=== PATIENT | male | born 1955 | race Caucasian/White ===

== ENCOUNTER 2020-02-01 10:39 | Outpatient (REF) | payer MEDICARE, SELFPAY ==
[2020-02-01 13:29] LABS: Basophils Percent Auto 0.3 % (0-2); Eosinophils Absolute Auto 0.2 X10*3/uL (0.0-0.4); Eosinophils Percent Auto 3.4 % (0-4); Hematocrit 40.1 % (42-52); Hemoglobin 13.6 g/dl (14.0-18.0); Imm Gran Abs Auto 0.02 X10*3/uL (0.00-0.03); Imm Gran Pct Auto 0.3 % (0.0-0.4); Lymphocytes Percent Auto 17.7 % (20-40); MANUAL DIFF FLAG NO; Mean Corpuscular HGB Conc 33.9 g/dl (31.0-36.0); Mean Corpuscular Hemoglobin 32.2 pg (27.0-33.0); Mean Platelet Volume 9.2 fL (9.4-12.4); Monocytes Absolute Auto 0.6 X10*3/uL (0.1-1.2); Monocytes Percent Auto 10.5 % (2-11); Neutrophils Percent Auto 67.8 % (45-73); Platelet Count 325 X10*3/uL (160-400); Red Blood Count 4.22 X10*6/uL (4.60-5.80); Red Cell Distribution Width 11.9 % (11.0-16.0); White Blood Count 5.8 X10*3/uL (4.8-10.8)
[2020-02-01 14:07] LABS: Creatinine Urine 125.42 mg/dL; Microalbum/Creatinine Ratio Ur 62.1 ug/mg cr
[2020-02-01 14:13] LABS: Alanine Aminotransferase 46 U/L (0-40); Albumin Level 3.4 g/dL (3.5-5.0); Alkaline Phosphatase 164 U/L (39-117); Anion Gap 14 (12-20); Aspartate Amino Transferase 20 U/L (5-37); Bilirubin Total 0.9 mg/dL (0.0-1.0); Blood Urea Nitrogen 27 mg/dL (9-16); Calcium 8.8 mg/dL (8.4-10.2); Carbon Dioxide 28 mmol/L (22-29); Chloride 102 mmol/L (96-108); Cholesterol 187 mg/dL; Estimated Glomerular Filt Rate 58; Glucose Fasting 115 mg/dL (60-99); HDL Cholesterol 23 mg/dL; LDL Cholesterol Calculated 141 mg/dl; Potassium 4.8 mmol/l (3.3-5.1); Sodium 139 mmol/L (135-145); Total Protein 6.5 g/dL (6.5-8.0); Triglycerides 116 mg/dL
[2020-02-01 14:27] LABS: TSH reflex Free T4 4.35 mIU/mL (0.32-4.0)
[2020-02-01 15:01] LABS: Free T4 (Free Thyroxine) 1.01 ng/dL (0.71-1.85)
== END 2020-02-01 10:40 | disposition home or self-care (01) ==
LOC: HO.WFDLDS 10:39
PROVIDERS: PCP Family Medicine; Visit Provider Family Medicine
DX: Z00.00 Encounter for general adult medical examination without abnormal findings (principal); N18.2 Chronic kidney disease, stage 2 (mild); I12.9 Hypertensive chronic kidney disease with stage 1 through stage 4 chronic kidney disease, or unspecified chronic kidney disease; N17.9 Acute kidney failure, unspecified; I63.9 Cerebral infarction, unspecified; E78.5 Hyperlipidemia, unspecified
CPT/HCPCS: 36415; 80053; 80061; 82043; 84439; 84443; 85025

== ENCOUNTER 2020-02-07 | Outpatient (REF) | payer MEDICARE, SELFPAY | END 2020-02-07 00:01 | disposition home or self-care (01) | LOC: HO.LNP | PROVIDERS: Visit Provider Family Medicine | DX: T83.511A Infection and inflammatory reaction due to indwelling urethral catheter, initial encounter (principal) | CPT/HCPCS: 87086; 87088; 87186 ==

== ENCOUNTER 2020-02-07 18:07 | Emergency (ER) | payer MEDICARE, MEDICAID, SELFPAY ==
[2020-02-07 19:50] VITALS: BP 107/70; PULSE 78; RESP 14; TEMP 35.4; O2SAT 97; BMI 27.3
--- NOTE | 2020-02-07 21:15 | ED_ITS ---
HPI - Male Genitourinary General Chief complaint: Urogenital-Male Stated complaint: Catheter change Time Seen by Provider: 02/07/20 18:35 Source: patient and family Mode of arrival: ambulatory Limitations: no limitations History of Present Illness HPI Narrative: Patient comes to the emergency room requesting that his Walker catheter gets changed. Patient had a stroke approximately 2 months ago, patient has a Walker catheter since then. Patient moved from [place] 1 week ago. Patient is due for a catheter change. Patient was seen by his primary care physician today, instructed to come to the ED for a Walker change. Patient's PCP sent to the pharmacy a prescription of cephalexin for a known UTI, the family already picked up the antibiotic at home, the patient has not started yet taking antibiotic. Patient has no complaints, no abdominal pain, no flank pain. Related Data Previous Rx's Medication Instructions Recorded aspirin 81 mg tablet,delayed 81 mg PO DAILY 90 Days #90 tab 02/07/20 release atorvastatin 80 mg tablet 80 mg PO QPM 90 Days #90 tab 02/07/20 cephalexin 500 mg capsule 500 mg PO Q12H 10 Days #20 cap 02/07/20 hydralazine 25 mg tablet 25 mg PO TID 90 Days #270 tab 02/07/20 labetalol 100 mg tablet 100 mg PO BID 90 Days #180 tab 02/07/20 losartan 100 mg tablet 100 mg PO DAILY 90 Days #90 tab 02/07/20 nifedipine 30 mg tablet,extended 30 mg PO DAILY 90 Days #90 tab 02/07/20 release 24 hr rivaroxaban 2.5 mg tablet 2.5 mg PO BID 90 Days #180 tab 02/07/20 zinc oxide 13 % topical cream 1 appl TOPICAL BID-QID PRN 30 Days 02/07/20 #454 g Allergies Allergy/AdvReac Type Severity Reaction Status Date / Time No Known Allergies Allergy Verified 01/31/20 15:24 Review of Systems Review of Systems: Constitutional : No Weight loss, No Fever, No Chills, No Night Sweats, No Fatigue, No Malaise ENT/Mouth : No Hearing loss, No Ear Pain, No Nasal Congestion, No Sinus Pain, No Hoarseness, No sore throat, No Rhinorrhea, No Swallowing Difficulty Eyes: No Eye Pain, No Swelling, No Redness, No Foreign Body, No Discharge, No Vision Changes Cardiovascular : No Chest Pain, No SOB, No Dyspnea on Exertion, No Orthopnea, No Edema, No Palpitations Respiratory : No Cough, No Sputum, No Wheezing, No Smoke Exposure, No Dyspnea Gastrointestinal : No Nausea, No Vomiting, No Diarrhea, No Constipation, No abdominal Pain, No Hematochezia, No Melena Genitourinary : no irregular bleeding, No Dysuria, No Urinary Frequency, No Hematuria, No Urinary Incontinence, No Urgency, No Flank Pain, No Urinary Flow Changes, No Hesitancy Musculoskeletal : No joint pain, No Myalgias, No Joint Swelling Skin : No Skin Lesions, No rash Neuro : No Weakness, No Numbness, No Paresthesias, No Loss of Consciousness, No Dizziness, No Headache Psych : No Anxiety/Panic, No Depression, No SI/HI/AH/VH, No Social Issues, Heme/Lymph: No Bruising, No Bleeding,No Lymphadenopathy Endocrine : No Polyuria, No Polydipsia, No Temperature Intolerance [facility] Past Medical History Medical History (Updated 02/07/20 @ 22:13 by Susy Salazar MD) High cholesterol HTN (hypertension) Stroke Social History Social History Advance Directives: No Advance Directives Information Provided: Yes Physical Exam Vital Signs: Vital Signs: Last Vital Signs Temp 95.8 F L 02/07/20 19:50 Pulse 78 02/07/20 19:50 Resp 14 02/07/20 19:50 BP 107/70 02/07/20 19:50 Pulse Ox 97 02/07/20 19:50 Body Mass Index 27.3 Appearance: Alert. Oriented X3. No acute distress. Eyes: Pupils equal, round and reactive to light. ENT: Pharynx normal. Neck: Normal inspection. Neck supple. No lymph nodes noted. No crepitus CVS: Normal heart rate and rhythm. Pulses normal. Normal S1 and S2 Respiratory: No respiratory distress. Breath sounds normal. No Wheezing. No rales Abdomen: Soft and nontender. No rigidity. No distention. good BS x4 Urinary: Walker catheter in place Skin: Skin warm and dry. Normal skin color. Normal skin turgor. Extremities: No lower extremity edema. No lower extremity edema. No Lacerations. No Rash Neuro: Oriented X 3. No motor deficit. No sensory deficit. Moving all extermities. No slurred speech. Course Course Course Narrative: Walker catheter was changed, as mentioned above, patient already has antibiotics at home for his UTI. MDM - Male Genitourinary Lab Data Labs: Lab Results 02/07/20 Range/Units 21:29 Urine Color YELLOW Urine Appearance CLOUDY Urine pH 7.0 (5.0-8.0) Ur Specific [place] 1.015 (1.005-1.025) Urine Protein TRACE (NEG-TRACE) MG/DL Urine Glucose (UA) NEG (NEG) MG/DL Urine Ketones NEG (NEG) MG/DL Urine Blood TRACE (NEG) Urine Nitrite POS H (NEG) Ur Leukocyte Esterase 3+ H (NEG) Urine RBC 1-4 (0) /HPF Urine WBC 50-75 H (0-4) /HPF Ur Squamous Epith Cells TRACE /LPF Amorphous Sediment 1+ /LPF Urine Bacteria 3+ /LPF Discharge Plan Discharge Clinical Impression: Urinary catheter (Walker) change required Patient Disposition: Home, Self-Care Instructions: Walker Catheter Placement and Care (ED) Additional Instructions: Please start taking the antibiotics as instructed by your primary care physician. Insert discharge Prescriptions: No Action aspirin [Adult Low Dose Aspirin] 81 mg tablet,delayed release (DR/EC) 81 mg PO DAILY 90 Days Qty: 90 RF: 4 atorvastatin 80 mg tablet 80 mg PO QPM 90 Days Qty: 90 RF: 4 hydralazine 25 mg tablet 25 mg PO TID 90 Days Qty: 270 RF: 4 labetalol 100 mg tablet 100 mg PO BID 90 Days Qty: 180 RF: 4 losartan 100 mg tablet 100 mg PO DAILY 90 Days Qty: 90 RF: 4 nifedipine 30 mg tablet extended release 24hr 30 mg PO DAILY 90 Days Qty: 90 RF: 4 Xarelto 2.5 mg tablet 2.5 mg PO BID 90 Days Qty: 180 RF: 4 cephalexin [Keflex] 500 mg capsule 500 mg PO Q12H 10 Days Qty: 20 RF: 0 Desitin Rapid Relief 13 % cream 1 appl topical BID-QID PRN (Reason: skin irritation) 30 Days Qty: 454 RF: 0 Interventions: ED Discharge Assessment Last Done: 02/07/20 22:11
[2020-02-07 21:36] LABS: Glucose Urine UA NEG (NEG); Leukocyte Esterase Urine 3+ (NEG); Nitrite Urine POS (NEG); Specific Gravity - Urine 1.015 (1.005-1.025); Urine Blood TRACE (NEG); Urine Ketones NEG (NEG); Urine Protein TRACE MG/DL (NEG-TRACE)
[2020-02-07 21:45] LABS: Appearance Urine CLOUDY; Color Urine YELLOW
[2020-02-07 21:50] LABS: Amorphous Sediment Urine 1+ /LPF; Bacteria Urine 3+ /LPF; Squamous Epithelial Cell Urine TRACE /LPF; WBC Urine 50-75 /HPF (0-4)
== END 2020-02-07 22:29 | disposition home or self-care (01) ==
PROVIDERS: Physician Assistant; Emergency Provider Emergency Medicine
DX: Z46.6 Encounter for fitting and adjustment of urinary device (principal); I10 Essential (primary) hypertension
CPT/HCPCS: 51702; 81001; 87086; 87088; 87186; 99283

== ENCOUNTER 2020-03-04 14:32 | Outpatient (REF) | payer OTHER, SELFPAY ==
--- NOTE | 2020-03-04 14:34 | FL_ITS ---
EXAMINATION: XR BARIUM SWALLOW CLINICAL INFORMATION: Stroke. COMPARISON: None TECHNIQUE: Fluoroscopic guidance was provided for modified barium swallow performed by the speech and hearing department. FINDINGS: Modified barium swallow was performed following administration of thin and thick liquids and thickened liquid. There is significant retention in the vallecula with all media. No aspiration or penetration is seen. FLUOROSCOPY TIME: 2.3 minutes DOSE AREA PRODUCT: 2.3 lawson per centimeter squared. Total dose 7.7 mgy FL/FL barium swallow modified IMPRESSION: Significant retention seen with all administered liquids. No aspiration or penetration is seen. See speech and hearing report for detailed findings.
--- NOTE | 2020-03-11 17:23 | MHC.SL.POC ---
Name: Wyatt Boggs Date of : 1955 Age: 64 Status: Outpatient, Wheelchair Date of Registration: 03/04/20 Referring provider: Blake Faith M.D. Evaluating Clinician: Danielle Avery M.A. CCC-SURVEILLANCE SUPERVISOR Reason for Referral: Patient displays overt s/s of aspiration. Type of Treatment: 32498 Modified Barium Swallow Study Date of Plan of Treatment: 03/04/20 Onset of Symptoms/Illness: 01/05/20 Date Treatment Started: 03/04/20 Medical Diagnosis: Previous stroke 01/05/20, residual right hemiplegia, Walker catheter Speech & Language Primary Diagnosis:R13.12 Oropharyngeal Phase Dysphagia Speech & Language Secondary Diagnosis: R47.01 Aphasia Current (pre-evaluation) Intake/Diet: Route: PO Diet Grade: Puree Liquid Consistencies: Thin Pre-Study Functional Oral Intake Scale (FOIS): 5- Total oral intake of multiple consistencies requiring special preparation Pain: None reported at time of study SUBJECTIVE: Patient is a 64 year old man who was accompanied to this evaluation by his son, who reports being his primary patient service rep, and [id number]. Most of history obtained at this evaluation was provided by patient?s [id number]. Per family report, patient had a stroke on January 05, 2020 in [place] when visiting, and was discharged on the with hospice care. Patient has residual right side hemiplegia. Patient has a Walker catheter. Per [id number]?s report, patient was originally recommended rehabilitative services after his stroke, but instead was referred for homecare due to risks of the current COVID19 pandemic. Patient is immobile and wheelchairbound. Per family, he tolerates being in a wheelchair for one hour at most. He is nonverbal, and only vocalizes with grunts and groans. His family is unsure how much he understands because his responses to yes/no questions are very inconsistent. Patient?s family has been pureeing his food because he is unable to swallow solids. When given rice, which had been one of patient?s favorite foods previously, patient spits it out. He also spits out food if given too much. Patient?s family reports that he appears to tolerate liquids without difficulty. OBJECTIVE: Time-out: performed at 02:45 Evaluation Start: 02:30; Stop: 02:40 Patient Positioning: Seated 70-90 degrees Viewing Planes: LATERAL ONLY Contrast: MBSImP? Standardized Protocol using commercially prepared, standardized Barium viscosities, including: Varibar? THIN LIQUID (40% w/v, <15 cps) , Varibar? NECTAR (40% w/v, <150-450 cps) , Varibar? THIN HONEY (40% w/v, <800-1800 cps) , 1/2 Shortbread Cookie (1 x1 x.25 ) [facility] [id number] Results: Lip closure for intraoral bolus containment resulted in interlabial escape, without progression to the anterior lip. Tongue control during bolus hold resulted in posterior escape of less than half of the bolus. Bolus preparation and mastication was only minimal chewing/mashing, with the majority of the bolus unchewed. Bolus transport/lingual motion was with repetitive/disorganized motion of the tongue. Oral residue was a collection on oral structures. Initiation of the pharyngeal swallow was not visible at any level. Soft palate elevation resulted in no bolus between the soft palate and the pharyngeal wall. Laryngeal elevation was decreased, with partial superior movement of the thyroid cartilage/partial approximation of the arytenoids to the epiglottic petiole. Anterior hyoid excursion demonstrated partial anterior movement. Epiglottic movement resulted in complete inversion. Laryngeal vestibular closure was complete, as indicated by no air or contrast within the laryngeal vestibule at the height of the swallow. Pharyngeal stripping wave was present, but diminished. Pharyngeal contraction could not be determined due to logistical reasons not related to physiologic impairment. Pharyngoesophageal segment opening was completely distended for complete duration with no obstruction of bolus flow. Tongue base retraction resulted in no visible posterior motion of the the tongue base. Pharyngeal residue was a collection of residue within or on pharyngeal structures. Esophageal clearance in the upright position could not be assessed due to logistical reasons not related to physiologic impairment. Oral Impairment Score: 14 Pharyngeal Impairment Score: 9 (absence of score, component 13) Esophageal Impairment Score: --- (absence of score, component 17) Laryngeal Penetration and Aspiration: Neither penetration nor aspiration was observed in today's study with Cookie, Honey-thick, [place]-thick, Thin. ASSESSMENT: Patient?s [place] language is Grenadian. Directions for this exam were provided in Grenadian by bilingual clinician. Patient was also provided with consistent visual cues to swallow. However, patient did not follow commands due to reduced receptive language ability. This exam was conducted by radiologist and speech-language pathologist with patient sitting at 90 degree position for lateral view only. Patient was provided with 1:1 assistance feeding. The following liquid and solid consistencies were trialed: -honey thick liquid barium by spoon -nectar thick liquid barium by spoon and straw -thin liquid barium by spoon and straw -pureed solid (applesauce mixed with barium paste) -ground solid (chicken salad mixed with barium paste) Advanced solids were withheld due to oral phase impairments and impairments in receptive language, which would impact patient?s ability to implement compensatory strategies if needed. Patient displays severe oropharyngeal dysphagia, likely secondary to previous stroke, with impairments in the following components of swallow physiology: ORAL PHASE: -posterior escape of bolus for both solids and liquids -minimal chewing when given very small bite of chicken salad -repetitive posterior tongue motion -mild oral residue -no visible initiation of pharyngeal swallow trigger PHARYNGEAL PHASE: -partial laryngeal elevation with partial anterior hyoid movement -diminished pharyngeal stripping wave -no visible posterior tongue base movement -collection of bolus in valleculae Clinician Assessment: No aspiration or penetration evident with solid and liquid trials during this exam. Evident posterior escape of bolus, less than 50%, which pooled in valleculae. Patient displays significant delays in oral preparation. AP transport was delayed and characterized by repetitive posterior tongue movement. Patient?s pharyngeal swallow trigger was significantly delayed, taking 1-2 minutes and consistent cues to initiate. Entire bolus collected in valleculae with no visible initiation of swallow trigger at times despite verbal commands and visual cues to swallow. Patient was given dry spoon in attempt to elicit dry swallow, but this was not effective. Patient was given more food on a spoon and this successfully initiated swallow trigger. Noted improvement in timing of pharyngeal swallow when patient is given more on a spoon (full teaspoon amount). This puts patient at risk for aspiration before and after the swallow, and warrants intervention for dysphagia for continued family education/support, and review of compensatory strategies. Patient is not a candidate for pharyngeal strengthening exercises as he will likely exhibit difficulty following complex directions involved. Recommend continue PUREED solids and THIN liquids. Please refer to National Dysphagia Diet Level 1 (NDD1) for recommendations regarding food preparation. Improved initiation when patient was given full teaspoon amount versus half teaspoon amount. Strongly recommend aspiration precautions: -small bites -one bite at a time -palpate or watch for laryngeal elevation to ensure patient had swallowed before giving more bites -check oral cavity to ensure clearance -small sips -one sip at a time -optimal position at 90 degree angle during PO intake and for at least 30 minutes afterward -frequent oral care before and after each meal The following compensatory strategies have been used in therapy as well as in today's study and improved swallowing function: Rate of Ingestion Change decreased Oral Residue, Pharyngeal Residue Additional Swallow(s) per Bolus decreased Oral Residue, Pharyngeal Residue The following compensatory strategies appear to have had a negative impact on swallowing function: Bolus Volume Change (smaller/ half teaspoon amount) increased Pharyngeal Residue PLAN: Intake Recommendations: Route: PO Diet Grade: Puree Liquid Consistencies: Thin Post-Study Functional Oral Intake Scale (FOIS): 5- Total oral intake of multiple consistencies requiring special preparation Suggested Referrals: The patient might benefit from a referral to: -[facility]: Indication for Referral: speech therapy through [facility] for dysphagia and functional communication -Gastroenterology/ Nutrition Indication for Referral: assess nutrition needs -Neurology Indication for Referral: for ongoing care Therapy Recommendations: Therapy will be initiated Frequency per Week: 1 Number of Weeks: 8 Prognosis for Improvement: The prognosis for the patient to meet nutritional needs by mouth is guarded based on degree of impairment, stimulability for treatment. Nursing Home Goals: ? The patient will tolerate the least restrictive diet with a safe/efficient swallow to maintain adequate nutrition and hydration. ? The patient and/or family will participate in further education for swallowing goals. Short Term Goals: GOALS REGARDING DYSPHAGIA AND FUNCTIONAL COMMUNICATION TO BE UPDATED NEEDED PER SURVEILLANCE SUPERVISOR AT NEXT LEVEL OF CARE ([facility]) ? Diet - The patient will tolerate a pureed diet with thin liquids without signs or symptoms of penetration/aspiration 100% of the time. - The patient will participate in therapeutic PO trials with the SURVEILLANCE SUPERVISOR. ? Guidelines - The patient will comply with/recall the following guidelines/strategies 80% of the time with maximum cuing: Bolus Volume Change, Rate of Ingestion Change, Liquid Wash, Additional Swallow(s) per Bolus. ? Education - The patient, family, caregiver will verbalize/demonstrate understanding of the results of this evaluation, the above recommendations, and the swallowing guidelines. Clinician - Supplemental, Miscellaneous Communication: It is important to note MBSS objective studies are snapshots in time and Patient function might vary with factors such as time of day or concomitant medical conditions. For this reason, the final treatment plan for this patient should rest with their medical care team. Additional recommendations should be considered with the totality of the Patient in mind. Thank for the opportunity to participate in the care of this patient. If you have any questions about the content of this report, please contact the [facility] at [facility]. Education: Education regarding findings from today's study and plans for therapy were provided to Family/caregiver only through Verbal Instruction. Understanding was expressed by the Family/caregiver only. Recommendation for Speech Therapy: Speech Therapy through [facility] Text Comment: It is strongly recommended for patient to continue speech therapy through [facility]. Patient has 14/09 care provided by son and [id number]. Patient is immobile and wheelchair-bound. He is nonverbal as a result of his stroke in December. Due to increased medical needs, [facility] services appear to be most appropriate. Recommend speech therapy for DYSPHAGIA and FUNCTIONAL COMMUNICATION. Frequency/Duration: TBD after further assessment by [facility] Date Range for Service Requested: Timeline to reassess: 3 months Notes: Recommend continue PUREED solids and THIN liquids. Please refer to National Dysphagia Diet Level 1 (NDD1) for recommendations regarding food preparation. Improved initiation when patient was given full teaspoon amount versus half teaspoon amount. Strongly recommend aspiration precautions: -small bites -one bite at a time -palpate or watch for laryngeal elevation to ensure patient had swallowed before giving more bites -check oral cavity to ensure clearance -small sips -one sip at a time -optimal position at 90 degree angle during PO intake and for at least 30 minutes afterward -frequent oral care before and after each meal The following compensatory strategies have been used in therapy as well as in today's study and improved swallowing function: Rate of Ingestion Change decreased Oral Residue, Pharyngeal Residue Additional Swallow(s) per Bolus decreased Oral Residue, Pharyngeal Residue The following compensatory strategies appear to have had a negative impact on swallowing function: Bolus Volume Change (smaller/ half teaspoon amount) increased Pharyngeal Residue PLAN: Intake Recommendations: Route: PO Diet Grade: Puree Liquid Consistencies: Thin Post-Study Functional Oral Intake Scale (FOIS): 5- Total oral intake of multiple consistencies requiring special preparation Suggested Referrals: The patient might benefit from a referral to: -[facility]: Indication for Referral: speech therapy through [facility] for dysphagia and functional communication -Gastroenterology/ Nutrition Indication for Referral: assess nutrition needs -Neurology Indication for Referral: for ongoing care Therapy Recommendations: Therapy will be initiated Frequency per Week: 1 Number of Weeks: 8 Prognosis for Improvement: The prognosis for the patient to meet nutritional needs by mouth is guarded based on degree of impairment, stimulability for treatment. Goal #1 : Nursing Home Goals: ? The patient will tolerate the least restrictive diet with a safe/efficient swallow to maintain adequate nutrition and hydration. ? The patient and/or family will participate in further education for swallowing goals. Status of Goal #1 : New Goal Objectives/Clinical Observations: ? Diet - The patient will tolerate a pureed diet with thin liquids without signs or symptoms of penetration/aspiration 100% of the time. - The patient will participate in therapeutic PO trials with the SURVEILLANCE SUPERVISOR. ? Guidelines - The patient will comply with/recall the following guidelines/strategies 80% of the time with maximum cuing: Bolus Volume Change, Rate of Ingestion Change, Liquid Wash, Additional Swallow(s) per Bolus. ? Education - The patient, family, caregiver will verbalize/demonstrate understanding of the results of this evaluation, the above recommendations, and the swallowing guidelines. Outpatient Program Coordinator Clinican/Clinical Fellow: No Supervisory Statement: I have reviewed and agree with the documentation written by the student/clinical fellow: N/A Speech Language Pathologist: Danielle Avery M.A., [facility]-SURVEILLANCE SUPERVISOR
== END 2020-03-04 14:33 | disposition home or self-care (01) ==
LOC: HO.XRAY 14:32
PROVIDERS: Visit Provider Family Medicine
DX: R47.1 Dysarthria and anarthria (principal); R13.10 Dysphagia, unspecified; Z86.73 Personal history of transient ischemic attack (TIA), and cerebral infarction without residual deficits
CPT/HCPCS: 74230; 92611

== ENCOUNTER 2020-03-07 15:10 | Emergency (ER) | payer OTHER, SELFPAY ==
[2020-03-07 15:35] VITALS: BP 96/65; PULSE 85; RESP 16; TEMP 36.1; O2SAT 97; BMI 28.0
--- NOTE | 2020-03-07 16:47 | ED_ITS ---
HPI - Male Genitourinary General Chief complaint: Urogenital-Male Stated complaint: Walker change Time Seen by Provider: 03/07/20 16:46 Source: patient and family Limitations: language barrier History of Present Illness HPI Narrative: 64 y/o male with history of CVA 3 months ago with now chronic Walker catheter and right sided deficits, stage I coccyx wound, HTN, HLD who presents for routine Walker change. He was last seen here on 02/06 for the same. No issues with the Walker at home, draining normally although the urine is slightly cloudy. No fever, chills, nausea, abdominal pain or suprapubic pain. Related Data Previous Rx's Medication Instructions Recorded aspirin 81 mg tablet,delayed 81 mg PO DAILY 90 Days #90 tab 02/07/20 release atorvastatin 80 mg tablet 80 mg PO QPM 90 Days #90 tab 02/07/20 cephalexin 500 mg capsule 500 mg PO Q12H 10 Days #20 cap 02/07/20 hydralazine 25 mg tablet 25 mg PO TID 90 Days #270 tab 02/07/20 labetalol 100 mg tablet 100 mg PO BID 90 Days #180 tab 02/07/20 losartan 100 mg tablet 100 mg PO DAILY 90 Days #90 tab 02/07/20 rivaroxaban 2.5 mg tablet 2.5 mg PO BID 90 Days #180 tab 02/07/20 zinc oxide 13 % topical cream 1 appl TOPICAL BID-QID PRN 30 Days 02/07/20 #454 g nifedipine 30 mg tablet,extended 30 mg PO DAILY 90 Days #90 tab 02/14/20 release 24 hr cefuroxime axetil 250 mg PO BID 7 Days #14 tab 03/07/20 Allergies Allergy/AdvReac Type Severity Reaction Status Date / Time No Known Allergies Allergy Verified 01/31/20 15:24 Review of Systems Review of Systems: Constitutional: No Fever, No Chills Cardiovascular: No Chest Pain, No SOB Respiratory: No Cough, No Sputum, No Wheezing, No dyspnea Gastrointestinal: No Nausea, No Vomiting, No Diarrhea, No abdominal Pain Genitourinary: No Dysuria, No Urinary Frequency, No Hematuria Skin: No Skin Lesions, No rash Neuro: + Weakness (chronic), No Numbness, No Dizziness, No Headache PMFSH Past Medical History Attestation statement: The following information was validated with the patient. Medical History High cholesterol HTN (hypertension) Stroke Social History Social History Smoked in Last 30 Days: No Use of substances other than those prescribed or required for medical reasons: No Advance Directives: No Advance Directives Information Provided: Yes Physical Exam Vital Signs: Vital Signs: Last Vital Signs Temp 97 F 03/07/20 15:35 Pulse 85 03/07/20 18:00 Resp 16 03/07/20 18:00 BP 108/74 03/07/20 18:00 Pulse Ox 99 03/07/20 18:00 Body Mass Index 28.0 Appearance: Alert. No acute distress. Eyes: Pupils equal, round and reactive to light. ENT: Pharynx normal. Neck: Normal inspection. Neck supple. CVS: Normal heart rate and rhythm. Pulses normal. Respiratory: No respiratory distress. Breath sounds normal. Abdomen: Soft and nontender. +BS x4 Skin: Skin warm and dry. Normal skin color. Normal skin turgor. No rashes. Extremities: No lower extremity edema. Neuro: awake, alert, right sided hemiparesis Course Course Course Narrative: 64 y/o male with history of CVA with right sided hemiparesis, chronic urinary retention with chronic Walker who presents for Walker change 15 days after recommended change. Walker was exchanged without incident while in the ER. UA sent off new Walker - appears infected with cloudy urine. Will treat with Ceftin. Hx E. coli sensitive for cephalosporins. He is not septic at this time. Per family member VNA services are being arranged at home for future Walker changes. He is stable for discharge. MDM - Male Genitourinary Differential Diagnosis Differential diagnosis: Likely urinary tract infection and acute retention of urine Lab Data Labs: Lab Results 03/07/20 Range/Units 17:34 Urine Color [place] Urine Appearance CLOUDY Urine pH 5.5 (5.0-8.0) Ur Specific [place] 1.020 (1.005-1.025) Urine Protein 2+ H (NEG-TRACE) MG/DL Urine Glucose (UA) NEG (NEG) MG/DL Urine Ketones NEG (NEG) MG/DL Urine Blood 3+ H (NEG) Urine Nitrite POS H (NEG) Ur Leukocyte Esterase 2+ H (NEG) Urine RBC TNTC H (0) /HPF Urine WBC TNTC H (0-4) /HPF Ur Squamous Epith Cells NONE /LPF Urine Bacteria 2+ /LPF Critical Care Time Critical Care Time Critical Care Time: No Discharge Plan Discharge Clinical Impression: Urinary catheter (Walker) change required UTI (urinary tract infection) due to urinary indwelling Walker catheter Qualifiers: Indwelling urinary catheter type: indwelling urethral catheter Encounter type: initial encounter Qualified Code(s): T83.511A - Infection and inflammatory reaction due to indwelling urethral catheter, initial encounter Patient Disposition: Home, Self-Care Instructions: Walker Catheter Placement and Care (ED) Additional Instructions: Your urine test showed evidence of urinary tract infection. You are being started on antibiotics while we await the urine culture. Start taking them tomorrow morning, you were given your 1st dose while in the ER. Follow up with your Primary Care Doctor this week. Recommend follow up with Urology for further management of your Walker. Prescriptions: New cefuroxime axetil 250 mg tablet 250 mg PO BID 7 Days Qty: 14 RF: 0 No Action aspirin [Adult Low Dose Aspirin] 81 mg tablet,delayed release (DR/EC) 81 mg PO DAILY 90 Days Qty: 90 RF: 4 atorvastatin 80 mg tablet 80 mg PO QPM 90 Days Qty: 90 RF: 4 hydralazine 25 mg tablet 25 mg PO TID 90 Days Qty: 270 RF: 4 labetalol 100 mg tablet 100 mg PO BID 90 Days Qty: 180 RF: 4 losartan 100 mg tablet 100 mg PO DAILY 90 Days Qty: 90 RF: 4 Xarelto 2.5 mg tablet 2.5 mg PO BID 90 Days Qty: 180 RF: 4 cephalexin [Keflex] 500 mg capsule 500 mg PO Q12H 10 Days Qty: 20 RF: 0 Desitin Rapid Relief 13 % cream 1 appl topical BID-QID PRN (Reason: skin irritation) 30 Days Qty: 454 RF: 0 nifedipine 30 mg tablet extended release 24hr 30 mg PO DAILY 90 Days Qty: 90 RF: 4 Referrals: Hardeep Sevilla MD [Physician] - 1 week (Chronic Walker for urinary retention )
[2020-03-07 17:43] LABS: Glucose Urine UA NEG (NEG); Leukocyte Esterase Urine 2+ (NEG); Nitrite Urine POS (NEG); PH 5.5 (5.0-8.0); Urine Blood 3+ (NEG); Urine Ketones NEG (NEG); Urine Protein 2+ MG/DL (NEG-TRACE)
[2020-03-07 17:47] LABS: Appearance Urine CLOUDY; Color Urine AMBER
[2020-03-07 17:54] LABS: Bacteria Urine 2+ /LPF; RBC Urine TNTC /HPF (0); WBC Urine TNTC /HPF (0-4)
[2020-03-07 18:00] VITALS: BP 108/74; PULSE 85; RESP 16; O2SAT 99
--- NOTE | 2020-03-07 18:03 | PC.NURSE ---
Walker catheter changed and urine spec obtained and sent.
== END 2020-03-07 18:53 | disposition home or self-care (01) ==
PROVIDERS: Physician Assistant; Emergency Provider Emergency Medicine Emergency Medical Services
DX: T83.518A Infection and inflammatory reaction due to other urinary catheter, initial encounter (principal); Y73.2 Prosthetic and other implants, materials and accessory gastroenterology and urology devices associated with adverse incidents; Y92.9 Unspecified place or not applicable; I10 Essential (primary) hypertension; Z86.73 Personal history of transient ischemic attack (TIA), and cerebral infarction without residual deficits; Z79.82 Long term (current) use of aspirin
CPT/HCPCS: 81001; 87086; 87088; 87186; 99284

== ENCOUNTER → 2020-03-22 14:35 | Outpatient (BNVA) | payer OTHER, SELFPAY | PROVIDERS: PCP Family Medicine; Visit Provider Urology | DX: R32 Unspecified urinary incontinence (principal) | CPT/HCPCS: 99202 ==

== ENCOUNTER 2020-04-12 11:53 | Outpatient (REF) | payer OTHER, SELFPAY | END 2020-04-12 11:54 | disposition home or self-care (01) | LOC: HO.WFDLDS 11:53 | PROVIDERS: Visit Provider Internal Medicine | DX: Z20.822 Contact with and (suspected) exposure to COVID-19 (principal) | CPT/HCPCS: 36415; C9803; U0003; U0005 ==

== ENCOUNTER 2020-04-15 19:55 | Emergency (ER) | payer OTHER, SELFPAY ==
--- NOTE | ~2020-04-15 | XR_ITS ---
EXAMINATION: PORTABLE CHEST 1 VIEW CLINICAL INFORMATION: COVID pneumonia . COMPARISON: No recent pertinent prior studies are available for comparison. TECHNIQUE: Portable frontal view of the chest was obtained. FINDINGS: The lungs are hypoexpanded. Minimal increased basilar markings bilaterally may represent atelectasis with this degree of hypoexpansion area No focal infiltrate, effusion, edema, or pneumothorax. Cardiac and mediastinal silhouettes are within normal limits for technique. No acute bony abnormality seen. XR/XR chest 1V IMPRESSION: Hypoexpanded. Minimal basilar markings more likely reflect component of atelectasis. Early infiltrates would be difficult to exclude.
--- NOTE | 2020-04-15 20:15 | ED_ITS ---
HPI - SOB/Dyspnea General Chief Complaint: Abdominal Pain Stated Complaint: Covid + Time Seen by Provider: 04/15/20 20:15 Source: patient Mode of arrival: ambulatory Limitations: other (Dysarthria) History of Present Illness HPI Narrative: Patient history of severe right-sided weakness diagnosed with COVID on 04/12 since then patient has poor oral intake brought by the family for increased lethargy and poor oral intake denies any significant shortness of breath coughing off and on feel nauseated and weak Related Data Previous Rx's Medication Instructions Recorded aspirin 81 mg tablet,delayed 81 mg PO DAILY 90 Days #90 tab 02/07/20 release atorvastatin 80 mg tablet 80 mg PO QPM 90 Days #90 tab 02/07/20 cephalexin 500 mg capsule 500 mg PO Q12H 10 Days #20 cap 02/07/20 hydralazine 25 mg tablet 25 mg PO TID 90 Days #270 tab 02/07/20 labetalol 100 mg tablet 100 mg PO BID 90 Days #180 tab 02/07/20 losartan 100 mg tablet 100 mg PO DAILY 90 Days #90 tab 02/07/20 rivaroxaban 2.5 mg tablet 2.5 mg PO BID 90 Days #180 tab 02/07/20 zinc oxide 13 % topical cream 1 appl TOPICAL BID-QID PRN 30 Days 02/07/20 #454 g nifedipine 30 mg tablet,extended 30 mg PO DAILY 90 Days #90 tab 02/14/20 release 24 hr cefuroxime axetil 250 mg PO BID 7 Days #14 tab 03/07/20 wet wipes #5 units 03/12/20 tamsulosin 0.4 mg capsule 0.4 mg PO BEDTIME 90 Days #90 cap 03/22/20 miscellaneous medical supply #1 ea 03/26/20 miscellaneous medical supply #1 ea 03/26/20 miscellaneous medical supply #1 ea 03/26/20 miscellaneous medical supply #1 ea 03/26/20 gabapentin 300 mg capsule 300 mg PO BEDTIME 30 Days #30 cap 03/27/20 lidocaine 5 % topical patch 2 patch TOPICAL DAILY 30 Days #60 03/27/20 ea miscellaneous medical supply #1 ea 03/27/20 Allergies Allergy/AdvReac Type Severity Reaction Status Date / Time No Known Allergies Allergy Verified 03/27/20 10:45 Review of Systems Review of Systems: Constitutional : No Weight loss, No Fever, No Chills ENT/Mouth : No sore throat, No Rhinorrhea Eyes: No Eye Pain, No Swelling Cardiovascular : No Chest Pain, no palpitations Respiratory : ++Cough, No Sputum, no shortness of breath Gastrointestinal : no Nausea, No Vomiting, No Diarrhea, No abdominal Pain, no black stools Genitourinary : No Dysuria, No Urinary Frequency Musculoskeletal : No joint pain, No Myalgias, No Joint Swelling Skin : No Skin Lesions, No rash Neuro : ++Weakness, No Numbness, No Dizziness, No Headache Psych : No Anxiety/Panic, No Depression Heme/Lymph: No Bruising, No Lymphadenopathy Endocrine : No Polyuria, No Polydipsia All other systems reviewed and are negative [facility] Past Medical History Medical History (Updated 04/15/20 @ 20:50 by Akash Meek MD) COVID-19 High cholesterol HTN (hypertension) Stroke Surgical History No pertinent past surgical history Family History Family History Father No problems noted. Mother No problems noted. Social History Social History Alcohol intake: former Smoking Status: Never smoker Advance Directives: No Advance Directives Information Provided: No Physical Exam Vital Signs: Vital Signs: Last Vital Signs Temp 99.5 F 04/15/20 22:37 Pulse 86 04/15/20 22:37 Resp 18 04/15/20 22:37 BP 105/54 L 04/15/20 22:37 Pulse Ox 99 04/15/20 21:19 Body Mass Index 31.0 Appearance: Alert. Oriented X3. No acute distress. Eyes: Pupils equal, round and reactive to light. ENT: Pharynx normal. Neck: Normal inspection. Neck supple. CVS: Normal heart rate and rhythm. Pulses normal. Respiratory: No respiratory distress. Breath sounds normal. Abdomen: Soft and nontender. Bowel sounds are present, no mass palpable, no CVA tenderness Skin: Skin warm and dry. Normal skin color. Normal skin turgor. Extremities: No lower extremity edema. Neuro: Oriented X 3. Right-sided dense hemiparesis No sensory deficit. MDM - SOB/Dyspnea MDM Narrative Medical decision making narrative: Patient COVID-19 infection came with increased weakness and poor oral intake since COVID diagnosed lab workup showed potassium of 3 otherwise stable labs chest x-ray negative for any infiltrate. Will discharge patient home on nausea medication advised to take drink plenty of fluids and if feeling short of breath follow with PCP or ER Differential Diagnosis Differential diagnosis: Likely pneumonia Medical Records Attestation: I reviewed the patient's medical records. Lab Data Attestation: I reviewed the patient's lab results. Result diagrams: 04/15/20 21:13 04/15/20 21:13 Labs: Lab Results 04/15/20 04/15/20 Range/Units 21:13 21:13 WBC 7.3 (4.8-10.8) X10*3/uL RBC 2.92 L D (4.60-5.80) X10*6/uL Hgb 9.6 L D (14.0-18.0) g/dl Hct 27.5 L D (42-52) % MCV 94.2 (80-98) fL MCH 32.9 (27.0-33.0) pg MCHC 34.9 (31.0-36.0) g/dl RDW 14.5 (11.0-16.0) % Plt Count 192 D (160-400) X10*3/uL MPV 9.4 (9.4-12.4) fL Immature Gran % (Auto) 0.3 (0.0-0.4) % Neut % (Auto) 74.9 H (45-73) % Lymph % (Auto) 17.2 L (20-40) % [place] % (Auto) 7.4 (2-11) % Eos % (Auto) 0.1 (0-4) % Baso % (Auto) 0.1 (0-2) % Lymph # (Auto) 1.3 (1.2-4.9) X10*3/uL [place] # (Auto) 0.5 (0.1-1.2) X10*3/uL Eos # (Auto) 0.0 (0.0-0.4) X10*3/uL Baso # (Auto) 0.0 (0.0-0.2) X10*3/uL Abs Immat Gran (auto) 0.02 (0.00-0.03) X10*3/uL Absolute Neuts (auto) 5.5 (2.0-8.3) X10*3/uL Absolute Nucleated RBC 0.000 (0.0-0.012) X10*3/uL Nucleated RBC % (auto) 0.0 (0.0-0.2) /100WBC Sodium 142 (135-145) mmol/L Potassium 3.0 L (3.3-5.1) mmol/L Chloride 105 (96-108) mmol/L Carbon Dioxide 29 (22-29) mmol/L Anion Gap 11 L (12-20) BUN 29 H (9-16) mg/dL Creatinine 1.35 (0.5-1.4) mg/dL Estim Creat Clear Calc 62.1 Estimated GFR 53 Random Glucose 134 H (60-115) mg/dL Calcium 8.0 L D (8.4-10.2) mg/dL Total Bilirubin 0.8 (0.0-1.0) mg/dL Direct Bilirubin 0.4 (0.0-0.5) mg/dL AST 26 (5-37) U/L ALT 35 (0-40) U/L Alkaline Phosphatase 107 D (39-117) U/L Total Protein 5.7 L (6.5-8.0) g/dL Albumin 3.0 L (3.5-5.0) g/dL Lipase 64 (8-78) U/L Discharge Plan Discharge Prescriptions: No Action (DME) miscellaneous medical supply Misc See Rx Instructions .ROUTE .MEDSUPPLY Qty: 1 RF: 0 (DME) miscellaneous medical supply Misc See Rx Instructions .ROUTE .MEDSUPPLY Qty: 1 RF: 0 (DME) miscellaneous medical supply Misc See Rx Instructions .ROUTE .MEDSUPPLY Qty: 1 RF: 0 (DME) miscellaneous medical supply Misc See Rx Instructions .ROUTE .MEDSUPPLY Qty: 1 RF: 0 cefuroxime axetil 250 mg tablet 250 mg PO BID 7 Days Qty: 14 RF: 0 aspirin [Adult Low Dose Aspirin] 81 mg tablet,delayed release (DR/EC) 81 mg PO DAILY 90 Days Qty: 90 RF: 4 atorvastatin 80 mg tablet 80 mg PO QPM 90 Days Qty: 90 RF: 4 hydralazine 25 mg tablet 25 mg PO TID 90 Days Qty: 270 RF: 4 labetalol 100 mg tablet 100 mg PO BID 90 Days Qty: 180 RF: 4 losartan 100 mg tablet 100 mg PO DAILY 90 Days Qty: 90 RF: 4 Xarelto 2.5 mg tablet 2.5 mg PO BID 90 Days Qty: 180 RF: 4 cephalexin [Keflex] 500 mg capsule 500 mg PO Q12H 10 Days Qty: 20 RF: 0 Desitin Rapid Relief 13 % cream 1 appl topical BID-QID PRN (Reason: skin irritation) 30 Days Qty: 454 RF: 0 nifedipine 30 mg tablet extended release 24hr 30 mg PO DAILY 90 Days Qty: 90 RF: 4 lidocaine [Lidoderm] 5 % adhesive patch,medicated 2 patch topical DAILY 30 Days Qty: 60 RF: 0 gabapentin 300 mg capsule 300 mg PO BEDTIME 30 Days Qty: 30 RF: 0 (DME) miscellaneous medical supply Misc See Rx Instructions .ROUTE .MEDSUPPLY Qty: 1 RF: 0 tamsulosin 0.4 mg capsule 0.4 mg PO BEDTIME 90 Days Qty: 90 RF: 1
[2020-04-15] MEDS: 0.9 % Sodium Chloride 1,000 ML 999 ML IVCONT (21:14)
[2020-04-15] MEDS: ondansetron HCL 4 MG/2 ML VIAL IVPUSH (21:14)
[2020-04-15] MEDS: Famotidine/PF 20 MG/2 ML VIAL IVPUSH (21:17)
[2020-04-15 21:19] VITALS: BP 102/61; PULSE 81; RESP 12; TEMP 38; O2SAT 99; BMI 31.0
[2020-04-15 21:28] LABS: MANUAL DIFF FLAG NO
[2020-04-15 21:29] LABS: Basophils Percent Auto 0.1 % (0-2); Eosinophils Percent Auto 0.1 % (0-4); Hematocrit 27.5 % (42-52); Hemoglobin 9.6 g/dl (14.0-18.0); Imm Gran Abs Auto 0.02 X10*3/uL (0.00-0.03); Imm Gran Pct Auto 0.3 % (0.0-0.4); Lymphocytes Absolute Auto 1.3 X10*3/uL (1.2-4.9); Lymphocytes Percent Auto 17.2 % (20-40); Mean Corpuscular HGB Conc 34.9 g/dl (31.0-36.0); Mean Corpuscular Hemoglobin 32.9 pg (27.0-33.0); Mean Corpuscular Volume 94.2 fL (80-98); Mean Platelet Volume 9.4 fL (9.4-12.4); Monocytes Absolute Auto 0.5 X10*3/uL (0.1-1.2); Monocytes Percent Auto 7.4 % (2-11); Neutrophils Absolute Auto 5.5 X10*3/uL (2.0-8.3); Neutrophils Percent Auto 74.9 % (45-73); Platelet Count 192 X10*3/uL (160-400); Red Blood Count 2.92 X10*6/uL (4.60-5.80); Red Cell Distribution Width 14.5 % (11.0-16.0); White Blood Count 7.3 X10*3/uL (4.8-10.8)
[2020-04-15 21:57] LABS: Alanine Aminotransferase 35 U/L (0-40); Alkaline Phosphatase 107 U/L (39-117); Anion Gap 11 (12-20); Aspartate Amino Transferase 26 U/L (5-37); Bilirubin Direct 0.4 mg/dL (0.0-0.5); Bilirubin Total 0.8 mg/dL (0.0-1.0); Blood Urea Nitrogen 29 mg/dL (9-16); Carbon Dioxide 29 mmol/L (22-29); Chloride 105 mmol/L (96-108); Creatinine Clr Calc Pharmacy 62.1; Estimated Glomerular Filt Rate 53; Glucose Random 134 mg/dL (60-115); Lipase 64 U/L (8-78); Sodium 142 mmol/L (135-145); Total Protein 5.7 g/dL (6.5-8.0)
[2020-04-15 22:37] VITALS: BP 105/54; PULSE 86; RESP 18; TEMP 37.5
[2020-04-15] MEDS: Potassium Bicarbonate/Cit AC 25 MEQ TABLET.EFF PO (23:25)
--- NOTE | 2020-04-15 23:45 | PC.NURSE ---
MD at bedside. Plan for PO Potassium and DC.
[2020-04-16 00:06] VITALS: BP 103/50; PULSE 93; RESP 16; O2SAT 97
== END 2020-04-15 23:45 | disposition home or self-care (01) ==
PROVIDERS: Emergency Provider Internal Medicine
DX: U07.1 COVID-19 (principal); R10.9 Unspecified abdominal pain; R47.1 Dysarthria and anarthria; I10 Essential (primary) hypertension; Z86.73 Personal history of transient ischemic attack (TIA), and cerebral infarction without residual deficits; Z79.82 Long term (current) use of aspirin; Z79.899 Other long term (current) drug therapy; Z79.01 Long term (current) use of anticoagulants
CPT/HCPCS: 36415; 71045; 80048; 80076; 83690; 85025; 96361; 96374; 96375; 99283; 99284; J1100; J2405

== ENCOUNTER 2020-04-25 16:54 | Inpatient (IN) | payer OTHER, SELFPAY ==
[2020-04-25] VITALS (8 sets, daily range): BP systolic 84–119; BP diastolic 47–74; PULSE 87–99; RESP 16–20; TEMP 36–37.3; O2SAT 96–99; BMI 26.4
--- NOTE | ~2020-04-25 | XR_ITS ---
EXAMINATION: XR CHEST CLINICAL INFORMATION: Hypotension. Rule out pneumonia. COMPARISON: 05/08/2016 TECHNIQUE: Frontal view of the chest was obtained. FINDINGS: Normal symmetric lung volumes. No parenchymal consolidation. No pleural effusion. No pneumothorax. Cardiomediastinal silhouette and pulmonary vascularity are within normal limits. No acute osseous abnormalities. XR/XR chest 1V IMPRESSION: No focal consolidation.
--- NOTE | ~2020-04-25 | CT_ITS ---
EXAMINATION: CT HEAD WITHOUT CONTRAST CLINICAL INFORMATION: Mental status change. COMPARISON: None. TECHNIQUE: Contiguous axial imaging was performed from the skull base to vertex without intravenous administration of contrast. Coronal and sagittal reformatted images are performed at the CT scanner. [This CT examination was performed using dose optimization techniques as appropriate, variously including the following: *Automated exposure control *Adjustment of mA and/or kV according to patient size (this includes techniques or standardized protocols for targeted exams where dose is matched to indication/reason for exam; i.e. extremities or head) *Use of iterative reconstruction technique] DLP: 928 mGy-cm. FINDINGS: There are multifocal areas of low attenuation of left MCA territory consistent with old MCA territory infarct. There is no mass effect. No intracranial hemorrhage. There is no extra-axial collection. There is atrophy with prominence of the ventricles and the sulci and hypodensity of the periventricular white matter due to chronic small vessel ischemic disease. There are vascular calcifications of the internal carotid arteries bilaterally. There is no osseous abnormality. There is moderate scattered sinus mucosal disease in the ethmoid sinuses bilaterally. The right frontal sinus is nearly entirely opacified. The mastoid air cells and middle ear cavities are normally aerated. CT/CT head/brain wo con IMPRESSION: 1. Old left MCA territory infarct. MRI of the head would be helpful for further assessment. 2. No acute intracranial hemorrhage.
--- NOTE | ~2020-04-25 | US_ITS ---
EXAMINATION: US ABDOMEN LIMITED CLINICAL INFORMATION: Elevated LFTs. Rule out CBD stones. COMPARISON: None TECHNIQUE: Real-time imaging of the right upper quadrant abdominal viscera. FINDINGS: PANCREAS: Normal. LIVER: Normal. The liver is normal in size. The liver contour is normal. Parenchymal echogenicity is normal. No focal hepatic lesion. There is no intrahepatic biliary duct dilatation seen. GALLBLADDER: Normal. The gallbladder is physiologically distended without evidence of stones, sludge, polyps, wall thickening or pericholecystic fluid. COMMON BILE DUCT: Normal in caliber measuring 0.4 cm in diameter. RIGHT KIDNEY: Normal. No hydronephrosis. No renal calculi or focal parenchymal lesions. The kidney measures 11 cm in maximum dimension. FREE FLUID: None. US/US abdomen limited IMPRESSION: Unremarkable pancreas, liver, gallbladder, CBD and right kidney.
--- NOTE | 2020-04-25 17:08 | ECG_ITS ---
Test Reason : WEAKNESS Blood Pressure : / mmHG Vent. Rate : 089 BPM Atrial Rate : 089 BPM P-R Int : 154 ms QRS Dur : 092 ms QT Int : 366 ms P-R-T Axes : 032 040 025 degrees QTc Int : 445 ms Normal sinus rhythm Normal ECG No significant changes when compared with the previous EKG of april 25 2020 Referred By: Mervat Hoang Electronically Signed By:VINI ROBERT
--- NOTE | 2020-04-25 17:13 | ED.GENADULT ---
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 intake. Unable to get full history from the patient history was collected mostly from family and nursing notes. Patient initially found to be hypotensive but appear comfortable and regarding examiner as per family patient at his baseline. Related Data Home Medications Medication Instructions Recorded Confirmed aspirin 81 mg PO DAILY 04/25/20 04/25/20 atorvastatin 80 mg PO BEDTIME 04/25/20 04/25/20 gabapentin 300 mg PO BEDTIME 04/25/20 04/25/20 hydralazine 25 mg PO TID 04/25/20 04/25/20 labetalol 100 mg PO BID 04/25/20 04/25/20 losartan 100 mg PO DAILY 04/25/20 04/25/20 nifedipine 30 mg PO DAILY 04/25/20 04/25/20 ondansetron 4 mg TRANSLINGUAL Q6H PRN 04/25/20 04/25/20 rivaroxaban [Xarelto] 2.5 mg PO BID 04/25/20 04/25/20 tamsulosin 0.4 mg PO BEDTIME 04/25/20 04/25/20 Allergies Allergy/AdvReac Type Severity Reaction Status Date / Time No Known Allergies Allergy Unverified 11/09/19 16:34 [No Known Allergies*] Review of Systems Review of Systems: Yes Unobtainable due to mental condition PMFSH Social History Social History Alcohol intake: unknown Smoking Status: Unknown if ever smoked Use of substances other than those prescribed or required for medical reasons: Unknown Advance Directives: No Advance Directives Information Provided: No Physical Exam Vital Signs: Vital Signs: Last Vital Signs Temp 97.6 F 04/25/20 18:00 Pulse 91 04/25/20 19:37 Resp 20 04/25/20 19:37 BP 107/58 L 04/25/20 19:37 Pulse Ox 98 04/25/20 19:37 Body Mass Index 26.4 Vital signs have been reviewed as appeared to be correct. Blood pressure initially was hypotensive 2nd blood pressure ( before fluids ) was normal. Heart rate normal. Respiration rate normal. Temperature normal. Oxygen saturation normal. Appearance: Alert and awake, regards examiner. No acute distress. Head: Normal external exam. Normocephalic. Atraumatic. No Oliveira signs noted. No raccoon eyes noted Eyes: PERRLA. EOMI. Conjunctiva and sclera normal. Eyelids normal. ENT: TM's Normal. Pharynx normal. Uvula midline. Dry mucous membrane mucous membranes. No trismus noted. No drooling noted. No muffled voice noted. Neck: Normal inspection. Neck supple. FROM. No adenopathy. Thyroid Normal. No meningeal signs. No neck mass noted. Flat jugular veins. CVS: Normal heart rate and rhythm. Heart sound normal. No murmurs noted. Pulses normal throughout. Respiratory: No respiratory distress. Painless inspiration. Breath sounds normal. No wheezes/rales/rhonchi noted. Chest nontender. No accessory muscle usage noted or decreased air movement noted. Abdomen: Soft and nontender. Bowel sounds normal in all 4 quadrants. No distention noted. No organomegaly noted. No visible injury noted. Back: No CVA tenderness. Full range of motion noted. Skin: Skin warm and dry. Normal skin color. Normal skin turgor. No rashes/lesions/lacerations noted. Extremities: No lower extremity edema. Extremities exhibit normal range of motion. Extremities nontender. Neuro: Old pre-existing right hemiparesis. Course Course Course Narrative: Assessment and plan. 64-year-old male 2 weeks ago diagnosed with COVID, reportedly by family patient is not taking p.o. intake, patient came in initially was hypotensive appeared dry mucous membrane and dehydrated and a physical exam. Sepsis workup was unremarkable. Patient show uncomplicated UTI. Normal lactic acid. Elevation of BUN/creatinine unclear if it is acute versus chronic but patient is responding well to IV hydration. Medical Decision Making Lab Data Lab results reviewed: Yes I reviewed the patient's lab results. Result diagrams: 04/25/20 18:43 04/25/20 18:43 Labs: Lab Results 04/25/20 04/25/20 04/25/20 Range/Units 17:35 17:35 18:43 WBC 8.5 (4.8-10.8) X10*3/uL RBC 2.65 L (4.60-5.80) X10*6/uL Hgb 8.6 L (14.0-18.0) g/dl Hct 25.3 L (42-52) % MCV 95.5 (80-98) fL MCH 32.5 (27.0-33.0) pg MCHC 34.0 (31.0-36.0) g/dl RDW 14.2 (11.0-16.0) % Plt Count 340 (160-400) X10*3/uL MPV 9.2 L (9.4-12.4) fL Immature Gran % (Auto) 0.4 (0.0-0.4) % Neut % (Auto) 79.2 H (45-73) % Lymph % (Auto) 9.8 L (20-40) % [place] % (Auto) 8.8 (2-11) % Eos % (Auto) 1.6 (0-4) % Baso % (Auto) 0.2 (0-2) % Lymph # (Auto) 0.8 L (1.2-4.9) X10*3/uL [place] # (Auto) 0.8 (0.1-1.2) X10*3/uL Eos # (Auto) 0.1 (0.0-0.4) X10*3/uL Baso # (Auto) 0.0 (0.0-0.2) X10*3/uL Abs Immat Gran (auto) 0.03 (0.00-0.03) X10*3/uL Absolute Neuts (auto) 6.7 (2.0-8.3) X10*3/uL Absolute Nucleated RBC 0.000 (0.0-0.012) X10*3/uL Nucleated RBC % (auto) 0.0 (0.0-0.2) /100WBC PT (10.8-13.0) SEC INR (0.9-1.1) APTT (24.1-38.0) SEC Sodium (135-145) mmol/L Potassium (3.3-5.1) mmol/L Chloride (96-108) mmol/L Carbon Dioxide (22-29) mmol/L Anion Gap (12-20) BUN (9-16) mg/dL Creatinine (0.5-1.4) mg/dL Estim Creat Clear Calc Estimated GFR Random Glucose (60-115) mg/dL Lactic Acid (0.5-2.0) mmol/L Calcium (8.4-10.2) mg/dL Total Bilirubin (0.0-1.0) mg/dL Direct Bilirubin (0.0-0.5) mg/dL AST (5-37) U/L ALT (0-40) U/L Alkaline Phosphatase (39-117) U/L Troponin I High Sens (<3.5-35.0) ng/L B-Natriuretic Peptide (<100) pg/mL Total Protein (6.5-8.0) g/dL Albumin (3.5-5.0) g/dL Lipase (8-78) U/L Urine Color YELLOW Urine Appearance CLOUDY Urine pH 5.5 (5.0-8.0) Ur Specific [place] 1.015 (1.005-1.025) Urine Protein TRACE (NEG-TRACE) MG/DL Urine Glucose (UA) NEG (NEG) MG/DL Urine Ketones NEG (NEG) MG/DL Urine Blood TRACE (NEG) Urine Nitrite POS H (NEG) Ur Leukocyte Esterase 2+ H (NEG) Urine RBC 0-2 (0) /HPF Urine WBC 15-29 H (0-4) /HPF Ur Squamous Epith Cells 1+ /LPF Uric Acid Crystals 3+ /LPF Urine Bacteria 2+ /LPF COVID-19 (GISELLE) Positive A (Negative) COVID-19 Clin Com See Note 04/25/20 04/25/20 04/25/20 Range/Units 18:43 18:43 18:43 WBC (4.8-10.8) X10*3/uL RBC (4.60-5.80) X10*6/uL Hgb (14.0-18.0) g/dl Hct (42-52) % MCV (80-98) fL MCH (27.0-33.0) pg MCHC (31.0-36.0) g/dl RDW (11.0-16.0) % Plt Count (160-400) X10*3/uL MPV (9.4-12.4) fL Immature Gran % (Auto) (0.0-0.4) % Neut % (Auto) (45-73) % Lymph % (Auto) (20-40) % Glad[place] % (Auto) (2-11) % Eos % (Auto) (0-4) % Baso % (Auto) (0-2) % Lymph # (Auto) (1.2-4.9) X10*3/uL [place] # (Auto) (0.1-1.2) X10*3/uL Eos # (Auto) (0.0-0.4) X10*3/uL Baso # (Auto) (0.0-0.2) X10*3/uL Abs Immat Gran (auto) (0.00-0.03) X10*3/uL Absolute Neuts (auto) (2.0-8.3) X10*3/uL Absolute Nucleated RBC (0.0-0.012) X10*3/uL Nucleated RBC % (auto) (0.0-0.2) /100WBC PT (10.8-13.0) SEC INR (0.9-1.1) APTT (24.1-38.0) SEC Sodium 139 (135-145) mmol/L Potassium 3.5 (3.3-5.1) mmol/L Chloride 102 (96-108) mmol/L Carbon Dioxide 26 (22-29) mmol/L Anion Gap 15 (12-20) BUN 54 H (9-16) mg/dL Creatinine 2.00 H (0.5-1.4) mg/dL Estim Creat Clear Calc 35.6 Estimated GFR 34 Random Glucose 128 H (60-115) mg/dL Lactic Acid 1.4 (0.5-2.0) mmol/L Calcium 7.9 L (8.4-10.2) mg/dL Total Bilirubin 0.9 (0.0-1.0) mg/dL Direct Bilirubin 0.5 (0.0-0.5) mg/dL AST 53 H (5-37) U/L ALT 65 H (0-40) U/L Alkaline Phosphatase 122 H (39-117) U/L Troponin I High Sens 11.1 (<3.5-35.0) ng/L B-Natriuretic Peptide 65 (<100) pg/mL Total Protein 5.7 L (6.5-8.0) g/dL Albumin 2.7 L (3.5-5.0) g/dL Lipase 62 (8-78) U/L Urine Color Urine Appearance Urine pH (5.0-8.0) Ur Specific [place] (1.005-1.025) Urine Protein (NEG-TRACE) MG/DL Urine Glucose (UA) (NEG) MG/DL Urine Ketones (NEG) MG/DL Urine Blood (NEG) Urine Nitrite (NEG) Ur Leukocyte Esterase (NEG) Urine RBC (0) /HPF Urine WBC (0-4) /HPF Ur Squamous Epith Cells /LPF Uric Acid Crystals /LPF Urine Bacteria /LPF COVID-19 (GISELLE) (Negative) COVID-19 Clin Com 04/25/20 Range/Units 18:43 WBC (4.8-10.8) X10*3/uL RBC (4.60-5.80) X10*6/uL Hgb (14.0-18.0) g/dl Hct (42-52) % MCV (80-98) fL MCH (27.0-33.0) pg MCHC (31.0-36.0) g/dl RDW (11.0-16.0) % Plt Count (160-400) X10*3/uL MPV (9.4-12.4) fL Immature Gran % (Auto) (0.0-0.4) % Neut % (Auto) (45-73) % Lymph % (Auto) (20-40) % Gladwin % (Auto) (2-11) % Eos % (Auto) (0-4) % Baso % (Auto) (0-2) % Lymph # (Auto) (1.2-4.9) X10*3/uL [place] # (Auto) (0.1-1.2) X10*3/uL Eos # (Auto) (0.0-0.4) X10*3/uL Baso # (Auto) (0.0-0.2) X10*3/uL Abs Immat Gran (auto) (0.00-0.03) X10*3/uL Absolute Neuts (auto) (2.0-8.3) X10*3/uL Absolute Nucleated RBC (0.0-0.012) X10*3/uL Nucleated RBC % (auto) (0.0-0.2) /100WBC PT 16.2 H (10.8-13.0) SEC INR 1.4 H (0.9-1.1) APTT 28.9 (24.1-38.0) SEC Sodium (135-145) mmol/L Potassium (3.3-5.1) mmol/L Chloride (96-108) mmol/L Carbon Dioxide (22-29) mmol/L Anion Gap (12-20) BUN (9-16) mg/dL Creatinine (0.5-1.4) mg/dL Estim Creat Clear Calc Estimated GFR Random Glucose (60-115) mg/dL Lactic Acid (0.5-2.0) mmol/L Calcium (8.4-10.2) mg/dL Total Bilirubin (0.0-1.0) mg/dL Direct Bilirubin (0.0-0.5) mg/dL AST (5-37) U/L ALT (0-40) U/L Alkaline Phosphatase (39-117) U/L Troponin I High Sens (<3.5-35.0) ng/L B-Natriuretic Peptide (<100) pg/mL Total Protein (6.5-8.0) g/dL Albumin (3.5-5.0) g/dL Lipase (8-78) U/L Urine Color Urine Appearance Urine pH (5.0-8.0) Ur Specific [place] (1.005-1.025) Urine Protein (NEG-TRACE) MG/DL Urine Glucose (UA) (NEG) MG/DL Urine Ketones (NEG) MG/DL Urine Blood (NEG) Urine Nitrite (NEG) Ur Leukocyte Esterase (NEG) Urine RBC (0) /HPF Urine WBC (0-4) /HPF Ur Squamous Epith Cells /LPF Uric Acid Crystals /LPF Urine Bacteria /LPF COVID-19 (GISELLE) (Negative) COVID-19 Clin Com Imaging Data Chest x-ray: Radiologist's impression: Unremarkable. Discharge Plan Discharge Clinical Impression: Dehydration, Acute UTI Patient Disposition: Admitted As Inpatient
[2020-04-25 18:01] LABS: Glucose Urine UA NEG (NEG); Leukocyte Esterase Urine 2+ (NEG); Nitrite Urine POS (NEG); PH 5.5 (5.0-8.0); Specific Gravity - Urine 1.015 (1.005-1.025); UACC Culture Trigger YES; Urine Blood TRACE (NEG); Urine Ketones NEG (NEG); Urine Protein TRACE MG/DL (NEG-TRACE)
[2020-04-25 18:03] LABS: Appearance Urine CLOUDY; Color Urine YELLOW
[2020-04-25 18:08] LABS: COVID-19 Test Positive (Negative)
[2020-04-25 18:22] LABS: Bacteria Urine 2+ /LPF; RBC Urine 0-2 /HPF (0); Squamous Epithelial Cell Urine 1+ /LPF; Uric Acid Crystals Urine 3+ /LPF
[2020-04-25] MEDS: 0.9 % Sodium Chloride 1,000 ML 999 ML IVCONT (18:32)
[2020-04-25 19:16] LABS: MANUAL DIFF FLAG NO
[2020-04-25 19:29] LABS: Basophils Percent Auto 0.2 % (0-2); Eosinophils Absolute Auto 0.1 X10*3/uL (0.0-0.4); Eosinophils Percent Auto 1.6 % (0-4); Hematocrit 25.3 % (42-52); Hemoglobin 8.6 g/dl (14.0-18.0); Imm Gran Abs Auto 0.03 X10*3/uL (0.00-0.03); Imm Gran Pct Auto 0.4 % (0.0-0.4); Lymphocytes Absolute Auto 0.8 X10*3/uL (1.2-4.9); Lymphocytes Percent Auto 9.8 % (20-40); Mean Corpuscular Hemoglobin 32.5 pg (27.0-33.0); Mean Corpuscular Volume 95.5 fL (80-98); Mean Platelet Volume 9.2 fL (9.4-12.4); Monocytes Absolute Auto 0.8 X10*3/uL (0.1-1.2); Monocytes Percent Auto 8.8 % (2-11); Neutrophils Absolute Auto 6.7 X10*3/uL (2.0-8.3); Neutrophils Percent Auto 79.2 % (45-73); Platelet Count 340 X10*3/uL (160-400); Red Blood Count 2.65 X10*6/uL (4.60-5.80); Red Cell Distribution Width 14.2 % (11.0-16.0); White Blood Count 8.5 X10*3/uL (4.8-10.8)
[2020-04-25 19:31] LABS: INTERNATIONAL NORM RATIO 1.4 (0.9-1.1); Prothrombin Time 16.2 SEC (10.8-13.0)
[2020-04-25 19:34] LABS: Partial Thromboplastin Time 28.9 SEC (24.1-38.0)
[2020-04-25 19:38] LABS: Lactic Acid 1.4 mmol/L (0.5-2.0)
[2020-04-25 19:42] LABS: Alanine Aminotransferase 65 U/L (0-40); Albumin Level 2.7 g/dL (3.5-5.0); Alkaline Phosphatase 122 U/L (39-117); Anion Gap 15 (12-20); Aspartate Amino Transferase 53 U/L (5-37); Bilirubin Direct 0.5 mg/dL (0.0-0.5); Bilirubin Total 0.9 mg/dL (0.0-1.0); Blood Urea Nitrogen 54 mg/dL (9-16); Calcium 7.9 mg/dL (8.4-10.2); Carbon Dioxide 26 mmol/L (22-29); Chloride 102 mmol/L (96-108); Creatinine Clr Calc Pharmacy 35.6; Estimated Glomerular Filt Rate 34; Glucose Random 128 mg/dL (60-115); Lipase 62 U/L (8-78); Potassium 3.5 mmol/L (3.3-5.1); Sodium 139 mmol/L (135-145); Total Protein 5.7 g/dL (6.5-8.0)
[2020-04-25 19:46] LABS: B Type Natriuretic Peptide 65 pg/mL (<100); Troponin-I High Sensitivity 11.1 ng/L (<3.5-35.0)
--- NOTE | 2020-04-25 20:39 | P.HPHOSP_ITS ---
History of Present Illness Date of Service: 04/25/20 Chief Complaint: Poor oral intake 64-year-old male with a past medical history of hypertension, hyperlipidemia, AFib on Xarelto, history of CVA with right-sided hemiparesis, mostly bed-bound, minimally verbal, recent diagnosis of COVID-19 on 04/13/2020 presented to the hospital with a chief complaint of poor oral intake. Spoke to the patient's son at bedside. Reportedly patient has been having decreased oral intake for the past 3 days. Patient denied any chest pain palpitations lightheadedness or dizziness. Denied any numbness tingling. Denied any fever chills cough or shortness of breath. Review of all other systems is negative except mentioned above ER course: Per ER team patient noted to be dehydrated, initial blood pressure was on the soft side, given IV fluids with improvement in blood pressure. Lab showed a KI and UTI. Given ceftriaxone. Admitted to the hospital for further management. FOR[facility], [facility] Social History Household Members: Family Housing: House Do you presently have visiting nurse or other home services: No Unable to assess alcohol history related to: Unknown Alcohol intake: unknown Smoking Status: Unknown if ever smoked Use of substances other than those prescribed or required for medical reasons: Unknown Currently Displaying Signs/Symptoms of Drug Intoxication Withdrawal: No Advance Directives: No Advance Directives Information Provided: No Do you have thoughts of harming others: None Do you have a plan to hurt others: No Plan Recently lost weight without trying: Unsure service: No Current occupational status: disabled Meds Allergies Allergy/AdvReac Type Severity Reaction Status Date / Time No Known Allergies Allergy Unverified 11/09/19 16:34 [No Known Allergies*] Active Medications: Current Medications Generic Name Dose Route Start Last Admin Trade Name Freq PRN Reason Stop Dose Admin Acetaminophen 650 mg 04/25/20 20:07 Acetaminophen 325 Mg Tablet PO Q6H PRN Pain, Mild (Pain Scale 1-3) Aspirin 81 mg 04/26/20 09:00 Aspirin Enteric Coated 81 Mg Tablet. PO DAILY KEE Atorvastatin Calcium 80 mg 04/25/20 21:00 Atorvastatin Calcium 80 Mg Tablet PO BEDTIME [facility] Gabapentin 300 mg 04/25/20 21:00 Gabapentin 300 Mg Capsule PO BEDTIME [facility] Ceftriaxone Sodium 1 gm/ 50 mls @ 100 mls/hr 04/26/20 20:00 Sodium Chloride IV Q24H [facility] Dextrose/Sodium Chloride 1,000 mls @ 100 mls/hr 04/25/20 20:15 D5ns IVCONT .Q10H [facility] Non-Formulary Medication 2.5 mg 04/25/20 21:00 Rivaroxaban [Xarelto] PO BID [facility] Pharmacy Consult 1 each 04/25/20 17:07 Consult Rx Perform Med Rec MISCELLANE ONCE PRN Consult order Senna 17.2 mg 04/25/20 20:07 Sennosides 8.6 Mg Tablet PO BEDTIME PRN Constipation Sodium Chloride 3 ml 04/26/20 00:00 0.9 % Sodium Chloride Flush 3 Ml Syringe IVFLUSH QSHIFT [facility] Tamsulosin HCl 0.4 mg 04/25/20 21:00 Tamsulosin Hcl 0.4 Mg Capsule PO BEDTIME [facility] Home Medications Medication Instructions Recorded Confirmed Last Taken Type aspirin 81 mg PO DAILY 04/25/20 04/25/20 Unknown History atorvastatin 80 mg PO BEDTIME 04/25/20 04/25/20 Unknown History gabapentin 300 mg PO BEDTIME 04/25/20 04/25/20 Unknown History hydralazine 25 mg PO TID 04/25/20 04/25/20 Unknown History labetalol 100 mg PO BID 04/25/20 04/25/20 Unknown History losartan 100 mg PO DAILY 04/25/20 04/25/20 Unknown History nifedipine 30 mg PO DAILY 04/25/20 04/25/20 Unknown History ondansetron 4 mg TRANSLINGUAL Q6H PRN 04/25/20 04/25/20 Unknown History rivaroxaban [Xarelto] 2.5 mg PO BID 04/25/20 04/25/20 Unknown History tamsulosin 0.4 mg PO BEDTIME 04/25/20 04/25/20 Unknown History Physical Exam Vital Signs and Narrative: Vital Signs: Last Vital Signs Temp 97.6 F 04/25/20 18:00 Pulse 91 04/25/20 19:37 Resp 20 04/25/20 19:37 BP 107/58 L 04/25/20 19:37 Pulse Ox 98 04/25/20 19:37 Body Mass Index 26.4 Gen: Appears be in no acute distress HEENT: NCAT, Moist mucosa. Pulmonary: Clear CVS: Normal S1-S2 Abdomen: BS+, Soft, Nontender Extremities: Warm well perfused Neuro: Alert and awake. Right-sided hemiparesis. Results Labs CBC and Chem 7: 04/26/20 05:30 04/27/20 08:28 Labs: Laboratory Results - last 24 hr 04/25/20 04/25/20 04/25/20 17:35 17:35 18:43 MCV 95.5 MCH 32.5 MCHC 34.0 RDW 14.2 Plt Count 340 MPV 9.2 L Immature Gran % (Auto) 0.4 Neut % (Auto) 79.2 H Lymph % (Auto) 9.8 L [place] % (Auto) 8.8 Eos % (Auto) 1.6 Baso % (Auto) 0.2 Lymph # (Auto) 0.8 L [place] # (Auto) 0.8 Eos # (Auto) 0.1 Baso # (Auto) 0.0 Abs Immat Gran (auto) 0.03 Absolute Neuts (auto) 6.7 Absolute Nucleated RBC 0.000 Nucleated RBC % (auto) 0.0 PT INR APTT Anion Gap Estim Creat Clear Calc Estimated GFR Random Glucose Lactic Acid Calcium Total Bilirubin Direct Bilirubin AST ALT Alkaline Phosphatase Troponin I High Sens B-Natriuretic Peptide Total Protein Albumin Lipase Urine Color YELLOW Urine Appearance CLOUDY Urine pH 5.5 Ur Specific [place] 1.015 Urine Protein TRACE Urine Glucose (UA) NEG Urine Ketones NEG Urine Blood TRACE Urine Nitrite POS H Ur Leukocyte Esterase 2+ H Urine RBC 0-2 Urine WBC 15-29 H Ur Squamous Epith Cells 1+ Uric Acid Crystals 3+ Urine Bacteria 2+ COVID-19 (GISELLE) Positive A COVID-19 Clin Com See Note 04/25/20 04/25/20 04/25/20 18:43 18:43 18:43 MCV MCH MCHC RDW Plt Count MPV Immature Gran % (Auto) Neut % (Auto) Lymph % (Auto) [place] % (Auto) Eos % (Auto) Baso % (Auto) Lymph # (Auto) [place] # (Auto) Eos # (Auto) Baso # (Auto) Abs Immat Gran (auto) Absolute Neuts (auto) Absolute Nucleated RBC Nucleated RBC % (auto) PT INR APTT Anion Gap 15 Estim Creat Clear Calc 35.6 Estimated GFR 34 Random Glucose 128 H Lactic Acid 1.4 Calcium 7.9 L Total Bilirubin 0.9 Direct Bilirubin 0.5 AST 53 H ALT 65 H Alkaline Phosphatase 122 H Troponin I High Sens 11.1 B-Natriuretic Peptide 65 Total Protein 5.7 L Albumin 2.7 L Lipase 62 Urine Color Urine Appearance Urine pH Ur Specific [place] Urine Protein Urine Glucose (UA) Urine Ketones Urine Blood Urine Nitrite Ur Leukocyte Esterase Urine RBC Urine WBC Ur Squamous Epith Cells Uric Acid Crystals Urine Bacteria COVID-19 (GISELLE) COVID-19 Clin Com 04/25/20 18:43 MCV MCH MCHC RDW Plt Count MPV Immature Gran % (Auto) Neut % (Auto) Lymph % (Auto) [place] % (Auto) Eos % (Auto) Baso % (Auto) Lymph # (Auto) [place] # (Auto) Eos # (Auto) Baso # (Auto) Abs Immat Gran (auto) Absolute Neuts (auto) Absolute Nucleated RBC Nucleated RBC % (auto) PT 16.2 H INR 1.4 H APTT 28.9 Anion Gap Estim Creat Clear Calc Estimated GFR Random Glucose Lactic Acid Calcium Total Bilirubin Direct Bilirubin AST ALT Alkaline Phosphatase Troponin I High Sens B-Natriuretic Peptide Total Protein Albumin Lipase Urine Color Urine Appearance Urine pH Ur Specific [place] Urine Protein Urine Glucose (UA) Urine Ketones Urine Blood Urine Nitrite Ur Leukocyte Esterase Urine RBC Urine WBC Ur Squamous Epith Cells Uric Acid Crystals Urine Bacteria COVID-19 (GISELLE) COVID-19 Clin Com Imaging Radiologist's Impressions: Impressions Chest X-Ray 04/25/20 17:07 IMPRESSION: No focal consolidation. Assessment and Plan (1) Acute UTI: Problem details: Urinary infection Status: Acute 64-year-old male with a past medical history of hypertension, hyperlipidemia, history of CVA with right-sided hemiparesis, mostly bed-bound, minimally verbal, recent diagnosis of COVID-19 presented to the hospital with a chief complaint of poor oral intake. Noted to be dehydrated, having a KI and UTI. Admitted to the hospital for further management. Failure to thrive: Multifactorial. Nutrition consult. Supportive care. CT head pending UTI: Continue ceftriaxone. Follow up cultures. VI/dehydration: Unknown baseline creatinine. Avoid nephrotoxins. On IV fluids. COVID-19 positive: Stable respiratory status. Saturating 98% on room air. Chest x-ray showed no acute findings. Will continue to monitor. Hypertension: Patient had blood pressure on the soft side on presentation likely secondary to dehydration. On IV fluids. Hold home antihypertensives for now. Monitor vitals. History of AFib: Patient on Xarelto. Will be continued. DVT prophylaxis: MARÍA levi Full code
[2020-04-25] MEDS: cefTRIAXone sodium 1 GM in 0.9 % Sodium Chloride 50 ML IV (22:08)
[2020-04-25] MEDS: Gabapentin 300 MG CAPSULE PO (22:08)
[2020-04-25] MEDS: Tamsulosin HCL 0.4 MG CAPSULE PO (22:08)
[2020-04-25] MEDS: Dextrose 5 % and 0.9 % NaCl 1,000 ML 100 ML IVCONT (22:08)
[2020-04-25] MEDS: Atorvastatin Calcium 80 MG TABLET PO (22:08)
[2020-04-26] VITALS (7 sets, daily range): BP systolic 94–134; BP diastolic 47–72; PULSE 83–98; RESP 14–20; TEMP 36.1–37.6; O2SAT 95–99; BMI 26.4
[2020-04-26 06:02] LABS: Basophils Percent Auto 0.4 % (0-2); Eosinophils Absolute Auto 0.2 X10*3/uL (0.0-0.4); Eosinophils Percent Auto 3.3 % (0-4); Hematocrit 25.7 % (42-52); Imm Gran Abs Auto 0.03 X10*3/uL (0.00-0.03); Imm Gran Pct Auto 0.4 % (0.0-0.4); Lymphocytes Absolute Auto 0.7 X10*3/uL (1.2-4.9); Lymphocytes Percent Auto 9.6 % (20-40); MANUAL DIFF FLAG SCAN; Mean Corpuscular Hemoglobin 33.1 pg (27.0-33.0); Mean Corpuscular Volume 94.5 fL (80-98); Mean Platelet Volume 9.1 fL (9.4-12.4); Monocytes Absolute Auto 0.8 X10*3/uL (0.1-1.2); Neutrophils Absolute Auto 5.1 X10*3/uL (2.0-8.3); Neutrophils Percent Auto 74.3 % (45-73); Platelet Count 344 X10*3/uL (160-400); Red Blood Count 2.72 X10*6/uL (4.60-5.80); SCAN SMEAR FLAG 1; White Blood Count 6.9 X10*3/uL (4.8-10.8)
[2020-04-26 06:33] LABS: Anion Gap 14 (12-20); Blood Urea Nitrogen 46 mg/dL (9-16); Calcium 7.8 mg/dL (8.4-10.2); Carbon Dioxide 24 mmol/L (22-29); Chloride 107 mmol/L (96-108); Creatinine Clr Calc Pharmacy 46.5; Estimated Glomerular Filt Rate 46; Glucose Random 152 mg/dL (60-115); SLIDE REVIEW VERIFIED; Sodium 142 mmol/L (135-145)
[2020-04-26] MEDS: Aspirin Enteric Coated 81 MG TABLET.DR PO (08:36)
[2020-04-26] MEDS: Dextrose 5 % and 0.9 % NaCl 1,000 ML 100 ML IVCONT ×2 (08:37→20:25)
--- NOTE | 2020-04-26 08:49 | MHC.CM.PN ---
CM attempted X2 to reach Son/Al @ [phone], with the assistance of a Contact Center Professional via telephone; Woman who answered the phone appeared to hang up X2. 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 IMM mailed to Son's address and a copy has been placed on the chart. CM unsure who PCP is and if there is a HCP.
--- NOTE | 2020-04-26 09:50 | MHC.CM.PN ---
[facility] CM/ASHVIN returned CM call. Patient lives with his Son/HCP/Al @ [phone] and Ruvlqxar-ii-Lgz/Fozia @ [phone] and he has DME in the home and a w/c is pending. Patient's PCP is Dr. Blake Faith. 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 The goal for dc is for Patient to return home and resume these services (Patient is mostly bed bound and non verbal at baseline). KIEL has initiated and will follow for dc planning.
--- NOTE | 2020-04-26 11:57 | MHC.CLN ---
RE: CONSULT RECOMMEND ADDING ENSURE TID, PROSOURCE BID AND LAURA TO PROMOTE WOUND HEALING AND INCREASE KCALS SEE ALSO CLINICAL NUTRITION ASSESSMENT
[2020-04-26 13:31] LABS: Creatinine Urine 67.14 mg/dL; Total Protein Urine Random 30 mg/dL (<12)
--- NOTE | 2020-04-26 13:31 | HO.PM.IMPN ---
Subjective Subjective Date of Service: 04/26/20 Interval History: Patient seen and examined at bedside Patient was not in any distress Review of system unable to do given nonverbal Physical Exam Vital Signs: Vital Signs: Last Vital Signs Temp 99.7 F 04/26/20 11:29 Pulse 98 04/26/20 11:29 Resp 20 04/26/20 11:29 BP 119/69 04/26/20 11:29 Pulse Ox 95 04/26/20 11:29 Body Mass Index 26.4 Const: Other: Gen: Appears be in no acute distress HEENT: NCAT, Moist mucosa. Pulmonary: Clear CVS: Normal S1-S2 Abdomen: BS+, Soft, Nontender Extremities: Warm well perfused Neuro: Alert and awake. Right-sided hemiparesis. Objective Data Current Medications Generic Name Dose Route Start Last Admin Trade Name Freq PRN Reason Stop Dose Admin Acetaminophen 650 mg 04/25/20 20:07 Acetaminophen 325 Mg Tablet PO Q6H PRN Pain, Mild (Pain Scale 1-3) Aspirin 81 mg 04/26/20 09:00 04/26/20 08:36 Aspirin Enteric Coated 81 Mg Tablet. PO 81 mg DAILY KEE Administration Atorvastatin Calcium 80 mg 04/25/20 21:00 04/25/20 22:08 Atorvastatin Calcium 80 Mg Tablet PO 80 mg BEDTIME KEE Administration Gabapentin 300 mg 04/25/20 21:00 04/25/20 22:08 Gabapentin 300 Mg Capsule PO 300 mg BEDTIME KEE Administration Ceftriaxone Sodium 1 gm/ 50 mls @ 100 mls/hr 04/26/20 20:00 Sodium Chloride IV Q24H KEE Dextrose/Sodium Chloride 1,000 mls @ 100 mls/hr 04/25/20 20:15 04/26/20 08:37 D5ns IVCONT 100 mls/hr .Q10H KEE Administration Pt Own Med (Xarelto 1 each 04/25/20 23:00 04/26/20 08:37 2.5mg) PO 1 each BID KEE Administration Pharmacy Consult 1 each 04/25/20 17:07 Consult Rx Perform Med Rec MISCELLANE ONCE PRN Consult order Senna 17.2 mg 04/25/20 20:07 Sennosides 8.6 Mg Tablet PO BEDTIME PRN Constipation Sodium Chloride 3 ml 04/26/20 00:00 04/26/20 07:41 0.9 % Sodium Chloride Flush 3 Ml Syringe IVFLUSH Not Given QSHIFT KEE Tamsulosin HCl 0.4 mg 04/25/20 21:00 04/25/20 22:08 Tamsulosin Hcl 0.4 Mg Capsule PO 0.4 mg BEDTIME KEE Administration Labs CBC & Chem 7: 04/26/20 05:30 04/26/20 05:30 Microbiology Microbiology Results: Microbiology 04/25/20 18:00 Urine clean catch - Clean Catch Midstream Urine Culture - Preliminary Gram negative thuan Assessment and Plan (1) Dehydration: Status: Acute (2) Acute UTI: Status: Acute Assessment and Plan: 64-year-old male with a past medical history of hypertension, hyperlipidemia, history of CVA with right-sided hemiparesis, mostly bed-bound, minimally verbal, recent diagnosis of COVID-19 presented to the hospital with a chief complaint of poor oral intake. Noted to be dehydrated, having VI and UTI. Admitted to the hospital for further management. UTI Continue ceftriaxone. Follow up cultures. VI/dehydration Continue IV fluid Monitor kidney function Avoid nephrotoxic Failure to thrive: Multifactorial. Nutrition consult Supportive care CT head shows old stroke COVID-19 positive: Stable respiratory status. Chest x-ray showed no acute findings Not requiring oxygen . History of AFib: Continue Xarelto DVT prophylaxis: Xarelto
[2020-04-26] MEDS: Potassium Chloride Packet 20 MEQ PACKET 40 MEQ PO (13:46)
--- NOTE | 2020-04-26 15:11 | CONS_ITS ---
DATE OF SERVICE: 04/26/2020 REASON FOR CONSULTATION: I was called to see this patient to assist in the management of acute kidney injury. HISTORY OF PRESENT ILLNESS: To summarize, Wyatt is a 64-year-old man with history of hypertension, diabetes mellitus, atrial fibrillation, and was on anticoagulation. He has right hemiparesis from an old CVA and has chronic kidney disease with a baseline creatinine of 1.24 mg/dL. He has been admitted because of poor oral intake and he was recently diagnosed with COVID-19 infection. At the time of admission, he was found to have acute kidney injury with serum creatinine of 2.08, and hence this consultation. Since admission, he has been using IV fluids. There has been minimal improvement in serum creatinine. PAST MEDICAL HISTORY: Ongoing medical problems include history of hypertension, hyperlipidemia, atrial fibrillation, history of CVA, right hemiparesis. SOCIAL HISTORY: No history of any alcohol abuse or any drug abuse documented. ALLERGIES: NO KNOWN DRUG ALLERGIES. MEDICATIONS: At the time of admission included aspirin, atorvastatin, gabapentin, hydralazine, labetalol, losartan 100 mg, nifedipine, Zofran, , tamsulosin. All the current medications were reviewed. REVIEW OF SYSTEMS: Not obtained from the patient due to his mentation. All the information obtained from the chart and from the team. PHYSICAL EXAMINATION: GENERAL: Wyatt is a 64-year-old man, is awake, comfortable, not in any distress. NECK: Supple. No JVD. HEENT: Mucosa is dry. LUNGS: Air entry equal. No rales with bilateral scattered rhonchi. HEART: S1, S2. Regular. No gallop or rub. ABDOMEN: Soft, nontender. EXTREMITIES: No edema. No rash. No clubbing. VITAL SIGNS: Blood pressure today was 119/69, pulse 98, temperature 99.7. LABORATORY DATA: Urinalysis showed 2+ leukocytes, no rbc's. There is trace protein by dipstick. Sodium 142, potassium 3.0, BUN 46, creatinine 1.53, albumin 2.7. Hemoglobin 9.0, platelets 344. Chest x-ray showed no focal abnormalities. IMPRESSION: 64-year-old man with acute kidney injury, superimposed on chronic kidney disease in the setting of hypertension, recent COVID-19 infection. Wyatt probably has acute kidney injury due to hypoperfusion in the setting of COVID-19 and poor p.o. intake. However, underlying glomerular disease should be considered, although COVID-19 infection acute kidney injury. The clinical presentation does not support this at this time. Other less likely possibilities including obstructive uropathy should be ruled out. RECOMMENDATIONS: My recommendation is to obtain a spot urine for sodium, creatinine, and protein. I will hold the angiotensin receptor ethel. Optimize blood pressure and avoid hypotension. Agree with IV hydration. Keep intake more than the output. We will watch the urine output closely. There is no absolute indication for dialysis. I expect renal function to improve and further workup will be determined by the outcome of the baseline investigations. James Flores MD BPA/MODL / [id number]
[2020-04-26 16:20] LABS: Glucose, Whole Blood 152 mg/dL (60-115)
--- NOTE | 2020-04-26 16:32 | HO.WOUNDCONS ---
History of Present Illness Data of Consult Service Date: 04/26/20 Requesting physician: Damian Beavers Primary Care Provider: Unknown Physician HPI Reason for consult: buttock ulcer; right heel ulcer 64 year old male with old stroke and right hemiparesis by history brought in for dehydration and poor eating. Initially tested + for COVID on Apr 13 and again on April 25. Details of home or nursing facility care are not available, nor is mobility history since stroke. Pt does not communicate. [facility] Social History Household Members: Family Housing: House Do you presently have visiting nurse or other home services: No Unable to assess alcohol history related to: Unknown Alcohol intake: unknown Smoking Status: Unknown if ever smoked Use of substances other than those prescribed or required for medical reasons: Unknown Advance Directives: No Advance Directives Information Provided: No Do you have thoughts of harming others: None Do you have a plan to hurt others: No Plan Recently lost weight without trying: Unsure service: No Current occupational status: disabled Meds Allergies Allergy/AdvReac Type Severity Reaction Status Date / Time No Known Allergies Allergy Unverified 11/09/19 16:34 [No Known Allergies*] Active Medications: Current Medications Generic Name Dose Route Start Last Admin Trade Name Freq PRN Reason Stop Dose Admin Acetaminophen 650 mg 04/25/20 20:07 Acetaminophen 325 Mg Tablet PO Q6H PRN Pain, Mild (Pain Scale 1-3) Aspirin 81 mg 04/26/20 09:00 04/26/20 08:36 Aspirin Enteric Coated 81 Mg Tablet. PO 81 mg DAILY KEE Administration Atorvastatin Calcium 80 mg 04/25/20 21:00 04/25/20 22:08 Atorvastatin Calcium 80 Mg Tablet PO 80 mg BEDTIME KEE Administration Gabapentin 300 mg 04/25/20 21:00 04/25/20 22:08 Gabapentin 300 Mg Capsule PO 300 mg BEDTIME KEE Administration Ceftriaxone Sodium 1 gm/ 50 mls @ 100 mls/hr 04/26/20 20:00 Sodium Chloride IV Q24H KEE Dextrose/Sodium Chloride 1,000 mls @ 100 mls/hr 04/25/20 20:15 04/26/20 08:37 D5ns IVCONT 100 mls/hr .Q10H KEE Administration Pt Own Med (Xarelto 1 each 04/25/20 23:00 04/26/20 08:37 2.5mg) PO 1 each BID [facility] Administration Pharmacy Consult 1 each 04/25/20 17:07 Consult Rx Perform Med Rec MISCELLANE ONCE PRN Consult order Senna 17.2 mg 04/25/20 20:07 Sennosides 8.6 Mg Tablet PO BEDTIME PRN Constipation Sodium Chloride 3 ml 04/26/20 00:00 04/26/20 15:57 0.9 % Sodium Chloride Flush 3 Ml Syringe IVFLUSH Not Given QSHIFT [facility] Tamsulosin HCl 0.4 mg 04/25/20 21:00 04/25/20 22:08 Tamsulosin Hcl 0.4 Mg Capsule PO 0.4 mg BEDTIME [facility] Administration Home Medications Medication Instructions Recorded Confirmed Last Taken Type aspirin 81 mg PO DAILY 04/25/20 04/25/20 Unknown History atorvastatin 80 mg PO BEDTIME 04/25/20 04/25/20 Unknown History gabapentin 300 mg PO BEDTIME 04/25/20 04/25/20 Unknown History hydralazine 25 mg PO TID 04/25/20 04/25/20 Unknown History labetalol 100 mg PO BID 04/25/20 04/25/20 Unknown History losartan 100 mg PO DAILY 04/25/20 04/25/20 Unknown History nifedipine 30 mg PO DAILY 04/25/20 04/25/20 Unknown History ondansetron 4 mg TRANSLINGUAL Q6H PRN 04/25/20 04/25/20 Unknown History rivaroxaban [Xarelto] 2.5 mg PO BID 04/25/20 04/25/20 Unknown History tamsulosin 0.4 mg PO BEDTIME 04/25/20 04/25/20 Unknown History Physical Exam Vital Signs and Narrative: Vital Signs: Last Vital Signs Temp 97.0 F 04/26/20 15:21 Pulse 90 04/26/20 15:21 Resp 14 04/26/20 15:21 BP 100/53 L 04/26/20 15:21 Pulse Ox 96 04/26/20 15:21 Body Mass Index 26.4 Involuntary spasm of the right side extremities occurs when assisting with bed rolling. On the left buttock, a streak of purple tissue is seen lateral to the coccyx which has not yet opened. Medial to it on the buttock a small about 0.5 cm partial thickness wound is seen which appears macerated. [place]eballos drainage on the foam. The right buttock ulcer is slightly larger about 1 cm in width also partial thickness, ulcerated and macerated with a fair amount of slough seen. No evidence of acute cellulitis. Stage one PI medial left heel, nonblanchable, nothing open, slightly boggy appearance. Right lateral heel with purple discoloration also not open with impaired blanchability of surrounding tissue. Results Labs CBC and Chem 7: 04/26/20 05:30 04/26/20 05:30 Labs: Laboratory Results - last 24 hr 04/25/20 04/25/20 04/25/20 17:35 17:35 18:43 MCV 95.5 MCH 32.5 MCHC 34.0 RDW 14.2 Plt Count 340 MPV 9.2 L Immature Gran % (Auto) 0.4 Neut % (Auto) 79.2 H Lymph % (Auto) 9.8 L [place] % (Auto) 8.8 Eos % (Auto) 1.6 Baso % (Auto) 0.2 Lymph # (Auto) 0.8 L [place] # (Auto) 0.8 Eos # (Auto) 0.1 Baso # (Auto) 0.0 Abs Immat Gran (auto) 0.03 Absolute Neuts (auto) 6.7 Absolute Nucleated RBC 0.000 Nucleated RBC % (auto) 0.0 Smear Tech's Comments PT INR APTT Anion Gap Estim Creat Clear Calc Estimated GFR POC Glucose Random Glucose Lactic Acid Calcium Total Bilirubin Direct Bilirubin AST ALT Alkaline Phosphatase Troponin I High Sens B-Natriuretic Peptide Total Protein Albumin Lipase Urine Color YELLOW Urine Appearance CLOUDY Urine pH 5.5 Ur Specific [place] 1.015 Urine Protein TRACE Urine Glucose (UA) NEG Urine Ketones NEG Urine Blood TRACE Urine Nitrite POS H Ur Leukocyte Esterase 2+ H Urine RBC 0-2 Urine WBC 15-29 H Ur Squamous Epith Cells 1+ Uric Acid Crystals 3+ Urine Bacteria 2+ U Random Total Protein Ur Random Sodium Urine Creatinine COVID-19 (GISELLE) Positive A COVID-19 Clin Com See Note 04/25/20 04/25/20 04/25/20 18:43 18:43 18:43 MCV MCH MCHC RDW Plt Count MPV Immature Gran % (Auto) Neut % (Auto) Lymph % (Auto) [place] % (Auto) Eos % (Auto) Baso % (Auto) Lymph # (Auto) [place] # (Auto) Eos # (Auto) Baso # (Auto) Abs Immat Gran (auto) Absolute Neuts (auto) Absolute Nucleated RBC Nucleated RBC % (auto) Smear Tech's Comments PT INR APTT Anion Gap 15 Estim Creat Clear Calc 35.6 Estimated GFR 34 POC Glucose Random Glucose 128 H Lactic Acid 1.4 Calcium 7.9 L Total Bilirubin 0.9 Direct Bilirubin 0.5 AST 53 H ALT 65 H Alkaline Phosphatase 122 H Troponin I High Sens 11.1 B-Natriuretic Peptide 65 Total Protein 5.7 L Albumin 2.7 L Lipase 62 Urine Color Urine Appearance Urine pH Ur Specific [place] Urine Protein Urine Glucose (UA) Urine Ketones Urine Blood Urine Nitrite Ur Leukocyte Esterase Urine RBC Urine WBC Ur Squamous Epith Cells Uric Acid Crystals Urine Bacteria U Random Total Protein Ur Random Sodium Urine Creatinine COVID-19 (GISELLE) COVIDLabRoots 04/25/20 04/26/20 04/26/20 18:43 05:30 05:30 MCV 94.5 MCH 33.1 H MCHC 35.0 RDW 14.0 Plt Count 344 MPV 9.1 L Immature Gran % (Auto) 0.4 Neut % (Auto) 74.3 H Lymph % (Auto) 9.6 L [place] % (Auto) 12.0 H Eos % (Auto) 3.3 Baso % (Auto) 0.4 Lymph # (Auto) 0.7 L [place] # (Auto) 0.8 Eos # (Auto) 0.2 Baso # (Auto) 0.0 Abs Immat Gran (auto) 0.03 Absolute Neuts (auto) 5.1 Absolute Nucleated RBC 0.000 Nucleated RBC % (auto) 0.0 Smear Tech's Comments VERIFIED PT 16.2 H INR 1.4 H APTT 28.9 Anion Gap 14 Estim Creat Clear Calc 46.5 Estimated GFR 46 POC Glucose Random Glucose 152 H Lactic Acid Calcium 7.8 L Total Bilirubin Direct Bilirubin AST ALT Alkaline Phosphatase Troponin I High Sens B-Natriuretic Peptide Total Protein Albumin Lipase Urine Color Urine Appearance Urine pH Ur Specific [place] Urine Protein Urine Glucose (UA) Urine Ketones Urine Blood Urine Nitrite Ur Leukocyte Esterase Urine RBC Urine WBC Ur Squamous Epith Cells Uric Acid Crystals Urine Bacteria U Random Total Protein Ur Random Sodium Urine Creatinine COVID-19 ([facility]LE) COVIDLabRoots 04/26/20 04/26/20 12:15 16:07 MCV MCH MCHC RDW Plt Count MPV Immature Gran % (Auto) Neut % (Auto) Lymph % (Auto) [place] % (Auto) Eos % (Auto) Baso % (Auto) Lymph # (Auto) [place] # (Auto) Eos # (Auto) Baso # (Auto) Abs Immat Gran (auto) Absolute Neuts (auto) Absolute Nucleated RBC Nucleated RBC % (auto) Smear Tech's Comments PT INR APTT Anion Gap Estim Creat Clear Calc Estimated GFR POC Glucose 152 H Random Glucose Lactic Acid Calcium Total Bilirubin Direct Bilirubin AST ALT Alkaline Phosphatase Troponin I High Sens B-Natriuretic Peptide Total Protein Albumin Lipase Urine Color Urine Appearance Urine pH Ur Specific [place] Urine Protein Urine Glucose (UA) Urine Ketones Urine Blood Urine Nitrite Ur Leukocyte Esterase Urine RBC Urine WBC Ur Squamous Epith Cells Uric Acid Crystals Urine Bacteria U Random Total Protein 30 H Ur Random Sodium 37.0 Urine Creatinine 67.14 COVID-19 ([facility]) COVID-19 Clin Com Imaging Radiologist's Impressions: Impressions Chest X-Ray 04/25/20 17:07 IMPRESSION: No focal consolidation. Head CT 04/25/20 20:00 IMPRESSION: 1. Old left MCA territory infarct. MRI of the head would be helpful for further assessment. 2. No acute intracranial hemorrhage. Assessment and Plan (1) Decubitus ulcer of both heels, stage 1: Start date: 04/26/20 Problem details: reversible heel PI bilaterally: nonhospital acquired PI buttocks Status: Acute 64-year-old male with remote history of stroke and impaired mobility with question of pressure injury about the heel and buttocks, just admitted to [facility] within the last 24-48 hours. It is difficult to say definitively that these buttock ulcers are in fact from pressure as they are quite macerated and may have friction and shear component given poor premorbid mobility from stroke. They could be reflective of DTI and furthermore the purple discoloration of the buttocks supports COVID associated skin changes, though one might expect more the appearance of epidermal necrosis. Either way, the possible PI described cannot be hospital acquired for this admission as wounds with this appearance take about one week to develop and declare themselves. They have likely been present for longer than that. These wounds are most reflective of his care level prior to arrival, which we cannot secured the details of at this time. (2) Pressure ulcer of sacral region, stage 2: Start date: 04/26/20 Status: Acute Avoid foams which are occlusive and cause worsening maceration of the skin about the buttocks. Switch to DuraFiber alginate with hypafix or equivalent, changing dressings daily. Change position q two hours. Ensure adequate nutrition. Offload heels per protocol. Continue with inflatable heel boots. Keep the heels dry. Betadine paint prn only. No creams or ointments. Thank you for the courtesy of this consultation.
--- NOTE | 2020-04-26 16:48 | P.CNID_ITS ---
History of Present Illness Data of Consult Service Date: 04/26/20 Requesting physician: Damian Beavers Primary Care Provider: Unknown Physician HPI Reason for consult: urinary infection,COVID He presents with right CVA and lethargy He has pyuria,gram negative rods Review of Systems Review of Systems: Yes Unobtainable due to mental condition [facility] Past Medical History Medical History (Updated 05/07/20 @ 00:01 by Simran Simmons) COVID-19 High cholesterol History of CVA (cerebrovascular accident) HTN (hypertension) HTN (hypertension) Paroxysmal atrial fibrillation Stroke Family History Family History (System 05/01/20 @ 13:02 by Tabby Coon) Father No problems noted. Mother No problems noted. Family history: reviewed and not pertinent Surgical History Surgical History No pertinent past surgical history Social History Social History (System 05/01/20 @ 13:02 by Tabby Coon) Household Members: Family Housing: House Alcohol intake: former Smoking Status: Unknown if ever smoked Smoked in Last 30 Days: No Advance Directives: Yes Advance Directives on File: Yes Advance Directives Date on File: 02/14/20 service: No Current occupational status: disabled Meds Allergies Allergy/AdvReac Type Severity Reaction Status Date / Time No Known Allergies Allergy Unverified 05/01/20 13:02 [No Known Allergies*] Active Medications: Current Medications Generic Name Dose Route Start Last Admin Trade Name Freq PRN Reason Stop Dose Admin Acetaminophen 650 mg 04/25/20 20:07 Acetaminophen 325 Mg Tablet PO Q6H PRN Pain, Mild (Pain Scale 1-3) Aspirin 81 mg 04/26/20 09:00 04/26/20 08:36 Aspirin Enteric Coated 81 Mg Tablet. PO 81 mg DAILY KEE Administration Atorvastatin Calcium 80 mg 04/25/20 21:00 04/25/20 22:08 Atorvastatin Calcium 80 Mg Tablet PO 80 mg BEDTIME KEE Administration Gabapentin 300 mg 04/25/20 21:00 04/25/20 22:08 Gabapentin 300 Mg Capsule PO 300 mg BEDTIME KEE Administration Ceftriaxone Sodium 1 gm/ 50 mls @ 100 mls/hr 04/26/20 20:00 Sodium Chloride IV Q24H KEE Dextrose/Sodium Chloride 1,000 mls @ 100 mls/hr 04/25/20 20:15 04/26/20 08:37 D5ns IVCONT 100 mls/hr .Q10H KEE Administration Pt Own Med (Xarelto 1 each 04/25/20 23:00 04/26/20 08:37 2.5mg) PO 1 each BID KEE Administration Pharmacy Consult 1 each 04/25/20 17:07 Consult Rx Perform Med Rec MISCELLANE ONCE PRN Consult order Senna 17.2 mg 04/25/20 20:07 Sennosides 8.6 Mg Tablet PO BEDTIME PRN Constipation Sodium Chloride 3 ml 04/26/20 00:00 04/26/20 15:57 0.9 % Sodium Chloride Flush 3 Ml Syringe IVFLUSH Not Given QSHIFT KEE Tamsulosin HCl 0.4 mg 04/25/20 21:00 04/25/20 22:08 Tamsulosin Hcl 0.4 Mg Capsule PO 0.4 mg BEDTIME KEE Administration Home Medications Medication Instructions Recorded Confirmed Last Taken Type Xarelto 2.5 mg PO BID 04/25/20 05/01/20 Unknown History atorvastatin 80 mg PO BEDTIME 04/25/20 05/01/20 Unknown History cefuroxime axetil 250 tab PO BID 05/01/20 05/01/20 Unknown History Physical Exam Vital Signs: Vital Signs: Last Vital Signs Temp 97.0 F 04/26/20 15:21 Pulse 90 04/26/20 15:21 Resp 14 04/26/20 15:21 BP 100/53 L 04/26/20 15:21 Pulse Ox 96 04/26/20 15:21 Body Mass Index 26.4 Const: General: cooperative HENMT: Head: Yes normal to inspection Mouth: Normal oral and palatal mucosa present Eyes: General: appearance normal, both eyes and all related structures Resp: Effort & Inspection: normal respiratory effort Cardio: Rate: regular rate Rhythm: regular rhythm GI: Palpation (GI): Soft to palpation and nontender : General: Yes no CVA tenderness Back/Spine/Pelvis: Back: no CVA tenderness Results Labs CBC & Chem 7: 04/29/20 06:29 04/29/20 06:29 Labs: Short CBC 04/25/20 04/26/20 Range/Units 18:43 05:30 WBC 8.5 6.9 (4.8-10.8) X10*3/uL Hgb 8.6 L 9.0 L (14.0-18.0) g/dl Hct 25.3 L 25.7 L (42-52) % Plt Count 340 344 (160-400) X10*3/uL BMP 04/25/20 04/26/20 18:43 05:30 Sodium 139 142 Potassium 3.5 3.0 L Chloride 102 107 Carbon Dioxide 26 24 BUN 54 H 46 H Creatinine 2.00 H 1.53 H Calcium 7.9 L 7.8 L Liver Function 04/25/20 Range/Units 18:43 Total Bilirubin 0.9 (0.0-1.0) mg/dL Direct Bilirubin 0.5 (0.0-0.5) mg/dL AST 53 H (5-37) U/L ALT 65 H (0-40) U/L Alkaline Phosphatase 122 H (39-117) U/L Albumin 2.7 L (3.5-5.0) g/dL Urine 04/25/20 Range/Units 17:35 Urine Color YELLOW Urine Appearance CLOUDY Urine pH 5.5 (5.0-8.0) Ur Specific [place] 1.015 (1.005-1.025) Urine Protein TRACE (NEG-TRACE) MG/DL Urine Glucose (UA) NEG (NEG) MG/DL Microbiology Microbiology Results: Microbiology 04/25/20 18:00 Urine clean catch - Clean Catch Midstream Urine Culture - Preliminary Gram negative thuan Assessment and Plan (1) Acute UTI: Problem details: Urinary infection Status: Resolved await culture,po Ceftin for 14 d likely (2) Dehydration: Status: Resolved
[2020-04-26] MEDS: cefTRIAXone sodium 1 GM in 0.9 % Sodium Chloride 50 ML IV (19:47)
[2020-04-26] MEDS: Atorvastatin Calcium 80 MG TABLET PO (20:49)
[2020-04-26] MEDS: Tamsulosin HCL 0.4 MG CAPSULE PO (20:49)
[2020-04-26] MEDS: Gabapentin 300 MG CAPSULE PO (20:50)
[2020-04-26] MEDS: 0.9 % Sodium Chloride Flush 3 ML SYRINGE IVFLUSH (23:13)
[2020-04-27 03:01] VITALS: BP 146/80; PULSE 88; RESP 18; TEMP 36.4; O2SAT 99
[2020-04-27] MEDS: Dextrose 5 % and 0.9 % NaCl 1,000 ML 100 ML IVCONT ×2 (05:35→18:05)
[2020-04-27 07:28] VITALS: BP 145/86; PULSE 86; RESP 20; TEMP 36.6; O2SAT 96
[2020-04-27] MEDS: 0.9 % Sodium Chloride Flush 3 ML SYRINGE IVFLUSH ×2 (09:07→23:50)
[2020-04-27] MEDS: Aspirin Enteric Coated 81 MG TABLET.DR PO (09:07)
[2020-04-27 09:21] LABS: Blood Urea Nitrogen 30 mg/dL (9-16); Calcium 7.6 mg/dL (8.4-10.2); Creatinine Clr Calc Pharmacy 61.4; Estimated Glomerular Filt Rate > 60; Glucose Random 152 mg/dL (60-115)
[2020-04-27 09:42] LABS: Anion Gap 12 (12-20); Carbon Dioxide 21 mmol/L (22-29); Chloride 114 mmol/L (96-108); Potassium 2.8 mmol/L (3.3-5.1); Sodium 144 mmol/L (135-145)
[2020-04-27 10:53] VITALS: BP 150/87; PULSE 84; RESP 18; TEMP 36.4; O2SAT 99
[2020-04-27 11:32] LABS: Alanine Aminotransferase 60 U/L (0-40); Albumin Level 2.4 g/dL (3.5-5.0); Alkaline Phosphatase 120 U/L (39-117); Aspartate Amino Transferase 32 U/L (5-37); Bilirubin Direct 0.3 mg/dL (0.0-0.5); Bilirubin Total 0.6 mg/dL (0.0-1.0)
[2020-04-27] MEDS: Potassium Chloride ER 20 MEQ TAB.ER.PRT 40 MEQ PO (12:09)
--- NOTE | 2020-04-27 12:59 | HO.PM.IMPN ---
Subjective Subjective Date of Service: 04/27/20 Interval History: Patient seen and examined at bedside Patient still with poor p.o. intake Review of system unable to do given nonverbal Physical Exam Vital Signs: Vital Signs: Last Vital Signs Temp 97.5 F 04/27/20 10:53 Pulse 84 04/27/20 10:53 Resp 18 04/27/20 10:53 BP 150/87 H 04/27/20 10:53 Pulse Ox 99 04/27/20 10:53 Body Mass Index 26.4 Const: Other: Gen: Appears be in no acute distress HEENT: NCAT, Moist mucosa. Pulmonary: Clear CVS: Normal S1-S2 Abdomen: BS+, Soft, Nontender Extremities: Warm well perfused Neuro: Alert and awake. Right-sided hemiparesis. Objective Data Current Medications Generic Name Dose Route Start Last Admin Trade Name Freq PRN Reason Stop Dose Admin Acetaminophen 650 mg 04/25/20 20:07 Acetaminophen 325 Mg Tablet PO Q6H PRN Pain, Mild (Pain Scale 1-3) Aspirin 81 mg 04/26/20 09:00 04/27/20 09:07 Aspirin Enteric Coated 81 Mg Tablet.Dr PO 81 mg DAILY KEE Administration Atorvastatin Calcium 80 mg 04/25/20 21:00 04/26/20 20:49 Atorvastatin Calcium 80 Mg Tablet PO 80 mg BEDTIME KEE Administration Gabapentin 300 mg 04/25/20 21:00 04/26/20 20:50 Gabapentin 300 Mg Capsule PO 300 mg BEDTIME KEE Administration Ceftriaxone Sodium 1 gm/ 50 mls @ 100 mls/hr 04/26/20 20:00 04/26/20 20:25 Sodium Chloride IV Infused Q24H KEE Infusion Dextrose/Sodium Chloride 1,000 mls @ 100 mls/hr 04/26/20 20:15 04/27/20 05:35 D5ns IVCONT 100 mls/hr .Q10H KEE Administration Pt Own Med (Xarelto 1 each 04/25/20 23:00 04/27/20 09:07 2.5mg) PO 1 each BID KEE Administration Pharmacy Consult 1 each 04/25/20 17:07 Consult Rx Perform Med Rec MISCELLANE ONCE PRN Consult order Senna 17.2 mg 04/25/20 20:07 Sennosides 8.6 Mg Tablet PO BEDTIME PRN Constipation Sodium Chloride 3 ml 04/26/20 00:00 04/27/20 09:07 0.9 % Sodium Chloride Flush 3 Ml Syringe IVFLUSH 3 ml QSHIFT KEE Administration Tamsulosin HCl 0.4 mg 04/25/20 21:00 04/26/20 20:49 Tamsulosin Hcl 0.4 Mg Capsule PO 0.4 mg BEDTIME KEE Administration Labs CBC & Chem 7: 04/26/20 05:30 04/27/20 08:28 Microbiology Microbiology Results: Microbiology 04/25/20 18:00 Urine clean catch - Clean Catch Midstream Urine Culture - Final Escherichia coli 04/25/20 18:43 Blood - Venous Blood Culture - Preliminary No growth after 24 hours. 04/25/20 18:43 Blood - Venous Blood Culture - Preliminary No growth after 24 hours. Assessment and Plan (1) Dehydration: Status: Acute (2) Acute UTI: Problem details: Urinary infection Status: Acute Assessment and Plan: 64-year-old male with a past medical history of hypertension, hyperlipidemia, history of CVA with right-sided hemiparesis, mostly bed-bound, minimally verbal, recent diagnosis of COVID-19 presented to the hospital with a chief complaint of poor oral intake. Noted to be dehydrated, having VI and UTI. Admitted to the hospital for further management. UTI Continue ceftriaxone. urine culture growing E coli VI/dehydration improving Continue IV fluid Monitor kidney function Avoid nephrotoxic Hypokalemia potassium 2.9 today replaced Monitor potassium Elevated elevated LFTs probably related to COVID infection Will check ultrasound liver Monitor LFTs Failure to thrive: Multifactorial. Nutrition consult Supportive care CT head shows old stroke COVID-19 positive: Stable respiratory status. Chest x-ray showed no acute findings Not requiring oxygen . History of AFib: Continue Xarelto DVT prophylaxis: Xarelto
--- NOTE | 2020-04-27 13:34 | PM.PNNEP ---
Subjective Subjective Date of Service: 04/27/20 Interval history: Patient seen and examined at bedside Patient still with poor p.o. intake Review of system unable to do given nonverbal Physical Exam Vital Signs: Vital Signs: Last Vital Signs Temp 97.5 F 04/27/20 10:53 Pulse 84 04/27/20 10:53 Resp 18 04/27/20 10:53 BP 150/87 H 04/27/20 10:53 Pulse Ox 99 04/27/20 10:53 Body Mass Index 26.4 Const: Other: Gen: Appears be in no acute distress HEENT: NCAT, Moist mucosa. Pulmonary: Clear CVS: Normal S1-S2 Abdomen: BS+, Soft, Nontender Extremities: Warm well perfused Neuro: Alert and awake. Right-sided hemiparesis. General: cooperative HENMT: Head: Yes normal to inspection Mouth: Normal oral and palatal mucosa present Eyes: General: appearance normal, both eyes and all related structures Resp: Effort & Inspection: normal respiratory effort Cardio: Other: Gen: Appears be in no acute distress HEENT: NCAT, Moist mucosa. Pulmonary: Clear CVS: Normal S1-S2 Abdomen: BS+, Soft, Nontender Extremities: Warm well perfused Neuro: Alert and awake. Right-sided hemiparesis. Rate: regular rate Rhythm: regular rhythm GI: Palpation (GI): Soft to palpation and nontender : General: Yes no CVA tenderness Back/Spine/Pelvis: Back: no CVA tenderness Objective Data Labs CBC & Chem 7: 04/26/20 05:30 04/27/20 08:28 Labs: Laboratory Results - last 24 hr 04/26/20 04/27/20 16:07 08:28 Sodium 144 Potassium 2.8 L Chloride 114 H Carbon Dioxide 21 L Anion Gap 12 BUN 30 H Creatinine 1.16 Estim Creat Clear Calc 61.4 Estimated GFR > 60 POC Glucose 152 H Random Glucose 152 H Calcium 7.6 L Total Bilirubin 0.6 Direct Bilirubin 0.3 AST 32 ALT 60 H Alkaline Phosphatase 120 H Total Protein 5.0 L Albumin 2.4 L Microbiology Microbiology Results: Microbiology 04/25/20 18:00 Urine clean catch - Clean Catch Midstream Urine Culture - Final Escherichia coli 04/25/20 18:43 Blood - Venous Blood Culture - Preliminary No growth after 24 hours. 04/25/20 18:43 Blood - Venous Blood Culture - Preliminary No growth after 24 hours. Assessment & Plan Assessment and plan (1) Dehydration: Status: Acute (2) Acute UTI: Problem details: Urinary infection Status: Acute Assessment and Plan: 64-year-old male with a past medical history of hypertension, hyperlipidemia, history of CVA with right-sided hemiparesis, mostly bed-bound, minimally verbal, recent diagnosis of COVID-19 presented to the hospital with a chief complaint of poor oral intake. Noted to be dehydrated, having VI and UTI. Admitted to the hospital for further management. UTI Continue ceftriaxone. urine culture growing E coli VI/dehydration improving Continue IV fluid Monitor kidney function Avoid nephrotoxic Hypokalemia potassium 2.9 today replaced suggest kcitrate 20 meq tid COVID-19 positive: Stable respiratory status. Time Spent With Patient Time: Total time spent is greater than 50% in coordination of care (as documented) at patient's floor/unit and/or counseling patient: Procedures Date of Service Date of Service: 04/27/20
[2020-04-27 15:17] VITALS: BP 167/87; PULSE 90; RESP 16; TEMP 36.3; O2SAT 98
--- NOTE | 2020-04-27 17:37 | PC.NURSE ---
STILL WITH POOR PO INTAKE. CONSISTENTLY <25% OF MEAL INTAKE WITH CONTINUED 1:1 FEED.K 2.8. NOTIFED MD AND PO REPLACEMENT ORDERED AND GIVEN. ABD U/S COMPLETE AT BEDSIDE. CHRONIC KO CATHETER DRAINING ADEQUATE AMOUNT OF YELLOW URINE. DAUGHTER UPDATED OVER THE PHONE.
[2020-04-27 19:16] VITALS: BP 170/94; PULSE 84; RESP 18; TEMP 36; O2SAT 99
[2020-04-27] MEDS: cefTRIAXone sodium 1 GM in 0.9 % Sodium Chloride 50 ML IV (19:38)
[2020-04-27] MEDS: Gabapentin 300 MG CAPSULE PO (20:50)
[2020-04-27] MEDS: Atorvastatin Calcium 80 MG TABLET PO (20:50)
[2020-04-27] MEDS: Tamsulosin HCL 0.4 MG CAPSULE PO (20:50)
[2020-04-27] MEDS: Acetaminophen 325 MG TABLET 650 MG PO (20:58)
[2020-04-28] VITALS (9 sets, daily range): BP systolic 140–194; BP diastolic 72–102; PULSE 78–92; RESP 18; TEMP 36.1–36.6; O2SAT 97–99
[2020-04-28] MEDS: Dextrose 5 % and 0.9 % NaCl 1,000 ML 100 ML IVCONT (03:31)
[2020-04-28 05:32] LABS: MANUAL DIFF FLAG NO
[2020-04-28 05:50] LABS: Basophils Percent Auto 0.4 % (0-2); Eosinophils Absolute Auto 0.2 X10*3/uL (0.0-0.4); Eosinophils Percent Auto 2.9 % (0-4); Hematocrit 24.3 % (42-52); Hemoglobin 8.1 g/dl (14.0-18.0); Imm Gran Abs Auto 0.02 X10*3/uL (0.00-0.03); Imm Gran Pct Auto 0.4 % (0.0-0.4); Lymphocytes Absolute Auto 0.9 X10*3/uL (1.2-4.9); Lymphocytes Percent Auto 17.9 % (20-40); Mean Corpuscular HGB Conc 33.3 g/dl (31.0-36.0); Mean Platelet Volume 8.6 fL (9.4-12.4); Monocytes Absolute Auto 0.6 X10*3/uL (0.1-1.2); Monocytes Percent Auto 11.9 % (2-11); Neutrophils Absolute Auto 3.4 X10*3/uL (2.0-8.3); Neutrophils Percent Auto 66.5 % (45-73); Platelet Count 321 X10*3/uL (160-400); Red Blood Count 2.53 X10*6/uL (4.60-5.80); Red Cell Distribution Width 13.8 % (11.0-16.0); White Blood Count 5.1 X10*3/uL (4.8-10.8)
--- NOTE | 2020-04-28 06:04 | PM.EVENT ---
Event Note Date of Service: 04/28/20 Event Note: Bacteremia: Cultures growing GPC added Vancomycin Pending Final cultures.
[2020-04-28 06:08] LABS: Blood Urea Nitrogen 24 mg/dL (9-16); Calcium 7.9 mg/dL (8.4-10.2); Estimated Glomerular Filt Rate > 60; Glucose Random 161 mg/dL (60-115)
[2020-04-28 06:18] LABS: Anion Gap 11 (12-20); Carbon Dioxide 23 mmol/L (22-29); Chloride 118 mmol/L (96-108); Potassium 3.1 mmol/L (3.3-5.1); Sodium 149 mmol/L (135-145)
[2020-04-28] MEDS: vancomycin HCL 750 MG in 0.9 % Sodium Chloride 250 ML 265 MG IV ×2 (07:53→21:48)
[2020-04-28] MEDS: Aspirin Enteric Coated 81 MG TABLET.DR PO (07:54)
--- NOTE | 2020-04-28 10:59 | HO.PM.IMPN ---
Subjective Subjective Date of Service: 04/28/20 Interval History: no complaints Cardiovascular Cardiovascular: Reports no additional cardiovascular complaints Gastrointestinal Gastrointestinal: Reports no additional gastrointestinal complaints Physical Exam Vital Signs: Vital Signs: Last Vital Signs Temp 97.8 F 04/28/20 08:00 Pulse 92 04/28/20 08:00 Resp 18 04/28/20 08:00 BP 180/93 H 04/28/20 08:00 Pulse Ox 97 04/28/20 08:00 Body Mass Index 26.4 Other: Gen: Appears be in no acute distress HEENT: NCAT, Moist mucosa. Pulmonary: Clear CVS: Normal S1-S2 Abdomen: BS+, Soft, Nontender Extremities: Warm well perfused Neuro: Alert and awake. Right-sided hemiparesis. decubitus ulcer amie 2 Objective Data Current Medications Generic Name Dose Route Start Last Admin Trade Name Freq PRN Reason Stop Dose Admin Acetaminophen 650 mg 04/25/20 20:07 04/27/20 20:58 Acetaminophen 325 Mg Tablet PO 650 mg Q6H PRN Administration Pain, Mild (Pain Scale 1-3) Aspirin 81 mg 04/26/20 09:00 04/28/20 07:54 Aspirin Enteric Coated 81 Mg Tablet. PO 81 mg DAILY KEE Administration Atorvastatin Calcium 80 mg 04/25/20 21:00 04/27/20 20:50 Atorvastatin Calcium 80 Mg Tablet PO 80 mg BEDTIME KEE Administration Gabapentin 300 mg 04/25/20 21:00 04/27/20 20:50 Gabapentin 300 Mg Capsule PO 300 mg BEDTIME KEE Administration Ceftriaxone Sodium 1 gm/ 50 mls @ 100 mls/hr 04/26/20 20:00 04/27/20 20:11 Sodium Chloride IV Infused Q24H KEE Infusion Vancomycin HCl 750 mg/ Sodium 265 mls @ 265 mls/hr 04/28/20 07:00 04/28/20 09:32 Chloride IV Infused Q12H KEE Infusion Dextrose 1,000 mls @ 100 mls/hr 04/28/20 08:00 D5w IVCONT .Q10H KEE Pt Own Med (Xarelto 1 each 04/25/20 23:00 04/28/20 07:53 2.5mg) PO 1 each BID KEE Administration Pharmacy Consult 1 each 04/25/20 17:07 Consult Rx Perform Med Rec MISCELLANE ONCE PRN Consult order Pharmacy Consult 1 each 04/28/20 06:04 Consult Rx Vancomycin Dosing MISCELLANE DAILY PRN Consult order Senna 17.2 mg 04/25/20 20:07 Sennosides 8.6 Mg Tablet PO BEDTIME PRN Constipation Sodium Chloride 3 ml 04/26/20 00:00 04/28/20 07:53 0.9 % Sodium Chloride Flush 3 Ml Syringe IVFLUSH Not Given QSHIFT KEE Tamsulosin HCl 0.4 mg 04/25/20 21:00 04/27/20 20:50 Tamsulosin Hcl 0.4 Mg Capsule PO 0.4 mg BEDTIME KEE Administration Labs CBC & Chem 7: 04/28/20 04:57 04/28/20 04:57 Microbiology Microbiology Results: Microbiology 04/25/20 18:43 Blood - Venous Blood Culture - Preliminary 04/25/20 18:43 Blood - Venous Blood Culture - Preliminary No growth after 48 hours. 04/25/20 18:00 Urine clean catch - Clean Catch Midstream Urine Culture - Final Escherichia coli Assessment and Plan (1) Acute UTI: Problem details: Urinary infection Status: Acute Assessment and Plan: 64-year-old male with a past medical history of hypertension, hyperlipidemia, history of CVA with right-sided hemiparesis, mostly bed-bound, minimally verbal, recent diagnosis of COVID-19 presented to the hospital with a chief complaint of poor oral intake. Noted to be dehydrated, having Suyapa and UTI. Admitted to the hospital for further management. Failure to thrive complicated by SUYAPA, UTI, recent COVID, SUYAPA imnproved with ivf urine growing sensitive ecoli, continue rocephin no hypoxia afib xarelto labetolol held for hypotension HTN losartan, nifedpine, hydralazine, labetolol were held for hypotension, now resolved, will monitor and if persistently elevated will restart hypernatremia due to poor intaker d5w, monitor decubitus ulcer wound care appreciated, continue local care
[2020-04-28] MEDS: Dextrose 5 % 1,000 ML 100 ML IVCONT (11:17)
[2020-04-28] MEDS: Potassium Chloride Packet 20 MEQ PACKET 40 MEQ PO (11:17)
--- NOTE | 2020-04-28 12:00 | P.PNNP_ITS ---
Subjective Subjective Date of Service: 04/28/20 Interval history: no complaints Physical Exam Vital Signs: Vital Signs: Last Vital Signs Temp 97.8 F 04/28/20 08:00 Pulse 92 04/28/20 08:00 Resp 18 04/28/20 08:00 BP 180/93 H 04/28/20 08:00 Pulse Ox 97 04/28/20 08:00 Body Mass Index 26.4 Const: Other: Gen: Appears be in no acute distress HEENT: NCAT, Moist mucosa. Pulmonary: Clear CVS: Normal S1-S2 Abdomen: BS+, Soft, Nontender Extremities: Warm well perfused Neuro: Alert and awake. Right-sided hemiparesis. General: cooperative HENMT: Head: Yes normal to inspection Mouth: Normal oral and palatal mucosa present Eyes: General: appearance normal, both eyes and all related structures Resp: Effort & Inspection: normal respiratory effort Cardio: Other: Gen: Appears be in no acute distress HEENT: NCAT, Moist mucosa. Pulmonary: Clear CVS: Normal S1-S2 Abdomen: BS+, Soft, Nontender Extremities: Warm well perfused Neuro: Alert and awake. Right-sided hemiparesis. Rate: regular rate Rhythm: regular rhythm GI: Palpation (GI): Soft to palpation and nontender : General: Yes no CVA tenderness Back/Spine/Pelvis: Back: no CVA tenderness Objective Data Labs CBC & Chem 7: 04/28/20 04:57 04/28/20 04:57 Labs: Laboratory Results - last 24 hr 04/28/20 04/28/20 04:57 04:57 WBC 5.1 RBC 2.53 L Hgb 8.1 L Hct 24.3 L MCV 96.0 MCH 32.0 MCHC 33.3 RDW 13.8 Plt Count 321 MPV 8.6 L Immature Gran % (Auto) 0.4 Neut % (Auto) 66.5 Lymph % (Auto) 17.9 L [place] % (Auto) 11.9 H Eos % (Auto) 2.9 Baso % (Auto) 0.4 Lymph # (Auto) 0.9 L [place] # (Auto) 0.6 Eos # (Auto) 0.2 Baso # (Auto) 0.0 Abs Immat Gran (auto) 0.02 Absolute Neuts (auto) 3.4 Absolute Nucleated RBC 0.000 Nucleated RBC % (auto) 0.0 Sodium 149 H Potassium 3.1 L Chloride 118 H Carbon Dioxide 23 Anion Gap 11 L BUN 24 H Creatinine 1.13 Estim Creat Clear Calc 63.0 Estimated GFR > 60 Random Glucose 161 H Calcium 7.9 L Microbiology Microbiology Results: Microbiology 04/25/20 18:43 Blood - Venous Blood Culture - Preliminary 04/25/20 18:43 Blood - Venous Blood Culture - Preliminary No growth after 48 hours. 04/25/20 18:00 Urine clean catch - Clean Catch Midstream Urine Culture - Final Escherichia coli Assessment & Plan Assessment and plan (1) Acute UTI: Problem details: Urinary infection Status: Acute Assessment and Plan: 64-year-old male with a past medical history of hypertension, hyperlipidemia, history of CVA with right-sided hemiparesis, mostly bed-bound, minimally verbal, recent diagnosis of COVID-19 presented to the hospital with a chief complaint of poor oral intake. Noted to be dehydrated, having Vi and UTI. Admitted to the hospital for further management. Failure to thrive complicated by VI, UTI, recent COVID, VI imnproved with ivf urine growing sensitive ecoli, continue rocephin no hypoxia afib xarelto labetolol held for hypotension HTN losartan, nifedpine, hydralazine, labetolol were held for hypotension, now resolved, will monitor and if persistently elevated will restart hypernatremia due to poor intake d5w, monitor replace KCL losses decubitus ulcer wound care appreciated, continue local care Time Spent With Patient Time: Total time spent is greater than 50% in coordination of care (as documented) at patient's floor/unit and/or counseling patient: Procedures Date of Service Date of Service: 04/28/20
[2020-04-28] MEDS: hydrALAZINE HCl 25 MG TABLET PO ×2 (16:20→20:44)
[2020-04-28] MEDS: Losartan Potassium 50 MG TABLET 100 MG PO (16:20)
[2020-04-28] MEDS: Atorvastatin Calcium 80 MG TABLET PO (20:44)
[2020-04-28] MEDS: cefTRIAXone sodium 1 GM in 0.9 % Sodium Chloride 50 ML IV (20:45)
[2020-04-28] MEDS: 0.9 % Sodium Chloride Flush 3 ML SYRINGE IVFLUSH (20:45)
[2020-04-28] MEDS: Gabapentin 300 MG CAPSULE PO (20:46)
[2020-04-29] MEDS: Dextrose 5 % 1,000 ML 100 ML IVCONT ×2 (01:45→11:52)
[2020-04-29 03:20] VITALS: BP 179/99; PULSE 86; RESP 18; TEMP 36.6; O2SAT 98
[2020-04-29 06:38] LABS: MANUAL DIFF FLAG NO
[2020-04-29 06:56] LABS: Basophils Percent Auto 0.4 % (0-2); Eosinophils Absolute Auto 0.2 X10*3/uL (0.0-0.4); Eosinophils Percent Auto 3.1 % (0-4); Hematocrit 25.7 % (42-52); Imm Gran Abs Auto 0.05 X10*3/uL (0.00-0.03); Imm Gran Pct Auto 0.7 % (0.0-0.4); Lymphocytes Absolute Auto 1.2 X10*3/uL (1.2-4.9); Lymphocytes Percent Auto 16.7 % (20-40); Mean Corpuscular Hemoglobin 32.7 pg (27.0-33.0); Mean Corpuscular Volume 93.5 fL (80-98); Mean Platelet Volume 8.6 fL (9.4-12.4); Monocytes Absolute Auto 0.7 X10*3/uL (0.1-1.2); Monocytes Percent Auto 9.2 % (2-11); Neutrophils Percent Auto 69.9 % (45-73); Platelet Count 322 X10*3/uL (160-400); Red Blood Count 2.75 X10*6/uL (4.60-5.80); Red Cell Distribution Width 13.5 % (11.0-16.0); White Blood Count 7.2 X10*3/uL (4.8-10.8)
[2020-04-29 07:14] LABS: Anion Gap 11 (12-20); Blood Urea Nitrogen 15 mg/dL (9-16); Calcium 7.9 mg/dL (8.4-10.2); Carbon Dioxide 26 mmol/L (22-29); Chloride 107 mmol/L (96-108); Creatinine Clr Calc Pharmacy 73.4; Estimated Glomerular Filt Rate > 60; Glucose Fasting 131 mg/dL (60-99); Sodium 141 mmol/L (135-145)
[2020-04-29] MEDS: vancomycin HCL 750 MG in 0.9 % Sodium Chloride 250 ML 265 MG IV (07:54)
[2020-04-29] MEDS: 0.9 % Sodium Chloride Flush 3 ML SYRINGE IVFLUSH ×2 (07:54→15:07)
[2020-04-29 08:00] VITALS: BP 162/91; PULSE 87; RESP 20; TEMP 36.7; O2SAT 99
[2020-04-29] MEDS: Losartan Potassium 50 MG TABLET 100 MG PO (08:03)
[2020-04-29] MEDS: Aspirin Enteric Coated 81 MG TABLET.DR PO (08:03)
[2020-04-29] MEDS: hydrALAZINE HCl 25 MG TABLET PO ×2 (08:03→14:03)
[2020-04-29] MEDS: NIFEdipine ER 30 MG TAB.ER.24 PO (08:03)
[2020-04-29 09:25] LABS: Alanine Aminotransferase 65 U/L (0-40); Albumin Level 2.5 g/dL (3.5-5.0); Alkaline Phosphatase 125 U/L (39-117); Aspartate Amino Transferase 38 U/L (5-37); Bilirubin Direct 0.2 mg/dL (0.0-0.5); Bilirubin Total 0.3 mg/dL (0.0-1.0); Total Protein 5.2 g/dL (6.5-8.0)
--- NOTE | 2020-04-29 10:20 | PC.NURSE ---
Pt. awake and alert, minimally verbal but will shake head yes or no , denies pain, LS CTA, finley in place draining cloudy pale yellow urine, trace L hand edema noted, drank 1 cup of juice at breakfast but refused any thing else, took meds crushed in peaches, refused to drink potassium packet- MD aware, resting in bed, alarm on for safety
[2020-04-29] MEDS: Potassium Chloride/H20 10 MEQ/100 ML PIGGYBACK 100 MEQ IV ×4 (10:55→14:04)
[2020-04-29 11:57] VITALS: BP 106/69; PULSE 95; RESP 20; TEMP 36.7; O2SAT 99
--- NOTE | 2020-04-29 12:12 | MHC.CM.PN ---
IMM 04/29/20 DP return to home today with resumption of [facility] as well as [facility] [employer] [employer]. An update has been sent to [facility]. Pt transportation to home via via BLS. Juan Melendez has been informed of DC. [facility] was also contacted, a VM was left with CM contact info. CM will follow.
--- NOTE | 2020-04-29 13:07 | PM.DS ---
DS: Providers Provider Date of Service: 04/30/20 Date of admission: 04/25/20 20:07 Primary care physician: Unknown Physician Consults: 04/25/20 20:03 Consult to Infectious Diseases Routine Consulting Provider: Kelsey Benitez Reason for consultation: UTI; COVID positive Consult to Nephrology Routine Consulting Provider: James Flores Reason for consultation: VI 04/26/20 14:24 Consult to Wound Care Provider Routine Consulting Provider: Xochilt Whalen Reason for consultation: wounds to coccyx, buttocks, right elbow, heels Has provider been notified: Yes DS: Diagnosis Discharge Diagnosis (1) Acute UTI: Status: Acute Problem details: Urinary infection (2) COVID-19: Status: Acute (3) VI (acute kidney injury): Status: Acute DS: Medications Discharge Medications Home Medications: Home Medications Medication Instructions Recorded Confirmed Xarelto 2.5 mg PO BID 04/25/20 04/25/20 aspirin 81 mg PO DAILY 04/25/20 04/25/20 atorvastatin 80 mg PO BEDTIME 04/25/20 04/25/20 gabapentin 300 mg PO BEDTIME 04/25/20 04/25/20 hydralazine 25 mg PO TID 04/25/20 04/25/20 labetalol 100 mg PO BID 04/25/20 04/25/20 losartan 100 mg PO DAILY 04/25/20 04/25/20 nifedipine 30 mg PO DAILY 04/25/20 04/25/20 ondansetron 4 mg TRANSLINGUAL Q6H PRN 04/25/20 04/25/20 tamsulosin 0.4 mg PO BEDTIME 04/25/20 04/25/20 Previous Rx's Medication Instructions Recorded cefuroxime axetil 250 mg PO BID 7 Days #14 tab 04/29/20 DS: Summary Hospital Course Hospital Course: HPI 64-year-old male with a past medical history of hypertension, hyperlipidemia, AFib on Xarelto, history of CVA with right-sided hemiparesis, mostly bed-bound, minimally verbal, recent diagnosis of COVID-19 on 04/13/2020 presented to the hospital with a chief complaint of poor oral intake. Spoke to the patient's son at bedside. Reportedly patient has been having decreased oral intake for the past 3 days. Patient denied any chest pain palpitations lightheadedness or dizziness. Denied any numbness tingling. Denied any fever chills cough or shortness of breath. Review of all other systems is negative except mentioned above ER course: Per ER team patient noted to be dehydrated, initial blood pressure was on the soft side, given IV fluids with improvement in blood pressure. Lab showed a KI and UTI. Given ceftriaxone. Admitted to the hospital for further management. Hospital course 64-year-old male admitted with COVID 19 , failure to thrive acute kidney injury and UTI patient was found to be COVID-19 positive, patient has no pneumonia, patient was not requiring oxygen, patient remains asymptomatic for acute kidney injury patient was started on IV fluid, creatinine trended down to baseline, acute kidney injury was resolved with IV hydration For UTI patient was started on Rocephin , urine culture grew E coli, patient was switched to p.o. Ceftin on discharge patient was seen by speech recommended modified diet, patient's p.o. intake was improving patient was stable discharged home with visiting nurse with resumption of services Time Spent with Patient Time attestation: Total time spent providing and/or coordinating discharge services: Discharge coordination time: Greater than 30 minutes Physical Exam Vital Signs: Vital Signs: Last Vital Signs Temp 98.1 F 04/29/20 11:57 Pulse 95 04/29/20 11:57 Resp 20 04/29/20 11:57 BP 106/69 04/29/20 11:57 Pulse Ox 99 04/29/20 11:57 Body Mass Index 26.4 DS: Data Data Completed and Pending Labs on day of discharge: Laboratory Results - last 24 hr 04/28/20 04/29/20 04/29/20 04:57 06:29 06:29 WBC 7.2 RBC 2.75 L Hgb 9.0 L Hct 25.7 L MCV 93.5 MCH 32.7 MCHC 35.0 RDW 13.5 Plt Count 322 MPV 8.6 L Immature Gran % (Auto) 0.7 H Neut % (Auto) 69.9 Lymph % (Auto) 16.7 L [place] % (Auto) 9.2 Eos % (Auto) 3.1 Baso % (Auto) 0.4 Lymph # (Auto) 1.2 [place] # (Auto) 0.7 Eos # (Auto) 0.2 Baso # (Auto) 0.0 Abs Immat Gran (auto) 0.05 H Absolute Neuts (auto) 5.0 Absolute Nucleated RBC 0.000 Nucleated RBC % (auto) 0.0 Sodium 141 Potassium 3.0 L Chloride 107 Carbon Dioxide 26 Anion Gap 11 L BUN 15 Creatinine 0.97 Estim Creat Clear Calc 73.4 Estimated GFR > 60 Fasting Glucose 131 H Calcium 7.9 L Total Bilirubin 0.3 Direct Bilirubin 0.2 AST 38 H ALT 65 H Alkaline Phosphatase 125 H Total Protein 5.2 L Albumin 2.5 L Preliminary micro results at discharge 04/25/20 18:43 Blood Culture - Preliminary Blood - Venous No growth after 48 hours. Discharge Plan Discharge Anticipated Discharge Date/Time: 04/29/20 11:00 Patient Disposition: Home Health Service Referrals: Physician,Unknown [Primary Care Provider] - Discharge Medications: New cefuroxime axetil 250 mg tablet 250 mg PO BID 7 Days Qty: 14 RF: 0 Continued hydralazine 25 mg tablet 25 mg PO TID RF: 0 labetalol 100 mg tablet 100 mg PO BID RF: 0 nifedipine 30 mg tablet extended release 24hr 30 mg PO DAILY RF: 0 atorvastatin 80 mg tablet 80 mg PO BEDTIME RF: 0 aspirin 81 mg tablet,delayed release (DR/EC) 81 mg PO DAILY RF: 0 tamsulosin 0.4 mg capsule 0.4 mg PO BEDTIME RF: 0 gabapentin 300 mg capsule 300 mg PO BEDTIME RF: 0 ondansetron 4 mg tablet,disintegrating 4 mg translingual Q6H PRN (Reason: Nausea And Vomiting) RF: 0 losartan 100 mg tablet 100 mg PO DAILY RF: 0 Xarelto 2.5 mg tablet 2.5 mg PO BID RF: 0 Discharge Orders: Discharge Order (Routine); Ordered 04/29/20 Ordered By: Damian Beavers Diet: advance to usual diet Activity on Discharge: As tolerated Stand Alone Forms: Patient Portal Discharge page Care Plan Goals: prevent dehydration Health Concerns: covid , dehydration Plan of Treatment: encourage oral hydration, visiting nurse Discharge Date/Time: 04/29/20 17:00
[2020-04-29 14:03] VITALS: BP 132/79; PULSE 92
== END 2020-04-29 17:00 | disposition home health service (06) | DRG 689 ==
LOC: HO.ED 20:08 → HO.EDOVER 20:20 → HO.IMC 21:11
PROVIDERS: Internal Medicine; Internal Medicine Hypertension Specialist; Admitting Provider Hospitalist; Emergency Provider Emergency Medicine; Visit Provider Internal Medicine
DX: N39.0 Urinary tract infection, site not specified (principal); U07.1 COVID-19; I69.951 Hemiplegia and hemiparesis following unspecified cerebrovascular disease affecting right dominant side; N17.9 Acute kidney failure, unspecified; E78.5 Hyperlipidemia, unspecified; E86.0 Dehydration; Z86.16 Personal history of COVID-19; L89.621 Pressure ulcer of left heel, stage 1; L89.611 Pressure ulcer of right heel, stage 1; R62.7 Adult failure to thrive; Z68.26 Body mass index [BMI] 26.0-26.9, adult; E87.6 Hypokalemia; B96.20 Unspecified Escherichia coli [E. coli] as the cause of diseases classified elsewhere; L89.152 Pressure ulcer of sacral region, stage 2; I10 Essential (primary) hypertension; I48.0 Paroxysmal atrial fibrillation; E78.00 Pure hypercholesterolemia, unspecified; Z79.01 Long term (current) use of anticoagulants; Z79.82 Long term (current) use of aspirin; Z79.899 Other long term (current) drug therapy
CPT/HCPCS: 36415; 70450; 71045; 76705; 80048; 80076; 81001; 81003; 82947; 83605; 83690; 83880; 84156; 84300; 84484; 85025; 85610; 85730; 87040; 87086; 87088; 87147; 87186; 87205; 87635; 92610; 93005; 96374; 99232; 99285; J0696; J3370

== ENCOUNTER 2020-05-01 11:31 | Emergency (ER) | payer OTHER, SELFPAY ==
--- NOTE | ~2020-05-01 | XR_ITS ---
EXAMINATION: XR CHEST CLINICAL INFORMATION: Weakness COMPARISON: Chest radiographs 04/25/2020, 04/15/2020 TECHNIQUE: Portable upright AP view of the chest was obtained. FINDINGS: Patient is rotated to the right there are low lung volumes. There may be subsegmental atelectasis right lateral base. The lungs otherwise clear. The vascularity is normal. There is no pneumothorax or pneumomediastinum. No acute bony abnormality. XR/XR chest 1V IMPRESSION: Rotated, low lung volumes. Probable subsegmental atelectasis right lateral base. Lungs otherwise clear.
[2020-05-01 11:57] VITALS: BP 91/63; PULSE 75; RESP 15; TEMP 36.4; BMI 28.0
--- NOTE | 2020-05-01 12:20 | ECG_ITS ---
Test Reason : HYPOTENSION Blood Pressure : / mmHG Vent. Rate : 069 BPM Atrial Rate : 069 BPM P-R Int : 140 ms QRS Dur : 100 ms QT Int : 424 ms P-R-T Axes : 021 051 059 degrees QTc Int : 454 ms Normal sinus rhythm Normal ECG No previous ECGs available Referred By: Marycruz Palomares Electronically Signed By:Emmanuel Freitas
[2020-05-01] MEDS: 0.9 % Sodium Chloride 1,000 ML 999 ML IVCONT ×3 (12:58→15:57)
--- NOTE | 2020-05-01 13:01 | ED_ITS ---
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 intake. Per son patient was seen and treated in the ED/admitted from 04/25-04/29, for the same complaint, however I cannot find documentation of this. Son also reports family is looking for 24 hour care/LTC facility. Son denies fever, abdominal pain, shortness of breath, nausea/vomiting, diarrhea Related Data Home Medications Medication Instructions Recorded Confirmed Xarelto 2.5 mg PO BID 04/25/20 05/01/20 atorvastatin 80 mg PO BEDTIME 04/25/20 05/01/20 cefuroxime axetil 250 tab PO BID 05/01/20 05/01/20 Previous Rx's Medication Instructions Recorded aspirin 81 mg tablet,delayed 81 mg PO DAILY 90 Days #90 tab 02/07/20 release hydralazine 25 mg tablet 25 mg PO TID 90 Days #270 tab 02/07/20 labetalol 100 mg tablet 100 mg PO BID 90 Days #180 tab 02/07/20 losartan 100 mg tablet 100 mg PO DAILY 90 Days #90 tab 02/07/20 zinc oxide 13 % topical cream 1 appl TOPICAL BID-QID PRN 30 Days 02/07/20 #454 g nifedipine 30 mg tablet,extended 30 mg PO DAILY 90 Days #90 tab 02/14/20 release 24 hr wet wipes #5 units 03/12/20 tamsulosin 0.4 mg capsule 0.4 mg PO BEDTIME 90 Days #90 cap 03/22/20 miscellaneous medical supply #1 ea 03/26/20 miscellaneous medical supply #1 ea 03/26/20 miscellaneous medical supply #1 ea 03/26/20 miscellaneous medical supply #1 ea 03/26/20 gabapentin 300 mg capsule 300 mg PO BEDTIME 30 Days #30 cap 03/27/20 miscellaneous medical supply #1 ea 03/27/20 ondansetron 4 mg PO Q6-8H PRN #10 tab 04/15/20 Allergies Allergy/AdvReac Type Severity Reaction Status Date / Time No Known Allergies Allergy Unverified 05/01/20 13:02 [No Known Allergies*] Review of Systems Review of Systems: Constitutional: No Weight loss, No Fever, No Chills, +decreased PO intake Cardiovascular: No Chest Pain, No SOB Respiratory: No Cough Gastrointestinal: No Nausea, No Vomiting, No Diarrhea, No Constipation, No Abdominal pain Genitourinary: No irregular bleeding, No Hematuria Musculoskeletal: No Joint Swelling Skin: No Skin Lesions, No rash Neuro: No Weakness History obtained from son due to patient's baseline dysarthria Yes all other systems are reviewed and are negative [facility] Past Medical History Attestation statement: The following information was validated with the patient. Medical History COVID-19 High cholesterol History of CVA (cerebrovascular accident) HTN (hypertension) HTN (hypertension) Paroxysmal atrial fibrillation Stroke Surgical History No pertinent past surgical history Family History Family History (System 05/01/20 @ 13:02 by Tabby Coon) Father No problems noted. Mother No problems noted. Social History Social History (System 05/01/20 @ 13:02 by Tabby Coon) Household Members: Family Housing: House Alcohol intake: unknown Smoking Status: Unknown if ever smoked Smoked in Last 30 Days: No Advance Directives: Yes Advance Directives on File: Yes Advance Directives Date on File: 02/14/20 service: No Current occupational status: disabled Physical Exam Vital Signs: Vital Signs: Last Vital Signs Temp 97.9 F 05/01/20 18:48 Pulse 84 05/01/20 18:48 Resp 20 05/01/20 18:48 BP 106/71 05/01/20 18:48 Pulse Ox 98 05/01/20 18:48 Body Mass Index 28.0 Const: General: alert; No acute distress Limitations: other limitations (prior CVA) HENMT: Head: Yes normal to inspection Ears: hearing grossly normal bilaterally General nose exam: Normal external nose present Face and sinu s: Yes normal facial exam Mouth: mucous membranes dry Eyes: General: appearance normal, both eyes and all related structures Pupils: Equal, round and reactive pupils present EOM: EOMs intact bilaterally Neck: Neck: Yes normal visual inspection Resp: Effort & Inspection: normal respiratory effort Auscultation: clear to auscultation bilaterally and no wheezes Cardio: Rate: regular rate Heart sounds: S1 normal heart sound present and S2 normal heart sound present GI: Inspection: Yes normal to inspection Palpation (GI): Soft to palpation, nontender, no guarding and not rigid Skin: Rashes: no rashes Wounds: no wounds Neuro: Other: Right-sided hemiparesis. Dysarthria Cranial nerves: Yes Equal, round and reactive pupils present Extrem: General: Yes normal to inspection and Yes no pedal edema Course Course Course Narrative: Family is requesting long-term care facility needs as do not have resources to care for patient. Patient is dysarthric however I spoke to him and threw his nodding yes and no he is not interested in going to a facility. Case management is aware. Patient is not getting good care at home, however would still like to go back home. His son is his healthcare proxy. -no leukocytosis. H&H at patient's baseline. Mild VI likely from dehydration > will give IVF and repeat. Labs otherwise at patient's baseline XR chest 1V IMPRESSION: Rotated, low lung volumes. Probable subsegmental atelectasis right lateral base. Lungs otherwise clear. -1835--repeat renal function after IVF improved/VI resolved -UA negative 2100- ED care transferred to [facility] pending PT/CM Medical Decision Making [facility] Narrative Medical decision making narrative: 64-year-old male with a past medical history of CVA with right-sided hemiparesis and dysarthria now with chronic finley, HTN, HLD, previous COVID-19 presenting to the ED with son who is squeegee finisher, complaining low blood pressures yesterday, and poor p.o. intake. On exam mildly hypotensive dry mucous membranes, otherwise nontoxic appearing. Will rule out dehydration/metabolic/infectious etiology. Anticipate case management/PT eval if patient does not meet inpatient criteria Low concern for severe sepsis vital sign abnormalities suspected from dehydration Plan: EKG, labs, UA, CXR, IVF, PT/case management Lab Data Result diagrams: 05/01/20 13:01 05/01/20 17:37 Labs: Lab Results 05/01/20 05/01/20 05/01/20 Range/Units 13:00 13:01 13:01 WBC 8.7 (4.8-10.8) X10*3/uL RBC 3.14 L (4.60-5.80) X10*6/uL Hgb 10.2 L (14.0-18.0) g/dl Hct 29.3 L (42-52) % MCV 93.3 (80-98) fL MCH 32.5 (27.0-33.0) pg MCHC 34.8 (31.0-36.0) g/dl RDW 13.6 (11.0-16.0) % Plt Count 447 H D (160-400) X10*3/uL MPV 8.9 L (9.4-12.4) fL Immature Gran % (Auto) 1.0 H (0.0-0.4) % Neut % (Auto) 67.1 (45-73) % Lymph % (Auto) 17.4 L (20-40) % [place] % (Auto) 11.6 H (2-11) % Eos % (Auto) 2.6 (0-4) % Baso % (Auto) 0.3 (0-2) % Lymph # (Auto) 1.5 (1.2-4.9) X10*3/uL [place] # (Auto) 1.0 (0.1-1.2) X10*3/uL Eos # (Auto) 0.2 (0.0-0.4) X10*3/uL Baso # (Auto) 0.0 (0.0-0.2) X10*3/uL Abs Immat Gran (auto) 0.09 H (0.00-0.03) X10*3/uL Absolute Neuts (auto) 5.9 (2.0-8.3) X10*3/uL Absolute Nucleated RBC 0.000 (0.0-0.012) X10*3/uL Nucleated RBC % (auto) 0.0 (0.0-0.2) /100WBC Hold Blue Top Sodium 134 L (135-145) mmol/L Potassium 3.2 L (3.3-5.1) mmol/L Chloride 99 (96-108) mmol/L Carbon Dioxide 26 (22-29) mmol/L Anion Gap 12 (12-20) BUN 27 H D (9-16) mg/dL Creatinine 1.44 H (0.5-1.4) mg/dL Estim Creat Clear Calc 55.6 Estimated GFR 49 Random Glucose 193 H (60-115) mg/dL Calcium 8.0 L (8.4-10.2) mg/dL Magnesium 1.7 (1.6-2.6) mg/dL Total Bilirubin 0.7 (0.0-1.0) mg/dL Direct Bilirubin 0.3 (0.0-0.5) mg/dL AST 22 D (5-37) U/L ALT 46 H (0-40) U/L Alkaline Phosphatase 141 H (39-117) U/L Total Protein 5.6 L (6.5-8.0) g/dL Albumin 2.7 L (3.5-5.0) g/dL Lipase (8-78) U/L Urine Color Urine Appearance Urine pH (5.0-8.0) Ur Specific Violet (1.005-1.025) Urine Protein (NEG-TRACE) MG/DL Urine Glucose (UA) (NEG) MG/DL Urine Ketones (NEG) MG/DL Urine Blood (NEG) Urine Nitrite (NEG) Ur Leukocyte Esterase (NEG) Urine RBC (0) /HPF Urine WBC (0-4) /HPF Ur Squamous Epith Cells /LPF Uric Acid Crystals /LPF Urine Bacteria /LPF COVID-19 (GISELLE) Negative (Negative) COVID-19 Clin Com See Note 05/01/20 05/01/20 05/01/20 Range/Units 13:01 13:01 17:37 WBC (4.8-10.8) X10*3/uL RBC (4.60-5.80) X10*6/uL Hgb (14.0-18.0) g/dl Hct (42-52) % MCV (80-98) fL MCH (27.0-33.0) pg MCHC (31.0-36.0) g/dl RDW (11.0-16.0) % Plt Count (160-400) X10*3/uL MPV (9.4-12.4) fL Immature Gran % (Auto) (0.0-0.4) % Neut % (Auto) (45-73) % Lymph % (Auto) (20-40) % [place] % (Auto) (2-11) % Eos % (Auto) (0-4) % Baso % (Auto) (0-2) % Lymph # (Auto) (1.2-4.9) X10*3/uL [place] # (Auto) (0.1-1.2) X10*3/uL Eos # (Auto) (0.0-0.4) X10*3/uL Baso # (Auto) (0.0-0.2) X10*3/uL Abs Immat Gran (auto) (0.00-0.03) X10*3/uL Absolute Neuts (auto) (2.0-8.3) X10*3/uL Absolute Nucleated RBC (0.0-0.012) X10*3/uL Nucleated RBC % (auto) (0.0-0.2) /100WBC Hold Blue Top SEE NOTE Sodium 137 (135-145) mmol/L Potassium 3.6 (3.3-5.1) mmol/L Chloride 106 (96-108) mmol/L Carbon Dioxide 26 (22-29) mmol/L Anion Gap 9 L (12-20) BUN 23 H (9-16) mg/dL Creatinine 1.21 (0.5-1.4) mg/dL Estim Creat Clear Calc 66.1 Estimated GFR > 60 Random Glucose 108 D (60-115) mg/dL Calcium 7.4 L D (8.4-10.2) mg/dL Magnesium (1.6-2.6) mg/dL Total Bilirubin (0.0-1.0) mg/dL Direct Bilirubin (0.0-0.5) mg/dL AST (5-37) U/L ALT (0-40) U/L Alkaline Phosphatase (39-117) U/L Total Protein (6.5-8.0) g/dL Albumin (3.5-5.0) g/dL Lipase 43 (8-78) U/L Urine Color Urine Appearance Urine pH (5.0-8.0) Ur Specific Violet (1.005-1.025) Urine Protein (NEG-TRACE) MG/DL Urine Glucose (UA) (NEG) MG/DL Urine Ketones (NEG) MG/DL Urine Blood (NEG) Urine Nitrite (NEG) Ur Leukocyte Esterase (NEG) Urine RBC (0) /HPF Urine WBC (0-4) /HPF Ur Squamous Epith Cells /LPF Uric Acid Crystals /LPF Urine Bacteria /LPF COVID-19 (GISELLE) (Negative) COVID-19 Clin Com 05/01/20 Range/Units 19:22 WBC (4.8-10.8) X10*3/uL RBC (4.60-5.80) X10*6/uL Hgb (14.0-18.0) g/dl Hct (42-52) % MCV (80-98) fL MCH (27.0-33.0) pg MCHC (31.0-36.0) g/dl RDW (11.0-16.0) % Plt Count (160-400) X10*3/uL MPV (9.4-12.4) fL Immature Gran % (Auto) (0.0-0.4) % Neut % (Auto) (45-73) % Lymph % (Auto) (20-40) % [place] % (Auto) (2-11) % Eos % (Auto) (0-4) % Baso % (Auto) (0-2) % Lymph # (Auto) (1.2-4.9) X10*3/uL [place] # (Auto) (0.1-1.2) X10*3/uL Eos # (Auto) (0.0-0.4) X10*3/uL Baso # (Auto) (0.0-0.2) X10*3/uL Abs Immat Gran (auto) (0.00-0.03) X10*3/uL Absolute Neuts (auto) (2.0-8.3) X10*3/uL Absolute Nucleated RBC (0.0-0.012) X10*3/uL Nucleated RBC % (auto) (0.0-0.2) /100WBC Hold Blue Top Sodium (135-145) mmol/L Potassium (3.3-5.1) mmol/L Chloride (96-108) mmol/L Carbon Dioxide (22-29) mmol/L Anion Gap (12-20) BUN (9-16) mg/dL Creatinine (0.5-1.4) mg/dL Estim Creat Clear Calc Estimated GFR Random Glucose (60-115) mg/dL Calcium (8.4-10.2) mg/dL Magnesium (1.6-2.6) mg/dL Total Bilirubin (0.0-1.0) mg/dL Direct Bilirubin (0.0-0.5) mg/dL AST (5-37) U/L ALT (0-40) U/L Alkaline Phosphatase (39-117) U/L Total Protein (6.5-8.0) g/dL Albumin (3.5-5.0) g/dL Lipase (8-78) U/L Urine Color YELLOW Urine Appearance CLEAR Urine pH 5.5 (5.0-8.0) Ur Specific Violet 1.020 (1.005-1.025) Urine Protein NEG (NEG-TRACE) MG/DL Urine Glucose (UA) NEG (NEG) MG/DL Urine Ketones NEG (NEG) MG/DL Urine Blood TRACE (NEG) Urine Nitrite NEG (NEG) Ur Leukocyte Esterase 1+ H (NEG) Urine RBC 0-2 (0) /HPF Urine WBC 1-4 (0-4) /HPF Ur Squamous Epith Cells NONE /LPF Uric Acid Crystals 3+ /LPF Urine Bacteria 1+ /LPF COVID-19 (GISELLE) (Negative) COVID-19 Clin Com ECG Data Attestation: I personally reviewed and interpreted this ECG as follows: Interpretation: EKG normal sinus rhythm. Rate of 69. T-wave inversion in V1. Q-wave in lead 3 Discharge Plan Discharge Clinical Impression: Dehydration Prescriptions: No Action (DME) wet wipes See Rx Instructions .ROUTE .MEDSUPPLY Qty: 5 RF: 3 (DME) miscellaneous medical supply Misc See Rx Instructions .ROUTE .MEDSUPPLY Qty: 1 RF: 0 (DME) miscellaneous medical supply Misc See Rx Instructions .ROUTE .MEDSUPPLY Qty: 1 RF: 0 (DME) miscellaneous medical supply Misc See Rx Instructions .ROUTE .MEDSUPPLY Qty: 1 RF: 0 (DME) miscellaneous medical supply Misc See Rx Instructions .ROUTE .MEDSUPPLY Qty: 1 RF: 0 ondansetron 4 mg tablet,disintegrating 4 mg PO Q6-8H PRN (Reason: nausea and vomiting) Qty: 10 RF: 0 atorvastatin 80 mg tablet 80 mg PO BEDTIME RF: 0 Xarelto 2.5 mg tablet 2.5 mg PO BID RF: 0 cefuroxime axetil 250 mg tablet 250 tab PO BID RF: 0 aspirin [Adult Low Dose Aspirin] 81 mg tablet,delayed release (DR/EC) 81 mg PO DAILY 90 Days Qty: 90 RF: 4 hydralazine 25 mg tablet 25 mg PO TID 90 Days Qty: 270 RF: 4 labetalol 100 mg tablet 100 mg PO BID 90 Days Qty: 180 RF: 4 losartan 100 mg tablet 100 mg PO DAILY 90 Days Qty: 90 RF: 4 Desitin Rapid Relief 13 % cream 1 appl topical BID-QID PRN (Reason: skin irritation) 30 Days Qty: 454 RF: 0 nifedipine 30 mg tablet extended release 24hr 30 mg PO DAILY 90 Days Qty: 90 RF: 4 gabapentin 300 mg capsule 300 mg PO BEDTIME 30 Days Qty: 30 RF: 0 (DME) miscellaneous medical supply Misc See Rx Instructions .ROUTE .MEDSUPPLY Qty: 1 RF: 0 tamsulosin 0.4 mg capsule 0.4 mg PO BEDTIME 90 Days Qty: 90 RF: 1
[2020-05-01 13:06] LABS: MANUAL DIFF FLAG NO
[2020-05-01 13:15] LABS: Basophils Percent Auto 0.3 % (0-2); Eosinophils Absolute Auto 0.2 X10*3/uL (0.0-0.4); Eosinophils Percent Auto 2.6 % (0-4); Hematocrit 29.3 % (42-52); Hemoglobin 10.2 g/dl (14.0-18.0); Imm Gran Abs Auto 0.09 X10*3/uL (0.00-0.03); Lymphocytes Absolute Auto 1.5 X10*3/uL (1.2-4.9); Lymphocytes Percent Auto 17.4 % (20-40); Mean Corpuscular HGB Conc 34.8 g/dl (31.0-36.0); Mean Corpuscular Hemoglobin 32.5 pg (27.0-33.0); Mean Corpuscular Volume 93.3 fL (80-98); Mean Platelet Volume 8.9 fL (9.4-12.4); Monocytes Percent Auto 11.6 % (2-11); Neutrophils Absolute Auto 5.9 X10*3/uL (2.0-8.3); Neutrophils Percent Auto 67.1 % (45-73); Platelet Count 447 X10*3/uL (160-400); Red Blood Count 3.14 X10*6/uL (4.60-5.80); Red Cell Distribution Width 13.6 % (11.0-16.0); White Blood Count 8.7 X10*3/uL (4.8-10.8)
[2020-05-01 13:28] LABS: COVID-19 Test Negative (Negative); IDNOW Serial# 9DD0AD1C
[2020-05-01 13:51] VITALS: BP 95/54; PULSE 61; RESP 16; O2SAT 100
[2020-05-01 13:51] LABS: Alanine Aminotransferase 46 U/L (0-40); Albumin Level 2.7 g/dL (3.5-5.0); Alkaline Phosphatase 141 U/L (39-117); Anion Gap 12 (12-20); Aspartate Amino Transferase 22 U/L (5-37); Bilirubin Direct 0.3 mg/dL (0.0-0.5); Bilirubin Total 0.7 mg/dL (0.0-1.0); Blood Urea Nitrogen 27 mg/dL (9-16); Carbon Dioxide 26 mmol/L (22-29); Chloride 99 mmol/L (96-108); Creatinine Clr Calc Pharmacy 55.6; Estimated Glomerular Filt Rate 49; Glucose Random 193 mg/dL (60-115); Lipase 43 U/L (8-78); Magnesium 1.7 mg/dL (1.6-2.6); Potassium 3.2 mmol/L (3.3-5.1); Sodium 134 mmol/L (135-145); Total Protein 5.6 g/dL (6.5-8.0)
[2020-05-01 14:37] VITALS: BP 95/54; PULSE 61; O2SAT 100
[2020-05-01] MEDS: Potassium Chloride Packet 20 MEQ PACKET 40 MEQ PO (14:38)
--- NOTE | 2020-05-01 14:38 | PC.NURSE ---
Pt has three areas of compromised skin integrity, bialterally on his sacrum and behind his right elbow.
[2020-05-01 16:49] VITALS: BP 116/80; PULSE 82; RESP 20; TEMP 36.3; O2SAT 97
[2020-05-01 18:22] LABS: Anion Gap 9 (12-20); Blood Urea Nitrogen 23 mg/dL (9-16); Calcium 7.4 mg/dL (8.4-10.2); Carbon Dioxide 26 mmol/L (22-29); Chloride 106 mmol/L (96-108); Creatinine Clr Calc Pharmacy 66.1; Estimated Glomerular Filt Rate > 60; Glucose Random 108 mg/dL (60-115); Potassium 3.6 mmol/L (3.3-5.1); Sodium 137 mmol/L (135-145)
[2020-05-01 18:48] VITALS: BP 106/71; PULSE 84; RESP 20; TEMP 36.6; O2SAT 98
[2020-05-01 19:29] LABS: Glucose Urine UA NEG (NEG); Leukocyte Esterase Urine 1+ (NEG); Nitrite Urine NEG (NEG); PH 5.5 (5.0-8.0); UACC Culture Trigger YES; Urine Blood TRACE (NEG); Urine Ketones NEG (NEG); Urine Protein NEG (NEG-TRACE)
[2020-05-01 19:31] LABS: Appearance Urine CLEAR; Color Urine YELLOW
[2020-05-01 19:36] LABS: Bacteria Urine 1+ /LPF; RBC Urine 0-2 /HPF (0)
[2020-05-01 19:37] LABS: Uric Acid Crystals Urine 3+ /LPF
[2020-05-01 21:26] VITALS: BP 113/70; PULSE 76; RESP 20; TEMP 36.5; O2SAT 96
--- NOTE | 2020-05-01 21:51 | MHC.CM.ED ---
CM met with pt with an poultry pinner, pt Greek speaking, hx CVA and dysarthria. Unsure if pt is understanding questions, even with poultry pinner. Will call family. Attempted to call HCP/son Al Boggs ([phone]). No answer. Message left. CM to follow for d/c needs
--- NOTE | 2020-05-01 21:53 | MHC.CM.ED ---
CM called HCP/SON at 2030, son at pt bedside. Spoke to son, Al with translator and interpreter and with a [id number], Michael via telephone. Family and Al agree that they can no longer provide the care that their father needs. Al visibly upset. Explained that STR was not recommended secondary to hx stroke and inability to follow directions. PT recommends LTC. Family agrees. Pt shakes his head no, but son does not believe he understands. Family would like referrals to [facility] choice and [facility] as second choice. Al aware that CM will call him tomorrow with any bed offers. Al and family understand that insurance and bed availability will determine choices. Assured that no decisions would be made regarding care and placement without their approval. Family aware that pt will remain in the ED overnight. CM to place referrals tonight. CM to follow for d/c needs
[2020-05-02 03:49] VITALS: RESP 18
[2020-05-02 05:21] VITALS: BP 137/79; PULSE 72; RESP 16; O2SAT 96
[2020-05-02 06:00] VITALS: BP 133/83; PULSE 83; RESP 18; O2SAT 99
--- NOTE | 2020-05-02 07:34 | PC.NURSE ---
report taken from socrates sexton pt here for case mgmt eval in am, per previous shift rn, pt has r side defecits from previous cva and has difficulty living independently at home. pt has finley catheter in place draining clear yellow urine. pt non-verbal able to nod for response, expressing no apparent distress to this rn. wctm.
[2020-05-02] MEDS: oxyCODONE HCl Immed Release 5 MG TABLET PO (09:14)
--- NOTE | 2020-05-02 09:37 | MHC.CM.ED ---
Patient remains in ER. Both [facility] and [facility] are able to offer beds. T/W spoke with patient's son, Al via telephone at [phone] with the help of a telephonic teacher emotionally impaired. [facility] is still first choice. [facility] aware and will atteempt to obtain insurance auth. Continue to monitor for d/c needs.
[2020-05-02 11:44] VITALS: BP 144/85; PULSE 80; RESP 16; O2SAT 97
[2020-05-02 13:07] VITALS: BP 137/85; PULSE 84; RESP 18; TEMP 36.8; O2SAT 98
--- NOTE | 2020-05-02 13:10 | PC.NURSE ---
Per YONAS Singh plan to hold home anti-htn meds for 1 day, restart tomorrow r/t frequent hypo bps.
[2020-05-02] MEDS: Aspirin Enteric Coated 81 MG TABLET.DR PO (14:25)
--- NOTE | 2020-05-02 14:31 | PC.NURSE ---
Report called to [facility]. Spoke with Johnna-.
== END 2020-05-02 14:30 | disposition skilled nursing facility (03) ==
PROVIDERS: Physician Assistant; Emergency Provider Emergency Medicine Emergency Medical Services; PCP Family Medicine
DX: E86.0 Dehydration (principal); I10 Essential (primary) hypertension; Z20.822 Contact with and (suspected) exposure to COVID-19; Z79.899 Other long term (current) drug therapy; Z86.16 Personal history of COVID-19; Z79.82 Long term (current) use of aspirin; Z86.73 Personal history of transient ischemic attack (TIA), and cerebral infarction without residual deficits; Z79.01 Long term (current) use of anticoagulants
CPT/HCPCS: 36415; 71045; 80048; 80076; 81001; 81003; 83690; 83735; 85025; 87086; 87635; 93005; 97162; 99284

== ENCOUNTER 2020-05-10 08:47 | Outpatient (RCR) | payer OTHER, SELFPAY | END 2020-07-10 09:13 | disposition home or self-care (01) | LOC: HO.WCC 08:47 | PROVIDERS: Visit Provider Physician Assistant | DX: L89.013 Pressure ulcer of right elbow, stage 3 (principal); L89.610 Pressure ulcer of right heel, unstageable; I69.351 Hemiplegia and hemiparesis following cerebral infarction affecting right dominant side; I10 Essential (primary) hypertension; L84 Corns and callosities | CPT/HCPCS: 11042; 99204; 99212; 99213 ==

== ENCOUNTER → 2020-06-20 08:58 | Outpatient (BNVA) | payer OTHER, SELFPAY | PROVIDERS: PCP Family Medicine; Visit Provider Urology | DX: R32 Unspecified urinary incontinence (principal); N31.9 Neuromuscular dysfunction of bladder, unspecified | CPT/HCPCS: 99212 ==

== ENCOUNTER 2020-07-01 18:28 | Outpatient (REF) | payer OTHER, SELFPAY | END 2020-07-01 18:29 | disposition home or self-care (01) | LOC: HO.LNP 18:28 | PROVIDERS: Visit Provider Family Medicine | DX: Z20.822 Contact with and (suspected) exposure to COVID-19 (principal) | CPT/HCPCS: U0003; U0005 ==

== ENCOUNTER 2020-07-24 18:34 | Emergency (ER) | payer OTHER, SELFPAY ==
[2020-07-24 18:53] VITALS: BMI 22.1
[2020-07-24 18:59] VITALS: BP 107/76; PULSE 86; RESP 16; TEMP 36.9; O2SAT 96
--- NOTE | 2020-07-24 19:26 | ED_ITS ---
HPI - Chest Pain General Chief Complaint: Chest Pain Stated Complaint: CP Time Seen by Provider: 07/24/20 19:26 Source: RN notes reviewed Mode of arrival: EMS Limitations: language barrier History of Present Illness HPI narrative: Patient with severe dysarthria secondary to CVA [facility] for questionable chest pain and patient itching his genitalia when arrived patient unable to answer any questions does not look in any distress stable vitals Related Data Home Medications Medication Instructions Recorded Confirmed Xarelto 2.5 mg PO BID 04/25/20 05/01/20 atorvastatin 80 mg PO BEDTIME 04/25/20 05/01/20 cefuroxime axetil 250 tab PO BID 05/01/20 05/01/20 amlodipine 5 mg tablet 5 mg PO DAILY 06/20/20 potassium chloride 20 mEq 20 meq PO DAILY 06/20/20 tablet,extended release(part/cryst) Previous Rx's Medication Instructions Recorded aspirin 81 mg tablet,delayed 81 mg PO DAILY 90 Days #90 tab 02/07/20 release hydralazine 25 mg tablet 25 mg PO TID 90 Days #270 tab 02/07/20 labetalol 100 mg tablet 100 mg PO BID 90 Days #180 tab 02/07/20 losartan 100 mg tablet 100 mg PO DAILY 90 Days #90 tab 02/07/20 zinc oxide 13 % topical cream 1 appl TOPICAL BID-QID PRN 30 Days 02/07/20 #454 g nifedipine 30 mg tablet,extended 30 mg PO DAILY 90 Days #90 tab 02/14/20 release 24 hr wet wipes #5 units 03/12/20 tamsulosin 0.4 mg capsule 0.4 mg PO BEDTIME 90 Days #90 cap 03/22/20 miscellaneous medical supply #1 ea 03/26/20 miscellaneous medical supply #1 ea 03/26/20 miscellaneous medical supply #1 ea 03/26/20 miscellaneous medical supply #1 ea 03/26/20 gabapentin 300 mg capsule 300 mg PO BEDTIME 30 Days #30 cap 03/27/20 miscellaneous medical supply #1 ea 03/27/20 ondansetron 4 mg PO Q6-8H PRN #10 tab 04/15/20 nystatin 1 appl TOPICAL TID #60 g 07/24/20 Allergies Allergy/AdvReac Type Severity Reaction Status Date / Time No Known Allergies Allergy Verified 07/01/20 13:54 [No Known Allergies*] Review of Systems Review of Systems: Yes Unobtainable due to mental condition (cva) [facility] Past Medical History Medical History COVID-19 High cholesterol History of CVA (cerebrovascular accident) HTN (hypertension) HTN (hypertension) Paroxysmal atrial fibrillation Stroke Surgical History No pertinent past surgical history Family History Family History Father No problems noted. Mother No problems noted. Social History Social History Household Members: Family Housing: House Do you presently have visiting nurse or other home services: No Unable to assess alcohol history related to: Unknown Alcohol intake: unknown Patient Tobacco Use Status: Tobacco use Unknown Use of substances other than those prescribed or required for medical reasons: Unknown Advance Directives: Yes Advance Directives on File: Yes Advance Directives Date on File: 02/14/20 service: No Current occupational status: disabled Physical Exam Vital Signs: Vital Signs: Last Vital Signs Temp 98.5 F 07/24/20 18:59 Pulse 86 07/24/20 18:59 Resp 16 07/24/20 18:59 BP 107/76 07/24/20 18:59 Pulse Ox 96 07/24/20 18:59 Body Mass Index 22.1 Appearance: Alert. And awake No acute distress. Eyes: PERRLA, No Nystagmus ENT: Pharynx normal. Oral Mucosa moist Neck: Normal inspection. Neck supple. CVS: Normal heart rate and rhythm. Pulses normal. Respiratory: No respiratory distress. Equal air entry bilateral, no wheezing/rales/rhonchi Abdomen: Soft and nontender. Bowel sounds are present, no mass palpable, no CVA tenderness Genitilia: Walker catheter in place superficial rash intertrigo Skin: Skin warm and dry. Normal skin color. Normal skin turgor. Extremities: No lower extremity edema. No calf tenderness Neuro: Alert right-sided dense hemiparesis MDM - Chest Pain MDM Narrative Medical decision making narrative: Patient with questionable chest pain normal EKG and troponin no distress noticed in the ER vital stable rash generally likely intertrigo [facility] Lab Data Attestation: I reviewed the patient's lab results. Result diagrams: 07/24/20 19:55 07/24/20 19:55 Labs: Lab Results 07/24/20 07/24/20 07/24/20 Range/Units 19:55 19:55 19:55 WBC 8.8 (4.8-10.8) X10*3/uL RBC 3.17 L (4.60-5.80) X10*6/uL Hgb 10.2 L (14.0-18.0) g/dl Hct 28.9 L (42-52) % MCV 91.2 (80-98) fL MCH 32.2 (27.0-33.0) pg MCHC 35.3 (31.0-36.0) g/dl RDW 14.0 (11.0-16.0) % Plt Count 248 D (160-400) X10*3/uL MPV 9.0 L (9.4-12.4) fL Immature Gran % (Auto) 0.2 (0.0-0.4) % Neut % (Auto) 73.6 H (45-73) % Lymph % (Auto) 17.1 L (20-40) % [place] % (Auto) 7.9 (2-11) % Eos % (Auto) 1.0 (0-4) % Baso % (Auto) 0.2 (0-2) % Lymph # (Auto) 1.5 (1.2-4.9) X10*3/uL [place] # (Auto) 0.7 (0.1-1.2) X10*3/uL Eos # (Auto) 0.1 (0.0-0.4) X10*3/uL Baso # (Auto) 0.0 (0.0-0.2) X10*3/uL Abs Immat Gran (auto) 0.02 (0.00-0.03) X10*3/uL Absolute Neuts (auto) 6.5 (2.0-8.3) X10*3/uL Absolute Nucleated RBC 0.000 (0.0-0.012) X10*3/uL Nucleated RBC % (auto) 0.0 (0.0-0.2) /100WBC Sodium 137 (135-145) mmol/L Potassium 3.5 (3.3-5.1) mmol/L Chloride 104 (96-108) mmol/L Carbon Dioxide 23 (22-29) mmol/L Anion Gap 14 (12-20) BUN 23 H (9-16) mg/dL Creatinine 1.16 (0.5-1.4) mg/dL Estim Creat Clear Calc 66.4 Estimated GFR > 60 Random Glucose 105 (60-115) mg/dL Calcium 9.1 D (8.4-10.2) mg/dL Total Bilirubin 0.6 (0.0-1.0) mg/dL Direct Bilirubin 0.3 (0.0-0.5) mg/dL AST 15 (5-37) U/L ALT 18 (0-40) U/L Alkaline Phosphatase 109 D (39-117) U/L Troponin I High Sens 8.5 (<3.5-35.0) ng/L Total Protein 5.9 L (6.5-8.0) g/dL Albumin 3.2 L (3.5-5.0) g/dL ECG Data ECG #1: Attestation: I personally reviewed and interpreted this ECG as follows: Interpretation: Normal sinus rhythm heart rate 99 beats per minute sinus rhythm PACs no acute ST T wave changes no acute ischemia Discharge Plan Discharge Clinical Impression: Intertrigo Chest pain Qualifiers: Chest pain type: unspecified Qualified Code(s): R07.9 - Chest pain, unspecified Patient Disposition: Xfer LTC Instructions: Chest Pain (ED), Skin Yeast Infection (ED) Additional Instructions: Local care as advised Nystatin powder as advised Prescriptions: New nystatin 100,000 unit/gram powder 1 appl topical TID Qty: 60 RF: 0 No Action (DME) wet wipes See Rx Instructions .ROUTE .MEDSUPPLY Qty: 5 RF: 3 (DME) miscellaneous medical supply Misc See Rx Instructions .ROUTE .MEDSUPPLY Qty: 1 RF: 0 (DME) miscellaneous medical supply Misc See Rx Instructions .ROUTE .MEDSUPPLY Qty: 1 RF: 0 (DME) miscellaneous medical supply Misc See Rx Instructions .ROUTE .MEDSUPPLY Qty: 1 RF: 0 (DME) miscellaneous medical supply Misc See Rx Instructions .ROUTE .MEDSUPPLY Qty: 1 RF: 0 ondansetron 4 mg tablet,disintegrating 4 mg PO Q6-8H PRN (Reason: nausea and vomiting) Qty: 10 RF: 0 atorvastatin 80 mg tablet 80 mg PO BEDTIME RF: 0 Xarelto 2.5 mg tablet 2.5 mg PO BID RF: 0 cefuroxime axetil 250 mg tablet 250 tab PO BID RF: 0 aspirin [Adult Low Dose Aspirin] 81 mg tablet,delayed release (DR/EC) 81 mg PO DAILY 90 Days Qty: 90 RF: 4 hydralazine 25 mg tablet 25 mg PO TID 90 Days Qty: 270 RF: 4 labetalol 100 mg tablet 100 mg PO BID 90 Days Qty: 180 RF: 4 losartan 100 mg tablet 100 mg PO DAILY 90 Days Qty: 90 RF: 4 Desitin Rapid Relief 13 % cream 1 appl topical BID-QID PRN (Reason: skin irritation) 30 Days Qty: 454 RF: 0 nifedipine 30 mg tablet extended release 24hr 30 mg PO DAILY 90 Days Qty: 90 RF: 4 gabapentin 300 mg capsule 300 mg PO BEDTIME 30 Days Qty: 30 RF: 0 (DME) miscellaneous medical supply Misc See Rx Instructions .ROUTE .MEDSUPPLY Qty: 1 RF: 0 tamsulosin 0.4 mg capsule 0.4 mg PO BEDTIME 90 Days Qty: 90 RF: 1 Interventions: ED Discharge Assessment Last Done: 07/24/20 22:09 Discharge Date/Time: 07/24/20 22:10
--- NOTE | 2020-07-24 19:47 | ECG_ITS ---
Test Reason : CP Blood Pressure : / mmHG Vent. Rate : 099 BPM Atrial Rate : 099 BPM P-R Int : 160 ms QRS Dur : 082 ms QT Int : 344 ms P-R-T Axes : 055 048 033 degrees QTc Int : 441 ms Sinus rhythm with Premature supraventricular complexes Otherwise normal ECG When compared to the previous EKG of No significant changes seen Referred By: Akash Meek Electronically Signed By:Emmanuel Freitas
[2020-07-24 20:00] LABS: MANUAL DIFF FLAG NO
[2020-07-24 20:02] LABS: Basophils Percent Auto 0.2 % (0-2); Eosinophils Absolute Auto 0.1 X10*3/uL (0.0-0.4); Hematocrit 28.9 % (42-52); Hemoglobin 10.2 g/dl (14.0-18.0); Imm Gran Abs Auto 0.02 X10*3/uL (0.00-0.03); Imm Gran Pct Auto 0.2 % (0.0-0.4); Lymphocytes Absolute Auto 1.5 X10*3/uL (1.2-4.9); Lymphocytes Percent Auto 17.1 % (20-40); Mean Corpuscular HGB Conc 35.3 g/dl (31.0-36.0); Mean Corpuscular Hemoglobin 32.2 pg (27.0-33.0); Mean Corpuscular Volume 91.2 fL (80-98); Monocytes Absolute Auto 0.7 X10*3/uL (0.1-1.2); Monocytes Percent Auto 7.9 % (2-11); Neutrophils Absolute Auto 6.5 X10*3/uL (2.0-8.3); Neutrophils Percent Auto 73.6 % (45-73); Platelet Count 248 X10*3/uL (160-400); Red Blood Count 3.17 X10*6/uL (4.60-5.80); White Blood Count 8.8 X10*3/uL (4.8-10.8)
[2020-07-24 20:30] LABS: Alanine Aminotransferase 18 U/L (0-40); Albumin Level 3.2 g/dL (3.5-5.0); Alkaline Phosphatase 109 U/L (39-117); Anion Gap 14 (12-20); Aspartate Amino Transferase 15 U/L (5-37); Bilirubin Direct 0.3 mg/dL (0.0-0.5); Bilirubin Total 0.6 mg/dL (0.0-1.0); Blood Urea Nitrogen 23 mg/dL (9-16); Calcium 9.1 mg/dL (8.4-10.2); Carbon Dioxide 23 mmol/L (22-29); Chloride 104 mmol/L (96-108); Creatinine Clr Calc Pharmacy 66.4; Estimated Glomerular Filt Rate > 60; Glucose Random 105 mg/dL (60-115); Potassium 3.5 mmol/L (3.3-5.1); Sodium 137 mmol/L (135-145); Total Protein 5.9 g/dL (6.5-8.0)
[2020-07-24 20:36] LABS: Troponin-I High Sensitivity 8.5 ng/L (<3.5-35.0)
[2020-07-24] MEDS: Fluconazole 150 MG TABLET PO (21:05)
[2020-07-24] MEDS: oxyCODONE HCl Immed Release 5 MG TABLET PO (21:05)
== END 2020-07-24 22:10 ==
PROVIDERS: Emergency Provider Internal Medicine; PCP Family Medicine
DX: R07.9 Chest pain, unspecified (principal); L30.4 Erythema intertrigo; I10 Essential (primary) hypertension; E78.00 Pure hypercholesterolemia, unspecified; I48.0 Paroxysmal atrial fibrillation; Z86.73 Personal history of transient ischemic attack (TIA), and cerebral infarction without residual deficits; Z87.440 Personal history of urinary (tract) infections; Z99.3 Dependence on wheelchair; Z86.16 Personal history of COVID-19; Z79.899 Other long term (current) drug therapy; Z79.02 Long term (current) use of antithrombotics/antiplatelets; Z79.82 Long term (current) use of aspirin; Z79.01 Long term (current) use of anticoagulants
CPT/HCPCS: 36415; 80048; 80076; 84484; 85025; 93005; 99285

== ENCOUNTER → 2020-10-17 14:32 | Outpatient (BNVA) | payer MEDICARE, SELFPAY | PROVIDERS: PCP Family Medicine; Visit Provider Urology | DX: N31.9 Neuromuscular dysfunction of bladder, unspecified (principal) | CPT/HCPCS: 99212 ==

== ENCOUNTER → 2020-12-20 15:00 | Outpatient (BNVA) | payer MEDICARE, SELFPAY | PROVIDERS: PCP Family Medicine; Visit Provider Urology | DX: Z13.89 Encounter for screening for other disorder (principal) | CPT/HCPCS: Q3014 ==

== ENCOUNTER → 2021-02-12 08:41 | Outpatient (BNVA) | payer MEDICARE, SELFPAY | PROVIDERS: PCP Family Medicine; Visit Provider Urology ==

== ENCOUNTER 2021-02-15 20:00 | Inpatient (IN) | payer MEDICARE, SELFPAY ==
--- NOTE | ~2021-02-15 | CT_ITS ---
EXAMINATION: CT HEAD WITHOUT CONTRAST CLINICAL INFORMATION: Seizure COMPARISON: 04/25/2020 TECHNIQUE: Contiguous axial imaging was performed from the skull base to vertex without intravenous contrast. This CT examination was performed using dose optimization techniques as appropriate, variously including the following: * Automated exposure control * Adjustment of mA and/or kV according to patient size (this includes techniques or standardized protocols for targeted exams where dose is matched to indication/reason for exam; i.e. extremities or head) Use of iterative reconstruction technique DLP: 779 mGy-cm. FINDINGS: There is no evidence of acute intracranial hemorrhage or territorial infarction. No abnormal mass effect or midline shift is seen. Chronic left MCA territory infarct. Bains to white matter differentiation is otherwise well preserved. No extra-axial fluid collections are identified. No hydrocephalus. No significant volume loss. There is no abnormal attenuation within the brain parenchyma. The osseous structures and soft tissues are normal. The mastoid air cells and visualized portions of the paranasal sinuses are well aerated. CT/CT head/brain wo con IMPRESSION: No acute intracranial pathology. Chronic left MCA territory infarct.
--- NOTE | ~2021-02-15 | XR_ITS ---
EXAMINATION: XR ABDOMEN KUB CLINICAL INDICATION: Pre-MRI screening. COMPARISON: Chest radiographs 02/15/2021 TECHNIQUE: AP x4 views of the abdomen. FINDINGS: There is monitoring device overlying right lower quadrant consistent with the heart monitor, external to the patient. There is generalized gaseous distention of the large and small bowel. No focal bowel wall thickening or pneumatosis seen. There is moderate stool right colon. Lung bases are clear. There are degenerative changes lumbosacral spine and lower thoracic spine. XR/XR KUB IMPRESSION: Generalized ileus. Moderate stool right colon.
--- NOTE | ~2021-02-15 | XR_ITS ---
EXAMINATION: XR CHEST CLINICAL INFORMATION: Fever COMPARISON: 05/01/2020 TECHNIQUE: Frontal view of the chest was obtained. FINDINGS: No significant abnormality is noted involving the heart, lungs, mediastinum, bony thorax or soft tissues. Gaseous distention of bowel beneath the hemidiaphragm is again seen. XR/XR chest 1V IMPRESSION: No acute intrathoracic disease
--- NOTE | ~2021-02-15 | MR_ITS ---
EXAMINATION: MR SACRUM WITHOUT AND WITH CONTRAST CLINICAL INFORMATION: Coccyx decubiti. COMPARISON: KUB 02/19/2021 TECHNIQUE: MR pelvis/sacrum is performed without and with use of 8.5 mL intravenous Gadavist gadolinium contrast. Imaging is performed in 3 planes. FINDINGS: Images are large [id number] and there is some motion artifact limiting assessment. There is focal edema in the soft tissues overlying lower coccyx consistent with the history of decubitus ulcer. No gas tracking in soft tissues and no loculated soft tissue fluid collection or abscess. Bony structures appear intact with no obvious osteomyelitis. No focal periosteal thickening or periosteal fluid or abnormal enhancement. There is some mild reactive signal changes adjacent to the decubitus ulcer. There is gaseous distention of the bowel, consistent with recent plain radiographs earlier today. The sigmoid is mildly thickened. There is no pelvic abscess or ascites appreciated. No pneumatosis. Recommend correlation with clinical findings. If clinically indicated, CT abdomen and pelvis may be performed to further assess the bowel and this would also provide additional assessment of the sacrum and coccyx. Results called and discussed with Dr. Whittaker at 1750 hours. MR/MR sacrum wo/w con IMPRESSION: 1. Mild reactive changes lower coccyx adjacent to decubitus ulcer. No soft tissue abscess or osteomyelitis at this time. Images degraded by motion artifact. 2. Gaseous distention large and small bowel consistent with plain films earlier today. Mild thickening sigmoid. Recommend correlation with clinical impression. If clinically indicated, CT abdomen and pelvis with IV contrast may be considered for further assessment of the bowel. This would also provide additional assessment of the sacrum/coccyx.
[2021-02-15 20:40] VITALS: BP 145/82; BP 148/87; PULSE 124; PULSE 130; RESP 24; TEMP 38.7; O2SAT 92; O2SAT 95; BMI 25.8
--- NOTE | 2021-02-15 20:42 | ECG_ITS ---
Test Reason : seizures Blood Pressure : / mmHG Vent. Rate : 094 BPM Atrial Rate : 094 BPM P-R Int : 166 ms QRS Dur : 090 ms QT Int : 338 ms P-R-T Axes : 064 064 051 degrees QTc Int : 422 ms Normal sinus rhythm Normal ECG When compared with ECG of 24-JUL-2020 19:52, Premature supraventricular complexes are no longer Present Referred By: Mervat Hoang Electronically Signed By:VINI ROBERT
--- NOTE | 2021-02-15 20:46 | ED_ITS ---
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 65 years old from [facility] with history of hypertension, hyperlipidemia, AFib on Xarelto, history of CVA with right-sided hemiparesis, mostly bedbound, minimally verbal but mostly mute. Came in for evaluation of seizure patient found to be hypertensive, patient with chronic Walker indwelling catheter found to have smelly and infected urine, Walker catheter was replaced by a new Walkre catheter in the emergency department and urine sample from the new catheter was sent showing urinary infection. Patient overall is a limited historian. patient with chronic decubitus ulcer that is managed by wound nurse at [facility] Related Data Home Medications Medication Instructions Recorded Confirmed atorvastatin 80 mg tablet 80 mg PO BEDTIME 04/25/20 02/16/21 amlodipine 5 mg tablet 5 mg PO DAILY 06/20/20 02/16/21 acetaminophen 325 mg tablet 650 mg PO Q4H PRN 02/16/21 02/16/21 bisacodyl 10 mg rectal suppository 10 mg NH DAILY PRN 02/16/21 02/16/21 calcium carbonate 600 mg-vitamin 1 tab PO BID 02/16/21 02/16/21 D3 5 mcg (200 unit) tablet lidocaine 5 % topical patch 1 patch TOPICAL DAILY 02/16/21 02/16/21 magnesium citrate (Citrate of 300 ml PO DAILY PRN 02/16/21 02/16/21 Magnesia) magnesium hydroxide 400 mg/5 mL 30 ml PO DAILY PRN 02/16/21 02/16/21 oral suspension (Milk of Magnesia) oxycodone 5 mg tablet 5 mg PO Q6H PRN 02/16/21 02/16/21 rivaroxaban 20 mg tablet 20 mg PO QPM 02/16/21 02/16/21 Previous Rx's Medication Instructions Recorded aspirin 81 mg tablet,delayed 81 mg PO DAILY 90 Days #90 tab 02/07/20 release (Adult Low Dose Aspirin) losartan 100 mg tablet 100 mg PO DAILY 90 Days #90 tab 02/07/20 wet wipes #5 units 03/12/20 tamsulosin 0.4 mg capsule 0.4 mg PO BEDTIME 90 Days #90 cap 03/22/20 miscellaneous medical supply #1 ea 03/26/20 miscellaneous medical supply #1 ea 03/26/20 miscellaneous medical supply #1 ea 03/26/20 miscellaneous medical supply #1 ea 03/26/20 gabapentin 300 mg capsule 300 mg PO BEDTIME 30 Days #30 cap 03/27/20 miscellaneous medical supply #1 ea 03/27/20 ondansetron 4 mg disintegrating 4 mg PO Q6-8H PRN #10 tab 04/15/20 tablet Allergies Allergy/AdvReac Type Severity Reaction Status Date / Time No Known Allergies Allergy Verified 02/12/21 09:00 [No Known Allergies*] Review of Systems Review of Systems: All other systems are reviewed and are negative Constitutional: Reports as per HPI and Reports no additional constitutional complaints Eyes: Reports as per HPI and Reports no additional eye complaints Reports system reviewed and no additional complaints, except as documented Cardiovascular: Reports as per HPI and Reports no additional cardiovascular complaints Respiratory: Reports as per HPI and Reports no additional respiratory complaints Gastrointestinal: Reports as per HPI and Reports no additional gastrointestinal complaints Genitourinary: Reports no additional female genitourinary complaints Musculoskeletal: Reports no additional musculoskeletal complaints Skin/Breast: Reports system reviewed and no additional complaints, except as docu Psychiatric: Reports no additional psychiatric complaints Endocrine: Reports no additional endocrine complaints Hematologic/Lymphatic: Reports no additional hematologic/lymphatic complaints Allergic/Immunologic: Reports no additional allergic/immunologic complaints Reports system reviewed and no additional complaints, except as documented and Reports Abnormal speech present [facility] Past Medical History Medical History COVID-19 High cholesterol History of CVA (cerebrovascular accident) HTN (hypertension) HTN (hypertension) Paroxysmal atrial fibrillation Stroke Surgical History No pertinent past surgical history Family History Family History Father No problems noted. Mother No problems noted. Social History Social History Household Members: Family Housing: House Do you presently have visiting nurse or other home services: No Unable to assess alcohol history related to: Unknown Alcohol intake: unknown Patient Tobacco Use Status: Tobacco use Unknown Advance Directives: Yes Advance Directives on File: Yes Advance Directives Date on File: 02/14/20 service: No Current occupational status: disabled Physical Exam Vital Signs: Vital Signs: Last Vital Signs Temp 98.3 F 02/16/21 06:02 Pulse 60 02/16/21 06:02 Resp 12 02/16/21 06:02 BP 122/77 02/16/21 06:02 Pulse Ox 98 02/16/21 06:02 BMI result Body Mass Index 25.8 Vital signs have been reviewed as appeared to be correct. Blood pressure normal. Heart rate elevated. Respiration rate elevated. Temperature elevated. Oxygen saturation normal. Appearance: Alert. Patient is mute secondary to old CVA stroke. No acute distress. Head: Normal external exam. Normocephalic. Atraumatic. No Oliveira signs noted. No raccoon eyes noted Eyes: PERRLA. EOMI. Conjunctiva and sclera normal. Eyelids normal. ENT: TM's Normal. Pharynx normal. Uvula midline. Moist mucous membranes. No trismus noted. No drooling noted. No muffled voice noted. Neck: Normal inspection. Neck supple. FROM. No adenopathy. Thyroid Normal. No meningeal signs. No neck mass noted. CVS: Normal heart rate and rhythm. Heart sound normal. No murmurs noted. Pulses normal throughout. Respiratory: No respiratory distress. Painless inspiration. Breath sounds normal. No wheezes/rales/rhonchi noted. Chest nontender. No accessory muscle usage noted or decreased air movement noted. Abdomen: Soft and nontender. Bowel sounds normal in all 4 quadrants. No distention noted. No organomegaly noted. No visible injury noted. exam: There is old caught on the inferior surface of the penis, no active bleeding Back: old chronic decubetus ulcer that is well appearing with no signs of infection. Skin: Skin warm and dry. Normal skin color. Normal skin turgor. No rashes/lesions/lacerations noted. Extremities: No lower extremity edema. Extremities exhibit normal range of motion. Extremities nontender. Neuro: Nonverbal with right hemiparesis. Course Course Course Narrative: Assessment and plan. 65 years old male at baseline he is bed-bound secondary to old stroke, [facility] for evaluation after witnessed seizure, found to have a fever, source with UTI. 1. Fever and patient met SIRS criteria, source is UTI, Walker was replaced, fluid was given, covered with ceftriaxone IV, culture/lactic acid no indication of severe or septic shock. lactic acid is trending down. 2. Seizure witnessed by the staff at [facility], patient did not have postictal LOC, patient had his baseline neuro exam, with negative CT head. Will admit for neuro exam and monitoring for seizure. 3. Elevated troponin with marginal delta change with repeat troponin, with unre markable EKG. no emergent intervention is needed now unless next troponin is going up. Medical Decision Making Medical Records Medical records reviewed: Yes I reviewed the patient's medical records. Lab Data Lab results reviewed: Yes I reviewed the patient's lab results. Result diagrams: 02/16/21 07:36 02/16/21 07:36 Labs: Lab Results 02/15/21 02/15/21 02/15/21 Range/Units 21:16 21:16 21:16 WBC 13.6 H (4.8-10.8) X10*3/uL RBC 3.63 L (4.60-5.80) X10*6/uL Hgb 11.8 L (14.0-18.0) g/dl Hct 33.5 L (42.0-52.0) % MCV 92.3 (80.0-98.0) fL MCH 32.5 (27.0-33.0) pg MCHC 35.2 (31.0-36.0) g/dl RDW 13.5 (11.0-16.0) % Plt Count 292 (160-400) X10*3/uL MPV 9.0 L (9.4-12.4) fL Immature Gran % (Auto) 0.4 (0.0-0.4) % Neut % (Auto) 91.3 H (45-73) % Lymph % (Auto) 3.2 L (20-40) % [place] % (Auto) 4.9 (2-11) % Eos % (Auto) 0.1 (0-4) % Baso % (Auto) 0.1 (0-2) % Lymph # (Auto) 0.4 L (1.2-4.9) X10*3/uL [place] # (Auto) 0.7 (0.1-1.2) X10*3/uL Eos # (Auto) 0.0 (0.0-0.4) X10*3/uL Baso # (Auto) 0.0 (0.0-0.2) X10*3/uL Abs Immat Gran (auto) 0.06 H (0.00-0.03) X10*3/uL Absolute Neuts (auto) 12.4 H (2.0-8.3) x10*3/uL Absolute Nucleated RBC 0.000 (0.0-0.012) X10*3/uL Nucleated RBC % (auto) 0.0 (0.0-0.2) /100WBC Smear Tech's Comments VERIFIED Sodium 142 (135-145) mmol/L Potassium 3.5 (3.3-5.1) mmol/L Chloride 107 (96-108) mmol/L Carbon Dioxide 25 (22-29) mmol/L Anion Gap 14 (12-20) BUN 29 H (9-16) mg/dL Creatinine 1.23 (0.5-1.4) mg/dL Estim Creat Clear Calc 60.9 Estimated GFR 59 Random Glucose 198 H D (60-115) mg/dL Lactic Acid (0.5-2.0) mmol/L Lactic Acid F/U @ 2Hr (0.5-2.0) mmol/L Calcium 9.6 (8.4-10.2) mg/dL Total Bilirubin 0.7 (0.0-1.0) mg/dL Direct Bilirubin 0.3 (0.0-0.5) mg/dL AST 27 D (5-37) U/L ALT 38 (0-40) U/L Alkaline Phosphatase 130 H (39-117) U/L Troponin I High Sens 79.1 H (<3.5-35.0) ng/L B-Natriuretic Peptide (<100) pg/mL Total Protein 6.5 (6.5-8.0) g/dL Albumin 3.3 L (3.5-5.0) g/dL Lipase 11 (8-78) U/L Urine Color Urine Appearance Urine pH (5.0-8.0) Ur Specific Wray (1.005-1.025) Urine Protein (NEG-TRACE) MG/DL Urine Glucose (UA) (NEG) MG/DL Urine Ketones (NEG) MG/DL Urine Blood (NEG) Urine Nitrite (NEG) Ur Leukocyte Esterase (NEG) Urine RBC (0) /HPF Urine WBC (0-4) /HPF Ur Squamous Epith Cells /LPF Amorphous Sediment /LPF Urine Bacteria /LPF Influenza Type A (PCR) (Negative) Influenza Type B (PCR) (Negative) RSV RNA Qual (PCR) (Negative) SARS-CoV-2 RNA (RT-PCR) (Negative) 02/15/21 02/15/21 02/15/21 Range/Units 21:16 21:16 21:16 WBC (4.8-10.8) X10*3/uL RBC (4.60-5.80) X10*6/uL Hgb (14.0-18.0) g/dl Hct (42.0-52.0) % MCV (80.0-98.0) fL MCH (27.0-33.0) pg MCHC (31.0-36.0) g/dl RDW (11.0-16.0) % Plt Count (160-400) X10*3/uL MPV (9.4-12.4) fL Immature Gran % (Auto) (0.0-0.4) % Neut % (Auto) (45-73) % Lymph % (Auto) (20-40) % [place] % (Auto) (2-11) % Eos % (Auto) (0-4) % Baso % (Auto) (0-2) % Lymph # (Auto) (1.2-4.9) X10*3/uL [place] # (Auto) (0.1-1.2) X10*3/uL Eos # (Auto) (0.0-0.4) X10*3/uL Baso # (Auto) (0.0-0.2) X10*3/uL Abs Immat Gran (auto) (0.00-0.03) X10*3/uL Absolute Neuts (auto) (2.0-8.3) x10*3/uL Absolute Nucleated RBC (0.0-0.012) X10*3/uL Nucleated RBC % (auto) (0.0-0.2) /100WBC Smear Tech's Comments Sodium (135-145) mmol/L Potassium (3.3-5.1) mmol/L Chloride (96-108) mmol/L Carbon Dioxide (22-29) mmol/L Anion Gap (12-20) BUN (9-16) mg/dL Creatinine (0.5-1.4) mg/dL Estim Creat Clear Calc Estimated GFR Random Glucose (60-115) mg/dL Lactic Acid 2.7 H* (0.5-2.0) mmol/L Lactic Acid F/U @ 2Hr (0.5-2.0) mmol/L Calcium (8.4-10.2) mg/dL Total Bilirubin (0.0-1.0) mg/dL Direct Bilirubin (0.0-0.5) mg/dL AST (5-37) U/L ALT (0-40) U/L Alkaline Phosphatase (39-117) U/L Troponin I High Sens (<3.5-35.0) ng/L B-Natriuretic Peptide 101 H (<100) pg/mL Total Protein (6.5-8.0) g/dL Albumin (3.5-5.0) g/dL Lipase (8-78) U/L Urine Color Urine Appearance Urine pH (5.0-8.0) Ur Specific Wray (1.005-1.025) Urine Protein (NEG-TRACE) MG/DL Urine Glucose (UA) (NEG) MG/DL Urine Ketones (NEG) MG/DL Urine Blood (NEG) Urine Nitrite (NEG) Ur Leukocyte Esterase (NEG) Urine RBC (0) /HPF Urine WBC (0-4) /HPF Ur Squamous Epith Cells /LPF Amorphous Sediment /LPF Urine Bacteria /LPF Influenza Type A (PCR) NEGATIVE (Negative) Influenza Type B (PCR) NEGATIVE (Negative) RSV RNA Qual (PCR) NEGATIVE (Negative) SARS-CoV-2 RNA (RT-PCR) NEGATIVE (Negative) 02/15/21 02/16/21 02/16/21 Range/Units 22:00 00:39 00:39 WBC (4.8-10.8) X10*3/uL RBC (4.60-5.80) X10*6/uL Hgb (14.0-18.0) g/dl Hct (42.0-52.0) % MCV (80.0-98.0) fL MCH (27.0-33.0) pg MCHC (31.0-36.0) g/dl RDW (11.0-16.0) % Plt Count (160-400) X10*3/uL MPV (9.4-12.4) fL Immature Gran % (Auto) (0.0-0.4) % Neut % (Auto) (45-73) % Lymph % (Auto) (20-40) % [place] % (Auto) (2-11) % Eos % (Auto) (0-4) % Baso % (Auto) (0-2) % Lymph # (Auto) (1.2-4.9) X10*3/uL [place] # (Auto) (0.1-1.2) X10*3/uL Eos # (Auto) (0.0-0.4) X10*3/uL Baso # (Auto) (0.0-0.2) X10*3/uL Abs Immat Gran (auto) (0.00-0.03) X10*3/uL Absolute Neuts (auto) (2.0-8.3) x10*3/uL Absolute Nucleated RBC (0.0-0.012) X10*3/uL Nucleated RBC % (auto) (0.0-0.2) /100WBC Smear Tech's Comments Sodium (135-145) mmol/L Potassium (3.3-5.1) mmol/L Chloride (96-108) mmol/L Carbon Dioxide (22-29) mmol/L Anion Gap (12-20) BUN (9-16) mg/dL Creatinine (0.5-1.4) mg/dL Estim Creat Clear Calc Estimated GFR Random Glucose (60-115) mg/dL Lactic Acid (0.5-2.0) mmol/L Lactic Acid F/U @ 2Hr 2.0 (0.5-2.0) mmol/L Calcium (8.4-10.2) mg/dL Total Bilirubin (0.0-1.0) mg/dL Direct Bilirubin (0.0-0.5) mg/dL AST (5-37) U/L ALT (0-40) U/L Alkaline Phosphatase (39-117) U/L Troponin I High Sens 113.3 H* (<3.5-35.0) ng/L B-Natriuretic Peptide (<100) pg/mL Total Protein (6.5-8.0) g/dL Albumin (3.5-5.0) g/dL Lipase (8-78) U/L Urine Color RED Urine Appearance TURBID Urine pH 8.5 H (5.0-8.0) Ur Specific Wray 1.010 (1.005-1.025) Urine Protein 3+ H (NEG-TRACE) MG/DL Urine Glucose (UA) 250 H (NEG) MG/DL Urine Ketones 15 (NEG) MG/DL Urine Blood 3+ H (NEG) Urine Nitrite POS H (NEG) Ur Leukocyte Esterase 3+ H (NEG) Urine RBC TNTC H (0) /HPF Urine WBC 15-29 H (0-4) /HPF Ur Squamous Epith Cells 1+ /LPF Amorphous Sediment 2+ /LPF Urine Bacteria 3+ /LPF Influenza Type A (PCR) (Negative) Influenza Type B (PCR) (Negative) RSV RNA Qual (PCR) (Negative) SARS-CoV-2 RNA (RT-PCR) (Negative) Imaging Data Chest x-ray: Attestation: I personally reviewed and interpreted this imaging study as follows: Radiologist's impression: No acute intrathoracic disease. CT scan - head: Attestation: I personally reviewed and interpreted this imaging study as follows: Radiologist's impression: No acute intracranial pathology. Chronic left MCA territory infarct. ECG Data Attestation: I personally reviewed and interpreted this ECG as follows: Interpretation: Normal sinus rhythm at 94 beats per minutes, normal axis deviation, normal intervals. Discharge Plan Discharge Clinical Impression: Acute UTI, History of CVA (cerebrovascular accident), Systemic inflammatory response syndrome (SIRS), Seizure, Elevated troponin Patient Disposition: Admitted As Inpatient
[2021-02-15] MEDS: cefTRIAXone sodium 1 GM in 0.9 % Sodium Chloride 50 ML IV (21:22)
[2021-02-15] MEDS: 0.9 % Sodium Chloride 1,000 ML 999 ML IVCONT ×2 (21:23→23:56)
[2021-02-15] MEDS: Acetaminophen Supp 650 MG SUPP.RECT PR (21:23)
[2021-02-15 21:25] LABS: Basophils Percent Auto 0.1 % (0-2); Eosinophils Percent Auto 0.1 % (0-4); Hematocrit 33.5 % (42.0-52.0); Hemoglobin 11.8 g/dl (14.0-18.0); Imm Gran Abs Auto 0.06 X10*3/uL (0.00-0.03); Imm Gran Pct Auto 0.4 % (0.0-0.4); Lymphocytes Absolute Auto 0.4 X10*3/uL (1.2-4.9); Lymphocytes Percent Auto 3.2 % (20-40); MANUAL DIFF FLAG SCAN; Mean Corpuscular HGB Conc 35.2 g/dl (31.0-36.0); Mean Corpuscular Hemoglobin 32.5 pg (27.0-33.0); Mean Corpuscular Volume 92.3 fL (80.0-98.0); Monocytes Absolute Auto 0.7 X10*3/uL (0.1-1.2); Monocytes Percent Auto 4.9 % (2-11); Neutrophils Absolute Auto 12.4 x10*3/uL (2.0-8.3); Neutrophils Percent Auto 91.3 % (45-73); Platelet Count 292 X10*3/uL (160-400); Red Blood Count 3.63 X10*6/uL (4.60-5.80); Red Cell Distribution Width 13.5 % (11.0-16.0); SCAN SMEAR FLAG 1; White Blood Count 13.6 X10*3/uL (4.8-10.8)
[2021-02-15 21:40] LABS: SLIDE REVIEW VERIFIED
[2021-02-15 21:46] LABS: Alanine Aminotransferase 38 U/L (0-40); Albumin Level 3.3 g/dL (3.5-5.0); Alkaline Phosphatase 130 U/L (39-117); Anion Gap 14 (12-20); Aspartate Amino Transferase 27 U/L (5-37); Bilirubin Direct 0.3 mg/dL (0.0-0.5); Bilirubin Total 0.7 mg/dL (0.0-1.0); Blood Urea Nitrogen 29 mg/dL (9-16); Calcium 9.6 mg/dL (8.4-10.2); Carbon Dioxide 25 mmol/L (22-29); Chloride 107 mmol/L (96-108); Creatinine Clr Calc Pharmacy 60.9; Estimated Glomerular Filt Rate 59; Glucose Random 198 mg/dL (60-115); Lipase 11 U/L (8-78); Potassium 3.5 mmol/L (3.3-5.1); Sodium 142 mmol/L (135-145); Total Protein 6.5 g/dL (6.5-8.0)
[2021-02-15 21:47] LABS: B Type Natriuretic Peptide 101 pg/mL (<100); Troponin-I High Sensitivity 79.1 ng/L (<3.5-35.0)
--- NOTE | 2021-02-15 22:13 | PC.NURSE ---
PT arrived with IV inserted in right hand. IV was not infusing fluids and antibiotics efficiently. New 20g IV inserted in left AC. PT had new Walker catheter inserted by Dr. Hoang. PT tolerated procedure well. Urine looked bloody and cloudy.
[2021-02-15 22:17] VITALS: BP 123/84; PULSE 91; RESP 25; TEMP 37.8; O2SAT 99
[2021-02-15 22:28] LABS: Lactic Acid 2.7 mmol/L (0.5-2.0)
[2021-02-15 22:34] LABS: Appearance Urine TURBID; Color Urine RED; Glucose Urine UA 250 MG/DL (NEG); Nitrite Urine POS (NEG); PH 8.5 (5.0-8.0); UACC Culture Trigger YES; Urine Ketones 15 MG/DL (NEG)
[2021-02-15 22:40] LABS: Influenza A PCR NEGATIVE (Negative); Influenza B PCR NEGATIVE (Negative); Resp Syncy Virus RNA Qual PCR NEGATIVE (Negative); SARS COV2 PCR INHOUSE NEGATIVE (Negative)
[2021-02-15 22:48] LABS: Urine Blood 3+ (NEG); Urine Protein 3+ MG/DL (NEG-TRACE)
[2021-02-15 22:49] LABS: Leukocyte Esterase Urine 3+ (NEG)
[2021-02-15 22:54] VITALS: TEMP 37.8
[2021-02-15 22:54] LABS: Bacteria Urine 3+ /LPF; RBC Urine TNTC /HPF (0); Squamous Epithelial Cell Urine 1+ /LPF
[2021-02-15 22:55] LABS: Amorphous Sediment Urine 2+ /LPF
[2021-02-15 23:09] VITALS: BP 122/79; PULSE 81; RESP 14; O2SAT 98
--- NOTE | 2021-02-15 23:17 | P.HPHOSP_ITS ---
History of Present Illness Date of Service: 02/15/21 Chief Complaint: seizure 65-year-old male with a past medical history of hypertension, hyperlipidemia, atrial fibrillation, GERD, history of recurrent UTIs, CVA with residual right- sided weakness, dysphagia, prior history of COVID-19, neurogenic bladder, chronic indwelling Walker, peripheral vascular disease, decubitus ulcer on the coccyx presented to the hospital with a chief complaint of seizure episode. I spoke to the longterm staff at the [facility] in [place]; RN I spoke to mentioned that the RN who was taking care of the patient and was told that when she went in to check on the patient patient was shaking in his bed; appears to be seizure; lasted for 7 minutes; otherwise no inflammation of tongue biting, urinary incontinence; Family was notified. Patient is a poor historian; Denies any chest pain palpitations lightheadedness or dizziness. Review of all other systems is limited. ER course: For ER team patient noted to be alert and awake; urinalysis was abnormal consistent with UTI. Given ceftriaxone. Patient has a Walker catheter in place which was replaced in the ER on presentation. [facility] Medical History COVID-19 High cholesterol History of CVA (cerebrovascular accident) HTN (hypertension) HTN (hypertension) Paroxysmal atrial fibrillation Stroke Family History Father No problems noted. Mother No problems noted. Surgical History No pertinent past surgical history Social History Household Members: Family Housing: House Do you presently have visiting nurse or other home services: No Unable to assess alcohol history related to: Unknown Alcohol intake: unknown Patient Tobacco Use Status: Tobacco use Unknown Advance Directives: Yes Advance Directives on File: Yes Advance Directives Date on File: 02/14/20 service: No Current occupational status: disabled Meds Allergies Allergy/AdvReac Type Severity Reaction Status Date / Time No Known Allergies Allergy Verified 02/12/21 09:00 [No Known Allergies*] Active Medications: Current Medications Acetaminophen (Acetaminophen 325 Mg Tablet) 650 mg PO Q6H PRN PRN Reason: Pain, Mild (Pain Scale 1-3) Heparin Sodium (Porcine) (Heparin Sodium,Porcine 5,000 Unit/Ml Vial) 5,000 unit SUBCUT Q12H [facility] Sodium Chloride (Ns) 1,000 mls @ 999 mls/hr IVCONT .Q1H1M [facility] Stop: 02/16/21 00:00 Ceftriaxone Sodium 1 gm/ (Sodium Chloride) 50 mls @ 100 mls/hr IV Q24H [facility] Sodium Chloride (Ns) 1,000 mls @ 75 mls/hr IVCONT .[id number] [facility] Lorazepam (Lorazepam 2 Mg/Ml Vial) 1 mg IVPUSH Q2H PRN PRN Reason: Seizures Melatonin (Melatonin 3 Mg Tablet) 6 mg PO BEDTIME PRN PRN Reason: Insomnia Senna (Sennosides 8.6 Mg Tablet) 17.2 mg PO BEDTIME PRN PRN Reason: Constipation Sodium Chloride (0.9 % Sodium Chloride Flush 3 Ml Syringe) 3 ml IVFLUSH QSHIFT [facility] Home Medications Medication Instructions Recorded Confirmed Last Taken Type atorvastatin 80 mg tablet 80 mg PO BEDTIME 04/25/20 05/01/20 Unknown History rivaroxaban 2.5 mg tablet (Xarelto) 2.5 mg PO BID 04/25/20 05/01/20 Unknown History cefuroxime axetil 250 mg tablet 250 tab PO BID 05/01/20 05/01/20 Unknown History amlodipine 5 mg tablet 5 mg PO DAILY 06/20/20 Unknown History potassium chloride 20 mEq 20 meq PO DAILY 06/20/20 Unknown History tablet,extended release(part/cryst) Physical Exam Vital Signs and Narrative: Vital Signs: Last Vital Signs Temp 100.0 F 02/15/21 22:54 Pulse 81 02/15/21 23:09 Resp 14 02/15/21 23:09 BP 122/79 02/15/21 23:09 Pulse Ox 98 02/15/21 23:09 BMI result Body Mass Index 25.8 Gen: Appears be in no acute distress HEENT: NCAT, Moist mucosa. Pulmonary: Vesicular breath sounds, fair air entry CVS: Normal S1-S2 Abdomen: BS+, Soft, Nontender Extremities: Warm well perfused Neuro: Alert and awake. Results Labs CBC and Chem 7: 02/15/21 21:16 02/15/21 21:16 Labs: Laboratory Results - last 24 hr 02/15/21 02/15/21 02/15/21 21:16 21:16 21:16 MCV 92.3 MCH 32.5 MCHC 35.2 RDW 13.5 Plt Count 292 MPV 9.0 L Immature Gran % (Auto) 0.4 Neut % (Auto) 91.3 H Lymph % (Auto) 3.2 L [place] % (Auto) 4.9 Eos % (Auto) 0.1 Baso % (Auto) 0.1 Lymph # (Auto) 0.4 L [place] # (Auto) 0.7 Eos # (Auto) 0.0 Baso # (Auto) 0.0 Abs Immat Gran (auto) 0.06 H Absolute Neuts (auto) 12.4 H Absolute Nucleated RBC 0.000 Nucleated RBC % (auto) 0.0 Smear Tech's Comments VERIFIED Anion Gap 14 Estim Creat Clear Calc 60.9 Estimated GFR 59 Random Glucose 198 H D Lactic Acid Calcium 9.6 Total Bilirubin 0.7 Direct Bilirubin 0.3 AST 27 D ALT 38 Alkaline Phosphatase 130 H Troponin I High Sens 79.1 H B-Natriuretic Peptide Total Protein 6.5 Albumin 3.3 L Lipase 11 Urine Color Urine Appearance Urine pH Ur Specific [place] Urine Protein Urine Glucose (UA) Urine Ketones Urine Blood Urine Nitrite Ur Leukocyte Esterase Urine RBC Urine WBC Ur Squamous Epith Cells Amorphous Sediment Urine Bacteria Influenza Type A (PCR) Influenza Type B (PCR) RSV RNA Qual (PCR) SARS-CoV-2 RNA (RT-PCR) 02/15/21 02/15/21 02/15/21 21:16 21:16 21:16 MCV MCH MCHC RDW Plt Count MPV Immature Gran % (Auto) Neut % (Auto) Lymph % (Auto) [place] % (Auto) Eos % (Auto) Baso % (Auto) Lymph # (Auto) [place] # (Auto) Eos # (Auto) Baso # (Auto) Abs Immat Gran (auto) Absolute Neuts (auto) Absolute Nucleated RBC Nucleated RBC % (auto) Smear Tech's Comments Anion Gap Estim Creat Clear Calc Estimated GFR Random Glucose Lactic Acid 2.7 H* Calcium Total Bilirubin Direct Bilirubin AST ALT Alkaline Phosphatase Troponin I High Sens B-Natriuretic Peptide 101 H Total Protein Albumin Lipase Urine Color Urine Appearance Urine pH Ur Specific [place] Urine Protein Urine Glucose (UA) Urine Ketones Urine Blood Urine Nitrite Ur Leukocyte Esterase Urine RBC Urine WBC Ur Squamous Epith Cells Amorphous Sediment Urine Bacteria Influenza Type A (PCR) NEGATIVE Influenza Type B (PCR) NEGATIVE RSV RNA Qual (PCR) NEGATIVE SARS-CoV-2 RNA (RT-PCR) NEGATIVE 02/15/21 22:00 MCV MCH MCHC RDW Plt Count MPV Immature Gran % (Auto) Neut % (Auto) Lymph % (Auto) [place] % (Auto) Eos % (Auto) Baso % (Auto) Lymph # (Auto) [place] # (Auto) Eos # (Auto) Baso # (Auto) Abs Immat Gran (auto) Absolute Neuts (auto) Absolute Nucleated RBC Nucleated RBC % (auto) Smear Tech's Comments Anion Gap Estim Creat Clear Calc Estimated GFR Random Glucose Lactic Acid Calcium Total Bilirubin Direct Bilirubin AST ALT Alkaline Phosphatase Troponin I High Sens B-Natriuretic Peptide Total Protein Albumin Lipase Urine Color RED Urine Appearance TURBID Urine pH 8.5 H Ur Specific [place] 1.010 Urine Protein 3+ H Urine Glucose (UA) 250 H Urine Ketones 15 Urine Blood 3+ H Urine Nitrite POS H Ur Leukocyte Esterase 3+ H Urine RBC TNTC H Urine WBC 15-29 H Ur Squamous Epith Cells 1+ Amorphous Sediment 2+ Urine Bacteria 3+ Influenza Type A (PCR) Influenza Type B (PCR) RSV RNA Qual (PCR) SARS-CoV-2 RNA (RT-PCR) Imaging Radiologist's Impressions: Impressions Chest X-Ray 02/15/21 21:04 IMPRESSION: No acute intrathoracic disease Head CT 02/15/21 22:45 IMPRESSION: No acute intracranial pathology. Chronic left MCA territory infarct. Assessment and Plan (1) UTI (urinary tract infection) due to urinary indwelling Walker catheter: Qualifiers: Encounter type: initial encounter Indwelling urinary catheter type: indwelling urethral catheter Qualified Code(s): T83.511A - Infection and inflammatory reaction due to indwelling urethral catheter, initial encounter; N39.0 - Urinary tract infection, site not specified Status: Acute (2) Hemiplegia of right dominant side due to acute cerebrovascular disease: Status: Acute 65-year-old male with a past medical history of hypertension, hyperlipidemia, atrial fibrillation, GERD, history of recurrent UTIs, CVA with residual right-sided weakness, dysphagia, prior history of COVID-19, neurogenic bladder, chronic indwelling Walker, peripheral vascular disease, decubitus ulcer on the coccyx presented to the hospital with a chief complaint of seizure episode. ?Seizure:LTAC reported that episode lasted for 7 minutes. Temp: 100.4f; seizure precautions. Neurology consult. UTI: Continue ceftriaxone. Patient has Walker catheter changed in the ER. Follow up cultures. Indeterminate troponins: Likely demand. Patient denies any chest pain. EKG nonischemic. Echocardiogram. Cardiology consult. decubitus ulcer: on the coccyx-on wound VAC which was removed at the longterm prior to presentation. Pressure ulcer care for RN History of AFib: Rate controlled. Continue home Xarelto History of hypertension/hyperlipidemia: Continue home medications. Diet: Patient was on dysphagia pureed diet. Will consult speech and swallow. Aspiration precautions Code status: Full code. Patient has molst form Quality Stroke Does the patient have a stroke diagnosis?: No VTE Prior VTE?: No VTE Risk Level:: Medical - moderate - high VTE Device Contraindication: Treatment Not Indicated VTE Drug Contraindication: N/A - Med Ordered
[2021-02-15 23:22] LABS: Reflex Lactate? Lactic Acid Added
[2021-02-16] VITALS (7 sets, daily range): BP systolic 107–141; BP diastolic 61–80; PULSE 60–92; RESP 12–18; TEMP 36.5–37.4; O2SAT 96–100
[2021-02-16 01:11] LABS: Troponin-I High Sensitivity 113.3 ng/L (<3.5-35.0)
[2021-02-16] MEDS: Heparin Sodium,Porcine 5,000 UNIT/ML VIAL 5000 UNIT SUBCUT (02:31)
[2021-02-16] MEDS: 0.9 % Sodium Chloride 1,000 ML 75 ML IVCONT (02:31)
[2021-02-16] MEDS: 0.9 % Sodium Chloride Flush 3 ML SYRINGE IVFLUSH ×3 (02:32→23:43)
--- NOTE | 2021-02-16 05:49 | PC.NURSE ---
Pressure wound dressing noted to be soiled while changing PT's linens after incontinent episode. Wound was clean and dry before this RN applied a new dressing over the wound.
[2021-02-16 08:00] LABS: MANUAL DIFF FLAG NO
[2021-02-16 08:04] LABS: Basophils Percent Auto 0.3 % (0-2); Eosinophils Percent Auto 0.1 % (0-4); Hematocrit 30.9 % (42.0-52.0); Hemoglobin 10.3 g/dl (14.0-18.0); Imm Gran Abs Auto 0.04 X10*3/uL (0.00-0.03); Imm Gran Pct Auto 0.4 % (0.0-0.4); Lymphocytes Absolute Auto 1.5 X10*3/uL (1.2-4.9); Lymphocytes Percent Auto 15.1 % (20-40); Mean Corpuscular HGB Conc 33.3 g/dl (31.0-36.0); Mean Corpuscular Hemoglobin 31.8 pg (27.0-33.0); Mean Corpuscular Volume 95.4 fL (80.0-98.0); Mean Platelet Volume 9.4 fL (9.4-12.4); Monocytes Percent Auto 10.6 % (2-11); Neutrophils Absolute Auto 7.1 x10*3/uL (2.0-8.3); Neutrophils Percent Auto 73.5 % (45-73); Platelet Count 210 X10*3/uL (160-400); Red Blood Count 3.24 X10*6/uL (4.60-5.80); Red Cell Distribution Width 13.6 % (11.0-16.0); White Blood Count 9.7 X10*3/uL (4.8-10.8)
[2021-02-16] MEDS: Aspirin Enteric Coated 81 MG TABLET.DR PO (08:24)
[2021-02-16 08:34] LABS: Anion Gap 10 (12-20); Blood Urea Nitrogen 24 mg/dL (9-16); Calcium 8.9 mg/dL (8.4-10.2); Carbon Dioxide 27 mmol/L (22-29); Chloride 112 mmol/L (96-108); Creatinine Clr Calc Pharmacy 83.3; Estimated Glomerular Filt Rate > 60; Glucose Random 120 mg/dL (60-115); Potassium 3.3 mmol/L (3.3-5.1); Sodium 146 mmol/L (135-145)
--- NOTE | 2021-02-16 09:01 | PHA.MEDREC ---
Pharmacy Consult ? Medication Reconciliation Pharmacy has completed the medication reconciliation. pt from [facility]. Med rec completed per MAR
--- NOTE | 2021-02-16 10:56 | PM.NEUROCN ---
History of Present Illness Data of Consult Service Date: 02/16/21 Primary Care Provider: Lorraine Wiley MD [facility] Reason for consult: Seizure 65 years old man with underlying history of atrial fibrillation and a large left middle cerebral artery infarct resulting in right hemiparesis and aphasia resident of a [facility] brought to hospital with report of a seizure lasting for many minutes. He was unable to provide any history. Review of Systems Review of Systems: Cannot be done [facility] Past Medical History Medical History COVID-19 High cholesterol History of CVA (cerebrovascular accident) HTN (hypertension) HTN (hypertension) Paroxysmal atrial fibrillation Stroke Family History Family History Father No problems noted. Mother No problems noted. Surgical History Surgical History No pertinent past surgical history Social History Social History Household Members: Family Housing: House Do you presently have visiting nurse or other home services: No Unable to assess alcohol history related to: Unknown Alcohol intake: unknown Patient Tobacco Use Status: Tobacco use Unknown Advance Directives: Yes Advance Directives on File: Yes Advance Directives Date on File: 02/14/20 service: No Current occupational status: disabled Meds Allergies Allergy/AdvReac Type Severity Reaction Status Date / Time No Known Allergies Allergy Verified 02/12/21 09:00 [No Known Allergies*] Active Medications: Current Medications Acetaminophen (Acetaminophen 325 Mg Tablet) 650 mg PO Q6H PRN PRN Reason: Pain, Mild (Pain Scale 1-3) Aspirin (Aspirin Enteric Coated 81 Mg Tablet.) 81 mg PO DAILY KEE Last Admin: 02/16/21 08:24 Dose: 81 mg Documented by: Atorvastatin Calcium (Atorvastatin Calcium 80 Mg Tablet) 80 mg PO BEDTIME KEE Gabapentin (Gabapentin 300 Mg Capsule) 300 mg PO BEDTIME KEE Sodium Chloride (Ns) 1,000 mls @ 75 mls/hr IVCONT .[id number] KEE Last Admin: 02/16/21 02:31 Dose: 75 mls/hr Documented by: Ceftriaxone Sodium 1 gm/ (Sodium Chloride) 50 mls @ 100 mls/hr IV Q24H KEE Lorazepam (Lorazepam 2 Mg/Ml Vial) 1 mg IVPUSH Q2H PRN PRN Reason: Seizures Melatonin (Melatonin 3 Mg Tablet) 6 mg PO BEDTIME PRN PRN Reason: Insomnia Rivaroxaban (Rivaroxaban 20 Mg Tablet) 20 mg PO DAILY@1700 [facility] Senna (Sennosides 8.6 Mg Tablet) 17.2 mg PO BEDTIME PRN PRN Reason: Constipation Sodium Chloride (0.9 % Sodium Chloride Flush 3 Ml Syringe) 3 ml IVFLUSH [facility] Last Admin: 02/16/21 08:24 Dose: 3 ml Documented by: Sodium Chloride (0.9 % Sodium Chloride Flush 3 Ml Syringe) 3 ml IVFLUSH [facility] Last Admin: 02/16/21 08:24 Dose: Not Given Documented by: Tamsulosin HCl (Tamsulosin Hcl 0.4 Mg Capsule) 0.4 mg PO BEDTIME [facility] Home Medications Medication Instructions Recorded Confirmed Last Taken Type atorvastatin 80 mg tablet 80 mg PO BEDTIME 04/25/20 02/16/21 Unknown History amlodipine 5 mg tablet 5 mg PO DAILY 06/20/20 02/16/21 Unknown History acetaminophen 325 mg tablet 650 mg PO Q4H PRN 02/16/21 02/16/21 Unknown History bisacodyl 10 mg rectal suppository 10 mg RI DAILY PRN 02/16/21 02/16/21 Unknown History calcium carbonate 600 mg-vitamin 1 tab PO BID 02/16/21 02/16/21 Unknown History D3 5 mcg (200 unit) tablet lidocaine 5 % topical patch 1 patch TOPICAL DAILY 02/16/21 02/16/21 Unknown History magnesium citrate (Citrate of 300 ml PO DAILY PRN 02/16/21 02/16/21 Unknown History Magnesia) magnesium hydroxide 400 mg/5 mL 30 ml PO DAILY PRN 02/16/21 02/16/21 Unknown History oral suspension (Milk of Magnesia) oxycodone 5 mg tablet 5 mg PO Q6H PRN 02/16/21 02/16/21 Unknown History rivaroxaban 20 mg tablet 20 mg PO QPM 02/16/21 02/16/21 Unknown History Physical Exam Vital Signs: Vital Signs: Last Vital Signs Temp 98.3 F 02/16/21 06:02 Pulse 60 02/16/21 06:02 Resp 12 02/16/21 06:02 BP 122/77 02/16/21 06:02 Pulse Ox 98 02/16/21 06:02 BMI result Body Mass Index 25.8 Neuro: Other: alert and awake looking around made eye contact but did not respond to verbal commands. He has right hemiparesis. Plantars are equivocal. Examination is limited Results Labs CBC & Chem 7: 02/16/21 07:36 02/16/21 07:36 Labs: Short CBC 02/15/21 02/16/21 Range/Units 21:16 07:36 WBC 13.6 H 9.7 (4.8-10.8) X10*3/uL Hgb 11.8 L 10.3 L (14.0-18.0) g/dl Hct 33.5 L 30.9 L (42.0-52.0) % Plt Count 292 210 D (160-400) X10*3/uL BMP 02/15/21 02/16/21 21:16 07:36 Sodium 142 146 H Potassium 3.5 3.3 Chloride 107 112 H Carbon Dioxide 25 27 BUN 29 H 24 H Creatinine 1.23 0.90 Calcium 9.6 8.9 D Liver Function 02/15/21 Range/Units 21:16 Total Bilirubin 0.7 (0.0-1.0) mg/dL Direct Bilirubin 0.3 (0.0-0.5) mg/dL AST 27 D (5-37) U/L ALT 38 (0-40) U/L Alkaline Phosphatase 130 H (39-117) U/L Albumin 3.3 L (3.5-5.0) g/dL Urine 02/15/21 Range/Units 22:00 Urine Color RED Urine Appearance TURBID Urine pH 8.5 H (5.0-8.0) Ur Specific [place] 1.010 (1.005-1.025) Urine Protein 3+ H (NEG-TRACE) MG/DL Urine Glucose (UA) 250 H (NEG) MG/DL head CT revealed a large left middle cerebral artery chronic ischemic infarction Assessment and Plan (1) Seizure: Status: Acute 65 years old man with underlying history of chronic left middle cerebral artery infarct probably related to atrial fibrillation resulting in right hemiparesis and aphasia. This type of lesions can typically cause seizures. He was brought here with report of seizure lasting for few minutes. My recommendation is to start him on levetiracetam 250 mg twice a day. Otherwise formal workup is not needed at this time. Procedures Date of Service Date of Service: 02/16/21
--- NOTE | 2021-02-16 12:00 | CA_ITS ---
Transthoracic Echocardiogram Patient (Last, First, Middle): Wyatt Boggs, Gender: Male Date of : 1955 Age: 65 Procedure Date: 02/16/2021 Procedure Type: Transthoracic Echocardiogram Location: ER Height: 177.8 cm Weight: 81.65 kg BSA: 2.00 m2 Heart Rate: bpm BP: 122 / 77 mmHg [employer]cycle [employer] Officer: Referring MD: Wilbur Barrett MD Symptoms: high troponins Study Quality: Fair ECG Rhythm: Sinus Conclusions: - The left ventricular systolic function is normal. The calculated ejection fraction is 63% by biplane method. - No obvious valvular pathology seen on this study. Findings Left Ventricle Normal left ventricular cavity size. There is mildly increased left ventricular wall thickness. The left ventricular systolic function is normal. The calculated ejection fraction is 63% by biplane method. There is no evidence of regional wall motion abnormalities. Diastolic function is normal for age. Right Ventricle Normal right ventricular cavity size and systolic function. Atria Both atria are normal in size. Aortic Valve The aortic valve was not well visualized. There is no aortic valve stenosis. There is no aortic valve regurgitation. Mitral Valve The mitral valve appears normal. There is trace mitral valve regurgitation. There is no mitral valve stenosis. Pulmonic Valve The pulmonic valve was not well visualized. Tricuspid Valve There is trace tricuspid valve regurgitation. The pulmonary artery systolic pressure is normal. Great Vessels The aorta was not well visualized. Venous The inferior vena cava was not well visualized. Pericardium/Pleural There is no evidence of pericardial effusion. Prior Study Comparison No prior study available for comparison. Recommendations, Care & Conclusions No obvious valvular pathology seen on this study. Measurements 2D Linear Measurements IVSd: 1.31 0.6-0.9/0.6-1.0 cm LVIDd: 3.94 3.9-5.3/4.2-5.9 cm LVIDd Index: 1.97 2.4-3.2/2.2-3.1 cm/m2 LVIDs: 2.67 2.0-3.6 cm LVPWd: 1.32 0.7-1.1 cm LA Diam: 3.50 2.7-3.8/3.0-4.0 cm LAIDs Index: 1.75 1.5-2.3 cm/m2 LV Mass: 231.33 67-162/88-224 g LV Mass Index: 115.66 43-95/49-115 g/m2 LVOT Diam: 2.00 3.0+(-)1.3 cm 2D Systolic Function EF 4C: 74.70 >55% EF 2C: 53.30 >55% EF BiP: 63.20 >55% Mitral Valve MV Pk E: 0.77 MV PK A: 0.64 MV Decel Time: 235.00 E/A: 1.20 E'Lateral: 9.57 E'Medial: 7.40 E/E' Med: 10.40 E/E' Lat: 8.10 PHT: 69.00 MVA PHT: 3.19 Decel Moca: 3.28 Aortic Valve AoV Pk Oliver: 1.35 AoV Mn Oliver: 0.95 AoV VTI: 0.31 AoV Pk Grad: 7.00 Aov Mn Grad: 4.00 SARITA Cont.VTI: 2.77 LVOT LVOT Pk Oliver: 1.10 LVOT Mn Oliver: 0.68 LVOT VTI: 0.27 LVOT Pk Grad: 5.00 LVOT Mn Grad: 3.00 LVOT Diam: 2.00 LVOT Area: 3.14 Diastolic Function MV Pk E: 0.77 MV Pk A: 0.64 E/A: 1.20 E'Medial: 7.40 E/E' Med: 10.40 E' Laterial: 9.57 E/E' Lat: 8.10 Right Ventricle TAPSE (mm): 29.00 TVS' Oliver: 12.00 Tricuspid Valve TR Pk Oliver: 1.32 TR Pk Grad: 7.00 Pulmonary Valve PV Pk Oliver: 0.99 Peak PV Grad: 4.00 Updated in Other Vendor System with Status of Final Johnathan Garcia MD electronically signed on 02/16/2021 12:54:37 PM with status of Final
--- NOTE | 2021-02-16 12:19 | MHC.CM.PN ---
Addendum entered by Karen Montaño 02/16/21 14:16: PER ALTERNATE HCP, MURIEL [phone], HIS , MIGUEL, IS THE BEST CONTACT. THE DIRECT NUMBER FOR MIGUEL IS: [phone] Original Note: PER EMR, PT IS MOSTLY NON-VERBAL AND BED BOUND AT BASELINE CM ATTEMPTED TO CONTACT PTS PRIMARY HCP, WENDY [phone], CALL WENT DIRECTLY TO WHICH WAS NOT SET UP SO A MESSAGE COULD NOT BE LEFT. CM CALLED THE ALTERNATE HCP, DAVID [phone]. DAVID ANSWERED BUT REQUESTED CM SPEAK TO HIS , MIGUEL HER [place] IS BETTER AND SHE ATTENDS ALL OF PTS DOCTORS APPTS. MIGUEL CONFIRMS THAT PT IS LTC AT [facility] [place] SHE CONFIRMS THE HCP AND PCP ON FILE ACCURATE IMM WAS DELIVERED, ORIGINAL WILL BE MAILED TO HCP, COPY WAS SENT TO MEDICAL RECORDS CURRENT DC PLAN IS FOR PT TO RETURN TO [facility]. PT IS A BED HOLD AT [facility]
--- NOTE | 2021-02-16 13:11 | PM.CNCAR ---
History of Present Illness History of Present Illness Date of Service: 02/16/21 Chief complaint: UTI Narrative: This is a cardiology consultation regarding elevated troponins. Patient himself is nonverbal and not able to give any information whatsoever. This is in spite of using Urdu tie layer. Per H and P, history of hypertension, hyperlipidemia, atrial fibrillation, GERD, UTIs, CVA with residual weakness, dysphagia and multiple other comorbidities listed. It seems that he was admitted for complaints of shaking and thought to be seizure lasting for almost 7 minutes. In this context, thought to have UTI. Troponins were also checked and they are elevated and hence we were asked to see him. Unfortunately patient not able to give any symptoms or other complaints. Review of Systems Review of Systems: Unable to obtain due to mental status PMFSH Past Medical History Medical History COVID-19 High cholesterol History of CVA (cerebrovascular accident) HTN (hypertension) HTN (hypertension) Paroxysmal atrial fibrillation Stroke Family History Family History Father No problems noted. Mother No problems noted. Surgical History Surgical History No pertinent past surgical history Social History Social History Household Members: Family Housing: House Do you presently have visiting nurse or other home services: No Unable to assess alcohol history related to: Unknown Alcohol intake: unknown Patient Tobacco Use Status: Tobacco use Unknown Advance Directives: Yes Advance Directives on File: Yes Advance Directives Date on File: 02/14/20 service: No Current occupational status: disabled Meds Allergies Allergy/AdvReac Type Severity Reaction Status Date / Time No Known Allergies Allergy Verified 02/12/21 09:00 [No Known Allergies*] Active Medications: Current Medications Acetaminophen (Acetaminophen 325 Mg Tablet) 650 mg PO Q6H PRN PRN Reason: Pain, Mild (Pain Scale 1-3) Aspirin (Aspirin Enteric Coated 81 Mg Tablet.) 81 mg PO DAILY KEE Last Admin: 02/16/21 08:24 Dose: 81 mg Documented by: Atorvastatin Calcium (Atorvastatin Calcium 80 Mg Tablet) 80 mg PO BEDTIME KEE Gabapentin (Gabapentin 300 Mg Capsule) 300 mg PO BEDTIME [facility] Sodium Chloride (Ns) 1,000 mls @ 75 mls/hr IVCONT .[id number] [facility] Last Admin: 02/16/21 02:31 Dose: 75 mls/hr Documented by: Ceftriaxone Sodium 1 gm/ (Sodium Chloride) 50 mls @ 100 mls/hr IV Q24H [facility] Lorazepam (Lorazepam 2 Mg/Ml Vial) 1 mg IVPUSH Q2H PRN PRN Reason: Seizures Melatonin (Melatonin 3 Mg Tablet) 6 mg PO BEDTIME PRN PRN Reason: Insomnia Rivaroxaban (Rivaroxaban 20 Mg Tablet) 20 mg PO DAILY@1700 [facility] Senna (Sennosides 8.6 Mg Tablet) 17.2 mg PO BEDTIME PRN PRN Reason: Constipation Sodium Chloride (0.9 % Sodium Chloride Flush 3 Ml Syringe) 3 ml IVFLUSH QSCOFT [facility] Last Admin: 02/16/21 08:24 Dose: 3 ml Documented by: Sodium Chloride (0.9 % Sodium Chloride Flush 3 Ml Syringe) 3 ml IVFLUSH [facility] Last Admin: 02/16/21 08:24 Dose: Not Given Documented by: Tamsulosin HCl (Tamsulosin Hcl 0.4 Mg Capsule) 0.4 mg PO BEDTIME [facility] Home Medications Medication Instructions Recorded Confirmed Last Taken Type atorvastatin 80 mg tablet 80 mg PO BEDTIME 04/25/20 02/16/21 Unknown History amlodipine 5 mg tablet 5 mg PO DAILY 06/20/20 02/16/21 Unknown History acetaminophen 325 mg tablet 650 mg PO Q4H PRN 02/16/21 02/16/21 Unknown History bisacodyl 10 mg rectal suppository 10 mg [place] DAILY PRN 02/16/21 02/16/21 Unknown History calcium carbonate 600 mg-vitamin 1 tab PO BID 02/16/21 02/16/21 Unknown History D3 5 mcg (200 unit) tablet lidocaine 5 % topical patch 1 patch TOPICAL DAILY 02/16/21 02/16/21 Unknown History magnesium citrate (Citrate of 300 ml PO DAILY PRN 02/16/21 02/16/21 Unknown History Magnesia) magnesium hydroxide 400 mg/5 mL 30 ml PO DAILY PRN 02/16/21 02/16/21 Unknown History oral suspension (Milk of Magnesia) oxycodone 5 mg tablet 5 mg PO Q6H PRN 02/16/21 02/16/21 Unknown History rivaroxaban 20 mg tablet 20 mg PO QPM 02/16/21 02/16/21 Unknown History Physical Exam Vital Signs: Vital Signs: Last Vital Signs Temp 98.3 F 02/16/21 06:02 Pulse 60 02/16/21 06:02 Resp 12 02/16/21 06:02 BP 122/77 02/16/21 06:02 Pulse Ox 98 02/16/21 06:02 BMI result Body Mass Index 25.8 Const: General: no acute distress HENMT: Other: Unremarkable Neck: Neck: Yes normal visual inspection Chest: Chest palpation & inspection: normal inspection of the chest Resp: Other: few basal crackles Cardio: Palpation: normal PMI Heart sounds: S1 normal heart sound present, S2 normal heart sound present, no gallops, no murmurs and no rubs GI: Palpation (GI): Soft to palpation Back/Spine/Pelvis: Other: unremarkable Skin: Lesions: other Neuro: Cranial nerves: Yes Other cranial nerve findings present Extrem: General: Yes other Psych: Mental Status: other Objective Labs and Meds Result diagrams: 02/16/21 07:36 02/16/21 07:36 Lab results: Laboratory Results - last 24 hr 02/15/21 02/15/21 02/15/21 21:16 21:16 21:16 WBC 13.6 H RBC 3.63 L Hgb 11.8 L Hct 33.5 L MCV 92.3 MCH 32.5 MCHC 35.2 RDW 13.5 Plt Count 292 MPV 9.0 L Immature Gran % (Auto) 0.4 Neut % (Auto) 91.3 H Lymph % (Auto) 3.2 L [place] % (Auto) 4.9 Eos % (Auto) 0.1 Baso % (Auto) 0.1 Lymph # (Auto) 0.4 L [place] # (Auto) 0.7 Eos # (Auto) 0.0 Baso # (Auto) 0.0 Abs Immat Gran (auto) 0.06 H Absolute Neuts (auto) 12.4 H Absolute Nucleated RBC 0.000 Nucleated RBC % (auto) 0.0 Smear Tech's Comments VERIFIED Sodium 142 Potassium 3.5 Chloride 107 Carbon Dioxide 25 Anion Gap 14 BUN 29 H Creatinine 1.23 Estim Creat Clear Calc 60.9 Estimated GFR 59 Random Glucose 198 H D Lactic Acid Lactic Acid F/U @ 2Hr Calcium 9.6 Total Bilirubin 0.7 Direct Bilirubin 0.3 AST 27 D ALT 38 Alkaline Phosphatase 130 H Troponin I High Sens 79.1 H B-Natriuretic Peptide Total Protein 6.5 Albumin 3.3 L Lipase 11 Urine Color Urine Appearance Urine pH Ur Specific [place] Urine Protein Urine Glucose (UA) Urine Ketones Urine Blood Urine Nitrite Ur Leukocyte Esterase Urine RBC Urine WBC Ur Squamous Epith Cells Amorphous Sediment Urine Bacteria Influenza Type A (PCR) Influenza Type B (PCR) RSV RNA Qual (PCR) SARS-CoV-2 RNA (RT-PCR) 02/15/21 02/15/21 02/15/21 21:16 21:16 21:16 WBC RBC Hgb Hct MCV MCH MCHC RDW Plt Count MPV Immature Gran % (Auto) Neut % (Auto) Lymph % (Auto) [place] % (Auto) Eos % (Auto) Baso % (Auto) Lymph # (Auto) [place] # (Auto) Eos # (Auto) Baso # (Auto) Abs Immat Gran (auto) Absolute Neuts (auto) Absolute Nucleated RBC Nucleated RBC % (auto) Smear Tech's Comments Sodium Potassium Chloride Carbon Dioxide Anion Gap BUN Creatinine Estim Creat Clear Calc Estimated GFR Random Glucose Lactic Acid 2.7 H* Lactic Acid F/U @ 2Hr Calcium Total Bilirubin Direct Bilirubin AST ALT Alkaline Phosphatase Troponin I High Sens B-Natriuretic Peptide 101 H Total Protein Albumin Lipase Urine Color Urine Appearance Urine pH Ur Specific [place] Urine Protein Urine Glucose (UA) Urine Ketones Urine Blood Urine Nitrite Ur Leukocyte Esterase Urine RBC Urine WBC Ur Squamous Epith Cells Amorphous Sediment Urine Bacteria Influenza Type A (PCR) NEGATIVE Influenza Type B (PCR) NEGATIVE RSV RNA Qual (PCR) NEGATIVE SARS-CoV-2 RNA (RT-PCR) NEGATIVE 02/15/21 02/16/21 02/16/21 22:00 00:39 00:39 WBC RBC Hgb Hct MCV MCH MCHC RDW Plt Count MPV Immature Gran % (Auto) Neut % (Auto) Lymph % (Auto) [place] % (Auto) Eos % (Auto) Baso % (Auto) Lymph # (Auto) [place] # (Auto) Eos # (Auto) Baso # (Auto) Abs Immat Gran (auto) Absolute Neuts (auto) Absolute Nucleated RBC Nucleated RBC % (auto) Smear Tech's Comments Sodium Potassium Chloride Carbon Dioxide Anion Gap BUN Creatinine Estim Creat Clear Calc Estimated GFR Random Glucose Lactic Acid Lactic Acid F/U @ 2Hr 2.0 Calcium Total Bilirubin Direct Bilirubin AST ALT Alkaline Phosphatase Troponin I High Sens 113.3 H* B-Natriuretic Peptide Total Protein Albumin Lipase Urine Color RED Urine Appearance TURBID Urine pH 8.5 H Ur Specific [place] 1.010 Urine Protein 3+ H Urine Glucose (UA) 250 H Urine Ketones 15 Urine Blood 3+ H Urine Nitrite POS H Ur Leukocyte Esterase 3+ H Urine RBC TNTC H Urine WBC 15-29 H Ur Squamous Epith Cells 1+ Amorphous Sediment 2+ Urine Bacteria 3+ Influenza Type A (PCR) Influenza Type B (PCR) RSV RNA Qual (PCR) SARS-CoV-2 RNA (RT-PCR) 02/16/21 02/16/21 07:36 07:36 WBC 9.7 RBC 3.24 L Hgb 10.3 L Hct 30.9 L MCV 95.4 MCH 31.8 MCHC 33.3 RDW 13.6 Plt Count 210 D MPV 9.4 Immature Gran % (Auto) 0.4 Neut % (Auto) 73.5 H Lymph % (Auto) 15.1 L [place] % (Auto) 10.6 Eos % (Auto) 0.1 Baso % (Auto) 0.3 Lymph # (Auto) 1.5 [place] # (Auto) 1.0 Eos # (Auto) 0.0 Baso # (Auto) 0.0 Abs Immat Gran (auto) 0.04 H Absolute Neuts (auto) 7.1 Absolute Nucleated RBC 0.000 Nucleated RBC % (auto) 0.0 Smear Tech's Comments Sodium 146 H Potassium 3.3 Chloride 112 H Carbon Dioxide 27 Anion Gap 10 L BUN 24 H Creatinine 0.90 Estim Creat Clear Calc 83.3 Estimated GFR > 60 Random Glucose 120 H D Lactic Acid Lactic Acid F/U @ 2Hr Calcium 8.9 D Total Bilirubin Direct Bilirubin AST ALT Alkaline Phosphatase Troponin I High Sens B-Natriuretic Peptide Total Protein Albumin Lipase Urine Color Urine Appearance Urine pH Ur Specific [place] Urine Protein Urine Glucose (UA) Urine Ketones Urine Blood Urine Nitrite Ur Leukocyte Esterase Urine RBC Urine WBC Ur Squamous Epith Cells Amorphous Sediment Urine Bacteria Influenza Type A (PCR) Influenza Type B (PCR) RSV RNA Qual (PCR) SARS-CoV-2 RNA (RT-PCR) ECG Interpretation: EKG with sinus rhythm, 94/Min; no significant ST-T changes and otherwise unremarkable. Imaging Radiologist's impression: Impressions Chest X-Ray 02/15/21 21:04 IMPRESSION: No acute intrathoracic disease Head CT 02/15/21 22:45 IMPRESSION: No acute intracranial pathology. Chronic left MCA territory infarct. Assessment and Plan (1) Elevated troponin: Status: Acute (2) Paroxysmal atrial fibrillation: Status: Acute (3) Cerebrovascular accident (CVA) involving left cerebral hemisphere: Status: Acute Troponin elevation could be related to the seizures itself. Due to mental status, unable to obtain any history from patient. However EKG unremarkable and echocardiogram did not show any wall motion abnormalities. Overall, considering his comorbidities, would not pursue any further workup at this time. He is already on anticoagulation with Xarelto for atrial fibrillation and hence does not need any IV heparin. Otherwise, medical issues can be treated accordingly. Procedures Date of Service Date of Service: 02/16/21
--- NOTE | 2021-02-16 14:29 | HO.PM.IMPN ---
Subjective Subjective Date of Service: 02/17/21 Interval History: f/u on seizure, comfortable, Review of Systems non verbal at that time Physical Exam Vital Signs: Vital Signs: Last Vital Signs Temp 98.3 F 02/16/21 13:42 Pulse 67 02/16/21 13:42 Resp 13 02/16/21 13:42 BP 119/63 02/16/21 13:42 Pulse Ox 98 02/16/21 13:42 BMI result Body Mass Index 25.8 Const: Other: General: Alert, no distress Resp: CTA bilateral CVS: S1,S2,RRR GI: +BS, NT, no distention Skin: No rash Neuro: motor grossly intact Psych: appropriate affect Objective Data Active Medications Acetaminophen (Acetaminophen 325 Mg Tablet) 650 mg PO Q6H PRN PRN Reason: Pain, Mild (Pain Scale 1-3) Aspirin (Aspirin Enteric Coated 81 Mg Tablet.Dr) 81 mg PO DAILY [facility] Last Admin: 02/16/21 08:24 Dose: 81 mg Documented by: JAVED Atorvastatin Calcium (Atorvastatin Calcium 80 Mg Tablet) 80 mg PO BEDTIME KEE Gabapentin (Gabapentin 300 Mg Capsule) 300 mg PO BEDTIME [facility] Sodium Chloride (Ns) 1,000 mls @ 75 mls/hr IVCONT .[id number] [facility] Last Admin: 02/16/21 14:17 Dose: Not Given Documented by: JAVED Non-Admin Reason: IV Running Ceftriaxone Sodium 1 gm/ (Sodium Chloride) 50 mls @ 100 mls/hr IV Q24H [facility] Lorazepam (Lorazepam 2 Mg/Ml Vial) 1 mg IVPUSH Q2H PRN PRN Reason: Seizures Melatonin (Melatonin 3 Mg Tablet) 6 mg PO BEDTIME PRN PRN Reason: Insomnia Rivaroxaban (Rivaroxaban 20 Mg Tablet) 20 mg PO DAILY@1700 [facility] Senna (Sennosides 8.6 Mg Tablet) 17.2 mg PO BEDTIME PRN PRN Reason: Constipation Sodium Chloride (0.9 % Sodium Chloride Flush 3 Ml Syringe) 3 ml IVFLUSH QSHIFT [facility] Last Admin: 02/16/21 14:22 Dose: Not Given Documented by: JAVED Non-Admin Reason: Patient Asleep Sodium Chloride (0.9 % Sodium Chloride Flush 3 Ml Syringe) 3 ml IVFLUSH QSHIFT [facility] Last Admin: 02/16/21 14:22 Dose: Not Given Documented by: JAVED Non-Admin Reason: Patient Asleep Tamsulosin HCl (Tamsulosin Hcl 0.4 Mg Capsule) 0.4 mg PO BEDTIME KEE Labs CBC & Chem 7: 02/16/21 07:36 02/16/21 07:36 Labs: Laboratory Results - last 24 hr 02/15/21 02/15/21 02/15/21 21:16 21:16 21:16 MCV 92.3 MCH 32.5 MCHC 35.2 RDW 13.5 Plt Count 292 MPV 9.0 L Immature Gran % (Auto) 0.4 Neut % (Auto) 91.3 H Lymph % (Auto) 3.2 L [place] % (Auto) 4.9 Eos % (Auto) 0.1 Baso % (Auto) 0.1 Lymph # (Auto) 0.4 L [place] # (Auto) 0.7 Eos # (Auto) 0.0 Baso # (Auto) 0.0 Abs Immat Gran (auto) 0.06 H Absolute Neuts (auto) 12.4 H Absolute Nucleated RBC 0.000 Nucleated RBC % (auto) 0.0 Smear Tech's Comments VERIFIED Anion Gap 14 Estim Creat Clear Calc 60.9 Estimated GFR 59 Random Glucose 198 H D Lactic Acid Lactic Acid F/U @ 2Hr Calcium 9.6 Total Bilirubin 0.7 Direct Bilirubin 0.3 AST 27 D ALT 38 Alkaline Phosphatase 130 H Troponin I High Sens 79.1 H B-Natriuretic Peptide Total Protein 6.5 Albumin 3.3 L Lipase 11 Urine Color Urine Appearance Urine pH Ur Specific [place] Urine Protein Urine Glucose (UA) Urine Ketones Urine Blood Urine Nitrite Ur Leukocyte Esterase Urine RBC Urine WBC Ur Squamous Epith Cells Amorphous Sediment Urine Bacteria Influenza Type A (PCR) Influenza Type B (PCR) RSV RNA Qual (PCR) SARS-CoV-2 RNA (RT-PCR) 02/15/21 02/15/21 02/15/21 21:16 21:16 21:16 MCV MCH MCHC RDW Plt Count MPV Immature Gran % (Auto) Neut % (Auto) Lymph % (Auto) [place] % (Auto) Eos % (Auto) Baso % (Auto) Lymph # (Auto) [place] # (Auto) Eos # (Auto) Baso # (Auto) Abs Immat Gran (auto) Absolute Neuts (auto) Absolute Nucleated RBC Nucleated RBC % (auto) Smear Tech's Comments Anion Gap Estim Creat Clear Calc Estimated GFR Random Glucose Lactic Acid 2.7 H* Lactic Acid F/U @ 2Hr Calcium Total Bilirubin Direct Bilirubin AST ALT Alkaline Phosphatase Troponin I High Sens B-Natriuretic Peptide 101 H Total Protein Albumin Lipase Urine Color Urine Appearance Urine pH Ur Specific [place] Urine Protein Urine Glucose (UA) Urine Ketones Urine Blood Urine Nitrite Ur Leukocyte Esterase Urine RBC Urine WBC Ur Squamous Epith Cells Amorphous Sediment Urine Bacteria Influenza Type A (PCR) NEGATIVE Influenza Type B (PCR) NEGATIVE RSV RNA Qual (PCR) NEGATIVE SARS-CoV-2 RNA (RT-PCR) NEGATIVE 02/15/21 02/16/21 02/16/21 22:00 00:39 00:39 MCV MCH MCHC RDW Plt Count MPV Immature Gran % (Auto) Neut % (Auto) Lymph % (Auto) [place] % (Auto) Eos % (Auto) Baso % (Auto) Lymph # (Auto) [place] # (Auto) Eos # (Auto) Baso # (Auto) Abs Immat Gran (auto) Absolute Neuts (auto) Absolute Nucleated RBC Nucleated RBC % (auto) Smear Tech's Comments Anion Gap Estim Creat Clear Calc Estimated GFR Random Glucose Lactic Acid Lactic Acid F/U @ 2Hr 2.0 Calcium Total Bilirubin Direct Bilirubin AST ALT Alkaline Phosphatase Troponin I High Sens 113.3 H* B-Natriuretic Peptide Total Protein Albumin Lipase Urine Color RED Urine Appearance TURBID Urine pH 8.5 H Ur Specific [place] 1.010 Urine Protein 3+ H Urine Glucose (UA) 250 H Urine Ketones 15 Urine Blood 3+ H Urine Nitrite POS H Ur Leukocyte Esterase 3+ H Urine RBC TNTC H Urine WBC 15-29 H Ur Squamous Epith Cells 1+ Amorphous Sediment 2+ Urine Bacteria 3+ Influenza Type A (PCR) Influenza Type B (PCR) RSV RNA Qual (PCR) SARS-CoV-2 RNA (RT-PCR) 02/16/21 02/16/21 07:36 07:36 MCV 95.4 MCH 31.8 MCHC 33.3 RDW 13.6 Plt Count 210 D MPV 9.4 Immature Gran % (Auto) 0.4 Neut % (Auto) 73.5 H Lymph % (Auto) 15.1 L [place] % (Auto) 10.6 Eos % (Auto) 0.1 Baso % (Auto) 0.3 Lymph # (Auto) 1.5 [place] # (Auto) 1.0 Eos # (Auto) 0.0 Baso # (Auto) 0.0 Abs Immat Gran (auto) 0.04 H Absolute Neuts (auto) 7.1 Absolute Nucleated RBC 0.000 Nucleated RBC % (auto) 0.0 Smear Tech's Comments Anion Gap 10 L Estim Creat Clear Calc 83.3 Estimated GFR > 60 Random Glucose 120 H D Lactic Acid Lactic Acid F/U @ 2Hr Calcium 8.9 D Total Bilirubin Direct Bilirubin AST ALT Alkaline Phosphatase Troponin I High Sens B-Natriuretic Peptide Total Protein Albumin Lipase Urine Color Urine Appearance Urine pH Ur Specific [place] Urine Protein Urine Glucose (UA) Urine Ketones Urine Blood Urine Nitrite Ur Leukocyte Esterase Urine RBC Urine WBC Ur Squamous Epith Cells Amorphous Sediment Urine Bacteria Influenza Type A (PCR) Influenza Type B (PCR) RSV RNA Qual (PCR) SARS-CoV-2 RNA (RT-PCR) Assessment and Plan (1) Seizure: Status: Acute Assessment and Plan: ? 65-year-old male with a past medical history of hypertension, hyperlipidemia, atrial fibrillation, GERD, history of recurrent UTIs, CVA with residual right-sided weakness, dysphagia, prior history of COVID-19, neurogenic bladder, chronic indwelling Walker, peripheral vascular disease, decubitus ulcer on the coccyx presented to the hospital with a chief complaint of seizure episode.? Seizure:Neuro recommends Keppra UTI: Continue ceftriaxone.? Patient has Walker catheter changed in the ER.? Follow up cultures. change to ceftin at dc Indeterminate troponins: likely from seizure, on xareto, cardiology advises no intervention decubitus ulcer:? on the coccyx-on wound VAC which was removed at the snf prior to presentation.? 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 Rate controlled.? Continue home Xarelto History of hypertension/hyperlipidemia: Continue home medications. Diet:? Patient was on dysphagia pureed diet.? Will consult speech and swallow.? Aspiration precautions Code status: Full code.? Patient has molst form Quality Stroke Does the patient have a stroke diagnosis?: No VTE Prior VTE?: No VTE Risk Level:: Medical - moderate - high VTE Device Contraindication: Treatment Not Indicated VTE Drug Contraindication: N/A - Med Ordered
[2021-02-16] MEDS: Rivaroxaban 20 MG TABLET PO (16:14)
[2021-02-16] MEDS: levETIRAcetam 500 MG TABLET PO (16:14)
[2021-02-16] MEDS: Calcium + Vitamin D 250 MG TABLET PO (23:42)
[2021-02-16] MEDS: Gabapentin 300 MG CAPSULE PO (23:42)
[2021-02-16] MEDS: Atorvastatin Calcium 80 MG TABLET PO (23:42)
[2021-02-16] MEDS: Tamsulosin HCL 0.4 MG CAPSULE PO (23:42)
[2021-02-16] MEDS: cefTRIAXone sodium 1 GM in 0.9 % Sodium Chloride 50 ML IV (23:43)
[2021-02-17] MEDS: 0.9 % Sodium Chloride 1,000 ML 75 ML IVCONT ×2 (03:48→16:13)
[2021-02-17] MEDS: levETIRAcetam 500 MG TABLET PO ×2 (03:48→14:38)
[2021-02-17 03:57] VITALS: BP 123/80; PULSE 79; RESP 20; TEMP 37; O2SAT 98
[2021-02-17 07:04] VITALS: BP 121/64; PULSE 47; RESP 18; TEMP 36.1; O2SAT 100
[2021-02-17] MEDS: Calcium + Vitamin D 250 MG TABLET PO ×2 (10:19→21:47)
[2021-02-17] MEDS: amLODIPine Besylate 5 MG TABLET PO (10:19)
[2021-02-17] MEDS: Losartan Potassium 50 MG TABLET 100 MG PO (10:20)
[2021-02-17] MEDS: 0.9 % Sodium Chloride Flush 3 ML SYRINGE IVFLUSH ×3 (10:20→21:47)
[2021-02-17] MEDS: Aspirin Enteric Coated 81 MG TABLET.DR PO (10:20)
--- NOTE | 2021-02-17 10:36 | P.DS_ITS ---
DS: Providers Provider Date of Service: 02/17/21 Date of admission: 02/16/21 06:06 Primary care physician: Lorraine Wiley MD Consults: 02/15/21 23:14 Consult to Neurology Routine Consulting Provider: [facility] Reason for consultation: seizure 02/16/21 04:24 Consult to Cardiology Routine Consulting Provider: Johnathan Garcia Reason for consultation: elevated troponins DS: Diagnosis Discharge Diagnosis (1) Seizure: Status: Resolved DS: Summary Hospital Course Hospital Course: Chief Complaint: seizure 65-year-old male with a past medical history of hypertension, hyperlipidemia, atrial fibrillation, GERD, history of recurrent UTIs, CVA with residual right- sided weakness, dysphagia, prior history of COVID-19, neurogenic bladder, chronic indwelling Walker, peripheral vascular disease, decubitus ulcer on the coccyx presented to the hospital with a chief complaint of seizure episode.? I spoke to the halfway staff at the [facility] in [place]; RN I spoke to mentioned that the RN who was taking care of the patient and was told that when she went in to check on the patient patient was shaking in his bed; appears to be seizure; lasted for 7 minutes; otherwise no inflammation of tongue biting, urinary incontinence; Family was notified. Patient is a poor historian; Denies any chest pain palpitations lightheadedness or dizziness.? Review of all other systems is limited. ER course:? For ER team patient noted to be alert and awake; urinalysis was abnormal consistent with UTI.? Given ceftriaxone.? Patient has a Walker catheter in place which was replaced in the ER on presentation. Hospital course: Seizure:Neuro recommends Keppra 250 bid and no further testing indicated UTI: Treated with ceftriaxone and changing to Ceftin at discharge. blood culture negative at 48 hours, urine culture - mixed logan. Indeterminate troponins:thought to be likely from seizure, on xareto, cardiology advises no intervention Patient had mild bradycardia- probably related to Keppra so which patient was taking initially 500 mg b.i.d. than adjusted to 250 b.i.d. patient's bradycardia is improving and patient is asymptomatic. tsh normal. Further management and workup outpatient. decubitus ulcer:? on the coccyx-on wound VAC which was removed at the halfway prior to presentation.Mri neg for oseto,? Pressure ulcer care for RN, He can then resume VAC use.? Continue with protein supplementation and offloading. follow up with wound care. History of AFib:? Rate controlled.? Continue home Xarelto History of hypertension/hyperlipidemia: Continue home medications. Diet:? Speech recommend Puree with [place] thick mild hypernatremia : seems probable Related to poor oral intake, seems to improved with hydration. Please encourage for p.o. hydration . monitor electrolytes in rehab. mild hypokalemia: Repleted. will add limited supply of potassium. please monitor electrolytes closely in rehab. Ielus/abd: generalized gaseous distention of the large and small bowel without focal bowel wall thickening or pneumatosis seen patient is passing bm's , asymptomatic surgery recomended -no intervention continue bowel regimen . Dischargeing back to rehab. explained above in detail daughter in law -Miss Marcelo: she understand above management in detail and in agreement with the above plan, time spent 50minute. Time Spent with Patient Time attestation: Total time spent providing and/or coordinating discharge services: Discharge coordination time: Greater than 30 minutes Quality: Stroke Does the patient have a stroke diagnosis?: No Physical Exam Verdana 4l Vital Signs: Verdana 4d Verdana 4d Vital Signs: Verdana 4d Verdana 4Bd Last Vital Signs Verdana 4d Oiler And Greaser New 4d Oiler And Greaser New 4d Temp 97 F 02/17/21 07:04 Oiler And Greaser New 4d Pulse 47 L 02/17/21 07:04 Oiler And Greaser New 4d Resp 18 02/17/21 07:04 BP 121/64 02/17/21 07:04 Pulse Ox 100 02/17/21 07:04 BMI result Body Mass Index 25.8 DS: Data Data Completed and Pending Labs on day of discharge: Preliminary micro results at discharge 02/15/21 22:01 Blood Culture - Preliminary Blood - Venous No growth after 24 hours. 02/15/21 21:16 Blood Culture - Preliminary Blood - Venous No growth after 24 hours. Discharge Plan Discharge Anticipated Discharge Date/Time: 02/17/21 10:44 Patient Disposition: Xfer SNF Discharge Diagnosis: Seizure, UTI Referrals: [facility] [Other] - [address] [facility] [place] [Outside] - 1 Week Lorraine Wiley MD [Primary Care Provider] - 1 Week Discharge Medications: New cefuroxime axetil 250 mg tablet 250 mg PO BID 7 Days Qty: 14 0RF Rx Instructions: for UTI potassium citrate 10 mEq (1,080 mg) tablet extended release 10 meq PO DAILY Qty: 4 0RF Continued (DME) wet wipes See Rx Instructions .ROUTE .MEDSUPPLY Qty: 5 3RF Rx Instructions: As directed (DME) miscellaneous medical supply Misc See Rx Instructions .ROUTE .MEDSUPPLY Qty: 1 0RF Rx Instructions: Full Electric Hospital Bed. DX: G81.91, I63.9, R13.10, I67.89; Daily, Duration: 999days/Lifetime. (DME) miscellaneous medical supply Misc See Rx Instructions .ROUTE .MEDSUPPLY Qty: 1 0RF Rx Instructions: Gait Belt, Dx: G81.91, I67.89. As Directed, Duration: 999 Days/Lifetime (DME) miscellaneous medical supply Misc See Rx Instructions .ROUTE .MEDSUPPLY Qty: 1 0RF Rx Instructions: Rosita Lift, DX: G81.91, I67.89. As directed, Duration: 999 days/Lifetime. (DME) miscellaneous medical supply Misc See Rx Instructions .ROUTE .MEDSUPPLY Qty: 1 0RF Rx Instructions: Tilt in Space Wheelchair, DX: G81.91, I67.89, R13.10, Z99.3. As directed, Duration: 999 days/Lifetime. ondansetron 4 mg tablet,disintegrating 4 mg PO Q6-8H PRN (Reason: nausea and vomiting) Qty: 10 0RF atorvastatin 80 mg tablet 80 mg PO BEDTIME 0RF lidocaine 5 % adhesive patch,medicated 1 patch topical DAILY 0RF oxycodone 5 mg tablet 5 mg PO Q6H PRN (Reason: Pain) 0RF acetaminophen 325 mg Tablet 650 mg PO Q4H PRN (Reason: fever/pain) 0RF calcium carbonate-vitamin D3 600 mg-5 mcg (200 unit) Tablet 1 tab PO BID 0RF magnesium hydroxide [Milk of Magnesia] 400 mg/5 mL Suspension 30 ml PO DAILY PRN (Reason: Constipation) 0RF bisacodyl 10 mg Suppository 10 mg NM DAILY PRN (Reason: Constipation) 0RF magnesium citrate [Citrate of Magnesia] Solution 300 ml PO DAILY PRN (Reason: Constipation) 0RF rivaroxaban 20 mg Tablet 20 mg PO QPM 0RF aspirin [Adult Low Dose Aspirin] 81 mg tablet,delayed release (DR/EC) 81 mg PO DAILY 90 Days Qty: 90 4RF losartan 100 mg tablet 100 mg PO DAILY 90 Days Qty: 90 4RF gabapentin 300 mg capsule 300 mg PO BEDTIME 30 Days Qty: 30 0RF (DME) miscellaneous medical supply Misc See Rx Instructions .ROUTE .MEDSUPPLY Qty: 1 0RF Rx Instructions: RUE resting hand Splint/Sling As directed, Dx: G81.91, I67.89, duration 999 days/life time tamsulosin 0.4 mg capsule 0.4 mg PO BEDTIME 90 Days Qty: 90 1RF amlodipine 5 mg tablet 5 mg PO DAILY 0RF No Action levetiracetam 100 mg/mL solution 2.5 ml PO BID 0RF ascorbic acid (vitamin C) [Vitamin C] 500 mg Tablet 500 mg PO DAILY 0RF Acidophilus Capsule BID 0RF zinc sulfate [Zinc-220] 50 mg zinc (220 mg) Capsule 50 mg PO DAILY 0RF naloxone 4 mg/actuation [place],Non-Aerosol INTRANASAL 0RF Discharge Orders: Discharge Order (Routine); Ordered 02/20/21 Ordered By: Scout Camara Diet: advance to usual diet Activity on Discharge: As tolerated Stand Alone Forms: Patient Portal Discharge page Care Plan Goals: prevent reshospitalization and seizure Health Concerns: seizure, UTI Plan of Treatment: Take all your medication as directed and follow up with your Doctor in a week Take Keppra for seizure take ceftin for UTI Assessment: as above Discharge Date/Time: 02/20/21 17:44
--- NOTE | 2021-02-17 10:48 | P.CDIC_ITS ---
CDI Concurrent Query Documentation Clarification: PHYSICIAN'S DOCUMENTATION REQUEST Date of Query: 02/17/21 1048 Patient Name: Wyatt Boggs Admit Date: 02/16/21 Dear Doctor, A review of the medical record indicates additional documentation may be indicated. Please review below and update the documentation accordingly. Clinical Indicators: Risk Factors/Clinical Indicators/Treatments Patient bedbound 2nd to old CVA from retirement has chronic decubitus coccyx ulcers. Wound VAC was removed at [facility] prior to presentation, pressure ulcer care RN. Based on the above, could you please provide, in the Progress Notes, further information regarding the ulcer/wound: Acute/chronic: * Pressure (decubitus) ulcer * Non-healing surgical wound * If a pressure ulcer, please also include the stage* of the ulcer: * Stage 1 - Skin intact, non-blanchable redness * Stage 2 - Partial thickness loss of dermis, includes intact or open blister * Stage 3 - Full thickness tissue not including bone, tendon, or muscle * Stage 4 - Full thickness tissue loss, including exposed bones, tendon, or muscle * Unstageable * Unable to determine *Source: National Pressure Ulcer Advisory Panel (NPUAP) Use of terms such as suspected, likely, concern for, or probable (associated with a specific diagnosis that is being evaluated, monitored, or treated as if it exists) are acceptable and can be coded in the inpatient setting, when documented at the time of discharge. Thank you, Shaye Middleton [facility], CDIS Extension: [phone] Please use your independent medical judgment in providing your response. THIS QUERY IS PART OF THE PERMANENT MEDICAL RECORD Provider Response: Other Other Diagnosis: Stage 4 pressure ulcer
--- NOTE | 2021-02-17 10:48 | MHC.CDI.CONC ---
CDI Concurrent Query Documentation Clarification: PHYSICIAN'S DOCUMENTATION REQUEST Date of Query: 02/17/21 1048 Patient Name: Wyatt Boggs Admit Date: 02/16/21 Dear Doctor, A review of the medical record indicates additional documentation may be indicated. Please review below and update the documentation accordingly. Clinical Indicators: Risk Factors/Clinical Indicators/Treatments Patient bedbound 2nd to old CVA from shelter has chronic decubitus coccyx ulcers. Wound VAC was removed at ID prior to presentation, pressure ulcer care RN. Based on the above, could you please provide, in the Progress Notes, further information regarding the ulcer/wound: Acute/chronic: Pressure (decubitus) ulcer Non-healing surgical wound If a pressure ulcer, please also include the stage* of the ulcer: Stage 1 - Skin intact, non-blanchable redness Stage 2 - Partial thickness loss of dermis, includes intact or open blister Stage 3 - Full thickness tissue not including bone, tendon, or muscle Stage 4 - Full thickness tissue loss, including exposed bones, tendon, or muscle Unstageable Unable to determine *Source: National Pressure Ulcer Advisory Panel (NPUAP) Use of terms such as suspected, likely, concern for, or probable (associated with a specific diagnosis that is being evaluated, monitored, or treated as if it exists) are acceptable and can be coded in the inpatient setting, when documented at the time of discharge. Thank you, Shaye Middleton [facility], CDIS Extension: [phone] Please use your independent medical judgment in providing your response. THIS QUERY IS PART OF THE PERMANENT MEDICAL RECORD Provider Response: Other Other Diagnosis: Stage 4 pressure ulcer
[2021-02-17 11:34] VITALS: BP 120/68; PULSE 59; RESP 18; TEMP 36.1; O2SAT 99
--- NOTE | 2021-02-17 11:54 | MHC.SL.SWA ---
Speech Pathologist Impression: Oral Phase Dysphagia Risk of Aspiration Due to: Neurological Condition Reduced Cognition Dysphasia Diet Status: Downgrade Liquid Consistency and Strategies for Safe Swallow: Liquid Intake Recommendation: Bruno Thick Liquid Intake Strategies: Small Sips Liquids by Teaspoon Only Solid Food Consistency: Dietary Recommendations: Pureed (NDD1) Additional Modifications to Solid Foods: Oral Medication Intake: Crushed with Puree Compensatory Strategies and Precautions to be Taken for Safe Swallow: Sitting Upright (90 deg) No Straw Liquids from Cup Liquids from Spoon Alternate Liquids/Solids Rate of Ingestion Change Supervision While Eating and Drinking for Safe Swallow: Total Supervision (1:1) Foods to Avoid: Mixed consistencies Swallowing Recommended Treatments: Compens. Strategy Educat. Recommendation for Speech: Inpatient Speech Therapy Comment: Pt presents with R Hemiparesis of all oral structures secondary to previous CVA, Oral Phase Dysphagia, w/ anterior/posterior mvt of tongue to propel bolus on all consistencies, better management of liquids when thickened. Pharygeal swallow trigger is timely with good laryngeal elevation observed. Recommend DOWNGRADE diet to PUREE (NDD1) with NECTAR THICK liquids, w/ meds CRUSHED IN PUREE. Pt will need full assist during meals, supervision w/ close monitor for aspiration signs. MD, A And P Technician, Nursing notified of recommendation by secure text, COMPUTER INSTRUCTOR Downgraded Diet in current orders. Frequency/Duration: Date Range for Service Req: Timeline to reassess: Bucket Chucker Clinican/Clinical Fellow: No Supervisory Statement: I have reviewed and agree with the student/clinical fellow's documentation: N/A Speech Language Pathologist: Anni Lloyd M.A., CCC-COMPUTER INSTRUCTOR
--- NOTE | 2021-02-17 12:01 | MHC.CM.PN ---
spoke with pts hcp adan [phone] to notify of dc today at 2:00 by amb
--- NOTE | 2021-02-17 12:46 | HO.WOUNDCONS ---
History of Present Illness Data of Consult Service Date: 02/17/21 Requesting physician: Wilbur Barrett Primary Care Provider: Lorraine Wiley MD [facility] Reason for consult: established coccygeal pressure ulcer 65 year old male with stoke history and right hemiparesis, understands some commands in [place] language, well known to wound care clinic. He is currently being worked up for osteomyelitis of the coccyx but imaging has been delayed. He presented on with reported seizure activity. It appears that Keppra was started and he will be returning to [facility] today. Asked to see coccyx wound by attending physician. Review of Systems Review of Systems: Yes Unobtainable due to mental condition [facility] Medical History COVID-19 High cholesterol History of CVA (cerebrovascular accident) HTN (hypertension) HTN (hypertension) Paroxysmal atrial fibrillation Stroke Family History Father No problems noted. Mother No problems noted. Surgical History No pertinent past surgical history Social History Household Members: Unknown / Unable to assess Housing: Prison Do you presently have visiting nurse or other home services: No Unable to assess alcohol history related to: Unable to respond Alcohol intake: unknown Patient Tobacco Use Status: Tobacco use Unknown Advance Directives Date on File: 02/14/20 service: No Current occupational status: disabled Meds Allergies Allergy/AdvReac Type Severity Reaction Status Date / Time No Known Allergies Allergy Verified 02/12/21 09:00 [No Known Allergies*] Active Medications: Current Medications Acetaminophen (Acetaminophen 325 Mg Tablet) 650 mg PO Q4H PRN PRN Reason: fever/pain Amlodipine Besylate (Amlodipine Besylate 5 Mg Tablet) 5 mg PO DAILY [facility]; Protocol Last Admin: 02/17/21 10:19 Dose: 5 mg Documented by: Aspirin (Aspirin Enteric Coated 81 Mg Tablet.) 81 mg PO DAILY [facility] Last Admin: 02/17/21 10:20 Dose: 81 mg Documented by: Atorvastatin Calcium (Atorvastatin Calcium 80 Mg Tablet) 80 mg PO BEDTIME KEE Last Admin: 02/16/21 23:42 Dose: 80 mg Documented by: Bisacodyl (Bisacodyl 10 Mg Supp.Rect) 10 mg IA DAILY PRN PRN Reason: Constipation Calcium Carbonate/Cholecalciferol (Calcium + Vitamin D 250 Mg Tablet) 250 mg PO BID [facility] Last Admin: 02/17/21 10:19 Dose: 250 mg Documented by: Gabapentin (Gabapentin 300 Mg Capsule) 300 mg PO BEDTIME [facility] Last Admin: 02/16/21 23:42 Dose: 300 mg Documented by: Sodium Chloride (Ns) 1,000 mls @ 75 mls/hr IVCONT .[id number] [facility] Last Admin: 02/17/21 03:48 Dose: 75 mls/hr Documented by: Ceftriaxone Sodium 1 gm/ (Sodium Chloride) 50 mls @ 100 mls/hr IV Q24H [facility] Last Infusion: 02/17/21 00:20 Dose: Infused Documented by: Levetiracetam (Levetiracetam 500 Mg Tablet) 500 mg PO Q12H [facility] Last Admin: 02/17/21 03:48 Dose: 500 mg Documented by: Lidocaine (Lidocaine 4 % Patch Adh..Patch) 1 patch TRANSDERMA DAILY [facility] Last Admin: 02/17/21 10:20 Dose: Not Given Documented by: Lorazepam (Lorazepam 2 Mg/Ml Vial) 1 mg IVPUSH Q2H PRN PRN Reason: Seizures Losartan Potassium (Losartan Potassium 50 Mg Tablet) 100 mg PO DAILY [facility]; Protocol Last Admin: 02/17/21 10:20 Dose: 100 mg Documented by: Magnesium Citrate (Magnesium Citrate 300 Ml Solution) 300 ml PO DAILY PRN PRN Reason: Constipation Magnesium Hydroxide (Milk Of Magnesia 30 Ml Oral.Susp) 30 ml PO DAILY PRN PRN Reason: Constipation Melatonin (Melatonin 3 Mg Tablet) 6 mg PO BEDTIME PRN PRN Reason: Insomnia Ondansetron HCl (Ondansetron Odt 4 Mg Tab.Rapdis) 4 mg TRANSLINGU Q6H PRN PRN Reason: nausea and vomiting Rivaroxaban (Rivaroxaban 20 Mg Tablet) 20 mg PO DAILY@1700 [facility] Last Admin: 02/16/21 16:14 Dose: 20 mg Documented by: Senna (Sennosides 8.6 Mg Tablet) 17.2 mg PO BEDTIME PRN PRN Reason: Constipation Sodium Chloride (0.9 % Sodium Chloride Flush 3 Ml Syringe) 3 ml IVFLUSH [facility] Last Admin: 02/17/21 10:20 Dose: 3 ml Documented by: Sodium Chloride (0.9 % Sodium Chloride Flush 3 Ml Syringe) 3 ml IVFLUSH [facility]YCHIATRIC Last Admin: 02/17/21 10:21 Dose: Not Given Documented by: Tamsulosin HCl (Tamsulosin Hcl 0.4 Mg Capsule) 0.4 mg PO BEDTIME [facility] Last Admin: 02/16/21 23:42 Dose: 0.4 mg Documented by: Home Medications Medication Instructions Recorded Confirmed Last Taken Type atorvastatin 80 mg tablet 80 mg PO BEDTIME 04/25/20 02/16/21 Unknown History amlodipine 5 mg tablet 5 mg PO DAILY 06/20/20 02/16/21 Unknown History acetaminophen 325 mg tablet 650 mg PO Q4H PRN 02/16/21 02/16/21 Unknown History bisacodyl 10 mg rectal suppository 10 mg IA DAILY PRN 02/16/21 02/16/21 Unknown History calcium carbonate 600 mg-vitamin 1 tab PO BID 02/16/21 02/16/21 Unknown History D3 5 mcg (200 unit) tablet lidocaine 5 % topical patch 1 patch TOPICAL DAILY 02/16/21 02/16/21 Unknown History magnesium citrate (Citrate of 300 ml PO DAILY PRN 02/16/21 02/16/21 Unknown History Magnesia) magnesium hydroxide 400 mg/5 mL 30 ml PO DAILY PRN 02/16/21 02/16/21 Unknown History oral suspension (Milk of Magnesia) oxycodone 5 mg tablet 5 mg PO Q6H PRN 02/16/21 02/16/21 Unknown History rivaroxaban 20 mg tablet 20 mg PO QPM 02/16/21 02/16/21 Unknown History Physical Exam Vital Signs and Narrative: Vital Signs: Last Vital Signs Temp 97 F 02/17/21 11:34 Pulse 59 02/17/21 11:34 Resp 18 02/17/21 11:34 BP 120/68 02/17/21 11:34 Pulse Ox 99 02/17/21 11:34 BMI result Body Mass Index 25.8 He is comfortable sitting up in bed. He nods appropriately yes and no to questions in his [place] language. He agrees to have his head position changed. He has right hemiparesis. He has an IV in the right forearm. No swelling or redness in the right extremity. The right leg also shows no evidence of swelling or redness. When I attempt to rolled the patient onto his left side, says no no no and confirms for me that he has too much pain for me to roll him. I have seen his wound many times and plan to see after he is discharged. This has been a stage IV in the past with exposed muscle and fascia. Results Labs CBC and Chem 7: 02/16/21 07:36 02/16/21 07:36 Assessment and Plan (1) Pressure ulcer of coccygeal region, stage 4: Status: Acute this is a non hospital acquired long-standing coccygeal ulcer associated with pressure which results from poor mobility following his stroke and right hemiparesis. We have been following him for over a year in the wound clinic and he needs a CT scan of his pelvis to rule out osteomyelitis. He has been responding quite well to the wound VAC use. We understand this cannot be placed within the hospital setting. For care of the patient, alginate is most appropriate to transfer the patient back to his facility. He can then resume VAC use. Continue with protein supplementation and offloading.
[2021-02-17 12:57] LABS: COVID-19 Test Negative (Negative)
[2021-02-17 14:27] VITALS: BMI 25.8
--- NOTE | 2021-02-17 14:32 | MHC.CLN ---
NUTRITION CONSULT CONSULT FOR WOUND, STAGE IV TO COCCYX. ADDING ENSURE BID AND LAURA BID TO PROVIDE ADDITIONAL 860 KCAL, 31 G PROTEIN.
[2021-02-17 15:41] VITALS: BP 108/60; PULSE 54; RESP 16; TEMP 36.7; O2SAT 100
[2021-02-17] MEDS: Rivaroxaban 20 MG TABLET PO (16:10)
--- NOTE | 2021-02-17 16:14 | HO.PM.IMPN ---
Subjective Subjective Date of Service: 02/17/21 Interval History: f/u on seizure, comfortable, noted bradycardia today with HR in 30s and 40 Review of Systems non verbal at that time Physical Exam Vital Signs: Vital Signs: Last Vital Signs Temp 98.0 F 02/17/21 15:41 Pulse 54 02/17/21 15:41 Resp 16 02/17/21 15:41 BP 108/60 02/17/21 15:41 Pulse Ox 100 02/17/21 15:41 BMI result Body Mass Index 25.8 Const: Other: General: Alert, no distress Resp: CTA bilateral CVS: S1,S2,RRR GI: +BS, NT, no distention Skin: No rash Neuro: motor grossly intact Psych: appropriate affect Objective Data Active Medications Acetaminophen (Acetaminophen 325 Mg Tablet) 650 mg PO Q4H PRN PRN Reason: fever/pain Amlodipine Besylate (Amlodipine Besylate 5 Mg Tablet) 5 mg PO DAILY [facility]; Protocol Last Admin: 02/17/21 10:19 Dose: 5 mg Documented by: SKLYER Aspirin (Aspirin Enteric Coated 81 Mg Tablet.Dr) 81 mg PO DAILY [facility] Last Admin: 02/17/21 10:20 Dose: 81 mg Documented by: SKYLER Atorvastatin Calcium (Atorvastatin Calcium 80 Mg Tablet) 80 mg PO BEDTIME [facility] Last Admin: 02/16/21 23:42 Dose: 80 mg Documented by: WISAM Bisacodyl (Bisacodyl 10 Mg Supp.Rect) 10 mg [place] DAILY PRN PRN Reason: Constipation Calcium Carbonate/Cholecalciferol (Calcium + Vitamin D 250 Mg Tablet) 250 mg PO BID [facility] Last Admin: 02/17/21 10:19 Dose: 250 mg Documented by: SKYLER Gabapentin (Gabapentin 300 Mg Capsule) 300 mg PO BEDTIME [facility] Last Admin: 02/16/21 23:42 Dose: 300 mg Documented by: WISAM Sodium Chloride (Ns) 1,000 mls @ 75 mls/hr IVCONT .[id number] [facility] Last Infusion: 02/17/21 14:33 Dose: 0 mls/hr Documented by: SKYLER Ceftriaxone Sodium 1 gm/ (Sodium Chloride) 50 mls @ 100 mls/hr IV Q24H [facility] Last Infusion: 02/17/21 00:20 Dose: 0 mls/hr Documented by: WISAM Levetiracetam (Levetiracetam 500 Mg Tablet) 500 mg PO Q12H [facility] Last Admin: 02/17/21 14:38 Dose: 500 mg Documented by: SKYLER Lidocaine (Lidocaine 4 % Patch Adh..Patch) 1 patch TRANSDERMA DAILY [facility] Last Admin: 02/17/21 10:20 Dose: Not Given Documented by: SKYLER Non-Admin Reason: no pain Lorazepam (Lorazepam 2 Mg/Ml Vial) 1 mg IVPUSH Q2H PRN PRN Reason: Seizures Losartan Potassium (Losartan Potassium 50 Mg Tablet) 100 mg PO DAILY [facility]; Protocol Last Admin: 02/17/21 10:20 Dose: 100 mg Documented by: SKYLER Magnesium Citrate (Magnesium Citrate 300 Ml Solution) 300 ml PO DAILY PRN PRN Reason: Constipation Magnesium Hydroxide (Milk Of Magnesia 30 Ml Oral.Susp) 30 ml PO DAILY PRN PRN Reason: Constipation Melatonin (Melatonin 3 Mg Tablet) 6 mg PO BEDTIME PRN PRN Reason: Insomnia Ondansetron HCl (Ondansetron Odt 4 Mg Tab.Rapdis) 4 mg TRANSLINGU Q6H PRN PRN Reason: nausea and vomiting Rivaroxaban (Rivaroxaban 20 Mg Tablet) 20 mg PO DAILY@1700 [facility] Last Admin: 02/16/21 16:14 Dose: 20 mg Documented by: JAVED Senna (Sennosides 8.6 Mg Tablet) 17.2 mg PO BEDTIME PRN PRN Reason: Constipation Sodium Chloride (0.9 % Sodium Chloride Flush 3 Ml [facility]) [facility] Admin: 02/17/21 10:20 Dose: 3 ml Documented by: SKYLER Sodium Chloride (0.9 % Sodium Chloride Flush 3 Ml Syringe) 3 ml IVFLUSH [facility] Last Admin: 02/17/21 10:21 Dose: Not Given Documented by: SKYLER Non-Admin Reason: No Access Tamsulosin HCl (Tamsulosin Hcl 0.4 Mg Capsule) 0.4 mg PO BEDTIME [facility] Last Admin: 02/16/21 23:42 Dose: 0.4 mg Documented by: WIASM Labs CBC & Chem 7: 02/16/21 07:36 02/16/21 07:36 Labs: Laboratory Results - last 24 hr 02/17/21 12:25 COVID-19 ([facility]LE) Negative COVID-19 Clin Com See Note Microbiology Microbiology Results: Microbiology 02/16/21 00:39 Urine Culture - Final Urine clean catch - Urine lawosn top 02/15/21 22:01 Blood Culture - Preliminary Blood - Venous No growth after 24 hours. 02/15/21 21:16 Blood Culture - Preliminary Blood - Venous No growth after 24 hours. Assessment and Plan (1) Seizure: Status: Acute Assessment and Plan: ? 65-year-old male with a past medical history of hypertension, hyperlipidemia, atrial fibrillation, GERD, history of recurrent UTIs, CVA with residual right-sided weakness, dysphagia, prior history of COVID-19, neurogenic bladder, chronic indwelling Walker, peripheral vascular disease, decubitus ulcer on the coccyx presented to the hospital with a chief complaint of seizure episode.? Seizure:Neuro recommends Keppra, holding next dose today d/t bradycardia if HR better tomorrow, will increase reduce dose to 250 , bid as it maybe causing bradycardia Bradycardia--sinus, assymptomatic, possbily d/t keppra UTI: Continue ceftriaxone.? Patient has Walker catheter changed in the ER.? Follow up cultures. change to ceftin at dc Indeterminate troponins: likely from seizure, on xareto, cardiology advises no intervention decubitus ulcer:? on the coccyx-on wound VAC which was removed at the residential prior to presentation.? 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 Rate controlled.? Continue home Xarelto History of hypertension/hyperlipidemia: Continue home medications. Diet:? Patient was on dysphagia pureed diet.? Will consult speech and swallow.? Aspiration precautions Code status: Full code.? Patient has molst form Quality Stroke Does the patient have a stroke diagnosis?: No VTE Prior VTE?: No VTE Risk Level:: Medical - moderate - high VTE Device Contraindication: Treatment Not Indicated VTE Drug Contraindication: N/A - Med Ordered
[2021-02-17 19:39] VITALS: BP 138/70; PULSE 70; RESP 18; TEMP 36.6; O2SAT 100
[2021-02-17] MEDS: Atorvastatin Calcium 80 MG TABLET PO (21:47)
[2021-02-17] MEDS: Tamsulosin HCL 0.4 MG CAPSULE PO (21:47)
[2021-02-17] MEDS: cefTRIAXone sodium 1 GM in 0.9 % Sodium Chloride 50 ML IV (21:47)
[2021-02-18] VITALS (8 sets, daily range): BP systolic 126–143; BP diastolic 65–85; PULSE 54–81; RESP 18–20; TEMP 36.5–37.1; O2SAT 98–100
[2021-02-18] MEDS: levETIRAcetam 500 MG TABLET PO (05:09)
[2021-02-18] MEDS: 0.9 % Sodium Chloride 1,000 ML 75 ML IVCONT ×2 (05:10→19:37)
--- NOTE | 2021-02-18 09:12 | PC.NURSE ---
Skin/Wound assessment completed today. 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 Silver alginate applied to wound bed covered with large foam dressing. A wiound vac with be reapplied once he returns back to [facility]. No other skin issues noted at this time.
[2021-02-18] MEDS: 0.9 % Sodium Chloride Flush 3 ML SYRINGE IVFLUSH ×5 (09:22→23:24)
[2021-02-18] MEDS: Aspirin Enteric Coated 81 MG TABLET.DR PO (09:23)
[2021-02-18] MEDS: amLODIPine Besylate 5 MG TABLET PO (09:23)
[2021-02-18] MEDS: Calcium + Vitamin D 250 MG TABLET PO ×2 (09:23→20:33)
[2021-02-18] MEDS: Losartan Potassium 50 MG TABLET 100 MG PO (09:23)
--- NOTE | 2021-02-18 09:23 | P.CDIR_ITS ---
Documented by User: Shaye Middleton CCS, CDIS 02/18/21 09:28 Retrospective Query PHYSICIAN'S DOCUMENTATION REQUEST Date of Query: 02/18/21922 Patient Name: Wyatt Boggs Admit Date: 02/16/21 Dear Doctor, A review of the medical record indicates additional documentation may be indicated. Please review below and update the documentation accordingly. Clinical Indicators: Risk Factors/Clinical Indicators/Treatments Wound care notes 02/17 - Pressure injury coccyx Stage IV. Foam dressing. Wound care notes 02/18 - Stage 4 coccyx wound with muscle and fascia showing. Silver Alginate applied, foam dressing. Adding ensure bid to promote wound healing. Bedbound from longterm, has chronic decubitus coccyx ulcer. Based on the above, could you please provide, in the Progress Notes, further information regarding the ulcer/wound: Pressure ulcer coccyx: * If a pressure ulcer, please also include the stage* of the ulcer: * Stage 1 - Skin intact, non-blanchable redness * Stage 2 - Partial thickness loss of dermis, includes intact or open blister * Stage 3 - Full thickness tissue not including bone, tendon, or muscle * Stage 4 - Full thickness tissue loss, including exposed bones, tendon, or muscle * Unstageable - Full thickness tissue loss in which the base of the ulcer is covered by slough (yellow, gant, lawson, green or brown) and/or eschar (gant, brown, or black) in the wound bed. * Suspected deep tissue injury - Purple or maroon localized area of discolored intact skin or blood-filled blister due to damage of underlying soft tissues from pressure and/or shear. The area may be preceded by tissue that is painful, firm, mushy, boggy, warmer, or cooler as compare to adjacent tissue. * Unable to determine *Source: National Pressure Ulcer Advisory Panel (NPUAP) Use of terms such as suspected, likely, concern for, or probable (associated with a specific diagnosis that is being evaluated, monitored, or treated as if it exists) are acceptable and can be coded in the inpatient setting, when documented at the time of discharge. Thank you, Shaye Middleton CCS, CDIS Extension:[phone] Please use your independent medical judgment in providing your response. THIS QUERY IS PART OF THE PERMANENT MEDICAL RECORD Documented by User: Kvng Whittaker MD 02/19/21 08:33 Retrospective Query Provider Response: Other ( long-standing coccygeal ulcer STAGE 4)
[2021-02-18] MEDS: Lidocaine 4 % Patch ADH..PATCH 1 PATCH TRANSDERMA (09:24)
--- NOTE | 2021-02-18 10:53 | MHC.SL.DTX ---
Dysphagia Diet modifications: Last documented Solid diet consistencies: Pureed (NDD1) Last documented Liquid consistency: Pemberton Thick Last documented Medication Administration:Whole with Puree Changes made to current diet?: No Liquid Consistency and Strategies: Liquid Intake Recommendation: Pemberton Thick Compensatory Strategies for Safe Swallow: Small Sips Liquids by Teaspoon Only Compensatory Strategies for Safe Swallow(b): Sitting Upright (90 deg) No Straw Liquids from Cup Liquids from Spoon Alternate Liquids/Solids Rate of Ingestion Change Solid Food Consistency: Dietary Recommendations: Pureed (NDD1) Additional Modifications to Solids: Oral Medication Intake: Crushed with Puree Strategies and Precautions to be Taken for Safe Swallow: Sitting Upright (90 deg) No Straw Liquids from Cup Liquids from Spoon Alternate Liquids/Solids Rate of Ingestion Change Supervision While Eating and/Drinking: Total Supervision (1:1) Foods to Avoid: Mixed consistencies Swallowing Recommended Treatments: Compens. Strategy Educat. 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 Pharygeal swallow trigger is mildly delayed on some swallows, with Laryngeal transit on observation having greater ROM on L side, with good elevation, no clinical s/s aspiration on liquid/puree trials. Recommend continue diet of PUREE (NDD1) with NECTAR THICK liquids, w/ meds CRUSHED IN PUREE. Pt will need full assist during meals, supervision w/ close monitor for aspiration signs. Pt to be D/C'd back to [facility] this p.m. Frequency/Duration: Date Range for Service Req: Timeline to reassess: Additional Comments: Pt will be returning to [facility] this p.m. Treatment: Pt seen this a.m to reassess swallow and monitor toleration of diet. Pt communicated with in Kiswahili, however Pt continues to be nonverbal, communicating through facial expression and gestures. Y/N responses were unreliable. Pt continues to present w/ right droop, R flaccidity of oral structures. Pt accepted tsps of apple sauce readily, demonstrated a pattern of mashing and propelling with tongue for oral phase, mild delay initiating swallow on all presentations. Laryngeal movement/transit visibly more evident on L side, w/good elevation noted on swallow. No clinical s/s aspiration on multiple presentations of puree. Pt took tsp of water/thin liquid from tsp. Some trace escape of liquid from mouth on right, pt similarly uses ant/post up/down tongue movement to propel liquid. No clinical s/s aspiration, however continue to recommend NECTAR Thick liquids for more effective oral management of liquid bolus. Recommend Pt Continue on Diet of PUREE (NDD1) and NECTAR THICK liquids. Assessment: Brand Leader Clinican/Clinical Fellow: No Supervisory Statement: I have reviewed and agree with the student/clinical fellow's documentation: N/A Speech Language Pathologist: Anni Lloyd M.A., [facility]-NETWORK DEVELOPMENT COORDINATOR
--- NOTE | 2021-02-18 14:04 | P.PNIM_ITS ---
Subjective Subjective Date of Service: 02/18/21 Interval History: f/u on seizure, comfortable, noted bradycardia -overbnight in 40-50 range Review of Systems non verbal at that time Physical Exam Vital Signs: Vital Signs: Last Vital Signs Temp 98.6 F 02/18/21 11:13 Pulse 77 02/18/21 11:13 Resp 20 02/18/21 11:13 BP 143/85 H 02/18/21 11:13 Pulse Ox 99 02/18/21 11:13 BMI result Body Mass Index 25.8 General: Alert, no distress Resp:? CTA bilateral CVS: S1,S2,RRR GI: +BS, NT, no distention Skin: No rash Neuro:? motor grossly intact Psych: appropriate affect Objective Data Active Medications Acetaminophen (Acetaminophen 325 Mg Tablet) 650 mg PO Q4H PRN PRN Reason: fever/pain Amlodipine Besylate (Amlodipine Besylate 5 Mg Tablet) 5 mg PO DAILY [facility]; Protocol Last Admin: 02/18/21 09:23 Dose: 5 mg Documented by: ELIZA Aspirin (Aspirin Enteric Coated 81 Mg Tablet.Dr) 81 mg PO DAILY [facility] Last Admin: 02/18/21 09:23 Dose: 81 mg Documented by: ELIZA Atorvastatin Calcium (Atorvastatin Calcium 80 Mg Tablet) 80 mg PO BEDTIME [facility] Last Admin: 02/17/21 21:47 Dose: 80 mg Documented by: WISAM Bisacodyl (Bisacodyl 10 Mg Supp.Rect) 10 mg [place] DAILY PRN PRN Reason: Constipation Calcium Carbonate/Cholecalciferol (Calcium + Vitamin D 250 Mg Tablet) 250 mg PO BID [facility] Last Admin: 02/18/21 09:23 Dose: 250 mg Documented by: ELIZA Sodium Chloride (Ns) 1,000 mls @ 75 mls/hr IVCONT .[id number] [facility] Last Admin: 02/18/21 05:10 Dose: 75 mls/hr Documented by: YVETTE Ceftriaxone Sodium 1 gm/ (Sodium Chloride) 50 mls @ 100 mls/hr IV Q24H [facility] Last Infusion: 02/17/21 22:54 Dose: 0 mls/hr Documented by: WISAM Levetiracetam (Levetiracetam 250 Mg Tablet) 250 mg PO Q12H [facility] Lidocaine (Lidocaine 4 % Patch Adh..Patch) 1 patch TRANSDERMA DAILY [facility] Last Admin: 02/18/21 09:24 Dose: 1 patch Documented by: ELIZA Lorazepam (Lorazepam 2 Mg/Ml Vial) 1 mg IVPUSH Q2H PRN PRN Reason: Seizures Losartan Potassium (Losartan Potassium 50 Mg Tablet) 100 mg PO DAILY [facility]; Protocol Last Admin: 02/18/21 09:23 Dose: 100 mg Documented by: ELIZA Magnesium Citrate (Magnesium Citrate 300 Ml Solution) 300 ml PO DAILY PRN PRN Reason: Constipation Magnesium Hydroxide (Milk Of Magnesia 30 Ml Oral.Susp) 30 ml PO DAILY PRN PRN Reason: Constipation Melatonin (Melatonin 3 Mg Tablet) 6 mg PO BEDTIME PRN PRN Reason: Insomnia Ondansetron HCl (Ondansetron Odt 4 Mg Tab.Rapdis) 4 mg TRANSLINGU Q6H PRN PRN Reason: nausea and vomiting Rivaroxaban (Rivaroxaban 20 Mg Tablet) 20 mg PO DAILY@1700 [facility] Last Admin: 02/17/21 16:10 Dose: 20 mg Documented by: JOSÉ MIGUEL Senna (Sennosides 8.6 Mg Tablet) 17.2 mg PO BEDTIME PRN PRN Reason: Constipation Sodium Chloride (0.9 % Sodium Chloride Flush 3 Ml Syringe) [facility] Last Admin: 02/18/21 09:22 Dose: 3 ml Documented by: ELIZA Sodium Chloride (0.9 % Sodium Chloride Flush 3 Ml Syringe) 3 ml IVFLUSH [facility] Last Admin: 02/18/21 09:22 Dose: 3 ml Documented by: ELIZA Tamsulosin HCl (Tamsulosin Hcl 0.4 Mg Capsule) 0.4 mg PO BEDTIME [facility] Last Admin: 02/17/21 21:47 Dose: 0.4 mg Documented by: WISAM Labs CBC & Chem 7: 02/16/21 07:36 02/16/21 07:36 Microbiology Microbiology Results: Microbiology 02/15/21 22:01 Blood Culture - Preliminary Blood - Venous No growth after 48 hours. 02/15/21 21:16 Blood Culture - Preliminary Blood - Venous No growth after 48 hours. 02/16/21 00:39 Urine Culture - Final Urine clean catch - Urine lawson top Assessment and Plan (1) Acute UTI: Status: Acute Assessment and Plan: 65-year-old male with a past medical history of hypertension, hyperlipidemia, atrial fibrillation, GERD, history of recurrent UTIs, CVA with residual right- sided weakness, dysphagia, prior history of COVID-19, neurogenic bladder, chronic indwelling Walker, peripheral vascular disease, decubitus ulcer on the coccyx presented to the hospital with a chief complaint of seizure episode.? 1. Seizure:Neuro recommends Keppra, holding next dose today d/t bradycardia if HR better tomorrow, will increase reduce dose to 250 , bid as it maybe causing bradycardia 2.Bradycardia--sinus, assymptomatic, possbily d/t? keppra -dose changed to 250 mg bid moniter on tele 3.UTI: Continue ceftriaxone day2.? Patient has Walker catheter changed in the ER.? Follow up cultures. change to ceftin at dc 4.Indeterminate troponins: likely from seizure, on xareto, cardiology advises no intervention 5.decubitus ulcer:? on the coccyx-on wound VAC which was removed at the [place] [facility] prior to presentation.? 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 Rate controlled.? Continue home Xarelto 7.History of hypertension/hyperlipidemia: Continue home medications. 8.Diet:? Patient was on dysphagia pureed diet.? Will consult speech and swallow.? Aspiration precautions Code status: Full code.? Patient has molst form Quality Stroke Does the patient have a stroke diagnosis?: No VTE Prior VTE?: No VTE Risk Level:: Medical - moderate - high VTE Device Contraindication: Treatment Not Indicated VTE Drug Contraindication: N/A - Med Ordered
[2021-02-18] MEDS: Rivaroxaban 20 MG TABLET PO (16:52)
[2021-02-18] MEDS: levETIRAcetam 250 MG TABLET PO (16:54)
[2021-02-18] MEDS: Atorvastatin Calcium 80 MG TABLET PO (20:33)
[2021-02-18] MEDS: cefTRIAXone sodium 1 GM in 0.9 % Sodium Chloride 50 ML IV (20:33)
[2021-02-18] MEDS: Tamsulosin HCL 0.4 MG CAPSULE PO (20:33)
[2021-02-19] VITALS (7 sets, daily range): BP systolic 117–153; BP diastolic 64–88; PULSE 60–66; RESP 16–20; TEMP 36.3–37.2; O2SAT 98–99
[2021-02-19] MEDS: levETIRAcetam 250 MG TABLET PO ×2 (06:13→17:42)
[2021-02-19 08:51] LABS: Anion Gap 8 (12-20); Blood Urea Nitrogen 14 mg/dL (9-16); C Reactive Protein 1.08 mg/dL (< or = 0.50); Calcium 8.7 mg/dL (8.4-10.2); Carbon Dioxide 28 mmol/L (22-29); Chloride 115 mmol/L (96-108); Creatinine Clr Calc Pharmacy 83.3; Estimated Glomerular Filt Rate > 60; Glucose Random 115 mg/dL (60-115); Sodium 148 mmol/L (135-145)
[2021-02-19 09:13] LABS: Erythrocyte Sedimentation Rate 22 MM/HR (0-15)
[2021-02-19] MEDS: amLODIPine Besylate 5 MG TABLET PO (10:54)
[2021-02-19] MEDS: Losartan Potassium 50 MG TABLET 100 MG PO (10:55)
[2021-02-19] MEDS: Aspirin Enteric Coated 81 MG TABLET.DR PO (10:55)
[2021-02-19] MEDS: Calcium + Vitamin D 250 MG TABLET PO ×2 (10:55→21:28)
[2021-02-19 13:03] LABS: Magnesium 1.9 mg/dL (1.6-2.6)
[2021-02-19] MEDS: Potassium Chloride Packet 20 MEQ PACKET 40 MEQ PO (14:06)
[2021-02-19] MEDS: polyethylene glycoL 3350 17 GM POWD.PACK PO (14:06)
[2021-02-19] MEDS: Dextrose 5 % 1,000 ML 80 ML IVCONT (14:08)
[2021-02-19] MEDS: Potassium Chloride/H20 10 MEQ/100 ML PIGGYBACK 100 MEQ IV ×2 (14:08→15:21)
--- NOTE | 2021-02-19 14:28 | HO.PM.IMPN ---
Subjective Subjective Date of Service: 02/19/21 Interval History: f/u on seizure, comfortable, noted bradycardia -overbnight in 40-50 range Review of Systems non verbal Physical Exam Vital Signs: Vital Signs: Last Vital Signs Temp 97.9 F 02/19/21 07:34 Pulse 60 02/19/21 10:55 Resp 18 02/19/21 07:34 BP 117/64 02/19/21 10:55 Pulse Ox 98 02/19/21 07:34 BMI result Body Mass Index 25.8 General: Alert, no distress Resp:? CTA bilateral CVS: S1,S2,RRR GI: +BS, NT, no distention Skin: No rash, sacral decub Neuro:? motor grossly intact Psych: appropriate affect Objective Data Active Medications Acetaminophen (Acetaminophen 325 Mg Tablet) 650 mg PO Q4H PRN PRN Reason: fever/pain Amlodipine Besylate (Amlodipine Besylate 5 Mg Tablet) 5 mg PO DAILY [facility]; Protocol Last Admin: 02/19/21 10:54 Dose: 5 mg Documented by: JIM Aspirin (Aspirin Enteric Coated 81 Mg Tablet.Dr) 81 mg PO DAILY [facility] Last Admin: 02/19/21 10:55 Dose: 81 mg Documented by: JIM Atorvastatin Calcium (Atorvastatin Calcium 80 Mg Tablet) 80 mg PO BEDTIME [facility] Last Admin: 02/18/21 20:33 Dose: 80 mg Documented by: DAVID Bisacodyl (Bisacodyl 10 Mg Supp.Rect) 10 mg [place] DAILY PRN PRN Reason: Constipation Calcium Carbonate/Cholecalciferol (Calcium + Vitamin D 250 Mg Tablet) 250 mg PO BID [facility] Last Admin: 02/19/21 10:55 Dose: 250 mg Documented by: JIM Docusate Sodium (Docusate Sodium 100 Mg Capsule) 100 mg PO BID [facility] Last Admin: 02/19/21 14:09 Dose: Not Given Documented by: JIM Non-Admin Reason: unable to crush Ceftriaxone Sodium 1 gm/ (Sodium Chloride) 50 mls @ 100 mls/hr IV Q24H [facility] Last Infusion: 02/18/21 21:57 Dose: 0 mls/hr Documented by: DAVID Dextrose (D5w) 1,000 mls @ 80 mls/hr IVCONT .[id number] [facility] Last Admin: 02/19/21 14:08 Dose: 80 mls/hr Documented by: JIM Potassium Chloride () 10 meq in 100 mls @ 100 mls/hr IV Q1H [facility] Stop: 02/19/21 14:44 Last Admin: 02/19/21 14:08 Dose: 100 mls/hr Documented by: JIM Levetiracetam (Levetiracetam 250 Mg Tablet) 250 mg PO Q12H [facility] Last Admin: 02/19/21 06:13 Dose: 250 mg Documented by: TERESITA Lidocaine (Lidocaine 4 % Patch Adh..Patch) 1 patch TRANSDERMA DAILY [facility] Last Admin: 02/19/21 10:55 Dose: 1 patch Documented by: JIM Lorazepam (Lorazepam 2 Mg/Ml Vial) 1 mg IVPUSH Q2H PRN PRN Reason: Seizures Losartan Potassium (Losartan Potassium 50 Mg Tablet) 100 mg PO DAILY [facility]; Protocol Last Admin: 02/19/21 10:55 Dose: 100 mg Documented by: JIM Magnesium Citrate (Magnesium Citrate 300 Ml Solution) 300 ml PO DAILY PRN PRN Reason: Constipation Magnesium Hydroxide (Milk Of Magnesia 30 Ml Oral.Susp) 30 ml PO DAILY PRN PRN Reason: Constipation Melatonin (Melatonin 3 Mg Tablet) 6 mg PO BEDTIME PRN PRN Reason: Insomnia Ondansetron HCl (Ondansetron Odt 4 Mg Tab.Rapdis) 4 mg TRANSLINGU Q6H PRN PRN Reason: nausea and vomiting Rivaroxaban (Rivaroxaban 20 Mg Tablet) 20 mg PO DAILY@1700 [facility] Last Admin: 02/18/21 16:52 Dose: 20 mg Documented by: DAVID Senna (Sennosides 8.6 Mg Tablet) 17.2 mg PO BEDTIME PRN PRN Reason: Constipation Sodium Chloride (0.9 % Sodium Chloride Flush 3 Ml Syringe) [facility] Last Admin: 02/19/21 10:56 Dose: Not Given Documented by: JIM Non-Admin Reason: IV Running Sodium Chloride (0.9 % Sodium Chloride Flush 3 Ml Syringe) [facility] Last Admin: 02/19/21 10:55 Dose: Not Given Documented by: HO.DOBROB Non-Admin Reason: IV Running Tamsulosin HCl (Tamsulosin Hcl 0.4 Mg Capsule) 0.4 mg PO BEDTIME [facility] Last Admin: 02/18/21 20:33 Dose: 0.4 mg Documented by: DAVID Labs CBC & Chem 7: 02/16/21 07:36 02/19/21 07:55 Labs: Laboratory Results - last 24 hr 02/19/21 02/19/21 07:55 07:55 ESR 22 H Anion Gap 8 L Estim Creat Clear Calc 83.3 Estimated GFR > 60 Random Glucose 115 Calcium 8.7 Magnesium 1.9 C-Reactive Protein 1.08 H Assessment and Plan (1) Acute UTI: Status: Acute (2) Pressure ulcer of coccygeal region, stage 4: Status: Acute Assessment and Plan: 65-year-old male with a past medical history of hypertension, hyperlipidemia, atrial fibrillation, GERD, history of recurrent UTIs, CVA with residual right-sided weakness, dysphagia, prior history of COVID-19, neurogenic bladder, chronic indwelling Walker, peripheral vascular disease, decubitus ulcer on the coccyx presented to the hospital with a chief complaint of seizure episode.? 1. Seizure:Neuro recommends Keppra, holding next dose today d/t bradycardia if HR better tomorrow, will increase reduce dose to 250 bid 2.Bradycardia--sinus, assymptomatic, possbily d/t? keppra -dose changed to 250 mg bid hr in 50's at night, 60-80 in daytime, tsh levels moniter on tele 3.UTI: Continue ceftriaxone day3.? Patient has Walker catheter changed in the ER.? Follow up cultures. change to ceftin at dc 4.Indeterminate troponins: likely from seizure, on xareto, cardiology advises no intervention 5.decubitus ulcer sacral/coccyx :? on the coccyx-on wound VAC which was removed at the assisted prior to presentation.? 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 ielus - Abdomen seems soft,but patient producing bowels, we will add laxatives and continue to monitor. 6.History of AFib:? Rate controlled.? Continue home Xarelto. 7.History of hypertension/hyperlipidemia: Continue home medications. 8.Diet:? Patient was on dysphagia pureed diet.? Will consult speech and swallow-Diet of PUREE (NDD1) and NECTAR THICK liquids? Aspiration precautions Code status: Full code.? Patient has molst form Quality Stroke Does the patient have a stroke diagnosis?: No VTE Prior VTE?: No VTE Risk Level:: Medical - moderate - high VTE Device Contraindication: Treatment Not Indicated VTE Drug Contraindication: N/A - Med Ordered
[2021-02-19 14:54] LABS: Alanine Aminotransferase 22 U/L (0-40); Albumin Level 2.7 g/dL (3.5-5.0); Alkaline Phosphatase 94 U/L (39-117); Aspartate Amino Transferase 12 U/L (5-37); Bilirubin Direct 0.2 mg/dL (0.0-0.5); Bilirubin Total 0.5 mg/dL (0.0-1.0); Total Protein 5.2 g/dL (6.5-8.0)
[2021-02-19 15:08] LABS: Thyroid Stimulating Hormone 1.92 uIU/mL (0.32-4.0)
--- NOTE | 2021-02-19 15:53 | MHC.CLN ---
F/U CONTINUES WITH STAGE IV PRESSURE AREA TO COCCYX. INTAKE VARIABLE, 0-100%. DIET=CARDIAC, PUREE WITH NECTAR THICK LIQUIDS. SUPPLEMENTS IN PLACE TO PROMOTE WOUND HEALING, ENSURE AND LAURA BID. CONTINUE TO FOLLOW SKIN AND INTAKE.
[2021-02-19] MEDS: Rivaroxaban 20 MG TABLET PO (17:42)
--- NOTE | 2021-02-19 17:48 | MHC.SL.SWA ---
Speech Pathologist Impression: Oral Phase Dysphagia Risk of Aspiration Due to: Neurological Condition Reduced Cognition Dysphasia Diet Status: Downgrade Liquid Consistency and Strategies for Safe Swallow: Liquid Intake Recommendation: Thin Liquid Intake Strategies: Small Sips No Straws Liquids by Teaspoon Only Solid Food Consistency: Dietary Recommendations: Pureed (NDD1) Additional Modifications to Solid Foods: Recommend continue PUREED (NDD1) solids and UPGRADE to THIN liquids by teaspoon, with pills CRUSHED in PUREE. Continue 1:1 assistance and aspiration precautions. *Patient had MBSS at [facility] 03/04/20, which showed no aspiration or penetration. He was recommended modified diet pureed solids (NDD1) and thin liquids, speech therapy through [facility] for dysphagia and functional communication. Please refer to full report. Oral Medication Intake: Crushed with Puree Compensatory Strategies and Precautions to be Taken for Safe Swallow: Sitting Upright (90 deg) No Straw Liquids from Spoon Small Bites and Sips Alternate Liquids/Solids Rate of Ingestion Change Oral Check Supervision While Eating and Drinking for Safe Swallow: Total Assistance Foods to Avoid: Mixed consistencies Swallowing Recommended Treatments: Compens. Strategy Educat. 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 Pharygeal swallow trigger is mildly delayed on some swallows, with Laryngeal transit on observation having greater ROM on L side, with good elevation, no clinical s/s aspiration on liquid/puree trials. Recommend modified diet of PUREE (NDD1) with THIN liquids, w/ meds CRUSHED IN PUREE. Pt will need full assist during meals, supervision w/ close monitor for aspiration signs. Pt to be D/C'd back to [facility]. Vehicle Fuel Systems Converter Clinican/Clinical Fellow: No Supervisory Statement: I have reviewed and agree with the student/clinical fellow's documentation: N/A Speech Language Pathologist: Danielle Avery M.A., CCC-TENSILE TESTER
[2021-02-19] MEDS: cefTRIAXone sodium 1 GM in 0.9 % Sodium Chloride 50 ML IV (21:21)
[2021-02-19] MEDS: Docusate Sodium 100 MG CAPSULE PO (21:28)
[2021-02-19] MEDS: Tamsulosin HCL 0.4 MG CAPSULE PO (21:28)
[2021-02-19] MEDS: Atorvastatin Calcium 80 MG TABLET PO (21:28)
[2021-02-20 04:00] VITALS: BP 141/73; PULSE 60; RESP 20; TEMP 36.4; O2SAT 99
[2021-02-20] MEDS: levETIRAcetam 250 MG TABLET PO ×2 (04:08→16:10)
[2021-02-20] MEDS: Dextrose 5 % 1,000 ML 80 ML IVCONT (04:08)
[2021-02-20 06:53] LABS: Anion Gap 8 (12-20); Blood Urea Nitrogen 9 mg/dL (9-16); Calcium 8.5 mg/dL (8.4-10.2); Carbon Dioxide 28 mmol/L (22-29); Chloride 106 mmol/L (96-108); Creatinine Clr Calc Pharmacy 91.4; Estimated Glomerular Filt Rate > 60; Glucose Random 132 mg/dL (60-115); Potassium 3.2 mmol/L (3.3-5.1); Sodium 139 mmol/L (135-145)
[2021-02-20 07:21] VITALS: BP 137/83; PULSE 64; RESP 16; TEMP 37.1; O2SAT 93
--- NOTE | 2021-02-20 08:16 | P.PNIM_ITS ---
Subjective Subjective Date of Service: 02/20/21 Interval History: hypokalemia , constipation Review of Systems no new event, patient nonverbal, lying comfortably. Physical Exam Vital Signs: Vital Signs: Last Vital Signs Temp 98.7 F 02/20/21 07:21 Pulse 64 02/20/21 07:21 Resp 16 02/20/21 07:21 BP 137/83 02/20/21 07:21 Pulse Ox 93 02/20/21 07:21 BMI result Body Mass Index 25.8 General: Alert, no distress Resp:? CTA bilateral CVS: S1,S2,RRR GI: +BS, NT, no distention Skin: No rash, sacral decub stage 4. Neuro:? motor grossly intact Psych: appropriate affect Objective Data Active Medications Acetaminophen (Acetaminophen 325 Mg Tablet) 650 mg PO Q4H PRN PRN Reason: fever/pain Amlodipine Besylate (Amlodipine Besylate 5 Mg Tablet) 5 mg PO DAILY [facility]; Protocol Last Admin: 02/19/21 10:54 Dose: 5 mg Documented by: JIM Aspirin (Aspirin Enteric Coated 81 Mg Tablet.Dr) 81 mg PO DAILY [facility] Last Admin: 02/19/21 10:55 Dose: 81 mg Documented by: JIM Atorvastatin Calcium (Atorvastatin Calcium 80 Mg Tablet) 80 mg PO BEDTIME [facility] Last Admin: 02/19/21 21:28 Dose: 80 mg Documented by: CAROLINE Bisacodyl (Bisacodyl 10 Mg Supp.Rect) 10 mg CO DAILY PRN PRN Reason: Constipation Calcium Carbonate/Cholecalciferol (Calcium + Vitamin D 250 Mg Tablet) 250 mg PO BID [facility] Last Admin: 02/19/21 21:28 Dose: 250 mg Documented by: CAROLINE Docusate Sodium (Docusate Sodium 100 Mg Capsule) 100 mg PO BID [facility] Last Admin: 02/19/21 21:28 Dose: 100 mg Documented by: CAROLINE Ceftriaxone Sodium 1 gm/ (Sodium Chloride) 50 mls @ 100 mls/hr IV Q24H [facility] Last Infusion: 02/19/21 23:21 Dose: 0 mls/hr Documented by: CAROLINE Dextrose (D5w) 1,000 mls @ 80 mls/hr IVCONT .[id number] [facility] Last Admin: 02/20/21 04:08 Dose: 80 mls/hr Documented by: CAROLINE Levetiracetam (Levetiracetam 250 Mg Tablet) 250 mg PO Q12H [facility] Last Admin: 02/20/21 04:08 Dose: 250 mg Documented by: CAROLINE Lidocaine (Lidocaine 4 % Patch Adh..Patch) 1 patch TRANSDERMA DAILY [facility] Last Admin: 02/19/21 15:17 Dose: Not Given Documented by: JIM Non-Admin Reason: Patient Refused Lorazepam (Lorazepam 2 Mg/Ml Vial) 1 mg IVPUSH Q2H PRN PRN Reason: Seizures Losartan Potassium (Losartan Potassium 50 Mg Tablet) 100 mg PO DAILY [facility]; Protocol Last Admin: 02/19/21 10:55 Dose: 100 mg Documented by: JIM Magnesium Citrate (Magnesium Citrate 300 Ml Solution) 300 ml PO DAILY PRN PRN Reason: Constipation Magnesium Hydroxide (Milk Of Magnesia 30 Ml Oral.Susp) 30 ml PO DAILY PRN PRN Reason: Constipation Melatonin (Melatonin 3 Mg Tablet) 6 mg PO BEDTIME PRN PRN Reason: Insomnia Ondansetron HCl (Ondansetron Odt 4 Mg Tab.Rapdis) 4 mg TRANSLINGU Q6H PRN PRN Reason: nausea and vomiting Rivaroxaban (Rivaroxaban 20 Mg Tablet) 20 mg PO DAILY@1700 [facility] Last Admin: 02/19/21 17:42 Dose: 20 mg Documented by: JIM Senna (Sennosides 8.6 Mg Tablet) 17.2 mg PO BEDTIME PRN PRN Reason: Constipation Sodium Chloride (0.9 % Sodium Chloride Flush 3 Ml Syringe) 3 ml IVFLUSH [facility] Last Admin: 02/19/21 21:29 Dose: Not Given Documented by: CAROLINE Non-Admin Reason: IV Running Sodium Chloride (0.9 % Sodium Chloride Flush 3 Ml Syringe) 3 ml [facility] Last Admin: 02/19/21 21:29 Dose: Not Given Documented by: CAROLINE Non-Admin Reason: IV Running Tamsulosin HCl (Tamsulosin Hcl 0.4 Mg Capsule) 0.4 mg PO BEDTIME [facility] Last Admin: 02/19/21 21:28 Dose: 0.4 mg Documented by: HO.NAUMOC Labs CBC & Chem 7: 02/16/21 07:36 02/20/21 06:15 Labs: Laboratory Results - last 24 hr 02/19/21 02/19/21 02/20/21 07:55 07:55 06:15 ESR 22 H Anion Gap 8 L 8 L Estim Creat Clear Calc 83.3 91.4 Estimated GFR > 60 > 60 Random Glucose 115 132 H Calcium 8.7 8.5 Magnesium 1.9 Total Bilirubin 0.5 Direct Bilirubin 0.2 AST 12 D ALT 22 Alkaline Phosphatase 94 D C-Reactive Protein 1.08 H Total Protein 5.2 L Albumin 2.7 L TSH 1.92 Assessment and Plan Assessment and Plan: 65-year-old male with a past medical history of hypertension, hyperlipidemia, atrial fibrillation, GERD, history of recurrent UTIs, CVA with residual right- sided weakness, dysphagia, prior history of COVID-19, neurogenic bladder, chronic indwelling Walker, peripheral vascular disease, decubitus ulcer on the coccyx presented to the hospital with a chief complaint of seizure episode.? 1. Seizure:Neuro recommends Keppra dose adjusted to 250? bid 2.Bradycardia--sinus, assymptomatic, possbily d/t? keppra -dose changed to 250 mg bid hr in 50's at night, 60-80 in daytime, tsh levels? moniter on tele 3.UTI: Continue ceftriaxone day4.? Patient has Walker catheter changed in the ER.? Follow up cultures. change to ceftin at dc 4.Indeterminate troponins: likely from seizure, on xareto, cardiology advises no intervention 5.decubitus ulcer sacral/coccyx :? on the coccyx-on wound VAC which was removed at the assisted prior to presentation.? 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 ielus -? Abdomen seems soft,but patient producing bowels, we will add laxatives and continue to monitor. 6.History of AFib:? Rate controlled.? Continue home Xarelto. 7.History of hypertension/hyperlipidemia: Continue home medications. 8.Diet:? Patient was on dysphagia pureed diet.? Will consult speech and swallow- Diet of PUREE (NDD1) and NECTAR THICK liquids? Aspiration precautions. 9.mild hypernatremia : seems probable Related to poor oral intake, seems to improved with hydration. Please encourage for p.o. hydration . 10. mild hypokalemia: Repleted. will add limited supply of potassium. please monitor electrolytes closely in rehab. 11.Ielus/abd: generalized gaseous distention of the large and small bowel without focal bowel wall thickening or pneumatosis seen patient is passing bm's , asymptomatic surgery recomended -no intervention continue bowel regimen . Quality Stroke Does the patient have a stroke diagnosis?: No VTE Prior VTE?: No VTE Risk Level:: Medical - moderate - high VTE Device Contraindication: Treatment Not Indicated VTE Drug Contraindication: N/A - Med Ordered
[2021-02-20] MEDS: Potassium Chloride Packet 20 MEQ PACKET 40 MEQ PO (09:00)
[2021-02-20 09:02] VITALS: BP 137/83; PULSE 64
[2021-02-20] MEDS: 0.9 % Sodium Chloride Flush 3 ML SYRINGE IVFLUSH ×2 (09:02→16:11)
[2021-02-20] MEDS: Losartan Potassium 50 MG TABLET 100 MG PO (09:02)
[2021-02-20] MEDS: Docusate Sodium 100 MG CAPSULE PO (09:03)
[2021-02-20] MEDS: Aspirin Enteric Coated 81 MG TABLET.DR PO (09:04)
[2021-02-20] MEDS: Calcium + Vitamin D 250 MG TABLET PO (09:04)
[2021-02-20 09:11] VITALS: BP 137/83; PULSE 64
[2021-02-20] MEDS: amLODIPine Besylate 5 MG TABLET PO (09:11)
--- NOTE | 2021-02-20 11:05 | P.CONGS_ITS ---
History of Present Illness Consult details Consult date: 02/20/21 <Brandy Chatman PA-C Last Filed: 02/20/21 11:15> Reason for consult: other (ileus) <BRANDY Gage Last Filed: 02/20/21 11:15> Requesting physician: Kvng Whittaker <BRANDY Gage Last Filed: 02/20/21 11:15> Narrative: 65-year-old male with a past medical history of hypertension, hyperlipidem ia, atrial fibrillation, GERD, recurrent UTIs, CVA with residual right-sided weakness, dysphagia, , neurogenic bladder with chronic indwelling Walker, PVD, decubitus ulcer on the coccyx who presented to the hospital following a seizure episode. He has remained inpatient for treatment for this. He had an AXR yesterday for pre MRI screening for his decubitus ulcer which showed generalized gaseous distention of the large and small bowel without focal bowel wall thickening or pneumatosis seen. There is moderate stool right colon. This morning, he denies abdominal pain. He is passing flatus and moving his bowels. He is tolerating a diet without N/V. <Brandy Chatman PA-C Last Filed: 02/20/21 11:15> Review of Systems Constitutional: Constitutional: Denies fever(s) <BRANDY Gage Last Filed: 02/20/21 11:15> Cardiovascular: Cardiovascular: Denies chest pain, Denies palpitations and Denies dyspnea <BRANDY Gage Last Filed: 02/20/21 11:15> Respiratory: Respiratory: Denies cough and Denies dyspnea <BRANDY Gage Last Filed: 02/20/21 11:15> Gastrointestinal: Gastrointestinal: Reports as per HPI <BRANDY Gage Filed: 02/20/21 11:15> Integumentary/Breasts: Skin/Breast: Denies rash <BRANDY Gage Last Filed: 02/20/21 11:15> Endocrine: Endocrine: Denies palpitations <BRANDY Gage Last Filed: 02/20/21 11:15> [facility] Past Medical History Medical History: Medical History COVID-19 High cholesterol History of CVA (cerebrovascular accident) HTN (hypertension) HTN (hypertension) Paroxysmal atrial fibrillation Stroke <Brandy Chatman PA-C - Last Filed: 02/20/21 11:15> Family History Family History: Family History Father No problems noted. Mother No problems noted. <Brandy Chatman PA-C - Last Filed: 02/20/21 11:15> Surgical History Surgical History: Surgical History No pertinent past surgical history <Brandy Chatman PA-C - Last Filed: 02/20/21 11:15> Social History Social History: Social History Household Members: Unknown / Unable to assess Housing: Senior Living Do you presently have visiting nurse or other home services: No Unable to assess alcohol history related to: Unable to respond Alcohol intake: unknown Patient Tobacco Use Status: Tobacco use Unknown Advance Directives Date on File: 02/14/20 service: No Current occupational status: disabled <Brandy Chatman PA-C - Last Filed: 02/20/21 11:15> Meds Allergies/Adverse reactions: Allergies Allergy/AdvReac Type Severity Reaction Status Date / Time No Known Allergies Allergy Verified 02/12/21 09:00 [No Known Allergies*] <Brandy Chatman PA-C - Last Filed: 02/20/21 11:15> Active Medications: Current Medications Acetaminophen (Acetaminophen 325 Mg Tablet) 650 mg PO Q4H PRN PRN Reason: fever/pain Amlodipine Besylate (Amlodipine Besylate 5 Mg Tablet) 5 mg PO DAILY [facility]; Protocol Last Admin: 02/20/21 09:11 Dose: 5 mg Documented by: Aspirin (Aspirin Enteric Coated 81 Mg Tablet.) 81 mg PO DAILY [facility] Last Admin: 02/20/21 09:04 Dose: 81 mg Documented by: Atorvastatin Calcium (Atorvastatin Calcium 80 Mg Tablet) 80 mg PO BEDTIME [facility] Last Admin: 02/19/21 21:28 Dose: 80 mg Documented by: Bisacodyl (Bisacodyl 10 Mg Supp.Rect) 10 mg MD DAILY PRN PRN Reason: Constipation Calcium Carbonate/Cholecalciferol (Calcium + Vitamin D 250 Mg Tablet) 250 mg PO BID [facility] Last Admin: 02/20/21 09:04 Dose: 250 mg Documented by: Docusate Sodium (Docusate Sodium 100 Mg Capsule) 100 mg PO BID [facility] Last Admin: 02/20/21 09:03 Dose: 100 mg Documented by: Ceftriaxone Sodium 1 gm/ (Sodium Chloride) 50 mls @ 100 mls/hr IV Q24H [facility] Last Infusion: 02/19/21 23:21 Dose: Infused Documented by: Dextrose (D5w) 1,000 mls @ 80 mls/hr IVCONT .[id number] [facility] Last Admin: 02/20/21 04:08 Dose: 80 mls/hr Documented by: Levetiracetam (Levetiracetam 250 Mg Tablet) 250 mg PO Q12H [facility] Last Admin: 02/20/21 04:08 Dose: 250 mg Documented by: Lidocaine (Lidocaine 4 % Patch Adh..Patch) 1 patch TRANSDERMA DAILY [facility] Last Admin: 02/20/21 09:07 Dose: Not Given Documented by: Lorazepam (Lorazepam 2 Mg/Ml Vial) 1 mg IVPUSH Q2H PRN PRN Reason: Seizures Losartan Potassium (Losartan Potassium 50 Mg Tablet) 100 mg PO DAILY [facility]; Protocol Last Admin: 02/20/21 09:02 Dose: 100 mg Documented by: Magnesium Citrate (Magnesium Citrate 300 Ml Solution) 300 ml PO DAILY PRN PRN Reason: Constipation Magnesium Hydroxide (Milk Of Magnesia 30 Ml Oral.Susp) 30 ml PO DAILY PRN PRN Reason: Constipation Melatonin (Melatonin 3 Mg Tablet) 6 mg PO BEDTIME PRN PRN Reason: Insomnia Ondansetron HCl (Ondansetron Odt 4 Mg Tab.Rapdis) 4 mg TRANSLINGU Q6H PRN PRN Reason: nausea and vomiting Rivaroxaban (Rivaroxaban 20 Mg Tablet) 20 mg PO DAILY@1700 [facility] Last Admin: 02/19/21 17:42 Dose: 20 mg Documented by: Senna (Sennosides 8.6 Mg Tablet) 17.2 mg PO BEDTIME PRN PRN Reason: Constipation Sodium Chloride (0.9 % Sodium Chloride Flush 3 Ml Syringe) 3 ml IVFLUSH [facility] Last Admin: 02/20/21 09:02 Dose: Not Given Documented by: Sodium Chloride (0.9 % Sodium Chloride Flush 3 Ml Syringe) 3 ml IVFLUSH [facility] Last Admin: 02/20/21 09:02 Dose: 3 ml Documented by: Tamsulosin HCl (Tamsulosin Hcl 0.4 Mg Capsule) 0.4 mg PO BEDTIME [facility] Last Admin: 02/19/21 21:28 Dose: 0.4 mg Documented by: <Brandy Chatman PA-C - Last Filed: 02/20/21 11:15> Home medications: Home Medications Medication Instructions Recorded Confirmed Last Taken Type atorvastatin 80 mg tablet 80 mg PO BEDTIME 04/25/20 02/16/21 Unknown History amlodipine 5 mg tablet 5 mg PO DAILY 06/20/20 02/16/21 Unknown History acetaminophen 325 mg tablet 650 mg PO Q4H PRN 02/16/21 02/16/21 Unknown History bisacodyl 10 mg rectal suppository 10 mg MD DAILY PRN 02/16/21 02/16/21 Unknown History calcium carbonate 600 mg-vitamin 1 tab PO BID 02/16/21 02/16/21 Unknown History D3 5 mcg (200 unit) tablet lidocaine 5 % topical patch 1 patch TOPICAL DAILY 02/16/21 02/16/21 Unknown History magnesium citrate (Citrate of 300 ml PO DAILY PRN 02/16/21 02/16/21 Unknown History Magnesia) magnesium hydroxide 400 mg/5 mL 30 ml PO DAILY PRN 02/16/21 02/16/21 Unknown History oral suspension (Milk of Magnesia) oxycodone 5 mg tablet 5 mg PO Q6H PRN 02/16/21 02/16/21 Unknown History rivaroxaban 20 mg tablet 20 mg PO QPM 02/16/21 02/16/21 Unknown History <Brandy Chatman PA-C - Last Filed: 02/20/21 11:15> Physical Exam Vital Signs: Vital Signs: Last Vital Signs Temp 98.7 F 02/20/21 07:21 Pulse 64 02/20/21 09:11 Resp 16 02/20/21 07:21 BP 137/83 02/20/21 09:11 Pulse Ox 93 02/20/21 07:21 BMI result Body Mass Index 25.8 <Brandy Peñalozabodeau YONASDb - Last Filed: 02/20/21 11:15> Const: General: comfortable and no acute distress <Brandy Peñalozajorge luis JUAREZ Leung Last Filed: 02/20/21 11:15> Resp: Effort & Inspection: normal respiratory effort <Brandy PeñalozaBRANDY kang - Last Filed: 02/20/21 11:15> GI: Inspection: Yes normal to inspection and Yes distended (mild) <Brandy PeñalozaYONAS kangDb Leung Last Filed: 02/20/21 11:15> Palpation (GI): Soft to palpation, nontender and no guarding <Brandy CompaBRANDY kang Madhu Last Filed: 02/20/21 11:15> Skin: Other: warm and dry <Brandy CompaBRANDY kang - Last Filed: 02/20/21 11:15> Results Labs Result diagrams: : 02/16/21 07:36 02/20/21 06:15 <Brandy Peñalozabodeau BRANDY Leung Last Filed: 02/20/21 11:15> Labs: Abnormal lab results 02/19/21 02/20/21 Range/Units 07:55 06:15 Potassium 3.2 L (3.3-5.1) mmol/L Anion Gap 8 L (12-20) Random Glucose 132 H (60-115) mg/dL Total Protein 5.2 L (6.5-8.0) g/dL Albumin 2.7 L (3.5-5.0) g/dL BMP 02/20/21 06:15 Sodium 139 Potassium 3.2 L Chloride 106 Carbon Dioxide 28 BUN 9 Creatinine 0.82 Calcium 8.5 Liver Function 02/19/21 Range/Units 07:55 Total Bilirubin 0.5 (0.0-1.0) mg/dL Direct Bilirubin 0.2 (0.0-0.5) mg/dL AST 12 D (5-37) U/L ALT 22 (0-40) U/L Alkaline Phosphatase 94 D (39-117) U/L Albumin 2.7 L (3.5-5.0) g/dL Urine 02/15/21 Range/Units 22:00 Urine Color RED Urine Appearance TURBID Urine pH 8.5 H (5.0-8.0) Ur Specific [place] 1.010 (1.005-1.025) Urine Protein 3+ H (NEG-TRACE) MG/DL Urine Glucose (UA) 250 H (NEG) MG/DL All other labs normal. <Brandy Chatman PA-C - Last Filed: 02/20/21 11:15> Assessment and Plan (1) Seizure: Status: Acute <Brandy Chatman PA-C - Last Filed: 02/20/21 11:15> 65 year old male with multiple medical problems admitted for seizure episodes. Surgery consulted for incidental finding of ileus on AXR ordered for pre-screening for MRI. The patient has a very benign abd exam and is mildly distended but very soft and nontender. He is tolerating his diet and passing flatus and passed a large amount while in room. He has been having daily bowel movements. No surgical intervention needed. Can continue supportive care and gentle bowel regimen. <Brandy Chatman PA-C - Last Filed: 02/20/21 11:15> 65 year old male with multiple medical problems admitted for seizure episodes. Surgery consulted for incidental finding of ileus on AXR ordered for pre-screening for MRI. The patient has a very benign abd exam and is mildly distended but very soft and nontender. He is tolerating his diet and passing flatus and passed a large amount while in room. He has been having daily bowel movements. No surgical intervention needed. Can continue supportive care and gentle bowel regimen. Patient examined and images reviewed. Symptomatic Darrin the patient does not have a bowel obstruction or ileus and is having bowel movements as noted above. Agree with the above assessment and plan. No surgical intervention anticipated. <Kain Christina MD - Last Filed: 02/20/21 12:49> Procedures Date of Service Date of Service: 02/20/21 <Brandy Chatman PA-C - Last Filed: 02/20/21 11:15>
[2021-02-20 11:09] VITALS: BP 153/83; PULSE 58; RESP 16; TEMP 36.7; O2SAT 98
--- NOTE | 2021-02-20 12:03 | P.DS_ITS ---
DS: Providers Provider Date of Service: 02/20/21 Date of admission: 02/16/21 06:06 Primary care physician: Lorraine Wiley MD Consults: 02/15/21 23:14 Consult to Neurology Routine Consulting Provider: [facility] Reason for consultation: seizure 02/16/21 04:24 Consult to Cardiology Routine Consulting Provider: Johnathan Garcia Reason for consultation: elevated troponins 02/19/21 18:51 Consult to General Surgery Routine Consulting Provider: [facility] General Surgeons Reason for consultation: probable Ielus , no urgent consult Has provider been notified: No DS: Diagnosis Discharge Diagnosis (1) Seizure: Status: Acute DS: Summary Hospital Course Hospital Course: Chief Complaint: seizure 65-year-old male with a past medical history of hypertension, hyperlipidemia, atrial fibrillation, GERD, history of recurrent UTIs, CVA with residual right- sided weakness, dysphagia, prior history of COVID-19, neurogenic bladder, chronic indwelling Walker, peripheral vascular disease, decubitus ulcer on the coccyx presented to the hospital with a chief complaint of seizure episode.? I spoke to the penitentiary staff at the [facility] in [place]; RN I spoke to mentioned that the RN who was taking care of the patient and was told that when she went in to check on the patient patient was shaking in his bed; appears to be seizure; lasted for 7 minutes; otherwise no inflammation of tongue biting, urinary incontinence; Family was notified. Patient is a poor historian; Denies any chest pain palpitations lightheadedness or dizziness.? Review of all other systems is limited. ER course:? For ER team patient noted to be alert and awake; urinalysis was abnormal consistent with UTI.? Given ceftriaxone.? Patient has a Walker catheter in place which was replaced in the ER on presentation. Hospital course: Seizure:Neuro recommends Keppra 250 bid and no further testing indicated UTI: Treated with ceftriaxone and changing to Ceftin at discharge. blood culture negative at 48 hours, urine culture - mixed logan. Indeterminate troponins:thought to be likely from seizure, on xareto, cardiology advises no intervention Patient had mild bradycardia- probably related to Keppra so which patient was taking initially 500 mg b.i.d. than adjusted to 250 b.i.d. patient's bradycardia is improving and patient is asymptomatic. tsh normal. Further management and workup outpatient. decubitus ulcer:? on the coccyx-on wound VAC which was removed at the penitentiary prior to presentation.Mri neg for oseto,? Pressure ulcer care for RN, He can then resume VAC use.? Continue with protein supplementation and offloading. follow up with wound care. History of AFib:? Rate controlled.? Continue home Xarelto History of hypertension/hyperlipidemia: Continue home medications. Diet:? Speech recommend Puree with [place] thick mild hypernatremia : seems probable Related to poor oral intake, seems to improved with hydration. Please encourage for p.o. hydration . monitor electrolytes in rehab. mild hypokalemia: Repleted. will add limited supply of potassium. please monitor electrolytes closely in rehab. Ielus/abd: generalized gaseous distention of the large and small bowel without focal bowel wall thickening or pneumatosis seen patient is passing bm's , asymptomatic surgery recomended -no intervention continue bowel regimen . Dischargeing back to rehab. explained above in detail daughter in law -Miss Marcelo: she understand above management in detail and in agreement with the above plan, time spent 50minute. Time Spent with Patient Time attestation: Total time spent providing and/or coordinating discharge services: Discharge coordination time: Greater than 30 minutes Quality: Stroke Does the patient have a stroke diagnosis?: No Physical Exam Vital Signs: Vital Signs: Last Vital Signs Temp 98.0 F 02/20/21 11:09 Pulse 58 02/20/21 11:09 Resp 16 02/20/21 11:09 BP 153/83 H 02/20/21 11:09 Pulse Ox 98 02/20/21 11:09 BMI result Body Mass Index 25.8 General: Alert, no distress Resp:? CTA bilateral CVS: S1,S2,RRR GI: +BS, NT, no distention Skin: No rash, coccyx decubtii stage 4. Neuro:? motor grossly intact Psych: appropriate affect ? DS: Data Data Completed and Pending Labs on day of discharge: Laboratory Results - last 24 hr 02/19/21 02/20/21 07:55 06:15 Sodium 139 Potassium 3.2 L Chloride 106 Carbon Dioxide 28 Anion Gap 8 L BUN 9 Creatinine 0.82 Estim Creat Clear Calc 91.4 Estimated GFR > 60 Random Glucose 132 H Calcium 8.5 Magnesium 1.9 Total Bilirubin 0.5 Direct Bilirubin 0.2 AST 12 D ALT 22 Alkaline Phosphatase 94 D Total Protein 5.2 L Albumin 2.7 L TSH 1.92 Preliminary micro results at discharge 02/15/21 22:01 Blood Culture - Preliminary Blood - Venous No growth after 48 hours. 02/15/21 21:16 Blood Culture - Preliminary Blood - Venous No growth after 48 hours. Additional Comments Additional comments: 02/19/21: Mri coccyx area: Mild reactive changes lower coccyx adjacent to decubitus ulcer. No soft tissue abscess or osteomyelitis at this time. Images degraded by motion artifact. ? 2. Gaseous distention large and small bowel consistent with plain films earlier today. Mild thickening sigmoid. Recommend correlation with clinical impression. 02/19Kub: XR/XR KUB IMPRESSION: Generalized ileus. Moderate stool right colon. Discharge Plan Discharge Anticipated Discharge Date/Time: 02/17/21 10:44 Patient Disposition: Xfer SNF Discharge Diagnosis: Seizure, UTI Referrals: [facility] [Other] - 1 Week [facility] [Outside] - 1 Week Lorraine Wiley MD [Primary Care Provider] - 1 Week Discharge Medications: New levetiracetam [Keppra] 250 mg tablet 250 mg PO BID Qty: 60 RF: 0 cefuroxime axetil 250 mg tablet 250 mg PO BID 7 Days Qty: 14 RF: 0 potassium citrate 10 mEq (1,080 mg) tablet extended release 10 meq PO DAILY Qty: 4 RF: 0 Continued (DME) wet wipes See Rx Instructions .ROUTE .MEDSUPPLY Qty: 5 RF: 3 (DME) miscellaneous medical supply [facility] See Rx Instructions .ROUTE .MEDSUPPLY Qty: 1 RF: 0 (DME) miscellaneous medical supply [facility] See Rx Instructions .ROUTE .MEDSUPPLY Qty: 1 RF: 0 (DME) miscellaneous medical supply Misc See Rx Instructions .ROUTE .MEDSUPPLY Qty: 1 RF: 0 (DME) miscellaneous medical supply [facility] See Rx Instructions .ROUTE .MEDSUPPLY Qty: 1 RF: 0 ondansetron 4 mg tablet,disintegrating 4 mg PO Q6-8H PRN (Reason: nausea and vomiting) Qty: 10 RF: 0 atorvastatin 80 mg tablet 80 mg PO BEDTIME RF: 0 lidocaine 5 % adhesive patch,medicated 1 patch topical DAILY RF: 0 oxycodone 5 mg tablet 5 mg PO Q6H PRN (Reason: Pain) RF: 0 acetaminophen 325 mg Tablet 650 mg PO Q4H PRN (Reason: fever/pain) RF: 0 calcium carbonate-vitamin D3 600 mg-5 mcg (200 unit) Tablet 1 tab PO BID RF: 0 magnesium hydroxide [Milk of Magnesia] 400 mg/5 mL Suspension 30 ml PO DAILY PRN (Reason: Constipation) RF: 0 bisacodyl 10 mg Suppository 10 mg IA DAILY PRN (Reason: Constipation) RF: 0 magnesium citrate [Citrate of Magnesia] Solution 300 ml PO DAILY PRN (Reason: Constipation) RF: 0 rivaroxaban 20 mg Tablet 20 mg PO QPM RF: 0 aspirin [Adult Low Dose Aspirin] 81 mg tablet,delayed release (DR/EC) 81 mg PO DAILY 90 Days Qty: 90 RF: 4 losartan 100 mg tablet 100 mg PO DAILY 90 Days Qty: 90 RF: 4 gabapentin 300 mg capsule 300 mg PO BEDTIME 30 Days Qty: 30 RF: 0 (DME) miscellaneous medical supply Misc See Rx Instructions .ROUTE .MEDSUPPLY Qty: 1 RF: 0 tamsulosin 0.4 mg capsule 0.4 mg PO BEDTIME 90 Days Qty: 90 RF: 1 amlodipine 5 mg tablet 5 mg PO DAILY RF: 0 Discharge Orders: Discharge Order (Routine); Ordered 02/20/21 Ordered By: Scout Camara Diet: advance to usual diet Activity on Discharge: As tolerated Stand Alone Forms: Patient Portal Discharge page Care Plan Goals: prevent reshospitalization and seizure Health Concerns: seizure, UTI Plan of Treatment: Take all your medication as directed and follow up with your Doctor in a week Take Keppra for seizure take ceftin for UTI Assessment: as above
--- NOTE | 2021-02-20 14:22 | MHC.CM.PN ---
Patient has been medically cleared for dc to return to LTC at [facility] today. Patient will return to [facility] today at 5PM, via [facility].KIEL spoke with /Fozia at [phone] and addressed IMM with her (original to be mailed certified letter to Fozia and a copy placed on the chart). Per Fozia's request, KIEL has requested that MD phone Fozia to address her question regarding a CT scheduled for tomorrow at 2PM.
[2021-02-20 14:35] LABS: COVID-19 Test Negative (Negative); IDNOW Serial# 9DD0AD1C
[2021-02-20 15:53] VITALS: BP 131/79; PULSE 63; RESP 16; TEMP 37.3; O2SAT 98
[2021-02-20] MEDS: Rivaroxaban 20 MG TABLET PO (16:10)
== END 2021-02-20 17:44 | disposition skilled nursing facility (03) | DRG 698 ==
LOC: HO.ED 23:24 → HO.EDOVER 02-16 06:08 → HO.IMC 02-16 15:43
PROVIDERS: Internal Medicine; Admitting Provider Hospitalist; Emergency Provider Emergency Medicine; PCP Internal Medicine; Visit Provider Internal Medicine
DX: T83.511A Infection and inflammatory reaction due to indwelling urethral catheter, initial encounter (principal); L89.154 Pressure ulcer of sacral region, stage 4; I69.951 Hemiplegia and hemiparesis following unspecified cerebrovascular disease affecting right dominant side; I69.920 Aphasia following unspecified cerebrovascular disease; N39.0 Urinary tract infection, site not specified; I10 Essential (primary) hypertension; R00.1 Bradycardia, unspecified; I48.91 Unspecified atrial fibrillation; E78.5 Hyperlipidemia, unspecified; Z87.440 Personal history of urinary (tract) infections; Z20.822 Contact with and (suspected) exposure to COVID-19; Z79.01 Long term (current) use of anticoagulants; Z79.899 Other long term (current) drug therapy
CPT/HCPCS: 0241U; 36415; 70450; 71045; 72197; 74018; 80048; 80076; 81001; 83605; 83690; 83735; 83880; 84443; 84484; 85025; 85652; 86140; 87040; 87086; 87635; 92610; 93005; 93306; 96361; 96365; 99285; A9585; J0696

== ENCOUNTER → 2021-04-15 10:56 | Outpatient (BNVA) | payer MEDICARE, SELFPAY | PROVIDERS: Visit Provider Internal Medicine | DX: L89.154 Pressure ulcer of sacral region, stage 4 (principal); N39.0 Urinary tract infection, site not specified; A04.72 Enterocolitis due to Clostridium difficile, not specified as recurrent | CPT/HCPCS: 99212 ==

== ENCOUNTER → 2021-04-23 13:46 | Outpatient (BNVA) | payer MEDICARE, SELFPAY | PROVIDERS: PCP Family Medicine; Visit Provider Urology | DX: Z13.89 Encounter for screening for other disorder (principal) | CPT/HCPCS: Q3014 ==

== ENCOUNTER → 2021-06-23 11:28 | Day surgery (SDC) | payer OTHER, SELFPAY ==
[2021-06-18 08:24] VITALS: BMI 22.1
--- NOTE | 2021-06-20 11:05 | P.CONAN_ITS ---
HPI - Anesthesia Eval Consult details Narrative: cx'd DOS d/t hypotension. Transferred to ED and ultimately admitted 65yo M for Cystoscopy superpubic tube placement Xarelto for afib SNF resident. HCP for consent CVA, hemiparesis, nonverbal CX'd 02/2021 d/t COVID PMFSH Active Problems Active Problems: All Active Problems (Updated 04/23/21 @ 00:02 by Simran Simmons) UTI (urinary tract infection) (Acute) C. 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 (Acute) Dysarthria due to acute cerebellar cerebrovascular accident (CVA) (Acute) Essential hypertension (Acute) Dyslipidemia (Acute) Acute renal failure superimposed on stage 2 chronic kidney disease (Acute) Urine incontinence (Acute) Stage I pressure ulcer of buttock (Acute) Dysphagia (Acute) Wheelchair bound (Acute) Stage II pressure ulcer of buttock (Acute) Right arm pain (Acute) Right leg pain (Acute) COVID-19 (Acute) HTN (hypertension) (Acute) Hypernatremia (Acute) COVID-19 (Acute) VI (acute kidney injury) (Acute) Pressure ulcer of sacral region, stage 2 (Acute) Decubitus ulcer of both heels, stage 1 (Acute) Past Medical History Medical History (Updated 06/29/21 @ 12:54 by Favian Ruiz MD) C. difficile diarrhea Cerebrovascular accident (CVA) involving left cerebral hemisphere COVID-19 Hemiplegia of right dominant side due to acute cerebrovascular disease High cholesterol History of CVA (cerebrovascular accident) HTN (hypertension) HTN (hypertension) Paroxysmal atrial fibrillation Septic shock Stroke UTI (urinary tract infection) UTI (urinary tract infection) due to urinary indwelling Walker catheter Family History Family History Father No problems noted. Mother No problems noted. Surgical History Surgical History No pertinent past surgical history Social History Social History Household Members: None Household Members Other:: resides at [facility] [place] ([phone]) Housing: Long Term Are you a primary child care center assistant director to a significant other at home: No Do you presently have visiting nurse or other home services: No Unable to assess alcohol history related to: Unable to respond Alcohol intake: unknown Patient Tobacco Use Status: Tobacco use Unknown Advance Directives Date on File: 02/14/20 service: No Current occupational status: disabled Meds Allergies Allergy/AdvReac Type Severity Reaction Status Date / Time No Known Allergies Allergy Verified 04/23/21 13:47 [No Known Allergies*] Home Medications Medication Instructions Recorded Confirmed Last Taken Type atorvastatin 80 mg tablet 80 mg PO BEDTIME 04/25/20 06/23/21 Unknown History amlodipine 5 mg tablet 5 mg PO DAILY 06/20/20 06/23/21 06/23/21 History acetaminophen 325 mg tablet 650 mg PO Q4H PRN 02/16/21 06/23/21 Unknown History bisacodyl 10 mg rectal suppository 10 mg ID DAILY PRN 02/16/21 06/23/21 Unknown History calcium carbonate 600 mg-vitamin 1 tab PO BID 02/16/21 06/23/21 Unknown History D3 5 mcg (200 unit) tablet lidocaine 5 % topical patch 1 patch TOPICAL DAILY 02/16/21 06/23/21 Unknown History magnesium citrate (Citrate of 300 ml PO DAILY PRN 02/16/21 06/23/21 Unknown History Magnesia) magnesium hydroxide 400 mg/5 mL 30 ml PO DAILY PRN 02/16/21 06/23/21 Unknown History oral suspension (Milk of Magnesia) levetiracetam 100 mg/mL oral 2.5 ml PO BID 02/26/21 06/23/21 06/23/21 History solution naloxone 4 mg/actuation nasal spray 4 mg INTRANASAL ONCE PRN 02/26/21 06/23/21 Unknown History potassium chloride 20 mEq 1 tab PO DAILY 06/23/21 06/23/21 Unknown History tablet,extended release(part/cryst) vancomycin 25 mg/mL oral solution 125 mg PO TID 06/23/21 06/23/21 Unknown History (Firvanq) Exam Exam Date and Time: June 20, 2021 1105 Height,Weight and Vital Signs: Height 6 ft Weight 73.936 kg Pertinent Lab Results Pertinent Lab Results: Laboratory Tests 02/16/21 02/20/21 07:36 06:15 WBC 9.7 Hgb 10.3 L Hct 30.9 L Plt Count 210 D Sodium 139 Potassium 3.2 L Chloride 106 Carbon Dioxide 28 BUN 9 Creatinine 0.82 Narrative Narrative: ECHO 01/2021 Conclusions: - The left ventricular systolic function is normal.? The ? calculated ejection fraction is 63% by biplane method. ? - No obvious valvular pathology seen on this study.?? EKG 01/2021 Vent. Rate : 094 BPM ? ? Atrial Rate : 094 BPM ?? P-R Int : 166 ms? QRS Dur : 090 ms ? ? QT Int : 338 ms ? ? ? P-R-T Axes : 064 064 051 degrees ?? QTc Int : 422 ms ? Normal sinus rhythm Normal ECG When compared with ECG of 24-JUL-2020 19:52, Premature supraventricular complexes are no longer Present Assessment and Plan Assessment Anesthesia Assessment: Chart Reviewed
--- NOTE | 2021-06-23 12:06 | PC.NURSE ---
patients brief soiled. stool. anshul care performed. repositioned two assist. coccyx dressing intact from facility. right sided hemiparesis. finley cath intact. redness noted to head of penis. patient scratching at penile area.
[2021-06-23 12:08] VITALS: BP 82/54; PULSE 110; RESP 16; TEMP 36.7; O2SAT 96
[2021-06-23] MEDS: Lactated Ringers 1,000 ML 100 ML IVCONT (12:32)
--- NOTE | 2021-06-23 12:32 | PC.NURSE ---
anti byb edside aware of patients blood pressure. bolus 125ml per md . alert and awake.
[2021-06-23 12:33] VITALS: BP 87/56; PULSE 87; RESP 16; O2SAT 95
[2021-06-23 12:34] VITALS: BP 86/53; PULSE 93; RESP 16; O2SAT 96
[2021-06-23 13:20] VITALS: BP 83/51; PULSE 77; RESP 16; O2SAT 97
--- NOTE | 2021-06-23 14:22 | PC.NURSE ---
135 patient was transferred to ed for hypotention. md mcgrath gave doc to doc report and i spoke to Cha Parks rn for transfer report. upon arrival in [facility] patient was soiled of loose seedy yellow stool. medium amount. only once per arrival. repositioned two assist. after the 1000cc bolus of LR per anesthesia no urinary output was in finley and upon arrival the finley catheter was dry. patient felt warm to touch and had an oral temp of 98.1. heart rate was sinus tach upon arrival and when at rest he was nsr but hypotension remained.patient is poor historian. family by bedside.
== END ==
PROVIDERS: PCP Internal Medicine; Visit Provider Urology
DX: N31.9 Neuromuscular dysfunction of bladder, unspecified (principal); Z53.8 Procedure and treatment not carried out for other reasons; I95.9 Hypotension, unspecified; R00.0 Tachycardia, unspecified; I10 Essential (primary) hypertension; I48.0 Paroxysmal atrial fibrillation; E78.00 Pure hypercholesterolemia, unspecified; I69.351 Hemiplegia and hemiparesis following cerebral infarction affecting right dominant side; Z79.899 Other long term (current) drug therapy; Z86.19 Personal history of other infectious and parasitic diseases; Z86.16 Personal history of COVID-19

== ENCOUNTER 2021-06-23 14:07 | Inpatient (IN) | payer OTHER, SELFPAY ==
[2021-06-23] VITALS (7 sets, daily range): BP systolic 76–110; BP diastolic 39–72; PULSE 84–106; RESP 12–18; TEMP 37.1–37.6; O2SAT 95–99; BMI 24.1
--- NOTE | ~2021-06-23 | XR_ITS ---
EXAMINATION: XR CHEST CLINICAL INFORMATION: Low BP. COMPARISON: Chest radiograph done on 02/15/2021. TECHNIQUE: Frontal view of the chest was obtained. FINDINGS: Asymmetric low lung volume is present within the right hemithorax, unchanged since 02/15/2021. Both lung martin appear clear, unchanged. The cardiac mediastinal silhouette is within normal limit. No evidence of any pleural effusion present. The visualized upper abdomen shows nonspecific prominent bowel loops, similar to prior study dated 02/15/2021. XR/XR chest 1V IMPRESSION: No radiographic evidence of acute cardiopulmonary disease, unchanged since 02/15/2021.
--- NOTE | ~2021-06-23 | CT_ITS ---
EXAMINATION: CT ABDOMEN AND PELVIS WITHOUT CONTRAST CLINICAL INFORMATION: Bacteremia COMPARISON: KUB 02/19/2021 and abdominal ultrasound 04/27/2020 TECHNIQUE: Multidetector volumetric imaging was performed from the superior aspect of the liver through the pubic symphysis. Sagittal and coronal reformatted images were obtained on the technologist's workstation. This CT examination was performed using dose optimization techniques as appropriate, variously including the following: *Automated exposure control *Adjustment of mA and/or kV according to patient size (this includes techniques or standardized protocols for targeted exams where dose is matched to indication/reason for exam; i.e. extremities or head) *Use of iterative reconstruction technique DLP: 725 mGy-cm FINDINGS: Visualized lung bases demonstrate mild dependent atelectasis with trace posterior pleural thickening on the right. Coronary artery calcifications are noted. The liver is normal in size but demonstrates diffusely decreased attenuation. The gallbladder is normal in appearance. Spleen is enlarged measuring approximately 15 cm in maximum craniocaudal dimension. The pancreas and adrenal glands are unremarkable. Symmetrically sized kidneys. There is mild fullness of both collecting systems without overt hydronephrosis. There are a few tiny nonobstructing calculi within the left kidney, largest measuring approximately 4 mm. Normal caliber loops of small bowel. There is a moderate to severe stool burden throughout the majority of the colon, particularly the proximal colon. There is circumferential mucosal thickening involving the majority of the sigmoid colon and rectum. Normal caliber abdominal aorta which demonstrates mild to moderate atherosclerotic disease. No retroperitoneal lymphadenopathy. The bladder is decompressed around a Walker catheter and therefore not accurately evaluated. There does however appear to be diffuse bladder wall thickening. The prostate gland is not enlarged. Tiny fat-containing inguinal hernias are noted. No inguinal lymphadenopathy. Diffuse osteopenia. Moderate degenerative changes of the spine. CT/CT abdomen pelvis wo con IMPRESSION: -Moderate to severe colonic stool burden suggesting constipation. -The rectum mucosal thickening involving the majority of the sigmoid colon and rectum. Colitis and proctitis are within the differential. -Tiny nonobstructing left renal calculi. -Suspected diffuse bladder wall thickening, poorly evaluated. -Diffusely decreased liver attenuation suggesting hepatic steatosis. Correlation with liver enzymes recommended. -Splenomegaly. Fleischner guidelines were followed.
--- NOTE | 2021-06-23 14:15 | ECG_ITS ---
Test Reason : HYPOTENSIVE Blood Pressure : / mmHG Vent. Rate : 094 BPM Atrial Rate : 094 BPM P-R Int : 144 ms QRS Dur : 088 ms QT Int : 336 ms P-R-T Axes : 040 049 035 degrees QTc Int : 420 ms Normal sinus rhythm Normal ECG When compared to the previous EKG of No significant changes seen Referred By: Susy Salazar Electronically Signed By:BHAVIK GARIBAY MD
[2021-06-23] MEDS: 0.9 % Sodium Chloride 2,000 ML 999 ML IVCONT (14:27)
[2021-06-23 15:08] LABS: MANUAL DIFF FLAG NO
[2021-06-23 15:10] LABS: Basophils Percent Auto 0.2 % (0-2); Eosinophils Absolute Auto 0.6 X10*3/uL (0.0-0.4); Eosinophils Percent Auto 3.1 % (0-4); Hematocrit 28.7 % (42.0-52.0); Hemoglobin 9.6 g/dl (14.0-18.0); Imm Gran Abs Auto 0.08 X10*3/uL (0.00-0.03); Imm Gran Pct Auto 0.5 % (0.0-0.4); Lymphocytes Absolute Auto 1.8 X10*3/uL (1.2-4.9); Lymphocytes Percent Auto 10.2 % (20-40); Mean Corpuscular HGB Conc 33.4 g/dl (31.0-36.0); Mean Corpuscular Volume 98.6 fL (80.0-98.0); Mean Platelet Volume 9.3 fL (9.4-12.4); Monocytes Absolute Auto 1.1 X10*3/uL (0.1-1.2); Platelet Count 214 X10*3/uL (160-400); Red Blood Count 2.91 X10*6/uL (4.60-5.80); Red Cell Distribution Width 15.3 % (11.0-16.0); White Blood Count 17.5 X10*3/uL (4.8-10.8)
--- NOTE | 2021-06-23 15:11 | ED_ITS ---
HPI - General Adult General Stated complaint: transfer from [facility] Time Seen by Provider: 06/23/21 14:15 Source: other Mode of arrival: wheelchair Limitations: no limitations History of Present Illness HPI narrative: Patient comes to the emergency room from surgery short-stay. Patient was about to get suprapubic catheter done. However, before even the procedure started, it was noted that the patient's blood pressure was in the low 80s. 1 L of normal saline was given. The blood pressure did not improve. Patient is known to have copious diarrhea secondary to C diff. patient complaining of abdominal cramping. Related Data Home Medications Medication Instructions Recorded Confirmed atorvastatin 80 mg tablet 80 mg PO BEDTIME 04/25/20 06/18/21 amlodipine 5 mg tablet 5 mg PO DAILY 06/20/20 06/18/21 acetaminophen 325 mg tablet 650 mg PO Q4H PRN 02/16/21 06/18/21 bisacodyl 10 mg rectal suppository 10 mg RI DAILY PRN 02/16/21 06/18/21 calcium carbonate 600 mg-vitamin 1 tab PO BID 02/16/21 06/18/21 D3 5 mcg (200 unit) tablet lidocaine 5 % topical patch 1 patch TOPICAL DAILY 02/16/21 06/18/21 magnesium citrate (Citrate of 300 ml PO DAILY PRN 02/16/21 06/18/21 Magnesia) magnesium hydroxide 400 mg/5 mL 30 ml PO DAILY PRN 02/16/21 06/18/21 oral suspension (Milk of Magnesia) oxycodone 5 mg tablet 5 mg PO Q6H PRN 02/16/21 06/18/21 rivaroxaban 20 mg tablet 20 mg PO QPM 02/16/21 06/18/21 Lactobacillus acidophilus 1 cap PO BID 02/26/21 06/18/21 (Acidophilus) ascorbic acid (vitamin C) 500 mg 500 mg PO DAILY 02/26/21 06/18/21 tablet (Vitamin C) levetiracetam 100 mg/mL oral 2.5 ml PO BID 02/26/21 06/18/21 solution naloxone 4 mg/actuation nasal spray 4 mg INTRANASAL ONCE PRN 02/26/21 06/18/21 zinc sulfate 50 mg zinc (220 mg) 50 mg PO DAILY 02/26/21 06/18/21 capsule (Zinc-220) potassium chloride 10 mEq 10 meq PO DAILY 04/23/21 06/18/21 tablet,extended release Previous Rx's Medication Instructions Recorded aspirin 81 mg tablet,delayed 81 mg PO DAILY 90 Days #90 tab 02/07/20 release (Adult Low Dose Aspirin) losartan 100 mg tablet 100 mg PO DAILY 90 Days #90 tab 02/07/20 wet wipes #5 units 03/12/20 tamsulosin 0.4 mg capsule 0.4 mg PO BEDTIME 90 Days #90 cap 03/22/20 miscellaneous medical supply #1 ea 03/26/20 miscellaneous medical supply #1 ea 03/26/20 miscellaneous medical supply #1 ea 03/26/20 miscellaneous medical supply #1 ea 03/26/20 gabapentin 300 mg capsule 300 mg PO BEDTIME 30 Days #30 cap 03/27/20 miscellaneous medical supply #1 ea 03/27/20 ondansetron 4 mg disintegrating 4 mg PO Q6-8H PRN #10 tab 04/15/20 tablet cefuroxime axetil 250 mg tablet 250 mg PO BID 7 Days #14 tab 02/17/21 potassium citrate 10 mEq (1,080 10 meq PO DAILY #4 tab 02/20/21 mg) tablet,extended release Allergies Allergy/AdvReac Type Severity Reaction Status Date / Time No Known Allergies Allergy Verified 04/23/21 13:47 [No Known Allergies*] [facility] Past Medical History Medical History C. difficile diarrhea Cerebrovascular accident (CVA) involving left cerebral hemisphere COVID-19 Hemiplegia of right dominant side due to acute cerebrovascular disease High cholesterol History of CVA (cerebrovascular accident) HTN (hypertension) HTN (hypertension) Paroxysmal atrial fibrillation Stroke UTI (urinary tract infection) UTI (urinary tract infection) due to urinary indwelling Walker catheter Surgical History No pertinent past surgical history Family History Family History Father No problems noted. Mother No problems noted. Social History Social History Household Members: Unknown / Unable to assess Household Members Other:: resides at [facility] MICHAEL Rivers ([phone]) Housing: Jail Are you a primary managed care coordinator to a significant other at home: No Do you presently have visiting nurse or other home services: Yes (CT staff) Unable to assess alcohol history related to: Unable to respond Alcohol intake: unknown Patient Tobacco Use Status: Tobacco use Unknown Advance Directives: Yes Advance Directives on File: Yes Advance Directives Date on File: 02/14/20 service: No Current occupational status: disabled Physical Exam ED Vital Signs: Vital Signs - 24 hr 06/23/21 15:16 06/23/21 16:12 06/23/21 17:25 Temperature 99.7 F Pulse Rate 85 94 106 H Respiratory Rate 16 18 12 Blood Pressure 91/53 L 76/48 L 84/39 L Pulse Oximetry 99 95 98 06/23/21 17:35 06/23/21 17:50 06/23/21 18:20 Temperature Pulse Rate 98 91 90 Respiratory Rate 14 16 16 Blood Pressure 110/72 105/63 104/62 Pulse Oximetry 98 98 97 Course Course Course Narrative: Patient has copious diarrhea. Before L of fluid, Patient's blood pressure is still in 70s. Patient is also receiving now albumin. No fever Patient's blood pressure 116, patient is getting now his 5 L of fluid and albumin is almost done. If patient needs a good blood pressure, he may be able to go to the floor. Patient has a Walker catheter, but he has not produced any urine. At this time, 17:53, patient has not provided a urine sample, patient has not provided any further samples of stool. We will start empiric treatment for C diff. Patient has history of C diff colitis. Will give p.o. antibiotic s/vancomycin and Zosyn. This time, etiology of diarrhea remains unclear. Patient has been hypertensive, again, unclear if this is secondary to sepsis versus severe dehydration from the diarrhea. 18:17 Walker catheter has been changed, draining urine, seems that the urine has pus. at this time, sepsis is suspected. Patient has already been given fluids and covered with Zosyn. Also vancomycin for possible C diff. stool sample still pending. For the last 1/2 hour, patient's blood pressure has been above 110 systolic. However, patient just received albumin as well. 18:25, urinalysis pending, however it is clear that the patient has a urinary tract infection. Patient has already been covered as mentioned above. Pending blood pressure improvement, patient may be able to go to the floor. Given to Dr. Meek , patient to be admitted. Medical Decision Making Lab Data Result diagrams: 06/23/21 15:01 06/23/21 15:02 Labs: Lab Results 06/23/21 06/23/21 06/23/21 Range/Units 15: 15: 15:02 WBC 17.5 H (4.8-10.8) X10*3/uL RBC 2.91 L (4.60-5.80) X10*6/uL Hgb 9.6 L (14.0-18.0) g/dl Hct 28.7 L (42.0-52.0) % MCV 98.6 H (80.0-98.0) fL MCH 33.0 (27.0-33.0) pg MCHC 33.4 (31.0-36.0) g/dl RDW 15.3 (11.0-16.0) % Plt Count 214 (160-400) X10*3/uL MPV 9.3 L (9.4-12.4) fL Immature Gran % (Auto) 0.5 H (0.0-0.4) % Neut % (Auto) 80.0 H (45-73) % Lymph % (Auto) 10.2 L (20-40) % Door % (Auto) 6.0 (2-11) % Eos % (Auto) 3.1 (0-4) % Baso % (Auto) 0.2 (0-2) % Lymph # (Auto) 1.8 (1.2-4.9) X10*3/uL Door # (Auto) 1.1 (0.1-1.2) X10*3/uL Eos # (Auto) 0.6 H (0.0-0.4) X10*3/uL Baso # (Auto) 0.0 (0.0-0.2) X10*3/uL Abs Immat Gran (auto) 0.08 H (0.00-0.03) X10*3/uL Absolute Neuts (auto) 14.0 H (2.0-8.3) x10*3/uL Absolute Nucleated RBC 0.000 (0.0-0.012) X10*3/uL Nucleated RBC % (auto) 0.0 (0.0-0.2) /100WBC PT (9.9-13.0) SEC INR (0.9-1.1) Sodium 136 (135-145) mmol/L Potassium 4.1 D (3.3-5.1) mmol/L Chloride 104 (96-108) mmol/L Carbon Dioxide 22 (22-29) mmol/L Anion Gap 14 (12-20) BUN 65 H D (9-16) mg/dL Creatinine 4.03 H* (0.5-1.4) mg/dL Estim Creat Clear Calc TNP Estimated GFR 15 Random Glucose 107 (60-115) mg/dL Lactic Acid 1.7 (0.5-2.0) mmol/L Calcium 8.4 (8.4-10.2) mg/dL Magnesium 1.9 (1.6-2.6) mg/dL Total Bilirubin 1.1 H (0.0-1.0) mg/dL Direct Bilirubin 0.5 (0.0-0.5) mg/dL AST 9 (5-37) U/L ALT 14 (0-40) U/L Alkaline Phosphatase 67 D (39-117) U/L Troponin I High Sens (<3.5-35.0) ng/L Total Protein 5.2 L (6.5-8.0) g/dL Albumin 2.5 L (3.5-5.0) g/dL Lipase 9 (8-78) U/L COVID-19 (GISELLE) (Negative) COVID-19 Clin Com 06/23/21 06/23/21 06/23/21 Range/Units 15:02 15:02 15:02 WBC (4.8-10.8) X10*3/uL RBC (4.60-5.80) X10*6/uL Hgb (14.0-18.0) g/dl Hct (42.0-52.0) % MCV (80.0-98.0) fL MCH (27.0-33.0) pg MCHC (31.0-36.0) g/dl RDW (11.0-16.0) % Plt Count (160-400) X10*3/uL MPV (9.4-12.4) fL Immature Gran % (Auto) (0.0-0.4) % Neut % (Auto) (45-73) % Lymph % (Auto) (20-40) % Door % (Auto) (2-11) % Eos % (Auto) (0-4) % Baso % (Auto) (0-2) % Lymph # (Auto) (1.2-4.9) X10*3/uL Door # (Auto) (0.1-1.2) X10*3/uL Eos # (Auto) (0.0-0.4) X10*3/uL Baso # (Auto) (0.0-0.2) X10*3/uL Abs Immat Gran (auto) (0.00-0.03) X10*3/uL Absolute Neuts (auto) (2.0-8.3) x10*3/uL Absolute Nucleated RBC (0.0-0.012) X10*3/uL Nucleated RBC % (auto) (0.0-0.2) /100WBC PT 17.8 H (9.9-13.0) SEC INR 1.6 H (0.9-1.1) Sodium (135-145) mmol/L Potassium (3.3-5.1) mmol/L Chloride (96-108) mmol/L Carbon Dioxide (22-29) mmol/L Anion Gap (12-20) BUN (9-16) mg/dL Creatinine (0.5-1.4) mg/dL Estim Creat Clear Calc Estimated GFR Random Glucose (60-115) mg/dL Lactic Acid (0.5-2.0) mmol/L Calcium (8.4-10.2) mg/dL Magnesium (1.6-2.6) mg/dL Total Bilirubin (0.0-1.0) mg/dL Direct Bilirubin (0.0-0.5) mg/dL AST (5-37) U/L ALT (0-40) U/L Alkaline Phosphatase (39-117) U/L Troponin I High Sens 15.8 D (<3.5-35.0) ng/L Total Protein (6.5-8.0) g/dL Albumin (3.5-5.0) g/dL Lipase (8-78) U/L COVID-19 (GISELLE) Negative (Negative) COVID-19 Clin Com See Note Discharge Plan Discharge Clinical Impression: Acute UTI, Urinary tract infection Patient Disposition: Admitted As Inpatient
[2021-06-23 15:21] LABS: INTERNATIONAL NORM RATIO 1.6 (0.9-1.1); Prothrombin Time 17.8 SEC (9.9-13.0)
[2021-06-23 15:24] LABS: Lactic Acid 1.7 mmol/L (0.5-2.0)
[2021-06-23 15:30] LABS: COVID-19 Test Negative (Negative)
[2021-06-23 15:32] LABS: Troponin-I High Sensitivity 15.8 ng/L (<3.5-35.0)
[2021-06-23 15:38] LABS: Alanine Aminotransferase 14 U/L (0-40); Albumin Level 2.5 g/dL (3.5-5.0); Alkaline Phosphatase 67 U/L (39-117); Anion Gap 14 (12-20); Aspartate Amino Transferase 9 U/L (5-37); Bilirubin Direct 0.5 mg/dL (0.0-0.5); Bilirubin Total 1.1 mg/dL (0.0-1.0); Blood Urea Nitrogen 65 mg/dL (9-16); Calcium 8.4 mg/dL (8.4-10.2); Carbon Dioxide 22 mmol/L (22-29); Chloride 104 mmol/L (96-108); Estimated Glomerular Filt Rate 15; Glucose Random 107 mg/dL (60-115); Lipase 9 U/L (8-78); Magnesium 1.9 mg/dL (1.6-2.6); Potassium 4.1 mmol/L (3.3-5.1); Sodium 136 mmol/L (135-145); Total Protein 5.2 g/dL (6.5-8.0)
--- NOTE | 2021-06-23 16:12 | PC.NURSE ---
Pt recieving 3rd liter of fluid at this time. SBP in 70s. Plan for 2 more liters after this due to fluid loss from diarrhea. Pt had 1 large bout diarrhea since arrival to ED
[2021-06-23] MEDS: 0.9 % Sodium Chloride 1,000 ML 999 ML IVCONT (16:25)
[2021-06-23] MEDS: Lactated Ringers 1,000 ML 999 ML IV (17:22)
[2021-06-23] MEDS: Albumin Human 25 % 100 ML IV ×2 (17:23→18:25)
--- NOTE | 2021-06-23 17:26 | PC.NURSE ---
Bp remains low 70s-80s systolic. Pt recieving last liter of % in total including surgical area (4NS and 1LR total). Pt is following simple commands an is alert. Albumin infusing at this time.
[2021-06-23] MEDS: Piperacillin Sodium/Tazobactam 3.375 GM in 0.9 % Sodium Chloride 50 ML IV (18:25)
[2021-06-23 19:17] LABS: Appearance Urine TURBID; Color Urine YELLOW
[2021-06-23 19:20] LABS: UACC Culture Trigger YES; Urine Ketones 5 MG/DL (NEG)
[2021-06-23 19:21] LABS: Glucose Urine UA NEG (NEG); Leukocyte Esterase Urine 3+ (NEG); Nitrite Urine NEG (NEG); Specific Gravity - Urine 1.015 (1.005-1.025); Urine Blood 3+ (NEG); Urine Protein TRACE MG/DL (NEG-TRACE)
[2021-06-23 19:22] LABS: Amphetamine Screen Urine Not Detected (Not Detect); Barbiturates, Urine Not Detected (Not Detect); Benzodiazepines Screen Urine Not Detected (Not Detect); Cannabinoid Screen Urine Not Detected (Not Detect); Cocaine Screen Urine Not Detected (Not Detect); Fentanyl, urine Not Detected (Not Detect); Opiate Screen Urine Not Detected (Not Detect); Phencyclidine Screen Urine Not Detected (Not Detect)
[2021-06-23 19:24] LABS: WBC Urine TNTC /HPF (0-4)
[2021-06-23 19:25] LABS: Bacteria Urine 2+ /LPF
[2021-06-23 19:30] LABS: RBC Urine 0-2 /HPF (0)
--- NOTE | 2021-06-23 19:48 | PHA.MEDREC ---
Pharmacy Consult ? Medication Reconciliation Pharmacy has completed the medication reconciliation. List from [facility]
[2021-06-23 19:55] LABS: CDiff Gene PCR POSITIVE (Negative)
--- NOTE | 2021-06-23 20:14 | PC.NURSE ---
900 ml urination drained from finley
[2021-06-23] MEDS: vancomycin HCL 125 MG CAPSULE 250 MG PO (20:27)
--- NOTE | 2021-06-23 20:45 | PM.IMHP ---
History of Present Illness Date of Service: 06/23/21 Chief Complaint: Hypotension 65-year-old male with a past medical history of hypertension, hyperlipidemia, history of CVA with residual right-sided deficits, chronic indwelling Walker, history of COVID-19 infection, decubitus ulcer, dysarthria, history of recurrent UTI, history of C diff diarrhea presented to the hospital with a chief complaint of hypotension. Patient initially presented to the Urology office for suprapubic catheter placement given his chronic indwelling Walker has recurrent clogging. Patient was noted to be hypotensive at the clinic and subsequently sent to the ER for further evaluation. Patient is a poor historian. Reportedly patient has been having generalized weakness and diarrhea. Has been on p.o. vancomycin for C diff. Patient denies any chest pain or palpitations. Denies any fever chills cough. Review of all other systems is limited. ER course: Per ER team patient on presentation noted to have low blood pressure with systolic in 80s; patient was given aggressive IV hydration. Later patient was noted to have significant urinary retention with bladder scan showing greater than 1000 cc of urine. Walker catheter was clogged. Walker was replaced and bladder was irrigated-noted extensive pyuria. Patient was started on IV Zosyn. Also continued p.o. vanc given positive C diff. On labs noted to have severe VI with creatinine of 4.0. Admitted for further management. [facility] Medical History C. difficile diarrhea Cerebrovascular accident (CVA) involving left cerebral hemisphere COVID-19 Essential hypertension Hemiplegia of right dominant side due to acute cerebrovascular disease High cholesterol History of CVA (cerebrovascular accident) HTN (hypertension) HTN (hypertension) Osteomyelitis Paroxysmal atrial fibrillation Septic shock Stroke UTI (urinary tract infection) due to urinary indwelling Walker catheter Family History Father No problems noted. Mother No problems noted. Surgical History No pertinent past surgical history Social History Household Members: None Household Members Other:: resides at [place], [place] ([phone]) Housing: [facility] Are you a primary managed care director to a significant other at home: No Do you presently have visiting nurse or other home services: No Unable to assess alcohol history related to: Unable to respond Alcohol intake: unknown Patient Tobacco Use Status: Tobacco use Unknown Advance Directives Date on File: 02/14/20 service: No Current occupational status: disabled Meds Allergies Allergy/AdvReac Type Severity Reaction Status Date / Time No Known Allergies Allergy Verified 07/25/21 11:34 [No Known Allergies*] Active Medications: Current Medications Acetaminophen (Acetaminophen 325 Mg Tablet) 650 mg PO Q4H PRN PRN Reason: fever/pain Atorvastatin Calcium (Atorvastatin Calcium 80 Mg Tablet) 80 mg PO BEDTIME KEE Gabapentin (Gabapentin 300 Mg Capsule) 300 mg PO BEDTIME KEE Non-Formulary Medication (Levetiracetam) 2.5 ml PO BID [facility] Non-Formulary Medication (Lidocaine) 1 patch TOPICAL DAILY [facility] Pharmacy Consult (Consult Rx Perform Med Rec) 1 each MISCELLANE ONCE PRN PRN Reason: Consult order Tamsulosin HCl (Tamsulosin Hcl 0.4 Mg Capsule) 0.4 mg PO BEDTIME KEE Vancomycin HCl (Vancomycin Hcl Oral Solution 125 Mg/5 Ml Soln.Recon) 125 mg PO Q6H [facility] Home Medications Medication Instructions Recorded Confirmed Last Taken Type amlodipine 5 mg tablet 5 mg PO DAILY 06/20/20 06/23/21 06/23/21 History acetaminophen 325 mg tablet 650 mg PO Q4H PRN fever/pain 02/16/21 06/23/21 Unknown History bisacodyl 10 mg rectal suppository 10 mg [place] DAILY PRN Constipation 02/16/21 06/23/21 Unknown History calcium carbonate 600 mg-vitamin 1 tab PO BID 02/16/21 06/23/21 Unknown History D3 5 mcg (200 unit) tablet lidocaine 5 % topical patch 1 patch topical DAILY 02/16/21 06/23/21 Unknown History magnesium citrate (Citrate of 300 ml PO DAILY PRN Constipation 02/16/21 06/23/21 Unknown History Magnesia oral) magnesium hydroxide 400 mg/5 mL 30 ml PO DAILY PRN Constipation 02/16/21 06/23/21 Unknown History oral suspension (Milk of Magnesia) levetiracetam 100 mg/mL oral 2.5 ml PO BID 02/26/21 06/23/2106/23/22 History solution naloxone 4 mg/actuation nasal spray 4 mg intranasal ONCE PRN Opioid 02/26/21 06/23/21 Unknown History Overdose potassium chloride 20 mEq 1 tab PO DAILY 06/23/21 06/23/21 Unknown History tablet,extended release(part/cryst) Physical Exam Vital Signs and Narrative: Vital Signs: Last Vital Signs Temp 98.7 F 06/23/21 20:21 Pulse 84 06/23/21 20:21 Resp 13 06/23/21 20:21 BP 106/68 06/23/21 20:21 Pulse Ox 98 06/23/21 20:21 Gen: Appears be in no acute distress HEENT: NCAT, Moist mucosa. Pulmonary: Vesicular breath sounds, fair air entry CVS: Normal S1-S2 Abdomen: BS+, Soft, Nontender Extremities: Warm well perfused Neuro: Alert and awake. Results Labs CBC and Chem 7: 07/01/21 07:18 07/04/21 05:40 Labs: Laboratory Results - last 24 hr 06/23/21 06/23/21 06/23/21 15:01 15:01 15:02 MCV 98.6 H MCH 33.0 MCHC 33.4 RDW 15.3 Plt Count 214 MPV 9.3 L Immature Gran % (Auto) 0.5 H Neut % (Auto) 80.0 H Lymph % (Auto) 10.2 L Dickenson % (Auto) 6.0 Eos % (Auto) 3.1 Baso % (Auto) 0.2 Lymph # (Auto) 1.8 Dickenson # (Auto) 1.1 Eos # (Auto) 0.6 H Baso # (Auto) 0.0 Abs Immat Gran (auto) 0.08 H Absolute Neuts (auto) 14.0 H Absolute Nucleated RBC 0.000 Nucleated RBC % (auto) 0.0 PT INR Anion Gap 14 Estim Creat Clear Calc TNP Estimated GFR 15 Random Glucose 107 Lactic Acid 1.7 Calcium 8.4 Magnesium 1.9 Total Bilirubin 1.1 H Direct Bilirubin 0.5 AST 9 ALT 14 Alkaline Phosphatase 67 D Troponin I High Sens Total Protein 5.2 L Albumin 2.5 L Lipase 9 Urine Color Urine Appearance Urine pH Ur Specific Levant Urine Protein Urine Glucose (UA) Urine Ketones Urine Blood Urine Nitrite Ur Leukocyte Esterase Urine RBC Urine WBC Ur Squamous Epith Cells Urine Bacteria Urine Opiates Screen Urine Fentanyl Screen Ur Barbiturates Screen Ur Phencyclidine Scrn Ur Amphetamines Screen U Benzodiazepines Scrn Urine Cocaine Screen U Marijuana (THC) Screen C. difficile Tox B Gene COVID-19 (GISELLE) COVID-19 Clin Com 06/23/21 06/23/21 06/23/21 15:02 15:02 15:02 MCV MCH MCHC RDW Plt Count MPV Immature Gran % (Auto) Neut % (Auto) Lymph % (Auto) Dickenson % (Auto) Eos % (Auto) Baso % (Auto) Lymph # (Auto) Dickenson # (Auto) Eos # (Auto) Baso # (Auto) Abs Immat Gran (auto) Absolute Neuts (auto) Absolute Nucleated RBC Nucleated RBC % (auto) PT 17.8 H INR 1.6 H Anion Gap Estim Creat Clear Calc Estimated GFR Random Glucose Lactic Acid Calcium Magnesium Total Bilirubin Direct Bilirubin AST ALT Alkaline Phosphatase Troponin I High Sens 15.8 D Total Protein Albumin Lipase Urine Color Urine Appearance Urine pH Ur Specific Levant Urine Protein Urine Glucose (UA) Urine Ketones Urine Blood Urine Nitrite Ur Leukocyte Esterase Urine RBC Urine WBC Ur Squamous Epith Cells Urine Bacteria Urine Opiates Screen Urine Fentanyl Screen Ur Barbiturates Screen Ur Phencyclidine Scrn Ur Amphetamines Screen U Benzodiazepines Scrn Urine Cocaine Screen U Marijuana (THC) Screen C. difficile Tox B Gene COVID-19 (GISELLE) Negative COVID-19 Clin Com See Note 06/23/21 06/23/21 06/23/21 18:59 18:59 18:59 MCV MCH MCHC RDW Plt Count MPV Immature Gran % (Auto) Neut % (Auto) Lymph % (Auto) Dickenson % (Auto) Eos % (Auto) Baso % (Auto) Lymph # (Auto) Dickenson # (Auto) Eos # (Auto) Baso # (Auto) Abs Immat Gran (auto) Absolute Neuts (auto) Absolute Nucleated RBC Nucleated RBC % (auto) PT INR Anion Gap Estim Creat Clear Calc Estimated GFR Random Glucose Lactic Acid Calcium Magnesium Total Bilirubin Direct Bilirubin AST ALT Alkaline Phosphatase Troponin I High Sens Total Protein Albumin Lipase Urine Color YELLOW Urine Appearance TURBID Urine pH 7.0 Ur Specific Levant 1.015 Urine Protein TRACE Urine Glucose (UA) NEG Urine Ketones 5 Urine Blood 3+ H Urine Nitrite NEG Ur Leukocyte Esterase 3+ H Urine RBC 0-2 Urine WBC TNTC H Ur Squamous Epith Cells NONE Urine Bacteria 2+ Urine Opiates Screen Not Detected Urine Fentanyl Screen Not Detected Ur Barbiturates Screen Not Detected Ur Phencyclidine Scrn Not Detected Ur Amphetamines Screen Not Detected U Benzodiazepines Scrn Not Detected Urine Cocaine Screen Not Detected U Marijuana (THC) Screen Not Detected C. difficile Tox B Gene POSITIVE A* COVID-19 (GISELLE) COVID-19 Clin Com Imaging Radiologist's Impressions: Impressions Chest X-Ray 06/23/21 14:33 IMPRESSION: No radiographic evidence of acute cardiopulmonary disease, unchanged since 02/15/2021. Assessment and Plan (1) Acute UTI: Status: Acute (2) C. difficile diarrhea: Status: Acute Plan 65-year-old male with a past medical history of hypertension, hyperlipidemia, history of CVA with residual right-sided deficits, chronic indwelling Walker, history of COVID-19 infection, decubitus ulcer, dysarthria, history of recurrent UTI, history of C diff diarrhea presented to the hospital with a chief complaint of hypotension. Severe sepsis: In the setting of UTI. Patient blood pressure improved after IV fluids. Continue maintenance fluids. Monitor for signs of fluid overload. UTI: Patient noted to have extensive pyuria. Status post bladder irrigation in the ER with iodine; patient new Walker again appeared to be mildly clot. Spoke to RN for frequent irrigation. Continue Zosyn. Follow up cultures Cdiff of diarrhea: Continue p.o. vancomycin. Id consult. VI: Likely postrenal. Initial bladder scan showed greater than 1000 cc of urine. Status post Walker catheter replacement. Monitor renal function. History of chronic indwelling Walker: Patient is being planned for suprapubic catheter given recurrent episodes of Walker being clogged. Urology consult. History of decubitus ulcer: Unstageable. Pressure ulcer care per RN. Wound care consult History of hypertension: Hold home antihypertensives for now History of CVA: Continue home statin, Keppra Dysphagia: Patient on pureed. Óscar status pain. Speech and swallow eval. DVT prophylaxis: Subcu heparin Code status: Full code Quality Stroke Does the patient have a stroke diagnosis?: No VTE Prior VTE?: No VTE Risk Level:: Medical - moderate - high VTE Device Contraindication: Treatment Not Indicated VTE Drug Contraindication: N/A - Med Ordered
[2021-06-23 20:54] LABS: CDIFF Internal ctrl Dots and bkg OK (V); CDiff Toxin Negative (Negative)
--- NOTE | 2021-06-23 21:23 | PC.NURSE ---
Felton GRIDER alerted by Laura Side Seam Envelope Machine Operator that no triage information had been put in for pt so triage was documented now.
[2021-06-23 22:15] LABS: Anion Gap 15 (12-20); Blood Urea Nitrogen 60 mg/dL (9-16); Calcium 8.3 mg/dL (8.4-10.2); Carbon Dioxide 20 mmol/L (22-29); Chloride 107 mmol/L (96-108); Creatinine Clr Calc Pharmacy 18.4; Estimated Glomerular Filt Rate 16; Glucose Random 107 mg/dL (60-115); Potassium 3.5 mmol/L (3.3-5.1); Sodium 138 mmol/L (135-145)
[2021-06-23] MEDS: Atorvastatin Calcium 80 MG TABLET PO (22:28)
[2021-06-23] MEDS: Heparin Sodium,Porcine 5,000 UNIT/ML VIAL 5000 UNIT SUBCUT (22:28)
[2021-06-23] MEDS: Gabapentin 300 MG CAPSULE PO (22:28)
[2021-06-23] MEDS: Tamsulosin HCL 0.4 MG CAPSULE PO (22:28)
[2021-06-23] MEDS: Piperacillin Sodium/Tazobactam 2.25 GM in 0.9 % Sodium Chloride 50 ML IV (22:33)
--- NOTE | 2021-06-23 23:00 | PC.NURSE ---
Pt's finley catheter was irrigated by Felton GRIDER per Dr. Barrett and bladder scanned performed by Abby stress test technician. Finley appears to be draining at this time, will continue to monitor.
--- NOTE | 2021-06-23 23:13 | MHC.CM.PN ---
IMM 06/23. HCP on file. HCP/son Al Costa ([phone]). MOLST-full code. Lives at [facility] Here for suprapubic catheter placement. Low BP. Admitted with severe sepsis. Vax with J&J and received booster. Hx CVA, hemiplegia, aphasia. Complete care. Needs to be fed. Pureed diet and thin liquids per family. Uses wheelchair. D/C plan: return to [facility]. Will need BLS transport. CM to follow for d/c needs.
[2021-06-23] MEDS: 0.9 % Sodium Chloride 1,000 ML 50 ML IVCONT (23:54)
[2021-06-24] VITALS (9 sets, daily range): BP systolic 93–111; BP diastolic 54–72; PULSE 68–106; RESP 12–18; TEMP 36.3–37.5; O2SAT 98–100
[2021-06-24 04:35] LABS: CDiff Gene PCR POSITIVE (Negative)
[2021-06-24 05:17] LABS: CDIFF Internal ctrl Dots and bkg OK (V)
[2021-06-24 05:20] LABS: CDiff Toxin Positive (Negative)
[2021-06-24] MEDS: Piperacillin Sodium/Tazobactam 2.25 GM in 0.9 % Sodium Chloride 50 ML IV ×3 (05:53→21:45)
[2021-06-24 07:20] LABS: Basophils Percent Auto 0.1 % (0-2); Eosinophils Percent Auto 0.2 % (0-4); Hematocrit 24.8 % (42.0-52.0); Hemoglobin 8.2 g/dl (14.0-18.0); Imm Gran Abs Auto 0.06 X10*3/uL (0.00-0.03); Imm Gran Pct Auto 0.5 % (0.0-0.4); Lymphocytes Absolute Auto 1.3 X10*3/uL (1.2-4.9); Lymphocytes Percent Auto 9.7 % (20-40); MANUAL DIFF FLAG NO; Mean Corpuscular HGB Conc 33.1 g/dl (31.0-36.0); Mean Corpuscular Hemoglobin 32.3 pg (27.0-33.0); Mean Corpuscular Volume 97.6 fL (80.0-98.0); Mean Platelet Volume 9.4 fL (9.4-12.4); Monocytes Absolute Auto 0.7 X10*3/uL (0.1-1.2); Monocytes Percent Auto 5.7 % (2-11); Neutrophils Absolute Auto 10.9 x10*3/uL (2.0-8.3); Neutrophils Percent Auto 83.8 % (45-73); Platelet Count 155 X10*3/uL (160-400); Red Blood Count 2.54 X10*6/uL (4.60-5.80); Red Cell Distribution Width 14.9 % (11.0-16.0)
[2021-06-24 07:34] LABS: Anion Gap 14 (12-20); Blood Urea Nitrogen 63 mg/dL (9-16); Calcium 8.2 mg/dL (8.4-10.2); Carbon Dioxide 18 mmol/L (22-29); Chloride 109 mmol/L (96-108); Creatinine Clr Calc Pharmacy 19.8; Estimated Glomerular Filt Rate 17; Glucose Random 89 mg/dL (60-115); Sodium 138 mmol/L (135-145)
--- NOTE | 2021-06-24 08:09 | PC.NURSE ---
Pt sleeping at this time, IV antibiotics completed, NS running at 50/hr. Walker putting out yellow cloudy urine with sediment and puss. Call giraldo within reach, awaiting bed assignment. Will continue to monitor.
[2021-06-24] MEDS: vancomycin HCL Oral Solution 125 MG/5 ML SOLN.RECON PO ×3 (09:21→21:50)
[2021-06-24] MEDS: Heparin Sodium,Porcine 5,000 UNIT/ML VIAL 5000 UNIT SUBCUT ×2 (09:21→21:47)
[2021-06-24] MEDS: Lidocaine 4 % Patch ADH..PATCH 1 PATCH TRANSDERMA (09:21)
--- NOTE | 2021-06-24 09:36 | PC.NURSE ---
Pt Alert, answers yes and no questions at this time. AM care provided, small liquid BM at this time, no blood present. Medicated as per MAR orders, lidocaine patch placed on RUE, rectal temp 98.6, PO intake for meds with no difficulties. MD at bedside, aware of pressures at this time. Pharmacy called for liquid Keppra which is to be sent to [facility]. Call giraldo within reach, will continue to monitor.
--- NOTE | 2021-06-24 10:51 | MHC.SL.SWA ---
Speech Pathologist Impression: Risk of Aspiration Due to: Neurological Condition Reduced Cognition Dysphasia Diet Status: Recommend PUREED (NDD1) solids and NECTAR THICK liquids by teaspoon, with pills CRUSHED in PUREE. Continue 1:1 assistance and aspiration precautions. Liquid Consistency and Strategies for Safe Swallow: Liquid Intake Recommendation: [place] Thick Liquid Intake Strategies: No Straws Liquids by Teaspoon Only Solid Food Consistency: Dietary Recommendations: Pureed (NDD1) Additional Modifications to Solid Foods: Pt requires full assist for all meals, liquids by TSP only, NO STRAWS. Do not attempt if PT is lethargic, not engaged in having meal. Oral Medication Intake: Crushed with Puree Please contact the pharmacy regarding appropriate crushable or liquid drug formulations that are available whenever modified delivery is recommended. Compensatory Strategies and Precautions to be Taken for Safe Swallow: Sitting Upright (90 deg) No Straw Liquids from Spoon Small Bites and Sips Alternate Liquids/Solids Supervision While Eating and Drinking for Safe Swallow: Total Supervision (1:1) Foods to Avoid: [place] sticky solids. Swallowing Recommended Treatments: Compens. Strategy Educat. Recommendation for Speech: Inpatient Speech Therapy Comment: Pt has hx oralpharyngeal dysphagia, previously on diet of PUREE (NDD1) w/ thin liquids. On assessment today, pt declined taking thin liquids (water) but tolerated NECTAR THICK Liquids by TSP. Pt has disorganized oral phase (tongue pumping) and mild, episodic delay initiating swallow, but no clinical signs of aspiration when given PUREE (NDD1) and NECTAR THICK liquids today at bedside. Recommend START diet at consistencies of PUREE (NDD1) and NECTAR THICK liquids, w/ pills CRUSHED in PUREE. Pt will need full assist/supervision at all meals, Liquids by TSP only (No STRAWS), with monitor that patient has swallowed before presenting additional food, monitor for signs of aspiration. Recommendations sent by secure text to MD, Learning Support Specialist, discussed w/ Nursing in person. Frequency/Duration: BARREL HEADER will follow M-F for toleration of diet, re-assessment of swallow, upgrades if warranted. Date Range for Service Req: Timeline to reassess: Multimedia Instructional Designer Clinican/Clinical Fellow: No Supervisory Statement: I have reviewed and agree with the student/clinical fellow's documentation: N/A Speech Language Pathologist: Anni Lloyd M.A., CCC-BARREL HEADER
--- NOTE | 2021-06-24 11:00 | P.CNUR_ITS ---
History of Present Illness Consult details Consult date: 06/24/21 Narrative: Ongoing issues with neurogenic bladder and incomplete emptying Chronic indwelling Walker catheter Had presented through outpatient for suprapubic tube placement yesterday Found to be hypotensive by Anesthesia despite aggressive rehydration Assessment in emergency room found to be in retention with partially emptying catheter Catheter change Also found to be in acute on chronic renal failure Admitted for observation in general rehydration Plan would still be to move ahead with suprapubic tube when stable Review of Systems Constitutional: Constitutional: Reports as per HPI and Reports no additional constitutional complaints Cardiovascular: Cardiovascular: Reports as per HPI and Reports no additional cardiovascular complaints Respiratory: Respiratory: Reports as per HPI and Reports no additional respiratory complaints Gastrointestinal: Gastrointestinal: Reports as per HPI and Reports no additional gastrointestinal complaints Genitourinary: Genitourinary: Reports as per HPI Musculoskeletal: Musculoskeletal: Reports no additional musculoskeletal complaints and Reports as per HPI Neurologic: Reports system reviewed and no additional complaints, except as documented and Reports as per HPI PMFSH Past Medical History Medical History C. difficile diarrhea Cerebrovascular accident (CVA) involving left cerebral hemisphere COVID-19 Hemiplegia of right dominant side due to acute cerebrovascular disease High cholesterol History of CVA (cerebrovascular accident) HTN (hypertension) HTN (hypertension) Paroxysmal atrial fibrillation Stroke UTI (urinary tract infection) UTI (urinary tract infection) due to urinary indwelling Walker catheter Family History Family History Father No problems noted. Mother No problems noted. Surgical History Surgical History No pertinent past surgical history Social History Social History Household Members: Unknown / Unable to assess Household Members Other:: resides at [facility] [place] ([phone]) Housing: Intermediate Are you a primary elderly caregiver to a significant other at home: No Do you presently have visiting nurse or other home services: Yes ([facility] staff) Unable to assess alcohol history related to: Unable to respond Alcohol intake: unknown Patient Tobacco Use Status: Tobacco use Unknown Advance Directives: Yes Advance Directives on File: Yes Advance Directives Date on File: 02/14/20 service: No Current occupational status: disabled Meds Allergies Allergy/AdvReac Type Severity Reaction Status Date / Time No Known Allergies Allergy Verified 04/23/21 13:47 [No Known Allergies*] Active Medications: Current Medications Acetaminophen (Acetaminophen 325 Mg Tablet) 650 mg PO Q4H PRN PRN Reason: fever/pain Acetaminophen (Acetaminophen 325 Mg Tablet) 650 mg PO Q6H PRN PRN Reason: Pain, Mild (Pain Scale 1-3) Atorvastatin Calcium (Atorvastatin Calcium 80 Mg Tablet) 80 mg PO BEDTIME [facility] Last Admin: 06/23/21 22:28 Dose: 80 mg Documented by: Benzonatate (Benzonatate 100 Mg Capsule) 100 mg PO TID PRN PRN Reason: Cough Gabapentin (Gabapentin 300 Mg Capsule) 300 mg PO BEDTIME [facility] Last Admin: 06/23/21 22:28 Dose: 300 mg Documented by: Heparin Sodium (Porcine) (Heparin Sodium,Porcine 5,000 Unit/Ml Vial) 5,000 unit SUBCUT Q12H [facility] Last Admin: 06/24/21 09:21 Dose: 5,000 unit Documented by: Piperacillin Sod/Tazobactam (Sod 2.25 gm/ Sodium Chloride) 50 mls @ 100 mls/hr IV Q8H [facility] Last Infusion: 06/24/21 08:12 Dose: Infused Documented by: Sodium Chloride (Ns) 1,000 mls @ 50 mls/hr IVCONT .Q20H [facility] Last Admin: 06/23/21 23:54 Dose: 50 mls/hr Documented by: Levetiracetam (Levetiracetam Oral Soln 500 Mg/5 Ml) 250 mg PO BID [facility] Lidocaine (Lidocaine 4 % Patch Adh..Patch) 1 patch TRANSDERMA DAILY [facility] Last Admin: 06/24/21 09:21 Dose: 1 patch Documented by: Melatonin (Melatonin 3 Mg Tablet) 6 mg PO BEDTIME PRN PRN Reason: Insomnia Pharmacy Consult (Consult Rx Perform Med Rec) 1 each MISCELLANE ONCE PRN PRN Reason: Consult order Sodium Chloride (0.9 % Sodium Chloride Flush 3 Ml Syringe) 3 ml IVFLUSH QSHIFT [facility] Last Admin: 06/24/21 08:12 Dose: Not Given Documented by: Tamsulosin HCl (Tamsulosin Hcl 0.4 Mg Capsule) 0.4 mg PO BEDTIME [facility] Last Admin: 05/02/22 22:28 Dose: 0.4 mg Documented by: Vancomycin HCl (Vancomycin Hcl Oral Solution 125 Mg/5 Ml Soln.Recon) 125 mg PO Q6H [facility] Last Admin: 06/24/21 09:21 Dose: 125 mg Documented by: Home Medications Medication Instructions Recorded Confirmed Last Taken Type atorvastatin 80 mg tablet 80 mg PO BEDTIME 04/25/20 06/23/21 Unknown History amlodipine 5 mg tablet 5 mg PO DAILY 06/20/20 06/23/21 06/23/21 History acetaminophen 325 mg tablet 650 mg PO Q4H PRN 02/16/21 06/23/21 Unknown History bisacodyl 10 mg rectal suppository [address] DAILY PRN 02/16/21 06/23/21 Unknown History calcium carbonate 600 mg-vitamin 1 tab PO BID 02/16/21 06/23/21 Unknown History D3 5 mcg (200 unit) tablet lidocaine 5 % topical patch 1 patch TOPICAL DAILY 02/16/21 06/23/21 Unknown History magnesium citrate (Citrate of 300 ml PO DAILY PRN 02/16/21 06/23/21 Unknown History Magnesia) magnesium hydroxide 400 mg/5 mL 30 ml PO DAILY PRN 02/16/21 06/23/21 Unknown History oral suspension (Milk of Magnesia) levetiracetam 100 mg/mL oral 2.5 ml PO BID 02/26/21 06/23/21 06/23/21 History solution naloxone 4 mg/actuation nasal spray 4 mg INTRANASAL ONCE PRN 02/26/21 06/23/21 Unknown History potassium chloride 20 mEq 1 tab PO DAILY 06/23/21 06/23/21 Unknown History tablet,extended release(part/cryst) vancomycin 25 mg/mL oral solution 125 mg PO TID 06/23/21 06/23/21 Unknown History (Firvanq) Physical Exam Vital Signs: Vital Signs: Last Vital Signs Temp 98.6 F 06/24/21 09:23 Pulse 76 06/24/21 07:49 Resp 13 06/24/21 07:49 BP 93/60 06/24/21 07:49 Pulse Ox 99 06/24/21 07:49 BMI result Body Mass Index 24.1 Const: General: cooperative, healthy appearing, comfortable and no acute distress Orientation/consciousness: patient oriented x3 HEENT: Face and sinus: Yes normal facial exam Mouth: moist mucous membranes Neck: Neck: Yes normal visual inspection, Yes full ROM and Yes trachea midline Chest: Chest palpation & inspection: normal inspection of the chest Resp: Effort & Inspection: normal respiratory effort, able to speak in complete sentences and no respiratory distress GI: Inspection: Yes normal to inspection Back/Spine/Pelvis: Cervical Spine: normal cervical lordosis Thoracic/Lumbar Spine: thoracic and lumbar spine normal to inspection Skin: General skin exam: no rashes or lesions noted Neuro: General: patient oriented x3, tone normal and moves all extremities Extrem: General: Yes normal to inspection and Yes capillary refill normal Results Labs Result diagrams: 06/24/21 07:14 06/24/21 07:14 Labs: Abnormal lab results 06/23/21 06/23/21 06/23/21 Range/Units 15:01 15:02 15:02 WBC 17.5 H (4.8-10.8) X10*3/uL RBC 2.91 L (4.60-5.80) X10*6/uL Hgb 9.6 L (14.0-18.0) g/dl Hct 28.7 L (42.0-52.0) % MCV 98.6 H (80.0-98.0) fL Plt Count (160-400) X10*3/uL MPV 9.3 L (9.4-12.4) fL Immature Gran % (Auto) 0.5 H (0.0-0.4) % Neut % (Auto) 80.0 H (45-73) % Lymph % (Auto) 10.2 L (20-40) % Eos # (Auto) 0.6 H (0.0-0.4) X10*3/uL Abs Immat Gran (auto) 0.08 H (0.00-0.03) X10*3/uL Absolute Neuts (auto) 14.0 H (2.0-8.3) x10*3/uL PT 17.8 H (9.9-13.0) SEC INR 1.6 H (0.9-1.1) Potassium (3.3-5.1) mmol/L Chloride (96-108) mmol/L Carbon Dioxide (22-29) mmol/L BUN 65 H D (9-16) mg/dL Creatinine 4.03 H* (0.5-1.4) mg/dL Calcium (8.4-10.2) mg/dL Total Bilirubin 1.1 H (0.0-1.0) mg/dL Total Protein 5.2 L (6.5-8.0) g/dL Albumin 2.5 L (3.5-5.0) g/dL Urine Blood (NEG) Ur Leukocyte Esterase (NEG) Urine WBC (0-4) /HPF C. difficile Tox B Gene (Negative) C. difficile Toxin A&B (Negative) 06/23/21 06/23/21 06/23/21 Range/Units 18:59 18:59 21:55 WBC (4.8-10.8) X10*3/uL RBC (4.60-5.80) X10*6/uL Hgb (14.0-18.0) g/dl Hct (42.0-52.0) % MCV (80.0-98.0) fL Plt Count (160-400) X10*3/uL MPV (9.4-12.4) fL Immature Gran % (Auto) (0.0-0.4) % Neut % (Auto) (45-73) % Lymph % (Auto) (20-40) % Eos # (Auto) (0.0-0.4) X10*3/uL Abs Immat Gran (auto) (0.00-0.03) X10*3/uL Absolute Neuts (auto) (2.0-8.3) x10*3/uL PT (9.9-13.0) SEC INR (0.9-1.1) Potassium (3.3-5.1) mmol/L Chloride (96-108) mmol/L Carbon Dioxide 20 L (22-29) mmol/L BUN 60 H (9-16) mg/dL Creatinine 3.82 H (0.5-1.4) mg/dL Calcium 8.3 L (8.4-10.2) mg/dL Total Bilirubin (0.0-1.0) mg/dL Total Protein (6.5-8.0) g/dL Albumin (3.5-5.0) g/dL Urine Blood 3+ H (NEG) Ur Leukocyte Esterase 3+ H (NEG) Urine WBC TNTC H (0-4) /HPF C. difficile Tox B Gene POSITIVE A* (Negative) C. difficile Toxin A&B (Negative) 06/24/21 06/24/21 06/24/21 Range/Units 03:34 07:14 07:14 WBC 13.0 H (4.8-10.8) X10*3/uL RBC 2.54 L (4.60-5.80) X10*6/uL Hgb 8.2 L (14.0-18.0) g/dl Hct 24.8 L (42.0-52.0) % MCV (80.0-98.0) fL Plt Count 155 L D (160-400) X10*3/uL MPV (9.4-12.4) fL Immature Gran % (Auto) 0.5 H (0.0-0.4) % Neut % (Auto) 83.8 H (45-73) % Lymph % (Auto) 9.7 L (20-40) % Eos # (Auto) (0.0-0.4) X10*3/uL Abs Immat Gran (auto) 0.06 H (0.00-0.03) X10*3/uL Absolute Neuts (auto) 10.9 H (2.0-8.3) x10*3/uL PT (9.9-13.0) SEC INR (0.9-1.1) Potassium 3.0 L (3.3-5.1) mmol/L Chloride 109 H (96-108) mmol/L Carbon Dioxide 18 L (22-29) mmol/L BUN 63 H (9-16) mg/dL Creatinine 3.54 H (0.5-1.4) mg/dL Calcium 8.2 L (8.4-10.2) mg/dL Total Bilirubin (0.0-1.0) mg/dL Total Protein (6.5-8.0) g/dL Albumin (3.5-5.0) g/dL Urine Blood (NEG) Ur Leukocyte Esterase (NEG) Urine WBC (0-4) /HPF C. difficile Tox B Gene POSITIVE A* (Negative) C. difficile Toxin A&B Positive A* (Negative) Short CBC 06/23/21 06/24/21 Range/Units 15:01 07:14 WBC 17.5 H 13.0 H (4.8-10.8) X10*3/uL Hgb 9.6 L 8.2 L (14.0-18.0) g/dl Hct 28.7 L 24.8 L (42.0-52.0) % Plt Count 214 155 L D (160-400) X10*3/uL BMP 06/23/21 06/23/21 06/24/21 15:02 21:55 07:14 Sodium 136 138 138 Potassium 4.1 D 3.5 3.0 L Chloride 104 107 109 H Carbon Dioxide 22 20 L 18 L BUN 65 H D 60 H 63 H Creatinine 4.03 H* 3.82 H 3.54 H Calcium 8.4 8.3 L 8.2 L Liver Function 06/23/21 Range/Units 15:02 Total Bilirubin 1.1 H (0.0-1.0) mg/dL Direct Bilirubin 0.5 (0.0-0.5) mg/dL AST 9 (5-37) U/L ALT 14 (0-40) U/L Alkaline Phosphatase 67 D (39-117) U/L Albumin 2.5 L (3.5-5.0) g/dL Urine 06/23/21 Range/Units 18:59 Urine Color YELLOW Urine Appearance TURBID Urine pH 7.0 (5.0-8.0) Ur Specific [place] 1.015 (1.005-1.025) Urine Protein TRACE (NEG-TRACE) MG/DL Urine Glucose (UA) NEG (NEG) MG/DL All other labs normal. Assessment and Plan (1) Acute UTI: Status: Acute (2) Acute renal failure superimposed on stage 2 chronic kidney disease: Status: Acute (3) Neurogenic urinary bladder disorder: Status: Acute Plan Stabilization with possible plan for suprapubic tube placement Procedures Date of Service Date of Service: 06/24/21
[2021-06-24] MEDS: levETIRAcetam Oral Soln 500 MG/5 ML 250 MG PO ×2 (12:51→21:50)
--- NOTE | 2021-06-24 14:56 | PC.NURSE ---
Foam dressing applied to unstagable pressure wound to coccyx. Catheter continues to drain thick cloudy urine.
--- NOTE | 2021-06-24 15:17 | P.PNIM_ITS ---
Subjective Subjective Date of Service: 06/24/21 Interval History: No acute issues overnight. Denies pain Review of Systems Denies chest pain Denies shortness of breath Denies nausea vomiting diarrhea Denies fever chills Physical Exam Vital Signs: Vital Signs: Last Vital Signs Temp 98.6 F 06/24/21 09:23 Pulse 69 06/24/21 14:25 Resp 16 06/24/21 14:25 BP 109/66 06/24/21 14:25 Pulse Ox 100 06/24/21 14:25 BMI result Body Mass Index 24.1 Const: Other: Awake alert orient x3 no acute distress Resp: Other: Clear to auscultation bilaterally no rales rhonchi wheezes Cardio: Other: No S4; positive S1-S2; no S3 murmurs rubs or gallops GI: Other: Soft nontender nondistended normoactive bowel sounds Extrem: Other: No edema bilaterally Objective Data Active Medications Acetaminophen (Acetaminophen 325 Mg Tablet) 650 mg PO Q4H PRN PRN Reason: fever/pain Acetaminophen (Acetaminophen 325 Mg Tablet) 650 mg PO Q6H PRN PRN Reason: Pain, Mild (Pain Scale 1-3) Atorvastatin Calcium (Atorvastatin Calcium 80 Mg Tablet) 80 mg PO BEDTIME [facility] Last Admin: 06/23/21 22:28 Dose: 80 mg Documented by: MARKEL Benzonatate (Benzonatate 100 Mg Capsule) 100 mg PO TID PRN PRN Reason: Cough Gabapentin (Gabapentin 300 Mg Capsule) 300 mg PO BEDTIME [facility] Last Admin: 06/23/21 22:28 Dose: 300 mg Documented by: MARKEL Heparin Sodium (Porcine) (Heparin Sodium,Porcine 5,000 Unit/Ml Vial) 5,000 unit SUBCUT Q12H [facility] Last Admin: 06/24/21 09:21 Dose: 5,000 unit Documented by: YAMILA Piperacillin Sod/Tazobactam (Sod 2.25 gm/ Sodium Chloride) 50 mls @ 100 mls/hr IV Q8H [facility] Last Admin: 06/24/21 14:18 Dose: 100 mls/hr Documented by: MANJEET Sodium Chloride (Ns) 1,000 mls @ 50 mls/hr IVCONT .Q20H [facility] Last Admin: 06/23/21 23:54 Dose: 50 mls/hr Documented by: MARKEL Levetiracetam (Levetiracetam Oral Soln 500 Mg/5 Ml) 250 mg PO BID [facility] Last Admin: 06/24/21 12:51 Dose: 250 mg Documented by: MANJEET Lidocaine (Lidocaine 4 % Patch Adh..Patch) 1 patch TRANSDERMA DAILY [facility] Last Admin: 06/24/21 09:21 Dose: 1 patch Documented by: YAMILA Melatonin (Melatonin 3 Mg Tablet) 6 mg PO BEDTIME PRN PRN Reason: Insomnia Pharmacy Consult (Consult Rx Perform Med Rec) 1 each MISCELLANE ONCE PRN PRN Reason: Consult order Sodium Chloride (0.9 % Sodium Chloride Flush 3 Ml Syringe) 3 ml IVFLUSH QSHIFT [facility] Last Admin: 06/24/21 08:12 Dose: Not Given Documented by: YAMILA Non-Admin Reason: IV Running Tamsulosin HCl (Tamsulosin Hcl 0.4 Mg Capsule) 0.4 mg PO BEDTIME [facility] Last Admin: 06/23/21 22:28 Dose: 0.4 mg Documented by: MARKEL Vancomycin HCl (Vancomycin Hcl Oral Solution 125 Mg/5 Ml Soln.Recon) 125 mg PO Q6H [facility] Last Admin: 06/24/21 14:16 Dose: 125 mg Documented by: MANJEET Labs CBC & Chem 7: 06/24/21 07:14 06/24/21 07:14 Labs: Laboratory Results - last 24 hr 06/23/21 06/23/21 06/23/21 15:01 15:02 15:02 MCV MCH MCHC RDW Plt Count MPV Immature Gran % (Auto) Neut % (Auto) Lymph % (Auto) [place] % (Auto) Eos % (Auto) Baso % (Auto) Lymph # (Auto) [place] # (Auto) Eos # (Auto) Baso # (Auto) Abs Immat Gran (auto) Absolute Neuts (auto) Absolute Nucleated RBC Nucleated RBC % (auto) PT 17.8 H INR 1.6 H Anion Gap 14 Estim Creat Clear Calc TNP Estimated GFR 15 Random Glucose 107 Lactic Acid 1.7 Calcium 8.4 Magnesium 1.9 Total Bilirubin 1.1 H Direct Bilirubin 0.5 AST 9 ALT 14 Alkaline Phosphatase 67 D Troponin I High Sens Total Protein 5.2 L Albumin 2.5 L Lipase 9 Urine Color Urine Appearance Urine pH Ur Specific [place] Urine Protein Urine Glucose (UA) Urine Ketones Urine Blood Urine Nitrite Ur Leukocyte Esterase Urine RBC Urine WBC Ur Squamous Epith Cells Urine Bacteria Urine Opiates Screen Urine Fentanyl Screen Ur Barbiturates Screen Ur Phencyclidine Scrn Ur Amphetamines Screen U Benzodiazepines Scrn Urine Cocaine Screen U Marijuana (THC) Screen C. difficile Tox B Gene C. difficile Toxin A&B C. difficile Interpret COVID-19 ([facility]) COVID-19 Clin Com 06/23/21 06/23/21 06/23/21 15:02 15:02 18:59 MCV MCH MCHC RDW Plt Count MPV Immature Gran % (Auto) Neut % (Auto) Lymph % (Auto) [place] % (Auto) Eos % (Auto) Baso % (Auto) Lymph # (Auto) [place] # (Auto) Eos # (Auto) Baso # (Auto) Abs Immat Gran (auto) Absolute Neuts (auto) Absolute Nucleated RBC Nucleated RBC % (auto) PT INR Anion Gap Estim Creat Clear Calc Estimated GFR Random Glucose Lactic Acid Calcium Magnesium Total Bilirubin Direct Bilirubin AST ALT Alkaline Phosphatase Troponin I High Sens 15.8 D Total Protein Albumin Lipase Urine Color Urine Appearance Urine pH Ur Specific [place] Urine Protein Urine Glucose (UA) Urine Ketones Urine Blood Urine Nitrite Ur Leukocyte Esterase Urine RBC Urine WBC Ur Squamous Epith Cells Urine Bacteria Urine Opiates Screen Not Detected Urine Fentanyl Screen Not Detected Ur Barbiturates Screen Not Detected Ur Phencyclidine Scrn Not Detected Ur Amphetamines Screen Not Detected U Benzodiazepines Scrn Not Detected Urine Cocaine Screen Not Detected U Marijuana (THC) Screen Not Detected C. difficile Tox B Gene C. difficile Toxin A&B C. difficile Interpret COVID-19 ([facility]) Negative COVID-19 Clin Com See Note 06/23/21 06/23/21 06/23/21 18:59 18:59 21:55 MCV MCH MCHC RDW Plt Count MPV Immature Gran % (Auto) Neut % (Auto) Lymph % (Auto) [place] % (Auto) Eos % (Auto) Baso % (Auto) Lymph # (Auto) [place] # (Auto) Eos # (Auto) Baso # (Auto) Abs Immat Gran (auto) Absolute Neuts (auto) Absolute Nucleated RBC Nucleated RBC % (auto) PT INR Anion Gap 15 Estim Creat Clear Calc 18.4 Estimated GFR 16 Random Glucose 107 Lactic Acid Calcium 8.3 L Magnesium Total Bilirubin Direct Bilirubin AST ALT Alkaline Phosphatase Troponin I High Sens Total Protein Albumin Lipase Urine Color YELLOW Urine Appearance TURBID Urine pH 7.0 Ur Specific [place] 1.015 Urine Protein TRACE Urine Glucose (UA) NEG Urine Ketones 5 Urine Blood 3+ H Urine Nitrite NEG Ur Leukocyte Esterase 3+ H Urine RBC 0-2 Urine WBC TNTC H Ur Squamous Epith Cells NONE Urine Bacteria 2+ Urine Opiates Screen Urine Fentanyl Screen Ur Barbiturates Screen Ur Phencyclidine Scrn Ur Amphetamines Screen U Benzodiazepines Scrn Urine Cocaine Screen U Marijuana (THC) Screen C. difficile Tox B Gene POSITIVE A* C. difficile Toxin A&B Negative C. difficile Interpret SEE NOTE COVID-19 ([facility]) COVID-19 [employer] Com 06/24/21 06/24/21 06/24/21 03:34 07:14 07:14 MCV 97.6 MCH 32.3 MCHC 33.1 RDW 14.9 Plt Count 155 L D MPV 9.4 Immature Gran % (Auto) 0.5 H Neut % (Auto) 83.8 H Lymph % (Auto) 9.7 L [place] % (Auto) 5.7 Eos % (Auto) 0.2 Baso % (Auto) 0.1 Lymph # (Auto) 1.3 [place] # (Auto) 0.7 Eos # (Auto) 0.0 Baso # (Auto) 0.0 Abs Immat Gran (auto) 0.06 H Absolute Neuts (auto) 10.9 H Absolute Nucleated RBC 0.000 Nucleated RBC % (auto) 0.0 PT INR Anion Gap 14 Estim Creat Clear Calc 19.8 Estimated GFR 17 Random Glucose 89 Lactic Acid Calcium 8.2 L Magnesium Total Bilirubin Direct Bilirubin AST ALT Alkaline Phosphatase Troponin I High Sens Total Protein Albumin Lipase Urine Color Urine Appearance Urine pH Ur Specific [place] Urine Protein Urine Glucose (UA) Urine Ketones Urine Blood Urine Nitrite Ur Leukocyte Esterase Urine RBC Urine WBC Ur Squamous Epith Cells Urine Bacteria Urine Opiates Screen Urine Fentanyl Screen Ur Barbiturates Screen Ur Phencyclidine Scrn Ur Amphetamines Screen U Benzodiazepines Scrn Urine Cocaine Screen U Marijuana (THC) Screen C. difficile Tox B Gene POSITIVE A* C. difficile Toxin A&B Positive A* C. difficile Interpret SEE NOTE COVID-19 ([facility]) COVID-19 Clin Com Microbiology Microbiology Results: Microbiology 06/23/21 19:28 Urine Culture - Preliminary Urine Catheterized - Walker Catheter Culture in progress. 06/23/21 15:02 Blood Culture - Preliminary Blood - Venous Prelim: GNR Gram Stain only Assessment and Plan (1) Acute UTI: Status: Acute (2) C. difficile diarrhea: Status: Acute (3) Acute renal failure superimposed on stage 2 chronic kidney disease: Status: Acute (4) Essential hypertension: Status: Acute (5) History of CVA (cerebrovascular accident): Status: Acute Plan 65-year-old male with a past medical history of hypertension, hyperlipidemia, history of CVA with residual right-sided deficits, chronic indwelling Walker, history of COVID-19 infection, decubitus ulcer, dysarthria, history of recurrent UTI, history of C diff diarrhea presented to the hospital with a chief complaint of hypotension and backdrop of recurrent UTI 1.Severe sepsis(UTI) -HD stabel -Continue Zosyn..prelim 02/23 GNR -await cultures 2.Cdiff -PO Vanco -ID consult 3.VI -responding to volume -follow renals/divalents -seen by Urtology...potential suprapubic cath 4.Hypertension -acceptable control off therapies -add back when clinically indicated 5.History of CVA -adjust diet as per speech recommendations -continue Keppra DVT prophylaxis: Subcu heparin Code status: Full code Quality Stroke Does the patient have a stroke diagnosis?: No VTE Prior VTE?: No VTE Risk Level:: Medical - moderate - high VTE Device Contraindication: Treatment Not Indicated VTE Drug Contraindication: N/A - Med Ordered
--- NOTE | 2021-06-24 15:44 | W.PM.IDCN ---
History of Present Illness Data of Consult Service Date: 06/24/21 Requesting physician: Demetri De La Paz Primary Care Provider: Lorraine Wiley MD HPI Reason for consult: septic shock,hypotension and bacteremia He presents with weakness and hypotension to 80s and received IVF. He has gram negative rods in blood and receiving piperacillin/tazobactam He also has profuse diarrhea and has had Cdiff. Review of Systems Review of Systems: Yes all other systems are reviewed and are negative PMFSH Past Medical History Medical History (Updated 06/24/21 @ 15:48 by Kelsey Benitez MD) C. difficile diarrhea Cerebrovascular accident (CVA) involving left cerebral hemisphere COVID-19 Hemiplegia of right dominant side due to acute cerebrovascular disease High cholesterol History of CVA (cerebrovascular accident) HTN (hypertension) HTN (hypertension) Paroxysmal atrial fibrillation Septic shock Stroke UTI (urinary tract infection) UTI (urinary tract infection) due to urinary indwelling Walker catheter Family History Family History Father No problems noted. Mother No problems noted. Family history: reviewed and not pertinent Surgical History Surgical History No pertinent past surgical history Social History Social History Household Members: Unknown / Unable to assess Household Members Other:: resides at [place], [place] ([phone]) Housing: Assisted Are you a primary health care assistant to a significant other at home: No Do you presently have visiting nurse or other home services: Yes ([place] staff) Unable to assess alcohol history related to: Unable to respond Alcohol intake: unknown Patient Tobacco Use Status: Tobacco use Unknown Advance Directives: Yes Advance Directives on File: Yes Advance Directives Date on File: 02/14/20 service: No Current occupational status: disabled Meds Allergies Allergy/AdvReac Type Severity Reaction Status Date / Time No Known Allergies Allergy Verified 04/23/21 13:47 [No Known Allergies*] Active Medications: Current Medications Acetaminophen (Acetaminophen 325 Mg Tablet) 650 mg PO Q4H PRN PRN Reason: fever/pain Acetaminophen (Acetaminophen 325 Mg Tablet) 650 mg PO Q6H PRN PRN Reason: Pain, Mild (Pain Scale 1-3) Atorvastatin Calcium (Atorvastatin Calcium 80 Mg Tablet) 80 mg PO BEDTIME [facility] Last Admin: 06/23/21 22:28 Dose: 80 mg Documented by: Benzonatate (Benzonatate 100 Mg Capsule) 100 mg PO TID PRN PRN Reason: Cough Gabapentin (Gabapentin 300 Mg Capsule) 300 mg PO BEDTIME [facility] Last Admin: 06/23/21 22:28 Dose: 300 mg Documented by: Heparin Sodium (Porcine) (Heparin Sodium,Porcine 5,000 Unit/Ml Vial) 5,000 unit SUBCUT Q12H [facility] Last Admin: 06/24/21 09:21 Dose: 5,000 unit Documented by: Piperacillin Sod/Tazobactam (Sod 2.25 gm/ Sodium Chloride) 50 mls @ 100 mls/hr IV Q8H [facility] Last Admin: 06/24/21 14:18 Dose: 100 mls/hr Documented by: Sodium Chloride (Ns) 1,000 mls @ 50 mls/hr IVCONT .Q20H [facility] Last Admin: 06/23/21 23:54 Dose: 50 mls/hr Documented by: Levetiracetam (Levetiracetam Oral Soln 500 Mg/5 Ml) 250 mg PO BID [facility] Last Admin: 06/24/21 12:51 Dose: 250 mg Documented by: Lidocaine (Lidocaine 4 % Patch Adh..Patch) 1 patch TRANSDERMA DAILY [facility] Last Admin: 06/24/21 09:21 Dose: 1 patch Documented by: Melatonin (Melatonin 3 Mg Tablet) 6 mg PO BEDTIME PRN PRN Reason: Insomnia Pharmacy Consult (Consult Rx Perform Med Rec) 1 each MISCELLANE ONCE PRN PRN Reason: Consult order Sodium Chloride (0.9 % Sodium Chloride Flush 3 Ml Syringe) 3 ml IVFLUSH QSHIFT [facility] Last Admin: 06/24/21 08:12 Dose: Not Given Documented by: Tamsulosin HCl (Tamsulosin Hcl 0.4 Mg Capsule) 0.4 mg PO BEDTIME [facility] Last Admin: 06/23/21 22:28 Dose: 0.4 mg Documented by: Vancomycin HCl (Vancomycin Hcl Oral Solution 125 Mg/5 Ml Soln.Recon) 125 mg PO Q6H [facility] Last Admin: 06/24/21 14:16 Dose: 125 mg Documented by: Home Medications Medication Instructions Recorded Confirmed Last Taken Type atorvastatin 80 mg tablet 80 mg PO BEDTIME 04/25/20 06/23/21 Unknown History amlodipine 5 mg tablet 5 mg PO DAILY 06/20/20 06/23/21 06/23/21 History acetaminophen 325 mg tablet 650 mg PO Q4H PRN 02/16/21 06/23/21 Unknown History bisacodyl 10 mg rectal suppository 10 mg [place] DAILY PRN 02/16/21 06/23/21 Unknown History calcium carbonate 600 mg-vitamin 1 tab PO BID 02/16/21 06/23/21 Unknown History D3 5 mcg (200 unit) tablet lidocaine 5 % topical patch 1 patch TOPICAL DAILY 02/16/21 06/23/21 Unknown History magnesium citrate (Citrate of 300 ml PO DAILY PRN 02/16/21 06/23/21 Unknown History Magnesia) magnesium hydroxide 400 mg/5 mL 30 ml PO DAILY PRN 02/16/21 06/23/21 Unknown History oral suspension (Milk of Magnesia) levetiracetam 100 mg/mL oral 2.5 ml PO BID 02/26/21 06/23/21 06/23/21 History solution naloxone 4 mg/actuation nasal spray 4 mg INTRANASAL ONCE PRN 02/26/21 06/23/21 Unknown History potassium chloride 20 mEq 1 tab PO DAILY 06/23/21 06/23/21 Unknown History tablet,extended release(part/cryst) vancomycin 25 mg/mL oral solution 125 mg PO TID 06/23/21 06/23/21 Unknown History (Firvanq) Physical Exam Vital Signs: Vital Signs: Last Vital Signs Temp 98.6 F 06/24/21 09:23 Pulse 69 06/24/21 14:25 Resp 16 06/24/21 14:25 BP 109/66 06/24/21 14:25 Pulse Ox 100 06/24/21 14:25 BMI result Body Mass Index 24.1 Const: General: cooperative HEENT: Head: Yes normal to inspection Resp: Effort & Inspection: normal respiratory effort Cardio: Rate: regular rate Rhythm: regular rhythm GI: Palpation (GI): Soft to palpation and nontender Skin: General skin exam: no rashes or lesions noted Results Labs CBC & Chem 7: 06/24/21 07:14 06/24/21 07:14 Labs: Short CBC 06/24/21 Range/Units 07:14 WBC 13.0 H (4.8-10.8) X10*3/uL Hgb 8.2 L (14.0-18.0) g/dl Hct 24.8 L (42.0-52.0) % Plt Count 155 L D (160-400) X10*3/uL BMP 06/23/21 06/24/21 21:55 07:14 Sodium 138 138 Potassium 3.5 3.0 L Chloride 107 109 H Carbon Dioxide 20 L 18 L BUN 60 H 63 H Creatinine 3.82 H 3.54 H Calcium 8.3 L 8.2 L Urine 06/23/21 Range/Units 18:59 Urine Color YELLOW Urine Appearance TURBID Urine pH 7.0 (5.0-8.0) Ur Specific [place] 1.015 (1.005-1.025) Urine Protein TRACE (NEG-TRACE) MG/DL Urine Glucose (UA) NEG (NEG) MG/DL Microbiology Microbiology Results: Microbiology 06/23/21 19:28 Urine Catheterized - Walker Catheter Urine Culture - Preliminary Culture in progress. 06/23/21 15:02 Blood - Venous Blood Culture - Preliminary Prelim: GNR Gram Stain only Assessment and Plan (1) UTI (urinary tract infection): Status: Acute (2) C. difficile diarrhea: Status: Acute (3) Septic shock: Status: Acute this is possible Pseudomonas He has probable urinary infectionas source Plan Would check CT abdomen and pelvis Would continue Zosyn and await culture as could be Pseudomonas Would treat Cdiff until after antibiotics for 48 hours.
[2021-06-24] MEDS: 0.9 % Sodium Chloride Flush 3 ML SYRINGE IVFLUSH ×2 (16:14→23:51)
--- NOTE | 2021-06-24 16:22 | P.PNNP_ITS ---
Subjective Subjective Date of Service: 06/24/21 Interval history: seen and examined Physical Exam Vital Signs: Vital Signs: Last Vital Signs Temp 97.4 F 06/24/21 16:14 Pulse 68 06/24/21 16:14 Resp 14 06/24/21 16:14 BP 97/65 06/24/21 16:14 Pulse Ox 98 06/24/21 16:14 BMI result Body Mass Index 24.1 Objective Data Labs CBC & Chem 7: 06/24/21 07:14 06/24/21 07:14 Labs: Laboratory Results - last 24 hr 06/23/21 06/23/21 06/23/21 18:59 18:59 18:59 WBC RBC Hgb Hct MCV MCH MCHC RDW Plt Count MPV Immature Gran % (Auto) Neut % (Auto) Lymph % (Auto) [place] % (Auto) Eos % (Auto) Baso % (Auto) Lymph # (Auto) [place] # (Auto) Eos # (Auto) Baso # (Auto) Abs Immat Gran (auto) Absolute Neuts (auto) Absolute Nucleated RBC Nucleated RBC % (auto) Sodium Potassium Chloride Carbon Dioxide Anion Gap BUN Creatinine Estim Creat Clear Calc Estimated GFR Random Glucose Calcium Urine Color YELLOW Urine Appearance TURBID Urine pH 7.0 Ur Specific [place] 1.015 Urine Protein TRACE Urine Glucose (UA) NEG Urine Ketones 5 Urine Blood 3+ H Urine Nitrite NEG Ur Leukocyte Esterase 3+ H Urine RBC 0-2 Urine WBC TNTC H Ur Squamous Epith Cells NONE Urine Bacteria 2+ Urine Opiates Screen Not Detected Urine Fentanyl Screen Not Detected Ur Barbiturates Screen Not Detected Ur Phencyclidine Scrn Not Detected Ur Amphetamines Screen Not Detected U Benzodiazepines Scrn Not Detected Urine Cocaine Screen Not Detected U Marijuana (THC) Screen Not Detected C. difficile Tox B Gene POSITIVE A* C. difficile Toxin A&B Negative C. difficile Interpret SEE NOTE 06/23/21 06/24/21 06/24/21 21:55 03:34 07:14 WBC 13.0 H RBC 2.54 L Hgb 8.2 L Hct 24.8 L MCV 97.6 MCH 32.3 MCHC 33.1 RDW 14.9 Plt Count 155 L D MPV 9.4 Immature Gran % (Auto) 0.5 H Neut % (Auto) 83.8 H Lymph % (Auto) 9.7 L [place] % (Auto) 5.7 Eos % (Auto) 0.2 Baso % (Auto) 0.1 Lymph # (Auto) 1.3 [place] # (Auto) 0.7 Eos # (Auto) 0.0 Baso # (Auto) 0.0 Abs Immat Gran (auto) 0.06 H Absolute Neuts (auto) 10.9 H Absolute Nucleated RBC 0.000 Nucleated RBC % (auto) 0.0 Sodium 138 Potassium 3.5 Chloride 107 Carbon Dioxide 20 L Anion Gap 15 BUN 60 H Creatinine 3.82 H Estim Creat Clear Calc 18.4 Estimated GFR 16 Random Glucose 107 Calcium 8.3 L Urine Color Urine Appearance Urine pH Ur Specific [place] Urine Protein Urine Glucose (UA) Urine Ketones Urine Blood Urine Nitrite Ur Leukocyte Esterase Urine RBC Urine WBC Ur Squamous Epith Cells Urine Bacteria Urine Opiates Screen Urine Fentanyl Screen Ur Barbiturates Screen Ur Phencyclidine Scrn Ur Amphetamines Screen U Benzodiazepines Scrn Urine Cocaine Screen U Marijuana (THC) Screen C. difficile Tox B Gene POSITIVE A* C. difficile Toxin A&B Positive A* C. difficile Interpret SEE NOTE 06/24/21 07:14 WBC RBC Hgb Hct MCV MCH MCHC RDW Plt Count MPV Immature Gran % (Auto) Neut % (Auto) Lymph % (Auto) [place] % (Auto) Eos % (Auto) Baso % (Auto) Lymph # (Auto) [place] # (Auto) Eos # (Auto) Baso # (Auto) Abs Immat Gran (auto) Absolute Neuts (auto) Absolute Nucleated RBC Nucleated RBC % (auto) Sodium 138 Potassium 3.0 L Chloride 109 H Carbon Dioxide 18 L Anion Gap 14 BUN 63 H Creatinine 3.54 H Estim Creat Clear Calc 19.8 Estimated GFR 17 Random Glucose 89 Calcium 8.2 L Urine Color Urine Appearance Urine pH Ur Specific [place] Urine Protein Urine Glucose (UA) Urine Ketones Urine Blood Urine Nitrite Ur Leukocyte Esterase Urine RBC Urine WBC Ur Squamous Epith Cells Urine Bacteria Urine Opiates Screen Urine Fentanyl Screen Ur Barbiturates Screen Ur Phencyclidine Scrn Ur Amphetamines Screen U Benzodiazepines Scrn Urine Cocaine Screen U Marijuana (THC) Screen C. difficile Tox B Gene C. difficile Toxin A&B C. difficile Interpret Microbiology Microbiology Results: Microbiology 06/23/21 19:28 Urine Catheterized - Walker Catheter Urine Culture - Preliminary Culture in progress. 06/23/21 15:02 Blood - Venous Blood Culture - Preliminary Prelim: GNR Gram Stain only Procedures Date of Service Date of Service: 06/24/21 Assessment & Plan Assessment and plan (1) VI (acute kidney injury): Status: Acute (2) Hypokalemia: Status: Acute (3) Metabolic acidosis: Status: Acute Plan multifactorial VI in the setting of gram negative bacteremia and septic shock (hypotensive) -compromised kidney perfusion and tubular stress -obstructive uropathy due to urinary retention metabolic acidosis due to VI and GI bicarbonate loss normal baseline kidney function REC urine sodium replace potassium CT scan abdomen IVF follow kidney function and electrolytes Time Spent With Patient Time: Total time spent is greater than 50% in coordination of care (as documented) at patient's floor/unit and/or counseling patient: Progress Note: Quality Stroke Does the patient have a stroke diagnosis?: No
[2021-06-24] MEDS: 0.9 % Sodium Chloride 1,000 ML 50 ML IVCONT (19:25)
--- NOTE | 2021-06-24 20:15 | PC.NURSE ---
Patient's daughter at bedside, updated on patient plan of care.
[2021-06-24] MEDS: Gabapentin 300 MG CAPSULE PO (21:50)
[2021-06-24] MEDS: Tamsulosin HCL 0.4 MG CAPSULE PO (21:50)
[2021-06-24] MEDS: Atorvastatin Calcium 80 MG TABLET PO (21:50)
[2021-06-25] VITALS (27 sets, daily range): BP systolic 72–184; BP diastolic 37–123; PULSE 41–87; RESP 12–18; TEMP 36.1–36.2; O2SAT 95–100
[2021-06-25] MEDS: vancomycin HCL Oral Solution 125 MG/5 ML SOLN.RECON PO ×4 (02:42→21:59)
[2021-06-25] MEDS: Piperacillin Sodium/Tazobactam 2.25 GM in 0.9 % Sodium Chloride 50 ML IV ×3 (05:52→22:00)
[2021-06-25 08:48] LABS: MANUAL DIFF FLAG NO
[2021-06-25 08:54] LABS: Basophils Percent Auto 0.2 % (0-2); Eosinophils Absolute Auto 0.1 X10*3/uL (0.0-0.4); Eosinophils Percent Auto 0.8 % (0-4); Hematocrit 27.3 % (42.0-52.0); Imm Gran Abs Auto 0.03 X10*3/uL (0.00-0.03); Imm Gran Pct Auto 0.3 % (0.0-0.4); Lymphocytes Absolute Auto 1.3 X10*3/uL (1.2-4.9); Lymphocytes Percent Auto 13.7 % (20-40); Mean Corpuscular Hemoglobin 32.5 pg (27.0-33.0); Mean Corpuscular Volume 98.6 fL (80.0-98.0); Mean Platelet Volume 9.5 fL (9.4-12.4); Monocytes Absolute Auto 0.6 X10*3/uL (0.1-1.2); Monocytes Percent Auto 6.2 % (2-11); Neutrophils Absolute Auto 7.3 x10*3/uL (2.0-8.3); Neutrophils Percent Auto 78.8 % (45-73); Platelet Count 173 X10*3/uL (160-400); Red Blood Count 2.77 X10*6/uL (4.60-5.80); Red Cell Distribution Width 14.6 % (11.0-16.0); White Blood Count 9.2 X10*3/uL (4.8-10.8)
[2021-06-25] MEDS: levETIRAcetam Oral Soln 500 MG/5 ML 250 MG PO ×2 (09:17→21:59)
[2021-06-25] MEDS: Acetaminophen 325 MG TABLET 650 MG PO (09:18)
[2021-06-25] MEDS: 0.9 % Sodium Chloride Flush 3 ML SYRINGE IVFLUSH (09:18)
[2021-06-25] MEDS: Heparin Sodium,Porcine 5,000 UNIT/ML VIAL 5000 UNIT SUBCUT ×2 (09:18→20:37)
[2021-06-25 09:19] LABS: Alanine Aminotransferase 22 U/L (0-40); Albumin Level 2.6 g/dL (3.5-5.0); Alkaline Phosphatase 68 U/L (39-117); Anion Gap 18 (12-20); Aspartate Amino Transferase 17 U/L (5-37); Bilirubin Total 0.7 mg/dL (0.0-1.0); Blood Urea Nitrogen 64 mg/dL (9-16); Calcium 8.2 mg/dL (8.4-10.2); Carbon Dioxide 14 mmol/L (22-29); Chloride 113 mmol/L (96-108); Creatinine Clr Calc Pharmacy 21.9; Estimated Glomerular Filt Rate 20; Glucose Fasting 73 mg/dL (60-99); Sodium 142 mmol/L (135-145); Total Protein 5.2 g/dL (6.5-8.0)
[2021-06-25] MEDS: Lidocaine 4 % Patch ADH..PATCH 1 PATCH TRANSDERMA (09:19)
--- NOTE | 2021-06-25 10:30 | PC.NURSE ---
speech ans swallow at bedside.
--- NOTE | 2021-06-25 11:06 | MHC.SL.SWA ---
Speech Pathologist Impression: Oropharyngeal dysphagia Risk of Aspiration Due to: Neurological Condition Reduced Cognition Dysphasia Diet Status: No Change Liquid Consistency and Strategies for Safe Swallow: Liquid Intake Recommendation: [place] Thick Liquid Intake Strategies: No Straws Solid Food Consistency: Dietary Recommendations: Pureed (NDD1) Additional Modifications to Solid Foods: Pt requires full assist for all meals, NO STRAWS. Do not attempt if PT is lethargic, not engaged in having meal. Oral Medication Intake: Crushed with Puree Please contact the pharmacy regarding appropriate crushable or liquid drug formulations that are available whenever modified delivery is recommended. Compensatory Strategies and Precautions to be Taken for Safe Swallow: Sitting Upright (90 deg) No Straw Small Bites and Sips Alternate Liquids/Solids Rate of Ingestion Change Oral Check Supervision While Eating and Drinking for Safe Swallow: Total Assistance (1:1) Swallowing Recommended Treatments: Compens. Strategy Educat. Recommendation for Speech: Inpatient Speech Therapy [employer] Officer Clinican/Clinical Fellow: No Supervisory Statement: I have reviewed and agree with the student/clinical fellow's documentation: N/A Speech Language Pathologist: Danielle Avery M.A., CCC-ASSISTANT OFFSET PRESS OPERATOR
--- NOTE | 2021-06-25 11:13 | P.PNNP_ITS ---
Subjective Subjective Date of Service: 06/25/21 Interval history: seen and examined lethargic Physical Exam Vital Signs: Vital Signs: Last Vital Signs Temp 97.1 F 06/25/21 09:15 Pulse 57 06/25/21 09:15 Resp 16 06/25/21 09:15 BP 98/54 L 06/25/21 09:15 Pulse Ox 99 06/25/21 09:15 BMI result Body Mass Index 24.1 Const: General: no acute distress HEENT: Head: Yes normocephalic and Yes atraumatic Neck: Neck: Yes supple Resp: Auscultation: diminished lung sounds Cardio: Heart sounds: S1 normal heart sound present and S2 normal heart sound present GI: Palpation (GI): Soft to palpation and nontender Extrem: General: Yes no pedal edema Objective Data Labs CBC & Chem 7: 06/25/21 08:36 06/25/21 08:36 Labs: Laboratory Results - last 24 hr 06/24/21 06/25/21 06/25/21 23:13 08:36 08:36 WBC 9.2 RBC 2.77 L Hgb 9.0 L Hct 27.3 L MCV 98.6 H MCH 32.5 MCHC 33.0 RDW 14.6 Plt Count 173 MPV 9.5 Immature Gran % (Auto) 0.3 Neut % (Auto) 78.8 H Lymph % (Auto) 13.7 L [place] % (Auto) 6.2 Eos % (Auto) 0.8 Baso % (Auto) 0.2 Lymph # (Auto) 1.3 [place] # (Auto) 0.6 Eos # (Auto) 0.1 Baso # (Auto) 0.0 Abs Immat Gran (auto) 0.03 Absolute Neuts (auto) 7.3 Absolute Nucleated RBC 0.000 Nucleated RBC % (auto) 0.0 Sodium 142 Potassium 3.0 L Chloride 113 H Carbon Dioxide 14 L Anion Gap 18 BUN 64 H Creatinine 3.20 H Estim Creat Clear Calc 21.9 Estimated GFR 20 Fasting Glucose 73 D Calcium 8.2 L Total Bilirubin 0.7 AST 17 D ALT 22 Alkaline Phosphatase 68 Total Protein 5.2 L Albumin 2.6 L Ur Random Sodium 56.0 Microbiology Microbiology Results: Microbiology 06/23/21 16:22 Blood - Venous Blood Culture - Preliminary No growth after 24 hours. 06/23/21 19:28 Urine Catheterized - Walker Catheter Urine Culture - Preliminary Culture in progress. 06/23/21 15:02 Blood - Venous Blood Culture - Preliminary Prelim: GNR Gram Stain only Procedures Date of Service Date of Service: 06/25/21 Assessment & Plan Assessment and plan (1) VI (acute kidney injury): Status: Acute (2) Hypokalemia: Status: Acute (3) Metabolic acidosis: Status: Acute Plan Scr better multifactorial VI in the setting of gram negative bacteremia and septic shock (hypotensive) -compromised kidney perfusion and tubular stress -obstructive uropathy due to urinary retention CT scan abdomen negative for hydronephrosis metabolic acidosis due to VI and GI bicarbonate loss potassium to worsen with correction of acidosis normal baseline kidney function REC replace potassium change IVF to bicarbonate drip (D5 + 150 meq NaHco3) 100 cc/hr follow kidney function and electrolytes Time Spent With Patient Time: Total time spent is greater than 50% in coordination of care (as documented) at patient's floor/unit and/or counseling patient: Progress Note: Quality Stroke Does the patient have a stroke diagnosis?: No
--- NOTE | 2021-06-25 11:46 | CONS_ITS ---
DATE OF SERVICE: 06/24/2021 HISTORY OF PRESENT ILLNESS: This is a 65-year-old patient with normal baseline kidney function, who presented to the hospital with hypotension and is currently with worsening kidney function. In summary, the patient has a history of urine retention presented to urology office for suprapubic catheter placement and was noted to be hypotensive and subsequently sent to the emergency room for further evaluation. He reported that he has been having generalized weakness and diarrhea. There is no report of chest pain, shortness of breath, nausea, or vomiting. The patient's blood culture positive for gram-negative rods and review of his vital signs shows a low systolic blood pressure. PAST MEDICAL HISTORY: Remarkable for hypertension, history of CVA, hemiplegia, dyslipidemia, neurogenic bladder, paroxysmal atrial fibrillation, recurrent urinary tract infection, indwelling Walker catheter, history of C diff diarrhea. MEDICATIONS: As inpatient includes atorvastatin, amlodipine, magnesium, Keppra, naloxone, potassium, vancomycin. ALLERGIES: HE IS NOT ALLERGIC TO MEDICATIONS. SOCIAL HISTORY: Does not smoke. FAMILY HISTORY: Negative for kidney disease. REVIEW OF SYSTEMS: 10-point review of systems negative except as in History of Present Illness. PHYSICAL EXAMINATION: VITAL SIGNS: The blood pressure is 97/65, heart rate 68, respiratory rate 14, temperature 97.4. CONSTITUTIONAL: Looks stated age. No acute distress. NEUROLOGIC: Alert, awake. HEENT: Head is atraumatic, normocephalic. NECK: Supple. LUNGS: Clear to auscultation. CARDIOVASCULAR: S1, S2. No rub. ABDOMEN: Soft, nontender. EXTREMITIES: No peripheral edema. LABORATORY DATA: Showed a white count 13, hemoglobin 8.2, platelet count 155. Sodium 138, potassium 3, chloride 109, CO2 18, BUN 63, creatinine 3.54. IMPRESSION: 1. Acute kidney injury. 2. Hypokalemia. 3. Metabolic acidosis. This is a patient with acute kidney injury in the setting of gram-negative bacteremia and septic shock, who has been hypotensive. He has compromised kidney perfusion and tubular stress in addition to obstructive uropathy due to urine retention as he is noted urine in his bladder drain. There is a metabolic acidosis due to acute kidney injury and GI bicarbonate loss. He has normal baseline kidney function. I will check his urine sodium, replace his potassium, and he will require imaging study of his abdomen with a CT scan. I will continue with IV fluids and follow closely his kidney function and electrolytes. Thank you for allowing me to participate in the care of the patient. MD VERNELL Dailey/MARI / [phone]
--- NOTE | 2021-06-25 12:49 | PC.NURSE ---
pt placed in [facility]
--- NOTE | 2021-06-25 12:51 | PC.NURSE ---
ns 50ml/hr bolus increased to ns 150ml/hr per dr. torres.
--- NOTE | 2021-06-25 12:54 | PC.NURSE ---
1248 - vs -, no change in mentation, ns 250ml bolus initiated dr. torres aware.
--- NOTE | 2021-06-25 12:58 | PC.NURSE ---
1250 - vs 72/37-41 md aware. ns 1l bolus initiated. md aware.
[2021-06-25] MEDS: Albumin Human 25 % 100 ML IV ×6 (13:07→20:03)
[2021-06-25] MEDS: SODIUM CHLORIDE 2160 ML IV (13:10)
--- NOTE | 2021-06-25 13:13 | HO.PM.IMPN ---
Subjective Subjective Date of Service: 06/25/21 Interval History: Episode of hypotension noted. Sepsis protocol initiated; blood cultures x2 drawn along with lactate. Unable to reach primary contact Review of Systems Unable to obtain Physical Exam Vital Signs: Vital Signs: Last Vital Signs Temp 97.1 F 06/25/21 09:15 Pulse 44 L 06/25/21 13:12 Resp 12 06/25/21 12:57 BP 84/42 L 06/25/21 13:12 Pulse Ox 100 06/25/21 12:57 BMI result Body Mass Index 24.1 Const: Other: Somnolent. .. Minimally arousable Resp: Other: Clear to auscultation bilaterally no rales rhonchi wheezes Cardio: Other: No S4; positive S1-S2; no S3 murmurs rubs or gallops GI: Other: Soft nontender nondistended normoactive bowel sounds Extrem: Other: No edema bilaterally Objective Data Active Medications Acetaminophen (Acetaminophen 325 Mg Tablet) 650 mg PO Q4H PRN PRN Reason: fever/pain Last Admin: 06/25/21 09:18 Dose: 650 mg Documented by: CLARISSA Acetaminophen (Acetaminophen 325 Mg Tablet) 650 mg PO Q6H PRN PRN Reason: Pain, Mild (Pain Scale 1-3) Atorvastatin Calcium (Atorvastatin Calcium 80 Mg Tablet) 80 mg PO BEDTIME [facility] Last Admin: 06/24/21 21:50 Dose: 80 mg Documented by: CASTRO Benzonatate (Benzonatate 100 Mg Capsule) 100 mg PO TID PRN PRN Reason: Cough Gabapentin (Gabapentin 300 Mg Capsule) 300 mg PO BEDTIME [facility] Last Admin: 06/24/21 21:50 Dose: 300 mg Documented by: CASTRO Heparin Sodium (Porcine) (Heparin Sodium,Porcine 5,000 Unit/Ml Vial) 5,000 unit SUBCUT Q12H [facility] Last Admin: 06/25/21 09:18 Dose: 5,000 unit Documented by: CLARISSA Piperacillin Sod/Tazobactam (Sod 2.25 gm/ Sodium Chloride) 50 mls @ 100 mls/hr IV Q8H [facility] Last Infusion: 06/25/21 06:28 Dose: 0 mls/hr Documented by: CASTRO Sodium Chloride (Ns) 1,000 mls @ 50 mls/hr IVCONT .Q20H [facility] Last Admin: 06/24/21 19:25 Dose: 50 mls/hr Documented by: CASTRO Sodium Chloride (Ns) 2,160 mls @ 2,160 mls/hr 30 ml/kg infuse over 1 hr (2160 ml) IV .Q1H [facility] Stop: 06/25/21 13:54 Last Admin: 06/25/21 13:10 Dose: 2,160 mls/hr Documented by: CLARISSA Albumin Human (Kedbumin 25 %) 100 mls @ 100 mls/hr IV Q6H [facility] Stop: 06/26/21 07:59 Last Admin: 06/25/21 13:07 Dose: 100 mls/hr Documented by: CLARISSA Albumin Human (Kedbumin 25 %) 100 mls @ 100 mls/hr IV Q1H [facility] Stop: 06/25/21 15:14 Levetiracetam (Levetiracetam Oral Soln 500 Mg/5 Ml) 250 mg PO BID [facility] Last Admin: 06/25/21 09:17 Dose: 250 mg Documented by: CLARISSA Lidocaine (Lidocaine 4 % Patch Adh..Patch) 1 patch TRANSDERMA DAILY [facility] Last Admin: 06/25/21 09:19 Dose: 1 patch Documented by: CLARISSA Melatonin (Melatonin 3 Mg Tablet) 6 mg PO BEDTIME PRN PRN Reason: Insomnia Pharmacy Consult (Consult Rx Perform Med Rec) 1 each MISCELLANE ONCE PRN PRN Reason: Consult order Sodium Chloride (0.9 % Sodium Chloride Flush 3 Ml Syringe) 3 ml IVFLUSH QSHIFT [facility] Last Admin: 06/25/21 09:18 Dose: 3 ml Documented by: CLARISSA Tamsulosin HCl (Tamsulosin Hcl 0.4 Mg Capsule) 0.4 mg PO BEDTIME [facility] Last Admin: 06/24/21 21:50 Dose: 0.4 mg Documented by: CASTRO Vancomycin HCl (Vancomycin Hcl Oral Solution 125 Mg/5 Ml Soln.Recon) 125 mg PO Q6H [facility] Last Admin: 06/25/21 09:18 Dose: 125 mg Documented by: CLARISSA Labs CBC & Chem 7: 06/25/21 08:36 06/25/21 08:36 Labs: Laboratory Results - last 24 hr 06/24/21 06/25/21 06/25/21 23:13 08:36 08:36 MCV 98.6 H MCH 32.5 MCHC 33.0 RDW 14.6 Plt Count 173 MPV 9.5 Immature Gran % (Auto) 0.3 Neut % (Auto) 78.8 H Lymph % (Auto) 13.7 L [place] % (Auto) 6.2 Eos % (Auto) 0.8 Baso % (Auto) 0.2 Lymph # (Auto) 1.3 [place] # (Auto) 0.6 Eos # (Auto) 0.1 Baso # (Auto) 0.0 Abs Immat Gran (auto) 0.03 Absolute Neuts (auto) 7.3 Absolute Nucleated RBC 0.000 Nucleated RBC % (auto) 0.0 Anion Gap 18 Estim Creat Clear Calc 21.9 Estimated GFR 20 Fasting Glucose 73 D Calcium 8.2 L Total Bilirubin 0.7 AST 17 D ALT 22 Alkaline Phosphatase 68 Total Protein 5.2 L Albumin 2.6 L Ur Random Sodium 56.0 Microbiology Microbiology Results: Microbiology 06/23/21 15:02 Blood Culture - Preliminary Blood - Venous Gram negative thuan 06/23/21 19:28 Urine Culture - Preliminary Urine Catheterized - Walker Catheter Gram negative thuan Gram negative thuan#2 06/23/21 16:22 Blood Culture - Preliminary Blood - Venous No growth after 24 hours. Assessment and Plan (1) Septic shock: Status: Acute Plan 65-year-old male with a past medical history of hypertension, hyperlipidemia, history of CVA with residual right-sided deficits, chronic indwelling Walker, history of COVID-19 infection, decubitus ulcer, dysarthria, history of recurrent UTI, history of C diff diarrhea presented to the hospital with a chief complaint of hypotension and backdrop of recurrent UTI 1.Severe sepsis(UTI) -sepsis focused exam completed; protocol initiated secondary to hypotension -25% albumin x2 bottles ordered -Continue Zosyn..prelim 1/2 GNR -await cultures 2.Cdiff -PO Vanco -ID consult 3.VI -worsening with hypotension - 4..History of CVA -adjust diet as per speech recommendations -continue Keppra DVT prophylaxis: Subcu heparin Code status: Full code Will require ongoing hospitalization for reversal of sepsis and treatment of bacteremia Quality Stroke Does the patient have a stroke diagnosis?: No VTE Prior VTE?: No VTE Risk Level:: Medical - moderate - high VTE Device Contraindication: Treatment Not Indicated VTE Drug Contraindication: N/A - Med Ordered
[2021-06-25 13:35] LABS: Lactic Acid 1.4 mmol/L (0.5-2.0)
--- NOTE | 2021-06-25 13:41 | PC.NURSE ---
heplock # 20 placed to l ac.
--- NOTE | 2021-06-25 13:41 | PC.NURSE ---
Patient ate breakfast this morning. Patient ate 5.5 oz of yogurt, 5.5 oz of pureed peaches, 5.5 oz of pudding and 3.9 oz of apple sauce.
[2021-06-25] MEDS: Sodium Bicarbonate 8.4% 50 MEQ/50 ML SYRINGE IVPUSH (14:04)
--- NOTE | 2021-06-25 15:44 | P.PNCC_ITS ---
Subjective Subjective Date of Service: 06/25/21 Interval History: 65-year-old gentleman with underlying history of hypertension, hyperlipidemia, CVA with residual right-sided hemiplegia, chronic fully, to complete his ulcers, dysarthria, recurrent UTIs, C diff admitted on 06/23/2021 with hypotension and diarrhea. On ER evaluation patient hypotensive requiring IV fluid resuscitation, also with acute kidney injury. Was started on empiric antibiotics and admitted to general medical [facility]. Patient was evaluated by nephrology and infectious disease services. His hospital course was significant for recurrent hypertensive episode on 06/25/2021 with poor response to initial IV fluid, transferred to intensive care unit for further workup and management. Critical Care Time (minutes): 45 Physical Exam Vital Signs: Vital Signs: Last Vital Signs Temp 97.1 F 06/25/21 09:15 Pulse 80 06/25/21 15:08 Resp 14 06/25/21 15:08 BP 75/41 L 06/25/21 15:08 Pulse Ox 95 06/25/21 15:08 BMI result Body Mass Index 24.1 Const: General: no acute distress and lethargic Orientation/consciousness: lethargic Neck: Neck: Yes no lymphadenopathy, Yes trachea midline and Yes supple Resp: Effort & Inspection: normal respiratory effort and no respiratory d istress Auscultation: clear to auscultation bilaterally Cardio: Rate: regular rate Rhythm: regular rhythm Heart sounds: no gallops, no murmurs and no rubs GI: Palpation (GI): Soft to palpation and Other GI palpation findings present ( Nontender) Auscultation: normal bowel sounds Extrem: General: No clubbing, No cyanosis and Yes edema ( Trace bilateral) Objective Data Labs CBC & Chem 7: 06/25/21 08:36 06/25/21 08:36 Labs: Laboratory Results - last 24 hr 06/24/21 06/25/21 06/25/21 23:13 08:36 08:36 WBC 9.2 RBC 2.77 L Hgb 9.0 L Hct 27.3 L MCV 98.6 H MCH 32.5 MCHC 33.0 RDW 14.6 Plt Count 173 MPV 9.5 Immature Gran % (Auto) 0.3 Neut % (Auto) 78.8 H Lymph % (Auto) 13.7 L [place] % (Auto) 6.2 Eos % (Auto) 0.8 Baso % (Auto) 0.2 Lymph # (Auto) 1.3 [place] # (Auto) 0.6 Eos # (Auto) 0.1 Baso # (Auto) 0.0 Abs Immat Gran (auto) 0.03 Absolute Neuts (auto) 7.3 Absolute Nucleated RBC 0.000 Nucleated RBC % (auto) 0.0 Sodium 142 Potassium 3.0 L Chloride 113 H Carbon Dioxide 14 L Anion Gap 18 BUN 64 H Creatinine 3.20 H Estim Creat Clear Calc 21.9 Estimated GFR 20 Fasting Glucose 73 D Lactic Acid Calcium 8.2 L Total Bilirubin 0.7 AST 17 D ALT 22 Alkaline Phosphatase 68 Total Protein 5.2 L Albumin 2.6 L Ur Random Sodium 56.0 06/25/21 13:10 WBC RBC Hgb Hct MCV MCH MCHC RDW Plt Count MPV Immature Gran % (Auto) Neut % (Auto) Lymph % (Auto) [place] % (Auto) Eos % (Auto) Baso % (Auto) Lymph # (Auto) [place] # (Auto) Eos # (Auto) Baso # (Auto) Abs Immat Gran (auto) Absolute Neuts (auto) Absolute Nucleated RBC Nucleated RBC % (auto) Sodium Potassium Chloride Carbon Dioxide Anion Gap BUN Creatinine Estim Creat Clear Calc Estimated GFR Fasting Glucose Lactic Acid 1.4 Calcium Total Bilirubin AST ALT Alkaline Phosphatase Total Protein Albumin Ur Random Sodium Microbiology Microbiology Results: Microbiology 06/23/21 15:02 Blood - Venous Blood Culture - Preliminary Gram negative thuan 06/23/21 19:28 Urine Catheterized - Walker Catheter Urine Culture - Preliminary Gram negative thuan Gram negative thuan#2 06/23/21 16:22 Blood - Venous Blood Culture - Preliminary No growth after 24 hours. Progress Note: A&P Assessment and plan (1) History of CVA (cerebrovascular accident): Status: Acute (2) Urinary tract infection: Status: Acute (3) C. difficile diarrhea: Status: Acute (4) Neurogenic urinary bladder disorder: Status: Acute (5) Acute renal failure superimposed on stage 2 chronic kidney disease: Status: Acute (6) Pressure ulcer of sacral region, stage 2: Status: Acute (7) Decubitus ulcer of both heels, stage 1: Status: Acute Plan Assessment: 65-year-old gentleman with multiple medical issues including CVA with residual right-sided hemiplegia, neurogenic bladder, recurrent chronic Walker related UTI, COPD admitted with hypotension being treated for C diff and UTI Plan: Neuro: No acute issues. underlying residual right-sided hemiplegia, dysphagia, dysarthria after CVA Cardiac: Hypotension, likely secondary to intravascular volume depletion on the background of C diff and hypoalbuminemia. Continue with colloidal support Pulmonary: No acute issues. Renal: acute kidney injury on the background of chronic disease. Nephrology service care appreciated. Continue to monitor renal indices and urine output. Non oliguric. Endo: No acute issues. GI: C diff, continue p.o. vancomycin. ID: CD5 and Gram-negative UTI. Infectious Disease service care appreciated. Continue on p.o. vancomycin , IV Flagyl, and Zosyn. Heme/Onc: No acute issues. Psych: No acute issues. Miscellaneous: No acute issues. Prophylaxis: heparin Diet: pending swallow evaluation Critical care time spent: 45 minutes Quality Stroke Does the patient have a stroke diagnosis?: No VTE Prior VTE?: No VTE Risk Level:: Medical - moderate - high VTE Device Contraindication: Treatment Not Indicated VTE Drug Contraindication: N/A - Med Ordered
[2021-06-25] MEDS: metroNIDAZOLE/NS 500 MG/100 ML PIGGYBACK 100 MG IV (16:33)
[2021-06-25] MEDS: Lactated Ringers 1,000 ML 999 ML IV (16:35)
[2021-06-25 19:21] LABS: MANUAL DIFF FLAG NO
[2021-06-25 19:27] LABS: Basophils Percent Auto 0.2 % (0-2); Eosinophils Absolute Auto 0.1 X10*3/uL (0.0-0.4); Eosinophils Percent Auto 0.8 % (0-4); Hematocrit 23.8 % (42.0-52.0); Hemoglobin 7.8 g/dl (14.0-18.0); Imm Gran Abs Auto 0.03 X10*3/uL (0.00-0.03); Imm Gran Pct Auto 0.5 % (0.0-0.4); Lymphocytes Absolute Auto 0.9 X10*3/uL (1.2-4.9); Lymphocytes Percent Auto 13.1 % (20-40); Mean Corpuscular HGB Conc 32.8 g/dl (31.0-36.0); Mean Corpuscular Hemoglobin 32.1 pg (27.0-33.0); Mean Corpuscular Volume 97.9 fL (80.0-98.0); Mean Platelet Volume 9.5 fL (9.4-12.4); Monocytes Absolute Auto 0.4 X10*3/uL (0.1-1.2); Monocytes Percent Auto 6.2 % (2-11); Neutrophils Absolute Auto 5.3 x10*3/uL (2.0-8.3); Neutrophils Percent Auto 79.2 % (45-73); Platelet Count 156 X10*3/uL (160-400); Red Blood Count 2.43 X10*6/uL (4.60-5.80); Red Cell Distribution Width 14.6 % (11.0-16.0); White Blood Count 6.6 X10*3/uL (4.8-10.8)
[2021-06-25 19:43] LABS: Anion Gap 16 (12-20); Blood Urea Nitrogen 56 mg/dL (9-16); Carbon Dioxide 18 mmol/L (22-29); Chloride 114 mmol/L (96-108); Creatinine Clr Calc Pharmacy 26.7; Estimated Glomerular Filt Rate 24; Glucose Random 80 mg/dL (60-115); Magnesium 1.9 mg/dL (1.6-2.6); Phosphorus 4.1 mg/dL (2.7-4.5); Potassium 2.8 mmol/L (3.3-5.1); Sodium 145 mmol/L (135-145)
--- NOTE | 2021-06-25 20:09 | PC.NURSE ---
Second liter of Lactated Ringer's held at this time per AMINTA Miner d/t pt. being hypertensive
--- NOTE | 2021-06-25 20:20 | PC.NURSE ---
Pt. hypertensive at this time d/t masturbating. 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
[2021-06-25] MEDS: Potassium Chloride/H20 10 MEQ/100 ML PIGGYBACK 100 MEQ IV ×3 (20:28→22:59)
[2021-06-25] MEDS: Potassium Chloride Packet 20 MEQ PACKET 40 MEQ PO (20:38)
[2021-06-26] VITALS (18 sets, daily range): BP systolic 109–133; BP diastolic 56–81; PULSE 49–85; RESP 12–20; TEMP 36.5–36.8; O2SAT 95–98; BMI 25.0
[2021-06-26] MEDS: Potassium Chloride/H20 10 MEQ/100 ML PIGGYBACK 100 MEQ IV (00:06)
[2021-06-26] MEDS: 0.9 % Sodium Chloride Flush 3 ML SYRINGE IVFLUSH ×4 (00:06→23:09)
[2021-06-26] MEDS: metroNIDAZOLE/NS 500 MG/100 ML PIGGYBACK 100 MG IV ×3 (00:13→17:21)
[2021-06-26] MEDS: Albumin Human 25 % 100 ML IV ×2 (00:22→06:00)
[2021-06-26] MEDS: vancomycin HCL Oral Solution 125 MG/5 ML SOLN.RECON PO ×4 (03:14→23:08)
[2021-06-26] MEDS: Piperacillin Sodium/Tazobactam 2.25 GM in 0.9 % Sodium Chloride 50 ML IV (05:21)
[2021-06-26 05:51] LABS: VBG Base Excess -5.9 mmol/L; VBG HCO3 17 mmol/L (22-26); VBG pCO2 28 mmHg; VBG pO2 92 mmHg
[2021-06-26 05:59] LABS: MANUAL DIFF FLAG NO; Venous Blood Gas Refer to POC result
[2021-06-26 06:06] LABS: Basophils Percent Auto 0.2 % (0-2); Eosinophils Absolute Auto 0.1 X10*3/uL (0.0-0.4); Eosinophils Percent Auto 1.7 % (0-4); Hematocrit 23.3 % (42.0-52.0); Hemoglobin 7.9 g/dl (14.0-18.0); Imm Gran Abs Auto 0.02 X10*3/uL (0.00-0.03); Imm Gran Pct Auto 0.4 % (0.0-0.4); Lymphocytes Percent Auto 19.5 % (20-40); Mean Corpuscular HGB Conc 33.9 g/dl (31.0-36.0); Mean Corpuscular Hemoglobin 32.5 pg (27.0-33.0); Mean Corpuscular Volume 95.9 fL (80.0-98.0); Mean Platelet Volume 9.2 fL (9.4-12.4); Monocytes Absolute Auto 0.4 X10*3/uL (0.1-1.2); Monocytes Percent Auto 8.2 % (2-11); Neutrophils Absolute Auto 3.7 x10*3/uL (2.0-8.3); Platelet Count 152 X10*3/uL (160-400); Red Blood Count 2.43 X10*6/uL (4.60-5.80); Red Cell Distribution Width 14.5 % (11.0-16.0); White Blood Count 5.2 X10*3/uL (4.8-10.8)
[2021-06-26 06:44] LABS: Alanine Aminotransferase 16 U/L (0-40); Albumin Level 3.6 g/dL (3.5-5.0); Alkaline Phosphatase 55 U/L (39-117); Anion Gap 15 (12-20); Aspartate Amino Transferase 12 U/L (5-37); Bilirubin Total 0.7 mg/dL (0.0-1.0); Blood Urea Nitrogen 52 mg/dL (9-16); Calcium 8.6 mg/dL (8.4-10.2); Carbon Dioxide 17 mmol/L (22-29); Chloride 118 mmol/L (96-108); Creatinine Clr Calc Pharmacy 28.2; Estimated Glomerular Filt Rate 26; Glucose Random 90 mg/dL (60-115); Magnesium 1.9 mg/dL (1.6-2.6); Phosphorus 3.4 mg/dL (2.7-4.5); Potassium 3.4 mmol/L (3.3-5.1); Sodium 145 mmol/L (135-145); Total Protein 5.4 g/dL (6.5-8.0)
--- NOTE | 2021-06-26 08:33 | MHC.CLN ---
RECOMMEND ADDING ENSURE BID AND LAURA TO INCREASE KCALS AND PROMOTE WOUND HEALING FULL ASSESSMENT TO FOLLOW
[2021-06-26] MEDS: Heparin Sodium,Porcine 5,000 UNIT/ML VIAL 5000 UNIT SUBCUT ×2 (08:51→23:09)
[2021-06-26] MEDS: levETIRAcetam Oral Soln 500 MG/5 ML 250 MG PO ×2 (08:51→23:08)
--- NOTE | 2021-06-26 09:00 | PM.CCPN ---
Subjective Subjective Date of Service: 06/26/21 Interval History: 65-year-old gentleman with underlying history of hypertension, hyperlipidemia, CVA with residual right-sided hemiplegia, chronic fully, to complete his ulcers, dysarthria, recurrent UTIs, C diff admitted on 06/23/2021 with hypotension and diarrhea. On ER evaluation patient hypotensive requiring IV fluid resuscitation, also with acute kidney injury. Was started on empiric antibiotics and admitted to general medical [facility]. Patient was evaluated by nephrology and infectious disease services. His hospital course was significant for recurrent hypertensive episode on 06/25/2021 with poor response to initial IV fluid, transferred to intensive care unit for further workup and management. Blood pressure approved with crystalloid and colloidal support. No events overnight. Critical Care Time (minutes): 0 Physical Exam Vital Signs: Vital Signs: Last Vital Signs Temp 97.7 F 06/26/21 08:07 Pulse 80 06/26/21 08:59 Resp 12 06/26/21 08:59 BP 119/64 06/26/21 08:59 Pulse Ox 96 06/26/21 08:59 BMI result Body Mass Index 25.0 Const: General: no acute distress, alert, awake and other (Right-sided hemiplegia) Eyes: Sclerae: sclerae normal Neck: Neck: Yes no lymphadenopathy, Yes trachea midline and Yes supple Resp: Effort & Inspection: normal respiratory effort and no respiratory distress Auscultation: clear to auscultation bilaterally Cardio: Rate: regular rate Rhythm: regular rhythm Heart sounds: no gallops, no murmurs and no rubs GI: Palpation (GI): Soft to palpation and Other GI palpation findings present ( Nontender) Auscultation: normal bowel sounds Extrem: General: Yes no pedal edema, No clubbing and No cyanosis Objective Data Labs CBC & Chem 7: 06/26/21 05:46 06/26/21 05:46 Labs: Laboratory Results - last 24 hr 06/25/21 06/25/21 06/25/21 08:36 13:10 18:52 WBC 6.6 RBC 2.43 L Hgb 7.8 L Hct 23.8 L MCV 97.9 MCH 32.1 MCHC 32.8 RDW 14.6 Plt Count 156 L MPV 9.5 Immature Gran % (Auto) 0.5 H Neut % (Auto) 79.2 H Lymph % (Auto) 13.1 L [place] % (Auto) 6.2 Eos % (Auto) 0.8 Baso % (Auto) 0.2 Lymph # (Auto) 0.9 L [place] # (Auto) 0.4 Eos # (Auto) 0.1 Baso # (Auto) 0.0 Abs Immat Gran (auto) 0.03 Absolute Neuts (auto) 5.3 Absolute Nucleated RBC 0.000 Nucleated RBC % (auto) 0.0 VBG pH VBG pCO2 VBG pO2 VBG HCO3 VBG O2 Saturation VBG Base Excess Sodium 142 Potassium 3.0 L Chloride 113 H Carbon Dioxide 14 L Anion Gap 18 BUN 64 H Creatinine 3.20 H Estim Creat Clear Calc 21.9 Estimated GFR 20 Random Glucose Fasting Glucose 73 D Lactic Acid 1.4 Calcium 8.2 L Phosphorus Magnesium Total Bilirubin 0.7 AST 17 D ALT 22 Alkaline Phosphatase 68 Total Protein 5.2 L Albumin 2.6 L 06/25/21 06/26/21 06/26/21 18:52 05:42 05:46 WBC 5.2 RBC 2.43 L Hgb 7.9 L Hct 23.3 L MCV 95.9 MCH 32.5 MCHC 33.9 RDW 14.5 Plt Count 152 L MPV 9.2 L Immature Gran % (Auto) 0.4 Neut % (Auto) 70.0 Lymph % (Auto) 19.5 L [place] % (Auto) 8.2 Eos % (Auto) 1.7 Baso % (Auto) 0.2 Lymph # (Auto) 1.0 L [place] # (Auto) 0.4 Eos # (Auto) 0.1 Baso # (Auto) 0.0 Abs Immat Gran (auto) 0.02 Absolute Neuts (auto) 3.7 Absolute Nucleated RBC 0.000 Nucleated RBC % (auto) 0.0 VBG pH 7.40 VBG pCO2 28 VBG pO2 92 VBG HCO3 17 L VBG O2 Saturation 98.0 VBG Base Excess -5.9 Sodium 145 Potassium 2.8 L Chloride 114 H Carbon Dioxide 18 L Anion Gap 16 BUN 56 H Creatinine 2.63 H Estim Creat Clear Calc 26.7 Estimated GFR 24 Random Glucose 80 Fasting Glucose Lactic Acid Calcium 8.0 L Phosphorus 4.1 Magnesium 1.9 Total Bilirubin AST ALT Alkaline Phosphatase Total Protein Albumin 06/26/21 05:46 WBC RBC Hgb Hct MCV MCH MCHC RDW Plt Count MPV Immature Gran % (Auto) Neut % (Auto) Lymph % (Auto) [place] % (Auto) Eos % (Auto) Baso % (Auto) Lymph # (Auto) [place] # (Auto) Eos # (Auto) Baso # (Auto) Abs Immat Gran (auto) Absolute Neuts (auto) Absolute Nucleated RBC Nucleated RBC % (auto) VBG pH VBG pCO2 VBG pO2 VBG HCO3 VBG O2 Saturation VBG Base Excess Sodium 145 Potassium 3.4 D Chloride 118 H Carbon Dioxide 17 L Anion Gap 15 BUN 52 H Creatinine 2.49 H Estim Creat Clear Calc 28.2 Estimated GFR 26 Random Glucose 90 Fasting Glucose Lactic Acid Calcium 8.6 D Phosphorus 3.4 Magnesium 1.9 Total Bilirubin 0.7 AST 12 ALT 16 Alkaline Phosphatase 55 Total Protein 5.4 L Albumin 3.6 D Microbiology Microbiology Results: Microbiology 06/23/21 16:22 Blood - Venous Blood Culture - Preliminary No growth after 48 hours. 06/23/21 15:02 Blood - Venous Blood Culture - Preliminary Gram negative thuan 06/23/21 19:28 Urine Catheterized - Walker Catheter Urine Culture - Preliminary Gram negative thuan Gram negative thuan#2 Progress Note: A&P Assessment and plan (1) VI (acute kidney injury): Status: Acute (2) Metabolic acidosis: Status: Acute (3) History of CVA (cerebrovascular accident): Status: Acute (4) Urinary tract infection: Status: Acute (5) C. difficile diarrhea: Status: Acute (6) Dysarthria due to acute cerebellar cerebrovascular accident (CVA): Status: Acute Plan Assessment: 65-year-old gentleman with multiple medical issues including CVA with residual right-sided hemiplegia, neurogenic bladder, recurrent chronic Walker related UTI, COPD admitted with hypotension being treated for C diff and UTI Plan: Neuro: No acute issues. underlying residual right-sided hemiplegia, dysphagia, dysarthria after CVA Cardiac: Hypotension, likely secondary to intravascular volume depletion on the background of C diff and hypoalbuminemia, resolved with IV colloidal and crystalloid support. Pulmonary: No acute issues. Renal: Acute kidney injury on the background of chronic disease, improving Nephrology service care appreciated. Continue to monitor renal indices and urine output. Non oliguric. Endo: No acute issues. GI: C diff, continue p.o. vancomycin/IV Flagyl ID: C diff and Gram-negative UTI. Infectious Disease service care appreciated. Continue on p.o. vancomycin , IV Flagyl, and Zosyn. Heme/Onc: No acute issues. Psych: No acute issues. Miscellaneous: No acute issues. Prophylaxis: heparin Diet: pending swallow evaluation Quality Stroke Does the patient have a stroke diagnosis?: No VTE Prior VTE?: No VTE Risk Level:: Medical - moderate - high VTE Device Contraindication: Treatment Not Indicated VTE Drug Contraindication: N/A - Med Ordered
--- NOTE | 2021-06-26 11:18 | P.PNNP_ITS ---
Subjective Subjective Date of Service: 06/26/21 Interval history: seen and examined events reviewed Physical Exam Vital Signs: Vital Signs: Last Vital Signs Temp 97.7 F 06/26/21 08:07 Pulse 78 06/26/21 11:00 Resp 15 06/26/21 11:00 BP 126/73 06/26/21 11:00 Pulse Ox 98 06/26/21 11:00 BMI result Body Mass Index 25.0 Const: General: no acute distress HEENT: Head: Yes normocephalic and Yes atraumatic Neck: Neck: Yes supple Resp: Auscultation: diminished lung sounds Cardio: Heart sounds: S1 normal heart sound present and S2 normal heart sound present GI: Palpation (GI): Soft to palpation and nontender Extrem: General: Yes no pedal edema Objective Data Labs CBC & Chem 7: 06/26/21 05:46 06/26/21 05:46 Labs: Laboratory Results - last 24 hr 06/25/21 06/25/21 06/25/21 13:10 18:52 18:52 WBC 6.6 RBC 2.43 L Hgb 7.8 L Hct 23.8 L MCV 97.9 MCH 32.1 MCHC 32.8 RDW 14.6 Plt Count 156 L MPV 9.5 Immature Gran % (Auto) 0.5 H Neut % (Auto) 79.2 H Lymph % (Auto) 13.1 L [place] % (Auto) 6.2 Eos % (Auto) 0.8 Baso % (Auto) 0.2 Lymph # (Auto) 0.9 L [place] # (Auto) 0.4 Eos # (Auto) 0.1 Baso # (Auto) 0.0 Abs Immat Gran (auto) 0.03 Absolute Neuts (auto) 5.3 Absolute Nucleated RBC 0.000 Nucleated RBC % (auto) 0.0 VBG pH VBG pCO2 VBG pO2 VBG HCO3 VBG O2 Saturation VBG Base Excess Sodium 145 Potassium 2.8 L Chloride 114 H Carbon Dioxide 18 L Anion Gap 16 BUN 56 H Creatinine 2.63 H Estim Creat Clear Calc 26.7 Estimated GFR 24 Random Glucose 80 Lactic Acid 1.4 Calcium 8.0 L Phosphorus 4.1 Magnesium 1.9 Total Bilirubin AST ALT Alkaline Phosphatase Total Protein Albumin 06/26/21 06/26/21 06/26/21 05:42 05:46 05:46 WBC 5.2 RBC 2.43 L Hgb 7.9 L Hct 23.3 L MCV 95.9 MCH 32.5 MCHC 33.9 RDW 14.5 Plt Count 152 L MPV 9.2 L Immature Gran % (Auto) 0.4 Neut % (Auto) 70.0 Lymph % (Auto) 19.5 L [place] % (Auto) 8.2 Eos % (Auto) 1.7 Baso % (Auto) 0.2 Lymph # (Auto) 1.0 L [place] # (Auto) 0.4 Eos # (Auto) 0.1 Baso # (Auto) 0.0 Abs Immat Gran (auto) 0.02 Absolute Neuts (auto) 3.7 Absolute Nucleated RBC 0.000 Nucleated RBC % (auto) 0.0 VBG pH 7.40 VBG pCO2 28 VBG pO2 92 VBG HCO3 17 L VBG O2 Saturation 98.0 VBG Base Excess -5.9 Sodium 145 Potassium 3.4 D Chloride 118 H Carbon Dioxide 17 L Anion Gap 15 BUN 52 H Creatinine 2.49 H Estim Creat Clear Calc 28.2 Estimated GFR 26 Random Glucose 90 Lactic Acid Calcium 8.6 D Phosphorus 3.4 Magnesium 1.9 Total Bilirubin 0.7 AST 12 ALT 16 Alkaline Phosphatase 55 Total Protein 5.4 L Albumin 3.6 D Microbiology Microbiology Results: Microbiology 06/23/21 15:02 Blood - Venous Blood Culture - Final Klebsiella pneumoniae 06/23/21 19:28 Urine Catheterized - Walker Catheter Urine Culture - Preliminary Klebsiella pneumoniae Proteus mirabilis 06/23/21 16:22 Blood - Venous Blood Culture - Preliminary No growth after 48 hours. Procedures Date of Service Date of Service: 06/26/21 Assessment & Plan Assessment and plan (1) VI (acute kidney injury): Status: Acute (2) Metabolic acidosis: Status: Acute Plan Scr better multifactorial VI in the setting of gram negative bacteremia and septic shock (hypotensive) -compromised kidney perfusion and tubular stress -obstructive uropathy due to urinary retention CT scan abdomen negative for hydronephrosis metabolic acidosis due to VI and GI bicarbonate loss normal baseline kidney function REC continue IVF follow kidney function and electrolytes Time Spent With Patient Time: Total time spent is greater than 50% in coordination of care (as documented) at patient's floor/unit and/or counseling patient: Progress Note: Quality Stroke Does the patient have a stroke diagnosis?: No
[2021-06-26] MEDS: cefTRIAXone sodium 1 GM in 0.9 % Sodium Chloride 50 ML IV (11:26)
--- NOTE | 2021-06-26 12:39 | PC.NURSE ---
Addendum entered by Charlette Raymundo RN 06/26/21 18:39: VOICEMAIL LEFT TO DAVID LOUIE CMAPOS USING FITNESS SALES CONSULTANT ON ROOM CHANGE TO 457. Original Note: FAMILY UPDATED BY THIS RN WITH FITNESS SALES CONSULTANT.
--- NOTE | 2021-06-26 14:20 | P.CDIC_ITS ---
CDI Concurrent Query Documentation Clarification: PHYSICIAN'S DOCUMENTATION REQUEST Date of Query: 06/26/21 1420 Patient Name: Wyatt Bear Admit Date: 06/23/21 Dear Doctor, A review of the medical record indicates additional documentation may be needed. Please review below and update the Risk Factors/Clinical Indicators/Treatments was slated for short stay surgery for suprapubic catheter given recurrent clogging of Finley catheter. Has Finley catheter with pus, had been clogged and replaced 06/23/21: Urine Catheterized - Finley Cat heter ? Urine Culture - Preliminary ? Klebsiella pneumoniae ? Proteus mirabilis Per H&P: UTI Please clarify the relationship between these conditions: * Yes, UTI is related to / associated with / due to Finley catheter * No, UTI is not related to / associated with / due to Finley catheter * Unable to determine Use of terms such as suspected, likely, concern for, or probable (associated with a specific diagnosis that is being evaluated, monitored, or treated as if it exists) are acceptable and can be coded in the inpatient setting, when documented at the time of discharge. Thank you, Feli Hansen RN Extension: [phone] Please use your independent medical judgment in providing your response. THIS QUERY IS PART OF THE PERMANENT MEDICAL RECORD Provider Response: Other (UTI chronic finley related present on admission) Other Diagnosis: UTI chronic finley related present on admission
--- NOTE | 2021-06-26 16:57 | MHC.SL.SWA ---
Speech Pathologist Impression: Risk of Aspiration Due to: Neurological Condition Reduced Cognition Dysphasia Diet Status: Recommend continue with PUREED (NDD1) solids and NECTAR THICK liquids, with pills CRUSHED in PUREE. Continue 1:1 assistance and aspiration precautions. Liquid Consistency and Strategies for Safe Swallow: Liquid Intake Recommendation: [place] Thick Liquid Intake Strategies: No Straws Liquids by Teaspoon Only Solid Food Consistency: Dietary Recommendations: Pureed (NDD1) Additional Modifications to Solid Foods: Pt requires full assist for all meals, liquids by TSP only, NO STRAWS. Do not attempt if PT is lethargic, not engaged in having meal. Oral Medication Intake: Crushed with Puree Please contact the pharmacy regarding appropriate crushable or liquid drug formulations that are available whenever modified delivery is recommended. Compensatory Strategies and Precautions to be Taken for Safe Swallow: Sitting Upright (90 deg) No Straw Liquids from Spoon Small Bites and Sips Alternate Liquids/Solids Rate of Ingestion Change Oral Check Supervision While Eating and Drinking for Safe Swallow: Total Assistance (1:1) Foods to Avoid: Swallowing Recommended Treatments: Compens. Strategy Educat. Recommendation for Speech: Inpatient Speech Therapy Comment: Pt is now in ICU, was seen during his lunch to assess toleration of diet, re-assess swallow. Pt was sleeping at first but was awake after repositioning the head of the bed to 90 Degrees, and introducing the lunch tray. Pt indicated he was ready to eat by opening his mouth as food was offered. He stayed non-verbal throughout the meal. Pt took forkfuls of mashed potatoes, pureed carrots and gravy, with slightly maladaptive oral phase w/tongue pumping noted, consistent timely swallow with mildly reduced laryngeal elevation. Pt occasionally had some residual puree in mouth after swallow which was cleared with sip on nectar thick liquid. Food and liquid was alternated through meal, with no clinical signs of aspiration on puree consistency or [place] Thick liquid by tsp. Pt needed full assist throughout meal, but remained engaged and focused throughout, tolerated meal presented well. Pt is tolerated PUREE (NDD1) w/NECTAR THICK liquids, w/ no clinical s/s aspiration. Recommend continue on PUREE (NDD1) w/ NECTAR THICK liquids, pills CRUSHED in PUREE. Frequency/Duration: GEOTECHNICAL INTERN will follow M-F for toleration of diet, re-assessment of swallow, upgrades if warranted. Date Range for Service Req: Timeline to reassess: Community Services Manager Clinican/Clinical Fellow: No Supervisory Statement: I have reviewed and agree with the student/clinical fellow's documentation: N/A Speech Language Pathologist: Anni Lloyd M.A., CCC-GEOTECHNICAL INTERN
[2021-06-27] MEDS: metroNIDAZOLE/NS 500 MG/100 ML PIGGYBACK 100 MG IV ×3 (00:37→15:46)
[2021-06-27] MEDS: vancomycin HCL Oral Solution 125 MG/5 ML SOLN.RECON PO ×4 (02:43→19:58)
[2021-06-27 03:06] VITALS: BP 131/76; PULSE 67; RESP 20; TEMP 36.5; O2SAT 98
[2021-06-27 05:54] VITALS: BMI 24.7
[2021-06-27 07:09] LABS: MANUAL DIFF FLAG NO
[2021-06-27 07:13] LABS: Basophils Percent Auto 0.4 % (0-2); Eosinophils Absolute Auto 0.1 X10*3/uL (0.0-0.4); Eosinophils Percent Auto 1.2 % (0-4); Hematocrit 24.1 % (42.0-52.0); Hemoglobin 7.9 g/dl (14.0-18.0); Imm Gran Abs Auto 0.02 X10*3/uL (0.00-0.03); Imm Gran Pct Auto 0.4 % (0.0-0.4); Lymphocytes Absolute Auto 1.4 X10*3/uL (1.2-4.9); Lymphocytes Percent Auto 27.3 % (20-40); Mean Corpuscular HGB Conc 32.8 g/dl (31.0-36.0); Mean Corpuscular Hemoglobin 31.7 pg (27.0-33.0); Mean Corpuscular Volume 96.8 fL (80.0-98.0); Mean Platelet Volume 9.7 fL (9.4-12.4); Monocytes Absolute Auto 0.6 X10*3/uL (0.1-1.2); Monocytes Percent Auto 10.8 % (2-11); Neutrophils Absolute Auto 3.1 x10*3/uL (2.0-8.3); Neutrophils Percent Auto 59.9 % (45-73); Platelet Count 173 X10*3/uL (160-400); Red Blood Count 2.49 X10*6/uL (4.60-5.80); Red Cell Distribution Width 14.6 % (11.0-16.0); White Blood Count 5.1 X10*3/uL (4.8-10.8)
[2021-06-27 07:25] VITALS: BP 133/75; PULSE 64; RESP 17; TEMP 36.5; O2SAT 99
[2021-06-27 07:46] LABS: Albumin Level 3.5 g/dL (3.5-5.0); Anion Gap 11 (12-20); Blood Urea Nitrogen 45 mg/dL (9-16); Calcium 8.7 mg/dL (8.4-10.2); Carbon Dioxide 19 mmol/L (22-29); Chloride 120 mmol/L (96-108); Creatinine Clr Calc Pharmacy 32.5; Estimated Glomerular Filt Rate 31; Glucose Random 119 mg/dL (60-115); Magnesium 1.9 mg/dL (1.6-2.6); Phosphorus 2.9 mg/dL (2.7-4.5); Potassium 3.2 mmol/L (3.3-5.1); Sodium 147 mmol/L (135-145)
[2021-06-27] MEDS: levETIRAcetam Oral Soln 500 MG/5 ML 250 MG PO ×2 (09:27→19:58)
[2021-06-27] MEDS: 0.9 % Sodium Chloride Flush 3 ML SYRINGE IVFLUSH ×2 (09:32→15:45)
[2021-06-27 09:42] VITALS: BMI 24.7
--- NOTE | 2021-06-27 09:46 | MHC.CLN ---
RE: CONSULT PT WITH INCREASED NUTRITION RISK R/T PRESSURE INJURY PO INTAKE 75-100% DIET RX: PUREED WITH NT LIQ-APPROPRIATE PT RECEIVING ENSURE BID AND LAURA BID TO INCREASE KCALS AND PROMOTE WOUND HEALING SUPP PROVIDES 860KCALS, 45G PROTEIN MONITOR PO INTAKE CLOSELY SEE ALSO FULL CLINICAL NUTRITION ASSESSMENT
[2021-06-27] MEDS: Lactated Ringers 1,000 ML 125 ML IVCONT ×2 (10:18→19:58)
[2021-06-27] MEDS: Heparin Sodium,Porcine 5,000 UNIT/ML VIAL 5000 UNIT SUBCUT ×2 (10:18→19:57)
--- NOTE | 2021-06-27 10:50 | MHC.SLORD ---
Speech Language Pathology Order Status: INFORMATION ARCHITECT discussed POC with the [facility] staff and agreed to remain on thickened liquids for safety of swallow. He may have the thin liquid medications which are scant as they are tolerated without issues.INFORMATION ARCHITECT to continue to follow should advancement be deemed necessary.
[2021-06-27] MEDS: cefTRIAXone sodium 1 GM in 0.9 % Sodium Chloride 50 ML IV (11:50)
[2021-06-27 11:54] LABS: Glucose, Whole Blood 114 mg/dL (60-115)
[2021-06-27 12:00] VITALS: BP 123/73; PULSE 80; RESP 17; TEMP 36.5; O2SAT 98
--- NOTE | 2021-06-27 12:09 | P.PNNP_ITS ---
Subjective Subjective Date of Service: 06/27/21 Interval history: seen and examined events reviewed Physical Exam Vital Signs: Vital Signs: Last Vital Signs Temp 97.7 F 06/27/21 07:25 Pulse 64 06/27/21 07:25 Resp 17 06/27/21 07:25 BP 133/75 06/27/21 07:25 Pulse Ox 99 06/27/21 07:25 BMI result Body Mass Index 24.7 Const: General: no acute distress HEENT: Head: Yes normocephalic and Yes atraumatic Neck: Neck: Yes supple Resp: Auscultation: diminished lung sounds Cardio: Heart sounds: S1 normal heart sound present and S2 normal heart sound present GI: Palpation (GI): Soft to palpation and nontender Extrem: General: Yes no pedal edema Objective Data Labs CBC & Chem 7: 06/27/21 06:37 06/27/21 06:37 Labs: Laboratory Results - last 24 hr 06/27/21 06/27/21 06/27/21 06:37 06:37 11:18 WBC 5.1 RBC 2.49 L Hgb 7.9 L Hct 24.1 L MCV 96.8 MCH 31.7 MCHC 32.8 RDW 14.6 Plt Count 173 MPV 9.7 Immature Gran % (Auto) 0.4 Neut % (Auto) 59.9 Lymph % (Auto) 27.3 [place] % (Auto) 10.8 Eos % (Auto) 1.2 Baso % (Auto) 0.4 Lymph # (Auto) 1.4 [place] # (Auto) 0.6 Eos # (Auto) 0.1 Baso # (Auto) 0.0 Abs Immat Gran (auto) 0.02 Absolute Neuts (auto) 3.1 Absolute Nucleated RBC 0.000 Nucleated RBC % (auto) 0.0 Sodium 147 H Potassium 3.2 L Chloride 120 H Carbon Dioxide 19 L Anion Gap 11 L BUN 45 H Creatinine 2.16 H Estim Creat Clear Calc 32.5 Estimated GFR 31 POC Glucose 114 Random Glucose 119 H Calcium 8.7 Phosphorus 2.9 Magnesium 1.9 Albumin 3.5 Microbiology Microbiology Results: Microbiology 06/23/21 19:28 Urine Catheterized - Walker Catheter Urine Culture - Preliminary Klebsiella pneumoniae Proteus mirabilis 06/25/21 13:03 Blood - Venous Blood Culture - Preliminary No growth after 24 hours. 06/25/21 13:10 Blood - Venous Blood Culture - Preliminary No growth after 24 hours. 06/23/21 15:02 Blood - Venous Blood Culture - Final Klebsiella pneumoniae 06/23/21 16:22 Blood - Venous Blood Culture - Preliminary No growth after 48 hours. Procedures Date of Service Date of Service: 06/27/21 Assessment & Plan Assessment and plan (1) VI (acute kidney injury): Status: Acute (2) Metabolic acidosis: Status: Acute Plan kidney function improving multifactorial VI in the setting of gram negative bacteremia and septic shock (hypotensive) -compromised kidney perfusion and tubular stress -obstructive uropathy due to urinary retention CT scan abdomen negative for hydronephrosis metabolic acidosis due to VI and GI bicarbonate loss normal baseline kidney function REC avoid hypotension IVF follow kidney function and electrolytes Time Spent With Patient Time: Total time spent is greater than 50% in coordination of care (as documented) at patient's floor/unit and/or counseling patient: Progress Note: Quality Stroke Does the patient have a stroke diagnosis?: No
--- NOTE | 2021-06-27 12:20 | MHC.CM.PN ---
per rounds pt may be dcd todaypt from [facility]
--- NOTE | 2021-06-27 13:50 | MHC.CM.PN ---
pt to go back to [facility] today at 5 pts son cristina notified of dc
--- NOTE | 2021-06-27 13:55 | P.DS_ITS ---
DS: Providers Provider Date of Service: 06/27/21 Date of admission: 06/23/21 20:43 Primary care physician: Lorraine Wiley MD Consults: 06/23/21 20:46 Consult to Infectious Diseases Routine Consulting Provider: Kelsey Benitez Reason for consultation: uti/c diff Consult to Urology Routine Consulting Provider: Hardeep Sevilla Reason for consultation: UTI; chronic finley 06/23/21 23:37 Consult to Nephrology Routine Consulting Provider: Eugene Reyna Reason for consultation: vi DS: Diagnosis Discharge Diagnosis (1) VI (acute kidney injury): Status: Acute (2) Metabolic acidosis: Status: Acute DS: Summary Hospital Course Hospital Course: 65-year-old male with a past medical history of hypertension, hyperlipidemia, history of CVA with residual right-sided deficits, chronic indwelling Finley, history of COVID-19 infection, decubitus ulcer, dysarthria, history of recurrent UTI, history of C diff diarrhea presented to the hospital with a chief complaint of hypotension.? Patient initially presented to the Urology office for suprapubic catheter placement given his chronic indwelling Finley has recurrent clogging.? Patient was noted to be hypotensive at the clinic and subsequently sent to the ER for further evaluation.? Patient is a poor historian.? Reportedly patient has been having generalized weakness and diarrhea.? Has been on p.o. vancomycin for C diff.? Patient denies any chest pain or palpitations.? Denies any fever chills cough.? Review of all other systems is limited.? ER course: Per ER team patient on presentation noted to have low blood pressure with systolic in 80s; patient was given aggressive IV hydration.? Later patient was noted to have significant urinary retention with bladder scan showing greater than 1000 cc of urine.? Finley catheter was clogged.? Finley was replaced and bladder was irrigated-noted extensive pyuria.? Patient was started on IV Zosyn.? Also continued p.o. vanc given positive C diff. On labs noted to have severe VI with creatinine of 4.0.? Admitted for further management. Hospital course Patient admitted to [facility] and continued on oral vancomycin for C diff. started on empiric ceftriaxone and Flagyl. On day 3 of admission patient became extremely hypotensive. Sepsis protocol was initiated IV boluses were given along with albumin. He was seen in consultation by Critical Care admitted to ICU for 24 hours. He did not require pressors and was transferred back to the floor. This a.m. he is back to his baseline eating 100% of his meals with a cyst. Cultures grew out Klebsiella with Proteus. ID was consulted and advised Ceftin p.o. b.i.d. for 10 days. He will need to continue his vanco for 48 hours after Ceftin is complete Time Spent with Patient Time attestation: Total time spent providing and/or coordinating discharge services: Discharge coordination time: Greater than 30 minutes Quality: Safe Use of Opioids Does Pt have an Active Cancer Diagnosis on the Problem List?: No Quality: Stroke Does the patient have a stroke diagnosis?: No Physical Exam Vital Signs: Vital Signs: Last Vital Signs Temp 97.7 F 06/27/21 12:00 Pulse 80 06/27/21 12:00 Resp 17 06/27/21 12:00 BP 123/73 06/27/21 12:00 Pulse Ox 98 06/27/21 12:00 BMI result Body Mass Index 24.7 Const: Other: Somnolent. .. Minimally arousable Resp: Other: Clear to auscultation bilaterally no rales rhonchi wheezes Cardio: Other: No S4; positive S1-S2; no S3 murmurs rubs or gallops GI: Other: Soft nontender nondistended normoactive bowel sounds Extrem: Other: No edema bilaterally DS: Data Data Completed and Pending Labs on day of discharge: Laboratory Results - last 24 hr 06/27/21 06/27/21 06/27/21 06:37 06:37 11:18 WBC 5.1 RBC 2.49 L Hgb 7.9 L Hct 24.1 L MCV 96.8 MCH 31.7 MCHC 32.8 RDW 14.6 Plt Count 173 MPV 9.7 Immature Gran % (Auto) 0.4 Neut % (Auto) 59.9 Lymph % (Auto) 27.3 [place] % (Auto) 10.8 Eos % (Auto) 1.2 Baso % (Auto) 0.4 Lymph # (Auto) 1.4 [place] # (Auto) 0.6 Eos # (Auto) 0.1 Baso # (Auto) 0.0 Abs Immat Gran (auto) 0.02 Absolute Neuts (auto) 3.1 Absolute Nucleated RBC 0.000 Nucleated RBC % (auto) 0.0 Sodium 147 H Potassium 3.2 L Chloride 120 H Carbon Dioxide 19 L Anion Gap 11 L BUN 45 H Creatinine 2.16 H Estim Creat Clear Calc 32.5 Estimated GFR 31 POC Glucose 114 Random Glucose 119 H Calcium 8.7 Phosphorus 2.9 Magnesium 1.9 Albumin 3.5 Preliminary micro results at discharge 06/23/21 19:28 Urine Culture - Preliminary Urine Catheterized - Finley Catheter Klebsiella pneumoniae Proteus mirabilis 06/25/21 13:03 Blood Culture - Preliminary Blood - Venous No growth after 24 hours. 06/25/21 13:10 Blood Culture - Preliminary Blood - Venous No growth after 24 hours. 06/23/21 16:22 Blood Culture - Preliminary Blood - Venous No growth after 48 hours. Discharge Plan Discharge Patient Disposition: [facility] Discharge Diagnosis: Acute UTI Referrals: [facility] [Other] - 1 Week Lorraine Wiley MD [Primary Care Provider] - 1 Week Discharge Medications: New cefuroxime axetil 500 mg tablet 500 mg PO BID 10 Days Qty: 20 0RF Continued (DME) wet wipes See Rx Instructions .ROUTE .MEDSUPPLY Qty: 5 3RF Rx Instructions: As directed (DME) miscellaneous medical supply Misc See Rx Instructions .ROUTE .MEDSUPPLY Qty: 1 0RF Rx Instructions: Full Electric Hospital Bed. DX: G81.91, I63.9, R13.10, I67.89; Daily, Duration: 999days/Lifetime. (DME) miscellaneous medical supply Misc See Rx Instructions .ROUTE .MEDSUPPLY Qty: 1 0RF Rx Instructions: Gait Belt, Dx: G81.91, I67.89. As Directed, Duration: 999 Days/Lifetime (DME) miscellaneous medical supply Misc See Rx Instructions .ROUTE .MEDSUPPLY Qty: 1 0RF Rx Instructions: Rosita Lift, DX: G81.91, I67.89. As directed, Duration: 999 days/Lifetime. (DME) miscellaneous medical supply Misc See Rx Instructions .ROUTE .MEDSUPPLY Qty: 1 0RF Rx Instructions: Tilt in Space Wheelchair, DX: G81.91, I67.89, R13.10, Z99.3. As directed, Duration: 999 days/Lifetime. atorvastatin 80 mg tablet 80 mg PO BEDTIME 0RF levetiracetam 100 mg/mL solution 2.5 ml PO BID 0RF naloxone 4 mg/actuation [place],Non-Aerosol 4 mg INTRANASAL ONCE PRN (Reason: Opioid Overdose) 0RF lidocaine 5 % adhesive patch,medicated 1 patch topical DAILY 0RF Rx Instructions: apply to right upper arm acetaminophen 325 mg Tablet 650 mg PO Q4H PRN (Reason: fever/pain) 0RF calcium carbonate-vitamin D3 600 mg-5 mcg (200 unit) Tablet 1 tab PO BID 0RF magnesium hydroxide [Milk of Magnesia] 400 mg/5 mL Suspension 30 ml PO DAILY PRN (Reason: Constipation) 0RF bisacodyl 10 mg Suppository 10 mg IN DAILY PRN (Reason: Constipation) 0RF magnesium citrate [Citrate of Magnesia] Solution 300 ml PO DAILY PRN (Reason: Constipation) 0RF potassium chloride 20 mEq tablet,ER particles/crystals 1 tab PO DAILY 0RF Firvanq 25 mg/mL recon soln 125 mg PO TID 0RF losartan 100 mg tablet 100 mg PO DAILY 90 Days Qty: 90 4RF gabapentin 300 mg capsule 300 mg PO BEDTIME 30 Days Qty: 30 0RF (DME) miscellaneous medical supply Misc See Rx Instructions .ROUTE .MEDSUPPLY Qty: 1 0RF Rx Instructions: RUE resting hand Splint/Sling As directed, Dx: G81.91, I67.89, duration 999 days/life time tamsulosin 0.4 mg capsule 0.4 mg PO BEDTIME 90 Days Qty: 90 1RF amlodipine 5 mg tablet 5 mg PO DAILY 0RF Discharge Orders: Discharge Order (Routine); Ordered 06/27/21 Ordered By: Demetri De La Paz Diet: advance to usual diet Activity on Discharge: As tolerated Stand Alone Forms: Patient Portal Discharge page Care Plan Goals: Complete course of Ceftin Health Concerns: Resume previous care plan Plan of Treatment: Maintain highest level of function Assessment: See discharge summary
[2021-06-27 15:54] VITALS: BP 155/93; PULSE 76; RESP 19; TEMP 36.6; O2SAT 99
[2021-06-27 17:03] LABS: COVID-19 Test Invalid (Negative)
[2021-06-27 19:21] VITALS: BP 172/95; PULSE 71; RESP 20; TEMP 37; O2SAT 98
[2021-06-27 23:47] VITALS: BP 143/80; PULSE 68; RESP 20; TEMP 37.1; O2SAT 98
[2021-06-28] MEDS: metroNIDAZOLE/NS 500 MG/100 ML PIGGYBACK 100 MG IV ×3 (00:30→15:43)
[2021-06-28] MEDS: 0.9 % Sodium Chloride Flush 3 ML SYRINGE IVFLUSH ×3 (00:30→15:44)
[2021-06-28] MEDS: Lactated Ringers 1,000 ML 125 ML IVCONT ×2 (02:31→10:53)
[2021-06-28] MEDS: vancomycin HCL Oral Solution 125 MG/5 ML SOLN.RECON PO ×4 (02:31→21:47)
[2021-06-28 03:11] VITALS: BP 166/88; PULSE 71; RESP 20; TEMP 36.6; O2SAT 97
[2021-06-28 05:58] VITALS: BMI 24.0
[2021-06-28 07:43] VITALS: BP 170/82; PULSE 64; RESP 17; TEMP 36.4; O2SAT 94
[2021-06-28] MEDS: Heparin Sodium,Porcine 5,000 UNIT/ML VIAL 5000 UNIT SUBCUT ×2 (09:34→21:47)
[2021-06-28] MEDS: levETIRAcetam Oral Soln 500 MG/5 ML 250 MG PO ×2 (09:34→21:47)
[2021-06-28] MEDS: cefTRIAXone sodium 1 GM in 0.9 % Sodium Chloride 50 ML IV (11:05)
[2021-06-28 11:08] VITALS: BP 168/76; PULSE 76; RESP 18; TEMP 36.2; O2SAT 97
--- NOTE | 2021-06-28 13:57 | PM.PNNEP ---
Subjective Subjective Date of Service: 06/28/21 Interval history: seen and examined events reviewed Physical Exam Vital Signs: Vital Signs: Last Vital Signs Temp 97.2 F 06/28/21 11:08 Pulse 76 06/28/21 11:08 Resp 18 06/28/21 11:08 BP 168/76 H 06/28/21 11:08 Pulse Ox 97 06/28/21 11:08 BMI result Body Mass Index 24.0 Const: General: no acute distress HEENT: Head: Yes normocephalic and Yes atraumatic Neck: Neck: Yes supple Resp: Auscultation: diminished lung sounds Cardio: Heart sounds: S1 normal heart sound present and S2 normal heart sound present GI: Palpation (GI): Soft to palpation and nontender Extrem: General: Yes no pedal edema Objective Data Labs CBC & Chem 7: 06/27/21 06:37 06/27/21 06:37 Labs: Laboratory Results - last 24 hr 06/27/21 14:20 COVID-19 (GISELLE) Invalid COVID-19 Clin Com See Note Microbiology Microbiology Results: Microbiology 06/25/21 13:10 Blood - Venous Blood Culture - Preliminary No growth after 48 hours. 06/25/21 13:03 Blood - Venous Blood Culture - Preliminary No growth after 48 hours. 06/23/21 19:28 Urine Catheterized - Walker Catheter Urine Culture - Preliminary Klebsiella pneumoniae Proteus mirabilis 06/23/21 15:02 Blood - Venous Blood Culture - Final Klebsiella pneumoniae 06/23/21 16:22 Blood - Venous Blood Culture - Preliminary No growth after 48 hours. Procedures Date of Service Date of Service: 06/28/21 Assessment & Plan Assessment and plan (1) VI (acute kidney injury): Status: Acute (2) Metabolic acidosis: Status: Acute Plan multifactorial VI in the setting of gram negative bacteremia and septic shock (hypotensive) -compromised kidney perfusion and tubular stress -obstructive uropathy due to urinary retention CT scan abdomen negative for hydronephrosis metabolic acidosis due to VI and GI bicarbonate loss normal baseline kidney function REC reduce IVF rate to 75 cc/hr follow kidney function and electrolytes Time Spent With Patient Time: Total time spent is greater than 50% in coordination of care (as documented) at patient's floor/unit and/or counseling patient: Progress Note: Quality Stroke Does the patient have a stroke diagnosis?: No
--- NOTE | 2021-06-28 15:30 | HO.PM.IMPN ---
Subjective Subjective Date of Service: 06/28/21 Interval History: No acute issues overnight Review of Systems Unable to obtain Physical Exam Vital Signs: Vital Signs: Last Vital Signs Temp 97.2 F 06/28/21 11:08 Pulse 76 06/28/21 11:08 Resp 18 06/28/21 11:08 BP 168/76 H 06/28/21 11:08 Pulse Ox 97 06/28/21 11:08 BMI result Body Mass Index 24.0 Const: Other: Somnolent. .. Minimally arousable Resp: Other: Clear to auscultation bilaterally no rales rhonchi wheezes Cardio: Other: No S4; positive S1-S2; no S3 murmurs rubs or gallops GI: Other: Soft nontender nondistended normoactive bowel sounds Extrem: Other: No edema bilaterally Objective Data Active Medications Acetaminophen (Acetaminophen 325 Mg Tablet) 650 mg PO Q6H PRN PRN Reason: Pain, Mild (Pain Scale 1-3) Heparin Sodium (Porcine) (Heparin Sodium,Porcine 5,000 Unit/Ml Vial) 5,000 unit SUBCUT Q12H [facility] Last Admin: 06/28/21 09:34 Dose: 5,000 unit Documented by: SANJU Metronidazole (Flagyl) 500 mg in 100 mls @ 100 mls/hr IV Q8H [facility] Last Infusion: 06/28/21 10:51 Dose: 0 mls/hr Documented by: SANJU Ceftriaxone Sodium 1 gm/ (Sodium Chloride) 50 mls @ 100 mls/hr IV Q24H [facility] Last Infusion: 06/28/21 11:44 Dose: 0 mls/hr Documented by: SANJU Lactated Ringer's (Lr) 1,000 mls @ 75 mls/hr IVCONT .[id number] [facility] Levetiracetam (Levetiracetam Oral Soln 500 Mg/5 Ml) 250 mg PO BID [facility] Last Admin: 06/28/21 09:34 Dose: 250 mg Documented by: SANJU Pharmacy Consult (Consult Rx Perform Med Rec) 1 each MISCELLANE ONCE PRN PRN Reason: Consult order Sodium Chloride (0.9 % Sodium Chloride Flush 3 Ml Syringe) 3 ml IVFLUSH QSHIFT [facility] Last Admin: 06/28/21 09:34 Dose: 3 ml Documented by: SANJU Vancomycin HCl (Vancomycin Hcl Oral Solution 125 Mg/5 Ml Soln.[place]az) 125 mg PO Q6H [facility] Last Admin: 06/28/21 09:34 Dose: 125 mg Documented by: SANJU Labs CBC & Chem 7: 06/27/21 06:37 06/27/21 06:37 Labs: Laboratory Results - last 24 hr 06/27/21 14:20 COVID-19 (GISELLE) Invalid COVID-19 Clin Com See Note Microbiology Microbiology Results: Microbiology 06/25/21 13:10 Blood Culture - Preliminary Blood - Venous No growth after 48 hours. 06/25/21 13:03 Blood Culture - Preliminary Blood - Venous No growth after 48 hours. Assessment and Plan (1) Acute UTI: Status: Acute (2) C. difficile diarrhea: Status: Acute (3) VI (acute kidney injury): Status: Acute Plan 65-year-old male with a past medical history of hypertension, hyperlipidemia, history of CVA with residual right-sided deficits, chronic indwelling Walker, history of COVID-19 infection, decubitus ulcer, dysarthria, history of recurrent UTI, history of C diff diarrhea presented to the hospital with a chief complaint of hypotension and backdrop of recurrent UTI 1.UTI(Klebsiella) -continue Zosyn -await cultures 2.Cdiff -PO Vanco 3.VI -decrease lactated Ringer's to 75 an hour -follow renals/divalents 4..History of CVA -adjust diet as per speech recommendations -continue Keppra DVT prophylaxis: Subcu heparin Code status: Full code Will require ongoing hospitalization for reversal of sepsis and treatment of bacteremia Quality Stroke Does the patient have a stroke diagnosis?: No VTE Prior VTE?: No VTE Risk Level:: Medical - moderate - high VTE Device Contraindication: Treatment Not Indicated VTE Drug Contraindication: N/A - Med Ordered
[2021-06-28] MEDS: Lactated Ringers 1,000 ML 75 ML IVCONT ×2 (15:42→21:54)
[2021-06-28 15:48] VITALS: BP 168/76; PULSE 60; RESP 18; TEMP 36.7; O2SAT 98
[2021-06-28 17:03] VITALS: PULSE 47
[2021-06-28 19:27] VITALS: BP 151/87; PULSE 65; RESP 18; TEMP 37.1; O2SAT 98
[2021-06-29] VITALS (8 sets, daily range): BP systolic 151–182; BP diastolic 71–106; PULSE 52–84; RESP 18–20; TEMP 36.3–37.2; O2SAT 96–100; BMI 23.1
[2021-06-29] MEDS: vancomycin HCL Oral Solution 125 MG/5 ML SOLN.RECON PO ×4 (01:40→21:28)
[2021-06-29] MEDS: metroNIDAZOLE/NS 500 MG/100 ML PIGGYBACK 100 MG IV ×4 (01:40→23:38)
[2021-06-29 06:30] LABS: MANUAL DIFF FLAG NO
[2021-06-29 07:11] LABS: Basophils Percent Auto 0.3 % (0-2); Eosinophils Absolute Auto 0.2 X10*3/uL (0.0-0.4); Eosinophils Percent Auto 3.6 % (0-4); Hematocrit 26.3 % (42.0-52.0); Hemoglobin 8.7 g/dl (14.0-18.0); Imm Gran Abs Auto 0.02 X10*3/uL (0.00-0.03); Imm Gran Pct Auto 0.3 % (0.0-0.4); Lymphocytes Absolute Auto 1.6 X10*3/uL (1.2-4.9); Lymphocytes Percent Auto 27.1 % (20-40); Mean Corpuscular HGB Conc 33.1 g/dl (31.0-36.0); Mean Corpuscular Hemoglobin 31.9 pg (27.0-33.0); Mean Corpuscular Volume 96.3 fL (80.0-98.0); Mean Platelet Volume 9.3 fL (9.4-12.4); Monocytes Absolute Auto 0.5 X10*3/uL (0.1-1.2); Neutrophils Absolute Auto 3.4 x10*3/uL (2.0-8.3); Neutrophils Percent Auto 59.7 % (45-73); Platelet Count 208 X10*3/uL (160-400); Red Blood Count 2.73 X10*6/uL (4.60-5.80); Red Cell Distribution Width 14.7 % (11.0-16.0); White Blood Count 5.8 X10*3/uL (4.8-10.8)
[2021-06-29 07:22] LABS: Alanine Aminotransferase 16 U/L (0-40); Albumin Level 3.5 g/dL (3.5-5.0); Alkaline Phosphatase 68 U/L (39-117); Anion Gap 14 (12-20); Aspartate Amino Transferase 16 U/L (5-37); Bilirubin Total 0.8 mg/dL (0.0-1.0); Blood Urea Nitrogen 25 mg/dL (9-16); Calcium 9.1 mg/dL (8.4-10.2); Carbon Dioxide 21 mmol/L (22-29); Chloride 117 mmol/L (96-108); Creatinine Clr Calc Pharmacy 50.9; Estimated Glomerular Filt Rate 52; Glucose Fasting 115 mg/dL (60-99); Sodium 149 mmol/L (135-145); Total Protein 5.9 g/dL (6.5-8.0)
[2021-06-29] MEDS: Acetaminophen 325 MG TABLET 650 MG PO (09:51)
[2021-06-29] MEDS: Heparin Sodium,Porcine 5,000 UNIT/ML VIAL 5000 UNIT SUBCUT ×2 (09:51→21:29)
[2021-06-29] MEDS: levETIRAcetam Oral Soln 500 MG/5 ML 250 MG PO ×2 (09:52→21:28)
[2021-06-29] MEDS: Lactated Ringers 1,000 ML 75 ML IVCONT ×2 (09:54→21:37)
--- NOTE | 2021-06-29 12:27 | HO.PM.IMPN ---
Subjective Subjective Date of Service: 06/29/21 Interval History: No acute issues overnight Review of Systems Unable to obtain Physical Exam Vital Signs: Vital Signs: Last Vital Signs Temp 98.9 F 06/29/21 08:00 Pulse 62 06/29/21 08:00 Resp 20 06/29/21 08:00 BP 182/81 H 06/29/21 08:00 Pulse Ox 98 06/29/21 08:00 BMI result Body Mass Index 23.1 Const: Other: Somnolent. .. Minimally arousable Resp: Other: Clear to auscultation bilaterally no rales rhonchi wheezes Cardio: Other: No S4; positive S1-S2; no S3 murmurs rubs or gallops GI: Other: Soft nontender nondistended normoactive bowel sounds Extrem: Other: No edema bilaterally Objective Data Active Medications Acetaminophen (Acetaminophen 325 Mg Tablet) 650 mg PO Q6H PRN PRN Reason: Pain, Mild (Pain Scale 1-3) Last Admin: 06/29/21 09:51 Dose: 650 mg Documented by: IDRIS Heparin Sodium (Porcine) (Heparin Sodium,Porcine 5,000 Unit/Ml Vial) 5,000 unit SUBCUT Q12H [facility] Last Admin: 06/29/21 09:51 Dose: 5,000 unit Documented by: IDRIS Metronidazole (Flagyl) 500 mg in 100 mls @ 100 mls/hr IV Q8H [facility] Last Admin: 06/29/21 09:50 Dose: 100 mls/hr Documented by: IDRIS Ceftriaxone Sodium 1 gm/ (Sodium Chloride) 50 mls @ 100 mls/hr IV Q24H [facility] Last Infusion: 06/28/21 11:44 Dose: 0 mls/hr Documented by: SANJU Lactated Ringer's (Lr) 1,000 mls @ 75 mls/hr IVCONT .[id number] [facility] Last Admin: 06/29/21 09:54 Dose: 75 mls/hr Documented by: IDRIS Levetiracetam (Levetiracetam Oral Soln 500 Mg/5 Ml) 250 mg PO BID [facility] Last Admin: 06/29/21 09:52 Dose: 250 mg Documented by: IDRIS Pharmacy Consult (Consult Rx Perform Med Rec) 1 each MISCELLANE ONCE PRN PRN Reason: Consult order Sodium Chloride (0.9 % Sodium Chloride Flush 3 Ml Syringe) 3 ml IVFLUSH QSHIFT [facility] Last Admin: 06/29/21 09:53 Dose: Not Given Documented by: IDRIS Non-Admin Reason: IV Running Vancomycin HCl (Vancomycin Hcl Oral Solution 125 Mg/5 Ml Soln.Recon) 125 mg PO Q6H [facility] Last Admin: 06/29/21 09:52 Dose: 125 mg Documented by: IDRIS Labs CBC & Chem 7: 06/29/21 06:17 06/29/21 06:17 Labs: Laboratory Results - last 24 hr 06/29/21 06/29/21 06:17 06:17 MCV 96.3 MCH 31.9 MCHC 33.1 RDW 14.7 Plt Count 208 MPV 9.3 L Immature Gran % (Auto) 0.3 Neut % (Auto) 59.7 Lymph % (Auto) 27.1 [place] % (Auto) 9.0 Eos % (Auto) 3.6 Baso % (Auto) 0.3 Lymph # (Auto) 1.6 [place] # (Auto) 0.5 Eos # (Auto) 0.2 Baso # (Auto) 0.0 Abs Immat Gran (auto) 0.02 Absolute Neuts (auto) 3.4 Absolute Nucleated RBC 0.000 Nucleated RBC % (auto) 0.0 Anion Gap 14 Estim Creat Clear Calc 50.9 Estimated GFR 52 Fasting Glucose 115 H D Calcium 9.1 Total Bilirubin 0.8 AST 16 ALT 16 Alkaline Phosphatase 68 D Total Protein 5.9 L Albumin 3.5 Microbiology Microbiology Results: Microbiology 06/23/21 16:22 Blood Culture - Final Blood - Venous No growth after 5 days. Assessment and Plan (1) Acute UTI: Status: Acute (2) C. difficile diarrhea: Status: Acute (3) Acute renal failure superimposed on stage 2 chronic kidney disease: Status: Acute Plan 65-year-old male with a past medical history of hypertension, hyperlipidemia, history of CVA with residual right-sided deficits, chronic indwelling Walker, history of COVID-19 infection, decubitus ulcer, dysarthria, history of recurrent UTI, history of C diff diarrhea presented to the hospital with a chief complaint of hypotension and backdrop of recurrent UTI 1.UTI(Klebsiella) -continue Zosyn -suprapubic cath in am 2.Cdiff -PO Vanco 3.VI -decrease lactated Ringer's to 75 an hour -follow renals/divalents 4..History of CVA -adjust diet as per speech recommendations -continue Keppra DVT prophylaxis: Subcu heparin Code status: Full code Will require ongoing hospitalization for reversal of sepsis and treatment of bacteremia Quality Stroke Does the patient have a stroke diagnosis?: No VTE Prior VTE?: No VTE Risk Level:: Medical - moderate - high VTE Device Contraindication: Treatment Not Indicated VTE Drug Contraindication: N/A - Med Ordered
[2021-06-29] MEDS: cefTRIAXone sodium 1 GM in 0.9 % Sodium Chloride 50 ML IV (12:29)
--- NOTE | 2021-06-29 12:53 | P.PNNP_ITS ---
Subjective Subjective Date of Service: 06/29/21 Interval history: No acute issues overnight Physical Exam Vital Signs: Vital Signs: Last Vital Signs Temp 98.9 F 06/29/21 08:00 Pulse 62 06/29/21 08:00 Resp 20 06/29/21 08:00 BP 182/81 H 06/29/21 08:00 Pulse Ox 98 06/29/21 08:00 BMI result Body Mass Index 23.1 Const: General: no acute distress HEENT: Head: Yes normocephalic and Yes atraumatic Neck: Neck: Yes supple Resp: Auscultation: diminished lung sounds Cardio: Heart sounds: S1 normal heart sound present and S2 normal heart sound present GI: Palpation (GI): Soft to palpation and nontender Extrem: General: Yes no pedal edema Objective Data Labs CBC & Chem 7: 06/29/21 06:17 06/29/21 06:17 Labs: Laboratory Results - last 24 hr 06/29/21 06/29/21 06:17 06:17 WBC 5.8 RBC 2.73 L Hgb 8.7 L Hct 26.3 L MCV 96.3 MCH 31.9 MCHC 33.1 RDW 14.7 Plt Count 208 MPV 9.3 L Immature Gran % (Auto) 0.3 Neut % (Auto) 59.7 Lymph % (Auto) 27.1 [place] % (Auto) 9.0 Eos % (Auto) 3.6 Baso % (Auto) 0.3 Lymph # (Auto) 1.6 [place] # (Auto) 0.5 Eos # (Auto) 0.2 Baso # (Auto) 0.0 Abs Immat Gran (auto) 0.02 Absolute Neuts (auto) 3.4 Absolute Nucleated RBC 0.000 Nucleated RBC % (auto) 0.0 Sodium 149 H Potassium 3.0 L Chloride 117 H Carbon Dioxide 21 L Anion Gap 14 BUN 25 H Creatinine 1.38 Estim Creat Clear Calc 50.9 Estimated GFR 52 Fasting Glucose 115 H D Calcium 9.1 Total Bilirubin 0.8 AST 16 ALT 16 Alkaline Phosphatase 68 D Total Protein 5.9 L Albumin 3.5 Microbiology Microbiology Results: Microbiology 06/23/21 16:22 Blood - Venous Blood Culture - Final No growth after 5 days. 06/25/21 13:10 Blood - Venous Blood Culture - Preliminary No growth after 48 hours. 06/25/21 13:03 Blood - Venous Blood Culture - Preliminary No growth after 48 hours. 06/23/21 19:28 Urine Catheterized - Walker Catheter Urine Culture - Preliminary Klebsiella pneumoniae Proteus mirabilis 06/23/21 15:02 Blood - Venous Blood Culture - Final Klebsiella pneumoniae Procedures Date of Service Date of Service: 06/29/21 Assessment & Plan Assessment and plan (1) VI (acute kidney injury): Status: Acute (2) Metabolic acidosis: Status: Acute (3) Hypokalemia: Status: Acute (4) Hypernatremia: Status: Acute Plan kidney c better free water deficit multifactorial VI in the setting of gram negative bacteremia and septic shock (hypotensive) -compromised kidney perfusion and tubular stress -obstructive uropathy due to urinary retention CT scan abdomen negative for hydronephrosis metabolic acidosis due to VI and GI bicarbonate loss normal baseline kidney function REC replace potassium LR follow kidney function and electrolytes Time Spent With Patient Time: Total time spent is greater than 50% in coordination of care (as documented) at patient's floor/unit and/or counseling patient: Progress Note: Quality Stroke Does the patient have a stroke diagnosis?: No
[2021-06-29] MEDS: Potassium Chloride/H20 10 MEQ/100 ML PIGGYBACK 100 MEQ IV ×4 (13:43→17:48)
[2021-06-30] VITALS (10 sets, daily range): BP systolic 160–194; BP diastolic 77–90; PULSE 51–76; RESP 16–20; TEMP 36.4–37.6; O2SAT 97–100; BMI 22.8
[2021-06-30] MEDS: vancomycin HCL Oral Solution 125 MG/5 ML SOLN.RECON PO ×2 (03:29→08:16)
[2021-06-30 06:43] LABS: MANUAL DIFF FLAG NO
[2021-06-30 06:50] LABS: Basophils Percent Auto 0.4 % (0-2); Eosinophils Absolute Auto 0.1 X10*3/uL (0.0-0.4); Eosinophils Percent Auto 2.7 % (0-4); Hematocrit 26.8 % (42.0-52.0); Hemoglobin 8.9 g/dl (14.0-18.0); Imm Gran Abs Auto 0.02 X10*3/uL (0.00-0.03); Imm Gran Pct Auto 0.4 % (0.0-0.4); Lymphocytes Absolute Auto 1.3 X10*3/uL (1.2-4.9); Lymphocytes Percent Auto 27.8 % (20-40); Mean Corpuscular HGB Conc 33.2 g/dl (31.0-36.0); Mean Corpuscular Hemoglobin 32.4 pg (27.0-33.0); Mean Corpuscular Volume 97.5 fL (80.0-98.0); Mean Platelet Volume 9.1 fL (9.4-12.4); Monocytes Absolute Auto 0.5 X10*3/uL (0.1-1.2); Monocytes Percent Auto 11.8 % (2-11); Neutrophils Absolute Auto 2.6 x10*3/uL (2.0-8.3); Neutrophils Percent Auto 56.9 % (45-73); Platelet Count 225 X10*3/uL (160-400); Red Blood Count 2.75 X10*6/uL (4.60-5.80); Red Cell Distribution Width 14.5 % (11.0-16.0); White Blood Count 4.5 X10*3/uL (4.8-10.8)
[2021-06-30 07:09] LABS: Alanine Aminotransferase 17 U/L (0-40); Albumin Level 3.5 g/dL (3.5-5.0); Alkaline Phosphatase 67 U/L (39-117); Anion Gap 13 (12-20); Aspartate Amino Transferase 20 U/L (5-37); Bilirubin Total 0.7 mg/dL (0.0-1.0); Blood Urea Nitrogen 17 mg/dL (9-16); Carbon Dioxide 27 mmol/L (22-29); Chloride 110 mmol/L (96-108); Creatinine Clr Calc Pharmacy 59.7; Estimated Glomerular Filt Rate > 60; Glucose Fasting 114 mg/dL (60-99); Potassium 2.9 mmol/L (3.3-5.1); Sodium 147 mmol/L (135-145)
[2021-06-30] MEDS: levETIRAcetam Oral Soln 500 MG/5 ML 250 MG PO ×2 (08:15→23:21)
[2021-06-30] MEDS: metroNIDAZOLE/NS 500 MG/100 ML PIGGYBACK 100 MG IV ×3 (08:16→23:24)
[2021-06-30] MEDS: Potassium Chloride/H20 10 MEQ/100 ML PIGGYBACK 100 MEQ IV ×4 (09:55→13:48)
--- NOTE | 2021-06-30 10:08 | MHC.CLN ---
F/U PT WITH INCREASED NUTRITION RISK R/T PRESSURE INJURY SEE ALSO FULL CLINICAL NUTRITION ASSESSMENT DATED 06/27/21 PO INTAKE 50% AVG OVER WEEKEND DIET RX: PUREED WITH NT LIQ-APPROPRIATE PT RECEIVING ENSURE BID AND LAURA BID PROVIDES [id number], 45G PROTEIN FOR WOUND CONTINUE TO MONITOR PO INTAKE CLOSELY
[2021-06-30] MEDS: Lactated Ringers 1,000 ML 75 ML IVCONT (10:46)
[2021-06-30] MEDS: cefTRIAXone sodium 1 GM in 0.9 % Sodium Chloride 50 ML IV (10:46)
--- NOTE | 2021-06-30 12:48 | MHC.CM.PN ---
per rounds pt to have super puboc tube placed may be able to be dcd tomorrow facility updated
--- NOTE | 2021-06-30 15:43 | MHC.SLORD ---
Speech Language Pathology Order Status: Patient is on pureed food (NDD1) and nectar thick liquids. DISPLAY SPECIALIST to f/u tomorrow.
[2021-06-30 16:52] LABS: Anion Gap 11 (12-20); Blood Urea Nitrogen 14 mg/dL (9-16); Calcium 9.1 mg/dL (8.4-10.2); Carbon Dioxide 28 mmol/L (22-29); Chloride 111 mmol/L (96-108); Creatinine Clr Calc Pharmacy 65.3; Estimated Glomerular Filt Rate > 60; Glucose Random 102 mg/dL (60-115); Potassium 3.2 mmol/L (3.3-5.1); Sodium 147 mmol/L (135-145)
--- NOTE | 2021-06-30 17:08 | P.PNIM_ITS ---
Subjective Subjective Date of Service: 06/30/21 Interval History: No acute issues overnight Review of Systems Unable to obtain Physical Exam Vital Signs: Vital Signs: Last Vital Signs Temp 97.8 F 06/30/21 15:40 Pulse 53 06/30/21 15:40 Resp 17 06/30/21 15:40 BP 191/86 H 06/30/21 15:40 Pulse Ox 97 06/30/21 15:40 BMI result Body Mass Index 22.8 Const: Other: Somnolent. .. Minimally arousable Resp: Other: Clear to auscultation bilaterally no rales rhonchi wheezes Cardio: Other: No S4; positive S1-S2; no S3 murmurs rubs or gallops GI: Other: Soft nontender nondistended normoactive bowel sounds Extrem: Other: No edema bilaterally Objective Data Active Medications Acetaminophen (Acetaminophen 325 Mg Tablet) 650 mg PO Q6H PRN PRN Reason: Pain, Mild (Pain Scale 1-3) Last Admin: 06/29/21 09:51 Dose: 650 mg Documented by: IDRIS Heparin Sodium (Porcine) (Heparin Sodium,Porcine 5,000 Unit/Ml Vial) 5,000 unit SUBCUT Q12H [facility] Last Admin: 06/30/21 08:21 Dose: Not Given Documented by: ALHAJI Non-Admin Reason: pending surg Metronidazole (Flagyl) 500 mg in 100 mls @ 100 mls/hr IV Q8H [facility] Last Admin: 06/30/21 15:39 Dose: 100 mls/hr Documented by: ALHAJI Ceftriaxone Sodium 1 gm/ (Sodium Chloride) 50 mls @ 100 mls/hr IV Q24H [facility] Last Infusion: 06/30/21 11:33 Dose: 0 mls/hr Documented by: ALHAJI Levetiracetam (Levetiracetam Oral Soln 500 Mg/5 Ml) 250 mg PO BID [facility] Last Admin: 06/30/21 08:15 Dose: 250 mg Documented by: ALHAJI Pharmacy Consult (Consult Rx Perform Med Rec) 1 each MISCELLANE ONCE PRN PRN Reason: Consult order Potassium Chloride (Potassium Chloride Packet 20 Meq Packet) 40 meq PO BID [facility] Last Admin: 06/30/21 11:33 Dose: Not Given Documented by: ALHAJI Non-Admin Reason: NPO Sodium Chloride (0.9 % Sodium Chloride Flush 3 Ml Syringe) 3 ml IVFLUSH QSHIFT [facility] Last Admin: 06/30/21 15:35 Dose: Not Given Documented by: ALHAJI Non-Admin Reason: IV Running Vancomycin HCl (Vancomycin Hcl Oral Solution 125 Mg/5 Ml Soln.Recon) 125 mg PO Q6H [facility] Last Admin: 06/30/21 15:35 Dose: Not Given Documented by: ALHAJI Non-Admin Reason: NPO Labs CBC & Chem 7: 06/30/21 06:00 06/30/21 16:28 Labs: Laboratory Results - last 24 hr 06/30/21 06/30/21 06/30/21 06:00 06:00 16:28 MCV 97.5 MCH 32.4 MCHC 33.2 RDW 14.5 Plt Count 225 MPV 9.1 L Immature Gran % (Auto) 0.4 Neut % (Auto) 56.9 Lymph % (Auto) 27.8 [place] % (Auto) 11.8 H Eos % (Auto) 2.7 Baso % (Auto) 0.4 Lymph # (Auto) 1.3 [place] # (Auto) 0.5 Eos # (Auto) 0.1 Baso # (Auto) 0.0 Abs Immat Gran (auto) 0.02 Absolute Neuts (auto) 2.6 Absolute Nucleated RBC 0.000 Nucleated RBC % (auto) 0.0 Anion Gap 13 11 L Estim Creat Clear Calc 59.7 65.3 Estimated GFR > 60 > 60 Random Glucose 102 Fasting Glucose 114 H Calcium 9.0 9.1 Total Bilirubin 0.7 AST 20 ALT 17 Alkaline Phosphatase 67 Total Protein 6.0 L Albumin 3.5 Microbiology Microbiology Results: Microbiology 06/25/21 13:10 Blood Culture - Final Blood - Venous No growth after 5 days. 06/25/21 13:03 Blood Culture - Final Blood - Venous No growth after 5 days. Assessment and Plan (1) Acute UTI: Status: Acute (2) C. difficile diarrhea: Status: Acute (3) VI (acute kidney injury): Status: Acute Plan 65-year-old male with a past medical history of hypertension, hyperlipidemia, history of CVA with residual right-sided deficits, chronic indwelling Walker, history of COVID-19 infection, decubitus ulcer, dysarthria, history of recurrent UTI, history of C diff diarrhea presented to the hospital with a chief complaint of hypotension and backdrop of recurrent UTI 1.UTI(Klebsiella) -continue Zosyn -Await urology input 2.Cdiff -PO Vanco 3.VI -decrease lactated Ringer's to 75 an hour -follow renals/divalents 4..History of CVA -adjust diet as per speech recommendations -continue Keppra DVT prophylaxis: Subcu heparin Code status: Full code Will require ongoing hospitalization for reversal of sepsis and treatment of bacteremia Quality Stroke Does the patient have a stroke diagnosis?: No VTE Prior VTE?: No VTE Risk Level:: Medical - moderate - high VTE Device Contraindication: Treatment Not Indicated VTE Drug Contraindication: N/A - Med Ordered
--- NOTE | 2021-06-30 18:57 | P.CONAN_ITS ---
[facility] Active Problems Active Problems: All Active Problems (Updated 06/29/21 @ 12:54 by Favian Ruiz MD) Hypernatremia (Acute) Metabolic acidosis (Acute) Hypokalemia (Acute) VI (acute kidney injury) (Acute) Septic shock (Acute) History of CVA (cerebrovascular accident) (Acute) Acute UTI (Acute) Urinary tract infection (Acute) UTI (urinary tract infection) (Acute) C. 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 (Acute) Dysarthria due to acute cerebellar cerebrovascular accident (CVA) (Acute) Essential hypertension (Acute) Dyslipidemia (Acute) Acute renal failure superimposed on stage 2 chronic kidney disease (Acute) Urine incontinence (Acute) Stage I pressure ulcer of buttock (Acute) Dysphagia (Acute) Wheelchair bound (Acute) Stage II pressure ulcer of buttock (Acute) Right arm pain (Acute) Right leg pain (Acute) COVID-19 (Acute) HTN (hypertension) (Acute) Hypernatremia (Acute) COVID-19 (Acute) VI (acute kidney injury) (Acute) Pressure ulcer of sacral region, stage 2 (Acute) Decubitus ulcer of both heels, stage 1 (Acute) Past Medical History Medical History C. 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 Mother No problems noted. Surgical History Surgical History No pertinent past surgical history Social History Social History Household Members: None [phone] Housing: Half-Way Are you a primary primary care physician to a significant other at home: No Do you presently have visiting nurse or other home services: No Unable to assess alcohol history related to: Unable to respond Alcohol intake: unknown Patient Tobacco Use Status: Tobacco use Unknown Advance Directives Date on File: 02/14/20 service: No Current occupational status: disabled Meds Allergies Allergy/AdvReac Type Severity Reaction Status Date / Time No Known Allergies Allergy Verified 04/23/21 13:47 [No Known Allergies*] Active Medications: Current Medications Acetaminophen (Acetaminophen 325 Mg Tablet) 650 mg PO Q6H PRN PRN Reason: Pain, Mild (Pain Scale 1-3) Last Admin: 06/29/21 09:51 Dose: 650 mg Documented by: Heparin Sodium (Porcine) (Heparin Sodium,Porcine 5,000 Unit/Ml Vial) 5,000 unit SUBCUT Q12H [facility] Last Admin: 06/30/21 08:21 Dose: Not Given Documented by: Metronidazole (Flagyl) 500 mg in 100 mls @ 100 mls/hr IV Q8H [facility] Last Infusion: 06/30/21 18:20 Dose: Infused Documented by: Ceftriaxone Sodium 1 gm/ (Sodium Chloride) 50 mls @ 100 mls/hr IV Q24H [facility] Last Infusion: 06/30/21 11:33 Dose: Infused Documented by: Levetiracetam (Levetiracetam Oral Soln 500 Mg/5 Ml) 250 mg PO BID [facility] Last Admin: 06/30/21 08:15 Dose: 250 mg Documented by: Pharmacy Consult (Consult Rx Perform Med Rec) 1 each MISCELLANE ONCE PRN PRN Reason: Consult order Potassium Chloride (Potassium Chloride Packet 20 Meq Packet) 40 meq PO BID [facility] Last Admin: 06/30/21 11:33 Dose: Not Given Documented by: Sodium Chloride (0.9 % Sodium Chloride Flush 3 Ml Syringe) 3 ml IVFLUSH QSHIFT [facility] Last Admin: 06/30/21 15:35 Dose: Not Given Documented by: Vancomycin HCl (Vancomycin Hcl Oral Solution 125 Mg/5 Ml Soln.Recon) 125 mg PO Q6H [facility] Last Admin: 06/30/21 15:35 Dose: Not Given Documented by: Home Medications Medication Instructions Recorded Confirmed Last Taken Type atorvastatin 80 mg tablet 80 mg PO BEDTIME 04/25/20 06/23/21 Unknown History amlodipine 5 mg tablet 5 mg PO DAILY 06/20/20 06/23/21 06/23/21 History acetaminophen 325 mg tablet 650 mg PO Q4H PRN 02/16/21 06/23/21 Unknown History bisacodyl 10 mg rectal suppository 10 mg AL DAILY PRN 02/16/21 06/23/21 Unknown History calcium carbonate 600 mg-vitamin 1 tab PO BID 02/16/21 06/23/21 Unknown History D3 5 mcg (200 unit) tablet lidocaine 5 % topical patch 1 patch TOPICAL DAILY 02/16/21 06/23/21 Unknown History magnesium citrate (Citrate of 300 ml PO DAILY PRN 02/16/21 06/23/21 Unknown History Magnesia) magnesium hydroxide 400 mg/5 mL 30 ml PO DAILY PRN 02/16/21 06/23/21 Unknown History oral suspension (Milk of Magnesia) levetiracetam 100 mg/mL oral 2.5 ml PO BID 02/26/21 06/23/21 06/23/21 History solution naloxone 4 mg/actuation nasal spray 4 mg INTRANASAL ONCE PRN 02/26/21 06/23/21 Unknown History potassium chloride 20 mEq 1 tab PO DAILY 06/23/21 06/23/21 Unknown History tablet,extended release(part/cryst) vancomycin 25 mg/mL oral solution 125 mg PO TID 06/23/21 06/23/21 Unknown Histor y (Firvanq) Exam Exam Date and Time: June 30, 2021 1857 Height,Weight and Vital Signs: Height 5 ft 8 in Weight 68 kg Last Vital Signs Temp 99.6 F 06/30/21 18:24 Pulse 54 06/30/21 18:24 Resp 18 06/30/21 18:24 BP 172/85 H 06/30/21 18:28 Pulse Ox 97 06/30/21 18:24 Pertinent Lab Results Pertinent Lab Results: Laboratory Tests 06/23/21 06/23/21 06/23/21 15:01 15:01 15:02 WBC 17.5 H RBC 2.91 L Hgb 9.6 L Hct 28.7 L MCV 98.6 H MCH 33.0 MCHC 33.4 RDW 15.3 Plt Count 214 MPV 9.3 L Immature Gran % (Auto) 0.5 H Neut % (Auto) 80.0 H Lymph % (Auto) 10.2 L [place] % (Auto) 6.0 Eos % (Auto) 3.1 Baso % (Auto) 0.2 Lymph # (Auto) 1.8 [place] # (Auto) 1.1 Eos # (Auto) 0.6 H Baso # (Auto) 0.0 Abs Immat Gran (auto) 0.08 H Absolute Neuts (auto) 14.0 H Absolute Nucleated RBC 0.000 Nucleated RBC % (auto) 0.0 PT INR VBG pH VBG pCO2 VBG pO2 VBG HCO3 VBG O2 Saturation VBG Base Excess Sodium 136 Potassium 4.1 D Chloride 104 Carbon Dioxide 22 Anion Gap 14 BUN 65 H D Creatinine 4.03 H* Estim Creat Clear Calc TNP Estimated GFR 15 POC Glucose Random Glucose 107 Fasting Glucose Lactic Acid 1.7 Calcium 8.4 Phosphorus Magnesium 1.9 Total Bilirubin 1.1 H Direct Bilirubin 0.5 AST 9 ALT 14 Alkaline Phosphatase 67 D Troponin I High Sens Total Protein 5.2 L Albumin 2.5 L Lipase 9 Urine Color Urine Appearance Urine pH Ur Specific [place] Urine Protein Urine Glucose (UA) Urine Ketones Urine Blood Urine Nitrite Ur Leukocyte Esterase Urine RBC Urine WBC Ur Squamous Epith Cells Urine Bacteria Ur Random Sodium Urine Opiates Screen Urine Fentanyl Screen Ur Barbiturates Screen Ur Phencyclidine Scrn Ur Amphetamines Screen U Benzodiazepines Scrn Urine Cocaine Screen U Marijuana (THC) Screen C. difficile Tox B Gene C. difficile Toxin A&B C. difficile Interpret COVID-19 ([facility]) COVID-19 Clin Com 06/23/21 06/23/21 06/23/21 15:02 15:02 15:02 WBC RBC Hgb Hct MCV MCH MCHC RDW Plt Count MPV Immature Gran % (Auto) Neut % (Auto) Lymph % (Auto) [place] % (Auto) Eos % (Auto) Baso % (Auto) Lymph # (Auto) [place] # (Auto) Eos # (Auto) Baso # (Auto) Abs Immat Gran (auto) Absolute Neuts (auto) Absolute Nucleated RBC Nucleated RBC % (auto) PT 17.8 H INR 1.6 H VBG pH VBG pCO2 VBG pO2 VBG HCO3 VBG O2 Saturation VBG Base Excess Sodium Potassium Chloride Carbon Dioxide Anion Gap BUN Creatinine Estim Creat Clear Calc Estimated GFR POC Glucose Random Glucose Fasting Glucose Lactic Acid Calcium Phosphorus Magnesium Total Bilirubin Direct Bilirubin AST ALT Alkaline Phosphatase Troponin I High Sens 15.8 D Total Protein Albumin Lipase Urine Color Urine Appearance Urine pH Ur Specific [place] Urine Protein Urine Glucose (UA) Urine Ketones Urine Blood Urine Nitrite Ur Leukocyte Esterase Urine RBC Urine WBC Ur Squamous Epith Cells Urine Bacteria Ur Random Sodium Urine Opiates Screen Urine Fentanyl Screen Ur Barbiturates Screen Ur Phencyclidine Scrn Ur Amphetamines Screen U Benzodiazepines Scrn Urine Cocaine Screen U Marijuana (THC) Screen C. difficile Tox B Gene C. difficile Toxin A&B C. difficile Interpret COVID-19 ([facility]) Negative COVID-19 Clin Com See Note 06/23/21 06/23/21 06/23/21 18:59 18:59 18:59 WBC RBC Hgb Hct MCV MCH MCHC RDW Plt Count MPV Immature Gran % (Auto) Neut % (Auto) Lymph % (Auto) [place] % (Auto) Eos % (Auto) Baso % (Auto) Lymph # (Auto) [place] # (Auto) Eos # (Auto) Baso # (Auto) Abs Immat Gran (auto) Absolute Neuts (auto) Absolute Nucleated RBC Nucleated RBC % (auto) PT INR VBG pH VBG pCO2 VBG pO2 VBG HCO3 VBG O2 Saturation VBG Base Excess Sodium Potassium Chloride Carbon Dioxide Anion Gap BUN Creatinine Estim Creat Clear Calc Estimated GFR POC Glucose Random Glucose Fasting Glucose Lactic Acid Calcium Phosphorus Magnesium Total Bilirubin Direct Bilirubin AST ALT Alkaline Phosphatase Troponin I High Sens Total Protein Albumin Lipase Urine Color YELLOW Urine Appearance TURBID Urine pH 7.0 Ur Specific [place] 1.015 Urine Protein TRACE Urine Glucose (UA) NEG Urine Ketones 5 Urine Blood 3+ H Urine Nitrite NEG Ur Leukocyte Esterase 3+ H Urine RBC 0-2 Urine WBC TNTC H Ur Squamous Epith Cells NONE Urine Bacteria 2+ Ur Random Sodium Urine Opiates Screen Not Detected Urine Fentanyl Screen Not Detected Ur Barbiturates Screen Not Detected Ur Phencyclidine Scrn Not Detected Ur Amphetamines Screen Not Detected U Benzodiazepines Scrn Not Detected Urine Cocaine Screen Not Detected U Marijuana (THC) Screen Not Detected C. difficile Tox B Gene POSITIVE A* C. difficile Toxin A&B Negative C. difficile Interpret SEE NOTE COVID-19 ([facility]) COVID-19 [employer] Com 06/23/21 06/24/21 06/24/21 21:55 03:34 07:14 WBC 13.0 H RBC 2.54 L Hgb 8.2 L Hct 24.8 L MCV 97.6 MCH 32.3 MCHC 33.1 RDW 14.9 Plt Count 155 L D MPV 9.4 Immature Gran % (Auto) 0.5 H Neut % (Auto) 83.8 H Lymph % (Auto) 9.7 L [place] % (Auto) 5.7 Eos % (Auto) 0.2 Baso % (Auto) 0.1 Lymph # (Auto) 1.3 [place] # (Auto) 0.7 Eos # (Auto) 0.0 Baso # (Auto) 0.0 Abs Immat Gran (auto) 0.06 H Absolute Neuts (auto) 10.9 H Absolute Nucleated RBC 0.000 Nucleated RBC % (auto) 0.0 PT INR VBG pH VBG pCO2 VBG pO2 VBG HCO3 VBG O2 Saturation VBG Base Excess Sodium 138 Potassium 3.5 Chloride 107 Carbon Dioxide 20 L Anion Gap 15 BUN 60 H Creatinine 3.82 H Estim Creat Clear Calc 18.4 Estimated GFR 16 POC Glucose Random Glucose 107 Fasting Glucose Lactic Acid Calcium 8.3 L Phosphorus Magnesium Total Bilirubin Direct Bilirubin AST ALT Alkaline Phosphatase Troponin I High Sens Total Protein Albumin Lipase Urine Color Urine Appearance Urine pH Ur Specific [place] Urine Protein Urine Glucose (UA) Urine Ketones Urine Blood Urine Nitrite Ur Leukocyte Esterase Urine RBC Urine WBC Ur Squamous Epith Cells Urine Bacteria Ur Random Sodium Urine Opiates Screen Urine Fentanyl Screen Ur Barbiturates Screen Ur Phencyclidine Scrn Ur Amphetamines Screen U Benzodiazepines Scrn Urine Cocaine Screen U Marijuana (THC) Screen C. difficile Tox B Gene POSITIVE A* C. difficile Toxin A&B Positive A* C. difficile Interpret SEE NOTE COVID-19 ([facility]) COVID-19 Clin [facility] 06/24/21 06/24/21 06/25/21 07:14 23:13 08:36 WBC 9.2 RBC 2.77 L Hgb 9.0 L Hct 27.3 L MCV 98.6 H MCH 32.5 MCHC 33.0 RDW 14.6 Plt Count 173 MPV 9.5 Immature Gran % (Auto) 0.3 Neut % (Auto) 78.8 H Lymph % (Auto) 13.7 L [place] % (Auto) 6.2 Eos % (Auto) 0.8 Baso % (Auto) 0.2 Lymph # (Auto) 1.3 [place] # (Auto) 0.6 Eos # (Auto) 0.1 Baso # (Auto) 0.0 Abs Immat Gran (auto) 0.03 Absolute Neuts (auto) 7.3 Absolute Nucleated RBC 0.000 Nucleated RBC % (auto) 0.0 PT INR VBG pH VBG pCO2 VBG pO2 VBG HCO3 VBG O2 Saturation VBG Base Excess Sodium 138 Potassium 3.0 L Chloride 109 H Carbon Dioxide 18 L Anion Gap 14 BUN 63 H Creatinine 3.54 H Estim Creat Clear Calc 19.8 Estimated GFR 17 POC Glucose Random Glucose 89 Fasting Glucose Lactic Acid Calcium 8.2 L Phosphorus Magnesium Total Bilirubin Direct Bilirubin AST ALT Alkaline Phosphatase Troponin I High Sens Total Protein Albumin Lipase Urine Color Urine Appearance Urine pH Ur Specific [place] Urine Protein Urine Glucose (UA) Urine Ketones Urine Blood Urine Nitrite Ur Leukocyte Esterase Urine RBC Urine WBC Ur Squamous Epith Cells Urine Bacteria Ur Random Sodium 56.0 Urine Opiates Screen Urine Fentanyl Screen Ur Barbiturates Screen Ur Phencyclidine Scrn Ur Amphetamines Screen U Benzodiazepines Scrn Urine Cocaine Screen U Marijuana (THC) Screen C. difficile Tox B Gene C. difficile Toxin A&B C. difficile Interpret COVID-19 ([facility]) COVID-19 Clin Com 06/25/21 06/25/21 06/25/21 08:36 13:10 18:52 WBC 6.6 RBC 2.43 L Hgb 7.8 L Hct 23.8 L MCV 97.9 MCH 32.1 MCHC 32.8 RDW 14.6 Plt Count 156 L MPV 9.5 Immature Gran % (Auto) 0.5 H Neut % (Auto) 79.2 H Lymph % (Auto) 13.1 L [place] % (Auto) 6.2 Eos % (Auto) 0.8 Baso % (Auto) 0.2 Lymph # (Auto) 0.9 L [place] # (Auto) 0.4 Eos # (Auto) 0.1 Baso # (Auto) 0.0 Abs Immat Gran (auto) 0.03 Absolute Neuts (auto) 5.3 Absolute Nucleated RBC 0.000 Nucleated RBC % (auto) 0.0 PT INR VBG pH VBG pCO2 VBG pO2 VBG HCO3 VBG O2 Saturation VBG Base Excess Sodium 142 Potassium 3.0 L Chloride 113 H Carbon Dioxide 14 L Anion Gap 18 BUN 64 H Creatinine 3.20 H Estim Creat Clear Calc 21.9 Estimated GFR 20 POC Glucose Random Glucose Fasting Glucose 73 D Lactic Acid 1.4 Calcium 8.2 L Phosphorus Magnesium Total Bilirubin 0.7 Direct Bilirubin AST 17 D ALT 22 Alkaline Phosphatase 68 Troponin I High Sens Total Protein 5.2 L Albumin 2.6 L Lipase Urine Color Urine Appearance Urine pH Ur Specific [place] Urine Protein Urine Glucose (UA) Urine Ketones Urine Blood Urine Nitrite Ur Leukocyte Esterase Urine RBC Urine WBC Ur Squamous Epith Cells Urine Bacteria Ur Random Sodium Urine Opiates Screen Urine Fentanyl Screen Ur Barbiturates Screen Ur Phencyclidine Scrn Ur Amphetamines Screen U Benzodiazepines Scrn Urine Cocaine Screen U Marijuana (THC) Screen C. difficile Tox B Gene C. difficile Toxin A&B C. difficile Interpret COVID-19 ([facility]) COVID-19 [facility] Com 06/25/21 06/26/21 06/26/21 18:52 05:42 05:46 WBC 5.2 RBC 2.43 L Hgb 7.9 L Hct 23.3 L MCV 95.9 MCH 32.5 MCHC 33.9 RDW 14.5 Plt Count 152 L MPV 9.2 L Immature Gran % (Auto) 0.4 Neut % (Auto) 70.0 Lymph % (Auto) 19.5 L [place] % (Auto) 8.2 Eos % (Auto) 1.7 Baso % (Auto) 0.2 Lymph # (Auto) 1.0 L [place] # (Auto) 0.4 Eos # (Auto) 0.1 Baso # (Auto) 0.0 Abs Immat Gran (auto) 0.02 Absolute Neuts (auto) 3.7 Absolute Nucleated RBC 0.000 Nucleated RBC % (auto) 0.0 PT INR VBG pH 7.40 VBG pCO2 28 VBG pO2 92 VBG HCO3 17 L VBG O2 Saturation 98.0 VBG Base Excess -5.9 Sodium 145 Potassium 2.8 L Chloride 114 H Carbon Dioxide 18 L Anion Gap 16 BUN 56 H Creatinine 2.63 H Estim Creat Clear Calc 26.7 Estimated GFR 24 POC Glucose Random Glucose 80 Fasting Glucose Lactic Acid Calcium 8.0 L Phosphorus 4.1 Magnesium 1.9 Total Bilirubin Direct Bilirubin AST ALT Alkaline Phosphatase Troponin I High Sens Total Protein Albumin Lipase Urine Color Urine Appearance Urine pH Ur Specific [place] Urine Protein Urine Glucose (UA) Urine Ketones Urine Blood Urine Nitrite Ur Leukocyte Esterase Urine RBC Urine WBC Ur Squamous Epith Cells Urine Bacteria Ur Random Sodium Urine Opiates Screen Urine Fentanyl Screen Ur Barbiturates Screen Ur Phencyclidine Scrn Ur Amphetamines Screen U Benzodiazepines Scrn Urine Cocaine Screen U Marijuana (THC) Screen C. difficile Tox B Gene C. difficile Toxin A&B C. difficile Interpret COVID-19 ([facility]) COVID-19 [employer] 06/26/21 06/27/21 06/27/21 05:46 06:37 06:37 WBC 5.1 RBC 2.49 L Hgb 7.9 L Hct 24.1 L MCV 96.8 MCH 31.7 MCHC 32.8 RDW 14.6 Plt Count 173 MPV 9.7 Immature Gran % (Auto) 0.4 Neut % (Auto) 59.9 Lymph % (Auto) 27.3 [place] % (Auto) 10.8 Eos % (Auto) 1.2 Baso % (Auto) 0.4 Lymph # (Auto) 1.4 [place] # (Auto) 0.6 Eos # (Auto) 0.1 Baso # (Auto) 0.0 Abs Immat Gran (auto) 0.02 Absolute Neuts (auto) 3.1 Absolute Nucleated RBC 0.000 Nucleated RBC % (auto) 0.0 PT INR VBG pH VBG pCO2 VBG pO2 VBG HCO3 VBG O2 Saturation VBG Base Excess Sodium 145 147 H Potassium 3.4 D 3.2 L Chloride 118 H 120 H Carbon Dioxide 17 L 19 L Anion Gap 15 11 L BUN 52 H 45 H Creatinine 2.49 H 2.16 H Estim Creat Clear Calc 28.2 32.5 Estimated GFR 26 31 POC Glucose Random Glucose 90 119 H Fasting Glucose Lactic Acid Calcium 8.6 D 8.7 Phosphorus 3.4 2.9 Magnesium 1.9 1.9 Total Bilirubin 0.7 Direct Bilirubin AST 12 ALT 16 Alkaline Phosphatase 55 Troponin I High Sens Total Protein 5.4 L Albumin 3.6 D 3.5 Lipase Urine Color Urine Appearance Urine pH Ur Specific [place] Urine Protein Urine Glucose (UA) Urine Ketones Urine Blood Urine Nitrite Ur Leukocyte Esterase Urine RBC Urine WBC Ur Squamous Epith Cells Urine Bacteria Ur Random Sodium Urine Opiates Screen Urine Fentanyl Screen Ur Barbiturates Screen Ur Phencyclidine Scrn Ur Amphetamines Screen U Benzodiazepines Scrn Urine Cocaine Screen U Marijuana (THC) Screen C. difficile Tox B Gene C. difficile Toxin A&B C. difficile Interpret COVID-19 ([facility]) COVID-19 [facility] Com 06/27/21 06/27/21 06/29/21 11:18 14:20 06:17 WBC 5.8 RBC 2.73 L Hgb 8.7 L Hct 26.3 L MCV 96.3 MCH 31.9 MCHC 33.1 RDW 14.7 Plt Count 208 MPV 9.3 L Immature Gran % (Auto) 0.3 Neut % (Auto) 59.7 Lymph % (Auto) 27.1 [place] % (Auto) 9.0 Eos % (Auto) 3.6 Baso % (Auto) 0.3 Lymph # (Auto) 1.6 [place] # (Auto) 0.5 Eos # (Auto) 0.2 Baso # (Auto) 0.0 Abs Immat Gran (auto) 0.02 Absolute Neuts (auto) 3.4 Absolute Nucleated RBC 0.000 Nucleated RBC % (auto) 0.0 PT INR VBG pH VBG pCO2 VBG pO2 VBG HCO3 VBG O2 Saturation VBG Base Excess Sodium Potassium Chloride Carbon Dioxide Anion Gap BUN Creatinine Estim Creat Clear Calc Estimated GFR POC Glucose 114 Random Glucose Fasting Glucose Lactic Acid Calcium Phosphorus Magnesium Total Bilirubin Direct Bilirubin AST ALT Alkaline Phosphatase Troponin I High Sens Total Protein Albumin Lipase Urine Color Urine Appearance Urine pH Ur Specific [place] Urine Protein Urine Glucose (UA) Urine Ketones Urine Blood Urine Nitrite Ur Leukocyte Esterase Urine RBC Urine WBC Ur Squamous Epith Cells Urine Bacteria Ur Random Sodium Urine Opiates Screen Urine Fentanyl Screen Ur Barbiturates Screen Ur Phencyclidine Scrn Ur Amphetamines Screen U Benzodiazepines Scrn Urine Cocaine Screen U Marijuana (THC) Screen C. difficile Tox B Gene C. difficile Toxin A&B C. difficile Interpret COVID-19 ([facility]) Invalid COVID-19 Clin Com See Note 06/29/21 06/30/21 06/30/21 06:17 06:00 06:00 WBC 4.5 L RBC 2.75 L Hgb 8.9 L Hct 26.8 L MCV 97.5 MCH 32.4 MCHC 33.2 RDW 14.5 Plt Count 225 MPV 9.1 L Immature Gran % (Auto) 0.4 Neut % (Auto) 56.9 Lymph % (Auto) 27.8 [place] % (Auto) 11.8 H Eos % (Auto) 2.7 Baso % (Auto) 0.4 Lymph # (Auto) 1.3 [place] # (Auto) 0.5 Eos # (Auto) 0.1 Baso # (Auto) 0.0 Abs Immat Gran (auto) 0.02 Absolute Neuts (auto) 2.6 Absolute Nucleated RBC 0.000 Nucleated RBC % (auto) 0.0 PT INR VBG pH VBG pCO2 VBG pO2 VBG HCO3 VBG O2 Saturation VBG Base Excess Sodium 149 H 147 H Potassium 3.0 L 2.9 L Chloride 117 H 110 H Carbon Dioxide 21 L 27 Anion Gap 14 13 BUN 25 H 17 H Creatinine 1.38 1.17 Estim Creat Clear Calc 50.9 59.7 Estimated GFR 52 > 60 POC Glucose Random Glucose Fasting Glucose 115 H D 114 H Lactic Acid Calcium 9.1 9.0 Phosphorus Magnesium Total Bilirubin 0.8 0.7 Direct Bilirubin AST 16 20 ALT 16 17 Alkaline Phosphatase 68 D 67 Troponin I High Sens Total Protein 5.9 L 6.0 L Albumin 3.5 3.5 Lipase Urine Color Urine Appearance Urine pH Ur Specific [place] Urine Protein Urine Glucose (UA) Urine Ketones Urine Blood Urine Nitrite Ur Leukocyte Esterase Urine RBC Urine WBC Ur Squamous Epith Cells Urine Bacteria Ur Random Sodium Urine Opiates Screen Urine Fentanyl Screen Ur Barbiturates Screen Ur Phencyclidine Scrn Ur Amphetamines Screen U Benzodiazepines Scrn Urine Cocaine Screen U Marijuana (THC) Screen C. difficile Tox B Gene C. difficile Toxin A&B C. difficile Interpret COVID-19 ([facility]) COVID-19 Clin Com 06/30/21 16:28 WBC RBC Hgb Hct MCV MCH MCHC RDW Plt Count MPV Immature Gran % (Auto) Neut % (Auto) Lymph % (Auto) [place] % (Auto) Eos % (Auto) Baso % (Auto) Lymph # (Auto) [place] # (Auto) Eos # (Auto) Baso # (Auto) Abs Immat Gran (auto) Absolute Neuts (auto) Absolute Nucleated RBC Nucleated RBC % (auto) PT INR VBG pH VBG pCO2 VBG pO2 VBG HCO3 VBG O2 Saturation VBG Base Excess Sodium 147 H Potassium 3.2 L Chloride 111 H Carbon Dioxide 28 Anion Gap 11 L BUN 14 Creatinine 1.07 Estim Creat Clear Calc 65.3 Estimated GFR > 60 POC Glucose Random Glucose 102 Fasting Glucose Lactic Acid Calcium 9.1 Phosphorus Magnesium Total Bilirubin Direct Bilirubin AST ALT Alkaline Phosphatase Troponin I High Sens Total Protein Albumin Lipase Urine Color Urine Appearance Urine pH Ur Specific [place] Urine Protein Urine Glucose (UA) Urine Ketones Urine Blood Urine Nitrite Ur Leukocyte Esterase Urine RBC Urine WBC Ur Squamous Epith Cells Urine Bacteria Ur Random Sodium Urine Opiates Screen Urine Fentanyl Screen Ur Barbiturates Screen Ur Phencyclidine Scrn Ur Amphetamines Screen U Benzodiazepines Scrn Urine Cocaine Screen U Marijuana (THC) Screen C. difficile Tox B Gene C. difficile Toxin A&B C. difficile Interpret COVID-19 ([facility]) COVID-19 Clin Com
--- NOTE | 2021-06-30 21:03 | P.PNNP_ITS ---
Subjective Subjective Date of Service: 06/30/21 Interval history: No acute issues overnight Physical Exam Vital Signs: Vital Signs: Last Vital Signs Temp 97.9 F 06/30/21 19:20 Pulse 53 06/30/21 19:20 Resp 18 06/30/21 19:20 BP 188/78 H 06/30/21 20:58 Pulse Ox 98 06/30/21 19:20 BMI result Body Mass Index 22.8 Const: General: comfortable and no acute distress HEENT: Head: Yes normocephalic and Yes atraumatic Neck: Neck: Yes no JVD Resp: Effort & Inspection: normal respiratory effort Cardio: Jugular venous distension: no JVD Rate: regular rate Rhythm: regular rhythm GI: Auscultation: normal bowel sounds Neuro: General: no focal motor deficits Extrem: General: Yes no clubbing, cyanosis or edema Objective Data Labs CBC & Chem 7: 06/30/21 06:00 06/30/21 16:28 Labs: Laboratory Results - last 24 hr 06/30/21 06/30/21 06/30/21 06:00 06:00 16:28 WBC 4.5 L RBC 2.75 L Hgb 8.9 L Hct 26.8 L MCV 97.5 MCH 32.4 MCHC 33.2 RDW 14.5 Plt Count 225 MPV 9.1 L Immature Gran % (Auto) 0.4 Neut % (Auto) 56.9 Lymph % (Auto) 27.8 [place] % (Auto) 11.8 H Eos % (Auto) 2.7 Baso % (Auto) 0.4 Lymph # (Auto) 1.3 [place] # (Auto) 0.5 Eos # (Auto) 0.1 Baso # (Auto) 0.0 Abs Immat Gran (auto) 0.02 Absolute Neuts (auto) 2.6 Absolute Nucleated RBC 0.000 Nucleated RBC % (auto) 0.0 Sodium 147 H 147 H Potassium 2.9 L 3.2 L Chloride 110 H 111 H Carbon Dioxide 27 28 Anion Gap 13 11 L BUN 17 H 14 Creatinine 1.17 1.07 Estim Creat Clear Calc 59.7 65.3 Estimated GFR > 60 > 60 Random Glucose 102 Fasting Glucose 114 H Calcium 9.0 9.1 Total Bilirubin 0.7 AST 20 ALT 17 Alkaline Phosphatase 67 Total Protein 6.0 L Albumin 3.5 Microbiology Microbiology Results: Microbiology 06/25/21 13:10 Blood - Venous Blood Culture - Final No growth after 5 days. 06/25/21 13:03 Blood - Venous Blood Culture - Final No growth after 5 days. 06/23/21 16:22 Blood - Venous Blood Culture - Final No growth after 5 days. 06/23/21 19:28 Urine Catheterized - Walker Catheter Urine Culture - Preliminary Klebsiella pneumoniae Proteus mirabilis 06/23/21 15:02 Blood - Venous Blood Culture - Final Klebsiella pneumoniae Procedures Date of Service Date of Service: 06/30/21 Assessment & Plan Assessment and plan (1) Hypernatremia: Status: Acute Assessment and Plan: kidney Cr better free water deficit ~ 2.3 liters. multifactorial VI in the setting of gram negative bacteremia and septic shock (hypotensive) -compromised kidney perfusion and tubular stress -obstructive uropathy due to urinary retention CT scan abdomen negative for hydronephrosis metabolic acidosis due to VI and GI bicarbonate loss normal baseline kidney function REC replace potassium with ongoing stool losses. Suggest improvement of FW intake. Hypotonic IVF if needed given hypernatremia. follow kidney function and electrolytes (2) VI (acute kidney injury): Status: Acute Time Spent With Patient Time: Total time spent is greater than 50% in coordination of care (as documented) at patient's floor/unit and/or counseling patient: Progress Note: Quality Stroke Does the patient have a stroke diagnosis?: No
[2021-06-30] MEDS: Potassium Chloride Packet 20 MEQ PACKET 40 MEQ PO (23:00)
[2021-06-30] MEDS: Heparin Sodium,Porcine 5,000 UNIT/ML VIAL 5000 UNIT SUBCUT (23:23)
[2021-07-01] VITALS (13 sets, daily range): BP systolic 167–187; BP diastolic 80–91; PULSE 47–57; RESP 16–20; TEMP 36.1–37.1; O2SAT 96–100; BMI 32.9
[2021-07-01] MEDS: 0.9 % Sodium Chloride Flush 3 ML SYRINGE IVFLUSH ×3 (01:42→17:54)
--- NOTE | 2021-07-01 04:58 | PC.NURSE ---
PT RETURNED TO ROOM FROM OR AT 1900. UNABLE TO DO SUPRAPUBIC CATHETER DUE TO NOT BEING ABLE TO OBTAIN CONSENT. PT ALERT, NON VERBAL, DOES NOT FOLLOW COMMANDS. AFEBRILE. BP HAS BEEN ELEVATED WITH A SBP 170'S-190. DR LEIGH NOTIFIED AT MIDNIGHT OF HIGH BP. NO NEW ORDERS GIVEN. PT HAS HISTORY OF HTN AND TAKES AMLODIPINE AND LOSARTIN AT HOME BUT THESE 2 MEDS NOT ORDERED AT THIS TIME. DR LEIGH MADE AWARE OF THIS. KO CATH DRAINING WELL.
[2021-07-01 07:34] LABS: Basophils Percent Auto 0.2 % (0-2); Eosinophils Absolute Auto 0.1 X10*3/uL (0.0-0.4); Eosinophils Percent Auto 2.6 % (0-4); Hematocrit 26.5 % (42.0-52.0); Hemoglobin 8.9 g/dl (14.0-18.0); Imm Gran Abs Auto 0.03 X10*3/uL (0.00-0.03); Imm Gran Pct Auto 0.6 % (0.0-0.4); Lymphocytes Absolute Auto 1.7 X10*3/uL (1.2-4.9); Lymphocytes Percent Auto 33.9 % (20-40); MANUAL DIFF FLAG NO; Mean Corpuscular HGB Conc 33.6 g/dl (31.0-36.0); Mean Corpuscular Volume 95.3 fL (80.0-98.0); Mean Platelet Volume 8.7 fL (9.4-12.4); Monocytes Absolute Auto 0.5 X10*3/uL (0.1-1.2); Monocytes Percent Auto 10.3 % (2-11); Neutrophils Absolute Auto 2.6 x10*3/uL (2.0-8.3); Neutrophils Percent Auto 52.4 % (45-73); Platelet Count 227 X10*3/uL (160-400); Red Blood Count 2.78 X10*6/uL (4.60-5.80); Red Cell Distribution Width 14.3 % (11.0-16.0); White Blood Count 4.9 X10*3/uL (4.8-10.8)
[2021-07-01 07:53] LABS: Alanine Aminotransferase 17 U/L (0-40); Albumin Level 3.4 g/dL (3.5-5.0); Alkaline Phosphatase 71 U/L (39-117); Anion Gap 10 (12-20); Aspartate Amino Transferase 23 U/L (5-37); Bilirubin Total 0.9 mg/dL (0.0-1.0); Blood Urea Nitrogen 14 mg/dL (9-16); Calcium 9.1 mg/dL (8.4-10.2); Carbon Dioxide 29 mmol/L (22-29); Chloride 110 mmol/L (96-108); Creatinine Clr Calc Pharmacy 82.5; Estimated Glomerular Filt Rate > 60; Glucose Fasting 95 mg/dL (60-99); Sodium 146 mmol/L (135-145); Total Protein 6.1 g/dL (6.5-8.0)
[2021-07-01] MEDS: levETIRAcetam Oral Soln 500 MG/5 ML 250 MG PO ×2 (08:16→21:22)
[2021-07-01] MEDS: metroNIDAZOLE/NS 500 MG/100 ML PIGGYBACK 100 MG IV (08:17)
[2021-07-01] MEDS: Potassium Chloride/H20 10 MEQ/100 ML PIGGYBACK 100 MEQ IV ×2 (08:27→09:58)
[2021-07-01 08:38] LABS: Magnesium 1.6 mg/dL (1.6-2.6)
--- NOTE | 2021-07-01 12:34 | P.CONAN_ITS ---
FORMERLY [facility], 1928–1983 Active Problems Active Problems: All Active Problems (Updated 06/29/21 @ 12:54 by Favian Ruiz MD) Hypernatremia (Acute) Metabolic acidosis (Acute) Hypokalemia (Acute) VI (acute kidney injury) (Acute) Septic shock (Acute) History of CVA (cerebrovascular accident) (Acute) Acute UTI (Acute) Urinary tract infection (Acute) UTI (urinary tract infection) (Acute) C. 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 (Acute) Dysarthria due to acute cerebellar cerebrovascular accident (CVA) (Acute) Essential hypertension (Acute) Dyslipidemia (Acute) Acute renal failure superimposed on stage 2 chronic kidney disease (Acute) Urine incontinence (Acute) Stage I pressure ulcer of buttock (Acute) Dysphagia (Acute) Wheelchair bound (Acute) Stage II pressure ulcer of buttock (Acute) Right arm pain (Acute) Right leg pain (Acute) COVID-19 (Acute) HTN (hypertension) (Acute) Hypernatremia (Acute) COVID-19 (Acute) VI (acute kidney injury) (Acute) Pressure ulcer of sacral region, stage 2 (Acute) Decubitus ulcer of both heels, stage 1 (Acute) Past Medical History Medical History C. 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 Mother No problems noted. Surgical History Surgical History No pertinent past surgical history Social History Social History Household Members: None [phone] Housing: [facility] Are you a primary health care technician to a significant other at home: No Do you presently have visiting nurse or other home services: No Unable to assess alcohol history related to: Unable to respond Alcohol intake: unknown Patient Tobacco Use Status: Tobacco use Unknown Advance Directives Date on File: 02/14/20 service: No Current occupational status: disabled Meds Allergies Allergy/AdvReac Type Severity Reaction Status Date / Time No Known Allergies Allergy Verified 04/23/21 13:47 [No Known Allergies*] Active Medications: Current Medications Acetaminophen (Acetaminophen 325 Mg Tablet) 650 mg PO Q6H PRN PRN Reason: Pain, Mild (Pain Scale 1-3) Last Admin: 06/29/21 09:51 Dose: 650 mg Documented by: Heparin Sodium (Porcine) (Heparin Sodium,Porcine 5,000 Unit/Ml Vial) 5,000 unit SUBCUT Q12H ON LICENSE OF [facility] Last Admin: 07/01/21 08:09 Dose: Not Given Documented by: Metronidazole (Flagyl) 500 mg in 100 mls @ 100 mls/hr IV Q8H ON LICENSE OF [facility] Last Infusion: 07/01/21 09:58 Dose: Infused Documented by: Ceftriaxone Sodium 1 gm/ (Sodium Chloride) 50 mls @ 100 mls/hr IV Q24H ON LICENSE OF [facility] Last Infusion: 06/30/21 11:33 Dose: Infused Documented by: Levetiracetam (Levetiracetam Oral Soln 500 Mg/5 Ml) 250 mg PO BID ON LICENSE OF [facility] Last Admin: 07/01/21 08:16 Dose: 250 mg Documented by: Pharmacy Consult (Consult Rx Perform Med Rec) 1 each MISCELLANE ONCE PRN PRN Reason: Consult order Sodium Chloride (0.9 % Sodium Chloride Flush 3 Ml Syringe) 3 ml IVFLUSH QSHIFT ON LICENSE OF [facility] Last Admin: 07/01/21 08:18 Dose: 3 ml Documented by: Home Medications Medication Instructions Recorded Confirmed Last Taken Type atorvastatin 80 mg tablet 80 mg PO BEDTIME 04/25/20 06/23/21 Unknown History amlodipine 5 mg tablet 5 mg PO DAILY 06/20/20 06/23/21 06/23/21 History acetaminophen 325 mg tablet 650 mg PO Q4H PRN 02/16/21 06/23/21 Unknown History bisacodyl 10 mg rectal suppository 10 mg TX DAILY PRN 02/16/21 06/23/21 Unknown History calcium carbonate 600 mg-vitamin 1 tab PO BID 02/16/21 06/23/21 Unknown History D3 5 mcg (200 unit) tablet lidocaine 5 % topical patch 1 patch TOPICAL DAILY 02/16/21 06/23/21 Unknown History magnesium citrate (Citrate of 300 ml PO DAILY PRN 02/16/21 06/23/21 Unknown History Magnesia) magnesium hydroxide 400 mg/5 mL 30 ml PO DAILY PRN 02/16/21 06/23/21 Unknown History oral suspension (Milk of Magnesia) levetiracetam 100 mg/mL oral 2.5 ml PO BID 02/26/21 06/23/21 06/23/21 History solution naloxone 4 mg/actuation nasal spray 4 mg INTRANASAL ONCE PRN 02/26/21 06/23/21 Unknown History potassium chloride 20 mEq 1 tab PO DAILY 06/23/21 06/23/21 Unknown History tablet,extended release(part/cryst) vancomycin 25 mg/mL oral solution 125 mg PO TID 06/23/21 06/23/21 Unknown History (Firluisq) Exam Exam Date and Time: July 01, 2021 1234 Height,Weight and Vital Signs: Height 5 ft 8 in Weight 98.2 kg Last Vital Signs Temp 97 F 07/01/21 12:21 Pulse 56 07/01/21 12:21 Resp 19 07/01/21 12:21 BP 177/86 H 07/01/21 12:21 Pulse Ox 98 07/01/21 12:21 Pertinent Lab Results Pertinent Lab Results: Laboratory Tests 06/23/21 06/23/21 06/23/21 15:01 15:01 15:02 WBC 17.5 H RBC 2.91 L Hgb 9.6 L Hct 28.7 L MCV 98.6 H MCH 33.0 MCHC 33.4 RDW 15.3 Plt Count 214 MPV 9.3 L Immature Gran % (Auto) 0.5 H Neut % (Auto) 80.0 H Lymph % (Auto) 10.2 L Wetzel % (Auto) 6.0 Eos % (Auto) 3.1 Baso % (Auto) 0.2 Lymph # (Auto) 1.8 Wetzel # (Auto) 1.1 Eos # (Auto) 0.6 H Baso # (Auto) 0.0 Abs Immat Gran (auto) 0.08 H Absolute Neuts (auto) 14.0 H Absolute Nucleated RBC 0.000 Nucleated RBC % (auto) 0.0 PT INR VBG pH VBG pCO2 VBG pO2 VBG HCO3 VBG O2 Saturation VBG Base Excess Sodium 136 Potassium 4.1 D Chloride 104 Carbon Dioxide 22 Anion Gap 14 BUN 65 H D Creatinine 4.03 H* Estim Creat Clear Calc TNP Estimated GFR 15 POC Glucose Random Glucose 107 Fasting Glucose Lactic Acid 1.7 Calcium 8.4 Phosphorus Magnesium 1.9 Total Bilirubin 1.1 H Direct Bilirubin 0.5 AST 9 ALT 14 Alkaline Phosphatase 67 D Troponin I High Sens Total Protein 5.2 L Albumin 2.5 L Lipase 9 Urine Color Urine Appearance Urine pH Ur Specific Sunset Urine Protein Urine Glucose (UA) Urine Ketones Urine Blood Urine Nitrite Ur Leukocyte Esterase Urine RBC Urine WBC Ur Squamous Epith Cells Urine Bacteria Ur Random Sodium Urine Opiates Screen Urine Fentanyl Screen Ur Barbiturates Screen Ur Phencyclidine Scrn Ur Amphetamines Screen U Benzodiazepines Scrn Urine Cocaine Screen U Marijuana (THC) Screen C. difficile Tox B Gene C. difficile Toxin A&B C. difficile Interpret COVID-19 ([facility]) COVID-19 Clin Com 06/23/21 06/23/21 06/23/21 15:02 15:02 15:02 WBC RBC Hgb Hct MCV MCH MCHC RDW Plt Count MPV Immature Gran % (Auto) Neut % (Auto) Lymph % (Auto) Wetzel % (Auto) Eos % (Auto) Baso % (Auto) Lymph # (Auto) [place]zel # (Auto) Eos # (Auto) Baso # (Auto) Abs Immat Gran (auto) Absolute Neuts (auto) Absolute Nucleated RBC Nucleated RBC % (auto) PT 17.8 H INR 1.6 H VBG pH VBG pCO2 VBG pO2 VBG HCO3 VBG O2 Saturation VBG Base Excess Sodium Potassium Chloride Carbon Dioxide Anion Gap BUN Creatinine Estim Creat Clear Calc Estimated GFR POC Glucose Random Glucose Fasting Glucose Lactic Acid Calcium Phosphorus Magnesium Total Bilirubin Direct Bilirubin AST ALT Alkaline Phosphatase Troponin I High Sens 15.8 D Total Protein Albumin Lipase Urine Color Urine Appearance Urine pH Ur Specific [place] Urine Protein Urine Glucose (UA) Urine Ketones Urine Blood Urine Nitrite Ur Leukocyte Esterase Urine RBC Urine WBC Ur Squamous Epith Cells Urine Bacteria Ur Random Sodium Urine Opiates Screen Urine Fentanyl Screen Ur Barbiturates Screen Ur Phencyclidine Scrn Ur Amphetamines Screen U Benzodiazepines Scrn Urine Cocaine Screen U Marijuana (THC) Screen C. difficile Tox B Gene C. difficile Toxin A&B C. difficile Interpret COVID-19 ([facility]) Negative COVID-19 Clin Com See Note 06/23/21 06/23/21 06/23/21 18:59 18:59 18:59 WBC RBC Hgb Hct MCV MCH MCHC RDW Plt Count MPV Immature Gran % (Auto) Neut % (Auto) Lymph % (Auto) Wetzel % (Auto) Eos % (Auto) Baso % (Auto) Lymph # (Auto) Wetzel # (Auto) Eos # (Auto) Baso # (Auto) Abs Immat Gran (auto) Absolute Neuts (auto) Absolute Nucleated RBC Nucleated RBC % (auto) PT INR VBG pH VBG pCO2 VBG pO2 VBG HCO3 VBG O2 Saturation VBG Base Excess Sodium Potassium Chloride Carbon Dioxide Anion Gap BUN Creatinine Estim Creat Clear Calc Estimated GFR POC Glucose Random Glucose Fasting Glucose Lactic Acid Calcium Phosphorus Magnesium Total Bilirubin Direct Bilirubin AST ALT Alkaline Phosphatase Troponin I High Sens Total Protein Albumin Lipase Urine Color YELLOW Urine Appearance TURBID Urine pH 7.0 Ur Specific Sunset 1.015 Urine Protein TRACE Urine Glucose (UA) NEG Urine Ketones 5 Urine Blood 3+ H Urine Nitrite NEG Ur Leukocyte Esterase 3+ H Urine RBC 0-2 Urine WBC TNTC H Ur Squamous Epith Cells NONE Urine Bacteria 2+ Ur Random Sodium Urine Opiates Screen Not Detected Urine Fentanyl Screen Not Detected Ur Barbiturates Screen Not Detected Ur Phencyclidine Scrn Not Detected Ur Amphetamines Screen Not Detected U Benzodiazepines Scrn Not Detected Urine Cocaine Screen Not Detected U Marijuana (THC) Screen Not Detected C. difficile Tox B Gene POSITIVE A* C. difficile Toxin A&B Negative C. difficile Interpret SEE NOTE COVID-19 ([facility]) COVID-19 Clin Com 06/23/21 06/24/21 06/24/21 21:55 03:34 07:14 WBC 13.0 H RBC 2.54 L Hgb 8.2 L Hct 24.8 L MCV 97.6 MCH 32.3 MCHC 33.1 RDW 14.9 Plt Count 155 L D MPV 9.4 Immature Gran % (Auto) 0.5 H Neut % (Auto) 83.8 H Lymph % (Auto) 9.7 L Wetzel % (Auto) 5.7 Eos % (Auto) 0.2 Baso % (Auto) 0.1 Lymph # (Auto) 1.3 Wetzel # (Auto) 0.7 Eos # (Auto) 0.0 Baso # (Auto) 0.0 Abs Immat Gran (auto) 0.06 H Absolute Neuts (auto) 10.9 H Absolute Nucleated RBC 0.000 Nucleated RBC % (auto) 0.0 PT INR VBG pH VBG pCO2 VBG pO2 VBG HCO3 VBG O2 Saturation VBG Base Excess Sodium 138 Potassium 3.5 Chloride 107 Carbon Dioxide 20 L Anion Gap 15 BUN 60 H Creatinine 3.82 H Estim Creat Clear Calc 18.4 Estimated GFR 16 POC Glucose Random Glucose 107 Fasting Glucose Lactic Acid Calcium 8.3 L Phosphorus Magnesium Total Bilirubin Direct Bilirubin AST ALT Alkaline Phosphatase Troponin I High Sens Total Protein Albumin Lipase Urine Color Urine Appearance Urine pH Ur Specific Sun[place] Urine Protein Urine Glucose (UA) Urine Ketones Urine Blood Urine Nitrite Ur Leukocyte Esterase Urine RBC Urine WBC Ur Squamous Epith Cells Urine Bacteria Ur Random Sodium Urine Opiates Screen Urine Fentanyl Screen Ur Barbiturates Screen Ur Phencyclidine Scrn Ur Amphetamines Screen U Benzodiazepines Scrn Urine Cocaine Screen U Marijuana (THC) Screen C. difficile Tox B Gene POSITIVE A* C. difficile Toxin A&B Positive A* C. difficile Interpret SEE NOTE COVID-19 ([facility]) COVID-19 Clin Com 06/24/21 06/24/21 06/25/21 07:14 23:13 08:36 WBC 9.2 RBC 2.77 L Hgb 9.0 L Hct 27.3 L MCV 98.6 H MCH 32.5 MCHC 33.0 RDW 14.6 Plt Count 173 MPV 9.5 Immature Gran % (Auto) 0.3 Neut % (Auto) 78.8 H Lymph % (Auto) 13.7 L Wetzel % (Auto) 6.2 Eos % (Auto) 0.8 Baso % (Auto) 0.2 Lymph # (Auto) 1.3 Wetzel # (Auto) 0.6 Eos # (Auto) 0.1 Baso # (Auto) 0.0 Abs Immat Gran (auto) 0.03 Absolute Neuts (auto) 7.3 Absolute Nucleated RBC 0.000 Nucleated RBC % (auto) 0.0 PT INR VBG pH VBG pCO2 VBG pO2 VBG HCO3 VBG O2 Saturation VBG Base Excess Sodium 138 Potassium 3.0 L Chloride 109 H Carbon Dioxide 18 L Anion Gap 14 BUN 63 H Creatinine 3.54 H Estim Creat Clear Calc 19.8 Estimated GFR 17 POC Glucose Random Glucose 89 Fasting Glucose Lactic Acid Calcium 8.2 L Phosphorus Magnesium Total Bilirubin Direct Bilirubin AST ALT Alkaline Phosphatase Troponin I High Sens Total Protein Albumin Lipase Urine Color Urine Appearance Urine pH Ur Specific Sun[place] Urine Protein Urine Glucose (UA) Urine Ketones Urine Blood Urine Nitrite Ur Leukocyte Esterase Urine RBC Urine WBC Ur Squamous Epith Cells Urine Bacteria Ur Random Sodium 56.0 Urine Opiates Screen Urine Fentanyl Screen Ur Barbiturates Screen Ur Phencyclidine Scrn Ur Amphetamines Screen U Benzodiazepines Scrn Urine Cocaine Screen U Marijuana (THC) Screen C. difficile Tox B Gene C. difficile Toxin A&B C. difficile Interpret COVID-19 ([facility]) COVID-19 Clin Com 06/25/21 06/25/21 06/25/21 08:36 13:10 18:52 WBC 6.6 RBC 2.43 L Hgb 7.8 L Hct 23.8 L MCV 97.9 MCH 32.1 MCHC 32.8 RDW 14.6 Plt Count 156 L MPV 9.5 Immature Gran % (Auto) 0.5 H Neut % (Auto) 79.2 H Lymph % (Auto) 13.1 L [place]zel % (Auto) 6.2 Eos % (Auto) 0.8 Baso % (Auto) 0.2 Lymph # (Auto) 0.9 L [place]zel # (Auto) 0.4 Eos # (Auto) 0.1 Baso # (Auto) 0.0 Abs Immat Gran (auto) 0.03 Absolute Neuts (auto) 5.3 Absolute Nucleated RBC 0.000 Nucleated RBC % (auto) 0.0 PT INR VBG pH VBG pCO2 VBG pO2 VBG HCO3 VBG O2 Saturation VBG Base Excess Sodium 142 Potassium 3.0 L Chloride 113 H Carbon Dioxide 14 L Anion Gap 18 BUN 64 H Creatinine 3.20 H Estim Creat Clear Calc 21.9 Estimated GFR 20 POC Glucose Random Glucose Fasting Glucose 73 D Lactic Acid 1.4 Calcium 8.2 L Phosphorus Magnesium Total Bilirubin 0.7 Direct Bilirubin AST 17 D ALT 22 Alkaline Phosphatase 68 Troponin I High Sens Total Protein 5.2 L Albumin 2.6 L Lipase Urine Color Urine Appearance Urine pH Ur Specific [place] Urine Protein Urine Glucose (UA) Urine Ketones Urine Blood Urine Nitrite Ur Leukocyte Esterase Urine RBC Urine WBC Ur Squamous Epith Cells Urine Bacteria Ur Random Sodium Urine Opiates Screen Urine Fentanyl Screen Ur Barbiturates Screen Ur Phencyclidine Scrn Ur Amphetamines Screen U Benzodiazepines Scrn Urine Cocaine Screen U Marijuana (THC) Screen C. difficile Tox B Gene C. difficile Toxin A&B C. difficile Interpret COVID-19 ([facility]) COVID-19 Clin Com 06/25/21 06/26/21 06/26/21 18:52 05:42 05:46 WBC 5.2 RBC 2.43 L Hgb 7.9 L Hct 23.3 L MCV 95.9 MCH 32.5 MCHC 33.9 RDW 14.5 Plt Count 152 L MPV 9.2 L Immature Gran % (Auto) 0.4 Neut % (Auto) 70.0 Lymph % (Auto) 19.5 L Wetzel % (Auto) 8.2 Eos % (Auto) 1.7 Baso % (Auto) 0.2 Lymph # (Auto) 1.0 L [place] # (Auto) 0.4 Eos # (Auto) 0.1 Baso # (Auto) 0.0 Abs Immat Gran (auto) 0.02 Absolute Neuts (auto) 3.7 Absolute Nucleated RBC 0.000 Nucleated RBC % (auto) 0.0 PT INR VBG pH 7.40 VBG pCO2 28 VBG pO2 92 VBG HCO3 17 L VBG O2 Saturation 98.0 VBG Base Excess -5.9 Sodium 145 Potassium 2.8 L Chloride 114 H Carbon Dioxide 18 L Anion Gap 16 BUN 56 H Creatinine 2.63 H Estim Creat Clear Calc 26.7 Estimated GFR 24 POC Glucose Random Glucose 80 Fasting Glucose Lactic Acid Calcium 8.0 L Phosphorus 4.1 Magnesium 1.9 Total Bilirubin Direct Bilirubin AST ALT Alkaline Phosphatase Troponin I High Sens Total Protein Albumin Lipase Urine Color Urine Appearance Urine pH Ur Specific [place] Urine Protein Urine Glucose (UA) Urine Ketones Urine Blood Urine Nitrite Ur Leukocyte Esterase Urine RBC Urine WBC Ur Squamous Epith Cells Urine Bacteria Ur Random Sodium Urine Opiates Screen Urine Fentanyl Screen Ur Barbiturates Screen Ur Phencyclidine Scrn Ur Amphetamines Screen U Benzodiazepines Scrn Urine Cocaine Screen U Marijuana (THC) Screen C. difficile Tox B Gene C. difficile Toxin A&B C. difficile Interpret COVID-19 ([facility]) COVID-19 Clin Com 06/26/21 06/27/21 06/27/21 05:46 06:37 06:37 WBC 5.1 RBC 2.49 L Hgb 7.9 L Hct 24.1 L MCV 96.8 MCH 31.7 MCHC 32.8 RDW 14.6 Plt Count 173 MPV 9.7 Immature Gran % (Auto) 0.4 Neut % (Auto) 59.9 Lymph % (Auto) 27.3 [place]zel % (Auto) 10.8 Eos % (Auto) 1.2 Baso % (Auto) 0.4 Lymph # (Auto) 1.4 Wetzel # (Auto) 0.6 Eos # (Auto) 0.1 Baso # (Auto) 0.0 Abs Immat Gran (auto) 0.02 Absolute Neuts (auto) 3.1 Absolute Nucleated RBC 0.000 Nucleated RBC % (auto) 0.0 PT INR VBG pH VBG pCO2 VBG pO2 VBG HCO3 VBG O2 Saturation VBG Base Excess Sodium 145 147 H Potassium 3.4 D 3.2 L Chloride 118 H 120 H Carbon Dioxide 17 L 19 L Anion Gap 15 11 L BUN 52 H 45 H Creatinine 2.49 H 2.16 H Estim Creat Clear Calc 28.2 32.5 Estimated GFR 26 31 POC Glucose Random Glucose 90 119 H Fasting Glucose Lactic Acid Calcium 8.6 D 8.7 Phosphorus 3.4 2.9 Magnesium 1.9 1.9 Total Bilirubin 0.7 Direct Bilirubin AST 12 ALT 16 Alkaline Phosphatase 55 Troponin I High Sens Total Protein 5.4 L Albumin 3.6 D 3.5 Lipase Urine Color Urine Appearance Urine pH Ur Specific [place] Urine Protein Urine Glucose (UA) Urine Ketones Urine Blood Urine Nitrite Ur Leukocyte Esterase Urine RBC Urine WBC Ur Squamous Epith Cells Urine Bacteria Ur Random Sodium Urine Opiates Screen Urine Fentanyl Screen Ur Barbiturates Screen Ur Phencyclidine Scrn Ur Amphetamines Screen U Benzodiazepines Scrn Urine Cocaine Screen U Marijuana (THC) Screen C. difficile Tox B Gene C. difficile Toxin A&B C. difficile Interpret COVID-19 ([facility]) COVID-19 Clin Com 06/27/21 06/27/21 06/29/21 11:18 14:20 06:17 WBC 5.8 RBC 2.73 L Hgb 8.7 L Hct 26.3 L MCV 96.3 MCH 31.9 MCHC 33.1 RDW 14.7 Plt Count 208 MPV 9.3 L Immature Gran % (Auto) 0.3 Neut % (Auto) 59.7 Lymph % (Auto) 27.1 [place]zel % (Auto) 9.0 Eos % (Auto) 3.6 Baso % (Auto) 0.3 Lymph # (Auto) 1.6 [place]zel # (Auto) 0.5 Eos # (Auto) 0.2 Baso # (Auto) 0.0 Abs Immat Gran (auto) 0.02 Absolute Neuts (auto) 3.4 Absolute Nucleated RBC 0.000 Nucleated RBC % (auto) 0.0 PT INR VBG pH VBG pCO2 VBG pO2 VBG HCO3 VBG O2 Saturation VBG Base Excess Sodium Potassium Chloride Carbon Dioxide Anion Gap BUN Creatinine Estim Creat Clear Calc Estimated GFR POC Glucose 114 Random Glucose Fasting Glucose Lactic Acid Calcium Phosphorus Magnesium Total Bilirubin Direct Bilirubin AST ALT Alkaline Phosphatase Troponin I High Sens Total Protein Albumin Lipase Urine Color Urine Appearance Urine pH Ur Specific [place] Urine Protein Urine Glucose (UA) Urine Ketones Urine Blood Urine Nitrite Ur Leukocyte Esterase Urine RBC Urine WBC Ur Squamous Epith Cells Urine Bacteria Ur Random Sodium Urine Opiates Screen Urine Fentanyl Screen Ur Barbiturates Screen Ur Phencyclidine Scrn Ur Amphetamines Screen U Benzodiazepines Scrn Urine Cocaine Screen U Marijuana (THC) Screen C. difficile Tox B Gene C. difficile Toxin A&B C. difficile Interpret COVID-19 ([facility]) Invalid COVID-19 Clin Com See Note 06/29/21 06/30/21 06/30/21 06:17 06:00 06:00 WBC 4.5 L RBC 2.75 L Hgb 8.9 L Hct 26.8 L MCV 97.5 MCH 32.4 MCHC 33.2 RDW 14.5 Plt Count 225 MPV 9.1 L Immature Gran % (Auto) 0.4 Neut % (Auto) 56.9 Lymph % (Auto) 27.8 Wetzel % (Auto) 11.8 H Eos % (Auto) 2.7 Baso % (Auto) 0.4 Lymph # (Auto) 1.3 [place]zel # (Auto) 0.5 Eos # (Auto) 0.1 Baso # (Auto) 0.0 Abs Immat Gran (auto) 0.02 Absolute Neuts (auto) 2.6 Absolute Nucleated RBC 0.000 Nucleated RBC % (auto) 0.0 PT INR VBG pH VBG pCO2 VBG pO2 VBG HCO3 VBG O2 Saturation VBG Base Excess Sodium 149 H 147 H Potassium 3.0 L 2.9 L Chloride 117 H 110 H Carbon Dioxide 21 L 27 Anion Gap 14 13 BUN 25 H 17 H Creatinine 1.38 1.17 Estim Creat Clear Calc 50.9 59.7 Estimated GFR 52 > 60 POC Glucose Random Glucose Fasting Glucose 115 H D 114 H Lactic Acid Calcium 9.1 9.0 Phosphorus Magnesium Total Bilirubin 0.8 0.7 Direct Bilirubin AST 16 20 ALT 16 17 Alkaline Phosphatase 68 D 67 Troponin I High Sens Total Protein 5.9 L 6.0 L Albumin 3.5 3.5 Lipase Urine Color Urine Appearance Urine pH Ur Specific [place] Urine Protein Urine Glucose (UA) Urine Ketones Urine Blood Urine Nitrite Ur Leukocyte Esterase Urine RBC Urine WBC Ur Squamous Epith Cells Urine Bacteria Ur Random Sodium Urine Opiates Screen Urine Fentanyl Screen Ur Barbiturates Screen Ur Phencyclidine Scrn Ur Amphetamines Screen U Benzodiazepines Scrn Urine Cocaine Screen U Marijuana (THC) Screen C. difficile Tox B Gene C. difficile Toxin A&B C. difficile Interpret COVID-19 ([facility]) COVID-19 Clin Com 06/30/21 07/01/21 07/01/21 16:28 07:18 07:18 WBC 4.9 RBC 2.78 L Hgb 8.9 L Hct 26.5 L MCV 95.3 MCH 32.0 MCHC 33.6 RDW 14.3 Plt Count 227 MPV 8.7 L Immature Gran % (Auto) 0.6 H Neut % (Auto) 52.4 Lymph % (Auto) 33.9 [place]zel % (Auto) 10.3 Eos % (Auto) 2.6 Baso % (Auto) 0.2 Lymph # (Auto) 1.7 [place]zel # (Auto) 0.5 Eos # (Auto) 0.1 Baso # (Auto) 0.0 Abs Immat Gran (auto) 0.03 Absolute Neuts (auto) 2.6 Absolute Nucleated RBC 0.000 Nucleated RBC % (auto) 0.0 PT INR VBG pH VBG pCO2 VBG pO2 VBG HCO3 VBG O2 Saturation VBG Base Excess Sodium 147 H 146 H Potassium 3.2 L 3.0 L Chloride 111 H 110 H Carbon Dioxide 28 29 Anion Gap 11 L 10 L BUN 14 14 Creatinine 1.07 1.00 Estim Creat Clear Calc 65.3 82.5 Estimated GFR > 60 > 60 POC Glucose Random Glucose 102 Fasting Glucose 95 Lactic Acid Calcium 9.1 9.1 Phosphorus Magnesium 1.6 Total Bilirubin 0.9 Direct Bilirubin AST 23 ALT 17 Alkaline Phosphatase 71 Troponin I High Sens Total Protein 6.1 L Albumin 3.4 L Lipase Urine Color Urine Appearance Urine pH Ur Specific [place] Urine Protein Urine Glucose (UA) Urine Ketones Urine Blood Urine Nitrite Ur Leukocyte Esterase Urine RBC Urine WBC Ur Squamous Epith Cells Urine Bacteria Ur Random Sodium Urine Opiates Screen Urine Fentanyl Screen Ur Barbiturates Screen Ur Phencyclidine Scrn Ur Amphetamines Screen U Benzodiazepines Scrn Urine Cocaine Screen U Marijuana (THC) Screen C. difficile Tox B Gene C. difficile Toxin A&B C. difficile Interpret COVID-19 ([facility]) COVID-19 Clin Com
--- NOTE | 2021-07-01 12:54 | P.HPSUR_ITS ---
Pre-Procedural Eval Section A Date of Service: 07/01/21 The patient is an INPATIENT: Yes Changes since office visit: No Cold of Flu in the past 2 weeks, No New Medical Problems, No Changes in Medication and No Patient answered all questions The History & Physical has been completed within 30 days and I have reviewed it.: Yes Section B Chief Complaint: Severe Sepsis Allergies: Allergies Allergy/AdvReac Type Severity Reaction Status Date / Time No Known Allergies Allergy Verified 04/23/21 13:47 [No Known Allergies*] Review of Systems Sugical H&P ROS: Negative: Constitution, Cardiovascular, Respiratory, Neurological, Psychiatric, Hem-Onc, Allergic/Immunologic, Gastrointestinal, Genitourinary, Musculoskeletal, Integumentary, Endocrine and Eyes/Ears/Nose/Throat Exam Surgical H&P Exam: Normal: HEENT, Normal: Heart, Normal: Lungs, Normal: Extremit ies, Normal: Abdomen, Normal: Skin and Normal: Neurological Plan Diagnosis/Plan: Unchanged (cystoscopy, suprapubic tube placement) I have reviewed the history and physical and performed a pertinent physical examination on my patient. No changes have occurred unless specified.
[2021-07-01] MEDS: cefTRIAXone sodium 1 GM in 0.9 % Sodium Chloride 50 ML IV (14:50)
--- NOTE | 2021-07-01 14:55 | P.PNIM_ITS ---
Subjective Subjective Date of Service: 07/01/21 Interval History: This history was taken in Welsh from the patient. NPO for SPC placement today Denies complaints other than some back pain. Review of Systems Review of Systems: Yes all other systems are reviewed and are negative Physical Exam Vital Signs: Vital Signs: Last Vital Signs Temp 98.5 F 07/01/21 13:54 Pulse 48 L 07/01/21 14:23 Resp 16 07/01/21 14:23 BP 172/89 H 07/01/21 14:23 Pulse Ox 96 07/01/21 14:23 BMI result Body Mass Index 32.9 Gen: in no acute distress HEENT: sclera anicteric, moist mucus membranes Neck: supple Lungs: clear to auscultation bilaterally Heart: regular rate and rhythm, no murmurs Abd: soft, non-tender, non-distended Ext: no edema Skin: warm/well-perfused Neuro: alert, oriented to self, R hemiplegia Psych: restricted affect Objective Data Active Medications Acetaminophen (Acetaminophen 325 Mg Tablet) 650 mg PO Q6H PRN PRN Reason: Pain, Mild (Pain Scale 1-3) Last Admin: 06/29/21 09:51 Dose: 650 mg Documented by: IDRIS Heparin Sodium (Porcine) (Heparin Sodium,Porcine 5,000 Unit/Ml Vial) 5,000 unit SUBCUT Q12H [facility] Last Admin: 07/01/21 08:09 Dose: Not Given Documented by: ROVERTO Non-Admin Reason: pending surg Metronidazole (Flagyl) 500 mg in 100 mls @ 100 mls/hr IV Q8H [facility] Last Infusion: 07/01/21 09:58 Dose: 0 mls/hr Documented by: ROVERTO Ceftriaxone Sodium 1 gm/ (Sodium Chloride) 50 mls @ 100 mls/hr IV Q24H [facility] Last Admin: 07/01/21 14:50 Dose: 100 mls/hr Documented by: ROVERTO Levetiracetam (Levetiracetam Oral Soln 500 Mg/5 Ml) 250 mg PO BID [facility] Last Admin: 07/01/21 08:16 Dose: 250 mg Documented by: ROVERTO Pharmacy Consult (Consult Rx Perform Med Rec) 1 each MISCELLANE ONCE PRN PRN Reason: Consult order Sodium Chloride (0.9 % Sodium Chloride Flush 3 Ml Syringe) 3 ml IVFLUSH QSHIFT [facility] Last Admin: 07/01/21 08:18 Dose: 3 ml Documented by: ROVERTO Labs CBC & Chem 7: 07/01/21 07:18 07/01/21 07:18 Labs: Laboratory Results - last 24 hr 06/30/21 07/01/21 07/01/21 16:28 07:18 07:18 MCV 95.3 MCH 32.0 MCHC 33.6 RDW 14.3 Plt Count 227 MPV 8.7 L Immature Gran % (Auto) 0.6 H Neut % (Auto) 52.4 Lymph % (Auto) 33.9 [place] % (Auto) 10.3 Eos % (Auto) 2.6 Baso % (Auto) 0.2 Lymph # (Auto) 1.7 [place] # (Auto) 0.5 Eos # (Auto) 0.1 Baso # (Auto) 0.0 Abs Immat Gran (auto) 0.03 Absolute Neuts (auto) 2.6 Absolute Nucleated RBC 0.000 Nucleated RBC % (auto) 0.0 Anion Gap 11 L 10 L Estim Creat Clear Calc 65.3 82.5 Estimated GFR > 60 > 60 Random Glucose 102 Fasting Glucose 95 Calcium 9.1 9.1 Magnesium 1.6 Total Bilirubin 0.9 AST 23 ALT 17 Alkaline Phosphatase 71 Total Protein 6.1 L Albumin 3.4 L Microbiology Microbiology Results: Microbiology 06/25/21 13:10 Blood Culture - Final Blood - Venous No growth after 5 days. 06/25/21 13:03 Blood Culture - Final Blood - Venous No growth after 5 days. Assessment and Plan (1) Acute UTI: Status: Acute (2) C. difficile diarrhea: Status: Acute (3) VI (acute kidney injury): Status: Acute Plan hospital d#9 65yo M long-term SNF resident with HTN< HLD, hx CVA with residual R-sided weakness, chronic indwelling Walker, , history of COVID-19 infection, decubitus ulcer, dysarthria, history of recurrent UTI, history of C diff diarrhea presented to the hospital with hypotension admitted for UTI + C diff colitis ICU 06/25-06/26 for septic shock though did not require pressors # Klebsiella pneumoniae bacteremia/UTI associated with chronic Walker - on d#11/05 of ABX treatment, currently ceftriaxone - to OR for SPC today # C. diff colitis -on d#8 of treatment, switch IV metronidazole to PO vancomycin. 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 # VTE ppx - UFH In my clinical judgment, the patient requires continued hospitalization for the following reasons: operative intervention Quality Stroke Does the patient have a stroke diagnosis?: No VTE Prior VTE?: No VTE Risk Level:: Medical - moderate - high VTE Device Contraindication: Treatment Not Indicated VTE Drug Contraindication: N/A - Med Ordered
--- NOTE | 2021-07-01 15:19 | MHC.SLORD ---
Speech Language Pathology Order Status: Pt NPO for SPT placement today. Will re-attempt tomorrow.
[2021-07-01 15:57] LABS: COVID-19 Test Negative (Negative)
[2021-07-01] MEDS: vancomycin HCL 125 MG CAPSULE PO (17:54)
--- NOTE | 2021-07-01 20:52 | W.PM.OPN ---
Operative Note Operative Note Date of Service: 07/01/21 Narrative: PreOperative Diagnosis:?neurogenic bladder with iatrogenic hypospadias Post Operative Diagnosis:?neurogenic bladder with iatrogenic hypospadias Procedure:? 1. Cystoscopy 2. Suprapubic tube placement Surgeon: Dr Hardeep Sevilla Anesthesia:?Sedation plus local Indications for procedure: Following stroke had incomplete bladder emptying with urinary retention. Has iatrogenic hypospadias from long-term indwelling Finley catheter. Has been suffering from recurrent C diff. Procedure: After informed consent was verified the patient was brought to the operating room and placed in a supine position.? Anesthesia was administered per protocol. The patient was placed in a modified dorsal lithotomy position and prepped and draped in a sterile fashion. A safety pause was performed confirming patient identity, procedure and antibiotics. A 22 Georgian cystoscope was inserted per urethra. Bladder was examined in its entirety. No abnormalities seen. Air bubble was located at the dome of the bladder. A finder needle was inserted 2 fingerbreaths above the symphysis pubis on the abdomen into the bladder.? The needle was visualized in the bladder via cystoscopy. Local anesthetic was infiltrated subcutaneously around the needle introduction site. A small, 1cm horizontal incision was made.? A trocar introducer was advanced through the abdominal wall into the bladder under visualization. The obturator was removed and a 16 Fr finley catheter placed. 7cc was used to inflate the balloon. The external portion of the trocar was removed. Dressing was placed, the bladder was emptied, and a drainage bag was attached. The patient tolerated the procedure and was transferred in stable condition to the recovery area.
--- NOTE | 2021-07-01 21:07 | PM.PNNEP ---
Subjective Subjective Date of Service: 07/01/21 Interval history: CHart Reviewed. Events noted. Kinyarwanda -SPeaking patient Physical Exam Vital Signs: Vital Signs: Last Vital Signs Temp 98.8 F 07/01/21 19:56 Pulse 51 07/01/21 19:56 Resp 18 07/01/21 19:56 BP 185/82 H 07/01/21 19:56 Pulse Ox 99 07/01/21 19:56 BMI result Body Mass Index 32.9 Const: General: cooperative and no acute distress Orientation/consciousness: patient oriented x3 HEENT: Head: Yes normocephalic and Yes atraumatic Neck: Neck: Yes no JVD Resp: Auscultation: clear to auscultation bilaterally Cardio: Jugular venous distension: no JVD Rate: regular rate Rhythm: regular rhythm Heart sounds: S1 normal heart sound present and S2 normal heart sound present GI: Auscultation: normal bowel sounds Neuro: General: patient oriented x3 and no focal motor deficits Extrem: General: Yes no clubbing, cyanosis or edema Objective Data Labs CBC & Chem 7: 07/01/21 07:18 07/01/21 07:18 Labs: Laboratory Results - last 24 hr 07/01/21 07/01/21 07/01/21 07:18 07:18 15:29 WBC 4.9 RBC 2.78 L Hgb 8.9 L Hct 26.5 L MCV 95.3 MCH 32.0 MCHC 33.6 RDW 14.3 Plt Count 227 MPV 8.7 L Immature Gran % (Auto) 0.6 H Neut % (Auto) 52.4 Lymph % (Auto) 33.9 [place] % (Auto) 10.3 Eos % (Auto) 2.6 Baso % (Auto) 0.2 Lymph # (Auto) 1.7 [place] # (Auto) 0.5 Eos # (Auto) 0.1 Baso # (Auto) 0.0 Abs Immat Gran (auto) 0.03 Absolute Neuts (auto) 2.6 Absolute Nucleated RBC 0.000 Nucleated RBC % (auto) 0.0 Sodium 146 H Potassium 3.0 L Chloride 110 H Carbon Dioxide 29 Anion Gap 10 L BUN 14 Creatinine 1.00 Estim Creat Clear Calc 82.5 Estimated GFR > 60 Fasting Glucose 95 Calcium 9.1 Magnesium 1.6 Total Bilirubin 0.9 AST 23 ALT 17 Alkaline Phosphatase 71 Total Protein 6.1 L Albumin 3.4 L COVID-19 (GISELLE) Negative COVID-19 Clin Com See Note Microbiology Microbiology Results: Microbiology 06/25/21 13:10 Blood - Venous Blood Culture - Final No growth after 5 days. 06/25/21 13:03 Blood - Venous Blood Culture - Final No growth after 5 days. 06/23/21 16:22 Blood - Venous Blood Culture - Final No growth after 5 days. 06/23/21 19:28 Urine Catheterized - Walker Catheter Urine Culture - Preliminary Klebsiella pneumoniae Proteus mirabilis 06/23/21 15:02 Blood - Venous Blood Culture - Final Klebsiella pneumoniae Procedures Date of Service Date of Service: 07/01/21 Assessment & Plan Assessment and plan (1) VI (acute kidney injury): Status: Acute (2) Hypernatremia: Status: Acute (3) Hypokalemia: Status: Acute Plan kidney Cr better free water deficit ~ 2.3 liters. multifactorial VI in the setting of gram negative bacteremia and septic shock (hypotensive) -compromised kidney perfusion and tubular stress -obstructive uropathy due to urinary retention CT scan abdomen negative for hydronephrosis metabolic acidosis due to VI and GI bicarbonate loss normal baseline kidney function REC replace potassium with ongoing stool losses. Suggest improvement of FW intake. Hypotonic IVF if needed given hypernatremia. follow kidney function and electrolytes check iron panel for noted anemia. Time Spent With Patient Time: Total time spent is greater than 50% in coordination of care (as documented) at patient's floor/unit and/or counseling patient: Progress Note: Quality Stroke Does the patient have a stroke diagnosis?: No
[2021-07-01] MEDS: Heparin Sodium,Porcine 5,000 UNIT/ML VIAL 5000 UNIT SUBCUT (21:22)
[2021-07-02] VITALS (7 sets, daily range): BP systolic 150–185; BP diastolic 78–90; PULSE 51–75; RESP 14–20; TEMP 36.2–37.6; O2SAT 96–100; BMI 20.7
[2021-07-02] MEDS: vancomycin HCL 125 MG CAPSULE PO ×5 (00:20→20:30)
[2021-07-02 06:54] LABS: Anion Gap 12 (12-20); Blood Urea Nitrogen 17 mg/dL (9-16); Calcium 9.1 mg/dL (8.4-10.2); Carbon Dioxide 28 mmol/L (22-29); Chloride 110 mmol/L (96-108); Creatinine Clr Calc Pharmacy 53.7; Estimated Glomerular Filt Rate > 60; Glucose Random 85 mg/dL (60-115); Magnesium 1.6 mg/dL (1.6-2.6); Potassium 3.1 mmol/L (3.3-5.1); Sodium 147 mmol/L (135-145)
[2021-07-02] MEDS: Dextrose 5 % 1,000 ML 50 ML IVCONT (09:47)
[2021-07-02] MEDS: Potassium Chloride/H20 10 MEQ/100 ML PIGGYBACK 100 MEQ IV ×2 (09:49→12:18)
[2021-07-02] MEDS: amLODIPine Besylate 5 MG TABLET PO (09:53)
[2021-07-02] MEDS: Heparin Sodium,Porcine 5,000 UNIT/ML VIAL 5000 UNIT SUBCUT ×2 (09:53→20:31)
[2021-07-02] MEDS: Losartan Potassium 50 MG TABLET PO (09:53)
[2021-07-02] MEDS: levETIRAcetam Oral Soln 500 MG/5 ML 250 MG PO ×2 (09:53→20:31)
[2021-07-02] MEDS: 0.9 % Sodium Chloride Flush 3 ML SYRINGE IVFLUSH ×3 (09:53→20:31)
--- NOTE | 2021-07-02 11:04 | HO.POSTANES ---
Post Anesthesia Evaluation Post Anesthesia Evaluation Vital Signs: Vital Signs Temp Pulse Resp BP Pulse Ox 07/02/21 08:00 98.2 F 56 20 175/80 H 100 07/02/21 03:13 97.1 F 62 16 163/80 H 97 07/01/21 23:21 98.3 F 51 17 168/80 H 97 Anesthesia: General LMA Mental Status: Awake Pain Control: Satisfactory Nausea/Vomiting: None Hydration: Adequate Anesthesia-Related Issues: No Anes. Related Issues Comments: pt is post-CVA, he is non-communicative
--- NOTE | 2021-07-02 11:18 | MHC.SL.SWA ---
Speech Pathologist Impression: Oropharyngeal dysphagia Risk of Aspiration Due to: Neurological Condition Reduced Cognition Dysphasia Diet Status: No change Liquid Consistency and Strategies for Safe Swallow: Liquid Intake Recommendation: Netarts Thick Liquid Intake Strategies: No Straws Liquids by Teaspoon Only Solid Food Consistency: Dietary Recommendations: Pureed (NDD1) Additional Modifications to Solid Foods: Pt requires full assist for all meals, liquids by TSP only, NO STRAWS. Do not attempt if PT is lethargic, not engaged in having meal. Oral Medication Intake: Crushed with Puree Please contact the pharmacy regarding appropriate crushable or liquid drug formulations that are available whenever modified delivery is recommended. Compensatory Strategies and Precautions to be Taken for Safe Swallow: Sitting Upright (90 deg) No Straw Liquids from Spoon Small Bites and Sips Alternate Liquids/Solids Rate of Ingestion Change Oral Check Supervision While Eating and Drinking for Safe Swallow: Total Assistance (1:1) Swallowing Recommended Treatments: Compens. Strategy Educat. Recommendation for Speech: Inpatient Speech Therapy Frequency/Duration: TOOL CRIB CLERK will follow M-F for toleration of diet, re-assessment of swallow, upgrades if warranted. Hosiery Pairer Clinican/Clinical Fellow: No Supervisory Statement: I have reviewed and agree with the student/clinical fellow's documentation: N/A Speech Language Pathologist: Danielle Avery M.A., [facility], [place]-TOOL CRIB CLERK
[2021-07-02] MEDS: cefTRIAXone sodium 1 GM in 0.9 % Sodium Chloride 50 ML IV (11:30)
--- NOTE | 2021-07-02 11:36 | MHC.CM.PN ---
per rounds possible dc for tomorrow back to [facility]
--- NOTE | 2021-07-02 11:45 | MHC.CLN ---
F/U PT WITH INCREASED NUTRITION RISK R/T PRESSURE INJURY SEE FULL CLINICAL NUTRITION ASSESSMENT DATED 06/27/21 PO INTAKE PT WAS NPO 07/01 FOR PROCEDURE DIET RX: PUREED WITH NT LIQ-APPROPRIATE PT RECEIVING ENSURE BID AND LAURA BID PROVIDES 860KCALS, 45G PROTEIN FOR WOUND HEALING CONTINUE TO MONITOR PO INTAKE CLOSELY
--- NOTE | 2021-07-02 12:49 | P.PNIM_ITS ---
Subjective Subjective Date of Service: 07/02/21 Interval History: This history was taken in Lithuanian from the patient. SPC placed yesterday. No abd pain; diarrhea improved. Review of Systems Review of Systems: Yes all other systems are reviewed and are negative Physical Exam Vital Signs: Vital Signs: Last Vital Signs Temp 98.8 F 07/02/21 11:42 Pulse 75 07/02/21 11:42 Resp 18 07/02/21 11:42 BP 185/82 H 07/02/21 11:42 Pulse Ox 99 07/02/21 11:42 BMI result Body Mass Index 20.7 Gen: in no acute distress HEENT: sclera anicteric, moist mucus membranes Neck: supple Lungs: clear to auscultation bilaterally Heart: regular rate and rhythm, no murmurs Abd: soft, non-tender, non-distended : SPC draining clear urine Ext: no edema Skin: warm/well-perfused Neuro: alert, oriented to self, R hemiplegia Psych: restricted affect Objective Data Active Medications Acetaminophen (Acetaminophen 325 Mg Tablet) 650 mg PO Q6H PRN PRN Reason: Pain, Mild (Pain Scale 1-3) Last Admin: 06/29/21 09:51 Dose: 650 mg Documented by: IDRIS Amlodipine Besylate (Amlodipine Besylate 5 Mg Tablet) 5 mg PO DAILY [facility]; Protocol Last Admin: 07/02/21 09:53 Dose: 5 mg Documented by: KAYLIN Heparin Sodium (Porcine) (Heparin Sodium,Porcine 5,000 Unit/Ml Vial) 5,000 unit SUBCUT Q12H [facility] Last Admin: 07/02/21 09:53 Dose: 5,000 unit Documented by: KAYLIN Ceftriaxone Sodium 1 gm/ (Sodium Chloride) 50 mls @ 100 mls/hr IV Q24H [facility] Last Infusion: 07/02/21 12:23 Dose: 0 mls/hr Documented by: KAYLIN Dextrose (D5w) 1,000 mls @ 50 mls/hr IVCONT .Q20H [facility] Stop: 07/03/21 04:14 Last Admin: 07/02/21 09:47 Dose: 50 mls/hr Documented by: KAYLIN Levetiracetam (Levetiracetam Oral Soln 500 Mg/5 Ml) 250 mg PO BID [facility] Last Admin: 07/02/21 09:53 Dose: 250 mg Documented by: KAYLIN Losartan Potassium (Losartan Potassium 50 Mg Tablet) 50 mg PO DAILY [facility]; Protocol Last Admin: 07/02/21 09:53 Dose: 50 mg Documented by: KAYLIN Pharmacy Consult (Consult Rx Perform Med Rec) 1 each MISCELLANE ONCE PRN PRN Reason: Consult order Sodium Chloride (0.9 % Sodium Chloride Flush 3 Ml Syringe) 3 ml IVFLUSH QSHIFT [facility] Last Admin: 07/02/21 09:53 Dose: 3 ml Documented by: KAYLIN Vancomycin HCl (Vancomycin Hcl 125 Mg Capsule) 125 mg PO Q6H [facility] Last Admin: 07/02/21 12:19 Dose: 125 mg Documented by: KAYLIN Labs CBC & Chem 7: 07/01/21 07:18 07/02/21 06:08 Labs: Laboratory Results - last 24 hr 07/01/21 07/02/21 15:29 06:08 Anion Gap 12 Estim Creat Clear Calc 53.7 Estimated GFR > 60 Random Glucose 85 Calcium 9.1 Magnesium 1.6 COVID-19 (GISELLE) Negative COVID-19 Clin Com See Note Microbiology Microbiology Results: Microbiology 06/23/21 19:28 Urine Culture - Final Urine Catheterized - Walker Catheter Klebsiella pneumoniae Proteus mirabilis Assessment and Plan (1) Acute UTI: Status: Acute (2) C. difficile diarrhea: Status: Acute (3) VI (acute kidney injury): Status: Acute Plan hospital d#10 65yo M long-term SNF resident with HTN + HLD, hx CVA with residual R-sided weakness, chronic indwelling Walker, , history of COVID-19 infection, decubitus ulcer, dysarthria, history of recurrent UTI, history of C diff diarrhea presented to the hospital with hypotension admitted for UTI + C diff colitis ICU 06/25-06/26 for septic shock though did not require pressors # Klebsiella pneumoniae bacteremia/UTI associated with chronic Walker - on d#12/05 of ABX treatment, currently ceftriaxone - Walker replaced with SPC by Urology 07/01/21 # C. diff colitis -on d#9 of treatment, continue PO vancomycin until off ABX for bacteremia/UTI for at least 48h # VI - prerenal vs septic ATN; resolved p fluid resuscitation # anemia - suspect ACD, check iron studies, Hb stable # seizure disorder - continue levetiracetam # st 2 pressure ulcer buttocks - wound care consultation # HTN - resumed amlodipine yesterday. 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 # VTE ppx - UFH In my clinical judgment, the patient requires continued hospitalization for the following reasons: electrolyte abnormalities requiring IV repletion Quality Stroke Does the patient have a stroke diagnosis?: No VTE Prior VTE?: No VTE Risk Level:: Medical - moderate - high VTE Device Contraindication: Treatment Not Indicated VTE Drug Contraindication: N/A - Med Ordered
[2021-07-02 13:13] LABS: Iron 65 mcg/dL (45-160); Percent Iron Saturation 55 % (15-50); Total Iron Binding Capacity 118 mcg/dL (228-428); Unsaturated Iron Binding 53 ug/dL
--- NOTE | 2021-07-02 14:06 | PM.PNNEP ---
Subjective Subjective Date of Service: 07/02/21 Interval history: This history was taken in Indonesian from the patient. Chart Reviewed. Events noted. Physical Exam Vital Signs: Vital Signs: Last Vital Signs Temp 98.8 F 07/02/21 11:42 Pulse 75 07/02/21 11:42 Resp 18 07/02/21 11:42 BP 185/82 H 07/02/21 11:42 Pulse Ox 99 07/02/21 11:42 BMI result Body Mass Index 20.7 Const: General: cooperative, no acute distress and confusion Orientation/consciousness: confusion HEENT: Head: Yes normocephalic and Yes atraumatic Neck: Neck: Yes no JVD Resp: Effort & Inspection: normal respiratory effort Auscultation: clear to auscultation bilaterally Cardio: Jugular venous distension: no JVD Rate: regular rate Rhythm: regular rhythm Heart sounds: S1 normal heart sound present and S2 normal heart sound present GI: Auscultation: normal bowel sounds Neuro: General: confusion Extrem: General: Yes normal to inspection and Yes no clubbing, cyanosis or edema Psych: Attitude: cooperative Objective Data Labs CBC & Chem 7: 07/01/21 07:18 07/02/21 06:08 Labs: Laboratory Results - last 24 hr 07/01/21 07/02/21 15:29 06:08 Sodium 147 H Potassium 3.1 L Chloride 110 H Carbon Dioxide 28 Anion Gap 12 BUN 17 H Creatinine 1.18 Estim Creat Clear Calc 53.7 Estimated GFR > 60 Random Glucose 85 Calcium 9.1 Magnesium 1.6 Iron 65 TIBC 118 L % Saturation 55 H Unsat Iron Binding 53 COVID-19 (GISELLE) Negative COVID-19 Clin Com See Note Microbiology Microbiology Results: Microbiology 06/23/21 19:28 Urine Catheterized - Walker Catheter Urine Culture - Final Klebsiella pneumoniae Proteus mirabilis 06/25/21 13:10 Blood - Venous Blood Culture - Final No growth after 5 days. 06/25/21 13:03 Blood - Venous Blood Culture - Final No growth after 5 days. 06/23/21 16:22 Blood - Venous Blood Culture - Final No growth after 5 days. 06/23/21 15:02 Blood - Venous Blood Culture - Final Klebsiella pneumoniae Procedures Date of Service Date of Service: 07/02/21 Assessment & Plan Assessment and plan (1) VI (acute kidney injury): Status: Acute (2) Hypernatremia: Status: Acute Assessment and Plan: kidney Cr better free water deficit ~ 2.3 liters. multifactorial VI in the setting of gram negative bacteremia and septic shock (hypotensive) -compromised kidney perfusion and tubular stress -obstructive uropathy due to urinary retention CT scan abdomen negative for hydronephrosis metabolic acidosis due to VI and GI bicarbonate loss normal baseline kidney function REC replace potassium with ongoing stool losses. Suggest improvement of FW intake. Continue D5W as you are doing until po intake improves. htn noted. WOuld dc amlodipine and instead start 30 mg nifedipine XL daily in am. follow kidney function and electrolytes check iron panel for noted anemia. TSAT = 55% no indication for iron. (3) Hypokalemia: Status: Acute Time Spent With Patient Time: Total time spent is greater than 50% in coordination of care (as documented) at patient's floor/unit and/or counseling patient: Progress Note: Quality Stroke Does the patient have a stroke diagnosis?: No
[2021-07-03 03:15] VITALS: BP 148/79; PULSE 51; RESP 16; TEMP 36.6; O2SAT 99
[2021-07-03] MEDS: vancomycin HCL 125 MG CAPSULE PO (05:35)
[2021-07-03 06:42] LABS: Anion Gap 12 (12-20); Blood Urea Nitrogen 17 mg/dL (9-16); Calcium 9.3 mg/dL (8.4-10.2); Carbon Dioxide 29 mmol/L (22-29); Chloride 108 mmol/L (96-108); Creatinine Clr Calc Pharmacy 51.9; Estimated Glomerular Filt Rate 59; Glucose Random 109 mg/dL (60-115); Potassium 2.9 mmol/L (3.3-5.1); Sodium 146 mmol/L (135-145)
[2021-07-03 07:17] VITALS: BP 170/89; PULSE 55; RESP 18; TEMP 36.6; O2SAT 99
[2021-07-03 08:28] LABS: Magnesium 1.8 mg/dL (1.6-2.6)
[2021-07-03] MEDS: Losartan Potassium 50 MG TABLET 100 MG PO (10:13)
[2021-07-03] MEDS: amLODIPine Besylate 5 MG TABLET PO (10:14)
[2021-07-03] MEDS: levETIRAcetam Oral Soln 500 MG/5 ML 250 MG PO ×2 (10:14→21:37)
[2021-07-03] MEDS: 0.9 % Sodium Chloride Flush 3 ML SYRINGE IVFLUSH ×2 (10:14→21:40)
[2021-07-03] MEDS: Heparin Sodium,Porcine 5,000 UNIT/ML VIAL 5000 UNIT SUBCUT ×2 (10:14→21:37)
[2021-07-03] MEDS: Potassium Chloride/H20 10 MEQ/100 ML PIGGYBACK 100 MEQ IV ×4 (10:27→17:37)
[2021-07-03 11:18] VITALS: BP 156/78; PULSE 79; RESP 18; TEMP 37; O2SAT 97
--- NOTE | 2021-07-03 13:25 | P.PNIM_ITS ---
Subjective Subjective Date of Service: 07/03/21 Interval History: This history was taken in Thai from the patient. Ongoing diarrhea, abd discomfort. Review of Systems Review of Systems: Yes all other systems are reviewed and are negative Physical Exam Vital Signs: Vital Signs: Last Vital Signs Temp 98.6 F 07/03/21 11:18 Pulse 79 07/03/21 11:18 Resp 18 07/03/21 11:18 BP 156/78 H 07/03/21 11:18 Pulse Ox 97 07/03/21 11:18 BMI result Body Mass Index 20.7 Gen: in no acute distress HEENT: sclera anicteric, moist mucus membranes Neck: supple Lungs: clear to auscultation bilaterally Heart: regular rate and rhythm, no murmurs Abd: soft, diffuse tenderness without rebound/guarding : SPC draining clear urine Ext: no edema Skin: warm/well-perfused Neuro: alert, oriented to self, R hemiplegia Psych: restricted affect Objective Data Active Medications Acetaminophen (Acetaminophen 325 Mg Tablet) 650 mg PO Q6H PRN PRN Reason: Pain, Mild (Pain Scale 1-3) Last Admin: 06/29/21 09:51 Dose: 650 mg Documented by: IDRIS Amlodipine Besylate (Amlodipine Besylate 5 Mg Tablet) 5 mg PO DAILY [facility]; Protocol Last Admin: 07/03/21 10:14 Dose: 5 mg Documented by: KAREN Heparin Sodium (Porcine) (Heparin Sodium,Porcine 5,000 Unit/Ml Vial) 5,000 unit SUBCUT Q12H [facility] Last Admin: 07/03/21 10:14 Dose: 5,000 unit Documented by: KAREN Levetiracetam (Levetiracetam Oral Soln 500 Mg/5 Ml) 250 mg PO BID [facility] Last Admin: 07/03/21 10:14 Dose: 250 mg Documented by: KAREN Losartan Potassium (Losartan Potassium 50 Mg Tablet) 100 mg PO DAILY [facility]; Protocol Last Admin: 07/03/21 10:13 Dose: 100 mg Documented by: KAREN Pharmacy Consult (Consult Rx Perform Med Rec) 1 each MISCELLANE ONCE PRN PRN Reason: Consult order Potassium Chloride (Potassium Chloride Er 10 Meq Capsule.Er) 40 meq PO DAILY [facility] Last Admin: 07/03/21 10:13 Dose: 40 meq Documented by: KAREN Sodium Chloride (0.9 % Sodium Chloride Flush 3 Ml Syringe) 3 ml IVFLUSH QSHIFT [facility] Last Admin: 07/03/21 10:14 Dose: 3 ml Documented by: KAREN Vancomycin HCl (Vancomycin Hcl 125 Mg Capsule) 125 mg PO Q6H [facility] Last Admin: 07/03/21 05:35 Dose: 125 mg Documented by: ANTOIC Labs CBC & Chem 7: 07/01/21 07:18 07/03/21 06:04 Labs: Laboratory Results - last 24 hr 07/03/21 06:04 Anion Gap 12 Estim Creat Clear Calc 51.9 Estimated GFR 59 Random Glucose 109 Calcium 9.3 Magnesium 1.8 C-Reactive Protein 1.20 H Microbiology Microbiology Results: Microbiology 06/23/21 19:28 Urine Culture - Final Urine Catheterized - Walker Catheter Klebsiella pneumoniae Proteus mirabilis Assessment and Plan (1) Acute UTI: Status: Acute (2) C. difficile diarrhea: Status: Acute (3) VI (acute kidney injury): Status: Acute Plan hospital d#11 65yo M long-term SNF resident with HTN + HLD, hx CVA with residual R-sided weakness, chronic indwelling Walker, , history of COVID-19 infection, decubitus u lcer, dysarthria, history of recurrent UTI, history of C diff diarrhea presented to the hospital with hypotension admitted for UTI + C diff colitis ICU 06/25-06/26 for septic shock though did not require pressors # Klebsiella pneumoniae bacteremia/UTI associated with chronic Walker - on d#01/05 of ABX treatment, currently ceftriaxone - Walker replaced with SPC by Urology 07/01/21 # C. diff colitis -on d#10 of treatment but not responding well, change PO vancomycin to fidoxamicin, continue for 1 wk past ceftriaxone course # VI - prerenal vs septic ATN; resolved p fluid resuscitation # anemia - suspect ACD, Hb stable # seizure disorder - continue levetiracetam # st 2 pressure ulcer buttocks - wound care consultation # HTN - continue amlodipine, increase losartan # hypoK - replete IV + PO, recheck in AM # hyperNa - mild, encourage free H20 intake # hx CVA - per SWEATER DESIGNER, patient is on pureed food (NDD1) and nectar thick liquids.? # VTE ppx - UFH In my clinical judgment, the patient requires continued hospitalization for the following reasons: electrolyte abnormalities requiring IV repletion, uncontrolled Cdiff colitis Quality Stroke Does the patient have a stroke diagnosis?: No VTE Prior VTE?: No VTE Risk Level:: Medical - moderate - high VTE Device Contraindication: Treatment Not Indicated VTE Drug Contraindication: N/A - Med Ordered
[2021-07-03 15:11] VITALS: BP 122/71; PULSE 64; RESP 20; TEMP 36.7; O2SAT 98
--- NOTE | 2021-07-03 16:52 | HO.WOUNDCONS ---
History of Present Illness Data of Consult Service Date: 07/03/21 Requesting physician: Agus Graves Primary Care Provider: Lorraine Wiley MD [facility] Reason for consult: coccyx ulcer The pt is well known to us at the wound care clinic. has had decubitus ulcer treated for a long time. now admitted here with hypotnesion and c diff. was in the ICU but doing better. Wound on coccyx still present Review of Systems Review of Systems: Yes Unobtainable due to mental status PMFSH Medical History C. difficile diarrhea Cerebrovascular accident (CVA) involving left cerebral hemisphere COVID-19 Hemiplegia of right dominant side due to acute cerebrovascular disease High cholesterol History of CVA (cerebrovascular accident) HTN (hypertension) HTN (hypertension) Paroxysmal atrial fibrillation Septic shock Stroke UTI (urinary tract infection) UTI (urinary tract infection) due to urinary indwelling Walker catheter Functional capacity: wheelchair bound Family History Father No problems noted. Mother No problems noted. Surgical History No pertinent past surgical history Social History Household Members: None Household Members Other:: resides at [place], [place] ([phone]) Housing: Intermediate Are you a primary clinical care manager to a significant other at home: No Do you presently have visiting nurse or other home services: No Unable to assess alcohol history related to: Unable to respond Alcohol intake: unknown Patient Tobacco Use Status: Tobacco use Unknown Advance Directives Date on File: 02/14/20 service: No Current occupational status: disabled Meds Allergies Allergy/AdvReac Type Severity Reaction Status Date / Time No Known Allergies Allergy Verified 04/23/21 13:47 [No Known Allergies*] Home Medications Medication Instructions Recorded Confirmed Last Taken Type atorvastatin 80 mg tablet 80 mg PO BEDTIME 04/25/20 06/23/21 Unknown History amlodipine 5 mg tablet 5 mg PO DAILY 06/20/20 06/23/21 06/23/21 History acetaminophen 325 mg tablet 650 mg PO Q4H PRN 02/16/21 06/23/21 Unknown History bisacodyl 10 mg rectal suppository 10 mg [place] DAILY PRN 02/16/21 06/23/21 Unknown History calcium carbonate 600 mg-vitamin 1 tab PO BID 02/16/21 06/23/21 Unknown History D3 5 mcg (200 unit) tablet lidocaine 5 % topical patch 1 patch TOPICAL DAILY 02/16/21 06/23/21 Unknown History magnesium citrate (Citrate of 300 ml PO DAILY PRN 02/16/21 06/23/21 Unknown History Magnesia) magnesium hydroxide 400 mg/5 mL 30 ml PO DAILY PRN 02/16/21 06/23/21 Unknown History oral suspension (Milk of Magnesia) levetiracetam 100 mg/mL oral 2.5 ml PO BID 02/26/21 06/23/21 06/23/21 History solution naloxone 4 mg/actuation nasal spray 4 mg INTRANASAL ONCE PRN 02/26/21 06/23/21 Unknown History potassium chloride 20 mEq 1 tab PO DAILY 06/23/21 06/23/21 Unknown History tablet,extended release(part/cryst) Physical Exam Vital Signs and Narrative: Vital Signs: Last Vital Signs Temp 97.6 F 07/04/21 11:31 Pulse 68 07/04/21 11:31 Resp 19 07/04/21 11:31 BP 153/85 H 07/04/21 11:31 Pulse Ox 98 07/04/21 11:31 BMI result Body Mass Index 20.7 Skin: Other: pt not cooperative with questions or moving pt rolled and dressing removed - stage 2 wound present - crack but not very deep stool material surrounding but no cellulitis or infection Results Labs CBC and Chem 7: 07/01/21 07:18 07/04/21 05:40 Assessment and Plan (1) Stage II pressure ulcer of buttock: Status: Acute Plan 65 year old male with multiple med issues in hospital with c diff and undergoing treatment where he was hypotensive. He is paraplegic and has longstanding coccyx pressure injury treated at wound care clinic. wound much improved at this time keep barrier cream on the area and cover with alevyn. repositioning often is crucial and trying to keep him off the coccyx discussed with nursing team follow up with wound care team once dc
[2021-07-03 19:05] VITALS: BP 141/70; PULSE 78; RESP 20; TEMP 36.6; O2SAT 98
[2021-07-03] MEDS: Fidaxomicin 200 MG TABLET PO (22:10)
[2021-07-03 23:31] VITALS: BP 144/79; PULSE 60; RESP 18; TEMP 37.2; O2SAT 96
[2021-07-04 03:57] VITALS: BP 140/75; PULSE 61; RESP 17; TEMP 36.4; O2SAT 99
[2021-07-04 06:00] VITALS: BMI 20.7
[2021-07-04 06:25] LABS: Anion Gap 9 (12-20); Blood Urea Nitrogen 17 mg/dL (9-16); Calcium 9.1 mg/dL (8.4-10.2); Carbon Dioxide 28 mmol/L (22-29); Chloride 110 mmol/L (96-108); Creatinine Clr Calc Pharmacy 53.4; Estimated Glomerular Filt Rate > 60; Glucose Random 113 mg/dL (60-115); Magnesium 1.8 mg/dL (1.6-2.6); Potassium 3.6 mmol/L (3.3-5.1); Sodium 143 mmol/L (135-145)
[2021-07-04 07:39] VITALS: BP 145/81; PULSE 56; RESP 20; TEMP 36.7; O2SAT 99
[2021-07-04] MEDS: Heparin Sodium,Porcine 5,000 UNIT/ML VIAL 5000 UNIT SUBCUT (09:32)
[2021-07-04] MEDS: 0.9 % Sodium Chloride Flush 3 ML SYRINGE IVFLUSH ×2 (09:32→16:37)
[2021-07-04] MEDS: Fidaxomicin 200 MG TABLET PO (09:32)
[2021-07-04] MEDS: amLODIPine Besylate 5 MG TABLET PO (09:33)
[2021-07-04] MEDS: levETIRAcetam Oral Soln 500 MG/5 ML 250 MG PO (09:33)
[2021-07-04] MEDS: Losartan Potassium 50 MG TABLET 100 MG PO (09:33)
[2021-07-04 11:31] VITALS: BP 153/85; PULSE 68; RESP 19; TEMP 36.4; O2SAT 98
--- NOTE | 2021-07-04 11:34 | MHC.CLN ---
F/U PT WITH INCREASED NUTRITION RISK R/T PRESSURE INJURY SEE FULL CLINICAL NUTRITION ASSESSMENT DATED 06/27/21 PO INTAKE POOR 0-25% DIET RX: PUREED WITH NT LIQ-APPROPRIATE PT RECEIVING ENSURE BID AND LAURA BID PROVIDES 860KCALS, 45G PROTEIN FOR WOUND HEALING CONTINUE TO MONITOR PO INTAKE CLOSELY IF PO INTAKE DOES NOT IMPROVE; CONSIDER FAMILY TEAM MEETING TO DISCUSS PLAN OF CARE
--- NOTE | 2021-07-04 11:44 | P.DS_ITS ---
DS: Providers Provider Date of Service: 07/04/21 Date of admission: 06/23/21 20:43 Date of discharge: 07/04/21 Primary care physician: Lorraine Wiley MD Consults: 06/23/21 20:46 Consult to Infectious Diseases Routine Consulting Provider: Kelsey Benitez Reason for consultation: uti/c diff Consult to Urology Routine Consulting Provider: Hardeep Sevilla Reason for consultation: UTI; chronic finley 06/23/21 23:37 Consult to Nephrology Routine Consulting Provider: Eugene Reyna Reason for consultation: vi 07/03/21 13:28 Consult to Wound Care Routine Consulting [place] [facility] [place] Reason for consultation: stage 2 DS: Diagnosis Discharge Diagnosis (1) Acute UTI: Status: Acute (2) C. difficile diarrhea: Status: Acute (3) VI (acute kidney injury): Status: Acute (4) Hypernatremia: Status: Acute (5) Hypokalemia: Status: Acute (6) Septic shock: Status: Acute (7) UTI (urinary tract infection) due to urinary indwelling Finley catheter: Status: Acute (8) Stage II pressure ulcer of buttock: Status: Acute DS: Summary Hospital Course Hospital Course: from admission H+P by Norbert Barrett hospitalist, 06/23/21: 65-year-old male with a past medical history of hypertension, hyperlipidemia, history of CVA with residual right-sided deficits, chronic indwelling Finley, history of COVID-19 infection, decubitus ulcer, dysarthria, history of recurrent UTI, history of C diff diarrhea presented to the hospital with a chief complaint of hypotension.? Patient initially presented to the Urology office for suprapubic catheter placement given his chronic indwelling Finley has recurrent clogging.? Patient was noted to be hypotensive at the clinic and subsequently sent to the ER for further evaluation.? Patient is a poor historian.? Reportedly patient has been having generalized weakness and diarrhea.? Has been on p.o. vancomycin for C diff.? Patient denies any chest pain or palpitations.? Denies any fever chills cough.? Review of all other systems is limited.? ER course: Per ER team patient on presentation noted to have low blood pressure with sy stolic in 80s; patient was given aggressive IV hydration.? Later patient was noted to have significant urinary retention with bladder scan showing greater than 1000 cc of urine.? Finley catheter was clogged.? Finley was replaced and bladder was irrigated-noted extensive pyuria.? Patient was started on IV Zosyn.? Also continued p.o. vanc given positive C diff. On labs noted to have severe VI with creatinine of 4.0.? Admitted for further management. Hospital course by problem: This 65yo M long-term SNF resident with HTN + HLD, hx CVA with residual R-sided weakness and dysarthria, chronic indwelling Finley, history of COVID-19 infection, stage 2 decubitus ulcer, history of recurrent UTI, and history of C diff diarrhea presented to the hospital with hypotension and was admitted for UTI + C diff colitis. ICU 06/25-06/26 for septic shock though did not require pressors # septic shock due to Klebsiella pneumoniae bacteremia/UTI associated with chronic Finley He was admitted to the hospitalist service, but briefly stepped up to the ICU 06/25-06/26 for septic shock, though he did not end up requiring pressors. Blood cultures grew Klebsiella pneumoniae; urine culture grew K. pneumoniae plus Prote us mirabilis. He was treated with 11 days of IV beta-lactam therapy [pip/shashi, then ceftriaxone]. The Finley was replaced with a suprapubic catheter on 07/01/21. Blood cultures cleared. He was discharged with 3 more days of PO cefuroxime and needs Urology follow-up in 1-2 weeks. # C. diff colitis Treated with PO vancomycin then IV metronidazole, then back to PO vancomycin. Due to suboptimal response, swithced to PO fidoxamicin. He will complete 10 more days of fidoxamicin [1 week past the end of the course of beta-lactam]. # VI Prerenal vs septic ATN; resolved after fluid resuscitation. # Hypokalemia Repleted IV and PO; remains on PO maintenance dose. # Hypernatremia Resolved with IV and PO water repletion. He was discharged back to [facility] in [facility] for long-term nursing care. Time Spent with Patient Time attestation: Total time spent providing and/or coordinating discharge services: Discharge coordination time: Greater than 30 minutes Quality: Safe Use of Opioids Does Pt have an Active Cancer Diagnosis on the Problem List?: No Quality: Stroke Does the patient have a stroke diagnosis?: No Physical Exam Vital Signs: Vital Signs: Last Vital Signs Temp 97.6 F 07/04/21 11:31 Pulse 68 07/04/21 11:31 Resp 19 07/04/21 11:31 BP 153/85 H 07/04/21 11:31 Pulse Ox 98 07/04/21 11:31 BMI result Body Mass Index 20.7 Gen: in no acute distress HEENT: sclera anicteric, moist mucus membranes Neck: supple Lungs: clear to auscultation bilaterally Heart: regular rate and rhythm, no murmurs Abd: soft, diffuse tenderness without rebound/guarding : SPC draining clear urine Ext: no edema Skin: warm/well-perfused Neuro: alert, oriented to self, R hemiplegia + chronic dysarthria Psych: restricted affect DS: Data Data Completed and Pending Completed studies during hospitalization [Text1]: Laboratory Results WBC 4.9 X10*3/uL (4.8-10.8) 07/01/21 07:18 RBC 2.78 X10*6/uL (4.60-5.80) L 07/01/21 07:18 Hgb 8.9 g/dl (14.0-18.0) L 07/01/21 07:18 Hct 26.5 % (42.0-52.0) L 07/01/21 07:18 MCV 95.3 fL (80.0-98.0) 07/01/21 07:18 MCH 32.0 pg (27.0-33.0) 07/01/21 07:18 MCHC 33.6 g/dl (31.0-36.0) 07/01/21 07:18 RDW 14.3 % (11.0-16.0) 07/01/21 07:18 Plt Count 227 X10*3/uL (160-400) 07/01/21 07:18 MPV 8.7 fL (9.4-12.4) L 07/01/21 07:18 Immature Gran % (Auto) 0.6 % (0.0-0.4) H 07/01/21 07:18 Neut % (Auto) 52.4 % (45-73) 07/01/21 07:18 Lymph % (Auto) 33.9 % (20-40) 07/01/21 07:18 [place] % (Auto) 10.3 % (2-11) 07/01/21 07:18 Eos % (Auto) 2.6 % (0-4) 07/01/21 07:18 Baso % (Auto) 0.2 % (0-2) 07/01/21 07:18 Lymph # (Auto) 1.7 X10*3/uL (1.2-4.9) 07/01/21 07:18 [place] # (Auto) 0.5 X10*3/uL (0.1-1.2) 07/01/21 07:18 Eos # (Auto) 0.1 X10*3/uL (0.0-0.4) 07/01/21 07:18 Baso # (Auto) 0.0 X10*3/uL (0.0-0.2) 07/01/21 07:18 Abs Immat Gran (auto) 0.03 X10*3/uL (0.00-0.03) 07/01/21 07:18 Absolute Neuts (auto) 2.6 x10*3/uL (2.0-8.3) 07/01/21 07:18 Absolute Nucleated RBC 0.000 X10*3/uL (0.0-0.012) 07/01/21 07:18 Nucleated RBC % (auto) 0.0 /100WBC (0.0-0.2) 07/01/21 07:18 PT 17.8 SEC (9.9-13.0) H 06/23/21 15:02 INR 1.6 (0.9-1.1) H 06/23/21 15:02 VBG pH 7.40 (7.32-7.43) 06/26/21 05:42 VBG pCO2 28 mmHg 06/26/21 05:42 VBG pO2 92 mmHg 06/26/21 05:42 VBG HCO3 17 mmol/L (22-26) L 06/26/21 05:42 VBG O2 Saturation 98.0 % 06/26/21 05:42 VBG Base Excess -5.9 mmol/L 06/26/21 05:42 Sodium 143 mmol/L (135-145) 07/04/21 05:40 Potassium 3.6 mmol/L (3.3-5.1) D 07/04/21 05:40 Chloride 110 mmol/L (96-108) H 07/04/21 05:40 Carbon Dioxide 28 mmol/L (22-29) 07/04/21 05:40 Anion Gap 9 (12-20) L 07/04/21 05:40 BUN 17 mg/dL (9-16) H 07/04/21 05:40 Creatinine 1.19 mg/dL (0.5-1.4) 07/04/21 05:40 Estim Creat Clear Calc 53.4 07/04/21 05:40 Estimated GFR > 60 07/04/21 05:40 POC Glucose 114 mg/dL (60-115) 06/27/21 11:18 Random Glucose 113 mg/dL (60-115) 07/04/21 05:40 Fasting Glucose 95 mg/dL (60-99) 07/01/21 07:18 Lactic Acid 1.4 mmol/L (0.5-2.0) 06/25/21 13:10 Calcium 9.1 mg/dL (8.4-10.2) 07/04/21 05:40 Phosphorus 2.9 mg/dL (2.7-4.5) 06/27/21 06:37 Magnesium 1.8 mg/dL (1.6-2.6) 07/04/21 05:40 Iron 65 mcg/dL (45-160) 07/02/21 06:08 TIBC 118 mcg/dL (228-428) L 07/02/21 06:08 % Saturation 55 % (15-50) H 07/02/21 06:08 Unsat Iron Binding 53 ug/dL 07/02/21 06:08 Total Bilirubin 0.9 mg/dL (0.0-1.0) 07/01/21 07:18 Direct Bilirubin 0.5 mg/dL (0.0-0.5) 06/23/21 15:02 AST 23 U/L (5-37) 07/01/21 07:18 ALT 17 U/L (0-40) 07/01/21 07:18 Alkaline Phosphatase 71 U/L (39-117) 07/01/21 07:18 Troponin I High Sens 15.8 ng/L (<3.5-35.0) D 06/23/21 15:02 C-Reactive Protein 1.20 mg/dL (< or = 0.50) H 07/03/21 06:04 Total Protein 6.1 g/dL (6.5-8.0) L 07/01/21 07:18 Albumin 3.4 g/dL (3.5-5.0) L 07/01/21 07:18 Lipase 9 U/L (8-78) 06/23/21 15:02 Urine Color YELLOW 06/23/21 18:59 Urine Appearance TURBID 06/23/21 18:59 Urine pH 7.0 (5.0-8.0) 06/23/21 18:59 Ur Specific [place] 1.015 (1.005-1.025) 06/23/21 18:59 Urine Protein TRACE MG/DL (NEG-TRACE) 06/23/21 18:59 Urine Glucose (UA) NEG MG/DL (NEG) 06/23/21 18:59 Urine Ketones 5 MG/DL (NEG) 06/23/21 18:59 Urine Blood 3+ (NEG) H 06/23/21 18:59 Urine Nitrite NEG (NEG) 06/23/21 18:59 Ur Leukocyte Esterase 3+ (NEG) H 06/23/21 18:59 Urine RBC 0-2 /HPF (0) 06/23/21 18:59 Urine WBC TNTC /HPF (0-4) H 06/23/21 18:59 Ur Squamous Epith Cells NONE /LPF 06/23/21 18:59 Urine Bacteria 2+ /LPF 06/23/21 18:59 Ur Random Sodium 56.0 mmol/L 06/24/21 23:13 Urine Opiates Screen Not Detected (Not Detect) 06/23/21 18:59 Urine Fentanyl Screen Not Detected (Not Detect) 06/23/21 18:59 Ur Barbiturates Screen Not Detected (Not Detect) 06/23/21 18:59 Ur Phencyclidine Scrn Not Detected (Not Detect) 06/23/21 18:59 Ur Amphetamines Screen Not Detected (Not Detect) 06/23/21 18:59 U Benzodiazepines Scrn Not Detected (Not Detect) 06/23/21 18:59 Urine Cocaine Screen Not Detected (Not Detect) 06/23/21 18:59 U Marijuana (THC) Screen Not Detected (Not Detect) 06/23/21 18:59 C. difficile Tox B Gene POSITIVE (Negative) A* 06/24/21 03:34 C. difficile Toxin A&B Positive (Negative) A* 06/24/21 03:34 C. difficile Interpret SEE NOTE 06/24/21 03:34 COVID-19 (GISELLE) Negative (Negative) 07/01/21 15:29 COVID-19 Clin Com See Note 07/01/21 15:29 Impressions Chest X-Ray 06/23/21 14:33 IMPRESSION: No radiographic evidence of acute cardiopulmonary disease, unchanged since 02/15/2021. Abdomen/Pelvis CT 06/25/21 09:08 IMPRESSION: -Moderate to severe colonic stool burden suggesting constipation. -The rectum mucosal thickening involving the majority of the sigmoid colon and rectum. Colitis and proctitis are within the differential. -Tiny nonobstructing left renal calculi. -Suspected diffuse bladder wall thickening, poorly evaluated. -Diffusely decreased liver attenuation suggesting hepatic steatosis. Correlation with liver enzymes recommended. -Splenomegaly. Fleischner guidelines were followed. Microbiology 06/23/21 19:28 Urine Catheterized - Finley Catheter Urine Culture - Final Klebsiella pneumoniae Proteus mirabilis 06/25/21 13:10 Blood - Venous Blood Culture - Final No growth after 5 days. 06/25/21 13:03 Blood - Venous Blood Culture - Final No growth after 5 days. 06/23/21 16:22 Blood - Venous Blood Culture - Final No growth after 5 days. 06/23/21 15:02 Blood - Venous Blood Culture - Final Klebsiella pneumoniae Discharge Plan Discharge Patient Disposition: Xfer [facility] Discharge Diagnosis: Septic shock due to Klebsiella pneumoniae bacteremia/UTI associated with chronic Finley C. difficile colitis Acute kidney injury Hypokalemia Hypernatremia St 2 pressure ulcer of buttocks Referrals: zo arroyo [Other] - 1 Week Hardeep Sevilla MD [Physician] - 1 Week Lorraine Wiley MD [Primary Care Provider] - 1 Week Discharge Medications: New Dificid 200 mg Tablet 200 mg PO Q12H Qty: 20 0RF cefuroxime axetil 500 mg tablet 500 mg PO BID Qty: 6 0RF Continued (DME) wet wipes See Rx Instructions .ROUTE .MEDSUPPLY Qty: 5 3RF Rx Instructions: As directed (DME) miscellaneous medical supply Misc See Rx Instructions .ROUTE .MEDSUPPLY Qty: 1 0RF Rx Instructions: Full Electric Hospital Bed. DX: G81.91, I63.9, R13.10, I67.89; Daily, Duration: 999days/Lifetime. (DME) miscellaneous medical supply Misc See Rx Instructions .ROUTE .MEDSUPPLY Qty: 1 0RF Rx Instructions: Gait Belt, Dx: G81.91, I67.89. As Directed, Duration: 999 Days/Lifetime (DME) miscellaneous medical supply Misc See Rx Instructions .ROUTE .MEDSUPPLY Qty: 1 0RF Rx Instructions: Rosita Lift, DX: G81.91, I67.89. As directed, Duration: 999 days/Lifetime. (DME) miscellaneous medical supply Misc See Rx Instructions .ROUTE .MEDSUPPLY Qty: 1 0RF Rx Instructions: Tilt in Space Wheelchair, DX: G81.91, I67.89, R13.10, Z99.3. As directed, Duration: 999 days/Lifetime. atorvastatin 80 mg tablet 80 mg PO BEDTIME 0RF levetiracetam 100 mg/mL solution 2.5 ml PO BID 0RF naloxone 4 mg/actuation [place],Non-Aerosol 4 mg INTRANASAL ONCE PRN (Reason: Opioid Overdose) 0RF lidocaine 5 % adhesive patch,medicated 1 patch topical DAILY 0RF Rx Instructions: apply to right upper arm acetaminophen 325 mg Tablet 650 mg PO Q4H PRN (Reason: fever/pain) 0RF calcium carbonate-vitamin D3 600 mg-5 mcg (200 unit) Tablet 1 tab PO BID 0RF magnesium hydroxide [Milk of Magnesia] 400 mg/5 mL Suspension 30 ml PO DAILY PRN (Reason: Constipation) 0RF bisacodyl 10 mg Suppository 10 mg SC DAILY PRN (Reason: Constipation) 0RF magnesium citrate [Citrate of Magnesia] Solution 300 ml PO DAILY PRN (Reason: Constipation) 0RF potassium chloride 20 mEq tablet,ER particles/crystals 1 tab PO DAILY 0RF losartan 100 mg tablet 100 mg PO DAILY 90 Days Qty: 90 4RF gabapentin 300 mg capsule 300 mg PO BEDTIME 30 Days Qty: 30 0RF (DME) miscellaneous medical supply Misc See Rx Instructions .ROUTE .MEDSUPPLY Qty: 1 0RF Rx Instructions: RUE resting hand Splint/Sling As directed, Dx: G81.91, I67.89, duration 999 days/life time tamsulosin 0.4 mg capsule 0.4 mg PO BEDTIME 90 Days Qty: 90 1RF amlodipine 5 mg tablet 5 mg PO DAILY 0RF Discontinued Firvanq 25 mg/mL recon soln 125 mg PO TID 0RF Discharge Orders: Discharge Order (Routine); Ordered 07/04/21 Ordered By: Agus Graves Diet: advance to usual diet Activity on Discharge: As tolerated Stand Alone Forms: Patient Portal Discharge page Activity Restrictions/Additional Instructions: pureed food (NDD1) and nectar thick liquids. Care Plan Goals: Cure of bloodstream/urinary infection and Clostridium difficile colitis Health Concerns: Septic shock due to Klebsiella pneumoniae bacteremia/UTI associated with chronic Finley C. difficile colitis Acute kidney injury Hypokalemia Hypernatremia St 2 pressure ulcer of buttocks Plan of Treatment: Klebsiella pneumoniae bacteremia/UTI associated with chronic Finley: Suprapubic catheter placed 07/01/21; follow up with Urology in 1-2 weeks. Take cefuroxime 500 mg twice daily for 3 more days. C. difficile colitis: take fidoxamicin 200 mg twice daily for 10 more days [1 week past end of cefuroxime course] Acute kidney injury: resolved Hypokalemia: resolved; continue oral potassium chloride Hypernatremia: resolved St 2 pressure ulcer of buttocks: wound care Assessment: See discharge summary Patient Instructions: Suprapubic Cystostomy (DC)
--- NOTE | 2021-07-04 12:00 | MHC.CM.PN ---
PT CLEARED TO RETURN TO [facility] VIA ACTION BLS PENDING NEGATIVE COVID RESULTS CM CALLED PTS SON/HCP, WENDY PALMA [phone] AND INFORMED HIM OF DC SECOND IMM DELIVERED 07/02/21
--- NOTE | 2021-07-04 12:59 | MHC.CM.PN ---
Addendum entered by Karen Montaño 07/04/21 12:59: SON WENDY INFORMED OF DC PLAN/TIME HE IS IN AGREEMENT Original Note: PT CLEARED TO RETURN TO [facility] VIA ACTION BLS PENDING NEGATIVE COVID RESULTS CM WILL CALL PTS SON/HCP, WENDY PALMA [phone] TO INFORM HIM OF DC SECOND IMM DELIVERED 07/02/21
[2021-07-04 13:28] LABS: COVID-19 Test Negative (Negative); IDNOW Serial# 16C4AD1C
--- NOTE | 2021-07-04 17:05 | PM.PNNEP ---
Subjective Subjective Date of Service: 07/04/21 Interval history: Chart Reviewed. Events noted. Physical Exam Vital Signs: Vital Signs: Last Vital Signs Temp 97.6 F 07/04/21 11:31 Pulse 68 07/04/21 11:31 Resp 19 07/04/21 11:31 BP 153/85 H 07/04/21 11:31 Pulse Ox 98 07/04/21 11:31 BMI result Body Mass Index 20.7 Const: General: cooperative, comfortable and no acute distress HEENT: Head: Yes normocephalic Neck: Neck: Yes no JVD Resp: Auscultation: clear to auscultation bilaterally Cardio: Jugular venous distension: no JVD Rate: regular rate Rhythm: regular rhythm Heart sounds: S1 normal heart sound present and S2 normal heart sound present GI: Auscultation: normal bowel sounds Neuro: General: no focal motor deficits Extrem: General: Yes no clubbing, cyanosis or edema Objective Data Labs CBC & Chem 7: 07/01/21 07:18 07/04/21 05:40 Labs: Laboratory Results - last 24 hr 07/04/21 07/04/21 05:40 12:52 Sodium 143 Potassium 3.6 D Chloride 110 H Carbon Dioxide 28 Anion Gap 9 L BUN 17 H Creatinine 1.19 Estim Creat Clear Calc 53.4 Estimated GFR > 60 Random Glucose 113 Calcium 9.1 Magnesium 1.8 COVID-19 ([facility]) Negative COVID-19 Clin Com See Note Microbiology Microbiology Results: Microbiology 06/23/21 19:28 Urine Catheterized - Walker Catheter Urine Culture - Final Klebsiella pneumoniae Proteus mirabilis 06/25/21 13:10 Blood - Venous Blood Culture - Final No growth after 5 days. 06/25/21 13:03 Blood - Venous Blood Culture - Final No growth after 5 days. 06/23/21 16:22 Blood - Venous Blood Culture - Final No growth after 5 days. 06/23/21 15:02 Blood - Venous Blood Culture - Final Klebsiella pneumoniae Procedures Date of Service Date of Service: 07/04/21 Assessment & Plan Assessment and plan (1) Hypernatremia: Status: Acute (2) VI (acute kidney injury): Status: Acute Assessment and Plan: kidney Cr better free water deficit - improved. multifactorial VI in the setting of gram negative bacteremia and septic shock (hypotensive) -compromised kidney perfusion and tubular stress -obstructive uropathy due to urinary retention CT scan abdomen negative for hydronephrosis metabolic acidosis due to VI and GI bicarbonate loss normal baseline kidney function REC replace potassium with ongoing stool losses. follow kidney function and electrolytes check iron panel for noted anemia. TSAT = 55% no indication for iron. Time Spent With Patient Time: Total time spent is greater than 50% in coordination of care (as documented) at patient's floor/unit and/or counseling patient: Progress Note: Quality Stroke Does the patient have a stroke diagnosis?: No
== END 2021-07-04 18:21 | DRG 698 ==
LOC: HO.ED 18:26 → HO.EDOVER 21:41 → HO.ICU 06-25 16:42 → HO.IMC 06-26 16:19
PROVIDERS: Hospitalist; Internal Medicine Nephrology; Internal Medicine Pulmonary Disease; Urology; Admitting Provider Hospitalist; Emergency Provider Emergency Medicine; PCP Internal Medicine; Visit Provider Family Medicine
PROC: 0T9B40Z Drainage of Bladder with Drainage Device, Percutaneous Endoscopic Approach (ICD-10-PCS; CPT 51102; principal; 2021-07-01 12:30)
DX: T83.511A Infection and inflammatory reaction due to indwelling urethral catheter, initial encounter (principal); A41.9 Sepsis, unspecified organism; R65.21 Severe sepsis with septic shock; G81.91 Hemiplegia, unspecified affecting right dominant side; N17.9 Acute kidney failure, unspecified; A04.72 Enterocolitis due to Clostridium difficile, not specified as recurrent; E87.2 Acidosis; E87.0 Hyperosmolality and hypernatremia; N39.0 Urinary tract infection, site not specified; I12.9 Hypertensive chronic kidney disease with stage 1 through stage 4 chronic kidney disease, or unspecified chronic kidney disease; E87.6 Hypokalemia; N18.2 Chronic kidney disease, stage 2 (mild); B96.1 Klebsiella pneumoniae [K. pneumoniae] as the cause of diseases classified elsewhere; N31.9 Neuromuscular dysfunction of bladder, unspecified; R13.10 Dysphagia, unspecified; I69.822 Dysarthria following other cerebrovascular disease; G40.909 Epilepsy, unspecified, not intractable, without status epilepticus; E78.5 Hyperlipidemia, unspecified; D63.1 Anemia in chronic kidney disease; L89.152 Pressure ulcer of sacral region, stage 2; N36.8 Other specified disorders of urethra; L89.621 Pressure ulcer of left heel, stage 1; L89.611 Pressure ulcer of right heel, stage 1; Z87.440 Personal history of urinary (tract) infections; Z86.16 Personal history of COVID-19; Z79.899 Other long term (current) drug therapy
CPT/HCPCS: 36415; 51798; 71045; 74176; 80048; 80053; 80076; 80307; 81001; 82040; 82803; 82947; 83540; 83605; 83690; 83735; 84100; 84300; 84484; 85025; 85610; 86140; 87040; 87077; 87086; 87088; 87186; 87205; 87324; 87493; 87635; 92526; 92610; 93005; 96361; 96365; 96366; 96375; 99285; J0696; J1956; J2405; J2543; J3010; P9047

== ENCOUNTER → 2021-07-25 11:25 | Outpatient (BNVA) | payer MEDICARE, MEDICAID, SELFPAY | PROVIDERS: PCP Internal Medicine; Visit Provider Urology | DX: Z43.5 Encounter for attention to cystostomy (principal); N31.9 Neuromuscular dysfunction of bladder, unspecified; R33.9 Retention of urine, unspecified; Z86.73 Personal history of transient ischemic attack (TIA), and cerebral infarction without residual deficits | CPT/HCPCS: 51705; 99212 ==

== ENCOUNTER 2021-09-02 12:16 | Emergency (ER) | payer MEDICARE, SELFPAY ==
[2021-09-02 12:47] VITALS: BP 122/74; PULSE 77; O2SAT 98; BMI 22.1
--- NOTE | 2021-09-02 12:54 | ED.GENADULT ---
HPI - General Adult General Chief complaint: Neck Pain/Injury Stated complaint: R LEG & HEAD PAIN,UNK INJ,FROM SN[facility] PER EMS Time Seen by Provider: 09/02/21 12:46 Source: EMS Mode of arrival: EMS Limitations: other ( nonverbal) History of Present Illness HPI narrative: patient comes to the emergency room via EMS from the infectious disease office. Patient had an appointment today for a follow-up on a decubitus ulcer. The reason that the patient was sent to the emergency room is because they thought that the patient had headache and hand pain? patient is nonverbal, had a stroke. Patient answers yes and no. here in the emergency room, when we asked him if he has any pain, patient says he does not have a headache, does not have pain anywhere. However, patient keeps changing his answers, Sometimes he says yes, sometimes he says no Related Data Home Medications Medication Instructions Recorded Confirmed amlodipine 5 mg tablet 5 mg PO DAILY 06/20/20 06/23/21 acetaminophen 325 mg tablet 650 mg PO Q4H PRN fever/pain 02/16/21 06/23/21 bisacodyl 10 mg rectal suppository 10 mg HI DAILY PRN Constipation 02/16/21 06/23/21 calcium carbonate 600 mg-vitamin 1 tab PO BID 02/16/21 06/23/21 D3 5 mcg (200 unit) tablet lidocaine 5 % topical patch 1 patch topical DAILY 02/16/21 06/23/21 magnesium citrate (Citrate of 300 ml PO DAILY PRN Constipation 02/16/21 06/23/21 Magnesia) magnesium hydroxide 400 mg/5 mL 30 ml PO DAILY PRN Constipation 02/16/21 06/23/21 oral suspension (Milk of Magnesia) levetiracetam 100 mg/mL oral 2.5 ml PO BID 02/26/21 06/23/21 solution naloxone 4 mg/actuation nasal spray 4 mg intranasal ONCE PRN Opioid 02/26/21 06/23/21 Overdose potassium chloride 20 mEq 1 tab PO DAILY 06/23/21 06/23/21 tablet,extended release(part/cryst) Previous Rx's Medication Instructions Recorded losartan 100 mg tablet 100 mg PO DAILY 90 days #90 tabs 02/07/20 wet wipes #5 multiple units 03/12/20 tamsulosin 0.4 mg capsule 0.4 mg PO BEDTIME 90 days #90 caps 03/22/20 miscellaneous medical supply #1 ea 03/26/20 miscellaneous medical supply #1 ea 03/26/20 miscellaneous medical supply #1 ea 03/26/20 miscellaneous medical supply #1 ea 03/26/20 gabapentin 300 mg capsule 300 mg PO BEDTIME 30 days #30 caps 03/27/20 miscellaneous medical supply #1 ea 03/27/20 cefuroxime axetil 500 mg tablet 500 mg PO BID #6 tabs 07/04/21 fidaxomicin 200 mg tablet (Dificid) 200 mg PO Q12H #20 tabs 07/04/21 daptomycin 500 mg intravenous 500 mg IV DAILY 42 days #42 ea 09/02/21 solution vancomycin 125 mg capsule 125 mg PO QID 7 days #28 caps 09/02/21 Allergies Allergy/AdvReac Type Severity Reaction Status Date / Time No Known Allergies Allergy Verified 07/25/21 11:34 [No Known Allergies*] Review of Systems Review of Systems: Yes Unobtainable due to mental condition PMFSH Past Medical History Medical History C. 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 Mother No problems noted. Social History Social History Household Members: None Household Members Other:: resides at [facility] MICHAEL Rivers ([phone]) Housing: Long-Term Are you a primary emergency care attendant to a significant other at home: No Do you presently have visiting nurse or other home services: No Unable to assess alcohol history related to: Unable to respond Alcohol intake: unknown Patient Tobacco Use Status: Tobacco use Unknown Advance Directives Date on File: 02/14/20 service: No Current occupational status: disabled Physical Exam ED Vital Signs: Vital Signs - 24 hr 09/02/21 13:05 Temperature 97.6 F Pulse Rate 68 Respiratory Rate 16 Blood Pressure 104/68 Pulse Oximetry 98 Oxygen Delivery Method Room Air BMI result Body Mass Index 22.1 Const Other: Appearance: Alert. No acute distress. Eyes: Pupils equal, round and reactive to light. ENT: Pharynx normal. Neck: Normal inspection. Neck supple. No lymph nodes noted. No crepitus CVS: Normal heart rate and rhythm. Pulses normal. Normal S1 and S2 Respiratory: No respiratory distress. Breath sounds normal. No Wheezing. No rales Abdomen: Soft and nontender. No rigidity. No distention. : Patient had a Walker catheter in place, clear urine Skin: Skin warm and dry. Normal skin color. Normal skin turgor. Extremities: No lower extremity edema. No Lacerations. No Rash Neuro: patient unable to participate in cranial nerve assessment Psych: calm Course Course Course Narrative: patient is nonverbal. We went through everybody part asking him if he has pain, patient says he does not have pain. I did a secondary physical exam, patient is only able to answer yes or no, patient says no to every question, patient does not seem to have pain anywhere. I tried to contact patient's primary contact Som Costa and The secondary contact with Roge Bear, neither 1 picked up the phone. Patient's vitals are normal. At this time, there is no need to do any labs or imaging. it is possible that patient may have had pain earlier today, but now patient has no pain in the upper or lower extremities, or the groin area, no abdominal pain or chest pain Discharge Plan Discharge Clinical Impression: Pain Patient Disposition: Home, Self-Care Instructions: Musculoskeletal Pain (ED) Additional Instructions: Please follow-up with your primary care physician tomorrow. If you have any worsening or new symptoms, please return to the emergency room or call 911 Prescriptions: No Action (DME) wet wipes See Rx Instructions .ROUTE .MEDSUPPLY Qty: 5 3RF Rx Instructions: As directed (DME) miscellaneous medical supply Misc See Rx Instructions .ROUTE .MEDSUPPLY Qty: 1 0RF Rx Instructions: Full Electric Hospital Bed. DX: G81.91, I63.9, R13.10, I67.89; Daily, Duration: 999days/Lifetime. (DME) miscellaneous medical supply Misc See Rx Instructions .ROUTE .MEDSUPPLY Qty: 1 0RF Rx Instructions: Gait Belt, Dx: G81.91, I67.89. As Directed, Duration: 999 Days/Lifetime (DME) miscellaneous medical supply Misc See Rx Instructions .ROUTE .MEDSUPPLY Qty: 1 0RF Rx Instructions: Rosita Lift, DX: G81.91, I67.89. As directed, Duration: 999 days/Lifetime. (DME) miscellaneous medical supply Misc See Rx Instructions .ROUTE .MEDSUPPLY Qty: 1 0RF Rx Instructions: Tilt in Space Wheelchair, DX: G81.91, I67.89, R13.10, Z99.3. As directed, Duration: 999 days/Lifetime. levetiracetam 100 mg/mL solution 2.5 ml PO BID naloxone 4 mg/actuation [place],Non-Aerosol 4 mg INTRANASAL ONCE PRN (Reason: Opioid Overdose) lidocaine 5 % adhesive patch,medicated 1 patch topical DAILY Rx Instructions: apply to right upper arm acetaminophen 325 mg Tablet 650 mg PO Q4H PRN (Reason: fever/pain) calcium carbonate-vitamin D3 600 mg-5 mcg (200 unit) Tablet 1 tab PO BID magnesium hydroxide [Milk of Magnesia] 400 mg/5 mL Suspension 30 ml PO DAILY PRN (Reason: Constipation) bisacodyl 10 mg Suppository 10 mg HI DAILY PRN (Reason: Constipation) magnesium citrate [Citrate of Magnesia] Solution 300 ml PO DAILY PRN (Reason: Constipation) potassium chloride 20 mEq tablet,ER particles/crystals 1 tab PO DAILY Dificid 200 mg Tablet 200 mg PO Q12H Qty: 20 0RF cefuroxime axetil 500 mg tablet 500 mg PO BID Qty: 6 0RF losartan 100 mg tablet 100 mg PO DAILY 90 Days Qty: 90 4RF gabapentin 300 mg capsule 300 mg PO BEDTIME 30 Days Qty: 30 0RF (DME) miscellaneous medical supply Misc See Rx Instructions .ROUTE .MEDSUPPLY Qty: 1 0RF Rx Instructions: RUE resting hand Splint/Sling As directed, Dx: G81.91, I67.89, duration 999 days/life time tamsulosin 0.4 mg capsule 0.4 mg PO BEDTIME 90 Days Qty: 90 1RF amlodipine 5 mg tablet 5 mg PO DAILY daptomycin 500 mg recon soln 500 mg IV DAILY 42 Days Qty: 42 0RF Rx Instructions: administer over 30 mins vancomycin 125 mg capsule 125 mg PO QID 7 Days Qty: 28 0RF
[2021-09-02 13:05] VITALS: BP 104/68; PULSE 68; RESP 16; TEMP 36.4; O2SAT 98
[2021-09-02 15:12] VITALS: BP 98/67; PULSE 69; RESP 15; TEMP 36.9; O2SAT 100
--- NOTE | 2021-09-02 15:54 | PC.NURSE ---
pt is going back to [facility] at 1730 per action
== END 2021-09-02 17:41 | disposition home or self-care (01) ==
PROVIDERS: Emergency Provider Emergency Medicine; PCP Internal Medicine
DX: M54.2 Cervicalgia (principal); R51.9 Headache, unspecified; M79.604 Pain in right leg; Z79.899 Other long term (current) drug therapy
CPT/HCPCS: 99212; 99282; 99284

== ENCOUNTER → 2021-11-05 13:56 | Outpatient (BNVA) | payer OTHER, MEDICAID, SELFPAY | PROVIDERS: PCP Internal Medicine; Visit Provider Internal Medicine | DX: M86.9 Osteomyelitis, unspecified (principal) | CPT/HCPCS: 99212 ==

== ENCOUNTER 2022-01-17 09:21 | Emergency (ER) | payer OTHER, SELFPAY ==
--- NOTE | ~2022-01-17 | CT_ITS ---
EXAMINATION: CT ABDOMEN AND PELVIS WITHOUT CONTRAST CLINICAL INFORMATION: Abdominal pain and hematuria. COMPARISON: CT abdomen and pelvis 06/25/2021. TECHNIQUE: Multidetector volumetric imaging was performed from the superior aspect of the liver through the pubic symphysis. Sagittal and coronal reformatted images were obtained on the technologist's workstation. This CT examination was performed using dose optimization techniques as appropriate, variously including the following: *Automated exposure control *Adjustment of mA and/or kV according to patient size (this includes techniques or standardized protocols for targeted exams where dose is matched to indication/reason for exam; i.e. extremities or head) *Use of iterative reconstruction technique DLP: 715 mGy-cm FINDINGS: LUNG BASES: Minimal dependent atelectasis seen in both lung bases. The heart size is normal. LIVER, GALLBLADDER, AND BILIARY TREE: The liver is normal in size, shape, and attenuation. No focal hepatic lesion or biliary ductal dilatation is present. The gallbladder is not visualized. PANCREAS: Unremarkable SPLEEN: Unremarkable ADRENAL GLANDS: Unremarkable KIDNEYS AND URETERS: The kidneys are normal in size, shape, and attenuation. There are bilateral nonobstructive radiopaque calculi. The largest in the lower pole measures 1 cm on axial image 40/3 and 4 mm in the lower pole left kidney. No caliectasis or hydronephrosis seen. BLADDER: There is a suprapubic catheter with the undistended bladder. There is mild bladder wall thickening. GASTROINTESTINAL TRACT: Scattered moderate stool and gas is seen throughout the colon without distention. There is significant redundant and distended sigmoid colon with gas extending into the upper abdomen. The small bowel loops are normal caliber. The appendix is not visualized. No free air or free fluid seen. There is no rectal wall thickening at this time. ABDOMINAL WALL: No significant hernia is appreciated. LYMPH NODES: Normal VASCULAR: Unremarkable PELVIC VISCERA: Unremarkable OSSEOUS STRUCTURES: No aggressive lytic or sclerotic process seen. There is mild ventral spondylosis ventral dorsal and lumbar spine. No aggressive lytic or sclerotic process seen. CT/CT abdomen pelvis wo IV con IMPRESSION: Nonobstructive radiopaque renal calculi without hydronephrosis. Wiyysdaj-bf-agqgwtslcef constipation with redundant and significantly distended sigmoid colon with gas. No obvious narrowing seen in the rectosigmoid region. Suprapubic catheter in a nondistended bladder with mild bladder wall thickening. Fleischner guidelines were followed.
[2022-01-17 09:36] VITALS: BP 120/70; BP 136/76; PULSE 64; RESP 16; TEMP 36.7; O2SAT 98; O2SAT 99; BMI 22.6
--- NOTE | 2022-01-17 09:41 | ED.MALEGU ---
HPI - Male Genitourinary General Chief complaint: Urogenital-Male Stated complaint: ABD PAIN,LOW URINE OUTPUT Time Seen by Provider: 01/17/22 09:41 Source: EMS Mode of arrival: EMS Limitations: physical limitation (patient is non-verbal at baseline) History of Present Illness HPI Narrative: Patient is a 66 year old assigned male at with a history of HTN, suprapubic catheter UTI, c.diff, CVA, and stage II pressure ulcer on the sacrum, presenting to the emergency department today with blood in his urine. Patient comes from [facility] and is non-verbal at baseline. Severity: mild Severity scale (1-10): 3 Related Data Home Medications Medication Instructions Recorded Confirmed amlodipine 5 mg tablet 5 mg PO DAILY 06/20/20 06/23/21 acetaminophen 325 mg tablet 650 mg PO Q4H PRN fever/pain 02/16/21 06/23/21 bisacodyl 10 mg rectal suppository 10 mg OR DAILY PRN Constipation 02/16/21 06/23/21 calcium carbonate 600 mg-vitamin 1 tab PO BID 02/16/21 06/23/21 D3 5 mcg (200 unit) tablet lidocaine 5 % topical patch 1 patch topical DAILY 02/16/21 06/23/21 magnesium citrate (Citrate of 300 ml PO DAILY PRN Constipation 02/16/21 06/23/21 Magnesia oral) magnesium hydroxide 400 mg/5 mL 30 ml PO DAILY PRN Constipation 02/16/21 06/23/21 oral suspension (Milk of Magnesia) levetiracetam 100 mg/mL oral 2.5 ml PO BID 02/26/21 06/23/21 solution naloxone 4 mg/actuation nasal spray 4 mg intranasal ONCE PRN Opioid 02/26/21 06/23/21 Overdose potassium chloride 20 mEq 1 tab PO DAILY 06/23/21 06/23/21 tablet,extended release(part/cryst) Previous Rx's Medication Instructions Recorded losartan 100 mg tablet 100 mg PO DAILY 90 days #90 tabs 02/07/20 wet wipes #5 multiple units 03/12/20 tamsulosin 0.4 mg capsule 0.4 mg PO BEDTIME 90 days #90 caps 03/22/20 miscellaneous medical supply #1 ea 03/26/20 miscellaneous medical supply #1 ea 03/26/20 miscellaneous medical supply #1 ea 03/26/20 miscellaneous medical supply #1 ea 03/26/20 gabapentin 300 mg capsule 300 mg PO BEDTIME 30 days #30 caps 03/27/20 miscellaneous medical supply #1 ea 03/27/20 cefuroxime axetil 500 mg tablet 500 mg PO BID #6 tabs 07/04/21 daptomycin 500 mg intravenous 500 mg IV DAILY 42 days #42 ea 09/02/21 solution vancomycin 125 mg capsule 125 mg PO QID 7 days #28 caps 09/02/21 cephalexin 500 mg capsule 500 mg PO Q6H 7 days #28 [facility] 01/17/22 Allergies Allergy/AdvReac Type Severity Reaction Status Date / Time No Known Allergies Allergy Verified 11/05/21 14:02 [No Known Allergies*] Review of Systems Review of Systems: Yes Other (patient is non-verbal at baseline) Constitutional: Constitutional: Denies fever(s) Eyes: Eyes: Denies eye discharge ENT: Denies neck mass Cardiovascular: Cardiovascular: Denies dyspnea Respiratory: Respiratory: Denies cough and Denies dyspnea Gastrointestinal: Gastrointestinal: Denies change in stool character Musculoskeletal: Musculoskeletal: Denies deformity PMFSH Past Medical History Attestation statement: The following information was validated with the patient. Source: old records reviewed Medical History C. 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 Mother No problems noted. Social History Social History Household Members: None Household Members Other:: [facility] [phone]) Housing: Shelter Are you a primary pharmacy customer care specialist to a significant other at home: No Do you presently have visiting nurse or other home services: No Unable to assess alcohol history related to: Unable to respond Alcohol intake: unknown Patient Tobacco Use Status: Tobacco use Unknown Use of substances other than those prescribed or required for medical reasons: Unknown Advance Directives: Yes Advance Directives on File: Yes Advance Directives Date on File: 07/25/21 service: No Current occupational status: disabled Physical Exam Vital Signs: Vital Signs: Last Vital Signs Temp 98.0 F 01/17/22 09:36 Pulse 64 01/17/22 09:36 Resp 16 01/17/22 09:36 BP 120/70 01/17/22 09:36 Pulse Ox 98 01/17/22 09:36 O2 Del Method 01/17/22 09:36 BMI result Body Mass Index 22.6 Const: General: no acute distress, alert and awake Nutritional Appearance: well nourished Orientation/consciousness: Other orientation findings (cannot answer secondary to being non-verbal at baseline) Limitations: no limitations HEENT: Head: Yes normal to inspection and Yes atraumatic Ears: hearing grossly normal bilaterally and external ears normal General nose exam: Normal external nose present, no nasal discharge noted and no epistaxis Face and sinus: Yes normal facial exam, No abrasion and No laceration Mouth: Normal oral and palatal mucosa present, no drooling and no muffled voice Eyes: General: appearance normal, both eyes and all related structures Periorbital: periorbital findings normal Eyelids: Yes eyelids normal Conjunctivae: conjunctivae normal Pupils: Equal, round and reactive pupils present EOM: EOMs intact bilaterally Neck: Neck: Yes normal visual inspection, Yes full ROM and Yes no lymphadenopathy Chest: Chest palpation & inspection: normal inspection of the chest Resp: Effort & Inspection: normal respiratory effort and able to speak in complete sentences Auscultation: clear to auscultation bilaterally GI: Palpation (GI): Soft to palpation, not firm, nontender and no guarding : Other: suprapubic catheter in place Skin: Other: Stage II pressure ulcer to coccyx, no surrounding erythema or warmth / no signs of infection Neuro: General: moves all extremities Cranial nerves: Yes Equal, round and reactive pupils present Cognition (Neuro): normal cognition Motor exam (neuro): 5/5 motor strength present throughout Sensory Exam: Normal double simultaneous stimulation for sensation Coordination: [id number] test normal Extrem: General: Yes normal to inspection, Yes full ROM and Yes capillary refill normal Psych: Appearance: grossly normal Mental Status: mental status grossly normal Affect: normal affect Attitude: cooperative Thought process: Normal thought process present Thought content: Normal thought content present Insight: Good insight present (Psych) MDM - Male Genitourinary MDM Narrative Medical decision making narrative: Patient is a 66 year old assigned male at with a history of HTN, suprapubic catheter UTI, c.diff, CVA, and stage II pressure ulcer on the sacrum presenting to the emergency department today with blood in his urine. Patient's physical exam showed a stage II sacral pressure ulcer but was otherwise unremarkable. Patient's blood work was unremarkable. Patient's urine showed evidence of an infection. Due to cephalexin being effective against his previous urinary infection, will perscribe patient cephalexin again. Patient's CT showed constipation. I explained my physical exam findings as well as all test results to the patient. I stressed the importance of the patient taking his medication as prescribed. I stressed the importance of the patient following up with his primary care provider. I stressed the importance of the patient returning to the emergency department immediately if his symptoms were to worsen or if he were to develop any dizziness, shortness of breath, difficulty breathing, chest pain, blurry vision, loss of vision, nausea, vomiting, abdominal pain, fever, chills, back pain, or any other complaints. Patient nodded in agreement and understanding with this treatment plan and discharge. Differential Diagnosis Differential diagnosis: Likely urinary tract infection Medical Records Attestation: I reviewed the patient's medical records. Lab Data Attestation: I reviewed the patient's lab results. Result diagrams: 01/17/22 10:53 01/17/22 10:53 Labs: Lab Results 01/17/22 01/17/22 01/17/22 Range/Units 10:11 10:53 10:53 WBC 3.8 L (4.8-10.8) X10*3/uL RBC 3.59 L D (4.60-5.80) X10*6/uL Hgb 11.5 L D (14.0-18.0) g/dl Hct 33.7 L D (42.0-52.0) % MCV 93.9 (80.0-98.0) fL MCH 32.0 (27.0-33.0) pg MCHC 34.1 (31.0-36.0) g/dl RDW 13.8 (11.0-16.0) % Plt Count 175 (160-400) X10*3/uL MPV 8.7 L (9.4-12.4) fL Immature Gran % (Auto) 0.0 (0.0-0.4) % Neut % (Auto) 50.3 (45-73) % Lymph % (Auto) 37.7 (20-40) % [place] % (Auto) 8.6 (2-11) % Eos % (Auto) 2.9 (0-4) % Baso % (Auto) 0.5 (0-2) % Lymph # (Auto) 1.4 (1.2-4.9) X10*3/uL [place] # (Auto) 0.3 (0.1-1.2) X10*3/uL Eos # (Auto) 0.1 (0.0-0.4) X10*3/uL Baso # (Auto) 0.0 (0.0-0.2) X10*3/uL Abs Immat Gran (auto) 0.00 (0.00-0.03) X10*3/uL Absolute Neuts (auto) 1.9 L (2.0-8.3) x10*3/uL Absolute Nucleated RBC 0.000 (0.0-0.012) X10*3/uL Nucleated RBC % (auto) 0.0 (0.0-0.2) /100WBC Sodium 140 (135-145) mmol/L Potassium 3.4 (3.3-5.1) mmol/L Chloride 106 (96-108) mmol/L Carbon Dioxide 28 (22-29) mmol/L Anion Gap 9 L (12-20) BUN 20 H (9-16) mg/dL Creatinine 0.83 (0.5-1.4) mg/dL Estim Creat Clear Calc 82.6 Estimated GFR > 60 Random Glucose 119 H (60-115) mg/dL Calcium 9.1 (8.4-10.2) mg/dL Magnesium 2.1 (1.6-2.6) mg/dL Total Bilirubin 0.5 (0.0-1.0) mg/dL AST 17 (5-37) U/L ALT 21 (0-40) U/L Alkaline Phosphatase 100 (39-117) U/L Total Protein 6.5 (6.5-8.0) g/dL Albumin 3.0 L (3.5-5.0) g/dL Lipase 25 (8-78) U/L Urine Color Urine Appearance Urine pH (5.0-9.0) Ur Specific [place] (1.005-1.025) Urine Protein (Neg-Trace) mg/dL Urine Glucose (UA) (Negative) mg/dL Urine Ketones (Negative) mg/dL Urine Blood (Negative) Urine Nitrite (Negative) Ur Leukocyte Esterase (Negative) Urine RBC (0-2) /HPF Urine WBC (0-5) /HPF Ur Squamous Epith Cells (0-2) /HPF Other Crystals Urine Bacteria (None Seen) Hyaline Casts (0-2) /LPF C. difficile Tox B Gene NEGATIVE (Negative) Influenza Type A (PCR) (Negative) Influenza Type B (PCR) (Negative) RSV RNA Qual (PCR) (Negative) SARS-CoV-2 RNA (RT-PCR) (Negative) 01/17/22 01/17/22 Range/Units 10:53 12:47 WBC (4.8-10.8) X10*3/uL RBC (4.60-5.80) X10*6/uL Hgb (14.0-18.0) g/dl Hct (42.0-52.0) % MCV (80.0-98.0) fL MCH (27.0-33.0) pg MCHC (31.0-36.0) g/dl RDW (11.0-16.0) % Plt Count (160-400) X10*3/uL MPV (9.4-12.4) fL Immature Gran % (Auto) (0.0-0.4) % Neut % (Auto) (45-73) % Lymph % (Auto) (20-40) % Maverick % (Auto) (2-11) % Eos % (Auto) (0-4) % Baso % (Auto) (0-2) % Lymph # (Auto) (1.2-4.9) X10*3/uL [place] # (Auto) (0.1-1.2) X10*3/uL Eos # (Auto) (0.0-0.4) X10*3/uL Baso # (Auto) (0.0-0.2) X10*3/uL Abs Immat Gran (auto) (0.00-0.03) X10*3/uL Absolute Neuts (auto) (2.0-8.3) x10*3/uL Absolute Nucleated RBC (0.0-0.012) X10*3/uL Nucleated RBC % (auto) (0.0-0.2) /100WBC Sodium (135-145) mmol/L Potassium (3.3-5.1) mmol/L Chloride (96-108) mmol/L Carbon Dioxide (22-29) mmol/L Anion Gap (12-20) BUN (9-16) mg/dL Creatinine (0.5-1.4) mg/dL Estim Creat Clear Calc Estimated GFR Random Glucose (60-115) mg/dL Calcium (8.4-10.2) mg/dL Magnesium (1.6-2.6) mg/dL Total Bilirubin (0.0-1.0) mg/dL AST (5-37) U/L ALT (0-40) U/L Alkaline Phosphatase (39-117) U/L Total Protein (6.5-8.0) g/dL Albumin (3.5-5.0) g/dL Lipase (8-78) U/L Urine Color Other A Urine Appearance Cloudy Urine pH >= 9.0 (5.0-9.0) Ur Specific [place] 1.010 (1.005-1.025) Urine Protein 100 (2+) H (Neg-Trace) mg/dL Urine Glucose (UA) Negative (Negative) mg/dL Urine Ketones Negative (Negative) mg/dL Urine Blood Large (3+) H (Negative) Urine Nitrite Positive H (Negative) Ur Leukocyte Esterase Large (3+) H (Negative) Urine RBC >20 H (0-2) /HPF Urine WBC 21-50 (0-5) /HPF Ur Squamous Epith Cells 3-5 (0-2) /HPF Other Crystals Present Urine Bacteria 4+ (None Seen) Hyaline Casts 0-2 (0-2) /LPF C. difficile Tox B Gene (Negative) Influenza Type A (PCR) NEGATIVE (Negative) Influenza Type B (PCR) NEGATIVE (Negative) RSV RNA Qual (PCR) NEGATIVE (Negative) SARS-CoV-2 RNA (RT-PCR) NEGATIVE (Negative) Imaging Data CT scan - abdomen: Attestation: I personally reviewed and interpreted this imaging study as follows: My impression: Constipation. Radiologist's impression: EXAMINATION: CT ABDOMEN AND PELVIS WITHOUT CONTRAST? CLINICAL INFORMATION: Abdominal pain and hematuria.? COMPARISON: CT abdomen and pelvis 06/25/2021. TECHNIQUE: Multidetector volumetric imaging was performed from the superior aspect of the liver through the pubic symphysis. Sagittal and coronal reformatted images were obtained on the technologist's workstation.? This CT examination was performed using dose optimization techniques as appropriate, variously including the following: *Automated exposure control *Adjustment of mA and/or kV according to patient size (this includes techniques or standardized protocols for targeted exams where dose is matched to indication/reason for exam; i.e. extremities or head) *Use of iterative reconstruction technique DLP: 715 mGy-cm FINDINGS: LUNG BASES: Minimal dependent atelectasis seen in both lung bases. The heart size is normal.? LIVER, GALLBLADDER, AND BILIARY TREE: The liver is normal in size, shape, and attenuation. No focal hepatic lesion or biliary ductal dilatation is present. The gallbladder is not visualized.? PANCREAS: Unremarkable? SPLEEN: Unremarkable? ADRENAL GLANDS: Unremarkable? KIDNEYS AND URETERS: The kidneys are normal in size, shape, and attenuation. There are bilateral nonobstructive radiopaque calculi. The largest in the lower pole measures 1 cm on axial image 40/3 and 4 mm in the lower pole left kidney. No caliectasis or hydronephrosis seen.? BLADDER: There is a suprapubic catheter with the undistended bladder. There is mild bladder wall thickening. GASTROINTESTINAL TRACT: Scattered moderate stool and gas is seen throughout the colon without distention. There is significant redundant and distended sigmoid colon with gas extending into the upper abdomen. The small bowel loops are normal caliber. The appendix is not visualized. No free air or free fluid seen. There is no rectal wall thickening at this time. ABDOMINAL WALL: No significant hernia is appreciated.? LYMPH NODES: Normal VASCULAR: Unremarkable PELVIC VISCERA: Unremarkable? OSSEOUS STRUCTURES: No aggressive lytic or sclerotic process seen. There is mild ventral spondylosis ventral dorsal and lumbar spine. No aggressive lytic or sclerotic process seen.? CT/CT abdomen pelvis wo IV con IMPRESSION: Nonobstructive radiopaque renal calculi without hydronephrosis. ? [id number] constipation with redundant and significantly distended sigmoid colon with gas. No obvious narrowing seen in the rectosigmoid region. ? Suprapubic catheter in a nondistended bladder with mild bladder wall thickening. ? Fleischner guidelines were followed. Dictated By: Deon Barragan MD Signed By: Electronically signed by Deon Barragan MD 01/17/22 [id number] Discharge Plan Discharge Clinical Impression: UTI (urinary tract infection), Constipation Patient Disposition: Home, Self-Care Instructions: Constipation (ED), Urinary Tract Infection in Men (ED) Additional Instructions: Follow up with your primary care provider. Return to the emergency department immediately if your symptoms worsen or if you develop any dizziness, shortness of breath, difficulty breathing, chest pain, blurry vision, loss of vision, nausea, vomiting, abdominal pain, fever, chills, back pain, or any other complaints. Prescriptions: New cephalexin 500 mg capsule 500 mg PO Q6H 7 Days Qty: 28 0RF No Action (DME) wet wipes See Rx Instructions .ROUTE .MEDSUPPLY Qty: 5 3RF Rx Instructions: As directed (DME) miscellaneous medical supply Misc See Rx Instructions .ROUTE .MEDSUPPLY Qty: 1 0RF Rx Instructions: Full Electric Hospital Bed. DX: G81.91, I63.9, R13.10, I67.89; Daily, Duration: 999days/Lifetime. (DME) miscellaneous medical supply Misc See Rx Instructions .ROUTE .MEDSUPPLY Qty: 1 0RF Rx Instructions: Gait Belt, Dx: G81.91, I67.89. As Directed, Duration: 999 Days/Lifetime (DME) miscellaneous medical supply Misc See Rx Instructions .ROUTE .MEDSUPPLY Qty: 1 0RF Rx Instructions: Rosita Lift, DX: G81.91, I67.89. As directed, Duration: 999 days/Lifetime. (DME) miscellaneous medical supply Misc See Rx Instructions .ROUTE .MEDSUPPLY Qty: 1 0RF Rx Instructions: Tilt in Space Wheelchair, DX: G81.91, I67.89, R13.10, Z99.3. As directed, Duration: 999 days/Lifetime. levetiracetam 100 mg/mL solution 2.5 ml PO BID naloxone 4 mg/actuation [place],Non-Aerosol 4 mg INTRANASAL ONCE PRN (Reason: Opioid Overdose) lidocaine 5 % adhesive patch,medicated 1 patch topical DAILY Rx Instructions: apply to right upper arm acetaminophen 325 mg Tablet 650 mg PO Q4H PRN (Reason: fever/pain) calcium carbonate-vitamin D3 600 mg-5 mcg (200 unit) Tablet 1 tab PO BID magnesium hydroxide [Milk of Magnesia] 400 mg/5 mL Suspension 30 ml PO DAILY PRN (Reason: Constipation) bisacodyl 10 mg Suppository 10 mg OR DAILY PRN (Reason: Constipation) magnesium citrate [Citrate of Magnesia] Solution 300 ml PO DAILY PRN (Reason: Constipation) potassium chloride 20 mEq tablet,ER particles/crystals 1 tab PO DAILY cefuroxime axetil 500 mg tablet 500 mg PO BID Qty: 6 0RF losartan 100 mg tablet 100 mg PO DAILY 90 Days Qty: 90 4RF gabapentin 300 mg capsule 300 mg PO BEDTIME 30 Days Qty: 30 0RF (DME) miscellaneous medical supply Misc See Rx Instructions .ROUTE .MEDSUPPLY Qty: 1 0RF Rx Instructions: RUE resting hand Splint/Sling As directed, Dx: G81.91, I67.89, duration 999 days/life time tamsulosin 0.4 mg capsule 0.4 mg PO BEDTIME 90 Days Qty: 90 1RF amlodipine 5 mg tablet 5 mg PO DAILY daptomycin 500 mg recon soln 500 mg IV DAILY 42 Days Qty: 42 0RF Rx Instructions: administer over 30 mins vancomycin 125 mg capsule 125 mg PO QID 7 Days Qty: 28 0RF Print Language: Nepali
--- NOTE | 2022-01-17 10:31 | PC.NURSE ---
Incontinent of stool x3 and urine x1, stool sample sent and obtained for ?C. Diff. Suprapubic catheter in place draining pink tinged urine. Sacral wound noted, followed at SNF.
[2022-01-17 10:58] LABS: MANUAL DIFF FLAG NO
[2022-01-17 10:59] LABS: Basophils Percent Auto 0.5 % (0-2); Eosinophils Absolute Auto 0.1 X10*3/uL (0.0-0.4); Eosinophils Percent Auto 2.9 % (0-4); Hematocrit 33.7 % (42.0-52.0); Hemoglobin 11.5 g/dl (14.0-18.0); Lymphocytes Absolute Auto 1.4 X10*3/uL (1.2-4.9); Lymphocytes Percent Auto 37.7 % (20-40); Mean Corpuscular HGB Conc 34.1 g/dl (31.0-36.0); Mean Corpuscular Volume 93.9 fL (80.0-98.0); Mean Platelet Volume 8.7 fL (9.4-12.4); Monocytes Absolute Auto 0.3 X10*3/uL (0.1-1.2); Monocytes Percent Auto 8.6 % (2-11); Neutrophils Absolute Auto 1.9 x10*3/uL (2.0-8.3); Neutrophils Percent Auto 50.3 % (45-73); Platelet Count 175 X10*3/uL (160-400); Red Blood Count 3.59 X10*6/uL (4.60-5.80); Red Cell Distribution Width 13.8 % (11.0-16.0); White Blood Count 3.8 X10*3/uL (4.8-10.8)
[2022-01-17 11:27] LABS: Alanine Aminotransferase 21 U/L (0-40); Alkaline Phosphatase 100 U/L (39-117); Anion Gap 9 (12-20); Aspartate Amino Transferase 17 U/L (5-37); Bilirubin Total 0.5 mg/dL (0.0-1.0); Blood Urea Nitrogen 20 mg/dL (9-16); Calcium 9.1 mg/dL (8.4-10.2); Carbon Dioxide 28 mmol/L (22-29); Chloride 106 mmol/L (96-108); Creatinine Clr Calc Pharmacy 82.6; Estimated Glomerular Filt Rate > 60; Glucose Random 119 mg/dL (60-115); Lipase 25 U/L (8-78); Magnesium 2.1 mg/dL (1.6-2.6); Potassium 3.4 mmol/L (3.3-5.1); Sodium 140 mmol/L (135-145); Total Protein 6.5 g/dL (6.5-8.0)
--- NOTE | 2022-01-17 11:40 | PC.NURSE ---
CT scan at this time
[2022-01-17 11:41] LABS: CDiff Gene PCR NEGATIVE (Negative)
[2022-01-17 11:43] LABS: Influenza A PCR NEGATIVE (Negative); Influenza B PCR NEGATIVE (Negative); Resp Syncy Virus RNA Qual PCR NEGATIVE (Negative); SARS COV2 PCR INHOUSE NEGATIVE (Negative)
[2022-01-17 13:24] LABS: Color Urine Other; Glucose Urine UA Negative (Negative); Leukocyte Esterase Urine Large (3+) (Negative); Nitrite Urine Positive (Negative); PH >= 9.0 (5.0-9.0); UMIC TRIGGER UACC YES; Urine Blood Large (3+) (Negative); Urine Ketones Negative (Negative); Urine Protein 100 (2+) mg/dL (Neg-Trace)
[2022-01-17 13:26] LABS: Appearance Urine Cloudy
[2022-01-17 13:31] LABS: RBC Urine >20 /HPF (0-2); UACC Culture Trigger YES; WBC Urine 21-50 /HPF (0-5)
[2022-01-17 13:32] LABS: Bacteria Urine 4+ (None Seen); Hyaline Casts Urine 0-2 /LPF (0-2); Other Crystals Urine Present
--- NOTE | 2022-01-17 15:42 | PC.NURSE ---
Pt awaiting transportation back to SNF
--- NOTE | 2022-01-17 17:26 | PC.NURSE ---
spoke with [facility] they said at the moment they only have two trucks and may not be able to get transport till 8 am they stated they are going to talk to their traffic maintenance supervisor about passing off the call
--- NOTE | 2022-01-17 18:19 | PC.NURSE ---
Dinner tray ordered
[2022-01-17 19:01] VITALS: BP 115/64; PULSE 69; RESP 16; TEMP 36.8; O2SAT 98
--- NOTE | 2022-01-17 21:46 | PC.NURSE ---
[facility] called at 2147 for a update on transport, they were unable to pass due to truck availability,they will be here in the am. Rn and Malariologist aware.
[2022-01-18 03:16] VITALS: BP 134/95; PULSE 76; RESP 16; TEMP 38.6; O2SAT 100
--- NOTE | 2022-01-18 04:18 | PC.NURSE ---
Pt rotated to his left side, positioned with a pillow behind him and under his heels.
[2022-01-18 05:50] VITALS: RESP 16; TEMP 36.9
--- NOTE | 2022-01-18 07:09 | PC.NURSE ---
Temperature documented at 101.5. Temperature was rechecked rectally and temperature was 98.4.
[2022-01-18 09:19] VITALS: BP 132/73; PULSE 71; RESP 14; TEMP 36.8; O2SAT 99
== END 2022-01-18 09:45 | disposition home or self-care (01) ==
PROVIDERS: Physician Assistant Medical; Emergency Provider Emergency Medicine
DX: N39.0 Urinary tract infection, site not specified (principal); K59.00 Constipation, unspecified; Z20.822 Contact with and (suspected) exposure to COVID-19; I10 Essential (primary) hypertension; E78.5 Hyperlipidemia, unspecified; I69.351 Hemiplegia and hemiparesis following cerebral infarction affecting right dominant side; I48.0 Paroxysmal atrial fibrillation; Z87.440 Personal history of urinary (tract) infections; Z79.899 Other long term (current) drug therapy
CPT/HCPCS: 0241U; 36415; 74176; 80053; 81001; 81003; 83690; 83735; 85025; 87086; 87493; 99284

== ENCOUNTER → 2022-01-27 13:21 | Outpatient (BNVA) | payer OTHER, SELFPAY | PROVIDERS: Visit Provider Urology | DX: N39.0 Urinary tract infection, site not specified (principal); R33.9 Retention of urine, unspecified | CPT/HCPCS: 99212 ==

== ENCOUNTER 2022-02-14 11:37 | Emergency (ER) | payer OTHER, SELFPAY ==
[2022-02-14 11:52] VITALS: BP 128/80; BP 130/72; PULSE 64; PULSE 70; RESP 10; TEMP 36.4; O2SAT 98; BMI 20.1
--- NOTE | 2022-02-14 11:58 | ECG_ITS ---
Test Reason : CHEST PAIN Blood Pressure : / mmHG Vent. Rate : 068 BPM Atrial Rate : 068 BPM P-R Int : 168 ms QRS Dur : 082 ms QT Int : 388 ms P-R-T Axes : 055 032 045 degrees QTc Int : 412 ms Normal sinus rhythm Normal ECG When compared to the previous EKG of No significant changes seen Referred By: Frantz Smith Electronically Signed By:Emmanuel Freitas
--- NOTE | 2022-02-14 11:59 | PC.NURSE ---
pt CORY from [facility]. EMS called as a respiratory distress and was met by staff at the door. staff member reported that pt choked on his breakfast and his O2 was 75% . the staff member who was feeding the pt reported that he never choked. upon EMS arrival, pt sitting up right, no apparent distress. pt appears to be at baseline. non-verbal following a stroke. otherwise, understands faroese. pt with no complaints. SaO2 98% on room air upon arrival to ED room 8. pt lungs dim to auscultation. noted stage 3 pressure injury to coccyx - [place] aware, dressing in place. image tiger connected to provider on case. pt skin PWD other than incontinence of stool. pt presented with finley cath in place.
[2022-02-14 12:40] LABS: MANUAL DIFF FLAG NO
[2022-02-14 12:58] LABS: Lactic Acid 1.7 mmol/L (0.5-2.0)
[2022-02-14 13:08] LABS: B Type Natriuretic Peptide 47 pg/mL (<100)
[2022-02-14 13:09] LABS: Basophils Percent Auto 0.4 % (0-2); Eosinophils Absolute Auto 0.1 X10*3/uL (0.0-0.4); Eosinophils Percent Auto 2.1 % (0-4); Hematocrit 35.1 % (42.0-52.0); Hemoglobin 11.7 g/dl (14.0-18.0); Imm Gran Abs Auto 0.02 X10*3/uL (0.00-0.03); Imm Gran Pct Auto 0.4 % (0.0-0.4); Lymphocytes Absolute Auto 1.8 X10*3/uL (1.2-4.9); Lymphocytes Percent Auto 33.7 % (20-40); Mean Corpuscular HGB Conc 33.3 g/dl (31.0-36.0); Mean Corpuscular Hemoglobin 31.6 pg (27.0-33.0); Mean Corpuscular Volume 94.9 fL (80.0-98.0); Mean Platelet Volume 9.1 fL (9.4-12.4); Monocytes Absolute Auto 0.5 X10*3/uL (0.1-1.2); Monocytes Percent Auto 8.9 % (2-11); Neutrophils Absolute Auto 2.9 x10*3/uL (2.0-8.3); Neutrophils Percent Auto 54.5 % (45-73); Platelet Count 267 X10*3/uL (160-400); Red Cell Distribution Width 13.4 % (11.0-16.0); Troponin-I High Sensitivity 5.1 ng/L (<3.5-35.0); White Blood Count 5.3 X10*3/uL (4.8-10.8)
[2022-02-14 13:11] LABS: Alanine Aminotransferase 24 U/L (0-40); Albumin Level 3.3 g/dL (3.5-5.0); Alkaline Phosphatase 125 U/L (39-117); Anion Gap 10 (12-20); Aspartate Amino Transferase 17 U/L (5-37); Bilirubin Total 0.7 mg/dL (0.0-1.0); Blood Urea Nitrogen 21 mg/dL (9-16); Calcium 9.2 mg/dL (8.4-10.2); Carbon Dioxide 30 mmol/L (22-29); Chloride 106 mmol/L (96-108); Creatinine Clr Calc Pharmacy 80.7; Estimated Glomerular Filt Rate > 60; Glucose Random 97 mg/dL (60-115); Potassium 3.9 mmol/L (3.3-5.1); Sodium 142 mmol/L (135-145); Total Protein 6.9 g/dL (6.5-8.0)
[2022-02-14 13:21] LABS: D Dimer High Sensitivity 182 NG/ML
[2022-02-14 13:28] VITALS: BP 120/79; PULSE 60; RESP 11; O2SAT 96
--- NOTE | 2022-02-14 13:29 | ED.GENADULT ---
HPI - General Adult General Chief complaint: General Medical <YONAS Lane - Last Filed: 02/14/22 19:50> Stated complaint: DIFF BREATHING/COUGH,?ASPIRATION <YONAS Lane - Last Filed: 02/14/22 19:50> Time Seen by Provider: 02/14/22 11:56 <YONAS Lane - Last Filed: 02/14/22 19:50> Source: EMS <YONAS Lane - Last Filed: 02/14/22 19:50> Mode of arrival: EMS <YONAS Lane - Last Filed: 02/14/22 19:50> Limitations: other ( Patient nonverbal) <YONAS Lane Last Filed: 02/14/22 19:50> History of Present Illness HPI narrative: this is a 66-year-old male history of recurrent UTIs currently being treated for 1, pressure ulcer on buttocks, 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 When this happened they called 911 for patient to come into the hospital. When EMS arrived patient was fine, saturating well on room air, appearing comfortable and in no signs of distress. Patient is nonverbal secondary to stroke. Unable to answer a review of systems. <YONAS Lane - Last Filed: 02/14/22 19:50> Related Data Home medications: Home Medications Medication Instructions Recorded Confirmed amlodipine 5 mg tablet 5 mg PO DAILY 06/20/20 02/14/22 acetaminophen 325 mg tablet 650 mg PO Q4H PRN fever/pain 02/16/21 02/14/22 bisacodyl 10 mg rectal suppository 10 mg IA DAILY PRN Constipation 02/16/21 02/14/22 calcium carbonate 600 mg-vitamin 1 tab PO BID 02/16/21 02/14/22 D3 5 mcg (200 unit) tablet lidocaine 5 % topical patch 1 patch topical DAILY 02/16/21 02/14/22 magnesium hydroxide 400 mg/5 mL 30 ml PO DAILY PRN Constipation 02/16/21 02/14/22 oral suspension (Milk of Magnesia) levetiracetam 100 mg/mL oral 2.5 ml PO BID 02/26/21 02/14/22 solution naloxone 4 mg/actuation nasal spray 4 mg intranasal ONCE PRN Opioid 02/26/21 02/14/22 Overdose potassium chloride 20 mEq 1 tab PO DAILY 06/23/21 02/14/22 tablet,extended release(part/cryst) atorvastatin 80 mg tablet 80 mg PO DAILY 01/26/22 02/14/22 rivaroxaban 20 mg tablet (Xarelto) 20 mg PO DAILY 01/26/22 02/14/22 Previous Rx's Medication Instructions Recorded losartan 100 mg tablet 100 mg PO DAILY 90 days #90 tabs 02/07/20 wet wipes #5 multiple units 03/12/20 tamsulosin 0.4 mg capsule 0.4 mg PO BEDTIME 90 days #90 caps 03/22/20 gabapentin 300 mg capsule 300 mg PO BEDTIME 30 days #30 caps 03/27/20 miscellaneous medical supply #1 ea 03/27/20 vancomycin 125 mg capsule 125 mg PO QID 7 days #28 caps 09/02/21 ascorbic acid (vitamin C) 1,000 mg 1,000 mg PO DAILY 90 days #90 tabs 01/27/22 tablet methenamine hippurate 1 gram tablet 1 g PO daily 90 days #90 tabs 01/27/22 <[address]AS [address] - Last Filed: 02/14/22 19:50> Allergies/adverse reactions: Allergies Allergy/AdvReac Type Severity Reaction Status Date / Time No Known Allergies Allergy Verified 11/05/21 14:02 [No Known Allergies*] <YONAS Lane - Last Filed: 02/14/22 19:50> Review of Systems Review of Systems: Yes Unobtainable due to mental status <YONAS Lane - Last Filed: 02/14/22 19:50> [facility] Past Medical History Attestation statement: The following information was validated with the patient. <YONAS Lane - Last Filed: 02/14/22 19:50> Source: old records reviewed and nursing notes reviewed <YONAS Lane Last Filed: 02/14/22 19:50> Medical History: Medical History C. 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 Mother No problems noted. <YONAS Lane - Last Filed: 02/14/22 19:50> Social History Social History: Social History Household Members: None Household Members Other:: [facility] [place] ([phone] Housing: Retirement Are you a primary manager career to a significant other at home: No Do you presently have visiting nurse or other home services: No Unable to assess alcohol history related to: Unable to respond Alcohol intake: unknown Patient Tobacco Use Status: Tobacco use Unknown Advance Directives: Yes Advance Directives on File: Yes Advance Directives Date on File: 07/25/21 service: No Current occupational status: disabled <YONAS Lane - Last Filed: 02/14/22 19:50> Physical Exam ED Vital Signs: Vital Signs - 24 hr 02/14/22 11:52 02/14/22 13:28 02/14/22 15:51 Temperature 97.5 F Pulse Rate 64 60 81 Respiratory Rate 10 L 11 L 12 Blood Pressure 130/72 120/79 137/79 Pulse Oximetry 98 96 86 L Oxygen Delivery Method Room Air Room Air Nasal Cannula Oxygen Flow Rate 4 02/14/22 17:33 02/14/22 18:24 Temperature Pulse Rate 70 72 Respiratory Rate 15 15 Blood Pressure 106/71 101/53 L Pulse Oximetry 100 97 Oxygen Delivery Method Nasal Cannula Room Air Oxygen Flow Rate 3 BMI result Body Mass Index 20.1 vss <YONAS Lane - Last Filed: 02/14/22 19:50> Vital Signs - 24 hr 02/14/22 11:52 02/14/22 13:28 02/14/22 15:51 Temperature 97.5 F Pulse Rate 64 60 81 Respiratory Rate 10 L 11 L 12 Blood Pressure 130/72 120/79 137/79 Pulse Oximetry 98 96 86 L Oxygen Delivery Method Room Air Room Air Nasal Cannula Oxygen Flow Rate 4 02/14/22 17:33 02/14/22 18:24 Temperature Pulse Rate 70 72 Respiratory Rate 15 15 Blood Pressure 106/71 101/53 L Pulse Oximetry 100 97 Oxygen Delivery Method Nasal Cannula Room Air Oxygen Flow Rate 3 BMI result Body Mass Index 20.1 <Alize Brice MD - Last Filed: 02/14/22 17:32> Vital Signs - 24 hr 02/14/22 11:52 02/14/22 13:28 02/14/22 15:51 Temperature 97.5 F Pulse Rate 64 60 81 Respiratory Rate 10 L 11 L 12 Blood Pressure 130/72 120/79 137/79 Pulse Oximetry 98 96 86 L Oxygen Delivery Method Room Air Room Air Nasal Cannula Oxygen Flow Rate 4 02/14/22 17:33 02/14/22 18:24 Temperature Pulse Rate 70 72 Respiratory Rate 15 15 Blood Pressure 106/71 101/53 L Pulse Oximetry 100 97 Oxygen Delivery Method Nasal Cannula Room Air Oxygen Flow Rate 3 BMI result Body Mass Index 20.1 <Saira Clinton NP - Last Filed: 02/14/22 23:46> Appearance: Alert.? Awake. Moving all extremities..? No acute distress.? Head: Normocephalic, atraumatic, no step-offs or deformities Eyes: Pupils equal, round and reactive to light.? ENT: Pharynx normal.? Neck: Normal inspection.? Neck supple.? CVS: Normal heart rate and rhythm.? Pulses normal.? Respiratory: No respiratory distress.? Breath sounds normal.? Abdomen: Soft and nontender.? Skin: Skin warm and dry.? Normal skin color.? Normal skin turgor.? Extremities: No lower extremity edema.? No calf ttp. global weakness. Neuro: No motor deficit.? No sensory deficit. CN 2-12 intact <YONAS Lane - Last Filed: 02/14/22 19:50> Course Course Course Narrative: 23:45 hospitalist does not feel that this patient requires admission. Please refer to hospitalist's note for complete details. Plan of care is to treat with level floxacillin for suspected aspiration although CT scan is negative, and UTI. Patient will be discharged to his fdc facility. <Saira Clinton NP - Last Filed: 02/14/22 23:46> Reevaluation(s) Reevaluation #1: patient's CBC appears to have a normocytic anemia which is patient's baseline. chemistry with slightly elevated BUN likely secondary to dehydration. Negative lactic. Lactic negative. Troponin negative, EKG nonischemic unlikely ACS. BNP within normal limits. D-dimer negative unlikely PE. CT x-ray of the chest unremarkable. CT of the chest with no acute intrathoracic and intra-abdominal or pelvic etiologies however. Extensive fecal residual within the large bowel associated with prominence of the large bowel from cecum to the distal sigmoid colon. There is apparent transition present in the rectosigmoid junction that could represent an underlying anatomical lesion. I did speak to Radiology and they did tell me that there is no volvulus. <YONAS Lane - Last Filed: 02/14/22 19:50> Time: 15:51 <YONAS Lane - Last Filed: 02/14/22 19:50> Reevaluation #2: I discussed the case with Gastroenterology, Dr. Soriano, who agrees the patient should be further evaluated and will see the patient as an inpatient but does not feel that there is anything acutely to be done. <Alize Brice MD - Last Filed: 02/14/22 17:32> Time: 16:51 <Alize Brice MD - Last Filed: 02/14/22 17:32> Reevaluation #3: I did discuss this case with the hospitalist to admit patient for hypoxia, in GI evaluation. Hospitalist do not feel as though hospital admission is required, Dr. Chaney evaluated patient at bedside. According to facility patient is currently being treated for UTI however it seems to not be going away. He does have an indwelling catheter. A urine sample will be obtained and sent to lab for analysis. <YONAS Lane - Last Filed: 02/14/22 19:50> Time: 18:58 <YONAS Lane - Last Filed: 02/14/22 19:50> Additional Reevaluation(s): UA clearly infected. Will give ceftriaxone. Patient's pressure now soft 101/53 will give fluids. Patient is still requiring 3 L, he does not require oxygen at home. Patient will be admitted to the hospitalist team for UTI, episodes of hypoxia that are unexplained. <YONAS Lane - Last Filed: 02/14/22 19:50> Medications Administered Discontinued Medications Generic Name Dose Route Start Last Admin Trade Name Freq PRN Reason Stop Dose Admin Ceftriaxone Sodium 1 gm/ 50 mls @ 100 mls/hr 02/14/22 19:11 02/14/22 20:09 Sodium Chloride IV 02/14/22 19:40 100 mls/hr ONCE ONE Administration Iohexol 100 ml 02/14/22 14:27 02/14/22 14:28 Iohexol 350 Mg/Ml 100 Ml Infus..Btl IV 02/14/22 14:28 65 ml ONCE ONE Administration <YONAS Lane - Last Filed: 02/14/22 19:50> Medications Administered Discontinued Medications Generic Name Dose Route Start Last Admin Trade Name Freq PRN Reason Stop Dose Admin Ceftriaxone Sodium 1 gm/ 50 mls @ 100 mls/hr 02/14/22 19:11 02/14/22 20:09 Sodium Chloride IV 02/14/22 19:40 100 mls/hr ONCE ONE Administration Iohexol 100 ml 02/14/22 14:27 02/14/22 14:28 Iohexol 350 Mg/Ml 100 Ml Infus..Btl IV 02/14/22 14:28 65 ml ONCE ONE Administration <Alize Brice MD - Last Filed: 02/14/22 17:32> Medications Administered Discontinued Medications Generic Name Dose Route Start Last Admin Trade Name Freq PRN Reason Stop Dose Admin Ceftriaxone Sodium 1 gm/ 50 mls @ 100 mls/hr 02/14/22 19:11 02/14/22 20:09 Sodium Chloride IV 02/14/22 19:40 100 mls/hr ONCE ONE Administration Iohexol 100 ml 02/14/22 14:27 02/14/22 14:28 Iohexol 350 Mg/Ml 100 Ml Infus..Btl IV 02/14/22 14:28 65 ml ONCE ONE Administration <Saira Clinton NP - Last Filed: 02/14/22 23:46> Medical Decision Making Medical Decision Making [facility] Narrative: [id number] 66-year-old male coming from [place] with a choking episode where he was noted to be hypoxic patient now back to baseline. Not requiring oxygen. Stable vitals. Patient nonverbal secondary to CVA. Physical examination benign. However global weakness is noted which is normal for patient's baseline. Will rule out aspiration pneumonia. No signs of respiratory distress at this time. Will rule out viral etiologies. Plan at this time labs, imaging. Will continue to monitor <YONAS Lane - Last Filed: 02/14/22 19:50> Lab Data Result Diagrams: : 02/14/22 12:33 02/14/22 12:33 <YONAS Lane - Last Filed: 02/14/22 19:50> Labs: Lab Results 02/14/22 02/14/22 02/14/22 Range/Units 12:33 12:33 12:33 WBC 5.3 (4.8-10.8) X10*3/uL RBC 3.70 L (4.60-5.80) X10*6/uL Hgb 11.7 L (14.0-18.0) g/dl Hct 35.1 L (42.0-52.0) % MCV 94.9 (80.0-98.0) fL MCH 31.6 (27.0-33.0) pg MCHC 33.3 (31.0-36.0) g/dl RDW 13.4 (11.0-16.0) % Plt Count 267 D (160-400) X10*3/uL MPV 9.1 L (9.4-12.4) fL Immature Gran % (Auto) 0.4 (0.0-0.4) % Neut % (Auto) 54.5 (45-73) % Lymph % (Auto) 33.7 (20-40) % [place] % (Auto) 8.9 (2-11) % Eos % (Auto) 2.1 (0-4) % Baso % (Auto) 0.4 (0-2) % Lymph # (Auto) 1.8 (1.2-4.9) X10*3/uL [place] # (Auto) 0.5 (0.1-1.2) X10*3/uL Eos # (Auto) 0.1 (0.0-0.4) X10*3/uL Baso # (Auto) 0.0 (0.0-0.2) X10*3/uL Abs Immat Gran (auto) 0.02 (0.00-0.03) X10*3/uL Absolute Neuts (auto) 2.9 (2.0-8.3) x10*3/uL Absolute Nucleated RBC 0.000 (0.0-0.012) X10*3/uL Nucleated RBC % (auto) 0.0 (0.0-0.2) /100WBC D-Dimer High Sensitivty 182 NG/ML VBG pH (7.32-7.43) VBG pCO2 mmHg VBG pO2 mmHg VBG HCO3 (22-26) mmol/L VBG O2 Saturation % VBG Base Excess mmol/L Sodium 142 (135-145) mmol/L Potassium 3.9 (3.3-5.1) mmol/L Chloride 106 (96-108) mmol/L Carbon Dioxide 30 H (22-29) mmol/L Anion Gap 10 L (12-20) BUN 21 H (9-16) mg/dL Creatinine 0.80 (0.5-1.4) mg/dL Estim Creat Clear Calc 80.7 Estimated GFR > 60 Random Glucose 97 (60-115) mg/dL Lactic Acid (0.5-2.0) mmol/L Calcium 9.2 (8.4-10.2) mg/dL Magnesium 2.0 (1.6-2.6) mg/dL Total Bilirubin 0.7 (0.0-1.0) mg/dL AST 17 (5-37) U/L ALT 24 (0-40) U/L Alkaline Phosphatase 125 H (39-117) U/L Troponin I High Sens (<3.5-35.0) ng/L B-Natriuretic Peptide (<100) pg/mL Total Protein 6.9 (6.5-8.0) g/dL Albumin 3.3 L (3.5-5.0) g/dL Urine Color Urine Appearance Urine pH (5.0-9.0) Ur Specific [place] (1.005-1.025) Urine Protein (Neg-Trace) mg/dL Urine Glucose (UA) (Negative) mg/dL Urine Ketones (Negative) mg/dL Urine Blood (Negative) Urine Nitrite (Negative) Ur Leukocyte Esterase (Negative) Urine RBC (0-2) /HPF Urine WBC (0-5) /HPF Ur Squamous Epith Cells (0-2) /HPF Urine Bacteria (None Seen) Hyaline Casts (0-2) /LPF Granular Casts COVID-19 (GISELLE) (Negative) COVID-19 Clin Com Influenza Type A (JACINTO) (Negative) Influenza Type B (JACINTO) (Negative) Influenza A & B Note 02/14/22 02/14/22 02/14/22 Range/Units 12:33 12:33 12:33 WBC (4.8-10.8) X10*3/uL RBC (4.60-5.80) X10*6/uL Hgb (14.0-18.0) g/dl Hct (42.0-52.0) % MCV (80.0-98.0) fL MCH (27.0-33.0) pg MCHC (31.0-36.0) g/dl RDW (11.0-16.0) % Plt Count (160-400) X10*3/uL MPV (9.4-12.4) fL Immature Gran % (Auto) (0.0-0.4) % Neut % (Auto) (45-73) % Lymph % (Auto) (20-40) % [place] % (Auto) (2-11) % Eos % (Auto) (0-4) % Baso % (Auto) (0-2) % Lymph # (Auto) (1.2-4.9) X10*3/uL [place] # (Auto) (0.1-1.2) X10*3/uL Eos # (Auto) (0.0-0.4) X10*3/uL Baso # (Auto) (0.0-0.2) X10*3/uL Abs Immat Gran (auto) (0.00-0.03) X10*3/uL Absolute Neuts (auto) (2.0-8.3) x10*3/uL Absolute Nucleated RBC (0.0-0.012) X10*3/uL Nucleated RBC % (auto) (0.0-0.2) /100WBC D-Dimer High Sensitivty NG/ML VBG pH (7.32-7.43) VBG pCO2 mmHg VBG pO2 mmHg VBG HCO3 (22-26) mmol/L VBG O2 Saturation % VBG Base Excess mmol/L Sodium (135-145) mmol/L Potassium (3.3-5.1) mmol/L Chloride (96-108) mmol/L Carbon Dioxide (22-29) mmol/L Anion Gap (12-20) BUN (9-16) mg/dL Creatinine (0.5-1.4) mg/dL Estim Creat Clear Calc Estimated GFR Random Glucose (60-115) mg/dL Lactic Acid 1.7 (0.5-2.0) mmol/L Calcium (8.4-10.2) mg/dL Magnesium (1.6-2.6) mg/dL Total Bilirubin (0.0-1.0) mg/dL AST (5-37) U/L ALT (0-40) U/L Alkaline Phosphatase (39-117) U/L Troponin I High Sens 5.1 (<3.5-35.0) ng/L B-Natriuretic Peptide 47 (<100) pg/mL Total Protein (6.5-8.0) g/dL Albumin (3.5-5.0) g/dL Urine Color Urine Appearance Urine pH (5.0-9.0) Ur Specific [place] (1.005-1.025) Urine Protein (Neg-Trace) mg/dL Urine Glucose (UA) (Negative) mg/dL Urine Ketones (Negative) mg/dL Urine Blood (Negative) Urine Nitrite (Negative) Ur Leukocyte Esterase (Negative) Urine RBC (0-2) /HPF Urine WBC (0-5) /HPF Ur Squamous Epith Cells (0-2) /HPF Urine Bacteria (None Seen) Hyaline Casts (0-2) /LPF Granular Casts COVID-19 (GISELLE) (Negative) COVID-19 Clin Com Influenza Type A (JACINTO) (Negative) Influenza Type B (JACINTO) (Negative) Influenza A & B Note 02/14/22 02/14/22 02/14/22 Range/Units 16:00 16:00 16:27 WBC (4.8-10.8) X10*3/uL RBC (4.60-5.80) X10*6/uL Hgb (14.0-18.0) g/dl Hct (42.0-52.0) % MCV (80.0-98.0) fL MCH (27.0-33.0) pg MCHC (31.0-36.0) g/dl RDW (11.0-16.0) % Plt Count (160-400) X10*3/uL MPV (9.4-12.4) fL Immature Gran % (Auto) (0.0-0.4) % Neut % (Auto) (45-73) % Lymph % (Auto) (20-40) % [place] % (Auto) (2-11) % Eos % (Auto) (0-4) % Baso % (Auto) (0-2) % Lymph # (Auto) (1.2-4.9) X10*3/uL [place] # (Auto) (0.1-1.2) X10*3/uL Eos # (Auto) (0.0-0.4) X10*3/uL Baso # (Auto) (0.0-0.2) X10*3/uL Abs Immat Gran (auto) (0.00-0.03) X10*3/uL Absolute Neuts (auto) (2.0-8.3) x10*3/uL Absolute Nucleated RBC (0.0-0.012) X10*3/uL Nucleated RBC % (auto) (0.0-0.2) /100WBC D-Dimer High Sensitivty NG/ML VBG pH 7.42 (7.32-7.43) VBG pCO2 39 mmHg VBG pO2 51 mmHg VBG HCO3 26 (22-26) mmol/L VBG O2 Saturation 80.0 % VBG Base Excess 1.8 mmol/L Sodium (135-145) mmol/L Potassium (3.3-5.1) mmol/L Chloride (96-108) mmol/L Carbon Dioxide (22-29) mmol/L Anion Gap (12-20) BUN (9-16) mg/dL Creatinine (0.5-1.4) mg/dL Estim Creat Clear Calc Estimated GFR Random Glucose (60-115) mg/dL Lactic Acid (0.5-2.0) mmol/L Calcium (8.4-10.2) mg/dL Magnesium (1.6-2.6) mg/dL Total Bilirubin (0.0-1.0) mg/dL AST (5-37) U/L ALT (0-40) U/L Alkaline Phosphatase (39-117) U/L Troponin I High Sens (<3.5-35.0) ng/L B-Natriuretic Peptide (<100) pg/mL Total Protein (6.5-8.0) g/dL Albumin (3.5-5.0) g/dL Urine Color Urine Appearance Urine pH (5.0-9.0) Ur Specific [place] (1.005-1.025) Urine Protein (Neg-Trace) mg/dL Urine Glucose (UA) (Negative) mg/dL Urine Ketones (Negative) mg/dL Urine Blood (Negative) Urine Nitrite (Negative) Ur Leukocyte Esterase (Negative) Urine RBC (0-2) /HPF Urine WBC (0-5) /HPF Ur Squamous Epith Cells (0-2) /HPF Urine Bacteria (None Seen) Hyaline Casts (0-2) /LPF Granular Casts COVID-19 (GISELLE) Negative (Negative) COVID-19 Clin Com See Note Influenza Type A (JACINTO) Negative (Negative) Influenza Type B (JACINTO) Negative (Negative) Influenza A & B Note See Note 02/14/22 02/14/22 Range/Units 18:48 21:52 WBC (4.8-10.8) X10*3/uL RBC (4.60-5.80) X10*6/uL Hgb (14.0-18.0) g/dl Hct (42.0-52.0) % MCV (80.0-98.0) fL MCH (27.0-33.0) pg MCHC (31.0-36.0) g/dl RDW (11.0-16.0) % Plt Count (160-400) X10*3/uL MPV (9.4-12.4) fL Immature Gran % (Auto) (0.0-0.4) % Neut % (Auto) (45-73) % Lymph % (Auto) (20-40) % [place] % (Auto) (2-11) % Eos % (Auto) (0-4) % Baso % (Auto) (0-2) % Lymph # (Auto) (1.2-4.9) X10*3/uL [place] # (Auto) (0.1-1.2) X10*3/uL Eos # (Auto) (0.0-0.4) X10*3/uL Baso # (Auto) (0.0-0.2) X10*3/uL Abs Immat Gran (auto) (0.00-0.03) X10*3/uL Absolute Neuts (auto) (2.0-8.3) x10*3/uL Absolute Nucleated RBC (0.0-0.012) X10*3/uL Nucleated RBC % (auto) (0.0-0.2) /100WBC D-Dimer High Sensitivty NG/ML VBG pH (7.32-7.43) VBG pCO2 mmHg VBG pO2 mmHg VBG HCO3 (22-26) mmol/L VBG O2 Saturation % VBG Base Excess mmol/L Sodium (135-145) mmol/L Potassium (3.3-5.1) mmol/L Chloride (96-108) mmol/L Carbon Dioxide (22-29) mmol/L Anion Gap (12-20) BUN (9-16) mg/dL Creatinine (0.5-1.4) mg/dL Estim Creat Clear Calc Estimated GFR Random Glucose (60-115) mg/dL Lactic Acid 0.6 (0.5-2.0) mmol/L Calcium (8.4-10.2) mg/dL Magnesium (1.6-2.6) mg/dL Total Bilirubin (0.0-1.0) mg/dL AST (5-37) U/L ALT (0-40) U/L Alkaline Phosphatase (39-117) U/L Troponin I High Sens (<3.5-35.0) ng/L B-Natriuretic Peptide (<100) pg/mL Total Protein (6.5-8.0) g/dL Albumin (3.5-5.0) g/dL Urine Color Yellow Urine Appearance Turbid Urine pH >= 9.0 (5.0-9.0) Ur Specific [place] <= 1.005 (1.005-1.025) Urine Protein 30 (1+) H (Neg-Trace) mg/dL Urine Glucose (UA) Negative (Negative) mg/dL Urine Ketones Negative (Negative) mg/dL Urine Blood Large (3+) H (Negative) Urine Nitrite Positive H (Negative) Ur Leukocyte Esterase Large (3+) H (Negative) Urine RBC >20 H (0-2) /HPF Urine WBC >50 H (0-5) /HPF Ur Squamous Epith Cells 0-2 (0-2) /HPF Urine Bacteria 4+ (None Seen) Hyaline Casts 6-10 (0-2) /LPF Granular Casts Present COVID-19 (GISELLE) (Negative) COVID-19 Clin Com Influenza Type A (JACINTO) (Negative) Influenza Type B (JACINTO) (Negative) Influenza A & B Note <YONAS Lane - Last Filed: 02/14/22 19:50> Lab Results 02/14/22 02/14/22 02/14/22 Range/Units 12:33 12:33 12:33 WBC 5.3 (4.8-10.8) X10*3/uL RBC 3.70 L (4.60-5.80) X10*6/uL Hgb 11.7 L (14.0-18.0) g/dl Hct 35.1 L (42.0-52.0) % MCV 94.9 (80.0-98.0) fL MCH 31.6 (27.0-33.0) pg MCHC 33.3 (31.0-36.0) g/dl RDW 13.4 (11.0-16.0) % Plt Count 267 D (160-400) X10*3/uL MPV 9.1 L (9.4-12.4) fL Immature Gran % (Auto) 0.4 (0.0-0.4) % Neut % (Auto) 54.5 (45-73) % Lymph % (Auto) 33.7 (20-40) % [place] % (Auto) 8.9 (2-11) % Eos % (Auto) 2.1 (0-4) % Baso % (Auto) 0.4 (0-2) % Lymph # (Auto) 1.8 (1.2-4.9) X10*3/uL [place] # (Auto) 0.5 (0.1-1.2) X10*3/uL Eos # (Auto) 0.1 (0.0-0.4) X10*3/uL Baso # (Auto) 0.0 (0.0-0.2) X10*3/uL Abs Immat Gran (auto) 0.02 (0.00-0.03) X10*3/uL Absolute Neuts (auto) 2.9 (2.0-8.3) x10*3/uL Absolute Nucleated RBC 0.000 (0.0-0.012) X10*3/uL Nucleated RBC % (auto) 0.0 (0.0-0.2) /100WBC D-Dimer High Sensitivty 182 NG/ML VBG pH (7.32-7.43) VBG pCO2 mmHg VBG pO2 mmHg VBG HCO3 (22-26) mmol/L VBG O2 Saturation % VBG Base Excess mmol/L Sodium 142 (135-145) mmol/L Potassium 3.9 (3.3-5.1) mmol/L Chloride 106 (96-108) mmol/L Carbon Dioxide 30 H (22-29) mmol/L Anion Gap 10 L (12-20) BUN 21 H (9-16) mg/dL Creatinine 0.80 (0.5-1.4) mg/dL Estim Creat Clear Calc 80.7 Estimated GFR > 60 Random Glucose 97 (60-115) mg/dL Lactic Acid (0.5-2.0) mmol/L Calcium 9.2 (8.4-10.2) mg/dL Magnesium 2.0 (1.6-2.6) mg/dL Total Bilirubin 0.7 (0.0-1.0) mg/dL AST 17 (5-37) U/L ALT 24 (0-40) U/L Alkaline Phosphatase 125 H (39-117) U/L Troponin I High Sens (<3.5-35.0) ng/L B-Natriuretic Peptide (<100) pg/mL Total Protein 6.9 (6.5-8.0) g/dL Albumin 3.3 L (3.5-5.0) g/dL Urine Color Urine Appearance Urine pH (5.0-9.0) Ur Specific [place] (1.005-1.025) Urine Protein (Neg-Trace) mg/dL Urine Glucose (UA) (Negative) mg/dL Urine Ketones (Negative) mg/dL Urine Blood (Negative) Urine Nitrite (Negative) Ur Leukocyte Esterase (Negative) Urine RBC (0-2) /HPF Urine WBC (0-5) /HPF Ur Squamous Epith Cells (0-2) /HPF Urine Bacteria (None Seen) Hyaline Casts (0-2) /LPF Granular Casts COVID-19 ([facility]LE) (Negative) COVID-19 Clin Com Influenza Type A (JACINTO) (Negative) Influenza Type B (JACINTO) (Negative) Influenza A & B Note 02/14/22 02/14/22 02/14/22 Range/Units 12:33 12:33 12:33 WBC (4.8-10.8) X10*3/uL RBC (4.60-5.80) X10*6/uL Hgb (14.0-18.0) g/dl Hct (42.0-52.0) % MCV (80.0-98.0) fL MCH (27.0-33.0) pg MCHC (31.0-36.0) g/dl RDW (11.0-16.0) % Plt Count (160-400) X10*3/uL MPV (9.4-12.4) fL Immature Gran % (Auto) (0.0-0.4) % Neut % (Auto) (45-73) % Lymph % (Auto) (20-40) % [place] % (Auto) (2-11) % Eos % (Auto) (0-4) % Baso % (Auto) (0-2) % Lymph # (Auto) (1.2-4.9) X10*3/uL [place] # (Auto) (0.1-1.2) X10*3/uL Eos # (Auto) (0.0-0.4) X10*3/uL Baso # (Auto) (0.0-0.2) X10*3/uL Abs Immat Gran (auto) (0.00-0.03) X10*3/uL Absolute Neuts (auto) (2.0-8.3) x10*3/uL Absolute Nucleated RBC (0.0-0.012) X10*3/uL Nucleated RBC % (auto) (0.0-0.2) /100WBC D-Dimer High Sensitivty NG/ML VBG pH (7.32-7.43) VBG pCO2 mmHg VBG pO2 mmHg VBG HCO3 (22-26) mmol/L VBG O2 Saturation % VBG Base Excess mmol/L Sodium (135-145) mmol/L Potassium (3.3-5.1) mmol/L Chloride (96-108) mmol/L Carbon Dioxide (22-29) mmol/L Anion Gap (12-20) BUN (9-16) mg/dL Creatinine (0.5-1.4) mg/dL Estim Creat Clear Calc Estimated GFR Random Glucose (60-115) mg/dL Lactic Acid 1.7 (0.5-2.0) mmol/L Calcium (8.4-10.2) mg/dL Magnesium (1.6-2.6) mg/dL Total Bilirubin (0.0-1.0) mg/dL AST (5-37) U/L ALT (0-40) U/L Alkaline Phosphatase (39-117) U/L Troponin I High Sens 5.1 (<3.5-35.0) ng/L B-Natriuretic Peptide 47 (<100) pg/mL Total Protein (6.5-8.0) g/dL Albumin (3.5-5.0) g/dL Urine Color Urine Appearance Urine pH (5.0-9.0) Ur Specific [place] (1.005-1.025) Urine Protein (Neg-Trace) mg/dL Urine Glucose (UA) (Negative) mg/dL Urine Ketones (Negative) mg/dL Urine Blood (Negative) Urine Nitrite (Negative) Ur Leukocyte Esterase (Negative) Urine RBC (0-2) /HPF Urine WBC (0-5) /HPF Ur Squamous Epith Cells (0-2) /HPF Urine Bacteria (None Seen) Hyaline Casts (0-2) /LPF Granular Casts COVID-19 (GISELLE) (Negative) COVID-19 Clin Com Influenza Type A (JACINTO) (Negative) Influenza Type B (JACINTO) (Negative) Influenza A & B Note 02/14/22 02/14/22 02/14/22 Range/Units 16:00 16:00 16:27 WBC (4.8-10.8) X10*3/uL RBC (4.60-5.80) X10*6/uL Hgb (14.0-18.0) g/dl Hct (42.0-52.0) % MCV (80.0-98.0) fL MCH (27.0-33.0) pg MCHC (31.0-36.0) g/dl RDW (11.0-16.0) % Plt Count (160-400) X10*3/uL MPV (9.4-12.4) fL Immature Gran % (Auto) (0.0-0.4) % Neut % (Auto) (45-73) % Lymph % (Auto) (20-40) % [place] % (Auto) (2-11) % Eos % (Auto) (0-4) % Baso % (Auto) (0-2) % Lymph # (Auto) (1.2-4.9) X10*3/uL [place] # (Auto) (0.1-1.2) X10*3/uL Eos # (Auto) (0.0-0.4) X10*3/uL Baso # (Auto) (0.0-0.2) X10*3/uL Abs Immat Gran (auto) (0.00-0.03) X10*3/uL Absolute Neuts (auto) (2.0-8.3) x10*3/uL Absolute Nucleated RBC (0.0-0.012) X10*3/uL Nucleated RBC % (auto) (0.0-0.2) /100WBC D-Dimer High Sensitivty NG/ML VBG pH 7.42 (7.32-7.43) VBG pCO2 39 mmHg VBG pO2 51 mmHg VBG HCO3 26 (22-26) mmol/L VBG O2 Saturation 80.0 % VBG Base Excess 1.8 mmol/L Sodium (135-145) mmol/L Potassium (3.3-5.1) mmol/L Chloride (96-108) mmol/L Carbon Dioxide (22-29) mmol/L Anion Gap (12-20) BUN (9-16) mg/dL Creatinine (0.5-1.4) mg/dL Estim Creat Clear Calc Estimated GFR Random Glucose (60-115) mg/dL Lactic Acid (0.5-2.0) mmol/L Calcium (8.4-10.2) mg/dL Magnesium (1.6-2.6) mg/dL Total Bilirubin (0.0-1.0) mg/dL AST (5-37) U/L ALT (0-40) U/L Alkaline Phosphatase (39-117) U/L Troponin I High Sens (<3.5-35.0) ng/L B-Natriuretic Peptide (<100) pg/mL Total Protein (6.5-8.0) g/dL Albumin (3.5-5.0) g/dL Urine Color Urine Appearance Urine pH (5.0-9.0) Ur Specific [place] (1.005-1.025) Urine Protein (Neg-Trace) mg/dL Urine Glucose (UA) (Negative) mg/dL Urine Ketones (Negative) mg/dL Urine Blood (Negative) Urine Nitrite (Negative) Ur Leukocyte Esterase (Negative) Urine RBC (0-2) /HPF Urine WBC (0-5) /HPF Ur Squamous Epith Cells (0-2) /HPF Urine Bacteria (None Seen) Hyaline Casts (0-2) /LPF Granular Casts COVID-19 (GISELLE) Negative (Negative) COVID-19 Clin Com See Note Influenza Type A (JACINTO) Negative (Negative) Influenza Type B (JACINTO) Negative (Negative) Influenza A & B Note See Note 02/14/22 02/14/22 Range/Units 18:48 21:52 WBC (4.8-10.8) X10*3/uL RBC (4.60-5.80) X10*6/uL Hgb (14.0-18.0) g/dl Hct (42.0-52.0) % MCV (80.0-98.0) fL MCH (27.0-33.0) pg MCHC (31.0-36.0) g/dl RDW (11.0-16.0) % Plt Count (160-400) X10*3/uL MPV (9.4-12.4) fL Immature Gran % (Auto) (0.0-0.4) % Neut % (Auto) (45-73) % Lymph % (Auto) (20-40) % [place] % (Auto) (2-11) % Eos % (Auto) (0-4) % Baso % (Auto) (0-2) % Lymph # (Auto) (1.2-4.9) X10*3/uL [place] # (Auto) (0.1-1.2) X10*3/uL Eos # (Auto) (0.0-0.4) X10*3/uL Baso # (Auto) (0.0-0.2) X10*3/uL Abs Immat Gran (auto) (0.00-0.03) X10*3/uL Absolute Neuts (auto) (2.0-8.3) x10*3/uL Absolute Nucleated RBC (0.0-0.012) X10*3/uL Nucleated RBC % (auto) (0.0-0.2) /100WBC D-Dimer High Sensitivty NG/ML VBG pH (7.32-7.43) VBG pCO2 mmHg VBG pO2 mmHg VBG HCO3 (22-26) mmol/L VBG O2 Saturation % VBG Base Excess mmol/L Sodium (135-145) mmol/L Potassium (3.3-5.1) mmol/L Chloride (96-108) mmol/L Carbon Dioxide (22-29) mmol/L Anion Gap (12-20) BUN (9-16) mg/dL Creatinine (0.5-1.4) mg/dL Estim Creat Clear Calc Estimated GFR Random Glucose (60-115) mg/dL Lactic Acid 0.6 (0.5-2.0) mmol/L Calcium (8.4-10.2) mg/dL Magnesium (1.6-2.6) mg/dL Total Bilirubin (0.0-1.0) mg/dL AST (5-37) U/L ALT (0-40) U/L Alkaline Phosphatase (39-117) U/L Troponin I High Sens (<3.5-35.0) ng/L B-Natriuretic Peptide (<100) pg/mL Total Protein (6.5-8.0) g/dL Albumin (3.5-5.0) g/dL Urine Color Yellow Urine Appearance Turbid Urine pH >= 9.0 (5.0-9.0) Ur Specific [place] <= 1.005 (1.005-1.025) Urine Protein 30 (1+) H (Neg-Trace) mg/dL Urine Glucose (UA) Negative (Negative) mg/dL Urine Ketones Negative (Negative) mg/dL Urine Blood Large (3+) H (Negative) Urine Nitrite Positive H (Negative) Ur Leukocyte Esterase Large (3+) H (Negative) Urine RBC >20 H (0-2) /HPF Urine WBC >50 H (0-5) /HPF Ur Squamous Epith Cells 0-2 (0-2) /HPF Urine Bacteria 4+ (None Seen) Hyaline Casts 6-10 (0-2) /LPF Granular Casts Present COVID-19 (GISELLE) (Negative) COVID-19 Clin Com Influenza Type A (JACINTO) (Negative) Influenza Type B (JACINTO) (Negative) Influenza A & B Note <Alize Brice MD - Last Filed: 02/14/22 17:32> Lab Results 02/14/22 02/14/22 02/14/22 Range/Units 12:33 12:33 12:33 WBC 5.3 (4.8-10.8) X10*3/uL RBC 3.70 L (4.60-5.80) X10*6/uL Hgb 11.7 L (14.0-18.0) g/dl Hct 35.1 L (42.0-52.0) % MCV 94.9 (80.0-98.0) fL MCH 31.6 (27.0-33.0) pg MCHC 33.3 (31.0-36.0) g/dl RDW 13.4 (11.0-16.0) % Plt Count 267 D (160-400) X10*3/uL MPV 9.1 L (9.4-12.4) fL Immature Gran % (Auto) 0.4 (0.0-0.4) % Neut % (Auto) 54.5 (45-73) % Lymph % (Auto) 33.7 (20-40) % [place] % (Auto) 8.9 (2-11) % Eos % (Auto) 2.1 (0-4) % Baso % (Auto) 0.4 (0-2) % Lymph # (Auto) 1.8 (1.2-4.9) X10*3/uL [place] # (Auto) 0.5 (0.1-1.2) X10*3/uL Eos # (Auto) 0.1 (0.0-0.4) X10*3/uL Baso # (Auto) 0.0 (0.0-0.2) X10*3/uL Abs Immat Gran (auto) 0.02 (0.00-0.03) X10*3/uL Absolute Neuts (auto) 2.9 (2.0-8.3) x10*3/uL Absolute Nucleated RBC 0.000 (0.0-0.012) X10*3/uL Nucleated RBC % (auto) 0.0 (0.0-0.2) /100WBC D-Dimer High Sensitivty 182 NG/ML VBG pH (7.32-7.43) VBG pCO2 mmHg VBG pO2 mmHg VBG HCO3 (22-26) mmol/L VBG O2 Saturation % VBG Base Excess mmol/L Sodium 142 (135-145) mmol/L Potassium 3.9 (3.3-5.1) mmol/L Chloride 106 (96-108) mmol/L Carbon Dioxide 30 H (22-29) mmol/L Anion Gap 10 L (12-20) BUN 21 H (9-16) mg/dL Creatinine 0.80 (0.5-1.4) mg/dL Estim Creat Clear Calc 80.7 Estimated GFR > 60 Random Glucose 97 (60-115) mg/dL Lactic Acid (0.5-2.0) mmol/L Calcium 9.2 (8.4-10.2) mg/dL Magnesium 2.0 (1.6-2.6) mg/dL Total Bilirubin 0.7 (0.0-1.0) mg/dL AST 17 (5-37) U/L ALT 24 (0-40) U/L Alkaline Phosphatase 125 H (39-117) U/L Troponin I High Sens (<3.5-35.0) ng/L B-Natriuretic Peptide (<100) pg/mL Total Protein 6.9 (6.5-8.0) g/dL Albumin 3.3 L (3.5-5.0) g/dL Urine Color Urine Appearance Urine pH (5.0-9.0) Ur Specific [place] (1.005-1.025) Urine Protein (Neg-Trace) mg/dL Urine Glucose (UA) (Negative) mg/dL Urine Ketones (Negative) mg/dL Urine Blood (Negative) Urine Nitrite (Negative) Ur Leukocyte Esterase (Negative) Urine RBC (0-2) /HPF Urine WBC (0-5) /HPF Ur Squamous Epith Cells (0-2) /HPF Urine Bacteria (None Seen) Hyaline Casts (0-2) /LPF Granular Casts COVID-19 (GISELLE) (Negative) COVID-19 Clin Com Influenza Type A (JACINTO) (Negative) Influenza Type B (JACINTO) (Negative) Influenza A & B Note 02/14/22 02/14/22 02/14/22 Range/Units 12:33 12:33 12:33 WBC (4.8-10.8) X10*3/uL RBC (4.60-5.80) X10*6/uL Hgb (14.0-18.0) g/dl Hct (42.0-52.0) % MCV (80.0-98.0) fL MCH (27.0-33.0) pg MCHC (31.0-36.0) g/dl RDW (11.0-16.0) % Plt Count (160-400) X10*3/uL MPV (9.4-12.4) fL Immature Gran % (Auto) (0.0-0.4) % Neut % (Auto) (45-73) % Lymph % (Auto) (20-40) % [place] % (Auto) (2-11) % Eos % (Auto) (0-4) % Baso % (Auto) (0-2) % Lymph # (Auto) (1.2-4.9) X10*3/uL [place] # (Auto) (0.1-1.2) X10*3/uL Eos # (Auto) (0.0-0.4) X10*3/uL Baso # (Auto) (0.0-0.2) X10*3/uL Abs Immat Gran (auto) (0.00-0.03) X10*3/uL Absolute Neuts (auto) (2.0-8.3) x10*3/uL Absolute Nucleated RBC (0.0-0.012) X10*3/uL Nucleated RBC % (auto) (0.0-0.2) /100WBC D-Dimer High Sensitivty NG/ML VBG pH (7.32-7.43) VBG pCO2 mmHg VBG pO2 mmHg VBG HCO3 (22-26) mmol/L VBG O2 Saturation % VBG Base Excess mmol/L Sodium (135-145) mmol/L Potassium (3.3-5.1) mmol/L Chloride (96-108) mmol/L Carbon Dioxide (22-29) mmol/L Anion Gap (12-20) BUN (9-16) mg/dL Creatinine (0.5-1.4) mg/dL Estim Creat Clear Calc Estimated GFR Random Glucose (60-115) mg/dL Lactic Acid 1.7 (0.5-2.0) mmol/L Calcium (8.4-10.2) mg/dL Magnesium (1.6-2.6) mg/dL Total Bilirubin (0.0-1.0) mg/dL AST (5-37) U/L ALT (0-40) U/L Alkaline Phosphatase (39-117) U/L Troponin I High Sens 5.1 (<3.5-35.0) ng/L B-Natriuretic Peptide 47 (<100) pg/mL Total Protein (6.5-8.0) g/dL Albumin (3.5-5.0) g/dL Urine Color Urine Appearance Urine pH (5.0-9.0) Ur Specific [place] (1.005-1.025) Urine Protein (Neg-Trace) mg/dL Urine Glucose (UA) (Negative) mg/dL Urine Ketones (Negative) mg/dL Urine Blood (Negative) Urine Nitrite (Negative) Ur Leukocyte Esterase (Negative) Urine RBC (0-2) /HPF Urine WBC (0-5) /HPF Ur Squamous Epith Cells (0-2) /HPF Urine Bacteria (None Seen) Hyaline Casts (0-2) /LPF Granular Casts COVID-19 (GISELLE) (Negative) COVID-19 Clin Com Influenza Type A (JACINTO) (Negative) Influenza Type B (JACINTO) (Negative) Influenza A & B Note 02/14/22 02/14/22 02/14/22 Range/Units 16:00 16:00 16:27 WBC (4.8-10.8) X10*3/uL RBC (4.60-5.80) X10*6/uL Hgb (14.0-18.0) g/dl Hct (42.0-52.0) % MCV (80.0-98.0) fL MCH (27.0-33.0) pg MCHC (31.0-36.0) g/dl RDW (11.0-16.0) % Plt Count (160-400) X10*3/uL MPV (9.4-12.4) fL Immature Gran % (Auto) (0.0-0.4) % Neut % (Auto) (45-73) % Lymph % (Auto) (20-40) % [place] % (Auto) (2-11) % Eos % (Auto) (0-4) % Baso % (Auto) (0-2) % Lymph # (Auto) (1.2-4.9) X10*3/uL [place] # (Auto) (0.1-1.2) X10*3/uL Eos # (Auto) (0.0-0.4) X10*3/uL Baso # (Auto) (0.0-0.2) X10*3/uL Abs Immat Gran (auto) (0.00-0.03) X10*3/uL Absolute Neuts (auto) (2.0-8.3) x10*3/uL Absolute Nucleated RBC (0.0-0.012) X10*3/uL Nucleated RBC % (auto) (0.0-0.2) /100WBC D-Dimer High Sensitivty NG/ML VBG pH 7.42 (7.32-7.43) VBG pCO2 39 mmHg VBG pO2 51 mmHg VBG HCO3 26 (22-26) mmol/L VBG O2 Saturation 80.0 % VBG Base Excess 1.8 mmol/L Sodium (135-145) mmol/L Potassium (3.3-5.1) mmol/L Chloride (96-108) mmol/L Carbon Dioxide (22-29) mmol/L Anion Gap (12-20) BUN (9-16) mg/dL Creatinine (0.5-1.4) mg/dL Estim Creat Clear Calc Estimated GFR Random Glucose (60-115) mg/dL Lactic Acid (0.5-2.0) mmol/L Calcium (8.4-10.2) mg/dL Magnesium (1.6-2.6) mg/dL Total Bilirubin (0.0-1.0) mg/dL AST (5-37) U/L ALT (0-40) U/L Alkaline Phosphatase (39-117) U/L Troponin I High Sens (<3.5-35.0) ng/L B-Natriuretic Peptide (<100) pg/mL Total Protein (6.5-8.0) g/dL Albumin (3.5-5.0) g/dL Urine Color Urine Appearance Urine pH (5.0-9.0) Ur Specific [place] (1.005-1.025) Urine Protein (Neg-Trace) mg/dL Urine Glucose (UA) (Negative) mg/dL Urine Ketones (Negative) mg/dL Urine Blood (Negative) Urine Nitrite (Negative) Ur Leukocyte Esterase (Negative) Urine RBC (0-2) /HPF Urine WBC (0-5) /HPF Ur Squamous Epith Cells (0-2) /HPF Urine Bacteria (None Seen) Hyaline Casts (0-2) /LPF Granular Casts COVID-19 (GISELLE) Negative (Negative) COVID-19 Clin Com See Note Influenza Type A (JACINTO) Negative (Negative) Influenza Type B (JACINTO) Negative (Negative) Influenza A & B Note See Note 02/14/22 02/14/22 Range/Units 18:48 21:52 WBC (4.8-10.8) X10*3/uL RBC (4.60-5.80) X10*6/uL Hgb (14.0-18.0) g/dl Hct (42.0-52.0) % MCV (80.0-98.0) fL MCH (27.0-33.0) pg MCHC (31.0-36.0) g/dl RDW (11.0-16.0) % Plt Count (160-400) X10*3/uL MPV (9.4-12.4) fL Immature Gran % (Auto) (0.0-0.4) % Neut % (Auto) (45-73) % Lymph % (Auto) (20-40) % [place] % (Auto) (2-11) % Eos % (Auto) (0-4) % Baso % (Auto) (0-2) % Lymph # (Auto) (1.2-4.9) X10*3/uL [place] # (Auto) (0.1-1.2) X10*3/uL Eos # (Auto) (0.0-0.4) X10*3/uL Baso # (Auto) (0.0-0.2) X10*3/uL Abs Immat Gran (auto) (0.00-0.03) X10*3/uL Absolute Neuts (auto) (2.0-8.3) x10*3/uL Absolute Nucleated RBC (0.0-0.012) X10*3/uL Nucleated RBC % (auto) (0.0-0.2) /100WBC D-Dimer High Sensitivty NG/ML VBG pH (7.32-7.43) VBG pCO2 mmHg VBG pO2 mmHg VBG HCO3 (22-26) mmol/L VBG O2 Saturation % VBG Base Excess mmol/L Sodium (135-145) mmol/L Potassium (3.3-5.1) mmol/L Chloride (96-108) mmol/L Carbon Dioxide (22-29) mmol/L Anion Gap (12-20) BUN (9-16) mg/dL Creatinine (0.5-1.4) mg/dL Estim Creat Clear Calc Estimated GFR Random Glucose (60-115) mg/dL Lactic Acid 0.6 (0.5-2.0) mmol/L Calcium (8.4-10.2) mg/dL Magnesium (1.6-2.6) mg/dL Total Bilirubin (0.0-1.0) mg/dL AST (5-37) U/L ALT (0-40) U/L Alkaline Phosphatase (39-117) U/L Troponin I High Sens (<3.5-35.0) ng/L B-Natriuretic Peptide (<100) pg/mL Total Protein (6.5-8.0) g/dL Albumin (3.5-5.0) g/dL Urine Color Yellow Urine Appearance Turbid Urine pH >= 9.0 (5.0-9.0) Ur Specific [place] <= 1.005 (1.005-1.025) Urine Protein 30 (1+) H (Neg-Trace) mg/dL Urine Glucose (UA) Negative (Negative) mg/dL Urine Ketones Negative (Negative) mg/dL Urine Blood Large (3+) H (Negative) Urine Nitrite Positive H (Negative) Ur Leukocyte Esterase Large (3+) H (Negative) Urine RBC >20 H (0-2) /HPF Urine WBC >50 H (0-5) /HPF Ur Squamous Epith Cells 0-2 (0-2) /HPF Urine Bacteria 4+ (None Seen) Hyaline Casts 6-10 (0-2) /LPF Granular Casts Present COVID-19 (GISELLE) (Negative) COVID-19 Clin Com Influenza Type A (JACINTO) (Negative) Influenza Type B (JACINTO) (Negative) Influenza A & B Note <Saira Clinton NP - Last Filed: 02/14/22 23:46> Critical Care Time Critical Care Time Critical Care Time: No <YONAS Lane - Last Filed: 02/14/22 19:50> Discharge Plan Discharge Clinical Impression: Hypoxia, Acute UTI, Physical deconditioning <YONAS Lane - Last Filed: 02/14/22 19:50> Patient Disposition: Still a Patient <YONAS Lane - Last Filed: 02/14/22 19:50> Prescriptions: No Action (DME) wet wipes See Rx Instructions .ROUTE .MEDSUPPLY Qty: 5 3RF Rx Instructions: As directed levetiracetam 100 mg/mL solution 2.5 ml PO BID naloxone 4 mg/actuation [place],Non-Aerosol 4 mg INTRANASAL ONCE PRN (Reason: Opioid Overdose) lidocaine 5 % adhesive patch,medicated 1 patch topical DAILY Rx Instructions: apply to right upper arm acetaminophen 325 mg Tablet 650 mg PO Q4H PRN (Reason: fever/pain) calcium carbonate-vitamin D3 600 mg-5 mcg (200 unit) Tablet 1 tab PO BID magnesium hydroxide [Milk of Magnesia] 400 mg/5 mL Suspension 30 ml PO DAILY PRN (Reason: Constipation) bisacodyl 10 mg Suppository 10 mg IA DAILY PRN (Reason: Constipation) potassium chloride 20 mEq tablet,ER particles/crystals 1 tab PO DAILY losartan 100 mg tablet 100 mg PO DAILY 90 Days Qty: 90 4RF gabapentin 300 mg capsule 300 mg PO BEDTIME 30 Days Qty: 30 0RF (DME) miscellaneous medical supply Misc See Rx Instructions .ROUTE .MEDSUPPLY Qty: 1 0RF Rx Instructions: RUE resting hand Splint/Sling As directed, Dx: G81.91, I67.89, duration 999 days/life time tamsulosin 0.4 mg capsule 0.4 mg PO BEDTIME 90 Days Qty: 90 1RF amlodipine 5 mg tablet 5 mg PO DAILY Xarelto 20 mg tablet 20 mg PO DAILY atorvastatin 80 mg tablet 80 mg PO DAILY ascorbic acid (vitamin C) 1,000 mg tablet 1,000 mg PO DAILY 90 Days Qty: 90 1RF methenamine hippurate 1 gram tablet 1 g PO daily 90 Days Qty: 90 1RF vancomycin 125 mg capsule 125 mg PO QID 7 Days Qty: 28 0RF <YONAS Lane - Last Filed: 02/14/22 19:50>
[2022-02-14 15:51] VITALS: BP 137/79; PULSE 81; RESP 12; O2SAT 86
--- NOTE | 2022-02-14 15:54 | PC.NURSE ---
provider made aware of low SaO2 - desat to high 70s . placed on 4L NC
[2022-02-14 16:28] LABS: COVID-19 Test Negative (Negative); IDNOW Serial# 55D5AD1C
[2022-02-14 16:30] LABS: Influenza A Negative (Negative); Influenza B2 Negative (Negative)
[2022-02-14 17:33] VITALS: BP 106/71; PULSE 70; RESP 15; O2SAT 100
[2022-02-14 18:24] VITALS: BP 101/53; PULSE 72; RESP 15; O2SAT 97
[2022-02-14 18:57] LABS: Appearance Urine Turbid; Color Urine Yellow; Glucose Urine UA Negative (Negative); Leukocyte Esterase Urine Large (3+) (Negative); Nitrite Urine Positive (Negative); PH >= 9.0 (5.0-9.0); Specific Gravity - Urine <= 1.005 (1.005-1.025); UMIC TRIGGER UACC YES; Urine Blood Large (3+) (Negative); Urine Ketones Negative (Negative); Urine Protein 30 (1+) mg/dL (Neg-Trace)
[2022-02-14 19:19] LABS: Bacteria Urine 4+ (None Seen); Granular Casts Urine Present; RBC Urine >20 /HPF (0-2); Squamous Epithelial Cell Urine 0-2 /HPF (0-2); UACC Culture Trigger YES; WBC Urine >50 /HPF (0-5)
--- NOTE | 2022-02-14 20:33 | PC.NURSE ---
Assumed care of pt. at 1900. Pt. is lying in bed at this time. Respirations are even and unlabored. Pt. is non-verbal and doesn't respond to questions. Pt. keeps pulling off the tidal monitor. Replaced monitor and all values WNL.
[2022-02-14 21:52] VITALS: BP 111/69; PULSE 69; RESP 16; O2SAT 96
--- NOTE | 2022-02-14 22:11 | PM.EVENT ---
Event Note Date of Service: 02/14/22 Event Note: I was asked by ED PA to see this pt for possibe admission as he was noted to be choking as facility. Pt is baseline non-verbal due to history of CVA. there is a conflicting report about the events at [facility], with staff reporting pt choking while the person feeding the pt said pt was not choking. Pt appears comfortable, in no respiratory distress. currently sating 100% on RA. his labs reviewed showed no leukocytosis, no lactic acidosis, +ve UA which he was recently treated for but has a chronic finley inplace with frequent positive UAs in the past. viral serology negative CT of the chest was obtained which showed no evidence of PNA, no evidence of volume overload and no evidence of aspiration. On review of his chart, pt already on mechanical soft texture diet at facility. after my exam, and evaluation I do not feel that pt requires inpatient hospital care. I do recommend [facility] to stick strictly to the diet set for this pt. and if there is evidence that he is not tolerating, to assess with speech for new diet recommendation. Time Spent With Patient Time: Total time managing care of this patient today ____ minutes.
[2022-02-14 22:17] LABS: Lactic Acid 0.6 mmol/L (0.5-2.0)
--- NOTE | 2022-02-14 23:50 | PC.NURSE ---
Called [facility] ([phone]) to let them know that pt. will not be admitted and will be returning to [place]. This will most likely happen tomorrow as we are unable to obtain transport for tonight. Pt's O2 and end tidal co2 has been stable. Let [facility] know this and to follow his strict diet per the recommendation of our hospitalist.
--- NOTE | 2022-02-14 23:56 | MHC.EDTECH ---
Tristian called at [phone] for a bls transfer back to [facility] spoke with Leah booked for 9AM.Rn and Charge Nurse aware.
[2022-02-15 05:55] VITALS: BP 121/73; PULSE 61; RESP 13; TEMP 36.8; O2SAT 99
--- NOTE | 2022-02-15 05:57 | MHC.EDTECH ---
Pt soiled with loose stool. Pt given anshul care and bed linen changed. Pt given warm blanket and call giraldo placed in reach
[2022-02-15 07:33] VITALS: BP 115/69; PULSE 58; TEMP 36.6; O2SAT 99
--- NOTE | 2022-02-15 10:03 | PHA.MEDREC ---
Pharmacy Consult ? Medication Reconciliation Pharmacy has completed the medication reconciliation. Completed med rec from patient list from facility ([facility])
== END 2022-02-15 12:07 | disposition skilled nursing facility (03) ==
PROVIDERS: Physician Assistant; Emergency Provider Student in an Organized Health Care Education/Training Program
DX: R09.02 Hypoxemia (principal); N39.0 Urinary tract infection, site not specified; R53.81 Other malaise; Z20.822 Contact with and (suspected) exposure to COVID-19; I69.322 Dysarthria following cerebral infarction; I69.351 Hemiplegia and hemiparesis following cerebral infarction affecting right dominant side; I10 Essential (primary) hypertension; E78.00 Pure hypercholesterolemia, unspecified; Z87.440 Personal history of urinary (tract) infections; Z99.3 Dependence on wheelchair
CPT/HCPCS: 36415; 71045; 71260; 74177; 80053; 81001; 82803; 83605; 83735; 83880; 84484; 85025; 85379; 87040; 87086; 87502; 87635; 93005; 96365; 96366; 99284; J0696; Q9967

== ENCOUNTER → 2022-08-05 14:01 | Outpatient (BNVA) | payer OTHER, SELFPAY | PROVIDERS: Visit Provider Internal Medicine | DX: M86.9 Osteomyelitis, unspecified (principal) | CPT/HCPCS: 99212 ==

== ENCOUNTER 2022-10-03 08:24 | Inpatient (IN) | payer OTHER, SELFPAY ==
--- NOTE | ~2022-10-03 | XR_ITS ---
EXAMINATION: XR ABDOMEN COMPLETE CLINICAL INDICATION: Confirm suprapubic catheter COMPARISON: Previous CT of the abdomen and pelvis January 2022 TECHNIQUE: 2 views of the abdomen. FINDINGS: There is a Walker catheter projecting over the pelvis are compatible with a suprapubic tube. There is severe constipation. The large and small bowel appear dilated on questionable for an ileus versus distal large bowel obstruction. No free air. Degenerative changes of the spine and hip joints. XR/XR abdomen min 2V IMPRESSION: Walker catheter in the pelvis presumably representing suprapubic tube. Severe constipation. Dilated small and large bowel, question ileus versus distal large bowel obstruction.
--- NOTE | ~2022-10-03 | CT_ITS ---
EXAMINATION: CT ABDOMEN AND PELVIS WITHOUT CONTRAST CLINICAL INFORMATION: COMPARISON: Prior exam from January 2022 not available for comparison at this time. TECHNIQUE: Multidetector volumetric imaging was performed from the superior aspect of the liver through the pubic symphysis. Sagittal and coronal reformatted images were obtained on the technologist's workstation. This CT examination was performed using dose optimization techniques as appropriate, variously including the following: *Automated exposure control *Adjustment of mA and/or kV according to patient size (this includes techniques or standardized protocols for targeted exams where dose is matched to indication/reason for exam; i.e. extremities or head) *Use of iterative reconstruction technique DLP: 892 mGy-cm FINDINGS: LUNG BASES: Minimal subsegmental atelectasis at the lung bases. Trace bilateral pleural effusions. Upper normal heart size and trace pericardial effusion. LIVER, GALLBLADDER, AND BILIARY TREE: The liver is normal in size, shape, and attenuation. No focal hepatic lesion or biliary ductal dilatation is present. The gallbladder is unremarkable with no evidence of radiopaque gallstones, gallbladder wall thickening, or obvious pericholecystic inflammatory changes. PANCREAS: Unremarkable. SPLEEN: Upper normal size measuring 13 cm in length ADRENAL GLANDS: Unremarkable. KIDNEYS AND URETERS: Bilateral renal stones right greater than left. 2 large central renal pelvis stones in the right kidney borderline staghorn stones measuring 1.2 x 1.5 cm and 0.8 x 2.4 cm. Mild right hydronephrosis. No ureteral dilatation or ureteral stone. BLADDER: There is a suprapubic tube in the bladder. Bladder is empty. GASTROINTESTINAL TRACT: There is a large amount of stool in the colon suggestive of severe constipation. The colon is dilated. There is wall thickening of the distal colon and rectum are questionable for stercoral colitis related to chronic obstruction. Small bowel does not appear dilated. The appendix is normal.. ABDOMINAL WALL: Small left inguinal hernia containing fat. LYMPH NODES: Normal. VASCULAR: Unremarkable. PELVIC VISCERA: Unremarkable. OSSEOUS STRUCTURES: Degenerative changes of the spine. Osteopenia. There is soft tissue swelling over the lower sacrum and coccyx. There is a small amount of air in the soft tissues. There may be bone loss of the lower sacrum and upper coccyx. Appearance is questionable for osteomyelitis. CT/CT abdomen pelvis wo IV con IMPRESSION: Severe constipation. Question stercoral colitis related to chronic obstruction. This may be causing mild secondary large bowel obstruction. Sacral decubitus ulcer and question mild osteomyelitis of the distal sacrum and coccyx. Suprapubic tube in the bladder in satisfactory position. Bilateral renal stones, right greater than left. Fleischner guidelines were followed.
[2022-10-03 08:30] VITALS: BP 109/61; BP 114/69; PULSE 52; PULSE 56; RESP 16; TEMP 37.1; O2SAT 100; O2SAT 97; BMI 22.0
--- NOTE | 2022-10-03 08:51 | PC.NURSE ---
Interp utilized to assess patient. He is nonverbal baseline. Pt reported he is having no pain at suprapubic site, and no abdominal pain noted. Pt has been itching at lesions on Right shoulder but denies they are itching. Suprapubic has dressing over finley, blood noted on dressing. Per [facility] noted to have a large amount this morning on morning rounds, even when they placed a pressure dressing on site, bleeding continued, ? if suprapubic has been pulled out? urine still present in bag, cloudy w/ sediment present
--- NOTE | 2022-10-03 09:01 | ED_ITS ---
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 Suspect catheter was pulled on/dislodged, however urine still draining into finley bag. No reported trauma, fever, nause a/vomiting or hematuria Related Data Home Medications Medication Instructions Recorded Confirmed amlodipine 5 mg tablet 5 mg PO DAILY 06/20/20 02/15/22 acetaminophen 325 mg tablet 650 mg PO Q4H PRN fever/pain 02/16/21 02/14/22 bisacodyl 10 mg rectal suppository 10 mg NC DAILY PRN Constipation 02/16/21 02/14/22 calcium carbonate 600 mg-vitamin 1 tab PO BID 02/16/21 02/15/22 D3 5 mcg (200 unit) tablet lidocaine 5 % topical patch 1 patch topical DAILY 02/16/21 02/15/22 magnesium hydroxide 400 mg/5 mL 30 ml PO DAILY PRN Constipation 02/16/21 02/14/22 oral suspension (Milk of Magnesia) levetiracetam 100 mg/mL oral 2.5 ml PO BID 02/26/21 02/15/22 solution naloxone 4 mg/actuation nasal spray 4 mg intranasal ONCE PRN Opioid 02/26/21 02/14/22 Overdose potassium chloride 20 mEq 20 meq PO DAILY 06/23/21 02/15/22 tablet,extended release(part/cryst) atorvastatin 80 mg tablet 80 mg PO DAILY 01/26/22 02/15/22 rivaroxaban 20 mg tablet (Xarelto) 20 mg PO DAILY 01/26/22 02/15/22 magnesium citrate 150 ml PO DAILY PRN Constipation 02/15/22 02/15/22 oxycodone 5 mg tablet 5 mg PO Q6H PRN Pain 02/15/22 02/15/22 sodium phosphates 19 gram-7 118 ml NC DAILY PRN Constipation 02/15/22 02/15/22 gram/118 mL enema (Fleet Enema) vancomycin 125 mg capsule 125 mg PO MOWEFR 02/15/22 02/15/22 Previous Rx's Medication Instructions Recorded losartan 100 mg tablet 100 mg PO DAILY 90 days #90 tabs 02/07/20 wet wipes #5 multiple units 03/12/20 tamsulosin 0.4 mg capsule 0.4 mg PO BEDTIME 90 days #90 caps 03/22/20 gabapentin 300 mg capsule 300 mg PO BEDTIME 30 days #30 caps 03/27/20 miscellaneous medical supply #1 ea 03/27/20 ascorbic acid (vitamin C) 1,000 mg 1,000 mg PO DAILY 90 days #90 tabs 01/27/22 tablet methenamine hippurate 1 gram tablet 1 g PO daily 90 days #90 tabs 01/27/22 levofloxacin 750 mg tablet 750 mg PO DAILY 7 days #7 tabs 02/14/22 Allergies Allergy/AdvReac Type Severity Reaction Status Date / Time No Known Allergies Allergy Verified 10/03/22 08:35 [No Known Allergies*] Review of Systems Review of Systems: Constitutional: No Fever, No Chills Gastrointestinal: No Vomiting,No Abdominal pain Genitourinary: +blood at stoma site, No Dysuria, No Urinary Frequency, No Hematuria, No Flank Pain Skin: No Skin Lesions, No rash Neuro: No Weakness Yes all other systems are reviewed and are negative Constitutional: Constitutional: Reports as per [facility] Past Medical History Attestation statement: The following information was validated with the patient. Source: old records reviewed Medical History C. 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 Mother No problems noted. Social History Social History Household Members: None Household Members Other:: resides at [facility] [place] ([phone]) Housing: Jail Are you a primary palliative care specialist to a significant other at home: No Do you presently have visiting nurse or other home services: No Unable to assess alcohol history related to: Unable to respond Alcohol intake: unknown Patient Tobacco Use Status: Tobacco use Unknown Advance Directives: Yes Advance Directives on File: Yes Advance Directives Date on File: 07/25/21 service: No Current occupational status: disabled Physical Exam Vital Signs: Vital Signs: Last Vital Signs Temp 97.6 F 10/03/22 10:28 Pulse 48 L 10/03/22 10:28 Resp 13 10/03/22 10:28 BP 116/66 10/03/22 10:28 Pulse Ox 99 10/03/22 10:28 O2 Del Method Room Air 10/03/22 10:28 BMI result Body Mass Index 22.0 Const: General: cooperative, healthy appearing and no acute distress Limitations: no limitations HEENT: Head: Yes normal to inspection and Yes atraumatic Ears: hearing grossly normal bilaterally General nose exam: Normal external nose present Face and sinus: Yes normal facial exam Eyes: General: appearance normal, both eyes and all related structures EOM: EOMs intact bilaterally Neck: Neck: Yes normal visual inspection and Yes no meningeal signs Resp: Effort & Inspection: normal respiratory effort and no respiratory distress Cardio: Rate: regular rate Heart sounds: S1 normal heart sound present and S2 normal heart sound present GI: Other: Suprapubic catheter site noted with mild stoma friability, no active bleeding. Small amount of dry blood noted to dressing. No fluctuance/induration or active drainage. Abdomen mildly tender around area, soft, nondistended, no rebound or guarding. No warmth or surrounding erythema Inspection: Yes normal to inspection Palpation (GI): Soft to palpation, Tenderness to palpation present (GI), no guarding and not rigid : Other: Skin: Rashes: no rashes Wounds: no wounds Neuro: Other: Nonverbal at baseline, paraplegia General: tone normal and no meningeal signs Extrem: General: Yes normal to inspection Course Course Course Narrative: -1117--mild leukopenia 4.6. H&H stable. Labs otherwise the patient's baseline -UA infected > IV Rocephin ordered XR abdomen min 2V IMPRESSION: Finley catheter in the pelvis presumably representing suprapubic tube. Severe constipation. Dilated small and large bowel, question ileus versus distal large bowel obstruction. >> will obtain CT AP for further eval 1339--CT abdomen pelvis wo IV con IMPRESSION: Severe constipation. Question stercoral colitis related to chronic obstruction. This may be causing mild secondary large bowel obstruction. Sacral decubitus ulcer and question mild osteomyelitis of the distal sacrum and coccyx. Suprapubic tube in the bladder in satisfactory position. Bilateral renal stones, right greater than left. ? Fleischner guidelines were followed. > no stool in rectal vault. Sacral/decubitus ulcer noted, known chronic wound followed by wound care, dressing was intact, appears clean and dry, please refer to imaging above, no surrounding cellulitis, fluctuance or induration > will consult General surgery, Dr. Pugh >> evaluated patient in the ED, abdomen soft, recommends medicine admit. 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 On exam VSS, NAD, nonverbal, physical exam as above with mild stoma friability, no active bleeding noted, no fluctuance/induration or drainage. Cloudy odorous urine noted in Finley bag. Concern for catheter dislodgement/trauma or pulling and UTI. No evidence of active bleeding or cellulitis. Low suspicion for perforation Plan: Change suprapubic catheter, labs, UA Please refer to course for remaining clinical decision making, interpretation of labs/imaging results, and discussions with consultants and/or family members. Differential Diagnosis Differential Diagnoses: The differential diagnosis associated with the presentation includes As above Admission/Observation Consideration of admission/observation: Escalation of care including admission/observation considered Lab Data MDM Lab Attestation statement: I reviewed the patient's lab results. 10/03/22 09:50 10/03/22 09:50 Labs: Lab Results 10/03/22 10/03/22 10/03/22 Range/Units 09:50 09:50 10:48 WBC 4.6 L (4.8-10.8) X10*3/uL RBC 3.45 L (4.60-5.80) X10*6/uL Hgb 11.4 L (14.0-18.0) g/dl Hct 33.6 L (42.0-52.0) % MCV 97.4 (80.0-98.0) fL MCH 33.0 (27.0-33.0) pg MCHC 33.9 (31.0-36.0) g/dl RDW 13.3 (11.0-16.0) % Plt Count 160 D (160-400) X10*3/uL MPV 9.3 L (9.4-12.4) fL Immature Gran % (Auto) 0.2 (0.0-0.4) % Neut % (Auto) 59.4 (45-73) % Lymph % (Auto) 27.4 (20-40) % [place] % (Auto) 8.0 (2-11) % Eos % (Auto) 4.6 H (0-4) % Baso % (Auto) 0.4 (0-2) % Lymph # (Auto) 1.3 (1.2-4.9) X10*3/uL [place] # (Auto) 0.4 (0.1-1.2) X10*3/uL Eos # (Auto) 0.2 (0.0-0.4) X10*3/uL Baso # (Auto) 0.0 (0.0-0.2) X10*3/uL Abs Immat Gran (auto) 0.01 (0.00-0.03) X10*3/uL Absolute Neuts (auto) 2.7 (2.0-8.3) x10*3/uL Absolute Nucleated RBC 0.000 (0.0-0.012) X10*3/uL Nucleated RBC % (auto) 0.0 (0.0-0.2) /100WBC Sodium 143 (135-145) mmol/L Potassium 3.5 (3.3-5.1) mmol/L Chloride 109 H (96-108) mmol/L Carbon Dioxide 27 (22-29) mmol/L Anion Gap 11 L (12-20) BUN 23 H (9-16) mg/dL Creatinine 0.95 (0.5-1.4) mg/dL Estim Creat Clear Calc 73.0 Estimated GFR > 60 Random Glucose 93 (60-115) mg/dL Calcium 9.0 (8.4-10.2) mg/dL Total Bilirubin 0.7 (0.0-1.0) mg/dL Direct Bilirubin 0.3 (0.0-0.5) mg/dL AST 21 (5-37) U/L ALT 27 (0-40) U/L Alkaline Phosphatase 95 (39-117) U/L C-Reactive Protein 0.80 H (< or = 0.50) mg/dL Total Protein 6.4 L (6.5-8.0) g/dL Albumin 3.1 L (3.5-5.0) g/dL Urine Color Yellow Urine Appearance Turbid Urine pH 6.0 (5.0-9.0) Ur Specific [place] 1.015 (1.005-1.025) Urine Protein 100 (2+) H (Neg-Trace) mg/dL Urine Glucose (UA) Negative (Negative) mg/dL Urine Ketones Negative (Negative) mg/dL Urine Blood Large (3+) H (Negative) Urine Nitrite Positive H (Negative) Ur Leukocyte Esterase Large (3+) H (Negative) Urine RBC >20 H (0-2) /HPF Urine WBC >50 H (0-5) /HPF Ur Squamous Epith Cells 0-2 (0-2) /HPF Urine Bacteria 4+ (None Seen) Hyaline Casts 3-5 (0-2) /LPF Radiology Impression Discussion of test interpretation with radiology: I have reviewed the radiologist's reading. Independent Historian Clinical information obtained from an independent historian. History obtained from or confirmed by: EMS External Record Review External record reviewed: Inpatient record, Office record, Outpatient record, Prior outpatient labs, Prior outpatient radiology, Primary care record and Outs reilly ED record Tests considered The following testing was considered but not selected: As above Chronic Conditions Patient?s care impacted by: Hypertension and Other Procedures Catheter Insertion (Urinary) Date of insertion: 10/03/22 Time of insertion: 09:37 Reason for placing indwelling catheter: Other (Bleeding around stoma, ?displaced) Bladder scan/ultrasound used before catheterization: No Antiseptic solution prep: Povidone-Iodine Topical anesthesia used: No Catheter type/location: Suprapubic Size (Stateless): 16 Catheter balloon size (mL): 10 Catheter balloon amount: 10 Results: successfully catheterized-immediate flow Procedure performed: without complications Comment: Suprapubic catheter replacement Critical Care Time Critical Care Time Critical Care Time: Yes Total Critical Care Time: 45 Attestation: I have personally provided critical care time exclusive of time spent on separately billable procedures. Time includes review of lab data, radiology results, discussion with consultants, and monitoring for potential decompensation. Intervention performed as documented. Discharge Plan Discharge Clinical Impression: Decubitus ulcer of sacral area, Large bowel obstruction, Encounter for suprapubic catheter care Patient Disposition: Still a Patient Prescriptions: No Action (DME) wet wipes See Rx Instructions .ROUTE .MEDSUPPLY Qty: 5 3RF Rx Instructions: As directed levetiracetam 100 mg/mL solution 2.5 ml PO BID naloxone 4 mg/actuation [place],Non-Aerosol 4 mg INTRANASAL ONCE PRN (Reason: Opioid Overdose) lidocaine 5 % adhesive patch,medicated 1 patch topical DAILY Rx Instructions: apply to right upper arm AND REMOVE AT BEDTIME acetaminophen 325 mg Tablet 650 mg PO Q4H PRN (Reason: fever/pain) calcium carbonate-vitamin D3 600 mg-5 mcg (200 unit) Tablet 1 tab PO BID magnesium hydroxide [Milk of Magnesia] 400 mg/5 mL Suspension 30 ml PO DAILY PRN (Reason: Constipation) bisacodyl 10 mg Suppository 10 mg NC DAILY PRN (Reason: Constipation) potassium chloride 20 mEq tablet,ER particles/crystals 20 meq PO DAILY levofloxacin 750 mg tablet 750 mg PO DAILY 7 Days Qty: 7 0RF Fleet Enema 19-7 gram/118 mL Enema 118 ml NC DAILY PRN (Reason: Constipation) magnesium citrate Solution 150 ml PO DAILY PRN (Reason: Constipation) oxycodone 5 mg Tablet 5 mg PO Q6H PRN (Reason: Pain) vancomycin 125 mg capsule 125 mg PO MOWEFR losartan 100 mg tablet 100 mg PO DAILY 90 Days Qty: 90 4RF gabapentin 300 mg capsule 300 mg PO BEDTIME 30 Days Qty: 30 0RF (DME) miscellaneous medical supply Misc See Rx Instructions .ROUTE .MEDSUPPLY Qty: 1 0RF Rx Instructions: RUE resting hand Splint/Sling As directed, Dx: G81.91, I67.89, duration 999 days/life time tamsulosin 0.4 mg capsule 0.4 mg PO BEDTIME 90 Days Qty: 90 1RF amlodipine 5 mg tablet 5 mg PO DAILY Xarelto 20 mg tablet 20 mg PO DAILY atorvastatin 80 mg tablet 80 mg PO DAILY ascorbic acid (vitamin C) 1,000 mg tablet 1,000 mg PO DAILY 90 Days Qty: 90 1RF methenamine hippurate 1 gram tablet 1 g PO daily 90 Days Qty: 90 1RF
[2022-10-03 09:55] LABS: MANUAL DIFF FLAG NO
[2022-10-03 09:56] LABS: Basophils Percent Auto 0.4 % (0-2); Eosinophils Absolute Auto 0.2 X10*3/uL (0.0-0.4); Eosinophils Percent Auto 4.6 % (0-4); Hematocrit 33.6 % (42.0-52.0); Hemoglobin 11.4 g/dl (14.0-18.0); Imm Gran Abs Auto 0.01 X10*3/uL (0.00-0.03); Imm Gran Pct Auto 0.2 % (0.0-0.4); Lymphocytes Absolute Auto 1.3 X10*3/uL (1.2-4.9); Lymphocytes Percent Auto 27.4 % (20-40); Mean Corpuscular HGB Conc 33.9 g/dl (31.0-36.0); Mean Corpuscular Volume 97.4 fL (80.0-98.0); Mean Platelet Volume 9.3 fL (9.4-12.4); Monocytes Absolute Auto 0.4 X10*3/uL (0.1-1.2); Neutrophils Absolute Auto 2.7 x10*3/uL (2.0-8.3); Neutrophils Percent Auto 59.4 % (45-73); Platelet Count 160 X10*3/uL (160-400); Red Blood Count 3.45 X10*6/uL (4.60-5.80); Red Cell Distribution Width 13.3 % (11.0-16.0); White Blood Count 4.6 X10*3/uL (4.8-10.8)
--- NOTE | 2022-10-03 10:03 | PC.NURSE ---
Provider at bedside with this RN, Suprapubic in place removed, balloon only had 5cc inside, was suppose to contain 10cc. Finley removed easily. New 16f 10cc finley placed with ease, new dressing placed to assess if further drainage, pt tolerated well. Labs obtained
[2022-10-03 10:27] LABS: Alanine Aminotransferase 27 U/L (0-40); Albumin Level 3.1 g/dL (3.5-5.0); Alkaline Phosphatase 95 U/L (39-117); Anion Gap 11 (12-20); Aspartate Amino Transferase 21 U/L (5-37); Bilirubin Direct 0.3 mg/dL (0.0-0.5); Bilirubin Total 0.7 mg/dL (0.0-1.0); Blood Urea Nitrogen 23 mg/dL (9-16); Carbon Dioxide 27 mmol/L (22-29); Chloride 109 mmol/L (96-108); Estimated Glomerular Filt Rate > 60; Glucose Random 93 mg/dL (60-115); Potassium 3.5 mmol/L (3.3-5.1); Sodium 143 mmol/L (135-145); Total Protein 6.4 g/dL (6.5-8.0)
[2022-10-03 10:28] VITALS: BP 116/66; PULSE 48; RESP 13; TEMP 36.4; O2SAT 99
[2022-10-03 10:55] LABS: Appearance Urine Turbid; Color Urine Yellow; Glucose Urine UA Negative (Negative); Leukocyte Esterase Urine Large (3+) (Negative); Nitrite Urine Positive (Negative); Specific Gravity - Urine 1.015 (1.005-1.025); UMIC TRIGGER UACC YES; Urine Blood Large (3+) (Negative); Urine Ketones Negative (Negative); Urine Protein 100 (2+) mg/dL (Neg-Trace)
[2022-10-03 11:09] LABS: Bacteria Urine 4+ (None Seen); RBC Urine >20 /HPF (0-2); Squamous Epithelial Cell Urine 0-2 /HPF (0-2); UACC Culture Trigger YES; WBC Urine >50 /HPF (0-5)
[2022-10-03] MEDS: cefTRIAXone sodium 1 GM in 0.9 % Sodium Chloride 50 ML IV (11:48)
--- NOTE | 2022-10-03 14:03 | PC.NURSE ---
Marycruz BRANHAM to bedside; rectal exam preformed. dressing applied to coccyx. pt repositioned to R. side. see provider report for picture of chronic osteomyletitis sight.
[2022-10-03 14:22] LABS: Erythrocyte Sedimentation Rate 34 MM/HR (0-15)
--- NOTE | 2022-10-03 14:36 | PHA.MEDREC ---
Pharmacy Consult ? Medication Reconciliation Pharmacy has completed the medication reconciliation. Patient with list from [facility]
--- NOTE | 2022-10-03 14:45 | PC.NURSE ---
Attempted to obtain BCx2 and Lactic acid, able to obtain one set of cultures, and lactic, unable to obtain second set of C, provider aware. Pt pulling arm away saying no
--- NOTE | 2022-10-03 14:53 | P.CONGS_ITS ---
History of Present Illness Consult details Consult date: 10/03/22 Narrative: as per nursing staff, no events reported overnight does not seem to have any abdominal pain Review of Systems Review of Systems: patient not verbally communicative Constitutional: Constitutional: Denies chills and Denies fever(s) PMFSH Past Medical History Medical History C. difficile diarrhea Cerebrovascular accident (CVA) involving left cerebral hemisphere Chronic constipation COVID-19 Essential hypertension Hemiplegia of right dominant side due to acute cerebrovascular disease High cholesterol History of CVA (cerebrovascular accident) HTN (hypertension) HTN (hypertension) Osteomyelitis Paroxysmal atrial fibrillation Septic shock Stroke UTI (urinary tract infection) due to urinary indwelling Walker catheter Family History Family History Father No problems noted. Mother No problems noted. Surgical History Surgical History No pertinent past surgical history Social History Social History Household Members: Other Household Members Other:: resides at [facility] [place] ([phone]) Housing: Correction Are you a primary medical care administrator to a significant other at home: No Do you presently have visiting nurse or other home services: No Unable to assess alcohol history related to: Unknown Alcohol intake: unknown Patient Tobacco Use Status: Tobacco use Unknown Use of substances other than those prescribed or required for medical reasons: Unknown Currently Displaying Signs/Symptoms of Drug Intoxication Withdrawal: No Advance Directives: Yes Advance Directives on File: Yes Advance Directives Date on File: 07/25/21 Do you have thoughts of harming others: Vague Do you have a plan to hurt others: No Plan Nutrition Risks: No Nutritional Risk service: No Current occupational status: disabled Meds Allergies Allergy/AdvReac Type Severity Reaction Status Date / Time No Known Allergies Allergy Verified 10/03/22 08:35 [No Known Allergies*] Home Medications Medication Instructions Recorded Confirmed Last Taken Type amlodipine 5 mg tablet 5 mg PO DAILY 06/20/20 10/03/22 02/14/22 History acetaminophen 325 mg tablet 650 mg PO Q4H PRN fever/pain 02/16/21 10/03/22 Unknown History bisacodyl 10 mg rectal suppository 10 mg TN DAILY PRN Constipation 02/16/21 10/03/22 Unknown History calcium carbonate 600 mg-vitamin 1 tab PO BID 02/16/21 10/03/22 02/14/22 History D3 5 mcg (200 unit) tablet lidocaine 5 % topical patch 1 patch topical DAILY 02/16/21 10/03/22 02/14/22 History magnesium hydroxide 400 mg/5 mL 30 ml PO DAILY PRN Constipation 02/16/21 10/03/22 Unknown History oral suspension (Milk of Magnesia) levetiracetam 100 mg/mL oral 2.5 ml PO BID 02/26/21 10/03/22 02/14/22 History solution naloxone 4 mg/actuation nasal spray 4 mg intranasal ONCE PRN Opioid 02/26/21 10/03/22 Unknown History Overdose potassium chloride 20 mEq 20 meq PO DAILY 06/23/21 10/03/22 02/14/22 History tablet,extended release(part/cryst) atorvastatin 80 mg tablet 80 mg PO DAILY 01/26/22 10/03/22 02/14/22 History rivaroxaban 20 mg tablet (Xarelto) 20 mg PO DAILY@1700 01/26/22 10/03/22 02/14/22 History magnesium citrate 150 ml PO DAILY PRN Constipation 02/15/22 10/03/22 Unknown History oxycodone 5 mg tablet 5 mg PO Q6H PRN Pain 02/15/22 10/03/22 Unknown History sodium phosphates 19 gram-7 118 ml TN DAILY PRN Constipation 02/15/22 10/03/22 Unknown History gram/118 mL enema (Fleet Enema) acetaminophen 325 mg tablet 325 mg PO BEDTIME 10/03/22 10/03/22 Unknown History (Tylenol) acetic acid 0.25 % irrigation 50 ml irrigation TUTHSA@2100 10/03/22 10/03/22 Unknown History solution Physical Exam Vital Signs: Vital Signs: Last Vital Signs Temp 97.6 F 10/03/22 10:28 Pulse 48 L 10/03/22 10:28 Resp 13 10/03/22 10:28 BP 116/66 10/03/22 10:28 Pulse Ox 99 10/03/22 10:28 O2 Del Method Room Air 10/03/22 10:28 BMI result Body Mass Index 22.0 Const: General: comfortable and no acute distress Resp: Effort & Inspection: normal respiratory effort Cardio: Rhythm: regular rhythm GI: Other: soft, nondistended, no guarding, no rebound, no apparent tenderness, suprapubic tube in place Results Labs 10/03/22 09:50 10/03/22 09:50 Labs: Abnormal lab results 10/03/22 10/03/22 10/03/22 Range/Units 09:50 09:50 09:50 WBC 4.6 L (4.8-10.8) X10*3/uL RBC 3.45 L (4.60-5.80) X10*6/uL Hgb 11.4 L (14.0-18.0) g/dl Hct 33.6 L (42.0-52.0) % MPV 9.3 L (9.4-12.4) fL Eos % (Auto) 4.6 H (0-4) % ESR 34 H (0-15) MM/HR Chloride 109 H (96-108) mmol/L Anion Gap 11 L (12-20) BUN 23 H (9-16) mg/dL C-Reactive Protein 0.80 H (< or = 0.50) mg/dL Total Protein 6.4 L (6.5-8.0) g/dL Albumin 3.1 L (3.5-5.0) g/dL Urine Protein (Neg-Trace) mg/dL Urine Blood (Negative) Urine Nitrite (Negative) Ur Leukocyte Esterase (Negative) Urine RBC (0-2) /HPF Urine WBC (0-5) /HPF 10/03/22 Range/Units 10:48 WBC (4.8-10.8) X10*3/uL RBC (4.60-5.80) X10*6/uL Hgb (14.0-18.0) g/dl Hct (42.0-52.0) % MPV (9.4-12.4) fL Eos % (Auto) (0-4) % ESR (0-15) MM/HR Chloride (96-108) mmol/L Anion Gap (12-20) BUN (9-16) mg/dL C-Reactive Protein (< or = 0.50) mg/dL Total Protein (6.5-8.0) g/dL Albumin (3.5-5.0) g/dL Urine Protein 100 (2+) H (Neg-Trace) mg/dL Urine Blood Large (3+) H (Negative) Urine Nitrite Positive H (Negative) Ur Leukocyte Esterase Large (3+) H (Negative) Urine RBC >20 H (0-2) /HPF Urine WBC >50 H (0-5) /HPF Short CBC 10/03/22 Range/Units 09:50 WBC 4.6 L (4.8-10.8) X10*3/uL Hgb 11.4 L (14.0-18.0) g/dl Hct 33.6 L (42.0-52.0) % Plt Count 160 D (160-400) X10*3/uL BMP 10/03/22 09:50 Sodium 143 Potassium 3.5 Chloride 109 H Carbon Dioxide 27 BUN 23 H Creatinine 0.95 Calcium 9.0 Liver Function 10/03/22 Range/Units 09:50 Total Bilirubin 0.7 (0.0-1.0) mg/dL Direct Bilirubin 0.3 (0.0-0.5) mg/dL AST 21 (5-37) U/L ALT 27 (0-40) U/L Alkaline Phosphatase 95 (39-117) U/L Albumin 3.1 L (3.5-5.0) g/dL Urine 10/03/22 Range/Units 10:48 Urine Color Yellow Urine Appearance Turbid Urine pH 6.0 (5.0-9.0) Ur Specific [place] 1.015 (1.005-1.025) Urine Protein 100 (2+) H (Neg-Trace) mg/dL Urine Glucose (UA) Negative (Negative) mg/dL All other labs normal. Assessment and Plan (1) Chronic constipation: Status: Acute CT images reviewed - similar with old images showing diffuse distension and high- stool volume consider doing Gastrografin enema to image rectum and rule out obstruction al though clinically does not seem to be obstructed stool softeners, bowel regimen abdominal exam very benign Time Spent With Patient Time: Total time managing care of this patient today ____ minutes. Procedures Date of Service Date of Service: 10/04/22
--- NOTE | 2022-10-03 14:59 | PM.CNGS ---
History of Present Illness Consult details Consult date: 10/03/22 Narrative: 67-year-old male with multiple medical problems including renal retention, suprapubic tube, recurrent UTIs, dysarthria secondary to previous CVA, bed-bound, who was brought to the ER from the residential because of in the suprapubic tube catheter. The suspicion was he had in add vertically pulled on his suprapubic tube. There was still note of urine however when he was seen in the ER. He had a CAT scan done in the ER which showed dilated, stool filled colon with question of stercoral colitis. However, the patient denies any abdominal pain. There is no note of any vomiting or nausea. Review of Systems Review of Systems: the patient does not provide difficult review of systems and only answers are no to some questions PMFSH Past Medical History Medical History (Updated 10/14/22 @ 00:02 by Simran Dayuniel) C. 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 Mother No problems noted. Surgical History Surgical History No pertinent past surgical history Social History Social History Household Members: Other Household Members Other:: resides at [place], [place] ([phone]) Housing: [facility] Are you a primary health care marketing specialist to a significant other at home: No Do you presently have visiting nurse or other home services: No Unable to assess alcohol history related to: Unknown Alcohol intake: unknown Patient Tobacco Use Status: Tobacco use Unknown Advance Directives Date on File: 07/25/21 service: No Current occupational status: disabled Meds Allergies Allergy/AdvReac Type Severity Reaction Status Date / Time No Known Allergies Allergy Verified 10/03/22 08:35 [No Known Allergies*] Home Medications Medication Instructions Recorded Confirmed Last Taken Type amlodipine 5 mg tablet 5 mg PO DAILY 06/20/20 10/03/22 02/14/22 History acetaminophen 325 mg tablet 650 mg PO Q4H PRN fever/pain 02/16/21 10/03/22 Unknown History bisacodyl 10 mg rectal suppository 10 mg MI DAILY PRN Constipation 02/16/21 10/03/22 Unknown History calcium carbonate 600 mg-vitamin 1 tab PO BID 02/16/21 10/03/22 02/14/22 History D3 5 mcg (200 unit) tablet lidocaine 5 % topical patch 1 patch topical DAILY 02/16/21 10/03/22 02/14/22 History magnesium hydroxide 400 mg/5 mL 30 ml PO DAILY PRN Constipation 02/16/21 10/03/22 Unknown History oral suspension (Milk of Magnesia) levetiracetam 100 mg/mL oral 2.5 ml PO BID 02/26/21 10/03/22 02/14/22 History solution naloxone 4 mg/actuation nasal spray 4 mg intranasal ONCE PRN Opioid 02/26/21 10/03/22 Unknown History Overdose potassium chloride 20 mEq 20 meq PO DAILY 06/23/21 10/03/22 02/14/22 History tablet,extended release(part/cryst) atorvastatin 80 mg tablet 80 mg PO DAILY 01/26/22 10/03/22 02/14/22 History rivaroxaban 20 mg tablet (Xarelto) 20 mg PO DAILY@1700 01/26/22 10/03/22 02/14/22 History magnesium citrate 150 ml PO DAILY PRN Constipation 02/15/22 10/03/22 Unknown History oxycodone 5 mg tablet 5 mg PO Q6H PRN Pain 02/15/22 10/03/22 Unknown History sodium phosphates 19 gram-7 118 ml MI DAILY PRN Constipation 02/15/22 10/03/22 Unknown History gram/118 mL enema (Fleet Enema) acetaminophen 325 mg tablet 325 mg PO BEDTIME 10/03/22 10/03/22 Unknown History (Tylenol) acetic acid 0.25 % irrigation 50 ml irrigation TUTHSA@2100 10/03/22 10/03/22 Unknown History solution Physical Exam Vital Signs: Vital Signs: Last Vital Signs Temp 97.6 F 10/03/22 10:28 Pulse 48 L 10/03/22 10:28 Resp 13 10/03/22 10:28 BP 116/66 10/03/22 10:28 Pulse Ox 99 10/03/22 10:28 O2 Del Method Room Air 10/03/22 10:28 BMI result Body Mass Index 22.0 Const: Other: no verbal output although awake General: comfortable and no acute distress Resp: Effort & Inspection: normal respiratory effort Cardio: Rate: regular rate GI: Other: suprapubic tube in place ;abdomen does not appear distended Palpation (GI): Soft to palpation, not firm, nontender, no guarding and not rigid Results Labs 10/03/22 09:50 10/03/22 09:50 Labs: Abnormal lab results 10/03/22 10/03/22 10/03/22 Range/Units 09:50 09:50 09:50 WBC 4.6 L (4.8-10.8) X10*3/uL RBC 3.45 L (4.60-5.80) X10*6/uL Hgb 11.4 L (14.0-18.0) g/dl Hct 33.6 L (42.0-52.0) % MPV 9.3 L (9.4-12.4) fL Eos % (Auto) 4.6 H (0-4) % ESR 34 H (0-15) MM/HR Chloride 109 H (96-108) mmol/L Anion Gap 11 L (12-20) BUN 23 H (9-16) mg/dL C-Reactive Protein 0.80 H (< or = 0.50) mg/dL Total Protein 6.4 L (6.5-8.0) g/dL Albumin 3.1 L (3.5-5.0) g/dL Urine Protein (Neg-Trace) mg/dL Urine Blood (Negative) Urine Nitrite (Negative) Ur Leukocyte Esterase (Negative) Urine RBC (0-2) /HPF Urine WBC (0-5) /HPF 10/03/22 Range/Units 10:48 WBC (4.8-10.8) X10*3/uL RBC (4.60-5.80) X10*6/uL Hgb (14.0-18.0) g/dl Hct (42.0-52.0) % MPV (9.4-12.4) fL Eos % (Auto) (0-4) % ESR (0-15) MM/HR Chloride (96-108) mmol/L Anion Gap (12-20) BUN (9-16) mg/dL C-Reactive Protein (< or = 0.50) mg/dL Total Protein (6.5-8.0) g/dL Albumin (3.5-5.0) g/dL Urine Protein 100 (2+) H (Neg-Trace) mg/dL Urine Blood Large (3+) H (Negative) Urine Nitrite Positive H (Negative) Ur Leukocyte Esterase Large (3+) H (Negative) Urine RBC >20 H (0-2) /HPF Urine WBC >50 H (0-5) /HPF Short CBC 10/03/22 Range/Units 09:50 WBC 4.6 L (4.8-10.8) X10*3/uL Hgb 11.4 L (14.0-18.0) g/dl Hct 33.6 L (42.0-52.0) % Plt Count 160 D (160-400) X10*3/uL BMP 10/03/22 09:50 Sodium 143 Potassium 3.5 Chloride 109 H Carbon Dioxide 27 BUN 23 H Creatinine 0.95 Calcium 9.0 Liver Function 10/03/22 Range/Units 09:50 Total Bilirubin 0.7 (0.0-1.0) mg/dL Direct Bilirubin 0.3 (0.0-0.5) mg/dL AST 21 (5-37) U/L ALT 27 (0-40) U/L Alkaline Phosphatase 95 (39-117) U/L Albumin 3.1 L (3.5-5.0) g/dL Urine 10/03/22 Range/Units 10:48 Urine Color Yellow Urine Appearance Turbid Urine pH 6.0 (5.0-9.0) Ur Specific [place] 1.015 (1.005-1.025) Urine Protein 100 (2+) H (Neg-Trace) mg/dL Urine Glucose (UA) Negative (Negative) mg/dL All other labs normal. Laboratory Results WBC 4.6 X10*3/uL (4.8-10.8) L 10/03/22 09:50 RBC 3.45 X10*6/uL (4.60-5.80) L 10/03/22 09:50 Hgb 11.4 g/dl (14.0-18.0) L 10/03/22 09:50 Hct 33.6 % (42.0-52.0) L 10/03/22 09:50 MCV 97.4 fL (80.0-98.0) 10/03/22 09:50 MCH 33.0 pg (27.0-33.0) 10/03/22 09:50 MCHC 33.9 g/dl (31.0-36.0) 10/03/22 09:50 RDW 13.3 % (11.0-16.0) 10/03/22 09:50 Plt Count 160 X10*3/uL (160-400) D 10/03/22 09:50 MPV 9.3 fL (9.4-12.4) L 10/03/22 09:50 Immature Gran % (Auto) 0.2 % (0.0-0.4) 10/03/22 09:50 Neut % (Auto) 59.4 % (45-73) 10/03/22 09:50 Lymph % (Auto) 27.4 % (20-40) 10/03/22 09:50 [place] % (Auto) 8.0 % (2-11) 10/03/22 09:50 Eos % (Auto) 4.6 % (0-4) H 10/03/22 09:50 Baso % (Auto) 0.4 % (0-2) 10/03/22 09:50 Lymph # (Auto) 1.3 X10*3/uL (1.2-4.9) 10/03/22 09:50 [place] # (Auto) 0.4 X10*3/uL (0.1-1.2) 10/03/22 09:50 Eos # (Auto) 0.2 X10*3/uL (0.0-0.4) 10/03/22 09:50 Baso # (Auto) 0.0 X10*3/uL (0.0-0.2) 10/03/22 09:50 Abs Immat Gran (auto) 0.01 X10*3/uL (0.00-0.03) 10/03/22 09:50 Absolute Neuts (auto) 2.7 x10*3/uL (2.0-8.3) 10/03/22 09:50 Absolute Nucleated RBC 0.000 X10*3/uL (0.0-0.012) 10/03/22 09:50 Nucleated RBC % (auto) 0.0 /100WBC (0.0-0.2) 10/03/22 09:50 ESR 34 MM/HR (0-15) H 10/03/22 09:50 Sodium 143 mmol/L (135-145) 10/03/22 09:50 Potassium 3.5 mmol/L (3.3-5.1) 10/03/22 09:50 Chloride 109 mmol/L (96-108) H 10/03/22 09:50 Carbon Dioxide 27 mmol/L (22-29) 10/03/22 09:50 Anion Gap 11 (12-20) L 10/03/22 09:50 BUN 23 mg/dL (9-16) H 10/03/22 09:50 Creatinine 0.95 mg/dL (0.5-1.4) 10/03/22 09:50 Estim Creat Clear Calc 73.0 10/03/22 09:50 Estimated GFR > 60 10/03/22 09:50 Random Glucose 93 mg/dL (60-115) 10/03/22 09:50 Calcium 9.0 mg/dL (8.4-10.2) 10/03/22 09:50 Total Bilirubin 0.7 mg/dL (0.0-1.0) 10/03/22 09:50 Direct Bilirubin 0.3 mg/dL (0.0-0.5) 10/03/22 09:50 AST 21 U/L (5-37) 10/03/22 09:50 ALT 27 U/L (0-40) 10/03/22 09:50 Alkaline Phosphatase 95 U/L (39-117) 10/03/22 09:50 C-Reactive Protein 0.80 mg/dL (< or = 0.50) H 10/03/22 09:50 Total Protein 6.4 g/dL (6.5-8.0) L 10/03/22 09:50 Albumin 3.1 g/dL (3.5-5.0) L 10/03/22 09:50 Urine Color Yellow 10/03/22 10:48 Urine Appearance Turbid 10/03/22 10:48 Urine pH 6.0 (5.0-9.0) 10/03/22 10:48 Ur Specific [place] 1.015 (1.005-1.025) 10/03/22 10:48 Urine Protein 100 (2+) mg/dL (Neg-Trace) H 10/03/22 10:48 Urine Glucose (UA) Negative mg/dL (Negative) 10/03/22 10:48 Urine Ketones Negative mg/dL (Negative) 10/03/22 10:48 Urine Blood Large (3+) (Negative) H 10/03/22 10:48 Urine Nitrite Positive (Negative) H 10/03/22 10:48 Ur Leukocyte Esterase Large (3+) (Negative) H 10/03/22 10:48 Urine RBC >20 /HPF (0-2) H 10/03/22 10:48 Urine WBC >50 /HPF (0-5) H 10/03/22 10:48 Ur Squamous Epith Cells 0-2 /HPF (0-2) 10/03/22 10:48 Urine Bacteria 4+ (None Seen) 10/03/22 10:48 Hyaline Casts 3-5 /LPF (0-2) 10/03/22 10:48 Impressions Abdomen X-Ray 10/03/22 10:17 IMPRESSION: Walker catheter in the pelvis presumably representing suprapubic tube. Severe constipation. Dilated small and large bowel, question ileus versus distal large bowel obstruction. Abdomen/Pelvis CT 10/03/22 12:42 IMPRESSION: Severe constipation. Question stercoral colitis related to chronic obstruction. This may be causing mild secondary large bowel obstruction. Sacral decubitus ulcer and question mild osteomyelitis of the distal sacrum and coccyx. Suprapubic tube in the bladder in satisfactory position. Bilateral renal stones, right greater than left. Fleischner guidelines were followed. Assessment and Plan (1) Chronic constipation: Status: Inactive I have been consulted because of a CT scan finding showing diffuse colonic dilatation with a lot of stool volume suggestion of stercoral colitis. Review of his old CT scans actually reveal the same picture. This appears to be more of a chronic distension due to his constipation. Currently, he does not have any abdominal pain or tenderness. He does not have any nausea or vomiting He may benefit from further workup with a barium enema or even a flexible sigmoidoscopy. it does not appear that he will require any surgical intervention at this. (2) Decubitus ulcer of sacral area: Status: Inactive He has an open wound which appears to be clean without any significant cellulitis. The open wound may explain note of some air within the soft tissue in this area. Time Spent With Patient Time: Total time managing care of this patient today ____ minutes. Procedures Date of Service Date of Service: 10/16/22
[2022-10-03 15:34] VITALS: BP 101/56; PULSE 53; RESP 16; TEMP 37.1; O2SAT 92
--- NOTE | 2022-10-03 16:16 | P.HPHOSP_ITS ---
History of Present Illness Date of Service: 10/03/22 Chief Complaint: Bleeding from urostomy, constipation A 67 years old male with PMH of CVA on Xarelto, HTN, HLD, BPH on suprapubic catheter who [facility]ptial [facility] for evaluation of bleeding from suprapubic catheter. The patient is unable to provide much of history so it was obtained from [facility] and ED records. He is on Xarelto at baseline and suspected pulling and manipulation of it. still passing urine though. CT scan of abd showed evidence of large stool burden and constipation. evaluated by surgeon who felt it is related to constipation with no obstruction. Admitted for further eval and treatment. [facility] Medical History C. difficile diarrhea Cerebrovascular accident (CVA) involving left cerebral hemisphere Chronic constipation COVID-19 Essential hypertension Hemiplegia of right dominant side due to acute cerebrovascular disease High cholesterol History of CVA (cerebrovascular accident) HTN (hypertension) HTN (hypertension) Osteomyelitis Paroxysmal atrial fibrillation Septic shock Stroke UTI (urinary tract infection) due to urinary indwelling Walker catheter Family History Father No problems noted. Mother No problems noted. Surgical History No pertinent past surgical history Social History Household Members: Other Household Members Other:: resides at [place], [place] ([phone]) Housing: [employer]f Are you a primary primary care sales representative to a significant other at home: No Do you presently have visiting nurse or other home services: No Unable to assess alcohol history related to: Unknown Alcohol intake: unknown Patient Tobacco Use Status: Tobacco use Unknown Use of substances other than those prescribed or required for medical reasons: Unknown Currently Displaying Signs/Symptoms of Drug Intoxication Withdrawal: No Advance Directives: Yes Advance Directives on File: Yes Advance Directives Date on File: 07/25/21 Do you have thoughts of harming others: Vague Do you have a plan to hurt others: No Plan Nutrition Risks: No Nutritional Risk service: No Current occupational status: disabled Meds Allergies Allergy/AdvReac Type Severity Reaction Status Date / Time No Known Allergies Allergy Verified 10/03/22 08:35 [No Known Allergies*] Active Medications: Current Medications Acetaminophen (Acetaminophen 325 Mg Tablet) 650 mg PO Q4H PRN PRN Reason: fever/pain Acetaminophen (Acetaminophen 325 Mg Tablet) 325 mg PO BEDTIME [facility] Amlodipine Besylate (Amlodipine Besylate 5 Mg Tablet) 5 mg PO DAILY [facility]; Protocol Ascorbic Acid (Ascorbic Acid 500 Mg Tablet) 1,000 mg PO DAILY [facility] Atorvastatin Calcium (Atorvastatin Calcium 80 Mg Tablet) 80 mg PO DAILY [facility] Bisacodyl (Bisacodyl 10 Mg Supp.Rect) 10 mg AL DAILY PRN PRN Reason: Constipation Gabapentin (Gabapentin 300 Mg Capsule) 300 mg PO BEDTIME [facility] Losartan Potassium (Losartan Potassium 50 Mg Tablet) 100 mg PO DAILY [facility]; Protocol Magnesium Hydroxide (Milk Of Magnesia 30 Ml Oral.Susp) 30 ml PO DAILY PRN PRN Reason: Constipation Methenamine Hippurate (Methenamine Hippurate 1 Gm Tablet) 1 gm PO daily [facility] Naloxone HCl (Naloxone Hcl Nasal 4 Mg [place]) 4 mg NOSTRILALT ONCE PRN PRN Reason: Opioid Overdose Non-Formulary Medication (Levetiracetam) 2.5 ml PO BID [facility] Non-Formulary Medication (Lidocaine) 1 patch TOPICAL DAILY [facility] Ondansetron HCl (Ondansetron Hcl 4 Mg/2 Ml Vial) 4 mg IVPUSH Q8H PRN PRN Reason: Nausea and Vomiting Pharmacy Consult (Consult Rx Perform Med Rec) 1 each MISCELLANE ONCE PRN PRN Reason: Consult order Polyethylene Glycol (Polyethylene Glycol 3350 17 Gm Powd.Pack) 17 gm PO BID [facility] Potassium Chloride (Potassium Chloride Er 20 Meq Tab.Er.Prt) 20 meq PO DAILY [facility] Senna (Sennosides 8.6 Mg Tablet) 17.2 mg PO BID [facility] Sodium Biphosphate/Sodium Phosphate (Sodium Phosphate,Bertie-Dibasic 133 Ml Enema) 118 ml AL DAILY PRN PRN Reason: Constipation Sodium Biphosphate/Sodium Phosphate (Sodium Phosphate,Bertie-Dibasic 133 Ml Enema) 133 ml AL ONCE ONE Stop: 10/03/22 16:00 Sodium Chloride (0.9 % Sodium Chloride Flush 3 Ml Syringe) 3 ml IVFLUSH QSHIFT [facility] Tamsulosin HCl (Tamsulosin Hcl 0.4 Mg Capsule) 0.4 mg PO BEDTIME [facility] Home Medications Medication Instructions Recorded Confirmed Last Taken Type amlodipine 5 mg tablet 5 mg PO DAILY 06/20/20 10/03/22 02/14/22 History acetaminophen 325 mg tablet 650 mg PO Q4H PRN fever/pain 02/16/21 10/03/22 Unknown History bisacodyl 10 mg rectal suppository 10 mg AL DAILY PRN Constipation 02/16/21 10/03/22 Unknown History calcium carbonate 600 mg-vitamin 1 tab PO BID 02/16/21 10/03/22 02/14/22 History D3 5 mcg (200 unit) tablet lidocaine 5 % topical patch 1 patch topical DAILY 02/16/21 10/03/22 02/14/22 His tory magnesium hydroxide 400 mg/5 mL 30 ml PO DAILY PRN Constipation 02/16/21 10/03/22 Unknown History oral suspension (Milk of Magnesia) levetiracetam 100 mg/mL oral 2.5 ml PO BID 02/26/21 10/03/22 02/14/22 History solution naloxone 4 mg/actuation nasal spray 4 mg intranasal ONCE PRN Opioid 02/26/21 10/03/22 Unknown History Overdose potassium chloride 20 mEq 20 meq PO DAILY 06/23/21 10/03/22 02/14/22 History tablet,extended release(part/cryst) atorvastatin 80 mg tablet 80 mg PO DAILY 01/26/22 10/03/22 02/14/22 History rivaroxaban 20 mg tablet (Xarelto) 20 mg PO DAILY@1700 01/26/22 10/03/22 02/14/22 History magnesium citrate 150 ml PO DAILY PRN Constipation 02/15/22 10/03/22 Unknown History oxycodone 5 mg tablet 5 mg PO Q6H PRN Pain 02/15/22 10/03/22 Unknown History sodium phosphates 19 gram-7 118 ml AL DAILY PRN Constipation 02/15/22 10/03/22 Unknown History gram/118 mL enema (Fleet Enema) acetaminophen 325 mg tablet 325 mg PO BEDTIME 10/03/22 10/03/22 Unknown History (Tylenol) acetic acid 0.25 % irrigation 50 ml irrigation TUTHSA@2100 10/03/22 10/03/22 Unknown History solution Physical Exam Vital Signs and Narrative: Vital Signs: Last Vital Signs Temp 98.8 F 10/03/22 15:34 Pulse 53 10/03/22 15:34 Resp 16 10/03/22 15:34 BP 101/56 L 10/03/22 15:34 Pulse Ox 92 10/03/22 15:34 O2 Del Method Room Air 10/03/22 15:34 BMI result Body Mass Index 22.0 Const: Other: Constitutional : Awake, interactive, not in distress Neck : Normal inspection, Supple Cardiovascular : RRR, no JVP, no lower extremity edema Respiratory : good bilateral air entry, no crackles, wheezes or rhonchi Gastrointestinal: soft, lax, Normal bowel sounds, Non tender Skin : Warm, Dry, stage 3 decubetus ulcer which is not infection but oozing blood Urology: frial suprapubic cath, no active bleeding now.? dry blood noted . no tenderness. No warmth or surrounding erythema Neurological : non-verbal, paraplegic , alert : Other: Results Labs 10/03/22 09:50 10/03/22 09:50 Labs: Laboratory Results - last 24 hr 10/03/22 10/03/22 10/03/22 09:50 09:50 09:50 MCV 97.4 MCH 33.0 MCHC 33.9 RDW 13.3 Plt Count 160 D MPV 9.3 L Immature Gran % (Auto) 0.2 Neut % (Auto) 59.4 Lymph % (Auto) 27.4 [place] % (Auto) 8.0 Eos % (Auto) 4.6 H Baso % (Auto) 0.4 Lymph # (Auto) 1.3 [place] # (Auto) 0.4 Eos # (Auto) 0.2 Baso # (Auto) 0.0 Abs Immat Gran (auto) 0.01 Absolute Neuts (auto) 2.7 Absolute Nucleated RBC 0.000 Nucleated RBC % (auto) 0.0 ESR 34 H Anion Gap 11 L Estim Creat Clear Calc 73.0 Estimated GFR > 60 Random Glucose 93 Lactic Acid Calcium 9.0 Total Bilirubin 0.7 Direct Bilirubin 0.3 AST 21 ALT 27 Alkaline Phosphatase 95 C-Reactive Protein 0.80 H Total Protein 6.4 L Albumin 3.1 L Urine Color Urine Appearance Urine pH Ur Specific [place] Urine Protein Urine Glucose (UA) Urine Ketones Urine Blood Urine Nitrite Ur Leukocyte Esterase Urine RBC Urine WBC Ur Squamous Epith Cells Urine Bacteria Hyaline Casts 10/03/22 10/03/22 10:48 14:42 MCV MCH MCHC RDW Plt Count MPV Immature Gran % (Auto) Neut % (Auto) Lymph % (Auto) [place] % (Auto) Eos % (Auto) Baso % (Auto) Lymph # (Auto) [place] # (Auto) Eos # (Auto) Baso # (Auto) Abs Immat Gran (auto) Absolute Neuts (auto) Absolute Nucleated RBC Nucleated RBC % (auto) ESR Anion Gap Estim Creat Clear Calc Estimated GFR Random Glucose Lactic Acid 1.0 Calcium Total Bilirubin Direct Bilirubin AST ALT Alkaline Phosphatase C-Reactive Protein Total Protein Albumin Urine Color Yellow Urine Appearance Turbid Urine pH 6.0 Ur Specific [place] 1.015 Urine Protein 100 (2+) H Urine Glucose (UA) Negative Urine Ketones Negative Urine Blood Large (3+) H Urine Nitrite Positive H Ur Leukocyte Esterase Large (3+) H Urine RBC >20 H Urine WBC >50 H Ur Squamous Epith Cells 0-2 Urine Bacteria 4+ Hyaline Casts 3-5 Imaging Radiologist's Impressions: Impressions Abdomen X-Ray 10/03/22 10:17 IMPRESSION: Walker catheter in the pelvis presumably representing suprapubic tube. Severe constipation. Dilated small and large bowel, question ileus versus distal large bowel obstruction. Abdomen/Pelvis CT 10/03/22 12:42 IMPRESSION: Severe constipation. Question stercoral colitis related to chronic obstruction. This may be causing mild secondary large bowel obstruction. Sacral decubitus ulcer and question mild osteomyelitis of the distal sacrum and coccyx. Suprapubic tube in the bladder in satisfactory position. Bilateral renal stones, right greater than left. Fleischner guidelines were followed. Assessment and Plan (1) Chronic constipation: Status: Acute (2) Decubitus ulcer of sacral area: Status: Acute Plan A 67 years old male with PMH of CVA on Xarelto, HTN, HLD, BPH on suprapubic catheter who [facility] for evaluation of bleeding from suprapubic catheter. Severe constiipation CT concerning for possible obstruction; ruled out by surgery Start with Enema Miralax, Senna Suprapubic cath bleeding likely from manipulation seems functional Hold xarelto Urology eval Decubetus ulcer no signs of infection Wound care eval dressing air-mattress UTI pending cultures Ceftriaxone for now HTN Continue home meds Hx CVA Statin, hold Xarelto for bleeding BPH Continue Tamsulosin DVT PPx SCDs The patient will need 2 overnight hospital stay for Time Spent With Patient Time: Total time managing care of this patient today ____ minutes. Quality Stroke Does the patient have a stroke diagnosis?: No VTE Prior VTE?: No VTE Risk Level:: Medical - moderate - high VTE Device Contraindication: Treatment Not Indicated VTE Drug Contraindication: N/A - Med Ordered
[2022-10-03] MEDS: Sodium Phosphate,Mono-Dibasic 133 ML ENEMA PR (17:35)
[2022-10-03] MEDS: Sennosides 8.6 MG TABLET 17.2 MG PO ×2 (17:35→22:17)
[2022-10-03] MEDS: polyethylene glycoL 3350 17 GM POWD.PACK PO ×2 (17:35→22:17)
[2022-10-03] MEDS: 0.9 % Sodium Chloride Flush 3 ML SYRINGE IVFLUSH ×2 (17:36→22:18)
[2022-10-03 20:10] VITALS: BP 128/72; PULSE 76; RESP 18; TEMP 36.6; O2SAT 97
--- NOTE | 2022-10-03 20:14 | PC.NURSE ---
this rn assumed care of pt @1900. this rn gave report to brandi sexton. registered respiratory therapist assisted pt with eating dinner meal
--- NOTE | 2022-10-03 20:23 | MHC.EDTECH ---
Patient feed dinner
[2022-10-03 21:00] VITALS: BP 119/78; PULSE 96; RESP 20; TEMP 36.7; O2SAT 96
[2022-10-03 22:00] VITALS: BMI 22.0
[2022-10-03] MEDS: levETIRAcetam Oral Soln 500 MG/5 ML 250 MG PO (22:16)
[2022-10-03] MEDS: Gabapentin 300 MG CAPSULE PO (22:17)
[2022-10-03] MEDS: Tamsulosin HCL 0.4 MG CAPSULE PO (22:17)
[2022-10-03] MEDS: Acetaminophen 325 MG TABLET PO (22:17)
[2022-10-04 04:00] VITALS: BP 99/63; PULSE 58; RESP 16; TEMP 36.2; O2SAT 97
[2022-10-04 07:19] LABS: Hematocrit 31.8 % (42.0-52.0); Hemoglobin 10.7 g/dl (14.0-18.0); Mean Corpuscular HGB Conc 33.6 g/dl (31.0-36.0); Mean Corpuscular Hemoglobin 32.3 pg (27.0-33.0); Mean Corpuscular Volume 96.1 fL (80.0-98.0); Mean Platelet Volume 9.4 fL (9.4-12.4); Platelet Count 177 X10*3/uL (160-400); Red Blood Count 3.31 X10*6/uL (4.60-5.80); Red Cell Distribution Width 13.4 % (11.0-16.0); White Blood Count 4.7 X10*3/uL (4.8-10.8)
[2022-10-04 07:40] VITALS: BP 103/63; PULSE 50; RESP 17; TEMP 36.6; O2SAT 94
[2022-10-04 07:48] LABS: Anion Gap 9 (12-20); Blood Urea Nitrogen 24 mg/dL (9-16); Calcium 8.8 mg/dL (8.4-10.2); Carbon Dioxide 27 mmol/L (22-29); Chloride 109 mmol/L (96-108); Estimated Glomerular Filt Rate > 60; Glucose Random 91 mg/dL (60-115); Potassium 3.2 mmol/L (3.3-5.1); Sodium 142 mmol/L (135-145)
[2022-10-04] MEDS: Sennosides 8.6 MG TABLET 17.2 MG PO ×2 (09:02→20:26)
[2022-10-04] MEDS: Ascorbic Acid 500 MG TABLET 1000 MG PO (09:02)
[2022-10-04] MEDS: amLODIPine Besylate 5 MG TABLET PO (09:02)
[2022-10-04] MEDS: Losartan Potassium 50 MG TABLET 100 MG PO (09:02)
[2022-10-04] MEDS: polyethylene glycoL 3350 17 GM POWD.PACK PO ×2 (09:02→20:27)
[2022-10-04] MEDS: Potassium Chloride ER 20 MEQ TAB.ER.PRT PO (09:02)
[2022-10-04] MEDS: Lidocaine 4 % Patch ADH..PATCH 1 PATCH TRANSDERMA (09:02)
[2022-10-04] MEDS: Atorvastatin Calcium 80 MG TABLET PO (09:02)
[2022-10-04] MEDS: levETIRAcetam Oral Soln 500 MG/5 ML 250 MG PO ×2 (09:02→20:26)
[2022-10-04] MEDS: Methenamine Hippurate 1 GM TABLET PO (09:02)
[2022-10-04] MEDS: 0.9 % Sodium Chloride Flush 3 ML SYRINGE IVFLUSH ×3 (09:03→20:26)
--- NOTE | 2022-10-04 09:13 | MHC.CM.PN ---
Patient is unable to provide his history; CM will mail original IMM to Son/HCP/Al and a copy has been placed on the chart. Plan is to return to LT ([facility]) @ [facility]. CM has initiated and will follow for dc planning.
--- NOTE | 2022-10-04 11:33 | HO.PM.IMPN ---
Subjective Subjective Date of Service: 10/04/22 Interval History: Seen and evaluated this morning non-verbal but looks comfortable No fever reported no bleeding from the catheter Review of Systems Review of Systems: Yes Unobtainable due to mental condition Physical Exam Vital Signs: Vital Signs: Last Vital Signs Temp 98 F 10/04/22 07:40 Pulse 50 10/04/22 07:40 Resp 17 10/04/22 07:40 BP 103/63 10/04/22 07:40 Pulse Ox 94 10/04/22 07:40 O2 Del Method Room Air 10/04/22 07:40 BMI result Body Mass Index 22.0 Const: Other: Constitutional : Awake, interactive, not in distress Neck : Normal inspection, Supple Cardiovascular : RRR, no JVP, no lower extremity edema Respiratory : good bilateral air entry, no crackles, wheezes or rhonchi Gastrointestinal: soft, lax, Normal bowel sounds, Non tender Skin : Warm, Dry, stage 3 decubetus ulcer which is not infection but oozing blood Urology: stable suprapubic cath w no active bleeding or blood noted . no tenderness. No warmth or surrounding erythema Neurological : non-verbal, paraplegic , alert : Other: Objective Data Active Medications Acetaminophen (Acetaminophen 325 Mg Tablet) 650 mg PO Q4H PRN PRN Reason: fever/pain Acetaminophen (Acetaminophen 325 Mg Tablet) 325 mg PO BEDTIME [facility] Last Admin: 10/03/22 22:17 Dose: 325 mg Documented By: LINNETTE Amlodipine Besylate (Amlodipine Besylate 5 Mg Tablet) 5 mg PO DAILY [facility]; Protocol Last Admin: 10/04/22 09:02 Dose: 5 mg Documented By: FELICE Ascorbic Acid (Ascorbic Acid 500 Mg Tablet) 1,000 mg PO DAILY [facility] Last Admin: 10/04/22 09:02 Dose: 1,000 mg Documented By: FELICE Atorvastatin Calcium (Atorvastatin Calcium 80 Mg Tablet) 80 mg PO DAILY [facility] Last Admin: 10/04/22 09:02 Dose: 80 mg Documented By: FELICE Bisacodyl (Bisacodyl 10 Mg Supp.Rect) 10 mg [place] DAILY PRN PRN Reason: Constipation Gabapentin (Gabapentin 300 Mg Capsule) 300 mg PO BEDTIME [facility] Last Admin: 10/03/22 22:17 Dose: 300 mg Documented By: LINNETTE Ceftriaxone Sodium 1 gm/ (Sodium Chloride) 50 mls @ 100 mls/hr IV Q24H [facility] Levetiracetam (Levetiracetam Oral Soln 500 Mg/5 Ml) 250 mg PO BID [facility] Last Admin: 10/04/22 09:02 Dose: 250 mg Documented By: FELICE Lidocaine (Lidocaine 4 % Patch Adh..Patch) 1 patch TRANSDERMA DAILY [facility] Last Admin: 10/04/22 09:02 Dose: 1 patch Documented By: FELICE Losartan Potassium (Losartan Potassium 50 Mg Tablet) 100 mg PO DAILY [facility]; Protocol Last Admin: 10/04/22 09:02 Dose: 100 mg Documented By: FELICE Magnesium Hydroxide (Milk Of Magnesia 30 Ml Oral.Susp) 30 ml PO DAILY PRN PRN Reason: Constipation Methenamine Hippurate (Methenamine Hippurate 1 Gm Tablet) 1 gm PO DAILY [facility] Last Admin: 10/04/22 09:02 Dose: 1 gm Documented By: FELICE Naloxone HCl (Naloxone Hcl Nasal 4 Mg [place]) 4 mg NOSTRILALT ONCE PRN PRN Reason: Opioid Overdose Ondansetron HCl (Ondansetron Hcl 4 Mg/2 Ml Vial) 4 mg IVPUSH Q8H PRN PRN Reason: Nausea and Vomiting Pharmacy Consult (Consult Rx Perform Med Rec) 1 each MISCELLANE ONCE PRN PRN Reason: Consult order Polyethylene Glycol (Polyethylene Glycol 3350 17 Gm Powd.Pack) 17 gm PO BID [facility] Last Admin: 10/04/22 09:02 Dose: 17 gm Documented By: FELICE Potassium Chloride (Potassium Chloride Er 20 Meq Tab.Er.Prt) 20 meq PO DAILY [facility] Last Admin: 10/04/22 09:02 Dose: 20 meq Documented By: FELICE Rivaroxaban (Rivaroxaban 20 Mg Tablet) 20 mg PO DAILY@1700 [facility] Senna (Sennosides 8.6 Mg Tablet) 17.2 mg PO BID [facility] Last Admin: 10/04/22 09:02 Dose: 17.2 mg Documented By: FELICE Sodium Biphosphate/Sodium Phosphate (Sodium Phosphate,[place]-Dibasic 133 Ml Enema) 133 ml [place] DAILY PRN PRN Reason: Constipation Sodium Chloride (0.9 % Sodium Chloride Flush 3 Ml Syringe) 3 ml IVFLUSH QSHIFT [facility] Last Admin: 10/04/22 09:03 Dose: 3 ml Documented By: FELICE Tamsulosin HCl (Tamsulosin Hcl 0.4 Mg Capsule) 0.4 mg PO BEDTIME [facility] Last Admin: 10/03/22 22:17 Dose: 0.4 mg Documented By: LINNETTE Triamcinolone Acetonide (Triamcinolone Acet 0.5 % Oint 15 Gm Tube) 1 appl TOPICAL BID [facility] Last Admin: 10/03/22 22:18 Dose: Not Given Documented By: LINNETTE Non-Admin Reason: Med Not Available Labs 10/04/22 07:05 10/04/22 07:05 Labs: Laboratory Results - last 24 hr 10/03/22 10/03/22 10/03/22 09:50 09:50 14:42 MCV MCH MCHC RDW Plt Count MPV Absolute Nucleated RBC Nucleated RBC % (auto) ESR 34 H Anion Gap Estim Creat Clear Calc Estimated GFR Random Glucose Lactic Acid 1.0 Calcium C-Reactive Protein 0.80 H 10/04/22 10/04/22 07:05 07:05 MCV 96.1 MCH 32.3 MCHC 33.6 RDW 13.4 Plt Count 177 MPV 9.4 Absolute Nucleated RBC 0.000 Nucleated RBC % (auto) 0.0 ESR Anion Gap 9 L Estim Creat Clear Calc 68.0 Estimated GFR > 60 Random Glucose 91 Lactic Acid Calcium 8.8 C-Reactive Protein Assessment and Plan (1) Decubitus ulcer of sacral area: Status: Acute (2) Large bowel obstruction: Status: Acute (3) Complicated urinary tract infection: Status: Acute (4) Chronic constipation: Status: Acute Plan A 67 years old male with PMH of CVA on Xarelto, HTN, HLD, BPH on suprapubic catheter who presents to the hosptial from snf for evaluation of bleeding from suprapubic catheter. Severe constiipation CT concerning for possible obstruction; ruled out by surgery Continue with Enema Miralax, Senna Suprapubic cath bleeding likely from manipulation, changed and secured, no bleeding functional restart xarelto Decubetus ulcer no signs of infection Wound care nurse eval dressing air-mattress chronic suprapubic Catheter associated UTI pending cultures Ceftriaxone for now HTN Continue home meds Hx CVA Statin, hold Xarelto for bleeding BPH Continue Tamsulosin DVT PPx SCDs The patient will need overnight hospital stay for constipation, pending cultures and monitoring bleeding after restarting Xarelto Time Spent With Patient Time: Total time managing care of this patient today ____ minutes. Quality Stroke Does the patient have a stroke diagnosis?: No VTE Prior VTE?: No VTE Risk Level:: Medical - moderate - high VTE Device Contraindication: Treatment Not Indicated VTE Drug Contraindication: N/A - Med Ordered
[2022-10-04] MEDS: cefTRIAXone sodium 1 GM in 0.9 % Sodium Chloride 50 ML IV (11:41)
[2022-10-04 14:50] VITALS: BP 99/58; PULSE 57; RESP 17; TEMP 36.3; O2SAT 97
[2022-10-04] MEDS: Rivaroxaban 20 MG TABLET PO (17:14)
[2022-10-04] MEDS: Sodium Phosphate,Mono-Dibasic 133 ML ENEMA PR (17:15)
[2022-10-04 20:00] VITALS: BP 94/62; PULSE 56; RESP 16; TEMP 36.4; O2SAT 97
[2022-10-04] MEDS: Tamsulosin HCL 0.4 MG CAPSULE PO (20:25)
[2022-10-04] MEDS: Acetaminophen 325 MG TABLET PO (20:26)
[2022-10-04] MEDS: Gabapentin 300 MG CAPSULE PO (20:26)
[2022-10-04] MEDS: Triamcinolone Acet 0.5 % Oint 15 GM TUBE 1 APPL TOPICAL (20:34)
[2022-10-05] VITALS (9 sets, daily range): BP systolic 80–158; BP diastolic 16–94; PULSE 56–82; RESP 16–20; TEMP 36–36.6; O2SAT 96–98; BMI 22.0
[2022-10-05] MEDS: Lactated Ringers 1,000 ML 999 ML IV ×2 (05:25→06:10)
--- NOTE | 2022-10-05 05:59 | PM.EVENT ---
Event Note Date of Service: 10/05/22 Event Note: Patient hypotensive with no acute complaint, will receive 2 L of fluid, will obtain basic labs Time Spent With Patient Time: Total time managing care of this patient today ____ minutes.
[2022-10-05 07:21] LABS: MANUAL DIFF FLAG NO
[2022-10-05 07:26] LABS: Basophils Percent Auto 0.2 % (0-2); Eosinophils Absolute Auto 0.1 X10*3/uL (0.0-0.4); Eosinophils Percent Auto 2.4 % (0-4); Hematocrit 30.4 % (42.0-52.0); Hematocrit 30.7 % (42.0-52.0); Hemoglobin 10.3 g/dl (14.0-18.0); Imm Gran Abs Auto 0.01 X10*3/uL (0.00-0.03); Imm Gran Pct Auto 0.2 % (0.0-0.4); Lymphocytes Absolute Auto 1.4 X10*3/uL (1.2-4.9); Lymphocytes Percent Auto 27.8 % (20-40); Mean Corpuscular HGB Conc 33.6 g/dl (31.0-36.0); Mean Corpuscular HGB Conc 33.9 g/dl (31.0-36.0); Mean Corpuscular Hemoglobin 32.9 pg (27.0-33.0); Mean Corpuscular Hemoglobin 33.1 pg (27.0-33.0); Mean Corpuscular Volume 97.7 fL (80.0-98.0); Mean Corpuscular Volume 98.1 fL (80.0-98.0); Mean Platelet Volume 9.8 fL (9.4-12.4); Mean Platelet Volume 9.9 fL (9.4-12.4); Monocytes Absolute Auto 0.5 X10*3/uL (0.1-1.2); Neutrophils Absolute Auto 3.1 x10*3/uL (2.0-8.3); Neutrophils Percent Auto 60.4 % (45-73); Platelet Count 148 X10*3/uL (160-400); Platelet Count 153 X10*3/uL (160-400); Red Blood Count 3.11 X10*6/uL (4.60-5.80); Red Blood Count 3.13 X10*6/uL (4.60-5.80); Red Cell Distribution Width 13.6 % (11.0-16.0); Red Cell Distribution Width 13.7 % (11.0-16.0); White Blood Count 5.1 X10*3/uL (4.8-10.8); White Blood Count 5.2 X10*3/uL (4.8-10.8)
[2022-10-05 08:19] LABS: Lactic Acid 0.9 mmol/L (0.5-2.0)
[2022-10-05 09:42] LABS: Anion Gap 11 (12-20); Blood Urea Nitrogen 29 mg/dL (9-16); Calcium 8.8 mg/dL (8.4-10.2); Carbon Dioxide 24 mmol/L (22-29); Chloride 110 mmol/L (96-108); Creatinine Clr Calc Pharmacy 52.9; Estimated Glomerular Filt Rate 54; Glucose Random 95 mg/dL (60-115); Potassium 3.2 mmol/L (3.3-5.1); Sodium 142 mmol/L (135-145)
[2022-10-05] MEDS: polyethylene glycoL 3350 17 GM POWD.PACK PO (09:46)
[2022-10-05] MEDS: Sennosides 8.6 MG TABLET 17.2 MG PO ×2 (09:46→22:28)
[2022-10-05] MEDS: Ascorbic Acid 500 MG TABLET 1000 MG PO (09:46)
[2022-10-05] MEDS: Methenamine Hippurate 1 GM TABLET PO (09:46)
[2022-10-05] MEDS: Potassium Chloride ER 20 MEQ TAB.ER.PRT PO (09:46)
[2022-10-05] MEDS: Atorvastatin Calcium 80 MG TABLET PO (09:47)
[2022-10-05] MEDS: levETIRAcetam Oral Soln 500 MG/5 ML 250 MG PO ×2 (09:47→22:29)
[2022-10-05] MEDS: Lidocaine 4 % Patch ADH..PATCH 1 PATCH TRANSDERMA (09:47)
[2022-10-05] MEDS: 0.9 % Sodium Chloride Flush 3 ML SYRINGE IVFLUSH ×2 (09:47→18:02)
[2022-10-05 09:48] LABS: Anion Gap 12 (12-20); Blood Urea Nitrogen 29 mg/dL (9-16); Calcium 8.6 mg/dL (8.4-10.2); Carbon Dioxide 24 mmol/L (22-29); Chloride 109 mmol/L (96-108); Creatinine Clr Calc Pharmacy 51.4; Estimated Glomerular Filt Rate 53; Glucose Random 95 mg/dL (60-115); Potassium 3.2 mmol/L (3.3-5.1); Sodium 142 mmol/L (135-145)
[2022-10-05] MEDS: Triamcinolone Acet 0.5 % Oint 15 GM TUBE 1 APPL TOPICAL ×2 (10:03→23:02)
--- NOTE | 2022-10-05 10:14 | MHC.CM.PN ---
Addendum entered by Karen Montaño 10/05/22 12:33: CM INFORMED PT WILL NOT BE DISCHARGING TODAY DUE TO INCREASED Cr AND DECREASED BP [facility] UPDATED [facility]IA [facility] Original Note: PER MD ROUNDS, PT WILL BE CLEARED TO DC TODAY UPDATES AND NOTICE OF PENDING DC SENT TO [facility]
--- NOTE | 2022-10-05 10:50 | HO.PM.IMPN ---
Subjective Subjective Date of Service: 10/05/22 Interval History: Seen and evaluated this morning non-verbal but looks comfortable Had large BM Cr going up, hypotensive no bleeding from the catheter Review of Systems Review of Systems: Yes Unobtainable due to mental condition Physical Exam Vital Signs: Vital Signs: Last Vital Signs Temp 97.4 F 10/05/22 08:00 Pulse 82 10/05/22 08:00 Resp 16 10/05/22 08:00 BP 113/16 L 10/05/22 08:00 Pulse Ox 96 10/05/22 08:00 O2 Del Method Room Air 10/05/22 08:00 BMI result Body Mass Index 22.0 Const: Other: Constitutional : Awake, interactive, not in distress Neck : Normal inspection, Supple Cardiovascular : RRR, no JVP, no lower extremity edema Respiratory : good bilateral air entry, no crackles, wheezes or rhonchi Gastrointestinal: soft, lax, Normal bowel sounds, Non tender Skin : Warm, Dry, stage 3 decubetus ulcer which is not infection but oozing blood Urology: stable suprapubic cath w no active bleeding or blood noted . no tenderness. No warmth or surrounding erythema Neurological : non-verbal, paraplegic , alert Objective Data Active Medications Acetaminophen (Acetaminophen 325 Mg Tablet) 650 mg PO Q4H PRN PRN Reason: fever/pain Acetaminophen (Acetaminophen 325 Mg Tablet) 325 mg PO BEDTIME [facility] Last Admin: 10/04/22 20:26 Dose: 325 mg Documented By: ELEAZAR Amlodipine Besylate (Amlodipine Besylate 5 Mg Tablet) 5 mg PO DAILY [facility]; Protocol Last Admin: 10/04/22 09:02 Dose: 5 mg Documented By: FELICE Ascorbic Acid (Ascorbic Acid 500 Mg Tablet) 1,000 mg PO DAILY [facility] Last Admin: 10/05/22 09:46 Dose: 1,000 mg Documented By: MARK Atorvastatin Calcium (Atorvastatin Calcium 80 Mg Tablet) 80 mg PO DAILY [facility] Last Admin: 10/05/22 09:47 Dose: 80 mg Documented By: MARK Bisacodyl (Bisacodyl 10 Mg Supp.Rect) 10 mg [place] DAILY PRN PRN Reason: Constipation Gabapentin (Gabapentin 300 Mg Capsule) 300 mg PO BEDTIME [facility] Last Admin: 10/04/22 20:26 Dose: 300 mg Documented By: ELEAZAR Ceftriaxone Sodium 1 gm/ (Sodium Chloride) 50 mls @ 100 mls/hr IV Q24H [facility] Last Infusion: 10/04/22 12:54 Dose: 0 mls/hr Documented By: JULES Potassium Chloride (Potassium Chloride/H20) 10 meq in 100 mls @ 100 mls/hr IV ONCE ONE Stop: 10/05/22 11:31 Levetiracetam (Levetiracetam Oral Soln 500 Mg/5 Ml) 250 mg PO BID [facility] Last Admin: 10/05/22 09:47 Dose: 250 mg Documented By: MARK Lidocaine (Lidocaine 4 % Patch Adh..Patch) 1 patch TRANSDERMA DAILY [facility] Last Admin: 10/05/22 09:47 Dose: 1 patch Documented By: MARK Magnesium Hydroxide (Milk Of Magnesia 30 Ml Oral.Susp) 30 ml PO DAILY PRN PRN Reason: Constipation Methenamine Hippurate (Methenamine Hippurate 1 Gm Tablet) 1 gm PO DAILY [facility] Last Admin: 10/05/22 09:46 Dose: 1 gm Documented By: MARK Naloxone HCl (Naloxone Hcl Nasal 4 Mg [place]) 4 mg NOSTRILALT ONCE PRN PRN Reason: Opioid Overdose Ondansetron HCl (Ondansetron Hcl 4 Mg/2 Ml Vial) 4 mg IVPUSH Q8H PRN PRN Reason: Nausea and Vomiting Pharmacy Consult (Consult Rx Perform Med Rec) 1 each MISCELLANE ONCE PRN PRN Reason: Consult order Polyethylene Glycol (Polyethylene Glycol 3350 17 Gm Powd.Pack) 17 gm PO DAILY [facility] Potassium Chloride (Potassium Chloride Er 20 Meq Tab.Er.Prt) 20 meq PO DAILY [facility] Last Admin: 10/05/22 09:46 Dose: 20 meq Documented By: MARK Psyllium Hydrophilic Mucilloid (Psyllium Seed 3.4 Gm Powd.Pack) 3.4 gm PO BEDTIME [facility] Rivaroxaban (Rivaroxaban 20 Mg Tablet) 20 mg PO DAILY@1700 [facility] Last Admin: 10/04/22 17:14 Dose: 20 mg Documented By: JULES Senna (Sennosides 8.6 Mg Tablet) 17.2 mg PO BID [facility] Last Admin: 10/05/22 09:46 Dose: 17.2 mg Documented By: MARK Sodium Biphosphate/Sodium Phosphate (Sodium Phosphate,[place]-Dibasic 133 Ml Enema) 133 ml [place] DAILY PRN PRN Reason: Constipation Sodium Chloride (0.9 % Sodium Chloride Flush 3 Ml Syringe) 3 ml IVFLUSH QSHIFT [facility] Last Admin: 10/05/22 09:47 Dose: 3 ml Documented By: MARK Tamsulosin HCl (Tamsulosin Hcl 0.4 Mg Capsule) 0.4 mg PO BEDTIME [facility] Last Admin: 10/04/22 20:25 Dose: 0.4 mg Documented By: ELEAZAR Triamcinolone Acetonide (Triamcinolone Acet 0.5 % Oint 15 Gm Tube) 1 appl TOPICAL BID [facility] Last Admin: 10/05/22 10:03 Dose: 1 appl Documented By: MRAK Labs 10/05/22 07:14 10/05/22 07:14 Labs: Laboratory Results - last 24 hr 10/05/22 10/05/22 10/05/22 07:14 07:14 07:14 MCV 97.7 98.1 H MCH 33.1 H 32.9 MCHC 33.9 33.6 RDW 13.7 13.6 Plt Count 148 L 153 L MPV 9.8 9.9 Immature Gran % (Auto) 0.2 Neut % (Auto) 60.4 Lymph % (Auto) 27.8 [place] % (Auto) 9.0 Eos % (Auto) 2.4 Baso % (Auto) 0.2 Lymph # (Auto) 1.4 [place] # (Auto) 0.5 Eos # (Auto) 0.1 Baso # (Auto) 0.0 Abs Immat Gran (auto) 0.01 Absolute Neuts (auto) 3.1 Absolute Nucleated RBC 0.000 0.000 Nucleated RBC % (auto) 0.0 0.0 Anion Gap 11 L Estim Creat Clear Calc 52.9 Estimated GFR 54 Random Glucose 95 Lactic Acid Calcium 8.8 10/05/22 10/05/22 07:14 07:14 MCV MCH MCHC RDW Plt Count MPV Immature Gran % (Auto) Neut % (Auto) Lymph % (Auto) [place] % (Auto) Eos % (Auto) Baso % (Auto) Lymph # (Auto) [place] # (Auto) Eos # (Auto) Baso # (Auto) Abs Immat Gran (auto) Absolute Neuts (auto) Absolute Nucleated RBC Nucleated RBC % (auto) Anion Gap 12 Estim Creat Clear Calc 51.4 Estimated GFR 53 Random Glucose 95 Lactic Acid 0.9 Calcium 8.6 Microbiology Microbiology Results: Microbiology 10/03/22 17:06 Blood Culture - Preliminary Blood - Venous No growth after 24 hours. 10/03/22 14:42 Blood Culture - Preliminary Blood - Venous No growth after 24 hours. 10/03/22 Unknown Urine Culture - Preliminary Urine Other - Suprapubic Culture in progress. Assessment and Plan (1) Chronic constipation: Status: Acute (2) Decubitus ulcer of sacral area: Status: Acute (3) Large bowel obstruction: Status: Acute (4) Complicated urinary tract infection: Status: Acute Plan A 67 years old male with PMH of CVA on Xarelto, HTN, HLD, BPH on suprapubic catheter who presents to the hosptial from skilled nursing for evaluation of bleeding from suprapubic catheter. Hypotension 2/2 dehydration and having watery bowel movement and being on BP meds, not due to sepsis give boluses Hold BP meds monitor response Severe constipation CT concerning for possible obstruction; ruled out by surgery Continue with Enema Miralax, Senna and Psyllium Suprapubic cath bleeding resolved likely from manipulation, changed and secured, no bleeding functional restarted xarelto with no bleeding Decubetus ulcer no signs of infection Wound care nurse eval dressing air-mattress chronic suprapubic Catheter associated UTI pending cultures Ceftriaxone for now HTN Continue home meds Hx CVA Statin, hold Xarelto for bleeding BPH Continue Tamsulosin DVT PPx SCDs The patient will need overnight hospital stay for constipation, pending cultures and monitoring bleeding after restarting Xarelto Time Spent With Patient Time: Total time managing care of this patient today ____ minutes. Quality Stroke Does the patient have a stroke diagnosis?: No VTE Prior VTE?: No VTE Risk Level:: Medical - moderate - high VTE Device Contraindication: Treatment Not Indicated VTE Drug Contraindication: N/A - Med Ordered
[2022-10-05] MEDS: Potassium Chloride/H20 10 MEQ/100 ML PIGGYBACK 100 MEQ IV (11:23)
[2022-10-05] MEDS: cefTRIAXone sodium 1 GM in 0.9 % Sodium Chloride 50 ML IV (12:20)
--- NOTE | 2022-10-05 12:55 | PM.PNGS ---
Subjective Subjective Date of Service: 10/05/22 Interval history: As per nurse, has had small bowel movements, brown stools Does not seem to have any pain No events reported Physical Exam Vital Signs: Vital Signs: Last Vital Signs Temp 96.8 F 10/05/22 11:05 Pulse 60 10/05/22 11:05 Resp 20 10/05/22 11:05 BP 158/94 H 10/05/22 11:05 Pulse Ox 97 10/05/22 11:05 O2 Del Method Room Air 10/05/22 11:05 BMI result Body Mass Index 22.0 Const: Other: Nonverbal General: comfortable and no acute distress Resp: Effort & Inspection: normal respiratory effort Cardio: Rate: regular rate GI: Inspection: No distended Palpation (GI): Soft to palpation, not firm, nontender and no guarding Objective Data Active Medications Acetaminophen (Acetaminophen 325 Mg Tablet) 650 mg PO Q4H PRN PRN Reason: fever/pain Acetaminophen (Acetaminophen 325 Mg Tablet) 325 mg PO BEDTIME [facility] Last Admin: 10/04/22 20:26 Dose: 325 mg Documented By: ELEAZAR Amlodipine Besylate (Amlodipine Besylate 5 Mg Tablet) 5 mg PO DAILY [facility]; Protocol Last Admin: 10/04/22 09:02 Dose: 5 mg Documented By: FELICE Ascorbic Acid (Ascorbic Acid 500 Mg Tablet) 1,000 mg PO DAILY [facility] Last Admin: 10/05/22 09:46 Dose: 1,000 mg Documented By: MARK Atorvastatin Calcium (Atorvastatin Calcium 80 Mg Tablet) 80 mg PO DAILY [facility] Last Admin: 10/05/22 09:47 Dose: 80 mg Documented By: MARK Bisacodyl (Bisacodyl 10 Mg Supp.Rect) 10 mg IN DAILY PRN PRN Reason: Constipation Gabapentin (Gabapentin 300 Mg Capsule) 300 mg PO BEDTIME [facility] Last Admin: 10/04/22 20:26 Dose: 300 mg Documented By: ELEAZAR Ceftriaxone Sodium 1 gm/ (Sodium Chloride) 50 mls @ 100 mls/hr IV Q24H [facility] Last Admin: 10/05/22 12:20 Dose: 100 mls/hr Documented By: MARK Levetiracetam (Levetiracetam Oral Soln 500 Mg/5 Ml) 250 mg PO BID [facility] Last Admin: 10/05/22 09:47 Dose: 250 mg Documented By: MARK Lidocaine (Lidocaine 4 % Patch Adh..Patch) 1 patch TRANSDERMA DAILY [facility] Last Admin: 10/05/22 09:47 Dose: 1 patch Documented By: MARK Magnesium Hydroxide (Milk Of Magnesia 30 Ml Oral.Susp) 30 ml PO DAILY PRN PRN Reason: Constipation Methenamine Hippurate (Methenamine Hippurate 1 Gm Tablet) 1 gm PO DAILY [facility] Last Admin: 10/05/22 09:46 Dose: 1 gm Documented By: MARK Naloxone HCl (Naloxone Hcl Nasal 4 Mg [place]) 4 mg NOSTRILALT ONCE PRN PRN Reason: Opioid Overdose Ondansetron HCl (Ondansetron Hcl 4 Mg/2 Ml Vial) 4 mg IVPUSH Q8H PRN PRN Reason: Nausea and Vomiting Pharmacy Consult (Consult Rx Perform Med Rec) 1 each MISCELLANE ONCE PRN PRN Reason: Consult order Polyethylene Glycol (Polyethylene Glycol 3350 17 Gm Powd.Pack) 17 gm PO DAILY [facility] Potassium Chloride (Potassium Chloride Er 20 Meq Tab.Er.Prt) 20 meq PO DAILY [facility] Last Admin: 10/05/22 09:46 Dose: 20 meq Documented By: MARK Psyllium Hydrophilic Mucilloid (Psyllium Seed 3.4 Gm Powd.Pack) 3.4 gm PO BEDTIME [facility] Rivaroxaban (Rivaroxaban 20 Mg Tablet) 20 mg PO DAILY@1700 [facility] Last Admin: 10/04/22 17:14 Dose: 20 mg Documented By: JULES Senna (Sennosides 8.6 Mg Tablet) 17.2 mg PO BID [facility] Last Admin: 10/05/22 09:46 Dose: 17.2 mg Documented By: MARK Sodium Biphosphate/Sodium Phosphate (Sodium Phosphate,[place]-Dibasic 133 Ml Enema) 133 ml IN DAILY PRN PRN Reason: Constipation Sodium Chloride (0.9 % Sodium Chloride Flush 3 Ml Syringe) 3 ml IVFLUSH QSHIFT [facility] Last Admin: 10/05/22 09:47 Dose: 3 ml Documented By: MARK Tamsulosin HCl (Tamsulosin Hcl 0.4 Mg Capsule) 0.4 mg PO BEDTIME [facility] Last Admin: 10/04/22 20:25 Dose: 0.4 mg Documented By: ELEAZAR Triamcinolone Acetonide (Triamcinolone Acet 0.5 % Oint 15 Gm Tube) 1 appl TOPICAL BID [facility] Last Admin: 10/05/22 10:03 Dose: 1 appl Documented By: MARK Labs 10/05/22 07:14 10/05/22 07:14 Labs: Laboratory Results - last 24 hr 10/05/22 10/05/22 10/05/22 07:14 07:14 07:14 MCV 97.7 98.1 H MCH 33.1 H 32.9 MCHC 33.9 33.6 RDW 13.7 13.6 Plt Count 148 L 153 L MPV 9.8 9.9 Immature Gran % (Auto) 0.2 Neut % (Auto) 60.4 Lymph % (Auto) 27.8 [place] % (Auto) 9.0 Eos % (Auto) 2.4 Baso % (Auto) 0.2 Lymph # (Auto) 1.4 [place] # (Auto) 0.5 Eos # (Auto) 0.1 Baso # (Auto) 0.0 Abs Immat Gran (auto) 0.01 Absolute Neuts (auto) 3.1 Absolute Nucleated RBC 0.000 0.000 Nucleated RBC % (auto) 0.0 0.0 Anion Gap 11 L Estim Creat Clear Calc 52.9 Estimated GFR 54 Random Glucose 95 Lactic Acid Calcium 8.8 10/05/22 10/05/22 07:14 07:14 MCV MCH MCHC RDW Plt Count MPV Immature Gran % (Auto) Neut % (Auto) Lymph % (Auto) [place] % (Auto) Eos % (Auto) Baso % (Auto) Lymph # (Auto) [place] # (Auto) Eos # (Auto) Baso # (Auto) Abs Immat Gran (auto) Absolute Neuts (auto) Absolute Nucleated RBC Nucleated RBC % (auto) Anion Gap 12 Estim Creat Clear Calc 51.4 Estimated GFR 53 Random Glucose 95 Lactic Acid 0.9 Calcium 8.6 Microbiology Microbiology Results: Microbiology 10/03/22 Unknown Urine Culture - Preliminary Urine Other - Suprapubic Gram negative thuan 10/03/22 17:06 Blood Culture - Preliminary Blood - Venous No growth after 24 hours. 10/03/22 14:42 Blood Culture - Preliminary Blood - Venous No growth after 24 hours. Procedures Date of Service Date of Service: 10/05/22 Progress Note: A&P Assessment and plan (1) Chronic constipation: Status: Acute Assessment and Plan: Colon dilatation and heavy stool volume seen on CT scan seems to be chronic, unchanged from previous old CT scans Abdomen remained soft and benign nondistended Clinically not obstructed Passing brown stools If high suspicion for obstruction, would recommend going ahead with Gastrografin enema study of the rectum Time Spent With Patient Time: Total time managing care of this patient today ____ minutes. Quality Stroke Does the patient have a stroke diagnosis?: No VTE Prior VTE?: No VTE Risk Level:: Medical - moderate - high VTE Device Contraindication: Treatment Not Indicated VTE Drug Contraindication: N/A - Med Ordered
[2022-10-05] MEDS: Rivaroxaban 20 MG TABLET PO (18:02)
[2022-10-05] MEDS: Tamsulosin HCL 0.4 MG CAPSULE PO (22:28)
[2022-10-05] MEDS: Acetaminophen 325 MG TABLET PO (22:28)
[2022-10-05] MEDS: Gabapentin 300 MG CAPSULE PO (22:28)
[2022-10-06] MEDS: 0.9 % Sodium Chloride Flush 3 ML SYRINGE IVFLUSH ×2 (00:15→09:54)
[2022-10-06 03:20] VITALS: BP 96/54; PULSE 51; RESP 18; TEMP 36.4; O2SAT 97
[2022-10-06 07:09] VITALS: BP 109/62; PULSE 52; RESP 20; TEMP 36.5; O2SAT 97
[2022-10-06 07:29] LABS: Hematocrit 27.9 % (42.0-52.0); Hemoglobin 9.3 g/dl (14.0-18.0); Mean Corpuscular HGB Conc 33.3 g/dl (31.0-36.0); Mean Corpuscular Volume 95.9 fL (80.0-98.0); Mean Platelet Volume 9.9 fL (9.4-12.4); Platelet Count 146 X10*3/uL (160-400); Red Blood Count 2.91 X10*6/uL (4.60-5.80); Red Cell Distribution Width 13.4 % (11.0-16.0); White Blood Count 5.4 X10*3/uL (4.8-10.8)
[2022-10-06 08:17] LABS: Anion Gap 8 (12-20); Blood Urea Nitrogen 28 mg/dL (9-16); Calcium 8.4 mg/dL (8.4-10.2); Carbon Dioxide 25 mmol/L (22-29); Chloride 110 mmol/L (96-108); Creatinine Clr Calc Pharmacy 67.3; Estimated Glomerular Filt Rate > 60; Glucose Random 104 mg/dL (60-115); Sodium 140 mmol/L (135-145)
[2022-10-06] MEDS: Potassium Chloride Packet 20 MEQ PACKET 40 MEQ PO (09:54)
[2022-10-06] MEDS: Methenamine Hippurate 1 GM TABLET PO (09:54)
[2022-10-06] MEDS: Lidocaine 4 % Patch ADH..PATCH 1 PATCH TRANSDERMA (09:55)
[2022-10-06] MEDS: Ascorbic Acid 500 MG TABLET 1000 MG PO (09:55)
[2022-10-06] MEDS: Atorvastatin Calcium 80 MG TABLET PO (09:55)
[2022-10-06] MEDS: Sennosides 8.6 MG TABLET 17.2 MG PO (09:55)
[2022-10-06] MEDS: levETIRAcetam Oral Soln 500 MG/5 ML 250 MG PO (09:56)
[2022-10-06] MEDS: Potassium Chloride ER 20 MEQ TAB.ER.PRT PO (09:56)
[2022-10-06] MEDS: Triamcinolone Acet 0.5 % Oint 15 GM TUBE 1 APPL TOPICAL (10:01)
[2022-10-06] MEDS: cefTRIAXone sodium 1 GM in 0.9 % Sodium Chloride 50 ML IV (10:45)
--- NOTE | 2022-10-06 11:00 | PM.DS ---
DS: Providers Provider Date of Service: 10/06/22 Date of admission: 10/03/22 16:01 Primary care physician: Lauren Wiley MD Consults: 10/04/22 10:12 Consult to General Surgery Routine Consulting Provider: [facility] Reason for consultation: Constipation DS: Diagnosis Discharge Diagnosis (1) Chronic constipation: Status: Acute (2) Decubitus ulcer of sacral area: Status: Acute (3) Complicated urinary tract infection: Status: Acute DS: Summary Hospital Course Hospital Course: Admission note HPI A 67 years old male with PMH of CVA on Xarelto, HTN, HLD, BPH on suprapubic catheter who presents to the hosptial from longterm for evaluation of bleeding from suprapubic catheter. The patient is unable to provide much of history so it was obtained from longterm and ED records. He is on Xarelto at baseline and suspected pulling and manipulation of it. still passing urine though. CT scan of abd showed evidence of large stool burden and constipation. evaluated by surgeon who felt it is related to constipation with no obstruction. Admitted for further eval and treatment. Hospital course Hypotension 2/2 dehydration and having watery bowel movement and being on BP meds, not due to sepsis. reponded well to IVF boluses. To cut down his Losartan to 50 mg at time of discharge. will need closer monitoring. Severe constipation CT concerning for possible obstruction; ruled out by surgery. Had multiple bowel movements with laxatives and Enema. Continue with Miralax, Senna and Psyllium. Suprapubic cath bleeding, resolved likely from manipulation, changed and secured, no bleeding. It is functional. restarted xarelto with no bleeding. Stage 3 Decubetus ulcer no signs of infection. Wound care nurse evaluation. wet to dry dressing. air-mattress ? chronic suprapubic Catheter associated UTI Protues sensitive bacteria in urine. cultures. Treated with IV Ceftriaxone. To continue PO Ceftin on discharge. Continue Ceftin for infection Continue Miralax, Senna And Psyllium as prescribed Goal 1-2 regular bowel movements. Hold Senna first for diarrhea Hold Losartan, Monitor BP at facility and restart if needed. Time Spent with Patient Time attestation: Total time managing care of this patient today ____ minutes. Discharge coordination time: Greater than 30 minutes Quality: Safe Use of Opioids Does Pt have an Active Cancer Diagnosis on the Problem List?: No Quality: Stroke Does the patient have a stroke diagnosis?: No Physical Exam Vital Signs: Vital Signs: Last Vital Signs Temp 97.7 F 10/06/22 07:09 Pulse 52 10/06/22 07:09 Resp 20 10/06/22 07:09 BP 109/62 10/06/22 07:09 Pulse Ox 97 10/06/22 07:09 O2 Del Method Room Air 10/06/22 07:09 BMI result Body Mass Index 22.0 Const: Other: Constitutional : Awake, interactive, not in distress Neck : Normal inspection, Supple Cardiovascular : RRR, no JVP, no lower extremity edema Respiratory : good bilateral air entry, no crackles, wheezes or rhonchi Gastrointestinal: soft, lax, Normal bowel sounds, Non tender Skin : Warm, Dry, stage 3 decubetus ulcer which is not infection but oozing blood Urology: stable suprapubic cath w no active bleeding or blood noted . no tenderness. No warmth or surrounding erythema Neurological : non-verbal, paraplegic , alert : Other: DS: Data Data Completed and Pending Completed studies during hospitalization [Text1]: Procedures Drainage of Bladder with Drainage Device, Percutaneous Endoscopic Approach (06/23/21) Labs on day of discharge: Laboratory Results - last 24 hr 10/06/22 10/06/22 06:44 06:44 WBC 5.4 RBC 2.91 L Hgb 9.3 L Hct 27.9 L MCV 95.9 MCH 32.0 MCHC 33.3 RDW 13.4 Plt Count 146 L MPV 9.9 Absolute Nucleated RBC 0.000 Nucleated RBC % (auto) 0.0 Sodium 140 Potassium 3.0 L Chloride 110 H Carbon Dioxide 25 Anion Gap 8 L BUN 28 H Creatinine 1.03 Estim Creat Clear Calc 67.3 Estimated GFR > 60 Random Glucose 104 Calcium 8.4 Preliminary micro results at discharge 10/05/22 07:14 Blood Culture - Preliminary Blood - Venous No growth after 24 hours. 10/03/22 Unknown Urine Culture - Preliminary Urine Other - Suprapubic Gram negative thuan Proteus mirabilis 10/03/22 17:06 Blood Culture - Preliminary Blood - Venous No growth after 48 hours. 10/03/22 14:42 Blood Culture - Preliminary Blood - Venous No growth after 48 hours. Imaging Chest x-ray: Radiologist's impression: ITS Impressions Abdomen X-Ray 10/03/22 10:17 IMPRESSION: Walker catheter in the pelvis presumably representing suprapubic tube. Severe constipation. Dilated small and large bowel, question ileus versus distal large bowel obstruction. Abdomen/Pelvis CT 10/03/22 12:42 IMPRESSION: Severe constipation. Question stercoral colitis related to chronic obstruction. This may be causing mild secondary large bowel obstruction. Sacral decubitus ulcer and question mild osteomyelitis of the distal sacrum and coccyx. Suprapubic tube in the bladder in satisfactory position. Bilateral renal stones, right greater than left. Fleischner guidelines were followed. Discharge Plan Discharge Anticipated Discharge Date/Time: 10/05/22 10:22 Patient Disposition: [facility] Discharge Diagnosis: Chronic constipation Referrals: [facility] [Outside] - 1 Week Lauren Wiley MD [Primary Care Provider] - 1 Week Discharge Medications: New polyethylene glycol 3350 17 gram Powder In Packet 17 g PO DAILY Qty: 30 0RF sennosides [Senna Lax] 8.6 mg Tablet 17.2 mg PO BEDTIME Qty: 60 0RF cefuroxime axetil 500 mg tablet 500 mg PO BID Qty: 10 0RF Metamucil Fiber Singles 3.4 gram Powder In Packet 3.4 g PO BEDTIME Qty: 30 0RF Continued (DME) wet wipes See Rx Instructions .ROUTE .MEDSUPPLY Qty: 5 3RF Rx Instructions: As directed levetiracetam 100 mg/mL solution 2.5 ml PO BID naloxone 4 mg/actuation [place],Non-Aerosol 4 mg INTRANASAL ONCE PRN (Reason: Opioid Overdose) lidocaine 5 % adhesive patch,medicated 1 patch topical DAILY Rx Instructions: apply to right upper arm AND REMOVE AT BEDTIME acetaminophen 325 mg Tablet 650 mg PO Q4H PRN (Reason: fever/pain) calcium carbonate-vitamin D3 600 mg-5 mcg (200 unit) Tablet 1 tab PO BID magnesium hydroxide [Milk of Magnesia] 400 mg/5 mL Suspension 30 ml PO DAILY PRN (Reason: Constipation) bisacodyl 10 mg Suppository 10 mg MD DAILY PRN (Reason: Constipation) potassium chloride 20 mEq tablet,ER particles/crystals 20 meq PO DAILY [place] Enema 19-7 gram/118 mL Enema 118 ml MD DAILY PRN (Reason: Constipation) magnesium citrate Solution 150 ml PO DAILY PRN (Reason: Constipation) oxycodone 5 mg Tablet 5 mg PO Q6H PRN (Reason: Pain) acetaminophen [Tylenol] 325 mg Tablet 325 mg PO BEDTIME acetic acid 0.25 % Solution 50 ml IRRIGATION TUTHSA@2100 Rx Instructions: for urinary catheter flush gabapentin 300 mg capsule 300 mg PO BEDTIME 30 Days Qty: 30 0RF (DME) miscellaneous medical supply Misc See Rx Instructions .ROUTE .MEDSUPPLY Qty: 1 0RF Rx Instructions: RUE resting hand Splint/Sling As directed, Dx: G81.91, I67.89, duration 999 days/life time tamsulosin 0.4 mg capsule 0.4 mg PO BEDTIME 90 Days Qty: 90 1RF amlodipine 5 mg tablet 5 mg PO DAILY Xarelto 20 mg tablet 20 mg PO DAILY@1700 atorvastatin 80 mg tablet 80 mg PO DAILY ascorbic acid (vitamin C) 1,000 mg tablet 1,000 mg PO DAILY 90 Days Qty: 90 1RF methenamine hippurate 1 gram tablet 1 g PO daily 90 Days Qty: 90 1RF Held losartan 100 mg tablet 100 mg PO DAILY 90 Days Qty: 90 4RF Hold Instructions: Monitor BP at facility and restart if needed. Discharge Orders: Discharge Order (Routine); Ordered 10/06/22 Ordered By: Rowena Silver Diet: Advance to usual diet Activity on Discharge: As tolerated Stand Alone Forms: Patient Portal Discharge page Care Plan Goals: Read below Health Concerns: Read below Plan of Treatment: Read below Assessment: Continue Ceftin for infection Continue Miralax, Senna And Psyllium as prescribed Goal 1-2 regular bowel movements. Hold Senna first for diarrhea Hold Losartan, Monitor BP at facility and restart if needed. Discharge Date/Time: 10/06/22 15:42
--- NOTE | 2022-10-06 11:21 | P.CDIM_ITS ---
PROVIDER RESPONSE TEXT: To clarify, the appropriate diagnosis supported by the clinical indicators: Pressure (decubitus) ulcer sacral, stage 3 QUERY TEXT: PHYSICIAN'S DOCUMENTATION REQUEST Date of Query: 10/06/2022 07:58 AM EDT Patient Name: Wyatt Castillo Admit Date: 10/03/2022 Dear Rowena Silver, A review of the medical record indicates additional documentation may be needed. Please review below and update the documentation accordingly. Clinical Indicators: Per Hospitalist Progress Note 10/05/22: stage 3 decubitus ulcer which is not infection but oozing blood Per Nursing Pressure Injury Assessment 10/05/22: wound coccyx unstageable Based on the above, could you please provide further information regarding the ulcer/wound: Pressure (decubitus) ulcer sacral, stage 3 Pressure (decubitus) ulcer sacral, unstageable Other (explain)Clinically unable to determine (explain)Thank you, Feli Hansen RN Use of terms such as suspected, likely, concern for, or probable (associated with a specific diagnosi s that is being evaluated, monitored, or treated as if it exists) are acceptable and can be coded in the inpatient se tting, when documented at the time of discharge. Please use your independent medical judgment in providing your response. THIS QUERY IS PART OF THE PERMANENT MEDICAL RECORD
--- NOTE | 2022-10-06 11:41 | MHC.CM.PN ---
Pt medically cleared for D/C back to [facility], transport booked for 2pm via [facility].
--- NOTE | 2022-10-06 12:25 | PM.PNGS ---
Subjective Subjective Date of Service: 10/16/22 Interval history: As per nursing staff, patient has had loose brown stools does not seem to have abdominal pain or discomfort Physical Exam Vital Signs: Vital Signs: Last Vital Signs Temp 97.7 F 10/06/22 07:09 Pulse 52 10/06/22 07:09 Resp 20 10/06/22 07:09 BP 109/62 10/06/22 07:09 Pulse Ox 97 10/06/22 07:09 O2 Del Method Room Air 10/06/22 07:09 BMI result Body Mass Index 22.0 Const: Other: None verbal, appears comfortable General: no acute distress Resp: Effort & Inspection: normal respiratory effort Cardio: Rate: regular rate GI: Other: Nondistended Palpation (GI): Soft to palpation, not firm, nontender and no guarding Objective Data Active Medications Acetaminophen (Acetaminophen 325 Mg Tablet) 650 mg PO Q4H PRN PRN Reason: fever/pain Acetaminophen (Acetaminophen 325 Mg Tablet) 325 mg PO BEDTIME [facility] Last Admin: 10/05/22 22:28 Dose: 325 mg Documented By: PENNIE Amlodipine Besylate (Amlodipine Besylate 5 Mg Tablet) 5 mg PO DAILY [facility]; Protocol Last Admin: 10/04/22 09:02 Dose: 5 mg Documented By: FELICE Ascorbic Acid (Ascorbic Acid 500 Mg Tablet) 1,000 mg PO DAILY [facility] Last Admin: 10/06/22 09:55 Dose: 1,000 mg Documented By: ROSETTE Atorvastatin Calcium (Atorvastatin Calcium 80 Mg Tablet) 80 mg PO DAILY [facility] Last Admin: 10/06/22 09:55 Dose: 80 mg Documented By: ROSETTE Bisacodyl (Bisacodyl 10 Mg Supp.Rect) 10 mg TN DAILY PRN PRN Reason: Constipation Gabapentin (Gabapentin 300 Mg Capsule) 300 mg PO BEDTIME [facility] Last Admin: 10/05/22 22:28 Dose: 300 mg Documented By: PENNIE Ceftriaxone Sodium 1 gm/ (Sodium Chloride) 50 mls @ 100 mls/hr IV Q24H [facility] Last Infusion: 10/05/22 12:59 Dose: 0 mls/hr Documented By: MARK Levetiracetam (Levetiracetam Oral Soln 500 Mg/5 Ml) 250 mg PO BID [facility] Last Admin: 10/06/22 09:56 Dose: 250 mg Documented By: ROSETTE Lidocaine (Lidocaine 4 % Patch Adh..Patch) 1 patch TRANSDERMA DAILY [facility] Last Admin: 10/06/22 09:55 Dose: 1 patch Documented By: ROSETTE Magnesium Hydroxide (Milk Of Magnesia 30 Ml Oral.Susp) 30 ml PO DAILY PRN PRN Reason: Constipation Methenamine Hippurate (Methenamine Hippurate 1 Gm Tablet) 1 gm PO DAILY [facility] Last Admin: 10/06/22 09:54 Dose: 1 gm Documented By: ROSETTE Naloxone HCl (Naloxone Hcl Nasal 4 Mg [place]) 4 mg NOSTRILALT ONCE PRN PRN Reason: Opioid Overdose Ondansetron HCl (Ondansetron Hcl 4 Mg/2 Ml Vial) 4 mg IVPUSH Q8H PRN PRN Reason: Nausea and Vomiting Pharmacy Consult (Consult Rx Perform Med Rec) 1 each MISCELLANE ONCE PRN PRN Reason: Consult order Polyethylene Glycol (Polyethylene Glycol 3350 17 Gm Powd.Pack) 17 gm PO DAILY [facility] Potassium Chloride (Potassium Chloride Er 20 Meq Tab.Er.Prt) 20 meq PO DAILY [facility] Last Admin: 10/06/22 09:56 Dose: 20 meq Documented By: ROSETTE Psyllium Hydrophilic Mucilloid (Psyllium Seed 3.4 Gm Powd.Pack) 3.4 gm PO BEDTIME [facility] Last Admin: 10/05/22 22:31 Dose: 3.4 gm Documented By: PENNIE Rivaroxaban (Rivaroxaban 20 Mg Tablet) 20 mg PO DAILY@1700 [facility] Last Admin: 10/05/22 18:02 Dose: 20 mg Documented By: PHANLYM Senna (Sennosides 8.6 Mg Tablet) 17.2 mg PO BID [facility] Last Admin: 10/06/22 09:55 Dose: 17.2 mg Documented By: ROSETTE Sodium Biphosphate/Sodium Phosphate (Sodium Phosphate,[place]-Dibasic 133 Ml Enema) 133 ml TN DAILY PRN PRN Reason: Constipation Sodium Chloride (0.9 % Sodium Chloride Flush 3 Ml Syringe) 3 ml IVFLUSH QSHIFT [facility] Last Admin: 10/06/22 09:54 Dose: 3 ml Documented By: ROSETTE Tamsulosin HCl (Tamsulosin Hcl 0.4 Mg Capsule) 0.4 mg PO BEDTIME [facility] Last Admin: 10/05/22 22:28 Dose: 0.4 mg Documented By: PENNIE Triamcinolone Acetonide (Triamcinolone Acet 0.5 % Oint 15 Gm Tube) 1 appl TOPICAL BID [facility] Last Admin: 10/06/22 10:01 Dose: 1 appl Documented By: ROSETTE Labs 10/06/22 06:44 10/06/22 06:44 Labs: Laboratory Results - last 24 hr 10/06/22 10/06/22 06:44 06:44 MCV 95.9 MCH 32.0 MCHC 33.3 RDW 13.4 Plt Count 146 L MPV 9.9 Absolute Nucleated RBC 0.000 Nucleated RBC % (auto) 0.0 Anion Gap 8 L Estim Creat Clear Calc 67.3 Estimated GFR > 60 Random Glucose 104 Calcium 8.4 Microbiology Microbiology Results: Microbiology 10/05/22 08:14 Blood Culture - Preliminary Blood - Venous No growth after 24 hours. 10/05/22 07:14 Blood Culture - Preliminary Blood - Venous No growth after 24 hours. 10/03/22 Unknown Urine Culture - Preliminary Urine Other - Suprapubic Gram negative thuan Proteus mirabilis 10/03/22 17:06 Blood Culture - Preliminary Blood - Venous No growth after 48 hours. 10/03/22 14:42 Blood Culture - Preliminary Blood - Venous No growth after 48 hours. Procedures Date of Service Date of Service: 10/16/22 Progress Note: A&P Assessment and plan (1) Chronic constipation: Status: Inactive Assessment and Plan: Clinically not obstructive Heavy stool volume, colon dilatation not new - seen on previous CT scans Abdomen soft, non distended, no guarding, no rebound, no tenderness Passing stools Diet as tolerated If with high suspicion for obstruction down the line, okay to proceed with Gastrografin enema study Currently seems to be doing well however Time Spent With Patient Time: Total time managing care of this patient today ____ minutes. Quality Stroke Does the patient have a stroke diagnosis?: No VTE Prior VTE?: No VTE Risk Level:: Medical - moderate - high VTE Device Contraindication: Treatment Not Indicated VTE Drug Contraindication: N/A - Med Ordered
--- NOTE | 2022-10-06 15:45 | HO.WOUND ---
Wound Care Consult Reason for consult: coccyx ulcer Patient is residing at a SNF. 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 He has an air mattress in place as well as protein shakes. Foam border taken off at the time of consult. Wound bed appearance is large red with very little yellow. There is some deep red/maroon tissue areas within the wound concerning of possible trauma to the tissue. Wound edges are attached. No undermining or tunneling. Periwound towards the left distal portion has a 1cm x 1.5cm x 0.1cm of excoriation. Wound drainage was large serosanguineous. Wound measured 3.5cm x 3cm x 0.9cm. Wound cleansed with sea clense. Alginate ag cut to wound size and layed on the wound bed. Covered with Foam border. Recommendation: Cleanse wound with normal saline or sea clense wound cleanser. Cut alginate ag to wound size and lay into wound. Apply zinc barrier cream to the periwound. Cover with a foam border. Change daily. Continue to increase protein intake as tolerated. Reposition patient frequently. When the patient is discharged, he will continue to follow up with [facility] for his wound. If there are any questions or concerns, please feel free and reconsult wound care.
== END 2022-10-06 15:42 | DRG 698 ==
LOC: HO.ED 14:13 → HO.EDOVER 16:30 → HO.IMC 19:33
PROVIDERS: Internal Medicine; Physician Assistant; Admitting Provider Student in an Organized Health Care Education/Training Program; Emergency Provider Emergency Medicine Emergency Medical Services; PCP Internal Medicine; Visit Provider Student in an Organized Health Care Education/Training Program
DX: T83.518A Infection and inflammatory reaction due to other urinary catheter, initial encounter (principal); L89.153 Pressure ulcer of sacral region, stage 3; I69.351 Hemiplegia and hemiparesis following cerebral infarction affecting right dominant side; T83.83XA Hemorrhage due to genitourinary prosthetic devices, implants and grafts, initial encounter; N40.0 Benign prostatic hyperplasia without lower urinary tract symptoms; K59.09 Other constipation; Y73.8 Miscellaneous gastroenterology and urology devices associated with adverse incidents, not elsewhere classified; B96.4 Proteus (mirabilis) (morganii) as the cause of diseases classified elsewhere; I95.9 Hypotension, unspecified; I69.322 Dysarthria following cerebral infarction; E86.0 Dehydration; Z74.01 Bed confinement status; Z87.440 Personal history of urinary (tract) infections; Z79.01 Long term (current) use of anticoagulants; Z79.899 Other long term (current) drug therapy
CPT/HCPCS: 36415; 74019; 74176; 80048; 80076; 81001; 83605; 85025; 85027; 85652; 86140; 87040; 87086; 87088; 87186; 99285; J0696

== ENCOUNTER → 2022-10-03 16:01 | Outpatient (BNV) | payer OTHER, SELFPAY | PROVIDERS: Admitting Provider Student in an Organized Health Care Education/Training Program; Emergency Provider Emergency Medicine Emergency Medical Services; PCP Internal Medicine; Visit Provider Surgery | DX: K59.09 Other constipation (principal); L89.159 Pressure ulcer of sacral region, unspecified stage | CPT/HCPCS: 99222; 99231; 99232 ==

== ENCOUNTER → 2022-10-03 16:01 | Outpatient (BNV) | payer OTHER, SELFPAY | PROVIDERS: Admitting Provider Student in an Organized Health Care Education/Training Program; Emergency Provider Emergency Medicine Emergency Medical Services; PCP Internal Medicine; Visit Provider Student in an Organized Health Care Education/Training Program | DX: K59.09 Other constipation (principal); L89.159 Pressure ulcer of sacral region, unspecified stage; N39.0 Urinary tract infection, site not specified | CPT/HCPCS: 99223; 99232; 99233; 99239; 99499 ==

== ENCOUNTER 2022-12-22 00:55 | Inpatient (IN) | payer OTHER, SELFPAY ==
[2022-12-22] VITALS (17 sets, daily range): BP systolic 88–125; BP diastolic 51–91; PULSE 58–150; RESP 12–20; TEMP 36.3–38.3; O2SAT 94–99; BMI 39.5
--- NOTE | ~2022-12-22 | CT_ITS ---
EXAMINATION: CT ABDOMEN AND PELVIS WITH CONTRAST CLINICAL INFORMATION: COMPARISON: None available. TECHNIQUE: Multidetector volumetric images were obtained from the superior aspect of the liver through the pubic symphysis following administration 85 mL of Omnipaque 350 intravenous contrast. Sagittal and coronal reformatted images were obtained on the technologist's workstation. Oral contrast: No This CT examination was performed using dose optimization techniques as appropriate, variously including the following: *Automated exposure control *Adjustment of mA and/or kV according to patient size (this includes techniques or standardized protocols for targeted exams where dose is matched to indication/reason for exam; i.e. extremities or head) *Use of iterative reconstruction technique DLP: 945 mGy-cm FINDINGS: LUNG BASES: There is atelectatic change at the lung bases. There is a minimal pericardial effusion. LIVER, GALLBLADDER, AND BILIARY TREE: The liver is normal in size, shape, and attenuation. No focal hepatic lesion or biliary ductal dilatation is present. The gallbladder is unremarkable with no evidence of radiopaque gallstones, gallbladder wall thickening, or obvious pericholecystic inflammatory changes. PANCREAS: Unremarkable. SPLEEN: Subcentimeter cysts within the spleen. ADRENAL GLANDS: Unremarkable. KIDNEYS AND URETERS: The kidneys are normal in size and contour. There is a 3.7 mm calculus within the right renal pelvis extending to the right upper pole. There is a 5 mm calculus lower pole left kidney. There is mild bilateral hydronephrosis and hydroureter extending into the pelvis without ureteral calculus. BLADDER: There is mild urinary bladder wall thickening. There is a suprapubic catheter which extends into the prostate gland with the balloon of the catheter within the lower prostate/proximal urethra. There is a small amount of air within the urinary bladder. GASTROINTESTINAL TRACT: There is retained stool within the right colon with gaseous distention of the remaining colon. There is mild rectal thickening. ABDOMINAL WALL: No significant hernia is appreciated. LYMPH NODES: Normal. VASCULAR: There is atherosclerotic plaque of the abdominal aorta and proximal branches. PELVIC VISCERA: Unremarkable. OSSEOUS STRUCTURES: There is mild diffuse thoracolumbar disc degenerative change. CT/CT abdomen pelvis w IV con IMPRESSION: Apparent indwelling suprapubic catheter in place which extends through the urinary bladder with the apparent balloon of the catheter terminating in the lower prostate/ureter. Retained stool within the right colon. Distended gas-filled remaining colon. Mild rectal thickening possibly a mild proctitis. Bilateral renal calculi. Bilateral mild hydronephrosis and hydroureter extending to the pelvis without ureteral calculi. Suspect outlet obstruction. There are small pericardial effusion. Fleischner guidelines were followed.
--- NOTE | 2022-12-22 01:16 | ED_ITS ---
HPI - Male Genitourinary General Chief complaint: Urogenital-Male Stated complaint: blood in cath Time Seen by Provider: 12/22/22 01:09 Source: EMS, old records reviewed and foreign language interpreter Mode of arrival: EMS Limitations: other (post CVA. 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 He has no complaints but also cannot verbalize much MD Complaint: other (finley catheter issue) Onset (ago): hour(s) (11 shift) Duration: constant Location: penis Severity: moderate Relieving factors: none Exacerbating factors: none Context: other (suprapubic cath change) Associated symptoms: Reports blood in urine Related Data Home Medications Medication Instructions Recorded Confirmed amlodipine 5 mg tablet 5 mg PO DAILY 06/20/20 12/22/22 acetaminophen 325 mg tablet 650 mg PO Q4H PRN fever/pain 02/16/21 12/22/22 bisacodyl 10 mg rectal suppository 10 mg PA DAILY PRN Constipation 02/16/21 12/22/22 calcium carbonate 600 mg-vitamin 1 tab PO BID 02/16/21 12/22/22 D3 5 mcg (200 unit) tablet lidocaine 5 % topical patch 1 patch topical DAILY 02/16/21 12/22/22 magnesium hydroxide 400 mg/5 mL 30 ml PO DAILY PRN Constipation 02/16/21 12/22/22 oral suspension (Milk of Magnesia) levetiracetam 100 mg/mL oral 2.5 ml PO BID 02/26/21 12/22/22 solution naloxone 4 mg/actuation nasal spray 4 mg intranasal ONCE PRN Opioid 02/26/21 12/22/22 Overdose potassium chloride 20 mEq 20 meq PO DAILY 06/23/21 12/22/22 tablet,extended release(part/cryst) atorvastatin 80 mg tablet 80 mg PO DAILY 01/26/22 12/22/22 rivaroxaban 20 mg tablet (Xarelto) 20 mg PO DAILY@1700 01/26/22 12/22/22 magnesium citrate 150 ml PO DAILY PRN Constipation 02/15/22 12/22/22 oxycodone 5 mg tablet 5 mg PO Q6H PRN Pain 02/15/22 12/22/22 sodium phosphates 19 gram-7 118 ml PA DAILY PRN Constipation 02/15/22 12/22/22 gram/118 mL enema (Fleet Enema) acetaminophen 325 mg tablet 325 mg PO BEDTIME 10/03/22 12/22/22 (Tylenol) acetic acid 0.25 % irrigation 50 ml irrigation TUTHSA@2100 10/03/22 12/22/22 solution Previous Rx's Medication Instructions Recorded losartan 100 mg tablet 100 mg PO DAILY 90 days #90 tabs 02/07/20 wet wipes #5 multiple units 03/12/20 tamsulosin 0.4 mg capsule 0.4 mg PO BEDTIME 90 days #90 caps 03/22/20 gabapentin 300 mg capsule 300 mg PO BEDTIME 30 days #30 caps 03/27/20 miscellaneous medical supply #1 ea 03/27/20 ascorbic acid (vitamin C) 1,000 mg 1,000 mg PO DAILY 90 days #90 tabs 01/27/22 tablet methenamine hippurate 1 gram tablet 1 g PO daily 90 days #90 tabs 01/27/22 polyethylene glycol 3350 17 gram 17 g PO DAILY #30 ea 10/05/22 oral powder packet sennosides 8.6 mg tablet (Senna 17.2 mg (2 x 8.6 mg) PO BEDTIME 10/05/22 Lax) #60 tabs psyllium husk (aspartame) 3.4 gram 3.4 g PO BEDTIME #30 ea 10/06/22 oral powder packet (Metamucil Fiber Singles) Allergies Allergy/AdvReac Type Severity Reaction Status Date / Time No Known Allergies Allergy Verified 12/22/22 01:21 [No Known Allergies*] Review of Systems 2 Review of Systems: ROS unable to be obtained due to CVA PMF Past Medical History Source: old records reviewed Medical History Chronic constipation Decubitus ulcer of sacral area Osteomyelitis Septic shock C. 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 Mother No problems noted. Social History Social History Household Members: Other Household Members Other:: resides at [facility] MICHAEL Rivers ([phone]) Housing: Alf Are you a primary rn patient care to a significant other at home: No Do you presently have visiting nurse or other home services: No Unable to assess alcohol history related to: Unknown Alcohol intake: unknown Patient Tobacco Use Status: Tobacco use Unknown Advance Directives: Yes Advance Directives on File: Yes Advance Directives Date on File: 07/25/21 service: No Current occupational status: disabled Physical Exam 2 Vital Signs: Vital Signs: Last Vital Signs Temp 99.1 F 12/22/22 06:16 Pulse 106 H 12/22/22 06:16 Resp 19 12/22/22 06:16 BP 110/71 12/22/22 06:16 Pulse Ox 94 12/22/22 04:07 O2 Del Method Room Air 12/22/22 04:07 BMI result Body Mass Index 39.5 Appearance: Alert. tracks with eyes No acute distress. Eyes: Pupils equal, round and reactive to light. ENT: Pharynx normal. Neck: Normal inspection. Neck supple. CVS: Normal heart rate and rhythm. Pulses normal. Respiratory: No respiratory distress. Breath sounds normal. Abdomen: Soft and nontender.no blood outside cath site : jessica thick blood in tubing , trickle of blood coming out of the penis as well Skin: Skin warm and dry. pale skin color. Normal skin turgor. Extremities: No lower extremity edema. No calf ttp Neuro: tracks with eyes and responds to tactile stimuli otherwise not really participating Course Course Course Narrative: concern for catheter in wrong position at this time I have ordered lactic acid cultures and empiric antibiotics 240am Reevaluation(s) Reevaluation #1: finley to be replaced attempting to find appropriate 3 way cath Reevaluation #2: cannot reach listed HCP which is son Al - mailbox is full he is a full CODE at this time presumed he will need transfusionHR in 130/150s still bleeding. Dr. Sevilla aware I cannot pass cath through penis to try to tamponade will give one unit of blood at this time alternative agent daughter in law Vernon aware and agrees with transfusion Dr. Sevilla to see at 730AM Reevaluation #3: 623am Dr. Silver aware of admission and agrees. ordered his AM of keppra VS stable as blood is infusing he does appear more pale HR improved with transfusion and BP is stable Medications Administered Generic Name Dose Route Start Last Admin Trade Name Freq PRN Reason Stop Dose Admin Sodium Chloride 1,000 mls @ 75 mls/hr 12/22/22 04:15 12/22/22 04:36 Ns IVCONT 75 mls/hr .[id number] KEE Administration Discontinued Medications Generic Name Dose Route Start Last Admin Trade Name Freq PRN Reason Stop Dose Admin Ceftriaxone Sodium 2 gm/ 50 mls @ 100 mls/hr 12/22/22 02:41 12/22/22 03:45 Sodium Chloride IV 12/22/22 03:10 Infused ONCE ONE Infusion Sodium Chloride 100 mls @ 100 mls/hr 12/22/22 05:06 12/22/22 06:10 Ns IV 12/22/22 06:05 100 mls/hr ONCE ONE Administration Iohexol 85 ml 12/22/22 02:26 12/22/22 02:26 Iohexol 350 Mg/Ml 100 Ml Infus..Btl IV 12/22/22 02:27 85 ml ONCE ONE Administration Lidocaine HCl 10 ml 12/22/22 05:00 12/22/22 05:04 Lidocaine Hcl 2 % Urojet 10 Ml Jel.Pf.Gerald TOPICAL 12/22/22 05:01 10 ml ONCE ONE Administration Metoprolol Tartrate 2.5 mg 12/22/22 05:31 12/22/22 05:38 Metoprolol Tartrate 5 Mg/5 Ml Vial IVPUSH 12/22/22 05:32 2.5 mg ONCE ONE Administration Medical Decision Making Medical Decision Making MDM Narrative: 67 yo male with PMH of suprapubic catheter, complicated UTI, 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 He has stable VS at this time basic labs, VS and CT scan for catheter placement ordered, type and screen ordered. Will not irrigate until I can confirm placement. Differential Diagnosis Differential Diagnoses: The differential diagnosis associated with the presentation includes hematuria, dislodgement of finley, misplacement of catheter Admission/Observation Consideration of admission/observation: Escalation of care including admission/observation considered admit for monitoring and hematuria Consult Healthcare Provider Management of the patient was discussed with: Pet House Sitter Lab Data [facility] Lab Attestation statement: I reviewed the patient's lab results. 12/22/22 05:02 12/22/22 01:29 Labs: Lab Results 12/22/22 12/22/22 12/22/22 Range/Units 01:29 01:40 02:25 WBC 6.7 (4.8-10.8) X10*3/uL RBC 3.80 L D (4.60-5.80) X10*6/uL Hgb 12.1 L D (14.0-18.0) g/dl Hct 36.0 L D (42.0-52.0) % MCV 94.7 (80.0-98.0) fL MCH 31.8 (27.0-33.0) pg MCHC 33.6 (31.0-36.0) g/dl RDW 13.9 (11.0-16.0) % Plt Count 142 L (160-400) X10*3/uL MPV 9.6 (9.4-12.4) fL Immature Gran % (Auto) 0.3 (0.0-0.4) % Neut % (Auto) 67.0 (45-73) % Lymph % (Auto) 23.6 (20-40) % Forrest % (Auto) 5.4 (2-11) % Eos % (Auto) 3.4 (0-4) % Baso % (Auto) 0.3 (0-2) % Lymph # (Auto) 1.6 (1.2-4.9) X10*3/uL Forrest # (Auto) 0.4 (0.1-1.2) X10*3/uL Eos # (Auto) 0.2 (0.0-0.4) X10*3/uL Baso # (Auto) 0.0 (0.0-0.2) X10*3/uL Abs Immat Gran (auto) 0.02 (0.00-0.03) X10*3/uL Absolute Neuts (auto) 4.5 (2.0-8.3) x10*3/uL Absolute Nucleated RBC 0.000 (0.0-0.012) X10*3/uL Nucleated RBC % (auto) 0.0 (0.0-0.2) /100WBC PT 36.7 H (11.1-13.3) SEC INR 3.0 H (0.9-1.1) Sodium 142 (135-145) mmol/L Potassium 3.4 (3.3-5.1) mmol/L Chloride 108 (96-108) mmol/L Carbon Dioxide 23 (22-29) mmol/L Anion Gap 14 (12-20) BUN 22 H (9-16) mg/dL Creatinine 0.96 (0.5-1.4) mg/dL Estim Creat Clear Calc 91.8 Estimated GFR > 60 Random Glucose 105 (60-115) mg/dL Lactic Acid (0.5-2.0) mmol/L Calcium 9.2 D (8.4-10.2) mg/dL Magnesium 2.1 (1.6-2.6) mg/dL Total Bilirubin 0.9 (0.0-1.0) mg/dL Direct Bilirubin 0.3 (0.0-0.5) mg/dL AST 21 (5-37) U/L ALT 25 (0-40) U/L Alkaline Phosphatase 97 (39-117) U/L Total Protein 6.5 (6.5-8.0) g/dL Albumin 3.2 L (3.5-5.0) g/dL Urine Color Urine Appearance Urine pH (5.0-9.0) Ur Specific Bowman (1.005-1.025) Urine Protein (Neg-Trace) mg/dL Urine Glucose (UA) (Negative) mg/dL Urine Ketones (Negative) mg/dL Urine Blood (Negative) Urine Nitrite (Negative) Ur Leukocyte Esterase (Negative) Urine RBC (0-2) /HPF Urine WBC (0-5) /HPF Ur Squamous Epith Cells (0-2) /HPF Urine Bacteria (None Seen) Hyaline Casts (0-2) /LPF Blood Type Cancelled A Positive Antibody Screen Cancelled NEGATIVE Crossmatch See Detail 12/22/22 12/22/22 12/22/22 Range/Units 03:12 04:15 05:02 WBC 9.6 (4.8-10.8) X10*3/uL RBC 3.76 L (4.60-5.80) X10*6/uL Hgb 12.1 L (14.0-18.0) g/dl Hct 36.4 L (42.0-52.0) % MCV 96.8 (80.0-98.0) fL MCH 32.2 (27.0-33.0) pg MCHC 33.2 (31.0-36.0) g/dl RDW 13.9 (11.0-16.0) % Plt Count 145 L (160-400) X10*3/uL MPV 9.6 (9.4-12.4) fL Immature Gran % (Auto) 0.3 (0.0-0.4) % Neut % (Auto) 86.7 H (45-73) % Lymph % (Auto) 11.5 L (20-40) % Forrest % (Auto) 0.8 L (2-11) % Eos % (Auto) 0.5 (0-4) % Baso % (Auto) 0.2 (0-2) % Lymph # (Auto) 1.1 L (1.2-4.9) X10*3/uL Forrest # (Auto) 0.1 (0.1-1.2) X10*3/uL Eos # (Auto) 0.1 (0.0-0.4) X10*3/uL Baso # (Auto) 0.0 (0.0-0.2) X10*3/uL Abs Immat Gran (auto) 0.03 (0.00-0.03) X10*3/uL Absolute Neuts (auto) 8.2 (2.0-8.3) x10*3/uL Absolute Nucleated RBC 0.000 (0.0-0.012) X10*3/uL Nucleated RBC % (auto) 0.0 (0.0-0.2) /100WBC PT (11.1-13.3) SEC INR (0.9-1.1) Sodium (135-145) mmol/L Potassium (3.3-5.1) mmol/L Chloride (96-108) mmol/L Carbon Dioxide (22-29) mmol/L Anion Gap (12-20) BUN (9-16) mg/dL Creatinine (0.5-1.4) mg/dL Estim Creat Clear Calc Estimated GFR Random Glucose (60-115) mg/dL Lactic Acid 1.2 (0.5-2.0) mmol/L Calcium (8.4-10.2) mg/dL Magnesium (1.6-2.6) mg/dL Total Bilirubin (0.0-1.0) mg/dL Direct Bilirubin (0.0-0.5) mg/dL AST (5-37) U/L ALT (0-40) U/L Alkaline Phosphatase (39-117) U/L Total Protein (6.5-8.0) g/dL Albumin (3.5-5.0) g/dL Urine Color Red A Urine Appearance Turbid Urine pH 5.5 (5.0-9.0) Ur Specific Bowman >= 1.030 H (1.005-1.025) Urine Protein 100 (2+) H (Neg-Trace) mg/dL Urine Glucose (UA) Negative (Negative) mg/dL Urine Ketones Negative (Negative) mg/dL Urine Blood Large (3+) H (Negative) Urine Nitrite Negative (Negative) Ur Leukocyte Esterase Large (3+) H (Negative) Urine RBC >20 H (0-2) /HPF Urine WBC >50 H (0-5) /HPF Ur Squamous Epith Cells 0-2 (0-2) /HPF Urine Bacteria 1+ (None Seen) Hyaline Casts 0-2 (0-2) /LPF Blood Type Antibody Screen Crossmatch Independent Interpretation I performed an independent interpretation of an: EKG and CT Scan Interpretation: Rate: 150 Rhythm: regular [place]: normal Normal P waves. Normal DAVID. Normal QRS complex. ST T wave : nonspecific, no MAYNOR qTC: normal prior studies: changed from prior The study has been interpreted contemporaneously by me. . Radiology Impression Discussion of test interpretation with radiology: I have reviewed the radiologist's reading. Independent Historian Clinical information obtained from an independent historian. History obtained from or confirmed by: EMS External Record Review External record reviewed: Inpatient record Critical Care Time Critical Care Time Critical Care Time: Yes Total Critical Care Time: 60 Attestation: repeat bedside assessments of bleeding, transfusion, IV lopressor for tachycardia, consult I attest to this time spent taking care of the patient Discharge Plan Discharge Clinical Impression: Hemorrhage of prostate, Acute UTI Patient Disposition: Admitted As Inpatient
[2022-12-22 01:33] LABS: Basophils Percent Auto 0.3 % (0-2); Mean Platelet Volume 9.6 fL (9.4-12.4); PLT CLUMP 1; Red Cell Distribution Width 13.9 % (11.0-16.0); SCAN SMEAR FLAG 1
[2022-12-22 01:35] LABS: Eosinophils Absolute Auto 0.2 X10*3/uL (0.0-0.4); Eosinophils Percent Auto 3.4 % (0-4); Hemoglobin 12.1 g/dl (14.0-18.0); Imm Gran Abs Auto 0.02 X10*3/uL (0.00-0.03); Imm Gran Pct Auto 0.3 % (0.0-0.4); Lymphocytes Absolute Auto 1.6 X10*3/uL (1.2-4.9); Lymphocytes Percent Auto 23.6 % (20-40); Mean Corpuscular HGB Conc 33.6 g/dl (31.0-36.0); Mean Corpuscular Hemoglobin 31.8 pg (27.0-33.0); Mean Corpuscular Volume 94.7 fL (80.0-98.0); Monocytes Absolute Auto 0.4 X10*3/uL (0.1-1.2); Monocytes Percent Auto 5.4 % (2-11); Neutrophils Absolute Auto 4.5 x10*3/uL (2.0-8.3)
[2022-12-22 01:36] LABS: MANUAL DIFF FLAG NO; Platelet Count 142 X10*3/uL (160-400); White Blood Count 6.7 X10*3/uL (4.8-10.8)
[2022-12-22 01:40] LABS: Prothrombin Time 36.7 SEC (11.1-13.3)
--- NOTE | 2022-12-22 01:48 | PC.NURSE ---
[facility] blood in supra-pubic catheter, starting 1 hr [employer], hx of the same. Pt nonverbal at baseline, pt on blood thinners. catheter was changed due to blockage on 3-11 shift, jessica blood with cots noted in tubing, flushed with 60cc of NS and continued to drain jessica red blood with clots Supra-pubic cath noted to have dark red blood with large clots, IV line placed in LAC labs drawn and sent to lab, pt changed over to hospital attire. Pt had a large green liquid/semi soft stool, incontinent care provided. quarter sized coccyx wound noted, per staff dressing change is applied daily.
[2022-12-22 01:49] LABS: Alanine Aminotransferase 25 U/L (0-40); Albumin Level 3.2 g/dL (3.5-5.0); Alkaline Phosphatase 97 U/L (39-117); Anion Gap 14 (12-20); Aspartate Amino Transferase 21 U/L (5-37); Bilirubin Direct 0.3 mg/dL (0.0-0.5); Bilirubin Total 0.9 mg/dL (0.0-1.0); Blood Urea Nitrogen 22 mg/dL (9-16); Calcium 9.2 mg/dL (8.4-10.2); Carbon Dioxide 23 mmol/L (22-29); Chloride 108 mmol/L (96-108); Creatinine Clr Calc Pharmacy 91.8; Estimated Glomerular Filt Rate > 60; Glucose Random 105 mg/dL (60-115); Magnesium 2.1 mg/dL (1.6-2.6); Potassium 3.4 mmol/L (3.3-5.1); Sodium 142 mmol/L (135-145); Total Protein 6.5 g/dL (6.5-8.0)
[2022-12-22] MEDS: iohexoL 350 MG/ML 100 ML INFUS..BTL 85 ML IV (02:26)
[2022-12-22] MEDS: cefTRIAXone sodium 2 GM in 0.9 % Sodium Chloride 50 ML IV (03:13)
[2022-12-22 03:25] LABS: Lactic Acid 1.2 mmol/L (0.5-2.0)
[2022-12-22 04:21] LABS: Appearance Urine Turbid; Color Urine Red; Glucose Urine UA Negative (Negative); Leukocyte Esterase Urine Large (3+) (Negative); Nitrite Urine Negative (Negative); PH 5.5 (5.0-9.0); Specific Gravity - Urine >= 1.030 (1.005-1.025); UMIC TRIGGER UACC YES; Urine Blood Large (3+) (Negative); Urine Ketones Negative (Negative); Urine Protein 100 (2+) mg/dL (Neg-Trace)
--- NOTE | 2022-12-22 04:24 | PC.NURSE ---
On removal of old catheter, BRB coming from penis, tip of shaft noted to be split down the middle. New Suprapubic catheter 16 fr with 20cc NS in balloon, placed by Dr. Gardiner, Pt tolerated well. suprapubic catheter is draining light pink urine, with no clots. Pt continues to bleed from penis, Dr. Gardiner. Orders to hold CBI at this time.
[2022-12-22 04:25] LABS: Bacteria Urine 1+ (None Seen); Hyaline Casts Urine 0-2 /LPF (0-2); RBC Urine >20 /HPF (0-2); Squamous Epithelial Cell Urine 0-2 /HPF (0-2); UACC Culture Trigger YES; WBC Urine >50 /HPF (0-5)
[2022-12-22] MEDS: 0.9 % Sodium Chloride 1,000 ML 75 ML IVCONT ×2 (04:36→12:16)
[2022-12-22] MEDS: Lidocaine HCl 2 % Urojet 10 ML JEL.PF.APP TOPICAL (05:04)
[2022-12-22 05:07] LABS: Basophils Percent Auto 0.2 % (0-2); Mean Platelet Volume 9.6 fL (9.4-12.4); Monocytes Absolute Auto 0.1 X10*3/uL (0.1-1.2); Monocytes Percent Auto 0.8 % (2-11); Neutrophils Absolute Auto 8.2 x10*3/uL (2.0-8.3); PLT CLUMP 1; Red Cell Distribution Width 13.9 % (11.0-16.0); SCAN SMEAR FLAG 1
[2022-12-22 05:09] LABS: Eosinophils Absolute Auto 0.1 X10*3/uL (0.0-0.4); Eosinophils Percent Auto 0.5 % (0-4); Hematocrit 36.4 % (42.0-52.0); Hemoglobin 12.1 g/dl (14.0-18.0); Imm Gran Abs Auto 0.03 X10*3/uL (0.00-0.03); Imm Gran Pct Auto 0.3 % (0.0-0.4); Lymphocytes Absolute Auto 1.1 X10*3/uL (1.2-4.9); Lymphocytes Percent Auto 11.5 % (20-40); MANUAL DIFF FLAG NO; Mean Corpuscular HGB Conc 33.2 g/dl (31.0-36.0); Mean Corpuscular Hemoglobin 32.2 pg (27.0-33.0); Mean Corpuscular Volume 96.8 fL (80.0-98.0); Neutrophils Percent Auto 86.7 % (45-73); Platelet Count 145 X10*3/uL (160-400); Red Blood Count 3.76 X10*6/uL (4.60-5.80); White Blood Count 9.6 X10*3/uL (4.8-10.8)
--- NOTE | 2022-12-22 05:13 | ECG_ITS ---
Test Reason : tachycardia Blood Pressure : / mmHG Vent. Rate : 150 BPM Atrial Rate : 150 BPM P-R Int : 138 ms QRS Dur : 080 ms QT Int : 288 ms P-R-T Axes : 055 076 -13 degrees QTc Int : 455 ms Sinus tachycardia RSR' or QR pattern in V1 suggests right ventricular conduction delay ST & T wave abnormality, consider inferior ischemia Abnormal ECG When compared with ECG of 14-FEB-2022 12:02, Vent. rate has increased BY [address] no longer elevated in Inferior leads T wave inversion now evident in Inferior leads Referred By: Jennifer Gardiner Electronically Signed By:KAMILA CRAWLEY MD
--- NOTE | 2022-12-22 05:20 | PC.NURSE ---
Pt heart rate in the 150s, Provider Abdifatah lucero. EKG ordered, and currently being obtained.
[2022-12-22] MEDS: Metoprolol Tartrate 5 MG/5 ML VIAL 2.5 MG IVPUSH (05:38)
--- NOTE | 2022-12-22 06:24 | PC.NURSE ---
First unit of blood started, pt tolerating well, no apparent SOB, or adverse reaction noticed. [facility] rehab called, and updated with the plan of care.
--- NOTE | 2022-12-22 06:51 | PC.NURSE ---
Tex silverman in Pyxis, pharmacy called, and will bring down.
[2022-12-22] MEDS: Acetaminophen Supp 325 MG SUPP.RECT PR (07:29)
[2022-12-22] MEDS: levETIRAcetam Oral Soln 500 MG/5 ML 250 MG PO ×2 (07:37→20:39)
--- NOTE | 2022-12-22 07:39 | PC.NURSE ---
patient resting in bed, morning vitals completed by RN showing pt has fever. TN tylenol given per MD MILAGROS aware. blood running at 100ml ml/hr, 75ml/hr of NS patient had episode of diarrhea, noted to have bloody pads beneath him. patient has clotted blood coming from around his penis. patient has suprapubic catheter in place, draining 350ml of red tinged urine noted to have sediment. patient able to follow commands, is not verbal. call giraldo within reach
--- NOTE | 2022-12-22 08:03 | PHA.MEDREC ---
Pharmacy Consult ? Medication Reconciliation Pharmacy has completed the medication reconciliation.PHARMACY HAS REVIEWED THE MED REC DONE BY NURSING
--- NOTE | 2022-12-22 11:38 | PC.NURSE ---
patient noted to be hypotensive, admitting provider requested bolus NS. NS running 999 ml/hr on pump
--- NOTE | 2022-12-22 11:39 | P.HPHOSP_ITS ---
History of Present Illness Date of Service: 12/22/22 Attending physician on admission: Ambrose Pyle Chief Complaint: gross hematuria 67-year-old male with history of hypertension, hyperlipidemia, unspecified atrial fibrillation, history of osteomyelitis, history of CVA with sequela of right-sided hemiplegia/hemiparesis, dysphagia and neurogenic bladder, BPH, stage IV sacral ulcer presented to the ED from [facility] where he resides for evaluation of gross hematuria. The patient has a suprapubic catheter in place which was changed on the evening shift last night and developed jessica blood from the catheter shortly after insertion. The patient is unable to verbalize much but denies any complaints. On arrival, patient was tachycardic to 150, with soft blood pressures but no hypotension. He was briefly febrile to 101.0 likely 2/2 transfusion. There is no leukocytosis. On arrival, H/H 12.1/36.0%. Due to jessica blood, he was transfused 1 unit and H/H remained 12.1/30 6.4%. Renal function electrolytes were normal. Urinalysis significant for 3+ leukocytes, 3+ blood, 2+ protein, elevated specific gravity, positive urinary sediment, 1+ bacteria. Urine culture is pending. Urology was consulted from the ED and evaluated patient. Suprapubic catheter was replaced and tourniquet was placed around penis with cessation of bleeding. Tourniquet has since been removed without recurrence of symptoms. In the ED, received [place] tylenol, 1 L IV NS, 2 g IV Rocephin, and 250 mg Keppra. Review of Systems 2 Review of Systems: Yes Unobtainable due to mental condition [facility] Medical History Seizure disorder Chronic constipation Decubitus ulcer of sacral area Osteomyelitis Septic shock C. 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 Mother No problems noted. Surgical History No pertinent past surgical history Social History Household Members: Other Household Members Other:: resides at [facility] DavidMICHAEL Dinh ([phone]) Housing: Assisted Are you a primary healthcare risk control consultant to a significant other at home: No Do you presently have visiting nurse or other home services: No Unable to assess alcohol history related to: Unknown Alcohol intake: never Patient Tobacco Use Status: Tobacco use Unknown Smoked in Last 30 Days: No Use of substances other than those prescribed or required for medical reasons: No Advance Directives: Yes Advance Directives on File: Yes Advance Directives Date on File: 07/25/21 service: No Current occupational status: disabled Meds Allergies Allergy/AdvReac Type Severity Reaction Status Date / Time No Known Allergies Allergy Verified 12/22/22 01:21 [No Known Allergies*] Active Medications: Current Medications Sodium Chloride (Ns) 1,000 mls @ 75 mls/hr IVCONT .[id number] KEE Last Admin: 12/22/22 04:36 Dose: 75 mls/hr Home Medications Medication Instructions Recorded Confirmed Last Taken Type amlodipine 5 mg tablet 5 mg PO DAILY 06/20/20 12/22/22 02/14/22 History acetaminophen 325 mg tablet 650 mg PO Q4H PRN fever/pain 02/16/21 12/22/22 Unknown History bisacodyl 10 mg rectal suppository 10 mg [place] DAILY PRN Constipation 02/16/21 12/22/22 Unknown History calcium carbonate 600 mg-vitamin 1 tab PO BID 02/16/21 12/22/22 02/14/22 History D3 5 mcg (200 unit) tablet lidocaine 5 % topical patch 1 patch topical DAILY 02/16/21 12/22/22 02/14/22 History magnesium hydroxide 400 mg/5 mL 30 ml PO DAILY PRN Constipation 02/16/21 12/22/22 Unknown History oral suspension (Milk of Magnesia) levetiracetam 100 mg/mL oral 2.5 ml PO BID 02/26/21 12/22/22 02/14/22 History solution naloxone 4 mg/actuation nasal spray 4 mg intranasal ONCE PRN Opioid 02/26/21 12/22/22 Unknown History Overdose atorvastatin 80 mg tablet 80 mg PO DAILY 01/26/22 12/22/22 02/14/22 History rivaroxaban 20 mg tablet (Xarelto) 20 mg PO DAILY@1700 01/26/22 12/22/22 02/14/22 History magnesium citrate 150 ml PO DAILY PRN Constipation 02/15/22 12/22/22 Unknown History oxycodone 5 mg tablet 5 mg PO Q6H PRN Pain 02/15/22 12/22/22 Unknown History sodium phosphates 19 gram-7 118 ml [place] DAILY PRN Constipation 02/15/22 12/22/22 Unknown History gram/118 mL enema (Fleet Enema) acetaminophen 325 mg tablet 650 mg PO BEDTIME 10/03/22 12/22/22 Unknown History (Tylenol) acetic acid 0.25 % irrigation 50 ml irrigation TUTHSA@2100 10/03/22 12/22/22 Unknown History solution ferrous sulfate 325 mg (65 mg 325 mg PO DAILY 12/22/22 12/22/22 Unknown History iron) tablet potassium chloride 20 mEq oral 20 meq PO DAILY 12/22/22 12/22/22 Unknown History packet Physical Exam 2 Vital Signs and Narrative: Vital Signs: Last Vital Signs Temp 98.4 F 12/22/22 09:38 Pulse 90 12/22/22 09:38 Resp 17 12/22/22 09:38 BP 97/65 12/22/22 09:38 Pulse Ox 96 12/22/22 09:11 O2 Del Method Room Air 12/22/22 09:11 BMI result Body Mass Index 39.5 Constitutional - Awake and Alert, No apparent distress Eyes - PERRLA, EOMI Cardiovascular - S1S2, RRR, No edema Respiratory - Normal lung expansion, Normal respiratory effort, No respiratory distress, CTA bilaterally Gastrointestinal - NT / ND; +BS; No rebound or guarding : suprapubic catheter in place draining clear/yellow urine, no bleeding Extremities - no calf tenderness bilaterally, no swelling Skin - Warm/Dry Neurological - Alert & non verbal, 4/5 strength LUE, LLE. 0/5 RUE, RLE Psychological - Appropriate affect Results Labs 12/22/22 05:02 12/22/22 01:29 Labs: Laboratory Results - last 24 hr 12/22/22 12/22/22 12/22/22 01:29 01:40 02:25 MCV 94.7 MCH 31.8 MCHC 33.6 RDW 13.9 Plt Count 142 L MPV 9.6 Immature Gran % (Auto) 0.3 Neut % (Auto) 67.0 Lymph % (Auto) 23.6 Banner % (Auto) 5.4 Eos % (Auto) 3.4 Baso % (Auto) 0.3 Lymph # (Auto) 1.6 Banner # (Auto) 0.4 Eos # (Auto) 0.2 Baso # (Auto) 0.0 Abs Immat Gran (auto) 0.02 Absolute Neuts (auto) 4.5 Absolute Nucleated RBC 0.000 Nucleated RBC % (auto) 0.0 PT 36.7 H INR 3.0 H Anion Gap 14 Estim Creat Clear Calc 91.8 Estimated GFR > 60 Random Glucose 105 Lactic Acid Calcium 9.2 D Magnesium 2.1 Total Bilirubin 0.9 Direct Bilirubin 0.3 AST 21 ALT 25 Alkaline Phosphatase 97 Total Protein 6.5 Albumin 3.2 L Urine Color Urine Appearance Urine pH Ur Specific [place] Urine Protein Urine Glucose (UA) Urine Ketones Urine Blood Urine Nitrite Ur Leukocyte Esterase Urine RBC Urine WBC Ur Squamous Epith Cells Urine Bacteria Hyaline Casts Blood Type Cancelled A Positive Antibody Screen Cancelled NEGATIVE Crossmatch See Detail 12/22/22 12/22/22 12/22/22 03:12 04:15 05:02 MCV 96.8 MCH 32.2 MCHC 33.2 RDW 13.9 Plt Count 145 L MPV 9.6 Immature Gran % (Auto) 0.3 Neut % (Auto) 86.7 H Lymph % (Auto) 11.5 L Banner % (Auto) 0.8 L Eos % (Auto) 0.5 Baso % (Auto) 0.2 Lymph # (Auto) 1.1 L Banner # (Auto) 0.1 Eos # (Auto) 0.1 Baso # (Auto) 0.0 Abs Immat Gran (auto) 0.03 Absolute Neuts (auto) 8.2 Absolute Nucleated RBC 0.000 Nucleated RBC % (auto) 0.0 PT INR Anion Gap Estim Creat Clear Calc Estimated GFR Random Glucose Lactic Acid 1.2 Calcium Magnesium Total Bilirubin Direct Bilirubin AST ALT Alkaline Phosphatase Total Protein Albumin Urine Color Red A Urine Appearance Turbid Urine pH 5.5 Ur Specific [place] [employer] >= 1.030 H Urine Protein 100 (2+) H Urine Glucose (UA) Negative Urine Ketones Negative Urine Blood Large (3+) H Urine Nitrite Negative Ur Leukocyte Esterase Large (3+) H Urine RBC >20 H Urine WBC >50 H Ur Squamous Epith Cells 0-2 Urine Bacteria 1+ Hyaline Casts 0-2 Blood Type Antibody Screen Crossmatch Imaging Radiologist's Impressions: Impressions Abdomen/Pelvis CT 12/22/22 02:29 IMPRESSION: Apparent indwelling suprapubic catheter in place which extends through the urinary bladder with the apparent balloon of the catheter terminating in the lower prostate/ureter. Retained stool within the right colon. Distended gas-filled remaining colon. Mild rectal thickening possibly a mild proctitis. Bilateral renal calculi. Bilateral mild hydronephrosis and hydroureter extending to the pelvis without ureteral calculi. Suspect outlet obstruction. There are small pericardial effusion. Fleischner guidelines were followed. Assessment and Plan (1) Acute UTI: Status: Acute (2) Hemorrhage of prostate: Status: Acute Plan 67-year-old male with history of hypertension, hyperlipidemia, unspecified atrial fibrillation, history of osteomyelitis, history of CVA with sequela of right-sided hemiplegia/hemiparesis, dysphagia and neurogenic bladder, BPH, stage IV sacral ulcer to be observed for jessica hematuria. #Acute blood loss anemia secondary to gross hematuria -due to suprapubic catheter placement into prostate. Catheter replaced with tourniquet placed around penis with resolution of bleeding. Tourniquet removed -transfuse 1 unit packed red blood cells -draining clear/yellow urine from the suprapubic catheter at this time -H/H stable -monitor on telemetry -follow H/H -outpatient follow-up Dr. Sevilla -urology consult # acute UTI -UA with 3+ leukocytes, negative nitrites, 3+ blood, positive urinary sediment, 1+ bacteria -IV ceftriaxone -follow cultures #SIRS criteria -fever 101.0- transfusion reaction -Tachycardia- likely 2/2 hemorrhage as above- resolved -not sepsis #Orthostatic hypotension -given IVF and 5mg midodrine -Monitor BPs # hypertension -blood pressure is soft, hold amlodipine and losartan # paroxysmal atrial fibrillation -hold Xarelto in the setting of acute hematuria # constipation -continue home meds # unspecified seizure disorder -continue Keppra # BPH -continue Flomax DVT prophylaxis- SCPs Full code per MOLST form Time Spent With Patient Time: Total time managing care of this patient today ____ minutes. Quality Stroke Does the patient have a stroke diagnosis?: No VTE Prior VTE?: No VTE Risk Level:: Medical - moderate - high VTE Device Contraindication: N/A - Device Ordered VTE Drug Contraindication: Treatment Not Indicated
[2022-12-22] MEDS: Midodrine HCl 5 MG TABLET PO (12:03)
--- NOTE | 2022-12-22 15:25 | HO.WOUND ---
Wound Consult: Initial 67yr old male admitted to [facility] [place] on?12/22/22 12:06 - See progress notes and H&P for detailed history. Request for assessment by direct care admitting nurse for coccyx wound POA. Coccyx Etiology: Stage 3 Pressure Injury POA (Present on Admission) Measurements: 3cm x 1.5cm x 0.2cm Wound Bed: moist full thickness tissue loss with red and dark maroon pigmentation Drainage / Odor: Small amount of serosang - no odor noted Edges: ? epibole and macerated Bonny wound: ? dark purple nonblanchable tissue (Deep Tissue Injury), red pink erythema slow to vince - evidence of previsou full thickness injury as evidence by scar tissue No Induration, No Fluctuance, No Warmth Goals of Treatment: ? Off Load Pressure and Durafiber AG for Moisture Management and antimicrobial properties - foam to aid in off loading and protect from friction Recommendations: 1. Turn and Reposition every 2 hours and as needed for patient comfort consider use of wedges available in the storeroom. 2. Off Load all bony prominences with use of pillows, wedges and heel boots. 3. Monitor for incontinence and moisture control. 4. Provide adequate and supplemental nutrition. 5. Order low air loss mattress. 6. Coccyx - Off Load Pressure - Cleanse with NS, pat dry. Apply skin prep to periwound. Apply cut to size Durafiber AG cover with foam dressing. Change Daily and PRN for soiling. Re-consult wound care Nurse for wound deterioration or wound changes.
[2022-12-22] MEDS: 0.9 % Sodium Chloride Flush 3 ML SYRINGE IVFLUSH ×2 (15:30→23:37)
[2022-12-22] MEDS: Calcium + Vitamin D 250 MG TABLET 500 MG PO (20:23)
[2022-12-22] MEDS: Psyllium seed 3.7 GM PACKET PO (20:24)
[2022-12-22] MEDS: Gabapentin 300 MG CAPSULE PO (20:24)
[2022-12-22] MEDS: Tamsulosin HCL 0.4 MG CAPSULE PO (20:24)
[2022-12-23] VITALS (7 sets, daily range): BP systolic 97–121; BP diastolic 59–78; PULSE 54–79; RESP 16–20; TEMP 36.1–37.2; O2SAT 94–99; BMI 39.5
[2022-12-23] MEDS: 0.9 % Sodium Chloride 1,000 ML 75 ML IVCONT ×2 (01:37→16:47)
[2022-12-23] MEDS: cefTRIAXone sodium 1 GM in 0.9 % Sodium Chloride 50 ML IV (02:44)
[2022-12-23] MEDS: Lidocaine 4 % Patch ADH..PATCH 1 PATCH TRANSDERMA (09:21)
[2022-12-23] MEDS: Potassium Chloride Packet 20 MEQ PACKET PO (09:22)
[2022-12-23] MEDS: Calcium + Vitamin D 250 MG TABLET 500 MG PO ×2 (09:24→20:41)
[2022-12-23] MEDS: levETIRAcetam Oral Soln 500 MG/5 ML 250 MG PO ×2 (09:24→20:41)
[2022-12-23] MEDS: Ferrous Sulfate 324 MG TABLET.DR PO (09:25)
[2022-12-23] MEDS: amLODIPine Besylate 5 MG TABLET PO (09:25)
[2022-12-23] MEDS: Methenamine Hippurate 1 GM TABLET PO (09:25)
[2022-12-23] MEDS: Atorvastatin Calcium 80 MG TABLET PO (09:26)
[2022-12-23] MEDS: Losartan Potassium 50 MG TABLET 100 MG PO (09:26)
[2022-12-23] MEDS: Ascorbic Acid 500 MG TABLET 1000 MG PO (09:26)
[2022-12-23] MEDS: 0.9 % Sodium Chloride Flush 3 ML SYRINGE IVFLUSH ×2 (09:27→16:47)
--- NOTE | 2022-12-23 09:41 | HO.WOUND ---
Wound Consult: Follow up 67yr old [place] [facility] [place]12[place]22[place]22 12:06 - Request for assistance by direct care INPATIENT AUDITOR for coccyx wound POA. Coccyx Etiology: Stage 3 Pressure Injury POA (Present on Admission) Wound Bed: moist full thickness tissue loss with red and dark maroon pigmentation Drainage / Odor: Small amount of serosang - no odor noted Edges: ? epibole and macerated Bonny wound: ? dark purple nonblanchable tissue (Deep Tissue Injury) with induration noted, red pink erythema slow to vince - evidence of previous full thickness injury as evidence by scar tissue formation No Fluctuance, No Warmth noted Goals of Treatment: ? Off Load Pressure and Durafiber AG for Moisture Management and antimicrobial properties - foam to aid in off loading and protect from friction Bilateral Ischium intact evidence of previsou injury noted with scar and pigmentation changes noted - Preventative foams applied due to patients bony prominences. Suprapubic Cath assessed - Red moist hypergranulation tissue noted - Cath not secured at the time of assessment - Provider to assess for need of Silver nitrate to treat Hypergranulation tissue - however given the amount of hypergranulation tissue observed serial treatments would likely be needed. Area cleansed and skin prep applied - recommend dry gauze to absorb excess moisture, change twice a day and PRN. Secure cath with commercial securement device to prevent movement, this will aid in decreased development of Hypergranulation tissue. Recommendations: 1. Turn and Reposition every 2 hours and as needed for patient comfort consider use of wedges available in the storeroom. 2. Off Load all bony prominences with use of pillows, wedges and heel boots. 3. Monitor for incontinence and moisture control. 4. Provide adequate and supplemental nutrition. 5. Order low air loss mattress. 6. Coccyx - Off Load Pressure - Cleanse with NS, pat dry. Apply skin prep to periwound. Apply cut to size Durafiber AG cover with foam dressing. Change Daily and PRN for soiling. 7. Suprapubic Cath Site - Cleans with soap and water wipes dry well. Apply skin prep - recommend dry gauze to absorb excess moisture secure with tape, change twice a day and PRN. Secure cath with commercial securement device to prevent movement, this will aid in decreased development of Hypergranulation tissue. Re-consult wound care Nurse for wound deterioration or wound changes.
--- NOTE | 2022-12-23 10:40 | MHC.CM.PN ---
IMM DELIVERED TO PT'S SON/HCP NATALIE PALMA AT NUMBER ON FILE, PER NATALIE PLAN IS FOR PT TO RETURN TO LTC AT [facility] WHEN MEDICALLY CLEARED, PCP AND HCP ON FILE VERIFIED AND CORRECT, RETURN TO SNF REFERRAL SENT AND CM WILL CONT TO FOLLOW DC NEEDS
--- NOTE | 2022-12-23 15:14 | HO.PM.IMPN ---
Subjective Subjective Date of Service: 12/23/22 Interval History: seen and evaluatyed hematuria clearing pending cultures denies fever non verbal Review of Systems Review of Systems: Yes Unobtainable due to mental condition Physical Exam Vital Signs: Vital Signs: Last Vital Signs Temp 98.5 F 12/23/22 11:13 Pulse 65 12/23/22 11:13 Resp 20 12/23/22 11:13 BP 103/59 L 12/23/22 11:13 Pulse Ox 97 12/23/22 11:13 O2 Del Method Room Air 12/23/22 11:13 BMI result Body Mass Index 39.5 Const: Other: Constitutional : Awake, interactive, not in distress Neck : Normal inspection, Supple Cardiovascular : RRR, no JVP, no lower extremity edema Respiratory : good bilateral air entry, no crackles, wheezes or rhonchi Gastrointestinal: soft, lax, Normal bowel sounds, Non tender Skin : Warm, Dry, stage 3 decubetus ulcer which is not infected Urology: stable suprapubic cath with clear urine. no tenderness. No warmth or surrounding erythema Neurological : non-verbal, paraplegic , alert Objective Data Active Medications Acetaminophen (Acetaminophen 325 Mg Tablet) 650 mg PO Q6H PRN PRN Reason: Pain, Mild (Pain Scale 1-3) Acetic Acid (Acetic Acid 0.25 % Irrigation 1,000 Ml Irrig.Soln) 1 appl TOPICAL TUTHSA@2100 [facility]; Protocol Last Admin: 12/22/22 20:24 Dose: Not Given Documented By: DAVID Non-Admin Reason: Med Not Available Amlodipine Besylate (Amlodipine Besylate 5 Mg Tablet) 5 mg PO DAILY [facility]; Protocol Last Admin: 12/23/22 09:25 Dose: 5 mg Documented By: JIM Ascorbic Acid (Ascorbic Acid 500 Mg Tablet) 1,000 mg PO DAILY [facility] Last Admin: 12/23/22 09:26 Dose: 1,000 mg Documented By: JIM Atorvastatin Calcium (Atorvastatin Calcium 80 Mg Tablet) 80 mg PO DAILY [facility] Last Admin: 12/23/22 09:26 Dose: 80 mg Documented By: JIM Bisacodyl (Bisacodyl 10 Mg Supp.Rect) 10 mg GA DAILY PRN PRN Reason: Constipation Calcium Carbonate/Cholecalciferol (Calcium + Vitamin D 250 Mg Tablet) 500 mg PO BID [facility] Last Admin: 12/23/22 09:24 Dose: 500 mg Documented By: JIM Docusate Sodium (Docusate Sodium 100 Mg Capsule) 100 mg PO DAILY PRN PRN Reason: Constipation Ferrous Sulfate (Ferrous Sulfate 324 Mg Tablet.Dr) 324 mg PO DAILY [facility] Last Admin: 12/23/22 09:25 Dose: 324 mg Documented By: JIM Gabapentin (Gabapentin 300 Mg Capsule) 300 mg PO BEDTIME [facility] Last Admin: 12/22/22 20:24 Dose: 300 mg Documented By: DAVID Sodium Chloride (Ns) 1,000 mls @ 75 mls/hr IVCONT .[id number] [facility] Last Admin: 12/23/22 01:37 Dose: 75 mls/hr Documented By: PENNIE Ceftriaxone Sodium 1 gm/ (Sodium Chloride) 50 mls @ 100 mls/hr IV Q24H [facility] Last Infusion: 12/23/22 04:15 Dose: Infused Documented By: PENNIE Levetiracetam (Levetiracetam Oral Soln 500 Mg/5 Ml) 250 mg PO BID [facility] Last Admin: 12/23/22 09:24 Dose: 250 mg Documented By: JIM Lidocaine (Lidocaine 4 % Patch Adh..Patch) 1 patch TRANSDERMA DAILY [facility] Last Admin: 12/23/22 09:21 Dose: 1 patch Documented By: JIM Losartan Potassium (Losartan Potassium 50 Mg Tablet) 100 mg PO DAILY [facility]; Protocol Last Admin: 12/23/22 09:26 Dose: 100 mg Documented By: JIM Magnesium Hydroxide (Milk Of Magnesia 30 Ml Oral.Susp) 30 ml PO DAILY PRN PRN Reason: Constipation Methenamine Hippurate (Methenamine Hippurate 1 Gm Tablet) 1 gm PO daily [facility] Last Admin: 12/23/22 09:25 Dose: 1 gm Documented By: JIM Naloxone HCl (Naloxone Hcl Nasal 4 Mg [place]) 4 mg NOSTRILALT ONCE PRN PRN Reason: Opioid Overdose Ondansetron HCl (Ondansetron Hcl 4 Mg/2 Ml Vial) 4 mg IVPUSH Q8H PRN PRN Reason: Nausea and Vomiting Oxycodone HCl (Oxycodone Hcl Immed Release 5 Mg Tablet) 5 mg PO Q6H PRN PRN Reason: Pain, Severe (Pain Scale 7-10) Polyethylene Glycol (Polyethylene Glycol 3350 17 Gm Powd.Pack) 17 gm PO DAILY [facility] Last Admin: 12/23/22 09:27 Dose: Not Given Documented By: JIM Non-Admin Reason: Patient Condition Contraindication Potassium Chloride (Potassium Chloride Packet 20 Meq Packet) 20 meq PO DAILY [facility] Last Admin: 12/23/22 09:22 Dose: 20 meq Documented By: JIM Psyllium Hydrophilic Mucilloid (Psyllium Seed 3.7 Gm Packet) 3.7 gm PO BEDTIME [facility] Last Admin: 12/22/22 20:24 Dose: 3.7 gm Documented By: DAVID Senna (Sennosides 8.6 Mg Tablet) 17.2 mg PO BEDTIME [facility] Last Admin: 12/22/22 20:41 Dose: Not Given Documented By: DAVID Non-Admin Reason: loose stool Sodium Biphosphate/Sodium Phosphate (Sodium Phosphate,[place]-Dibasic 133 Ml Enema) 118 ml GA DAILY PRN PRN Reason: Constipation Sodium Chloride (0.9 % Sodium Chloride Flush 3 Ml Syringe) 3 ml IVFLUSH QSHIFT [facility] Last Admin: 12/23/22 09:27 Dose: 3 ml Documented By: JIM Tamsulosin HCl (Tamsulosin Hcl 0.4 Mg Capsule) 0.4 mg PO BEDTIME [facility] Last Admin: 12/22/22 20:24 Dose: 0.4 mg Documented By: DAVID Labs 12/22/22 05:02 12/22/22 01:29 Microbiology Microbiology Results: Microbiology 12/22/22 Unknown Urine Culture - Preliminary Urine Other - Suprapubic Culture in progress. 12/22/22 03:10 Blood Culture - Preliminary Blood - Venous No growth after 24 hours. 12/22/22 03:11 Blood Culture - Preliminary Blood - Venous No growth after 24 hours. Assessment and Plan (1) Acute UTI: Status: Acute (2) Hemorrhage of prostate: Status: Acute Plan 67-year-old male with history of hypertension, hyperlipidemia, unspecified atrial fibrillation, history of osteomyelitis, history of CVA with sequela of right-sided hemiplegia/hemiparesis, dysphagia and neurogenic bladder, BPH, stage IV sacral ulcer to be observed for jessica hematuria. #Acute blood loss anemia secondary to gross hematuria due to suprapubic catheter placement into prostate. Catheter replaced with tourniquet placed around penis with resolution of bleeding. transfuse 1 unit PRBCs clear/yellow urine from the suprapubic catheter H/H stable telemetry outpatient follow-up Dr. Sevilla, urology consult # acute UTI UA with 3+ leukocytes, negative nitrites, 3+ blood, positive urinary sediment, 1+ bacteria IV ceftriaxone follow cultures #SIRS criteria 2/2 transfusion reaction not sepsis #Orthostatic hypotension given IVF and 5mg midodrine Monitor BPs # hypertension blood pressure is soft, hold amlodipine and losartan # paroxysmal atrial fibrillation hold Xarelto in the setting of acute hematuria # constipation continue home meds # unspecified seizure disorder continue Keppra # BPH continue Flomax DVT prophylaxis SCPs will need overnight stay pending final cultures Quality Stroke Does the patient have a stroke diagnosis?: No VTE Prior VTE?: No VTE Risk Level:: Medical - moderate - high VTE Device Contraindication: N/A - Device Ordered VTE Drug Contraindication: Treatment Not Indicated
[2022-12-23] MEDS: Gabapentin 300 MG CAPSULE PO (20:41)
[2022-12-23] MEDS: Tamsulosin HCL 0.4 MG CAPSULE PO (20:43)
[2022-12-23] MEDS: oxyCODONE HCl Immed Release 5 MG TABLET PO (20:50)
[2022-12-24] MEDS: 0.9 % Sodium Chloride Flush 3 ML SYRINGE IVFLUSH ×2 (00:12→09:16)
[2022-12-24 03:02] VITALS: BP 100/61; PULSE 58; RESP 20; TEMP 36.1; O2SAT 100
[2022-12-24] MEDS: 0.9 % Sodium Chloride 1,000 ML 75 ML IVCONT (03:31)
[2022-12-24] MEDS: cefTRIAXone sodium 1 GM in 0.9 % Sodium Chloride 50 ML IV (03:31)
[2022-12-24 06:18] LABS: Hematocrit 30.1 % (42.0-52.0); Hemoglobin 10.1 g/dl (14.0-18.0); Mean Corpuscular HGB Conc 33.6 g/dl (31.0-36.0); Mean Corpuscular Hemoglobin 32.6 pg (27.0-33.0); Mean Corpuscular Volume 97.1 fL (80.0-98.0); Mean Platelet Volume 10.3 fL (9.4-12.4); Platelet Count 105 X10*3/uL (160-400); Red Cell Distribution Width 14.6 % (11.0-16.0); White Blood Count 5.5 X10*3/uL (4.8-10.8)
[2022-12-24 07:34] VITALS: BP 120/70; PULSE 63; RESP 20; TEMP 36.4; O2SAT 96
[2022-12-24] MEDS: Lidocaine 4 % Patch ADH..PATCH 1 PATCH TRANSDERMA (09:14)
[2022-12-24] MEDS: amLODIPine Besylate 5 MG TABLET PO (09:15)
[2022-12-24] MEDS: Atorvastatin Calcium 80 MG TABLET PO (09:15)
[2022-12-24] MEDS: levETIRAcetam Oral Soln 500 MG/5 ML 250 MG PO (09:15)
[2022-12-24] MEDS: Potassium Chloride Packet 20 MEQ PACKET PO (09:15)
[2022-12-24] MEDS: Methenamine Hippurate 1 GM TABLET PO (09:15)
[2022-12-24] MEDS: Ferrous Sulfate 324 MG TABLET.DR PO (09:15)
[2022-12-24] MEDS: Ascorbic Acid 500 MG TABLET 1000 MG PO (09:15)
[2022-12-24] MEDS: Losartan Potassium 50 MG TABLET 100 MG PO (09:16)
[2022-12-24] MEDS: Calcium + Vitamin D 250 MG TABLET 500 MG PO (09:18)
--- NOTE | 2022-12-24 09:20 | MHC.CM.PN ---
ANTIC PT TO BE MEDICALLY CLEARED FOR RETURN [place] [facility] [place] W/BLS VIA GINI AT 1:30PM
--- NOTE | 2022-12-24 10:12 | P.CDIM_ITS ---
PROVIDER RESPONSE TEXT: To clarify, the appropriate diagnosis supported by the clinical indicators: Obesity Due to excess calories QUERY TEXT: PHYSICIAN'S DOCUMENTATION REQUEST Date of Query: 12/24/2022 08:22 AM EDT Patient Name: Wyatt Castillo Admit Date: 12/23/2022 Dear Rowena Silver, A review of the medical record indicates additional documentation may be needed. Please review below and update the documentation accordingly. Clinical Indicators: BMI 39.5 117.934kg 5ft 8in If possible, please provide an associated diagnosis related to the abnormal BMI, such as: Overweight Obesity Due to excess calories Obesity Due to other cause Specify the other cause Severe obesity Other (explain)Clinically unable to determine (explain)Thank you, Shaye Middleton, CCS, CDIS Use of terms such as suspected, likely, concern for, or probable (associated with a specific diagnosi s that is being evaluated, monitored, or treated as if it exists) are acceptable and can be coded in the inpatient se tting, when documented at the time of discharge. Please use your independent medical judgment in providing your response. THIS QUERY IS PART OF THE PERMANENT MEDICAL RECORD
--- NOTE | 2022-12-24 10:12 | P.CDIM_ITS ---
PROVIDER RESPONSE TEXT: To clarify, the appropriate diagnosis supported by the clinical indicators: Pressure (decubitus) ulcer/injury sacral region Stage 3 QUERY TEXT: PHYSICIAN'S DOCUMENTATION REQUEST Date of Query: 12/24/2022 08:16 AM EDT Patient Name: Wyatt Castillo Admit Date: 12/23/2022 Dear Rowena Silver, A review of the medical record indicates additional documentation may be needed. Please review below and update the documentation accordingly. Clinical Indicators: H&P: 12/22 - Stage IV sacral ulcer PN: 12/23 - Stage 3 decubitus ulcer Wound care notes 12/23 - Stage III coccyx Foam aid Clarity and consistency of noted stages of pressure ulcers within the medical record: Pressure (decubitus) ulcer/injury sacral region Stage 3 Pressure (decubitus) ulcer/injury sacral Stage 4 Other (explain)Clinically unable to determine (explain)Thank you, Shaye Middleton, CCS, CDIS Use of terms such as suspected, likely, concern for, or probable (associated with a specific diagnosi s that is being evaluated, monitored, or treated as if it exists) are acceptable and can be coded in the inpatient se tting, when documented at the time of discharge. Please use your independent medical judgment in providing your response. THIS QUERY IS PART OF THE PERMANENT MEDICAL RECORD
[2022-12-24 11:22] VITALS: BP 113/67; PULSE 68; RESP 20; TEMP 36.7; O2SAT 99
--- NOTE | 2022-12-24 12:41 | PM.DS ---
DS: Providers Provider Date of Service: 12/24/22 Date of admission: 12/23/22 10:29 Primary care physician: Lorraine Wiley MD Consults: 12/22/22 06:22 Consult to Urology Stat Consulting Provider: Hardeep Sevilla Reason for consultation: prostate bleed Has provider been notified: Yes 12/22/22 12:06 Consult to Urology Routine Consulting Provider: Hardeep Sevilla Reason for consultation: hemorrhage prostate 12/22/22 15:31 Consult to Wound Care Routine Reason for consultation: STAGE III TO COCCYX DS: Diagnosis Discharge Diagnosis (1) Acute UTI: Status: Acute (2) Hemorrhage of prostate: Status: Acute (3) Stage III pressure ulcer: Status: Acute DS: Summary Hospital Course Hospital Course: Admission note HPI 67-year-old male with history of hypertension, hyperlipidemia, unspecified atrial fibrillation, history of osteomyelitis, history of CVA with sequela of right-sided hemiplegia/hemiparesis, dysphagia and neurogenic bladder, BPH, stage IV sacral ulcer presented to the ED from [facility] where he resides for evaluation of gross hematuria. The patient has a suprapubic catheter in place which was changed on the evening shift last night and developed jessica blood from the catheter shortly after insertion. The patient is unable to verbalize much but denies any complaints. On arrival, patient was tachycardic to 150, with soft blood pressures but no hypotension. He was briefly febrile to 101.0 likely 2/2 transfusion. There is no leukocytosis. On arrival, H/H 12.1/36.0%. Due to jessica blood, he was transfused 1 unit and H/H remained 12.1/30 6.4%. Renal function electrolytes were normal. Urinalysis significant for 3+ leukocytes, 3+ blood, 2+ protein, elevated specific gravity, positive urinary sediment, 1+ bacteria. Urine culture is pending. Urology was consulted from the ED and evaluated patient. Suprapubic catheter was replaced and tourniquet was placed around penis with cessation of bleeding. Tourniquet has since been removed without recurrence of symptoms. In the ED, received OR tylenol, 1 L IV NS, 2 g IV Rocephin, and 250 mg Keppra. Hospital course #Acute blood loss anemia secondary to gross hematuria due to suprapubic catheter placement into prostate. Catheter replaced with tourniquet placed around penis with resolution of bleeding. transfuse 1 unit PRBCs. clear/yellow urine from the suprapubic catheter since then as H/H stable. outpatient follow-up Dr. Sevilla, urology consult. # acute UTI Treated with IV ceftriaxone as urine cultures negative. Continue Ceftin. #SIRS criteria 2/2 transfusion reaction not sepsis #Orthostatic hypotension given IVF and 5mg midodrine Hold BP medications on discharge. to be monitored at facility and restarted if needed. Continue antibiotics as prescribed restart Xarelto tomorrow Hold Amlodipine on discharge. to be monitored at facility and restarted if needed. To follow with Urology as outpatient as scheduled Time Attestation Discharge coordination time: Greater than 30 minutes Quality: Safe Use of Opioids Does Pt have an Active Cancer Diagnosis on the Problem List?: No Quality: Stroke Does the patient have a stroke diagnosis?: No Physical Exam Vital Signs: Vital Signs: Last Vital Signs Temp 98.0 F 12/24/22 11:22 Pulse 68 12/24/22 11:22 Resp 20 12/24/22 11:22 BP 113/67 12/24/22 11:22 Pulse Ox 99 12/24/22 11:22 O2 Del Method Room Air 12/24/22 11:22 BMI result Body Mass Index 39.5 Const: Other: Constitutional : Awake, interactive, not in distress Neck : Normal inspection, Supple Cardiovascular : RRR, no JVP, no lower extremity edema Respiratory : good bilateral air entry, no crackles, wheezes or rhonchi Gastrointestinal: soft, lax, Normal bowel sounds, Non tender Skin : Warm, Dry, stage 3 decubetus ulcer which is not infected Urology: stable suprapubic cath with clear urine. no tenderness. No warmth or surrounding erythema Neurological : non-verbal, paraplegic , alert DS: Data Data Completed and Pending Completed studies during hospitalization [Text1]: Procedures Drainage of Bladder with Drainage Device, Percutaneous Endoscopic Approach (06/23/21) Labs on day of discharge: Laboratory Results - last 24 hr 12/24/22 05:52 WBC 5.5 RBC 3.10 L Hgb 10.1 L Hct 30.1 L MCV 97.1 MCH 32.6 MCHC 33.6 RDW 14.6 Plt Count 105 L D MPV 10.3 Absolute Nucleated RBC 0.000 Nucleated RBC % (auto) 0.0 Preliminary micro results at discharge 12/22/22 03:10 Blood Culture - Preliminary Blood - Venous No growth after 48 hours. 12/22/22 03:11 Blood Culture - Preliminary Blood - Venous No growth after 48 hours. Imaging Chest x-ray: Radiologist's impression: ITS Impressions Abdomen/Pelvis CT 12/22/22 02:29 IMPRESSION: Apparent indwelling suprapubic catheter in place which extends through the urinary bladder with the apparent balloon of the catheter terminating in the lower prostate/ureter. Retained stool within the right colon. Distended gas-filled remaining colon. Mild rectal thickening possibly a mild proctitis. Bilateral renal calculi. Bilateral mild hydronephrosis and hydroureter extending to the pelvis without ureteral calculi. Suspect outlet obstruction. There are small pericardial effusion. Fleischner guidelines were followed. Discharge Plan Discharge Anticipated Discharge Date/Time: 12/24/22 12:33 Patient Disposition: [facility] Discharge Diagnosis: Hematuria UTI Referrals: [facility] [Outside] - 1 Day ([facility] [facility]) Lorraine Wiley MD [Primary Care Provider] - 1 Week Discharge Medications: New cefuroxime axetil 500 mg tablet 500 mg PO BID Qty: 6 0RF Continued (DME) wet wipes See Rx Instructions .ROUTE .MEDSUPPLY Qty: 5 3RF Rx Instructions: As directed levetiracetam 100 mg/mL solution 2.5 ml PO BID naloxone 4 mg/actuation [place],Non-Aerosol 4 mg INTRANASAL ONCE PRN (Reason: Opioid Overdose) lidocaine 5 % adhesive patch,medicated 1 patch topical DAILY Rx Instructions: apply to right upper arm AND REMOVE AT BEDTIME acetaminophen 325 mg Tablet 650 mg PO Q4H PRN (Reason: fever/pain) calcium carbonate-vitamin D3 600 mg-5 mcg (200 unit) Tablet 1 tab PO BID magnesium hydroxide [Milk of Magnesia] 400 mg/5 mL Suspension 30 ml PO DAILY PRN (Reason: Constipation) bisacodyl 10 mg Suppository 10 mg OR DAILY PRN (Reason: Constipation) Fleet Enema 19-7 gram/118 mL Enema 118 ml OR DAILY PRN (Reason: Constipation) magnesium citrate Solution 150 ml PO DAILY PRN (Reason: Constipation) oxycodone 5 mg Tablet 5 mg PO Q6H PRN (Reason: Pain) potassium chloride 20 mEq Packet 20 meq PO DAILY ferrous sulfate 325 mg (65 mg iron) Tablet 325 mg PO DAILY acetaminophen [Tylenol] 325 mg Tablet 650 mg PO BEDTIME acetic acid 0.25 % Solution 50 ml IRRIGATION TUTHSA@2100 Rx Instructions: for urinary catheter flush polyethylene glycol 3350 17 gram Powder In Packet 17 g PO DAILY Qty: 30 0RF sennosides [Senna Lax] 8.6 mg Tablet 17.2 mg PO BEDTIME Qty: 60 0RF Metamucil Fiber Singles 3.4 gram Powder In Packet 3.4 g PO BEDTIME Qty: 30 0RF losartan 100 mg tablet 100 mg PO DAILY 90 Days Qty: 90 4RF Hold Instructions: Monitor BP at facility and restart if needed. gabapentin 300 mg capsule 300 mg PO BEDTIME 30 Days Qty: 30 0RF (DME) miscellaneous medical supply Misc See Rx Instructions .ROUTE .MEDSUPPLY Qty: 1 0RF Rx Instructions: RUE resting hand Splint/Sling As directed, Dx: G81.91, I67.89, duration 999 days/life time tamsulosin 0.4 mg capsule 0.4 mg PO BEDTIME 90 Days Qty: 90 1RF atorvastatin 80 mg tablet 80 mg PO DAILY ascorbic acid (vitamin C) 1,000 mg tablet 1,000 mg PO DAILY 90 Days Qty: 90 1RF methenamine hippurate 1 gram tablet 1 g PO daily 90 Days Qty: 90 1RF Held amlodipine 5 mg tablet 5 mg PO DAILY Hold Instructions: monitor BP at facility for 1 week and restarted if needed. Xarelto 20 mg tablet 20 mg PO DAILY@1700 Hold Instructions: Resume on 12/25/22. Discharge Orders: Discharge Order (Routine); Ordered 12/24/22 Ordered By: Rowena Silver Diet: Advance to usual diet Activity on Discharge: As tolerated Stand Alone Forms: Patient Portal Discharge page Care Plan Goals: Read below Health Concerns: Read below Plan of Treatment: Read below Assessment: Continue antibiotics as prescribed restart Xarelto tomorrow To follow with Urology as outpatient as scheduled Hold Amlodipin on discharge. to be monitored at facility and restarted if needed.
== END 2022-12-24 15:56 | disposition skilled nursing facility (03) | DRG 698 ==
LOC: HO.ED 05:11 → HO.EDOVER 12:13 → HO.IMC 14:23
PROVIDERS: Admitting Provider Physician Assistant; Emergency Provider Emergency Medicine; PCP Internal Medicine; Visit Provider Student in an Organized Health Care Education/Training Program
DX: T83.83XA Hemorrhage due to genitourinary prosthetic devices, implants and grafts, initial encounter (principal); L89.153 Pressure ulcer of sacral region, stage 3; I69.351 Hemiplegia and hemiparesis following cerebral infarction affecting right dominant side; R65.10 Systemic inflammatory response syndrome (SIRS) of non-infectious origin without acute organ dysfunction; N13.6 Pyonephrosis; D62 Acute posthemorrhagic anemia; T80.89XA Other complications following infusion, transfusion and therapeutic injection, initial encounter; I69.322 Dysarthria following cerebral infarction; I95.1 Orthostatic hypotension; I10 Essential (primary) hypertension; N31.9 Neuromuscular dysfunction of bladder, unspecified; I48.0 Paroxysmal atrial fibrillation; N42.1 Congestion and hemorrhage of prostate; E66.09 Other obesity due to excess calories; Z68.39 Body mass index [BMI] 39.0-39.9, adult; K59.00 Constipation, unspecified; N40.0 Benign prostatic hyperplasia without lower urinary tract symptoms; G40.909 Epilepsy, unspecified, not intractable, without status epilepticus; Z99.3 Dependence on wheelchair; Z79.01 Long term (current) use of anticoagulants; Z79.899 Other long term (current) drug therapy
CPT/HCPCS: 36415; 74177; 80048; 80076; 81001; 83605; 83735; 85025; 85027; 85610; 86850; 86900; 86901; 86923; 87040; 87086; 93005; 99285; J0696; P9016; Q9967

== ENCOUNTER → 2022-12-22 12:06 | Outpatient (BNV) | payer OTHER, SELFPAY | PROVIDERS: Admitting Provider Physician Assistant; Emergency Provider Emergency Medicine; PCP Internal Medicine; Visit Provider Physician Assistant | DX: N39.0 Urinary tract infection, site not specified (principal); N42.1 Congestion and hemorrhage of prostate | CPT/HCPCS: 99223; 99232; 99239 ==

== ENCOUNTER 2023-02-26 10:01 | Inpatient (IN) | payer OTHER, SELFPAY ==
[2023-02-26 10:13] VITALS: BP 124/66; BP 126/71; PULSE 51; PULSE 60; RESP 20; TEMP 36.7; O2SAT 100; O2SAT 97; BMI 25.8
--- NOTE | 2023-02-26 10:17 | ED.GENADULT ---
HPI - General Adult General Chief complaint: General Medical Stated complaint: abd distention/pain per ems Time Seen by Provider: 02/26/23 10:12 Source: patient Mode of arrival: ambulatory Limitations: other (poor historian ) History of Present Illness HPI narrative: 67 yo m hx of hypertension, hyperlipidemia, AFib on Xarelto, history of CVA with right-sided hemiparesis, mostly bedbound, minimally verbal but mostly mute Presents for evaluation of diffuse abdominal pain/ discomfort, slight abdominal distension, fatigue, malaise, myalgias. Poor p.o. intake /appetite. This has been going on for the past few days worsening. No fevers, chills, chest pain, shortness of breath, headache, vision changes, dizziness weakness Related Data Home Medications Medication Instructions Recorded Confirmed amlodipine 5 mg tablet 5 mg PO DAILY 06/20/20 12/22/22 acetaminophen 325 mg tablet 650 mg PO Q4H PRN fever/pain 02/16/21 12/22/22 bisacodyl 10 mg rectal suppository 10 mg GA DAILY PRN Constipation 02/16/21 12/22/22 calcium carbonate 600 mg-vitamin 1 tab PO BID 02/16/21 12/22/22 D3 5 mcg (200 unit) tablet lidocaine 5 % topical patch 1 patch topical DAILY 02/16/21 12/22/22 magnesium hydroxide 400 mg/5 mL 30 ml PO DAILY PRN Constipation 02/16/21 12/22/22 oral suspension (Milk of Magnesia) levetiracetam 100 mg/mL oral 2.5 ml PO BID 02/26/21 12/22/22 solution naloxone 4 mg/actuation nasal spray 4 mg intranasal ONCE PRN Opioid 02/26/21 12/22/22 Overdose atorvastatin 80 mg tablet 80 mg PO DAILY 01/26/22 12/22/22 rivaroxaban 20 mg tablet (Xarelto) 20 mg PO DAILY@1700 01/26/22 12/22/22 magnesium citrate 150 ml PO DAILY PRN Constipation 02/15/22 12/22/22 oxycodone 5 mg tablet 5 mg PO Q6H PRN Pain 02/15/22 12/22/22 sodium phosphates 19 gram-7 118 ml GA DAILY PRN Constipation 02/15/22 12/22/22 gram/118 mL enema (Fleet Enema) acetaminophen 325 mg tablet 650 mg PO BEDTIME 08/12/23 10/31/23 (Tylenol) acetic acid 0.25 % irrigation 50 ml irrigation TUTHSA@2100 10/03/22 12/22/22 solution ferrous sulfate 325 mg (65 mg 325 mg PO DAILY 12/22/22 12/22/22 iron) tablet potassium chloride 20 mEq oral 20 meq PO DAILY 12/22/22 12/22/22 packet Previous Rx's Medication Instructions Recorded losartan 100 mg tablet 100 mg PO DAILY 90 days #90 tabs 02/07/20 wet wipes #5 multiple units 03/12/20 tamsulosin 0.4 mg capsule 0.4 mg PO BEDTIME 90 days #90 caps 03/22/20 gabapentin 300 mg capsule 300 mg PO BEDTIME 30 days #30 caps 03/27/20 miscellaneous medical supply #1 ea 03/27/20 ascorbic acid (vitamin C) 1,000 mg 1,000 mg PO DAILY 90 days #90 tabs 01/27/22 tablet methenamine hippurate 1 gram tablet 1 g PO daily 90 days #90 tabs 01/27/22 polyethylene glycol 3350 17 gram 17 g PO DAILY #30 ea 10/05/22 oral powder packet sennosides 8.6 mg tablet (Senna 17.2 mg (2 x 8.6 mg) PO BEDTIME 10/05/22 Lax) #60 tabs psyllium husk (aspartame) 3.4 gram 3.4 g PO BEDTIME #30 ea 10/06/22 oral powder packet (Metamucil Fiber Singles) cefuroxime axetil 500 mg tablet 500 mg PO BID #6 tabs 12/24/22 Allergies Allergy/AdvReac Type Severity Reaction Status Date / Time No Known Allergies Allergy Verified 12/22/22 01:21 [No Known Allergies*] Review of Systems Review of Systems: Yes all other systems are reviewed and are negative PMFSH Past Medical History Attestation statement: The following information was validated with the patient. Source: old records reviewed and nursing notes reviewed Onset Date is defined in the Problem List Problems that require an onset date and time if occurred within 24 hrs of arrival to the ED Aortic Dissection and Rupture; Neurologic impairment; Cardiopulmonary Arrest; Endotracheal Intubation; Insertion or Replacement of Mechanical Circulatory Assist Device Medical History Seizure disorder Chronic constipation Decubitus ulcer of sacral area Osteomyelitis Septic shock C. 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 Mother No problems noted. Social History Social History Household Members: Other Household Members Other:: resides at [facility] [place] ([phone]) Housing: [facility] Are you a primary child care coordinator to a significant other at home: No Do you presently have visiting nurse or other home services: No Unable to assess alcohol history related to: Unable to respond Alcohol intake: never Comment: patient sleeping Patient Tobacco Use Status: Tobacco use Unknown Smoked in Last 30 Days: No Second Hand Smoke Exposure: No Use of substances other than those prescribed or required for medical reasons: No Advance Directives: Yes Advance Directives on File: Yes Advance Directives Date on File: 07/25/21 service: No Current occupational status: disabled Physical Exam ED Vital Signs: Vital Signs - 24 hr 02/26/23 10:13 02/26/23 14:40 Temperature 98.1 F 98.2 F Pulse Rate 51 60 Respiratory Rate 20 20 Blood Pressure 126/71 169/80 H Pulse Oximetry 97 98 Oxygen Delivery Method Room Air BMI result Body Mass Index 25.8 vss Appearance: Alert.? Oriented X3.? No acute distress.? Head: Normocephalic, atraumatic, no step-offs or deformities Eyes: Pupils equal, round and reactive to light.? Neck: Normal inspection.? Neck supple.? CVS: Normal heart rate and rhythm.? Pulses normal.? Respiratory: No respiratory distress.? Breath sounds normal.? Abdomen: Soft and nontender.? Skin: Skin warm and dry.? Normal skin color.? Normal skin turgor.? + stage III pressure ulcer on coccyx Extremities: No lower extremity edema.? No calf ttp. right-sided hemiparesis at baseline and global weakness. Back: No midline tenderness, no C-spine tenderness, full range of motion, no CVA tenderness bilaterally Neuro: Oriented X 3.? No motor deficit.? No sensory deficit. CN 2-12 intact Course Reevaluation(s) Reevaluation #1: charts now informed me that patient has been having completely liquid diarrhea multiple episodes per day, patient reports this is also been going on for a few days. Obtain GI studies and test for Clostridium difficile patient with history of this this is likely C diff. Time: 10:25 Reevaluation #2: CBC appears to be around patient's baseline normocytic anemia, chemistry pending. Time: 11:11 Reevaluation #3: Chemistry K 3.2, Patient noted to have evident urinary tract infection will cover with ceftriaxone, blood cultures and lactic ordered. Time: 11:18 Additional Reevaluation(s): US guided line placed R ac Dr. Brice infiltrated 1400- I placed another line on this patient CT w/ The kidneys are normal in size, shape, and attenuation. There is a large right pelvis and UPJ stone measuring approximately 3.6 cm in craniocaudad length with mild hydronephrosis. There is partially obstructive. There are a few radiopaque calculi, a 2 mm and 4 mm calculi mid pole and 4 mm calculi lower pole right kidney. There is 2 mm and a 6 mm radiopaque calculi mid pole left kidney. No left-sided hydronephrosis. BLADDER: The bladder is nondistended with a suprapubic Walker's catheter in place. Dr. Sevilla consulted. IV atbx already given. He recommends hospitalist admission. Medications Administered Discontinued Medications Generic Name Dose Route Start Last Admin Trade Name Freq PRN Reason Stop Dose Admin Ceftriaxone Sodium 1 gm/ 50 mls @ 100 mls/hr 02/26/23 11:17 02/26/23 12:56 Sodium Chloride IV 02/26/23 11:46 Infused ONCE ONE Infusion Potassium Chloride 20 meq 02/26/23 15:35 02/26/23 15:47 Potassium Chloride Er 20 Meq Tab.Er.Prt PO 02/26/23 15:36 20 meq ONCE ONE Administration Medical Decision Making Medical Decision Making MDM Narrative: 59-year-old male presents with abdominal discomfort for the past few days comes in by ambulance. physical exam appears to be around patient's baseline no acute findings. concerns for viral illness versus colitis vs metabolic derangement versus UTI. Unlikely acute abdomen, obstruction, pancreatitis, cholecystitis, diverticulitis, appendicitis, mesenteric ischemia. Unlikely ACS or dissection. labs, urine Differential Diagnosis Differential Diagnoses: The differential diagnosis associated with the presentation includes concerns for viral illness versus colitis vs metabolic derangement versus UTI. Unlikely acute abdomen, obstruction, pancreatitis, cholecystitis, diverticulitis, appendicitis, mesenteric ischemia. Unlikely ACS or dissection. Admission/Observation Consideration of admission/observation: Escalation of care including admission/observation considered possible Lab Data 02/26/23 10:35 02/26/23 10:36 Labs: Lab Results 02/26/23 02/26/23 02/26/23 Range/Units 10:35 10:36 11:51 WBC 5.0 (4.8-10.8) X10*3/uL RBC 3.84 L D (4.60-5.80) X10*6/uL Hgb 12.8 L D (14.0-18.0) g/dl Hct 36.9 L D (42.0-52.0) % MCV 96.1 (80.0-98.0) fL MCH 33.3 H (27.0-33.0) pg MCHC 34.7 (31.0-36.0) g/dl RDW 13.2 (11.0-16.0) % Plt Count 144 L D (160-400) X10*3/uL MPV 9.7 (9.4-12.4) fL Immature Gran % (Auto) 0.2 (0.0-0.4) % Neut % (Auto) 50.7 (45-73) % Lymph % (Auto) 35.6 (20-40) % [place] % (Auto) 9.3 (2-11) % Eos % (Auto) 3.6 (0-4) % Baso % (Auto) 0.6 (0-2) % Lymph # (Auto) 1.8 (1.2-4.9) X10*3/uL [place] # (Auto) 0.5 (0.1-1.2) X10*3/uL Eos # (Auto) 0.2 (0.0-0.4) X10*3/uL Baso # (Auto) 0.0 (0.0-0.2) X10*3/uL Abs Immat Gran (auto) 0.01 (0.00-0.03) X10*3/uL Absolute Neuts (auto) 2.6 (2.0-8.3) x10*3/uL Absolute Nucleated RBC 0.000 (0.0-0.012) X10*3/uL Nucleated RBC % (auto) 0.0 (0.0-0.2) /100WBC PT (11.1-13.3) SEC INR (0.9-1.1) Sodium 140 (135-145) mmol/L Potassium 3.2 L (3.3-5.1) mmol/L Chloride 112 H (96-108) mmol/L Carbon Dioxide 20 L (22-29) mmol/L Anion Gap 11 L (12-20) BUN 21 H (9-16) mg/dL Creatinine 0.86 (0.5-1.4) mg/dL Estim Creat Clear Calc 74.1 Estimated GFR > 60 Random Glucose 94 (60-115) mg/dL Lactic Acid 1.5 (0.5-2.0) mmol/L Calcium 9.0 (8.4-10.2) mg/dL Magnesium 2.2 (1.6-2.6) mg/dL Total Bilirubin 0.7 (0.0-1.0) mg/dL AST 21 (5-37) U/L ALT 19 (0-40) U/L Alkaline Phosphatase 102 (39-117) U/L Total Protein 6.3 L (6.5-8.0) g/dL Albumin 2.9 L (3.5-5.0) g/dL Lipase 37 (8-78) U/L Urine Color [place] A Urine Appearance Turbid Urine pH 7.5 (5.0-9.0) Ur Specific [place] 1.015 (1.005-1.025) Urine Protein 300 (3+) H (Neg-Trace) mg/dL Urine Glucose (UA) Negative (Negative) mg/dL Urine Ketones Negative (Negative) mg/dL Urine Blood Large (3+) H (Negative) Urine Nitrite Positive H (Negative) Ur Leukocyte Esterase Large (3+) H (Negative) Urine RBC >20 H (0-2) /HPF Urine WBC >50 H (0-5) /HPF Ur Squamous Epith Cells 0-2 (0-2) /HPF Urine Bacteria 4+ (None Seen) Hyaline Casts 6-10 (0-2) /LPF 02/26/23 Range/Units 12:17 WBC (4.8-10.8) X10*3/uL RBC (4.60-5.80) X10*6/uL Hgb (14.0-18.0) g/dl Hct (42.0-52.0) % MCV (80.0-98.0) fL MCH (27.0-33.0) pg MCHC (31.0-36.0) g/dl RDW (11.0-16.0) % Plt Count (160-400) X10*3/uL MPV (9.4-12.4) fL Immature Gran % (Auto) (0.0-0.4) % Neut % (Auto) (45-73) % Lymph % (Auto) (20-40) % [place] % (Auto) (2-11) % Eos % (Auto) (0-4) % Baso % (Auto) (0-2) % Lymph # (Auto) (1.2-4.9) X10*3/uL [place] # (Auto) (0.1-1.2) X10*3/uL Eos # (Auto) (0.0-0.4) X10*3/uL Baso # (Auto) (0.0-0.2) X10*3/uL Abs Immat Gran (auto) (0.00-0.03) X10*3/uL Absolute Neuts (auto) (2.0-8.3) x10*3/uL Absolute Nucleated RBC (0.0-0.012) X10*3/uL Nucleated RBC % (auto) (0.0-0.2) /100WBC PT 26.6 H D (11.1-13.3) SEC INR 2.2 H (0.9-1.1) Sodium (135-145) mmol/L Potassium (3.3-5.1) mmol/L Chloride (96-108) mmol/L Carbon Dioxide (22-29) mmol/L Anion Gap (12-20) BUN (9-16) mg/dL Creatinine (0.5-1.4) mg/dL Estim Creat Clear Calc Estimated GFR Random Glucose (60-115) mg/dL Lactic Acid (0.5-2.0) mmol/L Calcium (8.4-10.2) mg/dL Magnesium (1.6-2.6) mg/dL Total Bilirubin (0.0-1.0) mg/dL AST (5-37) U/L ALT (0-40) U/L Alkaline Phosphatase (39-117) U/L Total Protein (6.5-8.0) g/dL Albumin (3.5-5.0) g/dL Lipase (8-78) U/L Urine Color Urine Appearance Urine pH (5.0-9.0) Ur Specific [place] (1.005-1.025) Urine Protein (Neg-Trace) mg/dL Urine Glucose (UA) (Negative) mg/dL Urine Ketones (Negative) mg/dL Urine Blood (Negative) Urine Nitrite (Negative) Ur Leukocyte Esterase (Negative) Urine RBC (0-2) /HPF Urine WBC (0-5) /HPF Ur Squamous Epith Cells (0-2) /HPF Urine Bacteria (None Seen) Hyaline Casts (0-2) /LPF Critical Care Time Critical Care Time Critical Care Time: Yes Total Critical Care Time: 60 Attestation: I attest to this time spent taking care of the patient, obtaining history, physical, reviewing labs, imaging, speaking to my attending, speaking to specialist. Discharge Plan Discharge Clinical Impression: Acute UTI, Kidney calculi, Stage III pressure ulcer Patient Disposition: Admitted As Inpatient
--- NOTE | 2023-02-26 13:26 | PC.NURSE ---
Ultrasound IV infiltrated. CT scan ran dry. PA notified.
--- NOTE | 2023-02-26 14:36 | PC.NURSE ---
pt cleaned, no stool sample available to send to lab. [place] cushion pad placed on wound on sacral area. PA aware of wound. Stage 3 pressure ulcer.
[2023-02-26 14:40] VITALS: BP 169/80; PULSE 60; RESP 20; TEMP 36.8; O2SAT 98
--- NOTE | 2023-02-26 14:46 | PC.NURSE ---
22g IV placed in left hand
--- NOTE | 2023-02-26 16:11 | PHA.MEDREC ---
Pharmacy Consult ? Medication Reconciliation Pharmacy has completed the medication reconciliation. Patient came from [facility] with med list. Maraí Champagne, EloinaD
--- NOTE | 2023-02-26 16:16 | PM.IMHP ---
History of Present Illness Date of Service: 02/26/23 Chief Complaint: abd pain 67M PMH vascular dementia (minimally verbal, bed bound, full care), history of CVA with right hemiparesis, dysphagia, neurogenic bladder with recurrent UTIs and suprapubic catheter, stage IV sacral decubitus ulcer, htn, hld, paroxysmal afib, presented with abd pain. Patient unable to provide history himself. He comes from nursing home facility, reportedly having decreased intake, more lethargy, grabbing at abdomen. In ED, UA grossly positive, CT abdomen shows large right renal pelvic and UPJ stone with mild hydronephrosis and bilateral nephrolithiasis without left-sided hydronephrosis. Review of Systems Review of Systems: Yes all other systems are reviewed and are negative [facility] Medical History Seizure disorder Chronic constipation Decubitus ulcer of sacral area Osteomyelitis Septic shock C. 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 Mother No problems noted. Surgical History No pertinent past surgical history Social History Household Members: Other Household Members Other:: resides at [place], [place] ([phone]) Housing: [facility] Are you a primary patient care nursing assistant to a significant other at home: No Do you presently have visiting nurse or other home services: No Unable to assess alcohol history related to: Unable to respond Alcohol intake: never Comment: patient sleeping Patient Tobacco Use Status: Tobacco use Unknown Smoked in Last 30 Days: No Second Hand Smoke Exposure: No Use of substances other than those prescribed or required for medical reasons: No Advance Directives: Yes Advance Directives on File: Yes Advance Directives Date on File: 07/25/21 service: No Current occupational status: disabled Meds Allergies Allergy/AdvReac Type Severity Reaction Status Date / Time No Known Allergies Allergy Verified 12/22/22 01: [No Known Allergies*] Home Medications Medication Instructions Recorded Confirmed Last Taken Type acetaminophen 325 mg tablet 650 mg PO Q4H PRN fever/pain 02/16/21 02/26/23 Unknown History bisacodyl 10 mg rectal suppository 10 mg MO DAILY PRN Constipation 02/16/21 02/26/23 Unknown History calcium carbonate 600 mg-vitamin 1 tab PO BID 02/16/21 02/26/23 02/14/22 History D3 5 mcg (200 unit) tablet magnesium hydroxide 400 mg/5 mL 30 ml PO DAILY PRN Constipation 02/16/21 02/26/23 Unknown History oral suspension (Milk of Magnesia) levetiracetam 100 mg/mL oral 2.5 ml PO BID 02/26/21 02/26/23 02/14/22 History solution atorvastatin 80 mg tablet 80 mg PO DAILY 01/26/22 02/26/23 02/14/22 History rivaroxaban 20 mg tablet (Xarelto) 20 mg PO DAILY@1700 01/26/22 02/26/23 02/14/22 History magnesium citrate 150 ml PO DAILY PRN Constipation 02/15/22 02/26/23 Unknown History oxycodone 5 mg tablet 5 mg PO Q6H PRN Pain 02/15/22 02/26/23 Unknown History sodium phosphates 19 gram-7 118 ml MO DAILY PRN Constipation 02/15/22 02/26/23 Unknown History gram/118 mL enema (Fleet Enema) acetaminophen 325 mg tablet 650 mg PO BEDTIME 10/03/22 02/26/23 Unknown History (Tylenol) acetic acid 0.25 % irrigation 50 ml irrigation TUTHSA@2100 10/03/22 02/26/23 Unknown History solution ferrous sulfate 325 mg (65 mg 325 mg PO DAILY 12/22/22 02/26/23 Unknown History iron) tablet potassium chloride 20 mEq oral 20 meq PO DAILY 12/22/22 02/26/23 Unknown History packet Physical Exam Vital Signs and Narrative: Vital Signs: Last Vital Signs Temp 98.2 F 02/26/23 14:40 Pulse 60 02/26/23 14:40 Resp 20 02/26/23 14:40 BP 169/80 H 02/26/23 14:40 Pulse Ox 98 02/26/23 14:40 O2 Del Method Room Air 02/26/23 14:40 BMI result Body Mass Index 25.8 General: Alert, minimally verbal, no acute distress Resp: CTA bilateral, no accessory muscles used CVS: S1,S2,RRR GI: soft, non tender, non distended Neuro: right hemiparesis skin: sacral ulcer Results Labs 02/26/23 10:35 02/26/23 10:36 Labs: Laboratory Results - last 24 hr 02/26/23 02/26/23 02/26/23 10:35 10:36 11:51 MCV 96.1 MCH 33.3 H MCHC 34.7 RDW 13.2 Plt Count 144 L D MPV 9.7 Immature Gran % (Auto) 0.2 Neut % (Auto) 50.7 Lymph % (Auto) 35.6 [place] % (Auto) 9.3 Eos % (Auto) 3.6 Baso % (Auto) 0.6 Lymph # (Auto) 1.8 [place] # (Auto) 0.5 Eos # (Auto) 0.2 Baso # (Auto) 0.0 Abs Immat Gran (auto) 0.01 Absolute Neuts (auto) 2.6 Absolute Nucleated RBC 0.000 Nucleated RBC % (auto) 0.0 PT INR Anion Gap 11 L Estim Creat Clear Calc 74.1 Estimated GFR > 60 Random Glucose 94 Lactic Acid 1.5 Calcium 9.0 Magnesium 2.2 Total Bilirubin 0.7 AST 21 ALT 19 Alkaline Phosphatase 102 Total Protein 6.3 L Albumin 2.9 L Lipase 37 Urine Color [place] A Urine Appearance Turbid Urine pH 7.5 Ur Specific [place] 1.015 Urine Protein 300 (3+) H Urine Glucose (UA) Negative Urine Ketones Negative Urine Blood Large (3+) H Urine Nitrite Positive H Ur Leukocyte Esterase Large (3+) H Urine RBC >20 H Urine WBC >50 H Ur Squamous Epith Cells 0-2 Urine Bacteria 4+ Hyaline Casts 6-10 02/26/23 12:17 MCV MCH MCHC RDW Plt Count MPV Immature Gran % (Auto) Neut % (Auto) Lymph % (Auto) [place] % (Auto) Eos % (Auto) Baso % (Auto) Lymph # (Auto) [place] # (Auto) Eos # (Auto) Baso # (Auto) Abs Immat Gran (auto) Absolute Neuts (auto) Absolute Nucleated RBC Nucleated RBC % (auto) PT 26.6 H D INR 2.2 H Anion Gap Estim Creat Clear Calc Estimated GFR Random Glucose Lactic Acid Calcium Magnesium Total Bilirubin AST ALT Alkaline Phosphatase Total Protein Albumin Lipase Urine Color Urine Appearance Urine pH Ur Specific [place] Urine Protein Urine Glucose (UA) Urine Ketones Urine Blood Urine Nitrite Ur Leukocyte Esterase Urine RBC Urine WBC Ur Squamous Epith Cells Urine Bacteria Hyaline Casts Imaging Radiologist's Impressions: Impressions Abdomen/Pelvis CT 02/26/23 13:10 IMPRESSION: 1. Large right renal pelvic and UPJ stone with mild hydronephrosis. Bilateral nephrolithiasis without left-sided hydronephrosis. 2. Significant constipation with significant distention of a redundant sigmoid colon. There is nonspecific mild mural thickening of the recto anal junction but no obvious mass seen. A simple rectal catheter may be helpful. Similar findings were seen on the previous exam 12/22/2022. 3. Suprapubic Walker's catheter in place. Fleischner guidelines were followed. Assessment and Plan (1) Acute UTI: Status: Acute Plan 67M PMH vascular dementia (minimally verbal, bed bound, full care), history of CVA with right hemiparesis, dysphagia, neurogenic bladder with recurrent UTIs and suprapubic catheter, stage IV sacral decubitus ulcer, htn, hld, paroxysmal afib, presented with abd pain Complicated urinary tract infection due to neurogenic bladder and suprapubic catheter complicated by bilateral nephrolithiasis and right-sided hydronephrosis Urology to exchange catheter Empiric IV ceftriaxone Follow-up culture Vascular dementia At baseline History of dysphagia Continue mechanical soft diet with thin liquids History of CVA Continue Xarelto and atorvastatin Stage IV decubitus ulcer Local care Paroxysmal atrial fibrillation In sinus, continue Xarelto DVT prophylaxis with Xarelto Full code Patient with complicated urinary tract infection, history of drug-resistant bacteria, therefore will need inpatient IV antibiotics until cultures resolved, therefore, expected to require at least 2 midnights inpatient Quality Stroke Does the patient have a stroke diagnosis?: No VTE Prior VTE?: No VTE Risk Level:: Medical - moderate - high VTE Device Contraindication: Treatment Not Indicated VTE Drug Contraindication: N/A - Med Ordered
[2023-02-26 20:00] VITALS: BP 123/71; PULSE 67; RESP 12; TEMP 36.2; O2SAT 97
[2023-02-26 21:46] VITALS: BP 137/78; PULSE 55; RESP 18; TEMP 36.7; O2SAT 96
--- NOTE | 2023-02-27 04:50 | HO.SKINPHOTO ---
Location: Category: Stage: Length: 2cm Width: 1cm Depth: 0.5cm cm Location: Category: Stage: Length: Width: Depth: cm Location: Category: Stage: Length: Width: Depth: cm Location: Category: Stage: Length: Width: Depth: cm Location: Category: Stage: Length: Width: Depth: cm Location: Category: Stage: Length: Width: Depth: cm
[2023-02-27 07:35] LABS: Anion Gap 9 (12-20); Blood Urea Nitrogen 22 mg/dL (9-16); Calcium 8.7 mg/dL (8.4-10.2); Carbon Dioxide 28 mmol/L (22-29); Chloride 107 mmol/L (96-108); Creatinine Clr Calc Pharmacy 74.1; Estimated Glomerular Filt Rate > 60; Glucose Fasting 90 mg/dL (60-99); Potassium 3.1 mmol/L (3.3-5.1); Sodium 141 mmol/L (135-145)
[2023-02-27 07:38] VITALS: BP 121/72; PULSE 58; RESP 16; TEMP 36; O2SAT 99
--- NOTE | 2023-02-27 10:16 | HO.PM.IMPN ---
Subjective Subjective Date of Service: 02/27/23 Review of Systems Review of Systems: Yes Unobtainable due to mental condition Physical Exam Vital Signs: Vital Signs: Last Vital Signs Temp 96.8 F 02/27/23 07:38 Pulse 58 02/27/23 07:38 Resp 16 02/27/23 07:38 BP 121/72 02/27/23 07:38 Pulse Ox 99 02/27/23 07:38 O2 Del Method Room Air 02/27/23 07:38 BMI result Body Mass Index 25.8 Const: Other: Constitutional : Awake, interactive, not in distress Neck : Normal inspection, Supple Cardiovascular : RRR, no JVP, no lower extremity edema Respiratory : good bilateral air entry, no crackles, wheezes or rhonchi Gastrointestinal: soft, lax, Normal bowel sounds, Non tender Skin : Warm, Dry, stage 3 decubetus ulcer which is not infected Urology: stable suprapubic cath with clear urine. no tenderness. No warmth or surrounding erythema Neurological : non-verbal, paraplegic , alert Objective Data Active Medications Acetaminophen (Acetaminophen 325 Mg Tablet) 650 mg PO Q4H PRN PRN Reason: fever/pain Ascorbic Acid (Ascorbic Acid 500 Mg Tablet) 1,000 mg PO DAILY [facility] Last Admin: 02/27/23 08:44 Dose: 1,000 mg Documented By: AIDAN Atorvastatin Calcium (Atorvastatin Calcium 80 Mg Tablet) 80 mg PO DAILY [facility] Last Admin: 02/27/23 08:44 Dose: 80 mg Documented By: AIDAN Bisacodyl (Bisacodyl 10 Mg Supp.Rect) 10 mg [place] DAILY PRN PRN Reason: Constipation Calcium Carbonate/Cholecalciferol (Calcium + Vitamin D 250 Mg Tablet) 500 mg PO BID [facility] Last Admin: 02/27/23 08:44 Dose: 500 mg Documented By: AIDAN Ferrous Sulfate (Ferrous Sulfate 324 Mg Tablet.Dr) 324 mg PO DAILY [facility] Last Admin: 02/27/23 08:44 Dose: 324 mg Documented By: AIDAN Gabapentin (Gabapentin 300 Mg Capsule) 300 mg PO BEDTIME [facility] Last Admin: 02/26/23 20:54 Dose: 300 mg Documented By: CHANTELLE Ceftriaxone Sodium 1 gm/ (Sodium Chloride) 50 mls @ 100 mls/hr IV Q24H [facility] Levetiracetam (Levetiracetam Oral Soln 500 Mg/5 Ml) 250 mg PO BID [facility] Last Admin: 02/27/23 08:44 Dose: 250 mg Documented By: AIDAN Losartan Potassium (Losartan Potassium 50 Mg Tablet) 100 mg PO DAILY [facility]; Protocol Last Admin: 02/27/23 08:44 Dose: 100 mg Documented By: AIDAN Methenamine Hippurate (Methenamine Hippurate 1 Gm Tablet) 1 gm PO DAILY [facility] Last Admin: 02/27/23 08:45 Dose: 1 gm Documented By: AIDAN Oxycodone HCl (Oxycodone Hcl Immed Release 5 Mg Tablet) 5 mg PO Q6H PRN PRN Reason: mPain Potassium Chloride (Potassium Chloride Packet 20 Meq Packet) 20 meq PO DAILY [facility] Last Admin: 02/27/23 08:44 Dose: 20 meq Documented By: AIDAN Psyllium Hydrophilic Mucilloid (Psyllium Seed 3.7 Gm Packet) 3.7 gm PO BEDTIME [facility] Last Admin: 02/26/23 23:14 Dose: 3.7 gm Documented By: JONATHAN Comments: new admit Rivaroxaban (Rivaroxaban 20 Mg Tablet) 20 mg PO DAILY@1700 [facility] Last Admin: 02/26/23 17:55 Dose: 20 mg Documented By: RAVEN Sodium Biphosphate/Sodium Phosphate (Sodium Phosphate,[place]-Dibasic 133 Ml Enema) 118 ml [place] DAILY PRN PRN Reason: Constipation Sodium Chloride (0.9 % Sodium Chloride Flush 3 Ml Syringe) 3 ml IVFLUSH QSHIFT [facility] Last Admin: 02/27/23 08:45 Dose: 3 ml Documented By: AIDAN Tamsulosin HCl (Tamsulosin Hcl 0.4 Mg Capsule) 0.4 mg PO BEDTIME [facility] Last Admin: 02/26/23 20:54 Dose: 0.4 mg Documented By: CHANTELLE Labs 02/27/23 06:03 02/27/23 06:03 Labs: Laboratory Results - last 24 hr 02/26/23 02/26/23 02/26/23 10:35 10:36 11:51 MCV 96.1 MCH 33.3 H MCHC 34.7 RDW 13.2 Plt Count 144 L D MPV 9.7 Immature Gran % (Auto) 0.2 Neut % (Auto) 50.7 Lymph % (Auto) 35.6 [place] % (Auto) 9.3 Eos % (Auto) 3.6 Baso % (Auto) 0.6 Lymph # (Auto) 1.8 [place] # (Auto) 0.5 Eos # (Auto) 0.2 Baso # (Auto) 0.0 Abs Immat Gran (auto) 0.01 Absolute Neuts (auto) 2.6 Absolute Nucleated RBC 0.000 Nucleated RBC % (auto) 0.0 PT INR Anion Gap 11 L Estim Creat Clear Calc 74.1 Estimated GFR > 60 Random Glucose 94 Fasting Glucose Lactic Acid 1.5 Calcium 9.0 Magnesium 2.2 Total Bilirubin 0.7 AST 21 ALT 19 Alkaline Phosphatase 102 Total Protein 6.3 L Albumin 2.9 L Lipase 37 Urine Color [place] A Urine Appearance Turbid Urine pH 7.5 Ur Specific [place] 1.015 Urine Protein 300 (3+) H Urine Glucose (UA) Negative Urine Ketones Negative Urine Blood Large (3+) H Urine Nitrite Positive H Ur Leukocyte Esterase Large (3+) H Urine RBC >20 H Urine WBC >50 H Ur Squamous Epith Cells 0-2 Urine Bacteria 4+ Hyaline Casts 6-10 02/26/23 02/27/23 12:17 06:03 MCV 95.7 MCH 33.1 H MCHC 34.6 RDW 13.2 Plt Count 142 L MPV 9.8 Immature Gran % (Auto) Neut % (Auto) Lymph % (Auto) [place] % (Auto) Eos % (Auto) Baso % (Auto) Lymph # (Auto) [place] # (Auto) Eos # (Auto) Baso # (Auto) Abs Immat Gran (auto) Absolute Neuts (auto) Absolute Nucleated RBC 0.000 Nucleated RBC % (auto) 0.0 PT 26.6 H D INR 2.2 H Anion Gap 9 L Estim Creat Clear Calc 74.1 Estimated GFR > 60 Random Glucose Fasting Glucose 90 Lactic Acid Calcium 8.7 Magnesium Total Bilirubin AST ALT Alkaline Phosphatase Total Protein Albumin Lipase Urine Color Urine Appearance Urine pH Ur Specific [place] Urine Protein Urine Glucose (UA) Urine Ketones Urine Blood Urine Nitrite Ur Leukocyte Esterase Urine RBC Urine WBC Ur Squamous Epith Cells Urine Bacteria Hyaline Casts Assessment and Plan (1) Kidney calculi: Status: Acute Plan 67M PMH vascular dementia (minimally verbal, bed bound, full care), history of CVA with right hemiparesis, dysphagia, neurogenic bladder with recurrent UTIs and suprapubic catheter, stage IV sacral decubitus ulcer, htn, hld, paroxysmal afib, presented with abd pain Complicated urinary tract infection due to neurogenic bladder and suprapubic catheter complicated by bilateral nephrolithiasis and right-sided hydronephrosis Urology exchanged catheter Empiric IV ceftriaxone Follow-up culture Vascular dementia At baseline hypokalemia replace History of dysphagia Continue mechanical soft diet with thin liquids History of CVA Continue Xarelto and atorvastatin Stage IV decubitus ulcer Local care Paroxysmal atrial fibrillation In sinus, continue Xarelto DVT prophylaxis with Xarelto Full code reason for continued hospitalization:awaiting culture Quality Stroke Does the patient have a stroke diagnosis?: No VTE Prior VTE?: No VTE Risk Level:: Medical - moderate - high VTE Device Contraindication: Treatment Not Indicated VTE Drug Contraindication: N/A - Med Ordered
[2023-02-27 16:00] VITALS: BP 119/81; PULSE 73; RESP 18; TEMP 36.8; O2SAT 98
--- NOTE | 2023-02-27 16:16 | MHC.CM.PN ---
PT IS A LTC RESIDENT OF [facility] CM ATTEMPTED TO CONTACT PTS PRIMARY HCP AGENT, WENDY [phone] CALL WENT TO WHICH WAS NOT SET UP TO RECEIVE MESSAGES CM CALLED THE ALTERNATE AGENT, JOCELYNE [phone] JOCELYNE WAS NOT THERE BUT HIS CONFIRMED PT IS LTC AND A BED HOLD PTS MEDICARE RIGHTS WERE DELIVERED AND A COPY WILL BE MAILED TO THE ADDRESS ON FILE HCP ON FILE PCP: MERCEDES SINGH DCP: RETURN TO [facility] VIA BLS
[2023-02-27 16:28] VITALS: BP 145/81; PULSE 68; RESP 18; TEMP 36.2; O2SAT 95
--- NOTE | 2023-02-27 16:53 | PM.UROCN ---
History of Present Illness Consult details Consult date: 02/27/23 Narrative: CC: Complicated UTI 67-year-old male [facility] Background vascular dementia with minimal verbal, bed-bound, full care Neurogenic bladder with indwelling suprapubic tube Presented from facility with abdominal discomfort Grossly positive UA at presentation to emergency room Imaging with CT scan showing right renal stone unchanged in size for the past 6 months. Baseline chemistry shows creatinine 0.86 ring no evidence of obstruction. Infected urine. Suprapubic tube 16 Ni[place]an No evidence that patient is on any form of suppression for UTI Recommend - Upsize Walker catheter 18 [place]an - start combination methenamine with vitamin-C for chemoprophylaxis Review of Systems Constitutional: Constitutional: Reports as per HPI and Reports no additional constitutional complaints Cardiovascular: Cardiovascular: Reports as per HPI and Reports no additional cardiovascular complaints Respiratory: Respiratory: Reports as per HPI and Reports no additional respiratory complaints Gastrointestinal: Gastrointestinal: Reports as per HPI and Reports no additional gastrointestinal complaints Genitourinary: Genitourinary: Reports as per HPI Musculoskeletal: Musculoskeletal: Reports no additional musculoskeletal complaints and Reports as per HPI Neurologic: Reports system reviewed and no additional complaints, except as documented and Reports as per HPI [facility] Past Medical History Medical History Seizure disorder Chronic constipation Decubitus ulcer of sacral area Osteomyelitis Septic shock C. 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 Mother No problems noted. Surgical History Surgical History No pertinent past surgical history Social History Social History Household Members: None [facility] [place] [phone] Housing: Half-Way Are you a primary manager intensive care unit to a significant other at home: No Do you presently have visiting nurse or other home services: No Unable to assess alcohol history related to: Unable to respond Alcohol intake: never Comment: patient sleeping Patient Tobacco Use Status: Tobacco use Unknown Second Hand Smoke Exposure: No Advance Directives Date on File: 07/25/21 service: No Current occupational status: disabled Meds Allergies Allergy/AdvReac Type Severity Reaction Status Date / Time No Known Allergies Allergy Verified 12/22/22 01:21 [No Known Allergies*] Active Medications: Current Medications Acetaminophen (Acetaminophen 325 Mg Tablet) 650 mg PO Q4H PRN PRN Reason: fever/pain Ascorbic Acid (Ascorbic Acid 500 Mg Tablet) 1,000 mg PO DAILY [facility] Last Admin: 02/27/23 08:44 Dose: 1,000 mg Atorvastatin Calcium (Atorvastatin Calcium 80 Mg Tablet) 80 mg PO DAILY [facility] Last Admin: 02/27/23 08:44 Dose: 80 mg Bisacodyl (Bisacodyl 10 Mg Supp.Rect) 10 mg [place] DAILY PRN PRN Reason: Constipation Calcium Carbonate/Cholecalciferol (Calcium + Vitamin D 250 Mg Tablet) 500 mg PO BID [facility] Last Admin: 02/27/23 08:44 Dose: 500 mg Ferrous Sulfate (Ferrous Sulfate 324 Mg Tablet.Dr) 324 mg PO DAILY [facility] Last Admin: 02/27/23 08:44 Dose: 324 mg Gabapentin (Gabapentin 300 Mg Capsule) 300 mg PO BEDTIME [facility] Last Admin: 02/26/23 20:54 Dose: 300 mg Ceftriaxone Sodium 1 gm/ (Sodium Chloride) 50 mls @ 100 mls/hr IV Q24H [facility] Last Infusion: 02/27/23 13:36 Dose: Infused Levetiracetam (Levetiracetam Oral Soln 500 Mg/5 Ml) 250 mg PO BID [facility] Last Admin: 02/27/23 08:44 Dose: 250 mg Losartan Potassium (Losartan Potassium 50 Mg Tablet) 100 mg PO DAILY [facility]; Protocol Last Admin: 02/27/23 08:44 Dose: 100 mg Methenamine Hippurate (Methenamine Hippurate 1 Gm Tablet) 1 gm PO DAILY [facility] Last Admin: 02/27/23 08:45 Dose: 1 gm Oxycodone HCl (Oxycodone Hcl Immed Release 5 Mg Tablet) 5 mg PO Q6H PRN PRN Reason: mPain Potassium Chloride (Potassium Chloride Packet 20 Meq Packet) 20 meq PO DAILY [facility] Last Admin: 02/27/23 08:44 Dose: 20 meq Psyllium Hydrophilic Mucilloid (Psyllium Seed 3.7 Gm Packet) 3.7 gm PO BEDTIME [facility] Last Admin: 02/26/23 23:14 Dose: 3.7 gm Rivaroxaban (Rivaroxaban 20 Mg Tablet) 20 mg PO DAILY@1700 [facility] Last Admin: 02/27/23 16:04 Dose: 20 mg Sodium Biphosphate/Sodium Phosphate (Sodium Phosphate,[place]-Dibasic 133 Ml Enema) 118 ml [place] DAILY PRN PRN Reason: Constipation Sodium Chloride (0.9 % Sodium Chloride Flush 3 Ml Syringe) 3 ml IVFLUSH QSHIFT [facility] Last Admin: 02/27/23 16:05 Dose: 3 ml Tamsulosin HCl (Tamsulosin Hcl 0.4 Mg Capsule) 0.4 mg PO BEDTIME [facility] Last Admin: 02/26/23 20:54 Dose: 0.4 mg Home Medications Medication Instructions Recorded Confirmed Last Taken Type acetaminophen 325 mg tablet 650 mg PO Q4H PRN fever/pain 02/16/21 02/26/23 Unknown History bisacodyl 10 mg rectal suppository 10 mg [place] DAILY PRN Constipation 02/16/21 02/26/23 Unknown History calcium carbonate 600 mg-vitamin 1 tab PO BID 02/16/21 02/26/23 02/14/22 History D3 5 mcg (200 unit) tablet magnesium hydroxide 400 mg/5 mL 30 ml PO DAILY PRN Constipation 02/16/21 02/26/23 Unknown History oral suspension (Milk of Magnesia) levetiracetam 100 mg/mL oral 2.5 ml PO BID 02/26/21 02/26/23 02/14/22 History solution atorvastatin 80 mg tablet 80 mg PO DAILY 01/26/22 02/26/23 02/14/22 History rivaroxaban 20 mg tablet (Xarelto) 20 mg PO DAILY@1700 01/26/22 02/26/23 02/14/22 History magnesium citrate 150 ml PO DAILY PRN Constipation 02/15/22 02/26/23 Unknown History oxycodone 5 mg tablet 5 mg PO Q6H PRN Pain 02/15/22 02/26/23 Unknown History sodium phosphates 19 gram-7 118 ml [place] DAILY PRN Constipation 02/15/22 02/26/23 Unknown History gram/118 mL enema (Fleet Enema) acetaminophen 325 mg tablet 650 mg PO BEDTIME 10/03/22 02/26/23 Unknown History (Tylenol) acetic acid 0.25 % irrigation 50 ml irrigation TUTHSA@2100 10/03/22 02/26/23 Unknown History solution ferrous sulfate 325 mg (65 mg 325 mg PO DAILY 12/22/22 02/26/23 Unknown History iron) tablet potassium chloride 20 mEq oral 20 meq PO DAILY 12/22/22 02/26/23 Unknown History packet Physical Exam Vital Signs: Vital Signs: Last Vital Signs Temp 97.2 F 02/27/23 16:28 Pulse 68 02/27/23 16:28 Resp 18 02/27/23 16:28 BP 145/81 H 02/27/23 16:28 Pulse Ox 95 02/27/23 16:28 O2 Del Method Room Air 02/27/23 16:28 BMI result Body Mass Index 25.8 Const: General: cooperative, healthy appearing, comfortable and no acute distress Orientation/consciousness: patient oriented x3 HEENT: Face and sinus: Yes normal facial exam Mouth: moist mucous membranes Neck: Neck: Yes normal visual inspection, Yes full ROM and Yes trachea midline Chest: Chest palpation & inspection: normal inspection of the chest Resp: Effort & Inspection: normal respiratory effort, able to speak in complete sentences and no respiratory distress GI: Inspection: Yes normal to inspection Back/Spine/Pelvis: Cervical Spine: normal cervical lordosis Thoracic/Lumbar Spine: thoracic and lumbar spine normal to inspection Skin: General skin exam: no rashes or lesions noted Neuro: General: patient oriented x3, tone normal and moves all extremities Extrem: General: Yes normal to inspection and Yes capillary refill normal Results Labs 02/27/23 06:03 02/27/23 06:03 Labs: Abnormal lab results 02/27/23 Range/Units 06:03 WBC 4.3 L (4.8-10.8) X10*3/uL RBC 3.50 L (4.60-5.80) X10*6/uL Hgb 11.6 L (14.0-18.0) g/dl Hct 33.5 L (42.0-52.0) % MCH 33.1 H (27.0-33.0) pg Plt Count 142 L (160-400) X10*3/uL Potassium 3.1 L (3.3-5.1) mmol/L Anion Gap 9 L (12-20) BUN 22 H (9-16) mg/dL Short CBC 02/27/23 Range/Units 06:03 WBC 4.3 L (4.8-10.8) X10*3/uL Hgb 11.6 L (14.0-18.0) g/dl Hct 33.5 L (42.0-52.0) % Plt Count 142 L (160-400) X10*3/uL BMP 02/27/23 06:03 Sodium 141 Potassium 3.1 L Chloride 107 Carbon Dioxide 28 BUN 22 H Creatinine 0.86 Calcium 8.7 Urine 02/26/23 Range/Units 10:35 Urine Color [place] A Urine Appearance Turbid Urine pH 7.5 (5.0-9.0) Ur Specific [place] 1.015 (1.005-1.025) Urine Protein 300 (3+) H (Neg-Trace) mg/dL Urine Glucose (UA) Negative (Negative) mg/dL All other labs normal. Assessment and Plan (1) Kidney calculi: Status: Acute (2) Complicated urinary tract infection: Status: Acute Plan Upsize SPT to 18 [place] Treat with Abx for 5 days Start methanemine and vit C Procedures Date of Service Date of Service: 02/27/23
[2023-02-28] VITALS: BP 124/69; PULSE 66; RESP 16; TEMP 36.9; O2SAT 96
[2023-02-28 08:00] VITALS: BP 107/68; PULSE 61; RESP 18; TEMP 36.1; O2SAT 97
--- NOTE | 2023-02-28 09:25 | HO.PM.IMPN ---
Subjective Subjective Date of Service: 02/28/23 Review of Systems Review of Systems: Yes Unobtainable due to mental condition Physical Exam Vital Signs: Vital Signs: Last Vital Signs Temp 97.0 F 02/28/23 08:00 Pulse 61 02/28/23 08:00 Resp 18 02/28/23 08:00 BP 107/68 02/28/23 08:00 Pulse Ox 97 02/28/23 08:00 O2 Del Method Room Air 02/28/23 08:00 BMI result Body Mass Index 25.8 Const: General: cooperative, healthy appearing, comfortable and no acute distress Orientation/consciousness: patient oriented x3 HEENT: Face and sinus: Yes normal facial exam Mouth: moist mucous membranes Neck: Neck: Yes normal visual inspection, Yes full ROM and Yes trachea midline Chest: Chest palpation & inspection: normal inspection of the chest Resp: Effort & Inspection: normal respiratory effort, able to speak in complete sentences and no respiratory distress GI: Inspection: Yes normal to inspection Back/Spine/Pelvis: Cervical Spine: normal cervical lordosis Thoracic/Lumbar Spine: thoracic and lumbar spine normal to inspection Skin: General skin exam: no rashes or lesions noted Neuro: General: patient oriented x3, tone normal and moves all extremities Extrem: General: Yes normal to inspection and Yes capillary refill normal Objective Data Active Medications Acetaminophen (Acetaminophen 325 Mg Tablet) 650 mg PO Q4H PRN PRN Reason: fever/pain Ascorbic Acid (Ascorbic Acid 500 Mg Tablet) 1,000 mg PO DAILY [facility] Last Admin: 02/28/23 07:13 Dose: 1,000 mg Documented By: JITENDRA Atorvastatin Calcium (Atorvastatin Calcium 80 Mg Tablet) 80 mg PO DAILY [facility] Last Admin: 02/28/23 07:13 Dose: 80 mg Documented By: JITENDRA Bisacodyl (Bisacodyl 10 Mg Supp.Rect) 10 mg [place] DAILY PRN PRN Reason: Constipation Calcium Carbonate/Cholecalciferol (Calcium + Vitamin D 250 Mg Tablet) 500 mg PO BID [facility] Last Admin: 02/28/23 07:13 Dose: 500 mg Documented By: JITENDRA Ferrous Sulfate (Ferrous Sulfate 324 Mg Tablet.) 324 mg PO DAILY [facility] Last Admin: 02/28/23 07:12 Dose: 324 mg Documented By: JITENDRA Gabapentin (Gabapentin 300 Mg Capsule) 300 mg PO BEDTIME [facility] Last Admin: 02/27/23 21:16 Dose: 300 mg Documented By: ANDRÉS Ceftriaxone Sodium 1 gm/ (Sodium Chloride) 50 mls @ 100 mls/hr IV Q24H [facility] Last Infusion: 02/27/23 13:36 Dose: Infused Documented By: AIDAN Levetiracetam (Levetiracetam Oral Soln 500 Mg/5 Ml) 250 mg PO BID [facility] Last Admin: 02/28/23 07:12 Dose: 250 mg Documented By: JITENDRA Losartan Potassium (Losartan Potassium 50 Mg Tablet) 100 mg PO DAILY [facility]; Protocol Last Admin: 02/28/23 07:13 Dose: 100 mg Documented By: JITENDRA Methenamine Hippurate (Methenamine Hippurate 1 Gm Tablet) 1 gm PO DAILY [facility] Last Admin: 02/28/23 07:13 Dose: 1 gm Documented By: JITENDRA Methenamine Hippurate (Methenamine Hippurate 1 Gm Tablet) 1 gm PO BID [facility] Last Admin: 02/28/23 07:13 Dose: 1 gm Documented By: JITENDRA Oxycodone HCl (Oxycodone Hcl Immed Release 5 Mg Tablet) 5 mg PO Q6H PRN PRN Reason: mPain Last Admin: 02/28/23 07:12 Dose: 5 mg Documented By: JITENDRA Potassium Chloride (Potassium Chloride Packet 20 Meq Packet) 20 meq PO DAILY [facility] Last Admin: 02/28/23 07:13 Dose: 20 meq Documented By: JITENDRA Psyllium Hydrophilic Mucilloid (Psyllium Seed 3.7 Gm Packet) 3.7 gm PO BEDTIME [facility] Last Admin: 02/27/23 21:16 Dose: 3.7 gm Documented By: ANDRÉS Rivaroxaban (Rivaroxaban 20 Mg Tablet) 20 mg PO DAILY@1700 [facility] Last Admin: 02/27/23 16:04 Dose: 20 mg Documented By: COUGHLM Sodium Biphosphate/Sodium Phosphate (Sodium Phosphate,[place]-Dibasic 133 Ml Enema) 118 ml [place] DAILY PRN PRN Reason: Constipation Sodium Chloride (0.9 % Sodium Chloride Flush 3 Ml Syringe) 3 ml IVFLUSH QSHIFT [facility] Last Admin: 02/28/23 07:13 Dose: 3 ml Documented By: JITENDRA Tamsulosin HCl (Tamsulosin Hcl 0.4 Mg Capsule) 0.4 mg PO BEDTIME [facility] Last Admin: 02/27/23 21:15 Dose: 0.4 mg Documented By: ANDRÉS Labs 02/27/23 06:03 02/27/23 06:03 Labs: Laboratory Results - last 24 hr 02/26/23 02/27/23 10:36 18:07 Stl C. cayetanensis PCR Cancelled Stool Rotavirus A PCR Cancelled Stl Adenov F 40/41 PCR Cancelled Stool Astrovirus (PCR) Cancelled Stool Campylobacter PCR Cancelled Stool Cryptosporidium PCR Cancelled Stl Sh Tox Pr E STEC PCR Cancelled Stool E coli O157 PCR Cancelled Stl Enterotoxigenic E PCR Cancelled Stool EPEC (PCR) Cancelled Stool EAEC (PCR) Cancelled Stl E. histolytica PCR Cancelled Stool Giardia Lamblia PCR Cancelled Stl P. shigelloides PCR Cancelled Stool Salmonella PCR Cancelled Stool Sapovirus (PCR) Cancelled Stl Shigella/EIEC PCR Cancelled St Y.enterocolitica PCR Cancelled Stool Vibrio (PCR) Cancelled Stl Vibrio cholerae PCR Cancelled Stl Norovirus GI/GII PCR Cancelled C. difficile Tox B Gene Cancelled POSITIVE A* C. difficile Toxin A&B Negative C. difficile Interpret SEE NOTE Microbiology Microbiology Results: Microbiology 02/26/23 12:24 Blood Culture - Preliminary Blood - Venous No growth after 24 hours. 02/26/23 12:17 Blood Culture - Preliminary Blood - Venous No growth after 24 hours. 02/26/23 Unknown Urine Culture - Preliminary Urine clean catch - Urine lawson top Culture in progress. Assessment and Plan (1) Kidney calculi: Status: Acute Plan 67M PMH vascular dementia (minimally verbal, bed bound, full care), history of CVA with right hemiparesis, dysphagia, neurogenic bladder with recurrent UTIs and suprapubic catheter, stage IV sacral decubitus ulcer, htn, hld, paroxysmal afib, presented with abd pain Complicated urinary tract infection due to neurogenic bladder and suprapubic catheter complicated by bilateral nephrolithiasis and right-sided hydronephrosis Urology exchanged catheter Empiric IV ceftriaxone Follow-up culture Vascular dementia At baseline hypokalemia replace History of dysphagia Continue mechanical soft diet with thin liquids History of CVA Continue Xarelto and atorvastatin Stage IV decubitus ulcer Local care Paroxysmal atrial fibrillation In sinus, continue Xarelto DVT prophylaxis with Xarelto Full code reason for continued hospitalization:awaiting culture Quality Stroke Does the patient have a stroke diagnosis?: No VTE Prior VTE?: No VTE Risk Level:: Medical - moderate - high VTE Device Contraindication: Treatment Not Indicated VTE Drug Contraindication: N/A - Med Ordered
[2023-02-28 16:33] VITALS: BP 123/69; PULSE 68; RESP 20; TEMP 37.2; O2SAT 100
[2023-02-28 19:38] VITALS: BP 100/59; PULSE 75; RESP 18; TEMP 37.1; O2SAT 97
--- NOTE | 2023-02-28 22:56 | PC.NURSE ---
pt able to shake and nod head for yes no questions. pt unable to articulate words
[2023-03-01] VITALS: BP 100/63; PULSE 83; RESP 16; TEMP 36.3; O2SAT 97
[2023-03-01 07:40] VITALS: BP 86/51; PULSE 56; RESP 16; TEMP 37.1; O2SAT 97
--- NOTE | 2023-03-01 09:01 | HO.PM.IMPN ---
Subjective Subjective Date of Service: 03/01/23 Interval History: asymptomatic hypotensive episode this am Physical Exam Vital Signs: Vital Signs: Last Vital Signs Temp 98.7 F 03/01/23 07:40 Pulse 56 03/01/23 07:40 Resp 16 03/01/23 07:40 BP 86/51 L 03/01/23 07:40 Pulse Ox 97 03/01/23 07:40 O2 Del Method Room Air 03/01/23 07:40 BMI result Body Mass Index 25.8 Const: General: cooperative, healthy appearing, comfortable and no acute distress Orientation/consciousness: patient oriented x3 HEENT: Face and sinus: Yes normal facial exam Mouth: moist mucous membranes Neck: Neck: Yes normal visual inspection, Yes full ROM and Yes trachea midline Chest: Chest palpation & inspection: normal inspection of the chest Resp: Effort & Inspection: normal respiratory effort, able to speak in complete sentences and no respiratory distress GI: Inspection: Yes normal to inspection Back/Spine/Pelvis: Cervical Spine: normal cervical lordosis Thoracic/Lumbar Spine: thoracic and lumbar spine normal to inspection Skin: General skin exam: no rashes or lesions noted Neuro: General: patient oriented x3, tone normal and moves all extremities Extrem: General: Yes normal to inspection and Yes capillary refill normal Objective Data Active Medications Acetaminophen (Acetaminophen 325 Mg Tablet) 650 mg PO Q4H PRN PRN Reason: fever/pain Ascorbic Acid (Ascorbic Acid 500 Mg Tablet) 1,000 mg PO DAILY [facility] Last Admin: 02/28/23 07:13 Dose: 1,000 mg Documented By: JITENDRA Atorvastatin Calcium (Atorvastatin Calcium 80 Mg Tablet) 80 mg PO DAILY [facility] Last Admin: 02/28/23 07:13 Dose: 80 mg Documented By: JITENDRA Bisacodyl (Bisacodyl 10 Mg Supp.Rect) 10 mg [place] DAILY PRN PRN Reason: Constipation Calcium Carbonate/Cholecalciferol (Calcium + Vitamin D 250 Mg Tablet) 500 mg PO BID [facility] Last Admin: 02/28/23 19:42 Dose: 500 mg Documented By: DESEAN Ferrous Sulfate (Ferrous Sulfate 324 Mg Tablet.) 324 mg PO DAILY [facility] Last Admin: 02/28/23 07:12 Dose: 324 mg Documented By: JITENDRA Gabapentin (Gabapentin 300 Mg Capsule) 300 mg PO BEDTIME [facility] Last Admin: 01/07/24 19:42 Dose: 300 mg Documented By: DESEAN Ceftriaxone Sodium 1 gm/ (Sodium Chloride) 50 mls @ 100 mls/hr IV Q24H [facility] Last Infusion: 02/28/23 13:02 Dose: Infused Documented By: DESEAN Levetiracetam (Levetiracetam Oral Soln 500 Mg/5 Ml) 250 mg PO BID [facility] Last Admin: 02/28/23 19:42 Dose: 250 mg Documented By: DESEAN Losartan Potassium (Losartan Potassium 50 Mg Tablet) 100 mg PO DAILY [facility]; Protocol Last Admin: 02/28/23 07:13 Dose: 100 mg Documented By: JITENDRA Methenamine Hippurate (Methenamine Hippurate 1 Gm Tablet) 1 gm PO DAILY [facility] Last Admin: 02/28/23 07:13 Dose: 1 gm Documented By: JITENDRA Methenamine Hippurate (Methenamine Hippurate 1 Gm Tablet) 1 gm PO BID [facility] Last Admin: 02/28/23 19:42 Dose: 1 gm Documented By: DESEAN Oxycodone HCl (Oxycodone Hcl Immed Release 5 Mg Tablet) 5 mg PO Q6H PRN PRN Reason: mPain Last Admin: 03/01/23 08:13 Dose: 5 mg Documented By: SKYLER Potassium Chloride (Potassium Chloride Packet 20 Meq Packet) 20 meq PO DAILY [facility] Last Admin: 02/28/23 07:13 Dose: 20 meq Documented By: JITENDRA Psyllium Hydrophilic Mucilloid (Psyllium Seed 3.7 Gm Packet) 3.7 gm PO BEDTIME [facility] Last Admin: 02/28/23 19:42 Dose: 3.7 gm Documented By: DESEAN Rivaroxaban (Rivaroxaban 20 Mg Tablet) 20 mg PO DAILY@1700 [facility] Last Admin: 02/28/23 17:12 Dose: 20 mg Documented By: DESEAN Sodium Biphosphate/Sodium Phosphate (Sodium Phosphate,[place]-Dibasic 133 Ml Enema) 118 ml [place] DAILY PRN PRN Reason: Constipation Sodium Chloride (0.9 % Sodium Chloride Flush 3 Ml Syringe) 3 ml IVFLUSH QSHIFT [facility] Last Admin: 03/01/23 08:04 Dose: 3 ml Documented By: SKYLER Tamsulosin HCl (Tamsulosin Hcl 0.4 Mg Capsule) 0.4 mg PO BEDTIME [facility] Last Admin: 02/28/23 19:43 Dose: 0.4 mg Documented By: DESEAN Labs 02/27/23 06:03 02/27/23 06:03 Labs: Laboratory Results - last 24 hr 02/26/23 02/27/23 10:36 18:07 Stl C. cayetanensis PCR Cancelled Not Detected Stool Rotavirus A PCR Cancelled Not Detected Stl Adenov F 40/41 PCR Cancelled Not Detected Stool Astrovirus (PCR) Cancelled Not Detected Stool Campylobacter PCR Cancelled Not Detected Stool Cryptosporidium PCR Cancelled Not Detected Stl Sh Tox Pr E STEC PCR Cancelled Not Detected Stool E coli O157 PCR Cancelled Not applicable Stl Enterotoxigenic E PCR Cancelled Not Detected Stool EPEC (PCR) Cancelled Not Detected Stool EAEC (PCR) Cancelled Not Detected Stl E. histolytica PCR Cancelled Not Detected Stool Giardia Lamblia PCR Cancelled Not Detected Stl P. shigelloides PCR Cancelled Not Detected Stool Salmonella PCR Cancelled Not Detected Stool Sapovirus (PCR) Cancelled Not Detected Stl Shigella/EIEC PCR Cancelled Not Detected St Y.enterocolitica PCR Cancelled Not Detected Stool Vibrio (PCR) Cancelled Not Detected Stl Vibrio cholerae PCR Cancelled Not Detected Stl Norovirus GI/GII PCR Cancelled Not Detected C. difficile Tox B Gene Cancelled Microbiology Microbiology Results: Microbiology 02/26/23 12:24 Blood Culture - Preliminary Blood - Venous No growth after 48 hours. 02/26/23 12:17 Blood Culture - Preliminary Blood - Venous No growth after 48 hours. 02/26/23 Unknown Urine Culture - Final Urine clean catch - Urine lawson top Assessment and Plan (1) Kidney calculi: Status: Acute Plan 67M PMH vascular dementia (minimally verbal, bed bound, full care), history of CVA with right hemiparesis, dysphagia, neurogenic bladder with recurrent UTIs and suprapubic catheter, stage IV sacral decubitus ulcer, htn, hld, paroxysmal afib, presented with abd pain Complicated urinary tract infection due to neurogenic bladder and suprapubic catheter complicated by bilateral nephrolithiasis and right-sided hydronephrosis Urology exchanged catheter Empiric IV ceftriaxone, urine culture - normal logan hypotension due to dehydration from poor intake, not sepsis ivf, monitor, Vascular dementia At baseline hypokalemia replaced History of dysphagia Continue mechanical soft diet with thin liquids History of CVA Continue Xarelto and atorvastatin Stage IV decubitus ulcer Local care Paroxysmal atrial fibrillation In sinus, continue Xarelto DVT prophylaxis with Xarelto Full code reason for continued hospitalization:ivf for dehydration/hypotension Quality Stroke Does the patient have a stroke diagnosis?: No VTE Prior VTE?: No VTE Risk Level:: Medical - moderate - high VTE Device Contraindication: Treatment Not Indicated VTE Drug Contraindication: N/A - Med Ordered
[2023-03-01 11:21] VITALS: BP 103/56; PULSE 66; RESP 18; TEMP 36.6; O2SAT 97
--- NOTE | 2023-03-01 11:33 | MHC.CM.PN ---
EMR reviewed. Per MD rounds patient is not medically cleared for dc. CM will continue to follow.
[2023-03-01 13:22] VITALS: BMI 25.8
--- NOTE | 2023-03-01 13:28 | MHC.CLN ---
NUTRITION DIET=REGULAR, GROUND. PO VARIABLE, 25-100%. INCREASED NUTRITION NEEDS DUE TO STAGE IV SACRAL PRESSURE INJURY. ADDING ENSURE MAX PROTEIN BID TO PROMOTE WOUND HEALING. SUPPLEMENT PROVIDES 300 KCALS, 60 G PROTEIN. FOLLOW FOR INTAKE AND WOUND HEALING. SEE CLINICAL NUTRITION ASSESSMENT 03/01/23.
[2023-03-01 14:56] VITALS: BP 124/73; PULSE 53; RESP 18; TEMP 36; O2SAT 98
--- NOTE | 2023-03-01 15:43 | PC.NURSE ---
Hypotensive - BP 86/51. HR 56. Dr. Pyle notified. 1L IV NS bolus ordered and given. Losartan held this AM. BP after bolus 103/56. HR 66.
[2023-03-01] MEDS: oxyCODONE HCl Immed Release 5 MG TABLET PO (21:35)
[2023-03-01] MEDS: Psyllium seed 3.7 GM PACKET PO (21:36)
[2023-03-01] MEDS: levETIRAcetam Oral Soln 500 MG/5 ML 250 MG PO (21:36)
[2023-03-01] MEDS: Calcium + Vitamin D 250 MG TABLET 500 MG PO (21:37)
[2023-03-01] MEDS: Tamsulosin HCL 0.4 MG CAPSULE PO (21:37)
[2023-03-01] MEDS: Gabapentin 300 MG CAPSULE PO (21:37)
[2023-03-01] MEDS: Methenamine Hippurate 1 GM TABLET PO (21:38)
[2023-03-01 23:45] VITALS: BP 125/87; PULSE 65; RESP 16; TEMP 36.2; O2SAT 98
[2023-03-02 07:34] VITALS: BP 146/82; PULSE 65; RESP 16; TEMP 36; O2SAT 98
[2023-03-02 07:38] LABS: Hematocrit 33.4 % (42.0-52.0); Hemoglobin 11.3 g/dl (14.0-18.0); Mean Corpuscular HGB Conc 33.8 g/dl (31.0-36.0); Mean Corpuscular Hemoglobin 32.8 pg (27.0-33.0); Mean Corpuscular Volume 97.1 fL (80.0-98.0); Mean Platelet Volume 9.9 fL (9.4-12.4); Platelet Count 153 X10*3/uL (160-400); Red Blood Count 3.44 X10*6/uL (4.60-5.80); Red Cell Distribution Width 13.2 % (11.0-16.0); White Blood Count 4.6 X10*3/uL (4.8-10.8)
[2023-03-02 07:51] LABS: Anion Gap 8 (12-20); Blood Urea Nitrogen 18 mg/dL (9-16); Calcium 8.4 mg/dL (8.4-10.2); Carbon Dioxide 26 mmol/L (22-29); Chloride 108 mmol/L (96-108); Creatinine Clr Calc Pharmacy 70.8; Estimated Glomerular Filt Rate > 60; Glucose Fasting 90 mg/dL (60-99); Potassium 2.8 mmol/L (3.3-5.1); Sodium 139 mmol/L (135-145)
--- NOTE | 2023-03-02 08:50 | PM.DS ---
DS: Providers Provider Date of Service: 03/02/23 Date of admission: 02/26/23 16:15 Primary care physician: Lorraine Wiley MD Consults: 02/26/23 16:13 Consult to Urology Routine Consulting Provider: Hardeep Sevilla Reason for consultation: recurrent uti with Suprapubic cath and chronic upj stone Has provider been notified: Yes 03/01/23 15:20 Consult to Wound Care Routine Reason for consultation: open area on coccyx DS: Diagnosis Discharge Diagnosis (1) Kidney calculi: Status: Acute DS: Summary Hospital Course Hospital Course: from initial hpi: 67M PMH vascular dementia (minimally verbal, bed bound, full care), history of CVA with right hemiparesis, dysphagia, neurogenic bladder with recurrent UTIs and suprapubic catheter, stage IV sacral decubitus ulcer, htn, hld, paroxysmal afib, presented with abd pain. Patient unable to provide history himself. [facility], reportedly having decreased intake, more lethargy, grabbing at abdomen. In ED, UA grossly positive, CT abdomen shows large right renal pelvic and UPJ stone with mild hydronephrosis and bilateral nephrolithiasis without left-sided hydronephrosis. hospital course: Patient was admitted for complicated urinary tract infection due to neurogenic bladder and suprapubic catheter complicated by bilateral nephrolithiasis and right hydronephrosis. He was seen by Urology who exchanged catheter. He was treated with empiric IV ceftriaxone, urine culture grew normal logan, on discharge he will be given 5 more days of cefuroxime. Patient noted to be hypotensive this was due to dehydration from poor intake not sepsis, he responded to IV fluids. For vascular dementia he remained at baseline. For acute hypokalemia he received for placement. For history of dysphagia he was continued on mechanical soft diet with thin liquids. For history of CVA he was continued on Xarelto on atorvastatin. For stage IV decubitus ulcer he was continued with local care. For paroxysmal atrial fibrillation he was in sinus rhythm and continued on Xarelto. Patient is back to baseline and will be discharged back to [facility] facility. Time Attestation Discharge coordination time: Greater than 30 minutes Quality: Safe Use of Opioids Does Pt have an Active Cancer Diagnosis on the Problem List?: No Quality: Stroke Does the patient have a stroke diagnosis?: No Physical Exam Vital Signs: Vital Signs: Last Vital Signs Temp 96.8 F 03/02/23 07:34 Pulse 65 03/02/23 07:34 Resp 16 03/02/23 07:34 BP 146/82 H 03/02/23 07:34 Pulse Ox 98 03/02/23 07:34 O2 Del Method Room Air 03/02/23 07:34 BMI result Body Mass Index 25.8 Const: General: cooperative, healthy appearing, comfortable and no acute distress Orientation/consciousness: patient oriented x3 HEENT: Face and sinus: Yes normal facial exam Mouth: moist mucous membranes Neck: Neck: Yes normal visual inspection, Yes full ROM and Yes trachea midline Chest: Chest palpation & inspection: normal inspection of the chest Resp: Effort & Inspection: normal respiratory effort, able to speak in complete sentences and no respiratory distress GI: Inspection: Yes normal to inspection Back/Spine/Pelvis: Cervical Spine: normal cervical lordosis Thoracic/Lumbar Spine: thoracic and lumbar spine normal to inspection Skin: General skin exam: no rashes or lesions noted Neuro: General: patient oriented x3, tone normal and moves all extremities Extrem: General: Yes normal to inspection and Yes capillary refill normal DS: Data Data Completed and Pending Completed studies during hospitalization [Text1]: Procedures Drainage of Bladder with Drainage Device, Percutaneous Endoscopic Approach (06/23/21) Transfusion of Nonautologous Red Blood Cells into Peripheral Vein, Percutaneous Approach (12/23/22) Labs on day of discharge: Laboratory Results - last 24 hr 03/02/23 05:42 WBC 4.6 L RBC 3.44 L Hgb 11.3 L Hct 33.4 L MCV 97.1 MCH 32.8 MCHC 33.8 RDW 13.2 Plt Count 153 L MPV 9.9 Absolute Nucleated RBC 0.000 Nucleated RBC % (auto) 0.0 Sodium 139 Potassium 2.8 L Chloride 108 Carbon Dioxide 26 Anion Gap 8 L BUN 18 H Creatinine 0.90 Estim Creat Clear Calc 70.8 Estimated GFR > 60 Fasting Glucose 90 Calcium 8.4 Preliminary micro results at discharge 02/26/23 12:24 Blood Culture - Preliminary Blood - Venous No growth after 48 hours. 02/26/23 12:17 Blood Culture - Preliminary Blood - Venous No growth after 48 hours. Discharge Plan Discharge Anticipated Discharge Date/Time: 03/02/23 08:45 Patient Disposition: [facility] SNF Discharge Diagnosis: uti Referrals: Elder,Lorraine, MD [Primary Care Provider] - 1 Week Discharge Medications: New cefuroxime axetil 500 mg tablet 500 mg PO BID Qty: 10 0RF Continued (DME) wet wipes See Rx Instructions .ROUTE .MEDSUPPLY Qty: 5 3RF Rx Instructions: As directed levetiracetam 100 mg/mL solution 2.5 ml PO BID acetaminophen 325 mg Tablet 650 mg PO Q4H PRN (Reason: fever/pain) calcium carbonate-vitamin D3 600 mg-5 mcg (200 unit) Tablet 1 tab PO BID magnesium hydroxide [Milk of Magnesia] 400 mg/5 mL Suspension 30 ml PO DAILY PRN (Reason: Constipation) bisacodyl 10 mg Suppository 10 mg PA DAILY PRN (Reason: Constipation) Fleet Enema 19-7 gram/118 mL Enema 118 ml PA DAILY PRN (Reason: Constipation) magnesium citrate Solution 150 ml PO DAILY PRN (Reason: Constipation) oxycodone 5 mg Tablet 5 mg PO Q6H PRN (Reason: Pain) potassium chloride 20 mEq Packet 20 meq PO DAILY ferrous sulfate 325 mg (65 mg iron) Tablet 325 mg PO DAILY acetaminophen [Tylenol] 325 mg Tablet 650 mg PO BEDTIME acetic acid 0.25 % Solution 50 ml IRRIGATION TUTHSA@2100 Rx Instructions: for urinary catheter flush Metamucil Fiber Singles 3.4 gram Powder In Packet 3.4 g PO BEDTIME Qty: 30 0RF losartan 100 mg tablet 100 mg PO DAILY 90 Days Qty: 90 4RF Hold Instructions: Monitor BP at facility and restart if needed. gabapentin 300 mg capsule 300 mg PO BEDTIME 30 Days Qty: 30 0RF (DME) miscellaneous medical supply Misc See Rx Instructions .ROUTE .MEDSUPPLY Qty: 1 0RF Rx Instructions: RUE resting hand Splint/Sling As directed, Dx: G81.91, I67.89, duration 999 days/life time tamsulosin 0.4 mg capsule 0.4 mg PO BEDTIME 90 Days Qty: 90 1RF Xarelto 20 mg tablet 20 mg PO DAILY@1700 Hold Instructions: Resume on 12/25/22. atorvastatin 80 mg tablet 80 mg PO DAILY ascorbic acid (vitamin C) 1,000 mg tablet 1,000 mg PO DAILY 90 Days Qty: 90 1RF methenamine hippurate 1 gram tablet 1 g PO daily 90 Days Qty: 90 1RF Discharge Orders: Discharge Order (Routine); Ordered 03/02/23 Ordered By: Ambrose Pyle Diet: Advance to usual diet Activity on Discharge: As tolerated Stand Alone Forms: Patient Portal Discharge page Care Plan Goals: recovery Health Concerns: uti Plan of Treatment: 5 more days ceftin Assessment: see above
[2023-03-02] MEDS: Losartan Potassium 50 MG TABLET 100 MG PO (10:22)
[2023-03-02] MEDS: Potassium Chloride Packet 20 MEQ PACKET PO (10:22)
[2023-03-02] MEDS: Ferrous Sulfate 324 MG TABLET.DR PO (10:22)
[2023-03-02] MEDS: Methenamine Hippurate 1 GM TABLET PO ×2 (10:22)
[2023-03-02] MEDS: Atorvastatin Calcium 80 MG TABLET PO (10:22)
[2023-03-02] MEDS: Ascorbic Acid 500 MG TABLET 1000 MG PO (10:22)
[2023-03-02] MEDS: oxyCODONE HCl Immed Release 5 MG TABLET PO (10:22)
[2023-03-02] MEDS: Calcium + Vitamin D 250 MG TABLET 500 MG PO (10:22)
[2023-03-02] MEDS: levETIRAcetam Oral Soln 500 MG/5 ML 250 MG PO (10:23)
--- NOTE | 2023-03-02 12:05 | MHC.CM.PN ---
EMR reviewed. Per MD rounds patient medically cleared for dc back to [facility] to resume LTC. BLS transportation booked for 2pm. Auth obtained from [facility]. Booking ID #[id number]. , RN, and facility aware. CM contacted HCP [place]ada/ lehr operator assistance - notified of DC and IMM verbally delivered. Copy left at bedside per request.
--- NOTE | 2023-03-02 13:03 | HO.WOUND ---
Wound Consult: Initial 67yr old male admitted to [facility] [place] on?02/26/23 16:15 - See progress notes and H&P for detailed history. Wound consult placed for Coccyx wound POA, Pt has been seen in the past by this junior technical writer. Previously documented Stage 3 Pressure Injury POA. Sacrum / Coccyx Etiology: ??Stage 3 Pressure Injury Present on Admission Measurements:see charting for detailed measurements Wound Bed: moist red pink tissue Drainage / Odor: serosang drainage noted on dressing at time of removal Edges: ?epibole and macerated Bonny wound: Scar tissue noted - pink tissue noted ? No Induration, Fluctuance or Warmth noted Pain: pt denies Goals of Treatment: ? Moist wound healing - Moisture management with Alginate and off load pressure Recommendations: 1. Turn and Reposition every 2 hours and as needed for patient comfort.? Use pillows or wedges to support off loading positions. 2. Off Load all bony prominences with use of pillows and heel boots if needed.? Apply Preventative foams where needed. ? 3. Monitor for incontinence and moisture control, use barrier creams when needed for prevention and treatment. 4. Provide adequate and supplemental nutrition. 5. Order or Continue low air loss mattress. 6. Sacrum / Coccyx - Cleanse and irrigate with NS, Pat dry.? Apply barrier to periwound, cover wound bed with Alginate (Durafiber AG).? Cover with Foam dressing.? Change Daily. Re-consult wound care Nurse for wound deterioration or wound changes.
== END 2023-03-02 13:37 | disposition skilled nursing facility (03) | DRG 698 ==
LOC: HO.ED 15:36 → HO.EDOVER 16:20 → HO.S3 19:11
PROVIDERS: Admitting Provider Internal Medicine; Emergency Provider Student in an Organized Health Care Education/Training Program; PCP Internal Medicine; Visit Provider Internal Medicine
DX: T83.518A Infection and inflammatory reaction due to other urinary catheter, initial encounter (principal); L89.154 Pressure ulcer of sacral region, stage 4; I69.351 Hemiplegia and hemiparesis following cerebral infarction affecting right dominant side; N13.6 Pyonephrosis; N31.9 Neuromuscular dysfunction of bladder, unspecified; R13.10 Dysphagia, unspecified; E87.6 Hypokalemia; I48.0 Paroxysmal atrial fibrillation; Z87.440 Personal history of urinary (tract) infections; Y73.8 Miscellaneous gastroenterology and urology devices associated with adverse incidents, not elsewhere classified; Z74.01 Bed confinement status; Z79.01 Long term (current) use of anticoagulants; Z79.899 Other long term (current) drug therapy
CPT/HCPCS: 36415; 74176; 80048; 80053; 81001; 81003; 83605; 83690; 83735; 85025; 85027; 85610; 87040; 87086; 87324; 87493; 87507; 99285; J0696; J2270

== ENCOUNTER → 2023-02-26 16:15 | Outpatient (BNV) | payer OTHER, SELFPAY | PROVIDERS: Admitting Provider Internal Medicine; Emergency Provider Student in an Organized Health Care Education/Training Program; PCP Internal Medicine; Visit Provider Urology | DX: N20.0 Calculus of kidney (principal); N39.0 Urinary tract infection, site not specified | CPT/HCPCS: 99222 ==

== ENCOUNTER → 2023-02-26 16:15 | Outpatient (BNV) | payer OTHER, SELFPAY | PROVIDERS: Admitting Provider Internal Medicine; Emergency Provider Student in an Organized Health Care Education/Training Program; PCP Internal Medicine; Visit Provider Internal Medicine | DX: N20.0 Calculus of kidney (principal) | CPT/HCPCS: 99223; 99231; 99232; 99239 ==

== ENCOUNTER 2023-03-28 15:51 | Emergency (ER) | payer OTHER, SELFPAY ==
[2023-03-28 16:08] VITALS: BP 146/90; BP 167/104; PULSE 113; PULSE 99; RESP 16; TEMP 36.4; O2SAT 97; O2SAT 98; BMI 21.4
--- NOTE | 2023-03-28 16:14 | PC.NURSE ---
pt comes from [facility] for ams. per [facility] RN, pt is at baseline but was trying to get out of bed and pulling at picc line. 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 pt has right sided weakness from previous stroke. seizure pads put in place for seizure history. pt is supposed to have keppra levels checked on wednesday at facility. pt resting quietly on stretcher in no apparent distress. rr even/unlabored. plan of care ongoing.
--- NOTE | 2023-03-28 16:32 | ED_ITS ---
HPI - Altered Mental Status General Chief Complaint: Altered Mental Status Stated Complaint: SNF. INCREASED AGITATION,TRYING TO CRWL OUT OF BED Time Seen by Provider: 03/28/23 16:30 Source: EMS and RN notes reviewed Mode of arrival: EMS Limitations: language barrier and altered mental status History of Present Illness HPI narrative: Patient history of hypertension AFib CVA with right-sided weakness, aphasic with indwelling suprapubic catheter and chronic colonization had E coli in the urine treated with Ceftin for 5 days urine culture on 03/10 showed E coli treated with Augmentin for 10 days comes back here as nursing noticed patient more agitated on arrival patient at his baseline relaxed no fever noted Related Data Home Medications Medication Instructions Recorded Confirmed acetaminophen 325 mg tablet 650 mg PO Q4H PRN fever/pain 02/16/21 02/26/23 bisacodyl 10 mg rectal suppository 10 mg NM DAILY PRN Constipation 02/16/21 02/26/23 calcium carbonate 600 mg-vitamin 1 tab PO BID 02/16/21 02/26/23 D3 5 mcg (200 unit) tablet magnesium hydroxide 400 mg/5 mL 30 ml PO DAILY PRN Constipation 02/16/21 02/26/23 oral suspension (Milk of Magnesia) levetiracetam 100 mg/mL oral 2.5 ml PO BID 02/26/21 02/26/23 solution atorvastatin 80 mg tablet 80 mg PO DAILY 01/26/22 02/26/23 rivaroxaban 20 mg tablet (Xarelto) 20 mg PO DAILY@1700 01/26/22 02/26/23 magnesium citrate 150 ml PO DAILY PRN Constipation 02/15/22 02/26/23 oxycodone 5 mg tablet 5 mg PO Q6H PRN Pain 02/15/22 02/26/23 sodium phosphates 19 gram-7 118 ml NM DAILY PRN Constipation 02/15/22 02/26/23 gram/118 mL enema (Fleet Enema) acetaminophen 325 mg tablet 650 mg PO BEDTIME 10/03/22 02/26/23 (Tylenol) acetic acid 0.25 % irrigation 50 ml irrigation TUTHSA@2100 10/03/22 02/26/23 solution ferrous sulfate 325 mg (65 mg 325 mg PO DAILY 12/22/22 02/26/23 iron) tablet potassium chloride 20 mEq oral 20 meq PO DAILY 12/22/22 02/26/23 packet Previous Rx's Medication Instructions Recorded losartan 100 mg tablet 100 mg PO DAILY 90 days #90 tabs 02/07/20 wet wipes #5 multiple units 03/12/20 tamsulosin 0.4 mg capsule 0.4 mg PO BEDTIME 90 days #90 caps 03/22/20 gabapentin 300 mg capsule 300 mg PO BEDTIME 30 days #30 caps 03/27/20 miscellaneous medical supply #1 ea 03/27/20 ascorbic acid (vitamin C) 1,000 mg 1,000 mg PO DAILY 90 days #90 tabs 01/27/22 tablet methenamine hippurate 1 gram tablet 1 g PO daily 90 days #90 tabs 01/27/22 psyllium husk (aspartame) 3.4 gram 3.4 g PO BEDTIME #30 ea 10/06/22 oral powder packet (Metamucil Fiber Singles) cefuroxime axetil 500 mg tablet 500 mg PO BID #10 tabs 03/02/23 Allergies Allergy/AdvReac Type Severity Reaction Status Date / Time No Known Allergies Allergy Verified 12/22/22 01:21 [No Known Allergies*] Review of Systems 2 Review of Systems: Yes Unobtainable due to mental status PMFSH Past Medical History Medical History Seizure disorder Chronic constipation Decubitus ulcer of sacral area Osteomyelitis Septic shock C. 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 Mother No problems noted. Social History Social History Household Members: None Household Members Other:: resides at [facility] [place] ([phone]) Housing: Half-Way Are you a primary long term care social worker to a significant other at home: No Do you presently have visiting nurse or other home services: No Unable to assess alcohol history related to: Unable to respond Alcohol intake: never Comment: patient sleeping Patient Tobacco Use Status: Tobacco use Unknown Second Hand Smoke Exposure: No Advance Directives: Yes Advance Directives on File: Yes Advance Directives Date on File: 07/25/21 service: No Current occupational status: disabled Physical Exam ED Vital Signs: Vital Signs - 24 hr 03/28/23 16:08 03/28/23 17:51 03/28/23 19:36 Temperature 97.6 F 98.5 F Pulse Rate 113 H 86 83 Respiratory Rate 16 16 18 Blood Pressure 167/104 H 159/98 H 153/88 H Pulse Oximetry 98 97 97 Oxygen Delivery Method Room Air Room Air Room Air BMI result Body Mass Index 21.4 Appearance: Alert. Oriented X3. No acute distress. Eyes: PERRL aphasic ENT: Pharynx normal. Oral Mucosa moist Neck: Normal inspection. Neck supple. CVS: Normal heart rate and rhythm. Pulses normal. Respiratory: No respiratory distress. Equal air entry bilateral, no wheezing/rales/rhonchi Abdomen: Soft and nontender. Bowel sounds are present, no mass palpable, no CVA tenderness, suprapubic catheter+ Skin: Skin warm and dry. Normal skin color. Normal skin turgor. Extremities: No lower extremity edema. No calf tenderness Neuro: Alert and awake relax dense right-sided hemiplegia Medications Administered Discontinued Medications Generic Name Dose Route Start Last Admin Trade Name Freq PRN Reason Stop Dose Admin Potassium Bicarbonate 50 meq 03/28/23 19:35 03/28/23 19:41 Potassium Bicarbonate/Cit Ac 25 Meq Tablet.Eff PO 03/28/23 19:36 50 meq ONCE ONE Administration Medical Decision Making Medical Decision Making MDM Narrative: Noticed did not have any encephalopathy findings in the ER urine has nitrite negative no bacteria already received antibiotics recently. Chemistry showed potassium of 3 patient was given p.o. potassium will send the patient back to retirement advised to increase her potassium intake in the food orange juices/banana Differential Diagnosis Differential Diagnoses: The differential diagnosis associated with the presentation includes UTI/metabolic encephalopathy Lab Data [facility] Lab Attestation statement: I reviewed the patient's lab results. 03/28/23 17:58 03/28/23 17:58 Labs: Lab Results 03/28/23 Range/Units 17:58 WBC 7.2 (4.8-10.8) X10*3/uL RBC 3.94 L (4.60-5.80) X10*6/uL Hgb 13.0 L (14.0-18.0) g/dl Hct 37.2 L (42.0-52.0) % MCV 94.4 (80.0-98.0) fL MCH 33.0 (27.0-33.0) pg MCHC 34.9 (31.0-36.0) g/dl RDW 13.3 (11.0-16.0) % Plt Count 136 L (160-400) X10*3/uL MPV 9.1 L (9.4-12.4) fL Immature Gran % (Auto) 0.8 H (0.0-0.4) % Neut % (Auto) 79.6 H (45-73) % Lymph % (Auto) 10.8 L (20-40) % [place] % (Auto) 7.9 (2-11) % Eos % (Auto) 0.6 (0-4) % Baso % (Auto) 0.3 (0-2) % Lymph # (Auto) 0.8 L (1.2-4.9) X10*3/uL [place] # (Auto) 0.6 (0.1-1.2) X10*3/uL Eos # (Auto) 0.0 (0.0-0.4) X10*3/uL Baso # (Auto) 0.0 (0.0-0.2) X10*3/uL Abs Immat Gran (auto) 0.06 H (0.00-0.03) X10*3/uL Absolute Neuts (auto) 5.7 (2.0-8.3) x10*3/uL Absolute Nucleated RBC 0.000 (0.0-0.012) X10*3/uL Nucleated RBC % (auto) 0.0 (0.0-0.2) /100WBC Sodium 142 (135-145) mmol/L Potassium 3.0 L (3.3-5.1) mmol/L Chloride 102 (96-108) mmol/L Carbon Dioxide 31 H (22-29) mmol/L Anion Gap 12 (12-20) BUN 14 (9-16) mg/dL Creatinine 0.87 (0.5-1.4) mg/dL Estim Creat Clear Calc 75.4 Estimated GFR > 60 Random Glucose 135 H (60-115) mg/dL Calcium 9.0 D (8.4-10.2) mg/dL Total Bilirubin 0.9 (0.0-1.0) mg/dL AST 24 (5-37) U/L ALT 22 (0-40) U/L Alkaline Phosphatase 92 (39-117) U/L Total Protein 6.7 (6.5-8.0) g/dL Albumin 3.3 L (3.5-5.0) g/dL Urine Color Yellow Urine Appearance Cloudy Urine pH 6.5 (5.0-9.0) Ur Specific [place] 1.015 (1.005-1.025) Urine Protein 300 (3+) H (Neg-Trace) mg/dL Urine Glucose (UA) Negative (Negative) mg/dL Urine Ketones Negative (Negative) mg/dL Urine Blood Large (3+) H (Negative) Urine Nitrite Negative (Negative) Ur Leukocyte Esterase Moderate (2+) H (Negative) Urine RBC >20 H (0-2) /HPF Urine WBC >50 H (0-5) /HPF Ur Squamous Epith Cells 3-5 (0-2) /HPF Urine Bacteria None Seen (None Seen) Hyaline Casts 3-5 (0-2) /LPF Independent Interpretation I performed an independent interpretation of an: EKG Interpretation: Normal sinus rhythm heart rate 86 beats per minute normal interval normal axis no acute ST T wave changes no acute ischemia Discharge Plan Discharge Clinical Impression: Altered mental status Patient Disposition: Xfer SNF Transfer Details: stable labs except for potassium of 3.0, give patient banana/orange juice daily Instructions: Altered Mental Status (ED) Additional Instructions: Continue medications as prescribed by PCP Have patient extra oranges/bananas daily for potassium supplementation Prescriptions: No Action (DME) wet wipes See Rx Instructions .ROUTE .MEDSUPPLY Qty: 5 3RF Rx Instructions: As directed levetiracetam 100 mg/mL solution 2.5 ml PO BID acetaminophen 325 mg Tablet 650 mg PO Q4H PRN (Reason: fever/pain) calcium carbonate-vitamin D3 600 mg-5 mcg (200 unit) Tablet 1 tab PO BID magnesium hydroxide [Milk of Magnesia] 400 mg/5 mL Suspension 30 ml PO DAILY PRN (Reason: Constipation) bisacodyl 10 mg Suppository 10 mg NM DAILY PRN (Reason: Constipation) Fleet Enema 19-7 gram/118 mL Enema 118 ml NM DAILY PRN (Reason: Constipation) magnesium citrate Solution 150 ml PO DAILY PRN (Reason: Constipation) oxycodone 5 mg Tablet 5 mg PO Q6H PRN (Reason: Pain) potassium chloride 20 mEq Packet 20 meq PO DAILY ferrous sulfate 325 mg (65 mg iron) Tablet 325 mg PO DAILY acetaminophen [Tylenol] 325 mg Tablet 650 mg PO BEDTIME acetic acid 0.25 % Solution 50 ml IRRIGATION TUTHSA@2100 Rx Instructions: for urinary catheter flush Metamucil Fiber Singles 3.4 gram Powder In Packet 3.4 g PO BEDTIME Qty: 30 0RF cefuroxime axetil 500 mg tablet 500 mg PO BID Qty: 10 0RF losartan 100 mg tablet 100 mg PO DAILY 90 Days Qty: 90 4RF Hold Instructions: Monitor BP at facility and restart if needed. gabapentin 300 mg capsule 300 mg PO BEDTIME 30 Days Qty: 30 0RF (DME) miscellaneous medical supply Misc See Rx Instructions .ROUTE .MEDSUPPLY Qty: 1 0RF Rx Instructions: RUE resting hand Splint/Sling As directed, Dx: G81.91, I67.89, duration 999 days/life time tamsulosin 0.4 mg capsule 0.4 mg PO BEDTIME 90 Days Qty: 90 1RF Xarelto 20 mg tablet 20 mg PO DAILY@1700 Hold Instructions: Resume on 12/25/22. atorvastatin 80 mg tablet 80 mg PO DAILY ascorbic acid (vitamin C) 1,000 mg tablet 1,000 mg PO DAILY 90 Days Qty: 90 1RF methenamine hippurate 1 gram tablet 1 g PO daily 90 Days Qty: 90 1RF Interventions: ED Discharge Assessment Last Done: 03/28/23 21:50
--- NOTE | 2023-03-28 17:15 | ECG_ITS ---
Test Reason : ALTERED Blood Pressure : / mmHG Vent. Rate : 086 BPM Atrial Rate : 086 BPM P-R Int : 172 ms QRS Dur : 086 ms QT Int : 360 ms P-R-T Axes : 023 037 010 degrees QTc Int : 430 ms Normal sinus rhythm Normal ECG When compared with ECG of 22-DEC-2022 05:27, Vent. rate has decreased BY 64 BPM T wave inversion less evident in Inferior leads Nonspecific T wave abnormality now evident in Anterior leads Referred By: Akash Kim Electronically Signed By:VINI ROBERT
[2023-03-28 17:51] VITALS: BP 159/98; PULSE 86; RESP 16; TEMP 36.9; O2SAT 97
[2023-03-28 18:02] LABS: MANUAL DIFF FLAG NO
[2023-03-28 18:04] LABS: Appearance Urine Cloudy; Color Urine Yellow; Glucose Urine UA Negative (Negative); Leukocyte Esterase Urine Moderate (2+) (Negative); Nitrite Urine Negative (Negative); PH 6.5 (5.0-9.0); Specific Gravity - Urine 1.015 (1.005-1.025); UMIC TRIGGER UACC YES; Urine Blood Large (3+) (Negative); Urine Ketones Negative (Negative); Urine Protein 300 (3+) mg/dL (Neg-Trace)
[2023-03-28 18:09] LABS: Bacteria Urine None Seen (None Seen); RBC Urine >20 /HPF (0-2); UACC Culture Trigger YES; WBC Urine >50 /HPF (0-5)
--- NOTE | 2023-03-28 18:12 | MHC.EDTECH ---
PATIENT CAME IN INCONTINENT OF LOOSE STOOL,CARE GIVEN ,PT HAS A QUARTER SIZE OPEN AREA ON HIS COCCYX ,RN CONSTANZA IS AWARE ,PT EKG TAKEN AND WAS READ BY PROVIDER ,BLOOD DRAWN AND URINE SAMPLE COLLECTED AND SENT TO LAB ,PT FAMILY AT BEDSIDE .
[2023-03-28 18:13] LABS: Basophils Percent Auto 0.3 % (0-2); Eosinophils Percent Auto 0.6 % (0-4); Hematocrit 37.2 % (42.0-52.0); Imm Gran Abs Auto 0.06 X10*3/uL (0.00-0.03); Imm Gran Pct Auto 0.8 % (0.0-0.4); Lymphocytes Absolute Auto 0.8 X10*3/uL (1.2-4.9); Lymphocytes Percent Auto 10.8 % (20-40); Mean Corpuscular HGB Conc 34.9 g/dl (31.0-36.0); Mean Corpuscular Volume 94.4 fL (80.0-98.0); Mean Platelet Volume 9.1 fL (9.4-12.4); Monocytes Absolute Auto 0.6 X10*3/uL (0.1-1.2); Monocytes Percent Auto 7.9 % (2-11); Neutrophils Absolute Auto 5.7 x10*3/uL (2.0-8.3); Neutrophils Percent Auto 79.6 % (45-73); Platelet Count 136 X10*3/uL (160-400); Red Blood Count 3.94 X10*6/uL (4.60-5.80); Red Cell Distribution Width 13.3 % (11.0-16.0); White Blood Count 7.2 X10*3/uL (4.8-10.8)
[2023-03-28 18:16] LABS: Alanine Aminotransferase 22 U/L (0-40); Albumin Level 3.3 g/dL (3.5-5.0); Alkaline Phosphatase 92 U/L (39-117); Anion Gap 12 (12-20); Aspartate Amino Transferase 24 U/L (5-37); Bilirubin Total 0.9 mg/dL (0.0-1.0); Blood Urea Nitrogen 14 mg/dL (9-16); Carbon Dioxide 31 mmol/L (22-29); Chloride 102 mmol/L (96-108); Creatinine Clr Calc Pharmacy 75.4; Estimated Glomerular Filt Rate > 60; Glucose Random 135 mg/dL (60-115); Sodium 142 mmol/L (135-145); Total Protein 6.7 g/dL (6.5-8.0)
--- NOTE | 2023-03-28 18:26 | PC.NURSE ---
pt has wound to coccyx, about size of silver dollar. old dressing removed. picture taken and sent to Dr. Kim.
[2023-03-28 19:36] VITALS: BP 153/88; PULSE 83; RESP 18; O2SAT 97
[2023-03-28] MEDS: Potassium Bicarbonate/Cit AC 25 MEQ TABLET.EFF 50 MEQ PO (19:41)
--- NOTE | 2023-03-28 21:20 | PC.NURSE ---
Report given to Marily at [facility]. Pt will be transported back via ambulance.
== END 2023-03-28 22:13 | disposition skilled nursing facility (03) ==
PROVIDERS: Emergency Provider Internal Medicine
DX: R41.82 Altered mental status, unspecified (principal); I48.91 Unspecified atrial fibrillation; Z79.899 Other long term (current) drug therapy; Z86.73 Personal history of transient ischemic attack (TIA), and cerebral infarction without residual deficits
CPT/HCPCS: 36415; 80053; 81001; 85025; 87086; 87088; 87186; 93005; 99284

== ENCOUNTER → 2023-03-28 17:15 | Outpatient (BNV) | payer OTHER, SELFPAY | PROVIDERS: Emergency Provider Internal Medicine; Visit Provider Internal Medicine | DX: R41.82 Altered mental status, unspecified (principal) | CPT/HCPCS: 93010 ==

== ENCOUNTER 2023-10-04 17:44 | Inpatient (IN) | payer OTHER, SELFPAY ==
--- NOTE | ~2023-10-04 | CT_ITS ---
EXAMINATION: CT ABDOMEN AND PELVIS WITHOUT CONTRAST CLINICAL INFORMATION: Suprapubic catheter not working, pain. COMPARISON: CT abdomen/pelvis 02/26/2023. TECHNIQUE: Multidetector volumetric imaging was performed from the superior aspect of the liver through the pubic symphysis. Sagittal and coronal reformatted images were obtained on the technologist's workstation. This CT examination was performed using dose optimization techniques as appropriate, variously including the following: *Automated exposure control *Adjustment of mA and/or kV according to patient size (this includes techniques or standardized protocols for targeted exams where dose is matched to indication/reason for exam; i.e. extremities or head) *Use of iterative reconstruction technique DLP: 864 mGy-cm FINDINGS: The lack of intravenous contrast limits evaluation of the solid visceral organs including the liver, spleen, pancreas, and kidneys. In addition, the study is limited due to motion. LUNG BASES: No focal consolidation or pleural effusion. Partially seen multivessel coronary artery calcifications and trace pericardial fluid. LIVER, GALLBLADDER, AND BILIARY TREE: Limited examination. Grossly normal appearance of the liver and gallbladder. No cholelithiasis. No biliary ductal dilatation. PANCREAS: Limited examination. No significant peripancreatic inflammatory changes. SPLEEN: Normal size. ADRENAL GLANDS: No adrenal mass. KIDNEYS AND URETERS: Multiple new calculi in the right ureter measuring 0.9 cm and 0.6 cm at the level of L3-L4, 0.6 cm at the level of L5, and 1.1 cm at the level of S1 with Hounsfield units attenuation measuring up to 640. Otherwise, grossly unchanged additional bilateral renal calculi, including a large staghorn calculus in the right renal pelvis extending to the ureterovesical junction and proximal ureter measuring 5.6 cm in craniocaudal length with attenuation of 700 Hounsfield units. Stable right greater than left hydroureteronephrosis. BLADDER: Decompressed with a suprapubic Walker and balloon in place. There is intraluminal air as well as high density intraluminal material. There is trace perivesical fat stranding. GASTROINTESTINAL TRACT: Severe colonic distention with significant amount of stool burden. The stomach and the small bowel are nondilated. No significant pericolonic inflammatory changes. ABDOMINAL WALL: Small fat-containing left inguinal hernia. LYMPH NODES: No lymphadenopathy. VASCULAR: Severe atherosclerotic disease. Normal caliber of the abdominal aorta. PELVIC VISCERA: Unremarkable. OSSEOUS STRUCTURES: Again noted sacral decubitus ulcer with redemonstration of associated erosive changes and destruction of the adjacent sacrum and coccyx, similar degree of surrounding amorphous soft tissue thickening and stranding. Stable heterogeneity of the bone marrow in the pelvis and sacral alae. Severe multifocal degenerative osteoarthritis. CT/CT abdomen pelvis wo IV con IMPRESSION: Limited examination secondary to motion and lack of IV contrast. 1. Multiple new calculi in the right ureter measuring up to 1.1 cm. Grossly unchanged chronic right greater than left hydroureteronephrosis. Stable additional nonobstructive renal calculi including a large staghorn calculus in the right renal pelvis extending to the ureterovesical junction and proximal ureter. 2. High density intraluminal material within the urinary bladder, nonspecific could represent blood products. Intraluminal air is indeterminate in view of the presence of a Walker catheter. Recommend clinical correlation. 3. Marked gaseous distention of the colon with large amount of air and stool, transitioning in the region of the mid to lower rectum. Findings could be associated with colonic pseudoobstruction or distal bowel/rectal obstruction with severe constipation. 4. Redemonstration of decubitus ulcer with findings most suggestive of osteomyelitis in the sacrum and coccyx.
[2023-10-04 18:06] VITALS: BP 108/57; BP 150/84; PULSE 68; PULSE 70; RESP 20; TEMP 36.7; O2SAT 100; O2SAT 96; BMI 23.5
[2023-10-04 18:25] VITALS: BP 150/84; PULSE 68; RESP 20; TEMP 36.7; O2SAT 96
--- NOTE | 2023-10-04 18:36 | ED_ITS ---
HPI - General Adult General Chief complaint: Abdominal Pain Stated complaint: UTI Time Seen by Provider: 10/04/23 17:52 Source: family, EMS and old records reviewed Mode of arrival: EMS Limitations: altered mental status History of Present Illness ED Provider: ELIEZER MALIK narrative: 68 yo male with PMH of vascular dementia - bedbound, full care, minimally nonverbal, CVA R sided hemiparesis, dysphagia, neurogenic bladder s/p suprapubic cath, sacral decubitus ulcer, HTN, HLD, PAF on xarelto, recurrent UTIs dx with proteus and providencia S to ceftriaxone on 09/29 at [facility] looks like they dosed him x 1 on 09/29 with ancef he was sent by SNF for change of catheter and asking for PICC line. The patient cannot offer many complaints. His catheter is very old appearing with sig sediment noted MD complaint: UTI Onset (ago): day(s) (09/29) Location: abdomen Radiation: non-radiation Severity: moderate Relieving factors: none Exacerbating factors: none Associated symptoms: denies other symptoms Treatments prior to arrival: other (note states PIV with ancef on 09/29) Related Data Home Medications ?Medication ?Instructions ?Recorded ?Confirmed acetaminophen 325 mg tablet 650 mg PO Q4H PRN fever/pain 02/16/21 02/26/23 bisacodyl 10 mg rectal suppository 10 mg FL DAILY PRN Constipation 02/16/21 02/26/23 calcium carbonate 600 mg-vitamin 1 tab PO BID 02/16/21 02/26/23 D3 5 mcg (200 unit) tablet magnesium hydroxide 400 mg/5 mL 30 ml PO DAILY PRN Constipation 02/16/21 02/26/23 oral suspension (Milk of Magnesia) levetiracetam 100 mg/mL oral 2.5 ml PO BID 02/26/21 02/26/23 solution atorvastatin 80 mg tablet 80 mg PO DAILY 01/26/22 02/26/23 rivaroxaban 20 mg tablet (Xarelto) 20 mg PO DAILY@1700 01/26/22 02/26/23 magnesium citrate 150 ml PO DAILY PRN Constipation 02/15/22 02/26/23 oxycodone 5 mg tablet 5 mg PO Q6H PRN Pain 02/15/22 02/26/23 sodium phosphates 19 gram-7 118 ml FL DAILY PRN Constipation 02/15/22 02/26/23 gram/118 mL enema (Fleet Enema) acetaminophen 325 mg tablet 650 mg PO BEDTIME 10/03/22 02/26/23 (Tylenol) acetic acid 0.25 % irrigation 50 ml irrigation TUTHSA@2100 10/03/22 02/26/23 solution ferrous sulfate 325 mg (65 mg 325 mg PO DAILY 12/22/22 02/26/23 iron) tablet potassium chloride 20 mEq oral 20 meq PO DAILY 12/22/22 02/26/23 packet Previous Rx's ?Medication ?Instructions ?Recorded losartan 100 mg tablet 100 mg PO DAILY 90 days #90 tabs 02/07/20 wet wipes #5 multiple units 03/12/20 tamsulosin 0.4 mg capsule 0.4 mg PO BEDTIME 90 days #90 caps 03/22/20 gabapentin 300 mg capsule 300 mg PO BEDTIME 30 days #30 caps 03/27/20 miscellaneous medical supply #1 ea 03/27/20 ascorbic acid (vitamin C) 1,000 mg 1,000 mg PO DAILY 90 days #90 tabs 01/27/22 tablet methenamine hippurate 1 gram tablet 1 g PO daily 90 days #90 tabs 01/27/22 psyllium husk (aspartame) 3.4 gram 3.4 g PO BEDTIME #30 ea 10/06/22 oral powder packet (Metamucil Fiber Singles) cefuroxime axetil 500 mg tablet 500 mg PO BID #10 tabs 03/02/23 Allergies Allergy/AdvReac Type Severity Reaction Status Date / Time No Known Allergies Allergy Verified 10/04/23 18:16 [No Known Allergies*] Review of Systems 2 Review of Systems: ROS unable to be obtained due to altered mental status [facility] Past Medical History Source: old records reviewed Medical History Seizure disorder Chronic constipation Decubitus ulcer of sacral area Osteomyelitis Septic shock C. 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 Mother No problems noted. Social History Social History Household Members: None Household Members Other:: resides at [place], [place] ([phone]) Housing: Retirement Are you a primary veterinarian laboratory animal care to a significant other at home: No Do you presently have visiting nurse or other home services: No Unable to assess alcohol history related to: Unable to respond Alcohol intake: former Comment: patient sleeping Patient Tobacco Use Status: Tobacco use Unknown Smoked in Last 30 Days: No Second Hand Smoke Exposure: No Use of substances other than those prescribed or required for medical reasons: No Advance Directives: Yes Advance Directives on File: Yes Advance Directives Date on File: 07/25/21 Do you have a plan to hurt others: No Plan service: No Current occupational status: disabled Physical Exam ED Vital Signs: Vital Signs - 24 hr 10/04/23 18:06 10/04/23 18:25 10/04/23 19:30 Temperature 98.1 F 98.1 F 97.6 F Pulse Rate 68 68 70 Respiratory Rate 20 20 12 Blood Pressure 150/84 H 150/84 H 141/80 H Pulse Oximetry 96 96 97 Oxygen Delivery Method Room Air Room Air Room Air BMI result Body Mass Index 23.5 Appearance: weak, not speaking. No acute distress. Eyes: Pupils equal, round and reactive to light. ENT: Pharynx normal. Neck: Normal inspection. Neck supple. CVS: Normal heart rate and rhythm. Pulses normal. Respiratory: No respiratory distress. Breath sounds normal. Abdomen: Soft but distended. suprapubic catheter site has mild drainage but no purulence it is clear, sig cloudy sediment in catheter no urine seen in tubing Skin: Skin warm and dry. Normal skin color. Normal skin turgor. Extremities: No lower extremity edema. No calf ttp Neuro: cannot speak in full sentences, contracted Course Course Course Narrative: initial catheter very old appearing removed full amount of balloon fluid when removing and it felt almost stuck in the tract no bleeding noted placed another catheter first pass but CT scan ordered to confirm Medications Administered Generic Name Dose Route Start Last Admin Trade Name Freq PRN Reason Stop Dose Admin Potassium Chloride 10 meq in 100 mls @ 100 mls/hr 10/04/23 20:00 10/04/23 20:21 Potassium Chloride/H20 IV 10/04/23 23:59 100 mls/hr Q1H KEE Administration Sodium Chloride 1,000 mls @ 100 mls/hr 10/04/23 20:00 10/04/23 20:21 Ns IVCONT 100 mls/hr .Q10H KEE Administration Discontinued Medications Generic Name Dose Route Start Last Admin Trade Name P[place]o PRN Reason Stop Dose Admin Ceftriaxone Sodium 1 gm/ 50 mls @ 100 mls/hr 10/04/23 18:16 10/04/23 19:48 Sodium Chloride IV 10/04/23 18:45 100 mls/hr ONCE ONE Administration Procedures Catheter Insertion (Urinary) Date of insertion: 10/04/23 Time of insertion: 20:25 Reason for placing: Yes Reason for placing indwelling catheter: Other (chronic suprapubic) Patient has the following: history of catheter associated urinary tract infection Bladder scan/ultrasound used before catheterization: No Antiseptic solution prep: Povidone-Iodine Topical anesthesia used: No Catheter type/location: Suprapubic Size (Hebrew): 16 Catheter balloon size (mL): 10 Catheter balloon amount: 10 Results: successfully catheterized-immediate flow Medical Decision Making Medical Decision Making [facility] Narrative: 68 yo male with PMH of vascular dementia - bedbound, full care, minimally nonverbal, CVA R sided hemiparesis, dysphagia, neurogenic bladder s/p suprapubic cath, sacral decubitus ulcer, HTN, HLD, PAF on xarelto, recurrent UTIs here with recurrent UTI and his catheter is very poor looking on exam will need to change obtain labs and based off outpatient culture start on ceftriaxone. Pending labs and ability to take oral medications may need admisison for IV antibiotics Differential Diagnosis Differential Diagnoses: The differential diagnosis associated with the presentation includes CAUTI, dehydration, VI Admission/Observation Consideration of admission/observation: Escalation of care including admission/observation considered signed out to Dr. Stone pending UA and CT scan read Lab Data [facility] Lab Attestation statement: I reviewed the patient's lab results. 10/04/23 19:20 10/04/23 19:20 Labs: Lab Results 10/04/23 Range/Units 19:20 WBC 6.6 (4.8-10.8) X10*3/uL RBC 3.16 L (4.60-5.80) X10*6/uL Hgb 10.7 L (14.0-18.0) g/dl Hct 31.7 L (42.0-52.0) % MCV 100.3 H (80.0-98.0) fL MCH 33.9 H (27.0-33.0) pg MCHC 33.8 (31.0-36.0) g/dl RDW 15.3 (11.0-16.0) % Plt Count 187 D (160-400) X10*3/uL MPV 9.1 L (9.4-12.4) fL Immature Gran % (Auto) 0.3 (0.0-0.4) % Neut % (Auto) 68.8 (45-73) % Lymph % (Auto) 20.9 (20-40) % [place] % (Auto) 7.7 (2-11) % Eos % (Auto) 2.0 (0-4) % Baso % (Auto) 0.3 (0-2) % Lymph # (Auto) 1.4 (1.2-4.9) X10*3/uL [place] # (Auto) 0.5 (0.1-1.2) X10*3/uL Eos # (Auto) 0.1 (0.0-0.4) X10*3/uL Baso # (Auto) 0.0 (0.0-0.2) X10*3/uL Abs Immat Gran (auto) 0.02 (0.00-0.03) X10*3/uL Absolute Neuts (auto) 4.6 (2.0-8.3) x10*3/uL Absolute Nucleated RBC 0.000 (0.0-0.012) X10*3/uL Nucleated RBC % (auto) 0.0 (0.0-0.2) /100WBC Sodium 148 H (135-145) mmol/L Potassium 2.8 L* (3.3-5.1) mmol/L Chloride 120 H (96-108) mmol/L Carbon Dioxide 21 L (22-29) mmol/L Anion Gap 10 L (12-20) BUN 40 H (9-16) mg/dL Creatinine 0.93 (0.5-1.4) mg/dL Estim Creat Clear Calc 72.5 Estimated GFR > 60 Random Glucose 111 (60-115) mg/dL Lactic Acid 1.3 (0.5-2.0) mmol/L Calcium 8.2 L D (8.4-10.2) mg/dL Magnesium 2.3 (1.6-2.6) mg/dL Total Bilirubin 0.3 (0.0-1.0) mg/dL Direct Bilirubin 0.1 (0.0-0.5) mg/dL AST 14 (5-37) U/L ALT 21 (0-40) U/L Alkaline Phosphatase 93 (39-117) U/L Total Protein 6.4 L (6.5-8.0) g/dL Albumin 2.8 L (3.5-5.0) g/dL Lipase 56 (8-78) U/L Independent Interpretation I performed an independent interpretation of an: CT Scan Independent Historian Clinical information obtained from an independent historian. History obtained from or confirmed by: EMS and Other (family) External Record Review External record reviewed: Inpatient record and Prior outpatient labs Discharge Plan Discharge Clinical Impression: Acute hypokalemia, Acute UTI, Acute dehydration Patient Disposition: Admitted As Inpatient Print Language: Macedonian
[2023-10-04 19:23] LABS: MANUAL DIFF FLAG NO
[2023-10-04 19:24] LABS: Basophils Percent Auto 0.3 % (0-2); Eosinophils Absolute Auto 0.1 X10*3/uL (0.0-0.4); Hematocrit 31.7 % (42.0-52.0); Hemoglobin 10.7 g/dl (14.0-18.0); Imm Gran Abs Auto 0.02 X10*3/uL (0.00-0.03); Imm Gran Pct Auto 0.3 % (0.0-0.4); Lymphocytes Absolute Auto 1.4 X10*3/uL (1.2-4.9); Lymphocytes Percent Auto 20.9 % (20-40); Mean Corpuscular HGB Conc 33.8 g/dl (31.0-36.0); Mean Corpuscular Hemoglobin 33.9 pg (27.0-33.0); Mean Corpuscular Volume 100.3 fL (80.0-98.0); Mean Platelet Volume 9.1 fL (9.4-12.4); Monocytes Absolute Auto 0.5 X10*3/uL (0.1-1.2); Monocytes Percent Auto 7.7 % (2-11); Neutrophils Absolute Auto 4.6 x10*3/uL (2.0-8.3); Neutrophils Percent Auto 68.8 % (45-73); Platelet Count 187 X10*3/uL (160-400); Red Blood Count 3.16 X10*6/uL (4.60-5.80); Red Cell Distribution Width 15.3 % (11.0-16.0); White Blood Count 6.6 X10*3/uL (4.8-10.8)
[2023-10-04 19:30] VITALS: BP 141/80; PULSE 70; RESP 12; TEMP 36.4; O2SAT 97
[2023-10-04 19:40] LABS: Lactic Acid 1.3 mmol/L (0.5-2.0)
[2023-10-04] MEDS: cefTRIAXone sodium 1 GM in 0.9 % Sodium Chloride 50 ML IV (19:48)
[2023-10-04 20:01] LABS: Alanine Aminotransferase 21 U/L (0-40); Albumin Level 2.8 g/dL (3.5-5.0); Alkaline Phosphatase 93 U/L (39-117); Anion Gap 10 (12-20); Aspartate Amino Transferase 14 U/L (5-37); Bilirubin Direct 0.1 mg/dL (0.0-0.5); Bilirubin Total 0.3 mg/dL (0.0-1.0); Blood Urea Nitrogen 40 mg/dL (9-16); Calcium 8.2 mg/dL (8.4-10.2); Carbon Dioxide 21 mmol/L (22-29); Chloride 120 mmol/L (96-108); Creatinine Clr Calc Pharmacy 72.5; Estimated Glomerular Filt Rate > 60; Glucose Random 111 mg/dL (60-115); Lipase 56 U/L (8-78); Magnesium 2.3 mg/dL (1.6-2.6); Potassium 2.8 mmol/L (3.3-5.1); Sodium 148 mmol/L (135-145); Total Protein 6.4 g/dL (6.5-8.0)
[2023-10-04] MEDS: 0.9 % Sodium Chloride 1,000 ML 100 ML IVCONT (20:21)
[2023-10-04] MEDS: Potassium Chloride/H20 10 MEQ/100 ML PIGGYBACK 100 MEQ IV ×3 (20:21→23:31)
[2023-10-04 22:30] LABS: C Reactive Protein 0.39 mg/dL (< or = 0.50)
[2023-10-04 23:07] VITALS: BP 111/76; PULSE 66; RESP 12; TEMP 36.9; O2SAT 98
--- NOTE | 2023-10-05 00:31 | PM.IMHP ---
History of Present Illness Date of Service: 10/05/23 Chief Complaint: UTI This is a 68-year-old male with pertinent history of vascular dementia (bed-bound and minimally verbal), history of CVA with right-sided hemiparesis, dysphagia, neurogenic bladder with recurrent UTI and suprapubic catheter, stage IV sacral decubitus ulcer, hypertension, hyperlipidemia, paroxysmal atrial fibrillation on anticoagulation who was sent to the emergency department for evaluation of UTI and blocked suprapubic catheter. Patient was diagnosed with UTI at outside facility and was given Ancef. Patient was noted to have blocked suprapubic catheter with change in color and odor of urine. Unable to obtain history from the patient. History obtained from ER provider and chart review. Unable to obtain review of systems. In the emergency department, suprapubic catheter was changed and patient was initiated on empiric IV antibiotics. Imaging with osteomyelitis of the sacrum and coccyx. Review of Systems Review of Systems: Yes Unobtainable due to mental condition PMFSH Medical History Seizure disorder Chronic constipation Decubitus ulcer of sacral area Osteomyelitis Septic shock C. 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 Mother No problems noted. Surgical History No pertinent past surgical history Social History Household Members: None Household Members Other:: resides at [facility] MICHAEL Rivers ([phone]) Housing: Long Term Are you a primary manager home healthcare to a significant other at home: No Do you presently have visiting nurse or other home services: No Unable to assess alcohol history related to: Unable to respond Alcohol intake: former Comment: patient sleeping Patient Tobacco Use Status: Tobacco use Unknown Smoked in Last 30 Days: No Second Hand Smoke Exposure: No Use of substances other than those prescribed or required for medical reasons: No Advance Directives: Yes Advance Directives on File: Yes Advance Directives Date on File: 07/25/21 Do you have a plan to hurt others: No Plan service: No Current occupational status: disabled Meds Allergies Allergy/AdvReac Type Severity Reaction Status Date / Time No Known Allergies Allergy Verified 10/04/23 18:16 [No Known Allergies*] Active Medications: Current Medications Sodium Chloride (Ns) 1,000 mls @ 100 mls/hr IVCONT .Q10H KEE Last Admin: 10/04/23 20:21 Dose: 100 mls/hr Cefepime HCl 2 gm/ Sodium (Chloride) 50 mls @ 100 mls/hr IV Q8H KEE Vancomycin HCl 1,500 mg/ (Sodium Chloride) 500 mls @ 333.333 mls/hr IV ONCE ONE Stop: 10/05/23 01:58 Pharmacy Consult (Consult Rx Vancomycin Dosing) 1 each MISCELLANE DAILY PRN PRN Reason: Consult order Home Medications ?Medication ?Instructions ?Recorded ?Confirmed ?Last Taken ?Type acetaminophen 325 mg tablet 650 mg PO Q4H PRN fever/pain 02/16/21 02/26/23 Unknown History bisacodyl 10 mg rectal suppository 10 mg UT DAILY PRN Constipation 02/16/21 02/26/23 Unknown History calcium carbonate 600 mg-vitamin 1 tab PO BID 02/16/21 02/26/23 02/14/22 History D3 5 mcg (200 unit) tablet magnesium hydroxide 400 mg/5 mL 30 ml PO DAILY PRN Constipation 02/16/21 02/26/23 Unknown History oral suspension (Milk of Magnesia) levetiracetam 100 mg/mL oral 2.5 ml PO BID 02/26/21 02/26/23 02/14/22 History solution atorvastatin 80 mg tablet 80 mg PO DAILY 01/26/22 02/26/23 02/14/22 History rivaroxaban 20 mg tablet (Xarelto) 20 mg PO DAILY@1700 01/26/22 02/26/23 02/14/22 History magnesium citrate 150 ml PO DAILY PRN Constipation 02/15/22 02/26/23 Unknown History oxycodone 5 mg tablet 5 mg PO Q6H PRN Pain 02/15/22 02/26/23 Unknown History sodium phosphates 19 gram-7 118 ml UT DAILY PRN Constipation 02/15/22 02/26/23 Unknown History gram/118 mL enema (Fleet Enema) acetaminophen 325 mg tablet 650 mg PO BEDTIME 10/03/22 02/26/23 Unknown History (Tylenol) acetic acid 0.25 % irrigation 50 ml irrigation CAT@2100 10/03/22 02/26/23 Unknown History solution ferrous sulfate 325 mg (65 mg 325 mg PO DAILY 12/22/22 02/26/23 Unknown History iron) tablet potassium chloride 20 mEq oral 20 meq PO DAILY 12/22/22 02/26/23 Unknown History packet Physical Exam Vital Signs and Narrative: Vital Signs: Last Vital Signs Temp 98.4 F 10/04/23 23:07 Pulse 66 10/04/23 23:07 Resp 12 10/04/23 23:07 BP 111/76 10/04/23 23:07 Pulse Ox 98 10/04/23 23:07 O2 Del Method Room Air 10/04/23 23:07 BMI result Body Mass Index 23.5 Middle-aged male lying in bed in no distress Neck supple, no JVD Regular rate and rhythm, S1-S2 heard Regular breath sounds bilaterally, no wheezing or crackles appreciated Abdomen soft nontender, no guarding, no rigidity, unstageable sacral decubitus ulcer, suprapubic catheter in place Patient is awake, not answering questions, not following commands, Psych: Normal mood No pedal edema Results Labs 10/04/23 19:20 10/04/23 19:20 Labs: Laboratory Results - last 24 hr 10/04/23 19:20 MCV 100.3 H MCH 33.9 H MCHC 33.8 RDW 15.3 Plt Count 187 D MPV 9.1 L Immature Gran % (Auto) 0.3 Neut % (Auto) 68.8 Lymph % (Auto) 20.9 Mcmullen % (Auto) 7.7 Eos % (Auto) 2.0 Baso % (Auto) 0.3 Lymph # (Auto) 1.4 Mcmullen # (Auto) 0.5 Eos # (Auto) 0.1 Baso # (Auto) 0.0 Abs Immat Gran (auto) 0.02 Absolute Neuts (auto) 4.6 Absolute Nucleated RBC 0.000 Nucleated RBC % (auto) 0.0 Anion Gap 10 L Estim Creat Clear Calc 72.5 Estimated GFR > 60 Random Glucose 111 Lactic Acid 1.3 Calcium 8.2 L D Magnesium 2.3 Total Bilirubin 0.3 Direct Bilirubin 0.1 AST 14 ALT 21 Alkaline Phosphatase 93 C-Reactive Protein 0.39 Total Protein 6.4 L Albumin 2.8 L Lipase 56 Imaging Radiologist's Impressions: Impressions Abdomen/Pelvis CT 10/04/23 21:31 IMPRESSION: Limited examination secondary to motion and lack of IV contrast. 1. Multiple new calculi in the right ureter measuring up to 1.1 cm. Grossly unchanged chronic right greater than left hydroureteronephrosis. Stable additional nonobstructive renal calculi including a large staghorn calculus in the right renal pelvis extending to the ureterovesical junction and proximal ureter. 2. High density intraluminal material within the urinary bladder, nonspecific could represent blood products. Intraluminal air is indeterminate in view of the presence of a Walker catheter. Recommend clinical correlation. 3. Marked gaseous distention of the colon with large amount of air and stool, transitioning in the region of the mid to lower rectum. Findings could be associated with colonic pseudoobstruction or distal bowel/rectal obstruction with severe constipation. 4. Redemonstration of decubitus ulcer with findings most suggestive of osteomyelitis in the sacrum and coccyx. Assessment and Plan (1) Complicated UTI (urinary tract infection): Status: Acute (2) Osteomyelitis of sacrum: Status: Acute Plan This is a 68-year-old male with pertinent history of vascular dementia (bed-bound and minimally verbal), history of CVA with right-sided hemiparesis, dysphagia, neurogenic bladder with recurrent UTI and suprapubic catheter, stage IV sacral decubitus ulcer, hypertension, hyperlipidemia, paroxysmal atrial fibrillation on anticoagulation who was sent to the emergency department for evaluation of UTI and blocked suprapubic catheter. #. Acute complicated UTI in a patient with neurogenic bladder and suprapubic catheter: Suprapubic catheter changed in the ER. Initiating empiric IV antibiotics. No sepsis. Follow culture #. Acute osteomyelitis of the sacrum and coccyx: On broad-spectrum IV antibiotics. Consulted Infectious Disease #. Right-sided nephrolithiasis with hydroureteronephrosis: Consulted Urology #. Hypokalemia: Repleted #. Vascular dementia: Maintain sleep-wake cycle #. History of CVA/AFib: On Xarelto and statin #. Unstageable sacral decubitus ulcer: Consulted Wound Care Med rec pending DVT prophylaxis: Xarelto Full code Admit as inpatient and will require two night minimum hospital stay for IV antibiotics (as above), which is not possible in a lesser acute setting. Quality Stroke Does the patient have a stroke diagnosis?: No VTE Prior VTE?: No VTE Risk Level:: Medical - moderate - high VTE Device Contraindication: Treatment Not Indicated VTE Drug Contraindication: N/A - Med Ordered
--- OUTSIDE RECORDS SUMMARY | 2023-10-05 00:37 | XMS_ITS | Continuity of Care Document ---
Author Organization [facility] Renate brea Address [address] [place] [address] [address] [place] [address]- Care Team Providers Care Ict Business Analyst Name Role Phone Marcell MARTINEZ, Blake Zendejas Primary Care Physician Encounter [facility] Date(s): 04/29/22 - 05/06/22 [facility] [address] [place] [address]- Attending Physician: Al Clifford MD Allergies, Adverse Reactions, Alerts No Known Allergies Medications amLODIPine 5 mg oral tablet 5 mg, 1, tablet, By Mouth, Daily, Maintenance, 07/03/20 14:36:00 EDT Start Date: 07/03/20 Status: Ordered aspirin 81 mg oral delayed release tablet 81 mg, 1, tablet, By Mouth, Daily, Maintenance, 07/03/20 14:43:00 EDT Start Date: 07/03/20 Status: Ordered atorvastatin 80 mg oral tablet 1 tablet = 80 mg, By Mouth, Daily at bedtime, Maintenance, 07/03/20 14:40:00 EDT Start Date: 07/03/20 Status: Ordered Bisac-Evac 10 mg rectal suppository 1 supp = 10 mg, Rectally, Daily, PRN for constipation, Maintenance, 08/22/20 12:28:00 EDT, Suppository, Partial fill upon patient request if the prescription is for a schedule II opioid drug. Start Date: 08/22/20 Status: Ordered calcium and vitamin D combination 600 mg-200 u oral tablet 1 tablet, By Mouth, 2 times a day, Maintenance, 07/03/20 14:34:00 EDT Start Date: 07/03/20 Status: Ordered Citrate of Magnesia 8.85% oral liquid 1 dose, By Mouth, PRN Constipation, Maintenance, 07/03/20 14:49:00 EDT Start Date: 07/03/20 Status: Ordered gabapentin 300 mg oral capsule 300 mg, 1, capsule, By Mouth, Daily at bedtime, Maintenance, 07/03/20 14:33:00 EDT Start Date: 07/03/20 Status: Ordered lidocaine 4% patch 1 patch, Topically, Daily, apply to right upper arm; on 8 am and off 8 pm, Maintenance, 07/03/20 14:43:00 EDT Start Date: 07/03/20 Status: Ordered losartan 100 mg oral tablet 1 tablet = 100 mg, By Mouth, Daily, Maintenance, 07/03/20 14:38:00 EDT Start Date: 07/03/20 Status: Ordered oxyCODONE 5 mg oral tablet 5 mg, 1, tablet, By Mouth, Every 6 hours, PRN, Refills 0, Tot. Refills 0, Maintenance, as needed for pain, 08/22/20 12:33:00 EDT, Partial fill upon patient request if the prescription is for a schedule II opioid drug. Start Date: 08/22/20 Status: Ordered tamsulosin 0.4 mg oral capsule 0.4 mg, 1, capsule, By Mouth, Daily at bedtime, Maintenance, 07/03/20 14:37:00 EDT Start Date: 07/03/20 Status: Ordered Xarelto 20 mg oral tablet 1 tablet = 20 mg, By Mouth, Daily in PM, with evening meal, # 30 tablet, 0 Refills, Maintenance, 09/05/20 15:46:00 EDT, Tablet, Partial fill upon patient request if the prescription is for a scheduleII opioid drug. Start Date: 09/05/20 Status: Ordered Zofran ODT 4 mg oral tablet, disintegrating = 4 mg, By Mouth, Every 6 hours, PRN Nausea & Vomiting, Maintenance, 07/03/20 14:47:00 EDT Start Date: 07/03/20 Status: Ordered Problem List Condition Confirmation Course Effective Dates Status Health St atus Informant UTI (urinary tract infection) due to urinary indwelling catheter Confirmed Active History of CVA (cerebrovascular accident) Confirmed Active Vital Signs Most recent to oldest [Reference Range]: 1 Height 175.3 cm (04/29/22 11:15 AM) Patient Care team information Care Team Personnel Name: Thea Mg RN Position: S RN Member Role: Primary Care Nurse Name: Fabi Bergeron RN Position: [facility] RN Member Role: Primary Care Nurse Name: Marcell MARTINEZ , Blake Zendejas Position: [facility] Outreach Member Role: PCP Address: Address: [address] [place] [address]- [place] Name: Dillon Guillermo RN Position: [facility] RN Member Role: Primary Care Nurse Name: Cedric Rich RN Position: [facility] PCO RN Member Role: Primary Care Nurse Name: Awais Singh MD Position: [facility] Renal MD Member Role: Lifetime Consulting Physician Address: Address: [address] [place] [address] [address] [facility] [place] [address]- [place] Name: Raeann George RN Position: [facility] RN Member Role: Primary Care Nurse Name: Al Alex MD Position: [facility] Renal MD Member Role: Lifetime Consulting Physician Address: Address: [address] [facility] [place] [address]- [place] Care Team Related Persons Name: MIGUEL GOOD Address: home [address] [place] [address]
--- OUTSIDE RECORDS SUMMARY | 2023-10-05 00:37 | XMS_ITS | Continuity of Care Document ---
Author Organization [facility] Address [address] [place] [phone]- Care Team Providers Care Media Center Specialist Name Role Phone Marcell MARTINEZ, Blake Zendejas Primary Care Physician Encounter [facility] ACCT [facility] [id number] Date(s): 07/13/23 - 08/12/[address] [facility] [address] [place] [address]- Attending Physician: Chepe Wise Admitting Physician: Chepe Wise Referring Physician: AdmtrChepe Allergies, Adverse Reactions, Alerts No Known Allergies [...] History of CVA (cerebrovascular accident) Confirmed Active Patient Care team information Care Team Personnel Name: Thea Mg RN Position: [facility] RN Member Role: Primary Care Nurse Name: Fabi Bergeron RN Position: [facility] RN Member Role: Primary Care Nurse Name: Raeann Williamson RN Position: [facility] SN RN Member Role: Primary Care Nurse Name: Marcell MARTINEZ , Blake Zendejas Position: [facility] Outreach Member Role: PCP Address: Address: [address] [place] [address]- [place] Name: Dillon Guillermo RN Position: [facility] RN Member Role: Primary Care Nurse Name: Cedric Rich RN Position: [facility] AMB Nurse Member Role: Primary Care Nurse Name: Awais Singh MD Position: [facility] Renal MD Member Role: Lifetime Consulting Physician Address: Address: [address] [place] [address] [address] [facility] [place] [address]- [place] Name: Al Alex MD Position: [facility] Renal MD Member Role: Lifetime Consulting Physician Address: Address: [address] [facility] [place] [address]- Care Team Related Persons Name: MIGUEL GOOD Address: home [address] [place] [address]
--- OUTSIDE RECORDS SUMMARY | 2023-10-05 00:37 | XMS_ITS | Continuity of Care Document ---
Author Organization [facility] Address [address] [place] [address]- Care Team Providers Care Sr. Manager Marketing Name Role Phone Blake Faith MD Primary Care Physician [phone] Encounter [facility] [id number] Date(s): 11/19/22 - 12/25/22 [facility] [address] [place] [address]- Attending Physician: Blake Donnelly MD Admitting Physician: Blake Donnelly MD Referring Physician: Blake Faith MD Allergies, Adverse Reactions, Alerts No Known [...] Care Nurse Name: Fabi Bergeron RN Position: [facility] RN Member Role: Primary Care Nurse Name: Raeann Williamson RN Position: [facility] SN RN Member Role: Primary Care Nurse Name: Marcell MARTINEZ , Blake Zendejas Position: [facility] Outreach Member Role: PCP Address: Address: [address] [place] [address]- Name: Dillon Guillermo RN Position: [facility] RN Member Role: Primary Care Nurse Name: Cedric Rich RN Position: [facility] AMB Nurse Member Role: Primary Care Nurse Name: Awais Singh MD Position: [facility] Renal MD Member Role: Lifetime Consulting Physician Address: Address: [address] [place] [address] [address] [facility] [place] [address]- [place] Name: Al Alex MD Position: [facility] Renal MD Member Role: Lifetime Consulting Physician Address: Address: [address] [facility] [place] [address]- Care Team Related Persons Name: MIGUEL GOOD Address: home [address] [place] [address]
--- OUTSIDE RECORDS SUMMARY | 2023-10-05 00:37 | XMS_ITS | Continuity of Care Document ---
Author Organization [facility] ter Address [address] [place] [address]- Care Team Providers Care Entry Level Automotive Technician Name Role Phone Marcell MARTINEZ, Blake Zendejas Primary Care Physician Encounter [facility] [place] Date(s): 08/22/20 - 09/05/[address] [address] Discharge Disposition: A-Transfer SNF Attending Physician: Davis Tuttle MD Admitting Physician: Jack Nelson MD Referring Physician: Not on Staff, Referring MD Allergies, Adverse Reactions, Alerts Substance Reaction Severity Status NKA Active Medications acetaminophen 325 mg oral tablet 650 mg, 2, tablet, By Mouth, Every 4 hours, PRN, Maintenance, as needed for fever/ fever, 08/22/20 12:24:00 EDT, Partial fill upon patient request if the prescription is for a schedule II opioid drug. Start Date: 08/22/20 Status: Ordered acetaminophen 500 mg oral tablet 1 tablet = 500 mg, By Mouth, Every 6 hours, PRN Pain , Moderate, Maintenance, 08/22/20 12:26:00 EDT, Partial fill upon patient request if the prescription is for a schedule II opioid drug. Start Date: 08/22/20 Status: Ordered amLODIPine 5 mg oral tablet 5 mg, [...] 14:40:00 EDT Start Date: 07/03/20 Status: Ordered Augmentin 500 mg-125 mg oral tablet 1 tablet, By Mouth, Every 8 hours, for 7 days, # 21 tablet, 0 Refills, Acute 09/12/20 16:47:00 EDT,09/05/20 16:47:00 EDT, Tablet, Partial fill upon patient request if the prescription is for a schedule II opioid drug. Start Date: 09/05/20 Stop Date: 09/12/20 Status: Ordered Bisac-Evac 10 mg rectal suppository [...] 14:49:00 EDT Start Date: 07/03/20 Status: Ordered Fleet Enema 19 gm-7 gm rectal enema 1 each, Rectally, Once, PRN for constipation, Maintenance, 08/22/20 12:29:00 EDT, Enema, Partial fill upon patient request if the prescription is for a schedule II opioid drug. Start Date: 08/22/20 Status: Ordered gabapentin 300 mg oral capsule 300 mg, 1, capsule, By Mouth, Daily at bedtime, Maintenance, 07/03/20 14:33:00 EDT Start Date: 07/03/20 Status: Ordered Labs: Electrolytes, BUN, Cr in one week Labs: Electrolytes, BUN, Cr in one week, See Instructions, # 1 Unknown, Refills 0, Tot. Refills 0, Maintenance, Please check these labs in one week and fax to PCP Dr. Blake Faith, 09/05/20 15:54:00 EDT, Supply Start Date: 09/05/20 Status: Ordered levoFLOXacin 750 mg oral tablet 1 tablet = 750 mg, By Mouth, Every 24 hours, for 7 days, # 7 tablet, 0 Refills, Acute 09/12/20 15:48:00 EDT, 09/05/20 15:48:00 EDT, Tablet, Partial fill upon patient request if the prescription is for a schedule II opioid drug. Start Date: 09/05/20 Stop Date: 09/12/20 Status: Ordered lidocaine 4% patch 1 patch, Topically, Daily, apply to right upper arm; on 8 am and off 8 pm, Maintenance, 07/03/20 14:43:00 EDT Start Date: 07/03/20 Status: Ordered losartan 100 mg oral tablet 1 tablet = 100 mg, By Mouth, Daily, Maintenance, 07/03/20 14:38:00 EDT Start Date: 07/03/20 Status: Ordered losartan 50 mg oral tablet 50 mg, Tablet, By Mouth, 09/05/20 9:00:00 EDT Start Date: 09/05/20 Stop Date: 09/05/20 Status: Completed oxyCODONE 5 mg oral capsule 2 capsule = 10 mg, By Mouth, Every 6 hours, PRN Pain , Severe, 0 Refills, Maintenance, 08/22/20 12:34:00 EDT, Capsule, Partial fill upon patient request if the prescription is for a schedule II opioid drug. Start Date: 08/22/20 Status: Ordered oxyCODONE 5 mg oral tablet [...] Date: 07/03/20 Status: Ordered Problem List Condition Effective Dates Status Health Status Inform ant History of CVA (cerebrovascu lar accident)(Confirmed) Active Results Orders for Microbiology Reports Name Date Wound Deep Culture w/ Gram Smear 09/02/20 Blood Culture 08/28/20 Blood Culture #2 08/28/20 Blood Culture 08/24/20 Blood Culture #2 08/24/20 Blood Culture 08/21/20 Blood Culture #2 08/21/20 Microbiology Reports TEST:Deep Wound Culture STATUS:Auth (Verified) BODY SITE: SOURCE:SWAB1 COLLECTED DATE/TIME:09/02/20 5:20 AM Deep Wound Culture SPECIMEN DESCRIPTION : SWAB DECUBITIS SPECIAL REQUESTS : NONE GRAM STAIN : 2+ POLYMORPHONUCLEAR LEUKOCYTES 1+ GRAM NEGATIVE RODS CULTURE : 4+ PSEUDOMONAS AERUGINOSA 2+ ENTEROCOCCUS FAECALIS REPORT STATUS : FINAL 09/05/2020 ORGANISM 4+ PSEUDOMONAS AERUGINOSA METHOD MIN. INHIB. CONC. (MCG/ML) CEFEPIME INTERMEDIATE CEFTAZIDIME INTERMEDIATE CIPROFLOXACIN SUSCEPTIBLE GENTAMICIN SUSCEPTIBLE LEVOFLOXACIN SUSCEPTIBLE MEROPENEM SUSCEPTIBLE PIPERACILLIN/TAZOBAC INTERMEDIATE ORGANISM 2+ ENTEROCOCCUS FAECALIS METHOD MIN. INHIB. CONC. (MCG/ML) AMPICILLIN SUSCEPTIBLE VANCOMYCIN SUSCEPTIBLE GENTAMICIN SYNERGY ACTIVE IN SYNERGY STREPTOMYCIN SYNERGY ACTIVE IN SYNERGY TEST:Blood Culture STATUS:Auth (Verified) BODY SITE: SOURCE:Blood COLLECTED DATE/TIME:08/28/20 3:33 PM Blood Culture SPECIMEN DESCRIPTION : BLOOD RIGHT HAND SPECIAL REQUESTS : NONE CULTURE : NO GROWTH 5 DAYS. REPORT STATUS : FINAL 09/02/2020 TEST:Blood Culture, Second Order STATUS:Auth (Verified) BODY SITE: SOURCE:Blood COLLECTED DATE/TIME:08/28/20 3:33 PM Blood Culture, Second Order SPECIMEN DESCRIPTION : BLOOD LEFT ARM SPECIAL REQUESTS : NONE CULTURE : NO GROWTH 5 DAYS. REPORT STATUS : FINAL 09/02/2020 TEST:Blood Culture STATUS:Auth (Verified) BODY SITE: SOURCE:Blood COLLECTED DATE/TIME:08/24/20 6:14 AM Blood Culture SPECIMEN DESCRIPTION : BLOOD r hand SPECIAL REQUESTS : NONE CULTURE : NO GROWTH 5 DAYS. REPORT STATUS : FINAL 08/29/2020 TEST:Blood Culture, Second Order STATUS:Auth (Verified) BODY SITE: SOURCE:Blood COLLECTED DATE/TIME:08/24/20 6:14 AM Blood Culture, Second Order SPECIMEN DESCRIPTION : BLOOD r wrist SPECIAL REQUESTS : NONE CULTURE : NO GROWTH 5 DAYS. REPORT STATUS : FINAL 08/29/2020 TEST:Blood Culture, Second Order STATUS:Auth (Verified) BODY SITE: SOURCE:Blood COLLECTED DATE/TIME:08/21/20 6:41 PM Blood Culture, Second Order SPECIMEN DESCRIPTION : BLOOD RIGHT HAND SPECIAL REQUESTS : NONE CULTURE : NO GROWTH 5 DAYS. REPORT STATUS : FINAL 08/26/2020 TEST:Blood Culture STATUS:Auth (Verified) BODY SITE: SOURCE:Blood COLLECTED DATE/TIME:08/21/20 6:26 PM Blood Culture SPECIMEN DESCRIPTION : BLOOD LEFT HAND SPECIAL REQUESTS : CRITICAL VALUE CALLED AND VERIFIED BY READBACK FOR: GRAM NEGATIVE RODS CALLED TO SICU [id number] 08/22/2020 2007 BY [employer] [id number]. CULTURE : KLEBSIELLA PNEUMONIAE Klebsiella pneumoniae was identified by multi-plex PCR REPORT STATUS : FINAL 08/24/2020 ORGANISM KLEBSIELLA PNEUMONIAE METHOD MIN. INHIB. CONC. (MCG/ML) AMPICILLIN RESISTANT AMPICILLIN/SULBACTAM RESISTANT AMOXICILLIN/CLAVULAN SUSCEPTIBLE CEFAZOLIN INTERMEDIATE CEFEPIME SUSCEPTIBLE CEFTRIAXONE SUSCEPTIBLE CIPROFLOXACIN SUSCEPTIBLE ERTAPENEM SUSCEPTIBLE GENTAMICIN SUSCEPTIBLE LEVOFLOXACIN SUSCEPTIBLE MEROPENEM SUSCEPTIBLE PIPERACILLIN/TAZOBAC SUSCEPTIBLE TRIMETH/SULFAMETHOX SUSCEPTIBLE TETRACYCLINE RESISTANT Radiology Reports * Exam Date Time Procedure Performing Provider Status 08/26/20 6:42 PM Hand Min 3 Views Right Irene Doyle; Auth (Verified) Notes: (Hand Min 3 Views Right) Reason For Exam: Pain RESULT: Hand Min 3 Views Right Right hand 3 views dated August 26, 2020. No prior studies are available. HISTORY: Pain. FINDINGS: Today's study is markedly limited as the patient's hand is contracted. No fracture or dislocation is identified. Joint spaces are unremarkable. IMPRESSION: Limited evaluation showing no evidence of fracture or dislocation. Examination [address]. Thank you for allowing me to participate in the care of this patient. WSN: [id number] Ordering Physician: Sandy Douglas Dictated By: Zion Hernandez MD Dictated Date/Time: 08/26/20 6:56 pm Reviewed By: Zion Hernandez MD Signed By: Zion Hernandez MD Signed Date/Time: 08/26/20 6:56 pm Transcribed By: DANIELLE Transcribed Date/Time: 08/26/20 6:55 pm * Exam Date Time Procedure Performing Provider Status 08/22/20 4:53 AM Elbow 2 Views Right Debra Dalton; Modified Notes: (Elbow 2 Views Right) Reason For Exam: Pain RESULT: Elbow 2 Views Right Elbow 2 Views Right, 1 views. Single lateral projection of the right elbow. HISTORY: Pain. COMPARISON: None. FINDINGS: No fracture, dislocation, or joint effusion. Moderate soft tissue swelling overlying the dorsal aspect of the proximal ulna. IMPRESSION: No fracture or dislocation in the single lateral projection of the right elbow. I have personally reviewed the images and I agree with this report. WSN: [id number] Ordering Physician: Ricardo Badillo Dictated By: Agusto Crane MD Dictated Date/Time: 08/22/20 8:55 am Reviewed By: Blake Huber MD Signed By: Blake Huber MD Signed Date/Time: 08/22/20 9:00 am Transcribed By: DANIELLE Transcribed Date/Time: 08/22/20 8:27 am * Exam Date Time Procedure Performing Provider Status 08/21/20 10:51 PM Chest Portable Arjun Prakash; Gissell (Verified) Notes: (Chest Portable) Reason For Exam: Tube Placement RESULT: Chest Portable Chest Portable Reason: Tube Placement; Clinical Question(s): Tube Placement COMPARISON: 08/21/2020 at 6:56 PM FINDINGS: LINES AND TUBES: Right internal jugular CVL with tip terminating at the level of the dean within the lower SVC. LUNGS AND PLEURA: Low lung volumes with mild basilar atelectasis. Lungs are otherwise clear with no consolidation. No pleural effusion. No pneumothorax. HEART, MEDIASTINUM AND ANTONETTE: Heart is normal in size. Normal upper mediastinal and hilar contour. BONES AND SOFT TISSUES: No acute abnormality. IMPRESSION: Well-positioned right IJ CVL. No acute abnormality. WSN: [id number] Ordering Physician: Mike Millan Dictated By: Raul Choi MD Dictated Date/Time: 08/21/20 11:24 p Reviewed By: Raul Choi MD Signed By: Raul Choi MD Signed Date/Time: 08/21/20 11:24 pm Transcribed By: DANIELLE Transcribed Date/Time: 08/21/20 11:23 pm * Exam Date Time Procedure Performing Provider Status 08/21/20 7:46 PM Chest Portable Sangeetha Gordon ( Verified) Notes: (Chest Portable) Reason For Exam: Shortness of Breath RESULT: Chest Portable Chest Portable Hx of Present Illness: hpotension; Reason: Shortness of Breath; Clinical Question(s): CHF COMPARISON: None. FINDINGS: LINES AND TUBES: None. LUNGS AND PLEURA: There is mild pulmonary vascular congestion. There is an opacity in the medial right upper lung field. No pleural effusion. No pneumothorax. HEART, MEDIASTINUM AND ANTONETTE: The cardiomediastinal silhouette is mildly prominent. BONES AND SOFT TISSUES: No acute abnormality. IMPRESSION: 1. Mild prominence of the cardiomediastinal silhouette with mild pulmonary vascular congestion. 2. Medial right upper lung field opacity. Differential considerations include infectious, inflammatory or neoplastic etiology. Further evaluation may be performed with a CT scan of the chest. WSN: [id number] Ordering Physician: Edvin Holcomb Dictated By: Alicia Marroquin MD Dictated Date/Time: 08/21/20 7:50 pm Reviewed By: Alicia Marroquin MD Signed By: Alicia Marroquin MD Signed Date/Time: 08/21/20 7:50 pm Transcribed By: DANIELLE Transcribed Date/Time: 08/21/20 7:48 pm Vital Signs Most recent to oldest [Reference Range]: 1 2 3 Weight 67.5 kg (09/03/20 5:50 AM) 64.8 kg (09/01/20 9:00 AM) 65.2 kg (08/28/20 10:32 AM) Oxygen Saturation [94-100 %] 100 % (09/05/20 4:52 PM) 100 % (09/05/20 11:00 AM) 99 % (09/05/20 12:47 AM) Pulse Rate [55-90 bpm] 77 bpm (09/05/20 4:52 PM) 73 bpm (09/05/20 11:00 AM) 66 bpm (09/05/20 12:47 AM) Blood Pressure [90-138/55-84 mm Hg] 139/93mm Hg *H* (09/05/20 4:52 PM) 130/74mm Hg (09/05/20 11:00 AM) 144/80mm Hg *H* (09/05/20 8:20 AM) Respiratory Rate [16-30 br/min] 18 br/min (09/05/20 4:52 PM) 18 br/min (09/05/20 11:00 AM) 18 br/min (09/05/20 12:47 AM) Temperature [96.8-100.4 DegF] 99.2 DegF (09/05/20 4:52 PM) 98.5 DegF (09/05/20 11:00 AM) 98.7 DegF (09/05/20 12:47 AM) Liters per Minute 2 L/min (08/28/20 4:49 AM) 2 L/min (08/28/20 4:00 AM) Mode of Delivery (Oxygen) Room air (09/05/20 4:52 PM) Room air (09/05/20 11:00 AM) Room air (09/05/20 12:47 AM) Blood pressure sites Arm, left (09/05/20 4:52 PM) Arm, left (09/05/20 11:00 AM) Leg, left (09/05/20 12:47 AM) Temperature Route Oral (09/05/20 4:52 PM) Oral (09/05/20 11:00 AM) Oral (09/05/20 12:47 AM) Weight Obtained Via Bed scale (09/03/20 5:50 AM) Bed scale (09/01/20 9:00 AM) Bed scale (08/28/20 10:32 AM)
--- OUTSIDE RECORDS SUMMARY | 2023-10-05 00:37 | XMS_ITS | Continuity of Care Document ---
Author Organization [facility] Renate brea Address [address] [place] [address] [address] [place] [address]- Care Team Providers Care Freelance Court Stenographer Name Role Phone Blake Faith MD Primary Care Physician [phone] Encounter [facility] [place] Date(s): 04/29/22 - 05/29/22 [facility] [address] [place] [address]- Attending Physician: Chepe Wise Admitting Physician: AdmtrChepe Referring Physician: AdmtrChepe Allergies, Adverse Reactions, Alerts [...] Team Personnel Name: Thea Mg RN Position: [facility] RN Member Role: Primary Care Nurse Name: Fabi Bergeron RN Position: [facility] RN Member Role: Primary Care Nurse Name: Raeann Williamson RN Position: [facility] SN RN Member Role: Primary Care Nurse Name: Blake Faith MD Position: [facility] Outreach Member Role: PCP Address: Address: [address] [place] [address]- [place] Name: Dillon Guillermo RN Position: [facility] RN Member Role: Primary Care Nurse Name: Cedric Rich RN Position: [facility] PCO RN Member Role: Primary Care Nurse Name: Awais Singh MD Position: [facility] Renal MD Member Role: Lifetime Consulting Physician Address: Address: [address] [place] [address] [address] [facility] [place] [address]- [place] Name: Al Alex MD Position: [facility] Renal MD Member Role: Lifetime Consulting Physician Address: Address: [address] [place] [address] [facility] [place] [address]- Care Team Related Persons Name: MIGUEL GOOD Address: home [address] [place] [address]
--- OUTSIDE RECORDS SUMMARY | 2023-10-05 00:37 | XMS_ITS | Continuity of Care Document ---
Author Organization [facility] Address [address] [place] [address]- Care Team Providers Care Knurling Machine Tender Name Role Phone Marcell MARTINEZ, Blake Zendejas Primary Care Physician Encounter [facility] [place] Date(s): 10/09/20 - 10/10/[address] [address]- Encounter Diagnosis Hematuria(Final) - 10/09/20 Acute UTI(Final) - 10/09/20 Discharge Disposition: A-Transfer SNF Attending Physician: Lolita Bernard MD Admitting Physician: Erlin Lambert MD Referring Physician: Not on Staff, Referring MD Allergies, Adverse Reactions, Alerts Substance Reaction Severity Status NKA Active Medications amLODIPine 5 mg oral tablet 5 [...] 14:34:00 EDT Start Date: 07/03/20 Status: Ordered cefdinir 300 mg oral capsule 1 capsule = 300 mg, By Mouth, Every 12 hours, for 3 days, # 6 capsule, 0 Refills, Acute 10/13/20 11:47:00 EDT, 10/10/20 11:47:00 EDT, Capsule, Partial fill upon patient request if the prescription isfor a schedule II opioid drug. Start Date: 10/10/20 Stop Date: 10/13/20 Status: Ordered Citrate of Magnesia 8.85% oral [...] Effective Dates Status Health Status Inform ant UTI (urinary tract infection ) due to urinary indwelling catheter(Confirmed) Active History of CVA (cerebrovascu lar accident)(Confirmed) Active Results Orders for Microbiology Reports Name Date Urine Culture (URINE CULTURE) 10/09/20 Microbiology Reports TEST:Urine Culture STATUS:Unauthenticated BODY SITE: SOURCE:URINE COLLECTED DATE/TIME:10/09/20 3:59 PM Urine Culture SPECIMEN DESCRIPTION : URINE SPECIAL REQUESTS : NONE CULTURE : >100,000 COL/ML GRAM NEGATIVE RODS REPORT STATUS : PRELIMINARY REPORT Vital Signs Most recent to oldest [Reference Range]: 1 2 3 Oxygen Saturation [94-100 %] 100 % (10/10/20 1:36 PM) 99 % (10/10/20 11:41 AM) 100 % (10/10/20 9:09 AM) Pulse Rate [55-90 bpm] 72 bpm (10/10/20 1:36 PM) 74 bpm (10/10/20 11:41 AM) 86 bpm (10/10/20 9:09 AM) Blood Pressure [90-138/55-84 mm Hg] 100/70mm Hg (10/10/20 1:36 PM) 101/67mm Hg (10/10/20 11:41 AM) 107/71mm Hg (10/10/20 9:09 AM) Respiratory Rate [16-30 br/min] 18 br/min (10/10/20 1:36 PM) 16 br/min (10/10/20 11:41 AM) 16 br/min (10/10/20 9:09 AM) Temperature [96.8-100.4 DegF] 98.1 DegF (10/10/20 11:41 AM) 98.3 DegF (10/10/20 9:09 AM) 99.1 DegF (10/10/20 6:52 AM) Mode of Delivery (Oxygen) Room air (10/10/20 1:36 PM) Room air (10/10/20 11:41 AM) Room air (10/10/20 9:09 AM) Blood pressure sites Arm, right (10/10/20 11:41 AM) Arm, left (10/10/20 9:09 AM) Arm, right (10/10/20 6:52 AM) Temperature Route Oral (10/10/20 11:41 AM) Oral (10/10/20 9:09 AM) Oral (10/10/20 6:52 AM)
--- OUTSIDE RECORDS SUMMARY | 2023-10-05 00:37 | XMS_ITS | Continuity of Care Document ---
Author Organization [facility] Address [address] [place] [address]- Care Team Providers Care Hog Ringer Name Role Phone Blake Faith MD Primary [id number]12[facility] [address] [place] [address] Attending Physician: Blake Donnelly MD Admitting Physician: [...] Care Nurse Name: Raeann Williamson RN Position: [facility] SN RN Member Role: Primary Care Nurse Name: Marcell MARTINEZ , Blake Zendejas Position: [facility] Outreach Member Role: PCP Address: Address: [address] [place] [address]- [place] Name: Dillon Guillermo RN Position: [facility] RN Member Role: Primary Care Nurse Name: Cedric Rich RN Position: [facility] AMB Nurse Member Role: Primary Care Nurse Name: Awais Singh MD Position: [facility] Renal MD Member Role: Lifetime Consulting Physician Address: Address: [address] [place] [address] [address] [facility], [place] [address]- [place] Name: Al Alex MD Position: [facility] Renal MD Member Role: Lifetime Consulting Physician Address: Address: [address] [facility] [place] [address]- Care Team Related Persons Name: MIGUEL GOOD Address: home [address] [place] [address]
--- OUTSIDE RECORDS SUMMARY | 2023-10-05 00:37 | XMS_ITS | Continuity of Care Document ---
Author Organization [facility] Renate [facility]a Address [address] [place] [address] [address] [place] [address]- Care Team Providers Care Financial Reserve Clerk Name Role Phone Not on Staff, PCP Primary Care Physician Unavail able Encounter [facility] [place] Date(s): 11/17/21 - 12/17/21 [facility] [address] [place] [address]- Allergies, Adverse Reactions, Alerts No Known Allergies [...] accident) Confirmed Active Patient Care team information Personnel Name: Not on Staff, PCP
--- OUTSIDE RECORDS SUMMARY | 2023-10-05 00:37 | XMS_ITS | Continuity of Care Document ---
Author Organization [facility] Address [address] [place] [address]- Care Team Providers Care Superintendent Pipelines Name Role Phone Blake Faith MD Primary Care Physician [phone] Encounter [facility] [place] [facility] [id number] Date(s): 11/25/22 - 12/25/22 [facility] [address] [place] [address] Attending Physician: Chepe Wise Admitting Physician: Chepe [...] Team Personnel Name: Thea Mg RN Position: [facility] RN Member Role: Primary Care Nurse Name: Fabi Bergeron RN Position: [facility] RN Member Role: Primary Care Nurse Name: Raeann Williamson RN Position: [facility] SN RN Member Role: Primary Care Nurse Name: Blake Faith MD Position: [facility] Outreach Member Role: PCP Address: Address: [address] [place] [address]- [place] Name: Dillon Guillermo RN Position: [facility] RN Member Role: Primary Care Nurse Name: Cedric Rich RN Position: [facility] AMB Nurse Member Role: Primary Care Nurse Name: Awais Singh MD Position: [facility] Renal MD Member Role: Lifetime Consulting Physician Address: Address: [address] [place] [address] [address] [facility] [place], [place] [address]- [place] Name: Al Alex MD Position: [facility] Renal MD Member Role: Lifetime Consulting Physician Address: Address: [address] [place] [address] [facility] [place] [address]- Care Team Related Persons Name: MIGUEL GOOD Address: home [address] [place] [address]
--- OUTSIDE RECORDS SUMMARY | 2023-10-05 00:37 | XMS_ITS | Continuity of Care Document ---
Author Organization [facility] Address [address] [place] [id number]- Care Team Providers Care Wardrobe Custodian Name Role Phone Blake Faith MD Primary Care Physician Encounter [facility] Date(s): 07/04/20 - 07/04/[address] [address]- Discharge Disposition: A-D/C Home Attending Physician: Herminio Vela DDS Admitting Physician: Herminio Vela DDS Referring Physician: Herminio Vela DDS Allergies, Adverse Reactions, Alerts Substance Reaction Severity [...] 14:40:00 EDT Start Date: 07/03/20 Status: Ordered calcium and vitamin D combination 600 mg-200 u oral tablet 1 tablet, By Mouth, 2 times a day, Maintenance, 07/03/20 14:34:00 EDT Start Date: 07/03/20 Status: Ordered Citrate of Magnesia 8.85% oral liquid 1 dose, By Mouth, PRN Constipation, Maintenance, 07/03/20 14:49:00 EDT Start Date: 07/03/20 Status: Ordered Ensure Nutritional Supplement Ensure Nutritional Supplement, 8 oz, By Mouth, 3 times a day with meals, Maintenance, 07/03/20 14:45:00 EDT Start Date: 07/03/20 Status: Ordered gabapentin 300 mg oral capsule 300 mg, 1, capsule, By Mouth, Daily at bedtime, Maintenance, 07/03/20 14:33:00 EDT Start Date: 07/03/20 Status: Ordered hydrALAZINE 25 mg oral tablet 25 mg, 1, tablet, By Mouth, 3 times a day, Maintenance, 07/03/20 14:41:00 EDT Start Date: 07/03/20 Status: Ordered labetalol 100 mg oral tablet 1 tablet = 100 mg, By Mouth, 2 times a day, Maintenance, 07/03/20 14:42:00 EDT Start Date: 07/03/20 Status: Ordered lidocaine 4% patch 1 patch, Topically, Daily, apply to right upper arm; on 8 am and off 8 pm, Maintenance, 07/03/20 14:43:00 EDT Start Date: 07/03/20 Status: Ordered losartan 100 mg oral tablet 1 tablet = 100 mg, By Mouth, Daily, Maintenance, 07/03/20 14:38:00 EDT Start Date: 07/03/20 Status: Ordered Narcan 4 mg/0.1 mL nasal spray = 4 mg, Nares, Both, PRN suspected opioid overdose, may repeat x 1; use opposite nostril, Maintenance, 07/03/20 14:48:00 EDT Start Date: 07/03/20 Status: Ordered potassium chloride 20 mEq oral tablet, extended release 1 tablet = 20 mEq, By Mouth, Daily, Maintenance, 07/03/20 14:35:00 EDT Start Date: 07/03/20 Status: Ordered tamsulosin 0.4 mg oral capsule 0.4 mg, 1, capsule, By Mouth, Daily at bedtime, Maintenance, 07/03/20 14:37:00 EDT Start Date: 07/03/20 Status: Ordered Xarelto 2.5 mg oral tablet 1 tablet = 2.5 mg, By Mouth, 2 times a day, Maintenance, 07/03/20 14:39:00 EDT Start Date: 07/03/20 Status: Ordered Zofran ODT 4 mg oral tablet, disintegrating = 4 mg, By Mouth, Every 6 hours, PRN Nausea & Vomiting, Maintenance, 07/03/20 14:47:00 EDT Start Date: 07/03/20 Status: Ordered Vital Signs Most recent to oldest [Reference Range]: 1 2 3 Height 175.3 cm (07/04/20 8:52 AM) 175.3 cm (07/03/20 1:28 PM) Weight 76.4 kg (07/04/20 8:52 AM) 76.4 kg (07/03/20 1:28 PM) Oxygen Saturation [94-100 %] 96 % (07/04/20 12:15 PM) 99 % (07/04/20 12:00 PM) 99 % (07/04/20 11:45 AM) Pulse Rate [55-90 bpm] 62 bpm (07/04/20 8:52 AM) Body Mass Index [18.5-24.99] 24.86 (07/04/20 8:52 AM) 24.86 (07/03/20 1:28 PM) Blood Pressure [90-138/55-84 mm Hg] 89/62mm Hg *L* (07/04/20:15 PM) 94/66mm Hg (07/04/20 12:00 PM) 92/63mm Hg (07/04/20 11:45 AM) Respiratory Rate [16-30 br/min] 25 br/min (07/04/20 12:15 PM) 12 br/min *L* (07/04/20 12:00 PM) 12 br/min *L* (07/04/20 11:45 AM) Temperature [96.8-100.4 DegF] 97.0 DegF (07/04/20 12:15 PM) 96.9 DegF (07/04/20 11:00 AM) 98.2 DegF (07/04/20 8:52 AM) Liters per Minute 5 L/min (07/04/20 12:00 PM) 5 L/min (07/04/20 11:45 AM) 5 L/min (07/04/20 11:30 AM) Mode of Delivery (Oxygen) Room air (07/04/20:15 PM) Simple face mask (07/04/20 12:00 PM) Simple face mask (07/04/20 11:45 AM) Blood pressure sites Arm, right (07/04/20 11:00 AM) Arm, left (07/04/20 8:52 AM) Temperature Route Temporal (07/04/20 12:15 PM) Temporal (07/04/20 11:00 AM) Temporal (07/04/20 8:52 AM) Dry Weight 76.4 kg (07/03/20 1:28 PM) Weight Obtained Via Standing scale (07/04/20 8:52 AM) SNF records (07/03/20 1:28 PM) Dry Weight Obtained Via SNF records (07/03/20 1:28 PM)
--- OUTSIDE RECORDS SUMMARY | 2023-10-05 00:37 | XMS_ITS | Continuity of Care Document ---
Author Organization [facility] Renate brea Address [address] [place] [address] [address] [place] [address]- Care Team Providers Care Feather Baler Name Role Phone Marcell MARTINEZ, Blake Zendejas Primary Care Physician Encounter [facility] Date(s): 12/08/21 - 01/07/22 [facility] [address] [place] [address]- Allergies, Adverse Reactions, Alerts No Known Allergies [...] Team Personnel Name: Thea Mg RN Position: [facility] RN Member Role: Primary Care Nurse Name: Fabi Bergeron RN Position: S RN Member Role: Primary Care Nurse Name: Blake Faith MD Position: [facility] Outreach Member Role: PCP Address: Address: [address] [place] [address]- [place] Name: Dillon Guillermo RN Position: S RN Member Role: Primary Care Nurse Name: Cedric Rich RN Position: S RN Member Role: Primary Care Nurse Name: Awais Singh MD Position: [facility] Renal MD Member Role: Lifetime Consulting Physician Address: Address: [address] [facility] [address] [facility] [place] [address]- [place] Name: Raeann George RN Position: S RN Member Role: Primary Care Nurse Name: Al Alex MD Position: [facility] Renal MD Member Role: Lifetime Consulting Physician Address: Address: [address] [facility] [place] [address]- [place] Care Team Related Persons Name: GOOD MIGUEL Address: home [address] [place] [address]
[2023-10-05 00:49] LABS: Appearance Urine Turbid; Color Urine Yellow; Glucose Urine UA Negative (Negative); Leukocyte Esterase Urine Large (3+) (Negative); Nitrite Urine Positive (Negative); Specific Gravity - Urine 1.015 (1.005-1.025); UMIC TRIGGER UACC YES; Urine Blood Large (3+) (Negative); Urine Ketones Negative (Negative); Urine Protein 100 (2+) mg/dL (Neg-Trace)
[2023-10-05] MEDS: Potassium Chloride/H20 10 MEQ/100 ML PIGGYBACK 100 MEQ IV (01:00)
[2023-10-05 01:05] LABS: Bacteria Urine 4+ (None Seen); RBC Urine >20 /HPF (0-2); Squamous Epithelial Cell Urine 0-2 /HPF (0-2); UACC Culture Trigger YES; WBC Urine >50 /HPF (0-5)
[2023-10-05] MEDS: cefEPime HCl 2 GM in 0.9 % Sodium Chloride 50 ML IV ×3 (02:28→21:44)
--- NOTE | 2023-10-05 05:15 | PC.NURSE ---
PT iv not working well, difficult mary flush. Attempts to place another IV, pt refusing. MD aware and per hold all IV meds/fluids and assess for PICC line with day team.
--- NOTE | 2023-10-05 06:09 | PHA.PROG ---
Admission Date/Time: October 05, 2023 00:31 Indication: bone and joint Weight in k.1 kg Adjusted body weight in Kg: Lantry body weight in Kg: Obesity Dosing Indication % IBW: Serum Creatinine - Last 168 Hours 10/04/23 19:20 Creatinine 0.93 Estimated CrCl and GFR - Last 168 Hours 10/04/23 19:20 Estim Creat Clear Calc 72.5 Estimated GFR > 60 Vancomycin Loading Dose: 1750mg x 1 Current Vancomycin Dosing Regimen: 750mg Q12H Vancomycin Monitoring using AUC goal of 400 - 600 range with trough as surrogate marker: 481mg/L Date and Time for next Vancomycin Level to be drawn: 10/05 @1400 Pharmacist Comments on Vancomycin Plan: Predicted trough of 15.7mg/L; will continue to monitor and adjust accordingly Vancomycin dosing will take advantage of [employer]BV as a clinical decision support tool that uses Bayesian modeling to calculate individual patient's pharmacokinetic parameters and forecast the patient's drug concentration time course with the target goal AUC 24 range of 400 - 600 mg/L/hr.
[2023-10-05 06:34] VITALS: BP 128/77; PULSE 70; RESP 12; TEMP 36.6; O2SAT 96
[2023-10-05 06:41] LABS: MANUAL DIFF FLAG NO
[2023-10-05 06:48] LABS: Basophils Percent Auto 0.4 % (0-2); Eosinophils Absolute Auto 0.1 X10*3/uL (0.0-0.4); Eosinophils Percent Auto 2.1 % (0-4); Hematocrit 34.5 % (42.0-52.0); Hemoglobin 11.2 g/dl (14.0-18.0); Imm Gran Abs Auto 0.01 X10*3/uL (0.00-0.03); Imm Gran Pct Auto 0.2 % (0.0-0.4); Lymphocytes Absolute Auto 1.3 X10*3/uL (1.2-4.9); Lymphocytes Percent Auto 24.6 % (20-40); Mean Corpuscular HGB Conc 32.5 g/dl (31.0-36.0); Mean Corpuscular Hemoglobin 33.1 pg (27.0-33.0); Mean Corpuscular Volume 102.1 fL (80.0-98.0); Mean Platelet Volume 9.8 fL (9.4-12.4); Monocytes Absolute Auto 0.4 X10*3/uL (0.1-1.2); Monocytes Percent Auto 8.6 % (2-11); Neutrophils Absolute Auto 3.3 x10*3/uL (2.0-8.3); Neutrophils Percent Auto 64.1 % (45-73); Platelet Count 146 X10*3/uL (160-400); Red Blood Count 3.38 X10*6/uL (4.60-5.80); Red Cell Distribution Width 15.5 % (11.0-16.0); White Blood Count 5.1 X10*3/uL (4.8-10.8)
[2023-10-05 07:03] LABS: Blood Urea Nitrogen 35 mg/dL (9-16); Calcium 8.5 mg/dL (8.4-10.2); Creatinine Clr Calc Pharmacy 75.7; Estimated Glomerular Filt Rate > 60; Glucose Random 96 mg/dL (60-115)
[2023-10-05 07:14] LABS: Anion Gap 10 (12-20); Carbon Dioxide 15 mmol/L (22-29); Chloride 125 mmol/L (96-108); Potassium 3.2 mmol/L (3.3-5.1); Sodium 147 mmol/L (135-145)
--- NOTE | 2023-10-05 07:39 | PC.NURSE ---
Provider notified of patient not receiving any IV medications since last night d/t patient not allowing new IV access to be placed and facilities request for PICC line placement
[2023-10-05 07:46] LABS: Creatinine Clr Calc Pharmacy 77.5; Estimated Glomerular Filt Rate > 60
[2023-10-05 08:18] VITALS: BP 132/80; PULSE 65; RESP 12; TEMP 36.8; O2SAT 100
--- NOTE | 2023-10-05 08:53 | PHA.MEDREC ---
Addendum entered by Melba Luna RPh 10/05/23 10:38: Med rec was reviewed. Original Note: Pharmacy Consult ? Medication Reconciliation Pharmacy has completed the medication reconciliation. Completed Med Rec with lists provided by [facility] in [place]. Patient started a Cefazolin Sodium Injection for a 7 day regimen on 10/04/23.
[2023-10-05 09:30] VITALS: BP 140/74; PULSE 77; RESP 15; TEMP 36.6; O2SAT 96
[2023-10-05 09:36] VITALS: BMI 22.9
--- NOTE | 2023-10-05 09:36 | PC.NURSE ---
ED did not give IV K. paged and notified, Meds charted against.
--- NOTE | 2023-10-05 09:39 | MHC.CM.PN ---
IMM 10/04 addressed with pts son/HCP Al. This CM met with pt with the assistance of a site interpreter. Pt mostly non-verbal and answered yes when asked if he would like this CM to call pts HCP to complete CM intake assessment. This CM called pts HCP/son Al with site interpreter. Per Al, pt is a LTC resident of [facility] where he will return via BLS once medically cleared. Pt is bedbound and uses a wheelchair for transporting. PCP: Socorro Wiley
--- NOTE | 2023-10-05 11:13 | PC.NURSE ---
Attempted to place new IV access without success. Patient tolerated poorly. At this time, refuses to allow this RN to remove his current IV that is not working.
[2023-10-05 13:36] VITALS: BMI 22.9
--- NOTE | 2023-10-05 13:38 | MHC.CLN ---
RE: CONSULT PT WITH INCREASED NUTRITION RISK R/T PRESSURE INJURY PT IS CURRENTLY NPO WHEN DIET ADVANCES; RECOMMEND HIGH PROTEIN SUPPLEMENT TO PROMOTE WOUND HEALING WILL ADD ENSURE TID TO PROVIDE 1050KCALS, 60G PROTEIN MONITOR FOR DIET ADVANCEMENT SEE ALSO FULL CLINICAL NUTRITION ASSESSMENT
[2023-10-05] MEDS: vancomycin HCL 750 MG in 0.9 % Sodium Chloride 250 ML 265 MG IV (15:26)
[2023-10-05] MEDS: 0.9 % Sodium Chloride 1,000 ML 100 ML IVCONT (15:26)
[2023-10-05 15:29] VITALS: BP 149/78; PULSE 75; RESP 16; TEMP 36.6; O2SAT 99
--- NOTE | 2023-10-05 15:40 | PM.EVENT ---
Event Note Date of Service: 10/05/23 Event Note: Chart reviewed patient examined agree with history and physical and plan as outlined. ID consult pending Time Spent With Patient Time: Total time managing care of this patient today ____ minutes.
--- NOTE | 2023-10-05 15:47 | HO.SKINPHOTO ---
Location: Sacrum Category: Stage: Length: Width: Depth: cm Location: Category: Stage: Length: Width: Depth: cm Location: Category: Stage: Length: Width: Depth: cm Location: Category: Stage: Length: Width: Depth: cm Location: Category: Stage: Length: Width: Depth: cm Location: Category: Stage: Length: Width: Depth: cm
--- NOTE | 2023-10-05 16:24 | MHC.SL.SWA ---
Speech Pathologist Impression: Risk of Aspiration Due to: Reduced Cognition Dysphasia Diet Status: Recommend continue with PUREED (NDD1) solids and NECTAR THICK liquids, with pills CRUSHED in PUREE. Continue 1:1 assistance and aspiration precautions. Liquid Consistency and Strategies for Safe Swallow: Liquid Intake Recommendation: Thin Liquid Intake Strategies: Unrestricted Solid Food Consistency: Dietary Recommendations: Grnd/Mech Altered (NDD2) Additional Modifications to Solid Foods: Pt requires full assist for all meals, liquids by TSP only, NO STRAWS. Do not attempt if PT is lethargic, not engaged in having meal. Oral Medication Intake: Whole with Puree Please contact the pharmacy regarding appropriate crushable or liquid drug formulations that are available whenever modified delivery is recommended. Compensatory Strategies and Precautions to be Taken for Safe Swallow: Sitting Upright (90 deg) No Straw Alternate Liquids/Solids Rate of Ingestion Change Oral Check Avoid Specific Foods Supervision While Eating and Drinking for Safe Swallow: Intermittent Supervision Foods to Avoid: Swallowing Recommended Treatments: Compens. Strategy Educat. Recommendation for Speech: Inpatient Speech Therapy Comment: Recommend RESTART diet of GROUND/ALTERED SOLIDS (NDD2) and THIN LIQUIDS. MEDS WHOLE, or CRUSHED with PUREE - as tolerated. Pt will benefit from CLOSE SUPERVISION and TRAY SET-UP d/t R-hemiplegia. SECURITY INTERN will continue to follow. Timeline to reassess: PRN Commercial Coordinator Clinican/Clinical Fellow: No Supervisory Statement: I have reviewed and agree with the student/clinical fellow's documentation: N/A Speech Language Pathologist: Diego Hanley M.A., [facility]-SECURITY INTERN
[2023-10-05 19:15] VITALS: BP 150/88; PULSE 80; RESP 18; TEMP 36.3; O2SAT 97
--- NOTE | 2023-10-05 19:54 | HO.WOUND ---
Wound Consult: Initial 68yr old male admitted to [facility] on?10/05/23 00:31 - See progress notes and H&P for detailed history. Wound consult placed for Coccyx wound POA. Pt has been seen in the past by this policy writer. 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 Sacrum / Coccyx Etiology: ??Stage 4 Pressure Injury Present on Admission Wound Bed: moist red pink tissue Drainage / Odor: serosang drainage noted on dressing at time of removal Edges: ?epibole and macerated Bonny wound: Scar tissue noted - pink tissue noted ? No Induration, Fluctuance or Warmth noted Pain: pt denies Goals of Treatment: ? Moist wound healing - Moisture management with Alginate and off load pressure Recommendations: 1. Turn and Reposition every 2 hours and as needed for patient comfort.? Use pillows or wedges to support off loading positions. 2. Off Load all bony prominences with use of pillows and heel boots if needed.? Apply Preventative foams where needed. ? 3. Monitor for incontinence and moisture control, use barrier creams when needed for prevention and treatment. 4. Provide adequate and supplemental nutrition. 5. Order or Continue low air loss mattress. 6. Sacrum / Coccyx - Cleanse and irrigate with NS, Pat dry.? Apply barrier to periwound, cover wound bed with Alginate (Durafiber AG).? Cover with Foam dressing.? Change every 3 days and PRN. Re-consult wound care Nurse for wound deterioration or wound changes.
--- NOTE | 2023-10-06 00:31 | P.CNID_ITS ---
History of Present Illness Data of Consult Service Date: 10/05/23 Requesting physician: Demetri De La Paz Primary Care Provider: Lorraine Wiley MD HPI Reason for consult: possible new OM,possible UTI without sepsis He presents from SNF with blocked suprapubic catheter with sediment. He has no fever or leukocytosis. He has no change apparently in nonverbal state. He has had CVA with right hemiparesis. He has had OM since at least 08/2021 when I saw him in office. He received six weeks Daptomycin,MSSA isolated. Review of Systems 2 Review of Systems: Yes all other systems are reviewed and are negative [facility] Past Medical History Medical History Seizure disorder Chronic constipation Decubitus ulcer of sacral area Osteomyelitis Septic shock C. 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 Mother No problems noted. Family history: reviewed and not pertinent Surgical History Surgical History No pertinent past surgical history Social History Social History Household Members: Other Household Members Other:: SNF Housing: Correction Are you a primary day care aide to a significant other at home: No Do you presently have visiting nurse or other home services: No Unable to assess alcohol history related to: Unable to respond Alcohol intake: former Comment: patient sleeping Patient Tobacco Use Status: Tobacco use Unknown Second Hand Smoke Exposure: No Advance Directives Date on File: 07/25/21 service: No Current occupational status: disabled Meds Allergies Allergy/AdvReac Type Severity Reaction Status Date / Time No Known Allergies Allergy Verified 10/04/23 18:16 [No Known Allergies*] Active Medications: Current Medications Acetaminophen (Acetaminophen 325 Mg Tablet) 650 mg PO Q6H PRN PRN Reason: Pain, Mild (Pain Scale 1-3), fever or headache Calcium Carbonate (Calcium Carbonate 750 Mg Tab.Chew) 750 mg PO Q4H PRN PRN Reason: Heartburn Sodium Chloride (Ns) 1,000 mls @ 100 mls/hr IVCONT .Q10H REPLACED BY [facility] Last Admin: 10/05/23 15:26 Dose: 100 mls/hr Vancomycin HCl 750 mg/ Sodium (Chloride) 265 mls @ 265 mls/hr IV Q12H REPLACED BY [facility] Last Infusion: 10/05/23 16:38 Dose: Infused Cefepime HCl 2 gm/ Sodium (Chloride) 50 mls @ 100 mls/hr IV Q8H REPLACED BY [facility] Last Infusion: 10/05/23 22:15 Dose: Infused Magnesium Hydroxide (Milk Of Magnesia 30 Ml Oral.Susp) 30 ml PO DAILY PRN PRN Reason: Constipation Melatonin (Melatonin 3 Mg Tablet) 6 mg PO BEDTIME PRN PRN Reason: Insomnia Ondansetron HCl (Ondansetron Hcl 4 Mg/2 Ml Vial) 4 mg IVPUSH Q8H PRN PRN Reason: Nausea and Vomiting Pharmacy Consult (Consult Rx Vancomycin Dosing) 1 each MISCELLANE DAILY PRN PRN Reason: Consult order Sodium Chloride (0.9 % Sodium Chloride Flush 3 Ml Syringe) 3 ml IVFLUSH QSHIFT REPLACED BY [facility] Last Admin: 10/06/23 00:01 Dose: Not Given Home Medications ?Medication ?Instructions ?Recorded ?Confirmed ?Last Taken ?Type acetaminophen 325 mg tablet 650 mg PO Q4H PRN fever/pain 02/16/21 10/05/23 Unknown History bisacodyl 10 mg rectal suppository 10 mg MO DAILY PRN If no BM in 8 02/16/21 10/05/23 Unknown History hours after use of MoM calcium carbonate 600 mg-vitamin 1 tab PO BID 02/16/21 10/05/23 02/14/22 History D3 5 mcg (200 unit) tablet magnesium hydroxide 400 mg/5 mL 30 ml PO DAILY PRN No BM in 3 Days 02/16/21 10/05/23 Unknown History oral suspension (Milk of Magnesia) levetiracetam 100 mg/mL oral 2.5 ml PO BID 02/26/21 10/05/23 02/14/22 History solution atorvastatin 80 mg tablet 80 mg PO DAILY 01/26/22 10/05/23 02/14/22 History rivaroxaban 20 mg tablet (Xarelto) 20 mg PO DAILY 01/26/22 10/05/23 02/14/22 History magnesium citrate 150 ml PO DAILY PRN No BM in 12 hrs 02/15/22 10/05/23 Unknown History oxycodone 5 mg tablet 5 mg PO Q6H PRN Pain 02/15/22 10/05/23 Unknown History sodium phosphates 19 gram-7 118 ml MO DAILY PRN If no BM in 8 02/15/22 10/05/23 Unknown History gram/118 mL enema (Fleet Enema) hours after use of Bisacodyl acetaminophen 325 mg tablet 650 mg PO BEDTIME 10/03/22 10/05/23 Unknown History (Tylenol) acetic acid 0.25 % irrigation 50 ml irrigation [id number]@2100 10/03/22 10/05/23 Unknown History solution ferrous sulfate 325 mg (65 mg 325 mg PO DAILY 12/22/22 10/05/23 Unknown History iron) tablet potassium chloride 20 mEq oral 20 meq PO BID 12/22/22 10/05/23 Unknown History packet cefazolin 2 gram solution for 2 g IV TID 10/05/23 10/05/23 Unknown History injection Physical Exam 2 Vital Signs: Vital Signs: Last Vital Signs Temp 97.3 F 10/05/23 19:15 Pulse 80 10/05/23 19:15 Resp 18 10/05/23 19:15 BP 150/88 H 10/05/23 19:15 Pulse Ox 97 10/05/23 19:15 O2 Del Method Room Air 10/05/23 19:15 BMI result Body Mass Index 22.9 Neuro: Other: right hemiparesis,nonverbal Results Labs 10/05/23 05:54 10/05/23 07:14 Labs: Short CBC 10/05/23 Range/Units 05:54 WBC 5.1 (4.8-10.8) X10*3/uL Hgb 11.2 L (14.0-18.0) g/dl Hct 34.5 L (42.0-52.0) % Plt Count 146 L (160-400) X10*3/uL BMP 10/05/23 10/05/23 05:54 07:14 Sodium 147 H Potassium 3.2 L Chloride 125 H Carbon Dioxide 15 L BUN 35 H Creatinine 0.89 0.87 Calcium 8.5 Urine 08/13/24 Range/Units 00:42 Urine Color Yellow Urine Appearance Turbid Urine pH 6.0 (5.0-9.0) Ur Specific [place] 1.015 (1.005-1.025) Urine Protein 100 (2+) H (Neg-Trace) mg/dL Urine Glucose (UA) Negative (Negative) mg/dL Microbiology Microbiology Results: Microbiology 10/04/23 19:15 Blood - Venous Blood Culture - Preliminary No growth after 24 hours. 10/04/23 19:20 Blood - Venous Blood Culture - Preliminary No growth after 24 hours. Assessment and Plan (1) Osteomyelitis of sacrum: Status: Acute (2) Calculi, ureter: Status: Acute (3) Decubitus ulcer: Status: Acute Plan He has chronic OM,nothing acute seen at this time,treated 2021,MSSA,no need treat again. He has chronic pyuria and bacteriuria,no need to treat with antibiotics unless bacteremic or febrile or septic(is colonized). He had Cdiff 2021,avoid unneccesary antibiotics.
[2023-10-06] MEDS: 0.9 % Sodium Chloride 1,000 ML 100 ML IVCONT (01:13)
[2023-10-06 03:26] VITALS: BP 119/74; PULSE 60; RESP 16; TEMP 36.4; O2SAT 97
[2023-10-06] MEDS: vancomycin HCL 750 MG in 0.9 % Sodium Chloride 250 ML 265 MG IV (03:59)
[2023-10-06] MEDS: cefEPime HCl 2 GM in 0.9 % Sodium Chloride 50 ML IV (06:10)
[2023-10-06 07:52] VITALS: BP 135/58; PULSE 66; RESP 14; TEMP 36.6; O2SAT 96
--- NOTE | 2023-10-06 11:21 | P.DS_ITS ---
DS: Providers Provider Date of Service: 10/06/23 Date of admission: 10/05/23 00:31 Date of discharge: 10/06/23 Primary care physician: Lorraine Wiley MD Consults: 10/05/23 00:30 Consult to Infectious Diseases Routine Consulting Provider: [facility] Reason for consultation: osteomyelitis of sacrum Consult to Urology Routine Consulting Provider: [facility] Reason for consultation: staghorn calculus 10/05/23 09:40 Consult to Wound Care Routine Reason for consultation: Stage IV Sacrum DS: Diagnosis Discharge Diagnosis (1) Osteomyelitis of sacrum: Status: Acute (2) Calculi, ureter: Status: Acute (3) Decubitus ulcer: Status: Acute DS: Summary Hospital Course Hospital Course: 68-year-old male with pertinent history of vascular dementia (bed-bound and minimally verbal), history of CVA with right-sided hemiparesis, dysphagia, neurogenic bladder with recurrent UTI and suprapubic catheter, stage IV sacral decubitus ulcer, hypertension, hyperlipidemia, paroxysmal atrial fibrillation on anticoagulation who was sent to the emergency department for evaluation of UTI and blocked suprapubic catheter. Patient was diagnosed with UTI at outside facility and was given Ancef. Patient was noted to have blocked suprapubic catheter with change in color and odor of urine. Unable to obtain history from the patient. History obtained from ER provider and chart review. Unable to obtain review of systems. In the emergency department, suprapubic catheter was changed and patient was initiated on empiric IV antibiotics. Imaging with osteomyelitis of the sacrum and coccyx. Hospital course Patient was admitted to general medical floor and ordered cefepime and vancomycin. Consultation was placed to Infectious Disease: -chronic OM,nothing acute seen at this time,treated 2021,MSSA,no need treat again. -chronic pyuria and bacteriuria,no need to treat with antibiotics unless bacteremic or febrile or septic(is colonized). -had Cdiff 2021,avoid unneccesary antibiotics. Patient has had uneventful hospitalization had has remained afebrile. At this point in time at the recommendation of Infectious Disease he is medically acceptable for returned to long-term care and resume previous care;. Previous IV antibiotics at this time Time Attestation Discharge Coordination Time (in mins): 35 Quality: Safe Use of Opioids Does Pt have an Active Cancer Diagnosis on the Problem List?: No Quality: Stroke Does the patient have a stroke diagnosis?: No Physical Exam Vital Signs: Vital Signs: Last Vital Signs Temp 97.8 F 10/06/23 07:52 Pulse 66 10/06/23 07:52 Resp 14 10/06/23 07:52 BP 135/58 L 10/06/23 07:52 Pulse Ox 96 10/06/23 07:52 O2 Del Method Room Air 10/06/23 07:52 BMI result Body Mass Index 22.9 Const: Other: Awake nonverbal Resp: Other: Clear to auscultation bilaterally no rales rhonchi or wheezes Cardio: Other: No S4; positive S1-S2; no S3 murmurs rubs or gallops GI: Other: Soft nontender nondistended normoactive bowel sounds. Suprapubic site clean dry and intact Extrem: Other: No edema bilaterally DS: Data Data Completed and Pending Completed studies during hospitalization [Text1]: Procedures Drainage of Bladder with Drainage Device, Percutaneous Endoscopic Approach (06/23/21) Transfusion of Nonautologous Red Blood Cells into Peripheral Vein, Percutaneous Approach (12/23/22) Labs on day of discharge: Preliminary micro results at discharge 10/05/23 Unknown Urine Culture - Preliminary Urine Other - Suprapubic 10/04/23 19:15 Blood Culture - Preliminary Blood - Venous No growth after 24 hours. 10/04/23 19:20 Blood Culture - Preliminary Blood - Venous No growth after 24 hours. Discharge Plan Discharge Anticipated Discharge Date/Time: 10/06/23 11:13 Patient Disposition: er [facility] Discharge Diagnosis: Urinary colonization secondary to suprapubic line Referrals: [facility] [Outside] - 1 Week Lorraine Wiley MD [Primary Care Provider] - 1 Week Discharge Medications: Continued (DME) wet wipes See Rx Instructions .ROUTE .MEDSUPPLY Qty: 5 3RF Rx Instructions: As directed levetiracetam 100 mg/mL solution 2.5 ml PO BID acetaminophen 325 mg Tablet 650 mg PO Q4H PRN (Reason: fever/pain) calcium carbonate-vitamin D3 600 mg-5 mcg (200 unit) Tablet 1 tab PO BID magnesium hydroxide [Milk of Magnesia] 400 mg/5 mL Suspension 30 ml PO DAILY PRN (Reason: No BM in 3 Days) bisacodyl 10 mg Suppository 10 mg FL DAILY PRN (Reason: If no BM in 8 hours after use of MoM) Fleet Enema 19-7 gram/118 mL Enema 118 ml FL DAILY PRN (Reason: If no BM in 8 hours after use of Bisacodyl) magnesium citrate Solution 150 ml PO DAILY PRN (Reason: No BM in 12 hrs) oxycodone 5 mg Tablet 5 mg PO Q6H PRN (Reason: Pain) potassium chloride 20 mEq Packet 20 meq PO BID ferrous sulfate 325 mg (65 mg iron) Tablet 325 mg PO DAILY acetaminophen [Tylenol] 325 mg Tablet 650 mg PO BEDTIME acetic acid 0.25 % Solution 50 ml IRRIGATION TUTHSA@2100 Rx Instructions: for urinary catheter flush Metamucil Fiber Singles 3.4 gram Powder In Packet 3.4 g PO BEDTIME Qty: 30 0RF losartan 100 mg tablet 100 mg PO DAILY 90 Days Qty: 90 4RF Hold Instructions: Monitor BP at facility and restart if needed. gabapentin 300 mg capsule 300 mg PO BEDTIME 30 Days Qty: 30 0RF (DME) miscellaneous medical supply Misc See Rx Instructions .ROUTE .MEDSUPPLY Qty: 1 0RF Rx Instructions: RUE resting hand Splint/Sling As directed, Dx: G81.91, I67.89, duration 999 days/life time tamsulosin 0.4 mg capsule 0.4 mg PO BEDTIME 90 Days Qty: 90 1RF Xarelto 20 mg tablet 20 mg PO DAILY Hold Instructions: Resume on 12/25/22. atorvastatin 80 mg tablet 80 mg PO DAILY ascorbic acid (vitamin C) 1,000 mg tablet 1,000 mg PO DAILY 90 Days Qty: 90 1RF methenamine hippurate 1 gram tablet 1 g PO daily 90 Days Qty: 90 1RF Discontinued cefazolin 2 gram Recon Soln 2 g IV TID Rx Instructions: Start 10/04/23 for 7 days. Discharge Orders: Discharge Order (Routine); Ordered 10/06/23 Ordered By: Demetri De La Paz Diet: Advance to usual diet Activity on Discharge: As tolerated Stand Alone Forms: Patient Portal Discharge page Print Language: Frisian Care Plan Goals: Stop IV Kefzol as per ID. Resume all previous medications as taken prior to admission Health Concerns: Seen by ID; feels urine is colonized and osteo was chronic. No indication for ongoing antibiotics Plan of Treatment: Resume previous care plan as ordered Assessment: See discharge summary
--- NOTE | 2023-10-06 11:26 | MHC.CLN ---
F/U PATIENT WITH STAGE 4 AREA TO COCCYX/SACRUM. DIET=DIABETIC 1800 KCALS, GROUND CONSISTENCY. ADDING ENSURE MAX BID TO PROMOTE WOUND HEALING. FOLLOW FOR INTAKE AND SKIN INTEGRITY.
--- NOTE | 2023-10-06 12:24 | P.CNUR_ITS ---
History of Present Illness Consult details Consult date: 10/06/23 Narrative: CC: UTI in setting of suprapubic tube Patient known to Urology Minimally verbal, bed-bound, vascular dementia with right-sided hemiparesis and dysphagia. Stage IV sacral decubitus ulcers. Admit through emergency room for evaluation of UTI and blocked suprapubic catheter Blocked catheter has been changed. Antibiotics initiated. Receives ascetic acid irrigation Should maintain vitamin-C and methenamine for urine acidification May benefit from up sizing suprapubic tube from 18 Armenian to 20 Armenian Periodic UTIs will be part and parcel of all forms of bladder catheter drainage. Review of Systems 2 Constitutional: Constitutional: Reports as per HPI and Reports no additional constitutional complaints Cardiovascular: Cardiovascular: Reports as per HPI and Reports no additional cardiovascular complaints Respiratory: Respiratory: Reports as per HPI and Reports no additional respiratory complaints Gastrointestinal: Gastrointestinal: Reports as per HPI and Reports no additional gastrointestinal complaints Genitourinary: Genitourinary: Reports as per HPI Musculoskeletal: Musculoskeletal: Reports no additional musculoskeletal complaints and Reports as per HPI Neurologic: Reports system reviewed and no additional complaints, except as documented and Reports as per HPI PMF Past Medical History Medical History Seizure disorder Chronic constipation Decubitus ulcer of sacral area Osteomyelitis Septic shock C. 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 Mother No problems noted. Family history: reviewed and not pertinent Surgical History Surgical History No pertinent past surgical history Social History Social History Household Members: Other Household Members Other:: SNF Housing: Prison Are you a primary home care manager rn to a significant other at home: No Do you presently have visiting nurse or other home services: No Unable to assess alcohol history related to: Unable to respond Alcohol intake: former Comment: patient sleeping Patient Tobacco Use Status: Tobacco use Unknown Second Hand Smoke Exposure: No Advance Directives Date on File: 07/25/21 service: No Current occupational status: disabled Meds Allergies Allergy/AdvReac Type Severity Reaction Status Date / Time No Known Allergies Allergy Verified 10/04/23 18:16 [No Known Allergies*] Active Medications: Current Medications Acetaminophen (Acetaminophen 325 Mg Tablet) 650 mg PO Q6H PRN PRN Reason: Pain, Mild (Pain Scale 1-3), fever or headache Calcium Carbonate (Calcium Carbonate 750 Mg Tab.Chew) 750 mg PO Q4H PRN PRN Reason: Heartburn Sodium Chloride (Ns) 1,000 mls @ 100 mls/hr IVCONT .Q10H [facility] Last Infusion: 10/06/23 11:45 Dose: Infused Vancomycin HCl 750 mg/ Sodium (Chloride) 265 mls @ 265 mls/hr IV Q12H [facility] Last Infusion: 10/06/23 05:12 Dose: Infused Cefepime HCl 2 gm/ Sodium (Chloride) 50 mls @ 100 mls/hr IV Q8H [facility] Last Infusion: 10/06/23 06:58 Dose: Infused Magnesium Hydroxide (Milk Of Magnesia 30 Ml Oral.Susp) 30 ml PO DAILY PRN PRN Reason: Constipation Melatonin (Melatonin 3 Mg Tablet) 6 mg PO BEDTIME PRN PRN Reason: Insomnia Ondansetron HCl (Ondansetron Hcl 4 Mg/2 Ml Vial) 4 mg IVPUSH Q8H PRN PRN Reason: Nausea and Vomiting Pharmacy Consult (Consult Rx Vancomycin Dosing) 1 each MISCELLANE DAILY PRN PRN Reason: Consult order Sodium Chloride (0.9 % Sodium Chloride Flush 3 Ml Syringe) 3 ml IVFLUSH QSHIFT [facility] Last Admin: 10/06/23 07:41 Dose: Not Given Home Medications ?Medication ?Instructions ?Recorded ?Confirmed ?Last Taken ?Type acetaminophen 325 mg tablet 650 mg PO Q4H PRN fever/pain 02/16/21 10/05/23 Unknown History bisacodyl 10 mg rectal suppository 10 mg MT DAILY PRN If no BM in 8 02/16/21 10/05/23 Unknown History hours after use of MoM calcium carbonate 600 mg-vitamin 1 tab PO BID 02/16/21 10/05/23 02/14/22 History D3 5 mcg (200 unit) tablet magnesium hydroxide 400 mg/5 mL 30 ml PO DAILY PRN No BM in 3 Days 02/16/21 10/05/23 Unknown History oral suspension (Milk of Magnesia) levetiracetam 100 mg/mL oral 2.5 ml PO BID 02/26/21 10/05/23 02/14/22 History solution atorvastatin 80 mg tablet 80 mg PO DAILY 01/26/22 10/05/23 02/14/22 History rivaroxaban 20 mg tablet (Xarelto) 20 mg PO DAILY 01/26/22 10/05/23 02/14/22 History magnesium citrate 150 ml PO DAILY PRN No BM in 12 hrs 02/15/22 10/05/23 Unknown History oxycodone 5 mg tablet 5 mg PO Q6H PRN Pain 02/15/22 10/05/23 Unknown History sodium phosphates 19 gram-7 118 ml MT DAILY PRN If no BM in 8 02/15/22 10/05/23 Unknown History gram/118 mL enema (Fleet Enema) hours after use of Bisacodyl acetaminophen 325 mg tablet 650 mg PO BEDTIME 10/03/22 10/05/23 Unknown History (Tylenol) acetic acid 0.25 % irrigation 50 ml irrigation TUTHSA@2100 10/03/22 10/05/23 Unknown History solution ferrous sulfate 325 mg (65 mg 325 mg PO DAILY 12/22/22 10/05/23 Unknown History iron) tablet potassium chloride 20 mEq oral 20 meq PO BID 12/22/22 10/05/23 Unknown History packet Physical Exam 2 Vital Signs: Vital Signs: Last Vital Signs Temp 97.8 F 10/06/23 07:52 Pulse 66 10/06/23 07:52 Resp 14 10/06/23 07:52 BP 135/58 L 10/06/23 07:52 Pulse Ox 96 10/06/23 07:52 O2 Del Method Room Air 10/06/23 07:52 BMI result Body Mass Index 22.9 Const: General: cooperative, healthy appearing, comfortable and no acute distress Orientation/consciousness: patient oriented x3 HEENT: Face and sinus: Yes normal facial exam Mouth: moist mucous membranes Neck: Neck: Yes normal visual inspection, Yes full ROM and Yes trachea midline Chest: Chest palpation & inspection: normal inspection of the chest Resp: Effort & Inspection: normal respiratory effort, able to speak in complete sentences and no respiratory distress GI: Inspection: Yes normal to inspection Back/Spine/Pelvis: Cervical Spine: normal cervical lordosis Thoracic/Lumbar Spine: thoracic and lumbar spine normal to inspection Skin: General skin exam: no rashes or lesions noted Neuro: General: patient oriented x3, tone normal and moves all extremities Extrem: General: Yes normal to inspection and Yes capillary refill normal Results Labs 10/05/23 05:54 10/05/23 07:14 Labs: Urine 10/05/23 Range/Units 00:42 Urine Color Yellow Urine Appearance Turbid Urine pH 6.0 (5.0-9.0) Ur Specific [place] 1.015 (1.005-1.025) Urine Protein 100 (2+) H (Neg-Trace) mg/dL Urine Glucose (UA) Negative (Negative) mg/dL All other labs normal. Assessment and Plan (1) Complicated UTI (urinary tract infection): Status: Acute Plan Upsize catheter 20 Armenian Procedures Date of Service Date of Service: 10/06/23
--- NOTE | 2023-10-06 12:57 | MHC.CM.PN ---
Pt is medically cleared for discharge back to [facility] today via BLS/Tristian. Pts son/HCP Al was called and notified.
== END 2023-10-06 14:07 | DRG 699 ==
LOC: HO.ED 21:27 → HO.EDOVER 10-05 00:36 → HO.S3 10-05 07:40
PROVIDERS: Emergency Medicine; Admitting Provider Student in an Organized Health Care Education/Training Program; Emergency Provider Emergency Medicine; PCP Internal Medicine; Visit Provider Hospitalist
DX: T83.098A Other mechanical complication of other urinary catheter, initial encounter (principal); I69.351 Hemiplegia and hemiparesis following cerebral infarction affecting right dominant side; M46.28 Osteomyelitis of vertebra, sacral and sacrococcygeal region; N13.2 Hydronephrosis with renal and ureteral calculous obstruction; E87.6 Hypokalemia; I48.0 Paroxysmal atrial fibrillation; E86.0 Dehydration; N31.9 Neuromuscular dysfunction of bladder, unspecified; I69.391 Dysphagia following cerebral infarction; L89.150 Pressure ulcer of sacral region, unstageable; F01.50 Vascular dementia, unspecified severity, without behavioral disturbance, psychotic disturbance, mood disturbance, and anxiety; Z74.01 Bed confinement status; Z79.01 Long term (current) use of anticoagulants; Z79.899 Other long term (current) drug therapy
CPT/HCPCS: 36415; 74176; 80048; 80076; 81001; 82565; 83605; 83690; 83735; 85025; 86140; 87040; 87086; 92610; 97165; 99285; C1758; J0692; J0696; J3370; J3480

== ENCOUNTER → 2023-10-05 00:31 | Outpatient (BNV) | payer OTHER, SELFPAY | PROVIDERS: Admitting Provider Student in an Organized Health Care Education/Training Program; Emergency Provider Emergency Medicine; PCP Internal Medicine; Visit Provider Student in an Organized Health Care Education/Training Program | DX: M46.28 Osteomyelitis of vertebra, sacral and sacrococcygeal region (principal); N20.1 Calculus of ureter; L89.90 Pressure ulcer of unspecified site, unspecified stage; N31.8 Other neuromuscular dysfunction of bladder | CPT/HCPCS: 99223; 99239; 99499 ==

== ENCOUNTER → 2023-10-05 00:31 | Outpatient (BNV) | payer OTHER, SELFPAY | PROVIDERS: Admitting Provider Student in an Organized Health Care Education/Training Program; Emergency Provider Emergency Medicine; PCP Internal Medicine; Visit Provider Internal Medicine | DX: M46.28 Osteomyelitis of vertebra, sacral and sacrococcygeal region (principal); N20.1 Calculus of ureter; L89.90 Pressure ulcer of unspecified site, unspecified stage | CPT/HCPCS: 99222 ==

== ENCOUNTER → 2023-10-05 00:31 | Outpatient (BNV) | payer OTHER, SELFPAY | PROVIDERS: Admitting Provider Student in an Organized Health Care Education/Training Program; Emergency Provider Emergency Medicine; PCP Internal Medicine; Visit Provider Urology | DX: N39.0 Urinary tract infection, site not specified (principal) | CPT/HCPCS: 99222 ==

== ENCOUNTER 2024-01-18 05:27 | Inpatient (IN) | payer OTHER, SELFPAY ==
[2024-01-18] VITALS (7 sets, daily range): BP systolic 121–155; BP diastolic 60–86; PULSE 53–82; RESP 12–18; TEMP 36.3–36.8; O2SAT 97–99; BMI 23.1
--- NOTE | ~2024-01-18 | CT_ITS ---
EXAMINATION: CT ABDOMEN AND PELVIS WITHOUT CONTRAST CLINICAL INFORMATION: S cath placed at [facility] bleeding pain no urine COMPARISON: CT scans dating between October 04, 2023 and June 25, 2021. TECHNIQUE: Multidetector volumetric imaging was performed from the superior aspect of the liver through the pubic symphysis. Sagittal and coronal reformatted images were obtained on the technologist's workstation. This CT examination was performed using dose optimization techniques as appropriate, variously including the following: *Automated exposure control *Adjustment of mA and/or kV according to patient size (this includes techniques or standardized protocols for targeted exams where dose is matched to indication/reason for exam; i.e. extremities or head) *Use of iterative reconstruction technique DLP: Image 25 mGy-cm FINDINGS: LUNG BASES: Limited by motion. Mild bibasilar interstitial prominence. Mild bibasilar dependent atelectasis. No pleural effusion identified. Heart normal in size. Moderate coronary arterial calcification. No pericardial effusion. LIVER, GALLBLADDER, AND BILIARY TREE: The liver appears unremarkable in size, shape, and attenuation. No focal hepatic lesion or biliary ductal dilatation is appreciated. Unremarkable appearance of the gallbladder. PANCREAS: Unremarkable SPLEEN: Unremarkable ADRENAL GLANDS: Unremarkable KIDNEYS AND URETERS: At least two, 0.8 cm or less right ureteral stones. Large left renal pelvic stones extending into the proximal ureter, each measuring up to approximately 3.7 cm in length. Multiple approximately 0.7 cm or less renal collecting system stones. Mild right hydronephrosis with associated induration of fat surrounding the right renal collecting system and proximal ureter. At least two, 0.6 cm or less, nonobstructing left renal collecting system stones. No evidence of hydronephrosis or hydroureter on the left. The kidneys appear unremarkable in size, shape, and attenuation. BLADDER: Tip of the suprapubic tube lies within the urinary bladder lumen. Diffuse thickening of the wall the urinary bladder. Question mild induration of surrounding fat. GASTROINTESTINAL TRACT: Distended loops of colon extending to the rectum and measuring up to approximately 11 cm in diameter, similar compared with October 04, 2023. PERITONEAL CAVITY: No evidence of free intraperitoneal air or fluid. ABDOMINAL WALL: Induration of the gluteal soft tissues extending to the ischia bilaterally. No abscess identified. No periosteal reaction or acute erosion identified, likely representing chronic decubital changes. Left inguinal hernia measuring approximately 8 cm in length by 3 cm in diameter and containing only fat. Right inguinal hernia measuring approximately 5 cm in length by 1 cm in diameter, also containing only fat. LYMPH NODES: No evidence of adenopathy by size criteria. VASCULAR: Borderline mild fusiform aneurysmal dilation of the ascending thoracic aorta measuring approximately 4.1 cm in diameter. PELVIC VISCERA: Unremarkable OSSEOUS STRUCTURES: Decreased bone mineral density. Mild degenerative changes of the spine and hips. CT/CT abdomen pelvis wo IV con IMPRESSION: At least two, 0.8 cm or less right ureteral stones. Large left renal pelvic stones extending into the proximal ureter, each measuring up to approximately 3.7 cm in length. Multiple approximately 0.7 cm or less renal collecting system stones. Mild right hydronephrosis with associated induration of fat surrounding the right renal collecting system and proximal ureter. At least two, 0.6 cm or less, nonobstructing left renal collecting system stones. No evidence of hydronephrosis or hydroureter on the left. Tip of the suprapubic tube lies within the urinary bladder lumen. Diffuse thickening of the wall the urinary bladder. Question mild induration of surrounding fat, raising the possibility of cystitis, equivocal. Distended loops of colon extending to the rectum and measuring up to approximately 11 cm in diameter, similar compared with October 04, 2023. Findings more likely represent ileus rather than rectal obstruction. Multiple additional findings as above. Please see above. Electronically signed by: Donald Asif MD 01/18/2024 09:02 AM [facility]
--- NOTE | ~2024-01-18 | XR_ITS ---
EXAMINATION: XR ABDOMEN KUB CLINICAL INDICATION: Follow up ileus. COMPARISON: Multiple priors, most recent CT abdomen/pelvis dated 01/18/2024. TECHNIQUE: AP views of the abdomen. FINDINGS: Significant dilatation of the colon with air and stool is redemonstrated, similar when compared to the prior examination. Findings are favored to represent ileus. No abnormal soft tissue calcification. No acute osseous abnormality. XR/XR KUB IMPRESSION: Significant dilatation of the colon with air and stool, similar when compared to the prior examination. Findings are favored to represent ileus. Electronically signed by: Cam Darling MD 01/20/2024 08:23 AM [facility]
--- NOTE | 2024-01-18 05:58 | PC.NURSE ---
Addendum entered by Irene Xiong RN 01/18/24 06:10: Pt was brought in by EMS [facility], Original Note: Pt is a 68 y/o male who comes in via EMS for evaluation of a catheter problem. Per EMS report, staff at sending facility attempted to change the pts suprapubic catheter and was unable to remove it. Inflation and deflation of the finley balloon was attempted and still no success with ability to remove. ? catheter change everyday. Pt also hasn't produced any urine in approximately 8 hours. Pt is non-verbal at baseline, Yakut speaking.
--- NOTE | 2024-01-18 06:01 | ED.GENADULT ---
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 Catheter was replaced they cannot get it to drain and so finally RNs sent him here from SNF. Patient states ow when you touch his abdomen. He has blood at the site. No other history provided. No records sent with patient MD complaint: catheter issue Onset (ago): hour(s) (8) Location: abdomen Radiation: non-radiation Severity: mild Pain Consistency: intermittent Relieving factors: none Exacerbating factors: other (touching abdomen and moving finley catheter) Associated symptoms: denies other symptoms Treatments prior to arrival: other (replaced catheter ) Related Data Home Medications ?Medication ?Instructions ?Recorded ?Confirmed acetaminophen 325 mg tablet 650 mg PO Q4H PRN fever/pain 02/16/21 10/05/23 bisacodyl 10 mg rectal suppository 10 mg RI DAILY PRN If no BM in 8 02/16/21 10/05/23 hours after use of MoM calcium 600 mg (as 1 tab PO BID 02/16/21 10/05/23 carbonate)-vitamin D3 5 mcg (200 unit) tablet magnesium hydroxide 400 mg/5 mL 30 ml PO DAILY PRN No BM in 3 Days 02/16/21 10/05/23 oral suspension (Milk of Magnesia) levetiracetam 100 mg/mL oral 2.5 ml PO BID 02/26/21 10/05/23 solution atorvastatin 80 mg tablet 80 mg PO DAILY 01/26/22 10/05/23 rivaroxaban 20 mg tablet (Xarelto) 20 mg PO DAILY 01/26/22 10/05/23 magnesium citrate 150 ml PO DAILY PRN No BM in 12 hrs 02/15/22 10/05/23 oxycodone 5 mg tablet 5 mg PO Q6H PRN Pain 12/25/22 08/13/24 sodium phosphates 19 gram-7 118 ml RI DAILY PRN If no BM in 8 02/15/22 10/05/23 gram/118 mL enema (Fleet Enema) hours after use of Bisacodyl acetaminophen 325 mg tablet 650 mg PO BEDTIME 10/03/22 10/05/23 (Tylenol) acetic acid 0.25 % irrigation 50 ml irrigation TUTHSA@2100 10/03/22 10/05/23 solution ferrous sulfate 325 mg (65 mg 325 mg PO DAILY 12/22/22 10/05/23 iron) tablet potassium chloride 20 mEq oral 20 meq PO BID 12/22/22 10/05/23 packet Previous Rx's ?Medication ?Instructions ?Recorded losartan 100 mg tablet 100 mg PO DAILY 90 days #90 tabs 02/07/20 wet wipes #5 multiple units 03/12/20 tamsulosin 0.4 mg capsule 0.4 mg PO BEDTIME 90 days #90 caps 03/22/20 gabapentin 300 mg capsule 300 mg PO BEDTIME 30 days #30 caps 03/27/20 miscellaneous medical supply #1 ea 03/27/20 ascorbic acid (vitamin C) 1,000 mg 1,000 mg PO DAILY 90 days #90 tabs 01/27/22 tablet methenamine hippurate 1 gram tablet 1 g PO daily 90 days #90 tabs 01/27/22 psyllium husk (aspartame) 3.4 gram 3.4 g PO BEDTIME #30 ea 10/06/22 oral powder packet (Metamucil Fiber Singles) Allergies Allergy/AdvReac Type Severity Reaction Status Date / Time No Known Allergies Allergy Verified 01/18/24 05:53 [No Known Allergies*] Review of Systems Review of Systems: ROS unable to be obtained due to vascular dementia [facility] Past Medical History Source: old records reviewed Medical History Osteomyelitis of sacrum Calculi, ureter Decubitus ulcer Acute UTI Seizure disorder Chronic constipation Decubitus ulcer of sacral area Osteomyelitis Septic shock C. 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 Mother No problems noted. Social History Social History Household Members: Other Household Members Other:: SNF Housing: [facility] Are you a primary healthcare customer service to a significant other at home: No Do you presently have visiting nurse or other home services: No Unable to assess alcohol history related to: Unable to respond Alcohol intake: former Comment: patient sleeping Patient Tobacco Use Status: Tobacco use Unknown Second Hand Smoke Exposure: No Advance Directives: Yes Advance Directives on File: Yes Advance Directives Date on File: 07/25/21 service: No Current occupational status: disabled Physical Exam ED Vital Signs: Vital Signs - 24 hr 01/18/24 05:33 Temperature 97.7 F Pulse Rate 53 Respiratory Rate 16 Blood Pressure 127/62 Pulse Oximetry 98 Oxygen Delivery Method Room Air BMI result Body Mass Index 23.1 Appearance: Alert. tracks with eyes, very short yes or no answers No acute distress. Eyes: Pupils equal, round and reactive to light. ENT: Pharynx normal. Neck: Normal inspection. Neck supple. CVS: Normal heart rate and rhythm. Pulses normal. Respiratory: No respiratory distress. Breath sounds normal. Abdomen: Distended on abdomen - suprapubic blood at catheter site, ss fluid out of catheter but you cannot aspirate urine, balloon is empty, catehter left open and curled on itself, did touch the catheter to see if it felt there was an end and the catheter feels like it is touching something. Catheter does not flush Skin: Skin warm and dry. Normal skin color. Extremities: No lower extremity edema. Neuro: one word yes but not consistent, R sided hemiparesis Course Course Course Narrative: signed out to Dr. 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 Differential Diagnosis Differential Diagnoses: The differential diagnosis associated with the presentation includes clot, retention, misplaced catheter Admission/Observation Consideration of admission/observation: Escalation of care including admission/observation considered Lab Data [facility] Lab Attestation statement: I reviewed the patient's lab results. 01/18/24 06:34 01/18/24 06:34 Labs: Lab Results 01/18/24 Range/Units 06:34 WBC 6.6 (4.8-10.8) X10*3/uL RBC 3.95 L (4.60-5.80) X10*6/uL Hgb 12.7 L (14.0-18.0) g/dl Hct 37.9 L (42.0-52.0) % MCV 95.9 (80.0-98.0) fL MCH 32.2 (27.0-33.0) pg MCHC 33.5 (31.0-36.0) g/dl RDW 14.0 (11.0-16.0) % Plt Count 163 (160-400) X10*3/uL MPV 9.4 (9.4-12.4) fL Immature Gran % (Auto) 0.3 (0.0-0.4) % Neut % (Auto) 46.1 (45-73) % Lymph % (Auto) 32.5 (20-40) % [place] % (Auto) 15.2 H (2-11) % Eos % (Auto) 5.3 H (0-4) % Baso % (Auto) 0.6 (0-2) % Lymph # (Auto) 2.1 (1.2-4.9) X10*3/uL [place] # (Auto) 1.0 (0.1-1.2) X10*3/uL Eos # (Auto) 0.4 (0.0-0.4) X10*3/uL Baso # (Auto) 0.0 (0.0-0.2) X10*3/uL Abs Immat Gran (auto) 0.02 (0.00-0.03) X10*3/uL Absolute Neuts (auto) 3.0 (2.0-8.3) x10*3/uL Absolute Nucleated RBC 0.000 (0.0-0.012) X10*3/uL Nucleated RBC % (auto) 0.0 (0.0-0.2) /100WBC Independent Interpretation I performed an independent interpretation of an: CT Scan Independent Historian Clinical information obtained from an independent historian. History obtained from or confirmed by: EMS External Record Review External record reviewed: Inpatient record and Outpatient record Discharge Plan Discharge Clinical Impression: Mechanical complication of suprapubic catheter Qualifiers: Encounter type: initial encounter Qualified Code(s): T83.090A - Other mechanical complication of cystostomy catheter, initial encounter Patient Disposition: Still a Patient Prescriptions: No Action (DME) wet wipes See Rx Instructions .ROUTE .MEDSUPPLY Qty: 5 3RF Rx Instructions: As directed levetiracetam 100 mg/mL solution 2.5 ml PO BID acetaminophen 325 mg Tablet 650 mg PO Q4H PRN (Reason: fever/pain) calcium carbonate-vitamin D3 600 mg-5 mcg (200 unit) Tablet 1 tab PO BID magnesium hydroxide [Milk of Magnesia] 400 mg/5 mL Suspension 30 ml PO DAILY PRN (Reason: No BM in 3 Days) bisacodyl 10 mg Suppository 10 mg RI DAILY PRN (Reason: If no BM in 8 hours after use of MoM) Fleet Enema 19-7 gram/118 mL Enema 118 ml RI DAILY PRN (Reason: If no BM in 8 hours after use of Bisacodyl) magnesium citrate Solution 150 ml PO DAILY PRN (Reason: No BM in 12 hrs) oxycodone 5 mg Tablet 5 mg PO Q6H PRN (Reason: Pain) potassium chloride 20 mEq Packet 20 meq PO BID ferrous sulfate 325 mg (65 mg iron) Tablet 325 mg PO DAILY acetaminophen [Tylenol] 325 mg Tablet 650 mg PO BEDTIME acetic acid 0.25 % Solution 50 ml IRRIGATION TUTHSA@2100 Rx Instructions: for urinary catheter flush Metamucil Fiber Singles 3.4 gram Powder In Packet 3.4 g PO BEDTIME Qty: 30 0RF losartan 100 mg tablet 100 mg PO DAILY 90 Days Qty: 90 4RF gabapentin 300 mg capsule 300 mg PO BEDTIME 30 Days Qty: 30 0RF (DME) miscellaneous medical supply Misc See Rx Instructions .ROUTE .MEDSUPPLY Qty: 1 0RF Rx Instructions: RUE resting hand Splint/Sling As directed, Dx: G81.91, I67.89, duration 999 days/life time tamsulosin 0.4 mg capsule 0.4 mg PO BEDTIME 90 Days Qty: 90 1RF Xarelto 20 mg tablet 20 mg PO DAILY atorvastatin 80 mg tablet 80 mg PO DAILY ascorbic acid (vitamin C) 1,000 mg tablet 1,000 mg PO DAILY 90 Days Qty: 90 1RF methenamine hippurate 1 gram tablet 1 g PO daily 90 Days Qty: 90 1RF Print Language: [place] Citizen
--- NOTE | 2024-01-18 06:22 | PC.NURSE ---
Spoke to Tasneem at sending facility briefly before being disconnected. Pt only had a 50 ml output on [id number] shift and then on the [id number] shift there was no output. Staff reports no recent fevers, trauma, issues, or antibiotic use. Per staff, catheter is changed on a PRN basis.
[2024-01-18 06:39] LABS: MANUAL DIFF FLAG NO
[2024-01-18 06:44] LABS: Basophils Percent Auto 0.6 % (0-2); Eosinophils Absolute Auto 0.4 X10*3/uL (0.0-0.4); Eosinophils Percent Auto 5.3 % (0-4); Hematocrit 37.9 % (42.0-52.0); Hemoglobin 12.7 g/dl (14.0-18.0); Imm Gran Abs Auto 0.02 X10*3/uL (0.00-0.03); Imm Gran Pct Auto 0.3 % (0.0-0.4); Lymphocytes Absolute Auto 2.1 X10*3/uL (1.2-4.9); Lymphocytes Percent Auto 32.5 % (20-40); Mean Corpuscular HGB Conc 33.5 g/dl (31.0-36.0); Mean Corpuscular Hemoglobin 32.2 pg (27.0-33.0); Mean Corpuscular Volume 95.9 fL (80.0-98.0); Mean Platelet Volume 9.4 fL (9.4-12.4); Monocytes Percent Auto 15.2 % (2-11); Neutrophils Percent Auto 46.1 % (45-73); Platelet Count 163 X10*3/uL (160-400); Red Blood Count 3.95 X10*6/uL (4.60-5.80); White Blood Count 6.6 X10*3/uL (4.8-10.8)
[2024-01-18 07:07] LABS: Alanine Aminotransferase 18 U/L (0-40); Albumin Level 2.7 g/dL (3.5-5.0); Alkaline Phosphatase 100 U/L (39-117); Anion Gap 10 (12-20); Aspartate Amino Transferase 24 U/L (5-37); Bilirubin Direct 0.2 mg/dL (0.0-0.5); Bilirubin Total 0.5 mg/dL (0.0-1.0); Blood Urea Nitrogen 31 mg/dL (9-16); Calcium 8.9 mg/dL (8.4-10.2); Carbon Dioxide 18 mmol/L (22-29); Chloride 112 mmol/L (96-108); Creatinine Clr Calc Pharmacy 81.3; Estimated Glomerular Filt Rate > 60; Glucose Random 106 mg/dL (60-115); Potassium 3.6 mmol/L (3.3-5.1); Sodium 136 mmol/L (135-145); Total Protein 6.2 g/dL (6.5-8.0)
[2024-01-18 07:40] LABS: INTERNATIONAL NORM RATIO 2.8 (0.9-1.1); Prothrombin Time 32.5 SEC (10.9-12.4)
--- NOTE | 2024-01-18 08:38 | PC.NURSE ---
Resumed care of pt at 0700. This RN and tech at bedside, pt soiled with red urine. Pt washed up, MD Hoang called to bedside to assess suprapubic catheter with this RN. Per SNF staff/night RN, pt suprapubic catheter unable to be removed/flushed. at bedside for removal/change of suprapubic cath with good effect. 16fr suprapubic catheter placed, draining pink/red urine, 100ml drained. Urine sample obtained and sent to lab, pending results at this time. 22g IV placed in right wrist. Pt a/ox1, respirations even and unlabored, no increased wob/sob noted, s1 and s2 heard, sinus alessandro on cardiac monitor technician, HR- 50s, abdomen tender on palpation, lower abdomen distended. Call giraldo within reach, all needs met at this time.
[2024-01-18 08:56] LABS: Appearance Urine Turbid; Color Urine Red; Glucose Urine UA Negative (Negative); Leukocyte Esterase Urine Large (3+) (Negative); Nitrite Urine Positive (Negative); Specific Gravity - Urine 1.015 (1.005-1.025); UMIC TRIGGER UACC YES; Urine Blood Large (3+) (Negative); Urine Ketones Negative (Negative); Urine Protein 300 (3+) mg/dL (Neg-Trace)
[2024-01-18 09:03] LABS: Bacteria Urine 4+ (None Seen); Hyaline Casts Urine >20 /LPF (0-2); RBC Urine >20 /HPF (0-2); Squamous Epithelial Cell Urine 0-2 /HPF (0-2); UACC Culture Trigger YES; WBC Urine >50 /HPF (0-5)
--- NOTE | 2024-01-18 10:27 | PC.NURSE ---
Abx administration delayed d/t pt hard draw, attempting to obtain blood cultures.
[2024-01-18 10:38] LABS: Lactic Acid 2.2 mmol/L (0.5-2.0)
[2024-01-18] MEDS: cefTRIAXone sodium 1 GM VIAL IVPUSH (10:40)
[2024-01-18 12:17] LABS: Reflex Lactate? Lactic Acid Added
--- NOTE | 2024-01-18 12:41 | PC.NURSE ---
Pt repositioned to right side, call giraldo within reach, all needs met at this time.
[2024-01-18 13:16] LABS: ~Lactic Acid-LAB USE ONLY 1.3 mmol/L (0.5-2.0)
--- NOTE | 2024-01-18 13:24 | HO.ANESPROP2 ---
HPI - Anesthesia Eval Consult details Narrative: for cysto stent PMFSH Active Problems Active Problems: All Active Problems Mechanical complication of suprapubic catheter (Acute) Kidney calculi (Acute) Acute UTI (Acute) Stage III pressure ulcer (Acute) Complicated urinary tract infection (Acute) Osteomyelitis (Acute) Urinary retention with incomplete bladder emptying (Acute) UTI (urinary tract infection) due to urinary indwelling Walker catheter (Acute) Acute UTI (Acute) C. 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 (Acute) Dysarthria due to acute cerebellar cerebrovascular accident (CVA) (Acute) Dyslipidemia (Acute) Urine incontinence (Acute) Stage I pressure ulcer of buttock (Acute) Dysphagia (Acute) Wheelchair bound (Acute) Stage II pressure ulcer of buttock (Acute) Right arm pain (Acute) Right leg pain (Acute) COVID-19 (Acute) HTN (hypertension) (Acute) Hypernatremia (Acute) COVID-19 (Acute) VI (acute kidney injury) (Acute) Pressure ulcer of sacral region, stage 2 (Acute) Decubitus ulcer of both heels, stage 1 (Acute) Past Medical History Medical History Osteomyelitis of sacrum Calculi, ureter Decubitus ulcer Acute UTI Seizure disorder Chronic constipation Decubitus ulcer of sacral area Osteomyelitis Septic shock C. 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 Mother No problems noted. Family history of problems with anesthesia: No Surgical History Surgical History No pertinent past surgical history History of Problems with Anesthesia: No Social History Social History Household Members: Other Household Members Other:: SNF Housing: [facility] Are you a primary healthcare economics manager to a significant other at home: No Do you presently have visiting nurse or other home services: No Unable to assess alcohol history related to: Unable to respond Alcohol intake: former Comment: patient sleeping Patient Tobacco Use Status: Tobacco use Unknown Smoked in Last 30 Days: No Second Hand Smoke Exposure: No Use of substances other than those prescribed or required for medical reasons: No Advance Directives: Yes Advance Directives on File: Yes Advance Directives Date on File: 07/25/21 service: No Current occupational status: disabled Meds Allergies Allergy/AdvReac Type Severity Reaction Status Date / Time No Known Allergies Allergy Verified 01/18/24 05:53 [No Known Allergies*] Home Medications ?Medication ?Instructions ?Recorded ?Confirmed ?Last Taken ?Type acetaminophen 325 mg tablet 650 mg PO Q4H PRN fever/pain 02/16/21 10/05/23 Unknown History bisacodyl 10 mg rectal suppository 10 mg HI DAILY PRN If no BM in 8 02/16/21 10/05/23 Unknown History hours after use of MoM calcium 600 mg (as 1 tab PO BID 02/16/21 10/05/23 02/14/22 History carbonate)-vitamin D3 5 mcg (200 unit) tablet magnesium hydroxide 400 mg/5 mL 30 ml PO DAILY PRN No BM in 3 Days 02/16/21 10/05/23 Unknown History oral suspension (Milk of Magnesia) levetiracetam 100 mg/mL oral 2.5 ml PO BID 02/26/21 10/05/23 02/14/22 History solution atorvastatin 80 mg tablet 80 mg PO DAILY 01/26/22 10/05/23 02/14/22 History rivaroxaban 20 mg tablet (Xarelto) 20 mg PO DAILY 01/26/22 10/05/23 02/14/22 History magnesium citrate 150 ml PO DAILY PRN No BM in 12 hrs 02/15/22 10/05/23 Unknown History oxycodone 5 mg tablet 5 mg PO Q6H PRN Pain 02/15/22 10/05/23 Unknown History sodium phosphates 19 gram-7 118 ml HI DAILY PRN If no BM in 8 02/15/22 10/05/23 Unknown History gram/118 mL enema (Fleet Enema) hours after use of Bisacodyl acetaminophen 325 mg tablet 650 mg PO BEDTIME 10/03/22 10/05/23 Unknown History (Tylenol) acetic acid 0.25 % irrigation 50 ml irrigation TUTHSA@2100 10/03/22 10/05/23 Unknown History solution ferrous sulfate 325 mg (65 mg 325 mg PO DAILY 12/22/22 10/05/23 Unknown History iron) tablet potassium chloride 20 mEq oral 20 meq PO BID 12/22/22 10/05/23 Unknown History packet Exam Height,Weight and Vital Signs: Height 6 ft 2 in Weight 81.647 kg Last Vital Signs Temp 98.0 F 01/18/24 10:53 Pulse 59 01/18/24 10:53 Resp 12 01/18/24 10:53 BP 122/71 01/18/24 10:53 Pulse Ox 97 01/18/24 10:53 O2 Del Method Room Air 01/18/24 10:53 Pertinent Lab Results Pertinent Lab Results: Laboratory Tests 01/18/24 01/18/24 01/18/24 06:34 07:27 08:35 WBC 6.6 RBC 3.95 L Hgb 12.7 L Hct 37.9 L MCV 95.9 MCH 32.2 MCHC 33.5 RDW 14.0 Plt Count 163 MPV 9.4 Immature Gran % (Auto) 0.3 Neut % (Auto) 46.1 Lymph % (Auto) 32.5 [place] % (Auto) 15.2 H Eos % (Auto) 5.3 H Baso % (Auto) 0.6 Lymph # (Auto) 2.1 [place] # (Auto) 1.0 Eos # (Auto) 0.4 Baso # (Auto) 0.0 Abs Immat Gran (auto) 0.02 Absolute Neuts (auto) 3.0 Absolute Nucleated RBC 0.000 Nucleated RBC % (auto) 0.0 PT 32.5 H INR 2.8 H Sodium 136 Potassium 3.6 Chloride 112 H Carbon Dioxide 18 L Anion Gap 10 L BUN 31 H Creatinine 0.99 Estim Creat Clear Calc 81.3 Estimated GFR > 60 Random Glucose 106 Lactic Acid Lactic Acid F/U @ 2Hr Calcium 8.9 Total Bilirubin 0.5 Direct Bilirubin 0.2 AST 24 ALT 18 Alkaline Phosphatase 100 Total Protein 6.2 L Albumin 2.7 L Urine Color Red A Urine Appearance Turbid Urine pH 7.0 Ur Specific [place] 1.015 Urine Protein 300 (3+) H Urine Glucose (UA) Negative Urine Ketones Negative Urine Blood Large (3+) H Urine Nitrite Positive H Ur Leukocyte Esterase Large (3+) H Urine RBC >20 H Urine WBC >50 H Ur Squamous Epith Cells 0-2 Urine Bacteria 4+ Hyaline Casts >20 01/18/24 01/18/24 10:14 12:52 WBC RBC Hgb Hct MCV MCH MCHC RDW Plt Count MPV Immature Gran % (Auto) Neut % (Auto) Lymph % (Auto) [place] % (Auto) Eos % (Auto) Baso % (Auto) Lymph # (Auto) [place] # (Auto) Eos # (Auto) Baso # (Auto) Abs Immat Gran (auto) Absolute Neuts (auto) Absolute Nucleated RBC Nucleated RBC % (auto) PT INR Sodium Potassium Chloride Carbon Dioxide Anion Gap BUN Creatinine Estim Creat Clear Calc Estimated GFR Random Glucose Lactic Acid 2.2 H* Lactic Acid F/U @ 2Hr 1.3 Calcium Total Bilirubin Direct Bilirubin AST ALT Alkaline Phosphatase Total Protein Albumin Urine Color Urine Appearance Urine pH Ur Specific [place] Urine Protein Urine Glucose (UA) Urine Ketones Urine Blood Urine Nitrite Ur Leukocyte Esterase Urine RBC Urine WBC Ur Squamous Epith Cells Urine Bacteria Hyaline Casts Airway Mallampati Class: II TM Dist: >3cm Neck ROM: Full Heart: rrr Lungs: cta Assessment and Plan Assessment Anesthesia Assessment: Anesthesia Plan Discussed Final Anesthetic Review Family History of Problems with Anesthesia: No History of Problems with Anesthesia: No NPO: Yes ASA Class: III Final Preanesthetic Review: No Changes in Pt Med Stat, Meds/Allgs Chart Reviewed, Consent Obtained/Reviewed and Anes Risks/Benef Reviewed Patient Risk: Intermediate Procedure Risk: Low Anesthetic Plan Anesthetic Plan: GA and MAC: Disposition: Standard PACU
--- NOTE | 2024-01-18 13:54 | PC.NURSE ---
attempted calling three times to speak to staff to fax paperwork over regarding patients medical history. both lines transferred to said voicemail disabled for this ext. sent to cammie mirza and left a voicemail to call me back.
--- NOTE | 2024-01-18 13:58 | P.HPHOSP_ITS ---
History of Present Illness Date of Service: 01/18/24 Chief Complaint: blocked SPC History per chart review as pt is nonverbal and bedbound and the SNF where he lives is not answering our calls. 68[facility] with [facility], CVA with R-sided hemiparesis, neurogenic bladder with hx of FQ-sensitive Pseudomonas UTI and chronic SPC, stage 4 sacral decubitus ulcer, hx C. difficile colitis, seizure disorder, HTN, HLD, and pAF on rivaroxaban sent in with no urinary output for 8 days despite replacing the SPC. Pt appears uncomfortable with palpation of R side of abdomen. SPC was replaced in the ED with drainage of urine. CT showed an 8mm R ureteric stone with mild hydronephrosis and fat stranding around the bladder along with rectal ileus. He was found to have UTI and given a dose of ceftriaxone. Urology was consulted and will take the pt to the OR for ureteral stenting. Review of Systems 2 Review of Systems: Yes Unobtainable due to mental status PMFSH Medical History Osteomyelitis of sacrum Calculi, ureter Decubitus ulcer Acute UTI Seizure disorder Chronic constipation Decubitus ulcer of sacral area Osteomyelitis Septic shock C. 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 Mother No problems noted. Surgical History No pertinent past surgical history Social History Household Members: Other Household Members Other:: SNF Housing: Detention Are you a primary childcare teacher to a significant other at home: No Do you presently have visiting nurse or other home services: No Unable to assess alcohol history related to: Unable to respond Alcohol intake: former Comment: patient sleeping Patient Tobacco Use Status: Tobacco use Unknown Smoked in Last 30 Days: No Second Hand Smoke Exposure: No Use of substances other than those prescribed or required for medical reasons: No Advance Directives: Yes Advance Directives on File: Yes Advance Directives Date on File: 07/25/21 service: No Current occupational status: disabled Meds Allergies Allergy/AdvReac Type Severity Reaction Status Date / Time No Known Allergies Allergy Verified 01/18/24 05:53 [No Known Allergies*] Active Medications: Current Medications Fentanyl (Fentanyl Citrate/Pf 100 Mcg/2 Ml Vial) 25 mcg IVPUSH Q5M PRN PRN Reason: Pain, Moderate to Severe (Pain Scale 4-10) Stop: 01/18/24 19:27 Levofloxacin (Levaquin) 750 mg in 150 mls @ 100 mls/hr IV Q24H KEE Naloxone HCl (Naloxone Hcl 0.4 Mg/Ml Vial) 0.04 mg IVPUSH Q5M PRN PRN Reason: Excessive sedation or RR < 8 Ondansetron HCl (Ondansetron Hcl 4 Mg/2 Ml Vial) 4 mg IVPUSH ONCE PRN PRN Reason: Nausea and Vomiting Stop: 01/18/24 19:27 Home Medications ?Medication ?Instructions ?Recorded ?Confirmed ?Last Taken ?Type acetaminophen 325 mg tablet 650 mg PO Q4H PRN fever/pain 02/16/21 10/05/23 Unknown History bisacodyl 10 mg rectal suppository 10 mg RI DAILY PRN If no BM in 8 02/16/21 10/05/23 Unknown History hours after use of MoM calcium 600 mg (as 1 tab PO BID 02/16/21 10/05/23 02/14/22 History carbonate)-vitamin D3 5 mcg (200 unit) tablet magnesium hydroxide 400 mg/5 mL 30 ml PO DAILY PRN No BM in 3 Days 02/16/21 10/05/23 Unknown History oral suspension (Milk of Magnesia) levetiracetam 100 mg/mL oral 2.5 ml PO BID 02/26/21 10/05/23 02/14/22 History solution atorvastatin 80 mg tablet 80 mg PO DAILY 01/26/22 10/05/23 02/14/22 History rivaroxaban 20 mg tablet (Xarelto) 20 mg PO DAILY 01/26/22 10/05/23 02/14/22 History magnesium citrate 150 ml PO DAILY PRN No BM in 12 hrs 02/15/22 10/05/23 Unknown History oxycodone 5 mg tablet 5 mg PO Q6H PRN Pain 02/15/22 10/05/23 Unknown History sodium phosphates 19 gram-7 118 ml RI DAILY PRN If no BM in 8 02/15/22 10/05/23 Unknown History gram/118 mL enema (Fleet Enema) hours after use of Bisacodyl acetaminophen 325 mg tablet 650 mg PO BEDTIME 10/03/22 10/05/23 Unknown History (Tylenol) acetic acid 0.25 % irrigation 50 ml irrigation [id number]@2100 10/03/22 10/05/23 Unknown History solution ferrous sulfate 325 mg (65 mg 325 mg PO DAILY 12/22/22 10/05/23 Unknown History iron) tablet potassium chloride 20 mEq oral 20 meq PO BID 12/22/22 10/05/23 Unknown History packet Physical Exam 2 Vital Signs and Narrative: Vital Signs: Last Vital Signs Temp 98.1 F 01/18/24 13:43 Pulse 74 01/18/24 13:43 Resp 16 01/18/24 13:43 BP 134/73 01/18/24 13:43 Pulse Ox 97 01/18/24 13:43 O2 Del Method Room Air 01/18/24 13:43 BMI result Body Mass Index 23.1 Gen: in no acute distress, nonverbal HEENT: sclera anicteric, moist mucus membranes Neck: supple Lungs: clear to auscultation bilaterally Heart: regular rate and rhythm, no murmurs Abd: soft, somewhat protuberant, vague tenderness on R Ext: no edema Skin: warm/well-perfused Neuro: alert, dense R hemiparesis with R facial droop and contracture of the R hand Psych: impaired insight Results Labs 01/18/24 06:34 01/18/24 06:34 Labs: Laboratory Results - last 24 hr 01/18/24 01/18/24 01/18/24 06:34 07:27 08:35 MCV 95.9 MCH 32.2 MCHC 33.5 RDW 14.0 Plt Count 163 MPV 9.4 Immature Gran % (Auto) 0.3 Neut % (Auto) 46.1 Lymph % (Auto) 32.5 [place] % (Auto) 15.2 H Eos % (Auto) 5.3 H Baso % (Auto) 0.6 Lymph # (Auto) 2.1 [place] # (Auto) 1.0 Eos # (Auto) 0.4 Baso # (Auto) 0.0 Abs Immat Gran (auto) 0.02 Absolute Neuts (auto) 3.0 Absolute Nucleated RBC 0.000 Nucleated RBC % (auto) 0.0 PT 32.5 H INR 2.8 H Anion Gap 10 L Estim Creat Clear Calc 81.3 Estimated GFR > 60 Random Glucose 106 Lactic Acid Lactic Acid F/U @ 2Hr Calcium 8.9 Total Bilirubin 0.5 Direct Bilirubin 0.2 AST 24 ALT 18 Alkaline Phosphatase 100 Total Protein 6.2 L Albumin 2.7 L Urine Color Red A Urine Appearance Turbid Urine pH 7.0 Ur Specific [place] 1.015 Urine Protein 300 (3+) H Urine Glucose (UA) Negative Urine Ketones Negative Urine Blood Large (3+) H Urine Nitrite Positive H Ur Leukocyte Esterase Large (3+) H Urine RBC >20 H Urine WBC >50 H Ur Squamous Epith Cells 0-2 Urine Bacteria 4+ Hyaline Casts >20 01/18/24 01/18/24 10:14 12:52 MCV MCH MCHC RDW Plt Count MPV Immature Gran % (Auto) Neut % (Auto) Lymph % (Auto) [place] % (Auto) Eos % (Auto) Baso % (Auto) Lymph # (Auto) [place] # (Auto) Eos # (Auto) Baso # (Auto) Abs Immat Gran (auto) Absolute Neuts (auto) Absolute Nucleated RBC Nucleated RBC % (auto) PT INR Anion Gap Estim Creat Clear Calc Estimated GFR Random Glucose Lactic Acid 2.2 H* Lactic Acid F/U @ 2Hr 1.3 Calcium Total Bilirubin Direct Bilirubin AST ALT Alkaline Phosphatase Total Protein Albumin Urine Color Urine Appearance Urine pH Ur Specific [place] Urine Protein Urine Glucose (UA) Urine Ketones Urine Blood Urine Nitrite Ur Leukocyte Esterase Urine RBC Urine WBC Ur Squamous Epith Cells Urine Bacteria Hyaline Casts Imaging Radiologist's Impressions: Impressions Abdomen/Pelvis CT 01/18/24 05:44 IMPRESSION: At least two, 0.8 cm or less right ureteral stones. Large left renal pelvic stones extending into the proximal ureter, each measuring up to approximately 3.7 cm in length. Multiple approximately 0.7 cm or less renal collecting system stones. Mild right hydronephrosis with associated induration of fat surrounding the right renal collecting system and proximal ureter. At least two, 0.6 cm or less, nonobstructing left renal collecting system stones. No evidence of hydronephrosis or hydroureter on the left. Tip of the suprapubic tube lies within the urinary bladder lumen. Diffuse thickening of the wall the urinary bladder. Question mild induration of surrounding fat, raising the possibility of cystitis, equivocal. Distended loops of colon extending to the rectum and measuring up to approximately 11 cm in diameter, similar compared with October 04, 2023. Findings more likely represent ileus rather than rectal obstruction. Multiple additional findings as above. Please see above. Electronically signed by: Donald Asif MD 01/18/2024 09:02 AM [facility] Assessment and Plan (1) Hydronephrosis with renal and ureteral calculous obstruction: Status: Acute Plan 68yo M LTC resident of [facility] with vascular dementia, CVA with R- sided hemiparesis, neurogenic bladder with hx of FQ-sensitive Pseudomonas UTI and chronic SPC, stage 4 sacral decubitus ulcer, hx C. difficile colitis, seizure disorder, HTN, HLD, and pAF on rivaroxaban sent in with SPC blockage that has resolved with replacement of the SPC but was found to have an obstructing R ureter stone. ureterolithiasis/hydronephrosis - admit to M/S, NPO for OR, Urology consultation blocked SPC catheter - resolved complicated UTI - will give levofloxacin; add vancomycin PO given hx C. difficile colitis; follow UCx + BCx ileus - NPO, IV fluids, Gen Surg consult sacral decub ulcer - Wound Care consult hx CVA - atorvastatin pAF - hold rivaroxaban HTN - hold losartan seizure disorder - levetiracetam VTE prophylaxis - SCDs, rivaroxaban postop dispo - eventual return to LTC code status - full I anticipate that the patient will stay at least 2 midnights as an inpatient in the hospital due to the above reasons. It is neither reasonable nor safe to care for them in a less acute setting. Quality Stroke Does the patient have a stroke diagnosis?: No VTE Prior VTE?: No VTE Risk Level:: Medical - moderate - high VTE Device Contraindication: N/A - Device Ordered VTE Drug Contraindication: N/A - Med Ordered
--- NOTE | 2024-01-18 14:02 | PC.NURSE ---
20g left wrist inserted robb well.
--- NOTE | 2024-01-18 14:11 | PC.NURSE ---
patient brought back to the ED per md melgar. md patel to do another case prior and this case is cancelled for today.
--- NOTE | 2024-01-18 14:16 | PC.NURSE ---
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
[2024-01-18] MEDS: Lactated Ringers 1,000 ML 125 ML IVCONT ×2 (14:22→23:50)
[2024-01-18] MEDS: levoFLOXacin/D5W 750 MG/150 ML PIGGYBACK 100 MG IV (14:22)
--- NOTE | 2024-01-18 15:22 | PHA.MEDREC ---
Addendum entered by Aundrea Hu RPh 01/18/24 15:47: Med rec reviewed by [facility] Original Note: Pharmacy Consult ? Medication Reconciliation Pharmacy has completed the medication reconciliation. Confirmed med rec with list from [facility] and [facility].
[2024-01-18] MEDS: levETIRAcetam 250 MG in 0.9 % Sodium Chloride 100 ML 410 MG IV ×2 (16:16→23:44)
--- NOTE | 2024-01-18 16:46 | PC.NURSE ---
Pt cleaned up and repositioned to right side. Stage 4 sacral decubitus ulcer noted, MD Graves made aware. Allevyn foam pad placed on sacrum and repositioned off sacrum with pillow. Call giraldo within reach, all needs met at this time.
[2024-01-18] MEDS: vancomycin HCL 125 MG CAPSULE PO ×2 (18:24→23:57)
--- NOTE | 2024-01-18 19:54 | P.CNGI_ITS ---
History of Present Illness Data of Consult Service Date: 01/18/24 Primary Care Provider: Lorraine Wiley MD HPI Reason for consult: ileus 68yo M LTC resident of [facility] with vascular dementia, CVA with R- sided hemiparesis, neurogenic bladder with hx of FQ-sensitive Pseudomonas UTI and chronic SPC, stage 4 sacral decubitus ulcer, hx C. difficile colitis, seizure disorder, HTN, HLD, and pAF on rivaroxaban who I am seeing for assessment for dilated loops of large bowel patient is non verbal, information from chart Apparently patient was sent due to poor urine o/p. He was suspected of having UTI and commenced on ABX also imaging with R ureteric stone with mild hydronephrosis and fat stranding around the bladder along with left sided ileus UA -pos for blood, and nitrites Review of Systems 2 Review of Systems: Yes Unobtainable due to mental condition and Unobtainable due to mental status PMFSH Past Medical History Medical History Osteomyelitis of sacrum Calculi, ureter Decubitus ulcer Acute UTI Seizure disorder Chronic constipation Decubitus ulcer of sacral area Osteomyelitis Septic shock C. 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 Mother No problems noted. Surgical History Surgical History No pertinent past surgical history Social History Social History Household Members: Unknown / Unable to assess Household Members Other:: SNF Housing: Unknown / Unable to assess Are you a primary home care administrator to a significant other at home: No Do you presently have visiting nurse or other home services: No Unable to assess alcohol history related to: Unable to respond Alcohol intake: former Comment: patient sleeping Patient Tobacco Use Status: Tobacco use Unknown Second Hand Smoke Exposure: No Advance Directives Date on File: 07/25/21 service: No Current occupational status: disabled Meds Allergies Allergy/AdvReac Type Severity Reaction Status Date / Time No Known Allergies Allergy Verified 01/18/24 05:53 [No Known Allergies*] Active Medications: Current Medications Acetaminophen (Acetaminophen 325 Mg Tablet) 650 mg PO Q6H PRN PRN Reason: Pain, Mild (Pain Scale 1-3), fever or headache Calcium Carbonate (Calcium Carbonate 750 Mg Tab.Chew) 750 mg PO Q4H PRN PRN Reason: Heartburn Levofloxacin (Levaquin) 750 mg in 150 mls @ 100 mls/hr IV Q24H [facility] Last Infusion: 01/18/24 16:16 Dose: Infused Lactated Ringer's (Lr) 1,000 mls @ 125 mls/hr IVCONT .Q8H [facility] Last Admin: 01/18/24 14:22 Dose: 125 mls/hr Levetiracetam 250 mg/ Sodium (Chloride) 102.5 mls @ 410 mls/hr IV Q12H [facility] Magnesium Hydroxide (Milk Of Magnesia 30 Ml Oral.Susp) 30 ml PO DAILY PRN PRN Reason: Constipation Melatonin (Melatonin 3 Mg Tablet) 6 mg PO BEDTIME PRN PRN Reason: Insomnia Naloxone HCl (Naloxone Hcl 0.4 Mg/Ml Vial) 0.04 mg IVPUSH Q5M PRN PRN Reason: Excessive sedation or RR < 8 Ondansetron HCl (Ondansetron Hcl 4 Mg/2 Ml Vial) 4 mg IVPUSH Q8H PRN PRN Reason: Nausea and Vomiting Sodium Biphosphate/Sodium Phosphate (Sodium Phosphate,Branch-Dibasic 133 Ml Enema) 118 ml ID DAILY PRN PRN Reason: If no BM in 8 hours after use of Bisacodyl Sodium Chloride (0.9 % Sodium Chloride Flush 3 Ml Syringe) 3 ml IVFLUSH QSHIFT [facility] Last Admin: 01/18/24 16:24 Dose: Not Given Sodium Hypochlorite (Sodium Hypochlorite 0.125% 473 Ml Solution) 1 appl TOPICAL BEDTIME KEE Vancomycin HCl (Vancomycin Hcl 125 Mg Capsule) 125 mg PO Q6H [facility] Last Admin: 01/18/24 18:24 Dose: 125 mg Home Medications ?Medication ?Instructions ?Recorded ?Confirmed ?Last Taken ?Type acetaminophen 325 mg tablet 650 mg PO Q4H PRN fever/pain 12/26/21 11/26/24 Unknown History bisacodyl 10 mg rectal suppository 10 mg ID DAILY PRN If no BM in 8 02/16/21 01/18/24 Unknown History hours after use of MoM calcium 600 mg (as 1 tab PO BID 02/16/21 01/18/24 02/14/22 History carbonate)-vitamin D3 5 mcg (200 unit) tablet magnesium hydroxide 400 mg/5 mL 30 ml PO DAILY PRN No BM in 3 Days 02/16/21 01/18/24 Unknown History oral suspension (Milk of [employer]) levetiracetam 100 mg/mL oral 2.5 ml PO BID 02/26/21 01/18/24 02/14/22 History solution atorvastatin 80 mg tablet 80 mg PO DAILY 01/26/22 01/18/24 02/14/22 History rivaroxaban 20 mg tablet (Xarelto) 20 mg PO DAILY 01/26/22 01/18/24 02/14/22 History magnesium citrate 150 ml PO DAILY PRN No BM in 12 hrs 02/15/22 01/18/24 Unknown History oxycodone 5 mg tablet 5 mg PO Q6H PRN Pain 02/15/22 01/18/24 Unknown History sodium phosphates 19 gram-7 118 ml ID DAILY PRN If no BM in 8 02/15/22 01/18/24 Unknown History gram/118 mL enema (Fleet Enema) hours after use of Bisacodyl acetaminophen 325 mg tablet 650 mg PO BEDTIME 10/03/22 01/18/24 Unknown History (Tylenol) acetic acid 0.25 % irrigation 50 ml irrigation [facility]@2100 10/03/22 01/18/24 Unknown History solution ferrous sulfate 325 mg (65 mg 325 mg PO DAILY 12/22/22 01/18/24 Unknown History iron) tablet potassium chloride 20 mEq oral 20 meq PO BID 12/22/22 01/18/24 Unknown History packet multivitamin 1 tab PO DAILY 01/18/24 01/18/24 Unknown History psyllium 1 ea PO BEDTIME 01/18/24 01/18/24 Unknown History sodium hypochlorite 0.125 % 1 appl topical BEDTIME 01/18/24 01/18/24 Unknown History solution Physical Exam 2 Vital Signs: Vital Signs: Last Vital Signs Temp 98.3 F 11/26/24 18:53 Pulse 69 01/18/24 18:53 Resp 16 01/18/24 18:53 BP 124/72 01/18/24 18:53 Pulse Ox 97 01/18/24 18:53 O2 Del Method Room Air 01/18/24 18:53 BMI result Body Mass Index 23.1 EXAM: GENERAL: The patient is non verbal VITAL SIGNS:see workflow HEENT: Nonicteric sclerae, PERRLA, EOMI. Oropharynx clear. Moist mucous membranes. Conjunctivae appear well perfused. No thyroid mass. CHEST: Chest wall is nontender. HEART: Regular rate and rhythm without murmurs. LUNGS: Clear to auscultation bilaterally. ABDOMEN: Soft, positive bowel sounds, nontender, no organomegaly.no flank tenderness SKIN: No rash, no excessive bruising, petechiae, or purpura. NEUROLOGIC: awake, eyes open, non verbal Psych: unable to assess Results Labs 01/18/24 06:34 01/18/24 06:34 Labs: Short CBC 01/18/24 Range/Units 06:34 WBC 6.6 (4.8-10.8) X10*3/uL Hgb 12.7 L (14.0-18.0) g/dl Hct 37.9 L (42.0-52.0) % Plt Count 163 (160-400) X10*3/uL BMP 01/18/24 06:34 Sodium 136 Potassium 3.6 Chloride 112 H Carbon Dioxide 18 L BUN 31 H Creatinine 0.99 Calcium 8.9 Liver Function 01/18/24 Range/Units 06:34 Total Bilirubin 0.5 (0.0-1.0) mg/dL Direct Bilirubin 0.2 (0.0-0.5) mg/dL AST 24 (5-37) U/L ALT 18 (0-40) U/L Alkaline Phosphatase 100 (39-117) U/L Albumin 2.7 L (3.5-5.0) g/dL Urine 01/18/24 Range/Units 08:35 Urine Color Red A Urine Appearance Turbid Urine pH 7.0 (5.0-9.0) Ur Specific [place] 1.015 (1.005-1.025) Urine Protein 300 (3+) H (Neg-Trace) mg/dL Urine Glucose (UA) Negative (Negative) mg/dL Imaging CT scan - abdomen: Attestation: I personally reviewed and interpreted this imaging study as follows: My impression: Right sided hydronephrosis and stgahorn calculus, bladder stone and thickening, dilated loops of left sided colon and fecal loading on the right Prior CT from this year and last reviewed with similar dilated loops of bowel Assessment and Plan (1) Acute UTI: Status: Acute Plan 1/ Suspect patient has ileus 2/2 acute UTI, has chronic dilated loops also prob 2/2 chronic immobility PLAN: 1/ Rectal tube for decompression and measure stool o/p 2/ optimize lytes, MAg, K and Ca--check TSH 3/if bowel sounds are normal and passing flatus then can commence on miralax bid 4/ repeat imaging after 24 hrs Procedures Date of Service Date of Service: 01/19/24
[2024-01-18] MEDS: Sodium Hypochlorite 0.125% 473 ML SOLUTION 1 APPL TOPICAL (22:17)
--- NOTE | 2024-01-18 22:23 | HO.SKINPHOTO ---
Location: coccyx Category: pressure Stage: 4 Length: Width: Depth: cm Location: Category: Stage: Length: Width: Depth: cm Location: Category: Stage: Length: Width: Depth: cm Location: Category: Stage: Length: Width: Depth: cm Location: Category: Stage: Length: Width: Depth: cm Location: Category: Stage: Length: Width: Depth: cm
--- NOTE | 2024-01-18 22:25 | PC.NURSE ---
patient came up with stage 4 ulcer to coccyx with foam drsg & blue packing in place. per MAR cleansed wound with dakin solution but no hydrofera blue available at this time. triad applied w/ fluff and covered with abd pad. skin photo uploaded in notes.
[2024-01-18] MEDS: 0.9 % Sodium Chloride Flush 3 ML SYRINGE IVFLUSH (23:52)
[2024-01-19 03:44] VITALS: BP 181/81; PULSE 60; RESP 18; TEMP 36.3; O2SAT 97
[2024-01-19 03:51] VITALS: BP 142/80
[2024-01-19] MEDS: vancomycin HCL 125 MG CAPSULE PO ×4 (05:51→23:59)
[2024-01-19 07:03] VITALS: BP 174/84; PULSE 64; RESP 16; TEMP 37.3; O2SAT 97
[2024-01-19] MEDS: Lactated Ringers 1,000 ML 125 ML IVCONT (07:58)
[2024-01-19] MEDS: 0.9 % Sodium Chloride Flush 3 ML SYRINGE IVFLUSH ×2 (07:59→20:27)
--- NOTE | 2024-01-19 08:25 | HO.WOUND ---
Wound Consult: Initial 68yr old male admitted to [facility] on?01/18/24 13:56- See progress notes and H&P for detailed history. Wound consult placed for Coccyx wound POA. Pt has been seen in the past by this technical publications writer. Sacrum / Coccyx Etiology: ??Stage 4 Pressure Injury Present on Admission Wound Bed: clean moist red pink tissue Edges: ?epibole Bonny wound: Scar tissue noted - pink tissue noted ?the right buttock is noted for full thickness injury unclear etiology will treat with triad and foam dressing Pain: pt denies Goals of Treatment: ? Moist wound healing - Moisture management with Alginate and off load pressure Recommendations: 1. Turn and Reposition every 2 hours and as needed for patient comfort.? Use pillows or wedges to support off loading positions. 2. Off Load all bony prominences with use of pillows and heel boots if needed.? Apply Preventative foams where needed. ? 3. Monitor for incontinence and moisture control, use barrier creams when needed for prevention and treatment. 4. Provide adequate and supplemental nutrition. 5. Order or Continue low air loss mattress. 6. Sacrum / Coccyx - Cleanse and irrigate with NS, Pat dry.? Apply skin prep to periwound, cover wound bed with Alginate (Durafiber AG).? Cover with Foam dressing.? Change every 3 days and PRN. 7. Right Buttock - Cleanse with NS, pat dry. Apply triad to wound bed cover with foam dressing. Change every 3 days and PRN. Recommend follow up out patient Wound Clinic at [address] [place] [id number] and to call for an appointment at time of discharge. [phone].? Re-consult wound care Nurse for wound deterioration or wound changes.
--- NOTE | 2024-01-19 08:26 | PM.UROCN ---
History of Present Illness Consult details Consult date: 01/18/24 Narrative: 68yo M LTC resident of [facility] pt is nonverbal and bedbound with vascular dementia, CVA with R-sided hemiparesis, neurogenic bladder with chronic SPT, stage 4 sacral decubitus ulcer, hx C. difficile colitis, seizure disorder, HTN, HLD, reportedly no urinary output for 8 days. Pt presented to ED with abdominal pain. ED physician changed SPT with good urine return. CT showed Right perinephic stranding, Right staghorn calculus, ureteral stones mild hydro- chronic, similar findings in september, renal fxn stable, repeat lactic acid normal. Ureteral stent was considered, however due to the position of staghorn calculus will likely limit adequate placement. Will continue to follow, and mange conservatively for now. Review of Systems Review of Systems: Yes Unobtainable due to mental status PMFSH Past Medical History Medical History (Updated 01/19/24 @ 08:49 by Jemal Ambrosio MD) Calculi, ureter Osteomyelitis of sacrum Decubitus ulcer Acute UTI Seizure disorder Chronic constipation Decubitus ulcer of sacral area Osteomyelitis Septic shock C. 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 Mother No problems noted. Surgical History Surgical History No pertinent past surgical history Social History Social History Household Members: Unknown / Unable to assess Household Members Other:: SNF Housing: Unknown / Unable to assess Are you a primary director of health care marketing to a significant other at home: No Do you presently have visiting nurse or other home services: No Unable to assess alcohol history related to: Unable to respond Alcohol intake: former Comment: patient sleeping Patient Tobacco Use Status: Tobacco use Unknown Second Hand Smoke Exposure: No Advance Directives Date on File: 07/25/21 service: No Current occupational status: disabled Meds Allergies Allergy/AdvReac Type Severity Reaction Status Date / Time No Known Allergies Allergy Verified 01/18/24 05:53 [No Known Allergies*] Active Medications: Current Medications Acetaminophen (Acetaminophen 325 Mg Tablet) 650 mg PO Q6H PRN PRN Reason: Pain, Mild (Pain Scale 1-3), fever or headache Calcium Carbonate (Calcium Carbonate 750 Mg Tab.Chew) 750 mg PO Q4H PRN PRN Reason: Heartburn Levofloxacin (Levaquin) 750 mg in 150 mls @ 100 mls/hr IV Q24H [facility] Last Infusion: 01/18/24 16:16 Dose: Infused Lactated Ringer's (Lr) 1,000 mls @ 125 mls/hr IVCONT .Q8H [facility] Last Admin: 01/19/24 07:58 Dose: 125 mls/hr Levetiracetam 250 mg/ Sodium (Chloride) 102.5 mls @ 410 mls/hr IV Q12H [facility] Last Infusion: 01/19/24 00:07 Dose: Infused Magnesium Hydroxide (Milk Of Magnesia 30 Ml Oral.Susp) 30 ml PO DAILY PRN PRN Reason: Constipation Melatonin (Melatonin 3 Mg Tablet) 6 mg PO BEDTIME PRN PRN Reason: Insomnia Naloxone HCl (Naloxone Hcl 0.4 Mg/Ml Vial) 0.04 mg IVPUSH Q5M PRN PRN Reason: Excessive sedation or RR < 8 Ondansetron HCl (Ondansetron Hcl 4 Mg/2 Ml Vial) 4 mg IVPUSH Q8H PRN PRN Reason: Nausea and Vomiting Sodium Biphosphate/Sodium Phosphate (Sodium Phosphate,Bertie-Dibasic 133 Ml Enema) 118 ml SC DAILY PRN PRN Reason: If no BM in 8 hours after use of Bisacodyl Sodium Chloride (0.9 % Sodium Chloride Flush 3 Ml Syringe) 3 ml IVFLUSH QSHIFT [facility] Last Admin: 01/19/24 07:59 Dose: 3 ml Sodium Hypochlorite (Sodium Hypochlorite 0.125% 473 Ml Solution) 1 appl TOPICAL BEDTIME [facility] Last Admin: 01/18/24 22:17 Dose: 1 appl Vancomycin HCl (Vancomycin Hcl 125 Mg Capsule) 125 mg PO Q6H [facility] Last Admin: 01/19/24 05:51 Dose: 125 mg Home Medications ?Medication ?Instructions ?Recorded ?Confirmed ?Last Taken ?Type acetaminophen 325 mg tablet 650 mg PO Q4H PRN fever/pain 02/16/21 01/18/24 Unknown History bisacodyl 10 mg rectal suppository 10 mg SC DAILY PRN If no BM in 8 02/16/21 01/18/24 Unknown History hours after use of MoM calcium 600 mg (as 1 tab PO BID 02/16/21 01/18/24 02/14/22 History carbonate)-vitamin D3 5 mcg (200 unit) tablet magnesium hydroxide 400 mg/5 mL 30 ml PO DAILY PRN No BM in 3 Days 02/16/21 01/18/24 Unknown History oral suspension (Milk of Magnesia) levetiracetam 100 mg/mL oral 2.5 ml PO BID 02/26/21 01/18/24 02/14/22 History solution atorvastatin 80 mg tablet 80 mg PO DAILY 01/26/22 01/18/24 02/14/22 History rivaroxaban 20 mg tablet (Xarelto) 20 mg PO DAILY 01/26/22 01/18/24 02/14/22 History magnesium citrate 150 ml PO DAILY PRN No BM in 12 hrs 02/15/22 01/18/24 Unknown History oxycodone 5 mg tablet 5 mg PO Q6H PRN Pain 02/15/22 01/18/24 Unknown History sodium phosphates 19 gram-7 118 ml SC DAILY PRN If no BM in 8 02/15/22 01/18/24 Unknown History gram/118 mL enema (Fleet Enema) hours after use of Bisacodyl acetaminophen 325 mg tablet 650 mg PO BEDTIME 10/03/22 01/18/24 Unknown History (Tylenol) acetic acid 0.25 % irrigation 50 ml irrigation TUTA@2100 10/03/22 01/18/24 Unknown History solution ferrous sulfate 325 mg (65 mg 325 mg PO DAILY 12/22/22 01/18/24 Unknown History iron) tablet potassium chloride 20 mEq oral 20 meq PO BID 12/22/22 01/18/24 Unknown History packet multivitamin 1 tab PO DAILY 01/18/24 01/18/24 Unknown History psyllium 1 ea PO BEDTIME 01/18/24 01/18/24 Unknown History sodium hypochlorite 0.125 % 1 appl topical BEDTIME 01/18/24 01/18/24 Unknown History solution Physical Exam Vital Signs: Vital Signs: Last Vital Signs Temp 99.1 F 01/19/24 07:03 Pulse 64 01/19/24 07:03 Resp 16 01/19/24 07:03 BP 174/84 H 01/19/24 07:03 Pulse Ox 97 01/19/24 07:03 O2 Del Method Room Air 01/19/24 07:03 BMI result Body Mass Index 23.1 : Other: SPT draining adequately Results Labs 01/18/24 06:34 01/18/24 06:34 Labs: Abnormal lab results 01/18/24 01/18/24 Range/Units 08:35 10:14 Lactic Acid 2.2 H* (0.5-2.0) mmol/L Urine Color Red A Urine Protein 300 (3+) H (Neg-Trace) mg/dL Urine Blood Large (3+) H (Negative) Urine Nitrite Positive H (Negative) Ur Leukocyte Esterase Large (3+) H (Negative) Urine RBC >20 H (0-2) /HPF Urine WBC >50 H (0-5) /HPF Urine 01/18/24 Range/Units 08:35 Urine Color Red A Urine Appearance Turbid Urine pH 7.0 (5.0-9.0) Ur Specific [place] 1.015 (1.005-1.025) Urine Protein 300 (3+) H (Neg-Trace) mg/dL Urine Glucose (UA) Negative (Negative) mg/dL Imaging Abdomen CT scan report/results: report reviewed and image reviewed CT scan - pelvis: report reviewed and image reviewed Additional studies: In review of CT imaging, staghorn is in the right kidney not left as dictated in 01/18/24 executive secretary social welfare. Will speak with Radiology for an addendum. Assessment and Plan (1) Acute UTI: Status: Acute (2) Pyelonephritis of right kidney: Status: Acute (3) Staghorn calculus: Status: Acute (4) Calculi, ureter: Status: Acute Plan Right pyelonenphritis, Right staghorn calculus, ureteral stones mild hydro- chronic, similar findings in september, renal fxn stable, Ureteral stent was considered, however due to the position of staghorn calculus will likely limit adequate placement. Will continue to follow, and mange conservatively for now. IV abx, IV fluid hydration Procedures Date of Service Date of Service: 01/19/24
[2024-01-19 09:10] VITALS: BMI 23.1
[2024-01-19 10:20] LABS: Basophils Percent Auto 0.7 % (0-2); Eosinophils Absolute Auto 0.1 X10*3/uL (0.0-0.4); Eosinophils Percent Auto 2.9 % (0-4); Hematocrit 32.9 % (42.0-52.0); Imm Gran Abs Auto 0.02 X10*3/uL (0.00-0.03); Imm Gran Pct Auto 0.5 % (0.0-0.4); Lymphocytes Absolute Auto 0.9 X10*3/uL (1.2-4.9); Lymphocytes Percent Auto 21.1 % (20-40); MANUAL DIFF FLAG NO; Mean Corpuscular HGB Conc 33.4 g/dl (31.0-36.0); Mean Corpuscular Hemoglobin 31.9 pg (27.0-33.0); Mean Corpuscular Volume 95.4 fL (80.0-98.0); Mean Platelet Volume 9.2 fL (9.4-12.4); Monocytes Absolute Auto 0.4 X10*3/uL (0.1-1.2); Monocytes Percent Auto 9.8 % (2-11); Neutrophils Absolute Auto 2.7 x10*3/uL (2.0-8.3); Platelet Count 156 X10*3/uL (160-400); Red Blood Count 3.45 X10*6/uL (4.60-5.80); Red Cell Distribution Width 13.7 % (11.0-16.0); White Blood Count 4.1 X10*3/uL (4.8-10.8)
[2024-01-19 10:33] LABS: INTERNATIONAL NORM RATIO 1.5 (0.9-1.1); Prothrombin Time 17.5 SEC (10.9-12.4)
[2024-01-19 10:48] LABS: Blood Urea Nitrogen 22 mg/dL (9-16); Calcium 8.4 mg/dL (8.4-10.2); Creatinine Clr Calc Pharmacy 91.4; Estimated Glomerular Filt Rate > 60; Glucose Random 139 mg/dL (60-115)
[2024-01-19 11:05] LABS: Anion Gap 15 (12-20); Carbon Dioxide 18 mmol/L (22-29); Chloride 112 mmol/L (96-108); Potassium 2.9 mmol/L (3.3-5.1); Sodium 142 mmol/L (135-145)
[2024-01-19 11:28] LABS: Magnesium 1.9 mg/dL (1.6-2.6)
--- NOTE | 2024-01-19 11:44 | MHC.CM.PN ---
pt from [facility] on a bed hold dc plan return to same
--- NOTE | 2024-01-19 11:44 | PC.NURSE ---
Stat order for KLor 20mEq x 2 given to pt just as order was cancelled by . Unable to chart that is was given PO. Md notified,as well as Pharmacy
[2024-01-19 11:48] LABS: C Reactive Protein 3.23 mg/dL (< or = 0.50)
--- NOTE | 2024-01-19 12:05 | MHC.SL.SWA ---
Speech Pathologist Impression: Mild to moderate oral dysphagia, minimal pharyngeal difficulty Risk of Aspiration Due to: Neurological Condition Dysphasia Diet Status: Recommend continue with PUREED (NDD1) solids and NECTAR THICK liquids, with pills CRUSHED in PUREE. Continue 1:1 assistance and aspiration precautions. Liquid Consistency and Strategies for Safe Swallow: Liquid Intake Recommendation: [place] Thick Liquid Intake Strategies: Small Sips Solid Food Consistency: Dietary Recommendations: Pureed (NDD1) Additional Modifications to Solid Foods: Pt requires full assist for all meals, liquids by TSP only, NO STRAWS. Do not attempt if PT is lethargic, not engaged in having meal. Oral Medication Intake: Crushed with Puree Please contact the pharmacy regarding appropriate crushable or liquid drug formulations that are available whenever modified delivery is recommended. Compensatory Strategies and Precautions to be Taken for Safe Swallow: Sitting Upright (90 deg) Small Bites and Sips Alternate Liquids/Solids Rate of Ingestion Change Supervision While Eating and Drinking for Safe Swallow: Total Supervision (1:1) Foods to Avoid: Swallowing Recommended Treatments: Compens. Strategy Educat. Recommendation for Speech: Comment: Pt coughed after consecutive sips of thins by straw. Pt tolerated consecutive sips of NTL by straw. Pt tolerated purees. Minimal pharyngeal dysphagia considered result of weakness in coordinating consecutive sips. Mild to moderate oral phase dysphagia pre-existing. Pt is edentulous and minimally verbal, but adequate oral prep phase observed with NTL and purees. Frequency/Duration: Date Range for Service Req: Timeline to reassess: Radial Router Operator Clinican/Clinical Fellow: No Supervisory Statement: I have reviewed and agree with the student/clinical fellow's documentation: N/A Speech Language Pathologist: Iliana Mcdaniels M.S., CCC-SLEEP LAB TECHNICIAN
[2024-01-19 13:27] VITALS: O2SAT 97
[2024-01-19 13:54] LABS: CDiff Gene PCR NEGATIVE (Negative)
[2024-01-19] MEDS: Losartan Potassium 50 MG TABLET 100 MG PO (14:19)
[2024-01-19] MEDS: levETIRAcetam Oral Soln 500 MG/5 ML PO ×2 (14:20→21:45)
[2024-01-19] MEDS: Rivaroxaban 20 MG TABLET PO (14:22)
[2024-01-19] MEDS: Potassium Chloride/H20 10 MEQ/100 ML PIGGYBACK 100 MEQ IV ×4 (14:23→20:27)
--- NOTE | 2024-01-19 14:35 | HO.PM.IMPN ---
Subjective Subjective Date of Service: 01/19/24 Interval History: awake, alert, nonverbal son at bedside and updated pt's diet per Urology no OR at this time had BM x3 [loose, green] this AM Review of Systems Review of Systems: Yes Unobtainable due to mental status Physical Exam Vital Signs: Vital Signs: Last Vital Signs Temp 99.1 F 01/19/24 07:03 Pulse 64 01/19/24 07:03 Resp 16 01/19/24 07:03 BP 174/84 H 01/19/24 07:03 Pulse Ox 97 01/19/24 07:03 O2 Del Method Room Air 01/19/24 07:03 BMI result Body Mass Index 23.1 Gen: in no acute distress, nonverbal HEENT: sclera anicteric, moist mucus membranes Neck: supple Lungs: clear to auscultation bilaterally Heart: regular rate and rhythm, no murmurs Abd: soft, non-tender, non-distended Ext: no edema Skin: warm/well-perfused Neuro: alert, dense R hemiparesis with R facial droop and contracture of the R hand Psych: impaired insight Objective Data Active Medications Acetaminophen (Acetaminophen 325 Mg Tablet) 650 mg PO Q6H PRN PRN Reason: Pain, Mild (Pain Scale 1-3), fever or headache Acetaminophen (Acetaminophen 325 Mg Tablet) 650 mg PO BEDTIME KEE Acetic Acid (Acetic Acid 0.25 % Irrigation 1,000 Ml Irrig.Soln) 1 appl TOPICAL TUTHSA@2100 KEE; Protocol Ascorbic Acid (Ascorbic Acid 500 Mg Tablet) 1,000 mg PO DAILY [facility] Atorvastatin Calcium (Atorvastatin Calcium 80 Mg Tablet) 80 mg PO DAILY [facility] Bisacodyl (Bisacodyl 10 Mg Supp.Rect) 10 mg SC DAILY PRN PRN Reason: If no BM in 8 hours after use of MoM Calcium Carbonate (Calcium Carbonate 750 Mg Tab.Chew) 750 mg PO Q4H PRN PRN Reason: Heartburn Calcium Carbonate/Cholecalciferol (Calcium + Vitamin D 250 Mg Tablet) 250 mg PO BID [facility] Ferrous Sulfate (Ferrous Sulfate 324 Mg Tablet.Dr) 324 mg PO DAILY [facility]EE Gabapentin (Gabapentin 300 Mg Capsule) 300 mg PO BEDTIME [facility] Levofloxacin (Levaquin) 750 mg in 150 mls @ 100 mls/hr IV Q24H [facility] Last Infusion: 01/18/24 16:16 Dose: Infused Documented By: PRATEEK Lactated Ringer's (Lr) 1,000 mls @ 125 mls/hr IVCONT .Q8H [facility] Last Admin: 01/19/24 07:58 Dose: 125 mls/hr Documented By: VERÓNICA Potassium Chloride (Potassium Chloride/H20) 10 meq in 100 mls @ 100 mls/hr IV Q1H [facility] Stop: 01/19/24 15:59 Last Admin: 01/19/24 14:23 Dose: 100 mls/hr Documented By: VERÓNICA Levetiracetam (Levetiracetam Oral Soln 500 Mg/5 Ml) 2.5 mg PO BID [facility] Last Admin: 01/19/24 14:20 Dose: 2.5 mg Documented By: VERÓNICA Losartan Potassium (Losartan Potassium 50 Mg Tablet) 100 mg PO DAILY [facility]; Protocol Last Admin: 01/19/24 14:19 Dose: 100 mg Documented By: VERÓNICA Magnesium Hydroxide (Milk Of Magnesia 30 Ml Oral.Susp) 30 ml PO DAILY PRN PRN Reason: Constipation Melatonin (Melatonin 3 Mg Tablet) 6 mg PO BEDTIME PRN PRN Reason: Insomnia Multivitamins/Vitamin C (Multivitamin Tablet) 1 tab PO DAILY [facility] Naloxone HCl (Naloxone Hcl 0.4 Mg/Ml Vial) 0.04 mg IVPUSH Q5M PRN PRN Reason: Excessive sedation or RR < 8 Ondansetron HCl (Ondansetron Hcl 4 Mg/2 Ml Vial) 4 mg IVPUSH Q8H PRN PRN Reason: Nausea and Vomiting Polyethylene Glycol (Polyethylene Glycol 3350 17 Gm Powd.Pack) 17 gm PO BID [facility] Potassium Chloride (Potassium Chloride Packet 20 Meq Packet) 20 meq PO BID [facility] Psyllium Hydrophilic Mucilloid (Psyllium Seed 3.7 Gm Packet) 3.7 gm PO BEDTIME [facility] Rivaroxaban (Rivaroxaban 20 Mg Tablet) 20 mg PO DAILY [facility] Last Admin: 01/19/24 14:22 Dose: 20 mg Documented By: VERÓNICA Sodium Biphosphate/Sodium Phosphate (Sodium Phosphate,Brown-Dibasic 133 Ml Enema) 118 ml SC DAILY PRN PRN Reason: If no BM in 8 hours after use of Bisacodyl Sodium Chloride (0.9 % Sodium Chloride Flush 3 Ml Syringe) 3 ml IVFLUSH QSHIFT [facility] Last Admin: 01/19/24 07:59 Dose: 3 ml Documented By: VERÓNICA Sodium Hypochlorite (Sodium Hypochlorite 0.125% 473 Ml Solution) 1 appl TOPICAL BEDTIME [facility] Last Admin: 01/18/24 22:17 Dose: 1 appl Documented By: DEE Tamsulosin HCl (Tamsulosin Hcl 0.4 Mg Capsule) 0.4 mg PO BEDTIME KEE Vancomycin HCl (Vancomycin Hcl 125 Mg Capsule) 125 mg PO Q6H [facility] Last Admin: 01/19/24 14:22 Dose: 125 mg Documented By: VERÓNICA Labs 01/19/24 09:58 01/19/24 09:58 Labs: Laboratory Results - last 24 hr 01/18/24 01/19/24 01/19/24 14:31 09:58 12:54 MCV 95.4 MCH 31.9 MCHC 33.4 RDW 13.7 Plt Count 156 L MPV 9.2 L Immature Gran % (Auto) 0.5 H Neut % (Auto) 65.0 Lymph % (Auto) 21.1 Brown % (Auto) 9.8 Eos % (Auto) 2.9 Baso % (Auto) 0.7 Lymph # (Auto) 0.9 L Brown # (Auto) 0.4 Eos # (Auto) 0.1 Baso # (Auto) 0.0 Abs Immat Gran (auto) 0.02 Absolute Neuts (auto) 2.7 Absolute Nucleated RBC 0.000 Nucleated RBC % (auto) 0.0 PT 17.5 H D INR 1.5 H Anion Gap 15 Estim Creat Clear Calc 91.4 Estimated GFR > 60 Random Glucose 139 H Calcium 8.4 Magnesium 1.9 C-Reactive Protein 3.23 H C. difficile Tox B Gene NEGATIVE Blood Type A Positive Antibody Screen NEGATIVE Microbiology Microbiology Results: Microbiology 01/18/24 10:33 Blood Culture - Preliminary Blood - Venous No growth after 24 hours. 01/18/24 10:15 Blood Culture - Preliminary Blood - Venous No growth after 24 hours. 01/18/24 Unknown Urine Culture - Preliminary Urine Other - Suprapubic Culture in progress. Assessment and Plan (1) Staghorn calculus: Status: Acute Plan d2 68yo M LTC resident of [facility] with vascular dementia, CVA with R-sided hemiparesis, neurogenic bladder with hx of FQ-sensitive Pseudomonas UTI and chronic SPC, stage 4 sacral decubitus ulcer, hx C. difficile colitis, seizure disorder, HTN, HLD, and pAF on rivaroxaban sent in with SPC blockage that has resolved with replacement of the SPC but was found to have an obstructing R staghorn calculus and cystitis staghorn stone/hydronephrosis - per Urology, similar findings in September. Ureteral stent was considered, however due to the position of staghorn calculus will likely limit adequate placement. Recommend conservative management for now. No OR planned. blocked SPC catheter - resolved complicated UTI - 01/17- levofloxacin; added preventive vancomycin PO given hx C. difficile colitis; follow UCx + BCx ileus - appears to have resolved; d/c rectal tube hypoK - replete IV+PO; recheck level in AM sacral decub ulcer - Wound Care consult hx CVA - atorvastatin pAF - resume rivaroxaban; OK with Urology HTN - resume losartan seizure disorder - levetiracetam VTE prophylaxis - rivaroxaban dispo - eventual return to LTC In my clinical judgment, the patient requires continued inpatient hospitalization for the following reasons: IV ABX Total time managing care of this patient today: 45 minutes. Quality Stroke Does the patient have a stroke diagnosis?: No VTE Prior VTE?: No VTE Risk Level:: Medical - moderate - high VTE Device Contraindication: N/A - Device Ordered VTE Drug Contraindication: N/A - Med Ordered
[2024-01-19 15:32] VITALS: BP 160/70; PULSE 88; RESP 16; TEMP 36.3; O2SAT 97
--- NOTE | 2024-01-19 16:05 | P.PNGI_ITS ---
Subjective Subjective Date of Service: 01/19/24 Interval History: incoherent looks relaxed apparently had 3 bowel motions overnight Critical Care Time (minutes): 0 Physical Exam 2 Vital Signs: Vital Signs: Last Vital Signs Temp 97.3 F 01/19/24 15:32 Pulse 88 01/19/24 15:32 Resp 16 01/19/24 15:32 BP 160/70 H 01/19/24 15:32 Pulse Ox 97 01/19/24 15:32 O2 Del Method Room Air 01/19/24 15:32 BMI result Body Mass Index 23.1 EXAM: GENERAL: The patient is well developed and nontoxic. VITAL SIGNS:see workflow HEENT: Nonicteric sclerae, PERRLA, EOMI. Oropharynx clear. Moist mucous membranes. Conjunctivae appear well perfused. No thyroid mass. CHEST: Chest wall is nontender. HEART: Regular rate and rhythm without murmurs. LUNGS: Clear to auscultation bilaterally. ABDOMEN: Soft, positive bowel sounds, nontender, no organomegaly.no flank tenderness SKIN: No rash, no excessive bruising, petechiae, or purpura. NEUROLOGIC: right sided contracted Psych: unable to assess Objective Data Labs 01/19/24 09:58 01/19/24 09:58 Labs: Laboratory Results - last 24 hr 01/19/24 01/19/24 09:58 12:54 WBC 4.1 L RBC 3.45 L Hgb 11.0 L Hct 32.9 L MCV 95.4 MCH 31.9 MCHC 33.4 RDW 13.7 Plt Count 156 L MPV 9.2 L Immature Gran % (Auto) 0.5 H Neut % (Auto) 65.0 Lymph % (Auto) 21.1 [place] % (Auto) 9.8 Eos % (Auto) 2.9 Baso % (Auto) 0.7 Lymph # (Auto) 0.9 L [place] # (Auto) 0.4 Eos # (Auto) 0.1 Baso # (Auto) 0.0 Abs Immat Gran (auto) 0.02 Absolute Neuts (auto) 2.7 Absolute Nucleated RBC 0.000 Nucleated RBC % (auto) 0.0 PT 17.5 H D INR 1.5 H Sodium 142 Potassium 2.9 L* Chloride 112 H Carbon Dioxide 18 L Anion Gap 15 BUN 22 H Creatinine 0.88 Estim Creat Clear Calc 91.4 Estimated GFR > 60 Random Glucose 139 H Calcium 8.4 Magnesium 1.9 C-Reactive Protein 3.23 H C. difficile Tox B Gene NEGATIVE Microbiology Microbiology Results: Microbiology 01/18/24 10:33 Blood - Venous Blood Culture - Preliminary No growth after 24 hours. 01/18/24 10:15 Blood - Venous Blood Culture - Preliminary No growth after 24 hours. 01/18/24 Unknown Urine Other - Suprapubic Urine Culture - Preliminary Culture in progress. Procedures Date of Service Date of Service: 01/19/24 Progress Note: A&P Assessment and plan (1) Adynamic ileus: Status: Acute Plan 1/ Clincially seems stable, soft abdomen and having bowel motions, has chronic dilated loops on imaging prob 2/2 to immobility and may be worse right now due to UTI PLAN: 1/ cont with laxatives 2/ monitor clinically, optimize lytes 3/ if worsening then rectal tube, might need surgical consult or colonoscopic decompression Time Spent With Patient Time: Total time managing care of this patient today ____ minutes. Quality Stroke Does the patient have a stroke diagnosis?: No VTE Prior VTE?: No VTE Risk Level:: Medical - moderate - high VTE Device Contraindication: N/A - Device Ordered VTE Drug Contraindication: N/A - Med Ordered
[2024-01-19 19:11] VITALS: BP 140/85; PULSE 103; RESP 16; TEMP 37.6; O2SAT 98
[2024-01-19] MEDS: Acetaminophen 325 MG TABLET 650 MG PO (20:24)
[2024-01-19] MEDS: Tamsulosin HCL 0.4 MG CAPSULE PO (20:25)
[2024-01-19] MEDS: Potassium Chloride Packet 20 MEQ PACKET PO (20:25)
[2024-01-19] MEDS: Calcium + Vitamin D 250 MG TABLET PO (20:25)
[2024-01-19] MEDS: Gabapentin 300 MG CAPSULE PO (20:25)
[2024-01-19] MEDS: Sodium Hypochlorite 0.125% 473 ML SOLUTION 1 APPL TOPICAL (20:27)
[2024-01-19] MEDS: levoFLOXacin/D5W 750 MG/150 ML PIGGYBACK 100 MG IV (21:35)
[2024-01-20 03:13] VITALS: BP 147/82; PULSE 92; RESP 14; TEMP 36.4; O2SAT 98
[2024-01-20 06:01] LABS: Hematocrit 33.6 % (42.0-52.0); Hemoglobin 11.5 g/dl (14.0-18.0); Mean Corpuscular HGB Conc 34.2 g/dl (31.0-36.0); Mean Corpuscular Volume 93.6 fL (80.0-98.0); Platelet Count 158 X10*3/uL (160-400); Red Blood Count 3.59 X10*6/uL (4.60-5.80); Red Cell Distribution Width 13.4 % (11.0-16.0); White Blood Count 4.6 X10*3/uL (4.8-10.8)
[2024-01-20 06:19] LABS: INTERNATIONAL NORM RATIO 2.3 (0.9-1.1); Prothrombin Time 26.7 SEC (10.9-12.4)
[2024-01-20 06:35] LABS: Anion Gap 10 (12-20); Blood Urea Nitrogen 18 mg/dL (9-16); Calcium 8.4 mg/dL (8.4-10.2); Carbon Dioxide 21 mmol/L (22-29); Chloride 112 mmol/L (96-108); Creatinine Clr Calc Pharmacy 91.4; Estimated Glomerular Filt Rate > 60; Glucose Random 115 mg/dL (60-115); Potassium 2.9 mmol/L (3.3-5.1); Sodium 140 mmol/L (135-145)
[2024-01-20] MEDS: vancomycin HCL 125 MG CAPSULE PO (06:43)
[2024-01-20 07:13] LABS: Campylobacter Not Detected (Not Detect.); Plesiomonas shigelloides Not Detected (Not Detect.); Salmonella Not Detected (Not Detect.); Vibrio Not Detected (Not Detect.)
[2024-01-20 07:14] LABS: Adenovirus F 40/41 Not Detected (Not Detect.); Astrovirus Not Detected (Not Detect.); Cryptosporidium Not Detected (Not Detect.); Cyclospora cayetanensis Not Detected (Not Detect.); E. coli EAEC Not Detected (Not Detect.); E. coli EPEC Not Detected (Not Detect.); E. coli ETEC Not Detected (Not Detect.); E. coli STEC Not Detected (Not Detect.); Entamoeba histolytica Not Detected (Not Detect.); Giardia lamblia Not Detected (Not Detect.); Norovirus GI/GII Not Detected (Not Detect.); Rotavirus A Not Detected (Not Detect.); Sapovirus Not Detected (Not Detect.); Shigella sp./EIEC Not Detected (Not Detect.); Vibrio Cholerae Not Detected (Not Detect.); Yersinia enterocolitica Not Detected (Not Detect.)
[2024-01-20 08:08] VITALS: BP 143/86; PULSE 87; RESP 12; TEMP 36.2; O2SAT 97
[2024-01-20] MEDS: 0.9 % Sodium Chloride Flush 3 ML SYRINGE IVFLUSH ×2 (08:13→17:29)
[2024-01-20] MEDS: Potassium Chloride/H20 10 MEQ/100 ML PIGGYBACK 100 MEQ IV ×2 (08:13→09:14)
[2024-01-20] MEDS: polyethylene glycoL 3350 17 GM POWD.PACK PO ×2 (08:17→21:35)
[2024-01-20] MEDS: Potassium Chloride Packet 20 MEQ PACKET PO ×2 (08:18→21:36)
[2024-01-20] MEDS: levETIRAcetam Oral Soln 500 MG/5 ML 250 MG PO ×2 (08:22→21:35)
[2024-01-20] MEDS: Losartan Potassium 50 MG TABLET 100 MG PO (08:26)
[2024-01-20] MEDS: Calcium + Vitamin D 250 MG TABLET PO ×2 (08:30→21:35)
[2024-01-20] MEDS: Ascorbic Acid 500 MG TABLET 1000 MG PO (08:30)
[2024-01-20] MEDS: Atorvastatin Calcium 80 MG TABLET PO (08:31)
[2024-01-20] MEDS: Multivitamin TABLET 1 TAB PO (08:32)
[2024-01-20] MEDS: Rivaroxaban 20 MG TABLET PO (08:34)
--- NOTE | 2024-01-20 09:35 | P.PNIM_ITS ---
Subjective Subjective Date of Service: 01/20/24 Interval History: Follow up for ureteral stone awake, alert, nonverbal per Urology no OR at this time Review of Systems Review of Systems: Yes Unobtainable due to mental status Physical Exam 2 Vital Signs: Vital Signs: Last Vital Signs Temp 97.2 F 01/20/24 08:08 Pulse 87 01/20/24 08:08 Resp 12 01/20/24 08:08 BP 143/86 H 01/20/24 08:08 Pulse Ox 97 01/20/24 08:08 O2 Del Method Room Air 01/20/24 08:08 BMI result Body Mass Index 23.1 Appearing in no acute distress lung sounds are clear to auscultation heart regular rate rhythm, clear S1, S2 positive bowel sounds, abdomen is soft, nontender neuro patient is alert, confused Objective Data Active Medications Acetaminophen (Acetaminophen 325 Mg Tablet) 650 mg PO Q6H PRN PRN Reason: Pain, Mild (Pain Scale 1-3), fever or headache Acetaminophen (Acetaminophen 325 Mg Tablet) 650 mg PO BEDTIME [facility] Last Admin: 01/19/24 20:24 Dose: 650 mg Documented By: BRITNEY Acetic Acid (Acetic Acid 0.25 % Irrigation 1,000 Ml Irrig.Soln) 1 appl TOPICAL TUTHSA@2100 [facility]; Protocol Ascorbic Acid (Ascorbic Acid 500 Mg Tablet) 1,000 mg PO DAILY [facility] Last Admin: 01/20/24 08:30 Dose: 1,000 mg Documented By: WILMER Atorvastatin Calcium (Atorvastatin Calcium 80 Mg Tablet) 80 mg PO DAILY [facility] Last Admin: 01/20/24 08:31 Dose: 80 mg Documented By: WILMER Bisacodyl (Bisacodyl 10 Mg Supp.Rect) 10 mg ND DAILY PRN PRN Reason: If no BM in 8 hours after use of MoM Calcium Carbonate (Calcium Carbonate 750 Mg Tab.Chew) 750 mg PO Q4H PRN PRN Reason: Heartburn Calcium Carbonate/Cholecalciferol (Calcium + Vitamin D 250 Mg Tablet) 250 mg PO BID [facility] Last Admin: 01/20/24 08:30 Dose: 250 mg Documented By: WILMER Ferrous Sulfate (Ferrous Sulfate 324 Mg Tablet.Dr) 324 mg PO DAILY [facility] Last Admin: 01/20/24 08:45 Dose: Not Given Documented By: WILMER Non-Admin Reason: unable to swallow this safely, uncrushable Gabapentin (Gabapentin 300 Mg Capsule) 300 mg PO BEDTIME [facility] Last Admin: 01/19/24 20:25 Dose: 300 mg Documented By: BRITNEY Levofloxacin (Levaquin) 750 mg in 150 mls @ 100 mls/hr IV Q24H [facility] Last Infusion: 01/19/24 23:10 Dose: Infused Documented By: BRITNEY Potassium Chloride (Potassium Chloride/H20) 10 meq in 100 mls @ 100 mls/hr IV Q1H [facility] Stop: 01/20/24 09:44 Last Admin: 01/20/24 09:14 Dose: 100 mls/hr Documented By: WILMER Levetiracetam (Levetiracetam Oral Soln 500 Mg/5 Ml) 250 mg PO BID [facility] Last Admin: 01/20/24 08:22 Dose: 250 mg Documented By: WILMER Losartan Potassium (Losartan Potassium 50 Mg Tablet) 100 mg PO DAILY [facility]; Protocol Last Admin: 01/20/24 08:26 Dose: 100 mg Documented By: WILMER Magnesium Hydroxide (Milk Of Magnesia 30 Ml Oral.Susp) 30 ml PO DAILY PRN PRN Reason: Constipation Melatonin (Melatonin 3 Mg Tablet) 6 mg PO BEDTIME PRN PRN Reason: Insomnia Multivitamins/Vitamin C (Multivitamin Tablet) 1 tab PO DAILY [facility] Last Admin: 01/20/24 08:32 Dose: 1 tab Documented By: WILMER Naloxone HCl (Naloxone Hcl 0.4 Mg/Ml Vial) 0.04 mg IVPUSH Q5M PRN PRN Reason: Excessive sedation or RR < 8 Ondansetron HCl (Ondansetron Hcl 4 Mg/2 Ml Vial) 4 mg IVPUSH Q8H PRN PRN Reason: Nausea and Vomiting Polyethylene Glycol (Polyethylene Glycol 3350 17 Gm Powd.Pack) 17 gm PO BID [facility] Last Admin: 01/20/24 08:17 Dose: 17 gm Documented By: WILMER Potassium Chloride (Potassium Chloride Packet 20 Meq Packet) 20 meq PO BID [facility] Last Admin: 01/20/24 08:18 Dose: 20 meq Documented By: WILMER Psyllium Hydrophilic Mucilloid (Psyllium Seed 3.7 Gm Packet) 3.7 gm PO BEDTIME [facility] Last Admin: 01/19/24 20:49 Dose: Not Given Documented By: BRITNEY Non-Admin Reason: Patient Refused Rivaroxaban (Rivaroxaban 20 Mg Tablet) 20 mg PO DAILY [facility] Last Admin: 01/20/24 08:34 Dose: 20 mg Documented By: WILMER Sodium Biphosphate/Sodium Phosphate (Sodium Phosphate,[place]-Dibasic 133 Ml Enema) 118 ml ND DAILY PRN PRN Reason: If no BM in 8 hours after use of Bisacodyl Sodium Chloride (0.9 % Sodium Chloride Flush 3 Ml Syringe) 3 ml IVFLUSH QSHIFT [facility] Last Admin: 01/20/24 08:13 Dose: 3 ml Documented By: WILMER Sodium Hypochlorite (Sodium Hypochlorite 0.125% 473 Ml Solution) 1 appl TOPICAL BEDTIME [facility] Last Admin: 01/19/24 20:27 Dose: 1 appl Documented By: BRITNEY Tamsulosin HCl (Tamsulosin Hcl 0.4 Mg Capsule) 0.4 mg PO BEDTIME [facility] Last Admin: 01/19/24 20:25 Dose: 0.4 mg Documented By: BRITNEY Vancomycin HCl (Vancomycin Hcl 125 Mg Capsule) 125 mg PO Q6H [facility] Last Admin: 01/20/24 06:43 Dose: 125 mg Documented By: BRITNEY Labs 01/20/24 04:57 01/20/24 04:57 Labs: Laboratory Results - last 24 hr 01/19/24 01/19/24 01/20/24 09:58 12:54 04:57 MCV 95.4 93.6 MCH 31.9 32.0 MCHC 33.4 34.2 RDW 13.7 13.4 Plt Count 156 L 158 L MPV 9.2 L 9.0 L Immature Gran % (Auto) 0.5 H Neut % (Auto) 65.0 Lymph % (Auto) 21.1 [place] % (Auto) 9.8 Eos % (Auto) 2.9 Baso % (Auto) 0.7 Lymph # (Auto) 0.9 L [place] # (Auto) 0.4 Eos # (Auto) 0.1 Baso # (Auto) 0.0 Abs Immat Gran (auto) 0.02 Absolute Neuts (auto) 2.7 Absolute Nucleated RBC 0.000 0.000 Nucleated RBC % (auto) 0.0 0.0 PT 17.5 H D 26.7 H D INR 1.5 H 2.3 H Anion Gap 15 10 L Estim Creat Clear Calc 91.4 91.4 Estimated GFR > 60 > 60 Random Glucose 139 H 115 Calcium 8.4 8.4 Magnesium 1.9 C-Reactive Protein 3.23 H Stl C. cayetanensis PCR Not Detected Stool Rotavirus A PCR Not Detected Stl Adenov F 40/41 PCR Not Detected Stool Astrovirus (PCR) Not Detected Stool Campylobacter PCR Not Detected Stool Cryptosporidium PCR Not Detected Stl Sh Tox Pr E STEC PCR Not Detected Stool E coli O157 PCR Not applicable Stl Enterotoxigenic E PCR Not Detected Stool EPEC (PCR) Not Detected Stool EAEC (PCR) Not Detected Stl E. histolytica PCR Not Detected Stool Giardia Lamblia PCR Not Detected Stl P. shigelloides PCR Not Detected Stool Salmonella PCR Not Detected Stool Sapovirus (PCR) Not Detected Stl Shigella/EIEC PCR Not Detected St Y.enterocolitica PCR Not Detected Stool Vibrio (PCR) Not Detected Stl Vibrio cholerae PCR Not Detected Stl Norovirus GI/GII PCR Not Detected C. difficile Tox B Gene NEGATIVE Microbiology Microbiology Results: Microbiology 01/18/24 Unknown Urine Culture - Final Urine Other - Suprapubic 01/18/24 10:33 Blood Culture - Preliminary Blood - Venous No growth after 24 hours. 01/18/24 10:15 Blood Culture - Preliminary Blood - Venous No growth after 24 hours. Assessment and Plan (1) Staghorn calculus: Status: Acute Plan 68yo M LTC resident of [facility] with vascular dementia, CVA with R- sided hemiparesis, neurogenic bladder with hx of FQ-sensitive Pseudomonas UTI and chronic SPC, stage 4 sacral decubitus ulcer, hx C. difficile colitis, seizure disorder, HTN, HLD, and pAF on rivaroxaban sent in with SPC blockage that has resolved with replacement of the SPC but was found to have an obstructing R staghorn calculus and cystitis hypoK replete IV+PO recheck level in AM staghorn stone/hydronephrosis per Urology, similar findings in September. Ureteral stent was considered, however due to the position of staghorn calculus will likely limit adequate placement. Recommend conservative management for now. No OR planned. blocked SPC catheter resolved complicated UTI 01/17- levofloxacin; added preventive vancomycin PO given hx C. difficile colitis; follow UCx + BCx ileus appears to have resolved s/p rectal tube sacral decub ulcer See Wound Care note hx CVA atorvastatin pAF resume rivaroxaban; OK with Urology HTN resume losartan seizure disorder no seizure activity noted levetiracetam VTE prophylaxis rivaroxaban Attending Dr. Ana Cristina gloria eventual return to LTC Total time managing care of this patient today: 45 minutes. Quality Stroke Does the patient have a stroke diagnosis?: No VTE Prior VTE?: No VTE Risk Level:: Medical - moderate - high VTE Device Contraindication: N/A - Device Ordered VTE Drug Contraindication: N/A - Med Ordered
[2024-01-20 13:01] LABS: Potassium 3.3 mmol/L (3.3-5.1)
[2024-01-20 13:11] VITALS: O2SAT 97
[2024-01-20 15:32] VITALS: BP 116/78; PULSE 99; RESP 18; TEMP 36.8; O2SAT 96
[2024-01-20] MEDS: levoFLOXacin/D5W 750 MG/150 ML PIGGYBACK 100 MG IV (17:29)
[2024-01-20 19:57] VITALS: BP 110/77; PULSE 95; RESP 18; TEMP 36.6; O2SAT 97
[2024-01-20] MEDS: Sodium Hypochlorite 0.125% 473 ML SOLUTION 1 APPL TOPICAL (21:34)
[2024-01-20] MEDS: ACETIC ACID 0.25% 1 APPL TOPICAL (21:35)
[2024-01-20] MEDS: Acetaminophen 325 MG TABLET 650 MG PO (21:35)
[2024-01-20] MEDS: Tamsulosin HCL 0.4 MG CAPSULE PO (21:35)
[2024-01-20] MEDS: Psyllium seed 3.7 GM PACKET PO (21:36)
[2024-01-20] MEDS: Gabapentin 300 MG CAPSULE PO (21:37)
[2024-01-21 03:25] VITALS: BP 120/75; PULSE 72; RESP 18; TEMP 36.2; O2SAT 98
[2024-01-21 07:46] VITALS: BP 125/78; PULSE 96; RESP 16; TEMP 36.6; O2SAT 98
[2024-01-21 08:02] LABS: Anion Gap 10 (12-20); Blood Urea Nitrogen 25 mg/dL (9-16); Calcium 8.4 mg/dL (8.4-10.2); Carbon Dioxide 21 mmol/L (22-29); Chloride 114 mmol/L (96-108); Creatinine Clr Calc Pharmacy 75.9; Estimated Glomerular Filt Rate > 60; Glucose Random 107 mg/dL (60-115); Phosphorus 2.5 mg/dL (2.7-4.5); Sodium 142 mmol/L (135-145)
[2024-01-21] MEDS: levETIRAcetam Oral Soln 500 MG/5 ML 250 MG PO (10:19)
[2024-01-21] MEDS: polyethylene glycoL 3350 17 GM POWD.PACK PO (10:21)
[2024-01-21] MEDS: Atorvastatin Calcium 80 MG TABLET PO (10:21)
[2024-01-21] MEDS: 0.9 % Sodium Chloride Flush 3 ML SYRINGE IVFLUSH (10:21)
[2024-01-21] MEDS: Calcium + Vitamin D 250 MG TABLET PO (10:21)
[2024-01-21] MEDS: Potassium Chloride Packet 20 MEQ PACKET PO (10:21)
[2024-01-21] MEDS: Losartan Potassium 50 MG TABLET 100 MG PO (10:21)
[2024-01-21] MEDS: Rivaroxaban 20 MG TABLET PO (10:21)
[2024-01-21] MEDS: Acetaminophen 325 MG TABLET 650 MG PO (10:22)
--- NOTE | 2024-01-21 11:54 | PM.DS ---
DS: Providers Provider Date of Service: 01/21/24 Date of admission: 01/18/24 13:56 Primary care physician: Lorraine Wiley MD Consults: 01/18/24 13:41 Consult to Urology Routine Consulting Provider: [facility] [place] Urology Services Reason for consultation: ureter stone 01/18/24 14:03 Consult to Wound Care Routine Reason for consultation: st 4 decub 01/18/24 14:15 Consult to Gastroenterology Routine Consulting Provider: [facility] [place] [facility] Gastroenterology Services Reason for consultation: rectal ileus DS: Diagnosis Discharge Diagnosis (1) Staghorn calculus: Status: Acute DS: Summary Hospital Course Hospital Course: History and physical as per admitting provider. History per chart review as pt is nonverbal and bedbound and the SNF where he lives is not answering our calls. 68yo M LTC resident of [facility] with vascular dementia, CVA with R-sided hemiparesis, neurogenic bladder with hx of FQ-sensitive Pseudomonas UTI and chronic SPC, stage 4 sacral decubitus ulcer, hx C. difficile colitis, seizure disorder, HTN, HLD, and pAF on rivaroxaban sent in with no urinary output for 8 days despite replacing the SPC. Pt appears uncomfortable with palpation of R side of abdomen. SPC was replaced in the ED with drainage of urine. CT showed an 8mm R ureteric stone with mild hydronephrosis and fat stranding around the bladder along with rectal ileus. He was found to have UTI and given a dose of ceftriaxone. Urology was consulted and will take the pt to the OR for ureteral stenting. Staghorn stone/hydronephrosis per Urology, similar findings in September. Ureteral stent was considered, however due to the position of staghorn calculus will likely limit adequate placement. Conservative management for now. No OR planned during admission. blocked SPC catheter resolved. complicated UTI on levofloxacin, end date 01/23/24; added preventive vancomycin PO given hx C. difficile colitis but neg cdiff so vanco stopped ileus resolved, s/p rectal tube hypoK. repleted with IV and oral, resolved sacral decub ulcer hx CVA atorvastatin pAF rivaroxaban; OK with Urology HTN losartan seizure disorder. no seizure activity noted . continue levetiracetam Time Attestation Discharge Coordination Time (in mins): 42 Quality: Safe Use of Opioids Does Pt have an Active Cancer Diagnosis on the Problem List?: No Quality: Stroke Does the patient have a stroke diagnosis?: No Physical Exam Vital Signs: Vital Signs: Last Vital Signs Temp 98 F 01/21/24 07:46 Pulse 96 01/21/24 07:46 Resp 16 01/21/24 07:46 BP 125/78 01/21/24 07:46 Pulse Ox 98 01/21/24 07:46 O2 Del Method Room Air 01/21/24 07:46 BMI result Body Mass Index 23.1 Appearing in no acute distress head is normocephalic atraumatic eyes pupils are PERRLA sclera is anicteric mouth throat mucous membranes are intact and moist neck is supple no lymphadenopathy, no JVD noted lung sounds are clear to auscultation heart regular rate rhythm, clear S1, S2 positive bowel sounds, abdomen is soft, nontender neuro patient is alert, confused DS: Data Data Completed and Pending Completed studies during hospitalization [Text1]: Procedures Change Drainage Device in Bladder, External Approach (10/05/23) Drainage of Bladder with Drainage Device, Percutaneous Endoscopic Approach (06/23/21) Transfusion of Nonautologous Red Blood Cells into Peripheral Vein, Percutaneous Approach (12/23/22) Labs on day of discharge: Laboratory Results - last 24 hr 01/20/24 01/21/24 12:39 06:46 Sodium 142 Potassium 3.3 3.0 L Chloride 114 H Carbon Dioxide 21 L Anion Gap 10 L BUN 25 H Creatinine 1.06 Estim Creat Clear Calc 75.9 Estimated GFR > 60 Random Glucose 107 Calcium 8.4 Phosphorus 2.5 L Preliminary micro results at discharge 01/18/24 10:33 Blood Culture - Preliminary Blood - Venous No growth after 48 hours. 01/18/24 10:15 Blood Culture - Preliminary Blood - Venous No growth after 48 hours. Discharge Plan Discharge Anticipated Discharge Date/Time: 01/21/24 11:36 Patient Disposition: Xfer LT Discharge Diagnosis: Staghorn stone/hydro nephrosis Blocked suprapubic catheter Complicated UTI Ileus Hypokalemia Sacral decubitus ulcer Referrals: Lorraine Wiley MD [Primary Care Provider] - 1 Week Discharge Medications: New levofloxacin 750 mg tablet 750 mg PO DAILY Qty: 2 0RF Continued (DME) wet wipes See Rx Instructions .ROUTE .MEDSUPPLY Qty: 5 3RF Rx Instructions: As directed levetiracetam 100 mg/mL solution 2.5 ml PO BID acetaminophen 325 mg Tablet 650 mg PO Q4H PRN (Reason: fever/pain) calcium carbonate-vitamin D3 600 mg-5 mcg (200 unit) Tablet 1 tab PO BID magnesium hydroxide [Milk of Magnesia] 400 mg/5 mL Suspension 30 ml PO DAILY PRN (Reason: No BM in 3 Days) bisacodyl 10 mg Suppository 10 mg W[place] DAILY PRN (Reason: If no BM in 8 hours after use of MoM) Fleet Enema 19-7 gram/118 mL Enema 118 ml W[place] DAILY PRN (Reason: If no BM in 8 hours after use of Bisacodyl) magnesium citrate Solution 150 ml PO DAILY PRN (Reason: No BM in 12 hrs) oxycodone 5 mg Tablet 5 mg PO Q6H PRN (Reason: Pain) potassium chloride 20 mEq Packet 20 meq PO BID ferrous sulfate 325 mg (65 mg iron) Tablet 325 mg PO DAILY multivitamin Tablet 1 tab PO DAILY psyllium Powder 1 ea PO BEDTIME Rx Instructions: mix into at least 8 oz of water or juice before administering sodium hypochlorite 0.125 % Solution 1 appl TOPICAL BEDTIME Rx Instructions: APPLY TO COCCYX WOUND TOPICALLY EVERY RESOLUTE PROFESSIONAL FOR WOUND CARE TO PRESSURE AREA, CLEANSE WITH DAKIN'S SOLUTION, PACK WITH HYDRAFERA BLUE, COVER WITH DRY CLEAN DRESSING DAILY. acetaminophen [Tylenol] 325 mg Tablet 650 mg PO BEDTIME acetic acid 0.25 % Solution 50 ml IRRIGATION TUTHSA@2100 Rx Instructions: for urinary catheter flush losartan 100 mg tablet 100 mg PO DAILY 90 Days Qty: 90 4RF gabapentin 300 mg capsule 300 mg PO BEDTIME 30 Days Qty: 30 0RF (DME) [facility] See Rx Instructions .ROUTE .MEDSUPPLY Qty: 1 0RF Rx Instructions: RUE resting hand Splint/Sling As directed, Dx: G81.91, I67.89, duration 999 days/life time tamsulosin 0.4 mg capsule 0.4 mg PO BEDTIME 90 Days Qty: 90 1RF Xarelto 20 mg tablet 20 mg PO DAILY atorvastatin 80 mg tablet 80 mg PO DAILY ascorbic acid (vitamin C) 1,000 mg tablet 1,000 mg PO DAILY 90 Days Qty: 90 1RF methenamine hippurate 1 gram tablet 1 g PO daily 90 Days Qty: 90 1RF Discharge Orders: Discharge Order (Routine); Ordered 01/21/24 Ordered By: Taylor Ventura Diet: Advance to usual diet Activity on Discharge: As tolerated Stand Alone Forms: Patient Portal Discharge page Print Language: Japanese Activity Restrictions/Additional Instructions: Topical Wound Care Recommendations: Sacrum / Coccyx - Cleanse and irrigate with NS, Pat dry.? Apply skin prep to periwound, cover wound bed with Alginate (Durafiber AG).? Cover with Foam dressing.? Change every 3 days and PRN. Right Buttock - Cleanse with NS, pat dry. Apply triad to wound bed cover with foam dressing. Change every 3 days and PRN. Recommend follow up out patient Wound Clinic at [address] [place] [id number] and to call for an appointment at time of discharge. [phone].? Care Plan Goals: complete antibiotic course Health Concerns: Staghorn stone/hydro nephrosis Blocked suprapubic catheter Complicated UTI Ileus Hypokalemia Sacral decubitus ulcer Plan of Treatment: Follow-up with primary care provider as needed Take all medications as prescribed Assessment: See discharge summary
--- NOTE | 2024-01-21 12:09 | MHC.CM.PN ---
DP: PT HAS BEEN MEDICALLY CLEARED FOR DC BACK TO [facility] VIA BLS TRANSPORT AT 12:30 PM VIA [facility]. CENTER UPDATED VIA TELEPHONE/CAREPORT. HCP JOCELYNE UPDATED. RN AWARE.
== END 2024-01-21 13:05 | DRG 698 ==
LOC: HO.ED 13:27 → HO.EDOVER 14:00 → HO.S3 19:18
PROVIDERS: Emergency Medicine; Admitting Provider Family Medicine; Emergency Provider Emergency Medicine; PCP Internal Medicine; Visit Provider Nurse Practitioner Acute Care
DX: T83.090A Other mechanical complication of cystostomy catheter, initial encounter (principal); L89.154 Pressure ulcer of sacral region, stage 4; I69.351 Hemiplegia and hemiparesis following cerebral infarction affecting right dominant side; N13.6 Pyonephrosis; K56.7 Ileus, unspecified; E87.6 Hypokalemia; G40.909 Epilepsy, unspecified, not intractable, without status epilepticus; F01.50 Vascular dementia, unspecified severity, without behavioral disturbance, psychotic disturbance, mood disturbance, and anxiety; I48.0 Paroxysmal atrial fibrillation; N31.9 Neuromuscular dysfunction of bladder, unspecified; I10 Essential (primary) hypertension; E78.5 Hyperlipidemia, unspecified; Z74.01 Bed confinement status; Z87.440 Personal history of urinary (tract) infections; Z79.01 Long term (current) use of anticoagulants; Z79.899 Other long term (current) drug therapy
CPT/HCPCS: 36415; 74018; 74176; 80048; 80076; 81001; 83605; 83735; 84100; 84132; 85025; 85027; 85610; 86140; 86850; 86900; 86901; 86927; 87040; 87086; 87493; 87507; 92610; 99285; J0696; J1953; J1956; J3480; J7120

== ENCOUNTER → 2024-01-18 13:56 | Outpatient (BNV) | payer OTHER, SELFPAY | PROVIDERS: Admitting Provider Family Medicine; Emergency Provider Emergency Medicine; PCP Internal Medicine; Visit Provider Urology | DX: N39.0 Urinary tract infection, site not specified (principal); N12 Tubulo-interstitial nephritis, not specified as acute or chronic; N20.0 Calculus of kidney; N20.1 Calculus of ureter | CPT/HCPCS: 99222 ==

== ENCOUNTER → 2024-01-18 13:56 | Outpatient (BNV) | payer OTHER, SELFPAY | PROVIDERS: Admitting Provider Family Medicine; Emergency Provider Emergency Medicine; Visit Provider Family Medicine | DX: N20.0 Calculus of kidney (principal) | CPT/HCPCS: 99223; 99232; 99239 ==

== ENCOUNTER → 2024-01-18 13:56 | Outpatient (BNV) | payer OTHER, SELFPAY | PROVIDERS: Admitting Provider Family Medicine; Emergency Provider Emergency Medicine; PCP Internal Medicine; Visit Provider Internal Medicine Gastroenterology | DX: K56.0 Paralytic ileus (principal); N39.0 Urinary tract infection, site not specified | CPT/HCPCS: 99223; 99232 ==

== ENCOUNTER 2024-01-23 05:17 | Inpatient (IN) | payer OTHER, SELFPAY ==
[2024-01-23] VITALS (8 sets, daily range): BP systolic 116–165; BP diastolic 73–80; PULSE 48–69; RESP 12–20; TEMP 36.3–37.2; O2SAT 95–98; BMI 20.7; BMI 23.5
--- NOTE | ~2024-01-23 | XR_ITS ---
EXAMINATION: XR ABDOMEN KUB CLINICAL INDICATION: Follow up colonic distention. COMPARISON: CT abdomen and pelvis 01/23/2024 , KUB 01/19/2024. TECHNIQUE: 3 AP views of the abdomen. FINDINGS: Colon remains severely distended with air. Large amount of stool throughout the colon. Bilateral renal calculi, were better visualized on prior CT scan as visualization of the bilateral kidneys is substantially limited due to overlying bowel. Examples include 0.9 cm calculus to the right of L3-L4, and small cluster of calculi overlying the interpolar right kidney. XR/XR KUB IMPRESSION: Colon remains severely distended with air. Large amount of stool throughout the colon. This study was presented today January 26, 2024 for interpretation. Stat results provided at this time as requested by referring provider. Electronically signed by: Laurie Shah MD 01/26/2024 07:16 AM [facility]
--- NOTE | ~2024-01-23 | CT_ITS ---
EXAMINATION: CT ABDOMEN AND PELVIS WITHOUT CONTRAST CLINICAL INFORMATION: Distention. No bowel movement. COMPARISON: Abdominal radiograph dated 01/19/[address] abdomen/pelvis dated 01/18/2024. TECHNIQUE: Multidetector volumetric imaging was performed from the superior aspect of the liver through the pubic symphysis. Sagittal and coronal reformatted images were obtained on the technologist's workstation. This CT examination was performed using dose optimization techniques as appropriate, variously including the following: *Automated exposure control *Adjustment of mA and/or kV according to patient size (this includes techniques or standardized protocols for targeted exams where dose is matched to indication/reason for exam; i.e. extremities or head) *Use of iterative reconstruction technique DLP: 897 mGy-cm FINDINGS: LUNG BASES: The visualized lung bases are unremarkable. LIVER, GALLBLADDER, AND BILIARY TREE: The liver is normal in size, shape, and attenuation. No focal hepatic lesion or biliary ductal dilatation is present. Nondistended and unremarkable. PANCREAS: Unremarkable. SPLEEN: Unremarkable. ADRENAL GLANDS: Unremarkable. KIDNEYS AND URETERS: Redemonstration of bilateral renal cortical atrophy. Large stone within the right renal pelvis measuring up to 5.7 cm in craniocaudal dimension and approximately 528 Hounsfield units. This is located approximately 7.8 cm from the posterior axillary line. Additional more proximal right-sided renal stones measuring up to 1.1 cm in the mid/lower pole. There is a proximal right ureteral stone which measures up to 0.8 cm and is located at the level of the L3-L4 intervertebral disc. More distally within the right ureter, there are 2 stones measuring up to 1.1 and 0.7 cm in greatest dimension and located approximately 5.1 cm proximal to the ureterovesicular junction. No right-sided hydroureteronephrosis. Right peripelvic stranding adjacent to the large pelvic stone, similar when compared to the prior CT. Distal left ureteral stone measuring up to 0.6 cm and located approximately 2.1 cm proximal to the left ureterovesicular junction. More proximal left ureteral stone measuring up to 0.3 cm at the level of the L3 vertebral body. No left-sided hydroureteronephrosis. Additional left renal pelvic and mid pole stones measuring up to 0.2 cm. BLADDER: Nondistended with a suprapubic catheter in place. GASTROINTESTINAL TRACT: The colon is severely distended with air. There is moderate stool within the ascending colon. Trace contrast within the rectum. Nondistended and unremarkable small bowel. No bowel wall thickening or inflammatory change. Unremarkable appendix. PERITONEAL CAVITY: No intra-abdominal free air or free fluid. ABDOMINAL WALL: No significant hernia is appreciated. LYMPH NODES: No lymphadenopathy. VASCULAR: No abdominal aortic dilatation. Atherosclerotic calcifications. PELVIC VISCERA: The prostate and seminal vesicles are unremarkable. OSSEOUS STRUCTURES: No acute osseous abnormality. CT/CT abdomen pelvis wo IV con IMPRESSION: 1. Severely distended colon with air. Moderate stool within the ascending colon. Findings could indicate ileus. No evidence of obstruction. No bowel wall thickening or inflammatory change. No small or large bowel obstruction. Unremarkable appendix. 2. Bilateral renal stones with a large stone within the right renal pelvis measuring up to 5.7 cm. Additional bilateral ureteral stones measuring up to 1.1 cm on the right and 0.6 cm on the left. No hydronephrosis or hydroureter. 3. Suprapubic catheter in place within the urinary bladder. No bladder wall thickening or associated inflammatory change. 4. No intra-abdominal lymphadenopathy or ascites. Fleischner guidelines were followed. Electronically signed by: Cam Darling MD 01/23/2024 09:36 AM [facility] Workstation: [id number]
--- NOTE | 2024-01-23 05:44 | ECG_ITS ---
Test Reason : CHEST PAIN Blood Pressure : / mmHG Vent. Rate : 049 BPM Atrial Rate : 049 BPM P-R Int : 162 ms QRS Dur : 090 ms QT Int : 416 ms P-R-T Axes : 020 012 000 degrees QTc Int : 375 ms Sinus bradycardia Likely non-specific Q lead 3 Otherwise normal EKG When compared with ECG of 28-MAR-2023 17:45, Vent. rate has decreased BY 37 BPM QT has shortened Referred By: Generic ED Physician Electronically Signed By:VINI ROBERT
--- NOTE | 2024-01-23 05:51 | PC.NURSE ---
bowel sounds present in luq, llq tender to touch in ruq and rlq this rn attempted to utilize professor of biostatistics for assessment pt would not respond to respond
[2024-01-23 06:33] LABS: MANUAL DIFF FLAG NO
[2024-01-23 06:36] LABS: Basophils Percent Auto 0.4 % (0-2); Eosinophils Absolute Auto 0.3 X10*3/uL (0.0-0.4); Eosinophils Percent Auto 6.5 % (0-4); Hematocrit 30.8 % (42.0-52.0); Hemoglobin 10.6 g/dl (14.0-18.0); Imm Gran Abs Auto 0.02 X10*3/uL (0.00-0.03); Imm Gran Pct Auto 0.4 % (0.0-0.4); Lymphocytes Absolute Auto 1.4 X10*3/uL (1.2-4.9); Lymphocytes Percent Auto 28.5 % (20-40); Mean Corpuscular HGB Conc 34.4 g/dl (31.0-36.0); Mean Corpuscular Hemoglobin 32.8 pg (27.0-33.0); Mean Corpuscular Volume 95.4 fL (80.0-98.0); Mean Platelet Volume 8.8 fL (9.4-12.4); Monocytes Absolute Auto 0.6 X10*3/uL (0.1-1.2); Monocytes Percent Auto 12.7 % (2-11); Neutrophils Absolute Auto 2.4 x10*3/uL (2.0-8.3); Neutrophils Percent Auto 51.5 % (45-73); Platelet Count 149 X10*3/uL (160-400); Red Blood Count 3.23 X10*6/uL (4.60-5.80); White Blood Count 4.7 X10*3/uL (4.8-10.8)
[2024-01-23 06:53] LABS: Alanine Aminotransferase 18 U/L (0-40); Albumin Level 2.9 g/dL (3.5-5.0); Alkaline Phosphatase 106 U/L (39-117); Anion Gap 9 (12-20); Aspartate Amino Transferase 27 U/L (5-37); Bilirubin Total 0.5 mg/dL (0.0-1.0); Blood Urea Nitrogen 30 mg/dL (9-16); Calcium 8.9 mg/dL (8.4-10.2); Carbon Dioxide 23 mmol/L (22-29); Chloride 115 mmol/L (96-108); Creatinine Clr Calc Pharmacy 54.9; Estimated Glomerular Filt Rate 58; Glucose Random 114 mg/dL (60-115); Lipase 26 U/L (8-78); Potassium 3.3 mmol/L (3.3-5.1); Sodium 144 mmol/L (135-145); Total Protein 6.3 g/dL (6.5-8.0)
--- NOTE | 2024-01-23 08:01 | ED_ITS ---
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 He was brought back today after DC 01/20 for concern about no BM and distention. As well as hematuria. Patient himself is not verbal and looks away and sleeps when trying to be interviewed. MD Complaint: other (abdominal distention, hematuria) Onset (ago): day(s) (1) Duration: constant Severity: moderate Relieving factors: none Exacerbating factors: none Context: other Associated symptoms: Reports blood in urine Related Data Home Medications ?Medication ?Instructions ?Recorded ?Confirmed acetaminophen 325 mg tablet 650 mg PO Q4H PRN fever/pain 02/16/21 01/18/24 bisacodyl 10 mg rectal suppository 10 mg [place] DAILY PRN If no BM in 8 02/16/21 01/18/24 hours after use of MoM calcium 600 mg (as 1 tab PO BID 02/16/21 01/18/24 carbonate)-vitamin D3 5 mcg (200 unit) tablet magnesium hydroxide 400 mg/5 mL 30 ml PO DAILY PRN No BM in 3 Days 02/16/21 01/18/24 oral suspension (Milk of Magnesia) levetiracetam 100 mg/mL oral 2.5 ml PO BID 02/26/21 01/18/24 solution atorvastatin 80 mg tablet 80 mg PO DAILY 01/26/22 01/18/24 rivaroxaban 20 mg tablet (Xarelto) 20 mg PO DAILY 01/26/22 01/18/24 magnesium citrate 150 ml PO DAILY PRN No BM in 12 hrs 02/15/22 01/18/24 oxycodone 5 mg tablet 5 mg PO Q6H PRN Pain 02/15/22 01/18/24 sodium phosphates 19 gram-7 118 ml [place] DAILY PRN If no BM in 8 02/15/22 01/18/24 gram/118 mL enema (Fleet Enema) hours after use of Bisacodyl acetaminophen 325 mg tablet 650 mg PO BEDTIME 10/03/22 01/18/24 (Tylenol) acetic acid 0.25 % irrigation 50 ml irrigation TUTHSA@2100 10/03/22 01/18/24 solution ferrous sulfate 325 mg (65 mg 325 mg PO DAILY 12/22/22 01/18/24 iron) tablet potassium chloride 20 mEq oral 20 meq PO BID 12/22/22 01/18/24 packet multivitamin 1 tab PO DAILY 01/18/24 01/18/24 psyllium 1 ea PO BEDTIME 01/18/24 01/18/24 sodium hypochlorite 0.125 % 1 appl topical BEDTIME 01/18/24 01/18/24 solution Previous Rx's ?Medication ?Instructions ?Recorded losartan 100 mg tablet 100 mg PO DAILY 90 days #90 tabs 02/07/20 wet wipes #5 multiple units 03/12/20 tamsulosin 0.4 mg capsule 0.4 mg PO BEDTIME 90 days #90 caps 03/22/20 gabapentin 300 mg capsule 300 mg PO BEDTIME 30 days #30 caps 03/27/20 miscellaneous medical supply #1 ea 03/27/20 ascorbic acid (vitamin C) 1,000 mg 1,000 mg PO DAILY 90 days #90 tabs 01/27/22 tablet methenamine hippurate 1 gram tablet 1 g PO daily 90 days #90 tabs 01/27/22 levofloxacin 750 mg tablet 750 mg PO DAILY #2 tabs 01/21/24 Allergies Allergy/AdvReac Type Severity Reaction Status Date / Time No Known Allergies Allergy Verified 01/23/24 05:42 [No Known Allergies*] Review of Systems 2 Review of Systems: ROS unable to be obtained due to nonverbal status PMFSH Past Medical History Attestation statement: The following information was validated with the patient. Source: old records reviewed Medical History Calculi, ureter Osteomyelitis of sacrum Decubitus ulcer Acute UTI Seizure disorder Chronic constipation Decubitus ulcer of sacral area Osteomyelitis Septic shock C. 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 Mother No problems noted. Social History Social History Household Members: Unknown / Unable to assess Household Members Other:: SNF Housing: Unknown / Unable to assess Are you a primary palliative care physician to a significant other at home: No Do you presently have visiting nurse or other home services: No Unable to assess alcohol history related to: Unable to respond Alcohol intake: former Comment: patient sleeping Patient Tobacco Use Status: Tobacco use Unknown Second Hand Smoke Exposure: No Advance Directives: Yes Advance Directives on File: Yes Advance Directives Date on File: 07/25/21 Do you have a plan to hurt others: No Plan service: No Current occupational status: disabled Physical Exam 2 Vital Signs: Vital Signs: Last Vital Signs Temp 98 F 01/23/24 06:31 Pulse 54 01/23/24 07:56 Resp 12 01/23/24 07:56 BP 125/74 01/23/24 07:56 Pulse Ox 97 01/23/24 07:56 O2 Del Method Room Air 01/23/24 07:56 BMI result Body Mass Index 20.7 Appearance: Alert. nonverbal appears at baseline from most recent visit No acute distress. Eyes: Pupils equal, round and reactive to light. ENT: Pharynx normal. Neck: Normal inspection. Neck supple. CVS: Normal heart rate and rhythm. Pulses normal. Respiratory: No respiratory distress. Breath sounds normal. Abdomen: soft but distended I do not elicit a grimace. : blood noted in SPC tube site itself is c/d/i Skin: Skin warm and dry. Normal skin color. Normal skin turgor. Extremities: No lower extremity edema. 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 VS stable Differential Diagnosis Differential Diagnoses: The differential diagnosis associated with the presentation includes ileus, SBO, obstruction renal, chronic hematuria Admission/Observation Consideration of admission/observation: Escalation of care including admission/observation considered ileus again needs rectal tube Consult Healthcare Provider Management of the patient was discussed with: Hospitalist (will admit) Lab Data [facility] Lab Attestation statement: I reviewed the patient's lab results. 01/23/24 06:29 01/23/24 06:29 Labs: Lab Results 01/23/24 01/23/24 Range/Units 06:29 07:55 WBC 4.7 L (4.8-10.8) X10*3/uL RBC 3.23 L (4.60-5.80) X10*6/uL Hgb 10.6 L (14.0-18.0) g/dl Hct 30.8 L (42.0-52.0) % MCV 95.4 (80.0-98.0) fL MCH 32.8 (27.0-33.0) pg MCHC 34.4 (31.0-36.0) g/dl RDW 14.0 (11.0-16.0) % Plt Count 149 L (160-400) X10*3/uL MPV 8.8 L (9.4-12.4) fL Immature Gran % (Auto) 0.4 (0.0-0.4) % Neut % (Auto) 51.5 (45-73) % Lymph % (Auto) 28.5 (20-40) % [place] % (Auto) 12.7 H (2-11) % Eos % (Auto) 6.5 H (0-4) % Baso % (Auto) 0.4 (0-2) % Lymph # (Auto) 1.4 (1.2-4.9) X10*3/uL [place] # (Auto) 0.6 (0.1-1.2) X10*3/uL Eos # (Auto) 0.3 (0.0-0.4) X10*3/uL Baso # (Auto) 0.0 (0.0-0.2) X10*3/uL Abs Immat Gran (auto) 0.02 (0.00-0.03) X10*3/uL Absolute Neuts (auto) 2.4 (2.0-8.3) x10*3/uL Absolute Nucleated RBC 0.000 (0.0-0.012) X10*3/uL Nucleated RBC % (auto) 0.0 (0.0-0.2) /100WBC Sodium 144 (135-145) mmol/L Potassium 3.3 (3.3-5.1) mmol/L Chloride 115 H (96-108) mmol/L Carbon Dioxide 23 (22-29) mmol/L Anion Gap 9 L (12-20) BUN 30 H (9-16) mg/dL Creatinine 1.24 (0.5-1.4) mg/dL Estim Creat Clear Calc 54.9 Estimated GFR 58 Random Glucose 114 (60-115) mg/dL Calcium 8.9 (8.4-10.2) mg/dL Total Bilirubin 0.5 (0.0-1.0) mg/dL AST 27 (5-37) U/L ALT 18 (0-40) U/L Alkaline Phosphatase 106 (39-117) U/L Total Protein 6.3 L (6.5-8.0) g/dL Albumin 2.9 L (3.5-5.0) g/dL Lipase 26 (8-78) U/L Urine Color RED Urine Appearance Turbid Urine pH 5.5 (5.0-9.0) Ur Specific [place] 1.025 (1.005-1.025) Urine Protein 100 (2+) H (Neg-Trace) mg/dL Urine Glucose (UA) Negative (Negative) mg/dL Urine Ketones Negative (Negative) mg/dL Urine Blood Large (3+) H (Negative) Urine Nitrite Negative (Negative) Ur Leukocyte Esterase Moderate (2+) H (Negative) Urine RBC >20 H (0-2) /HPF Urine WBC >50 H (0-5) /HPF Ur Squamous Epith Cells 0-2 (0-2) /HPF Urine Bacteria Trace (None Seen) Hyaline Casts 0-2 (0-2) /LPF Independent Interpretation I performed an independent interpretation of an: EKG and CT Scan (ileus) Interpretation: Rate: 49 Rhythm: sinus bradycardia [place]: normal Normal P waves. Normal DAVID. Normal QRS complex. ST T wave : no [place], inverted t waves III qTC: 375 prior studies: slower but no acute ischemia The study has been interpreted contemporaneously by me. . Radiology Impression Discussion of test interpretation with radiology: I have reviewed the radiologist's reading. Independent Historian Clinical information obtained from an independent historian. History obtained from or confirmed by: EMS External Record Review External record reviewed: Inpatient record and Outpatient record Discharge Plan Discharge Clinical Impression: Ileus, Hematuria Patient Disposition: Admitted As Inpatient Prescriptions: No Action (DME) wet wipes See Rx Instructions .ROUTE .MEDSUPPLY Qty: 5 3RF Rx Instructions: As directed levetiracetam 100 mg/mL solution 2.5 ml PO BID acetaminophen 325 mg Tablet 650 mg PO Q4H PRN (Reason: fever/pain) calcium carbonate-vitamin D3 600 mg-5 mcg (200 unit) Tablet 1 tab PO BID magnesium hydroxide [Milk of Magnesia] 400 mg/5 mL Suspension 30 ml PO DAILY PRN (Reason: No BM in 3 Days) bisacodyl 10 mg Suppository 10 mg TX DAILY PRN (Reason: If no BM in 8 hours after use of MoM) Fleet Enema 19-7 gram/118 mL Enema 118 ml TX DAILY PRN (Reason: If no BM in 8 hours after use of Bisacodyl) magnesium citrate Solution 150 ml PO DAILY PRN (Reason: No BM in 12 hrs) oxycodone 5 mg Tablet 5 mg PO Q6H PRN (Reason: Pain) potassium chloride 20 mEq Packet 20 meq PO BID ferrous sulfate 325 mg (65 mg iron) Tablet 325 mg PO DAILY multivitamin Tablet 1 tab PO DAILY psyllium Powder 1 ea PO BEDTIME Rx Instructions: mix into at least 8 oz of water or juice before administering sodium hypochlorite 0.125 % Solution 1 appl TOPICAL BEDTIME Rx Instructions: APPLY TO COCCYX WOUND TOPICALLY EVERY WOOD FLOOR REFINISHER FOR WOUND CARE TO PRESSURE AREA, CLEANSE WITH DAKIN'S SOLUTION, PACK WITH HYDRAFERA BLUE, COVER WITH DRY CLEAN DRESSING DAILY. levofloxacin 750 mg tablet 750 mg PO DAILY Qty: 2 0RF acetaminophen [Tylenol] 325 mg Tablet 650 mg PO BEDTIME acetic acid 0.25 % Solution 50 ml IRRIGATION TUTHSA@2100 Rx Instructions: for urinary catheter flush losartan 100 mg tablet 100 mg PO DAILY 90 Days Qty: 90 4RF gabapentin 300 mg capsule 300 mg PO BEDTIME 30 Days Qty: 30 0RF (DME) miscellaneous medical supply Misc See Rx Instructions .ROUTE .MEDSUPPLY Qty: 1 0RF Rx Instructions: RUE resting hand Splint/Sling As directed, Dx: G81.91, I67.89, duration 999 days/life time tamsulosin 0.4 mg capsule 0.4 mg PO BEDTIME 90 Days Qty: 90 1RF Xarelto 20 mg tablet 20 mg PO DAILY atorvastatin 80 mg tablet 80 mg PO DAILY ascorbic acid (vitamin C) 1,000 mg tablet 1,000 mg PO DAILY 90 Days Qty: 90 1RF methenamine hippurate 1 gram tablet 1 g PO daily 90 Days Qty: 90 1RF Print Language: Tanzanian
[2024-01-23 08:17] LABS: Appearance Urine Turbid; Color Urine RED; Glucose Urine UA Negative (Negative); Leukocyte Esterase Urine Moderate (2+) (Negative); Nitrite Urine Negative (Negative); PH 5.5 (5.0-9.0); UMIC TRIGGER UACC YES; Urine Blood Large (3+) (Negative); Urine Ketones Negative (Negative); Urine Protein 100 (2+) mg/dL (Neg-Trace)
[2024-01-23 08:19] LABS: Specific Gravity - Urine 1.025 (1.005-1.025)
[2024-01-23 08:32] LABS: Bacteria Urine Trace (None Seen); Hyaline Casts Urine 0-2 /LPF (0-2); RBC Urine >20 /HPF (0-2); Squamous Epithelial Cell Urine 0-2 /HPF (0-2); UACC Culture Trigger YES; WBC Urine >50 /HPF (0-5)
--- NOTE | 2024-01-23 08:38 | PC.NURSE ---
Manual irriagation performed per MD verbal orders. Urine output noted light pink with some minor sediment. New drainage bag applied after manual flush of 350ml sterile water.
--- NOTE | 2024-01-23 11:00 | PC.NURSE ---
MD pat ok'ed delay of rectal tube insertion as none available in ER at this time.
--- NOTE | 2024-01-23 11:03 | PHA.MEDREC ---
Pharmacy Consult ? Medication Reconciliation Pharmacy has completed the medication reconciliation. Pt discharged 01/20. Utilized discharge packet to confirm meds.
--- NOTE | 2024-01-23 12:26 | P.HPHOSP_ITS ---
History of Present Illness Date of Service: 01/23/24 Attending physician on admission: Demetri De La Paz Chief Complaint: Abdominal distention Pt is a 68-year-old male with a PMH significant for?vascular dementia, CVA with R-sided hemiparesis, neurogenic bladder with hx of FQ-sensitive Pseudomonas UTI and chronic SPC, stage 4 sacral decubitus ulcer, hx C. difficile colitis, seizure disorder, HTN, HLD, and pAF on rivaroxaban who presents to the ED from [facility] for evaluation of abdominal distention with concerns of bowel obstruction. Patient has nonverbal and bed-bound at baseline. HPI thus obtained from chart and provider review. Patient apparently had last bowel movement yesterday on 01/21. Patient was recently discharged this facility 2 days prior on 01/20 where he was treated for ureterolithiasis, UTI, and rectal ileus. Urology was consulted and ureteral stent was considered, our given position of staghorn calculus with likely limit adequate placement so patient was treated conservatively without surgical intervention. Was treated with levofloxacin for complicated UTI with end date today 01/22. GI was consulted for ileus which resolved with rectal tube placement. In the ED today pt's vitals stable and WNL. Labs were significant for creatinine of 1.24 (increased from 1.06 on 01/20), otherwise grossly unremarkable and around baseline for patient. Chronic normocytic anemia around baseline. No leukocytosis. No significant electrolyte abnormalities. UA showing gross hematuria and consistent with chronic colonization. CT of abdomen and pelvis found severely distended colon with air, likely indicating ileus. No evidence of SBO or LBO. Also redemonstrated staghorn calculus with additional bilateral ureteral stones up to 1.1 cm on right and 0.6 cm on left without hydronephrosis or hydroureter. EKG demonstrated sinus bradycardia of 49 without evidence of significant ST elevations or depressions. Pt will be admitted to the hospital for treatment and further evaluation of ileus. Review of Systems 2 Review of Systems: Yes Unobtainable due to mental status [facility] Medical History Calculi, ureter Osteomyelitis of sacrum Decubitus ulcer Acute UTI Seizure disorder Chronic constipation Decubitus ulcer of sacral area Osteomyelitis Septic shock C. difficile diarrhea COVID-19 HTN (hypertension) High cholesterol Stroke UTI (urinary tract infection) due to urinary indwelling Finley catheter Essential hypertension Hemiplegia of right dominant side due to acute cerebrovascular disease Cerebrovascular accident (CVA) involving left cerebral hemisphere History of CVA (cerebrovascular accident) HTN (hypertension) Paroxysmal atrial fibrillation Family History Father No problems noted. Mother No problems noted. Surgical History No pertinent past surgical history Social History Household Members: Unknown / Unable to assess Household Members Other:: SNF Housing: Unknown / Unable to assess Are you a primary career center director to a significant other at home: No Do you presently have visiting nurse or other home services: No Unable to assess alcohol history related to: Unable to respond Alcohol intake: former Comment: patient sleeping Patient Tobacco Use Status: Tobacco use Unknown Second Hand Smoke Exposure: No Advance Directives: Yes Advance Directives on File: Yes Advance Directives Date on File: 07/25/21 Do you have a plan to hurt others: No Plan service: No Current occupational status: disabled Meds Allergies Allergy/AdvReac Type Severity Reaction Status Date / Time No Known Allergies Allergy Verified 01/23/24 05:42 [No Known Allergies*] Active Medications: Current Medications Acetaminophen (Acetaminophen 325 Mg Tablet) 650 mg PO Q6H PRN PRN Reason: Pain, Mild (Pain Scale 1-3), fever or headache Benzonatate (Benzonatate 100 Mg Capsule) 100 mg PO TID PRN PRN Reason: Cough Calcium Carbonate (Calcium Carbonate 750 Mg Tab.Chew) 750 mg PO Q4H PRN PRN Reason: Heartburn Lactated Ringer's (Lr) 1,000 mls @ 100 mls/hr IVCONT .Q10H KEE Levofloxacin (Levaquin) 750 mg in 150 mls @ 100 mls/hr IV ONCE ONE Stop: 01/23/24 13:50 Magnesium Hydroxide (Milk Of Magnesia 30 Ml Oral.Susp) 30 ml PO DAILY PRN PRN Reason: Constipation Melatonin (Melatonin 3 Mg Tablet) 6 mg PO BEDTIME PRN PRN Reason: Insomnia Ondansetron HCl (Ondansetron Hcl 4 Mg/2 Ml Vial) 4 mg IVPUSH Q8H PRN PRN Reason: Nausea and Vomiting Sodium Chloride (0.9 % Sodium Chloride Flush 3 Ml Syringe) [facility] Medications ?Medication ?Instructions ?Recorded ?Confirmed ?Last Taken ?Type acetaminophen 325 mg tablet 650 mg PO Q4H PRN fever/pain 02/16/21 01/23/24 Unknown History bisacodyl 10 mg rectal suppository 10 mg [place] DAILY PRN If no BM in 8 02/16/21 01/23/24 Unknown History hours after use of MoM calcium 600 mg (as 1 tab PO BID 02/16/21 01/23/24 02/14/22 History carbonate)-vitamin D3 5 mcg (200 unit) tablet magnesium hydroxide 400 mg/5 mL 30 ml PO DAILY PRN No BM in 3 Days 02/16/21 01/23/24 Unknown History oral suspension (Milk of Magnesia) levetiracetam 100 mg/mL oral 2.5 ml PO BID 02/26/21 01/23/24 02/14/22 History solution atorvastatin 80 mg tablet 80 mg PO DAILY 01/26/22 01/23/24 02/14/22 History rivaroxaban 20 mg tablet (Xarelto) 20 mg PO DAILY 01/26/22 01/23/24 02/14/22 History magnesium citrate 150 ml PO DAILY PRN No BM in 12 hrs 02/15/22 01/23/24 Unknown History oxycodone 5 mg tablet 5 mg PO Q6H PRN Pain 02/15/22 01/23/24 Unknown History sodium phosphates 19 gram-7 118 ml [place] DAILY PRN If no BM in 8 02/15/22 01/23/24 Unknown History gram/118 mL enema (Fleet Enema) hours after use of Bisacodyl acetaminophen 325 mg tablet 650 mg PO BEDTIME 10/03/22 01/23/24 Unknown History (Tylenol) acetic acid 0.25 % irrigation 50 ml irrigation TUTHSA@2100 10/03/22 01/23/24 Unknown History solution ferrous sulfate 325 mg (65 mg 325 mg PO DAILY 12/22/22 01/23/24 Unknown History iron) tablet potassium chloride 20 mEq oral 20 meq PO BID 12/22/22 01/23/24 Unknown History packet multivitamin 1 tab PO DAILY 01/18/24 01/23/24 Unknown History psyllium 1 ea PO BEDTIME 01/18/24 01/23/24 Unknown History sodium hypochlorite 0.125 % 1 appl topical BEDTIME 01/18/24 01/23/24 Unknown History solution Physical Exam 2 Vital Signs and Narrative: Vital Signs: Last Vital Signs Temp 98 F 01/23/24 06:31 Pulse 52 01/23/24 11:34 Resp 12 01/23/24 11:34 BP 128/76 01/23/24 11:34 Pulse Ox 98 01/23/24 11:34 O2 Del Method Room Air 01/23/24 11:34 BMI result Body Mass Index 20.7 General: Awake and alert, nonverbal and unable to follow commands at baseline, in no acute distress Resp: CTA bilaterally CVS: S1, S2, RRR GI: +BS in LLQ, hypoactive elsewhere. No tenderness appreciated. Abdomen markedly distended Skin: Warm, dry Neuro: Right hemiparesis, right hand contracted Extremities: No edema Results Labs 01/23/24 06:29 01/23/24 06:29 Labs: Laboratory Results - last 24 hr 01/23/24 01/23/24 06:29 07:55 MCV 95.4 MCH 32.8 MCHC 34.4 RDW 14.0 Plt Count 149 L MPV 8.8 L Immature Gran % (Auto) 0.4 Neut % (Auto) 51.5 Lymph % (Auto) 28.5 [place] % (Auto) 12.7 H Eos % (Auto) 6.5 H Baso % (Auto) 0.4 Lymph # (Auto) 1.4 [place] # (Auto) 0.6 Eos # (Auto) 0.3 Baso # (Auto) 0.0 Abs Immat Gran (auto) 0.02 Absolute Neuts (auto) 2.4 Absolute Nucleated RBC 0.000 Nucleated RBC % (auto) 0.0 Anion Gap 9 L Estim Creat Clear Calc 54.9 Estimated GFR 58 Random Glucose 114 Calcium 8.9 Total Bilirubin 0.5 AST 27 ALT 18 Alkaline Phosphatase 106 Total Protein 6.3 L Albumin 2.9 L Lipase 26 Urine Color RED Urine Appearance Turbid Urine pH 5.5 Ur Specific [place] 1.025 Urine Protein 100 (2+) H Urine Glucose (UA) Negative Urine Ketones Negative Urine Blood Large (3+) H Urine Nitrite Negative Ur Leukocyte Esterase Moderate (2+) H Urine RBC >20 H Urine WBC >50 H Ur Squamous Epith Cells 0-2 Urine Bacteria Trace Hyaline Casts 0-2 Imaging Radiologist's Impressions: Impressions Abdomen/Pelvis CT 01/23/24 08:03 IMPRESSION: 1. Severely distended colon with air. Moderate stool within the ascending colon. Findings could indicate ileus. No evidence of obstruction. No bowel wall thickening or inflammatory change. No small or large bowel obstruction. Unremarkable appendix. 2. Bilateral renal stones with a large stone within the right renal pelvis measuring up to 5.7 cm. Additional bilateral ureteral stones measuring up to 1.1 cm on the right and 0.6 cm on the left. No hydronephrosis or hydroureter. 3. Suprapubic catheter in place within the urinary bladder. No bladder wall thickening or associated inflammatory change. 4. No intra-abdominal lymphadenopathy or ascites. Fleischner guidelines were followed. Electronically signed by: Cam Darling MD 01/23/2024 09:36 AM [facility] [employer] Workstation: [id number] [place] Assessment and Plan (1) Ileus: Status: Acute Plan Pt is a 68-year-old male with a PMH significant for?vascular dementia, CVA with R-sided hemiparesis, neurogenic bladder with hx of FQ-sensitive Pseudomonas UTI and chronic SPC, stage 4 sacral decubitus ulcer, hx C. difficile colitis, seizure disorder, HTN, HLD, and pAF on rivaroxaban who presents to the ED from [facility] for evaluation of abdominal distention with concerns of bowel obstruction. Pt will be admitted to the hospital for treatment and further evaluation of ileus. Ileus Pt with abdominal distention, last BM yesterday CT showing severely distended colon concerning for ileus Patient with recent rectal ileus last week on 01/18/2024, resolved with rectal tube NPO, IVF General surgery consult Hematuria Pt has had bright red blood noted in finley collection Hold Xarelto for now Monitor urine output Consider CBI if hematuria persists Follow CBC Ureterolithiasis Seen by urology last week, unable to place stent due to staghorn calculi CT today without hydronephrosis or hydroureter Abnormal UA Patient treated for UTI during last admission, discharged on levofloxacin 750 mg set to be completed today We will give 1 last dose of levofloxacin 750 IV Sacral decubitus ulcer Care as per wound care note from 01/18 Patient positioning q.2h, air loss mattress CVA/HLD Continue statin Paroxysmal AFib Hold Xarelto HTN Continue losartan Seizure disorder Continue levetiracetam Full Code Attending:?Dr. De La Paz DVT Prophylaxis: Pneumatic compression due to hematuria As patient is unable to tolerate p.o., he will require a hospitalization of at least two nights for treatment of abdominal distention in the setting of ileus with bowel rest and IVF. Quality Stroke Does the patient have a stroke diagnosis?: No VTE Prior VTE?: No VTE Risk Level:: Medical - moderate - high VTE Device Contraindication: N/A - Device Ordered VTE Drug Contraindication: Treatment Not Indicated
--- NOTE | 2024-01-23 15:00 | PC.NURSE ---
Per Amilcar BRANHAM, pt does not need blood cultures prior to IV levaquin.
[2024-01-23] MEDS: levoFLOXacin/D5W 750 MG/150 ML PIGGYBACK 100 MG IV (15:01)
[2024-01-23] MEDS: Lactated Ringers 1,000 ML 100 ML IVCONT (15:01)
--- NOTE | 2024-01-23 23:20 | P.CONGS_ITS ---
History of Present Illness Consult details Consult date: 01/23/24 Reason for consult: ischemic leg Narrative: 68 Year old male nonverbal s/p cva bedbound and with multiple issues lives in a correction known to have colonic ileus which treated with rectal tube - just here few days ago with kidney stone obstructing and went to the OR, treated for uti and dc. now returning with abdo distension and w/u showing enlarged colon throughout with colonic ileus no true obstruction - pt non verbal not complaining of any pain. has been treated for uti and has suprpubic catheter. Review of Systems 2 Review of Systems: Yes Unobtainable due to mental status PMFSH Past Medical History Medical History Calculi, ureter Osteomyelitis of sacrum Decubitus ulcer Acute UTI Seizure disorder Chronic constipation Decubitus ulcer of sacral area Osteomyelitis Septic shock C. 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 Mother No problems noted. Surgical History Surgical History No pertinent past surgical history Social History Social History Household Members: Unknown / Unable to assess Household Members Other:: SNF Housing: Care Home Are you a primary caregivers non medical to a significant other at home: No Do you presently have visiting nurse or other home services: No Unable to assess alcohol history related to: Unable to respond Alcohol intake: former Comment: patient sleeping Patient Tobacco Use Status: Tobacco use Unknown Second Hand Smoke Exposure: No Advance Directives Date on File: 07/25/21 service: No Current occupational status: disabled Meds Allergies Allergy/AdvReac Type Severity Reaction Status Date / Time No Known Allergies Allergy Verified 01/23/24 05:42 [No Known Allergies*] Active Medications: Current Medications Acetaminophen (Acetaminophen 325 Mg Tablet) 650 mg PO Q6H PRN PRN Reason: Pain, Mild (Pain Scale 1-3), fever or headache Benzonatate (Benzonatate 100 Mg Capsule) 100 mg PO TID PRN PRN Reason: Cough Calcium Carbonate (Calcium Carbonate 750 Mg Tab.Chew) 750 mg PO Q4H PRN PRN Reason: Heartburn Lactated Ringer's (Lr) 1,000 mls @ 100 mls/hr IVCONT .Q10H COUNTS INCLUDE 234 BEDS AT THE [facility] Last Admin: 01/23/24 15:01 Dose: 100 mls/hr Magnesium Hydroxide (Milk Of Magnesia 30 Ml Oral.Susp) 30 ml PO DAILY PRN PRN Reason: Constipation Melatonin (Melatonin 3 Mg Tablet) 6 mg PO BEDTIME PRN PRN Reason: Insomnia Ondansetron HCl (Ondansetron Hcl 4 Mg/2 Ml Vial) 4 mg IVPUSH Q8H PRN PRN Reason: Nausea and Vomiting Sodium Chloride (0.9 % Sodium Chloride Flush 3 Ml Syringe) 3 ml IVFLUSH QSHIFT COUNTS INCLUDE 234 BEDS AT THE [facility] Last Admin: 01/23/24 20:18 Dose: Not Given Home Medications ?Medication ?Instructions ?Recorded ?Confirmed ?Last Taken ?Type acetaminophen 325 mg tablet 650 mg PO Q4H PRN fever/pain 02/16/21 01/23/24 Unknown History bisacodyl 10 mg rectal suppository 10 mg KS DAILY PRN If no BM in 8 02/16/21 01/23/24 Unknown History hours after use of MoM calcium 600 mg (as 1 tab PO BID 02/16/21 01/23/24 02/14/22 History carbonate)-vitamin D3 5 mcg (200 unit) tablet magnesium hydroxide 400 mg/5 mL 30 ml PO DAILY PRN No BM in 3 Days 02/16/21 01/23/24 Unknown History oral suspension (Milk of Magnesia) levetiracetam 100 mg/mL oral 2.5 ml PO BID 02/26/21 01/23/24 02/14/22 History solution atorvastatin 80 mg tablet 80 mg PO DAILY 01/26/22 01/23/24 02/14/22 History rivaroxaban 20 mg tablet (Xarelto) 20 mg PO DAILY 01/26/22 01/23/24 02/14/22 History magnesium citrate 150 ml PO DAILY PRN No BM in 12 hrs 02/15/22 01/23/24 Unknown History oxycodone 5 mg tablet 5 mg PO Q6H PRN Pain 02/15/22 01/23/24 Unknown History sodium phosphates 19 gram-7 118 ml KS DAILY PRN If no BM in 8 02/15/22 01/23/24 Unknown History gram/118 mL enema (Fleet Enema) hours after use of Bisacodyl acetaminophen 325 mg tablet 650 mg PO BEDTIME 10/03/22 01/23/24 Unknown History (Tylenol) acetic acid 0.25 % irrigation 50 ml irrigation TUTHSA@2100 10/03/22 01/23/24 Unknown History solution ferrous sulfate 325 mg (65 mg 325 mg PO DAILY 12/22/22 01/23/24 Unknown History iron) tablet potassium chloride 20 mEq oral 20 meq PO BID 12/22/22 01/23/24 Unknown History packet multivitamin 1 tab PO DAILY 01/18/24 01/23/24 Unknown History psyllium 1 ea PO BEDTIME 01/18/24 01/23/24 Unknown History sodium hypochlorite 0.125 % 1 appl topical BEDTIME 01/18/24 01/23/24 Unknown History solution Physical Exam 2 Vital Signs: Vital Signs: Last Vital Signs Temp 98.9 F 01/23/24 19:30 Pulse 58 01/23/24 19:30 Resp 18 01/23/24 19:30 BP 165/78 H 01/23/24 19:30 Pulse Ox 97 01/23/24 19:30 O2 Del Method Room Air 01/23/24 19:30 BMI result Body Mass Index 23.5 GI: Other: abdomen soft seemingly nontender, distended but with some bowel sounds Results Labs 01/23/24 06:29 01/23/24 06:29 Labs: Abnormal lab results 01/23/24 01/23/24 Range/Units 06:29 07:55 WBC 4.7 L (4.8-10.8) X10*3/uL RBC 3.23 L (4.60-5.80) X10*6/uL Hgb 10.6 L (14.0-18.0) g/dl Hct 30.8 L (42.0-52.0) % Plt Count 149 L (160-400) X10*3/uL MPV 8.8 L (9.4-12.4) fL [place] % (Auto) 12.7 H (2-11) % Eos % (Auto) 6.5 H (0-4) % Chloride 115 H (96-108) mmol/L Anion Gap 9 L (12-20) BUN 30 H (9-16) mg/dL Total Protein 6.3 L (6.5-8.0) g/dL Albumin 2.9 L (3.5-5.0) g/dL Urine Protein 100 (2+) H (Neg-Trace) mg/dL Urine Blood Large (3+) H (Negative) Ur Leukocyte Esterase Moderate (2+) H (Negative) Urine RBC >20 H (0-2) /HPF Urine WBC >50 H (0-5) /HPF Short CBC 01/23/24 Range/Units 06:29 WBC 4.7 L (4.8-10.8) X10*3/uL Hgb 10.6 L (14.0-18.0) g/dl Hct 30.8 L (42.0-52.0) % Plt Count 149 L (160-400) X10*3/uL BMP 01/23/24 06:29 Sodium 144 Potassium 3.3 Chloride 115 H Carbon Dioxide 23 BUN 30 H Creatinine 1.24 Calcium 8.9 Liver Function 01/23/24 Range/Units 06:29 Total Bilirubin 0.5 (0.0-1.0) mg/dL AST 27 (5-37) U/L ALT 18 (0-40) U/L Alkaline Phosphatase 106 (39-117) U/L Albumin 2.9 L (3.5-5.0) g/dL Urine 01/23/24 Range/Units 07:55 Urine Color RED Urine Appearance Turbid Urine pH 5.5 (5.0-9.0) Ur Specific [place] 1.025 (1.005-1.025) Urine Protein 100 (2+) H (Neg-Trace) mg/dL Urine Glucose (UA) Negative (Negative) mg/dL All other labs normal. Imaging Abdomen CT scan report/results: report reviewed and image reviewed CT scan - pelvis: report reviewed and image reviewed Additional studies: Chart - [facility] ? Diagnostics Subcategory All Activity ??:?? All Time ??:?? All Subcategories Filter Laboratory Imaging Microbiology Pathology Blood Bank Tests Cardiovascular Other Specialty DATE TYPE STATUS REF RANGE/AUTHOR Hx Today 08:03 Abdomen/Pelvis CT Signed Cam Darling 01/19/24 12:08 KUB X-Ray Signed Cam Darling 01/18/24 05:44 Abdomen/Pelvis CT Signed Donald Asif 10/04/23 21:31 Abdomen/Pelvis CT Signed Katia Pinto 02/26/23 13:10 Abdomen/Pelvis CT Signed Deon Barragan 12/22/22 02:29 Abdomen/Pelvis CT Signed Neal Betancourt 10/03/22 12:42 Abdomen/Pelvis CT Signed Alize Ellison 10/03/22 10:17 Abdomen X-Ray Signed Alize Ellison 02/14/22 14:[address] Signed AntoinePrasanta 02/14/22 14:42 Abdomen/Pelvis CT Signed AntoinePrasanta 02/14/22 12:49 Chest X-Ray Signed AntoinePrasanta 01/17/22 11:46 Abdomen/Pelvis CT Signed Deon Barragan 06/25/21 09:08 Abdomen/Pelvis CT Signed Elie Colvin 06/23/21 14:33 Chest X-Ray Signed Bay Schultzanta 02/19/21 12:45 Sacrum/Coccyx MRI Signed Zion Bush 02/19/21 11:13 KUB X-Ray Signed Zion Bush 02/15/21 22:[address] Signed Donald Little 02/15/21 21:04 Chest X-Ray Signed Zion High 05/01/20 12:22 Chest X-Ray Signed Zion Bush 04/27/20 14:20 Abdomen Ultrasound Signed LaurelDeon 04/25/20 20:[address] Signed Saurav Fall 04/25/20 17:07 Chest X-Ray Signed Ryan Calzada 04/15/20 20:42 Chest X-Ray Signed Ricardo Jeter 03/04/20 14:34 Modified Barium Swallow Signed Alize Ellison Efrain Acute 68, M?1955 MRN#? [id number] ADM IN,?HO.S3??357?-1? 6ft 173lb 4.533oz BSA: 2.00m? BMI: 23.5kg/m? Acc#? [id number] Full Code Historical Visits Allergies No Known Allergies (No Known Allergies*) Problems ? ONSET Hematuria Ileus Adynamic ileus Calculi, ureter Staghorn calculus Pyelonephritis of right kidney Hydronephrosis with renal and ureteral calculous obstruction Acute UTI Mechanical complication of suprapubic catheter Kidney calculi Acute UTI Stage III pressure ulcer Complicated urinary tract infection Osteomyelitis Urinary retention with incomplete bladder emptying UTI (urinary tract infection) due to urinary indwelling Walker catheter Acute UTI C. 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 Resp 18? Temp 98.9 F? O2 Sat 97? Delivery Room Air? Home Meds Not Confirmed Prescription Monitoring Program Total 30 MME/Day MEDICATIONS (INSTRUCTIONS) LAST TAKEN Active acetaminophen 650 [id number]/pain Unknown acetaminophen [Tylenol] 650 mgPOBEDTIME Unknown acetic acid 50 mlirrigationTUTHSA@2100 Unknown ascorbic acid (vitamin C) 1,000 mg tablet 1,000 [id number] days#90 tabs Unknown atorvastatin 80 mg tablet 80 mgPODAILY Unknown bisacodyl 10 mgPRDAILYPRNIf no BM in 8 hours after use of MoM Unknown calcium carbonate-vitamin D3 1 tabPOBID Unknown ferrous sulfate 325 mgPODAILY Unknown Fleet Enema 118 mlPRDAILYPRNIf no BM in 8 hours after use of Bisacodyl Unknown gabapentin 300 mg capsule 300 [id number] days#30 caps Unknown levetiracetam 2.5 mlPOBID Unknown losartan 100 mg tablet 100 [id number] days#90 tabs Unknown magnesium citrate 150 mlPODAILYPRNNo BM in 12 hrs Unknown magnesium hydroxide [Milk of Magnesia] 30 mlPODAILYPRNNo BM in 3 Days Unknown methenamine hippurate 1 gram tablet 1 [id number] days#90 tabs Unknown multivitamin 1 tabPODAILY Unknown oxycodone 5 [id number] Unknown 30 MME/Day potassium chloride 20 meqPOBID Unknown psyllium 1 eaPOBEDTIME Unknown rivaroxaban 20 mg tablet 20 mgPODAILY Unknown sodium hypochlorite 1 appltopicalBEDTIME Unknown tamsulosin 0.4 mg capsule 0.4 [id number] days#90 caps Unknown DME/Medical Supplies ??miscellaneous medical supply ??wet wipes ?Not Included in Conflicts My Widget No Data to Display Diagnostics Reports Wyatt Castillo??68??M??1955 ? Allergy/Adv: No Known Allergies (More??) Close Abdomen/Pelvis CT (Signed) Cam Darling - 01/23/24 KUB X-Ray (Signed) Cam Darling - 01/19/24 Abdomen/Pelvis CT (Signed) Donald Asif - 01/18/24 Abdomen/Pelvis CT (Signed) Katia Pinto - 10/04/23 Abdomen/Pelvis CT (Signed) Deon Barragan - 02/26/23 Abdomen/Pelvis CT (Signed) Neal Betancourt - 12/22/22 Abdomen/Pelvis CT (Signed) Alize Ellison - 10/03/22 Abdomen X-Ray (Signed) Alize Ellison - 10/03/[address] (Signed) Zina Schultz - 02/14/22 Abdomen/Pelvis CT (Signed) Antoine,Bayanta - 02/14/22 Chest X-Ray (Signed) Karann,Prasanta - 02/14/22 Abdomen/Pelvis CT (Signed) Deon Barragan - 01/17/22 Abdomen/Pelvis CT (Signed) Elie Colvin - 06/25/21 Chest X-Ray (Signed) Karann,Prasanta - 06/23/21 Sacrum/Coccyx MRI (Signed) Zion Bush - 02/19/21 KUB X-Ray (Signed) Zion Bush - 02/19/[address] (Signed) Donald Little - 02/15/21 Chest X-Ray (Signed) Zion High - 02/15/21 Chest X-Ray (Signed) Zion Bush - 05/01/20 Abdomen Ultrasound (Signed) Deon Barragan - 04/27/[address] (Signed) Juan DavidSaurav - 04/25/20 Chest X-Ray (Signed) Ryan Calzada - 04/25/20 Chest X-Ray (Signed) Ricardo Jeter - 04/15/20 Modified Barium Swallow (Signed) Alize Ellison - 03/04/20 Launch?Image [place] [id number] CT Scan Report Signed Patient: Wyatt Castillo MR#: [id number] : 1955 Acct:[id number] Age/Sex: 68 / M ADM Date: 01/23/24 Loc: HO.ED Attending Dr: Ordering Physician: Jennifer Gardiner DO Date of Service: 01/23/24 Procedure(s): CT abdomen pelvis wo IV con Accession Number(s): [id number] cc: Jennifer Gardiner DO; Physician,Unknown ~ EXAMINATION: CT ABDOMEN AND PELVIS WITHOUT CONTRAST CLINICAL INFORMATION: Distention. No bowel movement. COMPARISON: Abdominal radiograph dated 01/19/[address] abdomen/pelvis dated 01/18/2024. TECHNIQUE: Multidetector volumetric imaging was performed from the superior aspect of the liver through the pubic symphysis. Sagittal and coronal reformatted images were obtained on the technologist's workstation. This CT examination was performed using dose optimization techniques as appropriate, variously including the following: *Automated exposure control *Adjustment of mA and/or kV according to patient size (this includes techniques or standardized protocols for targeted exams where dose is matched to indication/reason for exam; i.e. extremities or head) *Use of iterative reconstruction technique DLP: 897 mGy-cm FINDINGS: LUNG BASES: The visualized lung bases are unremarkable. LIVER, GALLBLADDER, AND BILIARY TREE: The liver is normal in size, shape, and attenuation. No focal hepatic lesion or biliary ductal dilatation is present. Nondistended and unremarkable. PANCREAS: Unremarkable. SPLEEN: Unremarkable. ADRENAL GLANDS: Unremarkable. KIDNEYS AND URETERS: Redemonstration of bilateral renal cortical atrophy. Large stone within the right renal pelvis measuring up to 5.7 cm in craniocaudal dimension and approximately 528 Hounsfield units. This is located approximately 7.8 cm from the posterior axillary line. Additional more proximal right-sided renal stones measuring up to 1.1 cm in the mid/lower pole. There is a proximal right ureteral stone which measures up to 0.8 cm and is located at the level of the L3-L4 intervertebral disc. More distally within the right ureter, there are 2 stones measuring up to 1.1 and 0.7 cm in greatest dimension and located approximately 5.1 cm proximal to the ureterovesicular junction. No right-sided hydroureteronephrosis. Right peripelvic stranding adjacent to the large pelvic stone, similar when compared to the prior CT. Distal left ureteral stone measuring up to 0.6 cm and located approximately 2.1 cm proximal to the left ureterovesicular junction. More proximal left ureteral stone measuring up to 0.3 cm at the level of the L3 vertebral body. No left-sided hydroureteronephrosis. Additional left renal pelvic and mid pole stones measuring up to 0.2 cm. BLADDER: Nondistended with a suprapubic catheter in place. GASTROINTESTINAL TRACT: The colon is severely distended with air. There is moderate stool within the ascending colon. Trace contrast within the rectum. Nondistended and unremarkable small bowel. No bowel wall thickening or inflammatory change. Unremarkable appendix. PERITONEAL CAVITY: No intra-abdominal free air or free fluid. ABDOMINAL WALL: No significant hernia is appreciated. LYMPH NODES: No lymphadenopathy. VASCULAR: No abdominal aortic dilatation. Atherosclerotic calcifications. PELVIC VISCERA: The prostate and seminal vesicles are unremarkable. OSSEOUS STRUCTURES: No acute osseous abnormality. CT/CT abdomen pelvis wo IV con IMPRESSION: 1. Severely distended colon with air. Moderate stool within the ascending colon. Findings could indicate ileus. No evidence of obstruction. No bowel wall thickening or inflammatory change. No small or large bowel obstruction. Unremarkable appendix. 2. Bilateral renal stones with a large stone within the right renal pelvis measuring up to 5.7 cm. Additional bilateral ureteral stones measuring up to 1.1 cm on the right and 0.6 cm on the left. No hydronephrosis or hydroureter. 3. Suprapubic catheter in place within the urinary bladder. No bladder wall thickening or associated inflammatory change. 4. No intra-abdominal lymphadenopathy or ascites. Fleischner guidelines were followed. Electronically signed by: Cam Darling MD 01/23/2024 09:36 AM [facility] [place] Dictated By: Cam Darling MD Signed By: <Electronically signed by Cam Darling MD in OV> 01/23/24 0936 DD/ 2 TD/TT: 01/23/24807 Senior Formulation Scientist: Assessment and Plan (1) Adynamic ileus: Status: Acute Plan pt with repeated episodes of colonic ileus - at this point cont with plan for rectal tube decompression which seems to work. treat underlying uti and correct electrolytes, if not improving consider neostigmine, colonoscopic decompression. No need for any surgical intervention unless colonic distension gets worse and concern for perforation is had. no evidence of this - seems chronic to his underlying med issues and immobility Procedures Date of Service Date of Service: 01/23/24
[2024-01-24] MEDS: Lactated Ringers 1,000 ML 100 ML IVCONT (00:23)
[2024-01-24 02:56] VITALS: BP 164/74; PULSE 53; RESP 17; TEMP 36; O2SAT 97
[2024-01-24 06:12] LABS: Hematocrit 35.1 % (42.0-52.0); Hemoglobin 11.6 g/dl (14.0-18.0); Mean Corpuscular Hemoglobin 31.6 pg (27.0-33.0); Mean Corpuscular Volume 95.6 fL (80.0-98.0); Platelet Count 127 X10*3/uL (160-400); Red Blood Count 3.67 X10*6/uL (4.60-5.80); Red Cell Distribution Width 13.8 % (11.0-16.0); White Blood Count 5.7 X10*3/uL (4.8-10.8)
[2024-01-24 06:33] LABS: Anion Gap 11 (12-20); Blood Urea Nitrogen 24 mg/dL (9-16); Calcium 8.5 mg/dL (8.4-10.2); Carbon Dioxide 18 mmol/L (22-29); Chloride 117 mmol/L (96-108); Creatinine Clr Calc Pharmacy 83.1; Estimated Glomerular Filt Rate > 60; Glucose Random 83 mg/dL (60-115); Potassium 2.9 mmol/L (3.3-5.1); Sodium 143 mmol/L (135-145)
[2024-01-24] MEDS: Potassium Chloride Packet 20 MEQ PACKET 40 MEQ PO (06:38)
[2024-01-24 07:41] VITALS: BP 165/80; PULSE 62; RESP 18; TEMP 36.7; O2SAT 98
[2024-01-24] MEDS: KCl 20 mEq in 5 % Dex/Lact Rin 20 MEQ/1,000 ML IV.SOLN 100 MEQ IVCONT ×2 (08:59→23:34)
--- NOTE | 2024-01-24 11:14 | MHC.CM.PN ---
PT FROM [facility] WHERE HE WILL RETURN WHEN DCD
--- NOTE | 2024-01-24 11:33 | P.PNIM_ITS ---
Subjective Subjective Date of Service: 01/24/24 Interval History: nonverbal being followed for abdominal distention, CT abdomen and pelvis showed severely distended colon with air no stool output from rectal tube Review of Systems unable to obtain due to mental status Physical Exam 2 Vital Signs: Vital Signs: Last Vital Signs Temp 98.1 F 01/24/24 07:41 Pulse 62 01/24/24 07:41 Resp 18 01/24/24 07:41 BP 165/80 H 01/24/24 07:41 Pulse Ox 98 01/24/24 07:41 O2 Del Method Room Air 01/24/24 07:41 BMI result Body Mass Index 23.5 Const: Other: General awake and alert, non verbal, in no acute distress. Neck supple no JVD. CVS regular rate rhythm, Respiratory lungs clear to auscultation, no respiratory distress Gastrointestinal abdomen soft, non tender, bowel sounds audible, mild distension Extremities no edema Neuro right hemiparesis, right hand contracted stage IV coccyx ulcer, stage II right buttock Walker clear urine Objective Data Active Medications Acetaminophen (Acetaminophen 325 Mg Tablet) 650 mg PO Q6H PRN PRN Reason: Pain, Mild (Pain Scale 1-3), fever or headache Benzonatate (Benzonatate 100 Mg Capsule) 100 mg PO TID PRN PRN Reason: Cough Calcium Carbonate (Calcium Carbonate 750 Mg Tab.Chew) 750 mg PO Q4H PRN PRN Reason: Heartburn Potassium Cl/Dextrose/Lact Ringer's (Kcl 20 Meq In 5 % Dex/Lact Rin) 20 meq in 1,000 mls @ 100 mls/hr IVCONT .Q10H [facility] Last Admin: 01/24/24 08:59 Dose: 100 mls/hr Documented By: FARRAH Magnesium Hydroxide (Milk Of Magnesia 30 Ml Oral.Susp) 30 ml PO DAILY PRN PRN Reason: Constipation Melatonin (Melatonin 3 Mg Tablet) 6 mg PO BEDTIME PRN PRN Reason: Insomnia Ondansetron HCl (Ondansetron Hcl 4 Mg/2 Ml Vial) 4 mg IVPUSH Q8H PRN PRN Reason: Nausea and Vomiting Sodium Chloride (0.9 % Sodium Chloride Flush 3 Ml Syringe) 3 ml IVFLUSH QSHIFT [facility] Last Admin: 01/24/24 07:11 Dose: Not Given Documented By: FARRAH Non-Admin Reason: IV Running Labs 01/24/24 06:01 01/24/24 06:01 Labs: Laboratory Results - last 24 hr 01/24/24 06:01 MCV 95.6 MCH 31.6 MCHC 33.0 RDW 13.8 Plt Count 127 L MPV 9.0 L Absolute Nucleated RBC 0.000 Nucleated RBC % (auto) 0.0 Anion Gap 11 L Estim Creat Clear Calc 83.1 Estimated GFR > 60 Random Glucose 83 Calcium 8.5 Microbiology Microbiology Results: Microbiology 01/23/24 Unknown Urine Culture - Preliminary Urine Other - Suprapubic No growth to date. Assessment and Plan (1) Hematuria: Status: Acute (2) Staghorn calculus: Status: Acute Plan 68-year-old male with a PMH significant for?vascular dementia, CVA with R-sided hemiparesis, neurogenic bladder with hx of FQ-sensitive Pseudomonas UTI and chronic SPC, stage 4 sacral decubitus ulcer, hx C. difficile colitis, seizure disorder, HTN, HLD, and pAF on rivaroxaban who presents to the ED from [facility] for evaluation of abdominal distention with concerns of bowel obstruction. Pt will be admitted to the hospital for treatment and further evaluation of ileus. acute on chronic colonic Ileus abdominal distention improving, rectal tube with no drainage CT showing severely distended colon concerning for ileus recent rectal ileus last week on 01/18/2024, resolved with rectal tube NPO, IVF,kub will discuss further treatment plan with General surgery replete electrolytes, no recurrent acute infections. Hematuria resolved Hold Xarelto for now and resume if no bleeding in next 24 hours stable hematocrit Acute on chronic hypokalemia will replete and follow labs Ureterolithiasis Seen by urology last week, unable to place stent due to staghorn calculi CT today without hydronephrosis or hydroureter Abnormal UA Patient treated for UTI during last admission, discharged on levofloxacin 750 mg , finished course of antibiotics on 01/22 Sacral decubitus ulcer Stage IV /right buttock full-thickness injury Care as per wound care note from 01/18 positioning q.2h, air loss mattress CVA/HLD Continue statin Paroxysmal AFib Hold Xarelto HTN Continue losartan Seizure disorder Continue levetiracetam Full Code DVT Prophylaxis: Pneumatic compression due to hematuria As patient is unable to tolerate p.o., he will require continued inpatient hospitalization requiring IV fluids close electrolyte monitoring and expert consultation. Quality Stroke Does the patient have a stroke diagnosis?: No VTE Prior VTE?: No VTE Risk Level:: Medical - moderate - high VTE Device Contraindication: N/A - Device Ordered VTE Drug Contraindication: Treatment Not Indicated
--- NOTE | 2024-01-24 11:38 | PM.PNGS ---
Subjective Subjective Date of Service: 01/24/24 Interval history: Patient not verbally communicative No events reported Physical Exam Vital Signs: Vital Signs: Last Vital Signs Temp 98.1 F 01/24/24 07:41 Pulse 62 01/24/24 07:41 Resp 18 01/24/24 07:41 BP 165/80 H 01/24/24 07:41 Pulse Ox 98 01/24/24 07:41 O2 Del Method Room Air 01/24/24 07:41 BMI result Body Mass Index 23.5 Const: General: comfortable and no acute distress Resp: Effort & Inspection: normal respiratory effort Cardio: Rate: regular rate GI: Inspection: No distended Palpation (GI): Soft to palpation, not firm and no guarding Objective Data Active Medications Acetaminophen (Acetaminophen 325 Mg Tablet) 650 mg PO Q6H PRN PRN Reason: Pain, Mild (Pain Scale 1-3), fever or headache Benzonatate (Benzonatate 100 Mg Capsule) 100 mg PO TID PRN PRN Reason: Cough Calcium Carbonate (Calcium Carbonate 750 Mg Tab.Chew) 750 mg PO Q4H PRN PRN Reason: Heartburn Potassium Cl/Dextrose/Lact Ringer's (Kcl 20 Meq In 5 % Dex/Lact Rin) 20 meq in 1,000 mls @ 100 mls/hr IVCONT .Q10H [facility] Last Admin: 01/24/24 08:59 Dose: 100 mls/hr Documented By: FARRAH Magnesium Hydroxide (Milk Of Magnesia 30 Ml Oral.Susp) 30 ml PO DAILY PRN PRN Reason: Constipation Melatonin (Melatonin 3 Mg Tablet) 6 mg PO BEDTIME PRN PRN Reason: Insomnia Ondansetron HCl (Ondansetron Hcl 4 Mg/2 Ml Vial) 4 mg IVPUSH Q8H PRN PRN Reason: Nausea and Vomiting Sodium Chloride (0.9 % Sodium Chloride Flush 3 Ml Syringe) 3 ml IVFLUSH QSHIFT [facility] Last Admin: 01/24/24 07:11 Dose: Not Given Documented By: FARRAH Non-Admin Reason: IV Running Labs 01/24/24 06:01 01/24/24 06:01 Labs: Laboratory Results - last 24 hr 01/24/24 06:01 MCV 95.6 MCH 31.6 MCHC 33.0 RDW 13.8 Plt Count 127 L MPV 9.0 L Absolute Nucleated RBC 0.000 Nucleated RBC % (auto) 0.0 Anion Gap 11 L Estim Creat Clear Calc 83.1 Estimated GFR > 60 Random Glucose 83 Calcium 8.5 Microbiology Microbiology Results: Microbiology 01/23/24 Unknown Urine Culture - Preliminary Urine Other - Suprapubic No growth to date. Procedures Date of Service Date of Service: 01/24/24 Progress Note: A&P Assessment and plan (1) Adynamic ileus: Status: Acute Assessment and Plan: Clinically doing well Abdomen is soft and benign No guarding, no apparent tenderness, not distended Okay to try clear liquids and slowly advance Treat other medical issues Time Spent With Patient Time: Total time managing care of this patient today ____ minutes. Quality Stroke Does the patient have a stroke diagnosis?: No VTE Prior VTE?: No VTE Risk Level:: Medical - moderate - high VTE Device Contraindication: N/A - Device Ordered VTE Drug Contraindication: Treatment Not Indicated
[2024-01-24] MEDS: Losartan Potassium 50 MG TABLET 100 MG PO (13:06)
[2024-01-24 13:32] VITALS: BMI 23.5
--- NOTE | 2024-01-24 13:56 | MHC.CLN ---
NUTRITION CURRENTLY NPO DUE TO ILEUS. RECENT [facility] [place] ADMIT 01/17-01/20. DIET UPON DISCHARGE GROUND WITH ENSURE MAX BID WITH FAIR INTAKE DURING ADM. INCREASED NUTRITION NEEDS DUE TO STAGE IV WOUND TO COCCYX. FOLLOW FOR DIET ADVANCEMENT AND NUTRITIONAL NEEDS. SEE CLINICAL NUTRITION ASSESSMENT 01/24/24.
--- NOTE | 2024-01-24 17:59 | PC.NURSE ---
Attempt to place IV x 2, unsuccessful, Primary RN notified.
--- NOTE | 2024-01-24 18:41 | PC.NURSE ---
Rectal Tube leaking stool around tube, tube not functioning as intended. Removed, Primary RN to notify MD.
[2024-01-24 19:18] VITALS: BP 149/90; PULSE 91; RESP 18; TEMP 36.5; O2SAT 100
[2024-01-24] MEDS: Potassium Chloride Packet 20 MEQ PACKET PO (20:14)
[2024-01-24] MEDS: Acetaminophen 325 MG TABLET 650 MG PO (20:14)
[2024-01-24] MEDS: Gabapentin 300 MG CAPSULE PO (20:14)
[2024-01-24] MEDS: levETIRAcetam Oral Soln 500 MG/5 ML 250 MG PO (20:14)
[2024-01-24] MEDS: Tamsulosin HCL 0.4 MG CAPSULE PO (20:14)
[2024-01-25 03:35] VITALS: BP 124/59; PULSE 58; RESP 18; TEMP 36; O2SAT 98
[2024-01-25 06:52] LABS: Anion Gap 8 (12-20); Blood Urea Nitrogen 16 mg/dL (9-16); Calcium 8.3 mg/dL (8.4-10.2); Carbon Dioxide 21 mmol/L (22-29); Chloride 118 mmol/L (96-108); Creatinine Clr Calc Pharmacy 86.9; Estimated Glomerular Filt Rate > 60; Glucose Random 143 mg/dL (60-115); Potassium 3.2 mmol/L (3.3-5.1); Sodium 144 mmol/L (135-145)
[2024-01-25 07:53] VITALS: BP 158/73; PULSE 59; RESP 18; TEMP 36.4; O2SAT 100
[2024-01-25] MEDS: levETIRAcetam Oral Soln 500 MG/5 ML 250 MG PO ×2 (09:09→21:31)
[2024-01-25] MEDS: Losartan Potassium 50 MG TABLET 100 MG PO (09:10)
[2024-01-25] MEDS: Atorvastatin Calcium 80 MG TABLET PO (09:10)
[2024-01-25] MEDS: KCl 20 mEq in 5 % Dex/Lact Rin 20 MEQ/1,000 ML IV.SOLN 100 MEQ IVCONT (09:11)
[2024-01-25] MEDS: Potassium Chloride Packet 20 MEQ PACKET PO ×2 (09:11→21:51)
--- NOTE | 2024-01-25 14:08 | P.CDIM_ITS ---
PROVIDER RESPONSE TEXT: To clarify, the appropriate diagnosis supported by the clinical indicators: Other (explain): unable to determine QUERY TEXT: PHYSICIAN'S DOCUMENTATION REQUEST Date of Query: 01/25/2024 01:56 PM EST Patient Name: Wyatt Castillo Admit Date: 01/23/2024 Dear Florian Jones MD, A review of the medical record indicates additional documentation may be needed. Please review below and update the documentation accordingly. Clinical Indicators: Per Hospitalist Progress Note 01/24/24: stage II right buttock right buttock full-thickness injury Care as per wound care note from 01/18 positioning q.2h, air loss mattress Based on the above, could you please provide further information regarding the type of ulcer/wound: Diabetic ulcer Please specify the location and laterality of the ulcer/wound Venous stasis ulcer Please specify the location and laterality of the ulcer/wound Arterial (ischemic) ulcer Please specify the location and laterality of the ulcer/wound Pressure (decubitus) ulcer Please include the stage of the ulcer and specify the location and laterality of the ulcer/wound Traumatic wound Please specify the location and laterality of the ulcer/wound Other (explain) Clinically unable to determine (explain) Thank you, Feli Hansen RN Use of terms such as suspected, likely, concern for, or probable (associated with a specific diagnosi s that is being evaluated, monitored, or treated as if it exists) are acceptable and can be coded in the inpatient se tting, when documented at the time of discharge. Please use your independent medical judgment in providing your response. THIS QUERY IS PART OF THE PERMANENT MEDICAL RECORD
[2024-01-25 15:25] VITALS: BP 122/73; PULSE 74; RESP 18; TEMP 36.5; O2SAT 98
--- NOTE | 2024-01-25 15:27 | HO.PM.IMPN ---
Subjective Subjective Date of Service: 01/25/24 Interval History: Nonverbal, no acute events overnight Bowel movement this morning, tolerated clear liquid diet Review of Systems Unable to obtain since nonverbal. Physical Exam Vital Signs: Vital Signs: Last Vital Signs Temp 97.7 F 01/25/24 15:25 Pulse 74 01/25/24 15:25 Resp 18 01/25/24 15:25 BP 122/73 01/25/24 15:25 Pulse Ox 98 01/25/24 15:25 O2 Del Method Room Air 01/25/24 15:25 BMI result Body Mass Index 23.5 Const: Other: General awake and alert, non verbal, in no acute distress. Neck supple no JVD. CVS regular rate rhythm, Respiratory lungs clear to auscultation, no respiratory distress Gastrointestinal abdomen soft, non tender, bowel sounds audible, mild distension Extremities no edema Neuro right hemiparesis, right hand contracted stage IV coccyx ulcer, stage II right buttock Walker clear urine Objective Data Active Medications Acetaminophen (Acetaminophen 325 Mg Tablet) 650 mg PO Q6H PRN PRN Reason: Pain, Mild (Pain Scale 1-3), fever or headache Acetaminophen (Acetaminophen 325 Mg Tablet) 650 mg PO BEDTIME [facility] Last Admin: 01/24/24 20:14 Dose: 650 mg Documented By: DAVE Atorvastatin Calcium (Atorvastatin Calcium 80 Mg Tablet) 80 mg PO DAILY [facility] Last Admin: 01/25/24 09:10 Dose: 80 mg Documented By: FARRAH Benzonatate (Benzonatate 100 Mg Capsule) 100 mg PO TID PRN PRN Reason: Cough Calcium Carbonate (Calcium Carbonate 750 Mg Tab.Chew) 750 mg PO Q4H PRN PRN Reason: Heartburn Gabapentin (Gabapentin 300 Mg Capsule) 300 mg PO BEDTIME [facility] Last Admin: 01/24/24 20:14 Dose: 300 mg Documented By: DAVE Potassium Cl/Dextrose/Lact Ringer's (Kcl 20 Meq In 5 % Dex/Lact Rin) 20 meq in 1,000 mls @ 100 mls/hr IVCONT .Q10H [facility] Last Admin: 01/25/24 09:11 Dose: 100 mls/hr Documented By: FARRAH Levetiracetam (Levetiracetam Oral Soln 500 Mg/5 Ml) 250 mg PO BID [facility] Last Admin: 01/25/24 09:09 Dose: 250 mg Documented By: FARRAH Losartan Potassium (Losartan Potassium 50 Mg Tablet) 100 mg PO DAILY [facility]; Protocol Last Admin: 01/25/24 09:10 Dose: 100 mg Documented By: FARRAH Magnesium Hydroxide (Milk Of Magnesia 30 Ml Oral.Susp) 30 ml PO DAILY PRN PRN Reason: Constipation Melatonin (Melatonin 3 Mg Tablet) 6 mg PO BEDTIME PRN PRN Reason: Insomnia Ondansetron HCl (Ondansetron Hcl 4 Mg/2 Ml Vial) 4 mg IVPUSH Q8H PRN PRN Reason: Nausea and Vomiting Potassium Chloride (Potassium Chloride Packet 20 Meq Packet) 20 meq PO BID [facility] Last Admin: 01/25/24 09:11 Dose: 20 meq Documented By: FARRAH Sodium Chloride (0.9 % Sodium Chloride Flush 3 Ml Syringe) 3 ml IVFLUSH QSHIFT [facility] Last Admin: 01/25/24 15:00 Dose: Not Given Documented By: FARRAH Non-Admin Reason: IV Running Tamsulosin HCl (Tamsulosin Hcl 0.4 Mg Capsule) 0.4 mg PO BEDTIME [facility] Last Admin: 01/24/24 20:14 Dose: 0.4 mg Documented By: DAVE Labs 01/24/24 06:01 01/25/24 05:50 Labs: Laboratory Results - last 24 hr 01/25/24 05:50 Hold Purple Top SEE NOTE Anion Gap 8 L Estim Creat Clear Calc 86.9 Estimated GFR > 60 Random Glucose 143 H Calcium 8.3 L Microbiology Microbiology Results: Microbiology 01/23/24 Unknown Urine Culture - Final Urine Other - Suprapubic No growth. Assessment and Plan (1) Hematuria: Status: Acute (2) Ileus: Status: Acute Plan 68-year-old male with a PMH significant for?vascular dementia, CVA with R-sided hemiparesis, neurogenic bladder with hx of FQ-sensitive Pseudomonas UTI and chronic SPC, stage 4 sacral decubitus ulcer, hx C. difficile colitis, seizure disorder, HTN, HLD, and pAF on rivaroxaban who presents to the ED from [facility] for evaluation of abdominal distention with concerns of bowel obstruction. Pt will be admitted to the hospital for treatment and further evaluation of ileus. acute on chronic colonic Ileus abdominal distention improving, rectal tube with small stool recent rectal ileus last week on 01/18/2024, resolved with rectal tube KUB obtain report pending, tolerating clear liquids will advance to full liquid will discuss further treatment plan with General surgery replete electrolytes, no recurrent acute infections. Hematuria resolved Hold Xarelto for now and resume if no bleeding in next 24 hours stable hematocrit Acute on chronic hypokalemia potassium remained slow 3.2 will replete and follow labs Ureterolithiasis Seen by urology last week, unable to place stent due to staghorn calculi CT without hydronephrosis or hydroureter Abnormal UA Patient treated for UTI during last admission, discharged on levofloxacin 750 mg , finished course of antibiotics on 01/22 Sacral decubitus ulcer Stage IV /right buttock full-thickness injury unspecified Care as per wound care note from 01/18 positioning q.2h, air loss mattress CVA/HLD Continue statin Paroxysmal AFib resume Xarelto HTN Continue losartan Seizure disorder Continue levetiracetam Full Code DVT Prophylaxis: Resume Xarelto As patient is unable to tolerate p.o., he will require continued inpatient hospitalization requiring IV fluids close electrolyte monitoring and expert consultation. Quality Stroke Does the patient have a stroke diagnosis?: No VTE Prior VTE?: No VTE Risk Level:: Medical - moderate - high VTE Device Contraindication: N/A - Device Ordered VTE Drug Contraindication: Treatment Not Indicated
--- NOTE | 2024-01-25 16:00 | HO.WOUND ---
Wound Consult: Initial 68yr old male admitted to [facility] [place] [place] on?01/23/24- See progress notes and H&P for detailed history. Wound consult placed for Coccyx wound POA. Pt has been seen in the past by this typewriter aligner. Sacrum / Coccyx Etiology: ??Stage 4 Pressure Injury Present on Admission Wound Bed: clean moist red pink tissue Edges: ?epibole Bonny wound: maceration noted - Scar tissue noted - pink tissue noted ?the right buttock is noted for full thickness injury unclear etiology will treat with triad and foam dressing Pain: pt denies Goals of Treatment: ? Moist wound healing - Moisture management with Alginate and off load pressure Bilateral ischium are noted for scar tissue and pink blanchable tissue - protective foam applied and Q2hr turns with pillows. KING mattress in use already. Recommendations: 1. Turn and Reposition every 2 hours and as needed for patient comfort.? Use pillows or wedges to support off loading positions. 2. Off Load all bony prominences with use of pillows and heel boots if needed.? Apply Preventative foams where needed. ? 3. Monitor for incontinence and moisture control, use barrier creams when needed for prevention and treatment. 4. Provide adequate and supplemental nutrition. 5. Order or Continue low air loss mattress. 6. Sacrum / Coccyx - Cleanse and irrigate with NS, Pat dry.? Apply skin prep to periwound, cover wound bed with Alginate (Durafiber AG).? Cover with Foam dressing.? Change every 3 days and PRN. 7. Right Buttock - Cleanse with NS, pat dry. Apply triad to wound bed cover with foam dressing. Change every 3 days and PRN. Recommend follow up out patient Wound Clinic at [address] [place] [id number] and to call for an appointment at time of discharge. [phone].? Re-consult wound care Nurse for wound deterioration or wound changes.
[2024-01-25 19:48] VITALS: BP 133/75; PULSE 69; RESP 18; TEMP 36.6; O2SAT 97
[2024-01-25] MEDS: KCl 20 mEq in 5 % Dex/Lact Rin 20 MEQ/1,000 ML IV.SOLN 60 MEQ IVCONT (20:13)
[2024-01-25] MEDS: Acetaminophen 325 MG TABLET 650 MG PO (21:31)
[2024-01-25] MEDS: Gabapentin 300 MG CAPSULE PO (21:31)
[2024-01-25] MEDS: Tamsulosin HCL 0.4 MG CAPSULE PO (21:31)
[2024-01-26 03:28] VITALS: BP 129/61; PULSE 58; RESP 18; TEMP 36.2; O2SAT 97
[2024-01-26 06:59] LABS: Anion Gap 9 (12-20); Blood Urea Nitrogen 12 mg/dL (9-16); Calcium 8.2 mg/dL (8.4-10.2); Carbon Dioxide 21 mmol/L (22-29); Chloride 115 mmol/L (96-108); Creatinine Clr Calc Pharmacy 93.3; Estimated Glomerular Filt Rate > 60; Glucose Random 114 mg/dL (60-115); Potassium 3.1 mmol/L (3.3-5.1); Sodium 142 mmol/L (135-145)
[2024-01-26 07:48] VITALS: BP 140/80; PULSE 64; RESP 17; TEMP 36.4; O2SAT 98
[2024-01-26] MEDS: levETIRAcetam Oral Soln 500 MG/5 ML 250 MG PO ×2 (08:33→21:01)
[2024-01-26] MEDS: Atorvastatin Calcium 80 MG TABLET PO (08:34)
[2024-01-26] MEDS: Losartan Potassium 50 MG TABLET 100 MG PO (08:34)
[2024-01-26] MEDS: Rivaroxaban 20 MG TABLET PO (08:34)
[2024-01-26] MEDS: Potassium Chloride Packet 20 MEQ PACKET 40 MEQ PO ×2 (08:35→21:01)
--- NOTE | 2024-01-26 11:24 | MHC.CLN ---
F/U DIET ADVANCED TO FULL LIQUIDS, NECTAR THICK LIQUIDS ON 01/24. INCREASED NUTRITION NEEDS DUE TO STAGE IV WOUND TO COCCYX. ADDING ENSURE TID TO PROVIDE 1050 KCALS, 60 G PROTEIN. FOLLOW FOR DIET ADVANCEMENT AND NUTRITIONAL NEEDS.
--- NOTE | 2024-01-26 13:29 | HO.PM.IMPN ---
Subjective Subjective Date of Service: 01/26/24 Interval History: Nonverbal no acute events overnight, noted to have liquidy stool in rectal tube. Review of Systems Unable to obtain , nonverbal. Physical Exam Vital Signs: Vital Signs: Last Vital Signs Temp 97.6 F 01/26/24 07:48 Pulse 64 01/26/24 07:48 Resp 17 01/26/24 07:48 BP 140/80 H 01/26/24 07:48 Pulse Ox 98 01/26/24 07:48 O2 Del Method Room Air 01/26/24 07:48 BMI result Body Mass Index 23.5 Const: Other: General awake and alert, non verbal, in no acute distress. Neck supple no JVD. CVS regular rate rhythm, Respiratory lungs clear to auscultation, no respiratory distress Gastrointestinal abdomen soft, non tender, bowel sounds audible, no distension Extremities no edema Neuro right hemiparesis, right hand contracted stage IV coccyx ulcer, stage II right buttock Wakler clear urine Objective Data Active Medications Acetaminophen (Acetaminophen 325 Mg Tablet) 650 mg PO Q6H PRN PRN Reason: Pain, Mild (Pain Scale 1-3), fever or headache Acetaminophen (Acetaminophen 325 Mg Tablet) 650 mg PO BEDTIME [facility] Last Admin: 01/25/24 21:31 Dose: 650 mg Documented By: ELEAZAR Atorvastatin Calcium (Atorvastatin Calcium 80 Mg Tablet) 80 mg PO DAILY [facility] Last Admin: 01/26/24 08:34 Dose: 80 mg Documented By: MOSES Benzonatate (Benzonatate 100 Mg Capsule) 100 mg PO TID PRN PRN Reason: Cough Calcium Carbonate (Calcium Carbonate 750 Mg Tab.Chew) 750 mg PO Q4H PRN PRN Reason: Heartburn Gabapentin (Gabapentin 300 Mg Capsule) 300 mg PO BEDTIME [facility] Last Admin: 01/25/24 21:31 Dose: 300 mg Documented By: ELEAZAR Levetiracetam (Levetiracetam Oral Soln 500 Mg/5 Ml) 250 mg PO BID [facility] Last Admin: 01/26/24 08:33 Dose: 250 mg Documented By: OMSES Losartan Potassium (Losartan Potassium 50 Mg Tablet) 100 mg PO DAILY [facility]; Protocol Last Admin: 01/26/24 08:34 Dose: 100 mg Documented By: MOSES Magnesium Hydroxide (Milk Of Magnesia 30 Ml Oral.Susp) 30 ml PO DAILY PRN PRN Reason: Constipation Melatonin (Melatonin 3 Mg Tablet) 6 mg PO BEDTIME PRN PRN Reason: Insomnia Ondansetron HCl (Ondansetron Hcl 4 Mg/2 Ml Vial) 4 mg IVPUSH Q8H PRN PRN Reason: Nausea and Vomiting Potassium Chloride (Potassium Chloride Packet 20 Meq Packet) 40 meq PO BID [facility] Last Admin: 01/26/24 08:35 Dose: 40 meq Documented By: MOSES Rivaroxaban (Rivaroxaban 20 Mg Tablet) 20 mg PO DAILY [facility] Last Admin: 01/26/24 08:34 Dose: 20 mg Documented By: MOSES Sodium Chloride (0.9 % Sodium Chloride Flush 3 Ml Syringe) 3 ml IVFLUSH QSHIFT [facility] Last Admin: 01/26/24 07:17 Dose: Not Given Documented By: MOSES Non-Admin Reason: IV Running Tamsulosin HCl (Tamsulosin Hcl 0.4 Mg Capsule) 0.4 mg PO BEDTIME [facility] Last Admin: 01/25/24 21:31 Dose: 0.4 mg Documented By: ELEAZAR Labs 01/24/24 06:01 01/26/24 05:57 Labs: Laboratory Results - last 24 hr 01/26/24 05:57 Anion Gap 9 L Estim Creat Clear Calc 93.3 Estimated GFR > 60 Random Glucose 114 Calcium 8.2 L Microbiology Microbiology Results: Microbiology 01/23/24 Unknown Urine Culture - Final Urine Other - Suprapubic No growth. Assessment and Plan (1) Hematuria: Status: Acute (2) Ileus: Status: Acute Plan 68-year-old male with a PMH significant for?vascular dementia, CVA with R-sided hemiparesis, neurogenic bladder with hx of FQ-sensitive Pseudomonas UTI and chronic SPC, stage 4 sacral decubitus ulcer, hx C. difficile colitis, seizure disorder, HTN, HLD, and pAF on rivaroxaban who presents to the ED from [facility] for evaluation of abdominal distention with concerns of bowel obstruction. Pt will be admitted to the hospital for treatment and further evaluation of ileus. acute on chronic colonic Ileus abdominal distention improving, rectal tube with small liquidy stool recent rectal ileus last week on 01/18/2024, resolved with rectal tube KUB showed remained severely distended colon with large amount of stool throughout the colon , tolerating full liquid diet, will advance to regular pureed diet with nectar thick liquids Case discussed with general surgery will give lactulose times once, will DC rectal tube in next 24 hours Hematuria resolved, Xarelto restarted no recurrent bleed noted. stable hematocrit Acute on chronic hypokalemia potassium remained low 3.1 will replete and follow labs Ureterolithiasis Seen by urology last week, unable to place stent due to staghorn calculi CT without hydronephrosis or hydroureter Abnormal UA Patient treated for UTI during last admission, discharged on levofloxacin 750 mg , finished course of antibiotics on 01/22 Sacral decubitus ulcer Stage IV /right buttock full-thickness injury unspecified Care as per wound care note from 01/18, positioning q.2h, air loss mattress CVA/HLD Continue statin Paroxysmal AFib cont. Xarelto HTN Continue losartan Seizure disorder Continue levetiracetam Full Code DVT Prophylaxis: Xarelto As patient is unable to tolerate p.o., he will require continued inpatient hospitalization for management of adynamic colon . Quality Stroke Does the patient have a stroke diagnosis?: No VTE Prior VTE?: No VTE Risk Level:: Medical - moderate - high VTE Device Contraindication: N/A - Device Ordered VTE Drug Contraindication: Treatment Not Indicated
--- NOTE | 2024-01-26 13:36 | MHC.CM.PN ---
per rounds pt not [facility]
[2024-01-26] MEDS: Lactulose 20 GM/30 ML SOLUTION 30 GM PO (13:57)
--- NOTE | 2024-01-26 14:26 | P.PNGS_ITS ---
Subjective Subjective Date of Service: 01/26/24 Interval history: Seen on follow-up as requested by the hospitalist service Noted to have watery stools No significant changes Physical Exam 2 Vital Signs: Vital Signs: Last Vital Signs Temp 97.6 F 01/26/24 07:48 Pulse 64 01/26/24 07:48 Resp 17 01/26/24 07:48 BP 140/80 H 01/26/24 07:48 Pulse Ox 98 01/26/24 07:48 O2 Del Method Room Air 01/26/24 07:48 BMI result Body Mass Index 23.5 Const: Other: Does not have apparent tenderness Patient not communicative General: comfortable and no acute distress Resp: Effort & Inspection: normal respiratory effort GI: Other: Mildly distended but soft Palpation (GI): not firm, nontender and no guarding Objective Data Active Medications Acetaminophen (Acetaminophen 325 Mg Tablet) 650 mg PO Q6H PRN PRN Reason: Pain, Mild (Pain Scale 1-3), fever or headache Acetaminophen (Acetaminophen 325 Mg Tablet) 650 mg PO BEDTIME [facility] Last Admin: 01/25/24 21:31 Dose: 650 mg Documented By: ELEAZAR Atorvastatin Calcium (Atorvastatin Calcium 80 Mg Tablet) 80 mg PO DAILY [facility] Last Admin: 01/26/24 08:34 Dose: 80 mg Documented By: MOSES Benzonatate (Benzonatate 100 Mg Capsule) 100 mg PO TID PRN PRN Reason: Cough Calcium Carbonate (Calcium Carbonate 750 Mg Tab.Chew) 750 mg PO Q4H PRN PRN Reason: Heartburn Gabapentin (Gabapentin 300 Mg Capsule) 300 mg PO BEDTIME [facility] Last Admin: 01/25/24 21:31 Dose: 300 mg Documented By: ELEAZAR Levetiracetam (Levetiracetam Oral Soln 500 Mg/5 Ml) 250 mg PO BID [facility] Last Admin: 01/26/24 08:33 Dose: 250 mg Documented By: MOSES Losartan Potassium (Losartan Potassium 50 Mg Tablet) 100 mg PO DAILY [facility]; Protocol Last Admin: 01/26/24 08:34 Dose: 100 mg Documented By: MOSES Magnesium Hydroxide (Milk Of Magnesia 30 Ml Oral.Susp) 30 ml PO DAILY PRN PRN Reason: Constipation Melatonin (Melatonin 3 Mg Tablet) 6 mg PO BEDTIME PRN PRN Reason: Insomnia Ondansetron HCl (Ondansetron Hcl 4 Mg/2 Ml Vial) 4 mg IVPUSH Q8H PRN PRN Reason: Nausea and Vomiting Potassium Chloride (Potassium Chloride Packet 20 Meq Packet) 40 meq PO BID [facility] Last Admin: 01/26/24 08:35 Dose: 40 meq Documented By: MOSES Rivaroxaban (Rivaroxaban 20 Mg Tablet) 20 mg PO DAILY [facility] Last Admin: 01/26/24 08:34 Dose: 20 mg Documented By: MOSES Sodium Chloride (0.9 % Sodium Chloride Flush 3 Ml Syringe) 3 ml IVFLUSH QSHIFT [facility] Last Admin: 01/26/24 07:17 Dose: Not Given Documented By: MOSES Non-Admin Reason: IV Running Tamsulosin HCl (Tamsulosin Hcl 0.4 Mg Capsule) 0.4 mg PO BEDTIME [facility] Last Admin: 01/25/24 21:31 Dose: 0.4 mg Documented By: ELEAZAR Labs 01/24/24 06:01 01/26/24 05:57 Labs: Laboratory Results - last 24 hr 01/26/24 05:57 Anion Gap 9 L Estim Creat Clear Calc 93.3 Estimated GFR > 60 Random Glucose 114 Calcium 8.2 L Procedures Date of Service Date of Service: 01/26/24 Progress Note: A&P Assessment and plan (1) Paralytic ileus of small intestine and colon: Status: Acute Assessment and Plan: Imaging consistent with colonic ileus No obstructive signs Correct potassium His abdominal exam is very benign Does not have any apparent tenderness Avoid anticholinergics Avoid narcotics (2) Adynamic ileus: Status: Acute Time Spent With Patient Time: Total time managing care of this patient today ____ minutes. Quality Stroke Does the patient have a stroke diagnosis?: No VTE Prior VTE?: No VTE Risk Level:: Medical - moderate - high VTE Device Contraindication: N/A - Device Ordered VTE Drug Contraindication: Treatment Not Indicated
[2024-01-26 15:28] VITALS: BP 134/76; PULSE 61; RESP 18; TEMP 36.8; O2SAT 97
[2024-01-26 19:34] VITALS: BP 126/63; PULSE 61; RESP 18; TEMP 37.4; O2SAT 97
[2024-01-26] MEDS: Tamsulosin HCL 0.4 MG CAPSULE PO (21:01)
[2024-01-26] MEDS: 0.9 % Sodium Chloride Flush 3 ML SYRINGE IVFLUSH (21:01)
[2024-01-26] MEDS: Acetaminophen 325 MG TABLET 650 MG PO (21:01)
[2024-01-26] MEDS: Gabapentin 300 MG CAPSULE PO (21:01)
[2024-01-27 03:42] VITALS: BP 138/70; PULSE 67; RESP 18; TEMP 37.1; O2SAT 98
[2024-01-27 07:34] VITALS: BP 145/77; PULSE 62; TEMP 36.7; O2SAT 98
[2024-01-27] MEDS: levETIRAcetam Oral Soln 500 MG/5 ML 250 MG PO (08:55)
[2024-01-27] MEDS: Losartan Potassium 50 MG TABLET 100 MG PO (08:56)
[2024-01-27] MEDS: Potassium Chloride Packet 20 MEQ PACKET 40 MEQ PO (08:57)
[2024-01-27] MEDS: Atorvastatin Calcium 80 MG TABLET PO (08:57)
[2024-01-27] MEDS: Rivaroxaban 20 MG TABLET PO (08:57)
[2024-01-27] MEDS: 0.9 % Sodium Chloride Flush 3 ML SYRINGE IVFLUSH (08:57)
--- NOTE | 2024-01-27 09:08 | PC.NURSE ---
Addendum entered by Mariia Lyon RN 01/27/24 11:22: Rectal tube removed, pt tolerated well. Pt has bad 2 large liquid BMs since removal, MD Jones aware. Bonny care provided daily and PRN. Pt being turned every 2 hours and PRN, airloss pump in place. Original Note: Per MD Robert JIMÉNEZ rectal tube.
--- NOTE | 2024-01-27 13:19 | P.PNGS_ITS ---
Subjective Subjective Date of Service: 01/27/24 Interval history: No events reported by nurse Patient nonverbal Appears to be comfortable Physical Exam 2 Vital Signs: Vital Signs: Last Vital Signs Temp 98.1 F 01/27/24 07:34 Pulse 62 01/27/24 07:34 Resp 18 01/27/24 03:42 BP 145/77 H 01/27/24 07:34 Pulse Ox 98 01/27/24 07:34 O2 Del Method Room Air 01/27/24 07:34 BMI result Body Mass Index 23.5 Const: General: comfortable and no acute distress Resp: Effort & Inspection: normal respiratory effort GI: Other: Abdominal exam very benign, no apparent tenderness even with deep palpation Inspection: No distended Palpation (GI): Soft to palpation, not firm, nontender, no guarding and not rigid Objective Data Active Medications Acetaminophen (Acetaminophen 325 Mg Tablet) 650 mg PO Q6H PRN PRN Reason: Pain, Mild (Pain Scale 1-3), fever or headache Acetaminophen (Acetaminophen 325 Mg Tablet) 650 mg PO BEDTIME [facility] Last Admin: 01/26/24 21:01 Dose: 650 mg Documented By: IMELDA Atorvastatin Calcium (Atorvastatin Calcium 80 Mg Tablet) 80 mg PO DAILY [facility] Last Admin: 01/27/24 08:57 Dose: 80 mg Documented By: MARIUSZ Benzonatate (Benzonatate 100 Mg Capsule) 100 mg PO TID PRN PRN Reason: Cough Calcium Carbonate (Calcium Carbonate 750 Mg Tab.Chew) 750 mg PO Q4H PRN PRN Reason: Heartburn Gabapentin (Gabapentin 300 Mg Capsule) 300 mg PO BEDTIME [facility] Last Admin: 01/26/24 21:01 Dose: 300 mg Documented By: IMELDA Levetiracetam (Levetiracetam Oral Soln 500 Mg/5 Ml) 250 mg PO BID [facility] Last Admin: 01/27/24 08:55 Dose: 250 mg Documented By: MARIUSZ Losartan Potassium (Losartan Potassium 50 Mg Tablet) 100 mg PO DAILY [facility]; Protocol Last Admin: 01/27/24 08:56 Dose: 100 mg Documented By: MARIUSZ Magnesium Hydroxide (Milk Of Magnesia 30 Ml Oral.Susp) 30 ml PO DAILY PRN PRN Reason: Constipation Melatonin (Melatonin 3 Mg Tablet) 6 mg PO BEDTIME PRN PRN Reason: Insomnia Ondansetron HCl (Ondansetron Hcl 4 Mg/2 Ml Vial) 4 mg IVPUSH Q8H PRN PRN Reason: Nausea and Vomiting Potassium Chloride (Potassium Chloride Packet 20 Meq Packet) 40 meq PO BID [facility] Last Admin: 01/27/24 08:57 Dose: 40 meq Documented By: MARIUSZ Rivaroxaban (Rivaroxaban 20 Mg Tablet) 20 mg PO DAILY [facility] Last Admin: 01/27/24 08:57 Dose: 20 mg Documented By: MARIUSZ Sodium Chloride (0.9 % Sodium Chloride Flush 3 Ml Syringe) 3 ml IVFLUSH QSHIFT [facility] Last Admin: 01/27/24 08:57 Dose: 3 ml Documented By: MARIUSZ Tamsulosin HCl (Tamsulosin Hcl 0.4 Mg Capsule) 0.4 mg PO BEDTIME [facility] Last Admin: 01/26/24 21:01 Dose: 0.4 mg Documented By: IMELDA Labs 01/24/24 06:01 01/26/24 05:57 Procedures Date of Service Date of Service: 01/27/24 Progress Note: A&P Assessment and plan (1) Adynamic ileus: Status: Acute Assessment and Plan: Colonic ileus likely secondary to ongoing acute issues Correct any electrolyte abnormality Okay to advance diet as tolerated Abdominal exam remains very benign Avoid narcotics and anticholinergics if possible Time Spent With Patient Time: Total time managing care of this patient today ____ minutes. Quality Stroke Does the patient have a stroke diagnosis?: No VTE Prior VTE?: No VTE Risk Level:: Medical - moderate - high VTE Device Contraindication: N/A - Device Ordered VTE Drug Contraindication: Treatment Not Indicated
[2024-01-27 13:34] LABS: Anion Gap 7 (12-20); Blood Urea Nitrogen 12 mg/dL (9-16); Calcium 8.1 mg/dL (8.4-10.2); Carbon Dioxide 27 mmol/L (22-29); Chloride 112 mmol/L (96-108); Estimated Glomerular Filt Rate > 60; Glucose Random 128 mg/dL (60-115); Potassium 3.4 mmol/L (3.3-5.1); Sodium 143 mmol/L (135-145)
--- NOTE | 2024-01-27 14:48 | P.DS_ITS ---
DS: Providers Provider Date of Service: 01/27/24 Date of admission: 01/23/24 12:20 Primary care physician: Lorraine Wiley MD Consults: 01/23/24 12:09 Consult to General Surgery Routine Consulting Provider: [facility] General Surgeons Reason for consultation: Ileus 01/23/24 18:23 Consult to Wound Care Routine Reason for consultation: wound to coccyx and buttock DS: Diagnosis Discharge Diagnosis (1) Adynamic ileus: Status: Acute DS: Summary Hospital Course Hospital Course: History of presenting illness: Date of Service: 01/23/24 Attending physician on admission: Demetri De La Paz Chief Complaint: Abdominal distention Pt is a 68-year-old male with a PMH significant for?vascular dementia, CVA with R-sided hemiparesis, neurogenic bladder with hx of FQ-sensitive Pseudomonas UTI and chronic SPC, stage 4 sacral decubitus ulcer, hx C. difficile colitis, seizure disorder, HTN, HLD, and pAF on rivaroxaban who presents to the ED from [facility] for evaluation of abdominal distention with concerns of bowel obstruction. Patient has nonverbal and bed-bound at baseline. HPI thus obtained from chart and provider review. Patient apparently had last bowel movement yesterday on 01/21. Patient was recently discharged this facility 2 days prior on 01/20 where he was treated for ureterolithiasis, UTI, and rectal ileus. Urology was consulted and ureteral stent was considered, our given position of staghorn calculus with likely limit adequate placement so patient was treated conservatively without surgical intervention. Was treated with levofloxacin for complicated UTI with end date today 01/22. GI was consulted for ileus which resolved with rectal tube placement. In the ED today pt's vitals stable and WNL. Labs were significant for creatinine of 1.24 (increased from 1.06 on 01/20), otherwise grossly unremarkable and around baseline for patient. Chronic normocytic anemia around baseline. No leukocytosis. No significant electrolyte abnormalities. UA showing gross hematuria and consistent with chronic colonization. CT of abdomen and pelvis found severely distended colon with air, likely indicating ileus. No evidence of SBO or LBO. Also redemonstrated staghorn calculus with additional bilateral ureteral stones up to 1.1 cm on right and 0.6 cm on left without hydronephrosis or hydroureter. EKG demonstrated sinus bradycardia of 49 without evidence of significant ST elevations or depressions. Pt will be admitted to the hospital for treatment and further evaluation of ileus. Hospital course: 68-year-old male with a PMH significant for?vascular dementia, CVA with R-sided hemiparesis, neurogenic bladder with hx of FQ-sensitive Pseudomonas UTI and chronic SPC, stage 4 sacral decubitus ulcer, hx C. difficile colitis, seizure disorder, HTN, HLD, and pAF on rivaroxaban who presents to the ED from [facility] for evaluation of abdominal distention with concerns of bowel obstruction and admitted the hospital with a diagnosis of colonic ileus. acute on chronic colonic Ileus, patient made NPO, treated with IV fluids, rectal tube, KUB showed severely distended colon with large amount of stool throughout the colon, treated with lactulose with good result, diet was gradually advanced currently tolerating pureed diet with nectar thick liquids with no nausea no vomiting , rectal tube discontinued recommend to avoid narcotics and anticholinergics keep potassium around 4. Noted to have hypokalemia that was repleted repeat potassium is normal dose of potassium increased to 30 mEq b.i.d. Ureterolithiasis Seen by urology last week, unable to place stent due to staghorn calculi, CT without hydronephrosis or hydroureter, recommend outpatient urology follow-up, finished course of Levaquin for recently diagnosed UTI, noted to have brief episode of hematuria, now resolved hematocrit stable continue Xarelto. Sacral decubitus ulcer Stage IV /right buttock full-thickness injury unspecified, follow wound care, and frequent position change q.2 hours. CVA/HLD Continue statin Paroxysmal AFib cont. Xarelto HTN stable BP, Continue losartan Seizure disorder Continue levetiracetam Time Attestation Discharge Coordination Time (in mins): 38 Quality: Safe Use of Opioids Does Pt have an Active Cancer Diagnosis on the Problem List?: No Quality: Stroke Does the patient have a stroke diagnosis?: No Physical Exam Vital Signs: Vital Signs: Last Vital Signs Temp 98.1 F 01/27/24 07:34 Pulse 62 01/27/24 07:34 Resp 18 01/27/24 03:42 BP 145/77 H 01/27/24 07:34 Pulse Ox 98 01/27/24 07:34 O2 Del Method Room Air 01/27/24 07:34 BMI result Body Mass Index 23.5 Const: Other: General awake and alert, non verbal, in no acute distress. Neck supple no JVD. CVS regular rate rhythm, Respiratory lungs clear to auscultation, no respiratory distress Gastrointestinal abdomen soft, non tender, bowel sounds audible, no distension Extremities no edema Neuro right hemiparesis, right hand contracted stage IV coccyx ulcer, stage II right buttock Walker clear urine DS: Data Data Completed and Pending Completed studies during hospitalization [Text1]: Procedures Change Drainage Device in Bladder, External Approach (10/05/23) Drainage of Bladder with Drainage Device, Percutaneous Endoscopic Approach (06/23/21) Transfusion of Nonautologous Red Blood Cells into Peripheral Vein, Percutaneous Approach (12/23/22) Labs on day of discharge: Laboratory Results - last 24 hr 01/27/24 12:57 Sodium 143 Potassium 3.4 Chloride 112 H Carbon Dioxide 27 Anion Gap 7 L BUN 12 Creatinine 0.85 Estim Creat Clear Calc 90.0 Estimated GFR > 60 Random Glucose 128 H Calcium 8.1 L Discharge Plan Discharge Anticipated Discharge Date/Time: 01/27/24 11:36 Patient Disposition: Xfer SNF Discharge Diagnosis: Colonic ileus Referrals: Lorraine Wiley MD [Primary Care Provider] - 1 Week Discharge Medications: Continued (DME) wet wipes See Rx Instructions .ROUTE .MEDSUPPLY Qty: 5 3RF Rx Instructions: As directed levetiracetam 100 mg/mL solution 2.5 ml PO BID acetaminophen 325 mg Tablet 650 mg PO Q4H PRN (Reason: fever/pain) calcium carbonate-vitamin D3 600 mg-5 mcg (200 unit) Tablet 1 tab PO BID magnesium hydroxide [Milk of Magnesia] 400 mg/5 mL Suspension 30 ml PO DAILY PRN (Reason: No BM in 3 Days) bisacodyl 10 mg Suppository 10 mg VT DAILY PRN (Reason: If no BM in 8 hours after use of MoM) Fleet Enema 19-7 gram/118 mL Enema 118 ml VT DAILY PRN (Reason: If no BM in 8 hours after use of Bisacodyl) magnesium citrate Solution 150 ml PO DAILY PRN (Reason: No BM in 12 hrs) ferrous sulfate 325 mg (65 mg iron) Tablet 325 mg PO DAILY multivitamin Tablet 1 tab PO DAILY psyllium Powder 1 ea PO BEDTIME Rx Instructions: mix into at least 8 oz of water or juice before administering sodium hypochlorite 0.125 % Solution 1 appl TOPICAL BEDTIME Rx Instructions: APPLY TO COCCYX WOUND TOPICALLY EVERY FIRST LINE [employer] SUPER[employer] FOR WOUND CARE TO PRESSURE AREA, CLEANSE WITH DAKIN'S SOLUTION, PACK WITH HYDRAFERA BLUE, COVER WITH DRY CLEAN DRESSING DAILY. acetaminophen [Tylenol] 325 mg Tablet 650 mg PO BEDTIME acetic acid 0.25 % Solution 50 ml IRRIGATION TUTHSA@2100 Rx Instructions: for urinary catheter flush losartan 100 mg tablet 100 mg PO DAILY 90 Days Qty: 90 4RF gabapentin 300 mg capsule 300 mg PO BEDTIME 30 Days Qty: 30 0RF (DME) miscellaneous medical supply Misc See Rx Instructions .ROUTE .MEDSUPPLY Qty: 1 0RF Rx Instructions: RUE resting hand Splint/Sling As directed, Dx: G81.91, I67.89, duration 999 days/life time tamsulosin 0.4 mg capsule 0.4 mg PO BEDTIME 90 Days Qty: 90 1RF Xarelto 20 mg tablet 20 mg PO DAILY atorvastatin 80 mg tablet 80 mg PO DAILY ascorbic acid (vitamin C) 1,000 mg tablet 1,000 mg PO DAILY 90 Days Qty: 90 1RF methenamine hippurate 1 gram tablet 1 g PO daily 90 Days Qty: 90 1RF Changed potassium chloride 20 mEq Packet 30 meq PO BID Qty: 30 0RF Discontinued oxycodone 5 mg Tablet 5 mg PO Q6H PRN (Reason: Pain) Discharge Orders: Discharge Order (Routine); Ordered 01/27/24 Ordered By: Florian Jones Diet: Advance to usual diet Activity on Discharge: As tolerated Stand Alone Forms: Patient Portal Discharge page Print Language: Slovenian Care Plan Goals: Colonic ileus avoid narcotics and anticholinergics Monitor bowels, add senna daily if no bowel movement Monitor BMP keep potassium around 4 Health Concerns: Urolithiasis/chronic hypokalemia Plan of Treatment: Follow-up with primary care physician Assessment: As above
[2024-01-27 15:26] VITALS: BP 118/61; PULSE 64; RESP 18; TEMP 36.4; O2SAT 98
--- NOTE | 2024-01-27 16:08 | MHC.CM.PN ---
Addendum entered by Karen Montaño 01/27/24 16:31: CCA/CTS RUN NUMBER: [id number] Original Note: PT CLEARED TO RETURN TO [facility] TODAY BLS TRANSPORT BOOKED WITH [facility] FOR 1730 HOURS JOCELYNE, PTS HCP, NOTIFIED VIA T/C [phone] CM ATTEMPTED TO REACH SAVANNA NGUYEN OTHER HCP, HOWEVER PHONE IS OUT OF SERVICE
== END 2024-01-27 17:54 | disposition skilled nursing facility (03) | DRG 388 ==
LOC: HO.ED 10:41 → HO.EDOVER 12:21 → HO.S3 17:08
PROVIDERS: Admitting Provider Student in an Organized Health Care Education/Training Program; Emergency Provider Emergency Medicine; PCP Internal Medicine; Visit Provider Hospitalist
DX: K56.0 Paralytic ileus (principal); L89.154 Pressure ulcer of sacral region, stage 4; I69.351 Hemiplegia and hemiparesis following cerebral infarction affecting right dominant side; G40.909 Epilepsy, unspecified, not intractable, without status epilepticus; N20.0 Calculus of kidney; Z93.59 Other cystostomy status; R31.0 Gross hematuria; E87.6 Hypokalemia; I10 Essential (primary) hypertension; N31.9 Neuromuscular dysfunction of bladder, unspecified; I48.0 Paroxysmal atrial fibrillation; L98.419 Non-pressure chronic ulcer of buttock with unspecified severity; Z74.01 Bed confinement status; Z79.01 Long term (current) use of anticoagulants; Z79.899 Other long term (current) drug therapy
CPT/HCPCS: 36415; 74018; 74176; 80048; 80053; 81001; 81003; 83690; 85025; 85027; 87086; 93005; 99285; J1956; J3480; J7120

== ENCOUNTER → 2024-01-23 05:44 | Outpatient (BNV) | payer OTHER, SELFPAY | PROVIDERS: Admitting Provider Student in an Organized Health Care Education/Training Program; Emergency Provider Emergency Medicine; Visit Provider Internal Medicine | DX: R07.9 Chest pain, unspecified (principal) | CPT/HCPCS: 93010 ==

== ENCOUNTER → 2024-01-23 12:20 | Outpatient (BNV) | payer OTHER, SELFPAY | PROVIDERS: Admitting Provider Student in an Organized Health Care Education/Training Program; Emergency Provider Emergency Medicine; Visit Provider Student in an Organized Health Care Education/Training Program | DX: R31.0 Gross hematuria (principal); K56.7 Ileus, unspecified | CPT/HCPCS: 99223; 99232; 99239 ==

== ENCOUNTER → 2024-01-23 12:20 | Outpatient (BNV) | payer OTHER, SELFPAY | PROVIDERS: Admitting Provider Student in an Organized Health Care Education/Training Program; Emergency Provider Emergency Medicine; Visit Provider Surgery | DX: K56.0 Paralytic ileus (principal) | CPT/HCPCS: 99222; 99232 ==

== ENCOUNTER → 2024-03-23 07:31 | Outpatient (BNVA) | payer OTHER, SELFPAY | PROVIDERS: PCP Internal Medicine; Visit Provider Urology | DX: R33.9 Retention of urine, unspecified (principal); N31.9 Neuromuscular dysfunction of bladder, unspecified; I69.351 Hemiplegia and hemiparesis following cerebral infarction affecting right dominant side; N20.0 Calculus of kidney; Z87.440 Personal history of urinary (tract) infections; Z93.59 Other cystostomy status; Z98.890 Other specified postprocedural states | CPT/HCPCS: 99212 ==

== ENCOUNTER 2024-03-23 07:34 | Outpatient (AMB) | payer OTHER, SELFPAY ==
--- NOTE | 2024-03-23 07:40 | A.OFFVIS_ITS ---
Intake Visit Reasons: ER Follow Up-Spt Tube Check Allergies No Known Allergies [No Known Allergies*] Allergy (Verified 01/23/24 05:42) HPI Comments Details: 03/23/24--68yo M resident of [facility] pt is nonverbal and bedbound with vascular dementia, CVA with R-sided hemiparesis, neurogenic bladder with chronic SPT, h/o stage 4 sacral decubitus ulcer, hx C. difficile colitis, seizure disorder, HTN, HLD, The patient was evaluated by [facility] in consultation while as an inpatient, 12/2023, he was treated for pyelonephritis. CT showed --Right perinephic stranding, Right staghorn calculus, ureteral stones mild hydro- chronic, similar findings noted in September. renal fxn was stable, and patient was clinically improving with IV antibiotics. Wyatt presents today with family members he is on a stretcher brought by ambulance. In discussion and review of consult notes from [facility] the patient was apparently last seen at [facility] in February he currently has a right nephrostomy tube. The patient's family states that he had a procedure for the right staghorn kidney stone. No documentation is not present regarding urologic surgery, so this is unclear. Examination right nephrostomy tube dressing site clean urine yellow draining well. Evaluation of suprapubic tube. SP tube site was clean no signs of infection, Urine is draining well. Will have staff obtain further information regarding nephrostomy tube placement and any procedures that may have been done. Continue SP tube changes every 4-6 weeks and p.r.n. for clogged. [facility] Medical History Paralytic ileus of small intestine and colon Calculi, ureter Osteomyelitis of sacrum Decubitus ulcer Acute UTI Seizure disorder Chronic constipation Decubitus ulcer of sacral area Osteomyelitis Septic shock C. difficile diarrhea COVID-19 HTN (hypertension) High cholesterol Stroke UTI (urinary tract infection) due to urinary indwelling Walker catheter Essential hypertension Hemiplegia of right dominant side due to acute cerebrovascular disease Cerebrovascular accident (CVA) involving left cerebral hemisphere History of CVA (cerebrovascular accident) HTN (hypertension) Paroxysmal atrial fibrillation Surgical History No pertinent past surgical history Family History Father No problems noted. Mother No problems noted. Social History Household Members: Unknown / Unable to assess Household Members Other:: SNF Housing: Custodial Are you a primary child care attendant school to a significant other at home: No Do you presently have visiting nurse or other home services: No Unable to assess alcohol history related to: Unable to respond Alcohol intake: former Comment: patient sleeping Patient Tobacco Use Status: Tobacco use Unknown Second Hand Smoke Exposure: No Advance Directives Date on File: 07/25/21 service: No Current occupational status: disabled Review of Systems Const Unobtainable due to mental condition Assessment & Plan Assessment & Plan (1) Urinary retention with incomplete bladder emptying: Code(s): R33.9 - Retention of urine, unspecified Category: Medical (2) Neurogenic urinary bladder disorder: Comment: Post stroke December 2019 Code(s): N31.9 - Neuromuscular dysfunction of bladder, unspecified Category: Medical (3) History of recurrent UTIs: Code(s): Z87.440 - Personal history of urinary (tract) infections Category: Medical (4) Chronic suprapubic catheter: Code(s): Z93.59 - Other cystostomy status Category: Surgical (5) History of insertion of nephrostomy tube: Code(s): Z98.890 - Other specified postprocedural states Category: Surgical (6) Staghorn calculus: Code(s): N20.0 - Calculus of kidney Category: Medical (7) Multiple renal calculi: Code(s): N20.0 - Calculus of kidney Category: Medical Plan Will have staff obtain further information regarding nephrostomy tube placement and any procedures that may have been done. Continue SP tube changes every 4-6 weeks and p.r.n. for clogged. Patient Instructions: This note is constructed in part using voice recognition software. While every effort has been made to ensure accuracy stretching machine tender frame errors may have been included. Coding Level of Care Code Est Pt Level 4 (33800) Complex EM visit Add On G2211 Diagnoses Urinary retention with incomplete bladder emptying R33.9 Neurogenic urinary bladder disorder N31.9 History of recurrent UTIs Z87.440 Chronic suprapubic catheter Z93.59 History of insertion of nephrostomy tube Z98.890 Staghorn calculus N20.0 Multiple renal calculi N20.0
--- OUTSIDE RECORDS SUMMARY | 2024-03-23 10:36 | XMS_ITS | Encounter Summary ---
Author Organization [employer] Address [address] [place] [address] Care Team Providers Care Advertising Supervisor Name Role Phone Lauren Wiley MD Primary Care Provider + Encounter Details Date Type Department Care Team (Late st Contact Info) Description 03/03/2024 Lab Requisition [facility] Lab [address] [place] [address] Lauren Wiely MD [address] [phone] Essential (primary) hypertension Social History Tobacco Use Types Packs/Day Years Used Date Smoking Tobacco: Never Assessed Sex and Gender Information Value Date Recorded Sex Assigned at Not on file Gender Identity Not on file Sexual Orientation Not on file documented as of this encounter Plan of Treatment Not on file documented as of this encounter Procedures Procedure Name Priority Date/Time Associated Diagnosis Comments BASIC METABOLIC PANEL Routine 03/06/2024 8:07 AM EST Essential (primary) hypertension documented in this encounter Results * (ABNORMAL) Basic metabolic panel (03/06/2024 8:07 AM EST) Sodium 143 133 - 145 mmol/L LAB CHEMISTRY METHOD 03/06/2024 10:49 AM [facility] Potassium 4.4 3.5 - 5.5 mmol/L LAB CHEMISTRY METHOD 03/06/2024 10:49 AM EST [facility] Chloride 112(H) 96 - 110 mmol/L LAB CHEMISTRY METHOD 03/06/2024 10:49 AM [facility] LAB CO2 28 21 - 32 mmol/L LAB CHEMISTRY METHOD 03/06/2024 10:49 AM EST [facility] Anion Gap 3 3 - 11 LAB CHEMISTRY METHOD 03/06/2024 10:49 AM [facility] LAB Glucose 98 70 - 100 mg/dL LAB CHEMISTRY METHOD 03/06/2024 10:49 AM [facility] LAB BUN 28(H) 5 - 25 mg/dL LAB CHEMISTRY METHOD 03/06/2024 10:49 AM [facility] LAB Creatinine 0.95 0.70 - 1.30 mg/dL LAB CHEMISTRY METHOD 03/06/2024 10:49 AM [facility] LAB eGFR 87 >=60 mL/min/1. 73m2 LAB CHEMISTRY METHOD 03/06/2024 10:49 AM [facility] LAB Comment:Calculation based on the??Chronic Kidney Disease Epidemiology Collaboration (CKD-EPI) equation refit??without adjustment for race. BUN/Creatinine Ratio 29.5 LAB CHEMISTRY METHOD 03/06/2024 10:49 AM [facility] LAB Calcium 8.5 8.5 - 10.5 mg/dL LAB CHEMISTRY METHOD 03/06/2024 10:49 AM [facility] LAB Blood Venous blood specimen / Unknown Venipuncture / Unknown 03/06/2024 8:07 AM EST 03/06/2024 9:07 AM EST Lauren Wiley MD LAB BLOOD ORDERA BLES [facility] [address] [place] [address], documented in this encounter Visit Diagnoses Diagnosis Essential (primary) hypertension Unspecified essential hypertension documented in this encounter Care Teams Advertising Supervisor Relationship Specialty Start Date End Date Lauren Wiley MD [address] [place] [address] PCP - General Family Medicine 01/28/24 documented as of this encounter
--- OUTSIDE RECORDS SUMMARY | 2024-03-23 10:36 | XMS_ITS | Encounter Summary ---
Author Organization [employer] Address [address] [place] [address] Care Team Providers Care Manager Chemical Name Role Phone Lauren Wiley MD Primary Care Provider + Encounter Details Date Type Department Care Team (Late st Contact Info) Description 02/25/2024 Lab Requisition [facility] - Main Lab [address] [place] [address] Lauren Wiley MD [address] [phone] Essential (primary) hypertension Social History Tobacco Use Types Packs/Day Years Used Date Smoking Tobacco: Never Assessed Sex and Gender Information Value Date Recorded Sex Assigned at Not on file Gender Identity Not on file Sexual Orientation Not on file documented as of this encounter Plan of Treatment Not on file documented as of this encounter Procedures Procedure Name Priority Date/Time Associated Diagnosis Comments COMPLETE BLOOD COUNT Routine 02/25/2024 5:00 AM EST Essential (primary) hypertension COMPREHENSIVE METABOLIC PANEL Routine 02/25/2024 5:00 AM EST Essential (primary) hypertension documented in this encounter Results * (ABNORMAL) Comprehensive metabolic panel (02/25/2024 5:00 AM EST) Sodium 150(H) 133 - 145 mmol/L LAB CHEMISTRY METHOD 02/25/2024 12:38 PM EST [facility] Potassium 4.4 3.5 - 5.5 mmol/L LAB CHEMISTRY METHOD 02/25/2024 12:38 PM [facility] Chloride 121(H) 96 - 110 mmol/L LAB CHEMISTRY METHOD 02/25/2024 12:38 PM [facility] CO2 25 21 - 32 mmol/L LAB CHEMISTRY METHOD 02/25/2024 12:38 PM [facility] Anion Gap 4 3 - 11 LAB CHEMISTRY METHOD 02/25/2024 12:38 PM [facility] Glucose 106(H) 70 - 100 mg/dL LAB CHEMISTRY METHOD 02/25/2024 12:38 PM [facility] BUN 38(H) 5 - 25 mg/dL LAB CHEMISTRY METHOD 02/25/2024 12:38 PM [facility] Creatinine 1.01 0.70 - 1.30 mg/dL LAB CHEMISTRY METHOD 02/25/2024 12:38 PM [facility] LAB eGFR 81 >=60 mL/min/1. 73m2 LAB CHEMISTRY METHOD 02/25/2024 12:38 PM [facility] LAB Comment:Calculation based on the??Chronic Kidney Disease Epidemiology Collaboration (CKD-EPI) equation refit??without adjustment for race. BUN/Creatinine Ratio 37.6 LAB CHEMISTRY METHOD 02/25/2024 12:38 PM [facility] Calcium 8.6 8.5 - 10.5 mg/dL LAB CHEMISTRY METHOD 02/25/2024 12:38 PM [facility] AST (SGOT) 18 10 - 42 unit/L LAB CHEMISTRY METHOD 02/25/2024 12:38 PM [facility] ALT (SGPT) 22 10 - 60 unit/L LAB CHEMISTRY METHOD 02/25/2024 12:38 PM [facility] Alkaline Phosphatase 80 42 - 121 unit/L LAB CHEMISTRY METHOD 02/25/2024 12:38 PM [facility] Total Protein 5.6(L) 6.0 - 8.0 g/dL LAB CHEMISTRY METHOD 02/25/2024 12:38 PM [facility] Albumin 2.3(L) 3.2 - 5.0 g/dL LAB CHEMISTRY METHOD 02/25/2024 12:38 PM [facility] Total Bilirubin 0.4 0.0 - 1.4 mg/dL LAB CHEMISTRY METHOD 02/25/2024 12:38 PM [facility] Blood Venous blood specimen / Unknown Venipuncture / Unknown 02/25/2024 5:00 AM EST 02/25/2024 10:40 AM EST Lauren Wiley MD LAB BLOOD ORDERA BLES [facility] [address] [place] [address], * (ABNORMAL) Complete blood count (02/25/2024 5:00 AM EST) WBC 4.4(L) 4.8 - 10.8 K/mcL LAB HEMETOLOGY METHOD 02/25/2024 12:35 PM [facility] RBC 3.10(L) 4.50 - 5.50 M/mcL LAB HEMETOLOGY METHOD 02/25/2024 12:35 PM [facility] Hemoglobin 9.9(L) 13.5 - 17.5 g/dL LAB HEMETOLOGY METHOD 02/25/2024 12:35 PM [facility] Hematocrit 31.0(L) 42.0 - 54.0 % LAB HEMETOLOGY METHOD 02/25/2024 12:35 PM [facility] MCV 99.7(H) 79.0 - 98.0 FL LAB HEMETOLOGY METHOD 02/25/2024 12:35 PM [facility] MCH 31.8 27.0 - 32.0 pcg LAB HEMETOLOGY METHOD 02/25/2024 12:35 PM [facility] MCHC 31.9(L) 32.0 - 37.0 g/dL LAB HEMETOLOGY METHOD 02/25/2024 12:35 PM [facility] RDW 15.5(H) 11.0 - 15.0 % LAB HEMETOLOGY METHOD 02/25/2024 12:35 PM EST [facility] Platelets 189 130 - 400 K/mcL LAB HEMETOLOGY METHOD 02/25/2024 12:35 PM EST [facility] MPV 10.5 7.0 - 11.0 FL LAB HEMETOLOGY METHOD 02/25/2024 12:35 PM EST [facility] NRBC 0.0 <1.0 % LAB HEMETOLOGY METHOD 02/25/2024 12:35 PM [facility] NRBC Absolute 0.00 <0.10 K/mcL LAB HEMETOLOGY METHOD 02/25/2024 12:35 PM [facility] Blood Venous blood specimen / Unknown Venipuncture / Unknown 02/25/2024 5:00 AM EST 02/25/2024 10:40 AM EST Lauren Wiley MD LAB BLOOD ORDERA BLES [facility] [address] [place] [address], documented in this encounter Visit Diagnoses Diagnosis Essential (primary) hypertension Unspecified essential hypertension documented in this encounter Care Teams Manager Chemical Relationship Specialty Start Date End Date Lauren Wiley MD [address] [place] [address] PCP - General Family Medicine 01/28/24 documented as of this encounter
--- OUTSIDE RECORDS SUMMARY | 2024-03-23 10:36 | XMS_ITS | Encounter Summary ---
Author Organization [employer] [facility] Address [address] [place] [address] Care Team Providers Care Burial Vault Deliverer And Installer Name Role Phone Lauren Wiley MD Primary Care Provider + Encounter Details Date Type Department Care Team (Late st Contact Info) Description 02/14/2024 Lab Requisition [facility] Lab [address] [place] [address] Lauren Wiley MD [address] [phone] Pyuria Social History Tobacco Use Types Packs/Day Years [...] Associated Diagnosis Comments COMPLETE BLOOD COUNT Routine 02/14/2024 7:10 AM EST Pyuria COMPREHENSIVE METABOLIC PANEL Routine 02/14/2024 7:10 AM EST Pyuria documented in this encounter Results * (ABNORMAL) Comprehensive metabolic panel (02/14/2024 7:10 AM EST) Sodium 142 133 - 145 mmol/L LAB CHEMISTRY METHOD 02/14/2024 11:12 AM EST [facility] Potassium 3.6 3.5 - 5.5 mmol/L LAB CHEMISTRY METHOD 02/14/2024 11:12 AM EST [facility] Chloride 108 96 - 110 mmol/L LAB CHEMISTRY METHOD 02/14/2024 11:12 AM EST [facility] CO2 32 21 - 32 mmol/L LAB CHEMISTRY METHOD 02/14/2024 11:12 AM [facility] Anion Gap 2(L) 3 - 11 LAB CHEMISTRY METHOD 02/14/2024 11:12 AM [facility] Glucose 106(H) 70 - 100 mg/dL LAB CHEMISTRY METHOD 02/14/2024 11:12 AM [facility] BUN 19 5 - 25 mg/dL LAB CHEMISTRY METHOD 02/14/2024 11:12 AM [facility] Creatinine 0.94 0.70 - 1.30 mg/dL LAB CHEMISTRY METHOD 02/14/2024 11:12 AM [facility] eGFR 88 >=60 mL/min/1. 73m2 LAB CHEMISTRY METHOD 02/14/2024 11:12 AM [facility] Comment:Calculation based on the??Chronic Kidney Disease Epidemiology Collaboration (CKD-EPI) equation refit??without adjustment for race. BUN/Creatinine Ratio 20.2 LAB CHEMISTRY METHOD 02/14/2024 11:12 AM [facility] Calcium 8.6 8.5 - 10.5 mg/dL LAB CHEMISTRY METHOD 02/14/2024 11:12 AM [facility] AST (SGOT) 14 10 - 42 unit/L LAB CHEMISTRY METHOD 02/14/2024 11:12 AM [facility] ALT (SGPT) 12 10 - 60 unit/L LAB CHEMISTRY METHOD 02/14/2024 11:12 AM [facility] Alkaline Phosphatase 85 42 - 121 unit/L LAB CHEMISTRY METHOD 02/14/2024 11:12 AM [facility] Total Protein 4.9(L) 6.0 - 8.0 g/dL LAB CHEMISTRY METHOD 02/14/2024 11:12 AM [facility] Albumin 2.1(L) 3.2 - 5.0 g/dL LAB CHEMISTRY METHOD 02/14/2024 11:12 AM [facility] Total Bilirubin 0.7 0.0 - 1.4 mg/dL LAB CHEMISTRY METHOD 02/14/2024 11:12 AM EST [facility] Blood Venous blood specimen / Unknown Venipuncture / Unknown 02/14/2024 7:10 AM EST 02/14/2024 9:37 AM EST Lauren Wiley MD LAB BLOOD ORDERA BLES [facility] [address] [place] [address], * (ABNORMAL) Complete blood count (02/14/2024 7:10 AM EST) WBC 4.7(L) 4.8 - 10.8 K/mcL LAB HEMETOLOGY METHOD 02/14/2024 10:38 AM [facility] RBC 3.20(L) 4.50 - 5.50 M/mcL LAB HEMETOLOGY METHOD 02/14/2024 10:38 AM [facility] Hemoglobin 10.1(L) 13.5 - 17.5 g/dL LAB HEMETOLOGY METHOD 02/14/2024 10:38 AM [facility] Hematocrit 30.9(L) 42.0 - 54.0 % LAB HEMETOLOGY METHOD 02/14/2024 10:38 AM [facility] MCV 95.4 79.0 - 98.0 FL LAB HEMETOLOGY METHOD 02/14/2024 10:38 AM [facility] MCH 31.2 27.0 - 32.0 pcg LAB HEMETOLOGY METHOD 02/14/2024 10:38 AM [facility] MCHC 32.7 32.0 - 37.0 g/dL LAB HEMETOLOGY METHOD 02/14/2024 10:38 AM [facility] RDW 15.1(H) 11.0 - 15.0 % LAB HEMETOLOGY METHOD 02/14/2024 10:38 AM EST [facility] Platelets 145 130 - 400 K/mcL LAB HEMETOLOGY METHOD 02/14/2024 10:38 AM EST [facility] MPV 9.6 7.0 - 11.0 FL LAB HEMETOLOGY METHOD 02/14/2024 10:38 AM EST [facility] NRBC 0.0 <1.0 % LAB HEMETOLOGY METHOD 02/14/2024 10:38 AM EST [facility] NRBC Absolute 0.00 <0.10 K/mcL LAB HEMETOLOGY METHOD 02/14/2024 10:38 AM EST [facility] Blood Venous blood specimen / Unknown Venipuncture / Unknown 02/14/2024 7:10 AM EST 02/14/2024 9:37 AM EST Lauren Wiley MD LAB BLOOD ORDERA BLES [facility] [address] [place] [address], documented in this encounter Visit Diagnoses Diagnosis Pyuria Other nonspecific finding on examination of urine documented in this encounter Care Teams Burial Vault Deliverer And Installer Relationship Specialty Start Date End Date Lauren Wiley MD [address] [place] [address] PCP - General Family Medicine 01/28/24 documented as of this encounter
--- OUTSIDE RECORDS SUMMARY | 2024-03-23 10:36 | XMS_ITS | Encounter Summary ---
Author Organization [employer] [facility] Address [address] [place] [address] Care Team Providers Care Glue Cook Name Role Phone Elder, Lauren Paulino MD Primary Care Provider + Encounter Details Date Type Department Care Team (Late st Contact Info) Description 02/02/2024 Lab Requisition [facility] Lab [address] [facility] [place] [address] Yoav Osorio MD [address] [place] [address] [address] [place] [phone] Essential (primary) hypertension Social History Tobacco Use Types Packs/Day Years Used Date Smoking Tobacco: Never Assessed Sex and Gender Information Value Date Recorded Sex Assigned at Not on file Gender Identity Not on file Sexual Orientation Not on file documented as of this encounter Plan of Treatment Not on file documented as of this encounter Procedures Procedure Name Priority Date/Time Associated Diagnosis Comments COMPREHENSIVE METABOLIC PANEL Routine 02/02/2024 5:08 AM EST Essential (primary) hypertension documented in this encounter Results * (ABNORMAL) Comprehensive metabolic panel (02/02/2024 5:08 AM EST) Sodium 145 133 - 145 mmol/L LAB CHEMISTRY METHOD 02/02/2024 12:58 PM [facility] Potassium 4.0 3.5 - 5.5 mmol/L LAB CHEMISTRY METHOD 02/02/2024 12:58 PM [facility] Chloride 113(H) 96 - 110 mmol/L LAB CHEMISTRY METHOD 02/02/2024 12:58 PM [facility] CO2 27 21 - 32 mmol/L LAB CHEMISTRY METHOD 02/02/2024 12:58 PM EST [facility] Anion Gap 5 3 - 11 LAB CHEMISTRY METHOD 02/02/2024 12:58 PM [facility] Glucose 71 70 - 100 mg/dL LAB CHEMISTRY METHOD 02/02/2024 12:58 PM [facility] BUN 31(H) 5 - 25 mg/dL LAB CHEMISTRY METHOD 02/02/2024 12:58 PM [facility] Comment:Results verified by repeat testing Creatinine 0.92 0.70 - 1.30 mg/dL LAB CHEMISTRY METHOD 02/02/2024 12:58 PM [facility] eGFR 90 >=60 mL/min/1. 73m2 LAB CHEMISTRY METHOD 02/02/2024 12:58 PM [facility] Comment:Calculation based on the??Chronic Kidney Disease Epidemiology Collaboration (CKD-EPI) equation refit??without adjustment for race. BUN/Creatinine Ratio 33.7 LAB CHEMISTRY METHOD 02/02/2024 12:58 PM [facility] Calcium 8.6 8.5 - 10.5 mg/dL LAB CHEMISTRY METHOD 02/02/2024 12:58 PM [facility] AST (SGOT) 18 10 - 42 unit/L LAB CHEMISTRY METHOD 02/02/2024 12:58 PM [facility] ALT (SGPT) 18 10 - 60 unit/L LAB CHEMISTRY METHOD 02/02/2024 12:58 PM [facility] Alkaline Phosphatase 94 42 - 121 unit/L LAB CHEMISTRY METHOD 02/02/2024 12:58 PM [facility] Total Protein 5.4(L) 6.0 - 8.0 g/dL LAB CHEMISTRY METHOD 02/02/2024 12:58 PM [facility] Albumin 2.3(L) 3.2 - 5.0 g/dL LAB CHEMISTRY METHOD 02/02/2024 12:58 PM [facility] Total Bilirubin 0.5 0.0 - 1.4 mg/dL LAB CHEMISTRY METHOD 02/02/2024 12:58 PM EST [facility] Blood Venous blood specimen / Unknown Venipuncture / Unknown 02/02/2024 5:08 AM EST 02/02/2024 10:37 AM EST Yoav Osorio MD LAB BLOOD ORDERABLES [facility] [address] [place] [address], documented in this encounter Visit Diagnoses Diagnosis Essential (primary) hypertension Unspecified essential hypertension documented in this encounter Care Teams Glue Cook Relationship Specialty Start Date End Date Lauren Wiley MD [address] [place] [address] PCP - General Family Medicine 01/28/24 documented as of this encounter
--- OUTSIDE RECORDS SUMMARY | 2024-03-23 10:36 | XMS_ITS | Encounter Summary ---
Author Organization [employer] Address [address] [place] [address] Care Team Providers Care Nutrition Coordinator Name Role Phone Lauren Wiley MD Primary Care Provider + Encounter Details Date Type Department Care Team (Late st Contact Info) Description 01/28/[address] [facility] Lab [address] [place] [address] Lauren Wiley MD [address] [phone] Elevated white blood cell count, unspecified Social History Tobacco Use Types Packs/Day Years [...] Associated Diagnosis Comments COMPLETE BLOOD COUNT Routine 01/28/2024 5:27 AM EST Elevated white blood cell count, unspecified BASIC METABOLIC PANEL Routine 01/28/2024 5:27 AM EST Elevated white blood cell count, unspecified documented in this encounter Results * (ABNORMAL) Basic metabolic panel (01/28/2024 5:27 AM EST) Sodium 144 133 - 145 mmol/L LAB CHEMISTRY METHOD 01/28/2024 11:[address] [facility] Potassium 3.9 3.5 - 5.5 mmol/L LAB CHEMISTRY METHOD 01/28/2024 11:[address] [facility] Chloride 114(H) 96 - 110 mmol/L LAB CHEMISTRY METHOD 01/28/2024 11:[address] [facility] CO2 25 21 - 32 mmol/L LAB CHEMISTRY METHOD 01/28/2024 11:23 AM [facility] Anion Gap 5 3 - 11 LAB CHEMISTRY METHOD 01/28/2024 11:23 AM [facility] Glucose 94 70 - 100 mg/dL LAB CHEMISTRY METHOD 01/28/2024 11:23 AM [facility] BUN 17 5 - 25 mg/dL LAB CHEMISTRY METHOD 01/28/2024 11:23 AM [facility] Creatinine 0.83 0.70 - 1.30 mg/dL LAB CHEMISTRY METHOD 01/28/2024 11:23 AM [facility] eGFR 95 >=60 mL/min/1. 73m2 LAB CHEMISTRY METHOD 01/28/2024 11:23 AM [facility] Comment:Calculation based on the??Chronic Kidney Disease Epidemiology Collaboration (CKD-EPI) equation refit??without adjustment for race. BUN/Creatinine Ratio 20.5 LAB CHEMISTRY METHOD 01/28/2024 11:23 AM [facility] Calcium 8.3(L) 8.5 - 10.5 mg/dL LAB CHEMISTRY METHOD 01/28/2024 11:23 AM [facility] Blood Venous blood specimen / Unknown Venipuncture / Unknown 01/28/2024 5:27 AM EST 01/28/2024 10:37 AM EST Lauren Wiley MD LAB BLOOD ORDERA BLES [facility] [address] [place] [address], * (ABNORMAL) Complete blood count (01/28/2024 5:27 AM EST) WBC 4.2(L) 4.8 - 10.8 K/mcL LAB HEMETOLOGY METHOD 01/28/2024 11:22 AM [facility] RBC 3.40(L) 4.50 - 5.50 M/mcL LAB HEMETOLOGY METHOD 01/28/2024 11:22 AM [facility] Hemoglobin 10.5(L) 13.5 - 17.5 g/dL LAB HEMETOLOGY METHOD 01/28/2024 11:22 AM [facility] Hematocrit 32.3(L) 42.0 - 54.0 % LAB HEMETOLOGY METHOD 01/28/2024 11:22 AM [facility] MCV 96.4 79.0 - 98.0 FL LAB HEMETOLOGY METHOD 01/28/2024 11:22 AM [facility] MCH 31.3 27.0 - 32.0 pcg LAB HEMETOLOGY METHOD 01/28/2024 11:22 AM [facility] MCHC 32.5 32.0 - 37.0 g/dL LAB HEMETOLOGY METHOD 01/28/2024 11:22 AM [facility] RDW 14.4 11.0 - 15.0 % LAB HEMETOLOGY METHOD 01/28/2024 11:22 AM [facility] Platelets 132 130 - 400 K/mcL LAB HEMETOLOGY METHOD 01/28/2024 11:22 AM [facility] MPV 9.7 7.0 - 11.0 FL LAB HEMETOLOGY METHOD 01/28/2024 11:22 AM [facility] NRBC 0.0 <1.0 % LAB HEMETOLOGY METHOD 01/28/2024 11:22 AM [facility] NRBC Absolute 0.00 <0.10 K/mcL LAB HEMETOLOGY METHOD 01/28/2024 11:22 AM [facility] Blood Venous blood specimen / Unknown Venipuncture / Unknown 01/28/2024 5:27 AM EST 01/28/2024 10:37 AM EST Lauren Wiley MD LAB [facility]LOOD [facility] BLES [facility] [address] [place] [address], documented in this encounter Visit Diagnoses Diagnosis Elevated white blood cell count, unspecified documented in this encounter Care Teams Nutrition Coordinator Relationship Specialty Start Date End Date Lauren Wiley MD [address] [place] [address] PCP - General Family Medicine 01/28/24 documented as of this encounter
--- OUTSIDE RECORDS SUMMARY | 2024-03-23 10:36 | XMS_ITS | Encounter Summary ---
Author Organization [employer] Address [address] [place] [address] Care Team Providers Care Storm Door Maker Name Role Phone Lauren Wiley MD Primary Care Provider + Encounter Details Date Type Department Care Team (Late st Contact Info) Description 03/15/2024 Lab Requisition [facility] - Main Lab [address] [place] [address] Lauren Wiley MD [address] [address] Diarrhea, unspecified; Enterocolitis due to Clostridium difficile, recurrent Social History Tobacco Use Types Packs/Day Years Used Date Smoking Tobacco: Never Assessed Sex and Gender Information Value Date Recorded Sex Assigned at Not on file Gender Identity Not on file Sexual Orientation Not on file documented as of this encounter Plan of Treatment Not on file documented as of this encounter Procedures Procedure Name Priority Date/Time Associated Diagnosis Comments CLOSTRIDIUM DIFFICILE TOXIN Routine 03/14/2024 10:25 PM EST Diarrhea, unspecified Enterocolitis due to Clostridium difficile, recurrent documented in this encounter Results * Clostridium difficile toxin (03/14/2024 10:25 PM EST) Clostridium difficile GDH Antigen Negative Negative 03/15/2024 1:[address] [facility] C difficile Toxins A+B, EIA Negative Negative 03/15/2024 1:[address] [facility] Comment:NEGATIVE FOR TOXIN P RODUCING CLOSTRIDIOIDES DIFFICILE, NO ADDITIONAL TESTING IS NECESSARY. Stool Rectum structure / Unknown Non-blood Collection / Unknown 03/14/2024 10:25 PM EST 03/15/2024 12:16 PM EST Lauren Wiley MD LAB MICROBIOLOGY - GENERAL ORDERABLES [facility] ([facility]) [facility] [address] [place] [address], documented in this encounter Visit Diagnoses Diagnosis Diarrhea, unspecified Enterocolitis due to Clostridium difficile, recurrent documented in this encounter Care Teams Storm Door Maker Relationship Specialty Start Date End Date Lauren Wiley MD [address] [place] [address] PCP - General Family Medicine 01/28/24 documented as of this encounter
--- OUTSIDE RECORDS SUMMARY | 2024-03-23 10:36 | XMS_ITS | Encounter Summary ---
Author Organization [employer] Address [address] [place] [address] Care Team Providers Care Tax Services Manager Name Role Phone Elder, Lauren Paulino MD Primary Care Provider + Encounter Details Date Type Department Care Team (Late st Contact Info) Description 03/03/2024 Lab Requisition [facility] Lab [address] [facility] [place] [address] Yoav Osorio MD [address] [place] [address] [address] [place] [address] Essential (primary) hypertension Social History Tobacco Use [...] Associated Diagnosis Comments BASIC METABOLIC PANEL Routine 03/03/2024 5:53 AM EST Essential (primary) hypertension documented in this encounter Results * (ABNORMAL) Basic metabolic panel (03/03/2024 5:53 AM EST) Sodium 145 133 - 145 mmol/L LAB CHEMISTRY METHOD 03/03/2024 11:04 AM [facility] Potassium 4.0 3.5 - 5.5 mmol/L LAB CHEMISTRY METHOD 03/03/2024 11:04 AM [facility] Chloride 118(H) 96 - 110 mmol/L LAB CHEMISTRY METHOD 03/03/2024 11:04 AM [facility] CO2 25 21 - 32 mmol/L LAB CHEMISTRY METHOD 03/03/2024 11:04 AM [facility] Anion Gap 2(L) 3 - 11 LAB CHEMISTRY METHOD 03/03/2024 11:04 AM [facility] Glucose 90 70 - 100 mg/dL LAB CHEMISTRY METHOD 03/03/2024 11:04 AM [facility] BUN 36(H) 5 - 25 mg/dL LAB CHEMISTRY METHOD 03/03/2024 11:04 AM [facility] Creatinine 0.99 0.70 - 1.30 mg/dL LAB CHEMISTRY METHOD 03/03/2024 11:04 AM [facility] eGFR 82 >=60 mL/min/1. 73m2 LAB CHEMISTRY METHOD 03/03/2024 11:04 AM [facility] Comment:Calculation based on the??Chronic Kidney Disease Epidemiology Collaboration (CKD-EPI) equation refit??without adjustment for race. BUN/Creatinine Ratio 36.4 LAB CHEMISTRY METHOD 03/03/2024 11:04 AM [facility] Calcium 8.1(L) 8.5 - 10.5 mg/dL LAB CHEMISTRY METHOD 03/03/2024 11:04 AM [facility] Blood Venous blood specimen / Unknown Venipuncture / Unknown 03/03/2024 5:53 AM EST 03/03/2024 9:12 AM EST Yoav Osorio MD LAB BLOOD ORDERABLES [facility] [address] [place] [address], documented in this encounter Visit Diagnoses Diagnosis Essential (primary) hypertension Unspecified essential hypertension documented in this encounter Care Teams Tax Services Manager Relationship Specialty Start Date End Date Lauren Wiley MD [address] [place] [address] PCP - General Family Medicine 01/28/24 documented as of this encounter
--- OUTSIDE RECORDS SUMMARY | 2024-03-23 10:36 | XMS_ITS | Encounter Summary ---
Author Organization [email or web address] Address [address] [place] [address] Care Team Providers Care Anesthesiologist Physician Name Role Phone Lauren Wiley MD Primary Care Provider + Encounter Details Date Type Department Care Team (Late st Contact Info) Description 03/15/2024 Lab Requisition [facility] Lab [address] [place] [address] Lauren Wiley MD [address] [phone] Essential (primary) hypertension; Anemia, unspecified Social History Tobacco Use Types Packs/Day [...] Associated Diagnosis Comments COMPLETE BLOOD COUNT Routine 03/15/2024 5:05 AM EST Essential (primary) hypertension Anemia, unspecified COMPREHENSIVE METABOLIC PANEL Routine 03/15/2024 5:05 AM EST Essential (primary) hypertension Anemia, unspecified documented in this encounter Results * (ABNORMAL) Comprehensive metabolic panel (03/15/2024 5:05 AM EST) Sodium 142 133 - 145 mmol/L LAB CHEMISTRY METHOD 03/15/2024 3:35 PM EST [facility] Potassium 4.3 3.5 - 5.5 mmol/L LAB CHEMISTRY METHOD 03/15/2024 3:35 PM [facility] Chloride 114(H) 96 - 110 mmol/L LAB CHEMISTRY METHOD 03/15/2024 3:35 PM [facility] CO2 26 21 - 32 mmol/L LAB CHEMISTRY METHOD 03/15/2024 3:35 PM [facility] Anion Gap 2(L) 3 - 11 LAB CHEMISTRY METHOD 03/15/2024 3:35 PM [facility] Glucose 98 70 - 100 mg/dL LAB CHEMISTRY METHOD 03/15/2024 3:35 PM [facility] BUN 33(H) 5 - 25 mg/dL LAB CHEMISTRY METHOD 03/15/2024 3:35 PM [facility] Creatinine 1.00 0.70 - 1.30 mg/dL LAB CHEMISTRY METHOD 03/15/2024 3:35 PM [facility] eGFR 81 >=60 mL/min/1. 73m2 LAB CHEMISTRY METHOD 03/15/2024 3:35 PM [facility] Comment:Calculation based on the??Chronic Kidney Disease Epidemiology Collaboration (CKD-EPI) equation refit??without adjustment for race. BUN/Creatinine Ratio 33.0 LAB CHEMISTRY METHOD 03/15/2024 3:35 PM [facility] Calcium 8.6 8.5 - 10.5 mg/dL LAB CHEMISTRY METHOD 03/15/2024 3:35 PM [facility] AST (SGOT) 19 10 - 42 unit/L LAB CHEMISTRY METHOD 03/15/2024 3:35 PM [facility] ALT (SGPT) 22 10 - 60 unit/L LAB CHEMISTRY METHOD 03/15/2024 3:35 PM [facility] Alkaline Phosphatase 91 42 - 121 unit/L LAB CHEMISTRY METHOD 03/15/2024 3:35 PM [facility] Total Protein 5.7(L) 6.0 - 8.0 g/dL LAB CHEMISTRY METHOD 03/15/2024 3:35 PM [facility] Albumin 2.3(L) 3.2 - 5.0 g/dL LAB CHEMISTRY METHOD 03/15/2024 3:35 PM [facility] Total Bilirubin 0.4 0.0 - 1.4 mg/dL LAB CHEMISTRY METHOD 03/15/2024 3:35 PM [facility] Blood Venous blood specimen / Unknown Venipuncture / Unknown 03/15/2024 5:05 AM EST 03/15/2024 11:34 AM EST Lauren Wiley MD LAB BLOOD ORDERA BLES [facility] [address] [place] [address], * (ABNORMAL) Complete blood count (03/15/2024 5:05 AM EST) WBC 4.1(L) 4.8 - 10.8 K/mcL LAB HEMETOLOGY METHOD 03/15/2024 12:22 PM [facility] RBC 3.10(L) 4.50 - 5.50 M/mcL LAB HEMETOLOGY METHOD 03/15/2024 12:22 PM [facility] Hemoglobin 10.1(L) 13.5 - 17.5 g/dL LAB HEMETOLOGY METHOD 03/15/2024 12:22 PM [facility] Hematocrit 31.0(L) 42.0 - 54.0 % LAB HEMETOLOGY METHOD 03/15/2024 12:22 PM [facility] MCV 99.4(H) 79.0 - 98.0 FL LAB HEMETOLOGY METHOD 03/15/2024 12:22 PM [facility] MCH 32.4(H) 27.0 - 32.0 pcg LAB HEMETOLOGY METHOD 03/15/2024 12:22 PM [facility] MCHC 32.6 32.0 - 37.0 g/dL LAB HEMETOLOGY METHOD 03/15/2024 12:22 PM [facility] RDW 15.5(H) 11.0 - 15.0 % LAB HEMETOLOGY METHOD 03/15/2024 12:22 PM EST [facility] Platelets 137 130 - 400 K/mcL LAB HEMETOLOGY METHOD 03/15/2024 12:22 PM EST [facility] MPV 10.7 7.0 - 11.0 FL LAB HEMETOLOGY METHOD 03/15/2024 12:22 PM EST [facility] NRBC 0.0 <1.0 % LAB HEMETOLOGY METHOD 03/15/2024 12:22 PM EST [facility] NRBC Absolute 0.00 <0.10 K/mcL LAB HEMETOLOGY METHOD 03/15/2024 12:22 PM EST [facility] Blood Venous blood specimen / Unknown Venipuncture / Unknown 03/15/2024 5:05 AM EST 03/15/2024 11:34 AM EST Lauren Wiley MD LAB BLOOD ORDERA BLES [facility] [address] [place] [address], documented in this encounter Visit Diagnoses Diagnosis Essential (primary) hypertension Unspecified essential hypertension Anemia, unspecified documented in this encounter Care Teams Anesthesiologist Physician Relationship Specialty Start Date End Date Lauren Wiley MD [address] [place] [address] PCP - General Family Medicine 01/28/24 documented as of this encounter
--- OUTSIDE RECORDS SUMMARY | 2024-03-23 10:37 | XMS_ITS | Encounter Summary ---
Author Organization [facility] Address [address] [place] [address] Care Team Providers Care Concrete Mason Name Role Phone Lauren Wiley MD Primary Care Provider + Encounter Details Date Type Department Care Team (Late st Contact Info) Description 12/27/2023 Lab Requisition [facility] Lab [address] [place] [address] Lauren Wiley MD [address] [phone] Anemia, unspecified; Essential (primary) hypertension Social History Tobacco Use Types Packs/Day Years Used Date Smoking Tobacco: Never Assessed Sex and Gender Information Value Date Recorded Sex Assigned at Not on file Gender Identity Not on file Sexual Orientation Not on file documented as of this encounter Plan of Treatment Not on file documented as of this encounter Procedures Procedure Name Priority Date/Time Associated Diagnosis Comments TRAVEL PHLEBOTOMY FEE Routine 12/27/2023 9:02 AM EST Anemia, unspecified Essential (primary) hypertension ZINC Routine 12/27/2023 9:02 AM EST Anemia, unspecified Essential (primary) hypertension documented in this encounter Results * Travel phlebotomy fee (12/27/2023 9:02 AM EST) [facility] TRAVEL PHLEBOTOMY FEE Completed 12/27/2023 12:01 PM EST [facility] Blood Venous blood specimen / Unknown Venipuncture / Unknown 12/27/2023 9:02 AM EST 12/27/2023 11:39 AM EST Lauren Wiley MD LAB BLOOD ORDERA BLES [facility] [address] [place] [address], * Zinc (12/27/2023 9:02 AM EST) Zinc 61 60 - 130 ug/dL 12/30/2023 12:30 PM EST [facility] Comment: Elevated results may be due to sample collected in a non-certified trace element-free tube. This test was developed and the performance characteristics determined by [facility]. It has not been cleared or approved by the FDA. The laboratory is regulated under CLIA as qualified to perform high-complexity testing. This test is used for patient testing purposes. It should not be regarded as investigational or for research. Test performed at [facility], [address] , [place], [place] ??[address] ? [phone] Jeannette Lopez MD, PhD - Tennis Instructor Blood Venous blood specimen / Unknown Venipuncture / Unknown 12/27/2023 9:02 AM EST 12/27/2023 11:39 AM EST Lauren Wiley MD LAB BLOOD ORDERA BLES [facility] [address] [place] [address] documented in this encounter Visit Diagnoses Diagnosis Anemia, unspecified Essential (primary) hypertension Unspecified essential hypertension documented in this encounter Care Teams Concrete Mason Relationship Specialty Start Date End Date Lauren Wiley MD [address] [place] [address] PCP - General Family Medicine 01/28/24 documented as of this encounter
--- OUTSIDE RECORDS SUMMARY | 2024-03-23 10:37 | XMS_ITS | Encounter Summary ---
Author Organization [employer] Address [address] [place] [address] Care Team Providers Care Video Software Engineer Name Role Phone Lauren Wiley MD Primary Care Provider + Encounter Details Date Type Department Care Team (Late st Contact Info) Description 12/27/[address] [facility] - [facility] Lab [address] [facility] [place] [address] Social History Tobacco Use Types Packs/Day Years Used Date Smoking Tobacco: Never Assessed Sex and Gender Information Value Date Recorded Sex Assigned at Not on file Gender Identity Not on file Sexual Orientation Not on file documented as of this encounter Plan of Treatment Not on file documented as of this encounter Visit Diagnoses Not on filedocumented in this encounter Care Teams Video Software Engineer Relationship Specialty Start Date End Date Lauren Wiley MD [address] [place] [address] PCP - General Family Medicine 01/28/24 documented as of this encounter
--- OUTSIDE RECORDS SUMMARY | 2024-03-23 10:37 | XMS_ITS | Clinical Summary ---
Author Organization [address] [facility] Address [address] [place] [address] Phone Care Team Providers Care Acls Specialist Name Role Phone Lauren Wiley MD Primary Care Provider + Encounters Date Type Department Care Team Description 03/15/2024 Lab Requisition [facility] [address] [place] [address] Lauren Wiley MD Essential (primary) hypertension; Anemia, unspecified 03/15/2024 Lab Requisition [facility] [address] [place] [address] Lauren Wiley MD Diarrhea, unspecified; Enterocolitis due to Clostridium difficile, recurrent 03/03/2024 Lab Requisition [facility] [address] [place] [address] Lauren Wiley MD Essential (primary) hypertension 03/03/2024 Lab Requisition [facility] [address] [place] [address] Yoav Osorio MD Essential (primary) hypertension 02/25/[address] [facility] Lab [address] [place] [address] Lauren Wiley MD Essential (primary) hypertension 02/14/2024 Lab Requisition [facility] [address] [place] [address] Lauren Wiley MD Pyuria 02/02/[address] [facility] [address] [place] [address] Yoav Osorio MD Essential (primary) hypertension 01/28/2024 Lab Requisition [facility] - [facility] Lab [address] [place] [phone] Lauren Wiley MD Elevated white blood cell count, unspecified 12/27/2023 Lab Requisition [facility] Lab [address] [place] [phone] Lauren Wiley MD Anemia, unspecified; Essential (primary) hypertension 12/27/2023 Lab Requisition [facility] Lab [address] [place] [phone] from Last 3 Months Social History Tobacco Use Types Packs/Day Years Used Date Smoking Tobacco: Never Assessed Sex and Gender Information Value Date Recorded Sex Assigned at Not on file Gender Identity Not on file Sexual Orientation Not on file Plan of Treatment Health Maintenance Due Date Last Done Comments DTaP,Tdap,and Td Vaccines (1 - Tdap) 1973 Zoster Vaccines (1 of 2) 2004 Pneumococcal Vaccine: 65+ Years (1 of 1 - PCV) 09/30/2019 Abdominal Aortic Aneurysm (AAA) Screen 01/25/2022 Cholesterol Screening (Lipid Panel) 01/25/2022 Colorectal Cancer Screening: Colonoscopy 01/25/2022 Depression Screening 01/25/2022 Falls Risk Assessment 01/25/2022 Hepatitis C Screening 01/25/2022 Social Influencers of Health Screening 01/25/2022 COVID-19 Vaccine ( season) 2023 Influenza Vaccine (#1) 2023 Hypertension/CHF/CAD Annual BMP Blood Test 03/15/2025 03/15/2024, 03/06/2024, 03/03/2024, Additional history exists RSV Immunization Patients 60+ Years Old (1 - 1-dose 75+ series) 2029 HIB Vaccines Aged Out No longer eligi ble based on patient's age to complete this topic HPV Vaccines Aged Out No longer eligi ble based on patient's age to complete this topic Hepatitis A Vaccines Aged Out No long er eligible based on patient's age to complete this topic Hepatitis B Vaccines Aged Out No long er eligible based on patient's age to complete this topic IPV Vaccines Aged Out No longer eligi ble based on patient's age to complete this topic MMR Vaccines Aged Out No longer eligi ble based on patient's age to complete this topic Meningococcal ACWY Vaccine Aged Out N o longer eligible based on patient's age to complete this topic RSV Immunization Patients Under 20 months Aged Out No longer eligible based on patient's age to complete this topic Varicella Vaccines Aged Out No longer eligible based on patient's age to complete this topic Procedures Procedure Name Priority Date/Time Associated Diagnosis Comments COMPREHENSIVE METABOLIC PANEL Routine 03/15/2024 5:05 AM EST Essential (primary) hypertension Anemia, unspecified COMPLETE BLOOD COUNT Routine 03/15/2024 5:05 AM EST Essential (primary) hypertension Anemia, unspecified CLOSTRIDIUM DIFFICILE TOXIN Routine 03/14/2024 10:25 PM EST Diarrhea, unspecified Enterocolitis due to Clostridium difficile, recurrent BASIC METABOLIC PANEL Routine 03/06/2024 8:07 AM EST Essential (primary) hypertension BASIC METABOLIC PANEL Routine 03/03/2024 5:53 AM EST Essential (primary) hypertension COMPREHENSIVE METABOLIC PANEL Routine 02/25/2024 5:00 AM EST Essential (primary) hypertension COMPLETE BLOOD COUNT Routine 02/25/2024 5:00 AM EST Essential (primary) hypertension COMPREHENSIVE METABOLIC PANEL Routine 02/14/2024 7:10 AM EST Pyuria COMPLETE BLOOD COUNT Routine 02/14/2024 7:10 AM EST Pyuria COMPREHENSIVE METABOLIC PANEL Routine 02/02/2024 5:08 AM EST Essential (primary) hypertension BASIC METABOLIC PANEL Routine 01/28/2024 5:27 AM EST Elevated white blood cell count, unspecified COMPLETE BLOOD COUNT Routine 01/28/2024 5:27 AM EST Elevated white blood cell count, unspecified TRAVEL PHLEBOTOMY FEE Routine 12/27/2023 9:02 AM EST Anemia, unspecified Essential (primary) hypertension ZINC Routine 12/27/2023 9:02 AM EST Anemia, unspecified Essential (primary) hypertension from Last 3 Months Results * (ABNORMAL) Complete blood count (03/15/2024 5:05 AM EST) Only the most recent of4 resultswithin the time period is included. [facility] WBC 4.1(L) 4.8 - 10.8 K/mcL LAB HEMETOLOGY METHOD 03/15/2024 12:22 PM [facility] RBC 3.10(L) 4.50 - 5.50 M/mcL LAB HEMETOLOGY METHOD 03/15/2024 12:22 PM [facility] Hemoglobin 10.1(L) 13.5 - 17.5 g/dL LAB HEMETOLOGY METHOD 03/15/2024 12:22 PM [facility] Hematocrit 31.0(L) 42.0 - 54.0 % LAB HEMETOLOGY METHOD 03/15/2024 12:22 PM [facility] MCV 99.4(H) 79.0 - 98.0 FL LAB HEMETOLOGY METHOD 03/15/2024 12:22 PM [facility] MCH 32.4(H) 27.0 - 32.0 pcg LAB HEMETOLOGY METHOD 03/15/2024 12:22 PM [facility] MCHC 32.6 32.0 - 37.0 g/dL LAB HEMETOLOGY METHOD 03/15/2024 12:22 PM [facility] RDW 15.5(H) 11.0 - 15.0 % LAB HEMETOLOGY METHOD 03/15/2024 12:22 PM [facility] Platelets 137 130 - 400 K/mcL LAB HEMETOLOGY METHOD 03/15/2024 12:22 PM EST [facility] MPV 10.7 7.0 - 11.0 FL LAB HEMETOLOGY METHOD 03/15/2024 12:22 PM EST [facility] NRBC 0.0 <1.0 % LAB HEMETOLOGY METHOD 03/15/2024 12:22 PM [facility] NRBC Absolute 0.00 <0.10 K/mcL LAB HEMETOLOGY METHOD 03/15/2024 12:22 PM [facility] Blood Venous blood specimen / Unknown Venipuncture / Unknown 03/15/2024 5:05 AM EST 03/15/2024 11:34 AM EST Lauren Wiley MD LAB BLOOD ORDERA BLES [facility] [address] [place] [address], * (ABNORMAL) Comprehensive metabolic panel (03/15/2024 5:05 AM EST) Only the most recent of4 resultswithin the time period is included. Sodium 142 133 - 145 mmol/L LAB CHEMISTRY METHOD 03/15/2024 3:35 PM [facility] Potassium 4.3 3.5 - 5.5 mmol/L LAB CHEMISTRY METHOD 03/15/2024 3:35 PM [facility] Chloride 114(H) 96 - 110 mmol/L LAB CHEMISTRY METHOD 03/15/2024 3:35 PM [facility] CO2 26 21 - 32 mmol/L LAB CHEMISTRY METHOD 03/15/2024 3:35 PM [facility] Anion Gap 2(L) 3 - 11 LAB CHEMISTRY METHOD 03/15/2024 3:35 PM [facility] Glucose 98 70 - 100 mg/dL LAB CHEMISTRY METHOD 03/15/2024 3:35 PM [facility] BUN 33(H) 5 - 25 mg/dL LAB CHEMISTRY METHOD 03/15/2024 3:35 PM [facility] Creatinine 1.00 0.70 - 1.30 mg/dL LAB CHEMISTRY METHOD 03/15/2024 3:35 PM [facility] eGFR 81 >=60 mL/min/1. 73m2 LAB CHEMISTRY METHOD 03/15/2024 3:35 PM [facility] Comment:Calculation based on the??Chronic Kidney Disease Epidemiology Collaboration (CKD-EPI) equation refit??without adjustment for race. BUN/Creatinine Ratio 33.0 LAB CHEMISTRY METHOD 03/15/2024 3:35 PM [facility] Calcium 8.6 8.5 - 10.5 mg/dL LAB CHEMISTRY METHOD 03/15/2024 3:35 PM [facility] AST (SGOT) 19 10 - 42 unit/L LAB CHEMISTRY METHOD 03/15/2024 3:35 PM [facility] ALT (SGPT) 22 10 - 60 unit/L LAB CHEMISTRY METHOD 03/15/2024 3:35 PM [facility] Alkaline Phosphatase 91 42 - 121 unit/L LAB CHEMISTRY METHOD 03/15/2024 3:35 PM [facility] Total Protein 5.7(L) 6.0 - 8.0 g/dL LAB CHEMISTRY METHOD 03/15/2024 3:35 PM [facility] Albumin 2.3(L) 3.2 - 5.0 g/dL LAB CHEMISTRY METHOD 03/15/2024 3:35 PM [facility] Total Bilirubin 0.4 0.0 - 1.4 mg/dL LAB CHEMISTRY METHOD 03/15/2024 3:35 PM [facility] Blood Venous blood specimen / Unknown Venipuncture / Unknown 03/15/2024 5:05 AM EST 03/15/2024 11:34 AM EST Lauren Wiley MD LAB BLOOD ORDERA BLES Performing Organization Address City/[facility]/ZIP Co de Phone Number [facility] [address] [place] [address], [place] [phone] * Clostridium difficile toxin (03/14/2024 10:25 PM EST) Pathologist [facility] Clostridium difficile GDH Antigen Negative Negative 03/15/2024 1:20 PM EST [facility] C difficile Toxins A+B, EIA Negative Negative 03/15/2024 1:20 PM EST [facility] Comment:NEGATIVE FOR TOXIN P RODUCING CLOSTRIDIOIDES DIFFICILE, NO ADDITIONAL TESTING IS NECESSARY. Stool Rectum structure / Unknown Non-blood Collection / Unknown 03/14/2024 10:25 PM EST 03/15/2024 12:16 PM EST Lauren Wiley MD LAB MICROBIOLOGY - GENERAL ORDERABLES Performing Organization Address [facility]/ZIP Co de Phone Number [facility] [address] [place] [address], [place] [phone] * (ABNORMAL) Basic metabolic panel (03/06/2024 8:07 AM EST) Only the most recent of3 resultswithin the time period is included. Pathologist [facility] Sodium 143 133 - 145 mmol/L LAB CHEMISTRY METHOD 03/06/2024 10:49 AM [facility] Potassium 4.4 3.5 - 5.5 mmol/L LAB CHEMISTRY METHOD 03/06/2024 10:49 AM [facility] Chloride 112(H) 96 - 110 mmol/L LAB CHEMISTRY METHOD 03/06/2024 10:49 AM [facility] CO2 28 21 - 32 mmol/L LAB CHEMISTRY METHOD 03/06/2024 10:49 AM [facility] Anion Gap 3 3 - 11 LAB CHEMISTRY METHOD 03/06/2024 10:49 AM [facility] Glucose 98 70 - 100 mg/dL LAB CHEMISTRY METHOD 03/06/2024 10:49 AM [facility] BUN 28(H) 5 - 25 mg/dL LAB CHEMISTRY METHOD 03/06/2024 10:49 AM [facility] Creatinine 0.95 0.70 - 1.30 mg/dL LAB CHEMISTRY METHOD 03/06/2024 10:49 AM [facility] eGFR 87 >=60 mL/min/1. 73m2 LAB CHEMISTRY METHOD 03/06/2024 10:49 AM [facility] Comment:Calculation based on the??Chronic Kidney Disease Epidemiology Collaboration (CKD-EPI) equation refit??without adjustment for race. BUN/Creatinine Ratio 29.5 LAB CHEMISTRY METHOD 03/06/2024 10:49 AM [facility] Calcium 8.5 8.5 - 10.5 mg/dL LAB CHEMISTRY METHOD 03/06/2024 10:49 AM [facility] Blood Venous blood specimen / Unknown Venipuncture / Unknown 03/06/2024 8:07 AM EST 03/06/2024 9:07 AM EST Lauren Wiley MD LAB BLOOD ORDERA BLES [facility] [address] [place] [address], * Travel phlebotomy fee (12/27/2023 9:02 AM EST) [facility] TRAVEL PHLEBOTOMY FEE Completed 12/27/2023 12:01 PM EST [facility] Blood Venous blood specimen / Unknown Venipuncture / Unknown 12/27/2023 9:02 AM EST 12/27/2023 11:39 AM EST Lauren Wiley MD LAB BLOOD ORDERA BLES [facility] [place] ([facility]) [facility] [address] [place] [address], * Zinc (12/27/2023 9:02 AM EST) Zinc 61 60 - 130 ug/dL 12/30/2023 12:30 PM EST [facility] Comment: Elevated results may be due to sample collected in a non-certified trace element-free tube. This test was developed and the performance characteristics determined by [facility]. It has not been cleared or approved by the FDA. The laboratory is regulated under CLIA as qualified to perform high-complexity testing. This test is used for patient testing purposes. It should not be regarded as investigational or for research. Test performed at [facility], [address], [place], [place] ??[address] ? [phone] Jeannette Lopez MD, PhD - College Archivist Blood Venous blood specimen / Unknown Venipuncture / Unknown 12/27/2023 9:02 AM EST 12/27/2023 11:39 AM EST Lauren Wiley MD LAB BLOOD ORDERA BLES [facility] [address] [place] [address] from Last 3 Months Care Teams Acls Specialist Relationship Specialty Start Date End Date Lauren Wiley MD [address] [place] [address] PCP - General Family Medicine 01/28/24
== END 2024-03-23 08:31 | disposition home or self-care (01) ==
PROVIDERS: PCP Internal Medicine; Visit Provider Urology
DX: R33.9 Retention of urine, unspecified (principal); N31.9 Neuromuscular dysfunction of bladder, unspecified; Z87.440 Personal history of urinary (tract) infections; Z93.59 Other cystostomy status; Z98.890 Other specified postprocedural states; N20.0 Calculus of kidney
CPT/HCPCS: 99214; G2211

== ENCOUNTER 2024-04-19 08:31 | Inpatient (IN) | payer OTHER, SELFPAY ==
[2024-04-19] VITALS (30 sets, daily range): BP systolic 73–150; BP diastolic 35–89; PULSE 102–158; RESP 16–25; TEMP 37.7–39.3; O2SAT 94–99; BMI 23.9
--- NOTE | ~2024-04-19 | XR_ITS ---
EXAMINATION: XR CHEST 1 VIEW HISTORY: sob COMPARISON: Comparison is made with the prior examination dated 02/14/2022. FINDINGS: A single AP portable view of the chest performed at 10:35 AM is submitted. There are low lung volumes. There appears to be increased density at the left lung base which may represent subsegmental atelectasis. There is no pleural effusion, pneumothorax, or pulmonary vascular congestion. The heart is normal in size. The aorta is calcified. There is degenerative disc disease of the spine. XR/XR chest 1V IMPRESSION: Low lung volumes. Probable left basilar subsegmental atelectasis. Electronically signed by: Ho Cruz MD 04/19/2024 10:57 AM EST
--- NOTE | ~2024-04-19 | IR_ITS ---
CLINICAL HISTORY: IV antibiotics. Contracted bilateral upper extremities. PROCEDURES: 1. Real-time ultrasound guided access into the right internal jugular vein after documentation of selective vessel patency, and permanent imaging storing in the patient records. 2. Placement of a 5 Fr, 25 cm tunneled, single-lumen power injectable Reed CLINICIAN: Axel Riley PA-C MEDICATIONS: -Lidocaine 1% 10 ml, SQ. -Additional details, please see nursing flowsheet. Complications: None. Estimated blood loss: <5 ml Specimens: None. Contrast: None. Fluoroscopy time: 0.2 min PROCEDURE NOTE: The procedure, risks, benefits, and alternatives were carefully explained to the patient's healthcare market survey representative and informed consent was obtained. The patient was placed supine on the fluoroscopy table. A timeout was performed. The right neck and chest was prepped and draped in usual sterile fashion. Local anesthesia was administered to the right neck access site with lidocaine. Under ultrasound guidance, the right internal jugular vein was accessed with a 5 fr micropuncture set. A permanent ultrasound picture was saved. A peel-away sheath was advanced over the wire. The catheter was measured and cut to length. Next, subcutaneous lidocaine was administered to the chest. Using blunt dissection, a subcutaneous tunnel was created that connects from the upper chest to the venotomy site. The catheter was pulled through the tunnel. The catheter was advanced through the sheath, which was subsequent peeled away. The catheter was tested, flushed, and sutured to the skin with its tip in the cavoatrial junction. The venotomy site was closed with surgical glue. A dry sterile dressing was applied to the chest and the venotomy site. A permanent chest fluoroscopic image was saved demonstrating the catheter tip in the cavoatrial junction. The patient was stable after the procedure was transferred back to the floor. IR/IR cvc insert central tunnel IMPRESSION: Placement of a tunneled, single lumen Reed catheter PLAN: -The catheter may be used immediately. This procedure was performed by Axel Riley PA-C, and supervised by Dr. Toledo Electronically signed by: Ricardo Toledo MD 04/25/2024 03:43 PM [facility]
--- NOTE | ~2024-04-19 | CT_ITS ---
EXAMINATION: CT ABDOMEN AND PELVIS WITHOUT CONTRAST CLINICAL INFORMATION: Nephrostomy. COMPARISON: January 23, 2024. TECHNIQUE: Multidetector volumetric imaging was performed from the superior aspect of the liver through the pubic symphysis. Sagittal and coronal reformatted images were obtained on the technologist's workstation. This CT examination was performed using dose optimization techniques as appropriate, variously including the following: *Automated exposure control *Adjustment of mA and/or kV according to patient size (this includes techniques or standardized protocols for targeted exams where dose is matched to indication/reason for exam; i.e. extremities or head) *Use of iterative reconstruction technique. DLP: 936 mGy centimeter. FINDINGS: Limited evaluation of the intra-abdominal organs and vascular structures due to lack of IV contrast. Limited due to patient's breathing motion artifact. LUNG BASES: Patchy pulmonary groundglass in the lung bases and lingula. LIVER, GALLBLADDER, AND BILIARY TREE: Liver measures 13 cm. No intrahepatic biliary ductal dilatation. No pericholecystic fluid collection or gallbladder wall thickening. No extrahepatic biliary ductal dilatation. PANCREAS: No peripancreatic fluid collections. No main pancreatic ductal dilatation. SPLEEN: 10 cm. ADRENAL GLANDS: No nodular lesions. KIDNEYS AND URETERS: Right kidney: There is a staghorn calculus occupying the renal pelvis into the proximal ureter. Percutaneously placed nephrostomy tube with a pigtail formed in the renal pelvis. There is moderate dilatation of the calyceal system. There are multiple calculi throughout the mid to distal right ureter, the largest measures 67 mm. There is a dilatation of the right ureter. There is a cast bubble in the anterior nondependent pelvicalyceal system at the midportion. There is perinephric edema pattern. No gross fluid collection. Left kidney: There is a 46 mm calculus in the distal left ureter. There is moderate dilatation of the left pelvicalyceal system. There is a 1 mm calculus in the midportion of the pelvicalyceal system. There is perinephric edema pattern without discrete fluid collection. BLADDER: Suprapubic catheter with intraluminal gas in a nondependent portion of the bladder. There is perivesical edema pattern. No gross wall thickening. GASTROINTESTINAL TRACT: There is a gas fluid distended large intestine with abundant stool at the rectosigmoid colon. There is no pericolonic/perirectal edema pattern or gross wall thickening. There is mild mesenteric edema pattern. There is no pneumatosis intestinalis. No ascites. No peritoneal fluid collection. No pneumoperitoneum. Appendix is normal. ABDOMINAL WALL: No gross hernia, umbilical. There is a left greater than right fat-containing inguinal hernias. LYMPH NODES: Nonspecific mildly prominent mesenteric lymph nodes. VASCULAR: Calcified plaques in the thoracic aorta the abdominal aorta at the origin of the main renal arteries mesenteric arteries iliac arteries and the coronary arteries. No aneurysm, abdominal aorta. PELVIC VISCERA: Inadequate evaluation. The Walker catheter balloon is inflated in the prostatic urethra. OSSEOUS STRUCTURES: Multilevel thoracolumbar spondylosis without gross acute fracture or listhesis. There is a short Kocsis likely post surgical changes with skin breakdown and thickening extending into the sacrum. CT/CT abdomen pelvis wo IV con IMPRESSION: Suprapubic catheter with the balloon performed in the prosthetic urethra. Please reposition. Bilateral hydroureteronephrosis, moderate secondary to multiple obstructing calculi distal ureters. Staghorn calculus, right pelvicalyceal system. Percutaneously placed nephrostomy tube in the right renal pelvis. Gas bubble in the pelvicalyceal system right kidney likely posterior instrumentation. Gas organism infection cannot be excluded. Pseudoobstruction rectosigmoid colon probable metabolic/neurogenic etiology. Skin breakdown, sacrum extending to the sacrum. Superimposed infection cannot be excluded. Discussed with the emergency physician Dr. Jose Alberto Schaefer ,on April 19, 2024 at 10:50 AM. Fleischner guidelines were followed. Electronically signed by: Wisam Palmer MD 04/19/2024 10:55 AM [facility]
--- NOTE | 2024-04-19 08:56 | PC.NURSE ---
Candis Schaefer MD notified of likely sepsis
--- NOTE | 2024-04-19 09:14 | ECG_ITS ---
Test Reason : tachy Blood Pressure : */* mmHG Vent. Rate : 137 BPM Atrial Rate : 137 BPM P-R Int : 152 ms QRS Dur : 76 ms QT Int : 266 ms P-R-T Axes : 44 55 -27 degrees QTcB Int : 401 ms Sinus tachycardia Cannot rule out Inferior infarct (cited on or before 23-Jan-2024) Abnormal ECG When compared with ECG of 23-Jan-2024 06:01, Vent. rate has increased by 88 bpm Questionable change in initial forces of Inferior leads T wave inversion more evident in Inferior leads Nonspecific T wave abnormality no longer evident in Anterior leads Referred By: Jose Alberto Schaefer Electronically Signed By: Emmanuel Freitas
--- NOTE | 2024-04-19 09:15 | ED.MALEGU ---
HPI - Male Genitourinary General Chief complaint: Urogenital-Male Stated complaint: blood in catheter Time Seen by Provider: 04/19/24 08:55 Source: EMS Mode of arrival: EMS Limitations: other ( nonverbal) History of Present Illness HPI Narrative: this is a 68 years old male resident of [facility] with history of dementia, nonverbal bed-bound with a right roberto paresis, neurologic bladder and suprapubic catheter was sent here because of bleeding from the pubic catheter. Patient is unable to give any history, the history is taken via custodial paper. He also has a right-sided nephrostomy tube. Onset (ago): hour(s) (2) Duration: constant Severity: moderate Quality: aching Relieving factors: none Exacerbating factors: none Related Data Sexually active: No Home Medications ?Medication ?Instructions ?Recorded ?Confirmed acetaminophen 325 mg tablet 650 mg PO Q4H PRN fever/pain 02/16/21 04/19/24 bisacodyl 10 mg rectal suppository 10 mg LA DAILY PRN If no BM in 8 02/16/21 04/19/24 hours after use of MoM calcium 600 mg (as 1 tab PO BID 02/16/21 04/19/24 carbonate)-vitamin D3 5 mcg (200 unit) tablet magnesium hydroxide 400 mg/5 mL 30 ml PO DAILY PRN No BM in 3 Days 02/16/21 04/19/24 oral suspension (Milk of Magnesia) levetiracetam 100 mg/mL oral 2.5 ml PO BID 02/26/21 04/19/24 solution atorvastatin 80 mg tablet 80 mg PO DAILY 01/26/22 04/19/24 rivaroxaban 20 mg tablet (Xarelto) 20 mg PO DAILY 01/26/22 04/19/24 magnesium citrate 150 ml PO DAILY PRN No BM in 12 hrs 02/15/22 04/19/24 sodium phosphates 19 gram-7 118 ml LA DAILY PRN If no BM in 8 02/15/22 04/19/24 gram/118 mL enema (Fleet Enema) hours after use of Bisacodyl acetaminophen 325 mg tablet 650 mg PO BEDTIME 10/03/22 04/19/24 (Tylenol) acetic acid 0.25 % irrigation 50 ml irrigation [id number] 10/03/22 04/19/24 solution ferrous sulfate 325 mg (65 mg 325 mg PO DAILY 12/22/22 04/19/24 iron) tablet multivitamin 1 tab PO DAILY 01/18/24 04/19/24 psyllium 1 ea PO BEDTIME 01/18/24 04/19/24 sodium hypochlorite 0.125 % 1 appl topical BEDTIME 01/18/24 04/19/24 solution oxycodone 5 mg tablet 5 mg PO DAILY PRN Pain/Wound 04/19/24 04/19/24 Management potassium chloride 20 mEq/15 mL 30 meq PO BID 04/19/24 04/19/24 oral liquid Previous Rx's ?Medication ?Instructions ?Recorded losartan 100 mg tablet 100 mg PO DAILY 90 days #90 tabs 02/07/20 wet wipes #5 multiple units 03/12/20 tamsulosin 0.4 mg capsule 0.4 mg PO BEDTIME 90 days #90 caps 03/22/20 gabapentin 300 mg capsule 300 mg PO BEDTIME 30 days #30 caps 03/27/20 miscellaneous medical supply #1 ea 03/27/20 ascorbic acid (vitamin C) 1,000 mg 1,000 mg PO DAILY 90 days #90 tabs 01/27/22 tablet methenamine hippurate 1 gram tablet 1 g PO daily 90 days #90 tabs 01/27/22 Allergies Allergy/AdvReac Type Severity Reaction Status Date / Time No Known Allergies Allergy Verified 04/19/24 09:24 [No Known Allergies*] Review of Systems Review of Systems: Yes Unobtainable due to mental condition PMFSH Past Medical History Medical History Paralytic ileus of small intestine and colon Calculi, ureter Osteomyelitis of sacrum Decubitus ulcer Acute UTI Seizure disorder Chronic constipation Decubitus ulcer of sacral area Osteomyelitis Septic shock C. 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 Mother No problems noted. Social History Social History Household Members: Unknown / Unable to assess Household Members Other:: SNF Housing: [facility] Are you a primary daytime caregiver to a significant other at home: No Do you presently have visiting nurse or other home services: No Unable to assess alcohol history related to: Unable to respond Alcohol intake: former Comment: patient sleeping Patient Tobacco Use Status: Tobacco use Unknown Second Hand Smoke Exposure: No Advance Directives: Yes Advance Directives on File: Yes Advance Directives Date on File: 02/14/20 service: No Current occupational status: disabled Physical Exam Vital Signs: Vital Signs: Last Vital Signs Temp 102.7 F H 04/19/24 11:46 Pulse 117 H 04/19/24 13:32 Resp 19 04/19/24 13:22 BP 89/53 L 04/19/24 13:32 Pulse Ox 97 04/19/24 13:22 O2 Del Method Room Air 04/19/24 13:22 BMI result Body Mass Index 23.9 Not acute distress he appeared to be tachycardic he has low-grade temperature 100 degrees F Const: General: no acute distress HEENT: Head: Yes normal to inspection General nose exam: Normal external nose present Mouth: Normal oral and palatal mucosa present Throat: Yes posterior oropharynx normal Neck: Neck: Yes normal visual inspection Chest: Chest palpation & inspection: normal inspection of the chest Resp: Effort & Inspection: normal respiratory effort Cardio: Rate: tachycardic GI: Inspection: Yes normal to inspection Percussion: Yes normal to percussion Auscultation: normal bowel sounds Skin: General skin exam: no rashes or lesions noted Neuro: Other: patient is no verbal right roberto paresis is old Course Reevaluation(s) Reevaluation #1: LACTIC ACID NOTED GETTING IV ANTIBIOTIC GETTING IV FLUID, I contacted urologist Dr Huitron Time: 10:29 Reevaluation #2: at this time the patient dropped his blood pressure spike a fever of 102.7, we started norepinephrine discussed with the ICU with the patient will be admitted to the ICU Time: 13:01 Reevaluation #3: seen by Mash Filter Cloth Changer will be admitted to ICU,received IV fluids ,antibiotic Time: 13:31 Medications Administered Generic Name Dose Route Start Last Admin Trade Name Freq PRN Reason Stop Dose Admin Heparin Sodium (Porcine) 5,000 unit 04/19/24 13:00 04/19/24 13:52 Heparin Sodium,Porcine 5,000 Unit/Ml Vial SUBCUT 5,000 unit Q8H KEE Administration Norepinephrine Bitartrate 8 mg in 250 mls @ 0 mls/hr 04/19/24 13:00 04/19/24 13:32 Levophed IV 0.17 mcg/kg/min .Q0M KEE 22.06 mls/hr Titration Protocol Per Protocol Albumin Human 100 mls @ 133.333 mls/hr 04/19/24 13:00 04/19/24 13:44 Kedbumin 25 % IV 04/19/24 14:44 133.33 mls/hr Q1H KEE Administration Vancomycin HCl 1,000 mg/ 535 mls @ 267.5 mls/hr 04/19/24 13:15 04/19/24 13:46 Vancomycin HCl 750 mg/ Sodium IV 04/19/24 15:14 267.5 mls/hr Chloride ONCE ONE Administration Discontinued Medications Generic Name Dose Route Start Last Admin Trade Name Freq PRN Reason Stop Dose Admin Fentanyl 50 mcg 04/19/24 11:29 04/19/24 11:39 Fentanyl Citrate/Pf 100 Mcg/2 Ml Vial IVPUSH 04/19/24 11:30 50 mcg ONCE ONE Administration Protocol Cefepime HCl 2 gm in 50 mls @ 100 mls/hr 04/19/24 08:57 04/19/24 11:14 Maxipime IV 04/19/24 09:26 Infused ONCE ONE Infusion Sodium Chloride 1,000 mls @ 999 mls/hr 04/19/24 09:00 04/19/24 11:14 Ns IVCONT 04/19/24 10:00 Infused .Q1H1M KEE Infusion Sodium Chloride 1,000 mls @ 999 mls/hr 04/19/24 10:00 04/19/24 11:43 Ns IVCONT 04/19/24 11:00 Infused .Q1H1M KEE Infusion Acetaminophen 1,000 mg in 100 mls @ 400 mls/hr 04/19/24 11:37 04/19/24 12:37 Ofirmev IV 04/19/24 11:51 Infused ONCE ONE Infusion Lorazepam 0.5 mg 04/19/24 11:49 04/19/24 12:28 Lorazepam 2 Mg/Ml Vial IVPUSH 04/19/24 11:50 0.5 mg ONCE ONE Administration Medical Decision Making Medical Decision Making [facility] Narrative: patient presented to the emergency room because of hematuria and tachycardia we will check labs administer IV fluid do a CT check the nephrostomy tube Differential Diagnosis Differential Diagnoses: The differential diagnosis associated with the presentation includes UTIs/hematuria/ dehydration Admission/Observation Consideration of admission/observation: Escalation of care including admission/observation considered Consult Healthcare Provider Management of the patient was discussed with: Eye Specialist urologist and pulmunologist Lab Data [facility] Lab Attestation statement: I reviewed the patient's lab results. 04/19/24 09:22 04/19/24 09:22 Labs: Lab Results 04/19/24 04/19/24 04/19/24 Range/Units 09:22 11:13 12:38 WBC 9.3 (4.8-10.8) X10*3/uL RBC 3.91 L (4.60-5.80) X10*6/uL Hgb 12.7 L (14.0-18.0) g/dl Hct 37.8 L (42.0-52.0) % MCV 96.7 (80.0-98.0) fL MCH 32.5 (27.0-33.0) pg MCHC 33.6 (31.0-36.0) g/dl RDW 14.3 (11.0-16.0) % Plt Count 171 D (160-400) X10*3/uL MPV 9.1 L (9.4-12.4) fL Immature Gran % (Auto) 0.3 (0.0-0.4) % Neut % (Auto) 88.1 H (45-73) % Lymph % (Auto) 5.6 L (20-40) % [place] % (Auto) 5.7 (2-11) % Eos % (Auto) 0.1 (0-4) % Baso % (Auto) 0.2 (0-2) % Lymph # (Auto) 0.5 L (1.2-4.9) X10*3/uL [place] # (Auto) 0.5 (0.1-1.2) X10*3/uL Eos # (Auto) 0.0 (0.0-0.4) X10*3/uL Baso # (Auto) 0.0 (0.0-0.2) X10*3/uL Abs Immat Gran (auto) 0.03 (0.00-0.03) X10*3/uL Absolute Neuts (auto) 8.2 (2.0-8.3) x10*3/uL Absolute Nucleated RBC 0.000 (0.0-0.012) X10*3/uL Nucleated RBC % (auto) 0.0 (0.0-0.2) /100WBC Sodium 142 (135-145) mmol/L Potassium 5.0 D (3.3-5.1) mmol/L Chloride 115 H (96-108) mmol/L Carbon Dioxide 19 L (22-29) mmol/L Anion Gap 13 (12-20) BUN 41 H (9-16) mg/dL Creatinine 1.37 (0.5-1.4) mg/dL Estim Creat Clear Calc 47.5 Estimated GFR 52 Random Glucose 167 H (60-115) mg/dL Lactic Acid 3.8 H* (0.5-2.0) mmol/L Lactic Acid F/U @ 2Hr 6.7 H* (0.5-2.0) mmol/L Calcium 9.2 D (8.4-10.2) mg/dL Total Bilirubin 0.6 (0.0-1.0) mg/dL AST 23 (5-37) U/L ALT 17 (0-40) U/L Alkaline Phosphatase 109 (39-117) U/L Troponin I High Sens 13.1 D (<3.5-35.0) ng/L Total Protein 7.7 (6.5-8.0) g/dL Albumin 3.2 L (3.5-5.0) g/dL Urine Color RED Urine Appearance Cloudy Urine pH 7.5 (5.0-9.0) Ur Specific [place] 1.010 (1.005-1.025) Urine Protein 100 (2+) H (Neg-Trace) mg/dL Urine Glucose (UA) See Note (Negative) mg/dL Urine Ketones Negative (Negative) mg/dL Urine Blood Large (3+) H (Negative) Urine Nitrite See Note (Negative) Ur Leukocyte Esterase Large (3+) H (Negative) Urine RBC >20 H (0-2) /HPF Urine WBC >50 H (0-5) /HPF Ur Squamous Epith Cells 0-2 (0-2) /HPF Urine Bacteria 4+ (None Seen) Hyaline Casts 3-5 (0-2) /LPF Independent Interpretation I performed an independent interpretation of an: CT Scan Interpretation: I personally review and interpreted the CT scan of the abdomen pelvis as malposition catheter Radiology Impression Discussion of test interpretation with radiology: I discussed test interpretation with the radiologist and I have reviewed the radiologist's reading. Independent Historian Clinical information obtained from an independent historian. History obtained from or confirmed by: EMS Chronic Conditions Patient?s care impacted by: Other ( history of CVA /history of kidney stones) Procedures Catheter Insertion (Urinary) Date of insertion: 04/19/24 Reason for placing: Yes (malposition suptapubic catheter) Reason for placing indwelling catheter: Other (neurologic bladder suprapubic cathetter malposition) Antiseptic solution prep: Povidone-Iodine Topical anesthesia used: No Catheter type/location: Suprapubic Size (Kiswahili): 16 Results: successfully catheterized-immediate flow and consulted Procedure performed: without complications Comment: Suprapubic catheter changed easily no complication Critical Care Time Critical Care Time Critical Care Time: Yes Total Critical Care Time: 90 Attestation: sepsis,taking care of the pt consulted urologist and rejogger Discharge Plan Discharge Clinical Impression: Acidosis, lactic Hematuria Qualifiers: Hematuria type: gross Qualified Code(s): R31.0 - Gross hematuria Sepsis Qualifiers: Sepsis type: sepsis due to unspecified organism Sepsis acute organ dysfunction status: unspecified Qualified Code(s): A41.9 - Sepsis, unspecified organism Patient Disposition: Admitted As Inpatient
[2024-04-19] MEDS: cefEPime HCl/D5W 2 GM/50 ML PIGGYBACK IV ×2 (09:25→20:36)
[2024-04-19] MEDS: 0.9 % Sodium Chloride 1,000 ML 999 ML IVCONT ×2 (09:26→10:26)
[2024-04-19 09:36] LABS: MANUAL DIFF FLAG NO
[2024-04-19 09:38] LABS: Basophils Percent Auto 0.2 % (0-2); Eosinophils Percent Auto 0.1 % (0-4); Hematocrit 37.8 % (42.0-52.0); Hemoglobin 12.7 g/dl (14.0-18.0); Imm Gran Abs Auto 0.03 X10*3/uL (0.00-0.03); Imm Gran Pct Auto 0.3 % (0.0-0.4); Lymphocytes Absolute Auto 0.5 X10*3/uL (1.2-4.9); Lymphocytes Percent Auto 5.6 % (20-40); Mean Corpuscular HGB Conc 33.6 g/dl (31.0-36.0); Mean Corpuscular Hemoglobin 32.5 pg (27.0-33.0); Mean Corpuscular Volume 96.7 fL (80.0-98.0); Mean Platelet Volume 9.1 fL (9.4-12.4); Monocytes Absolute Auto 0.5 X10*3/uL (0.1-1.2); Monocytes Percent Auto 5.7 % (2-11); Neutrophils Absolute Auto 8.2 x10*3/uL (2.0-8.3); Neutrophils Percent Auto 88.1 % (45-73); Platelet Count 171 X10*3/uL (160-400); Red Blood Count 3.91 X10*6/uL (4.60-5.80); Red Cell Distribution Width 14.3 % (11.0-16.0); White Blood Count 9.3 X10*3/uL (4.8-10.8)
[2024-04-19 09:54] LABS: Alanine Aminotransferase 17 U/L (0-40); Albumin Level 3.2 g/dL (3.5-5.0); Alkaline Phosphatase 109 U/L (39-117); Anion Gap 13 (12-20); Aspartate Amino Transferase 23 U/L (5-37); Bilirubin Total 0.6 mg/dL (0.0-1.0); Blood Urea Nitrogen 41 mg/dL (9-16); Calcium 9.2 mg/dL (8.4-10.2); Carbon Dioxide 19 mmol/L (22-29); Chloride 115 mmol/L (96-108); Creatinine Clr Calc Pharmacy 47.5; Estimated Glomerular Filt Rate 52; Glucose Random 167 mg/dL (60-115); Sodium 142 mmol/L (135-145); Total Protein 7.7 g/dL (6.5-8.0)
[2024-04-19 09:59] LABS: Lactic Acid 3.8 mmol/L (0.5-2.0)
--- OUTSIDE RECORDS SUMMARY | 2024-04-19 10:16 | XMS_ITS | Encounter Summary ---
Author Organization [facility] Address [address] [place] [address] Care Team Providers Care Compliance Advisor Name Role Phone Elder, Lauren Paulino MD Primary Care Provider + Encounter Details Date Type Department Care Team (Late st Contact Info) Description 02/02/2024 Lab Requisition [facility] Lab [address] [facility] [place] [address] Yoav Osorio MD [address] [place] [address] [address] [place] [phone] Essential (primary) hypertension Social History Tobacco Use Types Packs/Day Years Used Date Smoking Tobacco: Never Assessed Sex and Gender Information Value Date Recorded Sex Assigned at Not on file Legal Sex Male 4:31 AM EST Gender Identity Not on file Sexual Orientation [...] LAB CHEMISTRY METHOD 02/02/2024 12:[address] [facility] Potassium 4.0 3.5 - 5.5 mmol/L LAB CHEMISTRY METHOD 02/02/2024 12:[address] [facility] Chloride 113(H) 96 - 110 mmol/L LAB CHEMISTRY METHOD 02/02/2024 12:[address] [facility] CO2 27 21 - 32 mmol/L LAB CHEMISTRY METHOD 02/02/2024 12:58 PM [facility] Anion Gap 5 3 - 11 LAB CHEMISTRY METHOD 02/02/2024 12:58 PM [facility] Glucose 71 70 - 100 mg/dL LAB CHEMISTRY METHOD 02/02/2024 12:58 PM [facility] BUN 31(H) 5 - 25 mg/dL LAB CHEMISTRY METHOD 02/02/2024 12:58 PM [facility] Comment:Results verified by repeat testing Creatinine 0.92 0.70 - 1.30 mg/dL LAB CHEMISTRY METHOD 02/02/2024 12:58 PM [facility] eGFR 90 >=60 mL/min/1. 73m2 LAB CHEMISTRY METHOD 02/02/2024 12:58 PM [facility] Comment:Calculation based on the??Chronic Kidney Disease Epidemiology Collaboration (CKD-EPI) equation refit??without adjustment for race. BUN/Creatinine Ratio 33.7 LAB CHEMISTRY METHOD 02/02/2024 12:58 PM [facility] Calcium 8.6 8.5 - 10.5 mg/dL LAB CHEMISTRY METHOD 02/02/2024 12:58 PM [facility] AST (SGOT) 18 10 - 42 unit/L LAB CHEMISTRY METHOD 02/02/2024 12:58 PM [facility] ALT (SGPT) 18 10 - 60 unit/L LAB CHEMISTRY METHOD 02/02/2024 12:58 PM [facility] Alkaline Phosphatase 94 42 - 121 unit/L LAB CHEMISTRY METHOD 02/02/2024 12:58 PM [facility] Total Protein 5.4(L) 6.0 - 8.0 g/dL LAB CHEMISTRY METHOD 02/02/2024 12:58 PM [facility] Albumin 2.3(L) 3.2 - 5.0 g/dL LAB CHEMISTRY METHOD 02/02/2024 12:58 PM [facility] Total Bilirubin 0.5 0.0 - 1.4 mg/dL LAB CHEMISTRY METHOD 02/02/2024 12:[address] [facility] Blood Venous blood specimen / Unknown Venipuncture / Unknown 02/02/2024 5:08 AM EST 02/02/2024 10:37 AM EST us Yoav Osorio MD LAB BLOOD ORDERABLES Final Resu lt [facility] [address] [place] [address], documented in this encounter Visit Diagnoses Diagnosis Essential (primary) hypertension Unspecified essential hypertension documented in this encounter Additional Health Concerns Infection Onset Date Last Indicated Resolved Time ESBL 03/29/2024 03/29/2024 documented as of this encounter Care Teams Compliance Advisor Relationship Specialty Start Date End Date Lauren Wiley MD [address] [place] [address] PCP - General Family Medicine 01/28/24 documented as of this encounter
--- OUTSIDE RECORDS SUMMARY | 2024-04-19 10:16 | XMS_ITS | Encounter Summary ---
Author Organization [facility] Address [address] [place] [address] Care Team Providers Care Grain Oilseed Or Pasture Farm Worker Name Role Phone Elder, Lauren Paulino MD Primary Care Provider + Encounter Details Date Type Department Care Team (Late st Contact Info) Description 03/03/2024 Lab Requisition [facility] Lab [address] [facility] [place] [address] Yoav Osorio MD [address] [place] [address] [address] [place] [phone] Essential (primary) hypertension Social History Tobacco Use [...] mmol/L LAB CHEMISTRY METHOD 03/03/2024 11:04 AM EST [facility] Potassium 4.0 3.5 - 5.5 mmol/L LAB CHEMISTRY METHOD 03/03/2024 11:04 AM EST [facility] Chloride 118(H) 96 - 110 mmol/L LAB CHEMISTRY METHOD 03/03/2024 11:04 AM EST [facility] CO2 25 21 - 32 mmol/L LAB CHEMISTRY METHOD 03/03/2024 11:04 AM [facility] Anion Gap 2(L) 3 - 11 LAB CHEMISTRY METHOD 03/03/2024 11:04 AM [facility] Glucose 90 70 - 100 mg/dL LAB CHEMISTRY METHOD 03/03/2024 11:04 AM [facility] BUN 36(H) 5 - 25 mg/dL LAB CHEMISTRY METHOD 03/03/2024 11:04 AM [facility] Creatinine 0.99 0.70 - 1.30 mg/dL LAB CHEMISTRY METHOD 03/03/2024 11:04 AM [facility] eGFR 82 >=60 mL/min/1. 73m2 LAB CHEMISTRY METHOD 03/03/2024 11:04 AM [facility] Comment:Calculation based on the??Chronic Kidney Disease Epidemiology Collaboration (CKD-EPI) equation refit??without adjustment for race. BUN/Creatinine Ratio 36.4 LAB CHEMISTRY METHOD 03/03/2024 11:04 AM [facility] Calcium 8.1(L) 8.5 - 10.5 mg/dL LAB CHEMISTRY METHOD 03/03/2024 11:04 AM [facility] Blood Venous blood specimen / Unknown Venipuncture / Unknown 03/03/2024 5:53 AM EST 03/03/2024 9:12 AM EST us Yoav Osorio MD LAB BLOOD ORDERABLES Final Resu lt [facility] [address] [place] [address], documented in this encounter Visit Diagnoses Diagnosis Essential (primary) hypertension Unspecified essential hypertension documented in this encounter Additional Health Concerns Infection Onset Date Last Indicated Resolved Time ESBL 03/29/2024 03/29/2024 documented as of this encounter Care Teams Grain Oilseed Or Pasture Farm Worker Relationship Specialty Start Date End Date Lauren Wiley MD [address] [place] [address] PCP - General Family Medicine 01/28/24 documented as of this encounter
--- OUTSIDE RECORDS SUMMARY | 2024-04-19 10:16 | XMS_ITS | Encounter Summary ---
Author Organization [facility] Address [address] [place] [address] Care Team Providers Care Marketing Liaison Name Role Phone Lauren Wiley MD Primary Care Provider + Encounter Details Date Type Department Care Team (Late st Contact Info) Description 12/27/2023 Lab Requisition [facility] Lab [address] [facility] [place] [address] Social History Tobacco Use Types [...] Diagnoses Not on filedocumented in this encounter Additional Health Concerns Infection Onset Date Last Indicated Resolved Time ESBL 03/29/2024 03/29/2024 documented as of this encounter Care Teams Marketing Liaison Relationship Specialty Start Date End Date Lauren Wiley MD [address], [place] PCP - General Family Medicine 01/28/24 documented as of this encounter
--- OUTSIDE RECORDS SUMMARY | 2024-04-19 10:16 | XMS_ITS | Encounter Summary ---
Author Organization [employer] [facility] Address [address] [place] [address] Care Team Providers Care Diesel Retrofit Designer Name Role Phone Lauren Wiley MD Primary Care Provider + Encounter Details Date Type Department Care Team (Late st Contact Info) Description 02/14/2024 Lab Requisition [facility] Lab [address] [place] [address] Lauren Wiley MD [address] [id number] Pyuria Social History Tobacco Use Types Packs/Day [...] LAB CHEMISTRY METHOD 02/14/2024 11:12 AM EST [facility] Potassium 3.6 3.5 - 5.5 mmol/L LAB CHEMISTRY METHOD 02/14/2024 11:12 AM EST [facility] Chloride 108 96 - 110 mmol/L LAB CHEMISTRY METHOD 02/14/2024 11:12 AM EST [facility] CO2 32 21 - 32 mmol/L LAB CHEMISTRY METHOD 02/14/2024 11:12 AM [facility] Anion Gap 2(L) 3 - 11 LAB CHEMISTRY METHOD 02/14/2024 11:12 AM [facility] Glucose 106(H) 70 - 100 mg/dL LAB CHEMISTRY METHOD 02/14/2024 11:12 AM [facility] BUN 19 5 - 25 mg/dL LAB CHEMISTRY METHOD 02/14/2024 11:12 AM [facility] Creatinine 0.94 0.70 - 1.30 mg/dL LAB CHEMISTRY METHOD 02/14/2024 11:12 AM [facility] eGFR 88 >=60 mL/min/1. 73m2 LAB CHEMISTRY METHOD 02/14/2024 11:12 AM [facility] Comment:Calculation based on the??Chronic Kidney Disease Epidemiology Collaboration (CKD-EPI) equation refit??without adjustment for race. BUN/Creatinine Ratio 20.2 LAB CHEMISTRY METHOD 02/14/2024 11:12 AM [facility] Calcium 8.6 8.5 - 10.5 mg/dL LAB CHEMISTRY METHOD 02/14/2024 11:12 AM [facility] AST (SGOT) 14 10 - 42 unit/L LAB CHEMISTRY METHOD 02/14/2024 11:12 AM [facility] ALT (SGPT) 12 10 - 60 unit/L LAB CHEMISTRY METHOD 02/14/2024 11:12 AM [facility] Alkaline Phosphatase 85 42 - 121 unit/L LAB CHEMISTRY METHOD 02/14/2024 11:12 AM [facility] Total Protein 4.9(L) 6.0 - 8.0 g/dL LAB CHEMISTRY METHOD 02/14/2024 11:12 AM [facility] Albumin 2.1(L) 3.2 - 5.0 g/dL LAB CHEMISTRY METHOD 02/14/2024 11:12 AM [facility] Total Bilirubin 0.7 0.0 - 1.4 mg/dL LAB CHEMISTRY METHOD 02/14/2024 11:12 AM [facility] Blood Venous blood specimen / Unknown Venipuncture / Unknown 02/14/2024 7:10 AM EST 02/14/2024 9:37 AM EST us Lauren Wiley MD LAB BLOOD ORDERABLES Fin al Result [facility] [address] [place] [address], * (ABNORMAL) Complete blood count (02/14/2024 7:10 AM EST) WBC 4.7(L) 4.8 - 10.8 K/mcL LAB HEMETOLOGY METHOD 02/14/2024 10:38 AM [facility] RBC 3.20(L) 4.50 - 5.50 M/mcL LAB HEMETOLOGY METHOD 02/14/2024 10:38 AM [facility] Hemoglobin 10.1(L) 13.5 - 17.5 g/dL LAB HEMETOLOGY METHOD 02/14/2024 10:38 AM [facility] Hematocrit 30.9(L) 42.0 - 54.0 % LAB HEMETOLOGY METHOD 02/14/2024 10:38 AM [facility] MCV 95.4 79.0 - 98.0 FL LAB HEMETOLOGY METHOD 02/14/2024 10:38 AM [facility] MCH 31.2 27.0 - 32.0 pcg LAB HEMETOLOGY METHOD 02/14/2024 10:38 AM [facility] MCHC 32.7 32.0 - 37.0 g/dL LAB HEMETOLOGY METHOD 02/14/2024 10:38 AM [facility] RDW 15.1(H) 11.0 - 15.0 % LAB HEMETOLOGY METHOD 02/14/2024 10:38 AM EST [facility] Platelets 145 130 - 400 K/mcL LAB HEMETOLOGY METHOD 02/14/2024 10:38 AM EST [facility] MPV 9.6 7.0 - 11.0 FL LAB HEMETOLOGY METHOD 02/14/2024 10:38 AM EST [facility] NRBC 0.0 <1.0 % LAB HEMETOLOGY METHOD 02/14/2024 10:38 AM EST [facility] NRBC Absolute 0.00 <0.10 K/mcL LAB HEMETOLOGY METHOD 02/14/2024 10:38 AM [facility] Blood Venous blood specimen / Unknown Venipuncture / Unknown 02/14/2024 7:10 AM EST 02/14/2024 9:37 AM EST us Lauren Wiley MD LAB BLOOD ORDERABLES Fin al Result [facility] [address] [place] [address], documented in this encounter Visit Diagnoses Diagnosis Pyuria Other nonspecific finding on examination of urine documented in this encounter Additional Health Concerns Infection Onset Date Last Indicated Resolved Time ESBL 03/29/2024 03/29/2024 documented as of this encounter Care Teams Diesel Retrofit Designer Relationship Specialty Start Date End Date Lauren Wiley MD [address] [place] [address] PCP - General Family Medicine 01/28/24 documented as of this encounter
--- OUTSIDE RECORDS SUMMARY | 2024-04-19 10:16 | XMS_ITS | Encounter Summary ---
Author Organization [employer] Address [address] [place] [address] Care Team Providers Care Cap Lining Machine Operator Name Role Phone Lauren Wiley MD Primary Care Provider + Encounter Details Date Type Department Care Team (Late st Contact Info) Description 03/15/[address] [facility] - Main Lab [address] [place] [address] Lauren Wiley MD [address] [phone] Diarrhea, unspecified; Enterocolitis due to Clostridium difficile, [...] Antigen Negative Negative 03/15/2024 1:20 PM EST [facility] C difficile Toxins A+B, EIA Negative Negative 03/15/2024 1:20 PM EST [facility] Comment:NEGATIVE FOR TOXIN P RODUCING CLOSTRIDIOIDES DIFFICILE, NO ADDITIONAL TESTING IS NECESSARY. Stool Rectum structure / Unknown Non-blood Collection / Unknown 03/14/2024 10:25 PM EST 03/15/2024 12:16 PM EST us Lauren Wiley MD LAB MICROBIOLOGY - GENER AL ORDERABLES Final Result [facility] ([facility]) [facility] [address] [place] [address], documented in this encounter Visit Diagnoses Diagnosis Diarrhea, unspecified Enterocolitis due to Clostridium difficile, recurrent documented in this encounter Additional Health Concerns Infection Onset Date Last Indicated Resolved Time ESBL 03/29/2024 03/29/2024 documented as of this encounter Care Teams Cap Lining Machine Operator Relationship Specialty Start Date End Date Lauren Wiley MD [address] [place] [address] PCP - General Family Medicine 01/28/24 documented as of this encounter
--- OUTSIDE RECORDS SUMMARY | 2024-04-19 10:16 | XMS_ITS | Encounter Summary ---
Author Organization [employer] Address [address] [place] [address] Care Team Providers Care Lan/Wan Engineer Name Role Phone Lauren Wiley MD Primary Care Provider + Encounter Details Date Type Department Care Team (Late st Contact Info) Description 12/27/2023 Lab Requisition [facility] - Main Lab [address] [place] [address] Lauren Wiley MD [address] [phone] Anemia, unspecified; Essential (primary) hypertension Social History [...] Travel phlebotomy fee (12/27/2023 9:02 AM EST) [facility] TRAVEL PHLEBOTOMY FEE Completed 12/27/2023 12:01 PM EST [facility] Blood Venous blood specimen / Unknown Venipuncture / Unknown 12/27/2023 9:02 AM EST 12/27/2023 11:39 AM EST us Lauren Wiley MD LAB BLOOD ORDERABLES Fin al Result [facility] [address] [place] [address], * Zinc (12/27/2023 9:02 AM EST) Zinc 61 60 - 130 ug/dL 12/30/2023 12:30 PM EST [facility] Comment: Elevated results may be due to sample collected in a non-certified trace element-free tube. This test was developed and the performance characteristics determined by [facility]. It has not been cleared or approved by the FDA. The laboratory is regulated under CLIA as qualified to perform high-complexity testing. This test is used for patient testing purposes. It should not be regarded as investigational or for research. Test performed at [facility], [address] , [place], [place] ??[address] ? [phone] Jeannette Lopez MD, PhD - Business Lawyer Blood Venous blood specimen / Unknown Venipuncture / Unknown 12/27/2023 9:02 AM EST 12/27/2023 11:39 AM EST Lauren Wiley MD LAB BLOOD ORDERABLES Fin al Result Performing Organization Address [facility]/ZIP Co de Phone Number [facility] [address] [place] [address] documented in this encounter Visit Diagnoses Diagnosis Anemia, unspecified Essential (primary) hypertension Unspecified essential hypertension documented in this encounter Additional Health Concerns Infection Onset Date Last Indicated Resolved Time ESBL 03/29/2024 03/29/2024 documented as of this encounter Care Teams Lan/Wan Engineer Relationship Specialty Start Date End Date Lauren Wiley MD [address] [place] [address] PCP - General Family Medicine 01/28/24 documented as of this encounter
--- OUTSIDE RECORDS SUMMARY | 2024-04-19 10:16 | XMS_ITS | Clinical Summary ---
Author Organization [address] [facility] Address [address] [place] [address] Phone Care Team Providers Care Recruiting Consultant Name Role Phone Lauren Wiley MD Primary Care Provider + Encounters Date Type Department Care Team Description 03/29/2024 Lab Requisition [facility] [address] [place] [address] Lauren Wiley MD Hematuria, unspecified 03/29/2024 Lab Requisition [facility] [address] [place] [address] Lauren Wiley MD Hematuria, unspecified; Acute kidney failure, unspecified (CMS/HCC) 03/15/2024 Lab Requisition [facility] [address] [place] [address] Lauren Wiley MD Essential (primary) hypertension; Anemia, unspecified 03/15/2024 Lab Requisition [facility] [address] [place] [address] Lauren Wiley MD Diarrhea, unspecified; Enterocolitis due to Clostridium difficile, recurrent 03/03/2024 Lab Requisition [facility] Main Lab [address] [place] [address] Lauren Wiley MD Essential (primary) hypertension 03/03/2024 Lab Requisition [facility] [address] [place] [address] Yoav Osorio MD Essential (primary) hypertension 02/25/2024 Lab Requisition [facility] [address] [place] [phone] Lauren Wiley MD Essential (primary) hypertension 02/14/2024 Lab Requisition [facility] - Main Lab [address] [place] [phone] Lauren Wiley MD Pyuria 02/02/2024 Lab Requisition [facility] - Main Lab [address] [place] [phone] Yoav Osorio MD Essential (primary) hypertension 01/28/2024 Lab Requisition [facility] - Main Lab [address] [place] [phone] Lauren Wiley MD Elevated white blood cell count, unspecified from Last 3 Months Social History Tobacco Use Types Packs/Day Years Used Date Smoking Tobacco: Never Assessed Sex and Gender Information Value Date Recorded Sex Assigned at Not on file Legal Sex Male 4:31 AM EST Gender Identity Not on file Sexual Orientation Not on file Plan of Treatment Health Maintenance Due Date Last Done Comments DTaP,Tdap,and Td Vaccines (1 - Tdap) 1973 Pneumococcal Vaccine: 50+ Years (1 of 1 - PCV) 2004 Zoster Vaccines (1 of 2) 2004 Abdominal Aortic Aneurysm (AAA) Screen 01/25/2022 Cholesterol Screening (Lipid Panel) 01/25/2022 Colorectal Cancer Screening: Colonoscopy 01/25/2022 Depression Screening 01/25/2022 Falls Risk Assessment 01/25/2022 Hepatitis C Screening 01/25/2022 Medicare Annual Wellness Visit 01/25/2022 Social Influencers of Health Screening 01/25/2022 COVID-19 Vaccine ( season) 2023 Influenza Vaccine (#1) 2023 Hypertension/CHF/CAD Annual BMP Blood Test 03/29/2025 03/29/2024, 03/15/2024, 03/06/2024, Additional history exists RSV Immunization Patients 60+ [...] patient's age to complete this topic Meningococcal B Vacine Aged Out No lo nger eligible based on patient's age to complete this topic RSV Immunization Patients Under 20 months Aged Out No longer eligible based on patient's age to complete this topic Varicella Vaccines Aged Out No longer eligible based on patient's age to complete this topic Procedures Procedure Name Priority Date/Time Associated Diagnosis Comments CBC WITH AUTO DIFFERENTIAL Routine 03/29/2024 7:56 AM EST Hematuria, unspecified Acute kidney failure, unspecified (CMS/HCC) COMPREHENSIVE METABOLIC PANEL Routine 03/29/2024 7:56 AM EST Hematuria, unspecified Acute kidney failure, unspecified (CMS/HCC) CBC AND DIFFERENTIAL Routine 03/29/2024 7:56 AM EST Hematuria, unspecified Acute kidney failure, unspecified (CMS/HCC) URINALYSIS WITH REFLEX MICROSCOPIC Routine 03/29/2024 12:00 AM EST Hematuria, unspecified URINALYSIS WITH REFLEX MICROSCOPIC Routine 03/29/2024 12:00 AM EST Hematuria, unspecified CULTURE URINE Routine 03/29/2024 12:00 AM EST Hematuria, unspecified COMPREHENSIVE METABOLIC PANEL Routine 03/15/2024 5:05 [...] EST Elevated white blood cell count, unspecified from Last 3 Months Results * (ABNORMAL) CBC auto differential (03/29/2024 7:56 AM EST) WBC 3.7(L) 4.8 - 10.8 K/mcL LAB HEMETOLOGY METHOD 03/29/2024 10:[address] [facility] RBC 3.20(L) 4.50 - 5.50 M/mcL LAB HEMETOLOGY METHOD 03/29/2024 10:[address] [facility] Hemoglobin 10.4(L) 13.5 - 17.5 g/dL LAB HEMETOLOGY METHOD 03/29/2024 10:[address] [facility] Hematocrit 32.4(L) 42.0 - 54.0 % LAB HEMETOLOGY METHOD 03/29/2024 10:59 AM [facility] MCV 100.6(H) 79.0 - 98.0 FL LAB HEMETOLOGY METHOD 03/29/2024 10:59 AM [facility] MCH 32.3(H) 27.0 - 32.0 pcg LAB HEMETOLOGY METHOD 03/29/2024 10:59 AM [facility] MCHC 32.1 32.0 - 37.0 g/dL LAB HEMETOLOGY METHOD 03/29/2024 10:59 AM [facility] RDW 14.7 11.0 - 15.0 % LAB HEMETOLOGY METHOD 03/29/2024 10:59 AM [facility] Platelets 162 130 - 400 K/mcL LAB HEMETOLOGY METHOD 03/29/2024 10:59 AM [facility] MPV 9.8 7.0 - 11.0 FL LAB HEMETOLOGY METHOD 03/29/2024 10:59 AM [facility] NRBC 0.0 <1.0 % LAB HEMETOLOGY METHOD 03/29/2024 10:59 AM [facility] NRBC Absolute 0.00 <0.10 K/mcL LAB HEMETOLOGY METHOD 03/29/2024 10:59 AM [facility] Neutrophils Relative 51.8 % LAB HEMETOLOGY METHOD 03/29/2024 10:59 AM [facility] Lymphocytes Relative 31.7 % LAB HEMETOLOGY METHOD 03/29/2024 10:59 AM [facility] Monocytes Relative 11.1 % LAB HEMETOLOGY METHOD 03/29/2024 10:59 AM [facility] Eosinophils Relative 4.1 % LAB HEMETOLOGY METHOD 03/29/2024 10:59 AM [facility] Basophils Relative 0.8 % LAB HEMETOLOGY METHOD 03/29/2024 10:[address] [facility] Immature Granulocytes Relative 0.5 % LAB HEMETOLOGY METHOD 03/29/2024 10:59 AM [facility] Neutrophils Absolute 1.91 1.50 - 7.00 K/mcL LAB HEMETOLOGY METHOD 03/29/2024 10:59 AM [facility] Lymphocytes Absolute 1.17 1.00 - 5.00 K/mcL LAB HEMETOLOGY METHOD 03/29/2024 10:59 AM [facility] Monocytes Absolute 0.41 0.20 - 1.00 K/mcL LAB HEMETOLOGY METHOD 03/29/2024 10:59 AM [facility] Eosinophils Absolute 0.15 0.00 - 0.50 K/mcL LAB HEMETOLOGY METHOD 03/29/2024 10:59 AM [facility] Basophils Absolute 0.03 0.00 - 0.20 K/mcL LAB HEMETOLOGY METHOD 03/29/2024 10:59 AM [facility] Immature Granulocytes Absolute 0.02 0.00 - 0.03 K/mcL LAB HEMETOLOGY METHOD 03/29/2024 10:59 AM [facility] Blood Venous blood specimen / Unknown Venipuncture / Unknown 03/29/2024 7:56 AM EST 03/29/2024 10:14 AM EST us Lauren Wiley MD LAB BLOOD ORDERABLES Fin al Result [facility] [address] [place] [address], * (ABNORMAL) Comprehensive metabolic panel (03/29/2024 7:56 AM EST) Only the most recent of5 resultswithin the time period is included. Sodium 140 133 - 145 mmol/L LAB CHEMISTRY METHOD 03/29/2024 1:43 PM [facility] Potassium 4.9 3.5 - 5.5 mmol/L LAB CHEMISTRY METHOD 03/29/2024 1:43 PM [facility] Comment:Hemolysis present Chloride 109 96 - 110 mmol/L LAB CHEMISTRY METHOD 03/29/2024 1:43 PM [facility] CO2 25 21 - 32 mmol/L LAB CHEMISTRY METHOD 03/29/2024 1:43 PM [facility] Anion Gap 6 3 - 11 LAB CHEMISTRY METHOD 03/29/2024 1:43 PM [facility] Glucose 85 70 - 100 mg/dL LAB CHEMISTRY METHOD 03/29/2024 1:43 PM [facility] BUN 34(H) 5 - 25 mg/dL LAB CHEMISTRY METHOD 03/29/2024 1:43 PM [facility] Creatinine 1.07 0.70 - 1.30 mg/dL LAB CHEMISTRY METHOD 03/29/2024 1:43 PM [facility] eGFR 75 >=60 mL/min/1. 73m2 LAB CHEMISTRY METHOD 03/29/2024 1:43 PM [facility] Comment:Calculation based on the??Chronic Kidney Disease Epidemiology Collaboration (CKD-EPI) equation refit??without adjustment for race. BUN/Creatinine Ratio 31.8 LAB CHEMISTRY METHOD 03/29/2024 1:43 PM [facility] Calcium 9.1 8.5 - 10.5 mg/dL LAB CHEMISTRY METHOD 03/29/2024 1:43 PM [facility] AST (SGOT) 25 10 - 42 unit/L LAB CHEMISTRY METHOD 03/29/2024 1:43 PM [facility] Comment:Hemolysis present ALT (SGPT) 28 10 - 60 unit/L LAB CHEMISTRY METHOD 03/29/2024 1:43 PM [facility] Alkaline Phosphatase 91 42 - 121 unit/L LAB CHEMISTRY METHOD 03/29/2024 1:43 PM [facility] Total Protein 6.1 6.0 - 8.0 g/dL LAB CHEMISTRY METHOD 03/29/2024 1:43 PM [facility] Albumin 2.4(L) 3.2 - 5.0 g/dL LAB CHEMISTRY METHOD 03/29/2024 1:43 PM [facility] Total Bilirubin 0.4 0.0 - 1.4 mg/dL LAB CHEMISTRY METHOD 03/29/2024 1:43 PM [facility] Blood Venous blood specimen / Unknown Venipuncture / Unknown 03/29/2024 7:56 AM EST 03/29/2024 10:14 AM EST Lauren Wiley MD LAB BLOOD ORDERABLES Fin al Result [facility] [address] [place] [address], * (ABNORMAL) Urinalysis with reflex microscopic (03/29/2024 12:00 AM EST) Specific [place] Urine 1.013 1.003 - 1.030 LAB URINALYSIS - AUTOMATED METHOD 03/29/2024 11:21 AM [facility] pH, Urine >=9.0(A) 5.0 - 8.0 pH LAB URINALYSIS - AUTOMATED METHOD 03/29/2024 11:21 AM [facility] Leukocytes, Urine Large(A) Negative LAB URINALYSIS - AUTOMATED METHOD 03/29/2024 11:21 AM [facility] Nitrite, Urine Positive(A) Negative LAB URINALYSIS - AUTOMATED METHOD 03/29/2024 11:21 AM [facility] Protein, Urine 100(A) <=Trace mg/dL LAB URINALYSIS - AUTOMATED METHOD 03/29/2024 11:21 AM [facility] Glucose, Urine Negative Negative mg/dL LAB URINALYSIS - AUTOMATED METHOD 03/29/2024 11:21 AM [facility] Ketones, Urine Negative Negative mg/dL LAB URINALYSIS - AUTOMATED METHOD 03/29/2024 11:21 AM [facility] Urobilinogen , Urine 0.2 0.2 - 1.0 mg/dL LAB URINALYSIS - AUTOMATED METHOD 03/29/2024 11:21 AM [facility] Bilirubin, Urine Negative Negative LAB URINALYSIS - AUTOMATED METHOD 03/29/2024 11:21 AM [facility] Blood, Urine Large(A) Negative LAB URINALYSIS - AUTOMATED METHOD 03/29/2024 11:21 AM [facility] RBC, Urine 264(H) 0 - 4 /HPF LAB URINALYSIS - AUTOMATED METHOD 03/29/2024 11:21 AM [facility] WBC, Urine 40(H) 0 - 4 /HPF LAB URINALYSIS - AUTOMATED METHOD 03/29/2024 11:21 AM [facility] Squamous Epithelial, Urine 16 0 - 60 /LPF LAB URINALYSIS - AUTOMATED METHOD 03/29/2024 11:21 AM [facility] Bacteria, Urine Moderate(A) Negative /HPF LAB URINALYSIS - AUTOMATED METHOD 03/29/2024 11:21 AM [facility] Hyaline Casts, Urine 5.2(H) 0 - 3 /LPF LAB URINALYSIS - AUTOMATED METHOD 03/29/2024 11:21 AM [facility] Urine Urine specimen from urethra / Unknown 03/29/2024 03/29/2024 10:16 AM EST us Lauren Wiley MD LAB URINE ORDERABLES Fin al Result [facility] [address] [place] [address], * (ABNORMAL) Culture urine (03/29/2024 12:00 AM EST) Culture, Urine >100,000 CFU/mL Providencia stuartii(A) AL 04/02/2024 8:[address] [facility] Comment: This is an edited result. Previous organism was Gram negative bacilli on 03/30/2024 at 1021 EST. Culture, Urine 50,000-100,000 CFU/mL Escherichia coli ESBL(A) AL 04/02/2024 8:[address] [facility] Comment: THIS ORGANISM IS POSITIVE FOR EXTENDED SPECTRUM BETA-LACTAMASE (ESBL). ??EXTENDED SPECTRUM BETA-LACTAMASE ??PRODUCING ORGANISMS DEMONSTRATE DECREASED ACTIVITY WITH PENICILLILNS, CEPHALOSPORINS AND AZTREONAM. The organism value for this result has been updated. These results have been appended to the previously preliminary verified report. This is an edited result. Previous organism was Gram negative bacilli on 03/31/2024 at 1233 EST. Edited result: Previously reported as Escherichia coli on 04/01/2024 at 0940 EST. Urine Urine specimen from urethra / Unknown 03/29/2024 03/29/2024 10:[address] [facility] - 04/02/2024 8:09 AM EST Additional colony types present in insignificant amounts. Organism Antibiotic Method Susceptibility Providencia stuartii Ampicillin/Sulbactam AL <=2 ug/ml: Susceptible Providencia stuartii Piperacillin/Tazobactam AL <=4 ug/ml: Susceptible Providencia stuartii Cefoxitin AL <=4 ug/ml: Susceptible Providencia stuartii Ceftazidime AL <=0.5 ug/ml: Susceptible Providencia stuartii Ceftriaxone AL <=0.25 ug/ml: Susceptible Providencia stuartii Cefepime AL <=0.12 ug/ml: Susceptible Providencia stuartii Ciprofloxacin AL 0.25 ug/ml: Susceptible Providencia stuartii Levofloxacin AL 0.5 ug/ml: Susceptible Providencia stuartii Nitrofurantoin AL 128 ug/ml: Resistant Providencia stuartii Trimethoprim/Sulfam ethoxazol e AL <=20 ug/ml: Susceptible Escherichia coli ESBL Amoxicillin/Clavulanate AL 8 ug/ml: Susceptible Escherichia coli ESBL Ampicillin/Sulbactam AL >=32 ug/ml: Resistant Escherichia coli ESBL Piperacillin/Tazobactam AL <=4 ug/ml: Susceptible Escherichia coli ESBL Cefazolin (Urine) AL >=32 ug/ml: Resistant Escherichia coli ESBL Cefoxitin AL <=4 ug/ml: Susceptible Escherichia coli ESBL Ceftazidime AL >=32 ug/ml: Resistant Escherichia coli ESBL Ceftriaxone AL >=64 ug/ml: Resistant Escherichia coli ESBL Cefepime AL >=32 ug/ml: Resistant Escherichia coli ESBL Meropenem AL <=0.25 ug/ml: Susceptible Escherichia coli ESBL Amikacin AL 2 ug/ml: Susceptible Escherichia coli ESBL Gentamicin AL <=1 ug/ml: Susceptible Escherichia coli ESBL Ciprofloxacin AL >=4 ug/ml: Resistant Escherichia coli ESBL Levofloxacin AL >=8 ug/ml: Resistant Escherichia coli ESBL Nitrofurantoin AL <=16 ug/ml: Susceptible Escherichia coli ESBL Trimethoprim/Sulfa methoxazol e AL >=320 ug/ml: Resistant us Lauren Wiley MD LAB MICROBIOLOGY - GENER AL ORDERABLES Final Result [facility] [address] [place] [address], * (ABNORMAL) Complete blood count (03/15/2024 5:05 AM EST) Only the most recent of4 resultswithin the time period is included. WBC 4.1(L) 4.8 - 10.8 K/mcL LAB HEMETOLOGY METHOD 03/15/2024 12:[address] [facility] RBC 3.10(L) 4.50 - 5.50 M/mcL LAB HEMETOLOGY METHOD 03/15/2024 12:[address] [facility] Hemoglobin 10.1(L) 13.5 - 17.5 g/dL LAB HEMETOLOGY METHOD 03/15/2024 12:[address] [facility] Hematocrit 31.0(L) 42.0 - 54.0 % LAB HEMETOLOGY METHOD 03/15/2024 12:22 PM [facility] MCV 99.4(H) 79.0 - 98.0 FL LAB HEMETOLOGY METHOD 03/15/2024 12:22 PM [facility] MCH 32.4(H) 27.0 - 32.0 pcg LAB HEMETOLOGY METHOD 03/15/2024 12:22 PM [facility] MCHC 32.6 32.0 - 37.0 g/dL LAB HEMETOLOGY METHOD 03/15/2024 12:22 PM [facility] RDW 15.5(H) 11.0 - 15.0 % LAB HEMETOLOGY METHOD 03/15/2024 12:22 PM [facility] Platelets 137 130 - 400 K/mcL LAB HEMETOLOGY METHOD 03/15/2024 12:22 PM [facility] MPV 10.7 7.0 - 11.0 FL LAB HEMETOLOGY METHOD 03/15/2024 12:22 PM [facility] NRBC 0.0 <1.0 % LAB HEMETOLOGY METHOD 03/15/2024 12:22 PM [facility] NRBC Absolute 0.00 <0.10 K/mcL LAB HEMETOLOGY METHOD 03/15/2024 12:22 PM [facility] Blood Venous blood specimen / Unknown Venipuncture / Unknown 03/15/2024 5:05 AM EST 03/15/2024 11:34 AM EST us Lauren Wiley MD LAB BLOOD ORDERABLES Fin al Result [facility] [address] [place] [address], * Clostridium difficile toxin (03/14/2024 10:25 PM EST) Clostridium difficile GDH Antigen Negative Negative 03/15/2024 1:[address] [facility] C difficile Toxins A+B, EIA Negative Negative 03/15/2024 1:[address] [facility] Comment:NEGATIVE FOR TOXIN P RODUCING CLOSTRIDIOIDES DIFFICILE, NO ADDITIONAL TESTING IS NECESSARY. Stool Rectum structure / Unknown Non-blood Collection / Unknown 03/14/2024 10:25 PM EST 03/15/2024 12:16 PM EST us Lauren Wiley MD LAB MICROBIOLOGY - GENER AL ORDERABLES Final Result [facility] [address] [place] [address], [place] [phone] * (ABNORMAL) Basic metabolic panel (03/06/2024 8:07 AM EST) Only the most recent of3 resultswithin the time period is included. Pathologist [facility] Sodium 143 133 - 145 mmol/L LAB CHEMISTRY METHOD 03/06/2024 10:49 AM [facility] Potassium 4.4 3.5 - 5.5 mmol/L LAB CHEMISTRY METHOD 03/06/2024 10:49 AM [facility] Chloride 112(H) 96 - 110 mmol/L LAB CHEMISTRY METHOD 03/06/2024 10:49 AM [facility] CO2 28 21 - 32 mmol/L LAB CHEMISTRY METHOD 03/06/2024 10:49 AM [facility] Anion Gap 3 3 - 11 LAB CHEMISTRY METHOD 03/06/2024 10:49 AM [facility] Glucose 98 70 - 100 mg/dL LAB CHEMISTRY METHOD 03/06/2024 10:49 AM [facility] BUN 28(H) 5 - 25 mg/dL LAB CHEMISTRY METHOD 03/06/2024 10:49 AM [facility] Creatinine 0.95 0.70 - 1.30 mg/dL LAB CHEMISTRY METHOD 03/06/2024 10:[address] [facility] eGFR 87 >=60 mL/min/1. 73m2 LAB CHEMISTRY METHOD 03/06/2024 10:[address] [facility] Comment:Calculation based on the??Chronic Kidney Disease Epidemiology Collaboration (CKD-EPI) equation refit??without adjustment for race. BUN/Creatinine Ratio 29.5 LAB CHEMISTRY METHOD 03/06/2024 10:[address] [facility] Calcium 8.5 8.5 - 10.5 mg/dL LAB CHEMISTRY METHOD 03/06/2024 10:49 AM [facility] Blood Venous blood specimen / Unknown Venipuncture / Unknown 03/06/2024 8:07 AM EST 03/06/2024 9:07 AM EST Lauren Wiley MD LAB BLOOD ORDERABLES Fin al Result [facility] [address] [place] [address], from Last 3 Months Additional Health Concerns Infection Onset Date Last Indicated ESBL 03/29/2024 03/29/2024 Insurance [facility] Member Subscriber Plan / Payer (Ef fective 2020-Present) Name:Wyatt Castillo Relation to Subscriber:Self Name:Wyatt Castillo Payer ID:[id number] Group ID:[id number] Type:Not on file Address: [facility] [address] [id number] Care Teams Recruiting Consultant Relationship Specialty Start Date End Date Lauren Wiley MD [address] [place] [address] PCP - General Family Medicine 01/28/24
--- OUTSIDE RECORDS SUMMARY | 2024-04-19 10:16 | XMS_ITS | Encounter Summary ---
Author Organization [employer] Address [address] [place] [address] Care Team Providers Care Equipment Installer Name Role Phone Lauren Wiley MD Primary Care Provider + Encounter Details Date Type Department Care Team (Late st Contact Info) Description 01/28/2024 Lab Requisition [facility] Lab [address] [place] [address] Lauren Wiley MD [address] [phone] Elevated white blood cell count, unspecified Social [...] LAB CHEMISTRY METHOD 01/28/2024 11:23 AM EST [facility] Potassium 3.9 3.5 - 5.5 mmol/L LAB CHEMISTRY METHOD 01/28/2024 11:23 AM EST [facility] Chloride 114(H) 96 - 110 mmol/L LAB CHEMISTRY METHOD 01/28/2024 11:23 AM [facility] CO2 25 21 - 32 mmol/L LAB CHEMISTRY METHOD 01/28/2024 11:23 AM [facility] Anion Gap 5 3 - 11 LAB CHEMISTRY METHOD 01/28/2024 11:23 AM [facility] Glucose 94 70 - 100 mg/dL LAB CHEMISTRY METHOD 01/28/2024 11:23 AM [facility] BUN 17 5 - 25 mg/dL LAB CHEMISTRY METHOD 01/28/2024 11:23 AM [facility] Creatinine 0.83 0.70 - 1.30 mg/dL LAB CHEMISTRY METHOD 01/28/2024 11:23 AM [facility] eGFR 95 >=60 mL/min/1. 73m2 LAB CHEMISTRY METHOD 01/28/2024 11:23 AM [facility] Comment:Calculation based on the??Chronic Kidney Disease Epidemiology Collaboration (CKD-EPI) equation refit??without adjustment for race. BUN/Creatinine Ratio 20.5 LAB CHEMISTRY METHOD 01/28/2024 11:23 AM [facility] Calcium 8.3(L) 8.5 - 10.5 mg/dL LAB CHEMISTRY METHOD 01/28/2024 11:23 AM [facility] Blood Venous blood specimen / Unknown Venipuncture / Unknown 01/28/2024 5:27 AM EST 01/28/2024 10:37 AM EST us Lauren Wiley MD LAB BLOOD ORDERABLES Fin al Result [facility] [address] [place] [address], * (ABNORMAL) Complete blood count (01/28/2024 5:27 AM EST) WBC 4.2(L) 4.8 - 10.8 K/mcL LAB HEMETOLOGY METHOD 01/28/2024 11:22 AM [facility] RBC 3.40(L) 4.50 - 5.50 M/mcL LAB HEMETOLOGY METHOD 01/28/2024 11:22 AM [facility] Hemoglobin 10.5(L) 13.5 - 17.5 g/dL LAB HEMETOLOGY METHOD 01/28/2024 11:22 AM [facility] Hematocrit 32.3(L) 42.0 - 54.0 % LAB HEMETOLOGY METHOD 01/28/2024 11:22 AM [facility] MCV 96.4 79.0 - 98.0 FL LAB HEMETOLOGY METHOD 01/28/2024 11:22 AM [facility] MCH 31.3 27.0 - 32.0 pcg LAB HEMETOLOGY METHOD 01/28/2024 11:22 AM [facility] MCHC 32.5 32.0 - 37.0 g/dL LAB HEMETOLOGY METHOD 01/28/2024 11:22 AM [facility] RDW 14.4 11.0 - 15.0 % LAB HEMETOLOGY METHOD 01/28/2024 11:22 AM [facility] Platelets 132 130 - 400 K/mcL LAB HEMETOLOGY METHOD 01/28/2024 11:22 AM [facility] MPV 9.7 7.0 - 11.0 FL LAB HEMETOLOGY METHOD 01/28/2024 11:22 AM [facility] NRBC 0.0 <1.0 % LAB HEMETOLOGY METHOD 01/28/2024 11:22 AM [facility] NRBC Absolute 0.00 <0.10 K/mcL LAB HEMETOLOGY METHOD 01/28/2024 11:22 AM [facility] Blood Venous blood specimen / Unknown Venipuncture / Unknown 01/28/2024 5:27 AM EST 01/28/2024 10:37 AM EST us Lauren Wiley MD LAB BLOOD ORDERABLES Fin al Result [facility] [address] [place] [address], documented in this encounter Visit Diagnoses Diagnosis Elevated white blood cell count, unspecified documented in this encounter Additional Health Concerns Infection Onset Date Last Indicated Resolved Time ESBL 03/29/2024 03/29/2024 documented as of this encounter Care Teams Equipment Installer Relationship Specialty Start Date End Date Lauren Wiley MD [address] [place] [address] PCP - General Family Medicine 01/28/24 documented as of this encounter
--- OUTSIDE RECORDS SUMMARY | 2024-04-19 10:16 | XMS_ITS | Encounter Summary ---
Author Organization [employer] [facility] Address [address] [place] [address] Care Team Providers Care Retail Leasing Agent Name Role Phone Lauren Wiley MD Primary Care Provider + Encounter Details Date Type Department Care Team (Late st Contact Info) Description 03/03/2024 Lab Requisition [facility] Lab [address] [place] [address] Lauren Wiley MD [address] [phone] Essential (primary) hypertension Social History Tobacco Use [...] LAB CHEMISTRY METHOD 03/06/2024 10:49 AM EST [facility] Potassium 4.4 3.5 - 5.5 mmol/L LAB CHEMISTRY METHOD 03/06/2024 10:49 AM EST [facility] Chloride 112(H) 96 - 110 mmol/L LAB CHEMISTRY METHOD 03/06/2024 10:49 AM EST [facility] CO2 28 21 - 32 mmol/L LAB CHEMISTRY METHOD 03/06/2024 10:[address] [facility] Anion Gap 3 3 - 11 LAB CHEMISTRY METHOD 03/06/2024 10:[address] [facility] Glucose 98 70 - 100 mg/dL LAB CHEMISTRY METHOD 03/06/2024 10:[address] [facility] BUN 28(H) 5 - 25 mg/dL LAB CHEMISTRY METHOD 03/06/2024 10:[address] [facility] Creatinine 0.95 0.70 - 1.30 mg/dL LAB CHEMISTRY METHOD 03/06/2024 10:[address] [facility] eGFR 87 >=60 mL/min/1. 73m2 LAB CHEMISTRY METHOD 03/06/2024 10:[address] [facility] Comment:Calculation based on the??Chronic Kidney Disease Epidemiology Collaboration (CKD-EPI) equation refit??without adjustment for race. BUN/Creatinine Ratio 29.5 LAB CHEMISTRY METHOD 03/06/2024 10:[address] [facility] Calcium 8.5 8.5 - 10.5 mg/dL LAB CHEMISTRY METHOD 03/06/2024 10:[address] [facility] Blood Venous blood specimen / Unknown Venipuncture / Unknown 03/06/2024 8:07 AM EST 03/06/2024 9:07 AM EST Lauren Wiley MD LAB BLOOD ORDERABLES Fin al Result [facility] [address] [place] [address], documented in this encounter Visit Diagnoses Diagnosis Essential (primary) hypertension Unspecified essential hypertension documented in this encounter Additional Health Concerns Infection Onset Date Last Indicated Resolved Time ESBL 03/29/2024 03/29/2024 documented as of this encounter Care Teams Retail Leasing Agent Relationship Specialty Start Date End Date Lauren Wiley MD [address] [place] [address] PCP - General Family Medicine 01/28/24 documented as of this encounter
--- OUTSIDE RECORDS SUMMARY | 2024-04-19 10:16 | XMS_ITS | Encounter Summary ---
Author Organization [employer] Address [address] [place] [address] Care Team Providers Care Figurine Maker Name Role Phone Lauren Wiley MD Primary Care Provider + Encounter Details Date Type Department Care Team (Late st Contact Info) Description 03/29/[address] [facility] Lab [address] [place] [address] Lauren Wiley MD [address] [address] Hematuria, unspecified; Acute kidney failure, unspecified (CMS/HCC) Social History Tobacco Use Types Packs/Day Years [...] Hematuria, unspecified Acute kidney failure, unspecified (CMS/HCC) documented in this encounter Results * (ABNORMAL) CBC auto differential (03/29/2024 7:56 AM EST) WBC 3.7(L) 4.8 - 10.8 K/mcL LAB HEMETOLOGY METHOD 03/29/2024 10:59 AM [facility] RBC 3.20(L) 4.50 - 5.50 M/mcL LAB HEMETOLOGY METHOD 03/29/2024 10:59 AM [facility] Hemoglobin 10.4(L) 13.5 - 17.5 g/dL LAB HEMETOLOGY METHOD 03/29/2024 10:59 AM [facility] Hematocrit 32.4(L) 42.0 - 54.0 % LAB HEMETOLOGY METHOD 03/29/2024 10:59 AM [facility] LAB MCV 100.6(H) 79.0 - 98.0 FL LAB HEMETOLOGY METHOD 03/29/2024 10:59 AM [facility] LAB MCH 32.3(H) 27.0 - 32.0 pcg LAB HEMETOLOGY METHOD 03/29/2024 10:59 AM [facility] LAB MCHC 32.1 32.0 - 37.0 g/dL LAB HEMETOLOGY METHOD 03/29/2024 10:59 AM [facility] LAB RDW 14.7 11.0 - 15.0 % LAB HEMETOLOGY METHOD 03/29/2024 10:59 AM [facility] LAB Platelets 162 130 - 400 K/mcL LAB HEMETOLOGY METHOD 03/29/2024 10:59 AM [facility] LAB MPV 9.8 7.0 - 11.0 FL LAB HEMETOLOGY METHOD 03/29/2024 10:59 AM [facility] LAB NRBC 0.0 <1.0 % LAB HEMETOLOGY METHOD 03/29/2024 10:59 AM [facility] LAB NRBC Absolute 0.00 <0.10 K/mcL LAB HEMETOLOGY METHOD 03/29/2024 10:59 AM [facility] Neutrophils Relative 51.8 % LAB HEMETOLOGY METHOD 03/29/2024 10:59 AM [facility] Lymphocytes Relative 31.7 % LAB HEMETOLOGY METHOD 03/29/2024 10:59 AM [facility] Monocytes Relative 11.1 % LAB HEMETOLOGY METHOD 03/29/2024 10:59 AM [facility] Eosinophils Relative 4.1 % LAB HEMETOLOGY METHOD 03/29/2024 10:59 AM [facility] Basophils Relative 0.8 % LAB HEMETOLOGY METHOD 03/29/2024 10:59 AM [facility] Immature Granulocytes Relative 0.5 % LAB HEMETOLOGY METHOD 03/29/2024 10:59 AM [facility] Neutrophils Absolute 1.91 1.50 - 7.00 K/mcL LAB HEMETOLOGY METHOD 03/29/2024 10:59 AM [facility] Lymphocytes Absolute 1.17 1.00 - 5.00 K/mcL LAB HEMETOLOGY METHOD 03/29/2024 10:59 AM [facility] Monocytes Absolute 0.41 0.20 - 1.00 K/mcL LAB HEMETOLOGY METHOD 03/29/2024 10:59 AM [facility] Eosinophils Absolute 0.15 0.00 - 0.50 K/mcL LAB HEMETOLOGY METHOD 03/29/2024 10:59 AM [facility] Basophils Absolute 0.03 0.00 - 0.20 K/mcL LAB HEMETOLOGY METHOD 03/29/2024 10:59 AM [facility] Immature Granulocytes Absolute 0.02 0.00 - 0.03 K/mcL LAB HEMETOLOGY METHOD 03/29/2024 10:59 AM [facility] Blood Venous blood specimen / Unknown Venipuncture / Unknown 03/29/2024 7:56 AM EST 03/29/2024 10:14 AM EST Lauren Wiley MD LAB BLOOD ORDERABLES Fin al Result [facility] [address] [place] [address], * (ABNORMAL) Comprehensive metabolic panel (03/29/2024 7:56 AM EST) Sodium 140 133 - 145 mmol/L LAB CHEMISTRY METHOD 03/29/2024 1:43 PM [facility] Potassium 4.9 3.5 - 5.5 mmol/L LAB CHEMISTRY METHOD 03/29/2024 1:43 PM [facility] LAB Comment:Hemolysis present Chloride 109 96 - 110 mmol/L LAB CHEMISTRY METHOD 03/29/2024 1:43 PM [facility] CO2 25 21 - 32 mmol/L LAB CHEMISTRY METHOD 03/29/2024 1:43 PM [facility] Anion Gap 6 3 - 11 LAB CHEMISTRY METHOD 03/29/2024 1:43 PM [facility] Glucose 85 70 - 100 mg/dL LAB CHEMISTRY METHOD 03/29/2024 1:43 PM [facility] BUN 34(H) 5 - 25 mg/dL LAB CHEMISTRY METHOD 03/29/2024 1:43 PM [facility] Creatinine 1.07 0.70 - 1.30 mg/dL LAB CHEMISTRY METHOD 03/29/2024 1:43 PM [facility] LAB eGFR 75 >=60 mL/min/1. 73m2 LAB CHEMISTRY METHOD 03/29/2024 1:43 PM [facility] Comment:Calculation based on the??Chronic Kidney Disease Epidemiology Collaboration (CKD-EPI) equation refit??without adjustment for race. BUN/Creatinine Ratio 31.8 LAB CHEMISTRY METHOD 03/29/2024 1:43 PM [facility] Calcium 9.1 8.5 - 10.5 mg/dL LAB CHEMISTRY METHOD 03/29/2024 1:43 PM [facility] AST (SGOT) 25 10 - 42 unit/L LAB CHEMISTRY METHOD 03/29/2024 1:43 PM [facility] LAB Comment:Hemolysis present ALT (SGPT) 28 10 - 60 unit/L LAB CHEMISTRY METHOD 03/29/2024 1:43 PM [facility] Alkaline Phosphatase 91 42 - 121 unit/L LAB CHEMISTRY METHOD 03/29/2024 1:43 PM [facility] Total Protein 6.1 6.0 - 8.0 g/dL LAB CHEMISTRY METHOD 03/29/2024 1:43 PM [facility] Albumin 2.4(L) 3.2 - 5.0 g/dL LAB CHEMISTRY METHOD 03/29/2024 1:43 PM [facility] Total Bilirubin 0.4 0.0 - 1.4 mg/dL LAB CHEMISTRY METHOD 03/29/2024 1:43 PM [facility] Blood Venous blood specimen / Unknown Venipuncture / Unknown 03/29/2024 7:56 AM EST 03/29/2024 10:14 AM EST Lauren Wiley MD LAB BLOOD ORDERABLES Fin al Result [facility] [address] [place] [address], documented in this encounter Visit Diagnoses Diagnosis Hematuria, unspecified Acute kidney failure, unspecified (CMS/HCC) Acute kidney failure, unspecified documented in this encounter Additional Health Concerns Infection Onset Date Last Indicated Resolved Time ESBL 03/29/2024 03/29/2024 documented as of this encounter Care Teams Figurine Maker Relationship Specialty Start Date End Date Lauren Wiley MD [address] [place] [address] PCP - General Family Medicine 01/28/24 documented as of this encounter
--- OUTSIDE RECORDS SUMMARY | 2024-04-19 10:16 | XMS_ITS | Encounter Summary ---
Author Organization [employer] Address [address] [place] [address] Care Team Providers Care Quality Assurance Calibrator Name Role Phone Lauren Wiley MD Primary Care Provider + Encounter Details Date Type Department Care Team (Late st Contact Info) Description 02/25/2024 Lab Requisition [facility] Lab [address] [place] [address] Lauren Wiley MD [address] [phone] Essential (primary) hypertension Social History Tobacco Use [...] LAB CHEMISTRY METHOD 02/25/2024 12:38 PM EST [facility] Potassium 4.4 3.5 - 5.5 mmol/L LAB CHEMISTRY METHOD 02/25/2024 12:38 PM EST [facility] Chloride 121(H) 96 - 110 mmol/L LAB CHEMISTRY METHOD 02/25/2024 12:[address] [facility] CO2 25 21 - 32 mmol/L LAB CHEMISTRY METHOD 02/25/2024 12:[address] [facility] Anion Gap 4 3 - 11 LAB CHEMISTRY METHOD 02/25/2024 12:[address] [facility] Glucose 106(H) 70 - 100 mg/dL LAB CHEMISTRY METHOD 02/25/2024 12:[address] [facility] BUN 38(H) 5 - 25 mg/dL LAB CHEMISTRY METHOD 02/25/2024 12:[address] [facility] Creatinine 1.01 0.70 - 1.30 mg/dL LAB CHEMISTRY METHOD 02/25/2024 12:[address] [facility] eGFR 81 >=60 mL/min/1. 73m2 LAB CHEMISTRY METHOD 02/25/2024 12:[address] [facility] Comment:Calculation based on the??Chronic Kidney Disease Epidemiology Collaboration (CKD-EPI) equation refit??without adjustment for race. BUN/Creatinine Ratio 37.6 LAB CHEMISTRY METHOD 02/25/2024 12:[address] [facility] Calcium 8.6 8.5 - 10.5 mg/dL LAB CHEMISTRY METHOD 02/25/2024 12:[address] [facility] AST (SGOT) 18 10 - 42 unit/L LAB CHEMISTRY METHOD 02/25/2024 12:[address] [facility] ALT (SGPT) 22 10 - 60 unit/L LAB CHEMISTRY METHOD 02/25/2024 12:[address] [facility] Alkaline Phosphatase 80 42 - 121 unit/L LAB CHEMISTRY METHOD 02/25/2024 12:[address] [facility] Total Protein 5.6(L) 6.0 - 8.0 g/dL LAB CHEMISTRY METHOD 02/25/2024 12:[address] [facility] Albumin 2.3(L) 3.2 - 5.0 g/dL LAB CHEMISTRY METHOD 02/25/2024 12:[address] [facility] Total Bilirubin 0.4 0.0 - 1.4 mg/dL LAB CHEMISTRY METHOD 02/25/2024 12:[address] [facility] Blood Venous blood specimen / Unknown Venipuncture / Unknown 02/25/2024 5:00 AM EST 02/25/2024 10:40 AM EST us Lauren Wiley MD LAB BLOOD ORDERABLES Fin al Result [facility] [address] [place] [address], * (ABNORMAL) Complete blood count (02/25/2024 5:00 AM EST) WBC 4.4(L) 4.8 - 10.8 K/mcL LAB HEMETOLOGY METHOD 02/25/2024 12:[address] [facility] RBC 3.10(L) 4.50 - 5.50 M/mcL LAB HEMETOLOGY METHOD 02/25/2024 12:[address] [facility] Hemoglobin 9.9(L) 13.5 - 17.5 g/dL LAB HEMETOLOGY METHOD 02/25/2024 12:[address] [facility] Hematocrit 31.0(L) 42.0 - 54.0 % LAB HEMETOLOGY METHOD 02/25/2024 12:[address] [facility] MCV 99.7(H) 79.0 - 98.0 FL LAB HEMETOLOGY METHOD 02/25/2024 12:[address] [facility] MCH 31.8 27.0 - 32.0 pcg LAB HEMETOLOGY METHOD 02/25/2024 12:[address] [facility] MCHC 31.9(L) 32.0 - 37.0 g/dL LAB HEMETOLOGY METHOD 02/25/2024 12:35 PM EST [facility] RDW 15.5(H) 11.0 - 15.0 % LAB HEMETOLOGY METHOD 02/25/2024 12:35 PM EST [facility] Platelets 189 130 - 400 K/mcL LAB HEMETOLOGY METHOD 02/25/2024 12:35 PM EST [facility] MPV 10.5 7.0 - 11.0 FL LAB HEMETOLOGY METHOD 02/25/2024 12:35 PM EST [facility] NRBC 0.0 <1.0 % LAB HEMETOLOGY METHOD 02/25/2024 12:[address] [facility] NRBC Absolute 0.00 <0.10 K/mcL LAB HEMETOLOGY METHOD 02/25/2024 12:[address] [facility] Blood Venous blood specimen / Unknown Venipuncture / Unknown 02/25/2024 5:00 AM EST 02/25/2024 10:40 AM EST us Lauren Wiley MD LAB BLOOD ORDERABLES Fin al Result [facility] [address] [place] [address], documented in this encounter Visit Diagnoses Diagnosis Essential (primary) hypertension Unspecified essential hypertension documented in this encounter Additional Health Concerns Infection Onset Date Last Indicated Resolved Time ESBL 03/29/2024 03/29/2024 documented as of this encounter Care Teams Quality Assurance Calibrator Relationship Specialty Start Date End Date Lauren Wiley MD [address] [place] [address] PCP - General Family Medicine 01/28/24 documented as of this encounter
--- OUTSIDE RECORDS SUMMARY | 2024-04-19 10:16 | XMS_ITS | Encounter Summary ---
Author Organization [employer] Address [address] [place] [address] Care Team Providers Care Finisher Screwdown Name Role Phone Lauren Wiley MD Primary Care Provider + Encounter Details Date Type Department Care Team (Late st Contact Info) Description 03/15/2024 Lab Requisition [facility] Lab [address] [place] [address] Lauren Wiley MD [address] [phone] Essential (primary) hypertension; Anemia, unspecified Social History [...] LAB CHEMISTRY METHOD 03/15/2024 3:35 PM EST [facility] Potassium 4.3 3.5 - 5.5 mmol/L LAB CHEMISTRY METHOD 03/15/2024 3:35 PM EST [facility] Chloride 114(H) 96 - 110 mmol/L LAB CHEMISTRY METHOD 03/15/2024 3:35 PM [facility] CO2 26 21 - 32 mmol/L LAB CHEMISTRY METHOD 03/15/2024 3:35 PM [facility] Anion Gap 2(L) 3 - 11 LAB CHEMISTRY METHOD 03/15/2024 3:35 PM [facility] Glucose 98 70 - 100 mg/dL LAB CHEMISTRY METHOD 03/15/2024 3:35 PM [facility] BUN 33(H) 5 - 25 mg/dL LAB CHEMISTRY METHOD 03/15/2024 3:35 PM [facility] Creatinine 1.00 0.70 - 1.30 mg/dL LAB CHEMISTRY METHOD 03/15/2024 3:35 PM [facility] eGFR 81 >=60 mL/min/1. 73m2 LAB CHEMISTRY METHOD 03/15/2024 3:35 PM [facility] Comment:Calculation based on the??Chronic Kidney Disease Epidemiology Collaboration (CKD-EPI) equation refit??without adjustment for race. BUN/Creatinine Ratio 33.0 LAB CHEMISTRY METHOD 03/15/2024 3:35 PM [facility] Calcium 8.6 8.5 - 10.5 mg/dL LAB CHEMISTRY METHOD 03/15/2024 3:35 PM [facility] AST (SGOT) 19 10 - 42 unit/L LAB CHEMISTRY METHOD 03/15/2024 3:35 PM [facility] ALT (SGPT) 22 10 - 60 unit/L LAB CHEMISTRY METHOD 03/15/2024 3:35 PM [facility] Alkaline Phosphatase 91 42 - 121 unit/L LAB CHEMISTRY METHOD 03/15/2024 3:35 PM [facility] Total Protein 5.7(L) 6.0 - 8.0 g/dL LAB CHEMISTRY METHOD 03/15/2024 3:35 PM [facility] Albumin 2.3(L) 3.2 - 5.0 g/dL LAB CHEMISTRY METHOD 03/15/2024 3:35 PM [facility] Total Bilirubin 0.4 0.0 - 1.4 mg/dL LAB CHEMISTRY METHOD 03/15/2024 3:35 PM [facility] Blood Venous blood specimen / Unknown Venipuncture / Unknown 03/15/2024 5:05 AM EST 03/15/2024 11:34 AM EST us Lauren Wiley MD LAB BLOOD ORDERABLES Fin al Result [facility] [address] [place] [address], * (ABNORMAL) Complete blood count (03/15/2024 5:05 AM EST) WBC 4.1(L) 4.8 - 10.8 K/mcL LAB HEMETOLOGY METHOD 03/15/2024 12:22 PM [facility] RBC 3.10(L) 4.50 - 5.50 M/mcL LAB HEMETOLOGY METHOD 03/15/2024 12:22 PM [facility] Hemoglobin 10.1(L) 13.5 - 17.5 g/dL LAB HEMETOLOGY METHOD 03/15/2024 12:22 PM [facility] Hematocrit 31.0(L) 42.0 - 54.0 % LAB HEMETOLOGY METHOD 03/15/2024 12:22 PM [facility] MCV 99.4(H) 79.0 - 98.0 FL LAB HEMETOLOGY METHOD 03/15/2024 12:22 PM [facility] MCH 32.4(H) 27.0 - 32.0 pcg LAB HEMETOLOGY METHOD 03/15/2024 12:22 PM [facility] MCHC 32.6 32.0 - 37.0 g/dL LAB HEMETOLOGY METHOD 03/15/2024 12:22 PM [facility] RDW 15.5(H) 11.0 - 15.0 % LAB HEMETOLOGY METHOD 03/15/2024 12:22 PM [facility] Platelets 137 130 - 400 K/mcL LAB HEMETOLOGY METHOD 03/15/2024 12:22 PM [facility] MPV 10.7 7.0 - 11.0 FL LAB HEMETOLOGY METHOD 03/15/2024 12:22 PM [facility] NRBC 0.0 <1.0 % LAB HEMETOLOGY METHOD 03/15/2024 12:22 PM [facility] NRBC Absolute 0.00 <0.10 K/mcL LAB HEMETOLOGY METHOD 03/15/2024 12:22 PM [facility] Blood Venous blood specimen / Unknown Venipuncture / Unknown 03/15/2024 5:05 AM EST 03/15/2024 11:34 AM EST Lauren Wiley MD LAB BLOOD ORDERABLES Fin al Result [facility] [address] [place] [address], documented in this encounter Visit Diagnoses Diagnosis Essential (primary) hypertension Unspecified essential hypertension Anemia, unspecified documented in this encounter Additional Health Concerns Infection Onset Date Last Indicated Resolved Time ESBL 03/29/2024 03/29/2024 documented as of this encounter Care Teams Finisher Screwdown Relationship Specialty Start Date End Date Lauren Wiley MD [address] [place] [address] PCP - General Family Medicine 01/28/24 documented as of this encounter
--- OUTSIDE RECORDS SUMMARY | 2024-04-19 10:17 | XMS_ITS | Encounter Summary ---
Author Organization [employer] Address [address] [place] [address] Care Team Providers Care Reporting Manager Name Role Phone Lauren Wiley MD Primary Care Provider + Encounter Details Date Type Department Care Team (Late st Contact Info) Description 03/29/2024 Lab Requisition [facility] - Main Lab [address] [place] [address] Lauren Wiley MD [address] [phone] Hematuria, unspecified Social History Tobacco Use Types Packs/Day [...] Procedure Name Priority Date/Time Associated Diagnosis Comments URINALYSIS WITH REFLEX MICROSCOPIC Routine 03/29/2024 12:00 AM EST Hematuria, unspecified URINALYSIS WITH REFLEX MICROSCOPIC Routine 03/29/2024 12:00 AM EST Hematuria, unspecified CULTURE URINE Routine 03/29/2024 12:00 AM EST Hematuria, unspecified documented in this encounter Results * (ABNORMAL) Urinalysis with reflex microscopic (03/29/2024 12:00 AM EST) Specific [place] Urine 1.013 1.003 - 1.030 LAB URINALYSIS - AUTOMATED METHOD 03/29/2024 11:21 AM EST [facility] pH, Urine >=9.0(A) 5.0 - 8.0 pH LAB URINALYSIS - AUTOMATED METHOD 03/29/2024 11:21 AM [facility] Leukocytes, Urine Large(A) Negative LAB URINALYSIS - AUTOMATED METHOD 03/29/2024 11:21 AM [facility] Nitrite, Urine Positive(A) Negative LAB URINALYSIS - AUTOMATED METHOD 03/29/2024 11:21 AM [facility] Protein, Urine 100(A) <=Trace mg/dL LAB URINALYSIS - AUTOMATED METHOD 03/29/2024 11:21 AM [facility] Glucose, Urine Negative Negative mg/dL LAB URINALYSIS - AUTOMATED METHOD 03/29/2024 11:21 AM [facility] Ketones, Urine Negative Negative mg/dL LAB URINALYSIS - AUTOMATED METHOD 03/29/2024 11:21 AM [facility] Urobilinogen , Urine 0.2 0.2 - 1.0 mg/dL LAB URINALYSIS - AUTOMATED METHOD 03/29/2024 11:21 AM [facility] Bilirubin, Urine Negative Negative LAB URINALYSIS - AUTOMATED METHOD 03/29/2024 11:21 AM [facility] Blood, Urine Large(A) Negative LAB URINALYSIS - AUTOMATED METHOD 03/29/2024 11:21 AM [facility] RBC, Urine 264(H) 0 - 4 /HPF LAB URINALYSIS - AUTOMATED METHOD 03/29/2024 11:21 AM [facility] WBC, Urine 40(H) 0 - 4 /HPF LAB URINALYSIS - AUTOMATED METHOD 03/29/2024 11:21 AM [facility] Squamous Epithelial, Urine 16 0 - 60 /LPF LAB URINALYSIS - AUTOMATED METHOD 03/29/2024 11:21 AM [facility] Bacteria, Urine Moderate(A) Negative /HPF LAB URINALYSIS - AUTOMATED METHOD 03/29/2024 11:21 AM [facility] Hyaline Casts, Urine 5.2(H) 0 - 3 /LPF LAB URINALYSIS - AUTOMATED METHOD 03/29/2024 11:21 AM EST [facility] Urine Urine specimen from urethra / Unknown 03/29/2024 03/29/2024 10:16 AM EST us Lauren Wiley MD LAB URINE ORDERABLES Fin al Result [facility] [address] [place] [address], * (ABNORMAL) Culture urine (03/29/2024 12:00 AM EST) Culture, Urine >100,000 CFU/mL Providencia stuartii(A) AL 04/02/2024 8:09 AM EST [facility] Comment: This is an edited result. Previous organism was Gram negative bacilli on 03/30/2024 at 1021 EST. Culture, Urine 50,000-100,000 CFU/mL Escherichia coli ESBL(A) AL 04/02/2024 8:09 AM EST [facility] Comment: THIS ORGANISM IS POSITIVE [...] Unknown 03/29/2024 03/29/2024 10:16 AM EST Narrative [facility] - 04/02/2024 8:09 AM EST [...] MICROBIOLOGY - GENER AL ORDERABLES Final Result [email or web address] [address] [place] [address], documented in this encounter Visit Diagnoses Diagnosis Hematuria, unspecified documented in this encounter Additional Health Concerns Infection Onset Date Last Indicated Resolved Time ESBL 03/29/2024 03/29/2024 documented as of this encounter Care Teams Reporting Manager Relationship Specialty Start Date End Date Lauren Wiley MD [address] [place] [address] PCP - General Family Medicine 01/28/24 documented as of this encounter
[2024-04-19 11:26] LABS: Appearance Urine Cloudy; Color Urine RED; Leukocyte Esterase Urine Large (3+) (Negative); PH 7.5 (5.0-9.0); UMIC TRIGGER UACC YES; Urine Blood Large (3+) (Negative); Urine Ketones Negative (Negative); Urine Protein 100 (2+) mg/dL (Neg-Trace)
--- NOTE | 2024-04-19 11:30 | PC.NURSE ---
Pt.'s R hand (contracted at baseline) appears to be cool to touch and cyanotic. aware
--- NOTE | 2024-04-19 11:31 | ECG_ITS ---
Test Reason : ?svt Blood Pressure : */* mmHG Vent. Rate : 161 BPM Atrial Rate : * BPM P-R Int : * ms QRS Dur : 66 ms QT Int : 214 ms P-R-T Axes : * 61 4 degrees QTcB Int : 350 ms Poor data quality Sinus tachycardia When compared with ECG of 19-Apr-2024 09:39, Poor data quality in current ECG precludes serial comparison Referred By: Jose Alberto Schaefer Electronically Signed By: Emmanuel Freitas
[2024-04-19 11:33] LABS: Reflex Lactate? Lactic Acid Added
[2024-04-19 11:38] LABS: Bacteria Urine 4+ (None Seen); RBC Urine >20 /HPF (0-2); Squamous Epithelial Cell Urine 0-2 /HPF (0-2); UACC Culture Trigger YES; WBC Urine >50 /HPF (0-5)
[2024-04-19] MEDS: fentaNYL citrate/PF 100 MCG/2 ML VIAL 50 MCG IVPUSH (11:39)
--- NOTE | 2024-04-19 11:52 | P.HPHOSP_ITS ---
History of Present Illness Date of Service: 04/19/24 Attending physician on admission: Rowena Silver Chief Complaint: Hematuria Pt is a -year-old female with a PMH significant for?vascular dementia nonverbal at baseline, CVA with R-sided hemiparesis, neurogenic bladder with hx of FQ- sensitive Pseudomonas UTI and chronic SPC, stage 4 sacral decubitus ulcer, hx C. difficile colitis, seizure disorder, HTN, HLD, and pAF on rivaroxaban who presents to the ED from [facility] for evaluation of hematuria. Staff report catheter was changed last night at facility at approximately 23:00 by SNF staff. Pt was noted this morning to have blood in his catheter bag. Pt is nonverbal at baseline and unable to meaningfully contribute to HPI. In the ED pt was Tachycardic up to 150 tachypneic up to 25 and febrile up to 027 Labs were significant for CXR showed CT? EKG demonstrated Pt was treated with Pt will be admitted to the hospital [facility] Medical History Paralytic ileus of small intestine and colon Calculi, ureter Osteomyelitis of sacrum Decubitus ulcer Acute UTI Seizure disorder Chronic constipation Decubitus ulcer of sacral area Osteomyelitis Septic shock C. 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 Mother No problems noted. Surgical History No pertinent past surgical history Social History Household Members: Unknown / Unable to assess Household Members Other:: SNF Housing: Long-Term Are you a primary floor care technician to a significant other at home: No Do you presently have visiting nurse or other home services: No Unable to assess alcohol history related to: Unable to respond Alcohol intake: former Comment: patient sleeping Patient Tobacco Use Status: Tobacco use Unknown Second Hand Smoke Exposure: No Advance Directives: Yes Advance Directives on File: Yes Advance Directives Date on File: 02/14/20 service: No Current occupational status: disabled Meds Allergies Allergy/AdvReac Type Severity Reaction Status Date / Time No Known Allergies Allergy Verified 04/19/24 09:24 [No Known Allergies*] Home Medications ?Medication ?Instructions ?Recorded ?Confirmed ?Last Taken ?Type acetaminophen 325 mg tablet 650 mg PO Q4H PRN fever/pain 02/16/21 01/23/24 Unknown History bisacodyl 10 mg rectal suppository 10 mg SD DAILY PRN If no BM in 8 02/16/21 01/23/24 Unknown History hours after use of MoM calcium 600 mg (as 1 tab PO BID 02/16/21 01/23/24 02/14/22 History carbonate)-vitamin D3 5 mcg (200 unit) tablet magnesium hydroxide 400 mg/5 mL 30 ml PO DAILY PRN No BM in 3 Days 02/16/21 01/23/24 Unknown History oral suspension (Milk of Magnesia) levetiracetam 100 mg/mL oral 2.5 ml PO BID 02/26/21 01/23/24 02/14/22 History solution atorvastatin 80 mg tablet 80 mg PO DAILY 01/26/22 01/23/24 02/14/22 History rivaroxaban 20 mg tablet (Xarelto) 20 mg PO DAILY 01/26/22 01/23/24 02/14/22 History magnesium citrate 150 ml PO DAILY PRN No BM in 12 hrs 02/15/22 01/23/24 Unknown History sodium phosphates 19 gram-7 118 ml SD DAILY PRN If no BM in 8 02/15/22 01/23/24 Unknown History gram/118 mL enema (Fleet Enema) hours after use of Bisacodyl acetaminophen 325 mg tablet 650 mg PO BEDTIME 10/03/22 01/23/24 Unknown History (Tylenol) acetic acid 0.25 % irrigation 50 ml irrigation TUTHSA@2100 10/03/22 01/23/24 Unknown History solution ferrous sulfate 325 mg (65 mg 325 mg PO DAILY 12/22/22 01/23/24 Unknown History iron) tablet multivitamin 1 tab PO DAILY 01/18/24 01/23/24 Unknown History psyllium 1 ea PO BEDTIME 01/18/24 01/23/24 Unknown History sodium hypochlorite 0.125 % 1 appl topical BEDTIME 01/18/24 01/23/24 Unknown History solution Physical Exam 2 Vital Signs and Narrative: Vital Signs: Last Vital Signs Temp 100 F 04/19/24 08:55 Pulse 132 H 04/19/24 11:14 Resp 21 H 04/19/24 11:39 BP 117/59 L 04/19/24 11:14 Pulse Ox 97 04/19/24 11:14 O2 Del Method Room Air 04/19/24 11:14 BMI result Body Mass Index 23.9 Results Labs 04/19/24 09:22 04/19/24 09:22 Labs: Laboratory Results - last 24 hr 04/19/24 04/19/24 09:22 11:13 MCV 96.7 MCH 32.5 MCHC 33.6 RDW 14.3 Plt Count 171 D MPV 9.1 L Immature Gran % (Auto) 0.3 Neut % (Auto) 88.1 H Lymph % (Auto) 5.6 L [place] % (Auto) 5.7 Eos % (Auto) 0.1 Baso % (Auto) 0.2 Lymph # (Auto) 0.5 L [place] # (Auto) 0.5 Eos # (Auto) 0.0 Baso # (Auto) 0.0 Abs Immat Gran (auto) 0.03 Absolute Neuts (auto) 8.2 Absolute Nucleated RBC 0.000 Nucleated RBC % (auto) 0.0 Anion Gap 13 Estim Creat Clear Calc 47.5 Estimated GFR 52 Random Glucose 167 H Lactic Acid 3.8 H* Calcium 9.2 D Total Bilirubin 0.6 AST 23 ALT 17 Alkaline Phosphatase 109 Total Protein 7.7 Albumin 3.2 L Urine Color RED Urine Appearance Cloudy Urine pH 7.5 Ur Specific [place] 1.010 Urine Protein 100 (2+) H Urine Glucose (UA) See Note Urine Ketones Negative Urine Blood Large (3+) H Urine Nitrite See Note Ur Leukocyte Esterase Large (3+) H Urine RBC >20 H Urine WBC >50 H Ur Squamous Epith Cells 0-2 Urine Bacteria 4+ Hyaline Casts 3-5 Imaging Radiologist's Impressions: Impressions Abdomen/Pelvis CT 04/19/24 10:12 IMPRESSION: Suprapubic catheter with the balloon performed in the prosthetic urethra. Please reposition. Bilateral hydroureteronephrosis, moderate secondary to multiple obstructing calculi distal ureters. Staghorn calculus, right pelvicalyceal system. Percutaneously placed nephrostomy tube in the right renal pelvis. Gas bubble in the pelvicalyceal system right kidney likely posterior instrumentation. Gas organism infection cannot be excluded. Pseudoobstruction rectosigmoid colon probable metabolic/neurogenic etiology. Skin breakdown, sacrum extending to the sacrum. Superimposed infection cannot be excluded. Discussed with the emergency physician Dr. Jose Alberto Schaefer ,on April 19, 2024 at 10:50 AM. Fleischner guidelines were followed. Electronically signed by: Wisam Palmer MD 04/19/2024 10:55 AM EST RP Chest X-Ray 04/19/24 10:34 IMPRESSION: Low lung volumes. Probable left basilar subsegmental atelectasis. Electronically signed by: Ho Cruz MD 04/19/2024 10:57 AM EST RP
[2024-04-19] MEDS: Acetaminophen 1,000 MG/100 ML PIGGYBACK 400 MG IV (11:57)
--- NOTE | 2024-04-19 12:00 | PC.NURSE ---
Blood noted to be coming out of penis and pt. keeps rubbing the area, causing further bleeding. MD Silvano notified of blood and soft wrist restraint applied to L wrist to prevent pt. from continuing to aggrivate the area.
[2024-04-19 12:09] LABS: Troponin-I High Sensitivity 13.1 ng/L (<3.5-35.0)
[2024-04-19] MEDS: LORazepam 2 MG/ML VIAL 0.5 MG IVPUSH (12:28)
[2024-04-19 13:05] LABS: ~Lactic Acid-LAB USE ONLY 6.7 mmol/L (0.5-2.0)
[2024-04-19] MEDS: Norepinephrine Bitartrate/D5W 8 MG/250 ML PLAST..BAG 6.49 MG IV (13:07)
--- NOTE | 2024-04-19 13:13 | PC.NURSE ---
Per cole Escobar MD - Infuse Levo. gtt at 0.15 at this time for critically low MAP.
--- NOTE | 2024-04-19 13:31 | PC.NURSE ---
checked pulse to pt.'s R wrist with doppler - bounding, strong pulse present
--- NOTE | 2024-04-19 13:31 | PC.NURSE ---
IV access peripheral x3 - 20G to R lower forarm, 20G to LAC, 20G to L lower forearm.
[2024-04-19] MEDS: Albumin Human 25 % 100 ML 133.33 ML IV (13:44)
[2024-04-19] MEDS: vancomycin HCL 1,000 MG, vancomycin HCL 750 MG in 0.9 % Sodium Chloride 500 ML 267.5 MG IV (13:46)
[2024-04-19] MEDS: Heparin Sodium,Porcine 5,000 UNIT/ML VIAL 5000 UNIT SUBCUT (13:52)
--- NOTE | 2024-04-19 14:03 | PC.NURSE ---
RN-to-RN report given to Haris Arteaga RN in ICU verbally over the phone.
--- NOTE | 2024-04-19 14:18 | PHA.MEDREC ---
Addendum entered by Melba Luna RPh 04/19/24 15:46: Med rec was reviewed by [facility]. Original Note: Pharmacy Consult ? Medication Reconciliation Pharmacy has completed the medication reconciliation. [facility].
[2024-04-19 14:20] LABS: VBG Base Excess -13.7 mmol/L; VBG HCO3 11 mmol/L (22-26); VBG pCO2 23 mmHg; VBG pH 7.27 (7.32-7.43); VBG pO2 205 mmHg
[2024-04-19 14:42] LABS: Reflex Lactate? 2 Y
[2024-04-19 14:46] LABS: Venous Blood Gas Refer to POC result
[2024-04-19 15:26] LABS: ~Lactic Acid-LAB USE ONLY 7.1 mmol/L (0.5-2.0)
--- NOTE | 2024-04-19 15:30 | P.HPCC_ITS ---
History of Present Illness Date of Service: 04/19/24 Chief Complaint: Septic shock 68-year-old gentleman with underlying history of hypotension, hyperlipidemia, CVA with residual right-sided deficits, neurogenic bladder status post suprapubic catheter [facility] transferred to emergency room to evaluate for hematuria and hypotension. Suprapubic catheter repositioned by ER provider. Urology service consulted. Patient with poor response to initial IV fluid resuscitation requiring initiation of pressor support and admission to intensive care unit. Review of Systems 2 Review of Systems: Yes Unobtainable due to mental status PMFSH Past Medical History Medical History (Updated 04/19/24 @ 15:46 by Zoltan Escobar MD) Septic shock Paralytic ileus of small intestine and colon Calculi, ureter Osteomyelitis of sacrum Decubitus ulcer Acute UTI Seizure disorder Chronic constipation Decubitus ulcer of sacral area Osteomyelitis C. 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 Mother No problems noted. Surgical History Surgical History No pertinent past surgical history Social History Social History Household Members: Other Household Members Other:: [facility] Housing: Shelter Are you a primary career representative to a significant other at home: No Do you presently have visiting nurse or other home services: No Unable to assess alcohol history related to: Unable to respond Alcohol intake: former Comment: patient sleeping Patient Tobacco Use Status: Tobacco use Unknown Second Hand Smoke Exposure: No Use of substances other than those prescribed or required for medical reasons: Unable to respond Advance Directives: Yes Advance Directives on File: Yes Advance Directives Date on File: 02/14/20 Nutrition Risks: On aspiration precautions service: No Current occupational status: disabled Meds Allergies Allergy/AdvReac Type Severity Reaction Status Date / Time No Known Allergies Allergy Verified 04/19/24 09:24 [No Known Allergies*] Active Medications: Current Medications Heparin Sodium (Porcine) (Heparin Sodium,Porcine 5,000 Unit/Ml Vial) 5,000 unit SUBCUT Q8H [facility] Last Admin: 04/19/24 13:52 Dose: 5,000 unit Norepinephrine Bitartrate (Levophed) 8 mg in 250 mls @ 0 mls/hr IV .Q0M [facility]; Protocol Last Titration: 04/19/24 14:34 Dose: 0.19 mcg/kg/min, 24.65 mls/hr Vancomycin HCl 1,250 mg/ (Sodium Chloride) 250 mls @ 166.667 mls/hr IV Q24H KEE Cefepime HCl (Maxipime) 2 gm in 50 mls @ 100 mls/hr IV Q12H [facility] Pharmacy Consult (Consult Rx Vancomycin Dosing) 1 each MISCELLANE DAILY PRN PRN Reason: Consult order Home Medications ?Medication ?Instructions ?Recorded ?Confirmed ?Last Taken ?Type acetaminophen 325 mg tablet 650 mg PO Q4H PRN fever/pain 02/16/21 04/19/24 Unknown History bisacodyl 10 mg rectal suppository 10 mg SD DAILY PRN If no BM in 8 02/16/21 04/19/24 Unknown History hours after use of MoM calcium 600 mg (as 1 tab PO BID 02/16/21 04/19/24 02/14/22 History carbonate)-vitamin D3 5 mcg (200 unit) tablet magnesium hydroxide 400 mg/5 mL 30 ml PO DAILY PRN No BM in 3 Days 02/16/21 04/19/24 Unknown History oral suspension (Milk of Magnesia) levetiracetam 100 mg/mL oral 2.5 ml PO BID 02/26/21 04/19/24 02/14/22 History solution atorvastatin 80 mg tablet 80 mg PO DAILY 01/26/22 04/19/24 02/14/22 History rivaroxaban 20 mg tablet (Xarelto) 20 mg PO DAILY@1700 01/26/22 04/19/24 02/14/22 History magnesium citrate 150 ml PO DAILY PRN No BM in 12 hrs 02/15/22 04/19/24 Unknown History sodium phosphates 19 gram-7 118 ml SD DAILY PRN If no BM in 8 02/15/22 04/19/24 Unknown History gram/118 mL enema (Fleet Enema) hours after use of Bisacodyl acetaminophen 325 mg tablet 650 mg PO BEDTIME 10/03/22 04/19/24 Unknown History (Tylenol) acetic acid 0.25 % irrigation 50 ml irrigation TUTHSA@2100 10/03/22 04/19/24 Unknown History solution ferrous sulfate 325 mg (65 mg 325 mg PO DAILY 12/22/22 04/19/24 Unknown History iron) tablet multivitamin 1 tab PO DAILY 01/18/24 04/19/24 Unknown History psyllium 1 ea PO BEDTIME 01/18/24 04/19/24 Unknown History sodium hypochlorite 0.125 % 1 appl topical BEDTIME 01/18/24 04/19/24 Unknown History solution oxycodone 5 mg tablet 5 mg PO DAILY PRN Pain/Wound 04/19/24 04/19/24 Unknown History Management potassium chloride 20 mEq/15 mL 30 meq PO BID 04/19/24 04/19/24 Unknown History oral liquid simethicone 80 mg chewable tablet 80 mg PO Q6H PRN Abdominal 04/19/24 04/19/24 Unknown History Distention Physical Exam 2 Vital Signs: Vital Signs: Last Vital Signs Temp 102.7 F H 04/19/24 11:46 Pulse 117 H 04/19/24 15:00 Resp 20 04/19/24 15:00 BP 92/51 L 04/19/24 15:00 Pulse Ox 94 04/19/24 15:00 O2 Del Method Room Air 04/19/24 13:22 BMI result Body Mass Index 23.9 Const: General: no acute distress and patient obtunded O rientation/consciousness: patient obtunded Eyes: Sclerae: sclerae normal EOM: EOMs intact bilaterally Neck: Neck: Yes no lymphadenopathy, Yes trachea midline and Yes supple Resp: Effort & Inspection: normal respiratory effort and no respiratory distress Auscultation: clear to auscultation bilaterally Cardio: Rate: tachycardic Rhythm: regular rhythm Heart sounds: no gallops, no murmurs and no rubs GI: Palpation (GI): Soft to palpation and Other GI palpation findings present ( Nontender) Auscultation: normal bowel sounds Neuro: General: patient obtunded Extrem: General: No clubbing and No cyanosis Results Labs 04/19/24 09:22 04/19/24 09:22 Labs: Laboratory Results - last 24 hr 04/19/24 04/19/24 04/19/24 09:22 11:13 12:38 MCV 96.7 MCH 32.5 MCHC 33.6 RDW 14.3 Plt Count 171 D MPV 9.1 L Immature Gran % (Auto) 0.3 Neut % (Auto) 88.1 H Lymph % (Auto) 5.6 L [place] % (Auto) 5.7 Eos % (Auto) 0.1 Baso % (Auto) 0.2 Lymph # (Auto) 0.5 L [place] # (Auto) 0.5 Eos # (Auto) 0.0 Baso # (Auto) 0.0 Abs Immat Gran (auto) 0.03 Absolute Neuts (auto) 8.2 Absolute Nucleated RBC 0.000 Nucleated RBC % (auto) 0.0 VBG pH VBG pCO2 VBG pO2 VBG HCO3 VBG O2 Saturation VBG Base Excess Anion Gap 13 Estim Creat Clear Calc 47.5 Estimated GFR 52 Random Glucose 167 H Lactic Acid 3.8 H* Lactic Acid F/U @ 2Hr 6.7 H* Lactic Acid F/U @ 4Hr Calcium 9.2 D Total Bilirubin 0.6 AST 23 ALT 17 Alkaline Phosphatase 109 Total Protein 7.7 Albumin 3.2 L Urine Color RED Urine Appearance Cloudy Urine pH 7.5 Ur Specific [place] 1.010 Urine Protein 100 (2+) H Urine Glucose (UA) See Note Urine Ketones Negative Urine Blood Large (3+) H Urine Nitrite See Note Ur Leukocyte Esterase Large (3+) H Urine RBC >20 H Urine WBC >50 H Ur Squamous Epith Cells 0-2 Urine Bacteria 4+ Hyaline Casts 3-5 04/19/24 04/19/24 14:14 14:53 MCV MCH MCHC RDW Plt Count MPV Immature Gran % (Auto) Neut % (Auto) Lymph % (Auto) [place] % (Auto) Eos % (Auto) Baso % (Auto) Lymph # (Auto) [place] # (Auto) Eos # (Auto) Baso # (Auto) Abs Immat Gran (auto) Absolute Neuts (auto) Absolute Nucleated RBC Nucleated RBC % (auto) VBG pH 7.27 L VBG pCO2 23 VBG pO2 205 VBG HCO3 11 L VBG O2 Saturation 99.0 VBG Base Excess -13.7 Anion Gap Estim Creat Clear Calc Estimated GFR Random Glucose Lactic Acid Lactic Acid F/U @ 2Hr Lactic Acid F/U @ 4Hr 7.1 H* Calcium Total Bilirubin AST ALT Alkaline Phosphatase Total Protein Albumin Urine Color Urine Appearance Urine pH Ur Specific [place] Urine Protein Urine Glucose (UA) Urine Ketones Urine Blood Urine Nitrite Ur Leukocyte Esterase Urine RBC Urine WBC Ur Squamous Epith Cells Urine Bacteria Hyaline Casts Imaging Radiologist's Impressions: Impressions Abdomen/Pelvis CT 04/19/24 10:12 IMPRESSION: Suprapubic catheter with the balloon performed in the prosthetic urethra. Please reposition. Bilateral hydroureteronephrosis, moderate secondary to multiple obstructing calculi distal ureters. Staghorn calculus, right pelvicalyceal system. Percutaneously placed nephrostomy tube in the right renal pelvis. Gas bubble in the pelvicalyceal system right kidney likely posterior instrumentation. Gas organism infection cannot be excluded. Pseudoobstruction rectosigmoid colon probable metabolic/neurogenic etiology. Skin breakdown, sacrum extending to the sacrum. Superimposed infection cannot be excluded. Discussed with the emergency physician Dr. Jose Alberto Schaefer ,on April 19, 2024 at 10:50 AM. Fleischner guidelines were followed. Electronically signed by: Wisam Palmer MD 04/19/2024 10:55 AM [facility] RP Chest X-Ray 04/19/24 10:34 IMPRESSION: Low lung volumes. Probable left basilar subsegmental atelectasis. Electronically signed by: Ho Cruz MD 04/19/2024 10:57 AM [facility] RP Assessment and Plan (1) Acute UTI: Status: Acute (2) Septic shock: Status: Acute (3) Dysarthria due to acute cerebellar cerebrovascular accident (CVA): Status: Acute Plan Assessment: 68-year-old gentleman admitted with septic shock with likely source requiring pressor support. Plan: Neuro: No acute issues. Underlying CVA with residual right sided paresis and neurogenic bladder. Cardiac: Septic shock, continue to titrte off pressor support as tolerated. Pulmonary: No acute issues. Renal: Hematuria, s/p catheter repositioning. Neurogenic bladder. Urology service care appreciated. Known b/l hydronephrosis and calculi s/p right nephrostomy and suprapubic catheter Endo: No acute issues. GI: No acute issues. ID: Septic shock with likely source. Prior history of multiple resistant organisms. Continue Cefepime and Vancomycin. Blood / urine cultures are pending. Heme/Onc: No acute issues. Psych: No acute issues. Miscellaneous: No acute issues. Prophylaxis: Heparin Diet: NPO Critical care time spent: 60 minutes
--- NOTE | 2024-04-19 16:35 | PM.UROCN ---
History of Present Illness Consult details Consult date: 04/26/24 Narrative: 68yo M LTC resident of [facility] pt is nonverbal and bedbound with vascular dementia, CVA with R-sided hemiparesis, neurogenic bladder with chronic SPT, stage 4 sacral decubitus ulcer, hx C. difficile colitis, seizure disorder, HTN, HLD, reportedly no urinary output for 8 days. Pt presented to ED with abdominal pain. ED physician changed SPT with good urine return. CT showed Right perinephic stranding, Right staghorn calculus, ureteral stones mild hydro- chronic, similar findings in september, renal fxn stable, repeat lactic acid normal. Ureteral stent was considered, however due to the position of staghorn calculus will likely limit adequate placement. Will continue to follow, and mange conservatively for now. CT - indwelling right PCN, right staghorn calculus, right distal ureteric stones. Have been the same since September. FORMERLY [facility] Past Medical History Medical History (Updated 04/19/24 @ 15:46 by Zoltan Escobar MD) Septic shock Paralytic ileus of small intestine and colon Calculi, ureter Osteomyelitis of sacrum Decubitus ulcer Acute UTI Seizure disorder Chronic constipation Decubitus ulcer of sacral area Osteomyelitis C. 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 Mother No problems noted. Surgical History Surgical History No pertinent past surgical history Social History Social History Household Members: Other Household Members Other:: [facility] Housing: Correction Are you a primary health care liaison to a significant other at home: No Do you presently have visiting nurse or other home services: No Unable to assess alcohol history related to: Unable to respond Alcohol intake: former Comment: patient sleeping Patient Tobacco Use Status: Tobacco use Unknown Second Hand Smoke Exposure: No Use of substances other than those prescribed or required for medical reasons: Unable to respond Advance Directives: Yes Advance Directives on File: Yes Advance Directives Date on File: 02/14/20 Nutrition Risks: On aspiration precautions service: No Current occupational status: disabled Meds Allergies Allergy/AdvReac Type Severity Reaction Status Date / Time No Known Allergies Allergy Verified 04/19/24 09:24 [No Known Allergies*] Active Medications: Current Medications Heparin Sodium (Porcine) (Heparin Sodium,Porcine 5,000 Unit/Ml Vial) 5,000 unit SUBCUT Q8H [facility] Last Admin: 04/19/24 13:52 Dose: 5,000 unit Norepinephrine Bitartrate (Levophed) 8 mg in 250 mls @ 0 mls/hr IV .Q0M [facility]; Protocol Last Titration: 04/19/24 16:02 Dose: 0.23 mcg/kg/min, 29.84 mls/hr Vancomycin HCl 1,250 mg/ (Sodium Chloride) 250 mls @ 166.667 mls/hr IV Q24H [facility] Cefepime HCl (Maxipime) 2 gm in 50 mls @ 100 mls/hr IV Q12H [facility] Pharmacy Consult (Consult Rx Vancomycin Dosing) 1 each MISCELLANE DAILY PRN PRN Reason: Consult order Home Medications ?Medication ?Instructions ?Recorded ?Confirmed ?Last Taken ?Type acetaminophen 325 mg tablet 650 mg PO Q4H PRN fever/pain 02/16/21 04/19/24 Unknown History bisacodyl 10 mg rectal suppository 10 mg NM DAILY PRN If no BM in 8 02/16/21 04/19/24 Unknown History hours after use of MoM calcium 600 mg (as 1 tab PO BID 02/16/21 04/19/24 02/14/22 History carbonate)-vitamin D3 5 mcg (200 unit) tablet magnesium hydroxide 400 mg/5 mL 30 ml PO DAILY PRN No BM in 3 Days 02/16/21 04/19/24 Unknown History oral suspension (Milk of Magnesia) levetiracetam 100 mg/mL oral 2.5 ml PO BID 02/26/21 04/19/24 02/14/22 History solution atorvastatin 80 mg tablet 80 mg PO DAILY 01/26/22 04/19/24 02/14/22 History rivaroxaban 20 mg tablet (Xarelto) 20 mg PO DAILY@1700 01/26/22 04/19/24 02/14/22 History magnesium citrate 150 ml PO DAILY PRN No BM in 12 hrs 02/15/22 04/19/24 Unknown History sodium phosphates 19 gram-7 118 ml NM DAILY PRN If no BM in 8 02/15/22 04/19/24 Unknown History gram/118 mL enema (Fleet Enema) hours after use of Bisacodyl acetaminophen 325 mg tablet 650 mg PO BEDTIME 10/03/22 04/19/24 Unknown History (Tylenol) acetic acid 0.25 % irrigation 50 ml irrigation TUTHSA@2100 10/03/22 04/19/24 Unknown History solution ferrous sulfate 325 mg (65 mg 325 mg PO DAILY 12/22/22 04/19/24 Unknown History iron) tablet multivitamin 1 tab PO DAILY 01/18/24 04/19/24 Unknown History psyllium 1 ea PO BEDTIME 01/18/24 04/19/24 Unknown History sodium hypochlorite 0.125 % 1 appl topical BEDTIME 01/18/24 04/19/24 Unknown History solution oxycodone 5 mg tablet 5 mg PO DAILY PRN Pain/Wound 04/19/24 04/19/24 Unknown History Management potassium chloride 20 mEq/15 mL 30 meq PO BID 04/19/24 04/19/24 Unknown History oral liquid simethicone 80 mg chewable tablet 80 mg PO Q6H PRN Abdominal 04/19/24 04/19/24 Unknown History Distention Physical Exam Vital Signs: Vital Signs: Last Vital Signs Temp 100.8 F H 04/19/24 16:00 Pulse 112 H 04/19/24 16:02 Resp 20 04/19/24 16:00 BP 77/53 L 04/19/24 16:02 Pulse Ox 96 04/19/24 16:00 O2 Del Method Room Air 04/19/24 16:00 BMI result Body Mass Index 23.9 Results Labs 04/19/24 09:22 04/19/24 09:22 Labs: Abnormal lab results 04/19/24 04/19/24 04/19/24 Range/Units 09:22 11:13 12:38 RBC 3.91 L (4.60-5.80) X10*6/uL Hgb 12.7 L (14.0-18.0) g/dl Hct 37.8 L (42.0-52.0) % MPV 9.1 L (9.4-12.4) fL Neut % (Auto) 88.1 H (45-73) % Lymph % (Auto) 5.6 L (20-40) % Lymph # (Auto) 0.5 L (1.2-4.9) X10*3/uL VBG pH (7.32-7.43) VBG HCO3 (22-26) mmol/L Chloride 115 H (96-108) mmol/L Carbon Dioxide 19 L (22-29) mmol/L BUN 41 H (9-16) mg/dL Random Glucose 167 H (60-115) mg/dL Lactic Acid 3.8 H* (0.5-2.0) mmol/L Lactic Acid F/U @ 2Hr 6.7 H* (0.5-2.0) mmol/L Lactic Acid F/U @ 4Hr (0.5-2.0) mmol/L Albumin 3.2 L (3.5-5.0) g/dL Urine Protein 100 (2+) H (Neg-Trace) mg/dL Urine Blood Large (3+) H (Negative) Ur Leukocyte Esterase Large (3+) H (Negative) Urine RBC >20 H (0-2) /HPF Urine WBC >50 H (0-5) /HPF 04/19/24 04/19/24 Range/Units 14:14 14:53 RBC (4.60-5.80) X10*6/uL Hgb (14.0-18.0) g/dl Hct (42.0-52.0) % MPV (9.4-12.4) fL Neut % (Auto) (45-73) % Lymph % (Auto) (20-40) % Lymph # (Auto) (1.2-4.9) X10*3/uL VBG pH 7.27 L (7.32-7.43) VBG HCO3 11 L (22-26) mmol/L Chloride (96-108) mmol/L Carbon Dioxide (22-29) mmol/L BUN (9-16) mg/dL Random Glucose (60-115) mg/dL Lactic Acid (0.5-2.0) mmol/L Lactic Acid F/U @ 2Hr (0.5-2.0) mmol/L Lactic Acid F/U @ 4Hr 7.1 H* (0.5-2.0) mmol/L Albumin (3.5-5.0) g/dL Urine Protein (Neg-Trace) mg/dL Urine Blood (Negative) Ur Leukocyte Esterase (Negative) Urine RBC (0-2) /HPF Urine WBC (0-5) /HPF Short CBC 04/19/24 Range/Units 09:22 WBC 9.3 (4.8-10.8) X10*3/uL Hgb 12.7 L (14.0-18.0) g/dl Hct 37.8 L (42.0-52.0) % Plt Count 171 D (160-400) X10*3/uL BMP 04/19/24 09:22 Sodium 142 Potassium 5.0 D Chloride 115 H Carbon Dioxide 19 L BUN 41 H Creatinine 1.37 Calcium 9.2 D Liver Function 04/19/24 Range/Units 09:22 Total Bilirubin 0.6 (0.0-1.0) mg/dL AST 23 (5-37) U/L ALT 17 (0-40) U/L Alkaline Phosphatase 109 (39-117) U/L Albumin 3.2 L (3.5-5.0) g/dL Urine 04/19/24 Range/Units 11:13 Urine Color RED Urine Appearance Cloudy Urine pH 7.5 (5.0-9.0) Ur Specific [place] 1.010 (1.005-1.025) Urine Protein 100 (2+) H (Neg-Trace) mg/dL Urine Glucose (UA) See Note (Negative) mg/dL All other labs normal. Procedures Date of Service Date of Service: 04/19/24
[2024-04-19] MEDS: Albumin Human 25 % 100 ML IV (17:14)
--- NOTE | 2024-04-19 18:28 | PC.NURSE ---
Pt arrived on unit at approx 1500. Pt was lethargic and difficult to rouse. Pt bathed. At approx 1730, Dr. Sevilla came to reposition pt's suprapubic catheter. Pt remains on pressors. See MAR and assessments for details.
--- NOTE | 2024-04-19 19:08 | HO.SKINPHOTO ---
Location: Category: Stage: Length: Width: Depth: cm Location: Category: Stage: Length: Width: Depth: cm Location: Category: Stage: Length: Width: Depth: cm Location: Category: Stage: Length: Width: Depth: cm Location: Category: Stage: Length: Width: Depth: cm Location: Category: Stage: Length: Width: Depth: cm
[2024-04-19 20:25] LABS: Lactic Acid 6.5 mmol/L (0.5-2.0)
[2024-04-19] MEDS: Norepinephrine Bitartrate/D5W 8 MG/250 ML PLAST..BAG 32.44 MG IV (20:29)
[2024-04-19 20:39] LABS: Anion Gap 16 (12-20); Blood Urea Nitrogen 37 mg/dL (9-16); Calcium 8.5 mg/dL (8.4-10.2); Carbon Dioxide 12 mmol/L (22-29); Chloride 120 mmol/L (96-108); Creatinine Clr Calc Pharmacy 50.5; Estimated Glomerular Filt Rate 55; Glucose Random 127 mg/dL (60-115); Magnesium 1.8 mg/dL (1.6-2.6); Phosphorus 2.3 mg/dL (2.7-4.5); Potassium 3.9 mmol/L (3.3-5.1); Sodium 144 mmol/L (135-145)
[2024-04-19] MEDS: Potassium Phosphate/NS 15 MMOL/250 ML PLAST..BAG 62.5 MMOL IV (20:54)
[2024-04-19] MEDS: Sodium Bicarbonate 8.4% 150 MEQ in Dextrose 5 % 850 ML 100 MEQ IV (21:15)
[2024-04-19 21:57] LABS: Reflex Lactate? Lactic Acid Added
[2024-04-20] VITALS (43 sets, daily range): BP systolic 86–177; BP diastolic 36–72; PULSE 68–109; RESP 15–21; TEMP 36.6–38.6; O2SAT 95–99; BMI 24.3
[2024-04-20 00:19] LABS: Reflex Lactate? 2 Y
[2024-04-20 00:42] LABS: Cancel Lactic Acid Canceled
[2024-04-20] MEDS: Norepinephrine Bitartrate/D5W 8 MG/250 ML PLAST..BAG 37.63 MG IV (02:15)
[2024-04-20 05:54] LABS: VBG Base Excess -4.8 mmol/L; VBG HCO3 16 mmol/L (22-26); VBG pCO2 20 mmHg; VBG pO2 183 mmHg
[2024-04-20 05:58] LABS: Venous Blood Gas Refer to POC result
[2024-04-20 06:07] LABS: Hematocrit 28.8 % (42.0-52.0); Hemoglobin 9.8 g/dl (14.0-18.0); Mean Corpuscular Hemoglobin 32.5 pg (27.0-33.0); Mean Corpuscular Volume 95.4 fL (80.0-98.0); Mean Platelet Volume 9.4 fL (9.4-12.4); Platelet Count 133 X10*3/uL (160-400); Red Blood Count 3.02 X10*6/uL (4.60-5.80); Red Cell Distribution Width 14.9 % (11.0-16.0)
[2024-04-20 06:14] LABS: Albumin Level 2.8 g/dL (3.5-5.0); Anion Gap 15 (12-20); Blood Urea Nitrogen 36 mg/dL (9-16); Calcium 8.1 mg/dL (8.4-10.2); Carbon Dioxide 15 mmol/L (22-29); Chloride 117 mmol/L (96-108); Creatinine Clr Calc Pharmacy 50.9; Estimated Glomerular Filt Rate 56; Glucose Random 144 mg/dL (60-115); Magnesium 1.7 mg/dL (1.6-2.6); Phosphorus 3.1 mg/dL (2.7-4.5); Potassium 3.5 mmol/L (3.3-5.1); Sodium 143 mmol/L (135-145)
[2024-04-20 06:16] LABS: WBC ABN SCTR FOR CBC 1
[2024-04-20 06:21] LABS: White Blood Count 31.4 X10*3/uL (4.8-10.8)
[2024-04-20 07:21] LABS: Band Neutrophils Percent 18 % (3-5); Lymphocytes Absolute Manual 1.9 X10*3/uL (1.2-4.9); Lymphocytes Percent Manual 6 % (20-40); Monocytes Absolute Manual 0.9 X10*3/uL (0.1-1.2); Monocytes Percent Manual 3 % (2-11); Myelocytes Absolute 0.3 X10*/uL; Myelocytes Percent 1 %; Neutrophils Absolute Manual 28.3 X10*3/uL (2.0-8.3); Neutrophils Percent Manual 72 % (45-73)
[2024-04-20 07:25] LABS: Acanthocytes 2+ (3-5) /OIF; Burr Cells 2+ (3-5) /OIF; Platelet Estimate SLIGHTLY DECREASED (NORMAL); Platelet Morphology Comment NORMAL; RBC Morphology NOTED; Schistocytes 2+ (3-5) /OIF; Toxic Vacuolation PRESENT
[2024-04-20] MEDS: 0.9 % Sodium Chloride Flush 3 ML SYRINGE IVFLUSH ×2 (08:44→15:04)
[2024-04-20] MEDS: Potassium Chloride/H20 10 MEQ/100 ML PIGGYBACK 100 MEQ IV ×5 (08:44→23:19)
[2024-04-20] MEDS: cefEPime HCl/D5W 2 GM/50 ML PIGGYBACK IV ×2 (08:44→20:06)
[2024-04-20] MEDS: Albumin Human 25 % 100 ML IV ×3 (08:44→19:57)
[2024-04-20] MEDS: Sodium Bicarbonate 8.4% 150 MEQ in Dextrose 5 % 850 ML 100 MEQ IV (08:45)
[2024-04-20] MEDS: Norepinephrine Bitartrate/D5W 8 MG/250 ML PLAST..BAG 35.03 MG IV (08:45)
--- NOTE | 2024-04-20 11:05 | MHC.CM.PN ---
Pt admitted to ICU with urosepsis/bacteremia from suprapubic cath. Pt is a LTC resident of [facility] - he is non verbal and w/c bound at baseline but can communicate with head nods/gestures. HCP on file names jose Melendez - message left requesting a callback for confirmation of d/c plan. Pt will need BLS transport. IMM in chart. Re referred to SNF.
--- NOTE | 2024-04-20 11:22 | MHC.CLN ---
PT WITH INCREASED NUTRITION RISK R/T PRESSURE INJURY PT IS CURRENTLY NPO PT IS NONVERBAL AT BASELINE WHEN DIET TO ADVANCE, RECOMMEND ADDING SUPPLEMENT TO PROMOTE WOUND HEALING ENSURE TID WOULD PROVIDE 1050KCALS, 60G PROTEIN FOLLOWING WITH TEAM SEE ALSO FULL CLINICAL NUTRITION ASSESSMENT
--- NOTE | 2024-04-20 14:45 | PM.CCPN ---
Subjective Subjective Date of Service: 04/20/24 Interval History: 68-year-old gentleman with underlying history of hypotension, hyperlipidemia, CVA with residual right-sided deficits, neurogenic bladder status post suprapubic catheter [facility] transferred to emergency room to evaluate for hematuria and hypotension. Suprapubic catheter repositioned by ER provider. Urology service consulted. Patient with poor response to initial IV fluid resuscitation requiring initiation of pressor support and admission to intensive care unit for Gram-negative bacteremia with septic shock secondary to source. No events overnight. Critical Care Time (minutes): 45 Physical Exam Vital Signs: Vital Signs: Last Vital Signs Temp 97.8 F 04/20/24 08:00 Pulse 86 04/20/24 13:00 Resp 20 04/20/24 13:00 BP 116/68 04/20/24 13:00 Pulse Ox 98 04/20/24 13:00 O2 Del Method Room Air 04/20/24 13:00 BMI result Body Mass Index 24.3 Const: General: no acute distress and alert Eyes: Sclerae: sclerae normal EOM: EOMs intact bilaterally Neck: Neck: Yes no lymphadenopathy, Yes trachea midline and Yes supple Resp: Effort & Inspection: normal respiratory effort and no respiratory distress Auscultation: clear to auscultation bilaterally Cardio: Rate: regular rate Rhythm: regular rhythm Heart sounds: no gallops, no murmurs and no rubs GI: Palpation (GI): Soft to palpation and Other GI palpation findings present ( Nontender) Auscultation: normal bowel sounds Extrem: General: Yes no pedal edema, No clubbing and No cyanosis Objective Data Labs 04/20/24 05:48 04/20/24 05:48 Labs: Laboratory Results - last 24 hr 04/19/24 04/19/24 04/19/24 14:53 19:44 22:14 WBC RBC Hgb Hct MCV MCH MCHC RDW Plt Count MPV Immature Gran % (Auto) Neut % (Auto) Lymph % (Auto) [place] % (Auto) Eos % (Auto) Baso % (Auto) Lymph # (Auto) [place] # (Auto) Eos # (Auto) Baso # (Auto) Abs Immat Gran (auto) Absolute Neuts (auto) Absolute Nucleated RBC Nucleated RBC % (auto) Neutrophils % (Manual) Band Neutrophils % Lymphocytes % (Manual) Monocytes % (Manual) Myelocytes % Abs Neuts (Manual) Lymphocytes # (Manual) Monocytes # (Manual) Myelocytes # Toxic Vacuolation Platelet Estimate Plt Morphology Comment RBC Morphology [place] Cells Acanthocytes (Spur) Schistocytes VBG pH VBG pCO2 VBG pO2 VBG HCO3 VBG O2 Saturation VBG Base Excess Sodium 144 Potassium 3.9 D Chloride 120 H Carbon Dioxide 12 L Anion Gap 16 BUN 37 H Creatinine 1.29 Estim Creat Clear Calc 50.5 Estimated GFR 55 Random Glucose 127 H Lactic Acid 6.5 H* Lactic Acid F/U @ 2Hr 6.0 H* Lactic Acid F/U @ 4Hr 7.1 H* Calcium 8.5 D Phosphorus 2.3 L Magnesium 1.8 Albumin 04/20/24 04/20/24 05:48 05:49 WBC 31.4 H* RBC 3.02 L D Hgb 9.8 L D Hct 28.8 L D MCV 95.4 MCH 32.5 MCHC 34.0 RDW 14.9 Plt Count 133 L MPV 9.4 Immature Gran % (Auto) Cancelled Neut % (Auto) Cancelled Lymph % (Auto) Cancelled [place] % (Auto) Cancelled Eos % (Auto) Cancelled Baso % (Auto) Cancelled Lymph # (Auto) Cancelled [place] # (Auto) Cancelled Eos # (Auto) Cancelled Baso # (Auto) Cancelled Abs Immat Gran (auto) Cancelled Absolute Neuts (auto) Cancelled Absolute Nucleated RBC 0.000 Nucleated RBC % (auto) 0.0 Neutrophils % (Manual) 72 Band Neutrophils % 18 H Lymphocytes % (Manual) 6 L Monocytes % (Manual) 3 Myelocytes % 1 Abs Neuts (Manual) 28.3 H Lymphocytes # (Manual) 1.9 Monocytes # (Manual) 0.9 Myelocytes # 0.3 Toxic Vacuolation PRESENT Platelet Estimate SLIGHTLY DECREASED Plt Morphology Comment NORMAL RBC Morphology NOTED Slava Cells 2+ (3-5) Acanthocytes (Spur) 2+ (3-5) Schistocytes 2+ (3-5) VBG pH 7.50 H VBG pCO2 20 VBG pO2 183 VBG HCO3 16 L VBG O2 Saturation 100.0 VBG Base Excess -4.8 Sodium 143 Potassium 3.5 Chloride 117 H Carbon Dioxide 15 L Anion Gap 15 BUN 36 H Creatinine 1.28 Estim Creat Clear Calc 50.9 Estimated GFR 56 Random Glucose 144 H Lactic Acid Lactic Acid F/U @ 2Hr Lactic Acid F/U @ 4Hr Calcium 8.1 L Phosphorus 3.1 Magnesium 1.7 Albumin 2.8 L Microbiology Microbiology Results: Microbiology 04/19/24 09:22 Blood - Venous Blood Culture - Preliminary Gram negative thuan 04/19/24 09:21 Blood - Venous Blood Culture - Preliminary Gram negative thuan 04/19/24 12:38 Urine Other - Suprapubic Urine Culture - Preliminary Gram negative thuan Progress Note: A&P Assessment and plan (1) Gram-negative bacteremia: Status: Acute (2) Septic shock: Status: Acute (3) Acute UTI: Status: Acute (4) Kidney calculi: Status: Acute (5) Neurogenic urinary bladder disorder: Status: Acute Plan Assessment: 68-year-old gentleman admitted with Gram-negative bacteremia with septic shock secondary to source requiring pressor support. Plan: Neuro: No acute issues. Underlying CVA with residual right sided paresis and neurogenic bladder. Cardiac: Septic shock, continue to titrte off pressor support as tolerated. Pulmonary: No acute issues. Renal: Hematuria, s/p catheter repositioning. Neurogenic bladder. Urology service care appreciated. Known b/l hydronephrosis and calculi s/p right nephrostomy and suprapubic catheter Endo: No acute issues. GI: No acute issues. ID: Gram-negative bacteremia with septic shock secondary to source. Prior history of multiple resistant organisms. Continue Cefepime and Vancomycin. Blood / urine cultures are pending. Heme/Onc: No acute issues. Psych: No acute issues. Miscellaneous: No acute issues. Prophylaxis: Heparin Diet: NPO Critical care time spent: 45 minutes Quality Stroke Does the patient have a stroke diagnosis?: No VTE Prior VTE?: No VTE Risk Level:: Medical - moderate - high VTE Device Contraindication: Treatment Not Indicated VTE Drug Contraindication: N/A - Med Ordered
[2024-04-20] MEDS: vancomycin HCL 1,250 MG in 0.9 % Sodium Chloride 250 ML 166.67 MG IV (16:10)
[2024-04-20] MEDS: Norepinephrine Bitartrate/D5W 8 MG/250 ML PLAST..BAG 3.89 MG IV (17:48)
--- NOTE | 2024-04-20 19:30 | PC.NURSE ---
assumed care of patient 0700 on 04/20/24. patient medications given per APR. Levophed titrated as tolerated and turned off towards end of shift (per APR). fecal management system placed for large liquid BM and open area to coccyx. patient course otherwise uncomplicated today. see shift assessment for head to toe. patient stable at time of hand off 19:00 on 04/20/24
[2024-04-20 20:29] LABS: Anion Gap 13 (12-20); Blood Urea Nitrogen 36 mg/dL (9-16); Calcium 8.3 mg/dL (8.4-10.2); Carbon Dioxide 22 mmol/L (22-29); Chloride 113 mmol/L (96-108); Creatinine Clr Calc Pharmacy 55.7; Estimated Glomerular Filt Rate > 60; Glucose Random 91 mg/dL (60-115); Magnesium 1.8 mg/dL (1.6-2.6); Phosphorus 2.8 mg/dL (2.7-4.5); Sodium 145 mmol/L (135-145)
[2024-04-20] MEDS: Norepinephrine Bitartrate/D5W 8 MG/250 ML PLAST..BAG 6.49 MG IV (21:03)
[2024-04-21] VITALS (23 sets, daily range): BP systolic 103–142; BP diastolic 58–77; PULSE 69–94; RESP 14–20; TEMP 36–36.9; O2SAT 95–99; BMI 25.1
[2024-04-21] MEDS: Potassium Chloride/H20 10 MEQ/100 ML PIGGYBACK 100 MEQ IV ×3 (00:20→02:15)
[2024-04-21] MEDS: Albumin Human 25 % 100 ML IV (03:18)
[2024-04-21 05:40] LABS: VBG Base Excess 1.8 mmol/L; VBG HCO3 22 mmol/L (22-26); VBG pCO2 23 mmHg; VBG pO2 84 mmHg
[2024-04-21 05:42] LABS: MANUAL DIFF FLAG NO
[2024-04-21 05:43] LABS: Venous Blood Gas Refer to POC result
[2024-04-21 05:46] LABS: Basophils Percent Auto 0.2 % (0-2); Eosinophils Percent Auto 0.2 % (0-4); Hematocrit 22.2 % (42.0-52.0); Hemoglobin 7.7 g/dl (14.0-18.0); Imm Gran Abs Auto 0.29 X10*3/uL (0.00-0.03); Imm Gran Pct Auto 2.2 % (0.0-0.4); Lymphocytes Absolute Auto 0.7 X10*3/uL (1.2-4.9); Lymphocytes Percent Auto 5.7 % (20-40); Mean Corpuscular HGB Conc 34.7 g/dl (31.0-36.0); Mean Corpuscular Hemoglobin 32.6 pg (27.0-33.0); Mean Corpuscular Volume 94.1 fL (80.0-98.0); Mean Platelet Volume 9.5 fL (9.4-12.4); Monocytes Absolute Auto 0.5 X10*3/uL (0.1-1.2); Monocytes Percent Auto 3.5 % (2-11); Neutrophils Absolute Auto 11.5 x10*3/uL (2.0-8.3); Neutrophils Percent Auto 88.2 % (45-73); Red Blood Count 2.36 X10*6/uL (4.60-5.80); Red Cell Distribution Width 14.8 % (11.0-16.0)
[2024-04-21 06:01] LABS: Albumin Level 3.6 g/dL (3.5-5.0); Anion Gap 12 (12-20); Blood Urea Nitrogen 36 mg/dL (9-16); Calcium 8.5 mg/dL (8.4-10.2); Carbon Dioxide 20 mmol/L (22-29); Chloride 115 mmol/L (96-108); Creatinine Clr Calc Pharmacy 59.2; Estimated Glomerular Filt Rate > 60; Glucose Random 84 mg/dL (60-115); Magnesium 1.7 mg/dL (1.6-2.6); Phosphorus 1.9 mg/dL (2.7-4.5); Potassium 3.3 mmol/L (3.3-5.1); Sodium 144 mmol/L (135-145)
[2024-04-21 06:04] LABS: Platelet Count 58 X10*3/uL (160-400)
[2024-04-21] MEDS: Pantoprazole Sodium 40 MG/10 ML VIAL IVPUSH ×2 (06:33→17:30)
[2024-04-21] MEDS: Potassium Phosphate/NS 15 MMOL/250 ML PLAST..BAG 62.5 MMOL IV ×2 (07:48→12:32)
[2024-04-21] MEDS: 0.9 % Sodium Chloride Flush 3 ML SYRINGE IVFLUSH (07:48)
[2024-04-21] MEDS: cefEPime HCl/D5W 2 GM/50 ML PIGGYBACK IV ×2 (10:38→21:41)
--- NOTE | 2024-04-21 11:17 | MHC.CLN ---
F/U PT WITH INCREASED NUTRITION RISK R/T PRESSURE INJURY PT IS DAY 2 NPO DISCUSSED AT ROUNDS WITH MD-PLAN FOR SWALLOW EVAL WHEN DIET TO ADVANCE, RECOMMEND ADDING SUPPLEMENT TO PROMOTE WOUND HEALING ENSURE TID WOULD PROVIDE 1050KCALS, 60G PROTEIN MONITORING FOR DIET ADVANCEMENT CONSULT RD IF PPN NEEDED
--- NOTE | 2024-04-21 11:31 | P.CDIM_ITS ---
PROVIDER RESPONSE TEXT: To clarify, the appropriate diagnosis supported by the clinical indicators: Other (explain): Likely associate with chronic catheter, though also can be associated wth chronic re nal calculi QUERY TEXT: PHYSICIAN'S DOCUMENTATION REQUEST Date of Query: 04/21/2024 10:27 AM EST Patient Name: Wyatt Castillo Admit Date: 04/19/2024 Dear Zoltan Escobar MD, A review of the medical record indicates additional documentation may be needed. Please review below and update the documentation accordingly. Documentation includes the conditions of suprapubic catheter and gram negative bacteremia with septic shock secondary to source . Clinical Indicators: Urine culture pending, blood culture pending IV Cefepime and IV Vancomycin Please clarify the relationship between these conditions: Yes, source is related to / associated with / due to suprapubic catheter No, source is not related to / associated with / due to suprapubic catheter Other (explain) Clinically unable to determine (explain) Thank you, Feli Hansen RN Use of terms such as suspected, likely, concern for, or probable (associated with a specific diagnosi s that is being evaluated, monitored, or treated as if it exists) are acceptable and can be coded in the inpatient se tting, when documented at the time of discharge. Please use your independent medical judgment in providing your response. THIS QUERY IS PART OF THE PERMANENT MEDICAL RECORD
--- NOTE | 2024-04-21 12:06 | P.PNCC_ITS ---
Subjective Subjective Date of Service: 04/21/24 Interval History: 68-year-old gentleman with underlying history of hypotension, hyperlipidemia, CVA with residual right-sided deficits, neurogenic bladder status post suprapubic catheter resident of snf facility transferred to emergency room to evaluate for hematuria and hypotension. Suprapubic catheter repositioned by ER provider. Urology service consulted. Patient with poor response to initial IV fluid resuscitation requiring initiation of pressor support and admission to intensive care unit for E coli bacteremia with septic shock secondary to source. No events overnight. On/off pressor support. Critical Care Time (minutes): 45 Physical Exam 2 Vital Signs: Vital Signs: Last Vital Signs Temp 96.8 F 04/21/24 08:00 Pulse 89 04/21/24 11:00 Resp 14 04/21/24 11:00 BP 132/71 04/21/24 11:00 Pulse Ox 98 04/21/24 11:00 O2 Del Method Room Air 04/21/24 11:00 BMI result Body Mass Index 25.1 Const: General: no acute distress, alert and awake Eyes: Sclerae: sclerae normal EOM: EOMs intact bilaterally Neck: Neck: Yes no lymphadenopathy, Yes trachea midline and Yes supple Resp: Effort & Inspection: normal respiratory effort and no respiratory distress Auscultation: clear to auscultation bilaterally Cardio: Rate: regular rate Rhythm: regular rhythm Heart sounds: no gallops, no murmurs and no rubs GI: Palpation (GI): Soft to palpation and Other GI palpation findings present ( Nontender) Auscultation: normal bowel sounds Extrem: General: Yes no pedal edema, No clubbing and No cyanosis Objective Data Labs 04/21/24 05:34 04/21/24 05:34 Labs: Laboratory Results - last 24 hr 04/20/24 04/21/24 04/21/24 20:08 05:34 05:36 WBC 13.0 H RBC 2.36 L D Hgb 7.7 L D Hct 22.2 L D MCV 94.1 MCH 32.6 MCHC 34.7 RDW 14.8 Plt Count 58 L D MPV 9.5 Immature Gran % (Auto) 2.2 H Neut % (Auto) 88.2 H Lymph % (Auto) 5.7 L [place] % (Auto) 3.5 Eos % (Auto) 0.2 Baso % (Auto) 0.2 Lymph # (Auto) 0.7 L [place] # (Auto) 0.5 Eos # (Auto) 0.0 Baso # (Auto) 0.0 Abs Immat Gran (auto) 0.29 H Absolute Neuts (auto) 11.5 H Absolute Nucleated RBC 0.000 Nucleated RBC % (auto) 0.0 VBG pH 7.60 H* VBG pCO2 23 VBG pO2 84 VBG HCO3 22 VBG O2 Saturation 99.0 VBG Base Excess 1.8 Sodium 145 144 Potassium 3.0 L 3.3 Chloride 113 H 115 H Carbon Dioxide 22 20 L Anion Gap 13 12 BUN 36 H 36 H Creatinine 1.17 1.10 Estim Creat Clear Calc 55.7 59.2 Estimated GFR > 60 > 60 Random Glucose 91 84 Calcium 8.3 L 8.5 Phosphorus 2.8 1.9 L Magnesium 1.8 1.7 Albumin 3.6 Microbiology Microbiology Results: Microbiology 04/19/24 09:22 Blood - Venous Blood Culture - Preliminary Gram negative thuan 04/19/24 09:21 Blood - Venous Blood Culture - Preliminary Gram negative thuan 04/19/24 12:38 Urine Other - Suprapubic Urine Culture - Preliminary Escherichia coli Progress Note: A&P Assessment and plan (1) E coli bacteremia: Status: Acute (2) UTI due to extended-spectrum beta lactamase (ESBL) producing Escherichia coli: Status: Acute (3) Septic shock: Status: Acute Plan Assessment: 68-year-old gentleman admitted with ESBL E coli bacteremia with septic shock secondary to source requiring pressor support. Plan: Neuro: No acute issues. Underlying CVA with residual right sided paresis and neurogenic bladder. Cardiac: Septic shock, continue to titrte off pressor support as tolerated. Pulmonary: No acute issues. Renal: Hematuria, s/p catheter repositioning, resolved. Neurogenic bladder. Urology service care appreciated. Known b/l hydronephrosis and calculi s/p right nephrostomy and suprapubic catheter. Endo: No acute issues. GI: No acute issues. ID: ESBL E coli bacteremia with septic shock secondary to source. Prior history of multiple resistant organisms. Continue Cefepime. Heme/Onc: No acute issues. Psych: No acute issues. Miscellaneous: No acute issues. Prophylaxis: Heparin Diet: Pending swallow evaluation Critical care time spent: 45 minutes Quality Stroke Does the patient have a stroke diagnosis?: No VTE Prior VTE?: No VTE Risk Level:: Medical - moderate - high VTE Device Contraindication: Treatment Not Indicated VTE Drug Contraindication: N/A - Med Ordered
[2024-04-21 13:42] LABS: MANUAL DIFF FLAG NO
[2024-04-21 13:46] LABS: Basophils Percent Auto 0.2 % (0-2); Eosinophils Percent Auto 0.2 % (0-4); Hematocrit 25.2 % (42.0-52.0); Hemoglobin 8.7 g/dl (14.0-18.0); Imm Gran Abs Auto 0.34 X10*3/uL (0.00-0.03); Imm Gran Pct Auto 3.1 % (0.0-0.4); Lymphocytes Absolute Auto 0.8 X10*3/uL (1.2-4.9); Lymphocytes Percent Auto 6.9 % (20-40); Mean Corpuscular HGB Conc 34.5 g/dl (31.0-36.0); Mean Corpuscular Hemoglobin 33.2 pg (27.0-33.0); Mean Corpuscular Volume 96.2 fL (80.0-98.0); Monocytes Absolute Auto 0.4 X10*3/uL (0.1-1.2); Monocytes Percent Auto 3.5 % (2-11); Neutrophils Absolute Auto 9.3 x10*3/uL (2.0-8.3); Neutrophils Percent Auto 86.1 % (45-73); Red Blood Count 2.62 X10*6/uL (4.60-5.80); Red Cell Distribution Width 14.8 % (11.0-16.0); White Blood Count 10.8 X10*3/uL (4.8-10.8)
[2024-04-21 13:49] LABS: Platelet Count 53 X10*3/uL (160-400)
[2024-04-21 13:56] LABS: Vancomycin Random 21.5 mcg/mL (15-20)
--- NOTE | 2024-04-21 15:13 | MHC.CM.PN ---
PT REMAINS IN ICU, ON/OFF PRESSOR SUPPORT. [facility] UPDATED [facility]IA [facility].
--- NOTE | 2024-04-21 15:31 | MHC.SL.SWA ---
Speech Pathologist Impression:Risk of Aspiration, Moderate Oropharyngeal Dysphagia Risk of Aspiration Due to: Neurological Condition Reduced Cognition Dysphasia Diet Status: No Change Liquid Consistency and Strategies for Safe Swallow: Liquid Intake Recommendation: Honey Thick Liquid Intake Strategies: Small Sips No Straws Solid Food Consistency: Dietary Recommendations: Pureed (NDD1) Additional Modifications to Solid Foods: Patient presents with moderate oropharyngeal phase dysphagia, characterized by slow and disorganized oral phase and delayed pharyngeal phase. Patient presents with repetitive tongue pumping, partial laryngeal elevation, and mildly delayed pharyngeal swallow trigger. Complete oral clearance noted on liquid and solid consistencies and no overt s/s of aspiration with PO intake. Recommend continue prior END MATCHER recommendation of PUREED (NDD1) solids and HONEY THICK liquids, pills to be CRUSHED in PUREE. Oral Medication Intake: Crushed with Puree Please contact the pharmacy regarding appropriate crushable or liquid drug formulations that are available whenever modified delivery is recommended. Compensatory Strategies and Precautions to be Taken for Safe Swallow: Sitting Upright (90 deg) Double Swallow No Straw Small Bites and Sips Rate of Ingestion Change Oral Check Supervision While Eating and Drinking for Safe Swallow: Total Assistance (1:1) Foods to Avoid: Mixed consistencies Swallowing Recommended Treatments: Compens. Strategy Educat. Recommendation for Speech: Inpatient Speech Therapy Speech Therapy through Rehab Facility Comment: Patient is LTC resident at [facility], hx of dementia and CVA with residual right sided deficits Frequency/Duration: M-F while inpatient Date Range for Service Req: Timeline to reassess: PRN [employer] Spanish Teacher Clinican/Clinical Fellow: No Supervisory Statement: I have reviewed and agree with the student/clinical fellow's documentation: N/A Speech Language Pathologist: Danielle Avery M.A., CCC-END MATCHER
--- NOTE | 2024-04-21 16:06 | PM.EVENT ---
Event Note Date of Service: 04/21/24 Event Note: This is a 68[facility] M [facility], nonverbal with history of vascular dementia, CVA with R-sided hemiparesis, neurogenic bladder with chronic SPT, stage 4 sacral decubitus ulcer, hx C. difficile colitis, seizure disorder, HTN, HLD, reportedly no urinary output for 8 days. Pt presented to ED with abdominal pain. ED physician changed SPT with good urine return. patient with poor response to IVF and required admission to the ICU for pressor support. CT showed Right perinephic stranding, Right staghorn calculus, ureteral stones mild hydro- chronic, similar findings in september, renal fxn stable, repeat lactic acid normal. Ureteral stent was considered, however due to the position of staghorn calculus will likely limit adequate placement. Will continue to follow, and mange conservatively for now. CT - indwelling right PCN, right staghorn calculus, right distal ureteric stones. Have been the same since September. Septic shock due to ESBL e.coli UTI and GNR bactermia weaned off pressors improving on cefepime leukocytosis resolved final results of blood cultures pending ID consult pending seen by urology: CT showed Right perinephic stranding, Right staghorn calculus, ureteral stones mild hydro- chronic, similar findings in september, renal fxn stable, repeat lactic acid normal. Ureteral stent was considered, however due to the position of staghorn calculus will likely limit adequate placement. Will continue to follow, and mange conservatively for now. CT - indwelling right PCN, right staghorn calculus, right distal ureteric stones. Have been the same since September. h/o cva with residual right side paresis and neurogenic bladder Seen by speech therapy recommend NDD 1 diet with honey thick liquids, pills crushed in puree aspiration precautions h/o seizure d/o resume keppra acute on chronic nrmocytic anemia no evidence of acute blood loss improved today without intervention ?component of dilution xarelto on hold stool occult pending follow CBC thrombocytopenia acute on chronic likely due to sepsis PAF xarelto on hold for anemia/thrombocytopenia hypokalemia improved with replacement stage 4 pressure injury of sacrum/coccyx. poa continue local wound care HTN losartan on hold due to septic shock. if bp remains stable can resume most home medications have been on hold dvt ppx - heparin d/c presumably due to anemia Time Spent With Patient Time: Total time managing care of this patient today ____ minutes.
--- NOTE | 2024-04-21 17:20 | HO.WOUND ---
Wound Consult: Initial 68yr old male admitted to [facility] on?04/19/24- See progress notes and H&P for detailed history. Wound consult placed for Coccyx wound POA. Pt has been seen in the past by this automobile and property underwriter. Sacrum / Coccyx Etiology: ??Stage 4 Pressure Injury Present on Admission Wound Bed: clean moist red pink tissue Edges: ?epibole Bonny wound: maceration noted - Scar tissue noted Goals of Treatment: ? Moist wound healing - Moisture management with Alginate and off load pressure Bilateral ischium are noted for scar tissue - protective foam to be applied and Q2hr turns with pillows. Recommendations: 1. Turn and Reposition every 2 hours and as needed for patient comfort.? Use pillows or wedges to support off loading positions. 2. Off Load all bony prominences with use of pillows and heel boots if needed.? Apply Preventative foams where needed. ? 3. Monitor for incontinence and moisture control, use barrier creams when needed for prevention and treatment. 4. Provide adequate and supplemental nutrition. 5. Order or Continue low air loss mattress. 6. Sacrum / Coccyx - Cleanse and irrigate with NS, Pat dry.? Apply skin prep to periwound, cover wound bed with Alginate (Durafiber AG).? Cover with Foam dressing.? Change every 3 days and PRN. 7. Bilateral ischium Apply skin prep - protective foam to be applied and Q2hr turns with pillows. Recommend follow up out patient Wound Clinic at [address] [place] [id number] and to call for an appointment at time of discharge. [phone].?
--- NOTE | 2024-04-21 19:38 | PC.NURSE ---
N- patient taken off Nimbex today, continues on Propofol, Versed and Fentanyl, Please see MAR. Patient opens eyes to verbal stimuli and nods appropriately.? CV- patient off pressors, BP stable and no edema noted.? GI- No BM noted, NPO no OG tube in place for now. - Walker in place draining clear yellow urine. Wounds to forearms changed by wound nurse, AG applied, DSD in place Patients POC decreased this evening to 55, 1 amp D50 given and increased to 130?s
--- NOTE | 2024-04-21 19:39 | PC.NURSE ---
N- patient alert, responds at times with nods or yes or no, unable to follow commands and refuses care at times. CV- +1 to left lower extremity noted and +2 to right lower extremity, patient titrated off Levophed this shift and BP stable, see MAR for titrate info.? GI- swallow eval done, see speech note. Rectal tube in place, draining minimal dark liquid stool, insufficient to send for occult stool.? - suprabubic catheter in place and draining dark yellow urine, right nephrostomy draining yellow urine. Placed on contact precautions for ESBL in urine.? [place] foam to coccyx changed this morning due to being soiled, turn and repo as tolerated every 2hours to maintain skin integrity and prevent further pressure injury.??
[2024-04-21] MEDS: levETIRAcetam Oral Soln 500 MG/5 ML 250 MG PO (21:41)
[2024-04-22] VITALS: BP 130/72; PULSE 77; RESP 20; TEMP 36.8; O2SAT 96
[2024-04-22 04:00] VITALS: BP 134/82; PULSE 74; RESP 20; TEMP 36.7; O2SAT 97
[2024-04-22] MEDS: Pantoprazole Sodium 40 MG/10 ML VIAL IVPUSH ×2 (05:58→16:53)
[2024-04-22 06:00] VITALS: BMI 24.1
[2024-04-22 06:29] LABS: OBS Int Ctl Valid YES; OBS1 NEGATIVE (NEGATIVE)
[2024-04-22 06:54] LABS: MANUAL DIFF FLAG NO
[2024-04-22 07:09] LABS: Basophils Percent Auto 0.5 % (0-2); Eosinophils Absolute Auto 0.1 X10*3/uL (0.0-0.4); Hematocrit 28.3 % (42.0-52.0); Hemoglobin 9.4 g/dl (14.0-18.0); Imm Gran Abs Auto 0.04 X10*3/uL (0.00-0.03); Imm Gran Pct Auto 0.5 % (0.0-0.4); Lymphocytes Absolute Auto 0.7 X10*3/uL (1.2-4.9); Lymphocytes Percent Auto 9.1 % (20-40); Mean Corpuscular HGB Conc 33.2 g/dl (31.0-36.0); Mean Corpuscular Hemoglobin 31.8 pg (27.0-33.0); Mean Corpuscular Volume 95.6 fL (80.0-98.0); Mean Platelet Volume 10.1 fL (9.4-12.4); Monocytes Absolute Auto 0.3 X10*3/uL (0.1-1.2); Monocytes Percent Auto 4.1 % (2-11); Neutrophils Absolute Auto 6.8 x10*3/uL (2.0-8.3); Neutrophils Percent Auto 84.8 % (45-73); Red Blood Count 2.96 X10*6/uL (4.60-5.80); Red Cell Distribution Width 14.8 % (11.0-16.0)
[2024-04-22 07:10] LABS: Platelet Count 53 X10*3/uL (160-400)
[2024-04-22 07:26] LABS: Albumin Level 3.3 g/dL (3.5-5.0); Anion Gap 13 (12-20); Blood Urea Nitrogen 39 mg/dL (9-16); Calcium 8.8 mg/dL (8.4-10.2); Carbon Dioxide 19 mmol/L (22-29); Chloride 119 mmol/L (96-108); Creatinine Clr Calc Pharmacy 59.7; Estimated Glomerular Filt Rate > 60; Glucose Random 71 mg/dL (60-115); Potassium 3.4 mmol/L (3.3-5.1); Sodium 148 mmol/L (135-145)
[2024-04-22 08:00] VITALS: BP 124/85; PULSE 82; RESP 16; TEMP 36.6; O2SAT 98
--- NOTE | 2024-04-22 09:54 | P.PNIM_ITS ---
Subjective Subjective Date of Service: 04/22/24 Review of Systems Follow up septic shock mostly nonverbal Physical Exam 2 Vital Signs: Vital Signs: Last Vital Signs Temp 97.9 F 04/22/24 08:00 Pulse 82 04/22/24 08:00 Resp 16 04/22/24 08:00 BP 124/85 04/22/24 08:00 Pulse Ox 98 04/22/24 08:00 O2 Del Method Room Air 04/22/24 08:00 BMI result Body Mass Index 24.1 Appearing in no acute distress, mostly non verbal lung sounds are clear to auscultation heart regular rate rhythm, clear S1, S2 positive bowel sounds, abdomen is soft, nontender neuro patient is alert coccyx wound stage 4 Objective Data Active Medications Cefepime HCl (Maxipime) 2 gm in 50 mls @ 100 mls/hr IV Q12H [facility] Last Infusion: 04/21/24 22:11 Dose: Infused Documented By: DANNA Levetiracetam (Levetiracetam Oral Soln 500 Mg/5 Ml) 250 mg PO BID [facility] Last Admin: 04/21/24 21:41 Dose: 250 mg Documented By: DANNA Pantoprazole Sodium (Pantoprazole Sodium 40 Mg/10 Ml Vial) 40 mg IVPUSH BID@0630,1630 [facility] Last Admin: 04/22/24 05:58 Dose: 40 mg Documented By: DANNA Sodium Chloride (0.9 % Sodium Chloride Flush 3 Ml Syringe) 3 ml IVFLUSH QSHIFT [facility] Last Admin: 04/22/24 00:00 Dose: 3 ml Documented By: DANNA Labs 04/22/24 06:47 04/22/24 06:47 Labs: Laboratory Results - last 24 hr 04/21/24 04/22/24 04/22/24 13:36 06:00 06:47 MCV 96.2 95.6 MCH 33.2 H 31.8 MCHC 34.5 33.2 RDW 14.8 14.8 Plt Count 53 L 53 L MPV 10.0 10.1 Immature Gran % (Auto) 3.1 H 0.5 H Neut % (Auto) 86.1 H 84.8 H Lymph % (Auto) 6.9 L 9.1 L [place] % (Auto) 3.5 4.1 Eos % (Auto) 0.2 1.0 Baso % (Auto) 0.2 0.5 Lymph # (Auto) 0.8 L 0.7 L [place] # (Auto) 0.4 0.3 Eos # (Auto) 0.0 0.1 Baso # (Auto) 0.0 0.0 Abs Immat Gran (auto) 0.34 H 0.04 H Absolute Neuts (auto) 9.3 H 6.8 Absolute Nucleated RBC 0.000 0.000 Nucleated RBC % (auto) 0.0 0.0 Anion Gap 13 Estim Creat Clear Calc 59.7 Estimated GFR > 60 Random Glucose 71 Calcium 8.8 Phosphorus 3.0 Magnesium 2.0 Albumin 3.3 L Stool Occult Blood NEGATIVE Random Vancomycin 21.5 H Microbiology Microbiology Results: Microbiology 04/19/24 09:22 Blood Culture - Preliminary Blood - Venous Gram negative thuan 04/19/24 09:21 Blood Culture - Final Blood - Venous Escherichia coli 04/19/24 12:38 Urine Culture - Final Urine Other - Suprapubic Escherichia coli Assessment and Plan (1) HTN (hypertension): Status: Acute (2) Sepsis: Status: Acute Plan 68yo M LTC resident of [facility], nonverbal with history of vascular dementia, CVA with R-sided hemiparesis, neurogenic bladder with chronic SPT, stage 4 sacral decubitus ulcer, hx C. difficile colitis, seizure disorder, HTN, HLD, reportedly no urinary output for 8 days prior to admission. Pt presented to ED with abdominal pain. patient with poor response to IVF and required admission to the ICU for pressor support. Septic shock due to ESBL e.coli UTI and ecoli bactermia weaned off pressors leukocytosis resolved final results of blood cultures pending meropenem ID consult pending CT showed Right perinephic stranding Right staghorn calculus, ureteral stones mild hydro- chronic, similar findings in september renal fxn stable, repeat lactic acid normal. Ureteral stent was considered, however due to the position of staghorn calculus will likely limit adequate placement. manage conservatively for now. indwelling right PCN h/o cva with residual right side paresis and neurogenic bladder Seen by speech therapy recommend NDD 1 diet with honey thick liquids, pills crushed in puree aspiration precautions h/o seizure d/o resume keppra acute on chronic normocytic anemia no evidence of acute blood loss improved today without intervention ?component of dilution xarelto on hold stool occult neg follow CBC thrombocytopenia acute on chronic likely due to sepsis PAF xarelto on hold for anemia/thrombocytopenia hypokalemia improved with replacement stage 4 pressure injury of sacrum/coccyx. poa continue local wound care HTN losartan on hold due to septic shock. if bp remains stable can resume dvt ppx - heparin d/c presumably due to anemia Quality Stroke Does the patient have a stroke diagnosis?: No VTE Prior VTE?: No VTE Risk Level:: Medical - moderate - high VTE Device Contraindication: Treatment Not Indicated VTE Drug Contraindication: N/A - Med Ordered
[2024-04-22] MEDS: levETIRAcetam Oral Soln 500 MG/5 ML 250 MG PO ×2 (09:55→23:25)
[2024-04-22] MEDS: cefEPime HCl/D5W 2 GM/50 ML PIGGYBACK IV (09:56)
[2024-04-22] MEDS: 0.9 % Sodium Chloride Flush 3 ML SYRINGE IVFLUSH ×3 (10:10→16:53)
[2024-04-22 11:56] VITALS: BP 148/81; PULSE 97; RESP 18; TEMP 36.9; O2SAT 97
[2024-04-22] MEDS: Meropenem 1 GM VIAL IVPUSH ×2 (12:28→23:20)
[2024-04-22 15:50] VITALS: BP 148/87; PULSE 90; RESP 16; TEMP 36.8; O2SAT 98
[2024-04-22 20:00] VITALS: BP 123/78; PULSE 75; RESP 20; TEMP 36.6; O2SAT 97
[2024-04-22] MEDS: Gabapentin 300 MG CAPSULE PO (23:26)
[2024-04-23] VITALS: BP 114/71; PULSE 77; RESP 16; TEMP 36.2; O2SAT 98
[2024-04-23 04:00] VITALS: BP 131/76; PULSE 69; RESP 16; TEMP 36.8; O2SAT 98
[2024-04-23] MEDS: Meropenem 1 GM VIAL IVPUSH ×3 (06:41→20:50)
[2024-04-23 06:49] LABS: Creatinine Clr Calc Pharmacy 60.9; Estimated Glomerular Filt Rate > 60
[2024-04-23] MEDS: Pantoprazole Sodium 40 MG/10 ML VIAL IVPUSH ×2 (06:49→17:00)
[2024-04-23 07:56] VITALS: BP 127/90; PULSE 75; RESP 16; TEMP 36.1; O2SAT 95
--- NOTE | 2024-04-23 08:44 | HO.PM.IMPN ---
Subjective Subjective Date of Service: 04/23/24 Review of Systems Follow up septic shock mostly nonverbal Physical Exam Vital Signs: Vital Signs: Last Vital Signs Temp 97.0 F 04/23/24 07:56 Pulse 75 04/23/24 07:56 Resp 16 04/23/24 07:56 BP 127/90 H 04/23/24 07:56 Pulse Ox 95 04/23/24 07:56 O2 Del Method Room Air 04/23/24 07:56 BMI result Body Mass Index 24.1 Appearing in no acute distress, nonverbal lung sounds are clear to auscultation heart regular rate rhythm, clear S1, S2 positive bowel sounds, abdomen is soft, nontender neuro patient is alert x3, no focal deficits Objective Data Active Medications Atorvastatin Calcium (Atorvastatin Calcium 80 Mg Tablet) 80 mg PO DAILY [facility] Ferrous Sulfate (Ferrous Sulfate 324 Mg Tablet.) 324 mg PO DAILY [facility] Gabapentin (Gabapentin 300 Mg Capsule) 300 mg PO BEDTIME [facility] Last Admin: 04/22/24 23:26 Dose: 300 mg Documented By: DANNA Levetiracetam (Levetiracetam Oral Soln 500 Mg/5 Ml) 250 mg PO BID [facility] Last Admin: 04/22/24 23:25 Dose: 250 mg Documented By: DANNA Meropenem (Meropenem 1 Gm Vial) 1 gm IVPUSH Q8H [facility] Last Admin: 04/23/24 06:41 Dose: 1 gm Documented By: DANNA Pantoprazole Sodium (Pantoprazole Sodium 40 Mg/10 Ml Vial) 40 mg IVPUSH BID@0630,1630 [facility] Last Admin: 04/23/24 06:49 Dose: 40 mg Documented By: DANNA Sodium Chloride (0.9 % Sodium Chloride Flush 3 Ml Syringe) 3 ml IVFLUSH QSHIFT [facility] Last Admin: 04/23/24 00:00 Dose: 3 ml Documented By: DANNA Labs 04/22/24 06:47 04/23/24 06:14 Labs: Laboratory Results - last 24 hr 04/23/24 06:14 Hold Purple Top SEE NOTE Estim Creat Clear Calc 60.9 Estimated GFR > 60 Microbiology Microbiology Results: Microbiology 04/19/24 09:22 Blood Culture - Preliminary Blood - Venous Gram negative thuan 04/19/24 09:21 Blood Culture - Final Blood - Venous Escherichia coli 04/19/24 12:38 Urine Culture - Final Urine Other - Suprapubic Escherichia coli Assessment and Plan (1) HTN (hypertension): Status: Acute (2) Sepsis: Status: Acute Plan 68yo M LTC resident of [facility], nonverbal with history of vascular dementia, CVA with R-sided hemiparesis, neurogenic bladder with chronic SPT, stage 4 sacral decubitus ulcer, hx C. difficile colitis, seizure disorder, HTN, HLD, reportedly no urinary output for 8 days prior to admission. Pt presented to ED with abdominal pain. patient with poor response to IVF and required admission to the ICU for pressor support. Septic shock due to ESBL e.coli UTI and ecoli bactermia weaned off pressors leukocytosis resolved final results of blood cultures pending meropenem ID consult>14 days abx midline ordered CT showed Right perinephic stranding Right staghorn calculus, ureteral stones mild hydro- chronic, similar findings in september renal fxn stable, repeat lactic acid normal. Ureteral stent was considered, however due to the position of staghorn calculus will likely limit adequate placement. manage conservatively for now. indwelling right PCN h/o cva with residual right side paresis and neurogenic bladder Seen by speech therapy recommend NDD 1 diet with honey thick liquids, pills crushed in puree aspiration precautions h/o seizure d/o resume keppra acute on chronic normocytic anemia no evidence of acute blood loss improved today without intervention ?component of dilution xarelto on hold stool occult neg follow CBC thrombocytopenia acute on chronic likely due to sepsis PAF xarelto on hold for anemia/thrombocytopenia hypokalemia improved with replacement stage 4 pressure injury of sacrum/coccyx. poa continue local wound care HTN losartan on hold due to septic shock. if bp remains stable can resume dvt ppx - heparin d/c presumably due to anemia Quality Stroke Does the patient have a stroke diagnosis?: No VTE Prior VTE?: No VTE Risk Level:: Medical - moderate - high VTE Device Contraindication: Treatment Not Indicated VTE Drug Contraindication: N/A - Med Ordered
[2024-04-23] MEDS: levETIRAcetam Oral Soln 500 MG/5 ML 250 MG PO ×2 (11:18→20:50)
[2024-04-23] MEDS: Atorvastatin Calcium 80 MG TABLET PO (11:19)
[2024-04-23] MEDS: Ferrous Sulfate 324 MG TABLET.DR PO (11:19)
[2024-04-23 11:22] VITALS: BP 138/82; PULSE 84; RESP 16; TEMP 36.3; O2SAT 96
[2024-04-23] MEDS: 0.9 % Sodium Chloride Flush 3 ML SYRINGE IVFLUSH ×3 (11:42→20:50)
[2024-04-23 15:32] VITALS: BP 118/61; PULSE 73; RESP 16; TEMP 36.2; O2SAT 98
[2024-04-23 20:00] VITALS: BP 131/73; PULSE 75; RESP 16; TEMP 36.3; O2SAT 98
[2024-04-23] MEDS: Gabapentin 300 MG CAPSULE PO (20:50)
[2024-04-24] VITALS (7 sets, daily range): BP systolic 145–164; BP diastolic 77–89; PULSE 64–98; RESP 16–20; TEMP 36.1–36.6; O2SAT 96–99; BMI 24.0
[2024-04-24] MEDS: Meropenem 1 GM VIAL IVPUSH ×3 (04:49→22:33)
[2024-04-24] MEDS: Pantoprazole Sodium 40 MG/10 ML VIAL IVPUSH (04:49)
--- NOTE | 2024-04-24 10:47 | MHC.CM.PN ---
Addendum entered by Jeimy Jimenez 04/24/24 11:43: [facility] auth # is [id number]. Addendum entered by Jeimy Jimenez 04/24/24 11:10: CM spoke with Son/HCP/Al @ [phone] and addressed IMM with him (original will be mailed certified letter to Al and a copy has been placed on the chart. Patient has Vascular Dementia; Son/HCP is aware of and in agreement with the dc plan. Original Note: Per ASSEMBLER [employer], Patient has been medically cleared for dc back to LTC @ [facility] today aty 4 PM, via [facility].
[2024-04-24] MEDS: levETIRAcetam Oral Soln 500 MG/5 ML 250 MG PO ×2 (11:22→21:57)
[2024-04-24] MEDS: 0.9 % Sodium Chloride Flush 3 ML SYRINGE IVFLUSH ×2 (11:23→22:33)
[2024-04-24] MEDS: Atorvastatin Calcium 80 MG TABLET PO (11:23)
[2024-04-24] MEDS: Ferrous Sulfate 324 MG TABLET.DR PO (11:23)
--- NOTE | 2024-04-24 12:02 | PM.DS ---
DS: Providers Provider Date of Service: 05/03/24 Date of admission: 04/19/24 12:55 Date of discharge: 05/03/24 Primary care physician: Lorraine Wiley MD Consults: 04/19/24 11:30 Consult to Urology Stat Consulting Provider: [facility] Reason for consultation: HEMATURIA 04/19/24 15:46 Consult to Wound Care Routine Reason for consultation: coccyx 04/21/24 16:07 Consult to Infectious Diseases Routine Consulting Provider: [facility] Reason for consultation: septic shock due to complicated uti and bacteremia due to resistent e.coli Has provider been notified: No DS: Diagnosis Discharge Diagnosis (1) HTN (hypertension): Status: Acute (2) Sepsis: Status: Acute DS: Summary Hospital Course Hospital Course: 68-year-old gentleman with underlying history of hypotension, hyperlipidemia, CVA with residual right-sided deficits, neurogenic bladder status post suprapubic catheter resident of intermediate facility transferred to emergency room to evaluate for hematuria and hypotension. Suprapubic catheter repositioned by ER provider. Urology service consulted. Patient with poor response to initial IV fluid resuscitation requiring initiation of pressor support and admission to intensive care unit. 68-year-old man treated for septic shock secondary to ESBL E coli UTI and E coli bacteremia. Treated in the ICU initially with IV pressors due to hypotension. Weaned off pressors, treated with IV cefepime initially then switch to meropenem. ID recommended total of 14 days of antibiotics. Patient at this time is at his baseline and blood pressure has stabilized. Reed catheter placed due to difficulty placing midline catheter with patient's anatomy and patient completed antibiotics inpatient due to [facility] facility declining to take patient due to Reed cathether. CT showed Right perinephic stranding Right staghorn calculus, ureteral stones mild hydro- chronic, similar findings in september Ureteral stent was considered, however due to the position of staghorn calculus will likely limit adequate placement. manage conservatively indwelling right PCN h/o cva with residual right side paresis and neurogenic bladder Seen by speech therapy recommend NDD 1 diet with honey thick liquids, pills crushed in puree aspiration precautions h/o seizure d/o on keppra acute on chronic normocytic anemia no evidence of acute blood loss Xarelto stool occult neg thrombocytopenia acute on chronic likely due to sepsis PAF xarelto hypokalemia improved with replacement stage 4 pressure injury of sacrum/coccyx. poa. continue local wound care with small blister-like area to right posterior thigh HTN. losartan Time Attestation Discharge Coordination Time (in mins): 40 Quality: Safe Use of Opioids Does Pt have an Active Cancer Diagnosis on the Problem List?: No Quality: Stroke Does the patient have a stroke diagnosis?: No Physical Exam Vital Signs: Vital Signs: Last Vital Signs Temp 97.4 F 04/24/24 11:53 Pulse 64 04/24/24 11:53 Resp 18 04/24/24 11:53 BP 161/85 H 04/24/24 11:53 Pulse Ox 98 04/24/24 11:53 O2 Del Method Room Air 04/24/24 11:53 BMI result Body Mass Index 24.0 Appearing in no acute distress head is normocephalic atraumatic eyes pupils are PERRLA sclera is anicteric mouth throat mucous membranes are intact and moist neck is supple no lymphadenopathy, no JVD noted lung sounds are clear to auscultation heart regular rate rhythm, clear S1, S2 positive bowel sounds, abdomen is soft, nontender neuro patient is alert, mostly nonverbal, bed-bound DS: Data Data Completed and Pending Completed studies during hospitalization [Text1]: Procedures Change Drainage Device in Bladder, External Approach (01/18/24) Drainage of Bladder with Drainage Device, Percutaneous Endoscopic Approach (06/23/21) Transfusion of Nonautologous Red Blood Cells into Peripheral Vein, Percutaneous Approach (12/23/22) Labs on day of discharge: Preliminary micro results at discharge 04/22/24 15:41 Blood Culture - Preliminary Blood - Venous No growth after 24 hours. 04/22/24 15:41 Blood Culture - Preliminary Blood - Venous No growth after 24 hours. Discharge Plan Discharge Anticipated Discharge Date/Time: 05/03/24 07:35 Patient Disposition: er [facility] Discharge Diagnosis: Septic shock ESBL E coli UTI E coli bacteremia Referrals: [facility] [Outside] - 1 Week Lorraine Wiley MD [Primary Care Provider] - 1 Week Discharge Medications: Continued (DME) wet wipes See Rx Instructions .ROUTE .MEDSUPPLY Qty: 5 3RF Rx Instructions: As directed levetiracetam 100 mg/mL solution 2.5 ml PO BID acetaminophen 325 mg Tablet 650 mg PO Q4H PRN (Reason: fever/pain) calcium carbonate-vitamin D3 600 mg-5 mcg (200 unit) Tablet 1 tab PO BID magnesium hydroxide [Milk of Magnesia] 400 mg/5 mL Suspension 30 ml PO DAILY PRN (Reason: No BM in 3 Days) bisacodyl 10 mg Suppository 10 mg CA DAILY PRN (Reason: If no BM in 8 hours after use of MoM) Fleet Enema 19-7 gram/118 mL Enema 118 ml CA DAILY PRN (Reason: If no BM in 8 hours after use of Bisacodyl) magnesium citrate Solution 150 ml PO DAILY PRN (Reason: No BM in 12 hrs) ferrous sulfate 325 mg (65 mg iron) Tablet 325 mg PO DAILY multivitamin Tablet 1 tab PO DAILY psyllium Powder 1 ea PO BEDTIME Rx Instructions: mix into at least 8 oz of water or juice before administering sodium hypochlorite 0.125 % Solution 1 appl TOPICAL BEDTIME Rx Instructions: APPLY TO COCCYX WOUND TOPICALLY EVERY FEED MIXER HELPER FOR WOUND CARE TO PRESSURE AREA, CLEANSE WITH DAKIN'S SOLUTION, PACK WITH HYDRAFERA BLUE, COVER WITH DRY CLEAN DRESSING DAILY. potassium chloride 20 mEq/15 mL liquid 30 meq PO BID oxycodone 5 mg Tablet 5 mg PO DAILY PRN (Reason: Pain/Wound Management) simethicone 80 mg Tablet,Chewable 80 mg PO Q6H PRN (Reason: Abdominal Distention) acetaminophen [Tylenol] 325 mg Tablet 650 mg PO BEDTIME acetic acid 0.25 % Solution 50 ml IRRIGATION TUTHSA@2100 Rx Instructions: for urinary catheter flush losartan 100 mg tablet 100 mg PO DAILY 90 Days Qty: 90 4RF gabapentin 300 mg capsule 300 mg PO BEDTIME 30 Days Qty: 30 0RF (DME) miscellaneous medical supply Misc See Rx Instructions .ROUTE .MEDSUPPLY Qty: 1 0RF Rx Instructions: RUE resting hand Splint/Sling As directed, Dx: G81.91, I67.89, duration 999 days/life time tamsulosin 0.4 mg capsule 0.4 mg PO BEDTIME 90 Days Qty: 90 1RF Xarelto 20 mg tablet 20 mg PO DAILY@1700 atorvastatin 80 mg tablet 80 mg PO DAILY ascorbic acid (vitamin C) 1,000 mg tablet 1,000 mg PO DAILY 90 Days Qty: 90 1RF methenamine hippurate 1 gram tablet 1 g PO daily 90 Days Qty: 90 1RF Discharge Orders: Discharge Order (Routine); Ordered 05/03/24 Ordered By: Taylor Ventura Diet: Advance to usual diet Activity on Discharge: As tolerated Stand Alone Forms: Patient Portal Discharge page Print Language: [place] Citizen Care Plan Goals: Transfer back to [facility] Health Concerns: Septic shock ESBL E coli UTI E coli bacteremia Plan of Treatment: Follow up with primary care provider as needed Take all medications as needed Assessment: See discharge summary
[2024-04-24 12:25] LABS: Creatinine Clr Calc Pharmacy 67.1; Estimated Glomerular Filt Rate > 60
--- NOTE | 2024-04-24 12:48 | HO.PM.IMPN ---
Subjective Subjective Date of Service: 04/24/24 Review of Systems Follow up septic shock mostly nonverbal Physical Exam Vital Signs: Vital Signs: Last Vital Signs Temp 97.4 F 04/24/24 11:53 Pulse 64 04/24/24 11:53 Resp 18 04/24/24 11:53 BP 161/85 H 04/24/24 11:53 Pulse Ox 98 04/24/24 11:53 O2 Del Method Room Air 04/24/24 11:53 BMI result Body Mass Index 24.0 Objective Data Active Medications Atorvastatin Calcium (Atorvastatin Calcium 80 Mg Tablet) 80 mg PO DAILY [facility] Last Admin: 04/24/24 11:23 Dose: 80 mg Documented By: ROSETTE Ferrous Sulfate (Ferrous Sulfate 324 Mg Tablet.) 324 mg PO DAILY [facility] Last Admin: 04/24/24 11:23 Dose: 324 mg Documented By: ROSETTE Gabapentin (Gabapentin 300 Mg Capsule) 300 mg PO BEDTIME [facility] Last Admin: 04/23/24 20:50 Dose: 300 mg Documented By: AL Levetiracetam (Levetiracetam Oral Soln 500 Mg/5 Ml) 250 mg PO BID [facility] Last Admin: 04/24/24 11:22 Dose: 250 mg Documented By: ROSETTE Meropenem (Meropenem 1 Gm Vial) 1 gm IVPUSH Q8H [facility] Last Admin: 04/24/24 04:49 Dose: 1 gm Documented By: AL Sodium Chloride (0.9 % Sodium Chloride Flush 3 Ml Syringe) 3 ml IVFLUSH QSHIFT [facility] Last Admin: 04/24/24 11:23 Dose: 3 ml Documented By: ROSETTE Labs 04/22/24 06:47 04/24/24 11:06 Labs: Laboratory Results - last 24 hr 04/24/24 11:06 Estim Creat Clear Calc 67.1 Estimated GFR > 60 Microbiology Microbiology Results: Microbiology 04/22/24 15:41 Blood Culture - Preliminary Blood - Venous No growth after 24 hours. 04/22/24 15:41 Blood Culture - Preliminary Blood - Venous No growth after 24 hours. 04/19/24 09:22 Blood Culture - Final Blood - Venous Escherichia coli Proteus mirabilis Assessment and Plan (1) HTN (hypertension): Status: Acute (2) Sepsis: Status: Acute Plan 68yo M LTC resident of [facility], nonverbal with history of vascular dementia, CVA with R-sided hemiparesis, neurogenic bladder with chronic SPT, stage 4 sacral decubitus ulcer, hx C. difficile colitis, seizure disorder, HTN, HLD, reportedly no urinary output for 8 days prior to admission. Pt presented to ED with abdominal pain. patient with poor response to IVF and required admission to the ICU for pressor support. Septic shock due to ESBL e.coli UTI and ecoli bactermia weaned off pressors leukocytosis resolved final results of blood cultures pending meropenem ID consult>14 days abx Reed ordered CT showed Right perinephic stranding Right staghorn calculus, ureteral stones mild hydro- chronic, similar findings in september renal fxn stable, repeat lactic acid normal. Ureteral stent was considered, however due to the position of staghorn calculus will likely limit adequate placement. manage conservatively for now. indwelling right PCN h/o cva with residual right side paresis and neurogenic bladder Seen by speech therapy recommend NDD 1 diet with honey thick liquids, pills crushed in puree aspiration precautions h/o seizure d/o resume keppra acute on chronic normocytic anemia no evidence of acute blood loss improved today without intervention ?component of dilution xarelto on hold stool occult neg follow CBC thrombocytopenia acute on chronic likely due to sepsis PAF xarelto on hold for anemia/thrombocytopenia hypokalemia improved with replacement stage 4 pressure injury of sacrum/coccyx. poa continue local wound care HTN losartan on hold due to septic shock. if bp remains stable can resume dvt ppx - heparin d/c presumably due to anemia Quality Stroke Does the patient have a stroke diagnosis?: No VTE Prior VTE?: No VTE Risk Level:: Medical - moderate - high VTE Device Contraindication: Treatment Not Indicated VTE Drug Contraindication: N/A - Med Ordered
--- NOTE | 2024-04-24 12:55 | MHC.CM.PN ---
Addendum entered by Jeimy Jimenez 04/24/24 13:04: Telephonic Commercial Review Appraiser left a detailed message for Son/HCP/Al, at listed #, informing him that today's dc has been canceled. CM will follow. Original Note: Per CHIEF CLOTH FINISHING RANGE OPERATOR/Taylor, scheduled dc for today has been canceled regarding issues with getting the Midline. Transportation has been canceled, RN & SNF are aware and CM will inform family of the change.
--- NOTE | 2024-04-24 13:10 | MHC.CLN ---
Addendum entered by Stephenie Beckford, JAMAL 04/24/24 13:13: PO INTAKE 25, 50, 100% X 3 MEALS Original Note: F/U PT WITH INCREASED NUTRITION RISK R/T PRESSURE INJURY DIET ADVANCED TO PUREED WITH HT LIQ PER COMMUTER PILOT RECOMMEND ADDING SUPPLEMENT TO PROMOTE WOUND HEALING ENSURE TID WOULD PROVIDE 1050KCALS, 60G PROTEIN MONITOR PO INTAKE AND ENCOURAGE SUPPLEMENT
--- NOTE | 2024-04-24 13:32 | MHC.SL.SWA ---
Speech Pathologist Impression: Moderate oropharyngeal dysphagia secondary to residual effects of CVA Risk of Aspiration Due to: Neurological Condition Reduced Cognition Hx of CVA Dysphasia Diet Status: 1:1 feed and aspiration precautions Liquid Consistency and Strategies for Safe Swallow: Liquid Intake Recommendation: Honey Thick Liquid Intake Strategies: Small Sips Solid Food Consistency: Dietary Recommendations: Pureed (NDD1) Additional Modifications to Solid Foods: Patient presents with moderate oropharyngeal phase dysphagia, characterized by slow and disorganized oral phase and delayed pharyngeal phase. Patient presents with repetitive tongue pumping, partial laryngeal elevation, and mildly delayed pharyngeal swallow trigger. Complete oral clearance noted on liquid and solid consistencies and no overt s/s of aspiration with PO intake. Recommend continue prior TEACHING ASSISTANT recommendation of PUREED (NDD1) solids and HONEY THICK liquids, pills to be CRUSHED or whole in PUREE. Oral Medication Intake: Whole with Puree Please contact the pharmacy regarding appropriate crushable or liquid drug formulations that are available whenever modified delivery is recommended. Compensatory Strategies and Precautions to be Taken for Safe Swallow: Sitting Upright (90 deg) Liquids from Spoon Small Bites and Sips Rate of Ingestion Change Supervision While Eating and Drinking for Safe Swallow: Total Assistance (1:1) Foods to Avoid: Mixed consistencies Swallowing Recommended Treatments: Compens. Strategy Educat. Recommendation for Speech: Inpatient Speech Therapy Speech Therapy through Rehab Facility Comment: Patient is LTC resident at [facility], hx of dementia and CVA with residual right sided deficits. REcc NDD1 with HTL, 1:1 supervision/assist at all meals (pt unable to feed himself), +aspriation precautions. Frequency/Duration: M-F while inpatient Date Range for Service Req: Timeline to reassess: PRN Measurer Machine Clinican/Clinical Fellow: No Supervisory Statement: I have reviewed and agree with the student/clinical fellow's documentation: N/A Speech Language Pathologist: Iliana Mcdaniels M.S., CCC-TEACHING ASSISTANT
--- NOTE | 2024-04-24 15:21 | PM.EVENT ---
Event Note Date of Service: 04/24/24 Event Note: Multiple phone calls have been made to patient's son/healthcare proxy Al Costa for consent to place Reed catheter, however, no answer. VM left. Time Spent With Patient Time: Total time managing care of this patient today ____ minutes.
[2024-04-24] MEDS: Gabapentin 300 MG CAPSULE PO (21:57)
[2024-04-25] VITALS (10 sets, daily range): BP systolic 98–142; BP diastolic 60–84; PULSE 54–88; RESP 12–20; TEMP 36.2–37.2; O2SAT 95–99; BMI 22.4
[2024-04-25] MEDS: Meropenem 1 GM VIAL IVPUSH (05:42)
[2024-04-25] MEDS: 0.9 % Sodium Chloride Flush 3 ML SYRINGE IVFLUSH ×3 (05:43→15:04)
[2024-04-25] MEDS: levETIRAcetam Oral Soln 500 MG/5 ML 250 MG PO ×2 (08:13→20:30)
[2024-04-25] MEDS: Atorvastatin Calcium 80 MG TABLET PO (08:15)
[2024-04-25] MEDS: Ferrous Sulfate 324 MG TABLET.DR PO (08:15)
--- NOTE | 2024-04-25 09:24 | PM.PROC ---
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 Tip at cavoatrial junction. Ok for use. Anesthesia: local
--- NOTE | 2024-04-25 12:08 | MHC.SL.SWA ---
Speech Pathologist Impression: Oropharyngeal Dysphagia, Risk of Aspiration Risk of Aspiration Due to: Neurological Condition Reduced Cognition Dysphasia Diet Status: 1:1 feed and aspiration precautions Liquid Consistency and Strategies for Safe Swallow: Liquid Intake Recommendation: Honey Thick Liquid Intake Strategies: Small Sips No Straws Solid Food Consistency: Dietary Recommendations: Pureed (NDD1) Additional Modifications to Solid Foods: Continue diet of PUREED solids (NDD1) and HONEY THICK liquids w/ 1:1 feeding and aspiration precautions: ensure optimal upright positioning, administer small bites/sips, feeding w/ slow pace, watch for swallow and check oral cavity for clearance, present dry spoon to encourage dry swallows between bites/sips. Minimize distractions during mealtime. Oral Medication Intake: Whole with Puree Please contact the pharmacy regarding appropriate crushable or liquid drug formulations that are available whenever modified delivery is recommended. Compensatory Strategies and Precautions to be Taken for Safe Swallow: Sitting Upright (90 deg) No Straw Small Bites and Sips Rate of Ingestion Change Oral Check Supervision While Eating and Drinking for Safe Swallow: Total Assistance (1:1) Foods to Avoid: Mixed consistencies Swallowing Recommended Treatments: Compens. Strategy Educat. Recommendation for Speech: Inpatient Speech Therapy Speech Therapy through Rehab Facility Comment: Patient is LTC resident at [facility], hx of dementia and CVA with residual right sided deficits Frequency/Duration: M-F while inpatient Date Range for Service Req: Timeline to reassess: BREANAN Art Model Clinican/Clinical Fellow: No Supervisory Statement: I have reviewed and agree with the student/clinical fellow's documentation: N/A Speech Language Pathologist: Danielle Avery M.A., CCC-INTERNET MERCHANT
--- NOTE | 2024-04-25 13:02 | MHC.CM.PN ---
EMR reviewed and per MD rounds, pt is medically cleared to return to LTC at [facility] ([facility]). This CM spoke with [facility] liaison and she states that they are unable to accept pt back with the Reed catheter, she referred this CM to speak with their MARS Salgado. This CM spoke with [facility] Naomi CREWS who stated that she spoke with people higher up than her/corporate and they state that he cannot return with the Reed as they do not have policies in place/competencies completed with staff in order to properly care for it. This CM requested that steps be made on [facility]'s end in preparation to care for this pts Reed. MARS Salgado stated she will follow up with CM on this matter tomorrow. Hospitalist updated.
--- NOTE | 2024-04-25 13:45 | P.PNIM_ITS ---
Subjective Subjective Date of Service: 04/25/24 Review of Systems Follow up septic shock mostly nonverbal Physical Exam 2 Vital Signs: Vital Signs: Last Vital Signs Temp 97.5 F 04/25/24 11:23 Pulse 70 04/25/24 11:23 Resp 16 04/25/24 11:23 BP 125/66 04/25/24 11:23 Pulse Ox 97 04/25/24 11:23 O2 Del Method Room Air 04/25/24 11:23 BMI result Body Mass Index 22.4 Appearing in no acute distress lung sounds are clear to auscultation heart regular rate rhythm, clear S1, S2 positive bowel sounds, abdomen is soft, nontender neuro patient is alert x3, no focal deficits Objective Data Active Medications Atorvastatin Calcium (Atorvastatin Calcium 80 Mg Tablet) 80 mg PO DAILY [facility] Last Admin: 04/25/24 08:15 Dose: 80 mg Documented By: ROSETTE Ertapenem (Ertapenem Sodium 1 Gm Vial) 1 gm IVPUSH ONCE ONE Stop: 04/25/24 14:01 Ferrous Sulfate (Ferrous Sulfate 324 Mg Tablet.) 324 mg PO DAILY [facility] Last Admin: 04/25/24 08:15 Dose: 324 mg Documented By: ROSETTE Gabapentin (Gabapentin 300 Mg Capsule) 300 mg PO BEDTIME [facility] Last Admin: 04/24/24 21:57 Dose: 300 mg Documented By: JASON Levetiracetam (Levetiracetam Oral Soln 500 Mg/5 Ml) 250 mg PO BID [facility] Last Admin: 04/25/24 08:13 Dose: 250 mg Documented By: ROSETTE Losartan Potassium (Losartan Potassium 50 Mg Tablet) 100 mg PO DAILY [facility]; Protocol Meropenem (Meropenem 1 Gm Vial) 1 gm IVPUSH Q8H [facility] Last Admin: 04/25/24 05:42 Dose: 1 gm Documented By: JASON Comments: admin. late d/t med. not avail. for 2000 dose, awaited pharm. to deliver. Rivaroxaban (Rivaroxaban 20 Mg Tablet) 20 mg PO DAILY@1700 [facility] Sodium Chloride (0.9 % Sodium Chloride Flush 3 Ml Syringe) 3 ml IVFLUSH QSHIFT [facility] Last Admin: 04/25/24 08:15 Dose: 3 ml Documented By: ROSETTE Tamsulosin HCl (Tamsulosin Hcl 0.4 Mg Capsule) 0.4 mg PO BEDTIME [facility] 04/22/24 06:47 04/24/24 11:06 Microbiology Microbiology Results: Microbiology 04/22/24 15:41 Blood Culture - Preliminary Blood - Venous No growth after 48 hours. 04/22/24 15:41 Blood Culture - Preliminary Blood - Venous No growth after 48 hours. Assessment and Plan (1) HTN (hypertension): Status: Acute (2) Sepsis: Status: Acute Plan 68yo M LTC resident of [facility], nonverbal with history of vascular dementia, CVA with R-sided hemiparesis, neurogenic bladder with chronic SPT, stage 4 sacral decubitus ulcer, hx C. difficile colitis, seizure disorder, HTN, HLD, reportedly no urinary output for 8 days prior to admission. Pt presented to ED with abdominal pain. patient with poor response to IVF and required admission to the ICU for pressor support. Septic shock due to ESBL e.coli UTI and ecoli bactermia weaned off pressors leukocytosis resolved final results of blood cultures pending meropenem ID consult>14 days abx Reed placed CT showed Right perinephic stranding Right staghorn calculus, ureteral stones mild hydro- chronic, similar findings in september renal fxn stable, repeat lactic acid normal. Ureteral stent was considered, however due to the position of staghorn calculus will likely limit adequate placement. manage conservatively for now. indwelling right PCN h/o cva with residual right side paresis and neurogenic bladder Seen by speech therapy recommend NDD 1 diet with honey thick liquids, pills crushed in puree aspiration precautions h/o seizure d/o resume keppra acute on chronic normocytic anemia no evidence of acute blood loss improved today without intervention ?component of dilution xarelto on hold stool occult neg follow CBC thrombocytopenia acute on chronic likely due to sepsis PAF xarelto on hold for anemia/thrombocytopenia hypokalemia improved with replacement stage 4 pressure injury of sacrum/coccyx. poa continue local wound care HTN losartan on hold due to septic shock. if bp remains stable can resume dvt ppx - heparin d/c presumably due to anemia Quality Stroke Does the patient have a stroke diagnosis?: No VTE Prior VTE?: No VTE Risk Level:: Medical - moderate - high VTE Device Contraindication: Treatment Not Indicated VTE Drug Contraindication: N/A - Med Ordered
[2024-04-25] MEDS: Ertapenem Sodium 1 GM VIAL IVPUSH (15:04)
[2024-04-25] MEDS: Rivaroxaban 20 MG TABLET PO (19:23)
[2024-04-25] MEDS: Tamsulosin HCL 0.4 MG CAPSULE PO (20:30)
[2024-04-25] MEDS: Gabapentin 300 MG CAPSULE PO (20:30)
--- NOTE | 2024-04-25 21:53 | W.PM.IDCN ---
History of Present Illness Data of Consult Service Date: 04/24/24 Requesting physician: Taylor Ventura Primary Care Provider: Lorraine Wiley MD HPI Reason for consult: septic shock He presents with eight days anuria. He had blood cultures E coli and proteus both sensitive to only gentamicin per protocol. He has vascular dementia and is nonverbal. Review of Systems Review of Systems: Yes Unobtainable due to mental condition [facility] Past Medical History Medical History Septic shock Paralytic ileus of small intestine and colon Calculi, ureter Osteomyelitis of sacrum Decubitus ulcer Acute UTI Seizure disorder Chronic constipation Decubitus ulcer of sacral area Osteomyelitis C. 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 Mother No problems noted. Family history: reviewed and not pertinent Surgical History Surgical History No pertinent past surgical history Social History Social History Household Members: Other Household Members Other:: [facility] Housing: [facility] Are you a primary manager medicare marketing to a significant other at home: No Do you presently have visiting nurse or other home services: No Unable to assess alcohol history related to: Unable to respond Alcohol intake: former Comment: patient sleeping Patient Tobacco Use Status: Tobacco use Unknown Second Hand Smoke Exposure: No Advance Directives Date on File: 02/14/20 service: No Current occupational status: disabled Meds Allergies Allergy/AdvReac Type Severity Reaction Status Date / Time No Known Allergies Allergy Verified 04/19/24 09:24 [No Known Allergies*] Active Medications: Current Medications Atorvastatin Calcium (Atorvastatin Calcium 80 Mg Tablet) 80 mg PO DAILY [facility] Last Admin: 04/25/24 08:15 Dose: 80 mg Ferrous Sulfate (Ferrous Sulfate 324 Mg Tablet.) 324 mg PO DAILY [facility] Last Admin: 04/25/24 08:15 Dose: 324 mg Gabapentin (Gabapentin 300 Mg Capsule) 300 mg PO BEDTIME [facility] Last Admin: 04/25/24 20:30 Dose: 300 mg Levetiracetam (Levetiracetam Oral Soln 500 Mg/5 Ml) 250 mg PO BID [facility] Last Admin: 04/25/24 20:30 Dose: 250 mg Losartan Potassium (Losartan Potassium 50 Mg Tablet) 100 mg PO DAILY [facility]; Protocol Meropenem (Meropenem 1 Gm Vial) 1 gm IVPUSH Q8H [facility] Rivaroxaban (Rivaroxaban 20 Mg Tablet) 20 mg PO DAILY@1700 [facility] Last Admin: 04/25/24 19:23 Dose: 20 mg Sodium Chloride (0.9 % Sodium Chloride Flush 3 Ml Syringe) 3 ml IVFLUSH QSHIFT [facility] Last Admin: 04/25/24 15:04 Dose: 3 ml Tamsulosin HCl (Tamsulosin Hcl 0.4 Mg Capsule) 0.4 mg PO BEDTIME [facility] Last Admin: 04/25/24 20:30 Dose: 0.4 mg Home Medications ?Medication ?Instructions ?Recorded ?Confirmed ?Last Taken ?Type acetaminophen 325 mg tablet 650 mg PO Q4H PRN fever/pain 02/16/21 04/19/24 Unknown History bisacodyl 10 mg rectal suppository 10 mg DE DAILY PRN If no BM in 8 02/16/21 04/19/24 Unknown History hours after use of MoM calcium 600 mg (as 1 tab PO BID 02/16/21 04/19/24 02/14/22 History carbonate)-vitamin D3 5 mcg (200 unit) tablet magnesium hydroxide 400 mg/5 mL 30 ml PO DAILY PRN No BM in 3 Days 02/16/21 04/19/24 Unknown History oral suspension (Milk of Magnesia) levetiracetam 100 mg/mL oral 2.5 ml PO BID 02/26/21 04/19/24 02/14/22 History solution atorvastatin 80 mg tablet 80 mg PO DAILY 01/26/22 04/19/24 02/14/22 History rivaroxaban 20 mg tablet (Xarelto) 20 mg PO DAILY@1700 01/26/22 04/19/24 02/14/22 History magnesium citrate 150 ml PO DAILY PRN No BM in 12 hrs 02/15/22 04/19/24 Unknown History sodium phosphates 19 gram-7 118 ml DE DAILY PRN If no BM in 8 02/15/22 04/19/24 Unknown History gram/118 mL enema (Fleet Enema) hours after use of Bisacodyl acetaminophen 325 mg tablet 650 mg PO BEDTIME 10/03/22 04/19/24 Unknown History (Tylenol) acetic acid 0.25 % irrigation 50 ml irrigation TUTHSA@2100 10/03/22 04/19/24 Unknown History solution ferrous sulfate 325 mg (65 mg 325 mg PO DAILY 12/22/22 04/19/24 Unknown History iron) tablet multivitamin 1 tab PO DAILY 01/18/24 04/19/24 Unknown History psyllium 1 ea PO BEDTIME 01/18/24 04/19/24 Unknown History sodium hypochlorite 0.125 % 1 appl topical BEDTIME 01/18/24 04/19/24 Unknown History solution oxycodone 5 mg tablet 5 mg PO DAILY PRN Pain/Wound 04/19/24 04/19/24 Unknown History Management potassium chloride 20 mEq/15 mL 30 meq PO BID 04/19/24 04/19/24 Unknown History oral liquid simethicone 80 mg chewable tablet 80 mg PO Q6H PRN Abdominal 04/19/24 04/19/24 Unknown History Distention Physical Exam Vital Signs: Vital Signs: Last Vital Signs Temp 98.1 F 04/25/24 19:33 Pulse 84 04/25/24 19:33 Resp 18 04/25/24 19:33 BP 100/67 04/25/24 19:33 Pulse Ox 98 04/25/24 19:33 O2 Del Method Room Air 04/25/24 19:33 BMI result Body Mass Index 22.4 Const: General: cooperative and patient obtunded Orientation/consciousness: patient obtunded HEENT: Head: Yes normal to inspection Face and sinus: Yes normal facial exam Mouth: Normal oral and palatal mucosa present Teeth and gingiva: dentition normal Eyes: General: appearance normal, both eyes and all related structures Pupils: Equal, round and reactive pupils present Resp: Effort & Inspection: normal respiratory effort Cardio: Rate: regular rate Rhythm: regular rhythm GI: Palpation (GI): Soft to palpation and nontender : General: Yes no CVA tenderness Back/Spine/Pelvis: Back: no CVA tenderness Skin: General skin exam: no rashes or lesions noted Neuro: Other: weakness General: patient obtunded and Unable to assess gait Cranial nerves: Yes Equal, round and reactive pupils present Gait exam (Neuro): Unable to assess gait Extrem: General: Yes normal to inspection Psych: Appearance: grossly normal Results Labs 04/22/24 06:47 04/24/24 11:06 Microbiology Microbiology Results: Microbiology 04/22/24 15:41 Blood - Venous Blood Culture - Preliminary No growth after 48 hours. 04/22/24 15:41 Blood - Venous Blood Culture - Preliminary No growth after 48 hours. 04/19/24 09:22 Blood - Venous Blood Culture - Final Escherichia coli Proteus mirabilis 04/19/24 09:21 Blood - Venous Blood Culture - Final Escherichia coli 04/19/24 12:38 Urine Other - Suprapubic Urine Culture - Final Escherichia coli Assessment and Plan (1) UTI due to extended-spectrum beta lactamase (ESBL) producing Escherichia coli: Status: Acute (2) E coli bacteremia: Status: Acute (3) Septic shock: Status: Acute Plan Apparently he has cleared blood cultures on Merem He has bladder stasis as cause Would continue Merem at this time and ask lab about sensitivity Merem and Ertapenem may be sensitive in vivo and may be able to use for 14 days possibly
[2024-04-26 03:49] VITALS: BP 110/75; PULSE 89; RESP 18; TEMP 36.6; O2SAT 96
[2024-04-26 06:00] VITALS: BMI 27.4
[2024-04-26 07:13] LABS: Estimated Glomerular Filt Rate > 60
[2024-04-26 07:27] VITALS: BP 102/64; PULSE 71; RESP 16; TEMP 36.9; O2SAT 97
--- NOTE | 2024-04-26 08:25 | P.PNIM_ITS ---
Subjective Subjective Date of Service: 04/26/24 Review of Systems Follow up septic shock/uti nonverbal except for head nods. Denies pain, sob, cp. Physical Exam 2 Vital Signs: Vital Signs: Last Vital Signs Temp 98.5 F 04/26/24 07:27 Pulse 71 04/26/24 07:27 Resp 16 04/26/24 07:27 BP 102/64 04/26/24 07:27 Pulse Ox 97 04/26/24 07:27 O2 Del Method Room Air 04/26/24 07:27 BMI result Body Mass Index 27.4 Constitutional - Awake and Alert, No apparent distress Eyes - PERRLA, EOMI Cardiovascular - S1S2, RRR, No edema Respiratory - Normal lung expansion, Normal respiratory effort, No respiratory distress, CTA bilaterally Gastrointestinal - NT / ND; +BS; No rebound or guarding Extremities - no calf tenderness bilaterally, no swelling Skin - Warm/Dry Neurological - Alert & nonverbal Psychological - Appropriate affect Objective Data Active Medications Atorvastatin Calcium (Atorvastatin Calcium 80 Mg Tablet) 80 mg PO DAILY [facility] Last Admin: 04/25/24 08:15 Dose: 80 mg Documented By: ROSETTE Ferrous Sulfate (Ferrous Sulfate 324 Mg Tablet.) 324 mg PO DAILY [facility] Last Admin: 04/25/24 08:15 Dose: 324 mg Documented By: ROSETTE Gabapentin (Gabapentin 300 Mg Capsule) 300 mg PO BEDTIME [facility] Last Admin: 04/25/24 20:30 Dose: 300 mg Documented By: JASON Levetiracetam (Levetiracetam Oral Soln 500 Mg/5 Ml) 250 mg PO BID [facility] Last Admin: 04/25/24 20:30 Dose: 250 mg Documented By: JASON Losartan Potassium (Losartan Potassium 50 Mg Tablet) 100 mg PO DAILY [facility]; Protocol Meropenem (Meropenem 1 Gm Vial) 1 gm IVPUSH Q8H [facility] Rivaroxaban (Rivaroxaban 20 Mg Tablet) 20 mg PO DAILY@1700 [facility] Last Admin: 04/25/24 19:23 Dose: 20 mg Documented By: ROSETTE Sodium Chloride (0.9 % Sodium Chloride Flush 3 Ml Syringe) 3 ml IVFLUSH QSHIFT [facility] Last Admin: 04/26/24 02:18 Dose: Not Given Documented By: JASON Non-Admin Reason: Patient Asleep Tamsulosin HCl (Tamsulosin Hcl 0.4 Mg Capsule) 0.4 mg PO BEDTIME [facility] Last Admin: 04/25/24 20:30 Dose: 0.4 mg Documented By: JASON Labs 04/22/24 06:47 04/26/24 06:29 Labs: Laboratory Results - last 24 hr 04/26/24 06:29 Hold Purple Top SEE NOTE Estim Creat Clear Calc 88.0 Estimated GFR > 60 Assessment and Plan (1) HTN (hypertension): Status: Acute (2) Sepsis: Status: Acute Plan 68yo M LTC resident of [facility], nonverbal with history of vascular dementia, CVA with R-sided hemiparesis, neurogenic bladder with chronic SPT, stage 4 sacral decubitus ulcer, hx C. difficile colitis, seizure disorder, HTN, HLD, reportedly no urinary output for 8 days prior to admission. Pt presented to ED with abdominal pain. patient with poor response to IVF and required admission to the ICU for pressor support. Septic shock due to ESBL e.coli UTI and ecoli bactermia weaned off pressors leukocytosis resolved final results of blood cultures pending ID consult>14 days abx (meropenam initiated 04/26- clled lab to confirm sensitivity) Reed placed CT showed Right perinephic stranding Right staghorn calculus, ureteral stones mild hydro- chronic, similar findings in september renal fxn stable, repeat lactic acid normal. Ureteral stent was considered, however due to the position of staghorn calculus will likely limit adequate placement. manage conservatively for now. indwelling right PCN h/o cva with residual right side paresis and neurogenic bladder Seen by speech therapy recommend NDD 1 diet with honey thick liquids, pills crushed in puree aspiration precautions h/o seizure d/o resume keppra acute on chronic normocytic anemia no evidence of acute blood loss improved today without intervention ?component of dilution xarelto on hold stool occult neg follow CBC thrombocytopenia acute on chronic likely due to sepsis PAF xarelto on hold for anemia/thrombocytopenia hypokalemia improved with replacement stage 4 pressure injury of sacrum/coccyx. poa continue local wound care HTN losartan on hold due to septic shock. if bp remains stable can resume dvt ppx - heparin d/c presumably due to anemia awaiting placement for iv antibiotic management Quality Stroke Does the patient have a stroke diagnosis?: No VTE Prior VTE?: No VTE Risk Level:: Medical - moderate - high VTE Device Contraindication: Treatment Not Indicated VTE Drug Contraindication: N/A - Med Ordered
[2024-04-26 09:16] VITALS: BP 114/67
[2024-04-26] MEDS: levETIRAcetam Oral Soln 500 MG/5 ML 250 MG PO ×2 (09:16→21:03)
[2024-04-26] MEDS: Losartan Potassium 50 MG TABLET 100 MG PO (09:16)
[2024-04-26] MEDS: Atorvastatin Calcium 80 MG TABLET PO (09:16)
[2024-04-26] MEDS: Ferrous Sulfate 324 MG TABLET.DR PO (09:16)
[2024-04-26] MEDS: Meropenem 1 GM VIAL IVPUSH ×3 (09:17→23:50)
[2024-04-26] MEDS: 0.9 % Sodium Chloride Flush 3 ML SYRINGE IVFLUSH ×2 (09:23→23:55)
[2024-04-26 11:29] VITALS: BP 111/68; PULSE 88; RESP 16; TEMP 36.6; O2SAT 98
--- NOTE | 2024-04-26 13:08 | MHC.SLORD ---
Speech Language Pathology Order Status: Pt sleeping, RN consulted, pt remains on NDD1 with HTL, no concerns reported, pt ate all of his breakfast. ST to follow as indicated.
--- NOTE | 2024-04-26 14:20 | MHC.CLN ---
F/U PO INTAKE VARIABLE DIET RX: PUREED WITH HT LIQ PT RECEIVING ENSURE TID PROVIDES 1050KCALS, 60G PROTEIN MONITOR PO INTAKE AND ENCOURAGE SUPPLEMENT FOR WOUND HEALING
--- NOTE | 2024-04-26 14:39 | MHC.CM.PN ---
EMR reviewed and per MD rounds, pt is medically cleared for discharge but unable to due to [facility] unable to accept him back to their facility with a Reed catheter, they state once it's removed, he can return.
[2024-04-26 15:42] VITALS: BP 110/68; PULSE 68; RESP 16; TEMP 36.7; O2SAT 96
[2024-04-26] MEDS: Rivaroxaban 20 MG TABLET PO (17:15)
[2024-04-26 19:56] VITALS: BP 110/65; PULSE 75; RESP 16; TEMP 36.9; O2SAT 98
[2024-04-26] MEDS: Tamsulosin HCL 0.4 MG CAPSULE PO (21:03)
[2024-04-26] MEDS: Gabapentin 300 MG CAPSULE PO (21:03)
[2024-04-27] VITALS: BP 110/61; PULSE 62; RESP 16; TEMP 36.4; O2SAT 97
[2024-04-27 03:14] VITALS: BP 101/64; PULSE 67; RESP 16; TEMP 36.5; O2SAT 98
[2024-04-27 05:43] VITALS: BMI 27.4
[2024-04-27 07:14] VITALS: BP 116/65; PULSE 70; RESP 18; TEMP 36.5; O2SAT 98
[2024-04-27] MEDS: Atorvastatin Calcium 80 MG TABLET PO (09:26)
[2024-04-27] MEDS: levETIRAcetam Oral Soln 500 MG/5 ML 250 MG PO ×2 (09:26→21:21)
[2024-04-27] MEDS: Losartan Potassium 50 MG TABLET 100 MG PO (09:27)
[2024-04-27] MEDS: Ferrous Sulfate 324 MG TABLET.DR PO (09:27)
[2024-04-27] MEDS: Meropenem 1 GM VIAL IVPUSH ×2 (09:28→17:19)
[2024-04-27] MEDS: 0.9 % Sodium Chloride Flush 3 ML SYRINGE IVFLUSH ×3 (09:28→21:22)
[2024-04-27 09:32] LABS: Creatinine Clr Calc Pharmacy 68.6; Estimated Glomerular Filt Rate > 60
--- NOTE | 2024-04-27 10:12 | MHC.SL.SWA ---
Speech Pathologist Impression: Risk of Aspiration Due to: Neurological Condition Reduced Cognition Dysphasia Diet Status: Recommend continue on PUREE (NDD1) with HONEY THICK liquids pills crushed in puree, 1-1 feeding. Diet continues to be recommended for next level of care. Liquid Consistency and Strategies for Safe Swallow: Liquid Intake Recommendation: Honey Thick Liquid Intake Strategies: Small Sips No Straws Solid Food Consistency: Dietary Recommendations: Pureed (NDD1) Additional Modifications to Solid Foods: Continue diet of PUREED solids (NDD1) and HONEY THICK liquids w/ 1:1 feeding and aspiration precautions: ensure optimal upright positioning, administer small bites/sips, feeding w/ slow pace, watch for swallow and check oral cavity for clearance, present dry spoon to encourage dry swallows between bites/sips. Minimize distractions during mealtime. Oral Medication Intake: Whole with Puree Please contact the pharmacy regarding appropriate crushable or liquid drug formulations that are available whenever modified delivery is recommended. Compensatory Strategies and Precautions to be Taken for Safe Swallow: Sitting Upright (90 deg) No Straw Small Bites and Sips Rate of Ingestion Change Oral Check Supervision While Eating and Drinking for Safe Swallow: Total Assistance (1:1) Foods to Avoid: Mixed consistencies Swallowing Recommended Treatments: Compens. Strategy Educat. Recommendation for Speech: Inpatient Speech Therapy Speech Therapy through Rehab Facility Comment: Patient seen at conclusion of breakfast this morning, being fed by STRINGED INSTRUMENT REPAIRER. Patient had consumed all items on tray, had eaten well, was requesting more juice which the STRINGED INSTRUMENT REPAIRER went to retieve with more thickener. Patient tolerating tsps of HT thick juice, continued to be engaged in meal during observation. Patient continues to do well on current consistencies with good nutritional intake. Recommend continue on PUREE (NDD1) with HONEY THICK liquids pills crushed in puree, 1-1 feeding. Diet continues to be recommended for next level of care. Frequency/Duration: M-F while inpatient Date Range for Service Req: Timeline to reassess: PRN Foot Worker Clinican/Clinical Fellow: No Supervisory Statement: I have reviewed and agree with the student/clinical fellow's documentation: N/A Speech Language Pathologist: Daneille Avery M.A., CCC-PPA TEACHER
--- NOTE | 2024-04-27 11:54 | HO.PM.IMPN ---
Subjective Subjective Date of Service: 04/27/24 Interval History: Seen and examined this morning Follow-up for resistant UTI Patient nonverbal, unable to obtain ROS Physical Exam Vital Signs: Vital Signs: Last Vital Signs Temp 97.7 F 04/27/24 07:14 Pulse 70 04/27/24 07:14 Resp 18 04/27/24 07:14 BP 116/65 04/27/24 07:14 Pulse Ox 98 04/27/24 07:14 O2 Del Method Room Air 04/27/24 07:14 BMI result Body Mass Index 27.4 Const: Other: eyes open and track, answers some yes/no questions by shaking head General: alert and awake Resp: Effort & Inspection: normal respiratory effort, able to speak in complete sentences, no respiratory distress and no use of accessory muscles : Other: r nephrostomy tube in place Extrem: Other: off loading boots Objective Data Active Medications Atorvastatin Calcium (Atorvastatin Calcium 80 Mg Tablet) 80 mg PO DAILY [facility] Last Admin: 04/27/24 09:26 Dose: 80 mg Documented By: CAROLINA Ferrous Sulfate (Ferrous Sulfate 324 Mg Tablet.) 324 mg PO DAILY [facility] Last Admin: 04/27/24 09:27 Dose: 324 mg Documented By: CAROLINA Gabapentin (Gabapentin 300 Mg Capsule) 300 mg PO BEDTIME [facility] Last Admin: 04/26/24 21:03 Dose: 300 mg Documented By: ELIUD Levetiracetam (Levetiracetam Oral Soln 500 Mg/5 Ml) 250 mg PO BID [facility] Last Admin: 04/27/24 09:26 Dose: 250 mg Documented By: CAROLINA Losartan Potassium (Losartan Potassium 50 Mg Tablet) 100 mg PO DAILY [facility]; Protocol Last Admin: 04/27/24 09:27 Dose: 100 mg Documented By: CAROLINA Meropenem (Meropenem 1 Gm Vial) 1 gm IVPUSH Q8H [facility] Last Admin: 04/27/24 09:28 Dose: 1 gm Documented By: CAROLINA Rivaroxaban (Rivaroxaban 20 Mg Tablet) 20 mg PO DAILY@1700 [facility] Last Admin: 04/26/24 17:15 Dose: 20 mg Documented By: HARPAL Sodium Chloride (0.9 % Sodium Chloride Flush 3 Ml Syringe) 3 ml IVFLUSH QSHIFT [facility] Last Admin: 04/27/24 09:28 Dose: 3 ml Documented By: CAROLINA Tamsulosin HCl (Tamsulosin Hcl 0.4 Mg Capsule) 0.4 mg PO BEDTIME [facility] Last Admin: 04/26/24 21:03 Dose: 0.4 mg Documented By: ELIUD Labs 04/22/24 06:47 04/27/24 08:59 Labs: Laboratory Results - last 24 hr 04/27/24 08:59 Hold Purple Top SEE NOTE Estim Creat Clear Calc 68.6 Estimated GFR > 60 Microbiology Microbiology Results: Microbiology 04/19/24 09:21 Blood Culture - Final Blood - Venous Escherichia coli 04/19/24 12:38 Urine Culture - Final Urine Other - Suprapubic Escherichia coli Assessment and Plan (1) UTI due to extended-spectrum beta lactamase (ESBL) producing Escherichia coli: Status: Acute Plan 68yo M LTC resident of [facility], nonverbal with history of vascular dementia, CVA with R-sided hemiparesis, neurogenic bladder with chronic SPT, stage 4 sacral decubitus ulcer, hx C. difficile colitis, seizure disorder, HTN, HLD, reportedly no urinary output for 8 days prior to admission. Pt presented to ED with abdominal pain. patient with poor response to IVF and required admission to the ICU for pressor support. Septic shock due to ESBL e.coli UTI and ecoli bactermia weaned off pressors leukocytosis resolved final results of blood cultures pending ID consult>14 days abx (meropenam initiated 04/26- called lab to confirm sensitivity) Reed placed 04/25 CT showed Right perinephic stranding Right staghorn calculus, ureteral stones mild hydro- chronic, similar findings in september renal fxn stable, repeat lactic acid normal. Ureteral stent was considered, however due to the position of staghorn calculus will likely limit adequate placement. manage conservatively for now. indwelling right PCN h/o cva with residual right side paresis and neurogenic bladder Seen by speech therapy recommend NDD 1 diet with honey thick liquids, pills crushed in puree aspiration precautions h/o seizure d/o resume keppra acute on chronic normocytic anemia no evidence of acute blood loss improved today without intervention ?component of dilution stool occult neg thrombocytopenia acute on chronic likely due to sepsis PAF continue xarelto hypokalemia improved with replacement stage 4 pressure injury of sacrum/coccyx. poa continue local wound care HTN losartan resumed bp stable dvt ppx - heparin d/c presumably due to anemia. on xarelto awaiting placement for iv antibiotic management Quality Stroke Does the patient have a stroke diagnosis?: No VTE Prior VTE?: No VTE Risk Level:: Medical - moderate - high VTE Device Contraindication: Treatment Not Indicated VTE Drug Contraindication: N/A - Med Ordered
[2024-04-27 12:31] LABS: MANUAL DIFF FLAG NO
[2024-04-27 12:35] LABS: Basophils Percent Auto 0.8 % (0-2); Eosinophils Absolute Auto 0.2 X10*3/uL (0.0-0.4); Eosinophils Percent Auto 5.8 % (0-4); Hematocrit 30.4 % (42.0-52.0); Hemoglobin 9.7 g/dl (14.0-18.0); Imm Gran Abs Auto 0.06 X10*3/uL (0.00-0.03); Imm Gran Pct Auto 1.6 % (0.0-0.4); Lymphocytes Absolute Auto 1.3 X10*3/uL (1.2-4.9); Mean Corpuscular HGB Conc 31.9 g/dl (31.0-36.0); Mean Corpuscular Hemoglobin 31.8 pg (27.0-33.0); Mean Corpuscular Volume 99.7 fL (80.0-98.0); Mean Platelet Volume 10.3 fL (9.4-12.4); Monocytes Absolute Auto 0.6 X10*3/uL (0.1-1.2); Neutrophils Absolute Auto 1.6 x10*3/uL (2.0-8.3); Neutrophils Percent Auto 42.8 % (45-73); Platelet Count 182 X10*3/uL (160-400); Red Blood Count 3.05 X10*6/uL (4.60-5.80); Red Cell Distribution Width 14.5 % (11.0-16.0); White Blood Count 3.8 X10*3/uL (4.8-10.8)
[2024-04-27 12:43] LABS: Anion Gap 11 (12-20); Blood Urea Nitrogen 21 mg/dL (9-16); Calcium 9.2 mg/dL (8.4-10.2); Carbon Dioxide 28 mmol/L (22-29); Chloride 112 mmol/L (96-108); Glucose Random 88 mg/dL (60-115); Potassium 3.9 mmol/L (3.3-5.1); Sodium 147 mmol/L (135-145)
--- NOTE | 2024-04-27 12:46 | MHC.CM.PN ---
Referrals extended to [facility]; will follow.
--- NOTE | 2024-04-27 14:57 | HO.WOUND ---
Wound Consult: Follow up 68yr old male admitted to [facility] on?04/19/24- See progress notes and H&P for detailed history. Wound consult placed for Coccyx, right ankle and ischium. Patient is well known to this investigative writer. the patient was in ICU level of care and transitioned to [facility]. The Right Ischial and Ankle wounds were discovered on Med tele unit. The chart review reveals no significant gaps in care were noted however the patient did experience considerable Thrombocytopenia with levels of 53 for a few days. Bilateral ischium were noted for redness and scar tissue on admission recommended Foam application for prevention. Right Ischium Right Lateral Ankle Right Ankle and Right Ischium Etiology: ??Unlear Etiology: Purpura vs Deep Tissue Injury Wound Bed: dark maroon purple nonblanchable tissue Edges: ?irregular and attached - epidermal lifting noted to Right ischium Bonny wound: intact Scar tissue noted Goals of Treatment: ? Off load pressure skin prep and foam dressing WO nurse will continue to follow. Picture from admission Sacrum / Coccyx Etiology: ??Stage 4 Pressure Injury Present on Admission Wound Bed: clean moist red pink tissue Edges: ?epibole Bonny wound: maceration noted - Scar tissue noted Goals of Treatment: ? Moist wound healing - Moisture management with Alginate and off load pressure Recommendations: 1. Turn and Reposition every 2 hours and as needed for patient comfort.? Use pillows or wedges to support off loading positions. 2. Off Load all bony prominences with use of pillows and heel boots if needed.? Apply Preventative foams where needed. ? 3. Monitor for incontinence and moisture control, use barrier creams when needed for prevention and treatment. 4. Provide adequate and supplemental nutrition. 5. Order or Continue low air loss mattress. 6. Sacrum / Coccyx - Cleanse and irrigate with NS, Pat dry.? Apply skin prep to periwound, cover wound bed with Alginate (Durafiber AG).? Cover with Foam dressing.? Change every 3 days and PRN. 7. Bilateral ischium and Right Lateral Ankle - Cleanse with NS moist gauze, pat dry. Apply skin prep - protective foam to be applied and Q2hr turns with pillows. Change every 3 days and PRN. Recommend follow up out patient Wound Clinic at [address] [place] [id number] and to call for an appointment at time of discharge. [phone].?
[2024-04-27 15:11] VITALS: BP 111/60; PULSE 61; RESP 18; TEMP 36.6; O2SAT 97
[2024-04-27] MEDS: Rivaroxaban 20 MG TABLET PO (17:19)
[2024-04-27 19:53] VITALS: BP 91/56; PULSE 67; RESP 16; TEMP 36.7; O2SAT 97
[2024-04-27] MEDS: Tamsulosin HCL 0.4 MG CAPSULE PO (21:21)
[2024-04-27] MEDS: Gabapentin 300 MG CAPSULE PO (21:21)
[2024-04-28] MEDS: Meropenem 1 GM VIAL IVPUSH ×4 (00:06→23:37)
[2024-04-28 03:22] VITALS: BP 114/66; PULSE 63; RESP 19; TEMP 37.3; O2SAT 95
[2024-04-28 07:16] VITALS: BP 108/65; PULSE 56; RESP 16; TEMP 36.7; O2SAT 97
[2024-04-28 07:57] LABS: Creatinine Clr Calc Pharmacy 79.4; Estimated Glomerular Filt Rate > 60
[2024-04-28] MEDS: Losartan Potassium 50 MG TABLET 100 MG PO (09:29)
[2024-04-28] MEDS: levETIRAcetam Oral Soln 500 MG/5 ML 250 MG PO ×2 (09:29→21:53)
[2024-04-28] MEDS: Atorvastatin Calcium 80 MG TABLET PO (09:29)
[2024-04-28] MEDS: Ferrous Sulfate 324 MG TABLET.DR PO (09:29)
[2024-04-28] MEDS: 0.9 % Sodium Chloride Flush 3 ML SYRINGE IVFLUSH ×3 (09:30→21:54)
--- NOTE | 2024-04-28 10:08 | HO.WOUND ---
Wound Consult: Follow up 68yr old male admitted to [facility] on?04/19/24- See progress notes and H&P for detailed history. Wound consult follow up for Coccyx, right ankle and right ischium. 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 KING pump in use on bed at this time. The patient was incontinent of liquid stool - All dressings changed. Sacrum continues with light packing of durafiber AG change every other day. The right ischium and right ankle after assessment I have added Medihoney to expedite healing, covered with foam dressing. Will update direct care team orders. Inpatient wound care nurse will continue to follow. Medihoney tube left at bedside. Right Lateral Ankle and Right Ischium - Q2hr turns with pillows. Cleanse with NS moist gauze, pat dry. Apply skin prep - Apply thin layer of Medihoney (tube left at bedside) cover with foam dressing. Change every other day and PRN. Left ischium - intact blanchable redness noted - protective preventative foam applied and recommended to continue. Details from previous assessment: The patient was in ICU level of care and transitioned to [facility]. The Right Ischial and Ankle wounds were [facility]. The chart review reveals no significant gaps in care were noted however the patient did experience considerable Thrombocytopenia with levels of 53 for a few days. Bilateral ischium were noted for redness and scar tissue on admission recommended Foam application for prevention. Right Ischium Right Lateral Ankle Right Ankle and Right Ischium Etiology: ??Unlear Etiology: Purpura vs Deep Tissue Injury Wound Bed: dark maroon purple nonblanchable tissue Edges: ?irregular and attached - epidermal lifting noted to Right ischium Bonny wound: intact Scar tissue noted Goals of Treatment: ? Off load pressure skin prep and foam dressing [facility] nurse will continue to follow. Picture from admission Sacrum / Coccyx Etiology: ??Stage 4 Pressure Injury Present on Admission Wound Bed: clean moist red pink tissue Edges: ?epibole Bonny wound: maceration noted - Scar tissue noted Goals of Treatment: ? Moist wound healing - Moisture management with Alginate and off load pressure Recommendations: 1. Turn and Reposition every 2 hours and as needed for patient comfort.? Use pillows or wedges to support off loading positions. 2. Off Load all bony prominences with use of pillows and heel boots if needed.? Apply Preventative foams where needed. ? 3. Monitor for incontinence and moisture control, use barrier creams when needed for prevention and treatment. 4. Provide adequate and supplemental nutrition. 5. Order or Continue low air loss mattress. 6. Sacrum / Coccyx - Cleanse and irrigate with NS, Pat dry.? Apply skin prep to periwound, cover wound bed with Alginate (Durafiber AG).? Cover with Foam dressing.? Change every other day and PRN. 7. Bilateral ischium and Right Lateral Ankle - Cleanse with NS moist gauze, pat dry. Apply skin prep - protective foam to be applied and Q2hr turns with pillows. Change every 3 days and PRN. Recommend follow up out patient Wound Clinic at [address] [place] [id number] and to call for an appointment at time of discharge. [phone].?
--- NOTE | 2024-04-28 10:23 | MHC.SL.SWA ---
Speech Pathologist Impression: Risk of Aspiration, Oropharyngeal Dysphagia Risk of Aspiration Due to: Neurological Condition Reduced Cognition Dysphasia Diet Status: Recommend continue on PUREE (NDD1) with HONEY THICK liquids pills crushed in puree, 1-1 feeding. Diet continues to be recommended for next level of care. Liquid Consistency and Strategies for Safe Swallow: Liquid Intake Recommendation: Honey Thick Liquid Intake Strategies: Small Sips No Straws Solid Food Consistency: Dietary Recommendations: Pureed (NDD1) Additional Modifications to Solid Foods: Continue diet of PUREED solids (NDD1) and HONEY THICK liquids w/ 1:1 feeding and aspiration precautions: ensure optimal upright positioning, administer small bites/sips, feeding w/ slow pace, watch for swallow and check oral cavity for clearance, present dry spoon to encourage dry swallows between bites/sips. Minimize distractions during mealtime. Oral Medication Intake: Whole with Puree Please contact the pharmacy regarding appropriate crushable or liquid drug formulations that are available whenever modified delivery is recommended. Compensatory Strategies and Precautions to be Taken for Safe Swallow: Sitting Upright (90 deg) No Straw Small Bites and Sips Rate of Ingestion Change Oral Check Supervision While Eating and Drinking for Safe Swallow: Total Assistance (1:1) Foods to Avoid: Mixed consistencies Swallowing Recommended Treatments: Compens. Strategy Educat. Recommendation for Speech: Inpatient Speech Therapy Speech Therapy through Rehab Facility Comment: Patient is LTC resident at [facility], hx of dementia and CVA with residual right sided deficits Frequency/Duration: M-F while inpatient Date Range for Service Req: Timeline to reassess: PRN Home Service Advisor Clinican/Clinical Fellow: No Supervisory Statement: I have reviewed and agree with the student/clinical fellow's documentation: N/A Speech Language Pathologist: Danielle Avery M.A., CCC-PIPING DRAFTER
[2024-04-28] MEDS: Dextrose 5 % 1,000 ML 80 ML IVCONT (10:26)
--- NOTE | 2024-04-28 11:03 | MHC.CM.PN ---
[facility] is unable to accept Patient without a 3 midnight stay in ICU, per insurance requirements. Patient will continue to receive his IV ABT with the goal of returning to LTC (Bed hold) at [facility], once IV ABT is completed. CM will follow.
--- NOTE | 2024-04-28 13:31 | MHC.CLN ---
F/U PO INTAKE REMAINS VARIABLE DIET RX: PUREED WITH HT LIQ PT RECEIVING ENSURE TID PROVIDES 1050KCALS, 60G PROTEIN CONTINUE TO MONITOR PO INTAKE AND ENCOURAGE SUPPLEMENT FOR WOUND HEALING
--- NOTE | 2024-04-28 14:10 | P.PNIM_ITS ---
Subjective Subjective Date of Service: 04/28/24 Interval History: seen and examined this morning follow up for resistant UTI pt nonverbal, shakes head yes and no sometimes appears comfortable Physical Exam 2 Vital Signs: Vital Signs: Last Vital Signs Temp 98.1 F 04/28/24 07:16 Pulse 56 04/28/24 07:16 Resp 16 04/28/24 07:16 BP 108/65 04/28/24 07:16 Pulse Ox 97 04/28/24 07:16 O2 Del Method Room Air 04/28/24 07:16 BMI result Body Mass Index 27.4 Const: Other: eyes open and track, answers some yes/no questions by shaking head General: alert and awake Resp: Effort & Inspection: normal respiratory effort, able to speak in complete sentences, no respiratory distress and no use of accessory muscles : Other: r nephrostomy tube in place Extrem: Other: off loading boots Objective Data Active Medications Atorvastatin Calcium (Atorvastatin Calcium 80 Mg Tablet) 80 mg PO DAILY [facility] Last Admin: 04/28/24 09:29 Dose: 80 mg Documented By: CAROLINA Ferrous Sulfate (Ferrous Sulfate 324 Mg Tablet.Dr) 324 mg PO DAILY [facility] Last Admin: 04/28/24 09:29 Dose: 324 mg Documented By: CAROLINA Gabapentin (Gabapentin 300 Mg Capsule) 300 mg PO BEDTIME [facility] Last Admin: 04/27/24 21:21 Dose: 300 mg Documented By: STELLA Dextrose (D5w) 1,000 mls @ 80 mls/hr IVCONT .[id number] [facility] Stop: 04/28/24 22:29 Last Admin: 04/28/24 10:26 Dose: 80 mls/hr Documented By: CAROLINA Levetiracetam (Levetiracetam Oral Soln 500 Mg/5 Ml) 250 mg PO BID [facility] Last Admin: 04/28/24 09:29 Dose: 250 mg Documented By: CAROLINA Losartan Potassium (Losartan Potassium 50 Mg Tablet) 100 mg PO DAILY [facility]; Protocol Last Admin: 04/28/24 09:29 Dose: 100 mg Documented By: CAROLINA Meropenem (Meropenem 1 Gm Vial) 1 gm IVPUSH Q8H [facility] Last Admin: 04/28/24 09:31 Dose: 1 gm Documented By: CAROLINA Rivaroxaban (Rivaroxaban 20 Mg Tablet) 20 mg PO DAILY@1700 [facility] Last Admin: 04/27/24 17:19 Dose: 20 mg Documented By: CAROLINA Sodium Chloride (0.9 % Sodium Chloride Flush 3 Ml Syringe) 3 ml IVFLUSH QSHIFT [facility] Last Admin: 04/28/24 09:30 Dose: 3 ml Documented By: CAROLINA Tamsulosin HCl (Tamsulosin Hcl 0.4 Mg Capsule) 0.4 mg PO BEDTIME [facility] Last Admin: 04/27/24 21:21 Dose: 0.4 mg Documented By: STELLA Labs 04/27/24 08:59 04/28/24 06:25 Labs: Laboratory Results - last 24 hr 04/28/24 06:25 Hold Purple Top SEE NOTE Estim Creat Clear Calc 79.4 Estimated GFR > 60 Microbiology Microbiology Results: Microbiology 04/22/24 15:41 Blood Culture - Final Blood - Venous No growth after 5 days. 04/22/24 15:41 Blood Culture - Final Blood - Venous No growth after 5 days. Assessment and Plan (1) UTI due to extended-spectrum beta lactamase (ESBL) producing Escherichia coli: Status: Acute (2) E coli bacteremia: Status: Acute Plan 68yo M LTC resident of [facility], nonverbal with history of vascular dementia, CVA with R-sided hemiparesis, neurogenic bladder with chronic SPT, stage 4 sacral decubitus ulcer, hx C. difficile colitis, seizure disorder, HTN, HLD, reportedly no urinary output for 8 days prior to admission. Pt presented to ED with abdominal pain. patient with poor response to IVF and required admission to the ICU for pressor support. Septic shock due to ESBL e.coli UTI and ecoli/proteus bactermia weaned off pressors leukocytosis resolved blood cultures negative to date ID consult>14 days abx meropenam initiated 04/26 (called lab to confirm sensitivity)- end date 05/12 Reed placed 04/25 CT showed Right perinephic stranding Right staghorn calculus, ureteral stones mild hydro- chronic, similar findings in september renal fxn stable, repeat lactic acid normal. Ureteral stent was considered, however due to the position of staghorn calculus will likely limit adequate placement. manage conservatively for now. indwelling right PCN. mild hypernatremia will give gentle IVF repeat BMP in am h/o cva with residual right side paresis and neurogenic bladder Seen by speech therapy recommend NDD 1 diet with honey thick liquids, pills crushed in puree aspiration precautions h/o seizure d/o resume keppra acute on chronic normocytic anemia no evidence of acute blood loss improved today without intervention ?component of dilution stool occult neg thrombocytopenia due to sepsis, resolved PAF continue xarelto hypokalemia improved with replacement stage 4 pressure injury of sacrum/coccyx. poa continue local wound care HTN losartan resumed bp stable dvt ppx - on xarelto awaiting placement for iv antibiotic management Quality Stroke Does the patient have a stroke diagnosis?: No VTE Prior VTE?: No VTE Risk Level:: Medical - moderate - high VTE Device Contraindication: Treatment Not Indicated VTE Drug Contraindication: N/A - Med Ordered
[2024-04-28 15:07] VITALS: BP 91/54; PULSE 71; RESP 16; TEMP 36.7; O2SAT 98
[2024-04-28] MEDS: Rivaroxaban 20 MG TABLET PO (16:21)
[2024-04-28 19:58] VITALS: BP 128/85; PULSE 72; RESP 16; TEMP 37.7; O2SAT 98
[2024-04-28] MEDS: Gabapentin 300 MG CAPSULE PO (21:53)
[2024-04-28] MEDS: Tamsulosin HCL 0.4 MG CAPSULE PO (21:53)
[2024-04-29 04:00] VITALS: BP 107/61; PULSE 56; RESP 16; TEMP 36.4; O2SAT 100
[2024-04-29 07:10] VITALS: BP 105/63; PULSE 56; RESP 18; TEMP 36.5; O2SAT 98
[2024-04-29 08:02] LABS: Hemoglobin 8.8 g/dl (14.0-18.0); Mean Corpuscular HGB Conc 33.8 g/dl (31.0-36.0); Mean Corpuscular Hemoglobin 32.6 pg (27.0-33.0); Mean Corpuscular Volume 96.3 fL (80.0-98.0); Mean Platelet Volume 9.8 fL (9.4-12.4); Platelet Count 211 X10*3/uL (160-400); Red Cell Distribution Width 14.4 % (11.0-16.0); White Blood Count 4.1 X10*3/uL (4.8-10.8)
[2024-04-29 08:23] LABS: Anion Gap 10 (12-20); Blood Urea Nitrogen 19 mg/dL (9-16); Calcium 8.5 mg/dL (8.4-10.2); Carbon Dioxide 27 mmol/L (22-29); Chloride 107 mmol/L (96-108); Creatinine Clr Calc Pharmacy 80.4; Estimated Glomerular Filt Rate > 60; Glucose Random 101 mg/dL (60-115); Potassium 3.5 mmol/L (3.3-5.1); Sodium 140 mmol/L (135-145)
[2024-04-29] MEDS: 0.9 % Sodium Chloride Flush 3 ML SYRINGE IVFLUSH ×3 (10:20→21:20)
[2024-04-29] MEDS: levETIRAcetam Oral Soln 500 MG/5 ML 250 MG PO ×2 (10:21→21:19)
[2024-04-29] MEDS: Meropenem 1 GM VIAL IVPUSH ×2 (10:21→16:35)
[2024-04-29] MEDS: Ferrous Sulfate 324 MG TABLET.DR PO (10:22)
[2024-04-29] MEDS: Atorvastatin Calcium 80 MG TABLET PO (10:22)
[2024-04-29] MEDS: Losartan Potassium 50 MG TABLET 100 MG PO (10:22)
--- NOTE | 2024-04-29 10:33 | P.PNIM_ITS ---
Subjective Subjective Date of Service: 04/29/24 Interval History: seen and examined this morning awake, alert, nonverbal; sitting up in bed; shakes head yes/no Physical Exam 2 Vital Signs: Vital Signs: Last Vital Signs Temp 97.7 F 04/29/24 07:10 Pulse 56 04/29/24 07:10 Resp 18 04/29/24 07:10 BP 105/63 04/29/24 07:10 Pulse Ox 98 04/29/24 07:10 O2 Del Method Room Air 04/29/24 07:10 BMI result Body Mass Index 27.4 Const: Other: eyes open and track, answers some yes/no questions by shaking head General: alert and awake Resp: Effort & Inspection: normal respiratory effort, able to speak in complete sentences, no respiratory distress and no use of accessory muscles GI: Inspection: No distended Palpation (GI): Soft to palpation : Other: r nephrostomy tube in place Extrem: Other: off loading boots Objective Data Active Medications Atorvastatin Calcium (Atorvastatin Calcium 80 Mg Tablet) 80 mg PO DAILY [facility] Last Admin: 04/28/24 09:29 Dose: 80 mg Documented By: CAROLINA Ferrous Sulfate (Ferrous Sulfate 324 Mg Tablet.) 324 mg PO DAILY [facility] Last Admin: 04/28/24 09:29 Dose: 324 mg Documented By: CAROLINA Gabapentin (Gabapentin 300 Mg Capsule) 300 mg PO BEDTIME [facility] Last Admin: 04/28/24 21:53 Dose: 300 mg Documented By: ISATU Levetiracetam (Levetiracetam Oral Soln 500 Mg/5 Ml) 250 mg PO BID [facility] Last Admin: 04/28/24 21:53 Dose: 250 mg Documented By: ISATU Losartan Potassium (Losartan Potassium 50 Mg Tablet) 100 mg PO DAILY [facility]; Protocol Last Admin: 04/28/24 09:29 Dose: 100 mg Documented By: CAROLINA Meropenem (Meropenem 1 Gm Vial) 1 gm IVPUSH Q8H [facility] Last Admin: 04/28/24 23:37 Dose: 1 gm Documented By: ISATU Rivaroxaban (Rivaroxaban 20 Mg Tablet) 20 mg PO DAILY@1700 [facility] Last Admin: 04/28/24 16:21 Dose: 20 mg Documented By: CAROLINA Sodium Chloride (0.9 % Sodium Chloride Flush 3 Ml Syringe) 3 ml IVFLUSH QSHIFT [facility] Last Admin: 04/28/24 21:54 Dose: 3 ml Documented By: ISATU Tamsulosin HCl (Tamsulosin Hcl 0.4 Mg Capsule) 0.4 mg PO BEDTIME [facility] Last Admin: 04/28/24 21:53 Dose: 0.4 mg Documented By: ISATU Labs 04/29/24 07:48 04/29/24 07:48 Labs: Laboratory Results - last 24 hr 04/29/24 07:48 MCV 96.3 MCH 32.6 MCHC 33.8 RDW 14.4 Plt Count 211 MPV 9.8 Absolute Nucleated RBC 0.000 Nucleated RBC % (auto) 0.0 Anion Gap 10 L Estim Creat Clear Calc 80.4 Estimated GFR > 60 Random Glucose 101 Calcium 8.5 D Assessment and Plan (1) UTI due to extended-spectrum beta lactamase (ESBL) producing Escherichia coli: Status: Acute Plan 68yo M LTC resident of [facility], nonverbal with history of vascular dementia, CVA with R-sided hemiparesis, neurogenic bladder with chronic SPT, stage 4 sacral decubitus ulcer, hx C. difficile colitis, seizure disorder, HTN, HLD, reportedly no urinary output for 8 days prior to admission. Pt presented to ED with abdominal pain. patient with poor response to IVF and required admission to the ICU for pressor support. Septic shock due to ESBL e.coli UTI and ecoli/proteus bactermia weaned off pressors leukocytosis resolved blood cultures negative to date ID consult>14 days abx recommended, meropenem initiated 04/22 (confirmed start date with pharmacy as previously documented as 04/26), discussed with ID as pt clinically improved on cefepime ok to include 04/19-04/21 in antibiotic treatment; has received IV abx 04/19 to date, day 10, updated end date 05/03 Reed placed 04/25, will need to be removed prior to discharge CT showed Right perinephric stranding Right staghorn calculus, ureteral stones mild hydro- chronic, similar findings in september renal fxn stable, repeat lactic acid normal. Ureteral stent was considered, however due to the position of staghorn calculus will likely limit adequate placement. manage conservatively for now. indwelling right PCN. mild hypernatremia resolved with IVF h/o cva with residual right side paresis and neurogenic bladder Seen by speech therapy recommend NDD 1 diet with honey thick liquids, pills crushed in puree aspiration precautions h/o seizure d/o resume keppra acute on chronic normocytic anemia no evidence of acute blood loss improved without intervention ?component of dilution stool occult neg thrombocytopenia due to sepsis, resolved PAF continue xarelto hypokalemia improved with replacement stage 4 pressure injury of sacrum/coccyx. poa continue local wound care HTN losartan resumed bp stable dvt ppx - on xarelto awaiting placement for iv antibiotic management Quality Stroke Does the patient have a stroke diagnosis?: No VTE Prior VTE?: No VTE Risk Level:: Medical - moderate - high VTE Device Contraindication: Treatment Not Indicated VTE Drug Contraindication: N/A - Med Ordered
[2024-04-29 15:51] VITALS: BP 90/65; PULSE 76; RESP 18; TEMP 36.5; O2SAT 98
[2024-04-29] MEDS: Rivaroxaban 20 MG TABLET PO (16:35)
[2024-04-29 19:45] VITALS: BP 108/75; PULSE 75; RESP 18; TEMP 36.8; O2SAT 95
[2024-04-29] MEDS: Tamsulosin HCL 0.4 MG CAPSULE PO (21:19)
[2024-04-29] MEDS: Gabapentin 300 MG CAPSULE PO (21:19)
[2024-04-30] MEDS: Meropenem 1 GM VIAL IVPUSH ×4 (00:16→23:03)
[2024-04-30 03:31] VITALS: BP 100/63; PULSE 69; RESP 18; TEMP 36.4; O2SAT 98
[2024-04-30 07:32] VITALS: BP 106/62; PULSE 61; RESP 20; TEMP 36.7; O2SAT 99
[2024-04-30 07:47] LABS: Creatinine Clr Calc Pharmacy 81.4; Estimated Glomerular Filt Rate > 60
[2024-04-30] MEDS: 0.9 % Sodium Chloride Flush 3 ML SYRINGE IVFLUSH ×3 (09:00→22:58)
[2024-04-30] MEDS: levETIRAcetam Oral Soln 500 MG/5 ML 250 MG PO ×2 (09:00→22:57)
[2024-04-30] MEDS: Ferrous Sulfate 324 MG TABLET.DR PO (09:00)
[2024-04-30] MEDS: Losartan Potassium 50 MG TABLET 100 MG PO (09:00)
[2024-04-30] MEDS: Atorvastatin Calcium 80 MG TABLET PO (09:00)
--- NOTE | 2024-04-30 12:05 | P.PNIM_ITS ---
Subjective Subjective Date of Service: 04/30/24 Interval History: seen and examined this morning follow up for resistant uti nonverrbal, shakes head to answer some questions appears comfortable Physical Exam 2 Vital Signs: Vital Signs: Last Vital Signs Temp 98.0 F 04/30/24 07:32 Pulse 61 04/30/24 07:32 Resp 20 04/30/24 07:32 BP 106/62 04/30/24 07:32 Pulse Ox 99 04/30/24 07:32 O2 Del Method Room Air 04/30/24 07:32 BMI result Body Mass Index 27.4 Const: Other: eyes open and track, answers some yes/no questions by shaking head General: alert and awake Resp: Effort & Inspection: normal respiratory effort, able to speak in complete sentences, no respiratory distress and no use of accessory muscles GI: Inspection: No distended Palpation (GI): Soft to palpation : Other: r nephrostomy tube in place Skin: Other: reed right side Extrem: Other: off loading boots Objective Data Active Medications Atorvastatin Calcium (Atorvastatin Calcium 80 Mg Tablet) 80 mg PO DAILY [facility] Last Admin: 04/30/24 09:00 Dose: 80 mg Documented By: FELICE Ferrous Sulfate (Ferrous Sulfate 324 Mg Tablet.) 324 mg PO DAILY [facility] Last Admin: 04/30/24 09:00 Dose: 324 mg Documented By: FELICE Gabapentin (Gabapentin 300 Mg Capsule) 300 mg PO BEDTIME [facility] Last Admin: 04/29/24 21:19 Dose: 300 mg Documented By: ISATU Levetiracetam (Levetiracetam Oral Soln 500 Mg/5 Ml) 250 mg PO BID [facility] Last Admin: 04/30/24 09:00 Dose: 250 mg Documented By: FELICE Losartan Potassium (Losartan Potassium 50 Mg Tablet) 100 mg PO DAILY [facility]; Protocol Last Admin: 04/30/24 09:00 Dose: 100 mg Documented By: FELICE Meropenem (Meropenem 1 Gm Vial) 1 gm IVPUSH Q8H [facility] Last Admin: 04/30/24 09:00 Dose: 1 gm Documented By: FELICE Rivaroxaban (Rivaroxaban 20 Mg Tablet) 20 mg PO DAILY@1700 [facility] Last Admin: 04/29/24 16:35 Dose: 20 mg Documented By: RAFAEL Sodium Chloride (0.9 % Sodium Chloride Flush 3 Ml Syringe) 3 ml IVFLUSH QSHIFT [facility] Last Admin: 04/30/24 09:00 Dose: 3 ml Documented By: FELICE Tamsulosin HCl (Tamsulosin Hcl 0.4 Mg Capsule) 0.4 mg PO BEDTIME [facility] Last Admin: 04/29/24 21:19 Dose: 0.4 mg Documented By: TATIANA-JOHNO Labs 04/29/24 07:48 04/30/24 07:02 Labs: Laboratory Results - last 24 hr 04/30/24 07:02 Hold Purple Top SEE NOTE Estim Creat Clear Calc 81.4 Estimated GFR > 60 Assessment and Plan (1) UTI due to extended-spectrum beta lactamase (ESBL) producing Escherichia coli: Status: Acute Plan 68yo M LTC resident of [facility], nonverbal with history of vascular dementia, CVA with R-sided hemiparesis, neurogenic bladder with chronic SPT, stage 4 sacral decubitus ulcer, hx C. difficile colitis, seizure disorder, HTN, HLD, reportedly no urinary output for 8 days prior to admission. Pt presented to ED with abdominal pain. patient with poor response to IVF and required admission to the ICU for pressor support. Septic shock due to ESBL e.coli UTI and ecoli/proteus bactermia weaned off pressors leukocytosis resolved blood cultures negative to date ID consult>14 days abx recommended, meropenem initiated 04/22 (confirmed start date with pharmacy as previously documented as 04/26), discussed with ID as pt clinically improved on cefepime ok to include 04/19-04/21 in antibiotic treatment; has received IV abx 04/19 to date, day 01/05, updated end date 05/03 Reed placed 04/25, will need to be removed prior to discharge CT showed Right perinephric stranding Right staghorn calculus, ureteral stones mild hydro- chronic, similar findings in september renal fxn stable, repeat lactic acid normal. Ureteral stent was considered, however due to the position of staghorn calculus will likely limit adequate placement. manage conservatively for now. indwelling right PCN. mild hypernatremia resolved with IVF h/o cva with residual right side paresis and neurogenic bladder Seen by speech therapy recommend NDD 1 diet with honey thick liquids, pills crushed in puree aspiration precautions h/o seizure d/o resume keppra acute on chronic normocytic anemia no evidence of acute blood loss improved without intervention ?component of dilution stool occult neg thrombocytopenia due to sepsis, resolved PAF continue xarelto hypokalemia improved with replacement stage 4 pressure injury of sacrum/coccyx. poa continue local wound care HTN losartan resumed bp stable dvt ppx - on xarelto dispo - return to [facility] care Quality Stroke Does the patient have a stroke diagnosis?: No VTE Prior VTE?: No VTE Risk Level:: Medical - moderate - high VTE Device Contraindication: Treatment Not Indicated VTE Drug Contraindication: N/A - Med Ordered
[2024-04-30 15:21] VITALS: BP 98/64; PULSE 63; RESP 18; TEMP 37.2; O2SAT 99
[2024-04-30] MEDS: Rivaroxaban 20 MG TABLET PO (16:03)
[2024-04-30 20:00] VITALS: BP 98/68; PULSE 64; RESP 18; TEMP 36.4; O2SAT 94
[2024-04-30] MEDS: Tamsulosin HCL 0.4 MG CAPSULE PO (22:57)
[2024-04-30] MEDS: Gabapentin 300 MG CAPSULE PO (22:57)
[2024-05-01 04:00] VITALS: BP 99/63; PULSE 65; RESP 16; TEMP 36.7; O2SAT 97
[2024-05-01 08:00] VITALS: BP 91/51; PULSE 73; RESP 20; TEMP 36.8; O2SAT 98
[2024-05-01] MEDS: Atorvastatin Calcium 80 MG TABLET PO (09:50)
[2024-05-01] MEDS: Ferrous Sulfate 324 MG TABLET.DR PO (09:50)
[2024-05-01] MEDS: Meropenem 1 GM VIAL IVPUSH ×3 (09:51→23:59)
[2024-05-01] MEDS: levETIRAcetam Oral Soln 500 MG/5 ML 250 MG PO ×2 (09:51→20:20)
[2024-05-01] MEDS: 0.9 % Sodium Chloride Flush 3 ML SYRINGE IVFLUSH ×3 (09:52→20:21)
[2024-05-01 09:57] VITALS: BP 91/51
--- NOTE | 2024-05-01 10:52 | MHC.CM.PN ---
Per ROUNDS discussion, IV ABT end date is 05/03/2024 and goal will be for Patient to return to LTC @ [facility] later on that day. CM will follow.
--- NOTE | 2024-05-01 11:31 | HO.PM.IMPN ---
Subjective Subjective Date of Service: 05/01/24 Interval History: seen and examined this morning follow up for resistant uti nonverrbal, shakes head to answer some questions appears comfortable Physical Exam Vital Signs: Vital Signs: Last Vital Signs Temp 98.3 F 05/01/24 08:00 Pulse 73 05/01/24 08:00 Resp 20 05/01/24 08:00 BP 91/51 L 05/01/24 09:57 Pulse Ox 98 05/01/24 08:00 O2 Del Method Room Air 05/01/24 08:00 BMI result Body Mass Index 27.4 Appearing in no acute distress lung sounds are clear to auscultation heart regular rate rhythm, clear S1, S2 positive bowel sounds, abdomen is soft, nontender neuro patient is alert, nonverbal contractures Objective Data Active Medications Atorvastatin Calcium (Atorvastatin Calcium 80 Mg Tablet) 80 mg PO DAILY [facility] Last Admin: 05/01/24 09:50 Dose: 80 mg Documented By: ANGIE Ferrous Sulfate (Ferrous Sulfate 324 Mg Tablet.) 324 mg PO DAILY [facility] Last Admin: 05/01/24 09:50 Dose: 324 mg Documented By: ANGIE Gabapentin (Gabapentin 300 Mg Capsule) 300 mg PO BEDTIME [facility] Last Admin: 04/30/24 22:57 Dose: 300 mg Documented By: TATIANA-СЕРГЕЙ Levetiracetam (Levetiracetam Oral Soln 500 Mg/5 Ml) 250 mg PO BID [facility] Last Admin: 05/01/24 09:51 Dose: 250 mg Documented By: ANGIE Losartan Potassium (Losartan Potassium 50 Mg Tablet) 100 mg PO DAILY [facility]; Protocol Last Admin: 05/01/24 09:57 Dose: Not Given Documented By: ANGIE Non-Admin Reason: Physician Held Med Meropenem (Meropenem 1 Gm Vial) 1 gm IVPUSH Q8H [facility] Last Admin: 05/01/24 09:51 Dose: 1 gm Documented By: ANGIE Rivaroxaban (Rivaroxaban 20 Mg Tablet) 20 mg PO DAILY@1700 [facility] Last Admin: 04/30/24 16:03 Dose: 20 mg Documented By: RIOSCEL Sodium Chloride (0.9 % Sodium Chloride Flush 3 Ml Syringe) 3 ml IVFLUSH QSHIFT [facility] Last Admin: 05/01/24 09:52 Dose: 3 ml Documented By: ANGIE Tamsulosin HCl (Tamsulosin Hcl 0.4 Mg Capsule) 0.4 mg PO BEDTIME [facility] Last Admin: 04/30/24 22:57 Dose: 0.4 mg Documented By: ISATU Labs 04/29/24 07:48 04/30/24 07:02 Assessment and Plan (1) UTI due to extended-spectrum beta lactamase (ESBL) producing Escherichia coli: Status: Acute Plan 68yo M LTC resident of [facility], nonverbal with history of vascular dementia, CVA with R-sided hemiparesis, neurogenic bladder with chronic SPT, stage 4 sacral decubitus ulcer, hx C. difficile colitis, seizure disorder, HTN, HLD, reportedly no urinary output for 8 days prior to admission. Pt presented to ED with abdominal pain. patient with poor response to IVF and required admission to the ICU for pressor support. Septic shock due to ESBL e.coli UTI and ecoli/proteus bactermia weaned off pressors leukocytosis resolved blood cultures negative to date ID consult>14 days abx recommended, meropenem initiated 04/22 (confirmed start date with pharmacy as previously documented as 04/26), discussed with ID as pt clinically improved on cefepime ok to include 04/19-04/21 in antibiotic treatment; has received IV abx 04/19 to date, updated end date 05/03 Reed placed 04/25, will need to be removed prior to discharge CT showed Right perinephric stranding Right staghorn calculus, ureteral stones mild hydro- chronic, similar findings in september renal fxn stable, repeat lactic acid normal. Ureteral stent was considered, however due to the position of staghorn calculus will likely limit adequate placement. manage conservatively for now. indwelling right PCN. mild hypernatremia resolved with IVF h/o cva with residual right side paresis and neurogenic bladder Seen by speech therapy recommend NDD 1 diet with honey thick liquids, pills crushed in puree aspiration precautions h/o seizure d/o resume keppra acute on chronic normocytic anemia no evidence of acute blood loss improved without intervention ?component of dilution stool occult neg thrombocytopenia due to sepsis, resolved PAF continue xarelto hypokalemia improved with replacement stage 4 pressure injury of sacrum/coccyx. poa continue local wound care HTN losartan resumed bp stable dvt ppx - on xarelto dispo - [facility] Quality Stroke Does the patient have a stroke diagnosis?: No VTE Prior VTE?: No VTE Risk Level:: Medical - moderate - high VTE Device Contraindication: Treatment Not Indicated VTE Drug Contraindication: N/A - Med Ordered
--- NOTE | 2024-05-01 14:12 | MHC.SL.SWA ---
Speech Pathologist Impression: Moderate oropharyngeal dysphagia *(pre-existing) Risk of Aspiration Due to: Neurological Condition Reduced Cognition Hx of dysphagia Dysphasia Diet Status: Recommend continue on PUREE (NDD1) with HONEY THICK liquids pills crushed in puree, 1-1 feeding. Diet continues to be recommended for next level of care. Liquid Consistency and Strategies for Safe Swallow: Liquid Intake Recommendation: Honey Thick Liquid Intake Strategies: Small Sips No Straws Solid Food Consistency: Dietary Recommendations: Pureed (NDD1) Additional Modifications to Solid Foods: Continue diet of PUREED solids (NDD1) and HONEY THICK liquids w/ 1:1 feeding and aspiration precautions: ensure optimal upright positioning, administer small bites/sips, feeding w/ slow pace, watch for swallow and check oral cavity for clearance, present dry spoon to encourage dry swallows between bites/sips. Minimize distractions during mealtime. Oral Medication Intake: Crushed with Puree Please contact the pharmacy regarding appropriate crushable or liquid drug formulations that are available whenever modified delivery is recommended. Compensatory Strategies and Precautions to be Taken for Safe Swallow: Sitting Upright (90 deg) No Straw Small Bites and Sips Rate of Ingestion Change Oral Check Supervision While Eating and Drinking for Safe Swallow: Total Assistance (1:1) Foods to Avoid: Mixed consistencies Swallowing Recommended Treatments: Compens. Strategy Educat. Recommendation for Speech: Inpatient Speech Therapy Speech Therapy through Rehab Facility Comment: Patient is LTC resident at [facility], hx of dementia and CVA with residual right sided deficits. Pending d/c, plan is to return to LTC if possible. Pt continues to need 1:1 feeding and modified diet to reduce risk for aspiration in setting of dysphagia. Frequency/Duration: M-F while inpatient Date Range for Service Req: Timeline to reassess: PRN Acute Care Physician Clinican/Clinical Fellow: No Supervisory Statement: I have reviewed and agree with the student/clinical fellow's documentation: N/A Speech Language Pathologist: Iliana Mcdaniels M.S., CCC-POT FIRER
[2024-05-01 16:34] VITALS: BP 127/73; PULSE 72; RESP 16; TEMP 37.1; O2SAT 94
[2024-05-01] MEDS: Rivaroxaban 20 MG TABLET PO (16:35)
[2024-05-01 18:51] VITALS: BP 107/63; PULSE 64; RESP 17; TEMP 36.5; O2SAT 99
[2024-05-01] MEDS: Gabapentin 300 MG CAPSULE PO (20:20)
[2024-05-01] MEDS: Tamsulosin HCL 0.4 MG CAPSULE PO (20:20)
[2024-05-02 03:47] VITALS: BP 108/60; PULSE 62; RESP 16; TEMP 36.3; O2SAT 96
--- NOTE | 2024-05-02 07:20 | P.PNIM_ITS ---
Subjective Subjective Date of Service: 05/02/24 Interval History: seen and examined this morning follow up for resistant uti nonverrbal, shakes head to answer some questions appears comfortable Physical Exam 2 Vital Signs: Vital Signs: Last Vital Signs Temp 97.4 F 05/02/24 03:47 Pulse 62 05/02/24 03:47 Resp 16 05/02/24 03:47 BP 108/60 05/02/24 03:47 Pulse Ox 96 05/02/24 03:47 O2 Del Method Room Air 05/02/24 03:47 BMI result Body Mass Index 27.4 Appearing in no acute distress lung sounds are clear to auscultation heart regular rate rhythm, clear S1, S2 positive bowel sounds, abdomen is soft, nontender neuro patient is alert, nonverbal Objective Data Active Medications Atorvastatin Calcium (Atorvastatin Calcium 80 Mg Tablet) 80 mg PO DAILY [facility] Last Admin: 05/01/24 09:50 Dose: 80 mg Documented By: ANGIE Ferrous Sulfate (Ferrous Sulfate 324 Mg Tablet.) 324 mg PO DAILY [facility] Last Admin: 05/01/24 09:50 Dose: 324 mg Documented By: ANGIE Gabapentin (Gabapentin 300 Mg Capsule) 300 mg PO BEDTIME [facility] Last Admin: 05/01/24 20:20 Dose: 300 mg Documented By: MONTRELL Levetiracetam (Levetiracetam Oral Soln 500 Mg/5 Ml) 250 mg PO BID [facility] Last Admin: 05/01/24 20:20 Dose: 250 mg Documented By: MONTRELL Losartan Potassium (Losartan Potassium 50 Mg Tablet) 100 mg PO DAILY [facility]; Protocol Last Admin: 05/01/24 09:57 Dose: Not Given Documented By: ANGIE Non-Admin Reason: Physician Held Med Meropenem (Meropenem 1 Gm Vial) 1 gm IVPUSH Q8H [facility] Last Admin: 05/01/24 23:59 Dose: 1 gm Documented By: MONTRELL Rivaroxaban (Rivaroxaban 20 Mg Tablet) 20 mg PO DAILY@1700 [facility] Last Admin: 05/01/24 16:35 Dose: 20 mg Documented By: ANGIE Sodium Chloride (0.9 % Sodium Chloride Flush 3 Ml Syringe) 3 ml IVFLUSH QSHIFT [facility] Last Admin: 05/01/24 20:21 Dose: 3 ml Documented By: MONTRELL Tamsulosin HCl (Tamsulosin Hcl 0.4 Mg Capsule) 0.4 mg PO BEDTIME [facility] Last Admin: 05/01/24 20:20 Dose: 0.4 mg Documented By: MONTRELL Labs 04/29/24 07:48 04/30/24 07:02 Assessment and Plan (1) UTI due to extended-spectrum beta lactamase (ESBL) producing Escherichia coli: Status: Acute Plan 68yo M LTC resident of [facility], nonverbal with history of vascular dementia, CVA with R-sided hemiparesis, neurogenic bladder with chronic SPT, stage 4 sacral decubitus ulcer, hx C. difficile colitis, seizure disorder, HTN, HLD, reportedly no urinary output for 8 days prior to admission. Pt presented to ED with abdominal pain. patient with poor response to IVF and required admission to the ICU for pressor support. Septic shock due to ESBL e.coli UTI and ecoli/proteus bactermia weaned off pressors leukocytosis resolved blood cultures negative to date ID consult>14 days abx recommended, meropenem initiated 04/22 (confirmed start date with pharmacy as previously documented as 04/26), discussed with ID as pt clinically improved on cefepime ok to include 04/19-04/21 in antibiotic treatment; has received IV abx 04/19 to date, updated end date 05/03 Reed placed 04/25, will need to be removed prior to discharge CT showed Right perinephric stranding Right staghorn calculus, ureteral stones mild hydro- chronic, similar findings in september renal fxn stable, repeat lactic acid normal. Ureteral stent was considered, however due to the position of staghorn calculus will likely limit adequate placement. manage conservatively for now. indwelling right PCN. mild hypernatremia resolved with IVF h/o cva with residual right side paresis and neurogenic bladder Seen by speech therapy recommend NDD 1 diet with honey thick liquids, pills crushed in puree aspiration precautions h/o seizure d/o resume keppra acute on chronic normocytic anemia no evidence of acute blood loss improved without intervention ?component of dilution stool occult neg thrombocytopenia due to sepsis, resolved PAF continue xarelto hypokalemia improved with replacement stage 4 pressure injury of sacrum/coccyx. 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
[2024-05-02 07:28] VITALS: BP 102/62; PULSE 57; RESP 18; TEMP 36.2; O2SAT 99
[2024-05-02] MEDS: 0.9 % Sodium Chloride Flush 3 ML SYRINGE IVFLUSH ×2 (07:37→15:59)
[2024-05-02] MEDS: Meropenem 1 GM VIAL IVPUSH ×2 (07:37→15:57)
[2024-05-02] MEDS: levETIRAcetam Oral Soln 500 MG/5 ML 250 MG PO ×2 (09:46→19:40)
[2024-05-02] MEDS: Losartan Potassium 50 MG TABLET 100 MG PO (09:47)
[2024-05-02] MEDS: Ferrous Sulfate 324 MG TABLET.DR PO (09:51)
[2024-05-02] MEDS: Atorvastatin Calcium 80 MG TABLET PO (09:51)
--- NOTE | 2024-05-02 11:37 | MHC.SL.SWA ---
Speech Pathologist Impression: Oropharyngeal Dysphagia, Risk of Aspiration Risk of Aspiration Due to: Neurological Condition Reduced Cognition Dysphasia Diet Status: Recommend continue on PUREE (NDD1) with HONEY THICK liquids pills crushed in puree, 1-1 feeding. Diet continues to be recommended for next level of care. Liquid Consistency and Strategies for Safe Swallow: Liquid Intake Recommendation: Honey Thick Liquid Intake Strategies: Small Sips No Straws Solid Food Consistency: Dietary Recommendations: Pureed (NDD1) Additional Modifications to Solid Foods: Patient presents with moderate oropharyngeal phase dysphagia, characterized by slow and disorganized oral phase and delayed pharyngeal phase. Patient presents with repetitive tongue pumping, partial laryngeal elevation, and mildly delayed pharyngeal swallow trigger. Complete oral clearance noted on liquid and solid consistencies and no overt s/s of aspiration with PO intake. ST intervention is no longer indicated at this level of care, as patient is stable and tolerating SAND CUTTER recommendation of PUREED (NDD1) solids and HONEY THICK liquids, pills to be CRUSHED in PUREE. Recommend ST intervention and continue modified diet at next level of care. Please re-refer if needed. Oral Medication Intake: Crushed with Puree Please contact the pharmacy regarding appropriate crushable or liquid drug formulations that are available whenever modified delivery is recommended. Compensatory Strategies and Precautions to be Taken for Safe Swallow: Sitting Upright (90 deg) Double Swallow No Straw Small Bites and Sips Rate of Ingestion Change Oral Check Supervision While Eating and Drinking for Safe Swallow: Total Assistance (1:1) Foods to Avoid: Mixed consistencies Swallowing Recommended Treatments: Compens. Strategy Educat. Recommendation for Speech: Speech Therapy through Rehab Facility Comment: Patient is LTC resident at [facility], hx of dementia and CVA with residual right sided deficits Mechanical Cad Designer Clinican/Clinical Fellow: No Supervisory Statement: I have reviewed and agree with the student/clinical fellow's documentation: N/A Speech Language Pathologist: Danielle Avery M.A., CCC-SAND CUTTER
[2024-05-02 15:06] VITALS: BP 133/60; PULSE 74; RESP 18; TEMP 36.5; O2SAT 94
[2024-05-02] MEDS: Rivaroxaban 20 MG TABLET PO (17:58)
[2024-05-02 19:15] VITALS: BP 113/66; PULSE 75; RESP 18; TEMP 36.8; O2SAT 97
[2024-05-02] MEDS: Tamsulosin HCL 0.4 MG CAPSULE PO (19:40)
[2024-05-02] MEDS: Gabapentin 300 MG CAPSULE PO (19:40)
[2024-05-03 03:54] VITALS: BP 92/55; PULSE 71; RESP 16; TEMP 36.9; O2SAT 94
[2024-05-03 08:00] VITALS: BP 108/66; PULSE 60; RESP 18; TEMP 36.4; O2SAT 98
[2024-05-03] MEDS: Ferrous Sulfate 324 MG TABLET.DR PO (09:18)
[2024-05-03] MEDS: Atorvastatin Calcium 80 MG TABLET PO (09:18)
[2024-05-03] MEDS: Losartan Potassium 50 MG TABLET 100 MG PO (09:18)
[2024-05-03] MEDS: 0.9 % Sodium Chloride Flush 3 ML SYRINGE IVFLUSH (09:19)
[2024-05-03] MEDS: levETIRAcetam Oral Soln 500 MG/5 ML 250 MG PO (09:19)
[2024-05-03] MEDS: Ertapenem Sodium 1 GM VIAL IVPUSH (09:59)
--- NOTE | 2024-05-03 10:07 | MHC.CLN ---
F/U PO INTAKE REMAINS VARIABLE, 25-100%. DIET RX: PUREED WITH HT LIQ. CHANGING SUPPLEMENT TO MAGIC CUP (HONEY THICK PRODUCT) TID TO PROMOTE NUTRITIONAL INTAKE AND SKIN INTEGRITY SUPPLEMENT PROVIDES 870 KCALS, 27 G PROTEIN. STAGE IV PRESSURE INJURY TO COCCYX. CONTINUE TO MONITOR PO INTAKE AND ENCOURAGE SUPPLEMENT FOR WOUND HEALING.
--- NOTE | 2024-05-03 11:05 | MHC.CM.PN ---
pt dcd today to [facility] re[facility] at 2
[2024-05-03 13:31] VITALS: BP 100/60; PULSE 78; RESP 16; TEMP 36.5; O2SAT 98
--- NOTE | 2024-05-03 14:32 | HO.WOUND ---
Wound Consult: Follow up 68yr old male admitted to [facility] [place]04[place]19/24- See progress notes and H&P for detailed history. Wound consult follow up for Coccyx, right ankle and right ischium. Patient is well known to this writer editor. KING pump in use on bed at this time. Sacrum continues with light packing of durafiber AG change every other day. Right Ankle Right Ischium - thickened necrotic tissue noted - Medihoney will allow for autolytic debridement. Right Lateral Ankle and Right Ischium - Q2hr turns with pillows. Cleanse with NS moist gauze, pat dry. Apply skin prep - Apply thin layer of Medihoney (tube left at bedside) cover with foam dressing. Change Daily and PRN. Left ischium - intact blanchable redness noted - protective preventative foam applied and recommended to continue. Sacrum / Coccyx Etiology: ??Stage 4 Pressure Injury Present on Admission Wound Bed: clean moist red pink tissue Edges: ?epibole Bonny wound: maceration noted - Scar tissue noted Goals of Treatment: ? Moist wound healing - Moisture management with Alginate and off load pressure Recommendations: 1. Turn and Reposition every 2 hours and as needed for patient comfort.? Use pillows or wedges to support off loading positions. 2. Off Load all bony prominences with use of pillows and heel boots if needed.? Apply Preventative foams where needed. ? 3. Monitor for incontinence and moisture control, use barrier creams when needed for prevention and treatment. 4. Provide adequate and supplemental nutrition. 5. Order or Continue low air loss mattress. 6. Sacrum / Coccyx - Cleanse and irrigate with NS, Pat dry.? Apply skin prep to periwound, cover wound bed with Alginate (Durafiber AG).? Cover with Foam dressing.? Change every other day and PRN. 7. Right Ischium and Right Lateral Ankle - Cleanse with NS moist gauze, pat dry. Apply skin prep - Apply layer of Medihoney to wound bed cober with dry ABD pad or foam dressing. Q2hr turns with pillows. Change every other and PRN. Recommend follow up out patient Wound Clinic at [address] [place] [address] and to call for an appointment at time of discharge. [phone].?
== END 2024-05-03 13:37 | DRG 698 ==
LOC: HO.ED 13:10 → HO.EDOVER 13:46 → HO.ICU 13:52 → HO.IMC 04-21 16:19 → HO.S3 05-01 18:18
PROVIDERS: Internal Medicine; Physician Assistant Medical; Physician Assistant Surgical; Registered Nurse Community Health; Admitting Provider Internal Medicine Pulmonary Disease; Emergency Provider Emergency Medicine; PCP Internal Medicine; Visit Provider Nurse Practitioner Acute Care
DX: T83.510A Infection and inflammatory reaction due to cystostomy catheter, initial encounter (principal); A41.51 Sepsis due to Escherichia coli [E. coli]; L89.154 Pressure ulcer of sacral region, stage 4; R65.21 Severe sepsis with septic shock; I69.351 Hemiplegia and hemiparesis following cerebral infarction affecting right dominant side; N13.6 Pyonephrosis; Z16.12 Extended spectrum beta lactamase (ESBL) resistance; E87.0 Hyperosmolality and hypernatremia; Y73.8 Miscellaneous gastroenterology and urology devices associated with adverse incidents, not elsewhere classified; E87.6 Hypokalemia; D64.9 Anemia, unspecified; R31.0 Gross hematuria; I48.0 Paroxysmal atrial fibrillation; D69.59 Other secondary thrombocytopenia; F03.90 Unspecified dementia, unspecified severity, without behavioral disturbance, psychotic disturbance, mood disturbance, and anxiety; E78.5 Hyperlipidemia, unspecified; F01.50 Vascular dementia, unspecified severity, without behavioral disturbance, psychotic disturbance, mood disturbance, and anxiety; N31.2 Flaccid neuropathic bladder, not elsewhere classified; Z93.6 Other artificial openings of urinary tract status; Z74.01 Bed confinement status; Z79.01 Long term (current) use of anticoagulants; Z79.899 Other long term (current) drug therapy
CPT/HCPCS: 36415; 36558; 36589; 71045; 74176; 80048; 80053; 80202; 81001; 82040; 82272; 82565; 82803; 83605; 83735; 84100; 84484; 85007; 85025; 85027; 87040; 87077; 87086; 87088; 87186; 87205; 92526; 92610; 93005; 99284; C1751; J0131; J0692; J1335; J1642; J1644; J2003; J2060; J2185; J2470; J3010; J3370; J3371; J3480; P9047

== ENCOUNTER → 2024-04-19 08:55 | Outpatient (BNV) | payer OTHER, SELFPAY | PROVIDERS: Emergency Provider Emergency Medicine; Visit Provider Radiology Diagnostic Radiology | DX: N13.2 Hydronephrosis with renal and ureteral calculous obstruction (principal); Z93.6 Other artificial openings of urinary tract status; R06.02 Shortness of breath | CPT/HCPCS: 71045; 74176 ==

== ENCOUNTER → 2024-04-19 09:14 | Outpatient (BNV) | payer OTHER, SELFPAY | PROVIDERS: Emergency Provider Emergency Medicine; Visit Provider Internal Medicine Cardiovascular Disease | DX: R00.0 Tachycardia, unspecified (principal) | CPT/HCPCS: 93010 ==

== ENCOUNTER 2024-04-19 12:55 | Outpatient (BNV) | payer OTHER, SELFPAY | END 2024-04-25 08:45 | PROVIDERS: Admitting Provider Internal Medicine Pulmonary Disease; Emergency Provider Emergency Medicine; PCP Internal Medicine; Visit Provider Physician Assistant Surgical | DX: Z45.2 Encounter for adjustment and management of vascular access device (principal) | CPT/HCPCS: 36558; 76937; 77001 ==

== ENCOUNTER 2024-04-19 12:55 | Outpatient (BNV) | payer OTHER, SELFPAY | END 2024-05-03 08:00 | PROVIDERS: Admitting Provider Internal Medicine Pulmonary Disease; Emergency Provider Emergency Medicine; PCP Internal Medicine; Visit Provider Radiology Diagnostic Radiology | DX: Z45.2 Encounter for adjustment and management of vascular access device (principal) | CPT/HCPCS: 36589 ==

== ENCOUNTER → 2024-04-19 12:55 | Outpatient (BNV) | payer OTHER, SELFPAY | PROVIDERS: Admitting Provider Internal Medicine Pulmonary Disease; Emergency Provider Emergency Medicine; PCP Internal Medicine; Visit Provider Physician Assistant Medical | DX: A41.51 Sepsis due to Escherichia coli [E. coli] (principal); Z16.12 Extended spectrum beta lactamase (ESBL) resistance; N39.0 Urinary tract infection, site not specified | CPT/HCPCS: 99232; 99499 ==

== ENCOUNTER → 2024-04-19 12:55 | Outpatient (BNV) | payer OTHER, SELFPAY | PROVIDERS: Admitting Provider Internal Medicine Pulmonary Disease; Emergency Provider Emergency Medicine; PCP Internal Medicine; Visit Provider Internal Medicine | DX: N39.0 Urinary tract infection, site not specified (principal); B96.29 Other Escherichia coli [E. coli] as the cause of diseases classified elsewhere; Z16.12 Extended spectrum beta lactamase (ESBL) resistance; B96.20 Unspecified Escherichia coli [E. coli] as the cause of diseases classified elsewhere; A41.9 Sepsis, unspecified organism; R65.21 Severe sepsis with septic shock | CPT/HCPCS: 99222 ==

== ENCOUNTER → 2024-04-19 12:55 | Outpatient (BNV) | payer OTHER, SELFPAY | PROVIDERS: Admitting Provider Internal Medicine Pulmonary Disease; Emergency Provider Emergency Medicine; PCP Internal Medicine; Visit Provider Urology | DX: N39.0 Urinary tract infection, site not specified (principal); Z98.890 Other specified postprocedural states; Z93.59 Other cystostomy status; B96.29 Other Escherichia coli [E. coli] as the cause of diseases classified elsewhere; Z16.12 Extended spectrum beta lactamase (ESBL) resistance | CPT/HCPCS: 99222 ==

== ENCOUNTER → 2024-04-19 12:55 | Outpatient (BNV) | payer OTHER, SELFPAY | PROVIDERS: Admitting Provider Internal Medicine Pulmonary Disease; Emergency Provider Emergency Medicine; PCP Internal Medicine; Visit Provider Internal Medicine Pulmonary Disease | DX: N39.0 Urinary tract infection, site not specified (principal); A41.9 Sepsis, unspecified organism; R65.21 Severe sepsis with septic shock; N20.0 Calculus of kidney; R78.81 Bacteremia; N31.9 Neuromuscular dysfunction of bladder, unspecified | CPT/HCPCS: 99291 ==

== ENCOUNTER 2024-06-08 11:54 | Emergency (ER) | payer OTHER, SELFPAY ==
--- NOTE | ~2024-06-08 | IR_ITS ---
CLINICAL HISTORY: Obstructive uropathy. Dislodged right nephrostomy tube. PROCEDURES: Replacement of dislodged nephrostomy tube COMPLICATIONS: None. ESTIMATED BLOOD LOSS: <5 ml SPECIMENS: None FLUOROSCOPY TIME: 0.7 min PROCEDURE NOTE: The procedure, risks, benefits, and alternatives were carefully explained to the healthcare proxy via telephone, and written informed consent was obtained. The patient was placed prone on the fluoroscopy table. A timeout was performed. The right dislodged nephrostomy tube and surrounding skin was sterilely prepped and draped Local anesthesia was administered to the access site with lidocaine. Contrast injected through the nephrostomy tube demonstrates that has been dislodged and is just outside the calyx. The hub was cut and a 0.035 Glidewire was successfully negotiated through the tract and into the renal pelvis. A new 8 Wolof nephrostomy tube was placed. The pigtail was formed within the renal pelvis. Contrast injection demonstrates satisfactory position of the tube. The external portion of the tube was secured with a suture and a dressing was applied and the tube was maintained to gravity bag drainage. Patient tolerated procedure well IR/IR nephrostomy tube change IMPRESSION: Successful replacement of dislodged right nephrostomy tube Electronically signed by: Ricardo Toledo MD 06/08/2024 04:21 PM EDT RP
--- NOTE | 2024-06-08 12:06 | ED_ITS ---
HPI - General Adult General Chief complaint: Urogenital-Male Stated complaint: DISLODGED NEPHROSTOMY TUBE PER EMS Time Seen by Provider: 06/08/24 12:05 Source: patient, EMS, old records reviewed and cbx operator Mode of arrival: EMS Limitations: physical limitation (Patient is nonverbal) History of Present Illness ED Provider: DR. 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 Patient is nonverbal unable to obtain history from the patient. Related Data Home Medications ?Medication ?Instructions ?Recorded ?Confirmed acetaminophen 325 mg tablet 650 mg PO Q4H PRN fever/pain 02/16/21 04/19/24 bisacodyl 10 mg rectal suppository 10 mg ND DAILY PRN If no BM in 8 02/16/21 04/19/24 hours after use of MoM calcium 600 mg (as 1 tab PO BID 02/16/21 04/19/24 carbonate)-vitamin D3 5 mcg (200 unit) tablet magnesium hydroxide 400 mg/5 mL 30 ml PO DAILY PRN No BM in 3 Days 02/16/21 04/19/24 oral suspension (Milk of Magnesia) levetiracetam 100 mg/mL oral 2.5 ml PO BID 02/26/21 04/19/24 solution atorvastatin 80 mg tablet 80 mg PO DAILY 01/26/22 04/19/24 rivaroxaban 20 mg tablet (Xarelto) 20 mg PO DAILY@1700 01/26/22 04/19/24 magnesium citrate 150 ml PO DAILY PRN No BM in 12 hrs 02/15/22 04/19/24 sodium phosphates 19 gram-7 118 ml ND DAILY PRN If no BM in 8 02/15/22 04/19/24 gram/118 mL enema (Fleet Enema) hours after use of Bisacodyl acetaminophen 325 mg tablet 650 mg PO BEDTIME 10/03/22 04/19/24 (Tylenol) acetic acid 0.25 % irrigation 50 ml irrigation TUTHSA@2100 10/03/22 04/19/24 solution ferrous sulfate 325 mg (65 mg 325 mg PO DAILY 12/22/22 04/19/24 iron) tablet multivitamin 1 tab PO DAILY 01/18/24 04/19/24 psyllium 1 ea PO BEDTIME 01/18/24 04/19/24 sodium hypochlorite 0.125 % 1 appl topical BEDTIME 01/18/24 04/19/24 solution oxycodone 5 mg tablet 5 mg PO DAILY PRN Pain/Wound 04/19/24 04/19/24 Management potassium chloride 20 mEq/15 mL 30 meq PO BID 04/19/24 04/19/24 oral liquid simethicone 80 mg chewable tablet 80 mg PO Q6H PRN Abdominal 04/19/24 04/19/24 Distention Previous Rx's ?Medication ?Instructions ?Recorded losartan 100 mg tablet 100 mg PO DAILY 90 days #90 tabs 02/07/20 wet wipes #5 multiple units 03/12/20 tamsulosin 0.4 mg capsule 0.4 mg PO BEDTIME 90 days #90 caps 03/22/20 gabapentin 300 mg capsule 300 mg PO BEDTIME 30 days #30 caps 03/27/20 miscellaneous medical supply #1 ea 03/27/20 ascorbic acid (vitamin C) 1,000 mg 1,000 mg PO DAILY 90 days #90 tabs 01/27/22 tablet methenamine hippurate 1 gram tablet 1 g PO daily 90 days #90 tabs 01/27/22 cefuroxime axetil 250 mg tablet 250 mg PO BID 7 days #14 tabs 06/08/24 Allergies Allergy/AdvReac Type Severity Reaction Status Date / Time No Known Allergies Allergy Verified 06/08/24 12:17 [No Known Allergies*] Review of Systems 2 Review of Systems: Yes Unobtainable due to mental status PMFSH Past Medical History Medical History 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 Mother No problems noted. Social History Social History Household Members: Other Household Members Other:: [facility] Housing: [facility] Are you a primary director career to a significant other at home: No Do you presently have visiting nurse or other home services: No Unable to assess alcohol history related to: Unable to respond Alcohol intake: former Comment: patient sleeping Patient Tobacco Use Status: Tobacco use Unknown Second Hand Smoke Exposure: No Advance Directives: Yes Advance Directives on File: Yes Advance Directives Date on File: 02/14/20 service: No Current occupational status: disabled Physical Exam ED Vital Signs: Vital Signs - 24 hr 06/08/24 12:11 06/08/24 13:51 06/08/24 15:32 Temperature 98.1 F 98.3 F Pulse Rate 70 81 78 Respiratory Rate 12 20 15 Blood Pressure 120/74 144/75 H 126/57 L Pulse Oximetry 99 99 97 Oxygen Delivery Method Room Air Room Air Room Air 06/08/24 15:47 06/08/24 16:33 Temperature 98.2 F Pulse Rate 84 91 Respiratory Rate 15 18 Blood Pressure 126/57 L 102/73 Pulse Oximetry 96 99 Oxygen Delivery Method Room Air Room Air BMI result Body Mass Index 21.6 Vital signs have been reviewed and appear to be correct. Blood pressure elevated. Heart rate normal. Respiratory rate normal. Temperature normal. Oxygen saturation normal. Appearance: No acute distress. Head: Normal external exam. Normocephalic. Atraumatic. No Oliveira signs noted. No raccoon eyes noted Eyes: PERRLA. EOMI. Conjunctiva and sclera normal. Eyelids normal. ENT: TM's Normal. Pharynx normal. Uvula midline. Moist mucous membranes. No trismus noted. No drooling noted. No muffled voice noted. Neck: Normal inspection. Neck supple. FROM. No adenopathy. Thyroid Normal. No meningeal signs. No neck mass noted. CVS: Normal heart rate and rhythm. Heart sound normal. No murmurs noted. Pulses normal throughout. Respiratory: No respiratory distress. Painless inspiration. Breath sounds normal. No wheezes/rales/rhonchi noted. Chest nontender. No accessory muscle usage noted or decreased air movement noted. Abdomen: Soft and nontender. Bowel sounds normal in all 4 quadrants. No distention noted. No organomegaly noted. No visible injury noted. Back: No CVA tenderness. Full range of motion noted. Skin: Skin warm and dry. Normal skin color. Normal skin turgor. No rashes/lesions/lacerations noted. Extremities: No lower extremity edema. Extremities exhibit normal range of motion. Extremities nontender. Neuro: Cranial nerve exam: II-XII are grossly intact No motor deficit. No sensory deficit. Reflexes normal. Course Reevaluation(s) Reevaluation #1: UTI, no sepsis. Suprapubic catheter was changed in the emergency department by 18 gauge Walker catheter with good return back urine. Right nephrostomy tube was successfully replaced by IR. Case was discussed with Dr. Huitron agreed with the plan to discharge the patient on antibiotic. Time: 17:18 Medications Administered Discontinued Medications Generic Name Dose Route Start Last Admin Trade Name Freq PRN Reason Stop Dose Admin Sodium Chloride 1,000 mls @ 999 mls/hr 06/08/24 12:17 06/08/24 12:50 Ns IV 06/08/24 13:17 999 mls/hr .Q1H1M ONE Administration Cefazolin Sodium/Dextrose 2 gm in 50 mls @ 100 mls/hr 06/08/24 15:40 06/08/24 15:40 Ancef IV 06/08/24 16:09 100 mls/hr ONCE ONE Administration Medical Decision Making Differential Diagnosis Differential Diagnoses: The differential diagnosis associated with the presentation includes (UTI, sepsis, suprapubic catheter placement, right nephrostomy tube replacement, electrolyte derangement, severe anemia.) Admission/Observation Consideration of admission/observation: Escalation of care including admission/observation considered Consult Healthcare Provider Management of the patient was discussed with: Adjunct Communications Faculty Member (Dr. Huitron) Lab Data MDM Lab Attestation statement: I reviewed the patient's lab results. 06/08/24 12:50 06/08/24 12:50 Labs: Lab Results 06/08/24 06/08/24 06/08/24 Range/Units 12:36 12:50 12:51 WBC 5.0 (4.8-10.8) X10*3/uL RBC 2.80 L (4.60-5.80) X10*6/uL Hgb 9.2 L (14.0-18.0) g/dl Hct 27.5 L (42.0-52.0) % MCV 98.2 H (80.0-98.0) fL MCH 32.9 (27.0-33.0) pg MCHC 33.5 (31.0-36.0) g/dl RDW 15.7 (11.0-16.0) % Plt Count 168 (160-400) X10*3/uL MPV 9.3 L (9.4-12.4) fL Immature Gran % (Auto) 0.4 (0.0-0.4) % Neut % (Auto) 54.5 (45-73) % Lymph % (Auto) 27.9 (20-40) % [place] % (Auto) 13.2 H (2-11) % Eos % (Auto) 3.6 (0-4) % Baso % (Auto) 0.4 (0-2) % Lymph # (Auto) 1.4 (1.2-4.9) X10*3/uL [place] # (Auto) 0.7 (0.1-1.2) X10*3/uL Eos # (Auto) 0.2 (0.0-0.4) X10*3/uL Baso # (Auto) 0.0 (0.0-0.2) X10*3/uL Abs Immat Gran (auto) 0.02 (0.00-0.03) X10*3/uL Absolute Neuts (auto) 2.7 (2.0-8.3) x10*3/uL Absolute Nucleated RBC 0.000 (0.0-0.012) X10*3/uL Nucleated RBC % (auto) 0.0 (0.0-0.2) /100WBC Sodium 139 (135-145) mmol/L Potassium 4.5 D (3.3-5.1) mmol/L Chloride 110 H (96-108) mmol/L Carbon Dioxide 25 (22-29) mmol/L Anion Gap 9 L (12-20) BUN 34 H (9-16) mg/dL Creatinine 0.98 (0.5-1.4) mg/dL Estim Creat Clear Calc 68.7 Estimated GFR > 60 Random Glucose 109 (60-115) mg/dL Lactic Acid 1.0 (0.5-2.0) mmol/L Calcium 8.7 (8.4-10.2) mg/dL Total Bilirubin 0.5 (0.0-1.0) mg/dL Direct Bilirubin 0.3 (0.0-0.5) mg/dL AST 20 (5-37) U/L ALT 12 (0-40) U/L Alkaline Phosphatase 92 (39-117) U/L Troponin I High Sens 4.9 D (<3.5-35.0) ng/L Total Protein 6.5 (6.5-8.0) g/dL Albumin 2.8 L (3.5-5.0) g/dL Lipase 27 (8-78) U/L Urine Color Yellow Urine Appearance Turbid Urine pH 8.5 (5.0-9.0) Ur Specific [place] 1.015 (1.005-1.025) Urine Protein 100 (2+) H (Neg-Trace) mg/dL Urine Glucose (UA) Negative (Negative) mg/dL Urine Ketones Negative (Negative) mg/dL Urine Blood Large (3+) H (Negative) Urine Nitrite Negative (Negative) Ur Leukocyte Esterase Large (3+) H (Negative) Urine RBC >20 H (0-2) /HPF Urine WBC >50 H (0-5) /HPF Ur Squamous Epith Cells 0-2 (0-2) /HPF Calcium Oxalate Crystal Present Urine Bacteria 4+ (None Seen) Hyaline Casts 3-5 (0-2) /LPF Discharge Plan Discharge Clinical Impression: Acute UTI, Encounter for suprapubic catheter care, Nephrostomy tube displaced Patient Disposition: Xfer SNF Instructions: How to Care for Your Suprapubic Catheter (DC), Nephrostomy Tube Care (ED) Prescriptions: New cefuroxime axetil 250 mg tablet 250 mg PO BID 7 Days Qty: 14 0RF No Action (DME) wet wipes See Rx Instructions .ROUTE .MEDSUPPLY Qty: 5 3RF Rx Instructions: As directed levetiracetam 100 mg/mL solution 2.5 ml PO BID acetaminophen 325 mg Tablet 650 mg PO Q4H PRN (Reason: fever/pain) calcium carbonate-vitamin D3 600 mg-5 mcg (200 unit) Tablet 1 tab PO BID magnesium hydroxide [Milk of Magnesia] 400 mg/5 mL Suspension 30 ml PO DAILY PRN (Reason: No BM in 3 Days) bisacodyl 10 mg Suppository 10 mg ND DAILY PRN (Reason: If no BM in 8 hours after use of MoM) Fleet Enema 19-7 gram/118 mL Enema 118 ml ND DAILY PRN (Reason: If no BM in 8 hours after use of Bisacodyl) magnesium citrate Solution 150 ml PO DAILY PRN (Reason: No BM in 12 hrs) ferrous sulfate 325 mg (65 mg iron) Tablet 325 mg PO DAILY multivitamin Tablet 1 tab PO DAILY psyllium Powder 1 ea PO BEDTIME Rx Instructions: mix into at least 8 oz of water or juice before administering sodium hypochlorite 0.125 % Solution 1 appl TOPICAL BEDTIME Rx Instructions: APPLY TO COCCYX WOUND TOPICALLY EVERY GLOBAL SALES MANAGER FOR WOUND CARE TO PRESSURE AREA, CLEANSE WITH DAKIN'S SOLUTION, PACK WITH HYDRAFERA BLUE, COVER WITH DRY CLEAN DRESSING DAILY. potassium chloride 20 mEq/15 mL liquid 30 meq PO BID oxycodone 5 mg Tablet 5 mg PO DAILY PRN (Reason: Pain/Wound Management) simethicone 80 mg Tablet,Chewable 80 mg PO Q6H PRN (Reason: Abdominal Distention) acetaminophen [Tylenol] 325 mg Tablet 650 mg PO BEDTIME acetic acid 0.25 % Solution 50 ml IRRIGATION TUTHSA@2100 Rx Instructions: for urinary catheter flush losartan 100 mg tablet 100 mg PO DAILY 90 Days Qty: 90 4RF gabapentin 300 mg capsule 300 mg PO BEDTIME 30 Days Qty: 30 0RF (DME) miscellaneous medical supply Misc See Rx Instructions .ROUTE .MEDSUPPLY Qty: 1 0RF Rx Instructions: RUE resting hand Splint/Sling As directed, Dx: G81.91, I67.89, duration 999 days/life time tamsulosin 0.4 mg capsule 0.4 mg PO BEDTIME 90 Days Qty: 90 1RF Xarelto 20 mg tablet 20 mg PO DAILY@1700 atorvastatin 80 mg tablet 80 mg PO DAILY ascorbic acid (vitamin C) 1,000 mg tablet 1,000 mg PO DAILY 90 Days Qty: 90 1RF methenamine hippurate 1 gram tablet 1 g PO daily 90 Days Qty: 90 1RF Print Language: Unable To Collect
[2024-06-08 12:11] VITALS: BP 120/74; PULSE 70; RESP 12; TEMP 36.7; O2SAT 99; BMI 21.6
[2024-06-08] MEDS: 0.9 % Sodium Chloride 1,000 ML 999 ML IV (12:50)
[2024-06-08 12:56] LABS: MANUAL DIFF FLAG NO
[2024-06-08 13:04] LABS: Appearance Urine Turbid; Color Urine Yellow; Glucose Urine UA Negative (Negative); Leukocyte Esterase Urine Large (3+) (Negative); Nitrite Urine Negative (Negative); PH 8.5 (5.0-9.0); Specific Gravity - Urine 1.015 (1.005-1.025); UMIC TRIGGER UACC YES; Urine Blood Large (3+) (Negative); Urine Ketones Negative (Negative); Urine Protein 100 (2+) mg/dL (Neg-Trace)
[2024-06-08 13:06] LABS: Basophils Percent Auto 0.4 % (0-2); Eosinophils Absolute Auto 0.2 X10*3/uL (0.0-0.4); Eosinophils Percent Auto 3.6 % (0-4); Hematocrit 27.5 % (42.0-52.0); Hemoglobin 9.2 g/dl (14.0-18.0); Imm Gran Abs Auto 0.02 X10*3/uL (0.00-0.03); Imm Gran Pct Auto 0.4 % (0.0-0.4); Lymphocytes Absolute Auto 1.4 X10*3/uL (1.2-4.9); Lymphocytes Percent Auto 27.9 % (20-40); Mean Corpuscular HGB Conc 33.5 g/dl (31.0-36.0); Mean Corpuscular Hemoglobin 32.9 pg (27.0-33.0); Mean Corpuscular Volume 98.2 fL (80.0-98.0); Mean Platelet Volume 9.3 fL (9.4-12.4); Monocytes Absolute Auto 0.7 X10*3/uL (0.1-1.2); Monocytes Percent Auto 13.2 % (2-11); Neutrophils Absolute Auto 2.7 x10*3/uL (2.0-8.3); Neutrophils Percent Auto 54.5 % (45-73); Platelet Count 168 X10*3/uL (160-400); Red Cell Distribution Width 15.7 % (11.0-16.0)
[2024-06-08 13:15] LABS: Bacteria Urine 4+ (None Seen); Calcium Oxalate Crystals Urine Present; RBC Urine >20 /HPF (0-2); Squamous Epithelial Cell Urine 0-2 /HPF (0-2); UACC Culture Trigger YES; WBC Urine >50 /HPF (0-5)
[2024-06-08 13:18] LABS: Alanine Aminotransferase 12 U/L (0-40); Albumin Level 2.8 g/dL (3.5-5.0); Anion Gap 9 (12-20); Aspartate Amino Transferase 20 U/L (5-37); Bilirubin Direct 0.3 mg/dL (0.0-0.5); Bilirubin Total 0.5 mg/dL (0.0-1.0); Blood Urea Nitrogen 34 mg/dL (9-16); Calcium 8.7 mg/dL (8.4-10.2); Carbon Dioxide 25 mmol/L (22-29); Chloride 110 mmol/L (96-108); Creatinine Clr Calc Pharmacy 68.7; Estimated Glomerular Filt Rate > 60; Glucose Random 109 mg/dL (60-115); Lipase 27 U/L (8-78); Potassium 4.5 mmol/L (3.3-5.1); Sodium 139 mmol/L (135-145); Total Protein 6.5 g/dL (6.5-8.0); Troponin-I High Sensitivity 4.9 ng/L (<3.5-35.0)
[2024-06-08 13:29] LABS: Alkaline Phosphatase 92 U/L (39-117)
[2024-06-08 13:51] VITALS: BP 144/75; PULSE 81; RESP 20; TEMP 36.8; O2SAT 99
[2024-06-08 15:32] VITALS: BP 126/57; PULSE 78; RESP 15; O2SAT 97
[2024-06-08] MEDS: ceFAZolin Sodium/Dextrose,Iso 2 GM/50 ML PIGGYBACK IV (15:40)
[2024-06-08 15:47] VITALS: BP 126/57; PULSE 84; RESP 15; O2SAT 96
[2024-06-08 16:33] VITALS: BP 102/73; PULSE 91; RESP 18; TEMP 36.8; O2SAT 99
--- OUTSIDE RECORDS SUMMARY | 2024-06-08 16:37 | XMS_ITS | Encounter Summary ---
Author Organization [employer] Address [address] [place] [address] Care Team Providers Care Parking Line Painter Name Role Phone Lauren Wiley MD Primary Care Provider + Encounter Details Date Type Department Care Team (Late st Contact Info) Description 03/29/2024 Lab Requisition [facility] - Main Lab [address] [place] [address] Lauren Wiley MD [address] [id number] Hematuria, unspecified Social History Tobacco Use Types [...] reflex microscopic (03/29/2024 12:00 AM EST) Specific [place] Urine 1.013 1.003 - 1.030 LAB URINALYSIS - AUTOMATED METHOD 03/29/2024 11:21 AM EST [facility] pH, Urine >=9.0(A) 5.0 - 8.0 pH LAB URINALYSIS - AUTOMATED METHOD 03/29/2024 11:21 AM [facility] Leukocytes, Urine Large(A) Negative LAB URINALYSIS - AUTOMATED METHOD 03/29/2024 11:21 AM [facility] Nitrite, Urine Positive(A) Negative LAB URINALYSIS - AUTOMATED METHOD 03/29/2024 11:21 AM [facility] Protein, Urine 100(A) <=Trace mg/dL LAB URINALYSIS - AUTOMATED METHOD 03/29/2024 11:21 AM [facility] Glucose, Urine Negative Negative mg/dL LAB URINALYSIS - AUTOMATED METHOD 03/29/2024 11:21 AM [facility] Ketones, Urine Negative Negative mg/dL LAB URINALYSIS - AUTOMATED METHOD 03/29/2024 11:21 AM [facility] Urobilinogen , Urine 0.2 0.2 - 1.0 mg/dL LAB URINALYSIS - AUTOMATED METHOD 03/29/2024 11:21 AM [facility] Bilirubin, Urine Negative Negative LAB URINALYSIS - AUTOMATED METHOD 03/29/2024 11:21 AM [facility] Blood, Urine Large(A) Negative LAB URINALYSIS - AUTOMATED METHOD 03/29/2024 11:21 AM [facility] RBC, Urine 264(H) 0 - 4 /HPF LAB URINALYSIS - AUTOMATED METHOD 03/29/2024 11:21 AM [facility] WBC, Urine 40(H) 0 - 4 /HPF LAB URINALYSIS - AUTOMATED METHOD 03/29/2024 11:21 AM [facility] Squamous Epithelial, Urine 16 0 - 60 /LPF LAB URINALYSIS - AUTOMATED METHOD 03/29/2024 11:21 AM [facility] Bacteria, Urine Moderate(A) Negative /HPF LAB URINALYSIS - AUTOMATED METHOD 03/29/2024 11:21 AM [facility] Hyaline Casts, Urine 5.2(H) 0 - 3 /LPF LAB URINALYSIS - AUTOMATED METHOD 03/29/2024 11:21 AM EST [facility] Urine Urine specimen from urethra / Unknown 03/29/2024 03/29/2024 10:16 AM EST us Lauren Wiley MD LAB URINE ORDERABLES Fin al Result [facility] [address] [place] [address], * (ABNORMAL) Culture urine (03/29/2024 12:00 AM EST) Culture, Urine >100,000 CFU/mL Providencia stuartii(A) AL 04/02/2024 8:09 AM EST [facility] Comment: This is an edited result. Previous organism was Gram negative bacilli on 03/30/2024 at 1021 EST. Culture, Urine 50,000-100,000 CFU/mL Escherichia coli ESBL(A) AL 04/02/2024 8:09 AM EST [facility] Comment: THIS ORGANISM IS POSITIVE [...] Unknown 03/29/2024 03/29/2024 10:16 AM EST Narrative [facility] - 04/02/2024 8:09 AM EST [...] MICROBIOLOGY - GENER AL ORDERABLES Final Result [facility] [address] [place] [address], documented in this encounter Visit Diagnoses Diagnosis Hematuria, unspecified documented in this encounter Additional Health Concerns Infection Onset Date Last Indicated Resolved Time ESBL 03/29/2024 03/29/2024 documented as of this encounter Care Teams Parking Line Painter Relationship Specialty Start Date End Date Lauren Wiley MD [address] [place] [address] PCP - General Family Medicine 01/28/24 documented as of this encounter
--- OUTSIDE RECORDS SUMMARY | 2024-06-08 16:37 | XMS_ITS | Encounter Summary ---
Author Organization [employer] Address [address] [place] [address] Care Team Providers Care Account Executive Software Sales Name Role Phone Lauren Wiley MD Primary Care Provider + Encounter Details Date Type Department Care Team (Late st Contact Info) Description 02/25/[address] [facility] - Main Lab [address] [place] [address] Lauren Wiley MD [address] [phone] Essential (primary) hypertension Social History Tobacco Use [...] LAB CHEMISTRY METHOD 02/25/2024 12:38 PM EST [facility] Potassium 4.4 3.5 - 5.5 mmol/L LAB CHEMISTRY METHOD 02/25/2024 12:38 PM EST [facility] Chloride 121(H) 96 - 110 mmol/L LAB CHEMISTRY METHOD 02/25/2024 12:38 PM [facility] CO2 25 21 - 32 mmol/L LAB CHEMISTRY METHOD 02/25/2024 12:38 PM [facility] Anion Gap 4 3 - 11 LAB CHEMISTRY METHOD 02/25/2024 12:38 PM [facility] Glucose 106(H) 70 - 100 mg/dL LAB CHEMISTRY METHOD 02/25/2024 12:38 PM [facility] BUN 38(H) 5 - 25 mg/dL LAB CHEMISTRY METHOD 02/25/2024 12:38 PM [facility] Creatinine 1.01 0.70 - 1.30 mg/dL LAB CHEMISTRY METHOD 02/25/2024 12:38 PM [facility] eGFR 81 >=60 mL/min/1. 73m2 LAB CHEMISTRY METHOD 02/25/2024 12:38 PM [facility] Comment:Calculation based on the??Chronic Kidney Disease Epidemiology Collaboration (CKD-EPI) equation refit??without adjustment for race. BUN/Creatinine Ratio 37.6 LAB CHEMISTRY METHOD 02/25/2024 12:38 PM [facility] Calcium 8.6 8.5 - 10.5 mg/dL LAB CHEMISTRY METHOD 02/25/2024 12:38 PM [facility] AST (SGOT) 18 10 - 42 unit/L LAB CHEMISTRY METHOD 02/25/2024 12:38 PM [facility] ALT (SGPT) 22 10 - 60 unit/L LAB CHEMISTRY METHOD 02/25/2024 12:38 PM [facility] Alkaline Phosphatase 80 42 - 121 unit/L LAB CHEMISTRY METHOD 02/25/2024 12:38 PM [facility] Total Protein 5.6(L) 6.0 - 8.0 g/dL LAB CHEMISTRY METHOD 02/25/2024 12:38 PM [facility] Albumin 2.3(L) 3.2 - 5.0 g/dL LAB CHEMISTRY METHOD 02/25/2024 12:38 PM [facility] Total Bilirubin 0.4 0.0 - 1.4 mg/dL LAB CHEMISTRY METHOD 02/25/2024 12:38 PM [facility] Blood Venous blood specimen / Unknown Venipuncture / Unknown 02/25/2024 5:00 AM EST 02/25/2024 10:40 AM EST us Lauren Wiley MD LAB BLOOD ORDERABLES Fin al Result [facility] [address] [place] [address], * (ABNORMAL) Complete blood count (02/25/2024 5:00 AM EST) WBC 4.4(L) 4.8 - 10.8 K/mcL LAB HEMETOLOGY METHOD 02/25/2024 12:35 PM [facility] RBC 3.10(L) 4.50 - 5.50 M/mcL LAB HEMETOLOGY METHOD 02/25/2024 12:35 PM [facility] Hemoglobin 9.9(L) 13.5 - 17.5 g/dL LAB HEMETOLOGY METHOD 02/25/2024 12:35 PM [facility] Hematocrit 31.0(L) 42.0 - 54.0 % LAB HEMETOLOGY METHOD 02/25/2024 12:35 PM [facility] MCV 99.7(H) 79.0 - 98.0 FL LAB HEMETOLOGY METHOD 02/25/2024 12:35 PM [facility] MCH 31.8 27.0 - 32.0 pcg LAB HEMETOLOGY METHOD 02/25/2024 12:35 PM [facility] MCHC 31.9(L) 32.0 - 37.0 g/dL LAB HEMETOLOGY METHOD 02/25/2024 12:35 PM EST [facility] RDW 15.5(H) 11.0 - 15.0 % LAB HEMETOLOGY METHOD 02/25/2024 12:35 PM EST [facility] Platelets 189 130 - 400 K/mcL LAB HEMETOLOGY METHOD 02/25/2024 12:35 PM EST [facility] MPV 10.5 7.0 - 11.0 FL LAB HEMETOLOGY METHOD 02/25/2024 12:35 PM EST [facility] NRBC 0.0 <1.0 % LAB HEMETOLOGY METHOD 02/25/2024 12:35 PM [facility] NRBC Absolute 0.00 <0.10 K/mcL LAB HEMETOLOGY METHOD 02/25/2024 12:35 PM [facility] Blood Venous blood specimen / Unknown Venipuncture / Unknown 02/25/2024 5:00 AM EST 02/25/2024 10:40 AM EST us Lauren Wiley MD LAB BLOOD ORDERABLES Fin al Result [facility] [address] [place] [address], documented in this encounter Visit Diagnoses Diagnosis Essential (primary) hypertension Unspecified essential hypertension documented in this encounter Additional Health Concerns Infection Onset Date Last Indicated Resolved Time ESBL 03/29/2024 03/29/2024 documented as of this encounter Care Teams Account Executive Software Sales Relationship Specialty Start Date End Date Lauren Wiley MD [address] [place] [address] PCP - General Family Medicine 01/28/24 documented as of this encounter
--- OUTSIDE RECORDS SUMMARY | 2024-06-08 16:37 | XMS_ITS | Encounter Summary ---
Author Organization [employer] Address [address] [place] [address] Care Team Providers Care Welding Systems And Equipment Repairer Name Role Phone Lauren Wiley MD Primary Care Provider + Encounter Details Date Type Department Care Team (Late st Contact Info) Description 12/27/2023 Lab Requisition [facility] - Main Lab [address] [place] [address] Lauren Wiley MD [address] [phone] Anemia, unspecified; Essential (primary) hypertension Social History [...] Travel phlebotomy fee (12/27/2023 9:02 AM EST) [facility] TRAVEL PHLEBOTOMY FEE Completed 12/27/2023 12:01 PM EST [facility] ([facility] Blood Venous blood specimen / Unknown Venipuncture / Unknown 12/27/2023 9:02 AM EST 12/27/2023 11:39 AM EST us Lauren Wiley MD LAB BLOOD ORDERABLES Fin al Result [facility] ([facility]) [facility] [address] [place] [address], * Zinc (12/27/2023 9:02 AM EST) Zinc 61 60 - 130 ug/dL 12/30/2023 12:30 PM EST [facility] Comment: Elevated results may be due to sample collected in a non-certified trace element-free tube. This test was developed and the performance characteristics determined by [facility]. It has not been cleared or approved by the FDA. The laboratory is regulated under CLIA as qualified to perform high-complexity testing. This test is used for patient testing purposes. It should not be regarded as investigational or for research. Test performed at [facility], [address] , [place], [place] ??[address] ? [phone] Jeannette Lopez MD, PhD - On Site Services Specialist Blood Venous blood specimen / Unknown Venipuncture / Unknown 12/27/2023 9:02 AM EST 12/27/2023 11:39 AM EST Lauren Wiley MD LAB BLOOD ORDERABLES Fin al Result Performing Organization Address [facility]/ZIP Co de Phone Number [facility] [address] [place] [address] documented in this encounter Visit Diagnoses Diagnosis Anemia, unspecified Essential (primary) hypertension Unspecified essential hypertension documented in this encounter Additional Health Concerns Infection Onset Date Last Indicated Resolved Time ESBL 03/29/2024 03/29/2024 documented as of this encounter Care Teams Welding Systems And Equipment Repairer Relationship Specialty Start Date End Date Lauren Wiley MD [address] [place] [address] PCP - General Family Medicine 01/28/24 documented as of this encounter
--- OUTSIDE RECORDS SUMMARY | 2024-06-08 16:37 | XMS_ITS | Encounter Summary ---
Author Organization [facility] Address [address] [place] [address] Care Team Providers Care Rotary Planer Set Up Operator Name Role Phone Elder, Lauern Paulino MD Primary Care Provider + Encounter Details Date Type Department Care Team (Late st Contact Info) Description 02/02/2024 Lab Requisition [facility] Lab [address] [facility] [place] [address] Yoav Osorio MD [address] [place] [address] [address] [place] [phone] Essential (primary) hypertension Social History Tobacco Use [...] LAB CHEMISTRY METHOD 02/02/2024 12:58 PM EST [facility] Potassium 4.0 3.5 - 5.5 mmol/L LAB CHEMISTRY METHOD 02/02/2024 12:58 PM EST [facility] Chloride 113(H) 96 - 110 mmol/L LAB CHEMISTRY METHOD 02/02/2024 12:58 PM EST [facility] CO2 27 21 - 32 mmol/L LAB CHEMISTRY METHOD 02/02/2024 12:58 PM [facility] Anion Gap 5 3 - 11 LAB CHEMISTRY METHOD 02/02/2024 12:58 PM [facility] Glucose 71 70 - 100 mg/dL LAB CHEMISTRY METHOD 02/02/2024 12:58 PM [facility] BUN 31(H) 5 - 25 mg/dL LAB CHEMISTRY METHOD 02/02/2024 12:58 PM [facility] Comment:Results verified by repeat testing Creatinine 0.92 0.70 - 1.30 mg/dL LAB CHEMISTRY METHOD 02/02/2024 12:58 PM [facility] eGFR 90 >=60 mL/min/1. 73m2 LAB CHEMISTRY METHOD 02/02/2024 12:58 PM [facility] Comment:Calculation based on the??Chronic Kidney Disease Epidemiology Collaboration (CKD-EPI) equation refit??without adjustment for race. BUN/Creatinine Ratio 33.7 LAB CHEMISTRY METHOD 02/02/2024 12:58 PM [facility] Calcium 8.6 8.5 - 10.5 mg/dL LAB CHEMISTRY METHOD 02/02/2024 12:58 PM [facility] AST (SGOT) 18 10 - 42 unit/L LAB CHEMISTRY METHOD 02/02/2024 12:58 PM [facility] ALT (SGPT) 18 10 - 60 unit/L LAB CHEMISTRY METHOD 02/02/2024 12:58 PM [facility] Alkaline Phosphatase 94 42 - 121 unit/L LAB CHEMISTRY METHOD 02/02/2024 12:58 PM [facility] Total Protein 5.4(L) 6.0 - 8.0 g/dL LAB CHEMISTRY METHOD 02/02/2024 12:58 PM [facility] Albumin 2.3(L) 3.2 - 5.0 g/dL LAB CHEMISTRY METHOD 02/02/2024 12:58 PM [facility] Total Bilirubin 0.5 0.0 - 1.4 mg/dL LAB CHEMISTRY METHOD 02/02/2024 12:58 PM EST [facility] Blood Venous blood specimen / Unknown Venipuncture / Unknown 02/02/2024 5:08 AM EST 02/02/2024 10:37 AM EST us Yoav Osorio MD LAB BLOOD ORDERABLES Final Resu lt [facility] [address] [place] [address], documented in this encounter Visit Diagnoses Diagnosis Essential (primary) hypertension Unspecified essential hypertension documented in this encounter Additional Health Concerns Infection Onset Date Last Indicated Resolved Time ESBL 03/29/2024 03/29/2024 documented as of this encounter Care Teams Rotary Planer Set Up Operator Relationship Specialty Start Date End Date Lauren Wiley MD [address] [place] [address] PCP - General Family Medicine 01/28/24 documented as of this encounter
--- OUTSIDE RECORDS SUMMARY | 2024-06-08 16:37 | XMS_ITS | Encounter Summary ---
Author Organization [facility] Address [address] [place] [address] Care Team Providers Care Weatherstrip Machine Operator Name Role Phone Lauren Wiley MD Primary Care Provider + Encounter Details Date Type Department Care Team (Late st Contact Info) Description 03/03/2024 Lab Requisition [facility] Lab [address] [place] [address] Lauren Wiley MD [address] [id number] Essential (primary) hypertension Social History Tobacco Use [...] LAB CHEMISTRY METHOD 03/06/2024 10:49 AM EST [facility] Potassium 4.4 3.5 - 5.5 mmol/L LAB CHEMISTRY METHOD 03/06/2024 10:49 AM EST [facility] Chloride 112(H) 96 - 110 mmol/L LAB CHEMISTRY METHOD 03/06/2024 10:49 AM EST [facility] CO2 28 21 - 32 mmol/L LAB CHEMISTRY METHOD 03/06/2024 10:49 AM [facility] Anion Gap 3 3 - 11 LAB CHEMISTRY METHOD 03/06/2024 10:49 AM [facility] Glucose 98 70 - 100 mg/dL LAB CHEMISTRY METHOD 03/06/2024 10:49 AM [facility] BUN 28(H) 5 - 25 mg/dL LAB CHEMISTRY METHOD 03/06/2024 10:49 AM [facility] Creatinine 0.95 0.70 - 1.30 mg/dL LAB CHEMISTRY METHOD 03/06/2024 10:49 AM [facility] eGFR 87 >=60 mL/min/1. 73m2 LAB CHEMISTRY METHOD 03/06/2024 10:49 AM [facility] Comment:Calculation based on the??Chronic Kidney Disease Epidemiology Collaboration (CKD-EPI) equation refit??without adjustment for race. BUN/Creatinine Ratio 29.5 LAB CHEMISTRY METHOD 03/06/2024 10:49 AM [facility] Calcium 8.5 8.5 - 10.5 mg/dL LAB CHEMISTRY METHOD 03/06/2024 10:49 AM [facility] Blood Venous blood specimen / Unknown Venipuncture / Unknown 03/06/2024 8:07 AM EST 03/06/2024 9:07 AM EST Lauren Wiley MD LAB BLOOD ORDERABLES Fin al Result [facility] [address] [place] [address], documented in this encounter Visit Diagnoses Diagnosis Essential (primary) hypertension Unspecified essential hypertension documented in this encounter Additional Health Concerns Infection Onset Date Last Indicated Resolved Time ESBL 03/29/2024 03/29/2024 documented as of this encounter Care Teams Weatherstrip Machine Operator Relationship Specialty Start Date End Date Lauren Wiley MD [address] [place] [address] PCP - General Family Medicine 01/28/24 documented as of this encounter
--- OUTSIDE RECORDS SUMMARY | 2024-06-08 16:37 | XMS_ITS | Clinical Summary ---
Author Organization 299 [facility] Address [address] [place] [address] Phone Care Team Providers Care Pulp Refiner Operator Name Role Phone Lauren Wiley MD Primary Care Provider + Encounters Date Type Department Care Team Description 05/28/[address] [facility] Lab [address] [place] [address] Lauren Wiley MD Gastrointestinal hemorrhage, unspecified 05/04/[address] [facility] Lab [address] [place] [address] Lauren Wiley MD Essential (primary) hypertension 03/29/2024 Lab Requisition [facility] Lab [address] [place] [address] Lauren Wiley MD Hematuria, unspecified 03/29/2024 Lab Requisition [facility] Lab [address] [place] [address] Lauren Wiley MD Hematuria, unspecified; Acute kidney failure, unspecified (CMS/HCC V24) 03/15/[address] [facility] Lab [address] [place] [address] Lauren Wiley MD Essential (primary) hypertension; Anemia, unspecified 03/15/[address] [facility] Lab [address] [place] [address] Lauren Wiley MD Diarrhea, unspecified; Enterocolitis due to Clostridium difficile, recurrent from Last 3 Months Social History Tobacco [...] COVID-19 Vaccine ( season) 2023 Influenza Vaccine (Season Ended) 2024 Hypertension/CHF/CAD Annual BMP Blood Test 05/28/2025 05/28/2024, 05/04/2024, 03/29/2024, Additional history exists RSV Immunization Adult Patients (1 - 1-dose 75+ series) 2029 HIB [...] age to complete this topic Meningococcal B Vaccine Aged Out No l onger eligible based on patient's age to complete this topic RSV Immunization Patients Under 20 months Aged Out No longer eligible based on patient's age to complete this topic Varicella Vaccines Aged Out No longer eligible based on patient's age to complete this topic Procedures Procedure Name Priority Date/Time Associated Diagnosis Comments BASIC METABOLIC PANEL Routine 05/28/2024 3:18 PM EDT Gastrointestinal hemorrhage, unspecified COMPLETE BLOOD COUNT Routine 05/28/2024 3:18 PM EDT Gastrointestinal hemorrhage, unspecified COMPLETE BLOOD COUNT Routine 05/04/2024 7:09 AM EDT Essential (primary) hypertension BASIC METABOLIC PANEL Routine 05/04/2024 7:09 AM EDT Essential (primary) hypertension CBC WITH AUTO DIFFERENTIAL Routine 03/29/2024 7:56 [...] unspecified Enterocolitis due to Clostridium difficile, recurrent from Last 3 Months Results * (ABNORMAL) Complete blood count (05/28/2024 3:18 PM EDT) Only the most recent of3 resultswithin the time period is included. WBC 4.2(L) 4.8 - 10.8 K/mcL LAB HEMETOLOGY METHOD [facility] RBC 3.00(L) 4.50 - 5.50 M/mcL LAB HEMETOLOGY METHOD 05/28/2024 5:29 PM [facility] Hemoglobin 9.8(L) 13.5 - 17.5 g/dL LAB HEMETOLOGY METHOD 05/28/2024 5:29 PM [facility] Hematocrit 30.7(L) 42.0 - 54.0 % LAB HEMETOLOGY METHOD 05/28/2024 5:29 PM [facility] MCV 102.3(H) 79.0 - 98.0 FL LAB HEMETOLOGY METHOD 05/28/2024 5:29 PM [facility] MCH 32.7(H) 27.0 - 32.0 pcg LAB HEMETOLOGY METHOD 05/28/2024 5:29 PM [facility] MCHC 31.9(L) 32.0 - 37.0 g/dL LAB HEMETOLOGY METHOD 05/28/2024 5:29 PM [facility] RDW 15.4(H) 11.0 - 15.0 % LAB HEMETOLOGY METHOD 05/28/2024 5:29 PM [facility] Platelets 206 130 - 400 K/mcL LAB HEMETOLOGY METHOD 05/28/2024 5:29 PM [facility] MPV 10.0 7.0 - 11.0 FL LAB HEMETOLOGY METHOD 05/28/2024 5:29 PM [facility] NRBC 0.0 <1.0 % LAB HEMETOLOGY METHOD 05/28/2024 5:29 PM [facility] NRBC Absolute 0.00 <0.10 K/mcL LAB HEMETOLOGY METHOD 05/28/2024 5:29 PM EDT [facility] Blood Venous blood specimen / Unknown Venipuncture / Unknown 05/28/2024 3:18 PM EDT 05/28/2024 3:44 PM EDT us Lauren Wiley MD LAB BLOOD ORDERABLES Fin al Result [facility] [address] [place] [address], * (ABNORMAL) Basic metabolic panel (05/28/2024 3:18 PM EDT) Only the most recent of2 resultswithin the time period is included. Sodium 141 133 - 145 mmol/L LAB CHEMISTRY METHOD 05/28/2024 4:50 PM [facility] Potassium 4.9 3.5 - 5.5 mmol/L LAB CHEMISTRY METHOD 05/28/2024 4:50 PM [facility] Chloride 111(H) 96 - 110 mmol/L LAB CHEMISTRY METHOD 05/28/2024 4:50 PM [facility] CO2 27 21 - 32 mmol/L LAB CHEMISTRY METHOD 05/28/2024 4:50 PM [facility] Anion Gap 3 3 - 11 LAB CHEMISTRY METHOD 05/28/2024 4:50 PM [facility] Glucose 93 70 - 100 mg/dL LAB CHEMISTRY METHOD 05/28/2024 4:50 PM [facility] BUN 33(H) 5 - 25 mg/dL LAB CHEMISTRY METHOD 05/28/2024 4:50 PM [facility] Creatinine 1.05 0.70 - 1.30 mg/dL LAB CHEMISTRY METHOD 05/28/2024 4:50 PM [facility] eGFR 77 >=60 mL/min/1. 73m2 LAB CHEMISTRY METHOD 05/28/2024 4:50 PM EDT [facility] Comment:Calculation based on the??Chronic Kidney Disease Epidemiology Collaboration (CKD-EPI) equation refit??without adjustment for race. BUN/Creatinine Ratio 31.4 LAB CHEMISTRY METHOD 05/28/2024 4:50 PM EDT [facility] Calcium 8.6 8.5 - 10.5 mg/dL LAB CHEMISTRY METHOD 05/28/2024 4:50 PM EDT [facility] Blood Venous blood specimen / Unknown Venipuncture / Unknown 05/28/2024 3:18 PM EDT 05/28/2024 3:44 PM EDT us Lauren Wiley MD LAB BLOOD ORDERABLES Fin al Result [facility] [address] [place] [address], * (ABNORMAL) CBC auto differential (03/29/2024 7:56 AM EST) WBC 3.7(L) 4.8 - 10.8 K/mcL LAB HEMETOLOGY METHOD 03/29/2024 10:59 AM [facility] RBC 3.20(L) 4.50 - 5.50 M/mcL LAB HEMETOLOGY METHOD 03/29/2024 10:59 AM [facility] Hemoglobin 10.4(L) 13.5 - 17.5 g/dL LAB HEMETOLOGY METHOD 03/29/2024 10:59 AM [facility] Hematocrit 32.4(L) 42.0 - 54.0 % LAB HEMETOLOGY METHOD 03/29/2024 10:59 AM [facility] MCV 100.6(H) 79.0 - 98.0 FL LAB HEMETOLOGY METHOD 03/29/2024 10:59 AM [facility] MCH 32.3(H) 27.0 - 32.0 pcg LAB HEMETOLOGY METHOD 03/29/2024 10:59 AM [facility] MCHC 32.1 32.0 - 37.0 g/dL LAB HEMETOLOGY METHOD 03/29/2024 10:59 AM [facility] RDW 14.7 11.0 - 15.0 % LAB HEMETOLOGY METHOD 03/29/2024 10:59 AM [facility] Platelets 162 130 - 400 K/mcL LAB HEMETOLOGY METHOD 03/29/2024 10:59 AM [facility] MPV 9.8 7.0 - 11.0 FL LAB HEMETOLOGY METHOD 03/29/2024 10:59 AM [facility] NRBC 0.0 <1.0 % LAB HEMETOLOGY METHOD 03/29/2024 10:59 AM [facility] NRBC Absolute 0.00 <0.10 K/[facility] LAB HEMETOLOGY METHOD 03/29/2024 10:59 AM [facility] Neutrophils Relative 51.8 % LAB HEMETOLOGY METHOD 03/29/2024 10:59 AM [facility] Lymphocytes Relative 31.7 % LAB HEMETOLOGY METHOD 03/29/2024 10:59 AM [facility] Monocytes Relative 11.1 % LAB HEMETOLOGY METHOD 03/29/2024 10:59 AM [facility] Eosinophils Relative 4.1 % LAB HEMETOLOGY METHOD 03/29/2024 10:59 AM [facility] Basophils Relative 0.8 % LAB HEMETOLOGY METHOD 03/29/2024 10:59 AM [facility] Immature Granulocytes Relative 0.5 % LAB HEMETOLOGY METHOD 03/29/2024 10:59 AM [facility] Neutrophils Absolute 1.91 1.50 - 7.00 K/mcL LAB HEMETOLOGY METHOD 03/29/2024 10:59 AM EST [facility] Lymphocytes Absolute 1.17 1.00 - 5.00 K/mcL LAB HEMETOLOGY METHOD 03/29/2024 10:59 AM EST [facility] Monocytes Absolute 0.41 0.20 - 1.00 K/mcL LAB HEMETOLOGY METHOD 03/29/2024 10:59 AM EST [facility] Eosinophils Absolute 0.15 0.00 - 0.50 K/mcL LAB HEMETOLOGY METHOD 03/29/2024 10:59 AM EST [facility] Basophils Absolute 0.03 0.00 - 0.20 K/[facility] LAB HEMETOLOGY METHOD 03/29/2024 10:59 AM EST [facility] Immature Granulocytes Absolute 0.02 0.00 - 0.03 K/mcL LAB HEMETOLOGY METHOD 03/29/2024 10:59 AM [facility] Blood Venous blood specimen / Unknown Venipuncture / Unknown 03/29/2024 7:56 AM EST 03/29/2024 10:14 AM EST Lauren Wiley MD LAB BLOOD ORDERABLES Fin al Result [facility] [address] [place] [address], * (ABNORMAL) Comprehensive metabolic panel (03/29/2024 7:56 AM EST) Only the most recent of2 resultswithin the time period is included. Sodium 140 133 - 145 mmol/L LAB CHEMISTRY METHOD 03/29/2024 1:43 PM EST [facility] Potassium 4.9 3.5 - 5.5 mmol/L LAB CHEMISTRY METHOD 03/29/2024 1:43 PM EST [facility] Comment:Hemolysis present Chloride 109 96 - 110 mmol/L LAB CHEMISTRY METHOD 03/29/2024 1:43 PM EST [facility] CO2 25 21 - 32 mmol/L LAB CHEMISTRY METHOD 03/29/2024 1:43 PM [facility] Anion Gap 6 3 - 11 LAB CHEMISTRY METHOD 03/29/2024 1:43 PM [facility] Glucose 85 70 - 100 mg/dL LAB CHEMISTRY METHOD 03/29/2024 1:43 PM [facility] BUN 34(H) 5 - 25 mg/dL LAB CHEMISTRY METHOD 03/29/2024 1:43 PM [facility] Creatinine 1.07 0.70 - 1.30 mg/dL LAB CHEMISTRY METHOD 03/29/2024 1:43 PM [facility] eGFR 75 >=60 mL/min/1. 73m2 LAB CHEMISTRY METHOD 03/29/2024 1:43 PM [facility] Comment:Calculation based on the??Chronic Kidney Disease Epidemiology Collaboration (CKD-EPI) equation refit??without adjustment for race. BUN/Creatinine Ratio 31.8 LAB CHEMISTRY METHOD 03/29/2024 1:43 PM [facility] Calcium 9.1 8.5 - 10.5 mg/dL LAB CHEMISTRY METHOD 03/29/2024 1:43 PM [facility] AST (SGOT) 25 10 - 42 unit/L LAB CHEMISTRY METHOD 03/29/2024 1:43 PM [facility] Comment:Hemolysis present ALT (SGPT) 28 10 - 60 unit/L LAB CHEMISTRY METHOD 03/29/2024 1:43 PM [facility] Alkaline Phosphatase 91 42 - 121 unit/L LAB CHEMISTRY METHOD 03/29/2024 1:43 PM [facility] Total Protein 6.1 6.0 - 8.0 g/dL LAB CHEMISTRY METHOD 03/29/2024 1:43 PM [facility] Albumin 2.4(L) 3.2 - 5.0 g/dL LAB CHEMISTRY METHOD 03/29/2024 1:43 PM [facility] Total Bilirubin 0.4 0.0 - 1.4 mg/dL LAB CHEMISTRY METHOD 03/29/2024 1:43 PM [facility] Blood Venous blood specimen / Unknown Venipuncture / Unknown 03/29/2024 7:56 AM EST 03/29/2024 10:14 AM EST us Lauren Wiley MD LAB BLOOD ORDERABLES Fin al Result [facility] [address] [place] [address], [place] [phone] * (ABNORMAL) Urinalysis with reflex microscopic (03/29/2024 12:00 AM EST) Specific [place] Urine 1.013 1.003 - 1.030 LAB URINALYSIS - AUTOMATED METHOD 03/29/2024 11:21 AM [facility] pH, Urine >=9.0(A) 5.0 - 8.0 pH LAB URINALYSIS - AUTOMATED METHOD 03/29/2024 11:21 AM [facility] Leukocytes, Urine Large(A) Negative LAB URINALYSIS - AUTOMATED METHOD 03/29/2024 11:21 AM [facility] Nitrite, Urine Positive(A) Negative LAB URINALYSIS - AUTOMATED METHOD 03/29/2024 11:21 AM [facility] Protein, Urine 100(A) <=Trace mg/dL LAB URINALYSIS - AUTOMATED METHOD 03/29/2024 11:21 AM [facility] Glucose, Urine Negative Negative mg/dL LAB URINALYSIS - AUTOMATED METHOD 03/29/2024 11:21 AM [facility] Ketones, Urine Negative Negative mg/dL LAB URINALYSIS - AUTOMATED METHOD 03/29/2024 11:21 AM [facility] Urobilinogen , Urine 0.2 0.2 - 1.0 mg/dL LAB URINALYSIS - AUTOMATED METHOD 03/29/2024 11:21 AM [facility] Bilirubin, Urine Negative Negative LAB URINALYSIS - AUTOMATED METHOD 03/29/2024 11:21 AM [facility] Blood, Urine Large(A) Negative LAB URINALYSIS - AUTOMATED METHOD 03/29/2024 11:21 AM [facility] RBC, Urine 264(H) 0 - 4 /HPF LAB URINALYSIS - AUTOMATED METHOD 03/29/2024 11:21 AM [facility] WBC, Urine 40(H) 0 - 4 /HPF LAB URINALYSIS - AUTOMATED METHOD 03/29/2024 11:21 AM [facility] Squamous Epithelial, Urine 16 0 - 60 /LPF LAB URINALYSIS - AUTOMATED METHOD 03/29/2024 11:21 AM [facility] Bacteria, Urine Moderate(A) Negative /HPF LAB URINALYSIS - AUTOMATED METHOD 03/29/2024 11:21 AM [facility] Hyaline Casts, Urine 5.2(H) 0 - 3 /LPF LAB URINALYSIS - AUTOMATED METHOD 03/29/2024 11:21 AM [facility] Urine Urine specimen from urethra / Unknown 03/29/2024 03/29/2024 10:16 AM EST Lauren Wiley MD LAB URINE ORDERABLES Fin al Result [facility] [address] [place] [address], * (ABNORMAL) Culture urine (03/29/2024 12:00 AM EST) Culture, Urine >100,000 CFU/mL Providencia stuartii(A) AL 04/02/2024 8:09 AM [facility] Comment: This is an edited result. Previous organism was Gram negative bacilli on 03/30/2024 at 1021 EST. Culture, Urine 50,000-100,000 CFU/mL Escherichia coli ESBL(A) AL 04/02/2024 8:09 AM EST [facility] Comment: THIS ORGANISM IS POSITIVE FOR [...] Unknown 03/29/2024 03/29/2024 10:16 AM EST Narrative [facility] - 04/02/2024 8:09 AM EST Additional [...] Trimethoprim/Sulfa methoxazol e AL >=320 ug/ml: Resistant Lauren Wiley MD LAB MICROBIOLOGY - GENER AL ORDERABLES Final Result Performing Organization Address [facility]/ZIP Co de Phone Number [facility] [address] [place] [address], [place] [phone] * Clostridium difficile toxin (03/14/2024 10:25 PM EST) Clostridium difficile GDH Antigen Negative Negative 03/15/2024 1:20 PM EST [facility] C difficile Toxins A+B, EIA Negative Negative 03/15/2024 1:20 PM EST [facility] Comment:NEGATIVE FOR TOXIN P RODUCING CLOSTRIDIOIDES DIFFICILE, NO ADDITIONAL TESTING IS NECESSARY. Stool Rectum structure / Unknown Non-blood Collection / Unknown 03/14/2024 10:25 PM EST 03/15/2024 12:16 PM EST Lauren Wiley MD LAB MICROBIOLOGY - GENER AL ORDERABLES Final Result Performing Organization Address [facility]/ZIP Co de Phone Number [facility] [address] [place] [address], [place] [phone] from Last 3 Months Additional Health Concerns Infection Onset Date Last Indicated ESBL 03/29/2024 03/29/2024 Insurance [facility] MEDICARE Member Subscriber Plan / Payer (Ef fective 2020-Present) Name:Wyatt Castillo Relation to Subscriber:Self Name:Wyatt Castillo Payer ID:[id number] Group ID:[id number] Type:Not on file Address: [facility] [address] [phone] Care Teams Pulp Refiner Operator Relationship Specialty Start Date End Date Lauren Wiley MD [address] [place] [address] PCP - General Family Medicine 01/28/24
--- OUTSIDE RECORDS SUMMARY | 2024-06-08 16:37 | XMS_ITS | Encounter Summary ---
Author Organization [email or web address] Address [address] [place] [address] Care Team Providers Care Steam Pipe Fitter Name Role Phone Lauren Wiley MD Primary Care Provider + Encounter Details Date Type Department Care Team (Late st Contact Info) Description 03/15/2024 Lab Requisition [facility] [address] [place] [address] Lauren Wiley MD [address] [phone] Essential (primary) hypertension; Anemia, unspecified Social History [...] LAB CHEMISTRY METHOD 03/15/2024 3:[address] [facility] Potassium 4.3 3.5 - 5.5 mmol/L LAB CHEMISTRY METHOD 03/15/2024 3:[address] [facility] Chloride 114(H) 96 - 110 mmol/L LAB CHEMISTRY METHOD 03/15/2024 3:35 PM [facility] CO2 26 21 - 32 mmol/L LAB CHEMISTRY METHOD 03/15/2024 3:35 PM [facility] Anion Gap 2(L) 3 - 11 LAB CHEMISTRY METHOD 03/15/2024 3:35 PM [facility] Glucose 98 70 - 100 mg/dL LAB CHEMISTRY METHOD 03/15/2024 3:35 PM [facility] BUN 33(H) 5 - 25 mg/dL LAB CHEMISTRY METHOD 03/15/2024 3:35 PM [facility] Creatinine 1.00 0.70 - 1.30 mg/dL LAB CHEMISTRY METHOD 03/15/2024 3:35 PM [facility] eGFR 81 >=60 mL/min/1. 73m2 LAB CHEMISTRY METHOD 03/15/2024 3:35 PM [facility] Comment:Calculation based on the??Chronic Kidney Disease Epidemiology Collaboration (CKD-EPI) equation refit??without adjustment for race. BUN/Creatinine Ratio 33.0 LAB CHEMISTRY METHOD 03/15/2024 3:35 PM [facility] Calcium 8.6 8.5 - 10.5 mg/dL LAB CHEMISTRY METHOD 03/15/2024 3:35 PM [facility] AST (SGOT) 19 10 - 42 unit/L LAB CHEMISTRY METHOD 03/15/2024 3:35 PM [facility] ALT (SGPT) 22 10 - 60 unit/L LAB CHEMISTRY METHOD 03/15/2024 3:35 PM [facility] Alkaline Phosphatase 91 42 - 121 unit/L LAB CHEMISTRY METHOD 03/15/2024 3:35 PM [facility] Total Protein 5.7(L) 6.0 - 8.0 g/dL LAB CHEMISTRY METHOD 03/15/2024 3:35 PM [facility] Albumin 2.3(L) 3.2 - 5.0 g/dL LAB CHEMISTRY METHOD 03/15/2024 3:35 PM [facility] Total Bilirubin 0.4 0.0 - 1.4 mg/dL LAB CHEMISTRY METHOD 03/15/2024 3:35 PM [facility] Blood Venous blood specimen / Unknown Venipuncture / Unknown 03/15/2024 5:05 AM EST 03/15/2024 11:34 AM EST us Lauren Wiley MD LAB BLOOD ORDERABLES Fin al Result [facility] [address] [place] [address], * (ABNORMAL) Complete blood count (03/15/2024 5:05 AM EST) WBC 4.1(L) 4.8 - 10.8 K/mcL LAB HEMETOLOGY METHOD 03/15/2024 12:22 PM [facility] RBC 3.10(L) 4.50 - 5.50 M/mcL LAB HEMETOLOGY METHOD 03/15/2024 12:22 PM [facility] Hemoglobin 10.1(L) 13.5 - 17.5 g/dL LAB HEMETOLOGY METHOD 03/15/2024 12:22 PM [facility] Hematocrit 31.0(L) 42.0 - 54.0 % LAB HEMETOLOGY METHOD 03/15/2024 12:22 PM [facility] MCV 99.4(H) 79.0 - 98.0 FL LAB HEMETOLOGY METHOD 03/15/2024 12:22 PM [facility] MCH 32.4(H) 27.0 - 32.0 pcg LAB HEMETOLOGY METHOD 03/15/2024 12:22 PM [facility] MCHC 32.6 32.0 - 37.0 g/dL LAB HEMETOLOGY METHOD 03/15/2024 12:22 PM [facility] RDW 15.5(H) 11.0 - 15.0 % LAB HEMETOLOGY METHOD 03/15/2024 12:22 PM [facility] Platelets 137 130 - 400 K/mcL LAB HEMETOLOGY METHOD 03/15/2024 12:22 PM [facility] MPV 10.7 7.0 - 11.0 FL LAB HEMETOLOGY METHOD 03/15/2024 12:22 PM [facility] NRBC 0.0 <1.0 % LAB HEMETOLOGY METHOD 03/15/2024 12:22 PM [facility] NRBC Absolute 0.00 <0.10 K/mcL LAB HEMETOLOGY METHOD 03/15/2024 12:22 PM [facility] Blood Venous blood specimen / Unknown Venipuncture / Unknown 03/15/2024 5:05 AM EST 03/15/2024 11:34 AM EST Lauren Wiley MD LAB BLOOD ORDERABLES Fin al Result [facility] [address] [place] [address], documented in this encounter Visit Diagnoses Diagnosis Essential (primary) hypertension Unspecified essential hypertension Anemia, unspecified documented in this encounter Additional Health Concerns Infection Onset Date Last Indicated Resolved Time ESBL 03/29/2024 03/29/2024 documented as of this encounter Care Teams Steam Pipe Fitter Relationship Specialty Start Date End Date Lauren Wiley MD [address] [place] [address] PCP - General Family Medicine 01/28/24 documented as of this encounter
--- OUTSIDE RECORDS SUMMARY | 2024-06-08 16:37 | XMS_ITS | Encounter Summary ---
Author Organization [employer] [facility] Address [address] [place] [address] Care Team Providers Care Urban Planner Name Role Phone Lauren Wiley MD Primary Care Provider + Encounter Details Date Type Department Care Team (Late st Contact Info) Description 02/14/2024 Lab Requisition [facility] [address] [place] [address] Lauren Wiley MD [address] [phone] Pyuria Social History Tobacco Use Types Packs/Day [...] LAB CHEMISTRY METHOD 02/14/2024 11:12 AM EST [facility] Potassium 3.6 3.5 - 5.5 mmol/L LAB CHEMISTRY METHOD 02/14/2024 11:12 AM EST [facility] Chloride 108 96 - 110 mmol/L LAB CHEMISTRY METHOD 02/14/2024 11:12 AM EST [facility] CO2 32 21 - 32 mmol/L LAB CHEMISTRY METHOD 02/14/2024 11:12 AM [facility] Anion Gap 2(L) 3 - 11 LAB CHEMISTRY METHOD 02/14/2024 11:12 AM [facility] Glucose 106(H) 70 - 100 mg/dL LAB CHEMISTRY METHOD 02/14/2024 11:12 AM [facility] BUN 19 5 - 25 mg/dL LAB CHEMISTRY METHOD 02/14/2024 11:12 AM [facility] Creatinine 0.94 0.70 - 1.30 mg/dL LAB CHEMISTRY METHOD 02/14/2024 11:12 AM [facility] eGFR 88 >=60 mL/min/1. 73m2 LAB CHEMISTRY METHOD 02/14/2024 11:12 AM [facility] Comment:Calculation based on the??Chronic Kidney Disease Epidemiology Collaboration (CKD-EPI) equation refit??without adjustment for race. BUN/Creatinine Ratio 20.2 LAB CHEMISTRY METHOD 02/14/2024 11:12 AM [facility] Calcium 8.6 8.5 - 10.5 mg/dL LAB CHEMISTRY METHOD 02/14/2024 11:12 AM [facility] AST (SGOT) 14 10 - 42 unit/L LAB CHEMISTRY METHOD 02/14/2024 11:12 AM [facility] ALT (SGPT) 12 10 - 60 unit/L LAB CHEMISTRY METHOD 02/14/2024 11:12 AM [facility] Alkaline Phosphatase 85 42 - 121 unit/L LAB CHEMISTRY METHOD 02/14/2024 11:12 AM [facility] Total Protein 4.9(L) 6.0 - 8.0 g/dL LAB CHEMISTRY METHOD 02/14/2024 11:12 AM [facility] Albumin 2.1(L) 3.2 - 5.0 g/dL LAB CHEMISTRY METHOD 02/14/2024 11:12 AM [facility] Total Bilirubin 0.7 0.0 - 1.4 mg/dL LAB CHEMISTRY METHOD 02/14/2024 11:12 AM [facility] Blood Venous blood specimen / Unknown Venipuncture / Unknown 02/14/2024 7:10 AM EST 02/14/2024 9:37 AM EST us Lauren Wiley MD LAB BLOOD ORDERABLES Fin al Result [facility] [address] [place] [address], * (ABNORMAL) Complete blood count (02/14/2024 7:10 AM EST) WBC 4.7(L) 4.8 - 10.8 K/mcL LAB HEMETOLOGY METHOD 02/14/2024 10:38 AM [facility] RBC 3.20(L) 4.50 - 5.50 M/mcL LAB HEMETOLOGY METHOD 02/14/2024 10:38 AM [facility] Hemoglobin 10.1(L) 13.5 - 17.5 g/dL LAB HEMETOLOGY METHOD 02/14/2024 10:38 AM [facility] Hematocrit 30.9(L) 42.0 - 54.0 % LAB HEMETOLOGY METHOD 02/14/2024 10:38 AM [facility] MCV 95.4 79.0 - 98.0 FL LAB HEMETOLOGY METHOD 02/14/2024 10:38 AM [facility] MCH 31.2 27.0 - 32.0 pcg LAB HEMETOLOGY METHOD 02/14/2024 10:38 AM [facility] MCHC 32.7 32.0 - 37.0 g/dL LAB HEMETOLOGY METHOD 02/14/2024 10:38 AM [facility] RDW 15.1(H) 11.0 - 15.0 % LAB HEMETOLOGY METHOD 02/14/2024 10:38 AM EST [facility] Platelets 145 130 - 400 K/mcL LAB HEMETOLOGY METHOD 02/14/2024 10:38 AM EST [facility] MPV 9.6 7.0 - 11.0 FL LAB HEMETOLOGY METHOD 02/14/2024 10:38 AM EST [facility] NRBC 0.0 <1.0 % LAB HEMETOLOGY METHOD 02/14/2024 10:38 AM EST [facility] NRBC Absolute 0.00 <0.10 K/mcL LAB HEMETOLOGY METHOD 02/14/2024 10:38 AM [facility] Blood Venous blood specimen / Unknown Venipuncture / Unknown 02/14/2024 7:10 AM EST 02/14/2024 9:37 AM EST us Lauren Wiley MD LAB BLOOD ORDERABLES Fin al Result [facility] [address] [place] [address], documented in this encounter Visit Diagnoses Diagnosis Pyuria Other nonspecific finding on examination of urine documented in this encounter Additional Health Concerns Infection Onset Date Last Indicated Resolved Time ESBL 03/29/2024 03/29/2024 documented as of this encounter Care Teams Urban Planner Relationship Specialty Start Date End Date Lauren Wiley MD [address] [place] [address] PCP - General Family Medicine 01/28/24 documented as of this encounter
--- OUTSIDE RECORDS SUMMARY | 2024-06-08 16:37 | XMS_ITS | Encounter Summary ---
Author Organization [employer] Address [address] [place] [address] Care Team Providers Care University Lecturer Name Role Phone Lauren Wiley MD Primary Care Provider + Encounter Details Date Type Department Care Team (Late st Contact Info) Description 01/28/2024 Lab Requisition [facility] [address] [place] [address] Lauren Wiley MD [address] [phone] Elevated white blood cell count, unspecified Social [...] LAB CHEMISTRY METHOD 01/28/2024 11:23 AM EST [facility] Potassium 3.9 3.5 - 5.5 mmol/L LAB CHEMISTRY METHOD 01/28/2024 11:23 AM EST [facility] Chloride 114(H) 96 - 110 mmol/L LAB CHEMISTRY METHOD 01/28/2024 11:[address] [facility] CO2 25 21 - 32 mmol/L LAB CHEMISTRY METHOD 01/28/2024 11:[address] [facility] Anion Gap 5 3 - 11 LAB CHEMISTRY METHOD 01/28/2024 11:[address] [facility] Glucose 94 70 - 100 mg/dL LAB CHEMISTRY METHOD 01/28/2024 11:[address] [facility] BUN 17 5 - 25 mg/dL LAB CHEMISTRY METHOD 01/28/2024 11:[address] [facility] Creatinine 0.83 0.70 - 1.30 mg/dL LAB CHEMISTRY METHOD 01/28/2024 11:[address] [facility] eGFR 95 >=60 mL/min/1. 73m2 LAB CHEMISTRY METHOD 01/28/2024 11:[address] [facility] Comment:Calculation based on the??Chronic Kidney Disease Epidemiology Collaboration (CKD-EPI) equation refit??without adjustment for race. BUN/Creatinine Ratio 20.5 LAB CHEMISTRY METHOD 01/28/2024 11:[address] [facility] Calcium 8.3(L) 8.5 - 10.5 mg/dL LAB CHEMISTRY METHOD 01/28/2024 11:[address] [facility] Blood Venous blood specimen / Unknown Venipuncture / Unknown 01/28/2024 5:27 AM EST 01/28/2024 10:37 AM EST us Lauren Wiley MD LAB BLOOD ORDERABLES Fin al Result [facility] [address] [place] [address], * (ABNORMAL) Complete blood count (01/28/2024 5:27 AM EST) WBC 4.2(L) 4.8 - 10.8 K/mcL LAB HEMETOLOGY METHOD 01/28/2024 11:[address] [facility] RBC 3.40(L) 4.50 - 5.50 M/mcL LAB HEMETOLOGY METHOD 01/28/2024 11:[address] [facility] Hemoglobin 10.5(L) 13.5 - 17.5 g/dL LAB HEMETOLOGY METHOD 01/28/2024 11:[address] [facility] Hematocrit 32.3(L) 42.0 - 54.0 % LAB HEMETOLOGY METHOD 01/28/2024 11:[address] [facility] MCV 96.4 79.0 - 98.0 FL LAB HEMETOLOGY METHOD 01/28/2024 11:[address] [facility] MCH 31.3 27.0 - 32.0 pcg LAB HEMETOLOGY METHOD 01/28/2024 11:[address] [facility] MCHC 32.5 32.0 - 37.0 g/dL LAB HEMETOLOGY METHOD 01/28/2024 11:[address] [facility] RDW 14.4 11.0 - 15.0 % LAB HEMETOLOGY METHOD 01/28/2024 11:[address] [facility] Platelets 132 130 - 400 K/mcL LAB HEMETOLOGY METHOD 01/28/2024 11:[address] [facility] MPV 9.7 7.0 - 11.0 FL LAB HEMETOLOGY METHOD 01/28/2024 11:[address] [facility] NRBC 0.0 <1.0 % LAB HEMETOLOGY METHOD 01/28/2024 11:[address] [facility] NRBC Absolute 0.00 <0.10 K/mcL LAB HEMETOLOGY METHOD 01/28/2024 11:[address] [facility] Blood Venous blood specimen / Unknown Venipuncture / Unknown 01/28/2024 5:27 AM EST 01/28/2024 10:37 AM EST us Lauren Wiley MD LAB BLOOD ORDERABLES Fin al Result [facility] [address] [place] [address], documented in this encounter Visit Diagnoses Diagnosis Elevated white blood cell count, unspecified documented in this encounter Additional Health Concerns Infection Onset Date Last Indicated Resolved Time ESBL 03/29/2024 03/29/2024 documented as of this encounter Care Teams University Lecturer Relationship Specialty Start Date End Date Lauren Wiley MD [address] [place] [address] PCP - General Family Medicine 01/28/24 documented as of this encounter
--- OUTSIDE RECORDS SUMMARY | 2024-06-08 16:37 | XMS_ITS | Encounter Summary ---
Author Organization [employer] Address [address] [place] [address] Care Team Providers Care Photographic Engineer Name Role Phone Lauren Wiley MD Primary Care Provider + Encounter Details Date Type Department Care Team (Late st Contact Info) Description 05/04/2024 Lab Requisition [facility] [address] [place] [address] Lauren Wiley MD [address] [phone] Essential (primary) hypertension Social History Tobacco Use [...] Associated Diagnosis Comments COMPLETE BLOOD COUNT Routine 05/04/2024 7:09 AM EDT Essential (primary) hypertension BASIC METABOLIC PANEL Routine 05/04/2024 7:09 AM EDT Essential (primary) hypertension documented in this encounter Results * (ABNORMAL) Complete blood count (05/04/2024 7:09 AM EDT) WBC 5.1 4.8 - 10.8 K/[facility] LAB HEMETOLOGY METHOD 05/04/2024 9:[address] [facility] RBC 3.00(L) 4.50 - 5.50 M/[facility] LAB HEMETOLOGY METHOD 05/04/2024 9:[address] [facility] Hemoglobin 9.7(L) 13.5 - 17.5 g/dL LAB HEMETOLOGY METHOD 05/04/2024 9:[address] [facility] Hematocrit 29.4(L) 42.0 - 54.0 % LAB HEMETOLOGY METHOD 05/04/2024 9:[address] [facility] MCV 96.7 79.0 - 98.0 FL LAB HEMETOLOGY METHOD 05/04/2024 9:[address] [facility] MCH 31.9 27.0 - 32.0 pcg LAB HEMETOLOGY METHOD 05/04/2024 9:[address] [facility] MCHC 33.0 32.0 - 37.0 g/dL LAB HEMETOLOGY METHOD 05/04/2024 9:[address] [facility] RDW 14.2 11.0 - 15.0 % LAB HEMETOLOGY METHOD 05/04/2024 9:[address] [facility] Platelets 190 130 - 400 K/mcL LAB HEMETOLOGY METHOD 05/04/2024 9:[address] [facility] MPV 10.3 7.0 - 11.0 FL LAB HEMETOLOGY METHOD 05/04/2024 9:[address] [facility] NRBC 0.0 <1.0 % LAB HEMETOLOGY METHOD 05/04/2024 9:[address] [facility] NRBC Absolute 0.00 <0.10 K/mcL LAB HEMETOLOGY METHOD 05/04/2024 9:[address] [facility] Blood Venous blood specimen / Unknown 05/04/2024 7:09 AM EDT 05/04/2024 9:06 AM EDT us Lauren Wiley MD LAB BLOOD ORDERABLES Fin al Result [facility] [address] [place] [address], [place] [phone] * (ABNORMAL) Basic metabolic panel (05/04/2024 7:09 AM EDT) Sodium 142 133 - 145 mmol/L LAB CHEMISTRY METHOD 05/04/2024 10:07 AM [facility] Potassium 3.8 3.5 - 5.5 mmol/L LAB CHEMISTRY METHOD 05/04/2024 10:07 AM [facility] Chloride 108 96 - 110 mmol/L LAB CHEMISTRY METHOD 05/04/2024 10:07 AM [facility] CO2 28 21 - 32 mmol/L LAB CHEMISTRY METHOD 05/04/2024 10:07 AM [facility] Anion Gap 6 3 - 11 LAB CHEMISTRY METHOD 05/04/2024 10:07 AM [facility] Glucose 86 70 - 100 mg/dL LAB CHEMISTRY METHOD 05/04/2024 10:07 AM [facility] BUN 23 5 - 25 mg/dL LAB CHEMISTRY METHOD 05/04/2024 10:07 AM [facility] Creatinine 0.91 0.70 - 1.30 mg/dL LAB CHEMISTRY METHOD 05/04/2024 10:07 AM [facility] eGFR 91 >=60 mL/min/1. 73m2 LAB CHEMISTRY METHOD 05/04/2024 10:07 AM [facility] Comment:Calculation based on the??Chronic Kidney Disease Epidemiology Collaboration (CKD-EPI) equation refit??without adjustment for race. BUN/Creatinine Ratio 25.3 LAB CHEMISTRY METHOD 05/04/2024 10:07 AM [facility] Calcium 8.4(L) 8.5 - 10.5 mg/dL LAB CHEMISTRY METHOD 05/04/2024 10:07 AM [facility] Blood Venous blood specimen / Unknown Venipuncture / Unknown 05/04/2024 7:09 AM EDT 05/04/2024 9:05 AM EDT us Lauren Wiley MD LAB BLOOD ORDERABLES Fin al Result Performing Organization Address City/[facility]/ZIP Co de Phone Number [facility] [address] [place] [address], documented in this encounter Visit Diagnoses Diagnosis Essential (primary) hypertension Unspecified essential hypertension documented in this encounter Additional Health Concerns Infection Onset Date Last Indicated Resolved Time ESBL 03/29/2024 03/29/2024 documented as of this encounter Care Teams Photographic Engineer Relationship Specialty Start Date End Date Lauren Wiley MD [address] [place] [address] PCP - General Family Medicine 01/28/24 documented as of this encounter
--- OUTSIDE RECORDS SUMMARY | 2024-06-08 16:37 | XMS_ITS | Encounter Summary ---
Author Organization [employer] Address [address] [place] [address] Care Team Providers Care Gas Check Pad Maker Name Role Phone Lauren Wiley MD Primary Care Provider + Encounter Details Date Type Department Care Team (Late st Contact Info) Description 03/29/2024 Lab Requisition [facility] - Main Lab [address] [place] [address] Lauren Wiley MD [address] [address] Hematuria, unspecified; Acute kidney failure, unspecified (CMS/HCC V24) Social History Tobacco Use Types Packs/Day Years [...] AM EST) WBC 3.7(L) 4.8 - 10.8 K/[facility] LAB HEMETOLOGY METHOD 03/29/2024 10:59 AM [facility] RBC 3.20(L) 4.50 - 5.50 M/mcL LAB HEMETOLOGY METHOD 03/29/2024 10:59 AM [facility] Hemoglobin 10.4(L) 13.5 - 17.5 g/dL LAB HEMETOLOGY METHOD 03/29/2024 10:59 AM [facility] LAB Hematocrit 32.4(L) 42.0 - 54.0 % LAB HEMETOLOGY METHOD 03/29/2024 10:59 AM [facility] LAB MCV 100.6(H) 79.0 - 98.0 FL LAB HEMETOLOGY METHOD 03/29/2024 10:59 AM [facility] LAB MCH 32.3(H) 27.0 - 32.0 pcg LAB HEMETOLOGY METHOD 03/29/2024 10:59 AM [facility] LAB MCHC 32.1 32.0 - 37.0 g/dL LAB HEMETOLOGY METHOD 03/29/2024 10:59 AM [facility] LAB RDW 14.7 11.0 - 15.0 % LAB HEMETOLOGY METHOD 03/29/2024 10:59 AM [facility] LAB Platelets 162 130 - 400 K/mcL LAB HEMETOLOGY METHOD 03/29/2024 10:59 AM [facility] LAB MPV 9.8 7.0 - 11.0 FL LAB HEMETOLOGY METHOD 03/29/2024 10:59 AM [facility] LAB NRBC 0.0 <1.0 % LAB HEMETOLOGY METHOD 03/29/2024 10:59 AM [facility] LAB NRBC Absolute 0.00 <0.10 K/mcL LAB HEMETOLOGY METHOD 03/29/2024 10:59 AM [facility] Neutrophils Relative 51.8 % LAB HEMETOLOGY METHOD 03/29/2024 10:59 AM [facility] Lymphocytes Relative 31.7 % LAB HEMETOLOGY METHOD 03/29/2024 10:59 AM [facility] Monocytes Relative 11.1 % LAB HEMETOLOGY METHOD 03/29/2024 10:59 AM [facility] Eosinophils Relative 4.1 % LAB HEMETOLOGY METHOD 03/29/2024 10:59 AM [facility] Basophils Relative 0.8 % LAB HEMETOLOGY METHOD 03/29/2024 10:59 AM [facility] Immature Granulocytes Relative 0.5 % LAB HEMETOLOGY METHOD 03/29/2024 10:59 AM [facility] Neutrophils Absolute 1.91 1.50 - 7.00 K/mcL LAB HEMETOLOGY METHOD 03/29/2024 10:59 AM [facility] Lymphocytes Absolute 1.17 1.00 - 5.00 K/mcL LAB HEMETOLOGY METHOD 03/29/2024 10:59 AM [facility] Monocytes Absolute 0.41 0.20 - 1.00 K/mcL LAB HEMETOLOGY METHOD 03/29/2024 10:59 AM [facility] Eosinophils Absolute 0.15 0.00 - 0.50 K/mcL LAB HEMETOLOGY METHOD 03/29/2024 10:59 AM [facility] Basophils Absolute 0.03 0.00 - 0.20 K/mcL LAB HEMETOLOGY METHOD 03/29/2024 10:59 AM [facility] Immature Granulocytes Absolute 0.02 0.00 - 0.03 K/mcL LAB HEMETOLOGY METHOD 03/29/2024 10:59 AM [facility] Blood Venous blood specimen / Unknown Venipuncture / Unknown 03/29/2024 7:56 AM EST 03/29/2024 10:14 AM EST us Lauren Wiley MD LAB BLOOD ORDERABLES Fin al Result [facility] [address] [place] [address], * (ABNORMAL) Comprehensive metabolic panel (03/29/2024 7:56 AM EST) Sodium 140 133 - 145 mmol/L LAB CHEMISTRY METHOD 03/29/2024 1:43 PM [facility] Potassium 4.9 3.5 - 5.5 mmol/L LAB CHEMISTRY METHOD 03/29/2024 1:43 PM [facility] LAB Comment:Hemolysis present Chloride 109 96 - 110 mmol/L LAB CHEMISTRY METHOD 03/29/2024 1:43 PM [facility] CO2 25 21 - 32 mmol/L LAB CHEMISTRY METHOD 03/29/2024 1:43 PM [facility] Anion Gap 6 3 - 11 LAB CHEMISTRY METHOD 03/29/2024 1:43 PM [facility] Glucose 85 70 - 100 mg/dL LAB CHEMISTRY METHOD 03/29/2024 1:43 PM [facility] BUN 34(H) 5 - 25 mg/dL LAB CHEMISTRY METHOD 03/29/2024 1:43 PM [facility] Creatinine 1.07 0.70 - 1.30 mg/dL LAB CHEMISTRY METHOD 03/29/2024 1:43 PM [facility] LAB eGFR 75 >=60 mL/min/1. 73m2 LAB CHEMISTRY METHOD 03/29/2024 1:43 PM [facility] Comment:Calculation based on the??Chronic Kidney Disease Epidemiology Collaboration (CKD-EPI) equation refit??without adjustment for race. BUN/Creatinine Ratio 31.8 LAB CHEMISTRY METHOD 03/29/2024 1:43 PM [facility] Calcium 9.1 8.5 - 10.5 mg/dL LAB CHEMISTRY METHOD 03/29/2024 1:43 PM [facility] AST (SGOT) 25 10 - 42 unit/L LAB CHEMISTRY METHOD 03/29/2024 1:43 PM [facility] Comment:Hemolysis present ALT (SGPT) 28 10 - 60 unit/L LAB CHEMISTRY METHOD 03/29/2024 1:43 PM [facility] Alkaline Phosphatase 91 42 - 121 unit/L LAB CHEMISTRY METHOD 03/29/2024 1:43 PM [facility] Total Protein 6.1 6.0 - 8.0 g/dL LAB CHEMISTRY METHOD 03/29/2024 1:43 PM [facility] Albumin 2.4(L) 3.2 - 5.0 g/dL LAB CHEMISTRY METHOD 03/29/2024 1:43 PM [facility] Total Bilirubin 0.4 0.0 - 1.4 mg/dL LAB CHEMISTRY METHOD 03/29/2024 1:43 PM [facility] Blood Venous blood specimen / Unknown Venipuncture / Unknown 03/29/2024 7:56 AM EST 03/29/2024 10:14 AM EST Lauren Wiley MD LAB BLOOD ORDERABLES Fin al Result Performing Organization Address [facility]/State/[facility] Co de Phone Number [facility] [address] [place] [address], documented in this encounter Visit Diagnoses Diagnosis Hematuria, unspecified Acute kidney failure, unspecified (CMS/HCC V24) Acute kidney failure, unspecified documented in this encounter Additional Health Concerns Infection Onset Date Last Indicated Resolved Time ESBL 03/29/2024 03/29/2024 documented as of this encounter Care Teams Gas Check Pad Maker Relationship Specialty Start Date End Date Lauren Wiley MD [address] [place] [address] PCP - General Family Medicine 01/28/24 documented as of this encounter
--- OUTSIDE RECORDS SUMMARY | 2024-06-08 16:37 | XMS_ITS | Encounter Summary ---
Author Organization [employer] Address [address] [place] [address] Care Team Providers Care Supply Officer Name Role Phone Lauren Wiley MD Primary Care Provider + Encounter Details Date Type Department Care Team (Late st Contact Info) Description 05/28/2024 Lab Requisition [facility] Lab [address] [place] [address] Lauren Wiley MD [address] [phone] Gastrointestinal hemorrhage, unspecified Social History Tobacco Use Types Packs/Day [...] Associated Diagnosis Comments COMPLETE BLOOD COUNT Routine 05/28/2024 3:18 PM EDT Gastrointestinal hemorrhage, unspecified BASIC METABOLIC PANEL Routine 05/28/2024 3:18 PM EDT Gastrointestinal hemorrhage, unspecified documented in this encounter Results * (ABNORMAL) Basic metabolic panel (05/28/2024 3:18 PM EDT) Sodium 141 133 - 145 mmol/L LAB CHEMISTRY METHOD 05/28/2024 4:50 PM EDT [facility] Potassium 4.9 3.5 - 5.5 mmol/L LAB CHEMISTRY METHOD 05/28/2024 4:50 PM EDT [facility] Chloride 111(H) 96 - 110 mmol/L LAB CHEMISTRY METHOD 05/28/2024 4:50 PM EDT [facility] CO2 27 21 - 32 mmol/L LAB CHEMISTRY METHOD 05/28/2024 4:50 PM T [facility] Anion Gap 3 3 - 11 LAB CHEMISTRY METHOD 05/28/2024 4:50 PM [facility] Glucose 93 70 - 100 mg/dL LAB CHEMISTRY METHOD 05/28/2024 4:50 PM [facility] BUN 33(H) 5 - 25 mg/dL LAB CHEMISTRY METHOD 05/28/2024 4:50 PM [facility] Creatinine 1.05 0.70 - 1.30 mg/dL LAB CHEMISTRY METHOD 05/28/2024 4:50 PM [facility] eGFR 77 >=60 mL/min/1. 73m2 LAB CHEMISTRY METHOD 05/28/2024 4:50 PM T [facility] Comment:Calculation based on the??Chronic Kidney Disease Epidemiology Collaboration (CKD-EPI) equation refit??without adjustment for race. BUN/Creatinine Ratio 31.4 LAB CHEMISTRY METHOD 05/28/2024 4:50 PM [facility] Calcium 8.6 8.5 - 10.5 mg/dL LAB CHEMISTRY METHOD 05/28/2024 4:50 PM [facility] Blood Venous blood specimen / Unknown Venipuncture / Unknown 05/28/2024 3:18 PM EDT 05/28/2024 3:44 PM EDT us Lauren Wiley MD LAB BLOOD ORDERABLES Fin al Result [facility] [address] [place] [address], * (ABNORMAL) Complete blood count (05/28/2024 3:18 PM EDT) WBC 4.2(L) 4.8 - 10.8 K/mcL LAB HEMETOLOGY METHOD 05/28/2024 5:29 PM [facility] RBC 3.00(L) 4.50 - 5.50 M/mcL LAB HEMETOLOGY METHOD 05/28/2024 5:29 PM [facility] Hemoglobin 9.8(L) 13.5 - 17.5 g/dL LAB HEMETOLOGY METHOD 05/28/2024 5:29 PM [facility] Hematocrit 30.7(L) 42.0 - 54.0 % LAB HEMETOLOGY METHOD 05/28/2024 5:29 PM [facility] MCV 102.3(H) 79.0 - 98.0 FL LAB HEMETOLOGY METHOD 05/28/2024 5:29 PM [facility] MCH 32.7(H) 27.0 - 32.0 pcg LAB HEMETOLOGY METHOD 05/28/2024 5:29 PM [facility] MCHC 31.9(L) 32.0 - 37.0 g/dL LAB HEMETOLOGY METHOD 05/28/2024 5:29 PM [facility] RDW 15.4(H) 11.0 - 15.0 % LAB HEMETOLOGY METHOD 05/28/2024 5:29 PM [facility] Platelets 206 130 - 400 K/mcL LAB HEMETOLOGY METHOD 05/28/2024 5:29 PM [facility] MPV 10.0 7.0 - 11.0 FL LAB HEMETOLOGY METHOD 05/28/2024 5:29 PM [facility] NRBC 0.0 <1.0 % LAB HEMETOLOGY METHOD 05/28/2024 5:29 PM [facility] NRBC Absolute 0.00 <0.10 K/mcL LAB HEMETOLOGY METHOD 05/28/2024 5:29 PM [facility] Blood Venous blood specimen / Unknown Venipuncture / Unknown 05/28/2024 3:18 PM EDT 05/28/2024 3:44 PM EDT us Lauren Wiley MD LAB BLOOD ORDERABLES Fin al Result [facility] ([facility]) [facility] [address] [place] [address], documented in this encounter Visit Diagnoses Diagnosis Gastrointestinal hemorrhage, unspecified documented in this encounter Additional Health Concerns Infection Onset Date Last Indicated Resolved Time ESBL 03/29/2024 03/29/2024 documented as of this encounter Care Teams Supply Officer Relationship Specialty Start Date End Date Lauren Wiley MD [address] [place] [address] PCP - General Family Medicine 01/28/24 documented as of this encounter
--- OUTSIDE RECORDS SUMMARY | 2024-06-08 16:37 | XMS_ITS | Encounter Summary ---
Author Organization [employer] Address [address] [place] [address] Care Team Providers Care Concrete Floor Installer Name Role Phone Lauren Wiley MD Primary Care Provider + Encounter Details Date Type Department Care Team (Late st Contact Info) Description 03/15/[address] [facility] - Main Lab [address] [place] [address] Lauren Wiley MD [address] [phone] Diarrhea, unspecified; Enterocolitis due to Clostridium difficile, [...] Antigen Negative Negative 03/15/2024 1:20 PM EST [facility] C difficile Toxins A+B, EIA Negative Negative 03/15/2024 1:20 PM EST [facility] LAB Comment:NEGATIVE FOR TOXIN P RODUCING CLOSTRIDIOIDES DIFFICILE, NO ADDITIONAL TESTING IS NECESSARY. Stool Rectum structure / Unknown Non-blood Collection / Unknown 03/14/2024 10:25 PM EST 03/15/2024 12:16 PM EST us Lauren Wiley MD LAB MICROBIOLOGY - GENER AL ORDERABLES Final Result [facility] ([facility]) [facility] [address] [place] [address], documented in this encounter Visit Diagnoses Diagnosis Diarrhea, unspecified Enterocolitis due to Clostridium difficile, recurrent documented in this encounter Additional Health Concerns Infection Onset Date Last Indicated Resolved Time ESBL 03/29/2024 03/29/2024 documented as of this encounter Care Teams Concrete Floor Installer Relationship Specialty Start Date End Date Lauren Wiley MD [address] [place] [address] PCP - General Family Medicine 01/28/24 documented as of this encounter
--- OUTSIDE RECORDS SUMMARY | 2024-06-08 16:37 | XMS_ITS | Encounter Summary ---
Author Organization [facility] Address [address] [place] [address] Care Team Providers Care Stucco Mason Name Role Phone Lauren Wiley MD Primary Care Provider + Encounter Details Date Type Department Care Team (Late st Contact Info) Description 12/27/2023 Lab Requisition [facility] - Main Lab [address] [facility] [place] [address] Social History Tobacco Use Types [...] documented as of this encounter Care Teams Stucco Mason Relationship Specialty Start Date End Date Lauren Wiley MD [address] [place], [place] PCP - General Family Medicine 01/28/24 documented as of this encounter
--- OUTSIDE RECORDS SUMMARY | 2024-06-08 16:37 | XMS_ITS | Encounter Summary ---
Author Organization [employer] [facility] Address [address] [place] [address] Care Team Providers Care Cradle Slide Maker Name Role Phone Elder, Lauren Paulino MD Primary Care Provider + Encounter Details Date Type Department Care Team (Late st Contact Info) Description 03/03/2024 Lab Requisition [facility] Lab [address] [facility] [place] [address] Yoav Osorio MD [address] [place] [address] [address] [place] [phone] Essential (primary) hypertension Social History Tobacco Use [...] LAB CHEMISTRY METHOD 03/03/2024 11:04 AM EST [facility] Potassium 4.0 3.5 - 5.5 mmol/L LAB CHEMISTRY METHOD 03/03/2024 11:04 AM EST [facility] Chloride 118(H) 96 - 110 mmol/L LAB CHEMISTRY METHOD 03/03/2024 11:04 AM EST [facility] CO2 25 21 - 32 mmol/L LAB CHEMISTRY METHOD 03/03/2024 11:04 AM [facility] Anion Gap 2(L) 3 - 11 LAB CHEMISTRY METHOD 03/03/2024 11:04 AM [facility] Glucose 90 70 - 100 mg/dL LAB CHEMISTRY METHOD 03/03/2024 11:04 AM [facility] BUN 36(H) 5 - 25 mg/dL LAB CHEMISTRY METHOD 03/03/2024 11:04 AM [facility] Creatinine 0.99 0.70 - 1.30 mg/dL LAB CHEMISTRY METHOD 03/03/2024 11:04 AM [facility] eGFR 82 >=60 mL/min/1. 73m2 LAB CHEMISTRY METHOD 03/03/2024 11:04 AM [facility] Comment:Calculation based on the??Chronic Kidney Disease Epidemiology Collaboration (CKD-EPI) equation refit??without adjustment for race. BUN/Creatinine Ratio 36.4 LAB CHEMISTRY METHOD 03/03/2024 11:04 AM [facility] Calcium 8.1(L) 8.5 - 10.5 mg/dL LAB CHEMISTRY METHOD 03/03/2024 11:04 AM [facility] Blood Venous blood specimen / Unknown Venipuncture / Unknown 03/03/2024 5:53 AM EST 03/03/2024 9:12 AM EST us Yoav Osorio MD LAB BLOOD ORDERABLES Final Resu lt [facility] [address] [place] [address], documented in this encounter Visit Diagnoses Diagnosis Essential (primary) hypertension Unspecified essential hypertension documented in this encounter Additional Health Concerns Infection Onset Date Last Indicated Resolved Time ESBL 03/29/2024 03/29/2024 documented as of this encounter Care Teams Cradle Slide Maker Relationship Specialty Start Date End Date Lauren Wiley MD [address] [place] [address] PCP - General Family Medicine 01/28/24 documented as of this encounter
--- NOTE | 2024-06-08 18:30 | PC.NURSE ---
report given to nurse at [facility]
--- NOTE | 2024-06-09 06:11 | PC.NURSE ---
Lab called and reported critical result of 1 set of blood cultures drawn on 06/08/14 growing gram negative rods. This sheet writer called and reported results to ROSEANNE Barroso Overnight Cashier at [facility]. Copy of results also faxed for review.
== END 2024-06-08 19:03 | disposition skilled nursing facility (03) ==
PROVIDERS: Student in an Organized Health Care Education/Training Program; Emergency Provider Emergency Medicine
DX: T83.022A Displacement of nephrostomy catheter, initial encounter (principal); Y73.8 Miscellaneous gastroenterology and urology devices associated with adverse incidents, not elsewhere classified; Y92.129 Unspecified place in nursing home as the place of occurrence of the external cause; Z96.0 Presence of urogenital implants; E78.5 Hyperlipidemia, unspecified; Z87.440 Personal history of urinary (tract) infections
CPT/HCPCS: 36415; 50435; 51702; 80048; 80076; 81001; 81003; 83605; 83690; 84484; 85025; 87040; 87077; 87086; 87186; 87205; 96374; 99284; C1769; J0690; J2003; J2310; J3010; Q9967

== ENCOUNTER → 2024-06-08 12:20 | Outpatient (BNV) | payer OTHER, SELFPAY | PROVIDERS: Emergency Provider Emergency Medicine; Visit Provider Student in an Organized Health Care Education/Training Program | DX: N13.9 Obstructive and reflux uropathy, unspecified (principal); T83.022A Displacement of nephrostomy catheter, initial encounter | CPT/HCPCS: 50435 ==

== ENCOUNTER 2024-06-29 09:04 | Inpatient (IN) | payer OTHER, SELFPAY ==
[2024-06-29] VITALS (35 sets, daily range): BP systolic 71–150; BP diastolic 30–88; PULSE 46–418; RESP 12–20; TEMP 36.1–38.8; O2SAT 93–99; BMI 24.5; BMI 25.3
--- NOTE | ~2024-06-29 | CT_ITS ---
CLINICAL HISTORY: unwitnessed fall, geriatric patient --- Additional Notes or Special Instructions: c -collar is off CT cervical spine without contrast. COMPARISON: None FINDINGS: Mild apex left curvature of the midcervical spine. No evidence of acute vertebral body injury. Skull base and intracranial structures appear normal. Calcified plaque present at the carotid bulbs bilaterally. C2-C3: No significant neuroforaminal narrowing or spinal canal stenosis. C3-C4: Anterior marginal osteophytes. Uncovertebral joint hypertrophy. Mild right neural foraminal narrowing. C4-C5: Anterior marginal osteophytes. No significant neural foraminal narrowing. C5-C6: Anterior marginal osteophytes. Uncovertebral joint hypertrophy. No significant neural foraminal narrowing. C6-C7: Anterior marginal osteophytes. IMPRESSION: 1. No evidence of acute injury to the cervical spine. This document has been electronically signed by: Percy Caldera MD on 06/29/2024 16:18:47
--- NOTE | ~2024-06-29 | CT_ITS ---
CLINICAL HISTORY: unwitnessed fall CT head without contrast. COMPARISON: None FINDINGS: The visualized paranasal sinuses are clear. The mastoid air cells are clear. No calvarial fracture. Atherosclerotic intracranial vasculature. No evidence for mass or mass effect. No intracranial hemorrhage or abnormal extra-axial fluid collection. Encephalomalacia and gliosis within the left frontal/parietal region consistent with remote infarct or trauma. There is associated ex vacuo dilatation of the left lateral ventricle. No CT evidence of acute infarct. No hydrocephalus. There are periventricular areas of low attenuation compatible with mild white matter small vessel disease. Posterior fossa appears unremarkable. IMPRESSION: 1. No acute intracranial findings. This document has been electronically signed by: Percy Caldera MD on 06/29/2024 14:23:11
--- NOTE | ~2024-06-29 | XR_ITS ---
EXAMINATION: XR CHEST 1 VIEW HISTORY: AMS, fever COMPARISON: Comparison is made with the prior examination dated 04/19/2024. FINDINGS: Two AP portable views of the chest performed at 9:59 AM are submitted. There are low lung volumes. There is airspace opacity in the left lower lobe, consistent with atelectasis or pneumonia. The right lung is clear. There is no pleural effusion, pneumothorax, or pulmonary vascular congestion. The heart is normal in size. The aorta is calcified. There is degenerative disc disease of the spine.. The bones are intact. XR/XR chest 1V IMPRESSION: Low lung volumes. Left lower lobe atelectasis versus pneumonia. Electronically signed by: Ho Cruz MD 06/29/2024 10:12 AM EDT
--- NOTE | ~2024-06-29 | CT_ITS ---
EXAMINATION: CT ABDOMEN AND PELVIS WITH CONTRAST CLINICAL INFORMATION: Abdominal pain. COMPARISON: April 19, 2024. TECHNIQUE: Multidetector volumetric images were obtained from the superior aspect of the liver through the pubic symphysis following administration 85 mL of Omnipaque 350 intravenous contrast. Sagittal and coronal reformatted images were obtained on the technologist's workstation. Oral contrast: No This CT examination was performed using dose optimization techniques as appropriate, variously including the following: *Automated exposure control *Adjustment of mA and/or kV according to patient size (this includes techniques or standardized protocols for targeted exams where dose is matched to indication/reason for exam; i.e. extremities or head) *Use of iterative reconstruction technique DLP: 776.70 mGy centimeter. FINDINGS: LUNG BASES: Pulmonary patchy groundglass, lung bases and lingula. LIVER, GALLBLADDER, AND BILIARY TREE: Liver measures 13 cm. No focal lesion. Main portal veins and hepatic veins and intrahepatic portion of the IVC are patent. Gallbladder is contracted. No intrahepatic or extrahepatic biliary ductal dilatation. PANCREAS: No focal mass. No peripancreatic fluid collection. No main pancreatic ductal dilatation. SPLEEN: 12 cm. No focal lesion. ADRENAL GLANDS: No nodular lesions. KIDNEYS AND URETERS: Right kidney: There is a staghorn calculus in the pelvicalyceal system. Percutaneously placed nephrostomy tube with pigtail in the renal pelvis. No gross hydronephrosis. Cystic lesions. No gross renal mass. Multiple calculi in the lower pole of the pelvicalyceal system. Left kidney: No hydronephrosis. No nephrolithiasis. Cystic lesions. No gross renal mass Calculi in the distal ureters, bilaterally.. BLADDER: Suprapubic catheter in the collapsed bladder with wall thickening. Intraluminal gas/inferior likely postinstrumentation. GASTROINTESTINAL TRACT: Abundant stool and gas distended large intestine with a narrowed transition no rectosigmoid colon junction. No pericolonic edema pattern. No pneumoperitoneum. No pneumatosis intestinalis. No ascites. The appendix is normal. ABDOMINAL WALL: No gross umbilical hernia. Small fat-containing left inguinal and to a lesser extent right inguinal hernias. LYMPH NODES: Mild prominent, retroperitoneum. VASCULAR: Calcified plaques throughout the aorta and the mesenteric arteries and the origin of the main renal arteries. No aneurysm or dissection, abdominal aorta. PELVIC VISCERA: Prominent nonenlarged prostate gland. OSSEOUS STRUCTURES: Osteopenia versus osteoporosis. Multilevel thoracolumbar spondylosis. No acute fracture or gross listhesis. Skin breakdown extending into the mid sacrum with the bony erosion. CT/CT abdomen pelvis w IV con IMPRESSION: Persistent pseudoobstruction with a transitional caliber at the rectosigmoid colon. Consider metabolic versus neurogenic etiology. No ascites. No pneumoperitoneum. Probable airspace disease, lung bases. Questionable osteomyelitis, sacrococcyx. Fleischner guidelines were followed. Electronically signed by: Wisam Palmer MD 06/29/2024 01:08 PM EDT RP
--- NOTE | 2024-06-29 09:11 | ECG_ITS ---
Test Reason : ams Blood Pressure : */* mmHG Vent. Rate : 100 BPM Atrial Rate : 100 BPM P-R Int : 142 ms QRS Dur : 76 ms QT Int : 316 ms P-R-T Axes : 50 34 28 degrees QTcB Int : 407 ms Normal sinus rhythm Normal ECG When compared with ECG of 19-Apr-2024 11:43, Vent. rate has decreased by 61 bpm Referred By: Generic ED Physician Electronically Signed By: VINI ROBERT
[2024-06-29 09:30] LABS: Appearance Urine Turbid; Color Urine Yellow; Glucose Urine UA Negative (Negative); Leukocyte Esterase Urine Large (3+) (Negative); Nitrite Urine Negative (Negative); PH >= 9.0 (5.0-9.0); Specific Gravity - Urine 1.015 (1.005-1.025); UMIC TRIGGER UACC YES; Urine Blood Large (3+) (Negative); Urine Ketones Negative (Negative); Urine Protein 100 (2+) mg/dL (Neg-Trace)
[2024-06-29 09:31] LABS: Appearance Urine Turbid; Color Urine Yellow; Glucose Urine UA Negative (Negative); Leukocyte Esterase Urine Large (3+) (Negative); Nitrite Urine Positive (Negative); PH >= 9.0 (5.0-9.0); UMIC TRIGGER UACC YES; Urine Blood Large (3+) (Negative); Urine Ketones Negative (Negative); Urine Protein 100 (2+) mg/dL (Neg-Trace)
--- NOTE | 2024-06-29 09:33 | ED_ITS ---
HPI - Sepsis General Chief Complaint: Altered Mental Status Stated Complaint: HOT TO TOUCH,LOW BP,FAST HR FROM SNF PER EMS Time Seen by Provider: 06/29/24 09:33 Source: RN notes reviewed and old records reviewed History of Present Illness ED Provider: Dr. Chávez HPI Narrative: 68[facility], nonverbal with history of vascular dementia, CVA with R-sided hemiparesis, neurogenic bladder with chronic SPT, sta ge 4 sacral decubitus ulcer, hx C. difficile colitis, seizure disorder, HTN, HLD, presenting with reports of fever, and lethargy. Patient has suprapubic catheter and left-sided nephrostomy, he also has sacral decubitus ulcers x2 with staff at rehab reporting that there may be some infection of 1 of the ulcers as well. There are no reports of trauma, no reports of vomiting, diarrhea, melanotic stools. MD elicited complaint: fever, malaise and weakness Related Data Home Medications ?Medication ?Instructions ?Recorded ?Confirmed acetaminophen 325 mg tablet 650 mg PO Q4H PRN fever/pain 02/16/21 04/19/24 bisacodyl 10 mg rectal suppository 10 mg MT DAILY PRN If no BM in 8 02/16/21 04/19/24 hours after use of MoM calcium 600 mg (as 1 tab PO BID 02/16/21 04/19/24 carbonate)-vitamin D3 5 mcg (200 unit) tablet magnesium hydroxide 400 mg/5 mL 30 ml PO DAILY PRN No BM in 3 Days 02/16/21 04/19/24 oral suspension (Milk of Magnesia) levetiracetam 100 mg/mL oral 2.5 ml PO BID 02/26/21 04/19/24 solution atorvastatin 80 mg tablet 80 mg PO DAILY 01/26/22 04/19/24 rivaroxaban 20 mg tablet (Xarelto) 20 mg PO DAILY@1700 01/26/22 04/19/24 magnesium citrate 150 ml PO DAILY PRN No BM in 12 hrs 02/15/22 04/19/24 sodium phosphates 19 gram-7 118 ml MT DAILY PRN If no BM in 8 02/15/22 04/19/24 gram/118 mL enema (Fleet Enema) hours after use of Bisacodyl acetaminophen 325 mg tablet 650 mg PO BEDTIME 10/03/22 04/19/24 (Tylenol) acetic acid 0.25 % irrigation 50 ml irrigation TUTHSA@2100 10/03/22 04/19/24 solution ferrous sulfate 325 mg (65 mg 325 mg PO DAILY 12/22/22 04/19/24 iron) tablet multivitamin 1 tab PO DAILY 01/18/24 04/19/24 psyllium 1 ea PO BEDTIME 01/18/24 04/19/24 sodium hypochlorite 0.125 % 1 appl topical BEDTIME 01/18/24 04/19/24 solution oxycodone 5 mg tablet 5 mg PO DAILY PRN Pain/Wound 04/19/24 04/19/24 Management potassium chloride 20 mEq/15 mL 30 meq PO BID 04/19/24 04/19/24 oral liquid simethicone 80 mg chewable tablet 80 mg PO Q6H PRN Abdominal 04/19/24 04/19/24 Distention Previous Rx's ?Medication ?Instructions ?Recorded losartan 100 mg tablet 100 mg PO DAILY 90 days #90 tabs 02/07/20 wet wipes #5 multiple units 03/12/20 tamsulosin 0.4 mg capsule 0.4 mg PO BEDTIME 90 days #90 caps 03/22/20 gabapentin 300 mg capsule 300 mg PO BEDTIME 30 days #30 caps 03/27/20 miscellaneous medical supply #1 ea 03/27/20 ascorbic acid (vitamin C) 1,000 mg 1,000 mg PO DAILY 90 days #90 tabs 01/27/22 tablet methenamine hippurate 1 gram tablet 1 g PO daily 90 days #90 tabs 01/27/22 cefuroxime axetil 250 mg tablet 250 mg PO BID 7 days #14 tabs 06/08/24 Allergies Allergy/AdvReac Type Severity Reaction Status Date / Time No Known Allergies Allergy Verified 06/29/24 10:01 [No Known Allergies*] Review of Systems Constitutional: Reports as per HPI Physical Exam Vital Signs: Last Vital Signs Temp 101.8 F H 06/29/24 09:10 Pulse 84 06/29/24 11:44 Resp 14 06/29/24 11:40 BP 76/34 L 06/29/24 11:44 Pulse Ox 96 06/29/24 11:40 O2 Del Method Room Air 06/29/24 11:40 BMI result Body Mass Index 25.3 Const Other: Neurological: ? Mental Status:lethargic/chronically ill appearing Patient has baseline neurologic deficits from prior stroke Cardiovascular: ? Heart sounds: Tachycardic with regular rhythm, no obvious murmurs, rubs, or gallops. Respiratory: ? Breath sounds moving air well, no ronchi,wheezing or stridor ? Work of Breathing: Normal Abdomen: ? Soft, non-tender, no organomegaly. ? Bowel sounds: Present and normal. Genitourinary: ? patient has left-sided nephrostomy tube with clean insertion site, and suprapubic catheter with clean insertion site Skin: ? patient has a proximally 3 x 2 cm full-thickness sacral decubitus ulcer that is nonpurulent and without any erythema, and he has a left buttock ulcer that is approximately 3 x 2 cm, without surrounding erythema, this area does have some purulence but no active discharge Extremities: ? 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 Course Course Course Narrative: Patient is presenting from rehab facility with lethargy and fevers, upon initial presentation he was noted to be hypotensive and so fluid resuscitation was initiated right away, he was febrile, he has to indwelling catheters suprapubic and nephrostomy with clean insertion size and he has to sacral decubitus wounds without surrounding erythema but 1 of the sides does have some purulence without active palpable subcutaneous emphysema or significant discharge noted, I will cover with antibiotics would recommend surgical consult while he is on the floor to consider debridement, however it was noted that his suprapubic catheter is also putting out purulent material so this is likely the source of his infection. Other considerations include pneumonia, surgical abdomen, deep space infections of the soft tissue, meningitis. Patient met criteria for severe sepsis he is receiving IV fluids as well as broad-spectrum antibiotics and I will be planning for admission. Unless he is not fluid responsive he will require ICU admission but if he is he will go to the medical floor. We will continue to monitor. sepsis alert called at 09:25 [id number]: Triple-lumen will be placed in ICU, this has been discussed with the patient with the help of our laborer filter plant Reevaluation(s) Reevaluation #1: Patient is becoming hypotensive again, albumin and another L of LR ordered, I also spoke with Dr. Fry from ICU so issues aware that patient may need to have higher level of care, and vasopressors Time: 10:59 Reevaluation #2: Focused exam performed by MD Time: 11:10 Reevaluation #3: 3 L of fluids finished, patient is still hypotensive, blood pressure done manually by myself at bedside it was 86/53 so I am ordering Levophed, will update ICU. And patient will need a triple-lumen which will be placed on emergent basis. Time: 11:21 Critical Care Time Critical Care Time Critical Care Time: Yes Total Critical Care Time: 80 Attestation: Time is exclusive of separately billable procedures. Time includes: direct patient care, patient reassessment, coordination of patient care, interpretation of data (laboratory data, pulse oximetry, arterial blood gases and chest xrays), review of patient's medical records, medical consultation and documentation of patient care. Procedures excluded from critical care time: central intravenous line placement and electrocardiography. Discharge Plan Discharge Clinical Impression: Stage 4 pressure ulcer, Complicated urinary tract infection, Septic shock Patient Disposition: Admitted As Inpatient Sepsis Event Note Evaluation Current stage of sepsis: severe sepsis Initial hypotension due to sepsis/infection: SBP < 90 mmHg Possible source: pulmonary, GI tract/intra-abdominal, genitourinary, skin/soft tissue and wound Focused Exam Vital signs: Vital Signs Temp Pulse Resp BP Pulse Ox O2 Del Method 06/29/24 11:23 94 13 86/31 L 96 Room Air 06/29/24 10:52 89 12 89/46 L 95 Room Air 06/29/24 10:47 90 15 79/42 L 95 Room Air 06/29/24 10:38 96 12 97/47 L 98 Room Air 06/29/24 10:06 104 H 16 102/53 L 97 Room Air 06/29/24 09:59 84/48 L 06/29/24 09:53 85/47 L 06/29/24 09:10 101.8 F H 105 H 20 106/69 98 Room Air [facility] Past Medical History Medical History 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 Mother No problems noted. Social History Social History Household Members: Other Household Members Other:: [facility] Housing: [facility] Are you a primary care team assistant to a significant other at home: No Do you presently have visiting nurse or other home services: No Unable to assess alcohol history related to: Unable to respond Alcohol intake: former Comment: patient sleeping Patient Tobacco Use Status: Tobacco use Unknown Second Hand Smoke Exposure: No Advance Directives: Yes Advance Directives on File: Yes Advance Directives Date on File: 02/14/20 service: No Current occupational status: disabled
[2024-06-29] MEDS: SODIUM CHLORIDE 2067 ML IV (09:39)
[2024-06-29 09:41] LABS: MANUAL DIFF FLAG NO
[2024-06-29] MEDS: Acetaminophen Supp 650 MG SUPP.RECT PR (09:41)
[2024-06-29 09:45] LABS: Basophils Percent Auto 0.1 % (0-2); Hematocrit 25.9 % (42.0-52.0); Hemoglobin 8.8 g/dl (14.0-18.0); Imm Gran Abs Auto 0.04 X10*3/uL (0.00-0.03); Imm Gran Pct Auto 0.4 % (0.0-0.4); Lymphocytes Absolute Auto 0.7 X10*3/uL (1.2-4.9); Lymphocytes Percent Auto 6.4 % (20-40); Mean Corpuscular Hemoglobin 32.7 pg (27.0-33.0); Mean Corpuscular Volume 96.3 fL (80.0-98.0); Monocytes Absolute Auto 1.1 X10*3/uL (0.1-1.2); Monocytes Percent Auto 10.2 % (2-11); Neutrophils Absolute Auto 8.8 x10*3/uL (2.0-8.3); Neutrophils Percent Auto 82.9 % (45-73); Platelet Count 209 X10*3/uL (160-400); Red Blood Count 2.69 X10*6/uL (4.60-5.80); White Blood Count 10.6 X10*3/uL (4.8-10.8)
[2024-06-29 09:53] LABS: INTERNATIONAL NORM RATIO 1.4 (0.9-1.1); Prothrombin Time 16.3 SEC (10.9-12.4)
[2024-06-29 10:00] LABS: Alanine Aminotransferase 22 U/L (0-40); Albumin Level 2.5 g/dL (3.5-5.0); Alkaline Phosphatase 79 U/L (39-117); Anion Gap 12 (12-20); Aspartate Amino Transferase 27 U/L (5-37); Bilirubin Direct 0.3 mg/dL (0.0-0.5); Bilirubin Total 0.5 mg/dL (0.0-1.0); Blood Urea Nitrogen 51 mg/dL (9-16); Calcium 8.8 mg/dL (8.4-10.2); Carbon Dioxide 21 mmol/L (22-29); Chloride 116 mmol/L (96-108); Creatinine Clr Calc Pharmacy 46.6; Estimated Glomerular Filt Rate 55; Glucose Random 139 mg/dL (60-115); Lipase 24 U/L (8-78); Potassium 4.7 mmol/L (3.3-5.1); Sodium 144 mmol/L (135-145); Total Protein 6.5 g/dL (6.5-8.0)
[2024-06-29 10:06] LABS: Lactic Acid 2.5 mmol/L (0.5-2.0)
[2024-06-29 10:07] LABS: Influenza A PCR NEGATIVE (Negative); Influenza B PCR NEGATIVE (Negative); Resp Syncy Virus RNA Qual PCR NEGATIVE (Negative); SARS COV2 PCR INHOUSE NEGATIVE (Negative)
[2024-06-29] MEDS: Piperacillin Sodium/Tazobactam 3.375 GM in 0.9 % Sodium Chloride 50 ML IV (10:08)
[2024-06-29 10:39] LABS: Bacteria Urine 3+ (None Seen); Hyaline Casts Urine 0-2 /LPF (0-2); Other Crystals Urine Present; RBC Urine >20 /HPF (0-2); Squamous Epithelial Cell Urine 0-2 /HPF (0-2); UACC Culture Trigger YES; WBC Urine >50 /HPF (0-5)
[2024-06-29] MEDS: vancomycin HCL 1,500 MG in 0.9 % Sodium Chloride 500 ML 333.33 MG IV (10:42)
[2024-06-29 10:47] LABS: Bacteria Urine 2+ (None Seen); Hyaline Casts Urine 0-2 /LPF (0-2); Other Crystals Urine Present; UACC Culture Trigger YES
[2024-06-29 10:49] LABS: Troponin-I High Sensitivity 24.6 ng/L (<3.5-35.0)
[2024-06-29] MEDS: Lactated Ringers 1,000 ML 999 ML IV (11:06)
[2024-06-29] MEDS: Albumin Human 25 % 100 ML 133.33 ML IV (11:06)
--- OUTSIDE RECORDS SUMMARY | 2024-06-29 11:22 | XMS_ITS | Encounter Summary ---
Author Organization [employer] Address [address] [place] [address] Care Team Providers Care Onion Topper Name Role Phone Lauren Wiley MD Primary Care Provider + Encounter Details Date Type Department Care Team (Late st Contact Info) Description 05/04/2024 Lab Requisition [facility] [address] [place] [address] Lauren Wiley MD [address] [phone] Essential (primary) hypertension Social History Tobacco Use [...] AM EDT) WBC 5.1 4.8 - 10.8 K/[facility] LAB HEMETOLOGY METHOD 05/04/2024 9:45 AM EDT [facility] RBC 3.00(L) 4.50 - 5.50 M/[facility] LAB HEMETOLOGY METHOD 05/04/2024 9:45 AM EDT [facility] Hemoglobin 9.7(L) 13.5 - 17.5 g/dL LAB HEMETOLOGY METHOD 05/04/2024 9:45 AM EDT [facility] Hematocrit 29.4(L) 42.0 - 54.0 % LAB HEMETOLOGY METHOD 05/04/2024 9:45 AM EDT [facility] MCV 96.7 79.0 - 98.0 FL LAB HEMETOLOGY METHOD 05/04/2024 9:45 AM EDT [facility] MCH 31.9 27.0 - 32.0 pcg LAB HEMETOLOGY METHOD 05/04/2024 9:45 AM EDT [facility] MCHC 33.0 32.0 - 37.0 g/dL LAB HEMETOLOGY METHOD 05/04/2024 9:45 AM EDT [facility] RDW 14.2 11.0 - 15.0 % LAB HEMETOLOGY METHOD 05/04/2024 9:45 AM EDT [facility] Platelets 190 130 - 400 K/mcL LAB HEMETOLOGY METHOD 05/04/2024 9:45 AM EDT [facility] MPV 10.3 7.0 - 11.0 FL LAB HEMETOLOGY METHOD 05/04/2024 9:45 AM EDT [facility] NRBC 0.0 <1.0 % LAB HEMETOLOGY METHOD 05/04/2024 9:45 AM EDT [facility] NRBC Absolute 0.00 <0.10 K/mcL LAB HEMETOLOGY METHOD 05/04/2024 9:45 AM EDT [facility] Blood Venous blood specimen / Unknown 05/04/2024 7:09 AM EDT 05/04/2024 9:06 AM EDT us Lauren Wiley MD LAB BLOOD ORDERABLES Fin al Result [facility] [address] [place] [address], [place] [phone] * (ABNORMAL) Basic metabolic panel (05/04/2024 7:09 AM EDT) Sodium 142 133 - 145 mmol/L LAB CHEMISTRY METHOD 05/04/2024 10:[address] [facility] Potassium 3.8 3.5 - 5.5 mmol/L LAB CHEMISTRY METHOD 05/04/2024 10:[address] [facility] Chloride 108 96 - 110 mmol/L LAB CHEMISTRY METHOD 05/04/2024 10:[address] [facility] CO2 28 21 - 32 mmol/L LAB CHEMISTRY METHOD 05/04/2024 10:[address] [facility] Anion Gap 6 3 - 11 LAB CHEMISTRY METHOD 05/04/2024 10:[address] [facility] Glucose 86 70 - 100 mg/dL LAB CHEMISTRY METHOD 05/04/2024 10:[address] [facility] BUN 23 5 - 25 mg/dL LAB CHEMISTRY METHOD 05/04/2024 10:[address] [facility] Creatinine 0.91 0.70 - 1.30 mg/dL LAB CHEMISTRY METHOD 05/04/2024 10:[address] [facility] eGFR 91 >=60 mL/min/1. 73m2 LAB CHEMISTRY METHOD 05/04/2024 10:[address] [facility] Comment:Calculation based on the??Chronic Kidney Disease Epidemiology Collaboration (CKD-EPI) equation refit??without adjustment for race. BUN/Creatinine Ratio 25.3 LAB CHEMISTRY METHOD 05/04/2024 10:[address] [facility] Calcium 8.4(L) 8.5 - 10.5 mg/dL LAB CHEMISTRY METHOD 05/04/2024 10:[address] [facility] Blood Venous blood specimen / Unknown Venipuncture / Unknown 05/04/2024 7:09 AM EDT 05/04/2024 9:05 AM EDT us Lauren Wiley MD LAB BLOOD ORDERABLES Fin al Result Performing Organization Address City/[facility]/ZIP Co de Phone Number [facility] ([facility] [address] [place] [address], documented in this encounter Visit Diagnoses Diagnosis Essential (primary) hypertension Unspecified essential hypertension documented in this encounter Additional Health Concerns Infection Onset Date Last Indicated Resolved Time ESBL 03/29/2024 03/29/2024 documented as of this encounter Care Teams Onion Topper Relationship Specialty Start Date End Date Lauren Wiley MD [address] [place] [address] PCP - General Family Medicine 01/28/24 documented as of this encounter
--- OUTSIDE RECORDS SUMMARY | 2024-06-29 11:22 | XMS_ITS | Encounter Summary ---
Author Organization [employer] Address [address] [place] [address] Care Team Providers Care Rotary Drill Operator Name Role Phone Lauren Wiley MD Primary Care Provider + Encounter Details Date Type Department Care Team (Late st Contact Info) Description 03/15/2024 Lab Requisition [facility] [address] [place] [address] Lauren Wiley MD [address] [phone] Essential (primary) hypertension; Anemia, unspecified Social History [...] mmol/L LAB CHEMISTRY METHOD 03/15/2024 3:35 PM [facility] CO2 26 21 - 32 mmol/L LAB CHEMISTRY METHOD 03/15/2024 3:35 PM [facility] Anion Gap 2(L) 3 - 11 LAB CHEMISTRY METHOD 03/15/2024 3:35 PM [facility] Glucose 98 70 - 100 mg/dL LAB CHEMISTRY METHOD 03/15/2024 3:35 PM [facility] BUN 33(H) 5 - 25 mg/dL LAB CHEMISTRY METHOD 03/15/2024 3:35 PM [facility] Creatinine 1.00 0.70 - 1.30 mg/dL LAB CHEMISTRY METHOD 03/15/2024 3:35 PM [facility] eGFR 81 >=60 mL/min/1. 73m2 LAB CHEMISTRY METHOD 03/15/2024 3:35 PM [facility] Comment:Calculation based on the??Chronic Kidney Disease Epidemiology Collaboration (CKD-EPI) equation refit??without adjustment for race. BUN/Creatinine Ratio 33.0 LAB CHEMISTRY METHOD 03/15/2024 3:35 PM [facility] Calcium 8.6 8.5 - 10.5 mg/dL LAB CHEMISTRY METHOD 03/15/2024 3:35 PM [facility] AST (SGOT) 19 10 - 42 unit/L LAB CHEMISTRY METHOD 03/15/2024 3:35 PM [facility] ALT (SGPT) 22 10 - 60 unit/L LAB CHEMISTRY METHOD 03/15/2024 3:35 PM [facility] Alkaline Phosphatase 91 42 - 121 unit/L LAB CHEMISTRY METHOD 03/15/2024 3:35 PM [facility] Total Protein 5.7(L) 6.0 - 8.0 g/dL LAB CHEMISTRY METHOD 03/15/2024 3:35 PM [facility] Albumin 2.3(L) 3.2 - 5.0 g/dL LAB CHEMISTRY METHOD 03/15/2024 3:35 PM [facility] Total Bilirubin 0.4 0.0 - 1.4 mg/dL LAB CHEMISTRY METHOD 03/15/2024 3:35 PM [facility] Blood Venous blood specimen / Unknown Venipuncture / Unknown 03/15/2024 5:05 AM EST 03/15/2024 11:34 AM EST us Lauren Wiley MD LAB BLOOD ORDERABLES Fin al Result [facility] [address] [place] [address], * (ABNORMAL) Complete blood count (03/15/2024 5:05 AM EST) WBC 4.1(L) 4.8 - 10.8 K/mcL LAB HEMETOLOGY METHOD 03/15/2024 12:22 PM [facility] RBC 3.10(L) 4.50 - 5.50 M/mcL LAB HEMETOLOGY METHOD 03/15/2024 12:22 PM [facility] Hemoglobin 10.1(L) 13.5 - 17.5 g/dL LAB HEMETOLOGY METHOD 03/15/2024 12:22 PM [facility] Hematocrit 31.0(L) 42.0 - 54.0 % LAB HEMETOLOGY METHOD 03/15/2024 12:22 PM [facility] MCV 99.4(H) 79.0 - 98.0 FL LAB HEMETOLOGY METHOD 03/15/2024 12:22 PM [facility] MCH 32.4(H) 27.0 - 32.0 pcg LAB HEMETOLOGY METHOD 03/15/2024 12:22 PM [facility] MCHC 32.6 32.0 - 37.0 g/dL LAB HEMETOLOGY METHOD 03/15/2024 12:22 PM [facility] RDW 15.5(H) 11.0 - 15.0 % LAB HEMETOLOGY METHOD 03/15/2024 12:22 PM [facility] Platelets 137 130 - 400 K/mcL LAB HEMETOLOGY METHOD 03/15/2024 12:22 PM [facility] MPV 10.7 7.0 - 11.0 FL LAB HEMETOLOGY METHOD 03/15/2024 12:22 PM [facility] NRBC 0.0 <1.0 % LAB HEMETOLOGY METHOD 03/15/2024 12:22 PM [facility] NRBC Absolute 0.00 <0.10 K/mcL LAB HEMETOLOGY METHOD 03/15/2024 12:22 PM [facility] Blood Venous blood specimen / Unknown Venipuncture / Unknown 03/15/2024 5:05 AM EST 03/15/2024 11:34 AM EST Lauren Wiley MD LAB BLOOD ORDERABLES Fin al Result [facility] [address] [place] [address], documented in this encounter Visit Diagnoses Diagnosis Essential (primary) hypertension Unspecified essential hypertension Anemia, unspecified documented in this encounter Additional Health Concerns Infection Onset Date Last Indicated Resolved Time ESBL 03/29/2024 03/29/2024 documented as of this encounter Care Teams Rotary Drill Operator Relationship Specialty Start Date End Date Lauren Wiley MD [address] [place] [address] PCP - General Family Medicine 01/28/24 documented as of this encounter
--- OUTSIDE RECORDS SUMMARY | 2024-06-29 11:22 | XMS_ITS | Encounter Summary ---
Author Organization [employer] Address [address] [place] [address] Care Team Providers Care Computer Forensic Examiner Name Role Phone Lauren Wiley MD Primary Care Provider + Encounter Details Date Type Department Care Team (Late st Contact Info) Description 05/28/2024 Lab Requisition [facility] Lab [address] [place] [address] Lauren Wiley MD [address] [phone] Gastrointestinal hemorrhage, unspecified Social History Tobacco Use [...] LAB CHEMISTRY METHOD 05/28/2024 4:[address] [facility] Potassium 4.9 3.5 - 5.5 mmol/L LAB CHEMISTRY METHOD 05/28/2024 4:[address] [facility] Chloride 111(H) 96 - 110 mmol/L LAB CHEMISTRY METHOD 05/28/2024 4:[address] [facility] CO2 27 21 - 32 mmol/L LAB CHEMISTRY METHOD 05/28/2024 4:[address] [facility] Anion Gap 3 3 - 11 LAB CHEMISTRY METHOD 05/28/2024 4:50 PM [facility] Glucose 93 70 - 100 mg/dL LAB CHEMISTRY METHOD 05/28/2024 4:50 PM [facility] BUN 33(H) 5 - 25 mg/dL LAB CHEMISTRY METHOD 05/28/2024 4:50 PM [facility] Creatinine 1.05 0.70 - 1.30 mg/dL LAB CHEMISTRY METHOD 05/28/2024 4:50 PM [facility] eGFR 77 >=60 mL/min/1. 73m2 LAB CHEMISTRY METHOD 05/28/2024 4:[address] [facility] Comment:Calculation based on the??Chronic Kidney Disease Epidemiology Collaboration (CKD-EPI) equation refit??without adjustment for race. BUN/Creatinine Ratio 31.4 LAB CHEMISTRY METHOD 05/28/2024 4:50 PM [facility] Calcium 8.6 8.5 - 10.5 mg/dL LAB CHEMISTRY METHOD 05/28/2024 4:50 PM [facility] Blood Venous blood specimen / Unknown Venipuncture / Unknown 05/28/2024 3:18 PM EDT 05/28/2024 3:44 PM EDT us Lauren Wiley MD LAB BLOOD ORDERABLES Fin al Result [facility] [address] [place] [address], * (ABNORMAL) Complete blood count (05/28/2024 3:18 PM EDT) WBC 4.2(L) 4.8 - 10.8 K/mcL LAB HEMETOLOGY METHOD 05/28/2024 5:29 PM [facility] RBC 3.00(L) 4.50 - 5.50 M/mcL LAB HEMETOLOGY METHOD 05/28/2024 5:29 PM [facility] Hemoglobin 9.8(L) 13.5 - 17.5 g/dL LAB HEMETOLOGY METHOD 05/28/2024 5:29 PM [facility] Hematocrit 30.7(L) 42.0 - 54.0 % LAB HEMETOLOGY METHOD 05/28/2024 5:29 PM [facility] MCV 102.3(H) 79.0 - 98.0 FL LAB HEMETOLOGY METHOD 05/28/2024 5:29 PM [facility] MCH 32.7(H) 27.0 - 32.0 pcg LAB HEMETOLOGY METHOD 05/28/2024 5:29 PM [facility] MCHC 31.9(L) 32.0 - 37.0 g/dL LAB HEMETOLOGY METHOD 05/28/2024 5:29 PM [facility] RDW 15.4(H) 11.0 - 15.0 % LAB HEMETOLOGY METHOD 05/28/2024 5:29 PM [facility] Platelets 206 130 - 400 K/mcL LAB HEMETOLOGY METHOD 05/28/2024 5:29 PM [facility] MPV 10.0 7.0 - 11.0 FL LAB HEMETOLOGY METHOD 05/28/2024 5:29 PM [facility] NRBC 0.0 <1.0 % LAB HEMETOLOGY METHOD 05/28/2024 5:29 PM [facility] NRBC Absolute 0.00 <0.10 K/mcL LAB HEMETOLOGY METHOD 05/28/2024 5:29 PM [facility] Blood Venous blood specimen / Unknown Venipuncture / Unknown 05/28/2024 3:18 PM EDT 05/28/2024 3:44 PM EDT us Lauren Wiley MD LAB BLOOD ORDERABLES Fin al Result [facility] ([facility]) [facility] [address] [place] [address], documented in this encounter Visit Diagnoses Diagnosis Gastrointestinal hemorrhage, unspecified documented in this encounter Additional Health Concerns Infection Onset Date Last Indicated Resolved Time ESBL 03/29/2024 03/29/2024 documented as of this encounter Care Teams Computer Forensic Examiner Relationship Specialty Start Date End Date Lauren Wiley MD [address] [place] [address] PCP - General Family Medicine 01/28/24 documented as of this encounter
--- OUTSIDE RECORDS SUMMARY | 2024-06-29 11:22 | XMS_ITS | Encounter Summary ---
Author Organization [employer] Address [address] [place] [address] Care Team Providers Care Commercial Credit Lead Name Role Phone Lauren Wiley MD Primary Care Provider + Encounter Details Date Type Department Care Team (Late st Contact Info) Description 03/15/2024 Lab Requisition [facility] [address] [place] [address] Lauren Wiley MD [address] [phone] Diarrhea, unspecified; Enterocolitis due to Clostridium difficile, [...] - GENER AL ORDERABLES Final Result [facility] ([facility]) [facility] [address] [place] [address], documented in this encounter Visit Diagnoses Diagnosis Diarrhea, unspecified Enterocolitis due to Clostridium difficile, recurrent documented in this encounter Additional Health Concerns Infection Onset Date Last Indicated Resolved Time ESBL 03/29/2024 03/29/2024 documented as of this encounter Care Teams Commercial Credit Lead Relationship Specialty Start Date End Date Lauren Wiley MD [address] [place] [address] PCP - General Family Medicine 01/28/24 documented as of this encounter
--- OUTSIDE RECORDS SUMMARY | 2024-06-29 11:22 | XMS_ITS | Encounter Summary ---
Author Organization [employer] [facility] Address [address] [place] [address] Care Team Providers Care Undercollar Maker Name Role Phone Elder, Lauren Paulino MD Primary Care Provider + Encounter Details Date Type Department Care Team (Late st Contact Info) Description 03/03/2024 Lab Requisition [facility] Lab 299 [facility] [place] [address] Yoav Osorio MD [address] [place] [address] [address] [place] [phone] Essential (primary) hypertension Social History Tobacco Use [...] LAB CHEMISTRY METHOD 03/03/2024 11:04 AM EST [facility] LAB Potassium 4.0 3.5 - 5.5 mmol/L LAB CHEMISTRY METHOD 03/03/2024 11:04 AM EST [facility] LAB Chloride 118(H) 96 - 110 mmol/L LAB CHEMISTRY METHOD 03/03/2024 11:04 AM EST [facility] LAB CO2 25 21 - 32 mmol/L LAB CHEMISTRY METHOD 03/03/2024 11:04 AM [facility] LAB Anion Gap 2(L) 3 - 11 LAB CHEMISTRY METHOD 03/03/2024 11:04 AM [facility] LAB Glucose 90 70 - 100 mg/dL LAB CHEMISTRY METHOD 03/03/2024 11:04 AM [facility] LAB BUN 36(H) 5 - 25 mg/dL LAB CHEMISTRY METHOD 03/03/2024 11:04 AM [facility] LAB Creatinine 0.99 0.70 - 1.30 mg/dL LAB CHEMISTRY METHOD 03/03/2024 11:04 AM [facility] LAB eGFR 82 >=60 mL/min/1. 73m2 LAB CHEMISTRY METHOD 03/03/2024 11:04 AM [facility] LAB Comment:Calculation based on the??Chronic Kidney Disease Epidemiology Collaboration (CKD-EPI) equation refit??without adjustment for race. BUN/Creatinine Ratio 36.4 LAB CHEMISTRY METHOD 03/03/2024 11:04 AM [facility] LAB Calcium 8.1(L) 8.5 - 10.5 mg/dL LAB CHEMISTRY METHOD 03/03/2024 11:04 AM [facility] LAB Blood Venous blood specimen / Unknown Venipuncture / Unknown 03/03/2024 5:53 AM EST 03/03/2024 9:12 AM EST us Yoav Osorio MD LAB BLOOD ORDERABLES Final Resu lt [facility] LAB [address] [place] [address], documented in this encounter Visit Diagnoses Diagnosis Essential (primary) hypertension Unspecified essential hypertension documented in this encounter Additional Health Concerns Infection Onset Date Last Indicated Resolved Time ESBL 03/29/2024 03/29/2024 documented as of this encounter Care Teams Undercollar Maker Relationship Specialty Start Date End Date Lauren Wiley MD [address] [place] [address] PCP - General Family Medicine 01/28/24 documented as of this encounter
--- OUTSIDE RECORDS SUMMARY | 2024-06-29 11:22 | XMS_ITS | Encounter Summary ---
Author Organization [employer] [facility] Address [address] [place] [address] Care Team Providers Care Sales Representative Health Insurance Name Role Phone Lauren Wiley MD Primary Care Provider + Encounter Details Date Type Department Care Team (Late st Contact Info) Description 03/03/2024 Lab Requisition [facility] Lab 299 [place] [address] Lauren Wiley MD [address] [phone] Essential (primary) hypertension Social History Tobacco Use [...] LAB CHEMISTRY METHOD 03/06/2024 10:49 AM EST [facility] LAB Potassium 4.4 3.5 - 5.5 mmol/L LAB CHEMISTRY METHOD 03/06/2024 10:49 AM EST [facility] LAB Chloride 112(H) 96 - 110 mmol/L LAB CHEMISTRY METHOD 03/06/2024 10:49 AM EST [facility] LAB CO2 28 21 - 32 mmol/L LAB CHEMISTRY METHOD 03/06/2024 10:49 AM [facility] LAB Anion Gap 3 3 - 11 LAB CHEMISTRY METHOD 03/06/2024 10:49 AM [facility] LAB Glucose 98 70 - 100 mg/dL LAB CHEMISTRY METHOD 03/06/2024 10:49 AM [facility] LAB BUN 28(H) 5 - 25 mg/dL LAB CHEMISTRY METHOD 03/06/2024 10:49 AM [facility] LAB Creatinine 0.95 0.70 - 1.30 mg/dL LAB CHEMISTRY METHOD 03/06/2024 10:49 AM [facility] LAB eGFR 87 >=60 mL/min/1. 73m2 LAB CHEMISTRY METHOD 03/06/2024 10:49 AM [facility] LAB Comment:Calculation based on the??Chronic Kidney Disease Epidemiology Collaboration (CKD-EPI) equation refit??without adjustment for race. BUN/Creatinine Ratio 29.5 LAB CHEMISTRY METHOD 03/06/2024 10:49 AM [facility] LAB Calcium 8.5 8.5 - 10.5 mg/dL LAB CHEMISTRY METHOD 03/06/2024 10:49 AM [facility] LAB Blood Venous blood specimen / Unknown Venipuncture / Unknown 03/06/2024 8:07 AM EST 03/06/2024 9:07 AM EST Lauren Wiley MD LAB BLOOD ORDERABLES Fin al Result [facility] LAB [address] [place] [address], documented in this encounter Visit Diagnoses Diagnosis Essential (primary) hypertension Unspecified essential hypertension documented in this encounter Additional Health Concerns Infection Onset Date Last Indicated Resolved Time ESBL 03/29/2024 03/29/2024 documented as of this encounter Care Teams Sales Representative Health Insurance Relationship Specialty Start Date End Date Lauren Wiley MD [address] [place] [address] PCP - General Family Medicine 01/28/24 documented as of this encounter
--- OUTSIDE RECORDS SUMMARY | 2024-06-29 11:23 | XMS_ITS | Encounter Summary ---
Author Organization [employer] Address [address] [place] [address] Care Team Providers Care Call Center Nurse Name Role Phone Lauren Wiley MD Primary Care Provider + Encounter Details Date Type Department Care Team (Late st Contact Info) Description 03/29/2024 Lab Requisition [facility] Lab 299 [place] [address] Lauren Wiley MD [address] [phone] Hematuria, unspecified Social History Tobacco Use Types [...] reflex microscopic (03/29/2024 12:00 AM EST) Specific [place] Urine 1.013 1.003 - 1.030 LAB URINALYSIS - AUTOMATED METHOD 03/29/2024 11:21 AM EST [facility] LAB pH, Urine >=9.0(A) 5.0 - 8.0 pH LAB URINALYSIS - AUTOMATED METHOD 03/29/2024 11:21 AM [facility] LAB Leukocytes, Urine Large(A) Negative LAB URINALYSIS - AUTOMATED METHOD 03/29/2024 11:21 AM [facility] LAB Nitrite, Urine Positive(A) Negative LAB URINALYSIS - AUTOMATED METHOD 03/29/2024 11:21 AM [facility] LAB Protein, Urine 100(A) <=Trace mg/dL LAB URINALYSIS - AUTOMATED METHOD 03/29/2024 11:21 AM [facility] LAB Glucose, Urine Negative Negative mg/dL LAB URINALYSIS - AUTOMATED METHOD 03/29/2024 11:21 AM [facility] LAB Ketones, Urine Negative Negative mg/dL LAB URINALYSIS - AUTOMATED METHOD 03/29/2024 11:21 AM [facility] LAB Urobilinogen , Urine 0.2 0.2 - 1.0 mg/dL LAB URINALYSIS - AUTOMATED METHOD 03/29/2024 11:21 AM [facility] LAB Bilirubin, Urine Negative Negative LAB URINALYSIS - AUTOMATED METHOD 03/29/2024 11:21 AM [facility] LAB Blood, Urine Large(A) Negative LAB URINALYSIS - AUTOMATED METHOD 03/29/2024 11:21 AM [facility] LAB RBC, Urine 264(H) 0 - 4 /HPF LAB URINALYSIS - AUTOMATED METHOD 03/29/2024 11:21 AM [facility] LAB WBC, Urine 40(H) 0 - 4 /HPF LAB URINALYSIS - AUTOMATED METHOD 03/29/2024 11:21 AM [facility] LAB Squamous Epithelial, Urine 16 0 - 60 /LPF LAB URINALYSIS - AUTOMATED METHOD 03/29/2024 11:21 AM [facility] LAB Bacteria, Urine Moderate(A) Negative /HPF LAB URINALYSIS - AUTOMATED METHOD 03/29/2024 11:21 AM [facility] LAB Hyaline Casts, Urine 5.2(H) 0 - 3 /LPF LAB URINALYSIS - AUTOMATED METHOD 03/29/2024 11:21 AM EST [facility] LAB Urine Urine specimen from urethra / Unknown 03/29/2024 03/29/2024 10:16 AM EST us Lauren Wiley MD LAB URINE ORDERABLES Fin al Result [facility] LAB [address] [place] [address], * (ABNORMAL) Culture urine (03/29/2024 12:00 AM EST) Culture, Urine >100,000 CFU/mL Providencia stuartii(A) AL 04/02/2024 8:09 AM EST [facility] LAB Comment: This is an edited result. Previous organism was Gram negative bacilli on 03/30/2024 at 1021 EST. Culture, Urine 50,000-100,000 CFU/mL Escherichia coli ESBL(A) AL 04/02/2024 8:09 AM EST [facility] LAB Comment: THIS ORGANISM IS POSITIVE [...] Unknown 03/29/2024 03/29/2024 10:16 AM EST Narrative [facility] - 04/02/2024 8:09 AM EST [...] MICROBIOLOGY - GENER AL ORDERABLES Final Result [facility] LAB [address] [place] [address], documented in this encounter Visit Diagnoses Diagnosis Hematuria, unspecified documented in this encounter Additional Health Concerns Infection Onset Date Last Indicated Resolved Time ESBL 03/29/2024 03/29/2024 documented as of this encounter Care Teams Call Center Nurse Relationship Specialty Start Date End Date Lauren Wiley MD [address] [place] [address] PCP - General Family Medicine 01/28/24 documented as of this encounter
--- OUTSIDE RECORDS SUMMARY | 2024-06-29 11:23 | XMS_ITS | Clinical Summary ---
Author Organization 299 [facility] Address [address] [place] [address] Phone Care Team Providers Care Fork Lift Truck Operator Name Role Phone Lauren Wiley MD Primary Care Provider + Encounters Date Type Department Care Team Description 05/28/2024 Lab Requisition [facility] Lab [address] [place] [address] Lauren Wiley MD Gastrointestinal hemorrhage, unspecified 05/04/2024 Lab Requisition [facility] Lab [address] [place] [address] Lauren Wiley MD Essential (primary) hypertension from Last 3 Months Social History Tobacco [...] 05/04/2024 7:09 AM EDT Essential (primary) hypertension from Last 3 Months Results * (ABNORMAL) Complete blood count (05/28/2024 3:18 PM EDT) Only the most recent of2 resultswithin the time period is included. WBC 4.2(L) 4.8 - 10.8 K/mcL LAB HEMETOLOGY METHOD 05/28/2024 5:29 PM EDT [facility] LAB RBC 3.00(L) 4.50 - 5.50 M/mcL LAB HEMETOLOGY METHOD 05/28/2024 5:29 PM EDT [facility] LAB Hemoglobin 9.8(L) 13.5 - 17.5 g/dL LAB [facility]OLOG[facility] Hematocrit 30.7(L) 42.0 - 54.0 % LAB HEMETOLOGY METHOD 05/28/2024 5:29 PM EDT [facility] LAB MCV 102.3(H) 79.0 - 98.0 FL LAB HEMETOLOGY METHOD [facility]/28[facility]24 [facility] MCH 32.7(H) 27.0 - 32.0 pcg LAB HEMETOLOGY METHOD 05/28/2024 5:29 PM [facility] LAB MCHC 31.9(L) 32.0 - 37.0 g/dL LAB HEMETOLOGY METHOD 05/28[facility]2024 [facility] RDW 15.4(H) 11.0 - 15.0 % LAB HEMETOLOGY METHOD 05/28[facility]2024 5[facility] Platelets 206 130 - 400 K/mcL LAB HEMETOLOGY METHOD 05/28[facility]2024 5[facility] MPV 10.0 7.0 - 11.0 FL LAB HEMETOLOGY METHOD 05/28[facility]2024 5[facility] NRBC 0.0 <1.0 % LAB HEMETOLOGY METHOD 05/28/2024 5:29 PM [facility] LAB NRBC Absolute 0.00 <0.10 K/mcL LAB HEMETOLOGY METHOD 05/28/2024 5:29 PM [facility] LAB Blood Venous blood specimen / Unknown Venipuncture / Unknown 05/28/2024 3:18 PM EDT 05/28/2024 3:44 PM EDT us Lauren Wiley MD LAB BLOOD ORDERABLES Fin al Result [facility] LAB [address] [place] [address], * (ABNORMAL) Basic metabolic panel (05/28/2024 3:18 PM EDT) Only the most recent of2 resultswithin the time period is included. Sodium 141 133 - 145 mmol/L LAB CHEMISTRY METHOD 05/28/2024 4:50 PM EDT [facility] LAB Potassium 4.9 3.5 - 5.5 mmol/L LAB CHEMISTRY METHOD [facility]/28[facility]24 [facility] Chloride 111(H) 96 - 110 mmol/L LAB CHEMISTRY METHOD 05/28/2024 4:50 PM [facility] LAB CO2 27 21 - 32 mmol/L LAB CHEMISTRY METHOD 05/28/2024 4:50 PM EDT [facility] LAB Anion Gap 3 3 - 11 LAB CHEMISTRY METHOD 05/28/2024 4:50 PM [facility] LAB Glucose 93 70 - 100 mg/dL LAB CHEMISTRY METHOD 05/28/2024 4:50 PM [facility] LAB BUN 33(H) 5 - 25 mg/dL LAB CHEMISTRY METHOD 05/28/2024 4:50 PM [facility] LAB Creatinine 1.05 0.70 - 1.30 mg/dL LAB CHEMISTRY METHOD 05/28/2024 4:50 PM EDT [facility] LAB eGFR 77 >=60 mL/min/1. 73m2 LAB CHEMISTRY METHOD 05/28/2024 4:50 PM [facility] LAB Comment:Calculation based on the??Chronic Kidney Disease Epidemiology Collaboration (CKD-EPI) equation refit??without adjustment for race. BUN/Creatinine Ratio 31.4 LAB CHEMISTRY METHOD 05/28/2024 4:50 PM T [facility] LAB Calcium 8.6 8.5 - 10.5 mg/dL LAB CHEMISTRY METHOD 05/28/2024 4:50 PM EDT [facility] LAB Blood Venous blood specimen / Unknown Venipuncture / Unknown 05/28/2024 3:18 PM EDT 05/28/2024 3:44 PM EDT us Lauren Wiley MD LAB BLOOD ORDERABLES Fin al Result [facility] ([facility] LAB [address] [place] [address], from Last 3 Months Additional Health Concerns Infection Onset Date Last Indicated ESBL 03/29/2024 03/29/2024 Insurance [facility] MEDICARE Member Subscriber Plan / Payer (Ef fective 2020-Present) Name:Wyatt Castillo Relation to Subscriber:Self Name:Wyatt Castillo Payer ID:[id number] Group ID:[id number] Type:Not on file Address: [place] [address] [address] [id number] Care Teams Fork L[employer] Truck Operator Relationship Specialty Start Date End Date Lauren Wiley MD [address] [place] [address] PCP - General Family Medicine 01/28/24
--- OUTSIDE RECORDS SUMMARY | 2024-06-29 11:23 | XMS_ITS | Encounter Summary ---
Author Organization [employer] [facility] Address [address] [place] [address] Care Team Providers Care Enterprise Application Analyst Name Role Phone Lauren Wiley MD Primary Care Provider + Encounter Details Date Type Department Care Team (Late st Contact Info) Description 02/14/2024 Lab Requisition [facility] Lab [address] [place] [address] Lauren Wiley MD [address] [phone] Pyuria Social History Tobacco Use Types Packs/Day [...] LAB CHEMISTRY METHOD 02/14/2024 11:12 AM EST [facility] LAB Potassium 3.6 3.5 - 5.5 mmol/L LAB CHEMISTRY METHOD 02/14/2024 11:12 AM EST [facility] LAB Chloride 108 96 - 110 mmol/L LAB CHEMISTRY METHOD 02/14/2024 11:12 AM EST [facility] LAB CO2 32 21 - 32 mmol/L LAB CHEMISTRY METHOD 02/14/2024 11:12 AM [facility] LAB Anion Gap 2(L) 3 - 11 LAB CHEMISTRY METHOD 02/14/2024 11:12 AM [facility] LAB Glucose 106(H) 70 - 100 mg/dL LAB CHEMISTRY METHOD 02/14/2024 11:12 AM [facility] LAB BUN 19 5 - 25 mg/dL LAB CHEMISTRY METHOD 02/14/2024 11:12 AM [facility] LAB Creatinine 0.94 0.70 - 1.30 mg/dL LAB CHEMISTRY METHOD 02/14/2024 11:12 AM [facility] LAB eGFR 88 >=60 mL/min/1. 73m2 LAB CHEMISTRY METHOD 02/14/2024 11:12 AM [facility] LAB Comment:Calculation based on the??Chronic Kidney Disease Epidemiology Collaboration (CKD-EPI) equation refit??without adjustment for race. BUN/Creatinine Ratio 20.2 LAB CHEMISTRY METHOD 02/14/2024 11:12 AM [facility] LAB Calcium 8.6 8.5 - 10.5 mg/dL LAB CHEMISTRY METHOD 02/14/2024 11:12 AM [facility] LAB AST (SGOT) 14 10 - 42 unit/L LAB CHEMISTRY METHOD 02/14/2024 11:12 AM [facility] LAB ALT (SGPT) 12 10 - 60 unit/L LAB CHEMISTRY METHOD 02/14/2024 11:12 AM [facility] LAB Alkaline Phosphatase 85 42 - 121 unit/L LAB CHEMISTRY METHOD 02/14/2024 11:12 AM [facility] LAB Total Protein 4.9(L) 6.0 - 8.0 g/dL LAB CHEMISTRY METHOD 02/14/2024 11:12 AM [facility] LAB Albumin 2.1(L) 3.2 - 5.0 g/dL LAB CHEMISTRY METHOD 02/14/2024 11:12 AM [facility] LAB Total Bilirubin 0.7 0.0 - 1.4 mg/dL LAB CHEMISTRY METHOD 02/14/2024 11:12 AM [facility] LAB Blood Venous blood specimen / Unknown Venipuncture / Unknown 02/14/2024 7:10 AM EST 02/14/2024 9:37 AM EST us Lauren Wiley MD LAB BLOOD ORDERABLES Fin al Result [facility] LAB [address] [place] [address], * (ABNORMAL) Complete blood count (02/14/2024 7:10 AM EST) WBC 4.7(L) 4.8 - 10.8 K/mcL LAB HEMETOLOGY METHOD 02/14/2024 10:38 AM [facility] LAB RBC 3.20(L) 4.50 - 5.50 M/mcL LAB HEMETOLOGY METHOD 02/14/2024 10:38 AM [facility] LAB Hemoglobin 10.1(L) 13.5 - 17.5 g/dL LAB HEMETOLOGY METHOD 02/14/2024 10:38 AM [facility] LAB Hematocrit 30.9(L) 42.0 - 54.0 % LAB HEMETOLOGY METHOD 02/14/2024 10:38 AM [facility] LAB MCV 95.4 79.0 - 98.0 FL LAB HEMETOLOGY METHOD 02/14/2024 10:38 AM [facility] LAB MCH 31.2 27.0 - 32.0 pcg LAB HEMETOLOGY METHOD 02/14/2024 10:38 AM [facility] LAB MCHC 32.7 32.0 - 37.0 g/dL LAB HEMETOLOGY METHOD 02/14/2024 10:38 AM [facility] LAB RDW 15.1(H) 11.0 - 15.0 % LAB HEMETOLOGY METHOD 02/14/2024 10:38 AM EST [facility] LAB Platelets 145 130 - 400 K/mcL LAB HEMETOLOGY METHOD 02/14/2024 10:38 AM EST [facility] LAB MPV 9.6 7.0 - 11.0 FL LAB HEMETOLOGY METHOD 02/14/2024 10:38 AM EST [facility] LAB NRBC 0.0 <1.0 % LAB HEMETOLOGY METHOD 02/14/2024 10:38 AM EST [facility] LAB NRBC Absolute 0.00 <0.10 K/mcL LAB HEMETOLOGY METHOD 02/14/2024 10:38 AM [facility] LAB Blood Venous blood specimen / Unknown Venipuncture / Unknown 02/14/2024 7:10 AM EST 02/14/2024 9:37 AM EST us Lauren Wiley MD LAB BLOOD ORDERABLES Fin al Result [facility] [address] [place] [address], documented in this encounter Visit Diagnoses Diagnosis Pyuria Other nonspecific finding on examination of urine documented in this encounter Additional Health Concerns Infection Onset Date Last Indicated Resolved Time ESBL 03/29/2024 03/29/2024 documented as of this encounter Care Teams Enterprise Application Analyst Relationship Specialty Start Date End Date Lauren Wiley MD [address] [place] [address] PCP - General Family Medicine 01/28/24 documented as of this encounter
--- OUTSIDE RECORDS SUMMARY | 2024-06-29 11:23 | XMS_ITS | Encounter Summary ---
Author Organization [employer] Address [address] [place] [address] Care Team Providers Care Workforce Development Vice President Name Role Phone Lauren Wiley MD Primary Care Provider + Encounter Details Date Type Department Care Team (Late st Contact Info) Description 02/25/2024 Lab Requisition [facility] Lab [address] [place] [address] Lauren Wiley MD [address] [phone] Essential (primary) hypertension Social History Tobacco Use [...] LAB CHEMISTRY METHOD 02/25/2024 12:38 PM EST [facility] LAB Potassium 4.4 3.5 - 5.5 mmol/L LAB CHEMISTRY METHOD 02/25/2024 12:38 PM EST [facility] LAB Chloride 121(H) 96 - 110 mmol/L LAB CHEMISTRY METHOD 02/25/2024 12:38 PM [facility] LAB CO2 25 21 - 32 mmol/L LAB CHEMISTRY METHOD 02/25/2024 12:38 PM [facility] LAB Anion Gap 4 3 - 11 LAB CHEMISTRY METHOD 02/25/2024 12:38 PM [facility] LAB Glucose 106(H) 70 - 100 mg/dL LAB CHEMISTRY METHOD 02/25/2024 12:38 PM [facility] LAB BUN 38(H) 5 - 25 mg/dL LAB CHEMISTRY METHOD 02/25/2024 12:38 PM [facility] LAB Creatinine 1.01 0.70 - 1.30 mg/dL LAB CHEMISTRY METHOD 02/25/2024 12:38 PM [facility] LAB eGFR 81 >=60 mL/min/1. 73m2 LAB CHEMISTRY METHOD 02/25/2024 12:38 PM [facility] LAB Comment:Calculation based on the??Chronic Kidney Disease Epidemiology Collaboration (CKD-EPI) equation refit??without adjustment for race. BUN/Creatinine Ratio 37.6 LAB CHEMISTRY METHOD 02/25/2024 12:38 PM [facility] LAB Calcium 8.6 8.5 - 10.5 mg/dL LAB CHEMISTRY METHOD 02/25/2024 12:38 PM [facility] LAB AST (SGOT) 18 10 - 42 unit/L LAB CHEMISTRY METHOD 02/25/2024 12:38 PM [facility] ALT (SGPT) 22 10 - 60 unit/L LAB CHEMISTRY METHOD 02/25/2024 12:38 PM [facility] LAB Alkaline Phosphatase 80 42 - 121 unit/L LAB CHEMISTRY METHOD 02/25/2024 12:38 PM [facility] LAB Total Protein 5.6(L) 6.0 - 8.0 g/dL LAB CHEMISTRY METHOD 02/25/2024 12:38 PM [facility] LAB Albumin 2.3(L) 3.2 - 5.0 g/dL LAB CHEMISTRY METHOD 02/25/2024 12:38 PM [facility] LAB Total Bilirubin 0.4 0.0 - 1.4 mg/dL LAB CHEMISTRY METHOD 02/25/2024 12:38 PM [facility] LAB Blood Venous blood specimen / Unknown Venipuncture / Unknown 02/25/2024 5:00 AM EST 02/25/2024 10:40 AM EST us Lauren Wiley MD LAB BLOOD ORDERABLES Fin al Result [facility] [address] [place] [address], * (ABNORMAL) Complete blood count (02/25/2024 5:00 AM EST) WBC 4.4(L) 4.8 - 10.8 K/mcL LAB HEMETOLOGY METHOD 02/25/2024 12:35 PM [facility] LAB RBC 3.10(L) 4.50 - 5.50 M/mcL LAB HEMETOLOGY METHOD 02/25/2024 12:35 PM [facility] LAB Hemoglobin 9.9(L) 13.5 - 17.5 g/dL LAB HEMETOLOGY METHOD 02/25/2024 12:35 PM [facility] LAB Hematocrit 31.0(L) 42.0 - 54.0 % LAB HEMETOLOGY METHOD 02/25/2024 12:35 PM [facility] LAB MCV 99.7(H) 79.0 - 98.0 FL LAB HEMETOLOGY METHOD 02/25/2024 12:35 PM [facility] LAB MCH 31.8 27.0 - 32.0 pcg LAB HEMETOLOGY METHOD 02/25/2024 12:35 PM [facility] LAB MCHC 31.9(L) 32.0 - 37.0 g/dL LAB HEMETOLOGY METHOD 02/25/2024 12:35 PM EST [facility] RDW 15.5(H) 11.0 - 15.0 % LAB HEMETOLOGY METHOD 02/25/2024 12:35 PM EST [facility] Platelets 189 130 - 400 K/mcL LAB HEMETOLOGY METHOD 02/25/2024 12:35 PM EST [facility] MPV 10.5 7.0 - 11.0 FL LAB HEMETOLOGY METHOD 02/25/2024 12:35 PM EST [facility] NRBC 0.0 <1.0 % LAB HEMETOLOGY METHOD 02/25/2024 12:35 PM [facility] LAB NRBC Absolute 0.00 <0.10 K/mcL LAB HEMETOLOGY METHOD 02/25/2024 12:35 PM [facility] LAB Blood Venous blood specimen / Unknown Venipuncture / Unknown 02/25/2024 5:00 AM EST 02/25/2024 10:40 AM EST us Lauren Wiley MD LAB BLOOD ORDERABLES Fin al Result [facility] [address] [place] [address], documented in this encounter Visit Diagnoses Diagnosis Essential (primary) hypertension Unspecified essential hypertension documented in this encounter Additional Health Concerns Infection Onset Date Last Indicated Resolved Time ESBL 03/29/2024 03/29/2024 documented as of this encounter Care Teams Workforce Development Vice President Relationship Specialty Start Date End Date Lauren Wiley MD [address] [place] [address] PCP - General Family Medicine 01/28/24 documented as of this encounter
--- OUTSIDE RECORDS SUMMARY | 2024-06-29 11:23 | XMS_ITS | Encounter Summary ---
Author Organization [employer] [facility] Address [address] [place] [address] Care Team Providers Care Marine Insulator Name Role Phone Elder, Lauren Paulino MD Primary Care Provider + Encounter Details Date Type Department Care Team (Late st Contact Info) Description 02/02/2024 Lab Requisition [facility] Lab [address] Counts Include [address] B[facility] At [facility] [place] [address] Yoav Osorio MD [address] [place] [address] [place] [phone] Essential (primary) hypertension Social History Tobacco Use [...] LAB CHEMISTRY METHOD 02/02/2024 12:58 PM EST [facility] Potassium 4.0 3.5 - 5.5 mmol/L LAB CHEMISTRY METHOD 02/02/2024 12:58 PM EST [facility] Chloride 113(H) 96 - 110 mmol/L LAB CHEMISTRY METHOD 02/02/2024 12:58 PM EST [facility] CO2 27 21 - 32 mmol/L LAB CHEMISTRY METHOD 02/02/2024 12:58 PM [facility] Anion Gap 5 3 - 11 LAB CHEMISTRY METHOD 02/02/2024 12:58 PM [facility] Glucose 71 70 - 100 mg/dL LAB CHEMISTRY METHOD 02/02/2024 12:58 PM [facility] BUN 31(H) 5 - 25 mg/dL LAB CHEMISTRY METHOD 02/02/2024 12:58 PM [facility] Comment:Results verified by repeat testing Creatinine 0.92 0.70 - 1.30 mg/dL LAB CHEMISTRY METHOD 02/02/2024 12:58 PM [facility] eGFR 90 >=60 mL/min/1. 73m2 LAB CHEMISTRY METHOD 02/02/2024 12:58 PM [facility] Comment:Calculation based on the??Chronic Kidney Disease Epidemiology Collaboration (CKD-EPI) equation refit??without adjustment for race. BUN/Creatinine Ratio 33.7 LAB CHEMISTRY METHOD 02/02/2024 12:58 PM [facility] Calcium 8.6 8.5 - 10.5 mg/dL LAB CHEMISTRY METHOD 02/02/2024 12:58 PM [facility] AST (SGOT) 18 10 - 42 unit/L LAB CHEMISTRY METHOD 02/02/2024 12:58 PM [facility] ALT (SGPT) 18 10 - 60 unit/L LAB CHEMISTRY METHOD 02/02/2024 12:58 PM [facility] Alkaline Phosphatase 94 42 - 121 unit/L LAB CHEMISTRY METHOD 02/02/2024 12:58 PM [facility] Total Protein 5.4(L) 6.0 - 8.0 g/dL LAB CHEMISTRY METHOD 02/02/2024 12:58 PM [facility] Albumin 2.3(L) 3.2 - 5.0 g/dL LAB CHEMISTRY METHOD 02/02/2024 12:58 PM [facility] Total Bilirubin 0.5 0.0 - 1.4 mg/dL LAB CHEMISTRY METHOD 02/02/2024 12:58 PM EST [facility] Blood Venous blood specimen / Unknown Venipuncture / Unknown 02/02/2024 5:08 AM EST 02/02/2024 10:37 AM EST us Yoav Osorio MD LAB BLOOD ORDERABLES Final Resu lt [facility] [address] [place] [address], documented in this encounter Visit Diagnoses Diagnosis Essential (primary) hypertension Unspecified essential hypertension documented in this encounter Additional Health Concerns Infection Onset Date Last Indicated Resolved Time ESBL 03/29/2024 03/29/2024 documented as of this encounter Care Teams Marine Insulator Relationship Specialty Start Date End Date Lauren Wiley MD [address] [place] [address] PCP - General Family Medicine 01/28/24 documented as of this encounter
--- OUTSIDE RECORDS SUMMARY | 2024-06-29 11:23 | XMS_ITS | Encounter Summary ---
Author Organization [employer] Address [address] [place] [address] Care Team Providers Care Mechanical Systems Engineer Name Role Phone Lauren Wiley MD Primary Care Provider + Encounter Details Date Type Department Care Team (Late st Contact Info) Description 03/29/[address] [facility] Lab [address] [place] [address] Lauren Wiley MD [address] [address] Hematuria, unspecified; Acute kidney failure, [...] AM EST) WBC 3.7(L) 4.8 - 10.8 K/[facility] LAB HEMETOLOGY METHOD 03/29/2024 10:[address] [facility] RBC 3.20(L) 4.50 - 5.50 M/mcL LAB HEMETOLOGY METHOD 03/29/2024 10:[address] [facility] Hemoglobin 10.4(L) 13.5 - 17.5 g/dL LAB HEMETOLOGY METHOD 03/29/2024 10:[address] [facility] Hematocrit 32.4(L) 42.0 - 54.0 % LAB HEMETOLOGY METHOD 03/29/2024 10:[address] [facility] MCV 100.6(H) 79.0 - 98.0 FL LAB HEMETOLOGY METHOD 03/29/2024 10:[address] [facility] MCH 32.3(H) 27.0 - 32.0 pcg LAB HEMETOLOGY METHOD 03/29/2024 10:[address] [facility] MCHC 32.1 32.0 - 37.0 g/dL LAB HEMETOLOGY METHOD 03/29/2024 10:[address] [facility] RDW 14.7 11.0 - 15.0 % LAB HEMETOLOGY METHOD 03/29/2024 10:[address] [facility] Platelets 162 130 - 400 K/mcL LAB HEMETOLOGY METHOD 03/29/2024 10:[address] [facility] MPV 9.8 7.0 - 11.0 FL LAB HEMETOLOGY METHOD 03/29/2024 10:[address] [facility] NRBC 0.0 <1.0 % LAB HEMETOLOGY METHOD 03/29/2024 10:[address] [facility] NRBC Absolute 0.00 <0.10 K/mcL LAB HEMETOLOGY METHOD 03/29/2024 10:[address] [facility] Neutrophils Relative 51.8 % LAB HEMETOLOGY METHOD 03/29/2024 10:[address] [facility] Lymphocytes Relative 31.7 % LAB HEMETOLOGY METHOD 03/29/2024 10:[address] [facility] Monocytes Relative 11.1 % LAB HEMETOLOGY METHOD 03/29/2024 10:[address] [facility] Eosinophils Relative 4.1 % LAB HEMETOLOGY METHOD 03/29/2024 10:[address] [facility] Basophils Relative 0.8 % LAB HEMETOLOGY METHOD 03/29/2024 10:[address] [facility] Immature Granulocytes Relative 0.5 % LAB HEMETOLOGY METHOD 03/29/2024 10:[address] [facility] Neutrophils Absolute 1.91 1.50 - 7.00 K/mcL LAB HEMETOLOGY METHOD 03/29/2024 10:[address] [facility] Lymphocytes Absolute 1.17 1.00 - 5.00 K/mcL LAB HEMETOLOGY METHOD 03/29/2024 10:[address] [facility] Monocytes Absolute 0.41 0.20 - 1.00 K/mcL LAB HEMETOLOGY METHOD 03/29/2024 10:[address] [facility] Eosinophils Absolute 0.15 0.00 - 0.50 K/mcL LAB HEMETOLOGY METHOD 03/29/2024 10:[address] [facility] Basophils Absolute 0.03 0.00 - 0.20 K/mcL LAB HEMETOLOGY METHOD 03/29/2024 10:[address] [facility] Immature Granulocytes Absolute 0.02 0.00 - 0.03 K/mcL LAB HEMETOLOGY METHOD 03/29/2024 10:[address] [facility] Blood Venous blood specimen / Unknown Venipuncture / Unknown 03/29/2024 7:56 AM EST 03/29/2024 10:14 AM EST us Lauren Wiley MD LAB BLOOD ORDERABLES Fin al Result [facility] [address] [place] [address], * (ABNORMAL) Comprehensive metabolic panel (03/29/2024 7:56 AM EST) Sodium 140 133 - 145 mmol/L LAB CHEMISTRY METHOD 03/29/2024 1:[address] [facility] Potassium 4.9 3.5 - 5.5 mmol/L LAB CHEMISTRY METHOD 03/29/2024 1:[address] [facility] Comment:Hemolysis present Chloride 109 96 - 110 mmol/L LAB CHEMISTRY METHOD 03/29/2024 1:[address] [facility] CO2 25 21 - 32 mmol/L LAB CHEMISTRY METHOD 03/29/2024 1:[address] [facility] Anion Gap 6 3 - 11 LAB CHEMISTRY METHOD 03/29/2024 1:[address] [facility] Glucose 85 70 - 100 mg/dL LAB CHEMISTRY METHOD 03/29/2024 1:[address] [facility] BUN 34(H) 5 - 25 mg/dL LAB CHEMISTRY METHOD 03/29/2024 1:[address] [facility] Creatinine 1.07 0.70 - 1.30 mg/dL LAB CHEMISTRY METHOD 03/29/2024 1:[address] [facility] eGFR 75 >=60 mL/min/1. 73m2 LAB CHEMISTRY METHOD 03/29/2024 1:[address] [facility] Comment:Calculation based on the??Chronic Kidney Disease Epidemiology Collaboration (CKD-EPI) equation refit??without adjustment for race. BUN/Creatinine Ratio 31.8 LAB CHEMISTRY METHOD 03/29/2024 1:[address] [facility] Calcium 9.1 8.5 - 10.5 mg/dL LAB CHEMISTRY METHOD 03/29/2024 1:[address] [facility] AST (SGOT) 25 10 - 42 unit/L LAB CHEMISTRY METHOD 03/29/2024 1:[address] [facility] Comment:Hemolysis present ALT (SGPT) 28 10 - 60 unit/L LAB CHEMISTRY METHOD 03/29/2024 1:[address] [facility] Alkaline Phosphatase 91 42 - 121 unit/L LAB CHEMISTRY METHOD 03/29/2024 1:[address] [facility] Total Protein 6.1 6.0 - 8.0 g/dL LAB CHEMISTRY METHOD 03/29/2024 1:[address] [facility] Albumin 2.4(L) 3.2 - 5.0 g/dL LAB CHEMISTRY METHOD 03/29/2024 1:[address] [facility] Total Bilirubin 0.4 0.0 - 1.4 mg/dL LAB CHEMISTRY METHOD 03/29/2024 1:[address] [facility] Blood Venous blood specimen / Unknown Venipuncture / Unknown 03/29/2024 7:56 AM EST 03/29/2024 10:14 AM EST Lauren Wiley MD LAB BLOOD ORDERABLES Fin al Result Performing Organization Address [facility]/State/[facility] Co de Phone Number [facility] [address] [place] [address], documented in this encounter Visit Diagnoses Diagnosis Hematuria, unspecified Acute kidney failure, unspecified (CMS/HCC V24) Acute kidney failure, unspecified documented in this encounter Additional Health Concerns Infection Onset Date Last Indicated Resolved Time ESBL 03/29/2024 03/29/2024 documented as of this encounter Care Teams Mechanical Systems Engineer Relationship Specialty Start Date End Date Lauren Wiley MD [address] [place] [address] PCP - General Family Medicine 01/28/24 documented as of this encounter
--- OUTSIDE RECORDS SUMMARY | 2024-06-29 11:23 | XMS_ITS | Encounter Summary ---
Author Organization [employer] [facility] Address [address] [place] [address] Care Team Providers Care Grade Foreman Name Role Phone Lauren Wiley MD Primary Care Provider + Encounter Details Date Type Department Care Team (Late st Contact Info) Description 12/27/2023 Lab Requisition [facility] Lab [address] [facility] [place] [address] Social History Tobacco Use Types [...] documented as of this encounter Care Teams Grade Foreman Relationship Specialty Start Date End Date Lauren Wiley MD [address] [place], [place] PCP - General Family Medicine 01/28/24 documented as of this encounter
--- OUTSIDE RECORDS SUMMARY | 2024-06-29 11:23 | XMS_ITS | Encounter Summary ---
Author Organization [employer] Address [address] [place] [address] Care Team Providers Care Silk Spooler Name Role Phone aLuren Wiley MD Primary Care Provider + Encounter Details Date Type Department Care Team (Late st Contact Info) Description 12/27/2023 Lab Requisition [facility] - Main Lab [address] [place] [address] Lauren Wiley MD [address] [phone] Anemia, unspecified; Essential (primary) hypertension Social History [...] Travel phlebotomy fee (12/27/2023 9:02 AM EST) [facility] TRAVEL PHLEBOTOMY FEE Completed 12/27/2023 12:01 PM EST [facility] Blood Venous blood specimen / Unknown Venipuncture / Unknown 12/27/2023 9:02 AM EST 12/27/2023 11:39 AM EST us Lauren Wiley MD LAB BLOOD ORDERABLES Fin al Result [facility]) [facility] [address] [place] [address], * Zinc (12/27/2023 9:02 AM EST) Zinc 61 60 - 130 ug/dL 12/30/2023 12:30 PM EST [facility] Comment: Elevated results may be due to sample collected in a non-certified trace element-free tube. This test was developed and the performance characteristics determined by [facility]. It has not been cleared or approved by the FDA. The laboratory is regulated under CLIA as qualified to perform high-complexity testing. This test is used for patient testing purposes. It should not be regarded as investigational or for research. Test performed at [facility], [address] , [place], [place] ??[address] ? [phone] Jeannette Lopez MD, PhD - Dust Mill Operator Blood Venous blood specimen / Unknown Venipuncture / Unknown 12/27/2023 9:02 AM EST 12/27/2023 11:39 AM EST Lauren Wiley MD LAB BLOOD ORDERABLES Fin al Result Performing Organization Address [facility]/ZIP Co de Phone Number [facility] [address] [place] [address] documented in this encounter Visit Diagnoses Diagnosis Anemia, unspecified Essential (primary) hypertension Unspecified essential hypertension documented in this encounter Additional Health Concerns Infection Onset Date Last Indicated Resolved Time ESBL 03/29/2024 03/29/2024 documented as of this encounter Care Teams Silk Spooler Relationship Specialty Start Date End Date Lauren Wiley MD [address] [place] [address] PCP - General Family Medicine 01/28/24 documented as of this encounter
--- OUTSIDE RECORDS SUMMARY | 2024-06-29 11:23 | XMS_ITS | Encounter Summary ---
Author Organization [employer] Address [address] [place] [address] Care Team Providers Care Dining Room Cashier Name Role Phone Lauren Wiley MD Primary Care Provider + Encounter Details Date Type Department Care Team (Late st Contact Info) Description 01/28/2024 Lab Requisition [facility] Lab [address] [place] [address] Lauren Wiley MD [address] [phone] Elevated white blood cell count, unspecified Social [...] LAB CHEMISTRY METHOD 01/28/2024 11:23 AM EST [facility] Potassium 3.9 3.5 - 5.5 mmol/L LAB CHEMISTRY METHOD 01/28/2024 11:23 AM EST [facility] Chloride 114(H) 96 - 110 mmol/L LAB CHEMISTRY METHOD 01/28/2024 11:23 AM [facility] CO2 25 21 - 32 mmol/L LAB CHEMISTRY METHOD 01/28/2024 11:23 AM [facility] Anion Gap 5 3 - 11 LAB CHEMISTRY METHOD 01/28/2024 11:23 AM [facility] Glucose 94 70 - 100 mg/dL LAB CHEMISTRY METHOD 01/28/2024 11:23 AM [facility] BUN 17 5 - 25 mg/dL LAB CHEMISTRY METHOD 01/28/2024 11:23 AM [facility] Creatinine 0.83 0.70 - 1.30 mg/dL LAB CHEMISTRY METHOD 01/28/2024 11:23 AM [facility] eGFR 95 >=60 mL/min/1. 73m2 LAB CHEMISTRY METHOD 01/28/2024 11:23 AM [facility] Comment:Calculation based on the??Chronic Kidney Disease Epidemiology Collaboration (CKD-EPI) equation refit??without adjustment for race. BUN/Creatinine Ratio 20.5 LAB CHEMISTRY METHOD 01/28/2024 11:23 AM [facility] Calcium 8.3(L) 8.5 - 10.5 mg/dL LAB CHEMISTRY METHOD 01/28/2024 11:23 AM [facility] Blood Venous blood specimen / Unknown Venipuncture / Unknown 01/28/2024 5:27 AM EST 01/28/2024 10:37 AM EST us Lauren Wiley MD LAB BLOOD ORDERABLES Fin al Result [facility] [address] [place] [address], * (ABNORMAL) Complete blood count (01/28/2024 5:27 AM EST) WBC 4.2(L) 4.8 - 10.8 K/mcL LAB HEMETOLOGY METHOD 01/28/2024 11:22 AM [facility] RBC 3.40(L) 4.50 - 5.50 M/mcL LAB HEMETOLOGY METHOD 01/28/2024 11:22 AM [facility] Hemoglobin 10.5(L) 13.5 - 17.5 g/dL LAB HEMETOLOGY METHOD 01/28/2024 11:22 AM [facility] Hematocrit 32.3(L) 42.0 - 54.0 % LAB HEMETOLOGY METHOD 01/28/2024 11:22 AM [facility] MCV 96.4 79.0 - 98.0 FL LAB HEMETOLOGY METHOD 01/28/2024 11:22 AM [facility] MCH 31.3 27.0 - 32.0 pcg LAB HEMETOLOGY METHOD 01/28/2024 11:22 AM [facility] MCHC 32.5 32.0 - 37.0 g/dL LAB HEMETOLOGY METHOD 01/28/2024 11:22 AM [facility] RDW 14.4 11.0 - 15.0 % LAB HEMETOLOGY METHOD 01/28/2024 11:22 AM [facility] Platelets 132 130 - 400 K/mcL LAB HEMETOLOGY METHOD 01/28/2024 11:22 AM [facility] MPV 9.7 7.0 - 11.0 FL LAB HEMETOLOGY METHOD 01/28/2024 11:22 AM [facility] NRBC 0.0 <1.0 % LAB HEMETOLOGY METHOD 01/28/2024 11:22 AM [facility] NRBC Absolute 0.00 <0.10 K/mcL LAB HEMETOLOGY METHOD 01/28/2024 11:22 AM [facility] Blood Venous blood specimen / Unknown Venipuncture / Unknown 01/28/2024 5:27 AM EST 01/28/2024 10:37 AM EST us Lauren Wiley MD LAB BLOOD ORDERABLES Fin al Result [facility] [address] [place] [address], documented in this encounter Visit Diagnoses Diagnosis Elevated white blood cell count, unspecified documented in this encounter Additional Health Concerns Infection Onset Date Last Indicated Resolved Time ESBL 03/29/2024 03/29/2024 documented as of this encounter Care Teams Dining Room Cashier Relationship Specialty Start Date End Date Lauren Wiley MD [address] [place] [address] PCP - General Family Medicine 01/28/24 documented as of this encounter
[2024-06-29 11:41] LABS: Reflex Lactate? Lactic Acid Added
[2024-06-29] MEDS: Norepinephrine Bitartrate/D5W 8 MG/250 ML PLAST..BAG 6.46 MG IV (11:44)
--- NOTE | 2024-06-29 11:58 | PC.NURSE ---
Levo drip increased to 0.2mcg/kg/min per MD Fry.
--- NOTE | 2024-06-29 12:34 | PC.NURSE ---
Pt taken to CT Scan and then ICU with ED RN and distribution engineering technologist transport. Pt tolerated well with no adverse events, care transferred. Lab came to draw repeat lactic when pt was en route to ICU, PATIENT OBSERVER Emelina made aware to follow up.
--- NOTE | 2024-06-29 12:35 | PHA.MEDREC ---
Addendum entered by Haroldo Souza RPh 06/29/24 12:47: Reviewed by [facility] Original Note: Pharmacy Consult ? Medication Reconciliation Pharmacy has completed the medication reconciliation. utilized list from [facility] to confirm med list.
[2024-06-29] MEDS: iohexoL 350 MG/ML 100 ML INFUS..BTL IV (12:51)
[2024-06-29 13:45] LABS: ~Lactic Acid-LAB USE ONLY 2.5 mmol/L (0.5-2.0)
[2024-06-29 13:48] LABS: Phosphorus 3.3 mg/dL (2.7-4.5)
[2024-06-29 15:12] LABS: Reflex Lactate? 2 Y
[2024-06-29] MEDS: Enoxaparin Sodium 40 MG/0.4 ML SYRINGE SUBCUT (15:20)
[2024-06-29] MEDS: 0.9 % Sodium Chloride 1,000 ML 999 ML IV (15:42)
--- NOTE | 2024-06-29 17:14 | P.HPCC_ITS ---
History of Present Illness Date of Service: 06/29/24 Chief Complaint: Shock History is limited as patient is nonverbal 68-year-old male resident of [facility] with complex multiple medical problems not limited to vascular dementia, CVA with R-sided hemiparesis- nonverbal, neurogenic bladder with chronic SPT, stage 4 sacral decubitus ulcer, hx C. difficile colitis, seizure disorder, HTN, HLD, chronic suprapubic catheter and left-sided nephrostomy, sacral decubitus ulcers x2 presented to the ED due to fever and decreased responsiveness from the rehab. Unable to obtain any further history. In the ED he was found to be in shock critical bolus fluids without much improvement in blood pressures, so Levophed restarted and medical ICU was consulted for admission. Possible source of shock is urinary infection, patient has a history of ESBL UTI in the past. Has lactic acidosis of 2.5, CT abdomen and pelvis showing sacral osteomyelitis, possible pseudo-obstruction of colon. Review of Systems 2 Review of Systems: Unable to obtain as patient is nonverbal PMFSH Past Medical History Medical History 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 Mother No problems noted. Surgical History Surgical History No pertinent past surgical history Social History Social History Household Members: None and Other Household Members Other:: SNF Housing: Residential Are you a primary healthcare social worker to a significant other at home: No Do you presently have visiting nurse or other home services: Yes Unable to assess alcohol history related to: Unable to respond Alcohol intake: former Comment: patient sleeping Patient Tobacco Use Status: Tobacco use Unknown Second Hand Smoke Exposure: No Use of substances other than those prescribed or required for medical reasons: Unable to respond Advance Directives: Yes Advance Directives on File: Yes Advance Directives Date on File: 02/14/20 Recently lost weight without trying: Unsure Nutrition Risks: No Nutritional Risk service: No Current occupational status: disabled Meds Allergies Allergy/AdvReac Type Severity Reaction Status Date / Time No Known Allergies Allergy Verified 06/29/24 10:01 [No Known Allergies*] Active Medications: Current Medications Enoxaparin Sodium (Enoxaparin Sodium 40 Mg/0.4 Ml Syringe) 40 mg SUBCUT Q24H KEE Last Admin: 06/29/24 15:20 Dose: 40 mg Norepinephrine Bitartrate (Levophed) 8 mg in 250 mls @ 0 mls/hr IV .Q0M KEE; Protocol Last Titration: 06/29/24 16:50 Dose: 0.1 mcg/kg/min, 12.92 mls/hr Sodium Chloride (Ns) 1,000 mls @ 999 mls/hr IV .Q1H1M KEE Stop: 06/29/24 18:00 Home Medications ?Medication ?Instructions ?Recorded ?Confirmed ?Last Taken ?Type acetaminophen 325 mg tablet 650 mg PO Q4H PRN fever/pain 02/16/21 06/29/24 Unknown History bisacodyl 10 mg rectal suppository 10 mg MO DAILY PRN If no BM in 8 02/16/21 06/29/24 Unknown History hours after use of MoM calcium 600 mg (as 1 tab PO BID 02/16/21 06/29/24 02/14/22 History carbonate)-vitamin D3 5 mcg (200 unit) tablet magnesium hydroxide 400 mg/5 mL 30 ml PO DAILY PRN No BM in 3 Days 02/16/21 06/29/24 Unknown History oral suspension (Milk of Magnesia) levetiracetam 100 mg/mL oral 2.5 ml PO BID 02/26/21 06/29/24 02/14/22 History solution atorvastatin 80 mg tablet 80 mg PO DAILY 01/26/22 06/29/24 02/14/22 History rivaroxaban 20 mg tablet (Xarelto) 20 mg PO DAILY@1700 01/26/22 06/29/24 02/14/22 History magnesium citrate 150 ml PO DAILY PRN No BM in 12 hrs 02/15/22 06/29/24 Unknown History sodium phosphates 19 gram-7 118 ml MO DAILY PRN If no BM in 8 02/15/22 06/29/24 Unknown History gram/118 mL enema (Fleet Enema) hours after use of Bisacodyl acetaminophen 325 mg tablet 650 mg PO BEDTIME 10/03/22 06/29/24 Unknown History (Tylenol) acetic acid 0.25 % irrigation 50 ml irrigation TUTHSA@2100 10/03/22 06/29/24 Unknown History solution ferrous sulfate 325 mg (65 mg 325 mg PO DAILY 12/22/22 06/29/24 Unknown History iron) tablet multivitamin 1 tab PO DAILY 01/18/24 06/29/24 Unknown History psyllium 1 ea PO BEDTIME 01/18/24 06/29/24 Unknown History sodium hypochlorite 0.125 % 1 appl topical BEDTIME 01/18/24 06/29/24 Unknown History solution oxycodone 5 mg tablet 5 mg PO DAILY PRN Pain/Wound 04/19/24 06/29/24 Unknown History Management potassium chloride 20 mEq/15 mL 30 meq PO BID 04/19/24 06/29/24 Unknown History oral liquid simethicone 80 mg chewable tablet 80 mg PO Q6H PRN Abdominal 04/19/24 06/29/24 Unknown History Distention collagenase clostridium histo. 250 1 appl topical DAILY 06/29/24 06/29/24 Unknown History unit/gram topical ointment (Santyl) oxycodone 5 mg tablet 5 mg PO DAILY 06/29/24 06/29/24 Unknown History Physical Exam 2 Vital Signs: Vital Signs: Last Vital Signs Temp 97 F 06/29/24 15:59 Pulse 53 06/29/24 16:50 Resp 12 06/29/24 15:59 BP 126/88 06/29/24 16:50 Pulse Ox 97 06/29/24 15:59 O2 Del Method Room Air 06/29/24 15:59 BMI result Body Mass Index 25.3 General: Chronically ill appearing, debilitated, bed-bound with contractures, nonverbal Nutritional Appearance: well nourished and overweight Eyes: appearance normal, both eyes and all related structures; Alignment and Position: alignment normal and position normal Neck: No lymphadenopathy, no thyromegaly Resp: bilateral air entry equal, occasional added sounds present Cardio: Regular rate, regular rhythm; Heart sounds: S1 normal heart sound present and S2 normal heart sound present GI: soft, nontender, no guarding, no hepatosplenomegaly : bladder normal to inspection, bladder normal to palpation, no renal angle tenderness Skin: no rashes or lesions noted and elasticity normal Neuro: o nonverbal, chronic contractures present Results Labs 06/29/24 09:35 06/29/24 09:35 Labs: Laboratory Results - last 24 hr 06/29/24 06/29/24 06/29/24 09:20 09:22 09:35 MCV 96.3 MCH 32.7 MCHC 34.0 RDW 15.0 Plt Count 209 MPV 9.0 L Immature Gran % (Auto) 0.4 Neut % (Auto) 82.9 H Lymph % (Auto) 6.4 L [place] % (Auto) 10.2 Eos % (Auto) 0.0 Baso % (Auto) 0.1 Lymph # (Auto) 0.7 L [place] # (Auto) 1.1 Eos # (Auto) 0.0 Baso # (Auto) 0.0 Abs Immat Gran (auto) 0.04 H Absolute Neuts (auto) 8.8 H Absolute Nucleated RBC 0.000 Nucleated RBC % (auto) 0.0 Hold Purple Top PT 16.3 H D INR 1.4 H Anion Gap 12 Estim Creat Clear Calc 46.6 Estimated GFR 55 Random Glucose 139 H Lactic Acid 2.5 H* Lactic Acid F/U @ 2Hr Calcium 8.8 Phosphorus Total Bilirubin 0.5 Direct Bilirubin 0.3 AST 27 ALT 22 Alkaline Phosphatase 79 Total Protein 6.5 Albumin 2.5 L Lipase 24 Urine Color Yellow Yellow Urine Appearance Turbid Turbid Urine pH >= 9.0 >= 9.0 Ur Specific [place] 1.020 1.015 Urine Protein 100 (2+) H 100 (2+) H Urine Glucose (UA) Negative Negative Urine Ketones Negative Negative Urine Blood Large (3+) H Large (3+) H Urine Nitrite Positive H Negative Ur Leukocyte Esterase Large (3+) H Large (3+) H Urine RBC 3-5 H >20 H Urine WBC 6-10 >50 H Ur Squamous Epith Cells 3-5 0-2 Other Crystals Present Present Urine Bacteria 2+ 3+ Hyaline Casts 0-2 0-2 Influenza Type A (PCR) NEGATIVE Influenza Type B (PCR) NEGATIVE RSV RNA Qual (PCR) NEGATIVE SARS-CoV-2 RNA (RT-PCR) NEGATIVE 06/29/24 06/29/24 09:37 13:07 MCV MCH MCHC RDW Plt Count MPV Immature Gran % (Auto) Neut % (Auto) Lymph % (Auto) [place] % (Auto) Eos % (Auto) Baso % (Auto) Lymph # (Auto) [place] # (Auto) Eos # (Auto) Baso # (Auto) Abs Immat Gran (auto) Absolute Neuts (auto) Absolute Nucleated RBC Nucleated RBC % (auto) Hold Purple Top SEE NOTE PT INR Anion Gap Estim Creat Clear Calc Estimated GFR Random Glucose Lactic Acid Lactic Acid F/U @ 2Hr 2.5 H* Calcium Phosphorus 3.3 Total Bilirubin Direct Bilirubin AST ALT Alkaline Phosphatase Total Protein Albumin Lipase Urine Color Urine Appearance Urine pH Ur Specific [place] Urine Protein Urine Glucose (UA) Urine Ketones Urine Blood Urine Nitrite Ur Leukocyte Esterase Urine RBC Urine WBC Ur Squamous Epith Cells Other Crystals Urine Bacteria Hyaline Casts Influenza Type A (PCR) Influenza Type B (PCR) RSV RNA Qual (PCR) SARS-CoV-2 RNA (RT-PCR) Imaging Radiologist's Impressions: Impressions Chest X-Ray 06/29/24 09:11 IMPRESSION: Low lung volumes. Left lower lobe atelectasis versus pneumonia. Electronically signed by: Ho Cruz MD 06/29/2024 10:12 AM EDT Abdomen/Pelvis CT 06/29/24 11:40 IMPRESSION: Persistent pseudoobstruction with a transitional caliber at the rectosigmoid colon. Consider metabolic versus neurogenic etiology. No ascites. No pneumoperitoneum. Probable airspace disease, lung bases. Questionable osteomyelitis, sacrococcyx. Fleischner guidelines were followed. Electronically signed by: Wisam Palmer MD 06/29/2024 01:08 PM EDT Assessment and Plan (1) VI (acute kidney injury): Status: Acute (2) Multiple renal calculi: Status: Acute (3) History of insertion of nephrostomy tube: Status: Acute (4) UTI due to extended-spectrum beta lactamase (ESBL) producing Escherichia coli: Status: Acute (5) Complicated urinary tract infection: Status: Acute (6) UTI (urinary tract infection) due to urinary indwelling Walker catheter: Status: Acute Plan Septic Shock: Possibly secondary to urinary tract infection and urosepsis Received sepsis dose fluid boluses, lactate trended, antibiotics started, blood cultures sent CT abdomen and pelvis showing some evidence of pneumonia, sacral osteomyelitis, pseudo-obstruction of the colon On Levophed support, titrate Levophed to keep map above 65 mm Hg History of CVA: Currently bed-bound, nonverbal with significant contractures GI: We will start on tube feeds tomorrow Acute lactic acidosis: Secondary to septic shock, we will trend Heme: Chronic anemia, closely monitor H&H, transfuse for hemoglobin less than 7 grams/deciliter Infectious disease: Evidence of pneumonia, urinary tract infection and sacral osteomyelitis We will start on Zyvox and meropenem given the history of ESBL UTI Musculoskeletal: Decubitus ulcer prevention protocol Lines: Peripheral Prophylaxis: Lovenox, pantoprazole
[2024-06-29 17:31] LABS: ~Lactic Acid-LAB USE ONLY 1.7 mmol/L (0.5-2.0)
[2024-06-29] MEDS: 0.9 % Sodium Chloride 1,000 ML 500 ML IV (17:46)
[2024-06-29] MEDS: Linezolid/D5W 600 MG/300 ML PIGGYBACK 300 MG IV (17:46)
[2024-06-29] MEDS: Meropenem 500 MG VIAL IVPUSH (19:14)
--- NOTE | 2024-06-29 19:30 | HO.SKINPHOTO ---
Location: coccyx Category: Stage: Length: Width: Depth: cm Location: [place] Category: Stage: Length: Width: Depth: cm
--- NOTE | 2024-06-29 19:33 | PC.NURSE ---
patient arrived to unit from ED this afternoon, oriented to unit, Levophed titrated down as per APR, MAP>65 as ordered, admission assessment and task completed, IV fluid bolus given as ordered, antibiotics given as ordered, nods yes and no accordingly when spoken to in salvadorean, wound pictures uploaded, resting comfortably.
--- NOTE | 2024-06-29 23:09 | HO.SKINPHOTO ---
Location: Right Great Toe Category: Pressure Stage: ?DTI
[2024-06-30] VITALS (17 sets, daily range): BP systolic 122–191; BP diastolic 70–97; PULSE 75–96; RESP 9–18; TEMP 36.2–36.8; O2SAT 96–99; BMI 25.3
[2024-06-30] MEDS: Meropenem 500 MG VIAL IVPUSH ×3 (01:58→20:13)
[2024-06-30 04:48] LABS: MANUAL DIFF FLAG NO
[2024-06-30 04:49] LABS: Basophils Percent Auto 0.2 % (0-2); Eosinophils Absolute Auto 0.1 X10*3/uL (0.0-0.4); Eosinophils Percent Auto 1.1 % (0-4); Hematocrit 24.3 % (42.0-52.0); Hemoglobin 8.3 g/dl (14.0-18.0); Imm Gran Abs Auto 0.02 X10*3/uL (0.00-0.03); Imm Gran Pct Auto 0.4 % (0.0-0.4); Lymphocytes Percent Auto 18.5 % (20-40); Mean Corpuscular HGB Conc 34.2 g/dl (31.0-36.0); Mean Corpuscular Hemoglobin 32.9 pg (27.0-33.0); Mean Corpuscular Volume 96.4 fL (80.0-98.0); Mean Platelet Volume 9.4 fL (9.4-12.4); Monocytes Absolute Auto 0.8 X10*3/uL (0.1-1.2); Neutrophils Absolute Auto 3.6 x10*3/uL (2.0-8.3); Neutrophils Percent Auto 65.8 % (45-73); Platelet Count 161 X10*3/uL (160-400); Red Blood Count 2.52 X10*6/uL (4.60-5.80); Red Cell Distribution Width 14.6 % (11.0-16.0); White Blood Count 5.4 X10*3/uL (4.8-10.8)
[2024-06-30] MEDS: Linezolid/D5W 600 MG/300 ML PIGGYBACK 300 MG IV ×2 (05:00→20:17)
[2024-06-30 05:07] LABS: Alanine Aminotransferase 21 U/L (0-40); Albumin Level 2.6 g/dL (3.5-5.0); Alkaline Phosphatase 73 U/L (39-117); Anion Gap 11 (12-20); Aspartate Amino Transferase 24 U/L (5-37); Bilirubin Total 0.5 mg/dL (0.0-1.0); Blood Urea Nitrogen 34 mg/dL (9-16); Calcium 8.3 mg/dL (8.4-10.2); Carbon Dioxide 20 mmol/L (22-29); Chloride 117 mmol/L (96-108); Creatinine Clr Calc Pharmacy 56.6; Estimated Glomerular Filt Rate > 60; Glucose Random 103 mg/dL (60-115); Magnesium 2.2 mg/dL (1.6-2.6); Potassium 3.3 mmol/L (3.3-5.1); Sodium 145 mmol/L (135-145); Total Protein 6.2 g/dL (6.5-8.0)
[2024-06-30] MEDS: Potassium Chloride/H20 10 MEQ/100 ML PIGGYBACK 100 MEQ IV ×2 (07:49→08:58)
[2024-06-30] MEDS: 0.9 % Sodium Chloride Flush 3 ML SYRINGE IVFLUSH ×3 (07:50→21:34)
--- NOTE | 2024-06-30 08:39 | PM.CCPN ---
Subjective Subjective Date of Service: 06/30/24 Interval History: Off vasopressor support since yesterday evening, blood pressure stable Critical Care Time (minutes): 35 Physical Exam Vital Signs: Vital Signs: Last Vital Signs Temp 97.8 F 06/30/24 08:00 Pulse 84 06/30/24 08:00 Resp 17 06/30/24 08:00 BP 137/73 06/30/24 08:00 Pulse Ox 97 06/30/24 08:00 O2 Del Method Room Air 06/30/24 08:00 BMI result Body Mass Index 25.3 General: Chronically ill, debilitated elderly male lying in the bed Nutritional Appearance: well nourished and overweight Eyes: appearance normal, both eyes and all related structures; Alignment and Position: alignment normal and position normal Neck: No lymphadenopathy, no thyromegaly Resp: bilateral air entry equal, occasional added sounds present Cardio: Regular rate, regular rhythm; Heart sounds: S1 normal heart sound present and S2 normal heart sound present GI: soft, nontender, no guarding, no hepatosplenomegaly : bladder normal to inspection, bladder normal to palpation, no renal angle tenderness Skin: no rashes or lesions noted and elasticity normal Neuro: aphasia/dysphasia, chronic contractures Objective Data Labs 06/30/24 04:37 06/30/24 04:36 Labs: Laboratory Results - last 24 hr 06/29/24 06/29/24 06/29/24 09:20 09:22 09:35 WBC 10.6 RBC 2.69 L Hgb 8.8 L Hct 25.9 L MCV 96.3 MCH 32.7 MCHC 34.0 RDW 15.0 Plt Count 209 MPV 9.0 L Immature Gran % (Auto) 0.4 Neut % (Auto) 82.9 H Lymph % (Auto) 6.4 L [place] % (Auto) 10.2 Eos % (Auto) 0.0 Baso % (Auto) 0.1 Lymph # (Auto) 0.7 L [place] # (Auto) 1.1 Eos # (Auto) 0.0 Baso # (Auto) 0.0 Abs Immat Gran (auto) 0.04 H Absolute Neuts (auto) 8.8 H Absolute Nucleated RBC 0.000 Nucleated RBC % (auto) 0.0 Hold Purple Top PT 16.3 H D INR 1.4 H Sodium 144 Potassium 4.7 Chloride 116 H Carbon Dioxide 21 L Anion Gap 12 BUN 51 H Creatinine 1.30 Estim Creat Clear Calc 46.6 Estimated GFR 55 Random Glucose 139 H Lactic Acid 2.5 H* Lactic Acid F/U @ 2Hr Lactic Acid F/U @ 4Hr Calcium 8.8 Phosphorus Magnesium Total Bilirubin 0.5 Direct Bilirubin 0.3 AST 27 ALT 22 Alkaline Phosphatase 79 Troponin I High Sens Total Protein 6.5 Albumin 2.5 L Lipase 24 Urine Color Yellow Yellow Urine Appearance Turbid Turbid Urine pH >= 9.0 >= 9.0 Ur Specific [place] 1.020 1.015 Urine Protein 100 (2+) H 100 (2+) H Urine Glucose (UA) Negative Negative Urine Ketones Negative Negative Urine Blood Large (3+) H Large (3+) H Urine Nitrite Positive H Negative Ur Leukocyte Esterase Large (3+) H Large (3+) H Urine RBC 3-5 H >20 H Urine WBC 6-10 >50 H Ur Squamous Epith Cells 3-5 0-2 Other Crystals Present Present Urine Bacteria 2+ 3+ Hyaline Casts 0-2 0-2 Influenza Type A (PCR) NEGATIVE Influenza Type B (PCR) NEGATIVE RSV RNA Qual (PCR) NEGATIVE SARS-CoV-2 RNA (RT-PCR) NEGATIVE 06/29/24 06/29/24 06/29/24 09:37 13:07 15:37 WBC RBC Hgb Hct MCV MCH MCHC RDW Plt Count MPV Immature Gran % (Auto) Neut % (Auto) Lymph % (Auto) [place] % (Auto) Eos % (Auto) Baso % (Auto) Lymph # (Auto) [place] # (Auto) Eos # (Auto) Baso # (Auto) Abs Immat Gran (auto) Absolute Neuts (auto) Absolute Nucleated RBC Nucleated RBC % (auto) Hold Purple Top SEE NOTE PT INR Sodium Potassium Chloride Carbon Dioxide Anion Gap BUN Creatinine Estim Creat Clear Calc Estimated GFR Random Glucose Lactic Acid Lactic Acid F/U @ 2Hr 2.5 H* Lactic Acid F/U @ 4Hr 1.7 Calcium Phosphorus 3.3 Magnesium Total Bilirubin Direct Bilirubin AST ALT Alkaline Phosphatase Troponin I High Sens 24.6 D Total Protein Albumin Lipase Urine Color Urine Appearance Urine pH Ur Specific [place] Urine Protein Urine Glucose (UA) Urine Ketones Urine Blood Urine Nitrite Ur Leukocyte Esterase Urine RBC Urine WBC Ur Squamous Epith Cells Other Crystals Urine Bacteria Hyaline Casts Influenza Type A (PCR) Influenza Type B (PCR) RSV RNA Qual (PCR) SARS-CoV-2 RNA (RT-PCR) 06/30/24 06/30/24 04:36 04:37 WBC 5.4 RBC 2.52 L Hgb 8.3 L Hct 24.3 L MCV 96.4 MCH 32.9 MCHC 34.2 RDW 14.6 Plt Count 161 MPV 9.4 Immature Gran % (Auto) 0.4 Neut % (Auto) 65.8 Lymph % (Auto) 18.5 L [place] % (Auto) 14.0 H Eos % (Auto) 1.1 Baso % (Auto) 0.2 Lymph # (Auto) 1.0 L [place] # (Auto) 0.8 Eos # (Auto) 0.1 Baso # (Auto) 0.0 Abs Immat Gran (auto) 0.02 Absolute Neuts (auto) 3.6 Absolute Nucleated RBC 0.000 Nucleated RBC % (auto) 0.0 Hold Purple Top PT INR Sodium 145 Potassium 3.3 D Chloride 117 H Carbon Dioxide 20 L Anion Gap 11 L BUN 34 H Creatinine 1.07 Estim Creat Clear Calc 56.6 Estimated GFR > 60 Random Glucose 103 Lactic Acid Lactic Acid F/U @ 2Hr Lactic Acid F/U @ 4Hr Calcium 8.3 L Phosphorus Magnesium 2.2 Total Bilirubin 0.5 Direct Bilirubin AST 24 ALT 21 Alkaline Phosphatase 73 Troponin I High Sens Total Protein 6.2 L Albumin 2.6 L Lipase Urine Color Urine Appearance Urine pH Ur Specific [place] Urine Protein Urine Glucose (UA) Urine Ketones Urine Blood Urine Nitrite Ur Leukocyte Esterase Urine RBC Urine WBC Ur Squamous Epith Cells Other Crystals Urine Bacteria Hyaline Casts Influenza Type A (PCR) Influenza Type B (PCR) RSV RNA Qual (PCR) SARS-CoV-2 RNA (RT-PCR) Progress Note: A&P Assessment and plan (1) VI (acute kidney injury): Status: Acute (2) UTI due to extended-spectrum beta lactamase (ESBL) producing Escherichia coli: Status: Acute (3) Complicated urinary tract infection: Status: Acute (4) UTI (urinary tract infection) due to urinary indwelling Walker catheter: Status: Acute (5) Osteomyelitis: Status: Acute (6) Stage 4 pressure ulcer: Status: Acute Plan Septic Shock: Possibly secondary to urinary tract infection and urosepsis Off Levophed support since last evening, blood pressure stable CT abdomen and pelvis showing some evidence of pneumonia, sacral osteomyelitis, pseudo-obstruction of the colon History of CVA: Currently bed-bound, nonverbal with significant contractures GI: We will get speech eval for swallow Heme: Chronic anemia, closely monitor H&H, transfuse for hemoglobin less than 7 grams/deciliter Infectious disease: Evidence of pneumonia, urinary tract infection and sacral osteomyelitis Cultures pending Continue on Zyvox and meropenem given the history of ESBL UTI has watery diarrhea, will send C. diff and start metronidazole. Musculoskeletal: Decubitus ulcer prevention protocol has osteomyelitis of sacrum wound consulted. Lines: Peripheral Prophylaxis: Lovenox, pantoprazole Quality Stroke Does the patient have a stroke diagnosis?: No VTE Prior VTE?: No VTE Risk Level:: Medical - moderate - high VTE Device Contraindication: N/A - Device Ordered VTE Drug Contraindication: N/A - Med Ordered
--- NOTE | 2024-06-30 10:33 | MHC.CM.PN ---
IMM DELIVERED, MESSAGE LEFT FOR SON/HCP WENDY AND WHITE COPY LEFT AT BEDSIDE IN ICU. PT IS DEPENDENT WITH [facility] AND IS A LTC RESIDENT OF [facility]. +HCP/MOLST ON FILE . PCP AT CENTER IS DR. SINGH. RETURN REFERRAL SENT TO [facility]. DP: PT WILL RETURN TO [facility] ON DC VIA BLS.
--- NOTE | 2024-06-30 11:17 | MHC.CLN ---
PT WITH INCREASED NUTRITION RISK R/T PRESSURE INJURY DISCUSSED AT ROUNDS WITH PT IS CURRENTLY NPO SPEECH EVAL PENDING FOR APPROPRIATE DIET CONSISTENCY WHEN DIET TO ADVANCE; RECOMMEND ADDING ENSURE TID TO PROMOTE WOUND HEALING SUPP TO PROVIDE 1050KCALS, 60G PROTEIN FOLLOWING FOR DIET ADVANCEMENT SEE FULL CLINICAL NUTRITION ASSESSMENT
[2024-06-30] MEDS: metroNIDAZOLE/NS 500 MG/100 ML PIGGYBACK 100 MG IV ×2 (11:47→20:17)
[2024-06-30] MEDS: Enoxaparin Sodium 40 MG/0.4 ML SYRINGE SUBCUT (12:52)
[2024-06-30 13:04] LABS: CDiff Gene PCR POSITIVE (Negative)
--- NOTE | 2024-06-30 13:18 | MHC.SL.SWA ---
Speech Pathologist Impression: Moderate Oropharyngeal Dysphagia Risk of Aspiration Due to: Reduced Cognition Dysphasia Diet Status: START on NDD1/HTL Liquid Consistency and Strategies for Safe Swallow: Liquid Intake Recommendation: Honey Thick Solid Food Consistency: Dietary Recommendations: Pureed (NDD1) Additional Modifications to Solid Foods: Patient presents with moderate oropharyngeal phase dysphagia, characterized by slow and disorganized oral phase and delayed pharyngeal phase. Patient presents with repetitive tongue pumping, partial laryngeal elevation, and mildly delayed pharyngeal swallow trigger. Complete oral clearance noted on liquid and solid consistencies and no overt s/s of aspiration with PO intake. ST intervention is no longer indicated at this level of care, as patient is stable and tolerating BELLING MACHINE OPERATOR recommendation of PUREED (NDD1) solids and HONEY THICK liquids, pills to be CRUSHED in PUREE. Recommend ST intervention and continue modified diet at next level of care. Please re-refer if needed. Oral Medication Intake: Crushed with Puree Please contact the pharmacy regarding appropriate crushable or liquid drug formulations that are available whenever modified delivery is recommended. Supervision While Eating and Drinking for Safe Swallow: Total Assistance (1:1) Recommendation for Speech: Inpatient Speech Therapy Speech Therapy through [facility] Comment: BELLING MACHINE OPERATOR will continue to follow during inpatient stay. Patient will likely need continued speech services after discharge for dysphagia tx. Frequency/Duration: M-F while inpatient Date Range for Service Req: Timeline to reassess: Wastewater Plant Operator Clinican/Clinical Fellow: No Supervisory Statement: I have reviewed and agree with the student/clinical fellow's documentation: N/A Speech Language Pathologist: Danielle Avery M.A., CCC-BELLING MACHINE OPERATOR
[2024-06-30 13:39] LABS: CDIFF Internal ctrl Dots and bkg OK (V); CDiff Toxin Negative (Negative)
--- NOTE | 2024-06-30 17:13 | PM.EVENT ---
Event Note Date of Service: 06/30/24 Event Note: This ia a 68yo male who is LTC resident of [facility], nonverbal with history of vascular dementia, CVA with R-sided hemiparesis, neurogenic bladder with chronic SPT, stage 4 sacral decubitus ulcer, hx C. difficile colitis, seizure disorder, HTN, HLD, reportedly no urinary output for 8 days prior to admission. Pt presented to ED with abdominal pain. patient with poor response to IVF and required admission to the ICU for pressor support. Septic Shock: Possibly secondary to urinary tract infection and urosepsis Off Levophed support since last evening, blood pressure stable CT abdomen and pelvis showing some evidence of pneumonia, sacral osteomyelitis, pseudo-obstruction of the colon History of CVA: Currently bed-bound, nonverbal with significant contractures Dysphagia Cleared for NDD1 diet; total supervision Aspiration precautions Heme: Chronic anemia, closely monitor H&H, transfuse for hemoglobin less than 7 grams/deciliter Continue home iron supplementation Infectious disease: Evidence of pneumonia, urinary tract infection and sacral osteomyelitis Cultures pending Continue on Zyvox and meropenem given the history of ESBL UTI has watery diarrhea, will send C. diff and start metronidazole-->cdif PCR positive, toxin A/B negative will consult ID Musculoskeletal: Decubitus ulcer prevention protocol has osteomyelitis of sacrum wound care consult pending PAF Resume Xarelto h/o seizure d/o resume keppra HTN Previously on Levophed Blood pressure now high We will resume losartan starting in a.m. BPH resume flomax Chronic pain Resume oxycodone Time Spent With Patient Time: Total time managing care of this patient today ____ minutes.
--- NOTE | 2024-06-30 18:59 | PC.NURSE ---
patient alert, nods yes or no at times, turn and reposition every 2 hours to help skin integrity, constriction to right side, IV antibiotics continue, Cdiff sent, speech evaluation completed, pressors off for over 14hours, transferred to [facility] as ordered.
[2024-06-30] MEDS: Tamsulosin HCL 0.4 MG CAPSULE PO (20:20)
[2024-06-30] MEDS: Psyllium seed 3.7 GM PACKET PO (20:20)
[2024-06-30] MEDS: levETIRAcetam Oral Soln 500 MG/5 ML 250 MG PO (20:20)
[2024-06-30] MEDS: Gabapentin 300 MG CAPSULE PO (20:20)
[2024-07-01] VITALS (7 sets, daily range): BP systolic 117–144; BP diastolic 66–85; PULSE 80–90; RESP 17–18; TEMP 36.1–37.6; O2SAT 97–99; BMI 26.3
[2024-07-01] MEDS: Meropenem 500 MG VIAL IVPUSH ×3 (04:20→20:18)
[2024-07-01] MEDS: metroNIDAZOLE/NS 500 MG/100 ML PIGGYBACK 100 MG IV ×3 (04:23→20:18)
[2024-07-01] MEDS: Linezolid/D5W 600 MG/300 ML PIGGYBACK 300 MG IV ×2 (05:26→16:46)
[2024-07-01 07:34] LABS: Hematocrit 24.2 % (42.0-52.0); Hemoglobin 8.2 g/dl (14.0-18.0); Mean Corpuscular HGB Conc 33.9 g/dl (31.0-36.0); Mean Corpuscular Hemoglobin 32.4 pg (27.0-33.0); Mean Corpuscular Volume 95.7 fL (80.0-98.0); Mean Platelet Volume 9.4 fL (9.4-12.4); Platelet Count 187 X10*3/uL (160-400); Red Blood Count 2.53 X10*6/uL (4.60-5.80); Red Cell Distribution Width 14.4 % (11.0-16.0); White Blood Count 7.1 X10*3/uL (4.8-10.8)
--- NOTE | 2024-07-01 09:22 | P.PNIM_ITS ---
Subjective Subjective Date of Service: 07/01/24 Interval History: Follow up for resistant uti nonverbal, shakes head to answer some questions appears comfortable Physical Exam 2 Vital Signs: Vital Signs: Last Vital Signs Temp 96.9 F 07/01/24 07:07 Pulse 84 07/01/24 07:07 Resp 17 07/01/24 07:07 BP 144/85 H 07/01/24 07:07 Pulse Ox 98 07/01/24 07:07 O2 Del Method Room Air 07/01/24 07:07 BMI result Body Mass Index 26.3 Appearing in no acute distress lung sounds are clear to auscultation heart regular rate rhythm, clear S1, S2 positive bowel sounds, abdomen is soft, nontender neuro patient is alert, nonverbal Objective Data Active Medications Atorvastatin Calcium (Atorvastatin Calcium 80 Mg Tablet) 80 mg PO DAILY [facility] Last Admin: 06/30/24 10:26 Dose: Not Given Documented By: ROSA Non-Admin Reason: Physician Held Med Collagenase (Collagenase Clostridium Hist. 30 Gm Tube) 1 appl TOPICAL DAILY [facility]; Protocol Ferrous Sulfate (Ferrous Sulfate 324 Mg Tablet.) 324 mg PO DAILY [facility] Gabapentin (Gabapentin 300 Mg Capsule) 300 mg PO BEDTIME [facility] Last Admin: 06/30/24 20:20 Dose: 300 mg Documented By: NELI Linezolid (Zyvox/D5w) 600 mg in 300 mls @ 300 mls/hr IV Q12H [facility] Last Infusion: 07/01/24 06:26 Dose: Infused Documented By: PARI Metronidazole (Flagyl) 500 mg in 100 mls @ 100 mls/hr IV Q8H [facility] Last Infusion: 07/01/24 05:23 Dose: Infused Documented By: PARI Levetiracetam (Levetiracetam Oral Soln 500 Mg/5 Ml) 250 mg PO BID [facility] Last Admin: 06/30/24 20:20 Dose: 250 mg Documented By: NELI Losartan Potassium (Losartan Potassium 50 Mg Tablet) 100 mg PO DAILY [facility]; Protocol Meropenem (Meropenem 500 Mg Vial) 500 mg IVPUSH Q8H [facility] Last Admin: 07/01/24 04:20 Dose: 500 mg Documented By: PARI Oxycodone HCl (Oxycodone Hcl Immed Release 5 Mg Tablet) 5 mg PO DAILY PRN PRN Reason: Pain/Wound Management Oxycodone HCl (Oxycodone Hcl Immed Release 5 Mg Tablet) 5 mg PO DAILY [facility] Psyllium Hydrophilic Mucilloid (Psyllium Seed 3.7 Gm Packet) 3.7 gm PO BEDTIME [facility] Last Admin: 06/30/24 20:20 Dose: 3.7 gm Documented By: NELI Rivaroxaban (Rivaroxaban 20 Mg Tablet) 20 mg PO DAILY@1700 [facility] Sodium Chloride (0.9 % Sodium Chloride Flush 3 Ml Syringe) 3 ml IVFLUSH QSHIFT [facility] Last Admin: 06/30/24 21:34 Dose: 3 ml Documented By: PARI Tamsulosin HCl (Tamsulosin Hcl 0.4 Mg Capsule) 0.4 mg PO BEDTIME [facility] Last Admin: 06/30/24 20:20 Dose: 0.4 mg Documented By: NELI Labs 07/01/24 06:27 06/30/24 04:36 Labs: Laboratory Results - last 24 hr 06/30/24 07/01/24 11:30 06:27 MCV 95.7 MCH 32.4 MCHC 33.9 RDW 14.4 Plt Count 187 MPV 9.4 Absolute Nucleated RBC 0.000 Nucleated RBC % (auto) 0.0 C. difficile Tox B Gene POSITIVE A* C. difficile Toxin A&B Negative C. difficile Interpret SEE NOTE Microbiology Microbiology Results: Microbiology 06/29/24 09:40 Blood Culture - Final Blood - Venous Coag negative Staphylococcus 06/29/24 09:35 Blood Culture - Preliminary Blood - Venous No growth after 24 hours. 06/29/24 Unknown Urine Culture - Final Urine Other - Suprapubic 06/29/24 Unknown Urine Culture - Preliminary Urine Other - Nephrostomy Culture in progress. Assessment and Plan (1) Dysphagia: Status: Acute Plan 68yo male who is LTC resident of [facility], nonverbal with history of vascular dementia, CVA with R-sided hemiparesis, neurogenic bladder with chronic SPT, stage 4 sacral decubitus ulcer, hx C. difficile colitis, seizure disorder, HTN, HLD, reportedly no urinary output for 8 days prior to admission. Pt presented to ED with abdominal pain. patient with poor response to IVF and required admission to the ICU for pressor support. Evidence of pneumonia continue meropenem Urinary tract infection Hx of ESBL on meropenem cx coag neg staph 1/2 Continue on Zyvox and meropenem given the history of ESBL UTI Sacral osteomyelitis Seen on Abd CT Zyvox ID consult pending Septic Shock Possibly secondary to urinary tract infection and urosepsis s/p Levophed, blood pressure stable CT abdomen and pelvis showing some evidence of pneumonia, sacral osteomyelitis, pseudo-obstruction of the colon Blood cx coag neg staph Cdiff rima has watery diarrhea, continue metronidazole>cdif PCR positive, toxin A/B negative will consult ID flagyl History of CVA Currently bed-bound nonverbal with significant contractures Dysphagia Cleared for NDD1 diet; total supervision Aspiration precautions Hem Chronic anemia, closely monitor H&H transfuse for hemoglobin less than 7 grams/deciliter Continue home iron supplementation Musculoskeletal Decubitus ulcer prevention protocol has osteomyelitis of sacrum wound care consult pending PAF Resume Xarelto h/o seizure d/o resume keppra HTN Previously on Levophed Blood pressure now high We will resume losartan starting in a.m. BPH resume flomax Chronic pain Resume oxycodone DVT prophylaxis with xarelto Quality Stroke Does the patient have a stroke diagnosis?: No VTE Prior VTE?: No VTE Risk Level:: Medical - moderate - high VTE Device Contraindication: N/A - Device Ordered VTE Drug Contraindication: N/A - Med Ordered
[2024-07-01] MEDS: Atorvastatin Calcium 80 MG TABLET PO (09:37)
[2024-07-01] MEDS: Losartan Potassium 50 MG TABLET 100 MG PO (09:37)
[2024-07-01] MEDS: Ferrous Sulfate 324 MG TABLET.DR PO (09:38)
[2024-07-01] MEDS: oxyCODONE HCl Immed Release 5 MG TABLET PO (09:38)
[2024-07-01] MEDS: levETIRAcetam Oral Soln 500 MG/5 ML 250 MG PO ×2 (09:41→20:18)
[2024-07-01] MEDS: 0.9 % Sodium Chloride Flush 3 ML SYRINGE IVFLUSH ×3 (09:42→20:19)
[2024-07-01] MEDS: Collagenase Clostridium Hist. 30 GM TUBE 1 APPL TOPICAL (12:59)
[2024-07-01 13:43] LABS: Anion Gap 12 (12-20); Blood Urea Nitrogen 26 mg/dL (9-16); Carbon Dioxide 19 mmol/L (22-29); Chloride 114 mmol/L (96-108); Creatinine Clr Calc Pharmacy 53.1; Estimated Glomerular Filt Rate > 60; Glucose Random 173 mg/dL (60-115); Potassium 2.8 mmol/L (3.3-5.1); Sodium 142 mmol/L (135-145)
--- NOTE | 2024-07-01 14:00 | PC.NURSE ---
Dressing to R buttock and sacrum changed, patient resistive to repositioning.
[2024-07-01] MEDS: Potassium Chloride/H20 10 MEQ/100 ML PIGGYBACK 100 MEQ IV ×2 (14:28→15:30)
[2024-07-01] MEDS: Rivaroxaban 20 MG TABLET PO (17:47)
[2024-07-01] MEDS: Tamsulosin HCL 0.4 MG CAPSULE PO (20:19)
[2024-07-01] MEDS: Gabapentin 300 MG CAPSULE PO (20:19)
[2024-07-01] MEDS: Psyllium seed 3.7 GM PACKET PO (20:19)
[2024-07-02 03:01] VITALS: BP 117/57; PULSE 64; RESP 18; TEMP 36.8; O2SAT 98
[2024-07-02] MEDS: metroNIDAZOLE/NS 500 MG/100 ML PIGGYBACK 100 MG IV ×3 (03:50→22:15)
[2024-07-02] MEDS: Meropenem 500 MG VIAL IVPUSH ×3 (03:54→21:14)
[2024-07-02] MEDS: Linezolid/D5W 600 MG/300 ML PIGGYBACK 300 MG IV ×2 (05:23→17:31)
[2024-07-02 05:34] VITALS: BMI 28.2
[2024-07-02 07:13] VITALS: BP 129/79; PULSE 73; RESP 18; TEMP 36.4; O2SAT 98
[2024-07-02 08:35] LABS: Anion Gap 10 (12-20); Blood Urea Nitrogen 23 mg/dL (9-16); Carbon Dioxide 21 mmol/L (22-29); Chloride 114 mmol/L (96-108); Creatinine Clr Calc Pharmacy 62.3; Estimated Glomerular Filt Rate > 60; Glucose Random 125 mg/dL (60-115); Sodium 142 mmol/L (135-145)
[2024-07-02 08:58] LABS: Potassium 2.7 mmol/L (3.3-5.1)
[2024-07-02] MEDS: Atorvastatin Calcium 80 MG TABLET PO (09:25)
[2024-07-02] MEDS: levETIRAcetam Oral Soln 500 MG/5 ML 250 MG PO ×2 (09:25→20:05)
[2024-07-02] MEDS: Losartan Potassium 50 MG TABLET 100 MG PO (09:25)
[2024-07-02] MEDS: Ferrous Sulfate 324 MG TABLET.DR PO (09:26)
[2024-07-02] MEDS: oxyCODONE HCl Immed Release 5 MG TABLET PO (09:26)
[2024-07-02] MEDS: Collagenase Clostridium Hist. 30 GM TUBE 1 APPL TOPICAL (09:26)
[2024-07-02 11:02] VITALS: BP 135/79; PULSE 79; RESP 18; TEMP 36.1; O2SAT 98
--- NOTE | 2024-07-02 11:41 | HO.PM.IMPN ---
Subjective Subjective Date of Service: 07/02/24 Interval History: Follow up for resistant uti nonverbal, shakes head to answer some questions appears comfortable Physical Exam Vital Signs: Vital Signs: Last Vital Signs Temp 96.9 F 07/02/24 11:02 Pulse 79 07/02/24 11:02 Resp 18 07/02/24 11:02 BP 135/79 07/02/24 11:02 Pulse Ox 98 07/02/24 11:02 O2 Del Method Room Air 07/02/24 11:02 BMI result Body Mass Index 28.2 Appearing in no acute distress lung sounds are clear to auscultation heart regular rate rhythm, clear S1, S2 positive bowel sounds, abdomen is soft, nontender neuro patient is alert, nonverbal Objective Data Active Medications Atorvastatin Calcium (Atorvastatin Calcium 80 Mg Tablet) 80 mg PO DAILY [facility] Last Admin: 07/02/24 09:25 Dose: 80 mg Documented By: JIM Collagenase (Collagenase Clostridium Hist. 30 Gm Tube) 1 appl TOPICAL DAILY [facility]; Protocol Last Admin: 07/02/24 09:26 Dose: 1 appl Documented By: JIM Ferrous Sulfate (Ferrous Sulfate 324 Mg Tablet.Dr) 324 mg PO DAILY [facility] Last Admin: 07/02/24 09:26 Dose: 324 mg Documented By: JIM Gabapentin (Gabapentin 300 Mg Capsule) 300 mg PO BEDTIME [facility] Last Admin: 07/01/24 20:19 Dose: 300 mg Documented By: STELLA Linezolid (Zyvox/D5w) 600 mg in 300 mls @ 300 mls/hr IV Q12H [facility] Last Infusion: 07/02/24 07:15 Dose: Infused Documented By: JIM Metronidazole (Flagyl) 500 mg in 100 mls @ 100 mls/hr IV Q8H [facility] Last Infusion: 07/02/24 05:24 Dose: Infused Documented By: STELLA Levetiracetam (Levetiracetam Oral Soln 500 Mg/5 Ml) 250 mg PO BID [facility] Last Admin: 07/02/24 09:25 Dose: 250 mg Documented By: JIM Losartan Potassium (Losartan Potassium 50 Mg Tablet) 100 mg PO DAILY [facility]; Protocol Last Admin: 07/02/24 09:25 Dose: 100 mg Documented By: JIM Meropenem (Meropenem 500 Mg Vial) 500 mg IVPUSH Q8H [facility] Last Admin: 07/02/24 03:54 Dose: 500 mg Documented By: STELLA Oxycodone HCl (Oxycodone Hcl Immed Release 5 Mg Tablet) 5 mg PO DAILY PRN PRN Reason: Pain/Wound Management Oxycodone HCl (Oxycodone Hcl Immed Release 5 Mg Tablet) 5 mg PO DAILY [facility] Last Admin: 07/02/24 09:26 Dose: 5 mg Documented By: JIM Psyllium Hydrophilic Mucilloid (Psyllium Seed 3.7 Gm Packet) 3.7 gm PO BEDTIME [facility] Last Admin: 07/01/24 20:19 Dose: 3.7 gm Documented By: STELLA Rivaroxaban (Rivaroxaban 20 Mg Tablet) 20 mg PO DAILY@1700 [facility] Last Admin: 07/01/24 17:47 Dose: 20 mg Documented By: JIM Sodium Chloride (0.9 % Sodium Chloride Flush 3 Ml Syringe) 3 ml IVFLUSH QSHIFT [facility] Last Admin: 07/02/24 08:20 Dose: Not Given Documented By: JIM Non-Admin Reason: IV Running Tamsulosin HCl (Tamsulosin Hcl 0.4 Mg Capsule) 0.4 mg PO BEDTIME [facility] Last Admin: 07/01/24 20:19 Dose: 0.4 mg Documented By: STELLA Labs 07/01/24 06:27 07/02/24 08:00 Labs: Laboratory Results - last 24 hr 07/01/24 07/02/24 06:27 08:00 Hold Purple Top SEE NOTE Anion Gap 12 10 L Estim Creat Clear Calc 53.1 62.3 Estimated GFR > 60 > 60 Random Glucose 173 H 125 H Calcium 8.0 L 8.0 L Microbiology Microbiology Results: Microbiology 06/29/24 09:35 Blood Culture - Preliminary Blood - Venous No growth after 48 hours. 06/29/24 Unknown Urine Culture - Final Urine Other - Nephrostomy 06/29/24 09:40 Blood Culture - Final Blood - Venous Coag negative Staphylococcus Assessment and Plan (1) Dysphagia: Status: Acute Plan 68yo male who is LTC resident of [facility], nonverbal with history of vascular dementia, CVA with R-sided hemiparesis, neurogenic bladder with chronic SPT, stage 4 sacral decubitus ulcer, hx C. difficile colitis, seizure disorder, HTN, HLD, reportedly no urinary output for 8 days prior to admission. Pt presented to ED with abdominal pain. patient with poor response to IVF and required admission to the ICU for pressor support. Evidence of pneumonia continue meropenem Urinary tract infection Hx of ESBL on meropenem cx coag neg staph 1/2 Continue on Zyvox and meropenem given the history of ESBL UTI Sacral osteomyelitis Seen on Abd CT Zyvox ID consult pending picc line Septic Shock Possibly secondary to urinary tract infection and urosepsis s/p Levophed, blood pressure stable CT abdomen and pelvis showing some evidence of pneumonia, sacral osteomyelitis, pseudo-obstruction of the colon Blood cx coag neg staph Cdiff diarhea has watery diarrhea, continue metronidazole>cdif PCR positive, toxin A/B negative will consult ID flagyl History of CVA Currently bed-bound nonverbal with significant contractures Dysphagia Cleared for NDD1 diet; total supervision Aspiration precautions Hem Chronic anemia, closely monitor H&H transfuse for hemoglobin less than 7 grams/deciliter Continue home iron supplementation Musculoskeletal Decubitus ulcer prevention protocol has osteomyelitis of sacrum wound care consult pending PAF Resume Xarelto h/o seizure d/o resume keppra HTN Previously on Levophed Blood pressure now high We will resume losartan starting in a.m. BPH resume flomax Chronic pain Resume oxycodone DVT prophylaxis with xarelto Quality Stroke Does the patient have a stroke diagnosis?: No VTE Prior VTE?: No VTE Risk Level:: Medical - moderate - high VTE Device Contraindication: N/A - Device Ordered VTE Drug Contraindication: N/A - Med Ordered
[2024-07-02 15:22] VITALS: BP 112/69; PULSE 75; RESP 19; TEMP 36.3; O2SAT 98
[2024-07-02] MEDS: 0.9 % Sodium Chloride Flush 3 ML SYRINGE IVFLUSH ×2 (17:31→20:11)
[2024-07-02] MEDS: Rivaroxaban 20 MG TABLET PO (17:31)
[2024-07-02 19:53] VITALS: BP 119/72; PULSE 69; RESP 20; TEMP 36.9; O2SAT 97
[2024-07-02] MEDS: Gabapentin 300 MG CAPSULE PO (20:05)
[2024-07-02] MEDS: Psyllium seed 3.7 GM PACKET PO (20:05)
[2024-07-02] MEDS: Tamsulosin HCL 0.4 MG CAPSULE PO (20:05)
[2024-07-02] MEDS: Potassium Chloride/H20 10 MEQ/100 ML PIGGYBACK 100 MEQ IV ×2 (20:09→21:14)
[2024-07-02 23:44] VITALS: BP 118/70; PULSE 84; RESP 20; TEMP 36.3; O2SAT 98
[2024-07-03] MEDS: metroNIDAZOLE/NS 500 MG/100 ML PIGGYBACK 100 MG IV ×3 (03:03→21:09)
[2024-07-03] MEDS: Meropenem 500 MG VIAL IVPUSH ×2 (03:03→12:03)
[2024-07-03 04:00] VITALS: BP 121/71; PULSE 85; RESP 20; TEMP 36.9; O2SAT 98
[2024-07-03] MEDS: Linezolid/D5W 600 MG/300 ML PIGGYBACK 300 MG IV ×2 (05:24→17:08)
[2024-07-03 06:00] VITALS: BMI 29.3
[2024-07-03] MEDS: 0.9 % Sodium Chloride Flush 3 ML SYRINGE IVFLUSH ×2 (07:18→16:57)
[2024-07-03 07:27] VITALS: BP 135/74; PULSE 77; RESP 20; TEMP 36.4; O2SAT 97
--- NOTE | 2024-07-03 08:32 | HO.PM.IMPN ---
Subjective Subjective Date of Service: 07/03/24 Interval History: Follow up for resistant uti nonverbal, shakes head to answer some questions appears comfortable Physical Exam Vital Signs: Vital Signs: Last Vital Signs Temp 97.6 F 07/03/24 07:27 Pulse 77 07/03/24 07:27 Resp 20 07/03/24 07:27 BP 135/74 07/03/24 07:27 Pulse Ox 97 07/03/24 07:27 O2 Del Method Room Air 07/03/24 07:27 BMI result Body Mass Index 29.3 Appearing in no acute distress, nonverbal lung sounds are clear to auscultation heart regular rate rhythm, clear S1, S2 positive bowel sounds, abdomen is soft, nontender neuro patient is alert x3, no focal deficits Objective Data Active Medications Atorvastatin Calcium (Atorvastatin Calcium 80 Mg Tablet) 80 mg PO DAILY [facility] Last Admin: 07/02/24 09:25 Dose: 80 mg Documented By: JIM Collagenase (Collagenase Clostridium Hist. 30 Gm Tube) 1 appl TOPICAL DAILY [facility]; Protocol Last Admin: 07/02/24 09:26 Dose: 1 appl Documented By: JIM Ferrous Sulfate (Ferrous Sulfate 324 Mg Tablet.Dr) 324 mg PO DAILY [facility] Last Admin: 07/02/24 09:26 Dose: 324 mg Documented By: JIM Gabapentin (Gabapentin 300 Mg Capsule) 300 mg PO BEDTIME [facility] Last Admin: 07/02/24 20:05 Dose: 300 mg Documented By: JARAD Linezolid (Zyvox/D5w) 600 mg in 300 mls @ 300 mls/hr IV Q12H [facility] Last Infusion: 07/03/24 06:25 Dose: Infused Documented By: BRITTANY Metronidazole (Flagyl) 500 mg in 100 mls @ 100 mls/hr IV Q8H [facility] Last Infusion: 07/03/24 04:05 Dose: Infused Documented By: BRITTANY Levetiracetam (Levetiracetam Oral Soln 500 Mg/5 Ml) 250 mg PO BID [facility] Last Admin: 07/02/24 20:05 Dose: 250 mg Documented By: JARAD Losartan Potassium (Losartan Potassium 50 Mg Tablet) 100 mg PO DAILY [facility]; Protocol Last Admin: 07/02/24 09:25 Dose: 100 mg Documented By: JIM Meropenem (Meropenem 500 Mg Vial) 500 mg IVPUSH Q8H [facility] Last Admin: 07/03/24 03:03 Dose: 500 mg Documented By: JARAD Oxycodone HCl (Oxycodone Hcl Immed Release 5 Mg Tablet) 5 mg PO DAILY PRN PRN Reason: Pain/Wound Management Oxycodone HCl (Oxycodone Hcl Immed Release 5 Mg Tablet) 5 mg PO DAILY [facility] Last Admin: 07/02/24 09:26 Dose: 5 mg Documented By: JIM Psyllium Hydrophilic Mucilloid (Psyllium Seed 3.7 Gm Packet) 3.7 gm PO BEDTIME [facility] Last Admin: 07/02/24 20:05 Dose: 3.7 gm Documented By: JARAD Rivaroxaban (Rivaroxaban 20 Mg Tablet) 20 mg PO DAILY@1700 [facility] Last Admin: 07/02/24 17:31 Dose: 20 mg Documented By: JIM Sodium Chloride (0.9 % Sodium Chloride Flush 3 Ml Syringe) 3 ml IVFLUSH QSHIFT [facility] Last Admin: 07/03/24 07:18 Dose: 3 ml Documented By: DAVID Tamsulosin HCl (Tamsulosin Hcl 0.4 Mg Capsule) 0.4 mg PO BEDTIME [facility] Last Admin: 07/02/24 20:05 Dose: 0.4 mg Documented By: JARAD Labs 07/01/24 06:27 07/03/24 08:07 Labs: Laboratory Results - last 24 hr 07/02/24 08:00 Anion Gap 10 L Estim Creat Clear Calc 62.3 Estimated GFR > 60 Random Glucose 125 H Calcium 8.0 L Assessment and Plan (1) Dysphagia: Status: Acute Plan 68yo male who is LTC resident of [facility], nonverbal with history of vascular dementia, CVA with R-sided hemiparesis, neurogenic bladder with chronic SPT, stage 4 sacral decubitus ulcer, hx C. difficile colitis, seizure disorder, HTN, HLD, reportedly no urinary output for 8 days prior to admission. Pt presented to ED with abdominal pain. patient with poor response to IVF and required admission to the ICU for pressor support. 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, both present on admission Seen on Abd CT Zyvox ID consult pending picc line Wound care Frequent repositioning Septic Shock Possibly secondary to urinary tract infection and urosepsis s/p Levophed, blood pressure stable CT abdomen and pelvis showing some evidence of pneumonia, sacral osteomyelitis, pseudo-obstruction of the colon Blood cx coag neg staph Cdiff rima has watery diarrhea, continue metronidazole>cdif PCR positive, toxin A/B negative will consult ID flagyl History of CVA Currently bed-bound nonverbal with significant contractures Dysphagia Cleared for NDD1 diet; total supervision Aspiration precautions Hem Chronic anemia, closely monitor H&H transfuse for hemoglobin less than 7 grams/deciliter Continue home iron supplementation Musculoskeletal Decubitus ulcer prevention protocol has osteomyelitis of sacrum wound care consult pending PAF Resume Xarelto h/o seizure d/o resume keppra HTN Previously on Levophed Blood pressure now high We will resume losartan starting in a.m. BPH resume flomax Chronic pain Resume oxycodone DVT prophylaxis with xarelto Quality Stroke Does the patient have a stroke diagnosis?: No VTE Prior VTE?: No VTE Risk Level:: Medical - moderate - high VTE Device Contraindication: N/A - Device Ordered VTE Drug Contraindication: N/A - Med Ordered
[2024-07-03 08:46] LABS: Blood Urea Nitrogen 21 mg/dL (9-16); Calcium 8.1 mg/dL (8.4-10.2); Creatinine Clr Calc Pharmacy 61.7; Estimated Glomerular Filt Rate > 60; Glucose Random 124 mg/dL (60-115)
[2024-07-03 08:56] LABS: Anion Gap 10 (12-20); Carbon Dioxide 23 mmol/L (22-29); Chloride 111 mmol/L (96-108); Sodium 141 mmol/L (135-145)
[2024-07-03 09:02] LABS: Potassium 2.7 mmol/L (3.3-5.1)
[2024-07-03] MEDS: levETIRAcetam Oral Soln 500 MG/5 ML 250 MG PO ×2 (09:10→21:11)
[2024-07-03] MEDS: Atorvastatin Calcium 80 MG TABLET PO (09:10)
[2024-07-03] MEDS: oxyCODONE HCl Immed Release 5 MG TABLET PO (09:11)
[2024-07-03] MEDS: Potassium Chloride Packet 20 MEQ PACKET 40 MEQ PO ×2 (09:12→21:10)
[2024-07-03] MEDS: Losartan Potassium 50 MG TABLET 100 MG PO (09:12)
[2024-07-03] MEDS: Potassium Chloride/H20 10 MEQ/100 ML PIGGYBACK 100 MEQ IV ×2 (09:14→10:34)
--- NOTE | 2024-07-03 10:54 | MHC.CM.PN ---
Per ROUNDS discussion, Patient is not yet medically cleared for dc (pending wound care & ID); returning to LTC is the plan and CM will continue to follow.
[2024-07-03] MEDS: Collagenase Clostridium Hist. 30 GM TUBE 1 APPL TOPICAL (11:17)
--- NOTE | 2024-07-03 11:24 | HO.WOUND ---
Wound Consult: Initial 68yr old? [place] [facility] [place] - See progress notes and H&P for detailed history.? Wound consult placed for Sacrum, right ischium and right great toe.? Patient agreeable to assessment and photo documentation.? Patient is nonverbal at baseline. Sacrum Etiology: ?Chronic Stage 4 Pressure Injury ?Present on Admission Measurements: see charting for detailed - smaller than last admission Wound Bed: red pink moist tissue Drainage / Odor: serosang - macerated edges - no odor Edges: ? macerated Anshul wound: pink scar tissue noted - dark red marooon nonblanchable tissue noted in surroudning areas ? No Induration, Fluctuance or Warmth noted Goals of Treatment: ? durafiber Ag for moisture management Right Ischium Etiology: Stage 4 Pressure Injury ??Present on Admission Measurements: see charting for detailed mesurement Wound Bed: marbled wound bed with dark red deeper tissue with some slough noted Drainage / Odor: serosang drainage - no odor noted Edges: ? unattached Anshul wound: red pink maroon purple wound edges ? No Induration, Fluctuance or Warmth noted Goals of Treatment: ? Santyl orders from provider will allow for continued enzymatic debridement then may transition to Aliginate / Hydrofiber such as Durafiber AG Right Great Toe - Tip Etiology: DTI ??Present on Admission Wound Bed: intact nonblanchable dark purple tissue Drainage / Odor: None Edges: ? attached Anshul wound: Intact dry thickened flaking tissue ? No Induration, Fluctuance or Warmth noted Goals of Treatment: ? continue to protect from pressure and trauma - continue with heel boot protectors. Recommendations: 1. Turn and Reposition every 2 hours and as needed for patient comfort.? Use pillows or wedges to support off loading positions. 2. Off Load all bony prominences with use of pillows and heel boots if needed.? Apply Preventative foams where needed. ? 3. Monitor for incontinence and moisture control, use barrier creams when needed for prevention and treatment. 4. Provide adequate and supplemental nutrition.? 5. Continue low air loss mattress. 6. When applicable maintain blood glucose levels per Providers order. Sacrum ? Off Load Pressure with Q2 hr turns and use of pillows Cleanse and irrigate with NS, Pat dry.? Apply barrier to periwound, lightly pack with Durafiber AG, be sure to leave a wick to easy removal.? Cover with Foam dressing.? Change every other day. Right Ischium - Off Load Pressure with Q2 hr turns and use of pillows Cleanse with normal saline, pat dry. ?Apply barrier to the immediate anshul wound, apply thick layer of Santyl to dry gauze and lightly pack into wound bed, cover with dry gauze, ABD pad and gauze wrap, change Daily. Right Great Toe - Apply Skin prep allow to dry. Continue use of heel boot protector. Re-consult wound care Nurse for wound deterioration or wound changes.
[2024-07-03 11:36] VITALS: BP 124/58; PULSE 88; RESP 20; TEMP 36.7; O2SAT 97
--- NOTE | 2024-07-03 11:51 | PC.NURSE ---
Awake ,Nonverbal , spring tier present at the bedside to explain plan of care, assess pt's comfort . No verbal response , pt calm ,eyes open
--- NOTE | 2024-07-03 13:45 | MHC.CLN ---
F/U PT WITH INCREASED NUTRITION RISK R/T PRESSURE INJURY PO INTAKE 25-50% DIET RX; PUREED WITH HT LIQ RECOMMEND ADDING ENSURE TID TO PROMOTE WOUND HEALING SUPP TO PROVIDE 1050KCALS, 60G PROTEIN MONITOR PO INTAKE AND ENCOURAGE SUPPLEMENTS
--- NOTE | 2024-07-03 14:23 | MHC.SLORD ---
Speech Language Pathology Order Status: RN consulted, pt remains on NDD1 with HTL (baseline diet) but PO intake is generally reduced. Pt not seen today, MAINFRAME CONSULTANT to follow up tomorrow. No changes to baseline diet consistencies anticipated.
--- NOTE | 2024-07-03 14:23 | W.PM.IDCN ---
History of Present Illness Data of Consult Service Date: 07/03/24 Requesting physician: Taylor Ventura Primary Care Provider: Lorraine Wiley MD [facility] Reason for consult: OM concern sacrum He presents with weakness and found to have some breakdown sacral area over wound. CT scan possible early OM He had prior septic shock in April. Review of Systems Review of Systems: Yes all other systems are reviewed and are negative PMFSH Past Medical History Medical History 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 Mother No problems noted. Family history: reviewed and not pertinent Surgical History Surgical History No pertinent past surgical history Social History Social History Household Members: None and Other Household Members Other:: SNF Housing: Senior Living Are you a primary patient care director to a significant other at home: No Do you presently have visiting nurse or other home services: Yes Unable to assess alcohol history related to: Unable to respond Alcohol intake: former Comment: patient sleeping Patient Tobacco Use Status: Tobacco use Unknown Second Hand Smoke Exposure: No Use of substances other than those prescribed or required for medical reasons: Unable to respond Currently Displaying Signs/Symptoms of Drug Intoxication Withdrawal: No Advance Directives: Yes Advance Directives on File: Yes Advance Directives Date on File: 02/14/20 Recently lost weight without trying: Unsure Nutrition Risks: No Nutritional Risk service: No Current occupational status: disabled Meds Allergies Allergy/AdvReac Type Severity Reaction Status Date / Time No Known Allergies Allergy Verified 06/29/24 10:01 [No Known Allergies*] Active Medications: Current Medications Atorvastatin Calcium (Atorvastatin Calcium 80 Mg Tablet) 80 mg PO DAILY [facility] Last Admin: 07/03/24 09:10 Dose: 80 mg Collagenase (Collagenase Clostridium Hist. 30 Gm Tube) 1 appl TOPICAL DAILY [facility]; Protocol Last Admin: 07/03/24 11:17 Dose: 1 appl Ferrous Sulfate (Ferrous Sulfate 324 Mg Tablet.Dr) 324 mg PO DAILY [facility] Last Admin: 07/03/24 09:14 Dose: Not Given Gabapentin (Gabapentin 300 Mg Capsule) 300 mg PO BEDTIME [facility] Last Admin: 07/02/24 20:05 Dose: 300 mg Linezolid (Zyvox/D5w) 600 mg in 300 mls @ 300 mls/hr IV Q12H [facility] Last Infusion: 07/03/24 06:25 Dose: Infused Metronidazole (Flagyl) 500 mg in 100 mls @ 100 mls/hr IV Q8H [facility] Last Admin: 07/03/24 12:06 Dose: 100 mls/hr Levetiracetam (Levetiracetam Oral Soln 500 Mg/5 Ml) 250 mg PO BID [facility] Last Admin: 07/03/24 09:10 Dose: 250 mg Losartan Potassium (Losartan Potassium 50 Mg Tablet) 100 mg PO DAILY [facility]; Protocol Last Admin: 07/03/24 09:12 Dose: 100 mg Meropenem (Meropenem 1 Gm Vial) 1 gm IVPUSH Q8H [facility] Oxycodone HCl (Oxycodone Hcl Immed Release 5 Mg Tablet) 5 mg PO DAILY PRN PRN Reason: Pain/Wound Management Oxycodone HCl (Oxycodone Hcl Immed Release 5 Mg Tablet) 5 mg PO DAILY [facility] Last Admin: 07/03/24 09:11 Dose: 5 mg Potassium Chloride (Potassium Chloride Packet 20 Meq Packet) 40 meq PO BID [facility] Last Admin: 07/03/24 09:12 Dose: 40 meq Psyllium Hydrophilic Mucilloid (Psyllium Seed 3.7 Gm Packet) 3.7 gm PO BEDTIME [facility] Last Admin: 07/02/24 20:05 Dose: 3.7 gm Rivaroxaban (Rivaroxaban 20 Mg Tablet) 20 mg PO DAILY@1700 [facility] Last Admin: 07/02/24 17:31 Dose: 20 mg Sodium Chloride (0.9 % Sodium Chloride Flush 3 Ml Syringe) 3 ml IVFLUSH QSHIFT [facility] Last Admin: 07/03/24 07:18 Dose: 3 ml Tamsulosin HCl (Tamsulosin Hcl 0.4 Mg Capsule) 0.4 mg PO BEDTIME [facility] Last Admin: 07/02/24 20:05 Dose: 0.4 mg Home Medications ?Medication ?Instructions ?Recorded ?Confirmed ?Last Taken ?Type acetaminophen 325 mg tablet 650 mg PO Q4H PRN fever/pain 02/16/21 06/29/24 Unknown History bisacodyl 10 mg rectal suppository 10 mg IN DAILY PRN If no BM in 8 02/16/21 06/29/24 Unknown History hours after use of MoM calcium 600 mg (as 1 tab PO BID 02/16/21 06/29/24 02/14/22 History carbonate)-vitamin D3 5 mcg (200 unit) tablet magnesium hydroxide 400 mg/5 mL 30 ml PO DAILY PRN No BM in 3 Days 02/16/21 06/29/24 Unknown History oral suspension (Milk of Magnesia) levetiracetam 100 mg/mL oral 2.5 ml PO BID 02/26/21 06/29/24 02/14/22 History solution atorvastatin 80 mg tablet 80 mg PO DAILY 01/26/22 06/29/24 02/14/22 History rivaroxaban 20 mg tablet (Xarelto) 20 mg PO DAILY@1700 01/26/22 06/29/24 02/14/22 History magnesium citrate 150 ml PO DAILY PRN No BM in 12 hrs 02/15/22 06/29/24 Unknown History sodium phosphates 19 gram-7 118 ml IN DAILY PRN If no BM in 8 02/15/22 06/29/24 Unknown History gram/118 mL enema (Fleet Enema) hours after use of Bisacodyl acetaminophen 325 mg tablet 650 mg PO BEDTIME 10/03/22 06/29/24 Unknown History (Tylenol) acetic acid 0.25 % irrigation 50 ml irrigation TUTHSA@2100 10/03/22 06/29/24 Unknown History solution ferrous sulfate 325 mg (65 mg 325 mg PO DAILY 12/22/22 06/29/24 Unknown History iron) tablet multivitamin 1 tab PO DAILY 01/18/24 06/29/24 Unknown History psyllium 1 ea PO BEDTIME 01/18/24 06/29/24 Unknown History sodium hypochlorite 0.125 % 1 appl topical BEDTIME 01/18/24 06/29/24 Unknown History solution oxycodone 5 mg tablet 5 mg PO DAILY PRN Pain/Wound 04/19/24 06/29/24 Unknown History Management potassium chloride 20 mEq/15 mL 30 meq PO BID 04/19/24 06/29/24 Unknown History oral liquid simethicone 80 mg chewable tablet 80 mg PO Q6H PRN Abdominal 04/19/24 06/29/24 Unknown History Distention collagenase clostridium histo. 250 1 appl topical DAILY 06/29/24 06/29/24 Unknown History unit/gram topical ointment (Santyl) oxycodone 5 mg tablet 5 mg PO DAILY 06/29/24 06/29/24 Unknown History Physical Exam Vital Signs: Vital Signs: Last Vital Signs Temp 98.1 F 07/03/24 11:36 Pulse 88 07/03/24 11:36 Resp 20 07/03/24 11:36 BP 124/58 L 07/03/24 11:36 Pulse Ox 97 07/03/24 11:36 O2 Del Method Room Air 07/03/24 11:36 BMI result Body Mass Index 29.3 Const: General: cooperative HEENT: Head: Yes normal to inspection Face and sinus: Yes normal facial exam Mouth: Normal oral and palatal mucosa present Teeth and gingiva: dentition normal Eyes: General: appearance normal, both eyes and all related structures Pupils: Equal, round and reactive pupils present Resp: Effort & Inspection: normal respiratory effort Cardio: Rate: regular rate Rhythm: regular rhythm GI: Palpation (GI): Soft to palpation and nontender : General: Yes no CVA tenderness Back/Spine/Pelvis: Back: no CVA tenderness Skin: General skin exam: no rashes or lesions noted Neuro: General: moves all extremities Cranial nerves: Yes Equal, round and reactive pupils present Extrem: Other: some breakdown skin sacrum Psych: Appearance: grossly normal Results Labs 07/01/24 06:27 07/03/24 08:07 Labs: BMP 07/03/24 08:07 Sodium 141 Potassium 2.7 L* Chloride 111 H Carbon Dioxide 23 BUN 21 H Creatinine 1.10 Calcium 8.1 L Microbiology Microbiology Results: Microbiology 06/29/24 09:35 Blood - Venous Blood Culture - Preliminary No growth after 48 hours. 06/29/24 Unknown Urine Other - Nephrostomy Urine Culture - Final 06/29/24 09:40 Blood - Venous Blood Culture - Final Coag negative Staphylococcus 06/29/24 Unknown Urine Other - Suprapubic Urine Culture - Final Assessment and Plan (1) Stage 4 pressure ulcer: Status: Acute Plan Would give po linezolid 600 bid for four weeks. Po vancomycin 125 qid for duration therapy and 48 hours after. Wound Clinic If not improving and sealed needs bone biopsy and six weeks IV Vancomycin and Ertapenem.
[2024-07-03 15:08] VITALS: BP 117/65; PULSE 97; RESP 17; TEMP 36.4; O2SAT 97
--- NOTE | 2024-07-03 16:25 | P.CDIM_ITS ---
PROVIDER RESPONSE TEXT: To clarify, the appropriate diagnosis supported by the clinical indicators: Acute osteomyelitis sacrum QUERY TEXT: PHYSICIAN'S DOCUMENTATION REQUEST Date of Query: 07/03/2024 10:47 AM EDT Patient Name: Wyatt Castillo Admit Date: 06/29/2024 Dear Taylor Ventura MECHANIC FIELD SERVICE, A review of the medical record indicates additional documentation may be needed. Please review below and update the documentation accordingly. Clinical Indicators: Progress notes 06/29 - 07/02 within the Plan - Sacral osteomyelitis Zyvox PICC line CT abdomen and pelvis showing some evidence of pneumonia, sacral osteomyelitis. Based on the above, please clarify in the Progress Notes further specificity the acuity of the docume nted Osteomyelitis. Acute osteomyelitis sacrum Subacute osteomyelitis Chronic osteomyelitis Chronic multifocal osteomyelitis Other (explain) Clinically unable to determine (explain) Thank you, Shaye Middleton, CCS, CDIS Use of terms such as suspected, likely, concern for, or probable (associated with a specific diagnosi s that is being evaluated, monitored, or treated as if it exists) are acceptable and can be coded in the inpatient se tting, when documented at the time of discharge. Please use your independent medical judgment in providing your response. THIS QUERY IS PART OF THE PERMANENT MEDICAL RECORD
[2024-07-03] MEDS: Rivaroxaban 20 MG TABLET PO (16:57)
[2024-07-03 19:37] VITALS: BP 112/75; PULSE 75; RESP 18; TEMP 36.6; O2SAT 96
[2024-07-03] MEDS: Meropenem 1 GM VIAL IVPUSH (21:09)
[2024-07-03] MEDS: Psyllium seed 3.7 GM PACKET PO (21:10)
[2024-07-03] MEDS: Tamsulosin HCL 0.4 MG CAPSULE PO (21:11)
[2024-07-03] MEDS: Gabapentin 300 MG CAPSULE PO (21:11)
[2024-07-03 23:00] VITALS: BP 115/70; PULSE 85; RESP 18; TEMP 36.2; O2SAT 97
[2024-07-04] MEDS: metroNIDAZOLE/NS 500 MG/100 ML PIGGYBACK 100 MG IV (03:12)
[2024-07-04] MEDS: Meropenem 1 GM VIAL IVPUSH (03:12)
[2024-07-04 03:26] VITALS: BP 108/62; PULSE 75; RESP 18; TEMP 36.4; O2SAT 98
[2024-07-04] MEDS: Linezolid/D5W 600 MG/300 ML PIGGYBACK 300 MG IV ×2 (04:42→16:16)
[2024-07-04 05:55] VITALS: BMI 26.5
[2024-07-04 07:20] VITALS: BP 109/62; PULSE 66; RESP 16; TEMP 36.5; O2SAT 98
[2024-07-04 08:45] VITALS: BP 109/62
[2024-07-04] MEDS: oxyCODONE HCl Immed Release 5 MG TABLET PO (08:45)
[2024-07-04] MEDS: Losartan Potassium 50 MG TABLET 100 MG PO (08:45)
[2024-07-04] MEDS: levETIRAcetam Oral Soln 500 MG/5 ML 250 MG PO ×2 (08:45→19:37)
[2024-07-04] MEDS: Potassium Chloride Packet 20 MEQ PACKET 40 MEQ PO ×2 (08:45→19:39)
[2024-07-04] MEDS: Atorvastatin Calcium 80 MG TABLET PO (08:45)
[2024-07-04] MEDS: Ferrous Sulfate 324 MG TABLET.DR PO (08:45)
[2024-07-04] MEDS: Collagenase Clostridium Hist. 30 GM TUBE 1 APPL TOPICAL (08:46)
[2024-07-04] MEDS: 0.9 % Sodium Chloride Flush 3 ML SYRINGE IVFLUSH ×3 (08:46→19:40)
--- NOTE | 2024-07-04 09:44 | HO.PM.IMPN ---
Subjective Subjective Date of Service: 07/04/24 Interval History: Follow up for resistant uti nonverbal, shakes head to answer some questions appears comfortable Physical Exam Vital Signs: Vital Signs: Last Vital Signs Temp 97.7 F 07/04/24 07:20 Pulse 66 07/04/24 07:20 Resp 16 07/04/24 07:20 BP 109/62 07/04/24 08:45 Pulse Ox 98 07/04/24 07:20 O2 Del Method Room Air 07/04/24 07:20 BMI result Body Mass Index 26.5 Appearing in no acute distress lung sounds are clear to auscultation heart regular rate rhythm, clear S1, S2 positive bowel sounds, abdomen is soft, nontender, rectal tube neuro patient is alert, nonverbal Objective Data Active Medications Atorvastatin Calcium (Atorvastatin Calcium 80 Mg Tablet) 80 mg PO DAILY [facility] Last Admin: 07/04/24 08:45 Dose: 80 mg Documented By: ANGIE Collagenase (Collagenase Clostridium Hist. 30 Gm Tube) 1 appl TOPICAL DAILY [facility]; Protocol Last Admin: 07/04/24 08:46 Dose: 1 appl Documented By: ANGIE Ferrous Sulfate (Ferrous Sulfate 324 Mg Tablet.Dr) 324 mg PO DAILY [facility] Last Admin: 07/04/24 08:45 Dose: 324 mg Documented By: ANGIE Gabapentin (Gabapentin 300 Mg Capsule) 300 mg PO BEDTIME [facility] Last Admin: 07/03/24 21:11 Dose: 300 mg Documented By: SUMANTH Linezolid (Zyvox/D5w) 600 mg in 300 mls @ 300 mls/hr IV Q12H [facility] Last Infusion: 07/04/24 05:50 Dose: Infused Documented By: SUMANTH Metronidazole (Flagyl) 500 mg in 100 mls @ 100 mls/hr IV Q8H [facility] Last Infusion: 07/04/24 04:42 Dose: Infused Documented By: SUMANTH Levetiracetam (Levetiracetam Oral Soln 500 Mg/5 Ml) 250 mg PO BID [facility] Last Admin: 07/04/24 08:45 Dose: 250 mg Documented By: ANGIE Losartan Potassium (Losartan Potassium 50 Mg Tablet) 100 mg PO DAILY [facility]; Protocol Last Admin: 07/04/24 08:45 Dose: 100 mg Documented By: ANGIE Meropenem (Meropenem 1 Gm Vial) 1 gm IVPUSH Q8H [facility] Last Admin: 07/04/24 03:12 Dose: 1 gm Documented By: SUMANTH Oxycodone HCl (Oxycodone Hcl Immed Release 5 Mg Tablet) 5 mg PO DAILY PRN PRN Reason: Pain/Wound Management Oxycodone HCl (Oxycodone Hcl Immed Release 5 Mg Tablet) 5 mg PO DAILY [facility] Last Admin: 07/04/24 08:45 Dose: 5 mg Documented By: ANGIE Potassium Chloride (Potassium Chloride Packet 20 Meq Packet) 40 meq PO BID [facility] Last Admin: 07/04/24 08:45 Dose: 40 meq Documented By: ANGIE Psyllium Hydrophilic Mucilloid (Psyllium Seed 3.7 Gm Packet) 3.7 gm PO BEDTIME [facility] Last Admin: 07/03/24 21:10 Dose: 3.7 gm Documented By: SUMANTH Rivaroxaban (Rivaroxaban 20 Mg Tablet) 20 mg PO DAILY@1700 [facility] Last Admin: 07/03/24 16:57 Dose: 20 mg Documented By: DAVID Sodium Chloride (0.9 % Sodium Chloride Flush 3 Ml Syringe) 3 ml IVFLUSH QSHIFT [facility] Last Admin: 07/04/24 08:46 Dose: 3 ml Documented By: ANGIE Tamsulosin HCl (Tamsulosin Hcl 0.4 Mg Capsule) 0.4 mg PO BEDTIME [facility] Last Admin: 07/03/24 21:11 Dose: 0.4 mg Documented By: SUMANTH Labs 07/01/24 06:27 07/03/24 08:07 Assessment and Plan (1) Dysphagia: Status: Acute Plan 68[facility] male [facility], nonverbal with history of vascular dementia, CVA with R-sided hemiparesis, neurogenic bladder with chronic SPT, stage 4 sacral decubitus ulcer, hx C. difficile colitis, seizure disorder, HTN, HLD, reportedly no urinary output for 8 days prior to admission. Pt presented to ED with abdominal pain. patient with poor response to IVF and required admission to the ICU for pressor support. 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, both present on admission Seen on Abd CT Zyvox, oral on dc ID consult> ok for oral zyvox on dc Wound care Frequent repositioning Hypokalemia Likely secondary to GI loss from diarrhea IV in oral potassium Evidence of pneumonia s/p meropenem Septic Shock Possibly secondary to urinary tract infection and urosepsis s/p Levophed, blood pressure stable CT abdomen and pelvis showing some evidence of pneumonia, sacral osteomyelitis, pseudo-obstruction of the colon Blood cx coag neg staph Cdiff diarhea has watery diarrhea, continue metronidazole>cdif PCR positive, toxin A/B negative po vanco still with rectal tube History of CVA Currently bed-bound nonverbal with significant contractures Dysphagia Cleared for NDD1 diet; total supervision Aspiration precautions Hem Chronic anemia, closely monitor H&H transfuse for hemoglobin less than 7 grams/deciliter Continue home iron supplementation Musculoskeletal Decubitus ulcer prevention protocol has osteomyelitis of sacrum wound care consult pending PAF Resume Xarelto h/o seizure d/o resume keppra HTN losartan BPH resume flomax Chronic pain Resume oxycodone DVT prophylaxis with xarelto Quality Stroke Does the patient have a stroke diagnosis?: No VTE Prior VTE?: No VTE Risk Level:: Medical - moderate - high VTE Device Contraindication: N/A - Device Ordered VTE Drug Contraindication: N/A - Med Ordered
[2024-07-04 10:44] LABS: Anion Gap 10 (12-20); Blood Urea Nitrogen 16 mg/dL (9-16); Calcium 7.9 mg/dL (8.4-10.2); Carbon Dioxide 21 mmol/L (22-29); Chloride 113 mmol/L (96-108); Creatinine Clr Calc Pharmacy 57.7; Estimated Glomerular Filt Rate > 60; Glucose Random 147 mg/dL (60-115); Potassium 3.2 mmol/L (3.3-5.1); Sodium 141 mmol/L (135-145)
[2024-07-04 11:24] VITALS: BP 95/56; PULSE 84; RESP 16; TEMP 36.9; O2SAT 96
--- NOTE | 2024-07-04 14:46 | MHC.SLORD ---
Speech Language Pathology Order Status: Pt initially agreed to PO trials, showed preference for apple juice and applesauce. However, he refused when offered the items. He did accept oral care from [employer] C[employer]TER HELPER. Pt may be recommended MBSS (inpatient vs. outpatient) to rule out silent aspiration on recommendation of thickened liquids given continued concern for PNA on modified consistencies. [employer] team to consult further with MD/RN to determine necessity/appropriateness of pt to participate in study.
[2024-07-04 15:01] VITALS: BP 107/65; PULSE 76; RESP 16; TEMP 37.2; O2SAT 100
[2024-07-04] MEDS: Rivaroxaban 20 MG TABLET PO (16:16)
[2024-07-04 19:02] VITALS: BP 114/76; PULSE 73; RESP 16; TEMP 37.1; O2SAT 98
[2024-07-04] MEDS: Gabapentin 300 MG CAPSULE PO (19:38)
[2024-07-04] MEDS: Tamsulosin HCL 0.4 MG CAPSULE PO (19:39)
[2024-07-04] MEDS: Psyllium seed 3.7 GM PACKET PO (19:39)
[2024-07-05] VITALS (8 sets, daily range): BP systolic 92–133; BP diastolic 38–82; PULSE 69–88; RESP 16–20; TEMP 36.7–37.2; O2SAT 96–98; BMI 27.4
[2024-07-05] MEDS: Linezolid/D5W 600 MG/300 ML PIGGYBACK 300 MG IV ×2 (05:34→17:13)
[2024-07-05] MEDS: Losartan Potassium 50 MG TABLET 100 MG PO (09:14)
[2024-07-05] MEDS: Atorvastatin Calcium 80 MG TABLET PO (09:16)
[2024-07-05] MEDS: oxyCODONE HCl Immed Release 5 MG TABLET PO (09:16)
[2024-07-05] MEDS: levETIRAcetam Oral Soln 500 MG/5 ML 250 MG PO ×2 (09:20→21:37)
[2024-07-05] MEDS: 0.9 % Sodium Chloride Flush 3 ML SYRINGE IVFLUSH ×3 (09:23→21:37)
[2024-07-05] MEDS: Potassium Chloride Packet 20 MEQ PACKET 40 MEQ PO ×2 (09:25→21:37)
[2024-07-05] MEDS: Ferrous Sulfate 324 MG TABLET.DR PO (09:26)
--- NOTE | 2024-07-05 11:09 | MHC.CM.PN ---
Per ROUNDS discussion, Patient is not yet medically cleared for dc (rectal tube); returning to LTC is the goal and CM will continue to follow.
--- NOTE | 2024-07-05 11:19 | MHC.CLN ---
F/U PT WITH INCREASED NUTRITION RISK R/T PRESSURE INJURY PO INTAKE 25-50% DIET RX: PUREED WITH HT LIQ RECEIVING ENSURE TID TO PROMOTE WOUND HEALING SUPP PROVIDES 1050KCALS, 60G PROTEIN MONITOR PO INTAKE AND ENCOURAGE SUPPLEMENTS
[2024-07-05] MEDS: vancomycin HCL Oral Solution 125 MG/5 ML SOLN.RECON PO ×2 (12:44→17:14)
[2024-07-05] MEDS: Collagenase Clostridium Hist. 30 GM TUBE 1 APPL TOPICAL (14:05)
--- NOTE | 2024-07-05 16:47 | MHC.SLORD ---
Speech Language Pathology Order Status: MBSS ordered this afternoon to further evaluate dysphagia, rule in/out silent aspiration. Radiologist not available this date, DIRECTOR OF EMPLOYEE DEVELOPMENT & Radiology also not available tomorrow 07/06. Notified attending, Dr. Moreira. DIRECTOR OF EMPLOYEE DEVELOPMENT to check again with Radiology in the a.m., likely scheduling for 07/07.
[2024-07-05] MEDS: Rivaroxaban 20 MG TABLET PO (17:13)
--- NOTE | 2024-07-05 17:29 | P.PNIM_ITS ---
Subjective Subjective Date of Service: 07/05/24 Interval History: Follow up for pt with sacral osteomyelitis, originally admitted for septic shock Pt nonverbal Nods or shakes head to some questions Appears to be resting comfortably Continues to have persistent diarrhea with rectal tube in place Has been tolerating p.o. meds No acute events overnight Review of Systems Review of Systems: Yes Unobtainable due to mental status Physical Exam 2 Vital Signs: Vital Signs: Last Vital Signs Temp 98.5 F 07/05/24 15:04 Pulse 80 07/05/24 15:04 Resp 16 07/05/24 15:04 BP 119/66 07/05/24 15:04 Pulse Ox 98 07/05/24 15:04 O2 Del Method Room Air 07/05/24 15:04 BMI result Body Mass Index 27.4 General: Awake, no acute distress Resp: CTA bilaterally CVS: S1, S2, RRR GI: +BS, NT, no distention Skin: Warm, dry Neuro: Alert, nonverbal Extremities: No edema Objective Data Active Medications Atorvastatin Calcium (Atorvastatin Calcium 80 Mg Tablet) 80 mg PO DAILY [facility] Last Admin: 07/05/24 09:16 Dose: 80 mg Documented By: FAUSTO Collagenase (Collagenase Clostridium Hist. 30 Gm Tube) 1 appl TOPICAL DAILY [facility]; Protocol Last Admin: 07/05/24 14:05 Dose: 1 appl Documented By: JERICHO Ferrous Sulfate (Ferrous Sulfate 324 Mg Tablet.Dr) 324 mg PO DAILY [facility] Last Admin: 07/05/24 09:26 Dose: 324 mg Documented By: FAUSTO Gabapentin (Gabapentin 300 Mg Capsule) 300 mg PO BEDTIME [facility] Last Admin: 07/04/24 19:38 Dose: 300 mg Documented By: STELLA Linezolid (Zyvox/D5w) 600 mg in 300 mls @ 300 mls/hr IV Q12H [facility] Last Admin: 07/05/24 17:13 Dose: 300 mls/hr Documented By: DABDelmi Levetiracetam (Levetiracetam Oral Soln 500 Mg/5 Ml) 250 mg PO BID [facility] Last Admin: 07/05/24 09:20 Dose: 250 mg Documented By: FAUSTO Losartan Potassium (Losartan Potassium 50 Mg Tablet) 100 mg PO DAILY [facility]; Protocol Last Admin: 07/05/24 09:14 Dose: 100 mg Documented By: FAUSTO Oxycodone HCl (Oxycodone Hcl Immed Release 5 Mg Tablet) 5 mg PO DAILY [facility] Last Admin: 07/05/24 09:16 Dose: 5 mg Documented By: FAUSTO Potassium Chloride (Potassium Chloride Packet 20 Meq Packet) 40 meq PO BID [facility] Last Admin: 07/05/24 09:25 Dose: 40 meq Documented By: FAUSTO Psyllium Hydrophilic Mucilloid (Psyllium Seed 3.7 Gm Packet) 3.7 gm PO BEDTIME [facility] Last Admin: 07/04/24 19:39 Dose: 3.7 gm Documented By: STELLA Rivaroxaban (Rivaroxaban 20 Mg Tablet) 20 mg PO DAILY@1700 [facility] Last Admin: 07/05/24 17:13 Dose: 20 mg Documented By: NICO Sodium Chloride (0.9 % Sodium Chloride Flush 3 Ml Syringe) 3 ml IVFLUSH QSHIFT [facility] Last Admin: 07/05/24 17:13 Dose: 3 ml Documented By: NICO Tamsulosin HCl (Tamsulosin Hcl 0.4 Mg Capsule) 0.4 mg PO BEDTIME [facility] Last Admin: 07/04/24 19:39 Dose: 0.4 mg Documented By: STELLA Vancomycin HCl (Vancomycin Hcl Oral Solution 125 Mg/5 Ml Soln.Recon) 125 mg PO Q6H [facility] Stop: 07/15/24 05:59 Last Admin: 07/05/24 17:14 Dose: 125 mg Documented By: NICO Labs 07/01/24 06:27 07/04/24 10:15 Assessment and Plan (1) Septic shock: Status: Acute Plan 68yo male who is LTC resident [facility], nonverbal with history of vascular dementia, CVA with R-sided hemiparesis, neurogenic bladder with chronic SPT, stage 4 sacral decubitus ulcer, hx C. difficile colitis, seizure disorder, HTN, HLD, reportedly no urinary output for 8 days prior to admission. Pt presented to ED with abdominal pain. patient with poor response to IVF and required admission to the ICU for pressor support. 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 x4 weeks, started 06/29/2024 ID consult> ok for oral zyvox on dc Wound care Frequent repositioning, air loss mattress Hypokalemia Likely secondary to GI loss from diarrhea IV and oral potassium Follow up potassium Evidence of pneumonia s/p meropenem Septic Shock Possibly secondary to urinary tract infection and urosepsis s/p Levophed, blood pressure stable CT abdomen and pelvis showing some evidence of pneumonia, sacral osteomyelitis, pseudo-obstruction of the colon Blood cx coag neg staph, 1/2 UA culture negative Cdiff diarhea has watery diarrhea, s/p metronidazole>cdif PCR positive, toxin A/B negative po vanco x10 days, per ID recommendation Still with rectal tube History of CVA Currently bed-bound nonverbal with significant contractures Dysphagia Cleared for NDD1 diet; total supervision Aspiration precautions Hem Chronic anemia, closely monitor H&H transfuse for hemoglobin less than 7 grams/deciliter Continue home iron supplementation Musculoskeletal Decubitus ulcer prevention protocol has osteomyelitis of sacrum wound care consult pending PAF Resume Xarelto h/o seizure d/o resume keppra HTN losartan BPH resume flomax Chronic pain Resume oxycodone DVT prophylaxis with xarelto Pt needs continued hospitalization due to persistent watery diarrhea with rectal tube in place. Quality Stroke Does the patient have a stroke diagnosis?: No VTE Prior VTE?: No VTE Risk Level:: Medical - moderate - high VTE Device Contraindication: N/A - Device Ordered VTE Drug Contraindication: N/A - Med Ordered
[2024-07-05] MEDS: Gabapentin 300 MG CAPSULE PO (21:37)
[2024-07-05] MEDS: Tamsulosin HCL 0.4 MG CAPSULE PO (21:37)
[2024-07-05] MEDS: Psyllium seed 3.7 GM PACKET PO (21:37)
[2024-07-06] VITALS (7 sets, daily range): BP systolic 89–151; BP diastolic 54–82; PULSE 70–93; RESP 12–18; TEMP 36.2–37.3; O2SAT 93–99; BMI 29.5
[2024-07-06] MEDS: vancomycin HCL Oral Solution 125 MG/5 ML SOLN.RECON PO ×5 (00:53→23:09)
[2024-07-06] MEDS: Linezolid/D5W 600 MG/300 ML PIGGYBACK 300 MG IV ×2 (05:55→17:30)
[2024-07-06 06:51] LABS: Anion Gap 8 (12-20); Blood Urea Nitrogen 16 mg/dL (9-16); Carbon Dioxide 25 mmol/L (22-29); Chloride 111 mmol/L (96-108); Creatinine Clr Calc Pharmacy 70.2; Estimated Glomerular Filt Rate > 60; Glucose Random 128 mg/dL (60-115); Potassium 3.9 mmol/L (3.3-5.1); Sodium 140 mmol/L (135-145)
[2024-07-06] MEDS: levETIRAcetam Oral Soln 500 MG/5 ML 250 MG PO ×2 (08:52→21:45)
[2024-07-06] MEDS: Losartan Potassium 50 MG TABLET 100 MG PO (08:52)
[2024-07-06] MEDS: Atorvastatin Calcium 80 MG TABLET PO (08:53)
[2024-07-06] MEDS: oxyCODONE HCl Immed Release 5 MG TABLET PO (08:53)
[2024-07-06] MEDS: Ferrous Sulfate 324 MG TABLET.DR PO (08:53)
--- NOTE | 2024-07-06 14:25 | MHC.SL.SWA ---
Speech Pathologist Impression: Risk of Aspiration Due to: Dysphasia Diet Status: Recommend patient continue on current diet of Puree with HONEY THICK liquids, pills crushed in puree. 1-1 feeding, NO STRAWS, liquids by tsp or controlled cup sip only Liquid Consistency and Strategies for Safe Swallow: Liquid Intake Recommendation: Honey Thick Liquid Intake Strategies: Solid Food Consistency: Dietary Recommendations: Pureed (NDD1) Additional Modifications to Solid Foods: Patient presents with moderate oropharyngeal phase dysphagia, characterized by slow and disorganized oral phase and delayed pharyngeal phase. Patient presents with repetitive tongue pumping, partial laryngeal elevation, and mildly delayed pharyngeal swallow trigger. Complete oral clearance noted on liquid and solid consistencies and no overt s/s of aspiration with PO intake. Patient is tolerating CUSTOMER BUSINESS MANAGER recommendation of PUREED (NDD1) solids and HONEY THICK liquids, pills to be CRUSHED in PUREE. Oral Medication Intake: Crushed with Puree Please contact the pharmacy regarding appropriate crushable or liquid drug formulations that are available whenever modified delivery is recommended. Compensatory Strategies and Precautions to be Taken for Safe Swallow: Sitting Upright (90 deg) No Straw Liquids from Cup Liquids from Straw Small Bites and Sips Alternate Liquids/Solids Rate of Ingestion Change Supervision While Eating and Drinking for Safe Swallow: Total Assistance (1:1) Foods to Avoid: Mixed consistencies Swallowing Recommended Treatments: Compens. Strategy Educat. Recommendation for Speech: Inpatient Speech Therapy Speech Therapy through [facility] Comment: Patient seen this p.m., after lunch had concluded. Patient still had nutritional shake, marked Honey Thick at bedside which was offered and patient nodding in agreement. Shake was given by tsp, with patient readily opening mouth for spoon, producing a repetitive tongue pumping motion on the bolus, followed by mild delay initiating swallow. This wallow pattern well documented in recent and previous speech evaluations. Patient tolerated this well for about 1/2 a carton, then refused further. It was noted that there were straws present in drinks at onset of this visit, straws were removed, white board was updated with recommended diet, 1-1 feeding, NO STRAWS, liquids by tsp or controlled cup sip only. Recommend patient continue on current diet of Puree with HONEY THICK liquids, pills crushed in puree. Frequency/Duration: M-F while inpatient Date Range for Service Req: Timeline to reassess: Repairer Engine Production Clinican/Clinical Fellow: No Supervisory Statement: I have reviewed and agree with the student/clinical fellow's documentation: N/A Speech Language Pathologist: Anni Lloyd M.A., CCC-CUSTOMER BUSINESS MANAGER
[2024-07-06] MEDS: 0.9 % Sodium Chloride 500 ML IV (15:33)
--- NOTE | 2024-07-06 16:55 | P.PNIM_ITS ---
Subjective Subjective Date of Service: 07/06/24 Interval History: Seen and examined this morning Follow-up for shock, urosepsis, diarrhea, sacral osteomyelitis still with rectal tube Unable to obtain any significant history as patient is primarily nonverbal; pt awake/alert Physical Exam 2 Vital Signs: Vital Signs: Last Vital Signs Temp 97.8 F 07/06/24 15:16 Pulse 89 07/06/24 16:42 Resp 12 07/06/24 15:16 BP 136/72 07/06/24 16:42 Pulse Ox 98 07/06/24 15:16 O2 Del Method Room Air 07/06/24 15:16 BMI result Body Mass Index 29.5 Const: Other: Chronically ill-appearing, unable to assess orientation General: alert and awake Resp: Effort & Inspection: no respiratory distress and no use of accessory muscles Cardio: Rate: regular rate GI: Other: rectal tube in place Inspection: No distended Palpation (GI): Soft to palpation : Other: Suprapubic catheter/right nephrostomy tube draining clear urine Neuro: Other: alert, nonverbal Objective Data Active Medications Atorvastatin Calcium (Atorvastatin Calcium 80 Mg Tablet) 80 mg PO DAILY [facility] Last Admin: 07/06/24 08:53 Dose: 80 mg Documented By: MOSES Collagenase (Collagenase Clostridium Hist. 30 Gm Tube) 1 appl TOPICAL DAILY [facility]; Protocol Last Admin: 07/05/24 14:05 Dose: 1 appl Documented By: JERICHO Ferrous Sulfate (Ferrous Sulfate 324 Mg Tablet.) 324 mg PO DAILY [facility] Last Admin: 07/06/24 08:53 Dose: 324 mg Documented By: MOSES Gabapentin (Gabapentin 300 Mg Capsule) 300 mg PO BEDTIME [facility] Last Admin: 07/05/24 21:37 Dose: 300 mg Documented By: ISATU Linezolid (Zyvox/D5w) 600 mg in 300 mls @ 300 mls/hr IV Q12H [facility] Last Infusion: 07/06/24 07:17 Dose: Infused Documented By: MOSES Lactated Ringer's (Lr) 500 mls @ 100 mls/hr IVCONT .Q5H [facility] Stop: 07/06/24 21:59 Levetiracetam (Levetiracetam Oral Soln 500 Mg/5 Ml) 250 mg PO BID [facility] Last Admin: 07/06/24 08:52 Dose: 250 mg Documented By: MOSES Losartan Potassium (Losartan Potassium 50 Mg Tablet) 100 mg PO DAILY [facility]; Protocol Last Admin: 07/06/24 08:52 Dose: 100 mg Documented By: MOSES Potassium Chloride (Potassium Chloride Packet 20 Meq Packet) 40 meq PO BID [facility] Last Admin: 07/06/24 10:55 Dose: Not Given Documented By: MOSES Non-Admin Reason: Patient Refused Rivaroxaban (Rivaroxaban 20 Mg Tablet) 20 mg PO DAILY@1700 [facility] Last Admin: 07/05/24 17:13 Dose: 20 mg Documented By: DABDelmi Sodium Chloride (0.9 % Sodium Chloride Flush 3 Ml Syringe) 3 ml IVFLUSH QSHIFT [facility] Last Admin: 07/06/24 15:46 Dose: Not Given Documented By: MOSES Non-Admin Reason: Previously Administered Tamsulosin HCl (Tamsulosin Hcl 0.4 Mg Capsule) 0.4 mg PO BEDTIME [facility] Last Admin: 07/05/24 21:37 Dose: 0.4 mg Documented By: ISATU Vancomycin HCl (Vancomycin Hcl Oral Solution 125 Mg/5 Ml Soln.Recon) 125 mg PO Q6H [facility] Stop: 07/15/24 05:59 Last Admin: 07/06/24 12:29 Dose: 125 mg Documented By: MOSES Labs 07/01/24 06:27 07/06/24 06:18 Labs: Laboratory Results - last 24 hr 07/06/24 06:18 Hold Purple Top SEE NOTE Anion Gap 8 L Estim Creat Clear Calc 70.2 Estimated GFR > 60 Random Glucose 128 H Calcium 8.0 L Assessment and Plan (1) Stage 4 pressure ulcer: Status: Acute (2) Septic shock: Status: Acute Plan This is a 68yo male who is LTC resident of [facility], nonverbal with history of vascular dementia, CVA with R-sided hemiparesis, neurogenic bladder with chronic SPT, stage 4 sacral decubitus ulcer, hx C. difficile colitis, seizure disorder, HTN, HLD, reportedly no urinary output for 8 days prior to admission. Pt presented to ED with abdominal pain. patient with poor response to IVF and required admission to the ICU for pressor support. 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 x4 weeks, started 06/29/2024 ID consult> ok for oral zyvox on dc Wound care Frequent repositioning, air loss mattress Outpatient follow-up in [facility] Hypokalemia Likely secondary to GI loss from diarrhea Resolved with replacement Evidence of pneumonia s/p meropenem Septic Shock Possibly secondary to urinary tract infection and urosepsis s/p Levophed, blood pressure stable CT abdomen and pelvis showing some evidence of pneumonia, sacral osteomyelitis, pseudo-obstruction of the colon Blood cx coag neg staph, / UA culture negative Cdiff diarhea has watery diarrhea, s/p metronidazole>cdif PCR positive, toxin A/B negative po vanco for duration of linezolid therapy and then 48 hours afterward per ID recommendation Still with rectal tube History of CVA Currently bed-bound nonverbal with significant contractures Dysphagia Cleared for NDD1 diet; total supervision Aspiration precautions MBSS possible tomorrow vs outpatient Chronic anemia H/H has been stable transfuse for hemoglobin less than 7 grams/deciliter Continue home iron supplementation PAF Continue Xarelto h/o seizure d/o Continue keppra HTN BP soft this afternoon, responded to IV fluid Hold losartan BPH Continue flomax Chronic pain Resume oxycodone DVT prophylaxis with xarelto Pt needs continued hospitalization due to persistent watery diarrhea with rectal tube in place. dispo - return to manager terminal [facility] Quality Stroke Does the patient have a stroke diagnosis?: No VTE Prior VTE?: No VTE Risk Level:: Medical - moderate - high VTE Device Contraindication: N/A - Device Ordered VTE Drug Contraindication: N/A - Med Ordered
[2024-07-06] MEDS: Lactated Ringers 500 ML 100 ML IVCONT (17:00)
[2024-07-06] MEDS: Rivaroxaban 20 MG TABLET PO (17:30)
[2024-07-06] MEDS: Collagenase Clostridium Hist. 30 GM TUBE 1 APPL TOPICAL (17:35)
[2024-07-06] MEDS: 0.9 % Sodium Chloride Flush 3 ML SYRINGE IVFLUSH (23:09)
[2024-07-07] MEDS: Acetaminophen 1,000 MG/100 ML PIGGYBACK 400 MG IV (03:19)
[2024-07-07 03:35] VITALS: BP 131/71; PULSE 82; RESP 18; TEMP 37.3; O2SAT 98
[2024-07-07] MEDS: Linezolid/D5W 600 MG/300 ML PIGGYBACK 300 MG IV ×2 (05:33→17:24)
[2024-07-07] MEDS: vancomycin HCL Oral Solution 125 MG/5 ML SOLN.RECON PO ×4 (05:33→22:32)
[2024-07-07 06:00] VITALS: BMI 29.6
[2024-07-07 08:00] VITALS: BP 125/77; PULSE 77; RESP 17; TEMP 36.5; O2SAT 98
--- NOTE | 2024-07-07 09:07 | MHC.SLORD ---
Addendum entered and electronically signed by Danielle Avery MA, CCC-NEW CLIENT BANKING SERVICES CLERK 07/07/24 12:52: Attending PA, Rosibel Mcnulty, notified via [facility] Message. Original Note: Addendum entered and electronically signed by Danielle Avery MA, CCC-NEW CLIENT BANKING SERVICES CLERK 07/07/24 12:47: NEW CLIENT BANKING SERVICES CLERK received communication from [facility] reporting patient was not sent for the exam, per RN, d/t patient not being able to sit up. Upon further discussion, RN reporting patient has rectal tube, multiple other tubes hooked up to bed, is on contact precautions, and has not been cooperative with care today, per RN, not appropriate for MBSS at this time. NEW CLIENT BANKING SERVICES CLERK checked in on patient for dysphagia treatment at bedside, with very limited participation. Patient would only take very small amounts of juice and then refused all PO despite encouragement. MBSS cancelled, as patient is not participatory and per RN, with challenges to transport. Patient stable tolerating NEW CLIENT BANKING SERVICES CLERK recomemndation for pureed solids (NDD1) and honey thick liquids. Original Note: Speech Language Pathology Order Status: MBSS is scheduled for 10:30am, Radiology to arrange for transport.
[2024-07-07] MEDS: Potassium Chloride ER 20 MEQ TAB.ER.PRT PO (09:10)
--- NOTE | 2024-07-07 11:22 | MHC.CM.PN ---
PT NOT YET CLEARED TO DC, MBSS PLANNED FOR THIS MORNING DCP: RETURN TO LTC AT [facility] VIA BLS
--- NOTE | 2024-07-07 11:36 | MHC.CLN ---
F/U PT WITH INCREASED NUTRITION RISK R/T PRESSURE INJURIES. PO INTAKE 25-50%. DIET RX: PUREED WITH HT LIQ. RECEIVING ENSURE TID TO PROMOTE WOUND HEALING. SUPP PROVIDES 1050KCALS, 60G PROTEIN. SCHEDULED FOR MBSS TODAY. MONITOR PO INTAKE AND ENCOURAGE SUPPLEMENTS.
[2024-07-07 11:41] VITALS: BP 144/93; PULSE 83; RESP 17; TEMP 36.6; O2SAT 98
--- NOTE | 2024-07-07 14:35 | HO.PM.IMPN ---
Subjective Subjective Date of Service: 07/07/24 Interval History: Seen and examined this morning Follow-up for septic shock Still with rectal tube Unable to obtain history, patient nonverbal Physical Exam Vital Signs: Vital Signs: Last Vital Signs Temp 97.8 F 07/07/24 11:41 Pulse 83 07/07/24 11:41 Resp 17 07/07/24 11:41 BP 144/93 H 07/07/24 11:41 Pulse Ox 98 07/07/24 11:41 O2 Del Method Room Air 07/07/24 11:41 BMI result Body Mass Index 29.6 Const: Other: Chronically ill-appearing, unable to assess orientation General: alert and awake Resp: Effort & Inspection: no respiratory distress and no use of accessory muscles Cardio: Rate: regular rate GI: Other: rectal tube in place Inspection: No distended Palpation (GI): Soft to palpation : Other: Suprapubic catheter/right nephrostomy tube draining clear urine Neuro: Other: alert, nonverbal Objective Data Active Medications Atorvastatin Calcium (Atorvastatin Calcium 80 Mg Tablet) 80 mg PO DAILY [facility] Last Admin: 07/07/24 09:29 Dose: Not Given Documented By: MOSES Non-Admin Reason: Patient Refused Collagenase (Collagenase Clostridium Hist. 30 Gm Tube) 1 appl TOPICAL DAILY [facility]; Protocol Last Admin: 07/06/24 17:35 Dose: 1 appl Documented By: MOSES Ferrous Sulfate (Ferrous Sulfate 324 Mg Tablet.Dr) 324 mg PO DAILY [facility] Last Admin: 07/07/24 09:29 Dose: Not Given Documented By: MOSES Non-Admin Reason: Patient Refused Gabapentin (Gabapentin 300 Mg Capsule) 300 mg PO BEDTIME [facility] Last Admin: 07/06/24 22:16 Dose: Not Given Documented By: ISATU Non-Admin Reason: Patient Refused Linezolid (Zyvox/D5w) 600 mg in 300 mls @ 300 mls/hr IV Q12H [facility] Last Infusion: 07/07/24 06:33 Dose: Infused Documented By: ISATU Levetiracetam (Levetiracetam Oral Soln 500 Mg/5 Ml) 250 mg PO BID [facility] Last Admin: 07/07/24 09:29 Dose: Not Given Documented By: MOSES Non-Admin Reason: Patient Refused Comments: Rosibel Hamlet PA aware Loperamide HCl (Loperamide Hcl 2 Mg Capsule) 2 mg PO Q4H PRN PRN Reason: Diarrhea Losartan Potassium (Losartan Potassium 50 Mg Tablet) 100 mg PO DAILY [facility]; Protocol Last Admin: 07/06/24 08:52 Dose: 100 mg Documented By: MOSES Potassium Chloride (Potassium Chloride Er 20 Meq Tab.Er.Prt) 20 meq PO BID [facility] Last Admin: 07/07/24 09:10 Dose: 20 meq Documented By: MOSES Rivaroxaban (Rivaroxaban 20 Mg Tablet) 20 mg PO DAILY@1700 [facility] Last Admin: 07/06/24 17:30 Dose: 20 mg Documented By: MOSES Sodium Chloride (0.9 % Sodium Chloride Flush 3 Ml Syringe) 3 ml IVFLUSH QSHIFT [facility] Last Admin: 07/07/24 09:30 Dose: Not Given Documented By: MOSES Non-Admin Reason: Patient Refused Tamsulosin HCl (Tamsulosin Hcl 0.4 Mg Capsule) 0.4 mg PO BEDTIME [facility] Last Admin: 07/06/24 22:16 Dose: Not Given Documented By: ISATU Non-Admin Reason: Patient Refused Vancomycin HCl (Vancomycin Hcl Oral Solution 125 Mg/5 Ml Soln.Recon) 125 mg PO Q6H [facility] Stop: 07/15/24 05:59 Last Admin: 07/07/24 12:34 Dose: 125 mg Documented By: MOSES Labs 07/01/24 06:27 07/06/24 06:18 Assessment and Plan (1) Septic shock: Status: Acute Plan This is a 68yo male who is LTC resident of [facility], nonverbal with history of vascular dementia, CVA with R-sided hemiparesis, neurogenic bladder with chronic SPT, stage 4 sacral decubitus ulcer, hx C. difficile colitis, seizure disorder, HTN, HLD, reportedly no urinary output for 8 days prior to admission. patient with poor response to IVF and required admission to the ICU for pressor support. 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 x4 weeks, started 06/29/2024 ID consult> ok for oral zyvox on dc Wound care Frequent repositioning, air loss mattress Outpatient follow-up in Wound Care Clinic Hypokalemia Likely secondary to GI loss from diarrhea Resolved with replacement pneumonia s/p meropenem Septic Shock Possibly secondary to urinary tract infection s/p Levophed, blood pressure stable CT abdomen and pelvis showing some evidence of pneumonia, sacral osteomyelitis, pseudo-obstruction of the colon Blood cx coag neg staph, 1/2 UA culture negative Cdiff diarhea s/p metronidazole>cdif PCR positive, toxin A/B negative po vanco for duration of linezolid therapy and then 48 hours afterward per ID recommendation Still with rectal tube - start prn imodium History of CVA Currently bed-bound nonverbal with significant contractures Dysphagia Cleared for NDD1 diet; total supervision Aspiration precautions MBSS possible tomorrow vs outpatient Chronic anemia H/H has been stable transfuse for hemoglobin less than 7 grams/deciliter Continue home iron supplementation PAF Continue Xarelto h/o seizure d/o Continue keppra HTN BP soft this afternoon, responded to IV fluid Hold losartan for now BPH Continue flomax Chronic pain Resume oxycodone right great toe DTI present on admission - continue heel boot protectors DVT prophylaxis with xarelto Pt needs continued hospitalization due to persistent watery diarrhea with rectal tube in place. dispo - return to correction [facility] Stroke Does the patient have a stroke diagnosis?: No VTE Prior VTE?: No VTE Risk Level:: Medical - moderate - high VTE Device Contraindication: N/A - Device Ordered VTE Drug Contraindication: N/A - Med Ordered
--- NOTE | 2024-07-07 14:41 | P.CDIM_ITS ---
PROVIDER RESPONSE TEXT: To clarify, the appropriate diagnosis supported by the clinical indicators: Deep tissue injury great right Toe: present QUERY TEXT: PHYSICIAN'S DOCUMENTATION REQUEST Date of Query: 07/07/2024 08:12 AM EDT Patient Name: Wyatt Castillo Admit Date: 06/29/2024 Dear Rosibel BRANHAM, A review of the medical record indicates additional documentation may be needed. Please review below and update the documentation accordingly. Clinical Indicators: Wound care assessment notes 07/03/24 - Deep tissue injury right great toe - Present on admission. Intact nonblanchable dark purple tissue. Continue to protect from pressure and trauma - continue with heel boot. Based on the above, could you please provide further information regarding the ulcer/wound/injury: Deep tissue injury great right Toe possible, suspected, cannot rule out etc. Other specified Other (explain) Clinically unable to determine (explain) Thank you, Shaye Middleton, CCS, CDIS Use of terms such as suspected, likely, concern for, or probable (associated with a specific diagnosi s that is being evaluated, monitored, or treated as if it exists) are acceptable and can be coded in the inpatient se tting, when documented at the time of discharge. Please use your independent medical judgment in providing your response. THIS QUERY IS PART OF THE PERMANENT MEDICAL RECORD
[2024-07-07 14:58] VITALS: BP 113/63; PULSE 76; RESP 12; TEMP 36.9; O2SAT 99
[2024-07-07] MEDS: Loperamide HCl 2 MG CAPSULE PO (15:09)
[2024-07-07] MEDS: 0.9 % Sodium Chloride Flush 3 ML SYRINGE IVFLUSH ×2 (17:24→19:38)
[2024-07-07] MEDS: Rivaroxaban 20 MG TABLET PO (17:25)
[2024-07-07] MEDS: Collagenase Clostridium Hist. 30 GM TUBE 1 APPL TOPICAL (17:25)
[2024-07-07 19:21] VITALS: BP 125/60; PULSE 84; RESP 18; TEMP 37.2; O2SAT 97
[2024-07-07 23:57] VITALS: BP 118/69; PULSE 63; RESP 18; TEMP 36.6; O2SAT 98
[2024-07-08 04:00] VITALS: BP 125/72; PULSE 68; RESP 18; TEMP 36.8; O2SAT 98
[2024-07-08 06:00] VITALS: BMI 29.5
[2024-07-08] MEDS: vancomycin HCL Oral Solution 125 MG/5 ML SOLN.RECON PO ×4 (06:02→23:30)
[2024-07-08] MEDS: Linezolid/D5W 600 MG/300 ML PIGGYBACK 300 MG IV ×2 (06:07→17:43)
[2024-07-08 06:35] LABS: Hematocrit 24.8 % (42.0-52.0); Hemoglobin 8.2 g/dl (14.0-18.0)
[2024-07-08 06:45] LABS: Anion Gap 9 (12-20); Blood Urea Nitrogen 17 mg/dL (9-16); Calcium 7.8 mg/dL (8.4-10.2); Carbon Dioxide 23 mmol/L (22-29); Chloride 108 mmol/L (96-108); Creatinine Clr Calc Pharmacy 89.5; Estimated Glomerular Filt Rate > 60; Glucose Random 95 mg/dL (60-115); Magnesium 1.8 mg/dL (1.6-2.6); Potassium 3.4 mmol/L (3.3-5.1); Sodium 137 mmol/L (135-145)
[2024-07-08 08:41] VITALS: BP 152/72; PULSE 67; RESP 12; TEMP 36.3; O2SAT 96
[2024-07-08] MEDS: Ferrous Sulfate 324 MG TABLET.DR PO (09:31)
[2024-07-08] MEDS: Potassium Chloride ER 20 MEQ TAB.ER.PRT PO ×2 (09:31→20:14)
[2024-07-08] MEDS: Atorvastatin Calcium 80 MG TABLET PO (09:31)
[2024-07-08] MEDS: levETIRAcetam Oral Soln 500 MG/5 ML 250 MG PO ×2 (09:31→20:14)
[2024-07-08] MEDS: 0.9 % Sodium Chloride Flush 3 ML SYRINGE IVFLUSH ×3 (09:36→20:14)
[2024-07-08] MEDS: Loperamide HCl 2 MG CAPSULE PO ×4 (11:45→23:32)
[2024-07-08 12:00] VITALS: BP 125/88; PULSE 80; RESP 16; TEMP 36.9; O2SAT 98
--- NOTE | 2024-07-08 14:36 | P.PNIM_ITS ---
Subjective Subjective Date of Service: 07/08/24 Interval History: seen and examined this morning follow up for osteomyelitis, C diff Still with diarrhea Nonverbal unable to obtain any history. pt sitting up, awake/alert Review of Systems Unable to obtain review of systems. nods his head yes to everything Physical Exam 2 Vital Signs: Vital Signs: Last Vital Signs Temp 98.4 F 07/08/24 12:00 Pulse 80 07/08/24 12:00 Resp 16 07/08/24 12:00 BP 125/88 07/08/24 12:00 Pulse Ox 98 07/08/24 12:00 O2 Del Method Room Air 07/08/24 12:00 BMI result Body Mass Index 29.5 Const: Other: Chronically ill-appearing, unable to assess orientation General: alert and awake Resp: Effort & Inspection: no respiratory distress and no use of accessory muscles Cardio: Rate: regular rate GI: Other: rectal tube in place Inspection: No distended Palpation (GI): Soft to palpation : Other: Suprapubic catheter/right nephrostomy tube draining clear urine Neuro: Other: alert, nonverbal Extrem: Other: off loading boots in place Objective Data Active Medications Atorvastatin Calcium (Atorvastatin Calcium 80 Mg Tablet) 80 mg PO DAILY [facility] Last Admin: 07/08/24 09:31 Dose: 80 mg Documented By: TOI Collagenase (Collagenase Clostridium Hist. 30 Gm Tube) 1 appl TOPICAL DAILY [facility]; Protocol Last Admin: 07/08/24 09:38 Dose: Not Given Documented By: TOI Non-Admin Reason: applied by previous shift Ferrous Sulfate (Ferrous Sulfate 324 Mg Tablet.) 324 mg PO DAILY [facility] Last Admin: 07/08/24 09:31 Dose: 324 mg Documented By: TOI Gabapentin (Gabapentin 300 Mg Capsule) 300 mg PO BEDTIME [facility] Last Admin: 07/07/24 19:44 Dose: Not Given Documented By: IMELDA Non-Admin Reason: Patient Refused Linezolid (Zyvox/D5w) 600 mg in 300 mls @ 300 mls/hr IV Q12H [facility] Last Infusion: 07/08/24 08:05 Dose: Infused Documented By: TOI Levetiracetam (Levetiracetam Oral Soln 500 Mg/5 Ml) 250 mg PO BID [facility] Last Admin: 07/08/24 09:31 Dose: 250 mg Documented By: TOI Loperamide HCl (Loperamide Hcl 2 Mg Capsule) 2 mg PO Q4H [facility] Last Admin: 07/08/24 13:37 Dose: Not Given Documented By: TOI Non-Admin Reason: Previously Administered Losartan Potassium (Losartan Potassium 50 Mg Tablet) 100 mg PO DAILY [facility]; Protocol Last Admin: 07/06/24 08:52 Dose: 100 mg Documented By: MOSES Potassium Chloride (Potassium Chloride Er 20 Meq Tab.Er.Prt) 20 meq PO BID [facility] Last Admin: 07/08/24 09:31 Dose: 20 meq Documented By: TOI Rivaroxaban (Rivaroxaban 20 Mg Tablet) 20 mg PO DAILY@1700 [facility] Last Admin: 07/07/24 17:25 Dose: 20 mg Documented By: MOSES Sodium Chloride (0.9 % Sodium Chloride Flush 3 Ml Syringe) 3 ml IVFLUSH QSHIFT [facility] Last Admin: 07/08/24 09:36 Dose: 3 ml Documented By: TOI Tamsulosin HCl (Tamsulosin Hcl 0.4 Mg Capsule) 0.4 mg PO BEDTIME [facility] Last Admin: 07/07/24 19:45 Dose: Not Given Documented By: IMELDA Non-Admin Reason: Patient Refused Vancomycin HCl (Vancomycin Hcl Oral Solution 125 Mg/5 Ml Soln.Recon) 125 mg PO Q6H [facility] Stop: 07/15/24 05:59 Last Admin: 07/08/24 11:45 Dose: 125 mg Documented By: TOI Labs 07/08/24 05:30 07/08/24 05:30 Labs: Laboratory Results - last 24 hr 07/08/24 05:30 Anion Gap 9 L Estim Creat Clear Calc 89.5 Estimated GFR > 60 Random Glucose 95 Calcium 7.8 L Magnesium 1.8 Assessment and Plan (1) Septic shock: Status: Acute (2) Complicated urinary tract infection: Status: Acute Plan This is a 68yo male who is LTC resident of [facility], nonverbal with history of vascular dementia, CVA with R-sided hemiparesis, neurogenic bladder with chronic SPT, stage 4 sacral decubitus ulcer, hx C. difficile colitis, seizure disorder, HTN, HLD, reportedly no urinary output for 8 days prior to admission. patient with poor response to IVF and required admission to the ICU for pressor support. 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 x4 weeks, started 06/29/2024 ID consult> ok for oral zyvox on dc Wound care Frequent repositioning, air loss mattress Outpatient follow-up in Wound Care Clinic Hypokalemia Likely secondary to GI loss from diarrhea Resolved with replacement, continue po replacement while having diarrhea pneumonia s/p meropenem Septic Shock Possibly secondary to urinary tract infection s/p Levophed, blood pressure stable CT abdomen and pelvis showing some evidence of pneumonia, sacral osteomyelitis, pseudo-obstruction of the colon Blood cx coag neg staph, 1/2 likely contamination UA culture negative Cdiff diarhea s/p metronidazole>cdif PCR positive, toxin A/B negative po vanco for duration of linezolid therapy and then 48 hours afterward per ID recommendation Still with rectal tube - imodium History of CVA Currently bed-bound nonverbal with significant contractures Dysphagia Cleared for NDD1 diet; total supervision Aspiration precautions MBSS can be done outpatient Chronic anemia H/H has been stable transfuse for hemoglobin less than 7 grams/deciliter Continue home iron supplementation PAF Continue Xarelto h/o seizure d/o Continue keppra HTN BP soft this afternoon, responded to IV fluid Hold losartan for now BPH Continue flomax Chronic pain Resume oxycodone right great toe DTI present on admission - continue heel boot protectors DVT prophylaxis with xarelto Pt needs continued hospitalization due to persistent watery diarrhea with rectal tube in place. 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
[2024-07-08 15:54] VITALS: BP 116/60; PULSE 79; RESP 18; TEMP 36.7; O2SAT 97
[2024-07-08] MEDS: Magnesium Sulfate/H2O 2 GM/50 ML PIGGYBACK IV (16:10)
[2024-07-08] MEDS: Rivaroxaban 20 MG TABLET PO (16:13)
[2024-07-08 20:00] VITALS: BP 158/88; PULSE 78; RESP 16; TEMP 36.6; O2SAT 94
[2024-07-08] MEDS: Tamsulosin HCL 0.4 MG CAPSULE PO (20:14)
[2024-07-08] MEDS: Gabapentin 300 MG CAPSULE PO (20:14)
[2024-07-08 23:49] VITALS: BP 122/62; PULSE 74; RESP 16; TEMP 36.6; O2SAT 99
[2024-07-09 03:08] VITALS: BP 119/68; PULSE 75; RESP 18; TEMP 36.6; O2SAT 97
[2024-07-09 06:00] VITALS: BMI 28.5
[2024-07-09] MEDS: Loperamide HCl 2 MG CAPSULE PO (06:06)
[2024-07-09] MEDS: vancomycin HCL Oral Solution 125 MG/5 ML SOLN.RECON PO ×4 (06:06→22:51)
[2024-07-09] MEDS: Linezolid/D5W 600 MG/300 ML PIGGYBACK 300 MG IV ×2 (06:13→17:08)
[2024-07-09 07:26] VITALS: BP 139/71; PULSE 68; RESP 16; TEMP 36.7; O2SAT 98
[2024-07-09] MEDS: Potassium Chloride ER 20 MEQ TAB.ER.PRT PO ×2 (09:00→20:05)
[2024-07-09] MEDS: Diphenoxylate/Atrop 2.5/0.025 TABLET 2 TAB PO ×4 (09:00→20:04)
[2024-07-09] MEDS: 0.9 % Sodium Chloride Flush 3 ML SYRINGE IVFLUSH ×3 (09:00→20:15)
[2024-07-09] MEDS: Atorvastatin Calcium 80 MG TABLET PO (09:00)
[2024-07-09] MEDS: levETIRAcetam Oral Soln 500 MG/5 ML 250 MG PO ×2 (09:00→20:05)
[2024-07-09] MEDS: Ferrous Sulfate 324 MG TABLET.DR PO (09:00)
[2024-07-09 11:45] VITALS: BP 146/63; PULSE 88; RESP 16; TEMP 36.2; O2SAT 96
--- NOTE | 2024-07-09 15:03 | HO.PM.IMPN ---
Subjective Subjective Date of Service: 07/09/24 Interval History: seen and examined this morning follow up osteo, diarrhea awake, alert non-verbal Review of Systems Unable to obtain review of systems Physical Exam Vital Signs: Vital Signs: Last Vital Signs Temp 97.2 F 07/09/24 11:45 Pulse 88 07/09/24 11:45 Resp 16 07/09/24 11:45 BP 146/63 H 07/09/24 11:45 Pulse Ox 96 07/09/24 11:45 O2 Del Method Room Air 07/09/24 11:45 BMI result Body Mass Index 28.5 Const: Other: Chronically ill-appearing, unable to assess orientation General: alert and awake Resp: Effort & Inspection: no respiratory distress and no use of accessory muscles Cardio: Rate: regular rate GI: Other: rectal tube in place Inspection: No distended Palpation (GI): Soft to palpation : Other: Suprapubic catheter/right nephrostomy tube draining clear urine Neuro: Other: alert, nonverbal Extrem: Other: off loading boots in place Objective Data Active Medications Atorvastatin Calcium (Atorvastatin Calcium 80 Mg Tablet) 80 mg PO DAILY [facility] Last Admin: 07/09/24 09:00 Dose: 80 mg Documented By: TOI Collagenase (Collagenase Clostridium Hist. 30 Gm Tube) 1 appl TOPICAL DAILY [facility]; Protocol Last Admin: 07/09/24 09:01 Dose: Not Given Documented By: TOI Non-Admin Reason: completed by previous shift Diphenoxylate HCl/Atropine (Diphenoxylate/Atrop 2.5/0.025 Tablet) 2 tab PO QID [facility] Last Admin: 07/09/24 12:07 Dose: 2 tab Documented By: TOI Ferrous Sulfate (Ferrous Sulfate 324 Mg Tablet.Dr) 324 mg PO DAILY [facility] Last Admin: 07/09/24 09:00 Dose: 324 mg Documented By: TOI Gabapentin (Gabapentin 300 Mg Capsule) 300 mg PO BEDTIME [facility] Last Admin: 07/08/24 20:14 Dose: 300 mg Documented By: IMELDA Linezolid (Zyvox/D5w) 600 mg in 300 mls @ 300 mls/hr IV Q12H [facility] Last Infusion: 07/09/24 07:15 Dose: Infused Documented By: TOI Levetiracetam (Levetiracetam Oral Soln 500 Mg/5 Ml) 250 mg PO BID [facility] Last Admin: 07/09/24 09:00 Dose: 250 mg Documented By: TOI Losartan Potassium (Losartan Potassium 50 Mg Tablet) 100 mg PO DAILY [facility]; Protocol Last Admin: 07/06/24 08:52 Dose: 100 mg Documented By: MOSES Potassium Chloride (Potassium Chloride Er 20 Meq Tab.Er.Prt) 20 meq PO BID [facility] Last Admin: 07/09/24 09:00 Dose: 20 meq Documented By: TOI Rivaroxaban (Rivaroxaban 20 Mg Tablet) 20 mg PO DAILY@1700 [facility] Last Admin: 07/08/24 16:13 Dose: 20 mg Documented By: TOI Sodium Chloride (0.9 % Sodium Chloride Flush 3 Ml Syringe) 3 ml IVFLUSH QSHIFT [facility] Last Admin: 07/09/24 09:00 Dose: 3 ml Documented By: TOI Tamsulosin HCl (Tamsulosin Hcl 0.4 Mg Capsule) 0.4 mg PO BEDTIME [facility] Last Admin: 07/08/24 20:14 Dose: 0.4 mg Documented By: IMELDA Vancomycin HCl (Vancomycin Hcl Oral Solution 125 Mg/5 Ml Soln.Recon) 125 mg PO Q6H [facility] Stop: 07/15/24 05:59 Last Admin: 07/09/24 12:07 Dose: 125 mg Documented By: TOI Labs 07/08/24 05:30 07/08/24 05:30 Assessment and Plan (1) Septic shock: Status: Acute (2) Stage 4 pressure ulcer: Status: Acute Plan This is a 68yo male who is LTC resident of [facility], nonverbal with history of vascular dementia, CVA with R-sided hemiparesis, neurogenic bladder with chronic SPT, stage 4 sacral decubitus ulcer, hx C. difficile colitis, seizure disorder, HTN, HLD, reportedly no urinary output for 8 days prior to admission. patient with poor response to IVF and required admission to the ICU for pressor support. 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 x4 weeks, started 06/29/2024 ID consult> ok for oral zyvox on dc Wound care Frequent repositioning, air loss mattress Outpatient follow-up in W[facility] Care Clinic Hypokalemia Likely secondary to GI loss from diarrhea Resolved with replacement, continue po replacement while having diarrhea pneumonia s/p meropenem Septic Shock Possibly secondary to urinary tract infection s/p Levophed, blood pressure stable CT abdomen and pelvis showing some evidence of pneumonia, sacral osteomyelitis, pseudo-obstruction of the colon Blood cx coag neg staph, 1/2 likely contamination UA culture negative Cdiff diarhea s/p metronidazole>cdif PCR positive, toxin A/B negative po vanco for duration of linezolid therapy and then 48 hours afterward per ID recommendation imodium changed to lomotil, will attemp to remove rectal tube History of CVA Currently bed-bound nonverbal with significant contractures Dysphagia Cleared for NDD1 diet; total supervision Aspiration precautions MBSS can be done outpatient Chronic anemia H/H has been stable transfuse for hemoglobin less than 7 grams/deciliter Continue home iron supplementation PAF Continue Xarelto h/o seizure d/o Continue keppra HTN BP soft this afternoon, responded to IV fluid Hold losartan for now BPH Continue flomax Chronic pain Resume oxycodone right great toe DTI present on admission - continue heel boot protectors DVT prophylaxis with xarelto Pt needs continued hospitalization due to persistent watery diarrhea with rectal tube in place. 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
[2024-07-09 15:32] VITALS: BP 127/65; PULSE 74; RESP 17; TEMP 36.3; O2SAT 94
[2024-07-09] MEDS: Rivaroxaban 20 MG TABLET PO (17:08)
--- NOTE | 2024-07-09 18:40 | PC.NURSE ---
Rectal tube removed at 1400. No stools since removal of tube
[2024-07-09 19:43] VITALS: BP 158/96; PULSE 80; RESP 16; TEMP 36.1; O2SAT 95
[2024-07-09] MEDS: Gabapentin 300 MG CAPSULE PO (20:05)
[2024-07-09] MEDS: Tamsulosin HCL 0.4 MG CAPSULE PO (20:05)
[2024-07-10] MEDS: vancomycin HCL Oral Solution 125 MG/5 ML SOLN.RECON PO ×2 (05:26→13:06)
[2024-07-10] MEDS: Linezolid/D5W 600 MG/300 ML PIGGYBACK 300 MG IV (05:47)
[2024-07-10 06:00] VITALS: BMI 28.6
[2024-07-10 07:52] VITALS: BP 108/64; PULSE 84; RESP 16; TEMP 37.1
--- NOTE | 2024-07-10 09:27 | P.PNIM_ITS ---
Subjective Subjective Date of Service: 07/10/24 Interval History: seen and examined this morning follow up osteo, diarrhea awake, alert non-verbal rectal tube removed Review of Systems Unable to obtain review of systems Physical Exam 2 Vital Signs: Vital Signs: Last Vital Signs Temp 98.8 F 07/10/24 07:52 Pulse 84 07/10/24 07:52 Resp 16 07/10/24 07:52 BP 108/64 07/10/24 07:52 Pulse Ox 95 07/09/24 19:43 O2 Del Method Room Air 07/10/24 07:52 BMI result Body Mass Index 28.6 Const: Other: Chronically ill-appearing, unable to assess orientation General: alert and awake Resp: Effort & Inspection: no respiratory distress and no use of accessory muscles Cardio: Rate: regular rate GI: Other: rectal tube in place Inspection: No distended Palpation (GI): Soft to palpation : Other: Suprapubic catheter/right nephrostomy tube draining clear urine Neuro: Other: alert, nonverbal Extrem: Other: off loading boots in place Objective Data Active Medications Atorvastatin Calcium (Atorvastatin Calcium 80 Mg Tablet) 80 mg PO DAILY [facility] Last Admin: 07/09/24 09:00 Dose: 80 mg Documented By: TOI Collagenase (Collagenase Clostridium Hist. 30 Gm Tube) 1 appl TOPICAL DAILY [facility]; Protocol Last Admin: 07/09/24 09:01 Dose: Not Given Documented By: TOI Non-Admin Reason: completed by previous shift Diphenoxylate HCl/Atropine (Diphenoxylate/Atrop 2.5/0.025 Tablet) 2 tab PO QID [facility] Last Admin: 07/09/24 20:04 Dose: 2 tab Documented By: IMELDA Ferrous Sulfate (Ferrous Sulfate 324 Mg Tablet.) 324 mg PO DAILY [facility] Last Admin: 07/09/24 09:00 Dose: 324 mg Documented By: TOI Gabapentin (Gabapentin 300 Mg Capsule) 300 mg PO BEDTIME [facility] Last Admin: 07/09/24 20:05 Dose: 300 mg Documented By: IMELDA Linezolid (Zyvox/D5w) 600 mg in 300 mls @ 300 mls/hr IV Q12H [facility] Last Infusion: 07/10/24 07:22 Dose: Infused Documented By: GIANLUCA Levetiracetam (Levetiracetam Oral Soln 500 Mg/5 Ml) 250 mg PO BID [facility] Last Admin: 07/09/24 20:05 Dose: 250 mg Documented By: IMELDA Losartan Potassium (Losartan Potassium 50 Mg Tablet) 100 mg PO DAILY [facility]; Protocol Last Admin: 07/06/24 08:52 Dose: 100 mg Documented By: MOSES Potassium Chloride (Potassium Chloride Er 20 Meq Tab.Er.Prt) 20 meq PO BID [facility] Last Admin: 07/09/24 20:05 Dose: 20 meq Documented By: IMELDA Rivaroxaban (Rivaroxaban 20 Mg Tablet) 20 mg PO DAILY@1700 [facility] Last Admin: 07/09/24 17:08 Dose: 20 mg Documented By: TOI Sodium Chloride (0.9 % Sodium Chloride Flush 3 Ml Syringe) 3 ml IVFLUSH QSHIFT [facility] Last Admin: 07/09/24 20:15 Dose: 3 ml Documented By: IMELDA Tamsulosin HCl (Tamsulosin Hcl 0.4 Mg Capsule) 0.4 mg PO BEDTIME [facility] Last Admin: 07/09/24 20:05 Dose: 0.4 mg Documented By: IMELDA Vancomycin HCl (Vancomycin Hcl Oral Solution 125 Mg/5 Ml Soln.Recon) 125 mg PO Q6H [facility] Stop: 07/15/24 05:59 Last Admin: 07/10/24 05:26 Dose: 125 mg Documented By: IMELDA Labs 07/08/24 05:30 07/08/24 05:30 Assessment and Plan (1) Septic shock: Status: Acute (2) Stage 4 pressure ulcer: Status: Acute Plan This is a 68yo male who is LTC resident of [facility], nonverbal with history of vascular dementia, CVA with R-sided hemiparesis, neurogenic bladder with chronic SPT, stage 4 sacral decubitus ulcer, hx C. difficile colitis, seizure disorder, HTN, HLD, reportedly no urinary output for 8 days prior to admission. patient with poor response to IVF and required admission to the ICU for pressor support. 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 x4 weeks, started 06/29/2024, ends July 27 2024 ID consult> ok for oral zyvox on dc Wound care Frequent repositioning, air loss mattress Outpatient follow-up in Wound Care Clinic Hypokalemia Likely secondary to GI loss from diarrhea Resolved with replacement, continue po replacement while having diarrhea --resolved pneumonia s/p meropenem Septic Shock Possibly secondary to urinary tract infection s/p Levophed, blood pressure stable CT abdomen and pelvis showing some evidence of pneumonia, sacral osteomyelitis, pseudo-obstruction of the colon Blood cx coag neg staph, 1/2 likely contamination UA culture negative Cdiff diarhea s/p metronidazole>cdif PCR positive, toxin A/B negative po vanco for duration of linezolid therapy and then 48 hours afterward per ID recommendation imodium changed to lomotil, will attemp to remove rectal tube History of CVA Currently bed-bound nonverbal with significant contractures Dysphagia Cleared for NDD1 diet; total supervision Aspiration precautions MBSS can be done outpatient Chronic anemia H/H has been stable transfuse for hemoglobin less than 7 grams/deciliter Continue home iron supplementation PAF Continue Xarelto h/o seizure d/o Continue keppra HTN BP soft this afternoon, responded to IV fluid Hold losartan for now BPH Continue flomax Chronic pain Resume oxycodone right great toe DTI present on admission - continue heel boot protectors DVT prophylaxis with xarelto Pt needs continued hospitalization due to persistent watery diarrhea with rectal tube in place. 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
[2024-07-10] MEDS: Diphenoxylate/Atrop 2.5/0.025 TABLET 2 TAB PO ×2 (10:21→13:06)
[2024-07-10] MEDS: Ferrous Sulfate 324 MG TABLET.DR PO (10:22)
[2024-07-10] MEDS: Potassium Chloride ER 20 MEQ TAB.ER.PRT PO (10:22)
[2024-07-10] MEDS: levETIRAcetam Oral Soln 500 MG/5 ML 250 MG PO (10:22)
[2024-07-10] MEDS: Atorvastatin Calcium 80 MG TABLET PO (10:22)
[2024-07-10] MEDS: Collagenase Clostridium Hist. 30 GM TUBE 1 APPL TOPICAL (10:23)
[2024-07-10 10:27] LABS: Anion Gap 12 (12-20); Blood Urea Nitrogen 22 mg/dL (9-16); Calcium 8.6 mg/dL (8.4-10.2); Carbon Dioxide 25 mmol/L (22-29); Chloride 102 mmol/L (96-108); Creatinine Clr Calc Pharmacy 44.7; Estimated Glomerular Filt Rate 46; Glucose Random 106 mg/dL (60-115); Potassium 4.4 mmol/L (3.3-5.1); Sodium 135 mmol/L (135-145)
[2024-07-10] MEDS: 0.9 % Sodium Chloride Flush 3 ML SYRINGE IVFLUSH (10:31)
--- NOTE | 2024-07-10 10:40 | P.DS_ITS ---
DS: Providers Provider Date of Service: 07/10/24 Date of admission: 06/29/24 11:26 Date of discharge: 07/10/24 Primary care physician: Lorraine Wiley MD Consults: 06/29/24 10:40 Consult to Wound Care Routine Reason for consultation: extensive stage IV pressure ulcers to coccxy and right buttocks 06/29/24 17:25 Consult to Wound Care Routine Reason for consultation: sacral wound 06/30/24 17:26 Consult to Infectious Diseases Routine Consulting Provider: [facility] Reason for consultation: urosepsis, bacteremia, cdif colonization; chronic decub ulcer Has provider been notified: No DS: Diagnosis Discharge Diagnosis (1) Septic shock: Status: Acute (2) Stage 4 pressure ulcer: Status: Acute DS: Summary Hospital Course Hospital Course: Admission HPI Chief Complaint: Shock History is limited as patient is nonverbal 68-year-old male resident of [facility] with complex multiple medical problems not limited to vascular dementia, CVA with R-sided hemiparesis- nonverbal, neurogenic bladder with chronic SPT, stage 4 sacral decubitus ulcer, hx C. difficile colitis, seizure disorder, HTN, HLD, chronic suprapubic catheter and left-sided nephrostomy, sacral decubitus ulcers x2 presented to the ED due to fever and decreased responsiveness from the rehab. Unable to obtain any further history. In the ED he was found to be in shock critical bolus fluids without much improvement in blood pressures, so Levophed restarted and medical ICU was consulted for admission. Possible source of shock is urinary infection, patient has a history of ESBL UTI in the past. Has lactic acidosis of 2.5, CT abdomen and pelvis showing sacral osteomyelitis, possible pseudo-obstruction of colon. Hospital course: This is a 68yo male who is LTC resident of [facility] nonverbal with history of vascular dementia, CVA with R-sided hemiparesis, neurogenic bladder with chronic SPT, stage 4 sacral decubitus ulcer, hx C. difficile colitis, seizure disorder, HTN, HLD, reportedly no urinary output for 8 days prior to admission. 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 Patient was treated with IV vancomycin and Zosyn, later transitioned to linezolid 600 mg b.i.d. for 4 weeks, starting on 06/29/2024 and scheduled to complete on 07/27/2024. He required vasopressor support while in the ICU. Wound care Frequent repositioning, air-loss mattress Outpatient follow-up in Wound Care Clinic Hypokalemia Likely secondary to GI loss from diarrhea Resolved with replacement, continue po replacement while having diarrhea --resolved pneumonia, completed treatment with Vanco, Zosyn and Meropenem Cdiff diarhea s/p metronidazole>cdif PCR positive, toxin A/B negative po vanco for duration of linezolid therapy and then 48 hours afterward per ID recommendation mike. Had rectal tube removed yesterday History of CVA Currently bed-bound nonverbal with significant contractures Dysphagia Cleared for NDD1 diet; total supervision Aspiration precautions MBSS can be done outpatient Chronic anemia H/H has been stable transfuse for hemoglobin less than 7 grams/deciliter Continue home iron supplementation PAF Continue Xarelto h/o seizure d/o Continue keppra HTN, stop Losartan due to soft BPs BPH Continue flomax Chronic pain Resume oxycodone Continue suprapubic cath Time Attestation Discharge Coordination Time (in mins): 45 Quality: Safe Use of Opioids Does Pt have an Active Cancer Diagnosis on the Problem List?: No Quality: Stroke Does the patient have a stroke diagnosis?: No Physical Exam Vital Signs: Vital Signs: Last Vital Signs Temp 98.8 F 07/10/24 07:52 Pulse 84 07/10/24 07:52 Resp 16 07/10/24 07:52 BP 108/64 07/10/24 07:52 Pulse Ox 95 07/09/24 19:43 O2 Del Method Room Air 07/10/24 07:52 BMI result Body Mass Index 28.6 DS: Data Data Completed and Pending Completed studies during hospitalization [Text1]: Procedures Change Drainage Device in Bladder, External Approach (04/19/24) Drainage of Bladder with Drainage Device, Percutaneous Endoscopic Approach (06/23/21) Fluoroscopy of Superior Vena Cava, Guidance (04/19/24) Insertion of Infusion Device into Superior Vena Cava, Percutaneous Approach (04/19/24) Introduction of Vasopressor into Peripheral Vein, Percutaneous Approach (04/19/24) Transfusion of Nonautologous Red Blood Cells into Peripheral Vein, Percutaneous Approach (12/23/22) Labs on day of discharge: Laboratory Results - last 24 hr 07/10/24 09:55 Sodium 135 Potassium 4.4 D Chloride 102 Carbon Dioxide 25 Anion Gap 12 BUN 22 H Creatinine 1.50 H Estim Creat Clear Calc 44.7 Estimated GFR 46 Random Glucose 106 Calcium 8.6 D Discharge Plan Discharge Anticipated Discharge Date/Time: 07/10/24 12:44 Patient Disposition: Xfer SNF Discharge Diagnosis: Septic shock, UIT, Cdif, Referrals: Lorraine Wiley MD [Primary Care Provider] - 1 Week Discharge Medications: New potassium chloride 20 mEq Tablet,Er Particles/Crystals 20 meq PO BID Qty: 60 0RF linezolid [Zyvox] 600 mg tablet 600 mg PO BID Qty: 34 0RF vancomycin [Firvanq] 25 mg/mL Recon Soln 125 mg PO Q6H Qty: 76 0RF Continued (DME) wet wipes See Rx Instructions .ROUTE .MEDSUPPLY Qty: 5 3RF Rx Instructions: As directed levetiracetam 100 mg/mL solution 2.5 ml PO BID acetaminophen 325 mg Tablet 650 mg PO Q4H PRN (Reason: fever/pain) calcium carbonate-vitamin D3 600 mg-5 mcg (200 unit) Tablet 1 tab PO BID magnesium hydroxide [Milk of Magnesia] 400 mg/5 mL Suspension 30 ml PO DAILY PRN (Reason: No BM in 3 Days) Rx Instructions: (step 1) If no BM for 3 days Fleet Enema 19-7 gram/118 mL Enema 118 ml WI DAILY PRN (Reason: If no BM in 8 hours after use of Bisacodyl) Rx Instructions: (Step 3) If no BM 8 hours after Bisacodyl supp. magnesium citrate Solution 150 ml PO DAILY PRN (Reason: No BM in 12 hrs) Rx Instructions: (step 4) If no BM in 12 hours give 1 bottle ferrous sulfate 325 mg (65 mg iron) Tablet 325 mg PO DAILY multivitamin Tablet 1 tab PO DAILY psyllium Powder 1 ea PO BEDTIME Rx Instructions: mix into at least 8 oz of water or juice before administering sodium hypochlorite 0.125 % Solution 1 appl TOPICAL BEDTIME Rx Instructions: APPLY TO COCCYX WOUND TOPICALLY EVERY [employer]ITY SERVICES MANAGER FOR WOUND CARE TO PRESSURE AREA, CLEANSE WITH DAKIN'S SOLUTION, PACK WITH HYDRAFERA BLUE, COVER WITH DRY CLEAN DRESSING DAILY. oxycodone 5 mg Tablet 5 mg PO DAILY PRN (Reason: Pain/Wound Management) simethicone 80 mg Tablet,Chewable 80 mg PO Q6H PRN (Reason: Abdominal Distention) acetaminophen [Tylenol] 325 mg Tablet 650 mg PO BEDTIME acetic acid 0.25 % Solution 50 ml IRRIGATION TUTHSA@2100 Rx Instructions: for urinary catheter flush Santyl 250 unit/gram Ointment 1 appl TOPICAL DAILY Rx Instructions: Cleans right hip with normal saline, then apply Santyl, Cover with dry clean dressing oxycodone 5 mg tablet 5 mg PO DAILY gabapentin 300 mg capsule 300 mg PO BEDTIME 30 Days Qty: 30 0RF (DME) miscellaneous medical supply Misc See Rx Instructions .ROUTE .MEDSUPPLY Qty: 1 0RF Rx Instructions: RUE resting hand Splint/Sling As directed, Dx: G81.91, I67.89, duration 999 days/life time tamsulosin 0.4 mg capsule 0.4 mg PO BEDTIME 90 Days Qty: 90 1RF Xarelto 20 mg tablet 20 mg PO DAILY@1700 atorvastatin 80 mg tablet 80 mg PO DAILY ascorbic acid (vitamin C) 1,000 mg tablet 1,000 mg PO DAILY 90 Days Qty: 90 1RF methenamine hippurate 1 gram tablet 1 g PO daily 90 Days Qty: 90 1RF Discontinued bisacodyl 10 mg Suppository 10 mg WI DAILY PRN (Reason: If no BM in 8 hours after use of MoM) potassium chloride 20 mEq/15 mL liquid 30 meq PO BID losartan 100 mg tablet 100 mg PO DAILY 90 Days Qty: 90 4RF Discharge Orders: Discharge Order (Routine); Ordered 07/10/24 Ordered By: Scout Camara Diet: Puree, honey thick Activity on Discharge: As tolerated Stand Alone Forms: Patient Portal Discharge page Print Language: Cambodian Activity Restrictions/Additional Instructions: Topical Wound Care Recommendations: Sacrum ? Off Load Pressure with Q2 hr turns and use of pillows Cleanse and irrigate with NS, Pat dry.? Apply barrier to periwound, lightly pack with Durafiber AG, be sure to leave a wick to easy removal.? Cover with Foam dressing.? Change every other day. Right Ischium - Off Load Pressure with Q2 hr turns and use of pillows Cleanse with normal saline, pat dry. ?Apply barrier to the immediate anshul wound, apply thick layer of Santyl to dry gauze and lightly pack into wound bed, cover with dry gauze, ABD pad and gauze wrap, change Daily. Right Great Toe - Apply Skin prep allow to dry. Continue use of heel boot protector. Care Plan Goals: recovery from sepsis shock, osteomylitis and UTI, pneumonia and Cdif [facility] Concerns: same as above Plan of Treatment: Take Zyvox 600 mg twice daily until July 27 Take Vancomycin until July 29 diet: Puree food, honey thick liquid and one to one feed Assessment: see above Discharge Date/Time: 07/10/24 14:11
--- NOTE | 2024-07-10 13:15 | MHC.CM.PN ---
Patient medically cleared for dc back to LTC @ [facility]. BLS transport scheduled for 2pm. MD CHEO and HCP/son aware. IMM delivered.
[2024-07-10 14:08] VITALS: BP 134/64; PULSE 88; RESP 14; TEMP 37.6; O2SAT 91
== END 2024-07-10 14:11 | disposition skilled nursing facility (03) | DRG 871 ==
LOC: HO.ED 11:24 → HO.EDOVER 11:32 → HO.ICU 11:48 → HO.IMC 06-30 13:59 → HO.S3 07-05 13:16
PROVIDERS: Nurse Practitioner Acute Care; Physician Assistant Medical; Student in an Organized Health Care Education/Training Program; Admitting Provider Internal Medicine Critical Care Medicine; Emergency Provider Emergency Medicine; PCP Internal Medicine; Visit Provider Internal Medicine
DX: A41.9 Sepsis, unspecified organism (principal); J18.9 Pneumonia, unspecified organism; L89.154 Pressure ulcer of sacral region, stage 4; L89.314 Pressure ulcer of right buttock, stage 4; R65.21 Severe sepsis with septic shock; M46.28 Osteomyelitis of vertebra, sacral and sacrococcygeal region; I69.351 Hemiplegia and hemiparesis following cerebral infarction affecting right dominant side; N39.0 Urinary tract infection, site not specified; A04.71 Enterocolitis due to Clostridium difficile, recurrent; I48.0 Paroxysmal atrial fibrillation; I10 Essential (primary) hypertension; L89.896 Pressure-induced deep tissue damage of other site; D64.9 Anemia, unspecified; N40.0 Benign prostatic hyperplasia without lower urinary tract symptoms; G89.29 Other chronic pain; E87.6 Hypokalemia; G40.909 Epilepsy, unspecified, not intractable, without status epilepticus; R13.10 Dysphagia, unspecified; I69.398 Other sequelae of cerebral infarction; F01.50 Vascular dementia, unspecified severity, without behavioral disturbance, psychotic disturbance, mood disturbance, and anxiety; N31.8 Other neuromuscular dysfunction of bladder; Z20.822 Contact with and (suspected) exposure to COVID-19; Z93.50 Unspecified cystostomy status; Z93.6 Other artificial openings of urinary tract status; Z87.440 Personal history of urinary (tract) infections; Z74.01 Bed confinement status; Z79.01 Long term (current) use of anticoagulants; Z79.899 Other long term (current) drug therapy
CPT/HCPCS: 0241U; 36415; 70450; 71045; 72125; 74177; 80048; 80053; 80076; 81001; 83605; 83690; 83735; 84100; 84484; 85014; 85018; 85025; 85027; 85610; 87040; 87086; 87147; 87205; 87324; 87493; 92526; 92610; 93005; 99285; J0131; J1650; J1836; J2020; J2185; J2543; J3371; J3475; J3480; J7120; P9047; Q9967

== ENCOUNTER → 2024-06-29 09:11 | Outpatient (BNV) | payer OTHER, SELFPAY | PROVIDERS: Emergency Provider Emergency Medicine; PCP Internal Medicine; Visit Provider Radiology Diagnostic Radiology | DX: K59.89 Other specified functional intestinal disorders (principal); S09.90XA Unspecified injury of head, initial encounter; R41.82 Altered mental status, unspecified | CPT/HCPCS: 70450; 71045; 72125; 74177 ==

== ENCOUNTER → 2024-06-29 09:11 | Outpatient (BNV) | payer OTHER, SELFPAY | PROVIDERS: Admitting Provider Internal Medicine Critical Care Medicine; Emergency Provider Emergency Medicine; PCP Internal Medicine; Visit Provider Internal Medicine | DX: R41.82 Altered mental status, unspecified (principal) | CPT/HCPCS: 93010 ==

== ENCOUNTER → 2024-06-29 11:26 | Outpatient (BNV) | payer OTHER, SELFPAY | PROVIDERS: Admitting Provider Internal Medicine Critical Care Medicine; Emergency Provider Emergency Medicine; PCP Internal Medicine; Visit Provider Physician Assistant Medical | DX: R13.10 Dysphagia, unspecified (principal) | CPT/HCPCS: 99232; 99499 ==

== ENCOUNTER → 2024-06-29 11:26 | Outpatient (BNV) | payer OTHER, SELFPAY | PROVIDERS: Admitting Provider Internal Medicine Critical Care Medicine; Emergency Provider Emergency Medicine; PCP Internal Medicine; Visit Provider Internal Medicine | DX: L89.94 Pressure ulcer of unspecified site, stage 4 (principal) | CPT/HCPCS: 99222 ==

== ENCOUNTER → 2024-06-29 11:26 | Outpatient (BNV) | payer OTHER, SELFPAY | PROVIDERS: Admitting Provider Internal Medicine Critical Care Medicine; Emergency Provider Emergency Medicine; PCP Internal Medicine; Visit Provider Internal Medicine Critical Care Medicine | DX: N17.9 Acute kidney failure, unspecified (principal); N20.0 Calculus of kidney; Z98.890 Other specified postprocedural states; N39.0 Urinary tract infection, site not specified; B96.29 Other Escherichia coli [E. coli] as the cause of diseases classified elsewhere; Z16.12 Extended spectrum beta lactamase (ESBL) resistance; T83.511A Infection and inflammatory reaction due to indwelling urethral catheter, initial encounter | CPT/HCPCS: 99223 ==

== ENCOUNTER 2024-07-18 17:15 | Emergency (ER) | payer OTHER, SELFPAY ==
[2024-07-18 17:32] VITALS: BP 146/88; PULSE 86; O2SAT 95; BMI 22.9
--- NOTE | 2024-07-18 17:56 | ED_ITS ---
HPI - Recheck/Abnormal Lab/Rx General Chief Complaint: Recheck/Abnormal Lab/Rx Stated Complaint: low Hemoblobin Time Seen by Provider: 07/18/24 17:30 Source: RN notes reviewed and other (SNF records) Mode of arrival: EMS Limitations: physical limitation (CVA, nonverbal) History of Present Illness ED Provider: Dr. Geneva Webb HPI narrative: 68-year-old male with extensive past medical history including vascular dementia, CVA with right-sided hemiparesis, nonverbal, neurogenic bladder with suprapubic catheter in place, stage IV decubitus ulcers, current infection with C diff colitis on oral vancomycin, seizure disorder, hypertension and hyperlipidemia presenting with reportedly low H&H from the [facility]. Patient is unable to provide any history secondary to his nonverbal status. Review of record shows that his H and H has been steadily downtrending for the last 4 months. Four months ago, hemoglobin was 10.9, now down to 6.5 today. No reported bleeding. He does take Xarelto for his CVA history. Of note, patient was recently discharged from this facility on 07/10/2024 for an episode of unresponsiveness. At that time he was anemic with an H&H of 8.2/24.8. Of note, his creatinine had been up trending to 1.5 from 0.76 about 2 days prior. He has no history of renal dysfunction. Related Data Home Medications ?Medication ?Instructions ?Recorded ?Confirmed acetaminophen 325 mg tablet 650 mg PO Q4H PRN fever/pain 02/16/21 06/29/24 calcium 600 mg (as 1 tab PO BID 02/16/21 06/29/24 carbonate)-vitamin D3 5 mcg (200 unit) tablet magnesium hydroxide 400 mg/5 mL 30 ml PO DAILY PRN No BM in 3 Days 02/16/21 06/29/24 oral suspension (Milk of Magnesia) levetiracetam 100 mg/mL oral 2.5 ml PO BID 02/26/21 06/29/24 solution atorvastatin 80 mg tablet 80 mg PO DAILY 01/26/22 06/29/24 rivaroxaban 20 mg tablet (Xarelto) 20 mg PO DAILY@1700 01/26/22 06/29/24 magnesium citrate 150 ml PO DAILY PRN No BM in 12 hrs 02/15/22 06/29/24 sodium phosphates 19 gram-7 118 ml CA DAILY PRN If no BM in 8 02/15/22 06/29/24 gram/118 mL enema (Fleet Enema) hours after use of Bisacodyl acetaminophen 325 mg tablet 650 mg PO BEDTIME 10/03/22 06/29/24 (Tylenol) acetic acid 0.25 % irrigation 50 ml irrigation TUTHSA@2100 10/03/22 06/29/24 solution ferrous sulfate 325 mg (65 mg 325 mg PO DAILY 12/22/22 06/29/24 iron) tablet multivitamin 1 tab PO DAILY 01/18/24 06/29/24 psyllium 1 ea PO BEDTIME 01/18/24 06/29/24 sodium hypochlorite 0.125 % 1 appl topical BEDTIME 01/18/24 06/29/24 solution oxycodone 5 mg tablet 5 mg PO DAILY PRN Pain/Wound 04/19/24 06/29/24 Management simethicone 80 mg chewable tablet 80 mg PO Q6H PRN Abdominal 04/19/24 06/29/24 Distention collagenase clostridium histo. 250 1 appl topical DAILY 06/29/24 06/29/24 unit/gram topical ointment (Santyl) oxycodone 5 mg tablet 5 mg PO DAILY 06/29/24 06/29/24 Previous Rx's ?Medication ?Instructions ?Recorded wet wipes #5 multiple units 03/12/20 tamsulosin 0.4 mg capsule 0.4 mg PO BEDTIME 90 days #90 caps 03/22/20 gabapentin 300 mg capsule 300 mg PO BEDTIME 30 days #30 caps 03/27/20 miscellaneous medical supply #1 ea 03/27/20 ascorbic acid (vitamin C) 1,000 mg 1,000 mg PO DAILY 90 days #90 tabs 01/27/22 tablet methenamine hippurate 1 gram tablet 1 g PO daily 90 days #90 tabs 01/27/22 linezolid 600 mg tablet (Zyvox) 600 mg PO BID #34 tabs 07/10/24 potassium chloride 20 mEq 20 meq PO BID #60 tabs 07/10/24 tablet,extended release(part/cryst) vancomycin 25 mg/mL oral solution 125 mg (5 mL) PO Q6H #76 mL 07/10/24 (Firvanq) Allergies Allergy/AdvReac Type Severity Reaction Status Date / Time No Known Allergies Allergy Verified 07/18/24 17:37 [No Known Allergies*] Review of Systems 2 Review of Systems: Yes Unobtainable due to mental condition (CVA, nonverbal) [facility] Past Medical History Source: old records reviewed and nursing notes reviewed Medical History 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 Mother No problems noted. Social History Social History Household Members: None and Other Household Members Other:: SNF Housing: Assisted Are you a primary healthcare corporate account director to a significant other at home: No Do you presently have visiting nurse or other home services: Yes Unable to assess alcohol history related to: Unable to respond Alcohol intake: former Comment: patient sleeping Patient Tobacco Use Status: Tobacco use Unknown Second Hand Smoke Exposure: No Use of substances other than those prescribed or required for medical reasons: Unable to respond Advance Directives: Yes Advance Directives on File: Yes Advance Directives Date on File: 02/14/20 service: No Current occupational status: disabled Physical Exam 2 Vital Signs: Vital Signs: Last Vital Signs Temp 98.0 F 07/19/24 01:08 Pulse 89 07/19/24 01:08 Resp 20 07/19/24 01:08 BP 124/57 L 07/19/24 01:08 Pulse Ox 97 07/18/24 23:28 O2 Del Method Room Air 07/18/24 23:28 BMI result Body Mass Index 22.9 Exam: Constitutional: ?Chronically ill-appearing, no acute distress, nonverbal HEENT: ?No lymphadenopathy, neck is supple, trachea midline, PERRLA, EOMI, no nystagmus Chest: ?Equal rise, no crepitus, no deformities Respiratory: ?Lungs are clear to auscultation bilaterally, no wheezes/rales/rhonchi Cardio: ?Regular rate and rhythm, no murmurs rubs or gallops, peripheral pulses strong GI: ?Soft, nondistended, positive bowel sounds in all quadrants : Deferred Skin: ?Warm, dry, sacral decubitus ulcers stage IV Musculoskeletal: ?No deformities, spastic contractions of the right upper extremity, neurovascularly intact distally Neuro: ?Alert, cranial nerves 2-12 intact, chronic contractures of the right upper extremity Medical Decision Making Medical Decision Making MDM Narrative: 68-year-old male with extensive past medical history, [facility]-bound from a [facility] presenting with reported anemia as low as 6.5 hemoglobin. During his admission about a week ago, his hemoglobin was 8.2. We will repeat the labs and re-evaluate. He has no evidence of active GI bleed or bleeding elsewhere. Hemodynamically stable. 7:18 p.m. hemoglobin noted to be 6.5 on repeat here in the emergency department. We will order a unit of PRBCs. Patient remains hemodynamically stable, resting comfortably. 2:04 a.m. patient continues to receive blood products. Awaiting transfer back to nursing facility. Differential Diagnosis Differential Diagnoses: The differential diagnosis associated with the presentation includes (Lab error, chronic anemia, GI bleeding, renal failure, bone marrow failure, among others) Admission/Observation Consideration of admission/observation: Escalation of care including admission/observation considered Lab Data MDM Lab Attestation statement: I reviewed the patient's lab results. 07/18/24 18:45 07/18/24 18:45 Labs: Lab Results 07/18/24 07/18/24 Range/Units 18:45 19:36 WBC 4.1 L (4.8-10.8) X10*3/uL RBC 2.08 L (4.60-5.80) X10*6/uL Hgb 6.5 L* D (14.0-18.0) g/dl Hct 20.5 L* (42.0-52.0) % MCV 98.6 H (80.0-98.0) fL MCH 31.3 (27.0-33.0) pg MCHC 31.7 (31.0-36.0) g/dl RDW 13.7 (11.0-16.0) % Plt Count 107 L D (160-400) X10*3/uL MPV 9.6 (9.4-12.4) fL Immature Gran % (Auto) 0.2 (0.0-0.4) % Neut % (Auto) 56.6 (45-73) % Lymph % (Auto) 25.3 (20-40) % Vernon % (Auto) 13.3 H (2-11) % Eos % (Auto) 4.4 H (0-4) % Baso % (Auto) 0.2 (0-2) % Lymph # (Auto) 1.0 L (1.2-4.9) X10*3/uL Vernon # (Auto) 0.5 (0.1-1.2) X10*3/uL Eos # (Auto) 0.2 (0.0-0.4) X10*3/uL Baso # (Auto) 0.0 (0.0-0.2) X10*3/uL Abs Immat Gran (auto) 0.01 (0.00-0.03) X10*3/uL Absolute Neuts (auto) 2.3 (2.0-8.3) x10*3/uL Absolute Nucleated RBC 0.000 (0.0-0.012) X10*3/uL Nucleated RBC % (auto) 0.0 (0.0-0.2) /100WBC PT 16.0 H (10.9-12.4) SEC INR 1.4 H (0.9-1.1) Sodium 147 H (135-145) mmol/L Potassium 4.2 (3.3-5.1) mmol/L Chloride 110 H (96-108) mmol/L Carbon Dioxide 29 (22-29) mmol/L Anion Gap 12 (12-20) BUN 43 H (9-16) mg/dL Creatinine 1.57 H (0.5-1.4) mg/dL Estim Creat Clear Calc 44.1 Estimated GFR 44 Random Glucose 114 (60-115) mg/dL Calcium 9.0 (8.4-10.2) mg/dL Blood Type A Positive Antibody Screen NEGATIVE Crossmatch See Detail Independent Historian Clinical information obtained from an independent historian. History obtained from or confirmed by: EMS and Other (son) External Record Review External record reviewed: Outpatient record and Prior outpatient labs Chronic Conditions Patient?s care impacted by: Diabetes, Hypertension and Other (CVA) Procedures Procedure Narrative Procedure Narrative: Ultrasound-guided IV 18 gauge 1-3/4 inch IV placed in left upper extremity, adequate blood return, flushes well secured with Tegaderm. Performed by Raeann Walker PA-C Discharge Plan Discharge Clinical Impression: Acute on chronic anemia, VI (acute kidney injury) Patient Disposition: Xfer SNF Instructions: Blood Transfusion Discharge Instructions Additional Instructions: Repeat a H&H in 2 days. Return to the emergency department with any significant bleeding, deterioration of condition, fever, chest pain or shortness of breath. Follow-up with primary care provider otherwise. Prescriptions: No Action (DME) wet wipes See Rx Instructions .ROUTE .MEDSUPPLY Qty: 5 3RF Rx Instructions: As directed levetiracetam 100 mg/mL solution 2.5 ml PO BID acetaminophen 325 mg Tablet 650 mg PO Q4H PRN (Reason: fever/pain) calcium carbonate-vitamin D3 600 mg-5 mcg (200 unit) Tablet 1 tab PO BID magnesium hydroxide [Milk of Magnesia] 400 mg/5 mL Suspension 30 ml PO DAILY PRN (Reason: No BM in 3 Days) Rx Instructions: (step 1) If no BM for 3 days Fleet Enema 19-7 gram/118 mL Enema 118 ml CA DAILY PRN (Reason: If no BM in 8 hours after use of Bisacodyl) Rx Instructions: (Step 3) If no BM 8 hours after Bisacodyl supp. magnesium citrate Solution 150 ml PO DAILY PRN (Reason: No BM in 12 hrs) Rx Instructions: (step 4) If no BM in 12 hours give 1 bottle ferrous sulfate 325 mg (65 mg iron) Tablet 325 mg PO DAILY multivitamin Tablet 1 tab PO DAILY psyllium Powder 1 ea PO BEDTIME Rx Instructions: mix into at least 8 oz of water or juice before administering sodium hypochlorite 0.125 % Solution 1 appl TOPICAL BEDTIME Rx Instructions: APPLY TO COCCYX WOUND TOPICALLY EVERY SURGICAL DRESSING MAKER FOR WOUND CARE TO PRESSURE AREA, CLEANSE WITH DAKIN'S SOLUTION, PACK WITH HYDRAFERA BLUE, COVER WITH DRY CLEAN DRESSING DAILY. oxycodone 5 mg Tablet 5 mg PO DAILY PRN (Reason: Pain/Wound Management) simethicone 80 mg Tablet,Chewable 80 mg PO Q6H PRN (Reason: Abdominal Distention) acetaminophen [Tylenol] 325 mg Tablet 650 mg PO BEDTIME acetic acid 0.25 % Solution 50 ml IRRIGATION TUTHSA@2100 Rx Instructions: for urinary catheter flush Santyl 250 unit/gram Ointment 1 appl TOPICAL DAILY Rx Instructions: Cleans right hip with normal saline, then apply Santyl, Cover with dry clean dressing oxycodone 5 mg tablet 5 mg PO DAILY potassium chloride 20 mEq Tablet,Er Particles/Crystals 20 meq PO BID Qty: 60 0RF linezolid [Zyvox] 600 mg tablet 600 mg PO BID Qty: 34 0RF vancomycin [Firvanq] 25 mg/mL Recon Soln 125 mg PO Q6H Qty: 76 0RF gabapentin 300 mg capsule 300 mg PO BEDTIME 30 Days Qty: 30 0RF (DME) miscellaneous medical supply Misc See Rx Instructions .ROUTE .MEDSUPPLY Qty: 1 0RF Rx Instructions: RUE resting hand Splint/Sling As directed, Dx: G81.91, I67.89, duration 999 days/life time tamsulosin 0.4 mg capsule 0.4 mg PO BEDTIME 90 Days Qty: 90 1RF Xarelto 20 mg tablet 20 mg PO DAILY@1700 atorvastatin 80 mg tablet 80 mg PO DAILY ascorbic acid (vitamin C) 1,000 mg tablet 1,000 mg PO DAILY 90 Days Qty: 90 1RF methenamine hippurate 1 gram tablet 1 g PO daily 90 Days Qty: 90 1RF Print Language: Irish
[2024-07-18 18:49] LABS: MANUAL DIFF FLAG NO
[2024-07-18 18:57] LABS: Basophils Percent Auto 0.2 % (0-2); Eosinophils Absolute Auto 0.2 X10*3/uL (0.0-0.4); Eosinophils Percent Auto 4.4 % (0-4); Imm Gran Abs Auto 0.01 X10*3/uL (0.00-0.03); Imm Gran Pct Auto 0.2 % (0.0-0.4); Lymphocytes Percent Auto 25.3 % (20-40); Mean Corpuscular HGB Conc 31.7 g/dl (31.0-36.0); Mean Corpuscular Hemoglobin 31.3 pg (27.0-33.0); Mean Corpuscular Volume 98.6 fL (80.0-98.0); Mean Platelet Volume 9.6 fL (9.4-12.4); Monocytes Absolute Auto 0.5 X10*3/uL (0.1-1.2); Monocytes Percent Auto 13.3 % (2-11); Neutrophils Absolute Auto 2.3 x10*3/uL (2.0-8.3); Neutrophils Percent Auto 56.6 % (45-73); Platelet Count 107 X10*3/uL (160-400); Red Blood Count 2.08 X10*6/uL (4.60-5.80); Red Cell Distribution Width 13.7 % (11.0-16.0); White Blood Count 4.1 X10*3/uL (4.8-10.8)
[2024-07-18 19:00] LABS: INTERNATIONAL NORM RATIO 1.4 (0.9-1.1)
[2024-07-18 19:03] LABS: Anion Gap 12 (12-20); Blood Urea Nitrogen 43 mg/dL (9-16); Carbon Dioxide 29 mmol/L (22-29); Chloride 110 mmol/L (96-108); Creatinine Clr Calc Pharmacy 44.1; Estimated Glomerular Filt Rate 44; Glucose Random 114 mg/dL (60-115); Potassium 4.2 mmol/L (3.3-5.1); Sodium 147 mmol/L (135-145)
[2024-07-18 19:12] LABS: Hematocrit 20.5 % (42.0-52.0); Hemoglobin 6.5 g/dl (14.0-18.0)
--- NOTE | 2024-07-18 19:32 | PC.NURSE ---
Charge nurse made this telegraphic typewriter mechanic aware of critical result received of Hgb 6.5 and Hct 20.5. [place] text sent to provider. MDL at bedside attempting an U/S guided IV and type and screen.
[2024-07-18 20:24] VITALS: BP 120/61; PULSE 81; RESP 14; TEMP 36.3; O2SAT 95
[2024-07-18 22:09] VITALS: BP 120/74; PULSE 75; RESP 12; TEMP 36.7
[2024-07-18 22:23] VITALS: BP 119/66; PULSE 85; RESP 14; TEMP 36.7; O2SAT 98
[2024-07-18 22:28] VITALS: BP 134/72; PULSE 82; RESP 12; TEMP 36.6
--- NOTE | 2024-07-18 22:28 | PC.NURSE ---
Pt awake and non verbal. VSS. One unit of RBC started. No sign/symptom of blood reaction. Pt is tolerating it well. Will continue to monitor.
[2024-07-18 23:28] VITALS: BP 133/76; PULSE 94; RESP 16; TEMP 36.7; O2SAT 97
--- NOTE | 2024-07-18 23:42 | MHC.EDTECH ---
This pct assumed care of Patient at 2300 ,vitals taken ,Patient awake ,Patient was reposition and boosted up in bed ,all safety measure in Place .Call giraldo within Pt reach ,Plan of care continue .
[2024-07-19 01:08] VITALS: BP 124/57; PULSE 89; RESP 20; TEMP 36.7
[2024-07-19 02:15] VITALS: BP 114/62; PULSE 81; RESP 16; TEMP 36.3; O2SAT 96
[2024-07-19 03:23] VITALS: BP 124/58; PULSE 81; RESP 13; TEMP 36.3; O2SAT 99
[2024-07-19 03:55] VITALS: BP 124/58; PULSE 81; RESP 13; TEMP 36.3; O2SAT 99
--- NOTE | 2024-07-19 03:55 | PC.NURSE ---
Nurse to nurse report given to nurse James at [facility] [place] as pt is returning via EMS.
== END 2024-07-19 03:56 | disposition skilled nursing facility (03) ==
PROVIDERS: Emergency Provider Emergency Medicine; PCP Internal Medicine
DX: D64.9 Anemia, unspecified (principal); R79.89 Other specified abnormal findings of blood chemistry; F01.50 Vascular dementia, unspecified severity, without behavioral disturbance, psychotic disturbance, mood disturbance, and anxiety; I10 Essential (primary) hypertension; Z86.73 Personal history of transient ischemic attack (TIA), and cerebral infarction without residual deficits; Z79.01 Long term (current) use of anticoagulants; Z79.899 Other long term (current) drug therapy
CPT/HCPCS: 36415; 36430; 80048; 85025; 85610; 86850; 86900; 86901; 86923; 99284; 99285; P9016

== ENCOUNTER 2024-07-26 11:10 | Emergency (ER) | payer OTHER, SELFPAY ==
[2024-07-26] VITALS (20 sets, daily range): BP systolic 111–154; BP diastolic 74–92; PULSE 83–120; RESP 12–22; TEMP 36–37.2; O2SAT 80–100; BMI 23.0
--- NOTE | ~2024-07-26 | XR_ITS ---
EXAMINATION: XR CHEST 1 VIEW HISTORY: cough COMPARISON: Comparison is made with the prior examination dated 06/29/2024. FINDINGS: A single AP portable view of the chest performed at 1:05 PM is submitted. The lungs are expanded and clear. There is no pleural effusion, pneumothorax, or pulmonary vascular congestion. The heart is normal in size. The aorta is calcified. There is degenerative disc disease of the spine. XR/XR chest 1V IMPRESSION: No acute cardiopulmonary abnormality. Electronically signed by: Ho Cruz MD 07/26/2024 01:14 PM EDT
--- NOTE | 2024-07-26 11:43 | ECG_ITS ---
Test Reason : WEAKNESS Blood Pressure : */* mmHG Vent. Rate : 112 BPM Atrial Rate : 112 BPM P-R Int : 140 ms QRS Dur : 70 ms QT Int : 332 ms P-R-T Axes : 27 25 24 degrees QTcB Int : 453 ms Sinus tachycardia Otherwise normal ECG When compared with ECG of 29-Jun-2024 09:29, T wave amplitude has decreased in Lateral leads Referred By: Jennifer Gardiner Electronically Signed By: VINI ROBERT
--- NOTE | 2024-07-26 11:58 | ED.RECABL ---
HPI - Recheck/Abnormal Lab/Rx General Chief Complaint: Recheck/Abnormal Lab/Rx Stated Complaint: ABN LABS,H/O CDIFF FROM SNF PER EMS Time Seen by Provider: 07/26/24 11:54 Source: patient Mode of arrival: EMS Limitations: no limitations History of Present Illness ED Provider: Dr. 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 The patient is not able to provide any history since he is nonverbal. Patient was recently seen in the emergency department on 07/19/2023 for 6.5 transfused PRBCs then discharged back to his facility. Related Data Home Medications ?Medication ?Instructions ?Recorded ?Confirmed acetaminophen 325 mg tablet 650 mg PO Q4H PRN fever/pain 02/16/21 06/29/24 calcium 600 mg (as 1 tab PO BID 02/16/21 06/29/24 carbonate)-vitamin D3 5 mcg (200 unit) tablet magnesium hydroxide 400 mg/5 mL 30 ml PO DAILY PRN No BM in 3 Days 02/16/21 06/29/24 oral suspension (Milk of Magnesia) levetiracetam 100 mg/mL oral 2.5 ml PO BID 02/26/21 06/29/24 solution atorvastatin 80 mg tablet 80 mg PO DAILY 01/26/22 06/29/24 rivaroxaban 20 mg tablet (Xarelto) 20 mg PO DAILY@1700 01/26/22 06/29/24 magnesium citrate 150 ml PO DAILY PRN No BM in 12 hrs 02/15/22 06/29/24 sodium phosphates 19 gram-7 118 ml AZ DAILY PRN If no BM in 8 02/15/22 06/29/24 gram/118 mL enema (Fleet Enema) hours after use of Bisacodyl acetaminophen 325 mg tablet 650 mg PO BEDTIME 10/03/22 06/29/24 (Tylenol) acetic acid 0.25 % irrigation 50 ml irrigation TUTHSA@2100 10/03/22 06/29/24 solution ferrous sulfate 325 mg (65 mg 325 mg PO DAILY 12/22/22 06/29/24 iron) tablet multivitamin 1 tab PO DAILY 01/18/24 06/29/24 psyllium 1 ea PO BEDTIME 01/18/24 06/29/24 sodium hypochlorite 0.125 % 1 appl topical BEDTIME 01/18/24 06/29/24 solution oxycodone 5 mg tablet 5 mg PO DAILY PRN Pain/Wound 04/19/24 06/29/24 Management simethicone 80 mg chewable tablet 80 mg PO Q6H PRN Abdominal 04/19/24 06/29/24 Distention collagenase clostridium histo. 250 1 appl topical DAILY 06/29/24 06/29/24 unit/gram topical ointment (Santyl) oxycodone 5 mg tablet 5 mg PO DAILY 06/29/24 06/29/24 Previous Rx's ?Medication ?Instructions ?Recorded wet wipes #5 multiple units 03/12/20 tamsulosin 0.4 mg capsule 0.4 mg PO BEDTIME 90 days #90 caps 03/22/20 gabapentin 300 mg capsule 300 mg PO BEDTIME 30 days #30 caps 03/27/20 miscellaneous medical supply #1 ea 03/27/20 ascorbic acid (vitamin C) 1,000 mg 1,000 mg PO DAILY 90 days #90 tabs 01/27/22 tablet methenamine hippurate 1 gram tablet 1 g PO daily 90 days #90 tabs 01/27/22 linezolid 600 mg tablet (Zyvox) 600 mg PO BID #34 tabs 07/10/24 potassium chloride 20 mEq 20 meq PO BID #60 tabs 07/10/24 tablet,extended release(part/cryst) vancomycin 25 mg/mL oral solution 125 mg (5 mL) PO Q6H #76 mL 07/10/24 (Firvanq) Allergies Allergy/AdvReac Type Severity Reaction Status Date / Time No Known Allergies Allergy Verified 07/26/24 11:41 [No Known Allergies*] Review of Systems Review of Systems: Yes Unobtainable due to mental condition PMFSH Past Medical History Medical History 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 Mother No problems noted. Social History Social History Household Members: None and Other Household Members Other:: SNF Housing: Detention Are you a primary resident caregiver to a significant other at home: No Do you presently have visiting nurse or other home services: Yes Unable to assess alcohol history related to: Unable to respond Alcohol intake: former Comment: patient sleeping Patient Tobacco Use Status: Tobacco use Unknown Smoked in Last 30 Days: No Second Hand Smoke Exposure: No Use of substances other than those prescribed or required for medical reasons: Unable to respond Advance Directives: Yes Advance Directives on File: Yes Advance Directives Date on File: 02/14/20 service: No Current occupational status: disabled Physical Exam Vital Signs: Vital Signs: Last Vital Signs Temp 98.9 F 07/26/24 19:23 Pulse 90 07/26/24 20:21 Resp 12 07/26/24 20:21 BP 143/90 H 07/26/24 20:21 Pulse Ox 99 07/26/24 20:21 O2 Del Method Nasal Cannula 07/26/24 20:21 O2 Flow Rate 2 07/26/24 20:21 Oxygen Flow Rate 2 07/26/24 11:20 BMI result Body Mass Index 23.0 Vital signs revealed an elevated blood pressure otherwise unremarkable Exam: General: Awake, chronically ill-appearing male, in no distress Head: Normocephalic, atraumatic EENT: Pupils equal round reactive to light, sclera conjunctiva normal, mouth revealed moist membranes Neck: Supple, no adenopathy Lung: breath sounds symmetric, no wheezing, rales or rhonchi Chest: symmetric movement, nontender Heart: regular rate and rhythm, normal S1, S2 no murmurs or rubs Abdomen: soft, non-tender, nondistended, normal bowel sounds Back: no vertebral tenderness, no CVAT Extremities: Patient has contraction and atrophy of his right upper and lower extremity secondary to his hemiplegia Neuro: Awake, right-sided hemiplegia Medications Administered Discontinued Medications Generic Name Dose Route Start Last Admin Trade Name Pancho PRN Reason Stop Dose Admin Diphenhydramine HCl 25 mg 07/26/24 16:16 07/26/24 17:11 Diphenhydramine Hcl 50 Mg/Ml Vial IVPUSH 07/26/24 16:17 25 mg ONCE ONE Administration Medical Decision Making Medical Decision Making [facility] Narrative: 68-year-old male with extensive past medical history including vascular dementia, CVA with right-sided hemiparesis on Xarelto, nonverbal, neurogenic bladder with suprapubic catheter, nephrostomy tube , stage IV decubitus ulcers, current infection with C diff colitis on oral vancomycin, seizure disorder, hypertension and hyperlipidemia presenting with reportedly low H&H of 6.4 from [facility] . The patient is not able to provide any history since he is nonverbal. Patient was recently seen in the emergency department on 07/19/2023 for 6.5 transfused PRBCs then discharged back to his facility. Physical examination was consistent with his lesion/CVA. Differential diagnosis: ?Includes but is not limited to acute on chronic anemia secondary to blood loss, electrolyte abnormalities Course: 21:24 My independent interpretation patient's laboratory evaluation is as follows: H&H was consistent with a microcytic anemia with a lumen of 6.8 and hematocrit of 21.3 with an MCV of 98.2. Sodium was elevated 151, chloride elevated 112, bicarb elevated 32, BUN elevated 49, creatinine was normal at 1.40. Glucose elevated 155. Urinalysis revealed positive protein, positive blood, positive leukocyte esterase, microscopic revealed greater than 20 RBCs, greater than 50 WBCs, 0 2 squamous cells, 4+ bacteria-this is colonization and at this time I do not think that he needs antibiotics unless he becomes symptomatic with fever chills or grows a significant organism on of his urine culture. The patient was significantly anemic, he has had similar anemia in the past and has been transfused and discharged home. 3 units of packed red blood cells with increased in his H&H to 6 and 25.8. At this time the patient can be discharged back to his care facility by ambulance given paraplegia. Admission/Observation Consideration of admission/observation: Escalation of care including admission/observation considered (Yes) Lab Data MDM Lab Attestation statement: I reviewed the patient's lab results. 07/26/24 20:07 07/26/24 12:10 Labs: Lab Results 07/26/24 07/26/24 07/26/24 Range/Units 12:10 12:16 20:07 WBC 4.8 (4.8-10.8) X10*3/uL RBC 2.17 L (4.60-5.80) X10*6/uL Hgb 6.8 L* 8.6 L D (14.0-18.0) g/dl Hct 21.3 L 25.8 L D (42.0-52.0) % MCV 98.2 H (80.0-98.0) fL MCH 31.3 (27.0-33.0) pg MCHC 31.9 (31.0-36.0) g/dl RDW 13.3 (11.0-16.0) % Plt Count 179 D (160-400) X10*3/uL MPV 9.1 L (9.4-12.4) fL Immature Gran % (Auto) 0.2 (0.0-0.4) % Neut % (Auto) 60.9 (45-73) % Lymph % (Auto) 24.0 (20-40) % [place] % (Auto) 11.8 H (2-11) % Eos % (Auto) 2.7 (0-4) % Baso % (Auto) 0.4 (0-2) % Lymph # (Auto) 1.2 (1.2-4.9) X10*3/uL [place] # (Auto) 0.6 (0.1-1.2) X10*3/uL Eos # (Auto) 0.1 (0.0-0.4) X10*3/uL Baso # (Auto) 0.0 (0.0-0.2) X10*3/uL Abs Immat Gran (auto) 0.01 (0.00-0.03) X10*3/uL Absolute Neuts (auto) 3.0 (2.0-8.3) x10*3/uL Absolute Nucleated RBC 0.000 (0.0-0.012) X10*3/uL Nucleated RBC % (auto) 0.0 (0.0-0.2) /100WBC Sodium 151 H (135-145) mmol/L Potassium 4.4 (3.3-5.1) mmol/L Chloride 112 H (96-108) mmol/L Carbon Dioxide 32 H (22-29) mmol/L Anion Gap 11 L (12-20) BUN 49 H (9-16) mg/dL Creatinine 1.40 (0.5-1.4) mg/dL Estim Creat Clear Calc 48.1 Estimated GFR 50 Random Glucose 155 H (60-115) mg/dL Calcium 9.3 (8.4-10.2) mg/dL Magnesium 2.3 (1.6-2.6) mg/dL Total Bilirubin 0.5 (0.0-1.0) mg/dL Direct Bilirubin 0.2 (0.0-0.5) mg/dL AST 22 (5-37) U/L ALT 14 (0-40) U/L Alkaline Phosphatase 79 (39-117) U/L Troponin I High Sens 9.6 D (<3.5-35.0) ng/L B-Natriuretic Peptide 42 (<100) pg/mL Total Protein 6.7 (6.5-8.0) g/dL Albumin 2.8 L (3.5-5.0) g/dL Lipase 35 (8-78) U/L Urine Color Yellow Urine Appearance Turbid Urine pH 7.0 (5.0-9.0) Ur Specific [place] 1.010 (1.005-1.025) Urine Protein 100 (2+) H (Neg-Trace) mg/dL Urine Glucose (UA) Negative (Negative) mg/dL Urine Ketones Negative (Negative) mg/dL Urine Blood Large (3+) H (Negative) Urine Nitrite Negative (Negative) Ur Leukocyte Esterase Large (3+) H (Negative) Urine RBC >20 H (0-2) /HPF Urine WBC >50 H (0-5) /HPF Ur Squamous Epith Cells 0-2 (0-2) /HPF Urine Bacteria 4+ (None Seen) Hyaline Casts 3-5 (0-2) /LPF C. difficile Tox B Gene POSITIVE A* (Negative) C. difficile Toxin A&B Negative (Negative) C. difficile Interpret SEE NOTE Blood Type A Positive Antibody Screen NEGATIVE Crossmatch See Detail Independent Historian Clinical information obtained from an independent historian. History obtained from or confirmed by: Other ([id number], Fozia) External Record Review External record reviewed: Inpatient record Chronic Conditions Patient?s care impacted by: Other (Chronic kidney disease, stroke with paraplegia) Critical Care Time Critical Care Time Critical Care Time: Yes Total Critical Care Time: 45 Attestation: Critical Care: The patient was critically ill with a high probability of imminent or life threatening deterioration. I spent greater than 30 minutes of discontinuous time evaluating the patient,delivering critical care at the bedside, discussing and evaluating pertinent data with consultants. Critical care time does not include time spent performing separately billable procedures or teaching. Total time spent performing critical care was 45 minutes. Discharge Plan Discharge Clinical Impression: Anemia Patient Disposition: er [facility] Additional Instructions: We were able to confirm that you were anemic with a hemoglobin hematocrit of 6.8 and 21.3. You were transfused 3 units of packed red blood cells and your repeat hematocrit and hemoglobin was 8.6 and 25.8, You are very difficult to get an IV in and we were not able to get an ultrasound-guided IV this time. We were able to get and external jugular IV in you. I asked your [id number], Fozia to discuss the plan with your doctor/provider. If you are going to continue to need transfusions then your provider should consider a PICC line or Port-A-Cath so that we can more easily transfuse you. There were no changes in your medications Follow-up with your doctor in 2 days. Please return to the emergency department if your symptoms get worse or if you develop any symptoms that are concerning to you. Prescriptions: No Action (DME) wet wipes See Rx Instructions .ROUTE .MEDSUPPLY Qty: 5 3RF Rx Instructions: As directed levetiracetam 100 mg/mL solution 2.5 ml PO BID acetaminophen 325 mg Tablet 650 mg PO Q4H PRN (Reason: fever/pain) calcium carbonate-vitamin D3 600 mg-5 mcg (200 unit) Tablet 1 tab PO BID magnesium hydroxide [Milk of Magnesia] 400 mg/5 mL Suspension 30 ml PO DAILY PRN (Reason: No BM in 3 Days) Rx Instructions: (step 1) If no BM for 3 days Fleet Enema 19-7 gram/118 mL Enema 118 ml AZ DAILY PRN (Reason: If no BM in 8 hours after use of Bisacodyl) Rx Instructions: (Step 3) If no BM 8 hours after Bisacodyl supp. magnesium citrate Solution 150 ml PO DAILY PRN (Reason: No BM in 12 hrs) Rx Instructions: (step 4) If no BM in 12 hours give 1 bottle ferrous sulfate 325 mg (65 mg iron) Tablet 325 mg PO DAILY multivitamin Tablet 1 tab PO DAILY psyllium Powder 1 ea PO BEDTIME Rx Instructions: mix into at least 8 oz of water or juice before administering sodium hypochlorite 0.125 % Solution 1 appl TOPICAL BEDTIME Rx Instructions: APPLY TO COCCYX WOUND TOPICALLY EVERY INFANTRY INDIRECT FIRE CREWMEMBER FOR WOUND CARE TO PRESSURE AREA, CLEANSE WITH DAKIN'S SOLUTION, PACK WITH HYDRAFERA BLUE, COVER WITH DRY CLEAN DRESSING DAILY. oxycodone 5 mg Tablet 5 mg PO DAILY PRN (Reason: Pain/Wound Management) simethicone 80 mg Tablet,Chewable 80 mg PO Q6H PRN (Reason: Abdominal Distention) acetaminophen [Tylenol] 325 mg Tablet 650 mg PO BEDTIME acetic acid 0.25 % Solution 50 ml IRRIGATION TUTHSA@2100 Rx Instructions: for urinary catheter flush Santyl 250 unit/gram Ointment 1 appl TOPICAL DAILY Rx Instructions: Cleans right hip with normal saline, then apply Santyl, Cover with dry clean dressing oxycodone 5 mg tablet 5 mg PO DAILY potassium chloride 20 mEq Tablet,Er Particles/Crystals 20 meq PO BID Qty: 60 0RF linezolid [Zyvox] 600 mg tablet 600 mg PO BID Qty: 34 0RF vancomycin [Firvanq] 25 mg/mL Recon Soln 125 mg PO Q6H Qty: 76 0RF gabapentin 300 mg capsule 300 mg PO BEDTIME 30 Days Qty: 30 0RF (DME) miscellaneous medical supply Misc See Rx Instructions .ROUTE .MEDSUPPLY Qty: 1 0RF Rx Instructions: RUE resting hand Splint/Sling As directed, Dx: G81.91, I67.89, duration 999 days/life time tamsulosin 0.4 mg capsule 0.4 mg PO BEDTIME 90 Days Qty: 90 1RF Xarelto 20 mg tablet 20 mg PO DAILY@1700 atorvastatin 80 mg tablet 80 mg PO DAILY ascorbic acid (vitamin C) 1,000 mg tablet 1,000 mg PO DAILY 90 Days Qty: 90 1RF methenamine hippurate 1 gram tablet 1 g PO daily 90 Days Qty: 90 1RF Print Language: Tajik
[2024-07-26 12:16] LABS: MANUAL DIFF FLAG NO
[2024-07-26 12:23] LABS: Basophils Percent Auto 0.4 % (0-2); Eosinophils Absolute Auto 0.1 X10*3/uL (0.0-0.4); Eosinophils Percent Auto 2.7 % (0-4); Hematocrit 21.3 % (42.0-52.0); Imm Gran Abs Auto 0.01 X10*3/uL (0.00-0.03); Imm Gran Pct Auto 0.2 % (0.0-0.4); Lymphocytes Absolute Auto 1.2 X10*3/uL (1.2-4.9); Mean Corpuscular HGB Conc 31.9 g/dl (31.0-36.0); Mean Corpuscular Hemoglobin 31.3 pg (27.0-33.0); Mean Corpuscular Volume 98.2 fL (80.0-98.0); Mean Platelet Volume 9.1 fL (9.4-12.4); Monocytes Absolute Auto 0.6 X10*3/uL (0.1-1.2); Monocytes Percent Auto 11.8 % (2-11); Neutrophils Percent Auto 60.9 % (45-73); Platelet Count 179 X10*3/uL (160-400); Red Blood Count 2.17 X10*6/uL (4.60-5.80); Red Cell Distribution Width 13.3 % (11.0-16.0); White Blood Count 4.8 X10*3/uL (4.8-10.8)
[2024-07-26 12:29] LABS: Appearance Urine Turbid; Color Urine Yellow; Glucose Urine UA Negative (Negative); Leukocyte Esterase Urine Large (3+) (Negative); Nitrite Urine Negative (Negative); UMIC TRIGGER UACC YES; Urine Blood Large (3+) (Negative); Urine Ketones Negative (Negative); Urine Protein 100 (2+) mg/dL (Neg-Trace)
[2024-07-26 12:30] LABS: Hemoglobin 6.8 g/dl (14.0-18.0)
[2024-07-26 12:35] LABS: Alanine Aminotransferase 14 U/L (0-40); Albumin Level 2.8 g/dL (3.5-5.0); Anion Gap 11 (12-20); Aspartate Amino Transferase 22 U/L (5-37); Bilirubin Direct 0.2 mg/dL (0.0-0.5); Bilirubin Total 0.5 mg/dL (0.0-1.0); Blood Urea Nitrogen 49 mg/dL (9-16); Calcium 9.3 mg/dL (8.4-10.2); Carbon Dioxide 32 mmol/L (22-29); Chloride 112 mmol/L (96-108); Creatinine Clr Calc Pharmacy 48.1; Estimated Glomerular Filt Rate 50; Glucose Random 155 mg/dL (60-115); Lipase 35 U/L (8-78); Magnesium 2.3 mg/dL (1.6-2.6); Potassium 4.4 mmol/L (3.3-5.1); Sodium 151 mmol/L (135-145); Total Protein 6.7 g/dL (6.5-8.0)
--- OUTSIDE RECORDS SUMMARY | 2024-07-26 12:37 | XMS_ITS | Encounter Summary ---
Author Organization [employer] Address [address] [place] [address] Care Team Providers Care Administrative Receptionist Name Role Phone Lauren Wiley MD Primary Care Provider + Encounter Details Date Type Department Care Team (Late st Contact Info) Description 05/04/2024 Lab Requisition [facility] Lab [address] [place] [address] Lauren Wiley MD [address] [phone] Essential (primary) hypertension Social History Tobacco Use [...] AM EDT) WBC 5.1 4.8 - 10.8 K/[facility] LAB HEMETOLOGY METHOD 05/04/2024 9:45 AM EDT [facility] RBC 3.00(L) 4.50 - 5.50 M/[facility] LAB HEMETOLOGY METHOD 05/04/2024 9:45 AM EDT [facility] Hemoglobin 9.7(L) 13.5 - 17.5 g/dL LAB HEMETOLOGY METHOD 05/04/2024 9:45 AM EDT [facility] Hematocrit 29.4(L) 42.0 - 54.0 % LAB HEMETOLOGY METHOD 05/04/2024 9:45 AM EDT [facility] MCV 96.7 79.0 - 98.0 FL LAB HEMETOLOGY METHOD 05/04/2024 9:45 AM EDT [facility] MCH 31.9 27.0 - 32.0 pcg LAB HEMETOLOGY METHOD 05/04/2024 9:45 AM EDT [facility] MCHC 33.0 32.0 - 37.0 g/dL LAB HEMETOLOGY METHOD 05/04/2024 9:45 AM EDT [facility] RDW 14.2 11.0 - 15.0 % LAB HEMETOLOGY METHOD 05/04/2024 9:45 AM EDT [facility] Platelets 190 130 - 400 K/mcL LAB HEMETOLOGY METHOD 05/04/2024 9:45 AM EDT [facility] MPV 10.3 7.0 - 11.0 FL LAB HEMETOLOGY METHOD 05/04/2024 9:45 AM EDT [facility] NRBC 0.0 <1.0 % LAB HEMETOLOGY METHOD 05/04/2024 9:45 AM EDT [facility] NRBC Absolute 0.00 <0.10 K/mcL LAB HEMETOLOGY METHOD 05/04/2024 9:45 AM EDT [facility] Blood Venous blood specimen / Unknown 05/04/2024 7:09 AM EDT 05/04/2024 9:06 AM EDT us Lauren Wiley MD LAB BLOOD ORDERABLES Fin al Result [facility] [address] [place] [address], [place] [phone] * (ABNORMAL) Basic metabolic panel (05/04/2024 7:09 AM EDT) Sodium 142 133 - 145 mmol/L LAB CHEMISTRY METHOD 05/04/2024 10:07 AM [facility] Potassium 3.8 3.5 - 5.5 mmol/L LAB CHEMISTRY METHOD 05/04/2024 10:07 AM [facility] Chloride 108 96 - 110 mmol/L LAB CHEMISTRY METHOD 05/04/2024 10:07 AM [facility] CO2 28 21 - 32 mmol/L LAB CHEMISTRY METHOD 05/04/2024 10:07 AM [facility] Anion Gap 6 3 - 11 LAB CHEMISTRY METHOD 05/04/2024 10:07 AM [facility] Glucose 86 70 - 100 mg/dL LAB CHEMISTRY METHOD 05/04/2024 10:07 AM [facility] BUN 23 5 - 25 mg/dL LAB CHEMISTRY METHOD 05/04/2024 10:07 AM [facility] Creatinine 0.91 0.70 - 1.30 mg/dL LAB CHEMISTRY METHOD 05/04/2024 10:07 AM [facility] eGFR 91 >=60 mL/min/1. 73m2 LAB CHEMISTRY METHOD 05/04/2024 10:07 AM [facility] Comment:Calculation based on the??Chronic Kidney Disease Epidemiology Collaboration (CKD-EPI) equation refit??without adjustment for race. BUN/Creatinine Ratio 25.3 LAB CHEMISTRY METHOD 05/04/2024 10:07 AM [facility] Calcium 8.4(L) 8.5 - 10.5 mg/dL LAB CHEMISTRY METHOD 05/04/2024 10:07 AM [facility] Blood Venous blood specimen / Unknown Venipuncture / Unknown 05/04/2024 7:09 AM EDT 05/04/2024 9:05 AM EDT us Lauren Wiley MD LAB BLOOD ORDERABLES Fin al Result Performing Organization Address City/[facility]/ZIP Co de Phone Number [facility] [address] [place] [address], documented in this encounter Visit Diagnoses Diagnosis Essential (primary) hypertension Unspecified essential hypertension documented in this encounter Additional Health Concerns Infection Onset Date Last Indicated Resolved Time ESBL 03/29/2024 03/29/2024 documented as of this encounter Care Teams Administrative Receptionist Relationship Specialty Start Date End Date Lauren Wiley MD [address] [place] [address] PCP - General Family Medicine 01/28/24 documented as of this encounter
[2024-07-26 12:38] LABS: B Type Natriuretic Peptide 42 pg/mL (<100)
[2024-07-26 12:41] LABS: Troponin-I High Sensitivity 9.6 ng/L (<3.5-35.0)
[2024-07-26 12:45] LABS: Bacteria Urine 4+ (None Seen); RBC Urine >20 /HPF (0-2); Squamous Epithelial Cell Urine 0-2 /HPF (0-2); UACC Culture Trigger YES; WBC Urine >50 /HPF (0-5)
[2024-07-26 12:58] LABS: Alkaline Phosphatase 79 U/L (39-117)
--- NOTE | 2024-07-26 13:02 | PC.NURSE ---
18g IV access established by Wesley Chávez MD to right EJ with ultrasound guidance. Patient is a difficult stick. Patient tolerated procedure well.
[2024-07-26 13:19] LABS: CDiff Gene PCR POSITIVE (Negative)
[2024-07-26 13:53] LABS: CDIFF Internal ctrl Dots and bkg OK (V); CDiff Toxin Negative (Negative)
[2024-07-26] MEDS: diphenhydrAMINE HCL 50 MG/ML VIAL 25 MG IVPUSH (17:11)
--- NOTE | 2024-07-26 17:12 | PC.NURSE ---
Patient noted to be excessively scratching his groin. Redness noted. Benadryl given for groin itch. 2nd unit of blood continues to infuse as ordered (see TAR).
--- NOTE | 2024-07-26 19:46 | MHC.EDTECH ---
Patient repeated lab drawn and sent to lab .Vitals taken ,all safety measure in Place .
[2024-07-26 20:14] LABS: Hematocrit 25.8 % (42.0-52.0); Hemoglobin 8.6 g/dl (14.0-18.0)
--- NOTE | 2024-07-26 22:14 | PC.NURSE ---
Nurse to Nurse report given to Joy at [facility].
== END 2024-07-26 22:30 ==
PROVIDERS: Emergency Medicine; Emergency Provider Emergency Medicine Emergency Medical Services; PCP Internal Medicine
DX: D62 Acute posthemorrhagic anemia (principal); N39.0 Urinary tract infection, site not specified; R53.1 Weakness; F01.50 Vascular dementia, unspecified severity, without behavioral disturbance, psychotic disturbance, mood disturbance, and anxiety; N31.9 Neuromuscular dysfunction of bladder, unspecified; L89.94 Pressure ulcer of unspecified site, stage 4; G40.909 Epilepsy, unspecified, not intractable, without status epilepticus; I10 Essential (primary) hypertension; E78.5 Hyperlipidemia, unspecified; Z99.3 Dependence on wheelchair; Z79.899 Other long term (current) drug therapy
CPT/HCPCS: 36415; 36430; 71045; 80048; 80076; 81001; 83690; 83735; 83880; 84484; 85014; 85018; 85025; 86850; 86900; 86901; 86923; 87086; 87088; 87186; 87324; 87493; 93005; 99284; 99285; J1200; P9016

== ENCOUNTER → 2024-07-26 11:43 | Outpatient (BNV) | payer OTHER, SELFPAY | PROVIDERS: Emergency Provider Emergency Medicine Emergency Medical Services; PCP Internal Medicine; Visit Provider Internal Medicine | DX: R00.0 Tachycardia, unspecified (principal) | CPT/HCPCS: 93010 ==

== ENCOUNTER → 2024-07-26 11:44 | Outpatient (BNV) | payer OTHER, SELFPAY | PROVIDERS: Emergency Provider Emergency Medicine Emergency Medical Services; PCP Internal Medicine; Visit Provider Radiology Diagnostic Radiology | DX: R05.9 Cough, unspecified (principal) | CPT/HCPCS: 71045 ==

== ENCOUNTER 2024-08-15 16:04 | Emergency (ER) | payer OTHER, SELFPAY ==
[2024-08-15 16:14] VITALS: BP 117/72; BP 159/78; PULSE 47; PULSE 90; RESP 14; TEMP 36.9; O2SAT 97; O2SAT 99; BMI 24.7
[2024-08-15 16:23] VITALS: BP 159/78; PULSE 47; RESP 14; TEMP 36.9; O2SAT 99
--- NOTE | 2024-08-15 16:27 | PC.NURSE ---
Patient prsents to ED from [facility]. LTC states Patient finley has had decreased output Patient has suprapubic cath placed 16 fr 10 ml draining yellow urine 200ml present at this time. Patient has right nephrostomy in place minimal drainage noted. Patient persian speaking but nonverbal. 2/10 faustin harris pain scale. VSS and up to date. Plan of care on going.
--- NOTE | 2024-08-15 17:52 | ED.MALEGU ---
HPI - Male Genitourinary General Chief complaint: Urogenital-Male Stated complaint: urine retention Time Seen by Provider: 08/15/24 17:52 Source: EMS, old records reviewed and historic interpreter Mode of arrival: EMS Limitations: physical limitation History of Present Illness ED Provider: DR. Hoang HPI Narrative: 68-year-old male resident of [facility] with complex multiple medical problems including right hemiparesis secondary to CVA, vascular dementia, aphasic, neurogenic bladder with suprapubic catheter and left nephrostomy tube sacral decubitus, C diff, seizure, HTN, HLD. Bed-bound. Patient presented from [facility] for decreased suprapubic catheter drainage. Patient is a non historian history was obtained from previous records. Related Data Home Medications ?Medication ?Instructions ?Recorded ?Confirmed acetaminophen 325 mg tablet 650 mg PO Q4H PRN fever/pain 02/16/21 06/29/24 calcium 600 mg (as 1 tab PO BID 02/16/21 06/29/24 carbonate)-vitamin D3 5 mcg (200 unit) tablet magnesium hydroxide 400 mg/5 mL 30 ml PO DAILY PRN No BM in 3 Days 02/16/21 06/29/24 oral suspension (Milk of Magnesia) levetiracetam 100 mg/mL oral 2.5 ml PO BID 02/26/21 06/29/24 solution atorvastatin 80 mg tablet 80 mg PO DAILY 01/26/22 06/29/24 rivaroxaban 20 mg tablet (Xarelto) 20 mg PO DAILY@1700 01/26/22 06/29/24 magnesium citrate 150 ml PO DAILY PRN No BM in 12 hrs 02/15/22 06/29/24 sodium phosphates 19 gram-7 118 ml TX DAILY PRN If no BM in 8 02/15/22 06/29/24 gram/118 mL enema (Fleet Enema) hours after use of Bisacodyl acetaminophen 325 mg tablet 650 mg PO BEDTIME 10/03/22 06/29/24 (Tylenol) acetic acid 0.25 % irrigation 50 ml irrigation TUTHSA@2100 10/03/22 06/29/24 solution ferrous sulfate 325 mg (65 mg 325 mg PO DAILY 12/22/22 06/29/24 iron) tablet multivitamin 1 tab PO DAILY 01/18/24 06/29/24 psyllium 1 ea PO BEDTIME 01/18/24 06/29/24 sodium hypochlorite 0.125 % 1 appl topical BEDTIME 01/18/24 06/29/24 solution oxycodone 5 mg tablet 5 mg PO DAILY PRN Pain/Wound 04/19/24 06/29/24 Management simethicone 80 mg chewable tablet 80 mg PO Q6H PRN Abdominal 04/19/24 06/29/24 Distention collagenase clostridium histo. 250 1 appl topical DAILY 06/29/24 06/29/24 unit/gram topical ointment (Santyl) oxycodone 5 mg tablet 5 mg PO DAILY 06/29/24 06/29/24 Previous Rx's ?Medication ?Instructions ?Recorded wet wipes #5 multiple units 03/12/20 tamsulosin 0.4 mg capsule 0.4 mg PO BEDTIME 90 days #90 caps 03/22/20 gabapentin 300 mg capsule 300 mg PO BEDTIME 30 days #30 caps 03/27/20 miscellaneous medical supply #1 ea 03/27/20 ascorbic acid (vitamin C) 1,000 mg 1,000 mg PO DAILY 90 days #90 tabs 01/27/22 tablet methenamine hippurate 1 gram tablet 1 g PO daily 90 days #90 tabs 01/27/22 linezolid 600 mg tablet (Zyvox) 600 mg PO BID #34 tabs 07/10/24 potassium chloride 20 mEq 20 meq PO BID #60 tabs 07/10/24 tablet,extended release(part/cryst) vancomycin 25 mg/mL oral solution 125 mg (5 mL) PO Q6H #76 mL 07/10/24 (Firvanq) cefuroxime axetil 250 mg tablet 250 mg PO BID 7 days #14 tabs 08/15/24 Allergies Allergy/AdvReac Type Severity Reaction Status Date / Time No Known Allergies (No Known Allergy Verified 08/15/24 16:21 Allergies*) Review of Systems Review of Systems: Yes Unobtainable due to mental condition (Is aphasic secondary to old CVA.) [facility] Past Medical History Medical History Multiple renal calculi 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 Mother No problems noted. Social History Social History Household Members: None and Other Household Members Other:: SNF Housing: [facility] Care Are you a primary rn transitional care to a significant other at home: No Do you presently have visiting nurse or other home services: Yes Unable to assess alcohol history related to: Unable to respond Alcohol intake: former Comment: patient sleeping Patient Tobacco Use Status: Tobacco use Unknown Smoked in Last 30 Days: No Second Hand Smoke Exposure: No Use of substances other than those prescribed or required for medical reasons: No Advance Directives: Yes Advance Directives on File: Yes Advance Directives Date on File: 02/14/20 Do you have a plan to hurt others: No Plan service: No Current occupational status: disabled Physical Exam Vital Signs: Vital Signs: Last Vital Signs Temp 98.0 F 08/15/24 20:06 Pulse 80 08/15/24 20:06 Resp 14 08/15/24 20:06 BP 115/76 08/15/24 20:06 Pulse Ox 94 08/15/24 20:06 O2 Del Method Room Air 08/15/24 20:06 BMI result Body Mass Index 24.7 Vital signs have been reviewed and appear to be correct. Blood pressure elevated. Heart rate normal. Respiratory rate normal. Temperature normal. Oxygen saturation normal. Appearance: , regards examiner answer question by shaking his head, No acute distress. Head: Normal external exam. Normocephalic. Atraumatic. No Oliveira signs noted. No raccoon eyes noted Eyes: PERRLA. EOMI. Conjunctiva and sclera normal. Eyelids normal. ENT: TM's Normal. Pharynx normal. Uvula midline. Moist mucous membranes. No trismus noted. No drooling noted. No muffled voice noted. Neck: Normal inspection. Neck supple. FROM. No adenopathy. Thyroid Normal. No meningeal signs. No neck mass noted. CVS: Normal heart rate and rhythm. Heart sound normal. No murmurs noted. Pulses normal throughout. Respiratory: No respiratory distress. Painless inspiration. Breath sounds normal. No wheezes/rales/rhonchi noted. Chest nontender. No accessory muscle usage noted or decreased air movement noted. Abdomen: Soft and nontender, left nephrostomy tube is in place, suprapubic tube is partially dislodged. Bowel sounds normal in all 4 quadrants. No distention noted. No organomegaly noted. No visible injury noted. Back: No CVA tenderness. Full range of motion noted. Skin: Skin warm and dry. Normal skin color. Normal skin turgor. No rashes/lesions/lacerations noted. Extremities: No lower extremity edema. Extremities exhibit normal range of motion. Extremities nontender. Neuro: Oriented X 3. Cranial nerve exam: II-XII are grossly intact No motor deficit. No sensory deficit. Reflexes normal. Course Reevaluation(s) Reevaluation #1: S/p suprapubic catheter replaced in the ED, suprapubic catheter is draining clear urine now, patient is no apparent distress, appeared comfortable. Labs at his baseline chronic anemia H&H is at baseline for the patient, kidney function tests at baseline. UTI will start on Ceftin Time: 20:45 Medical Decision Making Differential Diagnosis Differential Diagnoses: The differential diagnosis associated with the presentation includes (Malfunctioning suprapubic catheter, UTI, VI.) Admission/Observation Consideration of admission/observation: Escalation of care including admission/observation considered Lab Data MDM Lab Attestation statement: I reviewed the patient's lab results. 08/15/24 18:46 08/15/24 18:46 Labs: Lab Results 08/15/24 08/15/24 Range/Units 18:46 20:07 WBC 6.0 (4.8-10.8) X10*3/uL RBC 2.45 L (4.60-5.80) X10*6/uL Hgb 7.8 L (14.0-18.0) g/dl Hct 24.2 L (42.0-52.0) % MCV 98.8 H (80.0-98.0) fL MCH 31.8 (27.0-33.0) pg MCHC 32.2 (31.0-36.0) g/dl RDW 16.0 (11.0-16.0) % Plt Count 203 (160-400) X10*3/uL MPV 9.5 (9.4-12.4) fL Immature Gran % (Auto) 0.7 H (0.0-0.4) % Neut % (Auto) 68.6 (45-73) % Lymph % (Auto) 17.9 L (20-40) % Desha % (Auto) 9.3 (2-11) % Eos % (Auto) 3.2 (0-4) % Baso % (Auto) 0.3 (0-2) % Lymph # (Auto) 1.1 L (1.2-4.9) X10*3/uL Desha # (Auto) 0.6 (0.1-1.2) X10*3/uL Eos # (Auto) 0.2 (0.0-0.4) X10*3/uL Baso # (Auto) 0.0 (0.0-0.2) X10*3/uL Abs Immat Gran (auto) 0.04 H (0.00-0.03) X10*3/uL Absolute Neuts (auto) 4.1 (2.0-8.3) x10*3/uL Absolute Nucleated RBC 0.000 (0.0-0.012) X10*3/uL Nucleated RBC % (auto) 0.0 (0.0-0.2) /100WBC Sodium 143 (135-145) mmol/L Potassium 3.6 (3.3-5.1) mmol/L Chloride 106 (96-108) mmol/L Carbon Dioxide 29 (22-29) mmol/L Anion Gap 12 (12-20) BUN 49 H (9-16) mg/dL Creatinine 1.34 (0.5-1.4) mg/dL Estim Creat Clear Calc 48.6 Estimated GFR 53 Random Glucose 157 H (60-115) mg/dL Lactic Acid 1.4 (0.5-2.0) mmol/L Calcium 8.8 (8.4-10.2) mg/dL Total Bilirubin 0.5 (0.0-1.0) mg/dL Direct Bilirubin 0.2 (0.0-0.5) mg/dL AST 22 (5-37) U/L ALT 16 (0-40) U/L Alkaline Phosphatase 87 (39-117) U/L Troponin I High Sens 9.8 (<3.5-35.0) ng/L Total Protein 6.8 (6.5-8.0) g/dL Albumin 2.7 L (3.5-5.0) g/dL Lipase 24 (8-78) U/L Urine Color Yellow Urine Appearance Cloudy Urine pH 7.0 (5.0-9.0) Ur Specific [place] 1.025 (1.005-1.025) Urine Protein 100 (2+) H (Neg-Trace) mg/dL Urine Glucose (UA) Negative (Negative) mg/dL Urine Ketones Negative (Negative) mg/dL Urine Blood Large (3+) H (Negative) Urine Nitrite Negative (Negative) Ur Leukocyte Esterase Large (3+) H (Negative) Urine RBC >20 H (0-2) /HPF Urine WBC >50 H (0-5) /HPF Ur Squamous Epith Cells 0-2 (0-2) /HPF Urine Bacteria 2+ (None Seen) Hyaline Casts 3-5 (0-2) /LPF Procedures Procedure Narrative Procedure Narrative: Suprapubic catheter replacement. Time-out was preformed with to identification confirmed. Is placed in the supine position, under complete a sterile technique, so was removed after deflating the balloon which felt to be partially dislodged, new Walker catheter 14 Japanese placed suprapubically with sterile technique, clear urine started drain out of the urinary bladder. Patient tolerated the procedure very well with no obvious complication. Discharge Plan Discharge Clinical Impression: Suprapubic catheter dysfunction, UTI (urinary tract infection) Patient Disposition: Xfer [facility] Instructions: How to Care for Your Suprapubic Catheter (DC) Prescriptions: New cefuroxime axetil 250 mg tablet 250 mg PO BID 7 Days Qty: 14 0RF No Action (DME) wet wipes See Rx Instructions .ROUTE .MEDSUPPLY Qty: 5 3RF Rx Instructions: As directed levetiracetam 100 mg/mL solution 2.5 ml PO BID acetaminophen 325 mg Tablet 650 mg PO Q4H PRN (Reason: fever/pain) calcium carbonate-vitamin D3 600 mg-5 mcg (200 unit) Tablet 1 tab PO BID magnesium hydroxide [Milk of Magnesia] 400 mg/5 mL Suspension 30 ml PO DAILY PRN (Reason: No BM in 3 Days) Rx Instructions: (step 1) If no BM for 3 days Fleet Enema 19-7 gram/118 mL Enema 118 ml TX DAILY PRN (Reason: If no BM in 8 hours after use of Bisacodyl) Rx Instructions: (Step 3) If no BM 8 hours after Bisacodyl supp. magnesium citrate Solution 150 ml PO DAILY PRN (Reason: No BM in 12 hrs) Rx Instructions: (step 4) If no BM in 12 hours give 1 bottle ferrous sulfate 325 mg (65 mg iron) Tablet 325 mg PO DAILY multivitamin Tablet 1 tab PO DAILY psyllium Powder 1 ea PO BEDTIME Rx Instructions: mix into at least 8 oz of water or juice before administering sodium hypochlorite 0.125 % Solution 1 appl TOPICAL BEDTIME Rx Instructions: APPLY TO COCCYX WOUND TOPICALLY EVERY FLORAL CLERK FOR WOUND CARE TO PRESSURE AREA, CLEANSE WITH DAKIN'S SOLUTION, PACK WITH HYDRAFERA BLUE, COVER WITH DRY CLEAN DRESSING DAILY. oxycodone 5 mg Tablet 5 mg PO DAILY PRN (Reason: Pain/Wound Management) simethicone 80 mg Tablet,Chewable 80 mg PO Q6H PRN (Reason: Abdominal Distention) acetaminophen [Tylenol] 325 mg Tablet 650 mg PO BEDTIME acetic acid 0.25 % Solution 50 ml IRRIGATION TUTHSA@2100 Rx Instructions: for urinary catheter flush Santyl 250 unit/gram Ointment 1 appl TOPICAL DAILY Rx Instructions: Cleans right hip with normal saline, then apply Santyl, Cover with dry clean dressing oxycodone 5 mg tablet 5 mg PO DAILY potassium chloride 20 mEq Tablet,Er Particles/Crystals 20 meq PO BID Qty: 60 0RF linezolid [Zyvox] 600 mg tablet 600 mg PO BID Qty: 34 0RF vancomycin [Firvanq] 25 mg/mL Recon Soln 125 mg PO Q6H Qty: 76 0RF gabapentin 300 mg capsule 300 mg PO BEDTIME 30 Days Qty: 30 0RF (DME) miscellaneous medical supply Misc See Rx Instructions .ROUTE .MEDSUPPLY Qty: 1 0RF Rx Instructions: RUE resting hand Splint/Sling As directed, Dx: G81.91, I67.89, duration 999 days/life time tamsulosin 0.4 mg capsule 0.4 mg PO BEDTIME 90 Days Qty: 90 1RF Xarelto 20 mg tablet 20 mg PO DAILY@1700 atorvastatin 80 mg tablet 80 mg PO DAILY ascorbic acid (vitamin C) 1,000 mg tablet 1,000 mg PO DAILY 90 Days Qty: 90 1RF methenamine hippurate 1 gram tablet 1 g PO daily 90 Days Qty: 90 1RF Referrals: Ashley Moore MD [Primary Care Provider, Medical] Print Language: Comoran
[2024-08-15 18:28] VITALS: BP 117/66; PULSE 80; RESP 16; O2SAT 98
[2024-08-15 18:55] LABS: MANUAL DIFF FLAG NO
[2024-08-15 18:59] LABS: Basophils Percent Auto 0.3 % (0-2); Eosinophils Absolute Auto 0.2 X10*3/uL (0.0-0.4); Eosinophils Percent Auto 3.2 % (0-4); Hematocrit 24.2 % (42.0-52.0); Hemoglobin 7.8 g/dl (14.0-18.0); Imm Gran Abs Auto 0.04 X10*3/uL (0.00-0.03); Imm Gran Pct Auto 0.7 % (0.0-0.4); Lymphocytes Absolute Auto 1.1 X10*3/uL (1.2-4.9); Lymphocytes Percent Auto 17.9 % (20-40); Mean Corpuscular HGB Conc 32.2 g/dl (31.0-36.0); Mean Corpuscular Hemoglobin 31.8 pg (27.0-33.0); Mean Corpuscular Volume 98.8 fL (80.0-98.0); Mean Platelet Volume 9.5 fL (9.4-12.4); Monocytes Absolute Auto 0.6 X10*3/uL (0.1-1.2); Monocytes Percent Auto 9.3 % (2-11); Neutrophils Absolute Auto 4.1 x10*3/uL (2.0-8.3); Neutrophils Percent Auto 68.6 % (45-73); Platelet Count 203 X10*3/uL (160-400); Red Blood Count 2.45 X10*6/uL (4.60-5.80)
--- OUTSIDE RECORDS SUMMARY | 2024-08-15 19:08 | XMS_ITS | Encounter Summary ---
Author Organization [facility] Address [address] [place] [address] Care Team Providers Care Shader And Toner Name Role Phone Lauren Wiley MD Primary Care Provider + Encounter Details Date Type Department Care Team (Late st Contact Info) Description 05/04/2024 Lab Requisition [facility] [address] [place] [address] Lauren Wiley MD [address] [phone] Essential (primary) hypertension Social History Tobacco Use [...] AM EDT) WBC 5.1 4.8 - 10.8 K/[facility] LAB HEMETOLOGY METHOD 05/04/2024 9:[address] [facility] RBC 3.00(L) 4.50 - 5.50 M/[facility] LAB HEMETOLOGY METHOD 05/04/2024 9:45 AM EDT [...] al Result [facility] [address] [place] [address], [place] [phone] * (ABNORMAL) Basic metabolic panel (05/04/2024 7:09 AM EDT) Sodium 142 133 - 145 mmol/L LAB CHEMISTRY METHOD 05/04/2024 10:07 AM [facility] Potassium 3.8 3.5 - 5.5 mmol/L LAB CHEMISTRY METHOD 05/04/2024 10:07 AM [facility] Chloride 108 96 - 110 mmol/L LAB CHEMISTRY METHOD 05/04/2024 10:07 AM [facility] CO2 28 21 - 32 mmol/L LAB CHEMISTRY METHOD 05/04/2024 10:07 AM [facility] Anion Gap 6 3 - 11 LAB CHEMISTRY METHOD 05/04/2024 10:07 AM [facility] Glucose 86 70 - 100 mg/dL LAB CHEMISTRY METHOD 05/04/2024 10:07 AM [facility] BUN 23 5 - 25 mg/dL LAB CHEMISTRY METHOD 05/04/2024 10:07 AM [facility] Creatinine 0.91 0.70 - 1.30 mg/dL LAB CHEMISTRY METHOD 05/04/2024 10:07 AM [facility] eGFR 91 >=60 mL/min/1. 73m2 LAB CHEMISTRY METHOD 05/04/2024 10:07 AM [facility] Comment:Calculation based on the Chronic Kidney Disease Epidemiology Collaboration (CKD-EPI) equation refit without adjustment for race. BUN/Creatinine Ratio 25.3 LAB CHEMISTRY METHOD 05/04/2024 10:07 AM [facility] Calcium 8.4(L) 8.5 - 10.5 mg/dL LAB CHEMISTRY METHOD 05/04/2024 10:07 AM [facility] Blood Venous blood specimen / Unknown Venipuncture / Unknown 05/04/2024 7:09 AM EDT 05/04/2024 9:05 AM EDT Lauren Wiley MD LAB BLOOD ORDERABLES Fin al Result [facility] [address] [place] [address], documented in this encounter Visit Diagnoses Diagnosis Essential (primary) hypertension Unspecified essential hypertension documented in this encounter Additional Health Concerns Infection Onset Date Last Indicated Resolved Time ESBL 03/29/2024 03/29/2024 documented as of this encounter Care Teams Shader And Toner Relationship Specialty Start Date End Date Lauren Wiley MD [address] [place] [address] PCP - General Family Medicine 01/28/24 documented as of this encounter
[2024-08-15 19:14] LABS: Alanine Aminotransferase 16 U/L (0-40); Albumin Level 2.7 g/dL (3.5-5.0); Alkaline Phosphatase 87 U/L (39-117); Anion Gap 12 (12-20); Aspartate Amino Transferase 22 U/L (5-37); Bilirubin Direct 0.2 mg/dL (0.0-0.5); Bilirubin Total 0.5 mg/dL (0.0-1.0); Blood Urea Nitrogen 49 mg/dL (9-16); Calcium 8.8 mg/dL (8.4-10.2); Carbon Dioxide 29 mmol/L (22-29); Chloride 106 mmol/L (96-108); Creatinine Clr Calc Pharmacy 48.6; Estimated Glomerular Filt Rate 53; Glucose Random 157 mg/dL (60-115); Lipase 24 U/L (8-78); Potassium 3.6 mmol/L (3.3-5.1); Sodium 143 mmol/L (135-145); Total Protein 6.8 g/dL (6.5-8.0)
[2024-08-15 19:17] LABS: Lactic Acid 1.4 mmol/L (0.5-2.0)
[2024-08-15 19:22] LABS: Troponin-I High Sensitivity 9.8 ng/L (<3.5-35.0)
[2024-08-15 20:06] VITALS: BP 115/76; PULSE 80; RESP 14; TEMP 36.7; O2SAT 94
[2024-08-15 20:19] LABS: Appearance Urine Cloudy; Color Urine Yellow; Glucose Urine UA Negative (Negative); Leukocyte Esterase Urine Large (3+) (Negative); Nitrite Urine Negative (Negative); Specific Gravity - Urine 1.025 (1.005-1.025); UMIC TRIGGER UACC YES; Urine Blood Large (3+) (Negative); Urine Ketones Negative (Negative); Urine Protein 100 (2+) mg/dL (Neg-Trace)
[2024-08-15 20:53] LABS: Bacteria Urine 2+ (None Seen); RBC Urine >20 /HPF (0-2); Squamous Epithelial Cell Urine 0-2 /HPF (0-2); UACC Culture Trigger YES; WBC Urine >50 /HPF (0-5)
[2024-08-15 21:37] VITALS: BP 120/76; PULSE 90; RESP 18; TEMP 37; O2SAT 97
--- NOTE | 2024-08-15 22:20 | PC.NURSE ---
Called [facility] to give report. Advised to call back in 15 min as nurse is not available at this time. Will call back in 15 min.
[2024-08-16 00:25] VITALS: BP 120/76; PULSE 90; RESP 18; TEMP 37; O2SAT 97
== END 2024-08-16 00:27 | disposition skilled nursing facility (03) ==
PROVIDERS: Emergency Provider Emergency Medicine; PCP Internal Medicine Geriatric Medicine
DX: T83.028A Displacement of other urinary catheter, initial encounter (principal); Y73.8 Miscellaneous gastroenterology and urology devices associated with adverse incidents, not elsewhere classified; Y92.129 Unspecified place in nursing home as the place of occurrence of the external cause; N39.0 Urinary tract infection, site not specified; R33.9 Retention of urine, unspecified; N31.9 Neuromuscular dysfunction of bladder, unspecified; F01.50 Vascular dementia, unspecified severity, without behavioral disturbance, psychotic disturbance, mood disturbance, and anxiety; I10 Essential (primary) hypertension; E78.5 Hyperlipidemia, unspecified; I48.0 Paroxysmal atrial fibrillation; Z93.6 Other artificial openings of urinary tract status; Z86.73 Personal history of transient ischemic attack (TIA), and cerebral infarction without residual deficits; Z79.02 Long term (current) use of antithrombotics/antiplatelets; Z79.01 Long term (current) use of anticoagulants; Z79.899 Other long term (current) drug therapy
CPT/HCPCS: 36415; 51702; 80048; 80076; 81001; 83605; 83690; 84484; 85025; 87040; 87086; 99284

== ENCOUNTER 2024-08-31 14:27 | Emergency (ER) | payer OTHER, SELFPAY ==
[2024-08-31 14:45] VITALS: BP 121/68; BP 124/68; PULSE 82; PULSE 83; RESP 12; TEMP 36.9; O2SAT 97; O2SAT 99; BMI 25.1
[2024-08-31 15:10] VITALS: O2SAT 84
[2024-08-31 15:15] VITALS: O2SAT 98
[2024-08-31 15:17] LABS: Appearance Urine Turbid; Glucose Urine UA Negative (Negative); PH >= 9.0 (5.0-9.0); Specific Gravity - Urine 1.015 (1.005-1.025); UMIC TRIGGER UACC YES
[2024-08-31 15:28] LABS: Other Crystals Urine Present; UACC Culture Trigger YES
[2024-08-31 15:36] LABS: Alanine Aminotransferase 20 U/L (0-40); Albumin Level 2.5 g/dL (3.5-5.0); Alkaline Phosphatase 85 U/L (39-117); Anion Gap 11 (12-20); Aspartate Amino Transferase 46 U/L (5-37); Blood Urea Nitrogen 47 mg/dL (9-16); Calcium 8.5 mg/dL (8.4-10.2); Carbon Dioxide 28 mmol/L (22-29); Chloride 107 mmol/L (96-108); Creatinine Clr Calc Pharmacy 61.5; Estimated Glomerular Filt Rate > 60; Potassium 3.9 mmol/L (3.3-5.1); Sodium 142 mmol/L (135-145); Total Protein 7.1 g/dL (6.5-8.0)
--- NOTE | 2024-08-31 15:49 | ED.RECABL ---
HPI - Recheck/Abnormal Lab/Rx General Chief Complaint: Recheck/Abnormal Lab/Rx Stated Complaint: PER EMS ABN LABS Time Seen by Provider: 08/31/24 15:32 Source: EMS Mode of arrival: EMS Limitations: other (Nonverbal) History of Present Illness ED Provider: Related Data Home Medications ?Medication ?Instructions ?Recorded ?Confirmed acetaminophen 325 mg tablet 650 mg PO Q4H PRN fever/pain 02/16/21 06/29/24 calcium 600 mg (as 1 tab PO BID 02/16/21 06/29/24 carbonate)-vitamin D3 5 mcg (200 unit) tablet magnesium hydroxide 400 mg/5 mL 30 ml PO DAILY PRN No BM in 3 Days 02/16/21 06/29/24 oral suspension (Milk of Magnesia) levetiracetam 100 mg/mL oral 2.5 ml PO BID 02/26/21 06/29/24 solution atorvastatin 80 mg tablet 80 mg PO DAILY 01/26/22 06/29/24 rivaroxaban 20 mg tablet (Xarelto) 20 mg PO DAILY@1700 01/26/22 06/29/24 magnesium citrate 150 ml PO DAILY PRN No BM in 12 hrs 02/15/22 06/29/24 sodium phosphates 19 gram-[address] DAILY PRN If no BM in 8 02/15/22 06/29/24 gram/118 mL enema (Fleet Enema) hours after use of Bisacodyl acetaminophen 325 mg tablet 650 mg PO BEDTIME 10/03/22 06/29/24 (Tylenol) acetic acid 0.25 % irrigation 50 ml irrigation TUTHSA@2100 10/03/22 06/29/24 solution ferrous sulfate 325 mg (65 mg 325 mg PO DAILY 12/22/22 06/29/24 iron) tablet multivitamin 1 tab PO DAILY 01/18/24 06/29/24 psyllium 1 ea PO BEDTIME 01/18/24 06/29/24 sodium hypochlorite 0.125 % 1 appl topical BEDTIME 01/18/24 06/29/24 solution oxycodone 5 mg tablet 5 mg PO DAILY PRN Pain/Wound 04/19/24 06/29/24 Management simethicone 80 mg chewable tablet 80 mg PO Q6H PRN Abdominal 04/19/24 06/29/24 Distention collagenase clostridium histo. 250 1 appl topical DAILY 06/29/24 06/29/24 unit/gram topical ointment (Santyl) oxycodone 5 mg tablet 5 mg PO DAILY 06/29/24 06/29/24 Previous Rx's ?Medication ?Instructions ?Recorded wet wipes #5 multiple units 03/12/20 tamsulosin 0.4 mg capsule 0.4 mg PO BEDTIME 90 days #90 caps 03/22/20 gabapentin 300 mg capsule 300 mg PO BEDTIME 30 days #30 caps 03/27/20 miscellaneous medical supply #1 ea 03/27/20 ascorbic acid (vitamin C) 1,000 mg 1,000 mg PO DAILY 90 days #90 tabs 01/27/22 tablet methenamine hippurate 1 gram tablet 1 g PO daily 90 days #90 tabs 01/27/22 linezolid 600 mg tablet (Zyvox) 600 mg PO BID #34 tabs 07/10/24 potassium chloride 20 mEq 20 meq PO BID #60 tabs 07/10/24 tablet,extended release(part/cryst) vancomycin 25 mg/mL oral solution 125 mg (5 mL) PO Q6H #76 mL 07/10/24 (Firvanq) cefuroxime axetil 250 mg tablet 250 mg PO BID 7 days #14 tabs 08/15/24 Allergies Allergy/AdvReac Type Severity Reaction Status Date / Time No Known Allergies (No Known Allergy Verified 08/31/24 14:47 Allergies*) [facility] Past Medical History Medical History Multiple renal calculi 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 Mother No problems noted. Social History Social History Household Members: None and Other Household Members Other:: SNF Housing: Long Term Are you a primary daycare director to a significant other at home: No Do you presently have visiting nurse or other home services: Yes Unable to assess alcohol history related to: Unable to respond Alcohol intake: former Comment: patient sleeping Patient Tobacco Use Status: Tobacco use Unknown Second Hand Smoke Exposure: No Advance Directives Date on File: 02/14/20 Do you have a plan to hurt others: No Plan service: No Current occupational status: disabled Physical Exam Vital Signs: Vital Signs: Last Vital Signs Temp 98.5 F 08/31/24 14:45 Pulse 83 08/31/24 14:45 Resp 12 08/31/24 14:45 BP 121/68 08/31/24 14:45 Pulse Ox 98 08/31/24 15:15 O2 Del Method Nasal Cannula 08/31/24 15:15 O2 Flow Rate 2 08/31/24 15:15 BMI result Body Mass Index 25.1 Const: Other: General: Awake, chronically ill-appearing male, in no distress response to verbal stimuli Head: Normocephalic, atraumatic EENT: Pupils equal round reactive to light, sclera conjunctiva normal, mouth revealed moist membranes Neck: Supple, no adenopathy Lung: breath sounds symmetric, no wheezing, rales or rhonchi Chest: symmetric movement, nontender Heart: regular rate and rhythm, normal S1, S2 no murmurs or rubs Abdomen: soft, non-tender, nondistended, normal bowel sounds, suprapubic catheter is in place and right nephrostomy in place as well Extremities: Patient has contraction and atrophy of his right upper and lower extremity secondary to his hemiplegia Neuro: Awake, right-sided hemiplegia, I did not appreciate any infected decubitus ulcers Medical Decision Making Medical Decision Making MDM Narrative: Patient is chronically ill multiple medical problems, has not nephrostomy and suprapubic catheter both of which seem to be functional without any issues, presenting with reports of hemoglobin 6.7 from SNF, he has had prior admissions and workup for GI bleed that has been negative, patient seems to be his baseline, I did leave a message for his daughter to make sure she is aware that her father is in the ER and I suspect he will need to have blood transfusion and if everything else is unremarkable to discharge him. H&H is 7.7 and 23.5 Differential Diagnosis Differential Diagnoses: The differential diagnosis associated with the presentation includes Sepsis, dehydration, chronic anemia, upper GI bleed, lower GI bleed, blood dyscrasias Admission/Observation Consideration of admission/observation: Escalation of care including admission/observation considered Lab Data 08/31/24 16:26 08/31/24 15:04 Labs: Lab Results 08/31/24 08/31/24 Range/Units 15:04 16:26 WBC 4.8 (4.8-10.8) X10*3/uL RBC 2.38 L (4.60-5.80) X10*6/uL Hgb 7.7 L (14.0-18.0) g/dl Hct 23.5 L (42.0-52.0) % MCV 98.7 H (80.0-98.0) fL MCH 32.4 (27.0-33.0) pg MCHC 32.8 (31.0-36.0) g/dl RDW 16.8 H (11.0-16.0) % Plt Count 224 (160-400) X10*3/uL MPV 9.1 L (9.4-12.4) fL Immature Gran % (Auto) 0.4 (0.0-0.4) % Neut % (Auto) 59.3 (45-73) % Lymph % (Auto) 24.3 (20-40) % [place] % (Auto) 10.6 (2-11) % Eos % (Auto) 5.0 H (0-4) % Baso % (Auto) 0.4 (0-2) % Lymph # (Auto) 1.2 (1.2-4.9) X10*3/uL [place] # (Auto) 0.5 (0.1-1.2) X10*3/uL Eos # (Auto) 0.2 (0.0-0.4) X10*3/uL Baso # (Auto) 0.0 (0.0-0.2) X10*3/uL Abs Immat Gran (auto) 0.02 (0.00-0.03) X10*3/uL Absolute Neuts (auto) 2.9 (2.0-8.3) x10*3/uL Absolute Nucleated RBC 0.000 (0.0-0.012) X10*3/uL Nucleated RBC % (auto) 0.0 (0.0-0.2) /100WBC Sodium 142 (135-145) mmol/L Potassium 3.9 (3.3-5.1) mmol/L Chloride 107 (96-108) mmol/L Carbon Dioxide 28 (22-29) mmol/L Anion Gap 11 L (12-20) BUN 47 H (9-16) mg/dL Creatinine 1.17 (0.5-1.4) mg/dL Estim Creat Clear Calc 61.5 Estimated GFR > 60 Random Glucose 115 (60-115) mg/dL Calcium 8.5 (8.4-10.2) mg/dL Total Bilirubin 0.4 (0.0-1.0) mg/dL AST 46 H (5-37) U/L ALT 20 (0-40) U/L Alkaline Phosphatase 85 (39-117) U/L Total Protein 7.1 (6.5-8.0) g/dL Albumin 2.5 L (3.5-5.0) g/dL Urine Color Yellow Urine Appearance Turbid Urine pH >= 9.0 (5.0-9.0) Ur Specific [place] 1.015 (1.005-1.025) Urine Protein 100 (2+) H (Neg-Trace) mg/dL Urine Glucose (UA) Negative (Negative) mg/dL Urine Ketones Negative (Negative) mg/dL Urine Blood Large (3+) H (Negative) Urine Nitrite Negative (Negative) Ur Leukocyte Esterase Large (3+) H (Negative) Urine RBC 11-20 H (0-2) /HPF Urine WBC 11-20 H (0-5) /HPF Ur Squamous Epith Cells 3-5 (0-2) /HPF Other Crystals Present Urine Bacteria 4+ (None Seen) Hyaline Casts >20 (0-2) /LPF Blood Type A Positive Antibody Screen NEGATIVE Chronic Conditions Patient?s care impacted by: Other (Nonverbal, bed-bound,) Discharge Plan Discharge Clinical Impression: Microcytic anemia Patient Disposition: Home, Self-Care Instructions: Anemia (ED) Additional Instructions: Patient is sent in with reports of hemoglobin of 6.7,Has had frequent blood transfusions, his hemoglobin is 7.7 and hematocrit is 23.5, he has microcytic anemia, I recommend that he has a follow up with Hematology, and has scheduled iron infusion therapy and blood transfusion as needed for the having to utilize ED as this exposes the patient to risks of infections, delirium, I left a message with his daughter but otherwise he will be discharged back to your facility. Prescriptions: No Action (DME) wet wipes See Rx Instructions .ROUTE .MEDSUPPLY Qty: 5 3RF Rx Instructions: As directed levetiracetam 100 mg/mL solution 2.5 ml PO BID acetaminophen 325 mg Tablet 650 mg PO Q4H PRN (Reason: fever/pain) calcium carbonate-vitamin D3 600 mg-5 mcg (200 unit) Tablet 1 tab PO BID magnesium hydroxide [Milk of Magnesia] 400 mg/5 mL Suspension 30 ml PO DAILY PRN (Reason: No BM in 3 Days) Rx Instructions: (step 1) If no BM for 3 days Fleet Enema 19-7 gram/118 mL Enema [address] DAILY PRN (Reason: If no BM in 8 hours after use of Bisacodyl) Rx Instructions: (Step 3) If no BM 8 hours after Bisacodyl supp. magnesium citrate Solution 150 ml PO DAILY PRN (Reason: No BM in 12 hrs) Rx Instructions: (step 4) If no BM in 12 hours give 1 bottle ferrous sulfate 325 mg (65 mg iron) Tablet 325 mg PO DAILY multivitamin Tablet 1 tab PO DAILY psyllium Powder 1 ea PO BEDTIME Rx Instructions: mix into at least 8 oz of water or juice before administering sodium hypochlorite 0.125 % Solution 1 appl TOPICAL BEDTIME Rx Instructions: APPLY TO COCCYX WOUND TOPICALLY EVERY PLEAT TAPER FOR WOUND CARE TO PRESSURE AREA, CLEANSE WITH DAKIN'S SOLUTION, PACK WITH HYDRAFERA BLUE, COVER WITH DRY CLEAN DRESSING DAILY. oxycodone 5 mg Tablet 5 mg PO DAILY PRN (Reason: Pain/Wound Management) simethicone 80 mg Tablet,Chewable 80 mg PO Q6H PRN (Reason: Abdominal Distention) cefuroxime axetil 250 mg tablet 250 mg PO BID 7 Days Qty: 14 0RF acetaminophen [Tylenol] 325 mg Tablet 650 mg PO BEDTIME acetic acid 0.25 % Solution 50 ml IRRIGATION TUTHSA@2100 Rx Instructions: for urinary catheter flush Santyl 250 unit/gram Ointment 1 appl TOPICAL DAILY Rx Instructions: Cleans right hip with normal saline, then apply Santyl, Cover with dry clean dressing oxycodone 5 mg tablet 5 mg PO DAILY potassium chloride 20 mEq Tablet,Er Particles/Crystals 20 meq PO BID Qty: 60 0RF linezolid [Zyvox] 600 mg tablet 600 mg PO BID Qty: 34 0RF vancomycin [Firvanq] 25 mg/mL Recon Soln 125 mg PO Q6H Qty: 76 0RF gabapentin 300 mg capsule 300 mg PO BEDTIME 30 Days Qty: 30 0RF (DME) miscellaneous medical supply Misc See Rx Instructions .ROUTE .MEDSUPPLY Qty: 1 0RF Rx Instructions: RUE resting hand Splint/Sling As directed, Dx: G81.91, I67.89, duration 999 days/life time tamsulosin 0.4 mg capsule 0.4 mg PO BEDTIME 90 Days Qty: 90 1RF Xarelto 20 mg tablet 20 mg PO DAILY@1700 atorvastatin 80 mg tablet 80 mg PO DAILY ascorbic acid (vitamin C) 1,000 mg tablet 1,000 mg PO DAILY 90 Days Qty: 90 1RF methenamine hippurate 1 gram tablet 1 g PO daily 90 Days Qty: 90 1RF Print Language: Austrian
[2024-08-31 16:32] LABS: Hematocrit 23.5 % (42.0-52.0); Hemoglobin 7.7 g/dl (14.0-18.0); Imm Gran Abs Auto 0.02 X10*3/uL (0.00-0.03); Imm Gran Pct Auto 0.4 % (0.0-0.4); Lymphocytes Absolute Auto 1.2 X10*3/uL (1.2-4.9); Mean Corpuscular HGB Conc 32.8 g/dl (31.0-36.0); Mean Corpuscular Hemoglobin 32.4 pg (27.0-33.0); Mean Corpuscular Volume 98.7 fL (80.0-98.0); NRBC Abs Auto 0.000 X10*3/uL (0.0-0.012); NRBC Pct Auto 0.0 /100WBC (0.0-0.2); Platelet Count 224 X10*3/uL (160-400); Red Blood Count 2.38 X10*6/uL (4.60-5.80); White Blood Count 4.8 X10*3/uL (4.8-10.8)
[2024-08-31 16:57] VITALS: BP 127/81; PULSE 79; RESP 14; TEMP 36.9; O2SAT 95
--- NOTE | 2024-08-31 17:00 | PC.NURSE ---
Report given to Doreen GRIDER @ [facility], questions answered.
[2024-08-31 19:13] VITALS: BP 111/67; PULSE 76; RESP 18; TEMP 36.9; O2SAT 100
== END 2024-08-31 19:14 | disposition home or self-care (01) ==
PROVIDERS: Emergency Provider Emergency Medicine; PCP Internal Medicine
DX: D50.9 Iron deficiency anemia, unspecified (principal); Z79.899 Other long term (current) drug therapy
CPT/HCPCS: 36415; 80053; 81001; 85025; 86850; 86900; 86901; 87086; 99283; 99284

== ENCOUNTER 2024-09-07 09:52 | Emergency (ER) | payer OTHER, SELFPAY ==
[2024-09-07 10:11] VITALS: BP 116/71; PULSE 88; RESP 16; TEMP 36.7; O2SAT 97; BMI 23.0
--- NOTE | 2024-09-07 10:13 | ED.RECABL ---
HPI - Recheck/Abnormal Lab/Rx General Chief Complaint: Recheck/Abnormal Lab/Rx Stated Complaint: LOW H&H Time Seen by Provider: 09/07/24 10:07 Source: patient and EMS Mode of arrival: EMS Limitations: other (dementia) History of Present Illness ED Provider: ELIEZER HPI narrative: 68 yo male who is chronically ill with hx of vascular dementia, CVA - R sided hemiparesis, neurogenic bladder with chronic suprapubic tube/L sided nephrostomy, sacral decubitus ulcer with osteo, c diff colitis, seizures, HTN, HLD, ESBL UTI, afib on xarelto, chronic anemia he is here today with c/o drop in hemoglobin at [facility] just seen here 08/31 but hemoglobin 7.7 at that time so no blood transfusion. His baseline hemoglobin is around 8.3. Patient is non verbal and has no complaints. On arrival here he does have dark brown stool in diaper. MD complaint: abnormal lab Initial visit (ago): day(s) (1) Initial visit for: other Returns today for: called because of abnormal lab/test Description of abnormal result: hemoglobin 6.7 Associated symptoms: none Related Data Home Medications ?Medication ?Instructions ?Recorded ?Confirmed acetaminophen 325 mg tablet 650 mg PO Q4H PRN fever/pain 02/16/21 06/29/24 calcium 600 mg (as 1 tab PO BID 02/16/21 06/29/24 carbonate)-vitamin D3 5 mcg (200 unit) tablet magnesium hydroxide 400 mg/5 mL 30 ml PO DAILY PRN No BM in 3 Days 02/16/21 06/29/24 oral suspension (Milk of Magnesia) levetiracetam 100 mg/mL oral 2.5 ml PO BID 02/26/21 06/29/24 solution atorvastatin 80 mg tablet 80 mg PO DAILY 01/26/22 06/29/24 rivaroxaban 20 mg tablet (Xarelto) 20 mg PO DAILY@1700 01/26/22 06/29/24 magnesium citrate 150 ml PO DAILY PRN No BM in 12 hrs 02/15/22 06/29/24 sodium phosphates 19 gram-7 118 ml ND DAILY PRN If no BM in 8 02/15/22 06/29/24 gram/118 mL enema (Fleet Enema) hours after use of Bisacodyl acetaminophen 325 mg tablet 650 mg PO BEDTIME 10/03/22 06/29/24 (Tylenol) acetic acid 0.25 % irrigation 50 ml irrigation TUTHSA@2100 10/03/22 06/29/24 solution ferrous sulfate 325 mg (65 mg 325 mg PO DAILY 12/22/22 06/29/24 iron) tablet multivitamin 1 tab PO DAILY 01/18/24 06/29/24 psyllium 1 ea PO BEDTIME 01/18/24 06/29/24 sodium hypochlorite 0.125 % 1 appl topical BEDTIME 01/18/24 06/29/24 solution oxycodone 5 mg tablet 5 mg PO DAILY PRN Pain/Wound 04/19/24 06/29/24 Management simethicone 80 mg chewable tablet 80 mg PO Q6H PRN Abdominal 04/19/24 06/29/24 Distention collagenase clostridium histo. 250 1 appl topical DAILY 06/29/24 06/29/24 unit/gram topical ointment (Santyl) oxycodone 5 mg tablet 5 mg PO DAILY 06/29/24 06/29/24 Previous Rx's ?Medication ?Instructions ?Recorded wet wipes #5 multiple units 03/12/20 tamsulosin 0.4 mg capsule 0.4 mg PO BEDTIME 90 days #90 caps 03/22/20 gabapentin 300 mg capsule 300 mg PO BEDTIME 30 days #30 caps 03/27/20 miscellaneous medical supply #1 ea 03/27/20 ascorbic acid (vitamin C) 1,000 mg 1,000 mg PO DAILY 90 days #90 tabs 01/27/22 tablet methenamine hippurate 1 gram tablet 1 g PO daily 90 days #90 tabs 01/27/22 linezolid 600 mg tablet (Zyvox) 600 mg PO BID #34 tabs 07/10/24 potassium chloride 20 mEq 20 meq PO BID #60 tabs 07/10/24 tablet,extended release(part/cryst) vancomycin 25 mg/mL oral solution 125 mg (5 mL) PO Q6H #76 mL 07/10/24 (Firvanq) cefuroxime axetil 250 mg tablet 250 mg PO BID 7 days #14 tabs 08/15/24 Allergies Allergy/AdvReac Type Severity Reaction Status Date / Time No Known Allergies (No Known Allergy Verified 09/07/24 10:11 Allergies*) Review of Systems Review of Systems: ROS unable to be obtained due to non verbal status [facility] Past Medical History Attestation statement: The following information was validated with the patient. Source: old records reviewed Medical History Multiple renal calculi 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 Mother No problems noted. Social History Social History Household Members: None and Other Household Members Other:: SNF Housing: Intermediate Are you a primary health care legal assistant to a significant other at home: No Do you presently have visiting nurse or other home services: Yes Unable to assess alcohol history related to: Unable to respond Alcohol intake: former Comment: patient sleeping Patient Tobacco Use Status: Tobacco use Unknown Second Hand Smoke Exposure: No Advance Directives: Yes Advance Directives on File: Yes Advance Directives Date on File: 02/14/20 Do you have a plan to hurt others: No Plan service: No Current occupational status: disabled Physical Exam Vital Signs: Vital Signs: Last Vital Signs Temp 98.0 F 09/07/24 10:11 Pulse 88 09/07/24 10:11 Resp 16 09/07/24 10:11 BP 116/71 09/07/24 10:11 Pulse Ox 97 09/07/24 10:11 O2 Del Method Room Air 09/07/24 10:11 BMI result Body Mass Index 23.0 Appearance: Alert. at baseline, non verbal and R sided deficits. No acute distress. Eyes: Pupils equal, round and reactive to light. ENT: Pharynx normal. Neck: Normal inspection. Neck supple. CVS: Normal heart rate and rhythm. Pulses normal. Respiratory: No respiratory distress. Breath sounds normal. Abdomen: Soft and nontender. SP and nephro tube seem to be draining no issues, Skin: Skin warm and dry. pale skin color. Extremities: No lower extremity edema. Neuro:tracks with eyes, non verbal R sided hemiparesis Medical Decision Making Medical Decision Making [facility] Narrative: 68 yo male who is chronically ill with hx of vascular dementia, CVA - R sided hemiparesis, neurogenic bladder with chronic suprapubic tube/L sided nephrostomy, sacral decubitus ulcer with osteo, c diff colitis, seizures, HTN, HLD, ESBL UTI, chronic anemia now here with anemia again - at this time will repeat labs and obtain occult stool as it is darker. No other obvious issue at this time but patient is very complicated. Differential Diagnosis Differential Diagnoses: The differential diagnosis associated with the presentation includes chronic anemia, UGIB Admission/Observation Consideration of admission/observation: Escalation of care including admission/observation considered lab stable H/H 7.7 at this time no indication for transfusion no change VS stable and guiac negative has slight trend in BUN up but again no drop in H/H from 08/31 Lab Data [facility] Lab Attestation statement: I reviewed the patient's lab results. 09/07/24 10:33 09/07/24 10:33 Labs: Lab Results 09/07/24 Range/Units 10:33 WBC 6.2 (4.8-10.8) X10*3/uL RBC 2.39 L (4.60-5.80) X10*6/uL Hgb 7.7 L (14.0-18.0) g/dl Hct 23.8 L (42.0-52.0) % MCV 99.6 H (80.0-98.0) fL MCH 32.2 (27.0-33.0) pg MCHC 32.4 (31.0-36.0) g/dl RDW 16.4 H (11.0-16.0) % Plt Count 246 (160-400) X10*3/uL MPV 9.4 (9.4-12.4) fL Immature Gran % (Auto) 0.2 (0.0-0.4) % Neut % (Auto) 66.4 (45-73) % Lymph % (Auto) 19.9 L (20-40) % [place] % (Auto) 9.6 (2-11) % Eos % (Auto) 3.6 (0-4) % Baso % (Auto) 0.3 (0-2) % Lymph # (Auto) 1.2 (1.2-4.9) X10*3/uL [place] # (Auto) 0.6 (0.1-1.2) X10*3/uL Eos # (Auto) 0.2 (0.0-0.4) X10*3/uL Baso # (Auto) 0.0 (0.0-0.2) X10*3/uL Abs Immat Gran (auto) 0.01 (0.00-0.03) X10*3/uL Absolute Neuts (auto) 4.1 (2.0-8.3) x10*3/uL Absolute Nucleated RBC 0.000 (0.0-0.012) X10*3/uL Nucleated RBC % (auto) 0.0 (0.0-0.2) /100WBC Hold Blue Top SEE NOTE Sodium 143 (135-145) mmol/L Potassium 3.8 (3.3-5.1) mmol/L Chloride 107 (96-108) mmol/L Carbon Dioxide 31 H (22-29) mmol/L Anion Gap 9 L (12-20) BUN 45 H (9-16) mg/dL Creatinine 1.21 (0.5-1.4) mg/dL Estim Creat Clear Calc 57.5 Estimated GFR 59 Random Glucose 165 H (60-115) mg/dL Calcium 8.4 (8.4-10.2) mg/dL Total Bilirubin 0.5 (0.0-1.0) mg/dL AST 23 (5-37) U/L ALT 11 (0-40) U/L Alkaline Phosphatase 97 (39-117) U/L Total Protein 6.5 (6.5-8.0) g/dL Albumin 2.4 L (3.5-5.0) g/dL Stool Occult Blood NEGATIVE (NEGATIVE) Blood Type A Positive Independent Historian Clinical information obtained from an independent historian. History obtained from or confirmed by: EMS External Record Review External record reviewed: Outpatient record Discharge Plan Discharge Clinical Impression: Anemia, chronic disease Patient Disposition: Home, Self-Care Instructions: Anemia (ED) Additional Instructions: please note today hemoglobin 7.7 no change from 7 no indication for transfusion stool occult negative for blood return for any worsening symptoms or concerns can repeat hemoglobin in 24 hours Prescriptions: No Action (DME) wet wipes See Rx Instructions .ROUTE .MEDSUPPLY Qty: 5 3RF Rx Instructions: As directed levetiracetam 100 mg/mL solution 2.5 ml PO BID acetaminophen 325 mg Tablet 650 mg PO Q4H PRN (Reason: fever/pain) calcium carbonate-vitamin D3 600 mg-5 mcg (200 unit) Tablet 1 tab PO BID magnesium hydroxide [Milk of Magnesia] 400 mg/5 mL Suspension 30 ml PO DAILY PRN (Reason: No BM in 3 Days) Rx Instructions: (step 1) If no BM for 3 days Fleet Enema 19-7 gram/118 mL Enema 118 ml ND DAILY PRN (Reason: If no BM in 8 hours after use of Bisacodyl) Rx Instructions: (Step 3) If no BM 8 hours after Bisacodyl supp. magnesium citrate Solution 150 ml PO DAILY PRN (Reason: No BM in 12 hrs) Rx Instructions: (step 4) If no BM in 12 hours give 1 bottle ferrous sulfate 325 mg (65 mg iron) Tablet 325 mg PO DAILY multivitamin Tablet 1 tab PO DAILY psyllium Powder 1 ea PO BEDTIME Rx Instructions: mix into at least 8 oz of water or juice before administering sodium hypochlorite 0.125 % Solution 1 appl TOPICAL BEDTIME Rx Instructions: APPLY TO COCCYX WOUND TOPICALLY EVERY PIPE LAYER HELPER FOR WOUND CARE TO PRESSURE AREA, CLEANSE WITH DAKIN'S SOLUTION, PACK WITH HYDRAFERA BLUE, COVER WITH DRY CLEAN DRESSING DAILY. oxycodone 5 mg Tablet 5 mg PO DAILY PRN (Reason: Pain/Wound Management) simethicone 80 mg Tablet,Chewable 80 mg PO Q6H PRN (Reason: Abdominal Distention) cefuroxime axetil 250 mg tablet 250 mg PO BID 7 Days Qty: 14 0RF acetaminophen [Tylenol] 325 mg Tablet 650 mg PO BEDTIME acetic acid 0.25 % Solution 50 ml IRRIGATION TUTHSA@2100 Rx Instructions: for urinary catheter flush Santyl 250 unit/gram Ointment 1 appl TOPICAL DAILY Rx Instructions: Cleans right hip with normal saline, then apply Santyl, Cover with dry clean dressing oxycodone 5 mg tablet 5 mg PO DAILY potassium chloride 20 mEq Tablet,Er Particles/Crystals 20 meq PO BID Qty: 60 0RF linezolid [Zyvox] 600 mg tablet 600 mg PO BID Qty: 34 0RF vancomycin [Firvanq] 25 mg/mL Recon Soln 125 mg PO Q6H Qty: 76 0RF gabapentin 300 mg capsule 300 mg PO BEDTIME 30 Days Qty: 30 0RF (DME) miscellaneous medical supply Misc See Rx Instructions .ROUTE .MEDSUPPLY Qty: 1 0RF Rx Instructions: RUE resting hand Splint/Sling As directed, Dx: G81.91, I67.89, duration 999 days/life time tamsulosin 0.4 mg capsule 0.4 mg PO BEDTIME 90 Days Qty: 90 1RF Xarelto 20 mg tablet 20 mg PO DAILY@1700 atorvastatin 80 mg tablet 80 mg PO DAILY ascorbic acid (vitamin C) 1,000 mg tablet 1,000 mg PO DAILY 90 Days Qty: 90 1RF methenamine hippurate 1 gram tablet 1 g PO daily 90 Days Qty: 90 1RF Print Language: Martiniquais
[2024-09-07 10:38] LABS: MANUAL DIFF FLAG NO
[2024-09-07 10:42] LABS: OBS Int Ctl Valid YES; OBS Lot 0224; OBS1 NEGATIVE (NEGATIVE)
--- NOTE | 2024-09-07 10:50 | PC.NURSE ---
coming from SNF for abnormal labs, patient cleaned and repositioned in bed. dark stool cleaned from patient. IV established, labs obtained and sent. stool occult sent as well.
[2024-09-07 11:01] LABS: Alanine Aminotransferase 11 U/L (0-40); Albumin Level 2.4 g/dL (3.5-5.0); Alkaline Phosphatase 97 U/L (39-117); Anion Gap 9 (12-20); Aspartate Amino Transferase 23 U/L (5-37); Blood Urea Nitrogen 45 mg/dL (9-16); Calcium 8.4 mg/dL (8.4-10.2); Carbon Dioxide 31 mmol/L (22-29); Chloride 107 mmol/L (96-108); Creatinine Clr Calc Pharmacy 57.5; Estimated Glomerular Filt Rate 59; Potassium 3.8 mmol/L (3.3-5.1); Sodium 143 mmol/L (135-145); Total Protein 6.5 g/dL (6.5-8.0)
[2024-09-07 11:16] LABS: Hematocrit 23.8 % (42.0-52.0); Hemoglobin 7.7 g/dl (14.0-18.0); Imm Gran Abs Auto 0.01 X10*3/uL (0.00-0.03); Imm Gran Pct Auto 0.2 % (0.0-0.4); Lymphocytes Absolute Auto 1.2 X10*3/uL (1.2-4.9); Mean Corpuscular HGB Conc 32.4 g/dl (31.0-36.0); Mean Corpuscular Hemoglobin 32.2 pg (27.0-33.0); Mean Corpuscular Volume 99.6 fL (80.0-98.0); NRBC Abs Auto 0.000 X10*3/uL (0.0-0.012); NRBC Pct Auto 0.0 /100WBC (0.0-0.2); Platelet Count 246 X10*3/uL (160-400); Red Blood Count 2.39 X10*6/uL (4.60-5.80); White Blood Count 6.2 X10*3/uL (4.8-10.8)
--- OUTSIDE RECORDS SUMMARY | 2024-09-07 11:37 | XMS_ITS | Encounter Summary ---
Author Organization 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 Mechanic Name Role Phone Lauren Wiley MD Primary Care Provider + Encounter Details Date Type Department Care Team (Late st Contact Info) Description 08/16/2024 Lab Requisition [facility] - Main Lab [address] [facility] [place] [address] Lauren Wiley MD [address] [id number] Anemia, unspecified Social History Tobacco Use Types Packs/Day Years Used Date Smoking Tobacco: Never Assessed Sex and Gender Information Value Date Recorded Sex Assigned at Not on file Legal Sex Male 4:31 AM EST Gender Identity Not on file Sexual Orientation Not on file documented as of this encounter Plan of Treatment Not on file documented as of this encounter Visit Diagnoses Diagnosis Anemia, unspecified documented in this encounter Additional Health Concerns Infection Onset Date Last Indicated 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
--- OUTSIDE RECORDS SUMMARY | 2024-09-07 11:38 | XMS_ITS | Patient Health Record ---
Author Organization [facility] Address [address] [facility] [address] [place] [address] Care Team Providers Care Community Planner Name Role Phone Elder Lauren MARTINEZ Primary Care Provider Jean Paul Flowers Unavailable [phone] Allergies Allergen (clinical drug ingredient) Drug/Non Drug Allergy documented on EMR Reaction Allergy Type Onset Date Status No Known Drug Allergy Unknown Drug Allergy Active No Known Food Allergy Unknown Drug Allergy Active Reason For Referral No Information Medications Medication SIG (Take, Route, Frequency, Duration) Notes Start Date End Date Status Tamsulosin HCl 0.4 MG 1 capsule Orally O nce a day Unknown amLODIPine Besylate 5 MG 1 tablet Orally Once a day Unknown Acetaminophen 325 MG 1 tablet as needed Orally every 6 hrs Unknown Atorvastatin Calcium 80 MG 1 tablet Oral ly Once a day Unknown Xarelto 20 MG 1 tablet with food Orally Once a day Unknown Ferrous Sulfate 325 (65 Fe) MG 1 tablet Orally Three times a Week Unknown Gabapentin 300 MG 1 capsule Orally Onc e a day Unknown Metamucil 3 in 1 Daily Fiber 400 MG as directed Orally Unknown oxyCODONE HCl 5 MG 1 tablet as needed Orally every 6 hrs Unknown Potassium Chloride ER 20 MEQ 1 tablet with food Orally Once a day Unknown Senna 8.6 MG 2 tablets at bedtime as needed Orally Once a day Unknown Acetic Acid 5 % Every evening Tues, Thurs, Sat Unknown Keppra 100 MG/ML 2.5 mL Orally every 12 hrs Unknown Lidocaine 5 % 1 patch remove after 12 hours Externally Once a day Unknown Losartan Potassium 100 MG 1 tablet Orall y Once a day Unknown Social History Tobacco Use: Social History Observation Description Date Details (start date - stop date) Never Smoker NA - NA Household Question Answer Notes Marital status: Tobacco Control (Standard) Question Answer Notes Tobacco use: Nonsmoker Section Notes: Currently resides in a SNF. Currently resides in a SNF. Currently resides in a SNF. Currently resides in a SNF. Currently resides in a SNF. Currently resides in a SNF. Currently resides in a SNF. Currently resides in a SNF. 4-10-2025 Currently resides in a SNF. 06-08-2024 Currently resides in a SNF. 06-15-2024 Currently resides in a SNF. 06-22-2024 Currently resides in a SNF. Currently resides in a SNF. Currently resides in a SNF. Currently resides in a SNF. Currently resides in a SNF. Problems Problem Type SNOMED Code ICD Code Onset Dates Problem Status W/U Status Risk Notes Problem Anemia (207080175) Anemia, unspecified (D64.9) Active confirmed Problem Hyperlipidemia (61528447) Hyperlipidemia, unspecified (E78.5) Active confirmed Problem Epilepsy (91180887) Epilepsy, unspecified, not intractable, without status epilepticus (G40.909) Active confirmed Problem Insomnia (876425912) Insomnia, unspecified (G47.00) Active confirmed Problem Chronic pain (36565146) Other chronic pain (G89.29) Active confirmed Problem Essential hypertension (15722725) Essential (primary) hypertension (I10) Active confirmed Problem Paroxysmal atrial fibrillation (654928326) Paroxysmal atrial fibrillation (I48.0) Active confirmed Problem Sequelae of cerebral infarction (401735838) Unspecified sequelae of cerebral infarction (I69.30) Active confirmed Problem 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 Problem 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 (675996210) 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 Problem Hemiplegia of dominant side as late effect of cerebrovascular disease (403279277) Hemiplegia and hemiparesis following cerebral infarction affecting right dominant side (I69.351) Active confirmed Problem Dysphagia as a late effect of cerebrovascular accident (374308129) 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) Active confirmed Problem Constipation (37416792) Constipation, unspecified (K59.00) Active confirmed Problem 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 (disorder) (75406789868158) Pressure ulcer of sacral region, stage 4 (L89.154) Active confirmed Problem Pressure ulcer o f unspecified buttock, stage 4 (L89.304) Active confirmed Problem Contracture of joint of right ankle (disorder) (043323048841336) Contracture, right ankle (M24.571) Active confirmed Problem Contracture of joint of left ankle (disorder) (266503338568182) Contracture, left ankle (M24.572) Active confirmed Problem Osteomyelitis of vertebra (646544424) Osteomyelitis of vertebra, sacral and sacrococcygeal region (M46.28) Active confirmed Problem Urinary tract obstruction (6112091) Obstructive and reflux uropathy, unspecified (N13.9) Active confirmed Problem Oral phase dysphagia (991542450) Dysphagia, oral phase (R13.11) Active confirmed Problem Oropharyngeal dysphagia (89740098) Dysphagia, oropharyngeal phase (R13.12) Active confirmed Problem Abnormal gait (81098255) Other abnormalities of gait and mobility (R26.89) Active confirmed Problem Lack of coordination (629571677) Unspecified lack of coordination (R27.9) Active confirmed Problem Adult failure to thrive syndrome (694787433) Adult failure to thrive (R62.7) Active confirmed Problem Abrasion, right hip, subsequent encounter (S70.211D) Active confirmed Problem 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) Active confirmed Problem Mononeuropathy of lower limb (868344806) 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) Active confirmed Problem Lower urinary tract symptoms due to benign prostatic hypertrophy (54048056087242) Benign prostatic hyperplasia with lower urinary tract symptoms (N40.1) Active confirmed Problem Longstanding persistent atrial fibrillation (023613627) Longstanding persistent atrial fibrillation (I48.11) Active confirmed Problem Peripheral vascular disease (933965296) Peripheral vascular disease (I73.9) Active confirmed Problem Benign prostatic hypertrophy without outflow obstruction (422804556) Benign nodular prostatic hyperplasia without lower urinary tract symptoms (N40.0) Active confirmed Encounters Encounter Location Date Provider Diagnosis [facility] [address] [place] [address] 12/23/2023 Jean Paul Waien Pressure ulcer of sacral region, stage 4 L89.154 ; Epilepsy, unspecified, not intractable, without status epilepticus G40.909 ; Essential (primary) hypertension I10 ; Paroxysmal atrial fibrillation I48.0 ; Aphasia following cerebral infarction I69.320 ; Hemiplegia and hemiparesis following cerebral infarction affecting right dominant side I69.351 ; Adult failure to thrive R62.7 ; Peripheral vascular disease I73.9 and Other abnormalities of gait and mobility R26.89 [facility] [address] [facility] [place] [address] 12/30/2023 Jean Paul Waien Pressure ulcer of sacral region, stage 4 L89.154 ; Epilepsy, unspecified, not intractable, without status epilepticus G40.909 ; Essential (primary) hypertension I10 ; Paroxysmal atrial fibrillation I48.0 ; Aphasia following cerebral infarction I69.320 ; Hemiplegia and hemiparesis following cerebral infarction affecting right dominant side I69.351 ; Adult failure to thrive R62.7 ; Peripheral vascular disease I73.9 and Other abnormalities of gait and mobility R26.[address] 01/06/2024 Jean Paul Waien Pressure ulcer of sacral region, stage 4 L89.154 ; Epilepsy, unspecified, not intractable, without status epilepticus G40.909 ; Essential (primary) hypertension I10 ; Paroxysmal atrial fibrillation I48.0 ; Aphasia following cerebral infarction I69.320 ; Hemiplegia and hemiparesis following cerebral infarction affecting right dominant side I69.351 ; Adult failure to thrive R62.7 ; Peripheral vascular disease I73.9 and Other abnormalities of gait and mobility R26.[address] 01/13/2024 Jean Paul Waien Pressure ulcer of sacral region, stage 4 L89.154 ; Epilepsy, unspecified, not intractable, without status epilepticus G40.909 ; Essential (primary) hypertension I10 ; Paroxysmal atrial fibrillation I48.0 ; Aphasia following cerebral infarction I69.320 ; Hemiplegia and hemiparesis following cerebral infarction affecting right dominant side I69.351 ; Adult failure to thrive R62.7 ; Peripheral vascular disease I73.9 and Other abnormalities of gait and mobility R26.[address] 02/24/2024 Jean Paul Waien Pressure ulcer of sacral region, stage 4 L89.154 ; Epilepsy, unspecified, not intractable, without status epilepticus G40.909 ; Essential (primary) hypertension I10 ; Paroxysmal atrial fibrillation I48.0 ; Aphasia following cerebral infarction I69.320 ; Hemiplegia and hemiparesis following cerebral infarction affecting right dominant side I69.351 ; Adult failure to thrive R62.7 ; Peripheral vascular disease I73.9 and Other abnormalities of gait and mobility R26.[address] [address] 03/02/2024 Jean Paul Waien Pressure ulcer of sacral region, stage 4 L89.154 ; Epilepsy, unspecified, not intractable, without status epilepticus G40.909 ; Essential (primary) hypertension I10 ; Paroxysmal atrial fibrillation I48.0 ; Aphasia following cerebral infarction I69.320 ; Hemiplegia and hemiparesis following cerebral infarction affecting right dominant side I69.351 ; Adult failure to thrive R62.7 ; Peripheral vascular disease I73.9 and Other abnormalities of gait and mobility R26.[address] [address] 03/16/2024 Jean Paul Waien Pressure ulcer of sacral region, stage 4 L89.154 ; Epilepsy, unspecified, not intractable, without status epilepticus G40.909 ; Essential (primary) hypertension I10 ; Paroxysmal atrial fibrillation I48.0 ; Aphasia following cerebral infarction I69.320 ; Hemiplegia and hemiparesis following cerebral infarction affecting right dominant side I69.351 ; Adult failure to thrive R62.7 ; Peripheral vascular disease I73.9 and Other abnormalities of gait and mobility R26.[address] [address] 03/23/2024 Jean Paul Waien Pressure ulcer of sacral region, stage 4 L89.154 ; Epilepsy, unspecified, not intractable, without status epilepticus G40.909 ; Essential (primary) hypertension I10 ; Paroxysmal atrial fibrillation I48.0 ; Aphasia following cerebral infarction I69.320 ; Hemiplegia and hemiparesis following cerebral infarction affecting right dominant side I69.351 ; Adult failure to thrive R62.7 ; Peripheral vascular disease I73.9 and Other abnormalities of gait and mobility R26.[address] 03/30/2024 Jean Paul Waien Pressure ulcer of sacral region, stage 4 L89.154 ; Epilepsy, unspecified, not intractable, without status epilepticus G40.909 ; Essential (primary) hypertension I10 ; Paroxysmal atrial fibrillation I48.0 ; Aphasia following cerebral infarction I69.320 ; Hemiplegia and hemiparesis following cerebral infarction affecting right dominant side I69.351 ; Adult failure to thrive R62.7 ; Peripheral vascular disease I73.9 and Other abnormalities of gait and mobility R26.[address] 04/12/2024 Jean Paul Waien Pressure ulcer of sacral region, stage 4 L89.154 ; Epilepsy, unspecified, not intractable, without status epilepticus G40.909 ; Essential (primary) hypertension I10 ; Paroxysmal atrial fibrillation I48.0 ; Aphasia following cerebral infarction I69.320 ; Hemiplegia and hemiparesis following cerebral infarction affecting right dominant side I69.351 ; Adult failure to thrive R62.7 ; Peripheral vascular disease I73.9 and Other abnormalities of gait and mobility R26.[address] [address] 05/04/2024 Jean Paul Waien Pressure ulcer of sacral region, stage 4 L89.154 ; Epilepsy, unspecified, not intractable, without status epilepticus G40.909 ; Essential (primary) hypertension I10 ; Paroxysmal atrial fibrillation I48.0 ; Aphasia following cerebral infarction I69.320 ; Hemiplegia and hemiparesis following cerebral infarction affecting right dominant side I69.351 ; Adult failure to thrive R62.7 ; Peripheral vascular disease I73.9 and Other abnormalities of gait and mobility R26.[address] 05/11/2024 Jean Paul Waien Pressure ulcer of sacral region, stage 4 L89.154 ; Epilepsy, unspecified, not intractable, without status epilepticus G40.909 ; Essential (primary) hypertension I10 ; Paroxysmal atrial fibrillation I48.0 ; Aphasia following cerebral infarction I69.320 ; Hemiplegia and hemiparesis following cerebral infarction affecting right dominant side I69.351 ; Adult failure to thrive R62.7 ; Peripheral vascular disease I73.9 ; Other abnormalities of gait and mobility R26.89 and Abrasion of hip, right S70.211A [facility] [address] 05/18/2024 Jean Paul Waien Pressure ulcer of sacral region, stage 4 L89.154 ; Epilepsy, unspecified, not intractable, without status epilepticus G40.909 ; Essential (primary) hypertension I10 ; Paroxysmal atrial fibrillation I48.0 ; Aphasia following cerebral infarction I69.320 ; Hemiplegia and hemiparesis following cerebral infarction affecting right dominant side I69.351 ; Adult failure to thrive R62.7 ; Peripheral vascular disease I73.9 ; Other abnormalities of gait and mobility R26.89 and Abrasion of hip, right S70. [address] 05/25/2024 Jean Paul Waien Pressure ulcer of sacral region, stage 4 L89.154 ; Epilepsy, unspecified, not intractable, without status epilepticus G40.909 ; Essential (primary) hypertension I10 ; Paroxysmal atrial fibrillation I48.0 ; Aphasia following cerebral infarction I69.320 ; Hemiplegia and hemiparesis following cerebral infarction affecting right dominant side I69.351 ; Adult failure to thrive R62.7 ; Peripheral vascular disease I73.9 ; Other abnormalities of gait and mobility R26.89 and Abrasion of hip, right S70. [facility] [address] 06/01/2024 Jean Paul Waien Pressure ulcer of sacral region, stage 4 L89.154 ; Epilepsy, unspecified, not intractable, without status epilepticus G40.909 ; Essential (primary) hypertension I10 ; Paroxysmal atrial fibrillation I48.0 ; Aphasia following cerebral infarction I69.320 ; Hemiplegia and hemiparesis following cerebral infarction affecting right dominant side I69.351 ; Adult failure to thrive R62.7 ; Peripheral vascular disease I73.9 ; Other abnormalities of gait and mobility R26.89 and Abrasion of hip, right S70. [address] 06/08/2024 Jean Paul Waien Pressure ulcer of sacral region, stage 4 L89.154 ; Epilepsy, unspecified, not intractable, without status epilepticus G40.909 ; Essential (primary) hypertension I10 ; Paroxysmal atrial fibrillation I48.0 ; Aphasia following cerebral infarction I69.320 ; Hemiplegia and hemiparesis following cerebral infarction affecting right dominant side I69.351 ; Adult failure to thrive R62.7 ; Peripheral vascular disease I73.9 ; Other abnormalities of gait and mobility R26.89 and Abrasion of hip, right S70.A [address] 06/15/2024 Jean Paul Waien Pressure ulcer of sacral region, stage 4 L89.154 ; Epilepsy, unspecified, not intractable, without status epilepticus G40.909 ; Essential (primary) hypertension I10 ; Paroxysmal atrial fibrillation I48.0 ; Aphasia following cerebral infarction I69.320 ; Hemiplegia and hemiparesis following cerebral infarction affecting right dominant side I69.351 ; Adult failure to thrive R62.7 ; Peripheral vascular disease I73.9 ; Other abnormalities of gait and mobility R26.89 and Abrasion of hip, right S70.A [address] 06/22/2024 Jean Paul Waien Pressure ulcer of sacral region, stage 4 L89.154 ; Epilepsy, unspecified, not intractable, without status epilepticus G40.909 ; Essential (primary) hypertension I10 ; Paroxysmal atrial fibrillation I48.0 ; Aphasia following cerebral infarction I69.320 ; Hemiplegia and hemiparesis following cerebral infarction affecting right dominant side I69.351 ; Adult failure to thrive R62.7 ; Peripheral vascular disease I73.9 ; Other abnormalities of gait and mobility R26.89 and Abrasion of hip, right S70.A [address] 07/20/2024 Jean Paul Waien Pressure ulcer of sacral region, stage 4 L89.154 ; Abrasion, right hip, subsequent encounter S70.211D ; Epilepsy, unspecified, not intractable, without status epilepticus G40.909 ; Essential (primary) hypertension I10 ; Paroxysmal atrial fibrillation I48.0 ; Aphasia following cerebral infarction I69.320 ; Hemiplegia and hemiparesis following cerebral infarction affecting right dominant side I69.351 ; Adult failure to thrive R62.7 ; Peripheral vascular disease I73.9 ; Other abnormalities of gait and mobility R26.89 and Abrasion of hip, right S70.211A [facility] [address] 07/27/2024 Jean Paul Waien Pressure ulcer of sacral region, stage 4 L89.154 ; Abrasion, right hip, subsequent encounter S70.211D ; Epilepsy, unspecified, not intractable, without status epilepticus G40.909 ; Essential (primary) hypertension I10 ; Paroxysmal atrial fibrillation I48.0 ; Aphasia following cerebral infarction I69.320 ; Hemiplegia and hemiparesis following cerebral infarction affecting right dominant side I69.351 ; Adult failure to thrive R62.7 ; Peripheral vascular disease I73.9 ; Other abnormalities of gait and mobility R26.89 and Abrasion of hip, right S70.211A [address] 08/03/2024 Jean Paul Waien Pressure ulcer of sacral region, stage 4 L89.154 ; Abrasion, right hip, subsequent encounter S70.211D ; Epilepsy, unspecified, not intractable, without status epilepticus G40.909 ; Essential (primary) hypertension I10 ; Paroxysmal atrial fibrillation I48.0 ; Aphasia following cerebral infarction I69.320 ; Hemiplegia and hemiparesis following cerebral infarction affecting right dominant side I69.351 ; Adult failure to thrive R62.7 ; Peripheral vascular disease I73.9 ; Other abnormalities of gait and mobility R26.89 and Abrasion of hip, right S70.211A [address] 08/10/2024 Jean Paul Waien Pressure ulcer of sacral region, stage 4 L89.154 ; Abrasion, right hip, subsequent encounter S70.211D ; Epilepsy, unspecified, not intractable, without status epilepticus G40.909 ; Essential (primary) hypertension I10 ; Paroxysmal atrial fibrillation I48.0 ; Aphasia following cerebral infarction I69.320 ; Hemiplegia and hemiparesis following cerebral infarction affecting right dominant side I69.351 ; Adult failure to thrive R62.7 ; Peripheral vascular disease I73.9 ; Other abnormalities of gait and mobility R26.89 and Abrasion of hip, right S70.211A [facility] [address] [place] [address] 08/24/2024 Jean Paul Lee Pressure ulcer of sacral region, stage 4 L89.154 ; Abrasion, right hip, subsequent encounter S70.211D ; Epilepsy, unspecified, not intractable, without status epilepticus G40.909 ; Essential (primary) hypertension I10 ; Paroxysmal atrial fibrillation I48.0 ; Aphasia following cerebral infarction I69.320 ; Hemiplegia and hemiparesis following cerebral infarction affecting right dominant side I69.351 ; Adult failure to thrive R62.7 ; Peripheral vascular disease I73.9 ; Other abnormalities of gait and mobility R26.89 and Abrasion of hip, right S70.211A Assessments Encounter Date Diagnosis (ICD Code) Assessment Notes Treatment Notes Treatment Clinical Notes Section Notes 12/23/2023 Pressure ulcer of sacral region, stage 4 (ICD-10 - L89.154) Today I saw Wyatt at the [facility]. He is a long-term resident at the [facility] when he was first admitted on the hospital on May 02, 2020. At the time of his admission he was found to have a pressure ulcer on the sacrum. He has been followed by the [facility] since September 2020. The wound has remained stagnant despite their care. He was last seen ther on October 2023. On exam today he was reported to be afebrile. We then removed the dressings and I examined the wound site. He has a stage IV pressure ulcer involving his coccyx. There was no foul odor present and I did not appreciate any purulent drainage or any other signs to suggest an underlying infective process. There was however evidence of undermining as noted and there was evidence of overlying devitalized tissue present. After examining the area I performed debridement of it as outlined. He tolerated the procedure well. Today I recommended that we apply Santyl onto the wound base and cover it with a dry dressing. Staff will perform his dressing changes daily and they will also continue to offload and reposition him frequently. I will follow-up with him next week. 12/30/2023 Pressure ulcer of sacral region, stage 4 (ICD-10 - L89.154) Today I saw Wyatt at the [facility] for his follow-up appointment. Nursing staff report no new issues related to the wound site. They have been performing dressing changes regularly and continue to offload and reposition him frequently. On exam today he is reported to be afebrile, we then removed the dressings and examined the wound site. He continues to have a large open area on his coccyx with evidence of undermining as recorded. There was evidence of granulation tissue along with evidence of devitalized tissue which I debrided as outlined. He tolerated the procedure well. Today we switched over to the application of Hydrofera Blue onto the wound base along with zinc to the periwound area and covered it with dry dressing. Staff will perform her dressing changes daily and they will continue to offload and reposition her frequently. I will follow-up with him next week. 01/06/2024 Pressure ulcer of sacral region, stage 4 (ICD-10 - L89.154) Today I saw Wyatt at the [facility] for his follow-up appointment. Nursing staff report no new issues related to the wound site. They have been performing his dressing changes regularly. On exam he continues to have an open area on his coccyx. Overall the size has not changed and he continues to have undermining as outlined. After examining the area I performed debridement of it as outlined. He tolerated the procedure well. I recommended that we should clean the area with Dakin solution and thereafter apply Hydrofera Blue to the wound site along with zinc to the periwound area and cover it with a dry dressing. Staff will perform his dressing changes daily and they will continue to offload and reposition him frequently. I will follow-up with her left week. 01/13/2024 Pressure ulcer of sacral region, stage 4 (ICD-10 - L89.154) Today I saw after Wyatt at the [facility] for his follow-up appointment. Nursing staff have been performing his dressing changes and continue to offload and reposition him frequently. On exam he continues to have an open area on his coccyx. Overall the wound is showing signs of improvement despite the fact that he continues to have evidence of undermining. There is evidence of good granulation tissue developing however there was also evidence of devitalized tissue which I debrided as outlined. He tolerated the procedure well. I recommend we continue to apply Hydrofera Blue onto the wound site along with zinc to the periwound area and covered it with a dry dressing. Staff will perform his dressing changes daily plus additional changes as necessary. I will follow-up with him in 2 weeks. 02/24/2024 Pressure ulcer of sacral region, stage 4 (ICD-10 - L89.154) Today I saw Wyatt at the [facility] for his follow-up appointment. I last saw him 3 weeks ago. He had been hospitalized for renal stones and currently has a nephrostomy tube in place. On exam he continues to have an open area on his coccyx. Overall the size of the wound has not changed. It continues to have thickened edges with some macerated tissue present. After examining the area I performed debridement of it as outlined. He tolerated the procedure. I recommended that we continue to apply Hydrofera Blue onto the wound base along with zinc to the periwound area and cover it with a dry dressing. He will continue to have dressing to perform daily and staff will continue to assist him with offloading and repositioning. I will follow-up with him next week. 03/02/2024 Pressure ulcer of sacral region, stage 4 (ICD-10 - L89.154) Today I saw Wyatt at the [facility] for his follow-up appointments. Nursing staff report no new issues related to this wound sites. They have been performing his dressing changes regularly. On exam he continues to have an open area on his coccyx with undermining as outlined. He does have evidence of devitalized tissue which I debrided as outlined. He tolerated the procedure well. I recommend we continue with the current management plan of applying Hydrofera Blue onto the wound site along with zinc to the periwound area and covered it with a dry dressing. He will have dressing change performed regularly and the staff will also be offloading and repositioning him frequently. I will follow-up with him next week. 03/16/2024 Pressure ulcer of sacral region, stage 4 (ICD-10 - L89.154) Today I saw Wyatt at the [facility] for his follow-up appointment. Staff have been performing his dressing changes regularly and making efforts to offload him frequently. On exam he continues to have an open area on his coccyx which also has undermining as outlined. There is evidence of good granulation tissue developing however there is also evidence of devitalized tissue which I debrided as outlined. He tolerated the procedure well. I recommended that we continue to apply Hydrofera Blue onto the wound site along with zinc to the periwound area and cover it with a dry dressing. Staff will perform his dressing changes daily and additional changes as necessary. They will also continue to offload and reposition him frequently. I will follow-up with him next week. 03/23/2024 Pressure ulcer of sacral region, stage 4 (ICD-10 - L89.154) Today I saw Wyatt at the [facility] for his follow-up appointment. Staff have been performing his dressing changes regularly. They deny any new issues related to his wound site. On exam today he continues to have an open area on his coccyx. There continues to be evidence of undermining from 10:00 to 12:00 as outlined. There was evidence of granulation tissue present however there is also overlying devitalized tissue which I debrided as outlined. He tolerated the procedure well. I recommended that we continue to apply Hydrofera Blue onto the wound base along with zinc to the periwound area and cover it with a dry dressing. Staff will continue to perform his dressing changes regularly and they will also continue to offload and reposition him frequently. I will follow-up with him next week. 03/30/2024 Pressure ulcer of sacral region, stage 4 (ICD-10 - L89.154) Today I saw Kolby at the [facility] for his follow-up appointment. Nursing staff report no new issues related to the wound site, they have been performing his dressing changes regularly. On exam he continues to have an open area on his coccyx with undermining as outlined. There is devitalized tissue covering the base but no evidence of any purulent drainage or any other signs to suggest an underlying infective process. After examining the area I performed debridement of it as outlined. He tolerated the procedure well. We will continue to use Hydrofera Blue which was applied onto the wound base. Zince was applied to the periwound area; the site was then covered with a dry dressing. Staff will perform his dressing changes daily and additional changes as necessary. They will also continue to offload him regularly. I will follow-up with him next week. 04/12/2024 Pressure ulcer of sacral region, stage 4 (ICD-10 - L89.154) Today I saw Wyatt at the [facility] for his follow-up appointment. Nursing staff report that they have been performing his dressing changes regularly and making efforts to offload and reposition him frequently. On exam he continues to have an open area on his coccyx with undermining as outlined. There is no sign of purulent drainage noted and no other signs to suggest an underlying infective process. After examining the area I performed debridement of the wound site to remove overlying devitalized tissue. He tolerated the procedure well. I recommended that we continue to apply Hydrofera Blue onto the wound site along with zinc to the periwound area and cover it with a dry dressing. Staff were encouraged to perform his dressing changes daily and additional changes as necessary. I will follow-up with him next week. 05/04/2024 Pressure ulcer of sacral region, stage 4 (ICD-10 - L89.154) Today I saw Wyatt at the [facility] for his follow-up appointment. I last saw him 2 weeks ago. Since that time he has been hospitalized with a UTI. He is now back at the [facility]. On exam today he continues to have an open wound on his coccyx. Overall the size of the wound has not changed and there was no sign of any foul odor or any other signs to suggest an underlying infective process. After examining the area I performed debridement of it as outlined to remove the devitalized tissue that was present as well as a rim of fibrous tissue. He tolerated the procedure. At this time we will continue with the use of Hydrofera Blue which was applied onto the wound base. We then applied zinc to the periwound area and covered it with a dry dressing. Staff will perform his dressing changes daily and additional changes as necessary. They will also continue to make efforts to offload and reposition him frequently. I will follow-up with him next week. 05/11/2024 Epilepsy, unspecified, not intractable, without status epilepticus (ICD-10 - G40.909) 05/11/2024 Pressure ulcer of sacral region, stage 4 (ICD-10 - L89.154) Today I saw Wyatt at the [facility] for his follow-up appointment. Nursing staff of been performing his dressing changes regularly. Unfortunately he has now developed an open area on his right hip. This is to be related to his Walker catheter clip. It iitially began as a blister. On exam he now has 2 open areas; one on his coccyx and the other on his right hip. On exam neither of the wound sites has any evidence of foul odor, purulent drainage or any other signs to suggest an underlying infective process. However, there is evidence of overlying devitalized tissue covering both wound sites. After examining the areas I performed debridement of them as outlined. He tolerated the procedures well. I recommended continuing with the application of Hydrofera Blue to the wound on his coccyx and Xeroform to the wound on his right hip. Zinc was applied to the periwound areas and the sites covered with a dry dressing. He will have dressing change performed daily and additional changes as necessary. Staff will make efforts to offload and protect both areas. I will follow-up with him next week. 05/18/2024 Pressure ulcer of sacral region, stage 4 (ICD-10 - L89.154) Today I saw Wyatt at the [facility] for his follow-up appointment. Staff report that they have been performing his dressing changes regularly and deny any new issues related to his wound sites. On exam he continues to have 2 open areas one on his coccyx and the other on his right hip. He also continues to have undermining involving the wound on his coccyx as outlined. There is also devitalized tissue covering both areas. After examining the area I performed debridement of them as outlined. I recommend staff continue to apply Hydrofera Blue to the wound on his coccyx. Staff will apply Santyl to the wound on his right hip. The site will be covered with a dry dressing and staff will make efforts to offload both areas as often as possible. I will follow-up with him next week. 05/25/2024 Pressure ulcer of sacral region, stage 4 (ICD-10 - L89.154) Today I saw Wyatt at the [facility] for his follow-up appointment. Nursing staff continue to perform his dressing changes daily and make efforts to offload and reposition him frequently. On exam he continues to have 2 open wounds one on his coccyx which also has and evidence of undermining as outlined and an area on his right hip. The base of both wounds have evidence of devitalized tissue as well as slough. After examining both areas I performed debridement of them as outlined. He tolerated the procedures. We will continue to apply Santyl to the wound on his right hip and continue with Hydrofera Blue to the wound on his coccyx. Sites were covered with a dry dressing. Staff will perform his dressing changes daily and they will also continue to offload and reposition her frequently. I will follow-up with him next week. 06/01/2024 Pressure ulcer of sacral region, stage 4 (ICD-10 - L89.154) Today I saw momo Schneider at the [facility] for his follow-up appointment. Staff have been performing his dressing changes regularly. On exam he continues to have 2 open areas. There is a large amount of devitalized tissue covering the wound on his right hip and the wound on his coccyx appears to be improving and is measuring slightly smaller. It does however continue to have undermining as outlined. After examining both areas I performed debridement of them as outlined. He tolerated the procedures. We will continue to use Santyl and apply it to the wound on his right hip and for the wound on his coccyx we will continue to use Hydrofera Blue. The sites were then covered with a dry dressing. Staff will perform his dressing changes daily and they will also be offloading the areas. I will follow-up with him next week. 06/08/2024 Pressure ulcer of sacral region, stage 4 (ICD-10 - L89.154) Today I saw momo Schneider at the [facility] for his follow-up appointment. Staff have been performing his dressing changes regularly. On exam he continues to have 2 open areas. He continues to have devitalized tissue covering the wound on his right hip and the wound on his coccyx appears to be improving. It does however continue to have undermining as outlined. After examining both areas I performed debridement of them as outlined. He tolerated the procedures. We will continue to use Santyl and apply it to the wound on his right hip and for the wound on his coccyx we will continue to use Hydrofera Blue. Both sites were then covered with a dry dressing. Staff will perform his dressing changes daily and they will also be offloading the areas. I will follow-up with him next week. 06/15/2024 Pressure ulcer of sacral region, stage 4 (ICD-10 - L89.154) 06/22/2024 Pressure ulcer of sacral region, stage 4 (ICD-10 - L89.154) 07/20/2024 Pressure ulcer of sacral region, stage 4 (ICD-10 - L89.154) 07/20/2024 Abrasion, right hip, subsequent encounter (ICD-10 - S70.211D) 07/27/2024 Pressure ulcer of sacral region, stage 4 (ICD-10 - L89.154) 08/03/2024 Pressure ulcer of sacral region, stage 4 (ICD-10 - L89.154) 08/10/2024 Pressure ulcer of sacral region, stage 4 (ICD-10 - L89.154) 08/24/2024 Pressure ulcer of sacral region, stage 4 (ICD-10 - L89.154) 08/24/2024 Abrasion, right hip, subsequent encounter (ICD-10 - S70.211D) 08/10/2024 Abrasion, right hip, subsequent encounter (ICD-10 - S70.211D) 08/03/2024 Abrasion, right hip, subsequent encounter (ICD-10 - S70.211D) 07/27/2024 Abrasion, right hip, subsequent encounter (ICD-10 - S70.211D) 07/20/2024 Epilepsy, unspecified, not intractable, without status epilepticus (ICD-10 - G40.909) 06/22/2024 Epilepsy, unspecified, not intractable, without status epilepticus (ICD-10 - G40.909) 06/15/2024 Epilepsy, unspecified, not intractable, without status epilepticus (ICD-10 - G40.909) 06/08/2024 Epilepsy, unspecified, not intractable, without status epilepticus (ICD-10 - G40.909) 06/01/2024 Epilepsy, unspecified, not intractable, without status epilepticus (ICD-10 - G40.909) 05/25/2024 Epilepsy, unspecified, not intractable, without status epilepticus (ICD-10 - G40.909) 05/18/2024 Epilepsy, unspecified, not intractable, without status epilepticus (ICD-10 - G40.909) 05/11/2024 Essential (primary) hypertension (ICD-10 - I10) 05/04/2024 Epilepsy, unspecified, not intractable, without status epilepticus (ICD-10 - G40.909) 04/12/2024 Epilepsy, unspecified, not intractable, without status epilepticus (ICD-10 - G40.909) 03/30/2024 Epilepsy, unspecified, not intractable, without status epilepticus (ICD-10 - G40.909) 03/23/2024 Epilepsy, unspecified, not intractable, without status epilepticus (ICD-10 - G40.909) 03/16/2024 Epilepsy, unspecified, not intractable, without status epilepticus (ICD-10 - G40.909) 03/02/2024 Epilepsy, unspecified, not intractable, without status epilepticus (ICD-10 - G40.909) 02/24/2024 Epilepsy, unspecified, not intractable, without status epilepticus (ICD-10 - G40.909) 01/13/2024 Epilepsy, unspecified, not intractable, without status epilepticus (ICD-10 - G40.909) 01/06/2024 Epilepsy, unspecified, not intractable, without status epilepticus (ICD-10 - G40.909) 12/30/2023 Epilepsy, unspecified, not intractable, without status epilepticus (ICD-10 - G40.909) 12/23/2023 Epilepsy, unspecified, not intractable, without status epilepticus (ICD-10 - G40.909) 12/23/2023 Essential (primary) hypertension (ICD-10 - I10) 12/30/2023 Essential (primary) hypertension (ICD-10 - I10) 01/06/2024 Essential (primary) hypertension (ICD-10 - I10) 01/13/2024 Essential (primary) hypertension (ICD-10 - I10) 02/24/2024 Essential (primary) hypertension (ICD-10 - I10) 03/02/2024 Essential (primary) hypertension (ICD-10 - I10) 03/16/2024 Essential (primary) hypertension (ICD-10 - I10) 03/23/2024 Essential (primary) hypertension (ICD-10 - I10) 03/30/2024 Essential (primary) hypertension (ICD-10 - I10) 04/12/2024 Essential (primary) hypertension (ICD-10 - I10) 05/04/2024 Essential (primary) hypertension (ICD-10 - I10) 05/11/2024 Paroxysmal atrial fibrillation (ICD-10 - I48.0) 05/18/2024 Essential (primary) hypertension (ICD-10 - I10) 05/25/2024 Essential (primary) hypertension (ICD-10 - I10) 06/01/2024 Essential (primary) hypertension (ICD-10 - I10) 06/08/2024 Essential (primary) hypertension (ICD-10 - I10) 06/15/2024 Essential (primary) hypertension (ICD-10 - I10) 06/22/2024 Essential (primary) hypertension (ICD-10 - I10) 07/20/2024 Essential (primary) hypertension (ICD-10 - I10) 07/27/2024 Epilepsy, unspecified, not intractable, without status epilepticus (ICD-10 - G40.909) 08/03/2024 Epilepsy, unspecified, not intractable, without status epilepticus (ICD-10 - G40.909) 08/10/2024 Epilepsy, unspecified, not intractable, without status epilepticus (ICD-10 - G40.909) 08/24/2024 Epilepsy, unspecified, not intractable, without status epilepticus (ICD-10 - G40.909) 08/24/2024 Essential (primary) hypertension (ICD-10 - I10) 08/10/2024 Essential (primary) hypertension (ICD-10 - I10) 08/03/2024 Essential (primary) hypertension (ICD-10 - I10) 07/27/2024 Essential (primary) hypertension (ICD-10 - I10) 07/20/2024 Paroxysmal atrial fibrillation (ICD-10 - I48.0) 06/22/2024 Paroxysmal atrial fibrillation (ICD-10 - I48.0) 06/15/2024 Paroxysmal atrial fibrillation (ICD-10 - I48.0) 06/08/2024 Paroxysmal atrial fibrillation (ICD-10 - I48.0) 06/01/2024 Paroxysmal atrial fibrillation (ICD-10 - I48.0) 05/25/2024 Paroxysmal atrial fibrillation (ICD-10 - I48.0) 05/18/2024 Paroxysmal atrial fibrillation (ICD-10 - I48.0) 05/11/2024 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) 05/04/2024 Paroxysmal atrial fibrillation (ICD-10 - I48.0) 04/12/2024 Paroxysmal atrial fibrillation (ICD-10 - I48.0) 03/30/2024 Paroxysmal atrial fibrillation (ICD-10 - I48.0) 03/23/2024 Paroxysmal atrial fibrillation (ICD-10 - I48.0) 03/16/2024 Paroxysmal atrial fibrillation (ICD-10 - I48.0) 03/02/2024 Paroxysmal atrial fibrillation (ICD-10 - I48.0) 02/24/2024 Paroxysmal atrial fibrillation (ICD-10 - I48.0) 01/13/2024 Paroxysmal atrial fibrillation (ICD-10 - I48.0) 01/06/2024 Paroxysmal atrial fibrillation (ICD-10 - I48.0) 12/30/2023 Paroxysmal atrial fibrillation (ICD-10 - I48.0) 12/23/2023 Paroxysmal atrial fibrillation (ICD-10 - I48.0) 12/23/2023 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) 12/30/2023 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) 01/06/2024 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) 01/13/2024 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) 02/24/2024 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) 03/02/2024 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) 03/16/2024 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) 03/23/2024 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) 03/30/2024 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) 04/12/2024 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) 05/04/2024 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) 05/11/2024 Hemiplegia and hemiparesis following cerebral infarction affecting right dominant side (ICD-10 - I69.351) 05/18/2024 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) 05/25/2024 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) 06/01/2024 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) 06/08/2024 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) 06/15/2024 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) 06/22/2024 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) 07/20/2024 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) 07/27/2024 Paroxysmal atrial fibrillation (ICD-10 - I48.0) 08/03/2024 Paroxysmal atrial fibrillation (ICD-10 - I48.0) 08/10/2024 Paroxysmal atrial fibrillation (ICD-10 - I48.0) 08/24/2024 Paroxysmal atrial fibrillation (ICD-10 - I48.0) 08/24/2024 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) 08/10/2024 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) 08/03/2024 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) 07/27/2024 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) 07/20/2024 Hemiplegia and hemiparesis following cerebral infarction affecting right dominant side (ICD-10 - I69.351) 06/22/2024 Hemiplegia and hemiparesis following cerebral infarction affecting right dominant side (ICD-10 - I69.351) 06/15/2024 Hemiplegia and hemiparesis following cerebral infarction affecting right dominant side (ICD-10 - I69.351) 06/08/2024 Hemiplegia and hemiparesis following cerebral infarction affecting right dominant side (ICD-10 - I69.351) 06/01/2024 Hemiplegia and hemiparesis following cerebral infarction affecting right dominant side (ICD-10 - I69.351) 05/25/2024 Hemiplegia and hemiparesis following cerebral infarction affecting right dominant side (ICD-10 - I69.351) 05/18/2024 Hemiplegia and hemiparesis following cerebral infarction affecting right dominant side (ICD-10 - I69.351) 05/11/2024 Adult failure to thrive (ICD-10 - R62.7) 05/04/2024 Hemiplegia and hemiparesis following cerebral infarction affecting right dominant side (ICD-10 - I69.351) 04/12/2024 Hemiplegia and hemiparesis following cerebral infarction affecting right dominant side (ICD-10 - I69.351) 03/30/2024 Hemiplegia and hemiparesis following cerebral infarction affecting right dominant side (ICD-10 - I69.351) 03/23/2024 Hemiplegia and hemiparesis following cerebral infarction affecting right dominant side (ICD-10 - I69.351) 03/16/2024 Hemiplegia and hemiparesis following cerebral infarction affecting right dominant side (ICD-10 - I69.351) 03/02/2024 Hemiplegia and hemiparesis following cerebral infarction affecting right dominant side (ICD-10 - I69.351) 02/24/2024 Hemiplegia and hemiparesis following cerebral infarction affecting right dominant side (ICD-10 - I69.351) 01/13/2024 Hemiplegia and hemiparesis following cerebral infarction affecting right dominant side (ICD-10 - I69.351) 01/06/2024 Hemiplegia and hemiparesis following cerebral infarction affecting right dominant side (ICD-10 - I69.351) 12/30/2023 Hemiplegia and hemiparesis following cerebral infarction affecting right dominant side (ICD-10 - I69.351) 12/23/2023 Hemiplegia and hemiparesis following cerebral infarction affecting right dominant side (ICD-10 - I69.351) 12/23/2023 Adult failure to thrive (ICD-10 - R62.7) 12/30/2023 Adult failure to thrive (ICD-10 - R62.7) 01/06/2024 Adult failure to thrive (ICD-10 - R62.7) 01/13/2024 Adult failure to thrive (ICD-10 - R62.7) 02/24/2024 Adult failure to thrive (ICD-10 - R62.7) 03/02/2024 Adult failure to thrive (ICD-10 - R62.7) 03/16/2024 Adult failure to thrive (ICD-10 - R62.7) 03/23/2024 Adult failure to thrive (ICD-10 - R62.7) 03/30/2024 Adult failure to thrive (ICD-10 - R62.7) 04/12/2024 Adult failure to thrive (ICD-10 - R62.7) 05/04/2024 Adult failure to thrive (ICD-10 - R62.7) 05/11/2024 Peripheral vascular disease (ICD-10 - I73.9) 05/18/2024 Adult failure to thrive (ICD-10 - R62.7) 05/25/2024 Adult failure to thrive (ICD-10 - R62.7) 06/01/2024 Adult failure to thrive (ICD-10 - R62.7) 06/08/2024 Adult failure to thrive (ICD-10 - R62.7) 06/15/2024 Adult failure to thrive (ICD-10 - R62.7) 06/22/2024 Adult failure to thrive (ICD-10 - R62.7) 07/27/2024 Hemiplegia and hemiparesis following cerebral infarction affecting right dominant side (ICD-10 - I69.351) 07/20/2024 Adult failure to thrive (ICD-10 - R62.7) 08/03/2024 Hemiplegia and hemiparesis following cerebral infarction affecting right dominant side (ICD-10 - I69.351) 08/10/2024 Hemiplegia and hemiparesis following cerebral infarction affecting right dominant side (ICD-10 - I69.351) 08/24/2024 Hemiplegia and hemiparesis following cerebral infarction affecting right dominant side (ICD-10 - I69.351) 08/03/2024 Adult failure to thrive (ICD-10 - R62.7) 08/10/2024 Adult failure to thrive (ICD-10 - R62.7) 08/24/2024 Adult failure to thrive (ICD-10 - R62.7) 07/27/2024 Adult failure to thrive (ICD-10 - R62.7) 07/20/2024 Peripheral vascular disease (ICD-10 - I73.9) 06/22/2024 Peripheral vascular disease (ICD-10 - I73.9) 06/15/2024 Peripheral vascular disease (ICD-10 - I73.9) 06/08/2024 Peripheral vascular disease (ICD-10 - I73.9) 06/01/2024 Peripheral vascular disease (ICD-10 - I73.9) 05/25/2024 Peripheral vascular disease (ICD-10 - I73.9) 05/18/2024 Peripheral vascular disease (ICD-10 - I73.9) 05/11/2024 Other abnormalities of gait and mobility (ICD-10 - R26.89) 05/04/2024 Peripheral vascular disease (ICD-10 - I73.9) 04/12/2024 Peripheral vascular disease (ICD-10 - I73.9) 03/30/2024 Peripheral vascular disease (ICD-10 - I73.9) 03/23/2024 Peripheral vascular disease (ICD-10 - I73.9) 03/16/2024 Peripheral vascular disease (ICD-10 - I73.9) 03/02/2024 Peripheral vascular disease (ICD-10 - I73.9) 02/24/2024 Peripheral vascular disease (ICD-10 - I73.9) 01/13/2024 Peripheral vascular disease (ICD-10 - I73.9) 01/06/2024 Peripheral vascular disease (ICD-10 - I73.9) 12/30/2023 Peripheral vascular disease (ICD-10 - I73.9) 12/23/2023 Peripheral vascular disease (ICD-10 - I73.9) 12/23/2023 Other abnormalities of gait and mobility (ICD-10 - R26.89) 12/30/2023 Other abnormalities of gait and mobility (ICD-10 - R26.89) 01/06/2024 Other abnormalities of gait and mobility (ICD-10 - R26.89) 01/13/2024 Other abnormalities of gait and mobility (ICD-10 - R26.89) 02/24/2024 Other abnormalities of gait and mobility (ICD-10 - R26.89) 03/02/2024 Other abnormalities of gait and mobility (ICD-10 - R26.89) 03/16/2024 Other abnormalities of gait and mobility (ICD-10 - R26.89) 03/23/2024 Other abnormalities of gait and mobility (ICD-10 - R26.89) 03/30/2024 Other abnormalities of gait and mobility (ICD-10 - R26.89) 04/12/2024 Other abnormalities of gait and mobility (ICD-10 - R26.89) 05/04/2024 Other abnormalities of gait and mobility (ICD-10 - R26.89) 05/11/2024 Abrasion of hip, right (ICD-10 - S70.211A) 05/18/2024 Other abnormalities of gait and mobility (ICD-10 - R26.89) 05/25/2024 Other abnormalities of gait and mobility (ICD-10 - R26.89) 06/01/2024 Other abnormalities of gait and mobility (ICD-10 - R26.89) 06/08/2024 Other abnormalities of gait and mobility (ICD-10 - R26.89) 06/15/2024 Other abnormalities of gait and mobility (ICD-10 - R26.89) 06/22/2024 Other abnormalities of gait and mobility (ICD-10 - R26.89) 07/20/2024 Other abnormalities of gait and mobility (ICD-10 - R26.89) 08/24/2024 Peripheral vascular disease (ICD-10 - I73.9) 08/10/2024 Peripheral vascular disease (ICD-10 - I73.9) 08/03/2024 Peripheral vascular disease (ICD-10 - I73.9) 07/27/2024 Peripheral vascular disease (ICD-10 - I73.9) 08/03/2024 Other abnormalities of gait and mobility (ICD-10 - R26.89) 08/10/2024 Other abnormalities of gait and mobility (ICD-10 - R26.89) 08/24/2024 Other abnormalities of gait and mobility (ICD-10 - R26.89) 07/20/2024 Abrasion of hip, right (ICD-10 - S70.211A) 07/27/2024 Other abnormalities of gait and mobility (ICD-10 - R26.89) 06/22/2024 Abrasion of hip, right (ICD-10 - S70.211A) 06/15/2024 Abrasion of hip, right (ICD-10 - S70.211A) 06/08/2024 Abrasion of hip, right (ICD-10 - S70.211A) 06/01/2024 Abrasion of hip, right (ICD-10 - S70.211A) 05/25/2024 Abrasion of hip, right (ICD-10 - S70.211A) 05/18/2024 Abrasion of hip, right (ICD-10 - S70.211A) 08/24/2024 Abrasion of hip, right (ICD-10 - S70.211A) 08/10/2024 Abrasion of hip, right (ICD-10 - S70.211A) 08/03/2024 Abrasion of hip, right (ICD-10 - S70.211A) 07/27/2024 Abrasion of hip, right (ICD-10 - S70.211A) 03/23/2024 Other 06/15/2024 Other Today I saw Wyatt at the [facility] for his follow-up appointment. Nursing staff have been performing his dressing changes regularly and report no new issues related to the wound sites. On exam he continues to have 2 open areas; one on his coccyx and the other on his right hip as outlined. There is devitalized tissue present at the base of the wound on his right hip and less so on the base of the wound on his coccyx. After examining both areas I performed debridement of them as outlined. He tolerated procedures well. We will continue to apply Hydrofera Blue to the base of the wound on his coccyx and Santyl to the wound on his right hip. The sites were then covered with a dry dressing. Staff will continue to perform his dressing changes regularly and additional changes as necessary. Staff will also continue to reposition offload the areas regularly. I will follow-up with him next week. 06/22/2024 Other Today I saw Wyatt at the [facility] for his follow-up appointment. Staff have been performing his dressing changes regularly and making efforts to offload and reposition him frequently. On exam he continues to have 2 open areas as outlined. There is devitalized tissue covering both areas, especially the wound on his right hip. There is no sign of any infective process involving the areas. After examining both areas I performed debridement of them as outlined. He tolerated the procedures. We will continue with the application of Santyl to the wound on his right hip and Hydrofera Blue to the wound on his coccyx. Dressing will will be performed daily and additional changes as necessary. Staff will also continue to offload and reposition him frequently. I will follow-up with him next week. 07/20/2024 Other Today I saw nanci Copeland at the [facility] for his follow-up appointment. I last saw in 3 weeks ago. During this time period he was hospitalized with sepsis related to urinary tract infection. He has now returned to the [facility]. On exam today he is reported to be afebrile, we then removed the dressings and I examined the wound sites. The wound on his right hip ihas deteriorated. There is also evidence of undermining as outlined. There is no exposed bone but the wound does go down to the level of the joint capsule. There is also undermining as outlined. There was no evidence of any purulent drainage from this wound site. The wound on his coccyx is essentially unchanged. After examining both areas I performed debridement of them as outlined. He tolerated the procedures. I then recommended the application of a wound VAC to the wound on his hip and to continue to apply Hydrofera Blue to the wound on his coccyx. Staff will perform dressing changes regularly and additional changes as necessary. They will also continue to offload and reposition him frequently. I will follow-up with him next week. 07/27/2024 Other Today I saw Wyatt at the [facility] for his follow-up appointment. Nursing staff report that he was transferred to the hospital for transfusion of packed red blood cells. Staff deny any new issues related to his wound site. He has been tolerating the wound VAC. On exam today he continues to have 2 open areas; one on his coccyx the other on his right hip. Overall the size of the wound on his hip has not changed however he continues to have undermining involving this wound. There is no purulent drainage, foul odor or any other signs suggest an underlying infective process involving either of these sites. After examining both sites I performed debridement of them as outlined. She tolerated the procedures. At this time we will continue with the application of a wound VAC to the wound on his right hip and Hydrofera Blue onto the wound on his coccyx. Staff will perform dressing changes regularly and additional changes as necessary. They will also continue to offload and reposition him frequently. I will follow-up with him next week. 08/03/2024 Other Today I saw Wyatt at the [facility] for his follow-up appointment. Nursing staff have been performing his dressing changes regularly as well as wound VAC changes. They report no new issues related to his wound sites. On exam today he is reported to be afebrile. We then removed the dressings and examined the wound site. Overall the wound sites are stable, there is evidence of undermining involving the wound on his right hip as outlined. There was no evidence of any infective process involving either of the wound sites. There was devitalized tissue covering the bases of both wound sites which I debrided as outlined. He tolerated the procedures well. At this time we will continue with the application of the wound VAC to his wound on his right hip and we will switch over to the application of calcium alginate with silver to the wound on his coccyx. Zinc was applied to the periwound area and the site covered with a dry dressing. He will have regular dressing changes and additional changes as necessary. Staff will continue to offload and reposition him frequently I will follow-up with him next week. 08/10/2024 Other Today I saw Wyatt at the [facility] for his follow-up appointment. Nursing staff report no new issues related to his wound sites. They have been performing wound VAC and dressing changes as recommended. On exam he continues to have an open area on his right hip as well as his coccyx. The wound on his right hip continues to have undermining as outlined. After examining both areas I performed debridement of them as outlined to remove devitalized tissue that was present. He tolerated the procedure well. I recommended that we continue with the use of the wound VAC which was reapplied to the wound on his right hip. We also applied calcium alginate with silver to the wound on his coccyx. Staff will perform his dressing changes regularly and they will also be offloading and repositioning him frequently. I will follow-up with him next week. 08/24/2024 Other Today I saw Wyatt at the [facility] for his follow-up appointment. I last saw him 2 weeks ago. Nursing staff of been performing his dressing changes and he has been tolerating the wound VAC. The report no new issues related to the wound sites. On exam he is reported to be afebrile, we then removed the dressings and the wound VAC. The wound on his coccyx remained essentially unchanged there is a small amount of undermining noted there was no sign of any foul odor or purulent drainage present. After examining the area I performed debridement to remove the devitalized tissue that was present. He tolerated the procedure well. I recommended that we apply calcium alginate with silver onto the wound base along with zinc to the periwound area and covered it with a dry dressing. I then examined the wound on his right hip. It remains essentially unchanged with no signs of any underlying infective process noted. There also continues to be undermining as outlined. After examining the area, I performed debridement to remove the devitalized tissue that was present. He tolerated the procedure. I recommend we continue with the use of the wound VAC which was then reapplied. Staff will perform dressing changes regularly and they will also continue to offload and reposition him frequently. Nutritional support will continue to be monitored in adjusted as necessary. I will follow-up with him in 2 weeks. Plan Of Treatment No Information Insurance Providers Payer Name Payer Address Payer Phone Subscriber Number Group Number Insured Name Patient Relationship to Insured Coverage Start Date Coverage End Date [facility] [address] [address] [place], [place] [id number] Wyatt Castillo Self - patient is the insured Medical (General) History Medical History History ICD Code Hemiplegia and hemiparesis f ollowing cerebral infarction affecting right dominant side I69.351 Unspecified lack of coordination R27.9 Contracture, right ankle M24.571 Contracture, left ankle M24.572 Osteomyelitis of vertebra, sacral and sa crococcygeal region M46.28 Other abnormalities of gait and mobility R26.89 Diarrhea, unspecified R19.7 Anemia, unspecified D64.9 Hypokalemia E87.6 Insomnia, unspecified G47.00 Constipation, unspecified K59.00 Benign prostatic hyperplasia with lower urinary tract symptoms N40.1 A-fib I48.91 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16 Unspecified mononeuropathy of bilateral lower limbs G57.93 Longstanding persistent atrial fibrillat ion I48.11 Peripheral vascular disease I73.9 Obstructive and reflux uropathy, unspeci fied N13.9 Dysphagia, oral phase R13.11 Retention of urine, unspecified R33.9 Weakness R53.1 Adult failure to thrive R62.7 Unspecified injury of unspecified kidney , initial encounter S37.009A Hyperlipidemia, unspecified E78.5 Essential (primary) hypertension I10 Unspecified sequelae of cerebral infarct ion I69.30 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
[2024-09-07 12:03] VITALS: BP 107/56; PULSE 75; RESP 14; TEMP 36.8; O2SAT 98
--- NOTE | 2024-09-07 12:22 | MHC.EDTECH ---
CALLED [facility] for auth #[id number]. Spoke with Maci.
[2024-09-07 15:22] VITALS: BP 127/64; PULSE 86; RESP 13; TEMP 36.9; O2SAT 98
[2024-09-07 17:02] VITALS: BP 127/64; PULSE 86; RESP 13; TEMP 36.9; O2SAT 98
== END 2024-09-07 17:33 | disposition home or self-care (01) ==
PROVIDERS: Emergency Provider Emergency Medicine
DX: D64.9 Anemia, unspecified (principal); R79.89 Other specified abnormal findings of blood chemistry; I48.91 Unspecified atrial fibrillation; Z79.01 Long term (current) use of anticoagulants; Z79.899 Other long term (current) drug therapy
CPT/HCPCS: 36415; 80053; 82272; 85025; 86850; 86900; 86901; 99283; 99284

== ENCOUNTER 2024-09-20 13:28 | Day surgery (SDC) | payer OTHER, SELFPAY ==
--- OUTSIDE RECORDS SUMMARY | 2024-09-19 15:14 | XMS_ITS | Patient Health Record ---
Author Organization [facility] Address [address] [facility] [address] [place] [address] Care Team Providers Care Jewel Grinder Name Role Phone Elder Lauren MARTINEZ Primary Care Provider Jean Paul Flowers Unavailable [phone] Allergies Allergen (clinical drug ingredient) Drug/Non Drug [...] Status W/U Status Risk Notes Problem Anemia (107398028) Anemia, unspecified (D64.9) Active confirmed Problem Hyperlipidemia (14394408) Hyperlipidemia, unspecified (E78.5) Active confirmed Problem Epilepsy (14479078) Epilepsy, unspecified, not intractable, without status epilepticus (G40.909) Active confirmed Problem Insomnia (506342040) Insomnia, unspecified (G47.00) Active confirmed Problem Chronic pain (76131381) Other chronic pain (G89.29) Active confirmed Problem Essential hypertension (80352757) Essential (primary) hypertension (I10) Active confirmed Problem Paroxysmal atrial fibrillation (752151524) Paroxysmal atrial fibrillation (I48.0) Active confirmed Problem Sequelae of cerebral infarction (279930918) Unspecified sequelae of cerebral infarction (I69.30) Active confirmed Problem 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 (I69.320) Active confirmed Problem 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) 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 Problem Hemiplegia of dominant side as late effect of cerebrovascular disease (287483699) Hemiplegia and hemiparesis following cerebral infarction affecting right dominant side (I69.351) Active confirmed Problem Dysphagia as a late effect of cerebrovascular accident (028556297) 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) Active confirmed Problem Constipation (02981038) Constipation, unspecified (K59.00) Active confirmed Problem 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 (disorder) (89556134723238) Pressure ulcer of sacral region, stage 4 (L89.154) Active confirmed Problem Pressure ulcer o f unspecified buttock, stage 4 (L89.304) Active confirmed Problem Contracture of joint of right ankle (disorder) (411809002076678) Contracture, right ankle (M24.571) Active confirmed Problem Contracture of joint of left ankle (disorder) (878091309463317) Contracture, left ankle (M24.572) Active confirmed Problem Osteomyelitis of vertebra (173969354) Osteomyelitis of vertebra, sacral and sacrococcygeal region (M46.28) Active confirmed Problem Urinary tract obstruction (8380266) Obstructive and reflux uropathy, unspecified (N13.9) Active confirmed Problem Oral phase dysphagia (770773523) Dysphagia, oral phase (R13.11) Active confirmed Problem Oropharyngeal dysphagia (00774230) Dysphagia, oropharyngeal phase (R13.12) Active confirmed Problem Abnormal gait (94078664) Other abnormalities of gait and mobility (R26.89) Active confirmed Problem Lack of coordination (844994165) Unspecified lack of coordination (R27.9) Active confirmed Problem Adult failure to thrive syndrome (749664866) Adult failure to thrive (R62.7) Active confirmed Problem Abrasion, right hip, subsequent encounter (S70.211D) Active confirmed Problem 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) Active confirmed Problem Mononeuropathy of lower limb (904085237) 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) Active confirmed Problem Lower urinary tract symptoms due to benign prostatic hypertrophy (12310034590667) Benign prostatic hyperplasia with lower urinary tract symptoms (N40.1) Active confirmed Problem Longstanding persistent atrial fibrillation (602395584) Longstanding persistent atrial fibrillation (I48.11) Active confirmed Problem Peripheral vascular disease (962663116) Peripheral vascular disease (I73.9) Active confirmed Problem Benign prostatic hypertrophy without outflow obstruction (618364578) Benign nodular prostatic hyperplasia without lower urinary tract symptoms (N40.0) Active confirmed Encounters Encounter Location Date Provider Diagnosis [facility] [address] [place] [address] 12/23/2023 Jean Paul Waien Pressure ulcer of [...] Other abnormalities of gait and mobility R26.89 [facility] [address] [facility] [address] 12/30/2023 Jean Paul Waien Pressure ulcer of [...] Other abnormalities of gait and mobility R26.[address] 01/06/2024 Jean Paul Waien Pressure ulcer [...] Other abnormalities of gait and mobility R26.[address] 01/13/2024 Jean Paul Waien Pressure ulcer [...] Other abnormalities of gait and mobility R26.[address] 02/24/2024 Jean Paul Waien Pressure ulcer [...] Other abnormalities of gait and mobility R26.[address] [address] 03/02/2024 Jean Paul Waien Pressure ulcer of [...] Other abnormalities of gait and mobility R26.[address] [address] 03/16/2024 Jean Paul Waien Pressure ulcer of [...] Other abnormalities of gait and mobility R26.[address] [address] 03/23/2024 Jean Paul Waien Pressure ulcer of [...] Other abnormalities of gait and mobility R26.[address] 03/30/2024 Jean Paul Waien Pressure ulcer [...] Other abnormalities of gait and mobility R26.[address] 04/12/2024 Jean Paul Waien Pressure ulcer [...] Other abnormalities of gait and mobility R26.[address] [address] 05/04/2024 Jean Paul Waien Pressure ulcer of [...] Other abnormalities of gait and mobility R26.[address] 05/11/2024 Jean Paul Waien Pressure ulcer [...] R26.89 and Abrasion of hip, right S70.211A [facility] [address] 05/18/2024 Jean Paul Waien Pressure ulcer [...] R26.89 and Abrasion of hip, right S70. [address] 05/25/2024 Jean Paul Waien Pressure ulcer [...] R26.89 and Abrasion of hip, right S70. [facility] [address] 06/01/2024 Jean Paul Waien Pressure ulcer [...] R26.89 and Abrasion of hip, right S70. [address] 06/08/2024 Jean Paul Waien Pressure ulcer [...] R26.89 and Abrasion of hip, right S70.A [address] 06/15/2024 Jean Paul Waien Pressure ulcer [...] R26.89 and Abrasion of hip, right S70.A [address] 06/22/2024 Jean Paul Waien Pressure ulcer [...] R26.89 and Abrasion of hip, right S70.A [address] 07/20/2024 Jean Paul Waien Pressure ulcer [...] R26.89 and Abrasion of hip, right S70.211A [facility] [address] 07/27/2024 Jean Paul Waien Pressure ulcer [...] R26.89 and Abrasion of hip, right S70.211A [address] 08/03/2024 Jean Paul Waien Pressure ulcer [...] R26.89 and Abrasion of hip, right S70.211A [address] 08/10/2024 Jean Paul Waien Pressure ulcer [...] R26.89 and Abrasion of hip, right S70.211A [facility] [address] [place] [address] 08/24/2024 Jean Paul Lee Pressure ulcer of [...] L89.154) Today I saw Wyatt at the [facility]. He is a long-term resident at the [facility] when he was first admitted on the hospital on May 02, 2020. At the time of his admission he was found to have a pressure ulcer on the sacrum. He has been followed by the [facility] since September 2020. The wound [...] L89.154) Today I saw Wyatt at the [facility] for his follow-up appointment. Nursing staff [...] L89.154) Today I saw Wyatt at the [facility] for his follow-up appointment. Nursing staff [...] Today I saw after Wyatt at the [facility] for his follow-up appointment. Nursing staff [...] L89.154) Today I saw Wyatt at the [facility] for his follow-up appointment. I last [...] L89.154) Today I saw Wyatt at the [facility] for his follow-up appointments. Nursing staff [...] L89.154) Today I saw Wyatt at the [facility] for his follow-up appointment. Staff have [...] L89.154) Today I saw Wyatt at the [facility] for his follow-up appointment. Staff have [...] L89.154) Today I saw Kolby at the [facility] for his follow-up appointment. Nursing staff [...] L89.154) Today I saw Wyatt at the [facility] for his follow-up appointment. Nursing staff [...] L89.154) Today I saw Wyatt at the [facility] for his follow-up appointment. I last saw him 2 weeks ago. Since that time he has been hospitalized with a UTI. He is now back at the [facility]. On exam today he continues to [...] L89.154) Today I saw Wyatt at the [facility] for his follow-up appointment. Nursing staff [...] L89.154) Today I saw Wyatt at the [facility] for his follow-up appointment. Staff report [...] L89.154) Today I saw Wyatt at the [facility] for his follow-up appointment. Nursing staff [...] Today I saw momo Schneider at the [facility] for his follow-up appointment. Staff have [...] Today I saw momo Schneider at the [facility] for his follow-up appointment. Staff have [...] Other Today I saw Wyatt at the [facility] for his follow-up appointment. Nursing staff [...] Other Today I saw Wyatt at the [facility] for his follow-up appointment. Staff have [...] Today I saw nanci Copeland at the [facility] for his follow-up appointment. I last saw in 3 weeks ago. During this time period he was hospitalized with sepsis related to urinary tract infection. He has now returned to the [facility]. On exam today he is reported [...] Other Today I saw Wyatt at the [facility] for his follow-up appointment. Nursing staff [...] Other Today I saw Wyatt at the [facility] for his follow-up appointment. Nursing staff [...] Other Today I saw Wyatt at the [facility] for his follow-up appointment. Nursing staff [...] Other Today I saw Wyatt at the [facility] for his follow-up appointment. I last [...] Insured Coverage Start Date Coverage End Date [facility] [address] [address] [place], [place] [id number] Wyatt Castillo Self - patient is the [...]
--- OUTSIDE RECORDS SUMMARY | 2024-09-19 15:14 | XMS_ITS | Encounter Summary ---
Author Organization [employer] [facility] Address [address] [place] [address] Care Team Providers Care Supply Officer Name Role Phone Lauren Wiley MD Primary Care Provider + Encounter Details Date Type Department Care Team (Late st Contact Info) Description 08/16/2024 Lab Requisition [facility] Lab [address] [facility] [place] [address] Lauren Wiley MD [address] [address] Anemia, unspecified Social History Tobacco Use Types [...] Start Date End Date Lauren Wiley MD [address] [place] [address] PCP - General Family Medicine 01/28/24 documented as of this encounter
--- NOTE | ~2024-09-20 | IR_ITS ---
CLINICAL HISTORY: Right-sided nephrostomy tube exchange. History of obstructive uropathy. PROCEDURES: 1. Antegrade right sided nephrostogram. 2. Right-sided nephrostomy tube exchange. CLINICIAN: Ford Galindo NP MEDICATIONS: - Fentanyl , Lidocaine 1% SQ -Antibiotics: None indicated -For additional details, please see nursing flowsheet. Complications: None. Estimated blood loss: <5 ml Specimens: None. Contrast: Yes Fluoroscopy time: 2.0 min MODERATE SEDATION TIME: 0 min PROCEDURE NOTE: The procedure, risks, benefits, and alternatives were carefully explained to the patient and written informed consent was obtained. The patient was placed prone on the fluoroscopy table. A timeout was performed. The right flank was prepped and draped in usual sterile fashion. Maximum barrier technique was utilized. Local anesthesia was administered to the access site with 1% lidocaine. An antegrade nephrostogram was performed which demonstrated the tube within an upper minor calyx. A 0.018 stiff guidewire was inserted after the tube was cut. The existing tube was removed and a new 8 F x 30 cm multipurpose drainage pigtail catheter was inserted over the wire. The wire and inner soft stiffener were removed and the pigtail was formed. A nephrostogram was then performed which demonstrated proper positioning of the pigtail in the collecting system. The tube was attached to a drainage bag and was draining by gravity. The tube was secured with 3-0 nylon suture. The patient tolerated the procedure well. The patient was stable after the procedure and was transferred to the PACU. The procedure was performed with a dedicated nurse with continuous monitoring of vital signs. FINDINGS: 1. Right-sided nephrostogram showing tube not in proper position. 2. Exchange of right-sided nephrostomy tube. 3. Right-sided nephrostogram showing new tube in proper position within urinary collecting system. IR/IR nephrostomy tube change IMPRESSION: Successful exchange of right-sided nephrostomy tube. PLAN: - The patient will be discharged home when stable by protocol. - The patient should return in 3 months for a routine exchange. This procedure was performed by Ford Galindo NP and directly supervised by Chandler Sprague MD. Electronically signed by: Javier Sprague MD 09/27/2024 05:51 PM EDT
[2024-09-20 13:56] VITALS: BMI 25.8
[2024-09-20 14:02] VITALS: BP 143/85; PULSE 98; RESP 16; TEMP 36.5; O2SAT 97
[2024-09-20 16:05] VITALS: BP 126/84; PULSE 91; RESP 16; O2SAT 98
[2024-09-20 16:20] VITALS: BP 135/83; PULSE 92; RESP 15; O2SAT 96
[2024-09-20 16:35] VITALS: BP 124/82; PULSE 94; RESP 15; O2SAT 96
[2024-09-20 16:55] VITALS: BP 133/71; PULSE 91; RESP 18; TEMP 37.7; O2SAT 97
[2024-09-20 17:10] VITALS: BP 118/64; PULSE 90; RESP 18; TEMP 37.5; O2SAT 96
== END 2024-09-20 17:40 | disposition home or self-care (01) ==
LOC: HO.SSS 13:29
PROVIDERS: PCP Internal Medicine; Visit Provider Physician Assistant
DX: T83.022A Displacement of nephrostomy catheter, initial encounter (principal); N13.9 Obstructive and reflux uropathy, unspecified; Y73.8 Miscellaneous gastroenterology and urology devices associated with adverse incidents, not elsewhere classified
CPT/HCPCS: 50435; J2003; J3010; Q9967

== ENCOUNTER → 2024-09-20 15:30 | Outpatient (BNV) | payer OTHER, SELFPAY | PROVIDERS: PCP Internal Medicine | DX: N17.9 Acute kidney failure, unspecified (principal) | CPT/HCPCS: 50435 ==

== ENCOUNTER 2024-09-25 14:07 | Outpatient (AMB) | payer OTHER, SELFPAY ==
--- NOTE | 2024-09-25 14:06 | HO.NEPHOV ---
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 (Santyl) 1 appl topical DAILY ferrous sulfate 325 mg PO DAILY gabapentin 300 mg PO BEDTIME 30 days levetiracetam 2.5 mL PO BID linezolid (Zyvox) 600 mg PO BID magnesium citrate 150 mL PO DAILY PRN magnesium hydroxide (Milk of Magnesia) 30 mL PO DAILY PRN methenamine hippurate 1 g PO daily 90 days miscellaneous medical supply RUE resting hand Splint/Sling As directed, Dx: G81.91, I67.89, duration 999 days/life time multivitamin 1 tab PO DAILY oxycodone 5 mg PO DAILY PRN oxycodone 5 mg PO DAILY potassium chloride ER 20 mEq PO BID psyllium 1 ea PO BEDTIME rivaroxaban (Xarelto) 20 mg PO DAILY@1700 simethicone 80 mg PO Q6H PRN sodium hypochlorite 0.125% 1 appl topical BEDTIME sodium phosphates 19-7 gram/118 mL (Fleet Enema) 118 mL AL DAILY PRN tamsulosin 0.4 mg PO BEDTIME 90 days vancomycin (Firvanq) 125 mg (5 mL) PO Q6H [wet wipes As directed] Do you need a note to return to daycare/school/sports/work: No HPI Comments Details: 68-year-old man with dementia and history of chronic obstructive uropathy with suprapubic catheter. Few months ago was admitted to [facility] with VI. He was treated for UTI and with IV hydration renal function improved serum creatinine was 1.5 mg/dL which improved to 1.2. He has had chronic anemia requiring blood transfusions. Accompanied by family members. Currently he is in a fdc. Patient was unable to verbalize. [facility] Medical History Multiple renal calculi 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 Mother No problems noted. Social History Household Members: None and Other Household Members Other:: SNF Housing: Alf Housing Other:: rehab Are you a primary respiratory care faculty to a significant other at home: No Do you presently have visiting nurse or other home services: No Unable to assess alcohol history related to: Unable to respond Alcohol intake: former Comment: patient sleeping Patient Tobacco Use Status: Tobacco use Unknown Second Hand Smoke Exposure: No Advance Directives Date on File: 02/14/20 service: No Current occupational status: disabled Review of Systems Const Details: Unable to obtain from patient due to mental status all the information was obtained from the family Physical Exam Vital Signs: Last Vital Signs Pulse 84 09/25/24 14:20 BP 118/70 09/25/24 14:20 Pulse Ox 97 09/25/24 14:20 Oxygen Delivery Method Room Air 09/25/24 14:20 Const General: ill appearing Neck Neck: Yes supple Resp Auscultation: clear to auscultation bilaterally Cardio Palpation: no palpable S3 Heart sounds: no rubs GI Palpation (GI): Soft to palpation Auscultation: normal bowel sounds Neuro Motor exam (neuro): no asterixis Results Reviewed Nephrology Results: Hgb, (14.0-18.0) 7.7 g/dl L 09/07/24 WBC, (4.8-10.8) 6.2 X10*3/uL 09/07/24 Plt Count, (160-400) 246 X10*3/uL 09/07/24 Sodium, (135-145) 143 mmol/L 09/07/24 Potassium, (3.3-5.1) 3.8 mmol/L 09/07/24 Chloride, (96-108) 107 mmol/L 09/07/24 Carbon Dioxide, (22-29) 31 mmol/L H 09/07/24 BUN, (9-16) 45 mg/dL H 09/07/24 Creatinine, (0.5-1.4) 1.21 mg/dL 09/07/24 Calcium, (8.4-10.2) 8.4 mg/dL 09/07/24 Phosphorus, (2.7-4.5) 3.3 mg/dL 06/29/24 Urine Protein, (Neg-Trace) 100 (2+) mg/dL H 08/31/24 Assessment & Plan Assessment & Plan (1) VI (acute kidney injury): Code(s): N17.9 - Acute kidney failure, unspecified Category: Medical (2) Chronic suprapubic catheter: Code(s): Z93.59 - Other cystostomy status Category: Medical Plan 68-year-old man with acute kidney injury superimposed on chronic kidney disease. He has stage 3 chronic kidney disease with a baseline creatinine of around 1.2 mg/dL EGFR is between 50 and 60 mL/minute. History of superimposed VI due to hypoperfusion. VI has resolved renal function returned to baseline. History of suprapubic catheter and frequent urinary tract infection. Nine Chronic anemia requiring blood transfusion. MCV was elevated. Recommendations keep intake more than output Encouraged p.o. fluid intake. Avoid dehydration. Continue to avoid nephrotoxic agents including NSAIDs. At present renal function stable at baseline and blood pressure acceptable Volume status is acceptable. As for the anemia there is no absolute indication for Epogen at this time. Coding Level of Care Code Est Pt Level 4 (45297) Diagnoses VI (acute kidney injury) N17.9 Chronic suprapubic catheter Z93.59
--- OUTSIDE RECORDS SUMMARY | 2024-09-25 14:16 | XMS_ITS | Encounter Summary ---
Author Organization [employer] Address [address] [place] [address] Care Team Providers Care Healthcare Economics Consultant Name Role Phone Lauren Wiley MD Primary Care Provider + Encounter Details Date Type Department Care Team (Late st Contact Info) Description 07/23/2024 Lab Requisition [facility] - Main Lab [address] [place] [address] Lauren Wiley MD [address] [phone] Essential (primary) hypertension; Chronic kidney disease, unspecified Social History Tobacco Use Types Packs/Day [...] Associated Diagnosis Comments COMPLETE BLOOD COUNT Routine 07/24/2024 7:00 AM EDT Essential (primary) hypertension Chronic kidney disease, unspecified CREATINE KINASE Routine 07/24/2024 7:00 AM EDT Essential (primary) hypertension Chronic kidney disease, unspecified COMPREHENSIVE METABOLIC PANEL Routine 07/24/2024 7:00 AM EDT Essential (primary) hypertension Chronic kidney disease, unspecified documented in this encounter Results * (ABNORMAL) Creatine kinase (07/24/2024 7:00 AM EDT) Total CK 18(L) 22 - 269 unit/L LAB CHEMISTRY METHOD 07/24/2024 12:45 PM EDT [facility] Blood Venous blood specimen / Unknown Venipuncture / Unknown 07/24/2024 7:00 AM EDT 07/24/2024 10:26 AM EDT Lauren Wiley MD LAB BLOOD ORDERABLES Fin al Result [facility] [address] [place] [address], * (ABNORMAL) Comprehensive metabolic panel (07/24/2024 7:00 AM EDT) Sodium 149(H) 133 - 145 mmol/L LAB CHEMISTRY METHOD 07/24/2024 12:43 PM [facility] Potassium 4.5 3.5 - 5.5 mmol/L LAB CHEMISTRY METHOD 07/24/2024 12:43 PM [facility] Chloride 114(H) 96 - 110 mmol/L LAB CHEMISTRY METHOD 07/24/2024 12:43 PM [facility] CO2 29 21 - 32 mmol/L LAB CHEMISTRY METHOD 07/24/2024 12:43 PM [facility] Anion Gap 6 3 - 11 LAB CHEMISTRY METHOD 07/24/2024 12:43 PM [facility] Glucose 121(H) 70 - 100 mg/dL LAB CHEMISTRY METHOD 07/24/2024 12:43 PM [facility] BUN 42(H) 5 - 25 mg/dL LAB CHEMISTRY METHOD 07/24/2024 12:43 PM [facility] Creatinine 1.64(H) 0.70 - 1.30 mg/dL LAB CHEMISTRY METHOD 07/24/2024 12:43 PM [facility] eGFR 45(L) >=60 mL/min/1. 73m2 LAB CHEMISTRY METHOD 07/24/2024 12:43 PM [facility] Comment:Calculation based on the Chronic Kidney Disease Epidemiology Collaboration (CKD-EPI) equation refit without adjustment for race. BUN/Creatinine Ratio 25.6 LAB CHEMISTRY METHOD 07/24/2024 12:43 PM [facility] Calcium 8.9 8.5 - 10.5 mg/dL LAB CHEMISTRY METHOD 07/24/2024 12:43 PM [facility] AST (SGOT) 12 10 - 42 unit/L LAB CHEMISTRY METHOD 07/24/2024 12:43 PM [facility] ALT (SGPT) 21 10 - 60 unit/L LAB CHEMISTRY METHOD 07/24/2024 12:43 PM [facility] Alkaline Phosphatase 92 42 - 121 unit/L LAB CHEMISTRY METHOD 07/24/2024 12:43 PM [facility] Total Protein 6.4 6.0 - 8.0 g/dL LAB CHEMISTRY METHOD 07/24/2024 12:43 PM [facility] Albumin 2.2(L) 3.2 - 5.0 g/dL LAB CHEMISTRY METHOD 07/24/2024 12:43 PM [facility] Total Bilirubin 0.5 0.0 - 1.4 mg/dL LAB CHEMISTRY METHOD 07/24/2024 12:43 PM [facility] Blood Venous blood specimen / Unknown Venipuncture / Unknown 07/24/2024 7:00 AM EDT 07/24/2024 10:26 AM EDT us Lauren Wiley MD LAB BLOOD ORDERABLES Fin al Result [facility] [address] [place] [address], * (ABNORMAL) Complete blood count (07/24/2024 7:00 AM EDT) WBC 4.3(L) 4.8 - 10.8 K/mcL LAB HEMETOLOGY METHOD 07/24/2024 11:24 AM [facility] RBC 2.20(L) 4.50 - 5.50 M/mcL LAB HEMETOLOGY METHOD 07/24/2024 11:24 AM [facility] Hemoglobin 6.8(L) 13.5 - 17.5 g/dL LAB HEMETOLOGY METHOD 07/24/2024 11:24 AM [facility] Hematocrit 22.3(L) 42.0 - 54.0 % LAB HEMETOLOGY METHOD 07/24/2024 11:24 AM [facility] MCV 101.8(H) 79.0 - 98.0 FL LAB HEMETOLOGY METHOD 07/24/2024 11:24 AM [facility] MCH 31.1 27.0 - 32.0 pcg LAB HEMETOLOGY METHOD 07/24/2024 11:24 AM [facility] MCHC 30.5(L) 32.0 - 37.0 g/dL LAB HEMETOLOGY METHOD 07/24/2024 11:24 AM [facility] RDW 13.2 11.0 - 15.0 % LAB HEMETOLOGY METHOD 07/24/2024 11:24 AM [facility] Platelets 187 130 - 400 K/mcL LAB HEMETOLOGY METHOD 07/24/2024 11:24 AM [facility] MPV 9.5 7.0 - 11.0 FL LAB HEMETOLOGY METHOD 07/24/2024 11:24 AM [facility] NRBC 0.0 <1.0 % LAB HEMETOLOGY METHOD 07/24/2024 11:24 AM [facility] NRBC Absolute 0.00 <0.10 K/mcL LAB HEMETOLOGY METHOD 07/24/2024 11:24 AM [facility] Blood Venous blood specimen / Unknown Venipuncture / Unknown 07/24/2024 7:00 AM EDT 07/24/2024 10:22 AM EDT Lauren Wiley MD LAB BLOOD ORDERABLES Fin al Result [facility] [address] [place] [address], documented in this encounter Visit Diagnoses Diagnosis Essential (primary) hypertension Unspecified essential hypertension Chronic kidney disease, unspecified documented in this encounter Additional Health Concerns Infection Onset Date Last Indicated Resolved Time ESBL 03/29/2024 03/29/2024 documented as of this encounter Care Teams Healthcare Economics Consultant Relationship Specialty Start Date End Date Lauren Wiley MD [address] [place] [address] PCP - General Family Medicine 01/28/24 documented as of this encounter
--- OUTSIDE RECORDS SUMMARY | 2024-09-25 14:17 | XMS_ITS | Patient Health Record ---
Author Organization [facility] Address [address] [facility] [address] [place] [address] Care Team Providers Care Glass Technician Name Role Phone Elder Lauren MARTINEZ Primary Care Provider Jean Paul Flowers Unavailable [phone] Allergies Allergen (clinical drug ingredient) Drug/Non Drug [...] Status W/U Status Risk Notes Problem Anemia (168361948) Anemia, unspecified (D64.9) Active confirmed Problem Hyperlipidemia (44697191) Hyperlipidemia, unspecified (E78.5) Active confirmed Problem Epilepsy (23271140) Epilepsy, unspecified, not intractable, without status epilepticus (G40.909) Active confirmed Problem Insomnia (727822911) Insomnia, unspecified (G47.00) Active confirmed Problem Chronic pain (26372247) Other chronic pain (G89.29) Active confirmed Problem Essential hypertension (50103405) Essential (primary) hypertension (I10) Active confirmed Problem Paroxysmal atrial fibrillation (945988761) Paroxysmal atrial fibrillation (I48.0) Active confirmed Problem Sequelae of cerebral infarction (190187851) Unspecified sequelae of cerebral infarction (I69.30) Active confirmed Problem 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 Problem 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 Problem Hemiplegia of dominant side as late effect of cerebrovascular disease (906482459) Hemiplegia and hemiparesis following cerebral infarction affecting right dominant side (I69.351) Active confirmed Problem Dysphagia as a late effect of cerebrovascular accident (184068305) 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) Active confirmed Problem Constipation (17204750) Constipation, unspecified (K59.00) Active confirmed Problem 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 (disorder) (24758743956979) Pressure ulcer of sacral region, stage 4 (L89.154) Active confirmed Problem Pressure ulcer o f unspecified buttock, stage 4 (L89.304) Active confirmed Problem Contracture of joint of right ankle (disorder) (857576733679270) Contracture, right ankle (M24.571) Active confirmed Problem Contracture of joint of left ankle (disorder) (621630543765860) Contracture, left ankle (M24.572) Active confirmed Problem Osteomyelitis of vertebra (720945211) Osteomyelitis of vertebra, sacral and sacrococcygeal region (M46.28) Active confirmed Problem Urinary tract obstruction (6485098) Obstructive and reflux uropathy, unspecified (N13.9) Active confirmed Problem Oral phase dysphagia (651024398) Dysphagia, oral phase (R13.11) Active confirmed Problem Oropharyngeal dysphagia (09268666) Dysphagia, oropharyngeal phase (R13.12) Active confirmed Problem Abnormal gait (78074581) Other abnormalities of gait and mobility (R26.89) Active confirmed Problem Lack of coordination (839703465) Unspecified lack of coordination (R27.9) Active confirmed Problem Adult failure to thrive syndrome (527744594) Adult failure to thrive (R62.7) Active confirmed Problem Abrasion, right hip, subsequent encounter (S70.211D) Active confirmed Problem 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) Active confirmed Problem Mononeuropathy of lower limb (371827727) 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) Active confirmed Problem Lower urinary tract symptoms due to benign prostatic hypertrophy (75689612789082) Benign prostatic hyperplasia with lower urinary tract symptoms (N40.1) Active confirmed Problem Longstanding persistent atrial fibrillation (110674039) Longstanding persistent atrial fibrillation (I48.11) Active confirmed Problem Peripheral vascular disease (995380165) Peripheral vascular disease (I73.9) Active confirmed Problem Benign prostatic hypertrophy without outflow obstruction (408392754) Benign nodular prostatic hyperplasia without lower urinary tract symptoms (N40.0) Active confirmed Encounters Encounter Location Date Provider Diagnosis [facility] [address] [place] [address] 12/23/2023 Jean Paul Waien Pressure ulcer of [...] Other abnormalities of gait and mobility R26.89 [facility] [address] [facility] [address] 12/30/2023 Jean Paul Waien Pressure ulcer of [...] Other abnormalities of gait and mobility R26.[address] 01/06/2024 Jean Paul Waien Pressure ulcer [...] Other abnormalities of gait and mobility R26.[address] 01/13/2024 Jean Paul Waien Pressure ulcer [...] Other abnormalities of gait and mobility R26.[address] 02/24/2024 Jean Paul Waien Pressure ulcer [...] Other abnormalities of gait and mobility R26.[address] [address] 03/02/2024 Jean Paul Waien Pressure ulcer of [...] Other abnormalities of gait and mobility R26.[address] [address] 03/16/2024 Jean Paul Waien Pressure ulcer of [...] Other abnormalities of gait and mobility R26.[address] [address] 03/23/2024 Jean Paul Waien Pressure ulcer of [...] Other abnormalities of gait and mobility R26.[address] 03/30/2024 Jean Paul Waien Pressure ulcer [...] Other abnormalities of gait and mobility R26.[address] 04/12/2024 Jean Paul Waien Pressure ulcer [...] Other abnormalities of gait and mobility R26.[address] [address] 05/04/2024 Jean Paul Waien Pressure ulcer of [...] Other abnormalities of gait and mobility R26.[address] 05/11/2024 Jean Paul Waien Pressure ulcer [...] R26.89 and Abrasion of hip, right S70.211A [facility] [address] 05/18/2024 Jean Paul Waien Pressure ulcer [...] R26.89 and Abrasion of hip, right S70. [address] 05/25/2024 Jean Paul Waien Pressure ulcer [...] R26.89 and Abrasion of hip, right S70. [facility] [address] 06/01/2024 Jean Paul Waien Pressure ulcer [...] R26.89 and Abrasion of hip, right S70. [address] 06/08/2024 Jean Paul Waien Pressure ulcer [...] R26.89 and Abrasion of hip, right S70.A [address] 06/15/2024 Jean Paul Waien Pressure ulcer [...] R26.89 and Abrasion of hip, right S70.A [address] 06/22/2024 Jean Paul Waien Pressure ulcer [...] R26.89 and Abrasion of hip, right S70.A [address] 07/20/2024 Jean Paul Waien Pressure ulcer [...] R26.89 and Abrasion of hip, right S70.211A [facility] [address] 07/27/2024 Jean Paul Waien Pressure ulcer [...] R26.89 and Abrasion of hip, right S70.211A [address] 08/03/2024 Jean Paul Waien Pressure ulcer [...] R26.89 and Abrasion of hip, right S70.211A [address] 08/10/2024 Jean Paul Waien Pressure ulcer [...] R26.89 and Abrasion of hip, right S70.211A [facility] [address] [place] [address] 08/24/2024 Jean Paul Lee Pressure ulcer of [...] L89.154) Today I saw Wyatt at the [facility]. He is a long-term resident at the [facility] when he was first admitted on the hospital on May 02, 2020. At the time of his admission he was found to have a pressure ulcer on the sacrum. He has been followed by the [facility] since September 2020. The wound [...] L89.154) Today I saw Wyatt at the [facility] for his follow-up appointment. Nursing staff [...] L89.154) Today I saw Wyatt at the [facility] for his follow-up appointment. Nursing staff [...] Today I saw after Wyatt at the [facility] for his follow-up appointment. Nursing staff [...] L89.154) Today I saw Wyatt at the [facility] for his follow-up appointment. I last [...] L89.154) Today I saw Wyatt at the [facility] for his follow-up appointments. Nursing staff [...] L89.154) Today I saw Wyatt at the [facility] for his follow-up appointment. Staff have [...] L89.154) Today I saw Wyatt at the [facility] for his follow-up appointment. Staff have [...] L89.154) Today I saw Kolby at the [facility] for his follow-up appointment. Nursing staff [...] L89.154) Today I saw Wyatt at the [facility] for his follow-up appointment. Nursing staff [...] L89.154) Today I saw Wyatt at the [facility] for his follow-up appointment. I last saw him 2 weeks ago. Since that time he has been hospitalized with a UTI. He is now back at the [facility]. On exam today he continues to [...] L89.154) Today I saw Wyatt at the [facility] for his follow-up appointment. Nursing staff [...] L89.154) Today I saw Wyatt at the [facility] for his follow-up appointment. Staff report [...] L89.154) Today I saw Wyatt at the [facility] for his follow-up appointment. Nursing staff [...] Today I saw momo Schneider at the [facility] for his follow-up appointment. Staff have [...] Today I saw momo Schneider at the [facility] for his follow-up appointment. Staff have [...] Other Today I saw Wyatt at the [facility] for his follow-up appointment. Nursing staff [...] Other Today I saw Wyatt at the [facility] for his follow-up appointment. Staff have [...] Today I saw nanci Copeland at the [facility] for his follow-up appointment. I last saw in 3 weeks ago. During this time period he was hospitalized with sepsis related to urinary tract infection. He has now returned to the [facility]. On exam today he is reported [...] Other Today I saw Wyatt at the [facility] for his follow-up appointment. Nursing staff [...] Other Today I saw Wyatt at the [facility] for his follow-up appointment. Nursing staff [...] Other Today I saw Wyatt at the [facility] for his follow-up appointment. Nursing staff [...] Other Today I saw Wyatt at the [facility] for his follow-up appointment. I last [...] Coverage Start Date Coverage End Date [facility] [address] [place] [id number] Wyatt Castillo Self - patient is the [...]
[2024-09-25 14:20] VITALS: BP 118/70; PULSE 84; O2SAT 97
== END 2024-09-25 14:37 | disposition home or self-care (01) ==
LOC: HO.HKA 14:08
PROVIDERS: PCP Internal Medicine; Visit Provider Internal Medicine Hypertension Specialist
DX: N17.9 Acute kidney failure, unspecified (principal); Z93.59 Other cystostomy status
CPT/HCPCS: 99214

== ENCOUNTER → 2024-09-25 14:07 | Outpatient (BNVA) | payer OTHER, SELFPAY | PROVIDERS: PCP Internal Medicine; Visit Provider Internal Medicine Hypertension Specialist | DX: N18.31 Chronic kidney disease, stage 3a (principal); N17.9 Acute kidney failure, unspecified; Z93.59 Other cystostomy status; D50.9 Iron deficiency anemia, unspecified | CPT/HCPCS: 99212 ==

== ENCOUNTER 2024-10-21 16:57 | Inpatient (IN) | payer OTHER, SELFPAY ==
[2024-10-21] VITALS (9 sets, daily range): BP systolic 95–123; BP diastolic 50–69; PULSE 88–119; RESP 12–20; TEMP 36.6–38.1; O2SAT 96–98; BMI 24.4
--- NOTE | 2024-10-21 | ECG_ITS ---
Test Reason : TACHY Blood Pressure : */* mmHG Vent. Rate : 132 BPM Atrial Rate : 132 BPM P-R Int : 140 ms QRS Dur : 80 ms QT Int : 286 ms P-R-T Axes : 46 82 -28 degrees QTcB Int : 423 ms Sinus tachycardia T wave abnormality, consider inferior ischemia Abnormal ECG When compared with ECG of 26-Jul-2024 11:49, Questionable change in QRS axis ST no longer elevated in Inferior leads T wave inversion more evident in Inferior leads Referred By: Generic ED Physician Electronically Signed By: VINI ROBERT
--- NOTE | ~2024-10-21 | CT_ITS ---
CLINICAL HISTORY: sepsis, non-verbal, stage [address] abdomen and pelvis with contrast Comparison: CT/MA - CT ABDOMEN PELVIS W IV CON - 06/29/24 12:[address]/MA/SR - CT ABDOMEN PELVIS W IV CON - 06/29/24 12:06 EDT Findings: Atelectasis versus linear scarring at the lung bases. Underdistended gallbladder. There is a suprapubic Walker catheter in the bladder which is decompressed. There is mucosal hyperenhancement in the bladder. Unchanged fullness of the bilateral renal pelvises with mucosal thickening. There is a stone which extends from the right renal pelvis into the proximal ureter measuring up to 6.4 cm, unchanged. Status post right percutaneous nephrostomy, unchanged. Right nephrolithiasis measures up to 4 mm. There is unchanged right parapelvic stranding. Mild right hydroureter with mucosal thickening and hyperenhancement, increased. Bilateral renal subcentimeter low attenuating lesions which are too small to characterize. The spleen measures the upper limit of normal size. The other solid organs are unremarkable. No dilation or wall thickening of the small bowel. A normal appendix is identified. There is a catheter in the rectum. The rectum is nondistended, however the distal sigmoid colon is distended with stool, measuring up to 7.8 cm in transverse dimension, previously 6.2 cm. There is persistent wall thickening of the distal sigmoid colon. The sigmoid colon is redundant and distended predominantly with air, measuring up to 12.9 cm, previously measuring up to 10.9 cm. There is a moderate amount of increased stool throughout the colon. The colon is also distended with air. The descending colon is dilated, measuring up to 6.9 cm, previously measuring 5.2 cm. No pneumatosis or portal venous gas. No aneurysm. Severe calcified atherosclerotic disease. No lymphadenopathy. No ascites. No acute osseous abnormality. Decubitus ulcer at the right ischium which extends to bone with associated osseous destruction, new. There is infiltration of the adjacent subcutaneous fat. No rim enhancing fluid collection. Impression: Mucosal hyperenhancement in the bladder may indicate cystitis. New right hydroureter with mucosal thickening and hyperenhancement which may indicate ureteritis. Status post right percutaneous nephrostomy, unchanged. Correlate with urinalysis. Ulceration of the right ischium which extends to the bone with associated osseous destruction which may indicate osteomyelitis. Persistent dilation of the colon which may indicate ileus or colonic pseudo-obstruction. Increase in distention of the distal sigmoid colon with stool could be due to fecal impaction. There is wall thickening of the distal sigmoid colon which was also present on the prior study; stercoral colitis is considered less likely. This document has been electronically signed by: Merlene Browning MD on 10/21/2024 22:46:15
[2024-10-21 17:42] LABS: MANUAL DIFF FLAG NO
[2024-10-21 17:55] LABS: Hematocrit 27.0 % (42.0-52.0); Hemoglobin 8.9 g/dl (14.0-18.0); Imm Gran Abs Auto 0.02 X10*3/uL (0.00-0.03); Imm Gran Pct Auto 0.3 % (0.0-0.4); Lymphocytes Absolute Auto 1.9 X10*3/uL (1.2-4.9); Mean Corpuscular HGB Conc 33.0 g/dl (31.0-36.0); Mean Corpuscular Hemoglobin 32.1 pg (27.0-33.0); Mean Corpuscular Volume 97.5 fL (80.0-98.0); NRBC Abs Auto 0.000 X10*3/uL (0.0-0.012); NRBC Pct Auto 0.0 /100WBC (0.0-0.2); Platelet Count 235 X10*3/uL (160-400); Red Blood Count 2.77 X10*6/uL (4.60-5.80); White Blood Count 7.2 X10*3/uL (4.8-10.8)
[2024-10-21] MEDS: Lactated Ringers 1,000 ML 999 ML IV ×2 (17:58→20:19)
--- NOTE | 2024-10-21 18:00 | PC.NURSE ---
Rectal temp noted to be 100.6, tachycardic on monitor 100s-110s. Rectal probe placed for continuous temp monitoring. Pt off continuous BP cycle d/t being changed multiple times by [employer] and this RN d/t incontinence. Pt had small amount of dark brown/mucous like stool- sample obtained. Pt suprapubic cath noted to be leaking around insertion site. Pt cleaned up and repositioned in bed. Wound noted to coccyx- small amount of drainage on previous dressing. Photo sent to
[2024-10-21 18:07] LABS: Alanine Aminotransferase 19 U/L (0-40); Albumin Level 2.5 g/dL (3.5-5.0); Alkaline Phosphatase 102 U/L (39-117); Anion Gap 13 (12-20); Aspartate Amino Transferase 30 U/L (5-37); Blood Urea Nitrogen 56 mg/dL (9-16); Calcium 9.0 mg/dL (8.4-10.2); Carbon Dioxide 20 mmol/L (22-29); Chloride 113 mmol/L (96-108); Creatinine Clr Calc Pharmacy 58.1; Estimated Glomerular Filt Rate 59; Magnesium 2.1 mg/dL (1.6-2.6); Potassium 4.2 mmol/L (3.3-5.1); Sodium 142 mmol/L (135-145); Total Protein 6.9 g/dL (6.5-8.0)
--- NOTE | 2024-10-21 18:38 | ED.GENADULT ---
HPI - General Adult General Chief complaint: General Medical Stated complaint: nephrocity tube, finley leak , wound vac Time Seen by Provider: 10/21/24 17:28 Source: EMS, old records reviewed and lot porter Mode of arrival: EMS Limitations: altered mental status History of Present Illness ED Provider: DR. Hoang HPI narrative: 69-year-old male resident of [facility] with PMHx significant for vascular dementia, CVA with right hemiparesis, nonverbal, neurogenic bladder with chronic SP catheter, stage IV sacral decubitus ulcer, history of C diff, seizure, HTN, HLD, UTIs with sepsis [facility], diarrhea patient was recently on antibiotic as per [facility], leakage from around the SPT, patient found to be in sepsis in the emergency department. Related Data Home Medications ?Medication ?Instructions ?Recorded ?Confirmed acetaminophen 325 mg tablet 650 mg PO Q4H PRN fever/pain 02/16/21 06/29/24 calcium 600 mg (as 1 tab PO BID 02/16/21 09/25/24 carbonate)-vitamin D3 5 mcg (200 unit) tablet magnesium hydroxide 400 mg/5 mL 30 ml PO DAILY PRN No BM in 3 Days 02/16/21 06/29/24 oral suspension (Milk of Magnesia) levetiracetam 100 mg/mL oral 2.5 ml PO BID 02/26/21 06/29/24 solution atorvastatin 80 mg tablet 80 mg PO DAILY 01/26/22 09/25/24 rivaroxaban 20 mg tablet (Xarelto) 20 mg PO DAILY@1700 01/26/22 06/29/24 magnesium citrate 150 ml PO DAILY PRN No BM in 12 hrs 02/15/22 06/29/24 sodium phosphates 19 gram-7 118 ml WA DAILY PRN If no BM in 8 02/15/22 06/29/24 gram/118 mL enema (Fleet Enema) hours after use of Bisacodyl acetaminophen 325 mg tablet 650 mg PO BEDTIME 10/03/22 09/25/24 (Tylenol) acetic acid 0.25 % irrigation 50 ml irrigation TUTHSA@2100 10/03/22 09/25/24 solution ferrous sulfate 325 mg (65 mg 325 mg PO DAILY 12/22/22 09/25/24 iron) tablet multivitamin 1 tab PO DAILY 01/18/24 09/25/24 psyllium 1 ea PO BEDTIME 01/18/24 06/29/24 sodium hypochlorite 0.125 % 1 appl topical BEDTIME 01/18/24 06/29/24 solution oxycodone 5 mg tablet 5 mg PO DAILY PRN Pain/Wound 04/19/24 06/29/24 Management simethicone 80 mg chewable tablet 80 mg PO Q6H PRN Abdominal 04/19/24 09/25/24 Distention collagenase clostridium histo. 250 1 appl topical DAILY 06/29/24 06/29/24 unit/gram topical ointment (Santyl) oxycodone 5 mg tablet 5 mg PO DAILY 06/29/24 09/25/24 Previous Rx's ?Medication ?Instructions ?Recorded wet wipes #5 multiple units 03/12/20 tamsulosin 0.4 mg capsule 0.4 mg PO BEDTIME 90 days #90 caps 03/22/20 gabapentin 300 mg capsule 300 mg PO BEDTIME 30 days #30 caps 03/27/20 miscellaneous medical supply #1 ea 03/27/20 ascorbic acid (vitamin C) 1,000 mg 1,000 mg PO DAILY 90 days #90 tabs 01/27/22 tablet methenamine hippurate 1 gram tablet 1 g PO daily 90 days #90 tabs 01/27/22 linezolid 600 mg tablet (Zyvox) 600 mg PO BID #34 tabs 07/10/24 potassium chloride 20 mEq 20 meq PO BID #60 tabs 07/10/24 tablet,extended release(part/cryst) vancomycin 25 mg/mL oral solution 125 mg (5 mL) PO Q6H #76 mL 07/10/24 (Firvanq) cefuroxime axetil 250 mg tablet 250 mg PO BID 7 days #14 tabs 08/15/24 Allergies Allergy/AdvReac Type Severity Reaction Status Date / Time No Known Allergies (No Known Allergy Verified 10/21/24 17:25 Allergies*) Review of Systems Review of Systems: Yes Unobtainable due to mental condition PMFSH Past Medical History Medical History Multiple renal calculi 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 difficile diarrhea COVID-19 HTN (hypertension) High cholesterol Stroke UTI (urinary tract infection) due to urinary indwelling Finley catheter Essential hypertension Hemiplegia of right dominant side due to acute cerebrovascular disease Cerebrovascular accident (CVA) involving left cerebral hemisphere History of CVA (cerebrovascular accident) HTN (hypertension) Paroxysmal atrial fibrillation Surgical History History of insertion of nephrostomy tube No pertinent past surgical history Family History Family History Father No problems noted. Mother No problems noted. Social History Social History Household Members: None and Other Household Members Other:: SNF Housing: Residential Housing Other:: rehab Are you a primary resident care associate to a significant other at home: No Do you presently have visiting nurse or other home services: No Unable to assess alcohol history related to: Unable to respond Alcohol intake: former Comment: patient sleeping Patient Tobacco Use Status: Tobacco use Unknown Smoked in Last 30 Days: No Second Hand Smoke Exposure: No Use of substances other than those prescribed or required for medical reasons: No Advance Directives: Yes Advance Directives on File: Yes Advance Directives Date on File: 02/14/20 Do you have a plan to hurt others: No Plan service: No Current occupational status: disabled Physical Exam ED Vital Signs: Vital Signs - 24 hr 10/21/24 17:22 10/21/24 19:02 10/21/24 19:09 Temperature 100.5 F H 100.2 F 99.9 F Pulse Rate 119 H 112 H 105 H Respiratory Rate 15 18 20 Blood Pressure 105/61 122/69 111/50 L Pulse Oximetry 96 98 98 Oxygen Delivery Method Room Air Room Air Room Air 10/21/24 19:31 Temperature 99.7 F Pulse Rate 99 Respiratory Rate 12 Blood Pressure 111/52 L Pulse Oximetry 98 Oxygen Delivery Method Room Air BMI result Body Mass Index 24.4 Vital signs have been reviewed and appear to be correct. Blood pressure elevated. Heart rate elevated, Respiratory rate normal. Temperature elevated Oxygen saturation normal. Appearance: Alert. Nonverbal. No acute distress. Head: Normal external exam. Normocephalic. Atraumatic. No Oliveira signs noted. No raccoon eyes noted Eyes: PERRLA. EOMI. Conjunctiva and sclera normal. Eyelids normal. ENT: TM's Normal. Pharynx normal. Uvula midline. Moist mucous membranes. No trismus noted. No drooling noted. No muffled voice noted. Neck: Normal inspection. Neck supple. FROM. No adenopathy. Thyroid Normal. No meningeal signs. No neck mass noted. CVS: Normal heart rate and rhythm. Heart sound normal. No murmurs noted. Pulses normal throughout. Respiratory: No respiratory distress. Painless inspiration. Breath sounds normal. No wheezes/rales/rhonchi noted. Chest nontender. No accessory muscle usage noted or decreased air movement noted. Abdomen: Soft and nontender. Bowel sounds normal in all 4 quadrants. No distention noted. No organomegaly noted. No visible injury noted. Back: Stage IV decubitus ulcer. Skin: Skin warm and dry. Normal skin color. Normal skin turgor. No rashes/lesions/lacerations noted. Extremities: No lower extremity edema. Extremities exhibit normal range of motion. Extremities nontender. Neuro: Nonverbal, old right hemiparesis. Course Reevaluation(s) Reevaluation #1: 1. Sepsis with UTI, patient is covered with Zosyn. S/p suprapubic catheter replacement in the emergency department today 10/21/2024. 2. Sepsis with stage IV decubitus ulcer patient received Zosyn and vancomycin. 3. Recent antibiotic now with diarrhea C diff is pending patient received 1 dose of vanco. Time: 20:12 Medications Administered Discontinued Medications Generic Name Dose Route Start Last Admin Trade Name Freq PRN Reason Stop Dose Admin Lactated Ringer's 1,000 mls @ 999 mls/hr 10/21/24 17:30 10/21/24 19:40 Lr IV 10/21/24 18:30 Infused .Q1H1M KEE Infusion Piperacillin Sod/Tazobactam 50 mls @ 100 mls/hr 10/21/24 17:28 10/21/24 18:44 Sod 3.375 gm/ Sodium Chloride IV 10/21/24 17:57 Infused ONCE ONE Infusion Acetaminophen 1,000 mg in 100 mls @ 400 mls/hr 10/21/24 18:33 10/21/24 19:11 Ofirmev IV 10/21/24 18:47 Infused ONCE ONE Infusion Medical Decision Making Differential Diagnosis Differential Diagnoses: The differential diagnosis associated with the presentation includes (Suprapubic catheter malfunction, sepsis, cystitis, UTI, infected decubitus, electrolyte derangement, severe anemia.) Admission/Observation Consideration of admission/observation: Escalation of care including admission/observation considered Lab Data MDM Lab Attestation statement: I reviewed the patient's lab results. 10/21/24 17:38 10/21/24 17:38 Labs: Lab Results 10/21/24 10/21/24 10/21/24 Range/Units 17:37 17:38 18:49 WBC 7.2 (4.8-10.8) X10*3/uL RBC 2.77 L (4.60-5.80) X10*6/uL Hgb 8.9 L (14.0-18.0) g/dl Hct 27.0 L (42.0-52.0) % MCV 97.5 (80.0-98.0) fL MCH 32.1 (27.0-33.0) pg MCHC 33.0 (31.0-36.0) g/dl RDW 14.3 (11.0-16.0) % Plt Count 235 (160-400) X10*3/uL MPV 9.2 L (9.4-12.4) fL Immature Gran % (Auto) 0.3 (0.0-0.4) % Neut % (Auto) 59.4 (45-73) % Lymph % (Auto) 26.5 (20-40) % [place] % (Auto) 10.5 (2-11) % Eos % (Auto) 2.9 (0-4) % Baso % (Auto) 0.4 (0-2) % Lymph # (Auto) 1.9 (1.2-4.9) X10*3/uL [place] # (Auto) 0.8 (0.1-1.2) X10*3/uL Eos # (Auto) 0.2 (0.0-0.4) X10*3/uL Baso # (Auto) 0.0 (0.0-0.2) X10*3/uL Abs Immat Gran (auto) 0.02 (0.00-0.03) X10*3/uL Absolute Neuts (auto) 4.3 (2.0-8.3) x10*3/uL Absolute Nucleated RBC 0.000 (0.0-0.012) X10*3/uL Nucleated RBC % (auto) 0.0 (0.0-0.2) /100WBC Hold Purple Top SEE NOTE Hold Blue Top SEE NOTE Sodium 142 (135-145) mmol/L Potassium 4.2 (3.3-5.1) mmol/L Chloride 113 H (96-108) mmol/L Carbon Dioxide 20 L (22-29) mmol/L Anion Gap 13 (12-20) BUN 56 H (9-16) mg/dL Creatinine 1.22 (0.5-1.4) mg/dL Estim Creat Clear Calc 58.1 Estimated GFR 59 Random Glucose 160 H (60-115) mg/dL Lactic Acid 1.3 (0.5-2.0) mmol/L Calcium 9.0 D (8.4-10.2) mg/dL Magnesium 2.1 (1.6-2.6) mg/dL Total Bilirubin 0.2 (0.0-1.0) mg/dL AST 30 (5-37) U/L ALT 19 (0-40) U/L Alkaline Phosphatase 102 (39-117) U/L Total Protein 6.9 (6.5-8.0) g/dL Albumin 2.5 L (3.5-5.0) g/dL Urine Color Urine Appearance Urine pH (5.0-9.0) Ur Specific [place] (1.005-1.025) Urine Protein (Neg-Trace) mg/dL Urine Glucose (UA) (Negative) mg/dL Urine Ketones (Negative) mg/dL Urine Blood (Negative) Urine Nitrite (Negative) Ur Leukocyte Esterase (Negative) Urine RBC (0-2) /HPF Urine WBC (0-5) /HPF Ur Squamous Epith Cells (0-2) /HPF Urine Bacteria (None Seen) Hyaline Casts (0-2) /LPF COVID-19 (GISELLE) Negative (Negative) COVID-19 Clin Com See Note Influenza Type A (JACINTO) Negative (Negative) Influenza Type B (JACINTO) Negative (Negative) Influenza A & B Note See Note 10/21/24 Range/Units 19:06 WBC (4.8-10.8) X10*3/uL RBC (4.60-5.80) X10*6/uL Hgb (14.0-18.0) g/dl Hct (42.0-52.0) % MCV (80.0-98.0) fL MCH (27.0-33.0) pg MCHC (31.0-36.0) g/dl RDW (11.0-16.0) % Plt Count (160-400) X10*3/uL MPV (9.4-12.4) fL Immature Gran % (Auto) (0.0-0.4) % Neut % (Auto) (45-73) % Lymph % (Auto) (20-40) % [place] % (Auto) (2-11) % Eos % (Auto) (0-4) % Baso % (Auto) (0-2) % Lymph # (Auto) (1.2-4.9) X10*3/uL [place] # (Auto) (0.1-1.2) X10*3/uL Eos # (Auto) (0.0-0.4) X10*3/uL Baso # (Auto) (0.0-0.2) X10*3/uL Abs Immat Gran (auto) (0.00-0.03) X10*3/uL Absolute Neuts (auto) (2.0-8.3) x10*3/uL Absolute Nucleated RBC (0.0-0.012) X10*3/uL Nucleated RBC % (auto) (0.0-0.2) /100WBC Hold Purple Top Hold Blue Top Sodium (135-145) mmol/L Potassium (3.3-5.1) mmol/L Chloride (96-108) mmol/L Carbon Dioxide (22-29) mmol/L Anion Gap (12-20) BUN (9-16) mg/dL Creatinine (0.5-1.4) mg/dL Estim Creat Clear Calc Estimated GFR Random Glucose (60-115) mg/dL Lactic Acid (0.5-2.0) mmol/L Calcium (8.4-10.2) mg/dL Magnesium (1.6-2.6) mg/dL Total Bilirubin (0.0-1.0) mg/dL AST (5-37) U/L ALT (0-40) U/L Alkaline Phosphatase (39-117) U/L Total Protein (6.5-8.0) g/dL Albumin (3.5-5.0) g/dL Urine Color Yellow Urine Appearance Cloudy Urine pH 7.5 (5.0-9.0) Ur Specific [place] 1.015 (1.005-1.025) Urine Protein 100 (2+) H (Neg-Trace) mg/dL Urine Glucose (UA) Negative (Negative) mg/dL Urine Ketones Negative (Negative) mg/dL Urine Blood Large (3+) H (Negative) Urine Nitrite Positive H (Negative) Ur Leukocyte Esterase Large (3+) H (Negative) Urine RBC >20 H (0-2) /HPF Urine WBC >50 H (0-5) /HPF Ur Squamous Epith Cells 0-2 (0-2) /HPF Urine Bacteria 1+ (None Seen) Hyaline Casts 3-5 (0-2) /LPF COVID-19 (GISELLE) (Negative) COVID-19 Clin Com Influenza Type A (JACINTO) (Negative) Influenza Type B (JACINTO) (Negative) Influenza A & B Note Critical Care Time Critical Care Time Critical Care Time: Yes Total Critical Care Time: 60 Attestation: The patient was critically ill with a high probability of imminent or life-threatening deterioration. I spent greater than 30 minutes of discontinuous time evaluating the patient, delivering critical care at the bedside, discussing evaluating data with consultants. Critical care time does not include time spent performing separately billable procedures or teaching. Time spent performing critical care was 60 minutes. Discharge Plan Discharge Clinical Impression: Stage 4 pressure ulcer, Acute UTI, Sepsis Patient Disposition: Admitted As Inpatient Print Language: Chinese
--- NOTE | 2024-10-21 18:57 | PC.NURSE ---
Second set of cultures obtained. Abx scanned before second set of cultures scanned to lab. Pt difficult stick
--- NOTE | 2024-10-21 18:57 | PC.NURSE ---
Pt pressures noted to be 200s/200s- MD Viktor tellez MD at bedside. Suprapubic cath replaced with 16fr suprapubic by .
--- NOTE | 2024-10-21 19:09 | PC.NURSE ---
this rn at bedside with . removing initial suprapubic catheter and replacing with new one. urine sample obtained from port. pt tolerated well. vss.
[2024-10-21 19:16] LABS: Appearance Urine Cloudy; Glucose Urine UA Negative (Negative); PH 7.5 (5.0-9.0); Specific Gravity - Urine 1.015 (1.005-1.025); UMIC TRIGGER UACC YES
[2024-10-21 19:30] LABS: UACC Culture Trigger YES
[2024-10-21 19:39] LABS: COVID-19 Test Negative (Negative); IDNOW Serial# 55D5AD1C; IDNOW Serial# 58CA691E; Influenza B2 Negative (Negative)
[2024-10-21] MEDS: vancomycin/NS 2,000 MG/500 ML PLAST..BAG 250 MG IV (20:21)
--- NOTE | 2024-10-21 21:30 | PC.NURSE ---
pt taken to CT, post fluid B/P to be done upon arrival back to room.
[2024-10-21 21:31] LABS: CDiff Gene PCR NEGATIVE (Negative)
[2024-10-21] MEDS: iohexoL 350 MG/ML 100 ML INFUS..BTL 85 ML IV (21:31)
--- NOTE | 2024-10-21 21:31 | ED.GENADULT ---
HPI - General Adult General Chief complaint: General Medical Stated complaint: nephrocity tube, finley leak , wound vac Time Seen by Provider: 10/21/24 17:28 Source: EMS, old records reviewed and re etcher Mode of arrival: EMS Limitations: altered mental status Related Data Home Medications ?Medication ?Instructions ?Recorded ?Confirmed acetaminophen 325 mg tablet 650 mg PO Q4H PRN fever/pain 02/16/21 06/29/24 calcium 600 mg (as 1 tab PO BID 02/16/21 09/25/24 carbonate)-vitamin D3 5 mcg (200 unit) tablet magnesium hydroxide 400 mg/5 mL 30 ml PO DAILY PRN No BM in 3 Days 02/16/21 06/29/24 oral suspension (Milk of Magnesia) levetiracetam 100 mg/mL oral 2.5 ml PO BID 02/26/21 06/29/24 solution atorvastatin 80 mg tablet 80 mg PO DAILY 01/26/22 09/25/24 rivaroxaban 20 mg tablet (Xarelto) 20 mg PO DAILY@1700 01/26/22 06/29/24 magnesium citrate 150 ml PO DAILY PRN No BM in 12 hrs 02/15/22 06/29/24 sodium phosphates 19 gram-7 118 ml [place] DAILY PRN If no BM in 8 02/15/22 06/29/24 gram/118 mL enema (Fleet Enema) hours after use of Bisacodyl acetaminophen 325 mg tablet 650 mg PO BEDTIME 10/03/22 09/25/24 (Tylenol) acetic acid 0.25 % irrigation 50 ml irrigation TUTHSA@2100 10/03/22 09/25/24 solution ferrous sulfate 325 mg (65 mg 325 mg PO DAILY 12/22/22 09/25/24 iron) tablet multivitamin 1 tab PO DAILY 01/18/24 09/25/24 psyllium 1 ea PO BEDTIME 01/18/24 06/29/24 sodium hypochlorite 0.125 % 1 appl topical BEDTIME 01/18/24 06/29/24 solution oxycodone 5 mg tablet 5 mg PO DAILY PRN Pain/Wound 04/19/24 06/29/24 Management simethicone 80 mg chewable tablet 80 mg PO Q6H PRN Abdominal 04/19/24 09/25/24 Distention collagenase clostridium histo. 250 1 appl topical DAILY 06/29/24 06/29/24 unit/gram topical ointment (Santyl) oxycodone 5 mg tablet 5 mg PO DAILY 06/29/24 09/25/24 Previous Rx's ?Medication ?Instructions ?Recorded wet wipes #5 multiple units 03/12/20 tamsulosin 0.4 mg capsule 0.4 mg PO BEDTIME 90 days #90 caps 03/22/20 gabapentin 300 mg capsule 300 mg PO BEDTIME 30 days #30 caps 03/27/20 miscellaneous medical supply #1 ea 03/27/20 ascorbic acid (vitamin C) 1,000 mg 1,000 mg PO DAILY 90 days #90 tabs 01/27/22 tablet methenamine hippurate 1 gram tablet 1 g PO daily 90 days #90 tabs 01/27/22 linezolid 600 mg tablet (Zyvox) 600 mg PO BID #34 tabs 07/10/24 potassium chloride 20 mEq 20 meq PO BID #60 tabs 07/10/24 tablet,extended release(part/cryst) vancomycin 25 mg/mL oral solution 125 mg (5 mL) PO Q6H #76 mL 07/10/24 (Firvanq) cefuroxime axetil 250 mg tablet 250 mg PO BID 7 days #14 tabs 08/15/24 Allergies Allergy/AdvReac Type Severity Reaction Status Date / Time No Known Allergies (No Known Allergy Verified 10/21/24 17:25 Allergies*) [facility] Past Medical History Medical History Multiple renal calculi 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 difficile diarrhea COVID-19 HTN (hypertension) High cholesterol Stroke UTI (urinary tract infection) due to urinary indwelling Finley catheter Essential hypertension Hemiplegia of right dominant side due to acute cerebrovascular disease Cerebrovascular accident (CVA) involving left cerebral hemisphere History of CVA (cerebrovascular accident) HTN (hypertension) Paroxysmal atrial fibrillation Surgical History History of insertion of nephrostomy tube No pertinent past surgical history Family History Family History Father No problems noted. Mother No problems noted. Social History Social History Household Members: None and Other Household Members Other:: SNF Housing: Senior Care Housing Other:: rehab Are you a primary neonatal intensive care nurse to a significant other at home: No Do you presently have visiting nurse or other home services: No Unable to assess alcohol history related to: Unable to respond Alcohol intake: former Comment: patient sleeping Patient Tobacco Use Status: Tobacco use Unknown Smoked in Last 30 Days: No Second Hand Smoke Exposure: No Use of substances other than those prescribed or required for medical reasons: No Advance Directives: Yes Advance Directives on File: Yes Advance Directives Date on File: 02/14/20 Do you have a plan to hurt others: No Plan Nutrition Risks: Difficulty chewing, Difficulty swallowing and On aspiration precautions service: No Current occupational status: disabled Physical Exam ED Vital Signs: Vital Signs - 24 hr 10/21/24 17:22 10/21/24 19:02 10/21/24 19:09 Temperature 100.5 F H 100.2 F 99.9 F Pulse Rate 119 H 112 H 105 H Respiratory Rate 15 18 20 Blood Pressure 105/61 122/69 111/50 L Pulse Oximetry 96 98 98 Oxygen Delivery Method Room Air Room Air Room Air 10/21/24 19:31 10/21/24 19:47 10/21/24 20:02 Temperature 99.7 F Pulse Rate 99 90 Respiratory Rate 12 Blood Pressure 111/52 L 95/64 102/60 Pulse Oximetry 98 Oxygen Delivery Method Room Air BMI result Body Mass Index 24.4 Medications Administered Generic Name Dose Route Start Last Admin Trade Name Freq PRN Reason Stop Dose Admin Vancomycin HCl 2,000 mg in 500 mls @ 250 mls/hr 10/21/24 20:11 10/21/24 20:21 Vancomycin/Ns IV 10/21/24 22:10 250 mls/hr ONCE ONE Administration Discontinued Medications Generic Name Dose Route Start Last Admin Trade Name Freq PRN Reason Stop Dose Admin Lactated Ringer's 1,000 mls @ 999 mls/hr 10/21/24 17:30 10/21/24 19:40 Lr IV 10/21/24 18:30 Infused .Q1H1M KEE Infusion Piperacillin Sod/Tazobactam 50 mls @ 100 mls/hr 10/21/24 17:28 10/21/24 18:44 Sod 3.375 gm/ Sodium Chloride IV 10/21/24 17:57 Infused ONCE ONE Infusion Acetaminophen 1,000 mg in 100 mls @ 400 mls/hr 10/21/24 18:33 10/21/24 19:11 Ofirmev IV 10/21/24 18:47 Infused ONCE ONE Infusion Lactated Ringer's 1,000 mls @ 999 mls/hr 10/21/24 20:15 10/21/24 21:14 Lr IV 10/21/24 21:15 Infused .Q1H1M KEE Infusion Medical Decision Making Lab Data 10/21/24 17:38 10/21/24 17:38 Labs: Lab Results 10/21/24 10/21/24 10/21/24 Range/Units 17:37 17:38 18:49 WBC 7.2 (4.8-10.8) X10*3/uL RBC 2.77 L (4.60-5.80) X10*6/uL Hgb 8.9 L (14.0-18.0) g/dl Hct 27.0 L (42.0-52.0) % MCV 97.5 (80.0-98.0) fL MCH 32.1 (27.0-33.0) pg MCHC 33.0 (31.0-36.0) g/dl RDW 14.3 (11.0-16.0) % Plt Count 235 (160-400) X10*3/uL MPV 9.2 L (9.4-12.4) fL Immature Gran % (Auto) 0.3 (0.0-0.4) % Neut % (Auto) 59.4 (45-73) % Lymph % (Auto) 26.5 (20-40) % [place] % (Auto) 10.5 (2-11) % Eos % (Auto) 2.9 (0-4) % Baso % (Auto) 0.4 (0-2) % Lymph # (Auto) 1.9 (1.2-4.9) X10*3/uL [place] # (Auto) 0.8 (0.1-1.2) X10*3/uL Eos # (Auto) 0.2 (0.0-0.4) X10*3/uL Baso # (Auto) 0.0 (0.0-0.2) X10*3/uL Abs Immat Gran (auto) 0.02 (0.00-0.03) X10*3/uL Absolute Neuts (auto) 4.3 (2.0-8.3) x10*3/uL Absolute Nucleated RBC 0.000 (0.0-0.012) X10*3/uL Nucleated RBC % (auto) 0.0 (0.0-0.2) /100WBC Hold Purple Top SEE NOTE Hold Blue Top SEE NOTE Sodium 142 (135-145) mmol/L Potassium 4.2 (3.3-5.1) mmol/L Chloride 113 H (96-108) mmol/L Carbon Dioxide 20 L (22-29) mmol/L Anion Gap 13 (12-20) BUN 56 H (9-16) mg/dL Creatinine 1.22 (0.5-1.4) mg/dL Estim Creat Clear Calc 58.1 Estimated GFR 59 Random Glucose 160 H (60-115) mg/dL Lactic Acid 1.3 (0.5-2.0) mmol/L Calcium 9.0 D (8.4-10.2) mg/dL Magnesium 2.1 (1.6-2.6) mg/dL Total Bilirubin 0.2 (0.0-1.0) mg/dL AST 30 (5-37) U/L ALT 19 (0-40) U/L Alkaline Phosphatase 102 (39-117) U/L Total Protein 6.9 (6.5-8.0) g/dL Albumin 2.5 L (3.5-5.0) g/dL Urine Color Urine Appearance Urine pH (5.0-9.0) Ur Specific [place] (1.005-1.025) Urine Protein (Neg-Trace) mg/dL Urine Glucose (UA) (Negative) mg/dL Urine Ketones (Negative) mg/dL Urine Blood (Negative) Urine Nitrite (Negative) Ur Leukocyte Esterase (Negative) Urine RBC (0-2) /HPF Urine WBC (0-5) /HPF Ur Squamous Epith Cells (0-2) /HPF Urine Bacteria (None Seen) Hyaline Casts (0-2) /LPF COVID-19 (GISELLE) Negative (Negative) COVID-19 Clin Com See Note Influenza Type A (JACINTO) Negative (Negative) Influenza Type B (JACINTO) Negative (Negative) Influenza A & B Note See Note 10/21/24 Range/Units 19:06 WBC (4.8-10.8) X10*3/uL RBC (4.60-5.80) X10*6/uL Hgb (14.0-18.0) g/dl Hct (42.0-52.0) % MCV (80.0-98.0) fL MCH (27.0-33.0) pg MCHC (31.0-36.0) g/dl RDW (11.0-16.0) % Plt Count (160-400) X10*3/uL MPV (9.4-12.4) fL Immature Gran % (Auto) (0.0-0.4) % Neut % (Auto) (45-73) % Lymph % (Auto) (20-40) % [place] % (Auto) (2-11) % Eos % (Auto) (0-4) % Baso % (Auto) (0-2) % Lymph # (Auto) (1.2-4.9) X10*3/uL [place] # (Auto) (0.1-1.2) X10*3/uL Eos # (Auto) (0.0-0.4) X10*3/uL Baso # (Auto) (0.0-0.2) X10*3/uL Abs Immat Gran (auto) (0.00-0.03) X10*3/uL Absolute Neuts (auto) (2.0-8.3) x10*3/uL Absolute Nucleated RBC (0.0-0.012) X10*3/uL Nucleated RBC % (auto) (0.0-0.2) /100WBC Hold Purple Top Hold Blue Top Sodium (135-145) mmol/L Potassium (3.3-5.1) mmol/L Chloride (96-108) mmol/L Carbon Dioxide (22-29) mmol/L Anion Gap (12-20) BUN (9-16) mg/dL Creatinine (0.5-1.4) mg/dL Estim Creat Clear Calc Estimated GFR Random Glucose (60-115) mg/dL Lactic Acid (0.5-2.0) mmol/L Calcium (8.4-10.2) mg/dL Magnesium (1.6-2.6) mg/dL Total Bilirubin (0.0-1.0) mg/dL AST (5-37) U/L ALT (0-40) U/L Alkaline Phosphatase (39-117) U/L Total Protein (6.5-8.0) g/dL Albumin (3.5-5.0) g/dL Urine Color Yellow Urine Appearance Cloudy Urine pH 7.5 (5.0-9.0) Ur Specific [place] 1.015 (1.005-1.025) Urine Protein 100 (2+) H (Neg-Trace) mg/dL Urine Glucose (UA) Negative (Negative) mg/dL Urine Ketones Negative (Negative) mg/dL Urine Blood Large (3+) H (Negative) Urine Nitrite Positive H (Negative) Ur Leukocyte Esterase Large (3+) H (Negative) Urine RBC >20 H (0-2) /HPF Urine WBC >50 H (0-5) /HPF Ur Squamous Epith Cells 0-2 (0-2) /HPF Urine Bacteria 1+ (None Seen) Hyaline Casts 3-5 (0-2) /LPF COVID-19 (GISELLE) (Negative) COVID-19 Clin Com Influenza Type A (JACINTO) (Negative) Influenza Type B (JACINTO) (Negative) Influenza A & B Note Discharge Plan Discharge Clinical Impression: Stage 4 pressure ulcer, Acute UTI, Sepsis Patient Disposition: Admitted As Inpatient
--- NOTE | 2024-10-21 21:37 | PC.NURSE ---
verbal report given to overflow RN.
--- NOTE | 2024-10-21 21:40 | PHA.PROG ---
Admission Date/Time: October 21, 2024 20:14 Indication: sepsis Weight in k.111 kg Adjusted body weight in Kg: [place] body weight in Kg: Obesity Dosing Indication % IBW: Serum Creatinine - Last 168 Hours 10/21/24 17:38 Creatinine 1.22 Estimated CrCl and GFR - Last 168 Hours 10/21/24 17:38 Estim Creat Clear Calc 58.1 Estimated GFR 59 Vancomycin Loading Dose: 2000 Current Vancomycin Dosing Regimen: 1500 Q24h Vancomycin Monitoring using AUC goal of 400 - 600 range with trough as surrogate marker: 567 Date and Time for next Vancomycin Level to be drawn: 10/23 @1800 Pharmacist Comments on Vancomycin Plan: Vancomycin dosing will take advantage of [employer] as a clinical decision support tool that uses Bayesian modeling to calculate individual patient's pharmacokinetic parameters and forecast the patient's drug concentration time course with the target goal AUC 24 range of 400 - 600 mg/L/hr.
--- NOTE | 2024-10-21 21:40 | PM.IMHP ---
History of Present Illness Date of Service: 10/21/24 Attending physician on admission: Wilbur Barrett Chief Complaint: suprapubic tube leaking/decreased output Patient is a 69-year-old male with a past medical history significant for history CVA with right-sided deficits, chronic UTIs, suprapubic tube, nephrostomy tube, wound VAC right hip, paroxysmal AFib on Xarelto, seizure disorder, history of C diff (currently receiving treatment), hypertension, who presented to the ED due to a change in his urine output and suprapubic tube leaking. The patient is nonverbal at baseline and therefore history was obtained from outside sources. He has been having a fever as well as diarrhea and is currently on vancomycin for C diff. he also has a wound VAC on the right hip as well as a stage IV decubitus ulcer. Review of Systems Review of Systems: Yes Unobtainable due to mental condition [facility] Medical History Multiple renal calculi 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 Mother No problems noted. Surgical History History of insertion of nephrostomy tube No pertinent past surgical history Social History Household Members: None and Other Household Members Other:: SNF Housing: Half-Way Housing Other:: rehab Are you a primary health care facility administrator to a significant other at home: No Do you presently have visiting nurse or other home services: No Unable to assess alcohol history related to: Unable to respond Alcohol intake: former Comment: patient sleeping Patient Tobacco Use Status: Tobacco use Unknown Smoked in Last 30 Days: No Second Hand Smoke Exposure: No Use of substances other than those prescribed or required for medical reasons: No Advance Directives: Yes Advance Directives on File: Yes Advance Directives Date on File: 02/14/20 Do you have a plan to hurt others: No Plan Nutrition Risks: Difficulty chewing, Difficulty swallowing and On aspiration precautions service: No Current occupational status: disabled Meds Allergies Allergy/AdvReac Type Severity Reaction Status Date / Time No Known Allergies (No Known Allergy Verified 10/21/24 17:25 Allergies*) Active Medications: Current Medications Acetaminophen (Acetaminophen 325 Mg Tablet) 650 mg PO Q6H PRN PRN Reason: Pain, Mild 1-3,fever,headache Calcium Carbonate (Calcium Carbonate 750 Mg Tab.Chew) 750 mg PO Q4H PRN PRN Reason: Heartburn Gabapentin (Gabapentin 300 Mg Capsule) 300 mg PO BEDTIME KEE Vancomycin HCl (Vancomycin/Ns) 2,000 mg in 500 mls @ 250 mls/hr IV ONCE ONE Stop: 10/21/24 22:10 Last Admin: 10/21/24 20:21 Dose: 250 mls/hr Piperacillin Sod/Tazobactam (Sod 3.375 gm/ Sodium Chloride) 50 mls @ 100 mls/hr IV Q6H KEE Vancomycin HCl 1,500 mg/ (Sodium Chloride) 500 mls @ 333.333 mls/hr IV Q24H KEE Levetiracetam (Levetiracetam Oral Soln 500 Mg/5 Ml) 250 mg PO BID KEE Magnesium Hydroxide (Milk Of Magnesia 30 Ml Oral.Susp) 30 ml PO DAILY PRN PRN Reason: Constipation Melatonin (Melatonin 3 Mg Tablet) 6 mg PO BEDTIME PRN PRN Reason: Insomnia Ondansetron HCl (Ondansetron Hcl 4 Mg/2 Ml Vial) 4 mg IVPUSH Q8H PRN PRN Reason: Nausea and Vomiting Oxycodone HCl (Oxycodone Hcl Immed Release 5 Mg Tablet) 5 mg PO Q6H PRN PRN Reason: Pain, Severe (Pain Scale 7-10) Pharmacy Consult (Consult Rx Vancomycin Dosing) 1 each MISCELLANE DAILY PRN PRN Reason: Consult order Rivaroxaban (Rivaroxaban 20 Mg Tablet) 20 mg PO DAILY@1700 [facility] Sodium Chloride (0.9 % Sodium Chloride Flush 3 Ml Syringe) 3 ml IVFLUSH QSHIFT KEE Tramadol HCl (Tramadol Hcl 50 Mg Tablet) 50 mg PO Q6H PRN PRN Reason: Pain, Moderate(Pain Scale 4-6) Home Medications ?Medication ?Instructions ?Recorded ?Confirmed ?Last Taken ?Type acetaminophen 325 mg tablet 650 mg PO Q4H PRN fever/pain 02/16/21 06/29/24 Unknown History calcium 600 mg (as 1 tab PO BID 02/16/21 09/25/24 02/14/22 History carbonate)-vitamin D3 5 mcg (200 unit) tablet magnesium hydroxide 400 mg/5 mL 30 ml PO DAILY PRN No BM in 3 Days 02/16/21 06/29/24 Unknown History oral suspension (Milk of Magnesia) levetiracetam 100 mg/mL oral 2.5 ml PO BID 02/26/21 06/29/24 02/14/22 History solution atorvastatin 80 mg tablet 80 mg PO DAILY 01/26/22 09/25/24 02/14/22 History rivaroxaban 20 mg tablet (Xarelto) 20 mg PO DAILY@1700 01/26/22 06/29/24 02/14/22 History magnesium citrate 150 ml PO DAILY PRN No BM in 12 hrs 02/15/22 06/29/24 Unknown History sodium phosphates 19 gram-7 118 ml [place] DAILY PRN If no BM in 8 02/15/22 06/29/24 Unknown History gram/118 mL enema (Fleet Enema) hours after use of Bisacodyl acetaminophen 325 mg tablet 650 mg PO BEDTIME 10/03/22 09/25/24 Unknown History (Tylenol) acetic acid 0.25 % irrigation 50 ml irrigation TUTHSA@2100 10/03/22 09/25/24 Unknown History solution ferrous sulfate 325 mg (65 mg 325 mg PO DAILY 12/22/22 09/25/24 Unknown History iron) tablet multivitamin 1 tab PO DAILY 01/18/24 09/25/24 Unknown History psyllium 1 ea PO BEDTIME 01/18/24 06/29/24 Unknown History sodium hypochlorite 0.125 % 1 appl topical BEDTIME 01/18/24 06/29/24 Unknown History solution oxycodone 5 mg tablet 5 mg PO DAILY PRN Pain/Wound 04/19/24 06/29/24 Unknown History Management simethicone 80 mg chewable tablet 80 mg PO Q6H PRN Abdominal 04/19/24 09/25/24 Unknown History Distention collagenase clostridium histo. 250 1 appl topical DAILY 06/29/24 06/29/24 Unknown History unit/gram topical ointment (Santyl) oxycodone 5 mg tablet 5 mg PO DAILY 06/29/24 09/25/24 Unknown History Physical Exam Vital Signs and Narrative: Vital Signs: Last Vital Signs Temp 98.8 F 10/21/24 20:43 Pulse 88 10/21/24 20:43 Resp 12 10/21/24 20:43 BP 103/56 L 10/21/24 20:43 Pulse Ox 97 10/21/24 20:43 O2 Del Method Room Air 10/21/24 20:43 BMI result Body Mass Index 24.4 General: A unable to determine orientation, no acute distress Resp: CTA bilaterally CVS: S1, S2, RRR GI/: +BS, NT, no distention. SPT draining straw colored urine. Skin: Warm, dry. wound vac R hip. decubitus ulcer as seen in photo, does not appear infected. Neuro: Cranial nerves II-XII grossly intact bilaterally. Motor grossly intact bilaterally Extremities: No pitting edema Psych: Appropriate affect Results Labs 10/21/24 17:38 10/21/24 17:38 Labs: Laboratory Results - last 24 hr 10/21/24 10/21/24 10/21/24 17:37 17:38 18:49 MCV 97.5 MCH 32.1 MCHC 33.0 RDW 14.3 Plt Count 235 MPV 9.2 L Immature Gran % (Auto) 0.3 Neut % (Auto) 59.4 Lymph % (Auto) 26.5 [place] % (Auto) 10.5 Eos % (Auto) 2.9 Baso % (Auto) 0.4 Lymph # (Auto) 1.9 [place] # (Auto) 0.8 Eos # (Auto) 0.2 Baso # (Auto) 0.0 Abs Immat Gran (auto) 0.02 Absolute Neuts (auto) 4.3 Absolute Nucleated RBC 0.000 Nucleated RBC % (auto) 0.0 Hold Purple Top SEE NOTE Hold Blue Top SEE NOTE Anion Gap 13 Estim Creat Clear Calc 58.1 Estimated GFR 59 Random Glucose 160 H Lactic Acid 1.3 Calcium 9.0 D Magnesium 2.1 Total Bilirubin 0.2 AST 30 ALT 19 Alkaline Phosphatase 102 Total Protein 6.9 Albumin 2.5 L Urine Color Urine Appearance Urine pH Ur Specific [place] Urine Protein Urine Glucose (UA) Urine Ketones Urine Blood Urine Nitrite Ur Leukocyte Esterase Urine RBC Urine WBC Ur Squamous Epith Cells Urine Bacteria Hyaline Casts C. difficile Tox B Gene NEGATIVE COVID-19 (GISELLE) Negative COVID-19 Clin Com See Note Influenza Type A (JACINTO) Negative Influenza Type B (JACINTO) Negative Influenza A & B Note See Note 10/21/24 19:06 MCV MCH MCHC RDW Plt Count MPV Immature Gran % (Auto) Neut % (Auto) Lymph % (Auto) [place] % (Auto) Eos % (Auto) Baso % (Auto) Lymph # (Auto) [place] # (Auto) Eos # (Auto) Baso # (Auto) Abs Immat Gran (auto) Absolute Neuts (auto) Absolute Nucleated RBC Nucleated RBC % (auto) Hold Purple Top Hold Blue Top Anion Gap Estim Creat Clear Calc Estimated GFR Random Glucose Lactic Acid Calcium Magnesium Total Bilirubin AST ALT Alkaline Phosphatase Total Protein Albumin Urine Color Yellow Urine Appearance Cloudy Urine pH 7.5 Ur Specific [place] 1.015 Urine Protein 100 (2+) H Urine Glucose (UA) Negative Urine Ketones Negative Urine Blood Large (3+) H Urine Nitrite Positive H Ur Leukocyte Esterase Large (3+) H Urine RBC >20 H Urine WBC >50 H Ur Squamous Epith Cells 0-2 Urine Bacteria 1+ Hyaline Casts 3-5 C. difficile Tox B Gene COVID-19 (GISELLE) COVID-19 Clin Com Influenza Type A (JACINTO) Influenza Type B (JACINTO) Influenza A & B Note Assessment and Plan (1) Sepsis: Status: Acute (2) Acute UTI: Status: Acute (3) Chronic suprapubic catheter: Status: Acute (4) Stage 4 pressure ulcer: Status: Acute (5) Open wound of right hip: Status: Acute (6) Chronic anemia: Status: Acute Plan Patient is a 69-year-old male with a past medical history significant for history CVA with right-sided deficits, chronic UTIs, suprapubic tube, nephrostomy tube, wound VAC right hip, paroxysmal AFib on Xarelto, seizure disorder, history of C diff (currently receiving treatment), hypertension, who presented to the ED due to a change in his urine output and suprapubic tube leaking. sepsis secondary to UTI with chronic suprapubic catheter + wound R hip - WBC 7.2, tachycardic and febrile at 100.5, lactic acid normal, blood cultures x2 pending, not severe sepsis - UA positive, culture pending - GI panel pending, C diff negative - wound vac on R hip - COVID/flu negative - EKG with sinus tachycardia - started on vancomycin and Zosyn in ED, continue - suprapubic tube changed in ED - A/P CT ordered - vascular, ID and wound care consults - received 2 L LR in ED, blood pressure stable - follow CBC and BMP Stage IV pressure ulcers - does not appear infected - wound care consult Chronic anemia - hemoglobin 8.1, hematocrit 27.0, improving from previous - no obvious bleeding sources - no need for blood transfusion at this time - monitor CBC Metabolic acidosis - secondary to sepsis/UTI - patient received 2 L IV fluids - monitor BMP Paroxysmal AFib - EKG with sinus tachycardia - continue home meds including Xarelto Seizure disorder - continue gabapentin and Keppra History C diff - complete current antibiotics - current C diff test negative Hypertension - hold home meds at this time, patient normotensive Med rec pending Full code VTE prophylaxis: Xarelto Patient with sepsis secondary to UTI complicated by right hip wound VAC and stage IV decubitus ulcer, requiring admission for at least 2 midnight stay for IV antibiotics and further evaluation. Quality Stroke Does the patient have a stroke diagnosis?: No VTE Prior VTE?: No VTE Risk Level:: Medical - moderate - high VTE Device Contraindication: Treatment Not Indicated VTE Drug Contraindication: N/A - Med Ordered
--- NOTE | 2024-10-21 21:42 | MHC.EDTECH ---
Called vascular surgery office and service answered and took message for routine consult
--- NOTE | 2024-10-21 21:43 | MHC.EDTECH ---
Cynthia Benitez for the infectious disease consult
--- NOTE | 2024-10-21 21:53 | PC.NURSE ---
pt transported to overflow by health information technologist.
[2024-10-21] MEDS: levETIRAcetam Oral Soln 500 MG/5 ML 250 MG PO (22:11)
[2024-10-22] MEDS: 0.9 % Sodium Chloride Flush 3 ML SYRINGE IVFLUSH ×4 (00:05→22:16)
[2024-10-22 04:35] LABS: MANUAL DIFF FLAG NO
[2024-10-22 04:38] LABS: Hematocrit 24.3 % (42.0-52.0); Hemoglobin 7.9 g/dl (14.0-18.0); Imm Gran Abs Auto 0.02 X10*3/uL (0.00-0.03); Imm Gran Pct Auto 0.4 % (0.0-0.4); Lymphocytes Absolute Auto 1.1 X10*3/uL (1.2-4.9); Mean Corpuscular HGB Conc 32.5 g/dl (31.0-36.0); Mean Corpuscular Hemoglobin 32.1 pg (27.0-33.0); Mean Corpuscular Volume 98.8 fL (80.0-98.0); NRBC Abs Auto 0.000 X10*3/uL (0.0-0.012); NRBC Pct Auto 0.0 /100WBC (0.0-0.2); Platelet Count 164 X10*3/uL (160-400); Red Blood Count 2.46 X10*6/uL (4.60-5.80); White Blood Count 5.2 X10*3/uL (4.8-10.8)
[2024-10-22 04:53] LABS: Anion Gap 12 (12-20); Blood Urea Nitrogen 46 mg/dL (9-16); Calcium 8.3 mg/dL (8.4-10.2); Carbon Dioxide 20 mmol/L (22-29); Chloride 115 mmol/L (96-108); Creatinine Clr Calc Pharmacy 63.3; Estimated Glomerular Filt Rate > 60; Potassium 3.5 mmol/L (3.3-5.1); Sodium 143 mmol/L (135-145)
--- NOTE | 2024-10-22 05:52 | PC.NURSE ---
Assumed care of patient around 2154. Patient continues to be nonverbal. He is calm and cooperative with incontinence care. No acute events overnight. Bed locked and in lowest setting, call giraldo within reach.
--- NOTE | 2024-10-22 05:53 | PC.NURSE ---
Assumed care of patient at 1900. Patient just getting settled into bed upon this lyric writer?s arrival to unit. He is alert and oriented x 3, able to make needs known. He is using a urinal at the bedside. Continues to wait for bed on Med Surg. No acute events overnight. Bed locked and in lowest setting, call giraldo within reach.
[2024-10-22 07:32] VITALS: PULSE 87; TEMP 36.9; O2SAT 100
--- NOTE | 2024-10-22 07:44 | PC.NURSE ---
This RN assumed care of patient @ 0700 Patient currently resting in bed Patient nonverbal baseline IV 20G in bilateral hands Wound vac to right hip in place running @ 125 mmHg Suprapubic cath in place draining clear yellow urine Patient being treated for urosepsis Patient awaiting consult with ID and vascular
[2024-10-22] MEDS: levETIRAcetam Oral Soln 500 MG/5 ML 250 MG PO ×2 (08:41→22:14)
--- NOTE | 2024-10-22 09:30 | PHA.MEDREC ---
Addendum entered by Aundrea Hu RPh 10/22/24 09:51: Reviewed by pharmacist Addendum entered by Blake Rahman 10/22/24 09:33: Pharmacy has completed the medication reconciliation. [facility] Original Note: Pharmacy Consult ? Medication Reconciliation Pharmacy has completed the medication reconciliation. Confirmed medications using list from [facility]
[2024-10-22 11:54] LABS: E. coli EAEC Not Detected (Not Detect.); E. coli EPEC Not Detected (Not Detect.); E. coli ETEC Not Detected (Not Detect.); E. coli STEC Not Detected (Not Detect.); Shigella sp./EIEC Not Detected (Not Detect.)
[2024-10-22 14:53] VITALS: BP 136/84; PULSE 83; RESP 15; TEMP 37; O2SAT 96
--- NOTE | 2024-10-22 17:22 | HO.PM.IMPN ---
Subjective Subjective Date of Service: 10/22/24 Interval History: Pt primarily nonverbal, unable to provide hx or ROS No acute events overnight Review of Systems Review of Systems: Yes Unobtainable due to mental status Physical Exam Exam: Exam: General: Awake and alert, primarily nonverbal, not following commands. In no acute distress. Resting comfortably in bed Resp: CTA bilaterally CVS: S1, S2, RRR GI: +BS, NT, no distention Skin: Warm, dry. Wound vac on right hip with small amount of serosanguineous output. Stage IV chronic decubitus sacral ulcer; see admission H&P for picture : Suprapubic catheter in place. Insertion site without erythema or discharge. Neuro: Cranial nerves II-XII grossly intact bilaterally. Motor grossly intact bilaterally Extremities: No edema Psych: Non verbal Vital Signs: Vital Signs: Last Vital Signs Temp 98.6 F 10/22/24 14:53 Pulse 83 10/22/24 14:53 Resp 15 10/22/24 14:53 BP 136/84 10/22/24 14:53 Pulse Ox 96 10/22/24 14:53 O2 Del Method Room Air 10/22/24 14:53 BMI result Body Mass Index 24.4 Objective Data Active Medications Acetaminophen (Acetaminophen 325 Mg Tablet) 650 mg PO Q6H PRN PRN Reason: Pain, Mild 1-3,fever,headache Calcium Carbonate (Calcium Carbonate 750 Mg Tab.Chew) 750 mg PO Q4H PRN PRN Reason: Heartburn Gabapentin (Gabapentin 300 Mg Capsule) 300 mg PO BEDTIME [facility] Last Admin: 10/21/24 22:12 Dose: 300 mg Documented By: KAR Piperacillin Sod/Tazobactam (Sod 3.375 gm/ Sodium Chloride) 50 mls @ 100 mls/hr IV Q6H [facility] Last Infusion: 10/22/24 12:43 Dose: Infused Documented By: FANTASMA Vancomycin HCl 1,500 mg/ (Sodium Chloride) 500 mls @ 333.333 mls/hr IV Q24H [facility] Levetiracetam (Levetiracetam Oral Soln 500 Mg/5 Ml) 250 mg PO BID [facility] Last Admin: 10/22/24 08:41 Dose: 250 mg Documented By: FANTASMA Magnesium Hydroxide (Milk Of Magnesia 30 Ml Oral.Susp) 30 ml PO DAILY PRN PRN Reason: Constipation Melatonin (Melatonin 3 Mg Tablet) 6 mg PO BEDTIME PRN PRN Reason: Insomnia Ondansetron HCl (Ondansetron Hcl 4 Mg/2 Ml Vial) 4 mg IVPUSH Q8H PRN PRN Reason: Nausea and Vomiting Oxycodone HCl (Oxycodone Hcl Immed Release 5 Mg Tablet) 5 mg PO Q6H PRN PRN Reason: Pain, Severe (Pain Scale 7-10) Pharmacy Consult (Consult Rx Vancomycin Dosing) 1 each MISCELLANE DAILY PRN PRN Reason: Consult order Rivaroxaban (Rivaroxaban 20 Mg Tablet) 20 mg PO DAILY@1700 [facility] Sodium Chloride (0.9 % Sodium Chloride Flush 3 Ml Syringe) 3 ml IVFLUSH QSHIFT [facility] Last Admin: 10/22/24 09:03 Dose: 3 ml Documented By: FANTASMA Tramadol HCl (Tramadol Hcl 50 Mg Tablet) 50 mg PO Q6H PRN PRN Reason: Pain, Moderate(Pain Scale 4-6) Labs 10/22/24 04:21 10/22/24 04:21 Labs: Laboratory Results - last 24 hr 10/21/24 10/21/24 10/21/24 17:37 17:38 18:49 MCV 97.5 MCH 32.1 MCHC 33.0 RDW 14.3 Plt Count 235 MPV 9.2 L Immature Gran % (Auto) 0.3 Neut % (Auto) 59.4 Lymph % (Auto) 26.5 [place] % (Auto) 10.5 Eos % (Auto) 2.9 Baso % (Auto) 0.4 Lymph # (Auto) 1.9 [place] # (Auto) 0.8 Eos # (Auto) 0.2 Baso # (Auto) 0.0 Abs Immat Gran (auto) 0.02 Absolute Neuts (auto) 4.3 Absolute Nucleated RBC 0.000 Nucleated RBC % (auto) 0.0 Hold Purple Top SEE NOTE Hold Blue Top SEE NOTE Anion Gap 13 Estim Creat Clear Calc 58.1 Estimated GFR 59 Random Glucose 160 H Lactic Acid 1.3 Calcium 9.0 D Magnesium 2.1 Total Bilirubin 0.2 AST 30 ALT 19 Alkaline Phosphatase 102 Total Protein 6.9 Albumin 2.5 L Urine Color Urine Appearance Urine pH Ur Specific [place] Urine Protein Urine Glucose (UA) Urine Ketones Urine Blood Urine Nitrite Ur Leukocyte Esterase Urine RBC Urine WBC Ur Squamous Epith Cells Urine Bacteria Hyaline Casts Stl C. cayetanensis PCR Stool Rotavirus A PCR Stl Adenov F 40/ PCR Stool Astrovirus (PCR) Stool Campylobacter PCR Stool Cryptosporidium PCR Stl Sh Tox Pr E STEC PCR Stool E coli O157 PCR Stl Enterotoxigenic E PCR Stool EPEC (PCR) Stool EAEC (PCR) Stl E. histolytica PCR Stool Giardia Lamblia PCR Stl P. shigelloides PCR Stool Salmonella PCR Stool Sapovirus (PCR) Stl Shigella/EIEC PCR St Y.enterocolitica PCR Stool Vibrio (PCR) Stl Vibrio cholerae PCR Stl Norovirus GI/GII PCR C. difficile Tox B Gene NEGATIVE COVID-19 (GISELLE) Negative COVID-19 Clin Com See Note Influenza Type A (JACINTO) Negative Influenza Type B (JACINTO) Negative Influenza A & B Note See Note 10/21/24 10/21/24 10/22/24 18:51 19:06 04:21 MCV 98.8 H MCH 32.1 MCHC 32.5 RDW 14.1 Plt Count 164 D MPV 9.3 L Immature Gran % (Auto) 0.4 Neut % (Auto) 65.4 Lymph % (Auto) 20.7 [place] % (Auto) 9.6 Eos % (Auto) 3.3 Baso % (Auto) 0.6 Lymph # (Auto) 1.1 L [place] # (Auto) 0.5 Eos # (Auto) 0.2 Baso # (Auto) 0.0 Abs Immat Gran (auto) 0.02 Absolute Neuts (auto) 3.4 Absolute Nucleated RBC 0.000 Nucleated RBC % (auto) 0.0 Hold Purple Top Hold Blue Top Anion Gap 12 Estim Creat Clear Calc 63.3 Estimated GFR > 60 Random Glucose 121 H Lactic Acid Calcium 8.3 L D Magnesium Total Bilirubin AST ALT Alkaline Phosphatase Total Protein Albumin Urine Color Yellow Urine Appearance Cloudy Urine pH 7.5 Ur Specific [place] 1.015 Urine Protein 100 (2+) H Urine Glucose (UA) Negative Urine Ketones Negative Urine Blood Large (3+) H Urine Nitrite Positive H Ur Leukocyte Esterase Large (3+) H Urine RBC >20 H Urine WBC >50 H Ur Squamous Epith Cells 0-2 Urine Bacteria 1+ Hyaline Casts 3-5 Stl C. cayetanensis PCR Not Detected Stool Rotavirus A PCR Not Detected Stl Adenov F 40/41 PCR Not Detected Stool Astrovirus (PCR) Not Detected Stool Campylobacter PCR Not Detected Stool Cryptosporidium PCR Not Detected Stl Sh Tox Pr E STEC PCR Not Detected Stool E coli O157 PCR Not applicable Stl Enterotoxigenic E PCR Not Detected Stool EPEC (PCR) Not Detected Stool EAEC (PCR) Not Detected Stl E. histolytica PCR Not Detected Stool Giardia Lamblia PCR Not Detected Stl P. shigelloides PCR Not Detected Stool Salmonella PCR Not Detected Stool Sapovirus (PCR) Not Detected Stl Shigella/EIEC PCR Not Detected St Y.enterocolitica PCR Not Detected Stool Vibrio (PCR) Not Detected Stl Vibrio cholerae PCR Not Detected Stl Norovirus GI/GII PCR Not Detected C. difficile Tox B Gene COVID-19 (GISELLE) COVID-19 Clin Com Influenza Type A (JACINTO) Influenza Type B (JACINTO) Influenza A & B Note Microbiology Microbiology Results: Microbiology 10/21/24 19:06 Urine Culture - Preliminary Urine Other - Suprapubic Culture too young to evaluate. Assessment and Plan (1) Ureteritis: Status: Acute Plan Patient is a 69-year-old male with a past medical history significant for history CVA with right-sided deficits, chronic UTIs, suprapubic tube, nephrostomy tube, wound VAC right hip, paroxysmal AFib on Xarelto, seizure disorder, history of C diff (currently receiving treatment), hypertension, who presented to the ED due to a change in his urine output and suprapubic tube leaking. UTI with ureteritis and hydroureter - no sepsis: tachycardic but no leukocytosis or fever; lactic acid normal, blood cultures x2 pending, not severe sepsis - UA positive, culture pending - complicated by wound vac on R hip - continue vancomycin and Zosyn, day 2 - suprapubic tube changed in ED - CT of A/P showing likely cystitis, hydroureter suggestive of ureteritis - vascular, ID and wound care consults - received 2 L LR in ED, blood pressure stable - follow CBC and BMP Stage IV pressure ulcers with ?Osteomyelitis - CT showing ulceration of right ischium with osseous destruction possibly indicative of osteomyelitis - similar findings from CT on 06/29 - wound care and ID consult - pt being covered with vanc and Zosyn as above Constipation - CT showing possible fecal impaction - Will give lactulose x1 - continue home bowel regimen Chronic anemia - stable, at baseline - no need for blood transfusion at this time - monitor CBC Metabolic acidosis - secondary to TI - patient received 2 L IV fluids - monitor BMP Paroxysmal AFib - EKG with sinus tachycardia - continue home meds including Xarelto Seizure disorder - continue gabapentin and Keppra History C diff - complete current antibiotics - current C diff test negative - GI panel negative Hypertension - hold home meds at this time, patient normotensive Med rec pending Full code VTE prophylaxis: Xarelto Patient requires continued hospitalization for IV antibiotics while awaiting cultures and specialist consultation Quality Stroke Does the patient have a stroke diagnosis?: No VTE Prior VTE?: No VTE Risk Level:: Medical - moderate - high VTE Device Contraindication: Treatment Not Indicated VTE Drug Contraindication: N/A - Med Ordered
[2024-10-22 18:51] VITALS: BP 117/66; PULSE 77; RESP 14; TEMP 36.4; O2SAT 97
--- NOTE | 2024-10-22 20:20 | PC.NURSE ---
pt incontinent of gelatinous black stool. While performing care pt's urostomy tube noted to be secured to black strap wrapped around bed rail. upon inspection urostomy tube noted to have no measurable output. It did not seem to be secured at the site but rather to a taped device several inches above site with tube feeling mobile at insertion site. Tube secured with large tegaderm. CAR REPAIRER Saman listed as unavailable, paged Dr. Camara then Arnold and Lillie to make aware of the black stool with MD holding xarelto, ? dislodged nephrostomy tube with MD placing order for urology consult. Pt with wound vac and deep wound on coccyx pending wound care. Air loss device applied to bed, Pt turned and repositioned for skin protection. pink foam applied to coccyx wound after flushing well to evacuate stool. Heel protective boots maintained, wound vac at -125 suction. Lactulose ordered for ? fecal impaction. Pt drank approx 10gm then refused remainder.
[2024-10-22 22:00] VITALS: BP 152/78; PULSE 86; RESP 18; TEMP 36.5; O2SAT 99
[2024-10-22] MEDS: Psyllium seed 3.7 GM PACKET PO (22:13)
--- NOTE | 2024-10-23 | PC.NURSE ---
Dr. Don made aware pt refused night medication despite multiple attempts, New orders placed, for IV Keppra, meds given per APR.
[2024-10-23 03:50] VITALS: BP 124/60; PULSE 69; RESP 18; TEMP 36.2; O2SAT 99
[2024-10-23 06:00] VITALS: BP 152/73; PULSE 58; RESP 18; TEMP 36.6; O2SAT 99
[2024-10-23 07:02] LABS: MANUAL DIFF FLAG NO
[2024-10-23 07:06] LABS: Hematocrit 26.0 % (42.0-52.0); Hemoglobin 8.6 g/dl (14.0-18.0); Imm Gran Abs Auto 0.01 X10*3/uL (0.00-0.03); Imm Gran Pct Auto 0.2 % (0.0-0.4); Lymphocytes Absolute Auto 0.9 X10*3/uL (1.2-4.9); Mean Corpuscular HGB Conc 33.1 g/dl (31.0-36.0); Mean Corpuscular Hemoglobin 32.0 pg (27.0-33.0); Mean Corpuscular Volume 96.7 fL (80.0-98.0); NRBC Abs Auto 0.000 X10*3/uL (0.0-0.012); NRBC Pct Auto 0.0 /100WBC (0.0-0.2); Platelet Count 199 X10*3/uL (160-400); Red Blood Count 2.69 X10*6/uL (4.60-5.80); White Blood Count 4.5 X10*3/uL (4.8-10.8)
--- NOTE | 2024-10-23 07:40 | HO.PM.IMPN ---
Subjective Subjective Date of Service: 10/23/24 Interval History: Patient appears to be by cytopenic-leukocytopenic Hb appears to be at the baseline (hb 7-8) - likely ACD Appears to be hemodynamically stable-mild hypertension Patient is on vanc and Zosyn for sepsis secondary to UTI Xarelto 20 mg p.o. daily home medication is on hold pending Urology consult ID, vascular surgery, Wound Care consulted-awaiting records Review of Systems Review of Systems: Yes Unobtainable due to mental status (nonverbal at baseline) Physical Exam Exam: Exam: General: Awake and alert, primarily nonverbal, not following commands. In no acute distress. Resting comfortably in bed Resp: CTA bilaterally CVS: S1, S2, RRR GI: +BS, NT, no distention Skin: Warm, dry. Wound vac on right hip with small amount of serosanguineous output. Stage IV chronic decubitus sacral ulcer; see admission H&P for picture : Suprapubic catheter in place. Insertion site without erythema or discharge. Neuro: Cranial nerves II-XII grossly intact bilaterally. Motor grossly intact bilaterally Extremities: No edema Psych: Non verbal Vital Signs: Vital Signs: Last Vital Signs Temp 97.8 F 10/23/24 06:00 Pulse 58 10/23/24 06:00 Resp 18 10/23/24 06:00 BP 152/73 H 10/23/24 06:00 Pulse Ox 99 10/23/24 06:00 O2 Del Method Room Air 10/23/24 06:00 BMI result Body Mass Index 24.4 Objective Data Active Medications Acetaminophen (Acetaminophen 325 Mg Tablet) 650 mg PO Q6H PRN PRN Reason: Pain, Mild 1-3,fever,headache Ascorbic Acid (Ascorbic Acid 500 Mg Tablet) 1,000 mg PO DAILY KEE Atorvastatin Calcium (Atorvastatin Calcium 80 Mg Tablet) 80 mg PO DAILY KEE Calcium Carbonate (Calcium Carbonate 750 Mg Tab.Chew) 750 mg PO Q4H PRN PRN Reason: Heartburn Ferrous Sulfate (Ferrous Sulfate 324 Mg Tablet.Dr) 324 mg PO DAILY KEE Gabapentin (Gabapentin 300 Mg Capsule) 300 mg PO BEDTIME [facility] Last Admin: 10/22/24 22:13 Dose: 300 mg Documented By: LINNETTE Comments: late given, pt still in ED, admit from ED Piperacillin Sod/Tazobactam (Sod 3.375 gm/ Sodium Chloride) 50 mls @ 100 mls/hr IV Q6H [facility] Last Infusion: 10/23/24 06:11 Dose: Infused Documented By: LINNETTE Vancomycin HCl 1,500 mg/ (Sodium Chloride) 500 mls @ 333.333 mls/hr IV Q24H [facility] Last Infusion: 10/22/24 23:50 Dose: Infused Documented By: LINNETTE Levetiracetam (Levetiracetam Oral Soln 500 Mg/5 Ml) 250 mg PO BID [facility] Last Admin: 10/22/24 22:14 Dose: 250 mg Documented By: LINNETTE Comments: late given, pt still in ED, admit from ED Magnesium Citrate (Magnesium Citrate 300 Ml Solution) 150 ml PO DAILY PRN PRN Reason: No BM in 12 hrs Magnesium Hydroxide (Milk Of Magnesia 30 Ml Oral.Susp) 30 ml PO DAILY PRN PRN Reason: Constipation Melatonin (Melatonin 3 Mg Tablet) 6 mg PO BEDTIME PRN PRN Reason: Insomnia Multivitamins/Vitamin C (Multivitamin Tablet) 1 tab PO DAILY [facility] Ondansetron HCl (Ondansetron Hcl 4 Mg/2 Ml Vial) 4 mg IVPUSH Q8H PRN PRN Reason: Nausea and Vomiting Oxycodone HCl (Oxycodone Hcl Immed Release 5 Mg Tablet) 5 mg PO Q6H PRN PRN Reason: Pain, Severe (Pain Scale 7-10) Pharmacy Consult (Consult Rx Vancomycin Dosing) 1 each MISCELLANE DAILY PRN PRN Reason: Consult order Potassium Chloride (Potassium Chloride Packet 20 Meq Packet) 40 meq PO DAILY [facility] Psyllium Hydrophilic Mucilloid (Psyllium Seed 3.7 Gm Packet) 3.7 gm PO BEDTIME [facility] Last Admin: 10/22/24 22:13 Dose: 3.7 gm Documented By: LINNETTE Comments: late given pt still in ED , admit from ed Rivaroxaban (Rivaroxaban 20 Mg Tablet) 20 mg PO DAILY@1700 [facility] On Hold: 10/22/24 19:43 Last Admin: 10/22/24 19:40 Dose: Not Given Documented By: WILMER Non-Admin Reason: Physician Held Med Simethicone (Simethicone 80 Mg Tab.Chew) 80 mg PO Q6H PRN PRN Reason: Abdominal Distention Sodium Biphosphate/Sodium Phosphate (Sodium Phosphate,[place]-Dibasic 133 Ml Enema) 118 ml [place] DAILY PRN PRN Reason: If no BM in 8 hours after use of Bisacodyl Sodium Chloride (0.9 % Sodium Chloride Flush 3 Ml Syringe) 3 ml IVFLUSH QSHIFT [facility] Last Admin: 10/22/24 22:16 Dose: 3 ml Documented By: LINNETTE Tamsulosin HCl (Tamsulosin Hcl 0.4 Mg Capsule) 0.4 mg PO BEDTIME [facility] Last Admin: 10/22/24 22:15 Dose: 0.4 mg Documented By: LINNETTE Comments: late given pt still in ED, admit from ED Tramadol HCl (Tramadol Hcl 50 Mg Tablet) 50 mg PO Q6H PRN PRN Reason: Pain, Moderate(Pain Scale 4-6) Vancomycin HCl (Vancomycin Hcl 125 Mg Capsule) 125 mg PO Q6H [facility] Last Admin: 10/23/24 03:09 Dose: 125 mg Documented By: LINNETTE Labs 10/23/24 06:08 10/23/24 06:08 Labs: Laboratory Results - last 24 hr 10/21/24 10/23/24 18:51 06:08 MCV 96.7 MCH 32.0 MCHC 33.1 RDW 14.0 Plt Count 199 MPV 9.1 L Immature Gran % (Auto) 0.2 Neut % (Auto) 68.8 Lymph % (Auto) 19.4 L [place] % (Auto) 8.6 Eos % (Auto) 2.6 Baso % (Auto) 0.4 Lymph # (Auto) 0.9 L [place] # (Auto) 0.4 Eos # (Auto) 0.1 Baso # (Auto) 0.0 Abs Immat Gran (auto) 0.01 Absolute Neuts (auto) 3.1 Absolute Nucleated RBC 0.000 Nucleated RBC % (auto) 0.0 Stl C. cayetanensis PCR Not Detected Stool Rotavirus A PCR Not Detected Stl Adenov F 40/41 PCR Not Detected Stool Astrovirus (PCR) Not Detected Stool Campylobacter PCR Not Detected Stool Cryptosporidium PCR Not Detected Stl Sh Tox Pr E STEC PCR Not Detected Stool E coli O157 PCR Not applicable Stl Enterotoxigenic E PCR Not Detected Stool EPEC (PCR) Not Detected Stool EAEC (PCR) Not Detected Stl E. histolytica PCR Not Detected Stool Giardia Lamblia PCR Not Detected Stl P. shigelloides PCR Not Detected Stool Salmonella PCR Not Detected Stool Sapovirus (PCR) Not Detected Stl Shigella/EIEC PCR Not Detected St Y.enterocolitica PCR Not Detected Stool Vibrio (PCR) Not Detected Stl Vibrio cholerae PCR Not Detected Stl Norovirus GI/GII PCR Not Detected Microbiology Microbiology Results: Microbiology 10/21/24 17:55 Blood Culture - Preliminary Blood - Venous No growth after 24 hours. 10/21/24 17:38 Blood Culture - Preliminary Blood - Venous No growth after 24 hours. 10/21/24 19:06 Urine Culture - Preliminary Urine Other - Suprapubic Culture too young to evaluate. Assessment and Plan (1) Ureteritis: Status: Acute Plan Patient is a 69-year-old male with a past medical history significant for history CVA with right-sided deficits, chronic UTIs, suprapubic tube, nephrostomy tube, wound VAC right hip, paroxysmal AFib on Xarelto, seizure disorder, history of C diff (currently receiving treatment), hypertension, who presented to the ED due to a change in his urine output and suprapubic tube leak. Urology consulted Inconclusive UA with ureteritis and hydroureter - patient met SIRS criteria based on leukocytosis POA, currently leukopenic-likely in the setting of antibiotics and hospitalization -patient is nonverbal at baseline and unable to provide history - UA suggestive of contamination, culture pending-preliminary culture negative - complicated by wound vac on R hip - continue vancomycin and Zosyn, day 3 given his current hospitalization, and high-risk of decompensation/multi organ failure in a patient with multiple medical and psychological comorbidities - suprapubic tube changed in ED during this admission 10/21/2024 - CT of A/P showing likely cystitis, hydroureter suggestive of ureteritis - vascular, ID and wound care consults awaiting recommendation Stage IV pressure ulcers with ?Osteomyelitis - CT showing ulceration of right ischium with osseous destruction possibly indicative of osteomyelitis - similar findings from CT on 06/29 - wound care and ID consult - pt being covered with vanc and Zosyn as above Constipation - CT showing possible fecal impaction - will uptitrate bowel regimen till daily stooling achieved to relief constipation - continue home bowel regimen Chronic anemia -likely secondary to ACD - we will transfuse if less than 7 - monitor CBC Paroxysmal AFib - Xarelto home med is on hold in the setting of possible urological surgical management If no surgical management planned, if cleared by Urology, can resume Xarelto -continue to monitor on telemetry and monitor electrolytes and replete to goal Seizure disorder - continue gabapentin and Keppra History C diff - currently treating with vancomycin 125 mg p.o. q.6 given history of C diff in the setting of BSA Hypertension - hold home meds at this time, patient normotensive Med rec pending Full code VTE prophylaxis: Xarelto Patient requires continued hospitalization for IV antibiotics while awaiting cultures and specialist consultation Quality Stroke Does the patient have a stroke diagnosis?: No VTE Prior VTE?: No VTE Risk Level:: Medical - moderate - high VTE Device Contraindication: Treatment Not Indicated VTE Drug Contraindication: N/A - Med Ordered
[2024-10-23 08:00] VITALS: BP 124/68; PULSE 93; RESP 16; TEMP 36.6; O2SAT 99
[2024-10-23 08:23] LABS: Anion Gap 13 (12-20); Blood Urea Nitrogen 36 mg/dL (9-16); Calcium 8.4 mg/dL (8.4-10.2); Carbon Dioxide 19 mmol/L (22-29); Chloride 119 mmol/L (96-108); Creatinine Clr Calc Pharmacy 60.1; Estimated Glomerular Filt Rate > 60; Potassium 2.6 mmol/L (3.3-5.1); Sodium 148 mmol/L (135-145)
[2024-10-23] MEDS: 0.9 % Sodium Chloride Flush 3 ML SYRINGE IVFLUSH ×3 (08:43→23:03)
[2024-10-23] MEDS: Potassium Chloride/H20 10 MEQ/100 ML PIGGYBACK 100 MEQ IV ×4 (08:45→11:40)
[2024-10-23] MEDS: levETIRAcetam Oral Soln 500 MG/5 ML 250 MG PO (08:47)
[2024-10-23] MEDS: Potassium Chloride Packet 20 MEQ PACKET 40 MEQ PO ×2 (08:47→10:33)
[2024-10-23] MEDS: Ferrous Sulfate 324 MG TABLET.DR PO (08:47)
--- NOTE | 2024-10-23 09:09 | MHC.CM.PN ---
CM ASSESSMENT COMPLETED W/ SON/ALT HCP JOCELYNE. PRIMARY HCP/SON, WENDY, IS SAID TO BE IN [place] AND PHONE NUMBER IS NOT IN SERVICE. IMM DELIVERED. PATIENT COMES FROM LTC @ [facility]. + BED HOLD. DEPENDENT W/ ALL CARE, NONVERBAL, SUPRAPUBIC CATH, WOUND VAC HCP/MOLST ON FILE AND VERIFIED PCP CHRISTINE SINGH MD DP: RETURN TO LTC @ [facility] VIA BLS. CM WILL CONTINUE TO FOLLOW.
--- NOTE | 2024-10-23 10:42 | P.CNUR_ITS ---
History of Present Illness Consult details Consult date: 10/23/24 Narrative: 69-year-old male Nonverbal with a past medical history significant for history CVA with right-sided deficits, chronic UTIs, suprapubic tube, nephrostomy tube, wound VAC right hip, paroxysmal AFib on Xarelto, seizure disorder, history of C diff (currently receiving treatment), hypertension, who presented to the ED due to a change in his urine output and reported suprapubic tube leaking, fever, diarrhea and is currently on vancomycin for C diff. he also has a wound VAC on the right hip as well as a stage IV decubitus ulcer. Review of Systems 2 Review of Systems: Yes Unobtainable due to mental condition PMFSH Past Medical History Medical History Multiple renal calculi 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 Mother No problems noted. Surgical History Surgical History History of insertion of nephrostomy tube No pertinent past surgical history Social History Social History Household Members: None Household Members Other:: SNF Housing: [facility] Housing Other:: rehab Are you a primary youth care worker to a significant other at home: No Do you presently have visiting nurse or other home services: No Unable to assess alcohol history related to: Unable to respond Alcohol intake: former Comment: patient sleeping Patient Tobacco Use Status: Tobacco use Unknown Second Hand Smoke Exposure: No Advance Directives Date on File: 02/14/20 service: No Current occupational status: disabled Meds Allergies Allergy/AdvReac Type Severity Reaction Status Date / Time No Known Allergies (No Known Allergy Verified 10/21/24 17:25 Allergies*) Active Medications: Current Medications Acetaminophen (Acetaminophen 325 Mg Tablet) 650 mg PO Q6H PRN PRN Reason: Pain, Mild 1-3,fever,headache Ascorbic Acid (Ascorbic Acid 500 Mg Tablet) 1,000 mg PO DAILY [facility] Last Admin: 10/23/24 08:47 Dose: 1,000 mg Atorvastatin Calcium (Atorvastatin Calcium 80 Mg Tablet) 80 mg PO DAILY [facility] Last Admin: 10/23/24 08:47 Dose: 80 mg Calcium Carbonate (Calcium Carbonate 750 Mg Tab.Chew) 750 mg PO Q4H PRN PRN Reason: Heartburn Ferrous Sulfate (Ferrous Sulfate 324 Mg Tablet.Dr) 324 mg PO DAILY [facility] Last Admin: 10/23/24 08:47 Dose: 324 mg Gabapentin (Gabapentin 300 Mg Capsule) 300 mg PO BEDTIME [facility] Last Admin: 10/22/24 22:13 Dose: 300 mg Piperacillin Sod/Tazobactam (Sod 3.375 gm/ Sodium Chloride) 50 mls @ 100 mls/hr IV Q6H [facility] Last Infusion: 10/23/24 06:11 Dose: Infused Vancomycin HCl 1,500 mg/ (Sodium Chloride) 500 mls @ 333.333 mls/hr IV Q24H [facility] Last Infusion: 10/22/24 23:50 Dose: Infused Potassium Chloride (Potassium Chloride/H20) 10 meq in 100 mls @ 100 mls/hr IV Q1H [facility] Stop: 10/23/24 12:29 Last Admin: 10/23/24 10:33 Dose: 100 mls/hr Levetiracetam (Levetiracetam Oral Soln 500 Mg/5 Ml) 250 mg PO BID [facility] Last Admin: 10/23/24 08:47 Dose: 250 mg Magnesium Citrate (Magnesium Citrate 300 Ml Solution) 150 ml PO DAILY PRN PRN Reason: No BM in 12 hrs Magnesium Hydroxide (Milk Of Magnesia 30 Ml Oral.Susp) 30 ml PO DAILY PRN PRN Reason: Constipation Melatonin (Melatonin 3 Mg Tablet) 6 mg PO BEDTIME PRN PRN Reason: Insomnia Multivitamins/Vitamin C (Multivitamin Tablet) 1 tab PO DAILY [facility] Last Admin: 10/23/24 08:47 Dose: 1 tab Ondansetron HCl (Ondansetron Hcl 4 Mg/2 Ml Vial) 4 mg IVPUSH Q8H PRN PRN Reason: Nausea and Vomiting Oxycodone HCl (Oxycodone Hcl Immed Release 5 Mg Tablet) 5 mg PO Q6H PRN PRN Reason: Pain, Severe (Pain Scale 7-10) Pharmacy Consult (Consult Rx Vancomycin Dosing) 1 each MISCELLANE DAILY PRN PRN Reason: Consult order Potassium Chloride (Potassium Chloride Packet 20 Meq Packet) 40 meq PO DAILY [facility] Last Admin: 10/23/24 10:33 Dose: 40 meq Psyllium Hydrophilic Mucilloid (Psyllium Seed 3.7 Gm Packet) 3.7 gm PO BEDTIME [facility] Last Admin: 10/22/24 22:13 Dose: 3.7 gm Rivaroxaban (Rivaroxaban 20 Mg Tablet) 20 mg PO DAILY@1700 [facility] On Hold: 10/22/24 19:43 Last Admin: 10/22/24 19:40 Dose: Not Given Simethicone (Simethicone 80 Mg Tab.Chew) 80 mg PO Q6H PRN PRN Reason: Abdominal Distention Sodium Biphosphate/Sodium Phosphate (Sodium Phosphate,[place]-Dibasic 133 Ml Enema) 118 ml [place] DAILY PRN PRN Reason: If no BM in 8 hours after use of Bisacodyl Sodium Chloride (0.9 % Sodium Chloride Flush 3 Ml Syringe) 3 ml IVFLUSH QSHIFT [facility] Last Admin: 10/23/24 08:43 Dose: 3 ml Tamsulosin HCl (Tamsulosin Hcl 0.4 Mg Capsule) 0.4 mg PO BEDTIME [facility] Last Admin: 10/22/24 22:15 Dose: 0.4 mg Tramadol HCl (Tramadol Hcl 50 Mg Tablet) 50 mg PO Q6H PRN PRN Reason: Pain, Moderate(Pain Scale 4-6) Vancomycin HCl (Vancomycin Hcl 125 Mg Capsule) 125 mg PO Q6H [facility] Last Admin: 10/23/24 08:47 Dose: 125 mg Home Medications ?Medication ?Instructions ?Recorded ?Confirmed ?Last Taken ?Type acetaminophen 325 mg tablet 650 mg PO Q4H PRN fever/pa in 02/16/21 10/22/24 Unknown History calcium 600 mg (as 1 tab PO BID 02/16/2102/14/22 History carbonate)-vitamin D3 5 mcg (200 unit) tablet magnesium hydroxide 400 mg/5 mL 30 ml PO DAILY PRN No BM in 3 Days 02/16/21 10/22/24 Unknown History oral suspension (Milk of Magnesia) levetiracetam 100 mg/mL oral 2.5 ml PO BID 02/26/2102/14/22 History solution atorvastatin 80 mg tablet 80 mg PO DAILY 01/26/2209/2402/14/22 History magnesium citrate 150 ml PO DAILY PRN No BM in 12 hrs 02/15/22 10/22/24 Unknown History sodium phosphates 19 gram-7 118 ml [place] DAILY PRN If no BM in 8 02/15/22 10/22/24 Unknown History gram/118 mL enema (Fleet Enema) hours after use of Bis acodyl acetaminophen 325 mg tablet 650 mg PO BEDTIME 10/03/22 10/22/24 Unknown History (Tylenol) acetic acid 0.25 % irrigation 50 ml irrigation TUTHSA@ 2100 10/03/22 10/22/24 Unknown History solution ferrous sulfate 325 mg (65 mg 325 mg PO DAILY 12/22/22 10/22/24 Unknown History iron) tablet multivitamin 1 tab PO DAILY 01/18/2409/24 Unknown History psyllium 1 ea PO BEDTIME 01/18/24 Unknown History simethicone 80 mg chewable tablet 80 mg PO Q6H PRN Abd ominal 04/19/24 10/22/24 Unknown History Distention oxycodone 5 mg tablet 5 mg PO BID 06/29/24 5 Unknown History potassium chloride 20 mEq/15 mL 40 meq PO DAILY 10/22/24 Unknown History oral liquid vancomycin 125 mg capsule 125 mg PO Q6H 10/22/2410/22 Unknown History Physical Exam 2 Vital Signs: Vital Signs: Last Vital Signs Temp 97.9 F 10/23/24 08:00 Pulse 93 10/23/24 08:00 Resp 16 10/23/24 08:00 BP 124/68 10/23/24 08:00 Pulse Ox 99 10/23/24 08:00 O2 Del Method Room Air 10/23/24 08:00 BMI result Body Mass Index 24.4 Results Labs 10/23/24 06:08 10/23/24 06:08 Labs: Abnormal lab results 10/23/24 Range/Units 06:08 WBC 4.5 L (4.8-10.8) X10*3/uL RBC 2.69 L (4.60-5.80) X10*6/uL Hgb 8.6 L (14.0-18.0) g/dl Hct 26.0 L (42.0-52.0) % MPV 9.1 L (9.4-12.4) fL Lymph % (Auto) 19.4 L (20-40) % Lymph # (Auto) 0.9 L (1.2-4.9) X10*3/uL Sodium 148 H (135-145) mmol/L Potassium 2.6 L* D (3.3-5.1) mmol/L Chloride 119 H (96-108) mmol/L Carbon Dioxide 19 L (22-29) mmol/L BUN 36 H (9-16) mg/dL Random Glucose 119 H (60-115) mg/dL Short CBC 10/23/24 Range/Units 06:08 WBC 4.5 L (4.8-10.8) X10*3/uL Hgb 8.6 L (14.0-18.0) g/dl Hct 26.0 L (42.0-52.0) % Plt Count 199 (160-400) X10*3/uL BMP 10/23/24 06:08 Sodium 148 H Potassium 2.6 L* D Chloride 119 H Carbon Dioxide 19 L BUN 36 H Creatinine 1.18 Calcium 8.4 Urine 10/21/24 Range/Units 19:06 Urine Color Yellow Urine Appearance Cloudy Urine pH 7.5 (5.0-9.0) Ur Specific [place] 1.015 (1.005-1.025) Urine Protein 100 (2+) H (Neg-Trace) mg/dL Urine Glucose (UA) Negative (Negative) mg/dL All other labs normal. Imaging Abdomen CT scan report/results: report reviewed and image reviewed CT scan - pelvis: report reviewed and image reviewed Additional studies: Date of Service: 10/21/24 CLINICAL HISTORY: sepsis, non-verbal, stage [address] abdomen and pelvis with contrast Comparison: CT/NM - CT ABDOMEN PELVIS W IV CON - 06/29/24 12:[address]/NM/SR - CT ABDOMEN PELVIS W IV CON - 06/29/24 12:06 EDT Findings: Atelectasis versus linear scarring at the lung bases. Underdistended gallbladder. There is a suprapubic Walker catheter in the bladder which is decompressed. There is mucosal hyperenhancement in the bladder. Unchanged fullness of the bilateral renal pelvises with mucosal thickening. There is a stone which extends from the right renal pelvis into the proximal ureter measuring up to 6.4 cm, unchanged. Status post right percutaneous nephrostomy, unchanged. Right nephrolithiasis measures up to 4 mm. There is unchanged right parapelvic stranding. Mild right hydroureter with mucosal thickening and hyperenhancement, increased. Bilateral renal subcentimeter low attenuating lesions which are too small to characterize. The spleen measures the upper limit of normal size. The other solid organs are unremarkable. No dilation or wall thickening of the small bowel. A normal appendix is identified. There is a catheter in the rectum. The rectum is nondistended, however the distal sigmoid colon is distended with stool, measuring up to 7.8 cm in transverse dimension, previously 6.2 cm. There is persistent wall thickening of the distal sigmoid colon. The sigmoid colon is redundant and distended predominantly with air, measuring up to 12.9 cm, previously measuring up to 10.9 cm. There is a moderate amount of increased stool throughout the colon. The colon is also distended with air. The descending colon is dilated, measuring up to 6.9 cm, previously measuring 5.2 cm. No pneumatosis or portal venous gas. No aneurysm. Severe calcified atherosclerotic disease. No lymphadenopathy. No ascites. No acute osseous abnormality. Decubitus ulcer at the right ischium which extends to bone with associated osseous destruction, new. There is infiltration of the adjacent subcutaneous fat. No rim enhancing fluid collection. Impression: Mucosal hyperenhancement in the bladder may indicate cystitis. New right hydroureter with mucosal thickening and hyperenhancement which may indicate ureteritis. Status post right percutaneous nephrostomy, unchanged. Correlate with urinalysis. Ulceration of the right ischium which extends to the bone with associated osseous destruction which may indicate osteomyelitis. Persistent dilation of the colon which may indicate ileus or colonic pseudo-obstruction. Increase in distention of the distal sigmoid colon with stool could be due to fecal impaction. There is wall thickening of the distal sigmoid colon which was also present on the prior study; stercoral colitis is considered less likely. Assessment and Plan (1) Urinary retention with incomplete bladder emptying: Status: Acute (2) VI (acute kidney injury): Status: Acute (3) Chronic suprapubic catheter: Status: Acute (4) UTI (urinary tract infection): Status: Inactive (5) Obstructive uropathy: Status: Acute Plan Right neph tube intact draining, changed 09/20/24 SP tube drainining no leakage around site at this time Wound vac in place for sacral decub Procedures Date of Service Date of Service: 10/23/24
[2024-10-23 12:58] LABS: Magnesium 2.2 mg/dL (1.6-2.6)
[2024-10-23 13:20] LABS: OBS Int Ctl Valid YES; OBS1 NEGATIVE (NEGATIVE)
[2024-10-23 15:08] VITALS: BP 118/58; PULSE 86; RESP 16; TEMP 36.1; O2SAT 98
[2024-10-23 16:01] VITALS: BMI 24.4
[2024-10-23 20:00] VITALS: BP 146/83; PULSE 69; RESP 20; TEMP 36.3; O2SAT 99
--- NOTE | 2024-10-24 00:20 | W.PM.IDCN ---
History of Present Illness Data of Consult Service Date: 10/24/24 Requesting physician: Viri Villatoro Primary Care Provider: Unknown Physician HPI Reason for consult: sepsis [facility] ,nonbloody diarrhea and fever to 100.5 and tachycardia to 105. He has no nausea or vomiting. CT abdomen ileus,right hydroureter. His suprapubic tube is leaking. He had wound vac for chronic nonhealing OM Review of Systems Review of Systems: Yes all other systems are reviewed and are negative [facility] Past Medical History Medical History Multiple renal calculi 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 Mother No problems noted. Family history: reviewed and not pertinent Surgical History Surgical History History of insertion of nephrostomy tube No pertinent past surgical history Social History Social History Household Members: None Household Members Other:: SNF Housing: Long Term Housing Other:: rehab Are you a primary attending ambulatory care to a significant other at home: No Do you presently have visiting nurse or other home services: No Unable to assess alcohol history related to: Unable to respond Alcohol intake: former Comment: patient sleeping Patient Tobacco Use Status: Tobacco use Unknown Second Hand Smoke Exposure: No Advance Directives Date on File: 02/14/20 service: No Current occupational status: disabled Meds Allergies Allergy/AdvReac Type Severity Reaction Status Date / Time No Known Allergies (No Known Allergy Verified 10/21/24 17:25 Allergies*) Active Medications: Current Medications Acetaminophen (Acetaminophen 325 Mg Tablet) 650 mg PO Q6H PRN PRN Reason: Pain, Mild 1-3,fever,headache Ascorbic Acid (Ascorbic Acid 500 Mg Tablet) 1,000 mg PO DAILY [facility] Last Admin: 10/23/24 08:47 Dose: 1,000 mg Atorvastatin Calcium (Atorvastatin Calcium 80 Mg Tablet) 80 mg PO DAILY [facility] Last Admin: 10/23/24 08:47 Dose: 80 mg Calcium Carbonate (Calcium Carbonate 750 Mg Tab.Chew) 750 mg PO Q4H PRN PRN Reason: Heartburn Ferrous Sulfate (Ferrous Sulfate 324 Mg Tablet.Dr) 324 mg PO DAILY [facility] Last Admin: 10/23/24 08:47 Dose: 324 mg Gabapentin (Gabapentin 300 Mg Capsule) 300 mg PO BEDTIME [facility] Last Admin: 10/23/24 22:16 Dose: Not Given Piperacillin Sod/Tazobactam (Sod 3.375 gm/ Sodium Chloride) 50 mls @ 100 mls/hr IV Q6H [facility] Last Infusion: 10/23/24 23:34 Dose: Infused Vancomycin HCl 750 mg/ Sodium (Chloride) 265 mls @ 265 mls/hr IV Q24H [facility] Levetiracetam 250 mg/ Sodium (Chloride) 102.5 mls @ 410 mls/hr IV Q12H [facility] Magnesium Citrate (Magnesium Citrate 300 Ml Solution) 150 ml PO DAILY PRN PRN Reason: No BM in 12 hrs Magnesium Hydroxide (Milk Of Magnesia 30 Ml Oral.Susp) 30 ml PO DAILY PRN PRN Reason: Constipation Melatonin (Melatonin 3 Mg Tablet) 6 mg PO BEDTIME PRN PRN Reason: Insomnia Multivitamins/Vitamin C (Multivitamin Tablet) 1 tab PO DAILY [facility] Last Admin: 10/23/24 08:47 Dose: 1 tab Ondansetron HCl (Ondansetron Hcl 4 Mg/2 Ml Vial) 4 mg IVPUSH Q8H PRN PRN Reason: Nausea and Vomiting Oxycodone HCl (Oxycodone Hcl Immed Release 5 Mg Tablet) 5 mg PO Q6H PRN PRN Reason: Pain, Severe (Pain Scale 7-10) Pharmacy Consult (Consult Rx Vancomycin Dosing) 1 each MISCELLANE DAILY PRN PRN Reason: Consult order Potassium Chloride (Potassium Chloride Packet 20 Meq Packet) 40 meq PO DAILY [facility] Last Admin: 10/23/24 10:33 Dose: 40 meq Psyllium Hydrophilic Mucilloid (Psyllium Seed 3.7 Gm Packet) 3.7 gm PO BEDTIME [facility] Last Admin: 10/23/24 22:16 Dose: Not Given Rivaroxaban (Rivaroxaban 20 Mg Tablet) 20 mg PO DAILY@1700 [facility] On Hold: 10/22/24 19:43 Last Admin: 10/22/24 19:40 Dose: Not Given Simethicone (Simethicone 80 Mg Tab.Chew) 80 mg PO Q6H PRN PRN Reason: Abdominal Distention Sodium Biphosphate/Sodium Phosphate (Sodium Phosphate,[place]-Dibasic 133 Ml Enema) 118 ml [place] DAILY PRN PRN Reason: If no BM in 8 hours after use of Bisacodyl Sodium Chloride (0.9 % Sodium Chloride Flush 3 Ml Syringe) 3 ml IVFLUSH QSHIFT [facility] Last Admin: 10/23/24 23:03 Dose: 3 ml Tamsulosin HCl (Tamsulosin Hcl 0.4 Mg Capsule) 0.4 mg PO BEDTIME [facility] Last Admin: 10/23/24 22:16 Dose: Not Given Tramadol HCl (Tramadol Hcl 50 Mg Tablet) 50 mg PO Q6H PRN PRN Reason: Pain, Moderate(Pain Scale 4-6) Vancomycin HCl (Vancomycin Hcl 125 Mg Capsule) 125 mg PO Q6H [facility] Last Admin: 10/23/24 22:16 Dose: Not Given Home Medications ?Medication ?Instructions ?Recorded ?Confirmed ?Last Taken ?Type acetaminophen 325 mg tablet 650 mg PO Q4H PRN fever/pain 02/16/21 10/22/24 Unknown History calcium 600 mg (as 1 tab PO BID 02/16/21 10/22/24 02/14/22 History carbonate)-vitamin D3 5 mcg (200 unit) tablet magnesium hydroxide 400 mg/5 mL 30 ml PO DAILY PRN No BM in 3 Days 02/16/21 10/22/24 Unknown History oral suspension (Milk of Magnesia) levetiracetam 100 mg/mL oral 2.5 ml PO BID 02/26/21 10/22/24 02/14/22 History solution atorvastatin 80 mg tablet 80 mg PO DAILY 01/26/22 10/22/24 02/14/22 History magnesium citrate 150 ml PO DAILY PRN No BM in 12 hrs 02/15/22 10/22/24 Unknown History sodium phosphates 19 gram-7 118 ml [place] DAILY PRN If no BM in 8 02/15/22 10/22/24 Unknown History gram/118 mL enema (Fleet Enema) hours after use of Bisacodyl acetaminophen 325 mg tablet 650 mg PO BEDTIME 10/03/22 10/22/24 Unknown History (Tylenol) acetic acid 0.25 % irrigation 50 ml irrigation TUTHSA@2100 10/03/22 10/22/24 Unknown History solution ferrous sulfate 325 mg (65 mg 325 mg PO DAILY 12/22/22 10/22/24 Unknown History iron) tablet multivitamin 1 tab PO DAILY 01/18/24 10/22/24 Unknown History psyllium 1 ea PO BEDTIME 01/18/24 10/22/24 Unknown History simethicone 80 mg chewable tablet 80 mg PO Q6H PRN Abdominal 04/19/24 10/22/24 Unknown History Distention oxycodone 5 mg tablet 5 mg PO BID 06/29/24 10/22/24 Unknown History potassium chloride 20 mEq/15 mL 40 meq PO DAILY 10/22/24 10/22/24 Unknown History oral liquid vancomycin 125 mg capsule 125 mg PO Q6H 10/22/24 10/22/24 Unknown History Physical Exam Vital Signs: Vital Signs: Last Vital Signs Temp 97.4 F 10/23/24 20:00 Pulse 69 10/23/24 20:00 Resp 20 10/23/24 20:00 BP 146/83 H 10/23/24 20:00 Pulse Ox 99 10/23/24 20:00 O2 Del Method Room Air 10/23/24 20:00 BMI result Body Mass Index 24.4 Const: General: cooperative HEENT: Head: Yes normal to inspection Face and sinus: Yes normal facial exam Mouth: Normal oral and palatal mucosa present Teeth and gingiva: dentition normal Eyes: General: appearance normal, both eyes and all related structures Pupils: Equal, round and reactive pupils present Resp: Effort & Inspection: normal respiratory effort Cardio: Rate: regular rate Rhythm: regular rhythm GI: Palpation (GI): Soft to palpation and nontender Back/Spine/Pelvis: Other: stage 4 nonhealing chronic ulcer sacrum suprapubic tube Skin: General skin exam: no rashes or lesions noted Neuro: General: moves all extremities Cranial nerves: Yes Equal, round and reactive pupils present Extrem: General: Yes normal to inspection Psych: Appearance: grossly normal Results Labs 10/23/24 06:08 10/23/24 06:08 Labs: Short CBC 10/23/24 Range/Units 06:08 WBC 4.5 L (4.8-10.8) X10*3/uL Hgb 8.6 L (14.0-18.0) g/dl Hct 26.0 L (42.0-52.0) % Plt Count 199 (160-400) X10*3/uL BMP 10/23/24 06:08 Sodium 148 H Potassium 2.6 L* D Chloride 119 H Carbon Dioxide 19 L BUN 36 H Creatinine 1.18 Calcium 8.4 Microbiology Microbiology Results: Microbiology 10/21/24 17:55 Blood - Venous Blood Culture - Preliminary No growth after 48 hours. 10/21/24 17:38 Blood - Venous Blood Culture - Preliminary No growth after 48 hours. 10/21/24 19:06 Urine Other - Suprapubic Urine Culture - Final Assessment and Plan (1) Ureteritis: Status: Acute (2) Chronic suprapubic catheter: Status: Acute (3) Obstructive uropathy: Status: Acute Plan Probable transient obstruction urinary flow with suprapubic cath leakage causing sepsis. Urine and blood cultures negative so far. He may also have viral syndrome with diarrhea causing sepsis acutely. Sacral OM chronic and nonhealing ( I had seen him 07/03 with sacral OM) He reportedly continues to see [facility]. Would continue Vancomycin and Zosyn and stop if final cultures blood and urine negative. No plans for custodial IV antibiotics for sacral OM unless Plastic Surgery has plans to skin graft the area. Continue Vancomycin oral now qid for 10 days and then po 125 mg every ,,Wednesday. Surgery to see if ileus becomes concern (had before).
[2024-10-24 04:00] VITALS: BP 150/78; PULSE 84; RESP 18; TEMP 36.3; O2SAT 98
[2024-10-24 06:46] LABS: MANUAL DIFF FLAG NO
[2024-10-24 06:54] LABS: Hematocrit 25.7 % (42.0-52.0); Hemoglobin 8.3 g/dl (14.0-18.0); Imm Gran Abs Auto 0.01 X10*3/uL (0.00-0.03); Imm Gran Pct Auto 0.2 % (0.0-0.4); Lymphocytes Absolute Auto 1.1 X10*3/uL (1.2-4.9); Mean Corpuscular HGB Conc 32.3 g/dl (31.0-36.0); Mean Corpuscular Hemoglobin 31.7 pg (27.0-33.0); Mean Corpuscular Volume 98.1 fL (80.0-98.0); NRBC Abs Auto 0.000 X10*3/uL (0.0-0.012); NRBC Pct Auto 0.0 /100WBC (0.0-0.2); Platelet Count 210 X10*3/uL (160-400); Red Blood Count 2.62 X10*6/uL (4.60-5.80); White Blood Count 4.4 X10*3/uL (4.8-10.8)
[2024-10-24 07:21] VITALS: BP 153/87; PULSE 86; RESP 14; TEMP 36; O2SAT 96
[2024-10-24 07:26] LABS: Alanine Aminotransferase 8 U/L (0-40); Albumin Level 2.3 g/dL (3.5-5.0); Alkaline Phosphatase 84 U/L (39-117); Anion Gap 12 (12-20); Aspartate Amino Transferase 24 U/L (5-37); Blood Urea Nitrogen 32 mg/dL (9-16); Calcium 8.3 mg/dL (8.4-10.2); Carbon Dioxide 20 mmol/L (22-29); Chloride 122 mmol/L (96-108); Creatinine Clr Calc Pharmacy 56.7; Estimated Glomerular Filt Rate 57; Potassium 3.2 mmol/L (3.3-5.1); Sodium 151 mmol/L (135-145); Total Protein 6.4 g/dL (6.5-8.0)
--- NOTE | 2024-10-24 07:43 | HE.PHANOTE ---
RE: VANCO DOSING Trough came back as 26 mg/L after being held for almost 12 hours. Continue to hold for another 24 hours, next trough is scheduled for 10/25/24 @0600.
--- NOTE | 2024-10-24 07:46 | P.PNIM_ITS ---
Subjective Subjective Date of Service: 10/24/24 Interval History: Patient is now hyponatremic-likely hypovolemic hyponatremia in the setting of sepsis, mild hypokalemia, mild improvement in acidosis, hypoalbuminemia Patient appears to have chronic hematuria, UA suggestive of a UTI, however culture was negative Patient was supratherapeutic vancomycin, goal is 15-20 and being managed by pharmacy Review of Systems Review of Systems: Yes Unobtainable due to mental status Physical Exam 2 Exam: Exam: General: Awake and alert, primarily nonverbal, not following commands. In no acute distress. Resting comfortably in bed Resp: CTA bilaterally CVS: S1, S2, RRR GI: +BS, NT, no distention Skin: Warm, dry. Wound vac on right hip with small amount of serosanguineous output. Stage IV chronic decubitus sacral ulcer; see admission H&P for picture : Suprapubic catheter in place. Insertion site without erythema or discharge. Neuro: Cranial nerves II-XII grossly intact bilaterally. Motor grossly intact bilaterally Psych: Non verbal Vital Signs: Vital Signs: Last Vital Signs Temp 96.8 F 10/24/24 07:21 Pulse 86 10/24/24 07:21 Resp 14 10/24/24 07:21 BP 153/87 H 10/24/24 07:21 Pulse Ox 96 10/24/24 07:21 O2 Del Method Room Air 10/24/24 07:21 BMI result Body Mass Index 24.4 Objective Data Active Medications Acetaminophen (Acetaminophen 325 Mg Tablet) 650 mg PO Q6H PRN PRN Reason: Pain, Mild 1-3,fever,headache Ascorbic Acid (Ascorbic Acid 500 Mg Tablet) 1,000 mg PO DAILY [facility] Last Admin: 10/23/24 08:47 Dose: 1,000 mg Documented By: TOI Atorvastatin Calcium (Atorvastatin Calcium 80 Mg Tablet) 80 mg PO DAILY [facility] Last Admin: 10/23/24 08:47 Dose: 80 mg Documented By: TOI Calcium Carbonate (Calcium Carbonate 750 Mg Tab.Chew) 750 mg PO Q4H PRN PRN Reason: Heartburn Ferrous Sulfate (Ferrous Sulfate 324 Mg Tablet.) 324 mg PO DAILY [facility] Last Admin: 10/23/24 08:47 Dose: 324 mg Documented By: TOI Gabapentin (Gabapentin 300 Mg Capsule) 300 mg PO BEDTIME [facility] Last Admin: 10/23/24 22:16 Dose: Not Given Documented By: KATHY Non-Admin Reason: Patient Refused Piperacillin Sod/Tazobactam (Sod 3.375 gm/ Sodium Chloride) 50 mls @ 100 mls/hr IV Q6H [facility] Last Infusion: 10/24/24 06:04 Dose: Infused Documented By: KATHY Vancomycin HCl 750 mg/ Sodium (Chloride) 265 mls @ 265 mls/hr IV Q24H KEE Levetiracetam 250 mg/ Sodium (Chloride) 102.5 mls @ 410 mls/hr IV Q12H [facility] Last Infusion: 10/24/24 01:13 Dose: Infused Documented By: KATHY Magnesium Citrate (Magnesium Citrate 300 Ml Solution) 150 ml PO DAILY PRN PRN Reason: No BM in 12 hrs Magnesium Hydroxide (Milk Of Magnesia 30 Ml Oral.Susp) 30 ml PO DAILY PRN PRN Reason: Constipation Melatonin (Melatonin 3 Mg Tablet) 6 mg PO BEDTIME PRN PRN Reason: Insomnia Multivitamins/Vitamin C (Multivitamin Tablet) 1 tab PO DAILY [facility] Last Admin: 10/23/24 08:47 Dose: 1 tab Documented By: TOI Ondansetron HCl (Ondansetron Hcl 4 Mg/2 Ml Vial) 4 mg IVPUSH Q8H PRN PRN Reason: Nausea and Vomiting Oxycodone HCl (Oxycodone Hcl Immed Release 5 Mg Tablet) 5 mg PO Q6H PRN PRN Reason: Pain, Severe (Pain Scale 7-10) Pharmacy Consult (Consult Rx Vancomycin Dosing) 1 each MISCELLANE DAILY PRN PRN Reason: Consult order Potassium Chloride (Potassium Chloride Packet 20 Meq Packet) 40 meq PO DAILY [facility] Last Admin: 10/23/24 10:33 Dose: 40 meq Documented By: TOI Psyllium Hydrophilic Mucilloid (Psyllium Seed 3.7 Gm Packet) 3.7 gm PO BEDTIME [facility] Last Admin: 10/23/24 22:16 Dose: Not Given Documented By: KATHY Non-Admin Reason: Patient Refused Rivaroxaban (Rivaroxaban 20 Mg Tablet) 20 mg PO DAILY@1700 [facility] On Hold: 10/22/24 19:43 Last Admin: 10/22/24 19:40 Dose: Not Given Documented By: WILMER Non-Admin Reason: Physician Held Med Simethicone (Simethicone 80 Mg Tab.Chew) 80 mg PO Q6H PRN PRN Reason: Abdominal Distention Sodium Biphosphate/Sodium Phosphate (Sodium Phosphate,[place]-Dibasic 133 Ml Enema) 118 ml [place] DAILY PRN PRN Reason: If no BM in 8 hours after use of Bisacodyl Sodium Chloride (0.9 % Sodium Chloride Flush 3 Ml Syringe) 3 ml IVFLUSH QSHIFT [facility] Last Admin: 10/23/24 23:03 Dose: 3 ml Documented By: KATHY Tamsulosin HCl (Tamsulosin Hcl 0.4 Mg Capsule) 0.4 mg PO BEDTIME [facility] Last Admin: 10/23/24 22:16 Dose: Not Given Documented By: KATHY Non-Admin Reason: Patient Refused Tramadol HCl (Tramadol Hcl 50 Mg Tablet) 50 mg PO Q6H PRN PRN Reason: Pain, Moderate(Pain Scale 4-6) Vancomycin HCl (Vancomycin Hcl 125 Mg Capsule) 125 mg PO Q6H [facility] Last Admin: 10/24/24 01:28 Dose: 125 mg Documented By: KATHY Labs 10/24/24 06:10 10/24/24 06:10 Labs: Laboratory Results - last 24 hr 10/23/24 10/23/24 10/23/24 06:08 12:10 13:00 MCV MCH MCHC RDW Plt Count MPV Immature Gran % (Auto) Neut % (Auto) Lymph % (Auto) [place] % (Auto) Eos % (Auto) Baso % (Auto) Lymph # (Auto) [place] # (Auto) Eos # (Auto) Baso # (Auto) Abs Immat Gran (auto) Absolute Neuts (auto) Absolute Nucleated RBC Nucleated RBC % (auto) Hold Purple Top SEE NOTE Anion Gap 13 Estim Creat Clear Calc 60.1 Estimated GFR > 60 Random Glucose 119 H Calcium 8.4 Magnesium 2.2 Total Bilirubin AST ALT Alkaline Phosphatase Total Protein Albumin Stool Occult Blood NEGATIVE Random Vancomycin 10/23/24 10/24/24 19:43 06:10 MCV 98.1 H MCH 31.7 MCHC 32.3 RDW 13.9 Plt Count 210 MPV 9.1 L Immature Gran % (Auto) 0.2 Neut % (Auto) 61.5 Lymph % (Auto) 25.1 [place] % (Auto) 9.3 Eos % (Auto) 3.4 Baso % (Auto) 0.5 Lymph # (Auto) 1.1 L [place] # (Auto) 0.4 Eos # (Auto) 0.2 Baso # (Auto) 0.0 Abs Immat Gran (auto) 0.01 Absolute Neuts (auto) 2.7 Absolute Nucleated RBC 0.000 Nucleated RBC % (auto) 0.0 Hold Purple Top Anion Gap 12 Estim Creat Clear Calc 56.7 Estimated GFR 57 Random Glucose 106 Calcium 8.3 L Magnesium Total Bilirubin 0.3 AST 24 ALT 8 Alkaline Phosphatase 84 Total Protein 6.4 L Albumin 2.3 L Stool Occult Blood Random Vancomycin 28.5 H* 26.0 H* Microbiology Microbiology Results: Microbiology 10/21/24 17:55 Blood Culture - Preliminary Blood - Venous No growth after 48 hours. 10/21/24 17:38 Blood Culture - Preliminary Blood - Venous No growth after 48 hours. 10/21/24 19:06 Urine Culture - Final Urine Other - Suprapubic Assessment and Plan (1) Ureteritis: Status: Acute Plan Patient is a nonverbal at baseline 69-year-old male with a past medical history significant for history CVA with right-sided deficits, chronic UTIs, suprapubic tube, nephrostomy tube, wound VAC right hip, paroxysmal AFib on Xarelto, seizure disorder, history of C diff (currently receiving treatment), hypertension, who presented to the ED due to a change in his urine output and suprapubic tube leak. Inconclusive UA with ureteritis and hydroureter Obstructive uropathy with chronic suprapubic catheter History of recurrent complicated UTIs Paralytic ileus small intestine and colon History of chronic hematuria followed in clinic by Nephrology Patient is baseline nonverbal and hence most of the history is through the chart review Patient appeared to have chronic suprapubic catheter that change in his urine output and suprapubic tube leak and sepsis workup was initiated which did not show overt signs of severe sepsis. Imaging - Probable transient obstruction urinary flow with suprapubic cath leakage causing sepsis. Urine and blood cultures negative so far. CT of A/P showing likely cystitis, hydroureter suggestive of ureteritis Surgery consulted for management of wound VAC Per vascular surgery no indication for any acute management Per urology-no acute surgical management Per ID-would not need IV long-term antibiotics for sacral osteomyelitis unless plastic surgery has plans to his skin graft the area ID consulted likely will not need chronic antibiotics given chronicity and possibility of Continue vancomycin oral q.i.d. for 10 days and then p.o. 125 mg every Wednesday and Wednesday for C diff colonization Surgery to be consulted if ileus becomes a concern which had happened before UA final result is negative, awaiting blood cultures and if negative, we will discontinued Zosyn and vancomycin complicated by wound vac on R hip, appears to have been removed on 10/24/2024 continue vancomycin and Zosyn, day 5 given his current hospitalization, we will DC if culture results are negative suprapubic tube changed in ED during this admission 10/21/2024 Worsening hypernatremia Hypokalemia Likely in the setting of hypovolemic hyponatremia given fluid losses We will initiate free water and recheck BMP q.12 hours Goal correction 6-8 in 24 hours(140 for the next 24 hours) We will replete potassium IV given poor oral tolerance Stage IV pressure ulcers with ?Osteomyelitis Wheelchair-bound at baseline Chronic progressive decubitus ulcers Per ID for now we will continue vanc and Zosyn and stop if final cultures are negative Per ID no long-term IV antibiotics for sacral osteomyelitis unless plastic surgery has plans to his skin graft the area Continue vancomycin oral q.i.d. for 10 days and then p.o. 125 mg every Wednesday and Wednesday Surgery to be consulted if ileus becomes a concern which had happened before - CT showing ulceration of right ischium with osseous destruction possibly indicative of osteomyelitis - similar findings from CT on 06/29 - wound care consult - pt being covered with vanc and Zosyn as above Constipation - CT POA suggestive of fecal impaction likely given chronic sedentary comorbidities - will uptitrate bowel regimen till daily stooling achieved to relief constipation - continue home bowel regimen Chronic anemia -likely secondary to ACD - we will transfuse if less than 7 - daily monitor CBC Paroxysmal AFib - Xarelto resumed since no urological intervention planned -continue to monitor on telemetry and monitor electrolytes and replete to goal Patient has chronic hematuria being followed by Nephrology outpatient hence we will defer for outpatient Nephrology for further medical management Seizure disorder - continue gabapentin and Keppra History C diff - Continue Vancomycin oral now qid for 10 days and then po 125 mg every ,,Wednesday. Hypertension -hold antihypertensives Med rec pending Full code VTE prophylaxis: Xarelto Quality Stroke Does the patient have a stroke diagnosis?: No VTE Prior VTE?: No VTE Risk Level:: Medical - moderate - high VTE Device Contraindication: Treatment Not Indicated VTE Drug Contraindication: N/A - Med Ordered
[2024-10-24] MEDS: 0.9 % Sodium Chloride Flush 3 ML SYRINGE IVFLUSH ×2 (10:21→16:02)
[2024-10-24] MEDS: Ferrous Sulfate 324 MG TABLET.DR PO (10:21)
--- NOTE | 2024-10-24 11:04 | MHC.CM.PN ---
PT NOT YET CLEARED FOR DC, PLAN SOF SURGERY CONSULT DCP: RETURN TO [facility] AT [facility] VIA BLS
--- NOTE | 2024-10-24 11:27 | MHC.CLN ---
CONSULT DIET=PUREE WITH HONEY THICK LIQUIDS. INCREASED NUTRITION NEEDS DUE TO PRESSURE INJURIES. ADDING MAGIC CUP TID TO PROMOTE WOUND HEALING. PROVIDES 870 KCALS, 27 G PROTEIN. FOLLOW FOR PO INTAKE AND SKIN INTEGRITY. SEE FULL ASSESSMENT DATED 10/23/24
--- NOTE | 2024-10-24 11:40 | HO.SKINPHOTO ---
Location: right hip/buttock Wound vac in place. View 1. Location: Right hip/buttock Wound vac in place, view 2 Location: right hip/buttock Wound vac in place view 3. Location: Sacrum wound Removed foam dressing with gauze packing. Cleaned with normal saline, pat dry, packed with saline gauze, foam dressing applied. Location: Suprapubic Catheter insertion site split gauze changed. Site WNL Location: Nephrostomy Tube site. Split gauze change. Site WNL
--- NOTE | 2024-10-24 11:54 | PM.CNGS ---
History of Present Illness Consult details Consult date: 10/24/24 Reason for consult: wound care Narrative: 69-year-old patient with a history of CVA right-sided deficit suprapubic to presented to the hospital for suprapubic tube leaking. Incidentally was discovered to have a chronic sacral decubitus ulcer which has been treated with a wound VAC. he now presents to us for vascular evaluation. Review of Systems Review of Systems: Yes all other systems are reviewed and are negative Constitutional: Constitutional: Reports no additional constitutional complaints ENT: Reports Normal hearing present Cardiovascular: Cardiovascular: Denies chest pain, Denies chest pain at rest, Denies chest pain with activity and Denies pedal edema Respiratory: Respiratory: Denies cough Gastrointestinal: Gastrointestinal: Denies abdominal pain Musculoskeletal: Musculoskeletal: Denies abnormal gait, Denies muscle cramps and Denies radiating pain into limb Integumentary/Breasts: Skin/Breast: Denies skin ulcer and Denies wounds Neurologic: Reports Normal hearing present and Denies abnormal gait Psychiatric: Psychiatric: Reports no additional psychiatric complaints PMFSH Past Medical History Medical History Multiple renal calculi 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 Mother No problems noted. Family history: reviewed and not pertinent Surgical History Surgical History History of insertion of nephrostomy tube No pertinent past surgical history Social History Social History Household Members: None Household Members Other:: SNF Housing: [facility] Housing Other:: rehab Are you a primary child day care center worker to a significant other at home: No Do you presently have visiting nurse or other home services: No Unable to assess alcohol history related to: Unable to respond Alcohol intake: former Comment: patient sleeping Patient Tobacco Use Status: Tobacco use Unknown Second Hand Smoke Exposure: No Advance Directives Date on File: 02/14/20 service: No Current occupational status: disabled Meds Allergies Allergy/AdvReac Type Severity Reaction Status Date / Time No Known Allergies (No Known Allergy Verified 10/21/24 17:25 Allergies*) Active Medications: Current Medications Acetaminophen (Acetaminophen 325 Mg Tablet) 650 mg PO Q6H PRN PRN Reason: Pain, Mild 1-3,fever,headache Ascorbic Acid (Ascorbic Acid 500 Mg Tablet) 1,000 mg PO DAILY [facility] Last Admin: 10/24/24 10:21 Dose: 1,000 mg Atorvastatin Calcium (Atorvastatin Calcium 80 Mg Tablet) 80 mg PO DAILY [facility] Last Admin: 10/24/24 10:26 Dose: Not Given Calcium Carbonate (Calcium Carbonate 750 Mg Tab.Chew) 750 mg PO Q4H PRN PRN Reason: Heartburn Ferrous Sulfate (Ferrous Sulfate 324 Mg Tablet.Dr) 324 mg PO DAILY [facility] Last Admin: 10/24/24 10:21 Dose: 324 mg Gabapentin (Gabapentin 300 Mg Capsule) 300 mg PO BEDTIME [facility] Last Admin: 10/23/24 22:16 Dose: Not Given Piperacillin Sod/Tazobactam (Sod 3.375 gm/ Sodium Chloride) 50 mls @ 100 mls/hr IV Q6H [facility] Last Infusion: 10/24/24 06:04 Dose: Infused Vancomycin HCl 750 mg/ Sodium (Chloride) 265 mls @ 265 mls/hr IV Q24H KEE Levetiracetam 250 mg/ Sodium (Chloride) 102.5 mls @ 410 mls/hr IV Q12H [facility] Last Infusion: 10/24/24 01:13 Dose: Infused Sodium Chloride (Sodium Chloride 0.45 %) 1,000 mls @ 125 mls/hr IVCONT .Q8H [facility] Last Admin: 10/24/24 10:38 Dose: 125 mls/hr Magnesium Citrate (Magnesium Citrate 300 Ml Solution) 150 ml PO DAILY PRN PRN Reason: No BM in 12 hrs Magnesium Hydroxide (Milk Of Magnesia 30 Ml Oral.Susp) 30 ml PO DAILY PRN PRN Reason: Constipation Melatonin (Melatonin 3 Mg Tablet) 6 mg PO BEDTIME PRN PRN Reason: Insomnia Multivitamins/Vitamin C (Multivitamin Tablet) 1 tab PO DAILY [facility] Last Admin: 10/24/24 10:26 Dose: Not Given Ondansetron HCl (Ondansetron Hcl 4 Mg/2 Ml Vial) 4 mg IVPUSH Q8H PRN PRN Reason: Nausea and Vomiting Oxycodone HCl (Oxycodone Hcl Immed Release 5 Mg Tablet) 5 mg PO Q6H PRN PRN Reason: Pain, Severe (Pain Scale 7-10) Pharmacy Consult (Consult Rx Vancomycin Dosing) 1 each MISCELLANE DAILY PRN PRN Reason: Consult order Potassium Chloride (Potassium Chloride Packet 20 Meq Packet) 40 meq PO DAILY [facility] Last Admin: 10/23/24 10:33 Dose: 40 meq Psyllium Hydrophilic Mucilloid (Psyllium Seed 3.7 Gm Packet) 3.7 gm PO BEDTIME [facility] Last Admin: 10/23/24 22:16 Dose: Not Given Rivaroxaban (Rivaroxaban 20 Mg Tablet) 20 mg PO DAILY@1700 [facility] Last Admin: 10/22/24 19:40 Dose: Not Given Simethicone (Simethicone 80 Mg Tab.Chew) 80 mg PO Q6H PRN PRN Reason: Abdominal Distention Sodium Biphosphate/Sodium Phosphate (Sodium Phosphate,[place]-Dibasic 133 Ml Enema) 118 ml [place] DAILY PRN PRN Reason: If no BM in 8 hours after use of Bisacodyl Sodium Chloride (0.9 % Sodium Chloride Flush 3 Ml Syringe) 3 ml IVFLUSH QSHIFT [facility] Last Admin: 10/24/24 10:21 Dose: 3 ml Tamsulosin HCl (Tamsulosin Hcl 0.4 Mg Capsule) 0.4 mg PO BEDTIME [facility] Last Admin: 10/23/24 22:16 Dose: Not Given Tramadol HCl (Tramadol Hcl 50 Mg Tablet) 50 mg PO Q6H PRN PRN Reason: Pain, Moderate(Pain Scale 4-6) Vancomycin HCl (Vancomycin Hcl 125 Mg Capsule) 125 mg PO Q6H [facility] Last Admin: 10/24/24 10:21 Dose: 125 mg Home Medications ?Medication ?Instructions ?Recorded ?Confirmed ?Last Taken ?Type acetaminophen 325 mg tablet 650 mg PO Q4H PRN fever/pain 02/16/21 10/22/24 Unknown History calcium 600 mg (as 1 tab PO BID 02/16/21 10/22/24 02/14/22 History carbonate)-vitamin D3 5 mcg (200 unit) tablet magnesium hydroxide 400 mg/5 mL 30 ml PO DAILY PRN No BM in 3 Days 02/16/21 10/22/24 Unknown History oral suspension (Milk of Magnesia) levetiracetam 100 mg/mL oral 2.5 ml PO BID 02/26/21 10/22/24 02/14/22 History solution atorvastatin 80 mg tablet 80 mg PO DAILY 01/26/22 10/22/24 02/14/22 History magnesium citrate 150 ml PO DAILY PRN No BM in 12 hrs 02/15/22 10/22/24 Unknown History sodium phosphates 19 gram-7 118 ml [place] DAILY PRN If no BM in 8 02/15/22 10/22/24 Unknown History gram/118 mL enema (Fleet Enema) hours after use of Bisacodyl acetaminophen 325 mg tablet 650 mg PO BEDTIME 10/03/22 10/22/24 Unknown History (Tylenol) acetic acid 0.25 % irrigation 50 ml irrigation [id number]@2100 10/03/22 10/22/24 Unknown History solution ferrous sulfate 325 mg (65 mg 325 mg PO DAILY 12/22/22 10/22/24 Unknown History iron) tablet multivitamin 1 tab PO DAILY 01/18/24 10/22/24 Unknown History psyllium 1 ea PO BEDTIME 01/18/24 10/22/24 Unknown History simethicone 80 mg chewable tablet 80 mg PO Q6H PRN Abdominal 04/19/24 10/22/24 Unknown History Distention oxycodone 5 mg tablet 5 mg PO BID 06/29/24 10/22/24 Unknown History potassium chloride 20 mEq/15 mL 40 meq PO DAILY 10/22/24 10/22/24 Unknown History oral liquid vancomycin 125 mg capsule 125 mg PO Q6H 10/22/24 10/22/24 Unknown History Physical Exam Vital Signs: Vital Signs: Last Vital Signs Temp 96.8 F 10/24/24 07:21 Pulse 86 10/24/24 07:21 Resp 14 10/24/24 07:21 BP 153/87 H 10/24/24 07:21 Pulse Ox 96 10/24/24 07:21 O2 Del Method Room Air 10/24/24 07:21 BMI result Body Mass Index 24.4 Const: General: cooperative, healthy appearing and comfortable Orientation/consciousness: oriented to person, oriented to place and oriented to time HEENT: Head: Yes normal to inspection Neck: Neck: Yes normal visual inspection Carotids: no bruits Chest: Chest palpation & inspection: normal inspection of the chest Resp: Effort & Inspection: normal respiratory effort and able to speak in complete sentences Auscultation: clear to auscultation bilaterally, no crackles, no rales, no rhonchi and no wheezes Cardio: Rate: regular rate Rhythm: regular rhythm Heart sounds: S1 normal heart sound present and S2 normal heart sound present Bruits: no carotid bruits Peripheral pulses: Peripheral pulses 2+ throughout GI: Inspection: Yes normal to inspection Skin: Other: Stage IV decubitus ulcer wound VAC intact. Wounds: no wounds Hair: normal Neuro: General: oriented to person, oriented to place and oriented to time Cranial nerves: Yes CN's II-XII intact bilaterally and Yes Normal hearing present Cognition (Neuro): normal cognition Motor exam (neuro): 5/5 motor strength present throughout Extrem: Other: venous exam: No significant superficial varicosities or spider telangiectasias, minimal edema General: No clubbing, No cyanosis and No edema Psych: Appearance: grossly normal Mental Status: mental status grossly normal Speech and movement: Normal speech and movement present Results Labs 10/24/24 06:10 10/24/24 06:10 Labs: Abnormal lab results 10/23/24 10/24/24 Range/Units 19:43 06:10 WBC 4.4 L (4.8-10.8) X10*3/uL RBC 2.62 L (4.60-5.80) X10*6/uL Hgb 8.3 L (14.0-18.0) g/dl Hct 25.7 L (42.0-52.0) % MCV 98.1 H (80.0-98.0) fL MPV 9.1 L (9.4-12.4) fL Lymph # (Auto) 1.1 L (1.2-4.9) X10*3/uL Sodium 151 H (135-145) mmol/L Potassium 3.2 L D (3.3-5.1) mmol/L Chloride 122 H (96-108) mmol/L Carbon Dioxide 20 L (22-29) mmol/L BUN 32 H (9-16) mg/dL Calcium 8.3 L (8.4-10.2) mg/dL Total Protein 6.4 L (6.5-8.0) g/dL Albumin 2.3 L (3.5-5.0) g/dL Random Vancomycin 28.5 H* 26.0 H* (15-20) mcg/mL Short CBC 10/24/24 Range/Units 06:10 WBC 4.4 L (4.8-10.8) X10*3/uL Hgb 8.3 L (14.0-18.0) g/dl Hct 25.7 L (42.0-52.0) % Plt Count 210 (160-400) X10*3/uL BMP 10/24/24 06:10 Sodium 151 H Potassium 3.2 L D Chloride 122 H Carbon Dioxide 20 L BUN 32 H Creatinine 1.25 Calcium 8.3 L Liver Function 10/24/24 Range/Units 06:10 Total Bilirubin 0.3 (0.0-1.0) mg/dL AST 24 (5-37) U/L ALT 8 (0-40) U/L Alkaline Phosphatase 84 (39-117) U/L Albumin 2.3 L (3.5-5.0) g/dL Urine 10/21/24 Range/Units 19:06 Urine Color Yellow Urine Appearance Cloudy Urine pH 7.5 (5.0-9.0) Ur Specific [place] 1.015 (1.005-1.025) Urine Protein 100 (2+) H (Neg-Trace) mg/dL Urine Glucose (UA) Negative (Negative) mg/dL All other labs normal. Assessment and Plan (1) Stage 4 pressure ulcer: Qualifiers: Pressure injury location: buttock Laterality: unspecified laterality Qualified Code(s): L89.304 - Pressure ulcer of unspecified buttock, stage 4 Status: Acute Plan In short patient has a stage IV sacral decubitus ulcer. At the current time stable with a wound VAC. Due to his overall condition would manage this as conservatively as possible. Should this continue to progress or there be any other further issues would consult General surgery. No active vascular issues at the current time. We will follow on an as-needed basis. Thank you for allowing us to assist in his care. If there are any questions or concerns please do not hesitate to contact us. Procedures Date of Service Date of Service: 10/24/24
--- NOTE | 2024-10-24 14:17 | HO.WOUND ---
Wound Consult: Initial 69 yr old male admitted to [facility] on 10/21/24 - See progress notes and H&P for detailed history. Wound consult placed for right hip and sacrum. Patient agreeable to assessment and photo documentation. patient came from facility with NWPT in place, upon assessment NPWT suctioned to 125mmhg. 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 rolled Bonny wound: ? No Induration, Fluctuance or Warmth noted, hyperpigmentation and hypopigmented scar tissue Pain: none Goals of Treatment: ? offloading, and moist wound healing. Etiology: Sacrum chronic stage 4 pressure injury Present on Admission Measurements: 2cm x 3cm x 2cm, undermining 7-5oclock Wound Bed: moist red Drainage / Odor: sanguineous drainage Edges: ? rolled Bonny wound: ? No Induration, Fluctuance or Warmth noted, hyperpigmentation and hypopigmented contracted scar tissue Pain: none Goals of Treatment: ? offloading, and moist wound healing. Recommendations: 1. Turn and Reposition every 2 hours and as needed for patient comfort. Use pillows or wedges to support off loading positions. 2. Off Load all bony prominences with use of pillows and heel boots if needed. Apply Preventative foams where needed. 3. Monitor for incontinence and moisture control, use barrier creams when needed for prevention and treatment. 4. Provide adequate and supplemental nutrition. 5. Order or Continue low air loss mattress. 6. When applicable maintain blood glucose levels per Providers order. Right hip and sacrum: Off Load Pressure with Q2 hr turns and use of pillows Cleanse and irrigate with NS, Pat dry. Apply barrier to periwound, lightly pack with Durafiber AG, be sure to leave a wick to easy removal. Cover with Foam dressing. Change every day and PRN Re-consult wound care Nurse for wound deterioration or wound changes.
[2024-10-24] MEDS: Potassium Chloride/H20 10 MEQ/100 ML PIGGYBACK 100 MEQ IV ×4 (14:53→18:39)
--- NOTE | 2024-10-24 14:55 | P.CONGS_ITS ---
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 Patient was largely unresponsive either nodding or shaking his head. He does endorse that there is some pain associated to that the wounds, unable to differentiate if this is better worse or the same. 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 Mother No problems noted. Family history: reviewed and not pertinent Surgical History Surgical History History of insertion of nephrostomy tube No pertinent past surgical history Social History Social History Household Members: None Household Members Other:: SNF Housing: Retirement Housing Other:: rehab Are you a primary adult live in caregiver to a significant other at home: No Do you presently have visiting nurse or other home services: No Unable to assess alcohol history related to: Unable to respond Alcohol intake: former Comment: patient sleeping Patient Tobacco Use Status: Tobacco use Unknown Second Hand Smoke Exposure: No Advance Directives Date on File: 02/14/20 service: No Current occupational status: disabled Meds Allergies Allergy/AdvReac Type Severity Reaction Status Date / Time No Known Allergies (No Known Allergy Verified 10/21/24 17:25 Allergies*) Active Medications: Current Medications Acetaminophen (Acetaminophen 325 Mg Tablet) 650 mg PO Q6H PRN PRN Reason: Pain, Mild 1-3,fever,headache Ascorbic Acid (Ascorbic Acid 500 Mg Tablet) 1,000 mg PO DAILY [facility] Last Admin: 10/24/24 10:21 Dose: 1,000 mg Atorvastatin Calcium (Atorvastatin Calcium 80 Mg Tablet) 80 mg PO DAILY [facility] Last Admin: 10/24/24 10:26 Dose: Not Given Calcium Carbonate (Calcium Carbonate 750 Mg Tab.Chew) 750 mg PO Q4H PRN PRN Reason: Heartburn Ferrous Sulfate (Ferrous Sulfate 324 Mg Tablet.Dr) 324 mg PO DAILY [facility] Last Admin: 10/24/24 10:21 Dose: 324 mg Gabapentin (Gabapentin 300 Mg Capsule) 300 mg PO BEDTIME [facility] Last Admin: 10/23/24 22:16 Dose: Not Given Piperacillin Sod/Tazobactam (Sod 3.375 gm/ Sodium Chloride) 50 mls @ 100 mls/hr IV Q6H [facility] Last Admin: 10/24/24 14:18 Dose: 100 mls/hr Vancomycin HCl 750 mg/ Sodium (Chloride) 265 mls @ 265 mls/hr IV Q24H [facility] Levetiracetam 250 mg/ Sodium (Chloride) 102.5 mls @ 410 mls/hr IV Q12H [facility] Last Infusion: 10/24/24 14:20 Dose: Infused Sodium Chloride (Sodium Chloride 0.45 %) 1,000 mls @ 125 mls/hr IVCONT .Q8H [facility] Last Infusion: 10/24/24 13:26 Dose: 0 mls/hr Potassium Chloride (Potassium Chloride/H20) 10 meq in 100 mls @ 100 mls/hr IV Q1H [facility] Stop: 10/24/24 17:29 Magnesium Citrate (Magnesium Citrate 300 Ml Solution) 150 ml PO DAILY PRN PRN Reason: No BM in 12 hrs Magnesium Hydroxide (Milk Of Magnesia 30 Ml Oral.Susp) 30 ml PO DAILY PRN PRN Reason: Constipation Melatonin (Melatonin 3 Mg Tablet) 6 mg PO BEDTIME PRN PRN Reason: Insomnia Multivitamins/Vitamin C (Multivitamin Tablet) 1 tab PO DAILY [facility] Last Admin: 10/24/24 10:26 Dose: Not Given Ondansetron HCl (Ondansetron Hcl 4 Mg/2 Ml Vial) 4 mg IVPUSH Q8H PRN PRN Reason: Nausea and Vomiting Oxycodone HCl (Oxycodone Hcl Immed Release 5 Mg Tablet) 5 mg PO Q6H PRN PRN Reason: Pain, Severe (Pain Scale 7-10) Pharmacy Consult (Consult Rx Vancomycin Dosing) 1 each MISCELLANE DAILY PRN PRN Reason: Consult order Psyllium Hydrophilic Mucilloid (Psyllium Seed 3.7 Gm Packet) 3.7 gm PO BEDTIME [facility] Last Admin: 10/23/24 22:16 Dose: Not Given Rivaroxaban (Rivaroxaban 20 Mg Tablet) 20 mg PO DAILY@1700 [facility] Last Admin: 10/22/24 19:40 Dose: Not Given Simethicone (Simethicone 80 Mg Tab.Chew) 80 mg PO Q6H PRN PRN Reason: Abdominal Distention Sodium Biphosphate/Sodium Phosphate (Sodium Phosphate,[place]-Dibasic 133 Ml Enema) 118 ml [place] DAILY PRN PRN Reason: If no BM in 8 hours after use of Bisacodyl Sodium Chloride (0.9 % Sodium Chloride Flush 3 Ml Syringe) 3 ml IVFLUSH QSHIFT [facility] Last Admin: 10/24/24 10:21 Dose: 3 ml Tamsulosin HCl (Tamsulosin Hcl 0.4 Mg Capsule) 0.4 mg PO BEDTIME [facility] Last Admin: 10/23/24 22:16 Dose: Not Given Tramadol HCl (Tramadol Hcl 50 Mg Tablet) 50 mg PO Q6H PRN PRN Reason: Pain, Moderate(Pain Scale 4-6) Vancomycin HCl (Vancomycin Hcl 125 Mg Capsule) 125 mg PO Q6H [facility] Last Admin: 10/24/24 14:17 Dose: 125 mg Home Medications ?Medication ?Instructions ?Recorded ?Confirmed ?Last Taken ?Type acetaminophen 325 mg tablet 650 mg PO Q4H PRN fever/pa in 02/16/21 10/22/24 Unknown History calcium 600 mg (as 1 tab PO BID 02/16/2102/14/22 History carbonate)-vitamin D3 5 mcg (200 unit) tablet magnesium hydroxide 400 mg/5 mL 30 ml PO DAILY PRN No BM in 3 Days 02/16/21 10/22/24 Unknown History oral suspension (Milk of Magnesia) levetiracetam 100 mg/mL oral 2.5 ml PO BID 02/26/2102/14/22 History solution atorvastatin 80 mg tablet 80 mg PO DAILY 01/26/2209/2402/14/22 History magnesium citrate 150 ml PO DAILY PRN No BM in 12 hrs 02/15/22 10/22/24 Unknown History sodium phosphates 19 gram-7 118 ml [place] DAILY PRN If no BM in 8 02/15/22 10/22/24 Unknown History gram/118 mL enema (Fleet Enema) hours after use of Bis acodyl acetaminophen 325 mg tablet 650 mg PO BEDTIME 10/03/22 10/22/24 Unknown History (Tylenol) acetic acid 0.25 % irrigation 50 ml irrigation TUTHSA@ 2100 10/03/22 10/22/24 Unknown History solution ferrous sulfate 325 mg (65 mg 325 mg PO DAILY 12/22/22 10/22/24 Unknown History iron) tablet multivitamin 1 tab PO DAILY 01/18/2409/24 Unknown History psyllium 1 ea PO BEDTIME 01/18/24 Unknown History simethicone 80 mg chewable tablet 80 mg PO Q6H PRN Abd ominal 04/19/24 10/22/24 Unknown History Distention oxycodone 5 mg tablet 5 mg PO BID 06/29/24 5 Unknown History potassium chloride 20 mEq/15 mL 40 meq PO DAILY 10/22/24 Unknown History oral liquid vancomycin 125 mg capsule 125 mg PO Q6H 10/22/2410/22 Unknown History Physical Exam 2 Vital Signs: Vital Signs: Last Vital Signs Temp 96.8 F 10/24/24 07:21 Pulse 86 10/24/24 07:21 Resp 14 10/24/24 07:21 BP 153/87 H 10/24/24 07:21 Pulse Ox 96 10/24/24 07:21 O2 Del Method Room Air 10/24/24 07:21 BMI result Body Mass Index 24.4 Const: Other: Minimally interactive unsure of his baseline General: no acute distress Results Labs 10/24/24 06:10 10/24/24 06:10 Labs: Abnormal lab results 10/23/24 10/24/24 Range/Units 19:43 06:10 WBC 4.4 L (4.8-10.8) X10*3/uL RBC 2.62 L (4.60-5.80) X10*6/uL Hgb 8.3 L (14.0-18.0) g/dl Hct 25.7 L (42.0-52.0) % MCV 98.1 H (80.0-98.0) fL MPV 9.1 L (9.4-12.4) fL Lymph # (Auto) 1.1 L (1.2-4.9) X10*3/uL Sodium 151 H (135-145) mmol/L Potassium 3.2 L D (3.3-5.1) mmol/L Chloride 122 H (96-108) mmol/L Carbon Dioxide 20 L (22-29) mmol/L BUN 32 H (9-16) mg/dL Calcium 8.3 L (8.4-10.2) mg/dL Total Protein 6.4 L (6.5-8.0) g/dL Albumin 2.3 L (3.5-5.0) g/dL Random Vancomycin 28.5 H* 26.0 H* (15-20) mcg/mL Short CBC 10/24/24 Range/Units 06:10 WBC 4.4 L (4.8-10.8) X10*3/uL Hgb 8.3 L (14.0-18.0) g/dl Hct 25.7 L (42.0-52.0) % Plt Count 210 (160-400) X10*3/uL BMP 10/24/24 06:10 Sodium 151 H Potassium 3.2 L D Chloride 122 H Carbon Dioxide 20 L BUN 32 H Creatinine 1.25 Calcium 8.3 L Liver Function 10/24/24 Range/Units 06:10 Total Bilirubin 0.3 (0.0-1.0) mg/dL AST 24 (5-37) U/L ALT 8 (0-40) U/L Alkaline Phosphatase 84 (39-117) U/L Albumin 2.3 L (3.5-5.0) g/dL Urine 10/21/24 Range/Units 19:06 Urine Color Yellow Urine Appearance Cloudy Urine pH 7.5 (5.0-9.0) Ur Specific [place] 1.015 (1.005-1.025) Urine Protein 100 (2+) H (Neg-Trace) mg/dL Urine Glucose (UA) Negative (Negative) mg/dL All other labs normal. Assessment and Plan (1) Stage 4 pressure ulcer: Qualifiers: Laterality: unspecified laterality Pressure injury location: buttock Q ualified Code(s): L89.304 - Pressure ulcer of unspecified buttock, stage 4 Status: Acute Plan 69-year-old male with a past medical history significant for history CVA with right-sided deficits, chronic UTIs, suprapubic tube, nephrostomy tube, wound VAC right hip, paroxysmal AFib on Xarelto, seizure disorder, history of C diff (currently receiving treatment), hypertension, who presented to the ED due to a change in his urine output and suprapubic tube leaking. Seen on consult for sacral wounds. Had a wound vac in place, wound care nurse evaluated thsi patient earlier today, removed vac, now using durafiber. The patient was minimally responsive during this interaction, a burr picker was used but patient continued to use head gestures to communicate. When i asked to evaluate the wounds, he did not want to be moved. We agreed that I could evaluate tomorrow with wound care nurse. daily dressing changes per wound care Procedures Date of Service Date of Service: 10/24/24
[2024-10-24 16:00] VITALS: BP 150/84; PULSE 102; RESP 18; TEMP 36.6; O2SAT 98
[2024-10-24 20:00] VITALS: BP 167/80; PULSE 82; RESP 18; TEMP 36.2; O2SAT 99
[2024-10-24 20:10] LABS: Anion Gap 10 (12-20); Blood Urea Nitrogen 26 mg/dL (9-16); Calcium 8.1 mg/dL (8.4-10.2); Carbon Dioxide 19 mmol/L (22-29); Chloride 122 mmol/L (96-108); Creatinine Clr Calc Pharmacy 55.8; Estimated Glomerular Filt Rate 56; Potassium 3.2 mmol/L (3.3-5.1); Sodium 148 mmol/L (135-145)
[2024-10-25] MEDS: 0.9 % Sodium Chloride Flush 3 ML SYRINGE IVFLUSH ×3 (00:52→19:57)
[2024-10-25 03:06] VITALS: BP 162/80; PULSE 72; RESP 14; TEMP 36.1; O2SAT 99
[2024-10-25 06:00] VITALS: BP 151/70; PULSE 73; RESP 14; TEMP 36.1; O2SAT 98
[2024-10-25] MEDS: Ferrous Sulfate 324 MG TABLET.DR PO (08:04)
--- NOTE | 2024-10-25 08:09 | P.PNIM_ITS ---
Subjective Subjective Date of Service: 10/25/24 Interval History: Wound vac removed yesterday Pt clinically improving, and workup thus far for inf etiology -ve, and per ID guidance, we will DC all abx and observe Pt only nodding occasionally - refusing to let me move him to see the ulcer or move his arm to examine the area The bedside RN was present for the entire encounter Review of Systems Review of Systems: Yes Unobtainable due to mental condition and Unobtainable due to mental status ENT Ears, Nose, Mouth, and Throat: Reports Normal hearing present Neurologic Neurologic: Reports Normal hearing present Physical Exam 2 Exam: Exam: General: Awake and alert, primarily nonverbal, not following commands. In no acute distress. Resting comfortably in bed Resp: difficult to auscultate as he is nto willing to let me auscultate him CVS: S1, S2 WNL GI: +BS, NT, no distention Skin: Warm, dry. Wound is with foam dressing : Suprapubic catheter in place. Insertion site without erythema or discharge. Psych: Non verbal, not in acute distress Vital Signs: Vital Signs: Last Vital Signs Temp 97.0 F 10/25/24 06:00 Pulse 73 10/25/24 06:00 Resp 14 10/25/24 06:00 BP 151/70 H 10/25/24 06:00 Pulse Ox 98 10/25/24 06:00 O2 Del Method Room Air 10/25/24 06:00 BMI result Body Mass Index 24.4 Const: General: cooperative, healthy appearing and comfortable O rientation/consciousness: oriented to person, oriented to place and oriented to time HEENT: Head: Yes normal to inspection Neck: Neck: Yes normal visual inspection Carotids: no bruits Chest: Chest palpation & inspection: normal inspection of the chest Resp: Effort & Inspection: normal respiratory effort and able to speak in complete sentences Auscultation: clear to auscultation bilaterally, no crackles, no rales, no rhonchi and no wheezes Cardio: Rate: regular rate Rhythm: regular rhythm Heart sounds: S1 normal heart sound present and S2 normal heart sound present Bruits: no carotid bruits Peripheral pulses: Peripheral pulses 2+ throughout GI: Inspection: Yes normal to inspection Skin: Other: Stage IV decubitus ulcer wound VAC intact. Wounds: no wounds Hair: normal Neuro: General: oriented to person, oriented to place and oriented to time Cranial nerves: Yes CN's II-XII intact bilaterally and Yes Normal hearing present Cognition (Neuro): normal cognition Motor exam (neuro): 5/5 motor strength present throughout Extrem: Other: venous exam: No significant superficial varicosities or spider telangiectasias, minimal edema General: No clubbing, No cyanosis and No edema Psych: Appearance: grossly normal Mental Status: mental status grossly normal Speech and movement: Normal speech and movement present Objective Data Active Medications Acetaminophen (Acetaminophen 325 Mg Tablet) 650 mg PO Q6H PRN PRN Reason: Pain, Mild 1-3,fever,headache Last Admin: 10/24/24 17:08 Dose: 650 mg Documented By: SHANTI Ascorbic Acid (Ascorbic Acid 500 Mg Tablet) 1,000 mg PO DAILY [facility] Last Admin: 10/24/24 10:21 Dose: 1,000 mg Documented By: SHANTI Atorvastatin Calcium (Atorvastatin Calcium 80 Mg Tablet) 80 mg PO DAILY [facility] Last Admin: 10/24/24 10:26 Dose: Not Given Documented By: SHANTI Non-Admin Reason: Patient Refused Calcium Carbonate (Calcium Carbonate 750 Mg Tab.Chew) 750 mg PO Q4H PRN PRN Reason: Heartburn Ferrous Sulfate (Ferrous Sulfate 324 Mg Tablet.Dr) 324 mg PO DAILY [facility] Last Admin: 10/24/24 10:21 Dose: 324 mg Documented By: SHANTI Gabapentin (Gabapentin 300 Mg Capsule) 300 mg PO BEDTIME [facility] Last Admin: 10/24/24 19:54 Dose: 300 mg Documented By: KATHY Piperacillin Sod/Tazobactam (Sod 3.375 gm/ Sodium Chloride) 50 mls @ 100 mls/hr IV Q6H [facility] Last Infusion: 10/25/24 06:21 Dose: Infused Documented By: KATHY Vancomycin HCl 750 mg/ Sodium (Chloride) 265 mls @ 265 mls/hr IV Q24H [facility] Levetiracetam 250 mg/ Sodium (Chloride) 102.5 mls @ 410 mls/hr IV Q12H [facility] Last Infusion: 10/25/24 00:48 Dose: Infused Documented By: KATHY Sodium Chloride (Sodium Chloride 0.45 %) 1,000 mls @ 125 mls/hr IVCONT .Q8H [facility] Last Admin: 10/25/24 00:49 Dose: 125 mls/hr Documented By: KATHY Magnesium Citrate (Magnesium Citrate 300 Ml Solution) 150 ml PO DAILY PRN PRN Reason: No BM in 12 hrs Magnesium Hydroxide (Milk Of Magnesia 30 Ml Oral.Susp) 30 ml PO DAILY PRN PRN Reason: Constipation Melatonin (Melatonin 3 Mg Tablet) 6 mg PO BEDTIME PRN PRN Reason: Insomnia Multivitamins/Vitamin C (Multivitamin Tablet) 1 tab PO DAILY [facility] Last Admin: 10/24/24 10:26 Dose: Not Given Documented By: SHANTI Non-Admin Reason: Patient Refused Ondansetron HCl (Ondansetron Hcl 4 Mg/2 Ml Vial) 4 mg IVPUSH Q8H PRN PRN Reason: Nausea and Vomiting Oxycodone HCl (Oxycodone Hcl Immed Release 5 Mg Tablet) 5 mg PO Q6H PRN PRN Reason: Pain, Severe (Pain Scale 7-10) Pharmacy Consult (Consult Rx Vancomycin Dosing) 1 each MISCELLANE DAILY PRN PRN Reason: Consult order Psyllium Hydrophilic Mucilloid (Psyllium Seed 3.7 Gm Packet) 3.7 gm PO BEDTIME [facility] Last Admin: 10/24/24 20:01 Dose: Not Given Documented By: KATHY Non-Admin Reason: Patient Refused Rivaroxaban (Rivaroxaban 20 Mg Tablet) 20 mg PO DAILY@1700 [facility] Last Admin: 10/24/24 17:09 Dose: 20 mg Documented By: SHANTI Simethicone (Simethicone 80 Mg Tab.Chew) 80 mg PO Q6H PRN PRN Reason: Abdominal Distention Sodium Biphosphate/Sodium Phosphate (Sodium Phosphate,[place]-Dibasic 133 Ml Enema) 118 ml [place] DAILY PRN PRN Reason: If no BM in 8 hours after use of Bisacodyl Sodium Chloride (0.9 % Sodium Chloride Flush 3 Ml Syringe) 3 ml IVFLUSH QSHIFT [facility] Last Admin: 10/25/24 00:52 Dose: 3 ml Documented By: AKTHY Tamsulosin HCl (Tamsulosin Hcl 0.4 Mg Capsule) 0.4 mg PO BEDTIME [facility] Last Admin: 10/24/24 19:54 Dose: 0.4 mg Documented By: KATHY Tramadol HCl (Tramadol Hcl 50 Mg Tablet) 50 mg PO Q6H PRN PRN Reason: Pain, Moderate(Pain Scale 4-6) Vancomycin HCl (Vancomycin Hcl 125 Mg Capsule) 125 mg PO Q6H [facility] Last Admin: 10/25/24 02:33 Dose: 125 mg Documented By: KATHY Labs 10/25/24 08:32 10/25/24 08:32 Labs: Laboratory Results - last 24 hr 10/24/24 19:39 Hold Purple Top SEE NOTE Anion Gap 10 L Estim Creat Clear Calc 55.8 Estimated GFR 56 Random Glucose 156 H Calcium 8.1 L Hold Red Top See Note Assessment and Plan (1) Ureteritis: Status: Acute Plan Patient is a nonverbal at baseline 69-year-old male with a past medical history significant for history CVA with right-sided deficits, chronic UTIs, suprapubic tube, nephrostomy tube, wound VAC right hip, paroxysmal AFib on Xarelto, seizure disorder, history of C diff (currently receiving treatment), hypertension, who presented to the ED due to a change in his urine output and suprapubic tube leak. 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 Wound vac removed on 10/24/24 and has a foam dressing. He now is back to his baseline mental status. We will start DC planning as he needs regular wound care. Inconclusive UA with ureteritis and hydroureter Obstructive uropathy with chronic suprapubic catheter History of recurrent complicated UTIs Paralytic ileus small intestine and colon History of chronic hematuria followed in clinic by Nephrology Patient is baseline nonverbal and hence most of the history is through the chart review Patient appeared to have chronic suprapubic catheter that change in his urine output and suprapubic tube leak and sepsis workup was initiated which did not show overt signs of severe sepsis. Imaging - Probable transient obstruction urinary flow with suprapubic cath leakage causing sepsis, showing likely cystitis, hydroureter suggestive of ureteritis Urine and blood cultures negative so far - hence BSA stopped on 10/25/24 Surgery consulted - will reexamine his sacral decubitus ulcer. Per vascular surgery no indication for any acute management Per urology-no acute surgical management Per ID-would not need IV long-term antibiotics for sacral osteomyelitis unless plastic surgery has plans to his skin graft the area - all abx stopped on 10/25/24 Continue vancomycin oral q.i.d. for 10 days and then p.o. 125 mg every Wednesday and Wednesday for C diff colonization Surgery to be consulted if ileus becomes a concern which had happened before suprapubic tube changed in ED during this admission 10/21/2024 Will start DC planning back to his NH once Surgery and wound care can assist in SDU mx Worsening hypernatremia- resolved Hypokalemia - being replaced daily Likely in the setting of hypovolemic hyponatremia given fluid losses We will replete potassium IV given poor oral tolerance Stage IV pressure ulcers with ?Osteomyelitis - no indication of BSA per ID Wheelchair-bound at baseline - hence the SDU - CT showing ulceration of right ischium with osseous destruction possibly indicative of osteomyelitis - similar findings from CT on 06/29 - wound care consult - pt being covered with vanc and Zosyn as above Constipation - CT POA suggestive of fecal impaction likely given chronic sedentary comorbidities - being rx with bowel meds Chronic anemia -likely secondary to ACD - we will transfuse if less than 7 - daily monitor CBC Paroxysmal AFib - Xarelto resumed since no urological intervention planned -continue to monitor on telemetry and monitor electrolytes and replete to goal Patient has chronic hematuria being followed by Nephrology outpatient hence we will defer for outpatient Nephrology for further medical management Seizure disorder - continue gabapentin and Keppra History C diff - Continue Vancomycin oral now qid for 10 days (last day 11/01/24) and then po 125 mg every ,,Wednesday. Hypertension -Pt appears to be HTNsive - will start Losartan 25mg po od Full code VTE prophylaxis: Xarelto Quality Stroke Does the patient have a stroke diagnosis?: No VTE Prior VTE?: No VTE Risk Level:: Medical - moderate - high VTE Device Contraindication: Treatment Not Indicated VTE Drug Contraindication: N/A - Med Ordered
[2024-10-25 08:47] LABS: MANUAL DIFF FLAG NO
[2024-10-25 08:50] LABS: Hematocrit 27.3 % (42.0-52.0); Hemoglobin 8.6 g/dl (14.0-18.0); Imm Gran Abs Auto 0.01 X10*3/uL (0.00-0.03); Imm Gran Pct Auto 0.3 % (0.0-0.4); Lymphocytes Absolute Auto 1.1 X10*3/uL (1.2-4.9); Mean Corpuscular HGB Conc 31.5 g/dl (31.0-36.0); Mean Corpuscular Hemoglobin 31.3 pg (27.0-33.0); Mean Corpuscular Volume 99.3 fL (80.0-98.0); NRBC Abs Auto 0.000 X10*3/uL (0.0-0.012); NRBC Pct Auto 0.0 /100WBC (0.0-0.2); Platelet Count 199 X10*3/uL (160-400); Red Blood Count 2.75 X10*6/uL (4.60-5.80); White Blood Count 3.9 X10*3/uL (4.8-10.8)
[2024-10-25 09:05] LABS: Alanine Aminotransferase 9 U/L (0-40); Albumin Level 2.4 g/dL (3.5-5.0); Alkaline Phosphatase 83 U/L (39-117); Anion Gap 9 (12-20); Aspartate Amino Transferase 19 U/L (5-37); Blood Urea Nitrogen 22 mg/dL (9-16); Calcium 8.0 mg/dL (8.4-10.2); Carbon Dioxide 21 mmol/L (22-29); Chloride 119 mmol/L (96-108); Creatinine Clr Calc Pharmacy 60.6; Estimated Glomerular Filt Rate > 60; Potassium 3.0 mmol/L (3.3-5.1); Sodium 146 mmol/L (135-145); Total Protein 6.3 g/dL (6.5-8.0)
--- NOTE | 2024-10-25 09:20 | HE.PHANOTE ---
RE VANCO DOSING LEVEL TODAY IS 16.7. WILL GIVE 1 TIME DOSE OF 500 MG TO MAINTAIN THERAPEUTIC LEVELS AND RECHECK TOMORROW TO ENSURE SAFETY AND EFFICACY. CONTINUE DAILY RENAL MONITORING WELL BUT RENAL FUNCTION TODAY IS STILL STABLE WITH CRCL 60.6.
--- NOTE | 2024-10-25 09:53 | MHC.CLN ---
F/U DIET=PUREE WITH HONEY THICK LIQUIDS. MAGIC CUP TID TO PROMOTE WOUND HEALING. PROVIDES 870 KCALS, 27 G PROTEIN. INCREASED NUTRITION NEEDS DUE TO PRESSURE INJURIES. SEEN BY WOUND RN. STAGE 4 PRESSURE INJURIES RIGHT HIP AND SACRUM. PO INTAKE 25-50%. FOLLOW FOR PO INTAKE AND SKIN INTEGRITY.
[2024-10-25] MEDS: Potassium Chloride/H20 10 MEQ/100 ML PIGGYBACK 100 MEQ IV ×4 (10:25→13:56)
--- NOTE | 2024-10-25 11:28 | PC.NURSE ---
Patient off unit for procedure.
[2024-10-25 15:41] VITALS: BP 160/72; PULSE 87; RESP 18; TEMP 36.6; O2SAT 98
--- NOTE | 2024-10-25 16:13 | MHC.CM.PN ---
Per MD rounds Blood culture results are pending. If cultures negative dc home with PO ABX. DP return to [facility] via BLS once medically cleared.
--- NOTE | 2024-10-25 16:23 | PC.NURSE ---
It is challenging to give patient PO medications. Sometimes he will take a pill whole mixed in applesauce or pudding with no issue and other times he will attempt to spit out pills. When pills are crushed patient will tend to only take 1 bite and then refuse any other oral intake. Other times patient will refuse PO intake of any kind and just shake head no , mumble and move head away from nurse. Multiple attempts are made to give patient PO medication.
[2024-10-25 19:39] VITALS: BP 160/84; PULSE 79; RESP 16; TEMP 36.4; O2SAT 94
--- NOTE | 2024-10-25 21:47 | MHC.PIE ---
p; able to get pt to take some meds but only if crushed in apple sauce and only if given on first bite, pt will not take any more meds meds. farshad ordered after bedtime med already given, now pt refusing medication i; dr das notified e; will cont to monitor
[2024-10-26 03:05] VITALS: BP 170/82; PULSE 73; RESP 16; TEMP 36.1; O2SAT 98
[2024-10-26 06:38] LABS: MANUAL DIFF FLAG NO
[2024-10-26 06:45] LABS: Hematocrit 23.9 % (42.0-52.0); Hemoglobin 7.9 g/dl (14.0-18.0); Imm Gran Abs Auto 0.02 X10*3/uL (0.00-0.03); Imm Gran Pct Auto 0.5 % (0.0-0.4); Lymphocytes Absolute Auto 1.2 X10*3/uL (1.2-4.9); Mean Corpuscular HGB Conc 33.1 g/dl (31.0-36.0); Mean Corpuscular Hemoglobin 31.5 pg (27.0-33.0); Mean Corpuscular Volume 95.2 fL (80.0-98.0); NRBC Abs Auto 0.000 X10*3/uL (0.0-0.012); NRBC Pct Auto 0.0 /100WBC (0.0-0.2); Platelet Count 162 X10*3/uL (160-400); Red Blood Count 2.51 X10*6/uL (4.60-5.80); White Blood Count 3.7 X10*3/uL (4.8-10.8)
[2024-10-26 07:04] VITALS: BP 146/66; PULSE 66; RESP 17; TEMP 36.1; O2SAT 99
[2024-10-26 07:27] LABS: Alanine Aminotransferase 6 U/L (0-40); Albumin Level 2.3 g/dL (3.5-5.0); Alkaline Phosphatase 80 U/L (39-117); Anion Gap 8 (12-20); Aspartate Amino Transferase 29 U/L (5-37); Blood Urea Nitrogen 16 mg/dL (9-16); Calcium 7.5 mg/dL (8.4-10.2); Carbon Dioxide 19 mmol/L (22-29); Chloride 116 mmol/L (96-108); Creatinine Clr Calc Pharmacy 68.2; Estimated Glomerular Filt Rate > 60; Potassium 2.6 mmol/L (3.3-5.1); Sodium 140 mmol/L (135-145); Total Protein 6.0 g/dL (6.5-8.0)
--- NOTE | 2024-10-26 07:47 | HE.PHANOTE ---
RE: VANCO Trough returned @ 16.2. Renal function continues to improve. Increased dose to 750 mg q24h with a predicted AUC 572 and trough of 18.9. Will reevaluate trough tomorrow 10/27/24 @0600 to ensure safety and efficacy.
[2024-10-26] MEDS: Ferrous Sulfate 324 MG TABLET.DR PO (08:02)
[2024-10-26] MEDS: Potassium Chloride/H20 10 MEQ/100 ML PIGGYBACK 100 MEQ IV ×4 (08:15→11:41)
--- NOTE | 2024-10-26 08:28 | P.PNIM_ITS ---
Subjective Subjective Date of Service: 10/26/24 Physical Exam 2 Vital Signs: Vital Signs: Last Vital Signs Temp 96.9 F 10/26/24 07:04 Pulse 66 10/26/24 07:04 Resp 17 10/26/24 07:04 BP 146/66 H 10/26/24 07:04 Pulse Ox 99 10/26/24 07:04 O2 Del Method Room Air 10/26/24 07:04 BMI result Body Mass Index 24.4 Objective Data Active Medications Acetaminophen (Acetaminophen 325 Mg Tablet) 650 mg PO Q6H PRN PRN Reason: Pain, Mild 1-3,fever,headache Last Admin: 10/24/24 17:08 Dose: 650 mg Documented By: SHANTI Ascorbic Acid (Ascorbic Acid 500 Mg Tablet) 1,000 mg PO DAILY [facility] Last Admin: 10/26/24 08:02 Dose: 1,000 mg Documented By: MOSES Atorvastatin Calcium (Atorvastatin Calcium 80 Mg Tablet) 80 mg PO DAILY [facility] Last Admin: 10/26/24 08:02 Dose: 80 mg Documented By: MOSES Calcium Carbonate (Calcium Carbonate 750 Mg Tab.Chew) 750 mg PO Q4H PRN PRN Reason: Heartburn Ferrous Sulfate (Ferrous Sulfate 324 Mg Tablet.Dr) 324 mg PO DAILY [facility] Last Admin: 10/26/24 08:02 Dose: 324 mg Documented By: MOSES Gabapentin (Gabapentin 300 Mg Capsule) 300 mg PO BEDTIME [facility] Last Admin: 10/25/24 19:58 Dose: 300 mg Documented By: IMELDA Levetiracetam 250 mg/ Sodium (Chloride) 102.5 mls @ 410 mls/hr IV Q12H [facility] Last Infusion: 10/25/24 23:43 Dose: Infused Documented By: IMELDA Sodium Chloride (Sodium Chloride 0.45 %) 1,000 mls @ 125 mls/hr IVCONT .Q8H [facility] Last Admin: 10/26/24 05:42 Dose: 125 mls/hr Documented By: IMELDA Vancomycin HCl 750 mg/ Sodium (Chloride) 265 mls @ 265 mls/hr IV Q24H [facility] Last Admin: 10/26/24 07:57 Dose: 265 mls/hr Documented By: MOSES Potassium Chloride (Potassium Chloride/H20) 10 meq in 100 mls @ 100 mls/hr IV Q1H [facility] Stop: 10/26/24 15:44 Last Admin: 10/26/24 08:15 Dose: 100 mls/hr Documented By: MOSES Losartan Potassium (Losartan Potassium 25 Mg Tablet) 25 mg PO DAILY [facility]; Protocol Last Admin: 10/26/24 08:01 Dose: 25 mg Documented By: MOSES Magnesium Citrate (Magnesium Citrate 300 Ml Solution) 150 ml PO DAILY PRN PRN Reason: No BM in 12 hrs Magnesium Hydroxide (Milk Of Magnesia 30 Ml Oral.Susp) 30 ml PO DAILY PRN PRN Reason: Constipation Melatonin (Melatonin 3 Mg Tablet) 6 mg PO BEDTIME PRN PRN Reason: Insomnia Multivitamins/Vitamin C (Multivitamin Tablet) 1 tab PO DAILY [facility] Last Admin: 10/26/24 08:02 Dose: 1 tab Documented By: MOSES Ondansetron HCl (Ondansetron Hcl 4 Mg/2 Ml Vial) 4 mg IVPUSH Q8H PRN PRN Reason: Nausea and Vomiting Oxycodone HCl (Oxycodone Hcl Immed Release 5 Mg Tablet) 5 mg PO Q6H PRN PRN Reason: Pain, Severe (Pain Scale 7-10) Pharmacy Consult (Consult Rx Vancomycin Dosing) 1 each MISCELLANE DAILY PRN PRN Reason: Consult order Psyllium Hydrophilic Mucilloid (Psyllium Seed 3.7 Gm Packet) 3.7 gm PO BEDTIME [facility] Last Admin: 10/25/24 19:58 Dose: Not Given Documented By: IMELDA Non-Admin Reason: Patient Refused Rivaroxaban (Rivaroxaban 20 Mg Tablet) 20 mg PO DAILY@1700 [facility] Last Admin: 10/25/24 18:23 Dose: Not Given Documented By: SHANTI Non-Admin Reason: Patient Refused Comments: multiple attempts made to administer medication Simethicone (Simethicone 80 Mg Tab.Chew) 80 mg PO Q6H PRN PRN Reason: Abdominal Distention Sodium Biphosphate/Sodium Phosphate (Sodium Phosphate,[place]-Dibasic 133 Ml Enema) 118 ml [place] DAILY PRN PRN Reason: If no BM in 8 hours after use of Bisacodyl Sodium Chloride (0.9 % Sodium Chloride Flush 3 Ml Syringe) 3 ml IVFLUSH QSHIFT [facility] Last Admin: 10/26/24 07:37 Dose: Not Given Documented By: MOSES Non-Admin Reason: IV Running Tamsulosin HCl (Tamsulosin Hcl 0.4 Mg Capsule) 0.4 mg PO BEDTIME [facility] Last Admin: 10/25/24 19:58 Dose: 0.4 mg Documented By: IMELDA Tramadol HCl (Tramadol Hcl 50 Mg Tablet) 50 mg PO Q6H PRN PRN Reason: Pain, Moderate(Pain Scale 4-6) Vancomycin HCl (Vancomycin Hcl 125 Mg Capsule) 125 mg PO Q6H [facility] Stop: 11/01/24 19:59 Last Admin: 10/26/24 08:02 Dose: 125 mg Documented By: MOSES Labs 10/26/24 06:33 10/26/24 06:33 Labs: Laboratory Results - last 24 hr 10/25/24 10/26/24 08:32 06:33 MCV 99.3 H 95.2 MCH 31.3 31.5 MCHC 31.5 33.1 RDW 13.7 13.5 Plt Count 199 162 MPV 8.7 L 8.6 L Immature Gran % (Auto) 0.3 0.5 H Neut % (Auto) 56.5 51.1 Lymph % (Auto) 28.7 33.0 [place] % (Auto) 9.6 10.0 Eos % (Auto) 4.4 H 4.9 H Baso % (Auto) 0.5 0.5 Lymph # (Auto) 1.1 L 1.2 [place] # (Auto) 0.4 0.4 Eos # (Auto) 0.2 0.2 Baso # (Auto) 0.0 0.0 Abs Immat Gran (auto) 0.01 0.02 Absolute Neuts (auto) 2.2 1.9 L Absolute Nucleated RBC 0.000 0.000 Nucleated RBC % (auto) 0.0 0.0 Anion Gap 9 L 8 L Estim Creat Clear Calc 60.6 68.2 Estimated GFR > 60 > 60 Random Glucose 109 96 Calcium 8.0 L 7.5 L D Total Bilirubin 0.3 0.3 AST 19 29 ALT 9 6 Alkaline Phosphatase 83 80 Total Protein 6.3 L 6.0 L Albumin 2.4 L 2.3 L Random Vancomycin 16.7 16.2 Quality Stroke Does the patient have a stroke diagnosis?: No VTE Prior VTE?: No VTE Risk Level:: Medical - moderate - high VTE Device Contraindication: Treatment Not Indicated VTE Drug Contraindication: N/A - Med Ordered
--- NOTE | 2024-10-26 10:14 | PM.PNGS ---
Subjective Subjective Date of Service: 10/26/24 Interval history: patient largely nonverbal Physical Exam Vital Signs: Vital Signs: Last Vital Signs Temp 96.9 F 10/26/24 07:04 Pulse 66 10/26/24 07:04 Resp 17 10/26/24 07:04 BP 146/66 H 10/26/24 07:04 Pulse Ox 99 10/26/24 07:04 O2 Del Method Room Air 10/26/24 07:04 BMI result Body Mass Index 24.4 Const: General: no acute distress and awake Skin: Other: ischial wound: 4x3 with 4 cm of tracking superiorsly. Able to palpate exposed bone in tracking. Healthy wound bed with mild slough. scant blood sacral wound 2x2 cm mild slough, no tracking or exposed bone. periwound skin looks improved. Objective Data Active Medications Acetaminophen (Acetaminophen 325 Mg Tablet) 650 mg PO Q6H PRN PRN Reason: Pain, Mild 1-3,fever,headache Last Admin: 10/24/24 17:08 Dose: 650 mg Documented By: SHANTI Ascorbic Acid (Ascorbic Acid 500 Mg Tablet) 1,000 mg PO DAILY [facility] Last Admin: 10/26/24 08:02 Dose: 1,000 mg Documented By: MOSES Atorvastatin Calcium (Atorvastatin Calcium 80 Mg Tablet) 80 mg PO DAILY [facility] Last Admin: 10/26/24 08:02 Dose: 80 mg Documented By: MOSES Calcium Carbonate (Calcium Carbonate 750 Mg Tab.Chew) 750 mg PO Q4H PRN PRN Reason: Heartburn Ferrous Sulfate (Ferrous Sulfate 324 Mg Tablet.) 324 mg PO DAILY [facility] Last Admin: 10/26/24 08:02 Dose: 324 mg Documented By: MOSES Gabapentin (Gabapentin 300 Mg Capsule) 300 mg PO BEDTIME [facility] Last Admin: 10/25/24 19:58 Dose: 300 mg Documented By: IMELDA Levetiracetam 250 mg/ Sodium (Chloride) 102.5 mls @ 410 mls/hr IV Q12H [facility] Last Infusion: 10/25/24 23:43 Dose: Infused Documented By: IMELDA Vancomycin HCl 750 mg/ Sodium (Chloride) 265 mls @ 265 mls/hr IV Q24H [facility] Last Admin: 10/26/24 07:57 Dose: 265 mls/hr Documented By: MSOES Potassium Chloride (Potassium Chloride/H20) 10 meq in 100 mls @ 100 mls/hr IV Q1H [facility] Stop: 10/26/24 15:44 Last Admin: 10/26/24 09:14 Dose: 100 mls/hr Documented By: MOSES Losartan Potassium (Losartan Potassium 25 Mg Tablet) 25 mg PO DAILY [facility]; Protocol Last Admin: 10/26/24 08:01 Dose: 25 mg Documented By: MOSES Magnesium Citrate (Magnesium Citrate 300 Ml Solution) 150 ml PO DAILY PRN PRN Reason: No BM in 12 hrs Magnesium Hydroxide (Milk Of Magnesia 30 Ml Oral.Susp) 30 ml PO DAILY PRN PRN Reason: Constipation Melatonin (Melatonin 3 Mg Tablet) 6 mg PO BEDTIME PRN PRN Reason: Insomnia Multivitamins/Vitamin C (Multivitamin Tablet) 1 tab PO DAILY [facility] Last Admin: 10/26/24 08:02 Dose: 1 tab Documented By: MOSES Ondansetron HCl (Ondansetron Hcl 4 Mg/2 Ml Vial) 4 mg IVPUSH Q8H PRN PRN Reason: Nausea and Vomiting Oxycodone HCl (Oxycodone Hcl Immed Release 5 Mg Tablet) 5 mg PO Q6H PRN PRN Reason: Pain, Severe (Pain Scale 7-10) Pharmacy Consult (Consult Rx Vancomycin Dosing) 1 each MISCELLANE DAILY PRN PRN Reason: Consult order Psyllium Hydrophilic Mucilloid (Psyllium Seed 3.7 Gm Packet) 3.7 gm PO BEDTIME [facility] Last Admin: 10/25/24 19:58 Dose: Not Given Documented By: IMELDA Non-Admin Reason: Patient Refused Rivaroxaban (Rivaroxaban 20 Mg Tablet) 20 mg PO DAILY@1700 [facility] Last Admin: 10/25/24 18:23 Dose: Not Given Documented By: SHANTI Non-Admin Reason: Patient Refused Comments: multiple attempts made to administer medication Simethicone (Simethicone 80 Mg Tab.Chew) 80 mg PO Q6H PRN PRN Reason: Abdominal Distention Sodium Biphosphate/Sodium Phosphate (Sodium Phosphate,[place]-Dibasic 133 Ml Enema) 118 ml [place] DAILY PRN PRN Reason: If no BM in 8 hours after use of Bisacodyl Sodium Chloride (0.9 % Sodium Chloride Flush 3 Ml Syringe) 3 ml IVFLUSH QSHIFT [facility] Last Admin: 10/26/24 07:37 Dose: Not Given Documented By: MOSES Non-Admin Reason: IV Running Tamsulosin HCl (Tamsulosin Hcl 0.4 Mg Capsule) 0.4 mg PO BEDTIME [facility] Last Admin: 10/25/24 19:58 Dose: 0.4 mg Documented By: IMELDA Tramadol HCl (Tramadol Hcl 50 Mg Tablet) 50 mg PO Q6H PRN PRN Reason: Pain, Moderate(Pain Scale 4-6) Vancomycin HCl (Vancomycin Hcl 125 Mg Capsule) 125 mg PO Q6H [facility] Stop: 11/01/24 19:59 Last Admin: 10/26/24 08:02 Dose: 125 mg Documented By: MOSES Labs 10/26/24 06:33 10/26/24 06:33 Labs: Laboratory Results - last 24 hr 10/26/24 06:33 MCV 95.2 MCH 31.5 MCHC 33.1 RDW 13.5 Plt Count 162 MPV 8.6 L Immature Gran % (Auto) 0.5 H Neut % (Auto) 51.1 Lymph % (Auto) 33.0 [place] % (Auto) 10.0 Eos % (Auto) 4.9 H Baso % (Auto) 0.5 Lymph # (Auto) 1.2 [place] # (Auto) 0.4 Eos # (Auto) 0.2 Baso # (Auto) 0.0 Abs Immat Gran (auto) 0.02 Absolute Neuts (auto) 1.9 L Absolute Nucleated RBC 0.000 Nucleated RBC % (auto) 0.0 Anion Gap 8 L Estim Creat Clear Calc 68.2 Estimated GFR > 60 Random Glucose 96 Calcium 7.5 L D Total Bilirubin 0.3 AST 29 ALT 6 Alkaline Phosphatase 80 Total Protein 6.0 L Albumin 2.3 L Random Vancomycin 16.2 Procedures Date of Service Date of Service: 10/26/24 Progress Note: A&P Assessment and plan (1) Stage 4 pressure ulcer: Status: Acute Plan 69 year old male being followed by surgery for pressure wounds of the ischium and sacrum. Wounds actually appear healthy as described above. Medicine planning for discharge. Patient intially had a wound vac from his facility, but is different product from our in house vac, thus would not be a candidate while inpatient because this would need to be removed prir to DC. Discussed case with wound care who is recommending continuing wound care while inpateint, durafiber packing every other day. He is likely a good candidate for resuming vac once he is tranferred to nursing facility. From a surgical standpoint he can be discharged when hospitalists deem appropriate. Time Spent With Patient Time: Total time managing care of this patient today ____ minutes. Quality Stroke Does the patient have a stroke diagnosis?: No VTE Prior VTE?: No VTE Risk Level:: Medical - moderate - high VTE Device Contraindication: Treatment Not Indicated VTE Drug Contraindication: N/A - Med Ordered
[2024-10-26] MEDS: Potassium Chloride Packet 20 MEQ PACKET 40 MEQ PO (11:41)
--- NOTE | 2024-10-26 12:17 | MHC.CM.PN ---
IMM 10/26/24 Patient is discharged today. He will return to [facility] for LTC. 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 Booking ID received from [facility] for transportation.
--- NOTE | 2024-10-26 12:41 | HO.WOUND ---
Wound Consult: Follow up 69 yr old male admitted to [facility] on 10/21/24 - See progress notes and H&P for detailed history. Wound consult placed for right hip and sacrum. Patient agreeable to assessment and photo documentation. patient came from facility with NWPT in place, upon assessment NPWT suctioned to 125mmhg. wound care seen 10/24/24, pictures below from initial assessment date. Follow up today with surgical PA at bedside. wounds are clean and stable with less bone palpable in the base of right hip. Continue to recommend wound vac vacation and continue durafiber ag for moist healing, autolytic debridment and antimicrobial effects. upon discharge and return to facility recommend restart NPWT. 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 rolled [place] wound: ? No Induration, Fluctuance or Warmth noted, hyperpigmentation and hypopigmented scar tissue Pain: none Goals of Treatment: ? offloading, and moist wound healing. Etiology: Sacrum chronic stage 4 pressure injury Present on Admission Measurements: 2cm x 3cm x 2cm, undermining 7-5oclock Wound Bed: moist red Drainage / Odor: sanguineous drainage Edges: ? rolled [place] wound: ? No Induration, Fluctuance or Warmth noted, hyperpigmentation and hypopigmented contracted scar tissue Pain: none Goals of Treatment: ? offloading, and moist wound healing. Recommendations: 1. Turn and Reposition every 2 hours and as needed for patient comfort. Use pillows or wedges to support off loading positions. 2. Off Load all bony prominences with use of pillows and heel boots if needed. Apply Preventative foams where needed. 3. Monitor for incontinence and moisture control, use barrier creams when needed for prevention and treatment. 4. Provide adequate and supplemental nutrition. 5. Order or Continue low air loss mattress. 6. When applicable maintain blood glucose levels per Providers order. Right hip and sacrum: Off Load Pressure with Q2 hr turns and use of pillows Cleanse and irrigate with NS, Pat dry. Apply barrier to periwound, lightly pack with Durafiber AG, be sure to leave a wick to easy removal. Cover with Foam dressing. Change every day and PRN Re-consult wound care Nurse for wound deterioration or wound changes.
--- NOTE | 2024-10-26 14:23 | PM.DS ---
DS: Providers Provider Date of Service: 10/26/24 Date of admission: 10/21/24 20:14 Date of discharge: 10/26/24 Primary care physician: Lorraine Wiley MD Consults: 10/21/24 21:21 Consult to Infectious Diseases Routine Consulting Provider: [facility] Reason for consultation: sepsis UTI, stage 4 decubitus ulcer, hip wound with vac Consult to Vascular Surgery Routine Consulting Provider: [facility] Vascular Services Reason for consultation: stage 4 decubitus ulcer, wound vac R hip Consult to Wound Care Routine Reason for consultation: stage 4 decubitus ulcer, wound vac R hip 10/22/24 19:40 Consult to Urology Routine Consulting Provider: [facility] Urology Services Reason for consultation: ?Dislodged nephrostomy tube 10/23/24 14:19 Consult to General Surgery Routine Consulting Provider: [facility] General Surgeons Reason for consultation: wound vac management 10/24/24 01:42 Consult to Wound Care Routine Reason for consultation: stage 4 ulcer to coccyx/ R hip DS: Diagnosis Discharge Diagnosis (1) Stage 4 pressure ulcer: Status: Acute DS: Summary Hospital Course Hospital Course: Inconclusive UA with ureteritis and hydroureter -s/p abx and resolved Obstructive uropathy with chronic suprapubic catheter-replaced on 10/21/2024 History of recurrent complicated UTIs stable Paralytic ileus small intestine and colon -resolved History of chronic hematuria followed in clinic by Nephrology-outpatient management Patient is a nonverbal and minimally responsive/interactive at baseline 69-year-old male with a past medical history significant for history CVA with right-sided deficits, chronic UTIs, suprapubic tube, nephrostomy tube, wound VAC right hip, paroxysmal AFib on Xarelto, seizure disorder, history of C diff (currently receiving treatment), hypertension, who presented to the ED due to a change in his urine output and suprapubic tube leak. 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 Wound vac removed on 10/24/24 and has a foam dressing. Patient intially had a wound vac from his facility, but is different product from our in house vac, thus would not be a candidate while inpatient because this would need to be removed prir to DC. Discussed case with wound care who is recommending continuing wound care while inpateint, durafiber packing every other day. He is likely a good candidate for resuming vac once he is tranferred to nursing facility. All his antibiotics have been stopped at the time of discharge and he seems to be hemodynamically stable. Given the C diff in a patient with chronic medical and surgical comorbidities, antibiotics are being used very conservatively and only-indicated. Imaging - Probable transient obstruction urinary flow with suprapubic cath leakage causing sepsis, showing likely cystitis, hydroureter suggestive of ureteritis Urine and blood cultures negative so far - hence BSA stopped on 10/25/24 Surgery consulted - will reexamine his sacral decubitus ulcer. Per vascular surgery no indication for any acute management Per urology-no acute surgical management Per ID-would not need IV long-term antibiotics for sacral osteomyelitis unless plastic surgery has plans to his skin graft the area - all abx stopped on 10/25/24 C diff colonization-on p.o. vanc - Continue Vancomycin oral now qid for 10 days (last day 11/01/24) and then po 125 mg every ,,Wednesday. Worsening hypernatremia- resolved Hypokalemia - needs to be checked daily at his facility and replaced Likely in the setting of hypovolemic hyponatremia given fluid losses He was consistently replaced with potassium oral and IV while inpatient with good effect He was need daily labs until it is more stable Stage IV pressure ulcers with ?Osteomyelitis - no indication of BSA per ID Wheelchair-bound at baseline - hence the SDU - CT showing ulceration of right ischium with osseous destruction possibly indicative of osteomyelitis - similar findings from CT on 06/29 -wound care was consulted and we will continue wound care management as per the facility recs Constipation - CT POA suggestive of fecal impaction likely given chronic sedentary comorbidities - was rx with bowel meds Chronic anemia -likely secondary to ACD -did not need transfusion during this admission Paroxysmal AFib - Xarelto resumed since no urological intervention planned Chronic hematuria Patient has chronic hematuria being followed by Nephrology outpatient hence we will defer for outpatient Nephrology for further medical management Seizure disorder - continue gabapentin and Keppra Hypertension -Pt appears to be HTNsive - will start Losartan 25mg po od Full code VTE prophylaxis: Xarelto Time spent discussing smoking cessation with patient: more than 10 minutes Time Attestation Discharge Coordination Time (in mins): 35 Quality: Safe Use of Opioids Does Pt have an Active Cancer Diagnosis on the Problem List?: No Quality: Stroke Does the patient have a stroke diagnosis?: No Physical Exam Exam: Exam: General: Awake and alert, primarily nonverbal, not following commands. In no acute distress. Resting comfortably in bed Resp: difficult to auscultate as he is nto willing to let me auscultate him CVS: S1, S2 WNL GI: +BS, NT, no distention Skin: Warm, dry. Wound is with foam dressing : Suprapubic catheter in place. Insertion site without erythema or discharge. Psych: Non verbal, not in acute distress Vital Signs: Vital Signs: Last Vital Signs Temp 96.9 F 10/26/24 07:04 Pulse 66 10/26/24 07:04 Resp 17 10/26/24 07:04 BP 146/66 H 10/26/24 07:04 Pulse Ox 99 10/26/24 07:04 O2 Del Method Room Air 10/26/24 07:04 BMI result Body Mass Index 24.4 Const: General: no acute distress and awake Skin: Other: ischial wound: 4x3 with 4 cm of tracking superiorsly. Able to palpate exposed bone in tracking. Healthy wound bed with mild slough. scant blood sacral wound 2x2 cm mild slough, no tracking or exposed bone. periwound skin looks improved. DS: Data Data Completed and Pending Completed studies during hospitalization [Text1]: Procedures Change Drainage Device in Bladder, External Approach (04/19/24) Drainage of Bladder with Drainage Device, Percutaneous Endoscopic Approach (06/23/21) Fluoroscopy of Superior Vena Cava, Guidance (04/19/24) Insertion of Infusion Device into Superior Vena Cava, Percutaneous Approach (04/19/24) Introduction of Vasopressor into Peripheral Vein, Percutaneous Approach (06/29/24) Transfusion of Nonautologous Red Blood Cells into Peripheral Vein, Percutaneous Approach (12/23/22) Labs on day of discharge: Laboratory Results - last 24 hr 10/26/24 06:33 WBC 3.7 L RBC 2.51 L Hgb 7.9 L Hct 23.9 L MCV 95.2 MCH 31.5 MCHC 33.1 RDW 13.5 Plt Count 162 MPV 8.6 L Immature Gran % (Auto) 0.5 H Neut % (Auto) 51.1 Lymph % (Auto) 33.0 [place] % (Auto) 10.0 Eos % (Auto) 4.9 H Baso % (Auto) 0.5 Lymph # (Auto) 1.2 [place] # (Auto) 0.4 Eos # (Auto) 0.2 Baso # (Auto) 0.0 Abs Immat Gran (auto) 0.02 Absolute Neuts (auto) 1.9 L Absolute Nucleated RBC 0.000 Nucleated RBC % (auto) 0.0 Sodium 140 Potassium 2.6 L* Chloride 116 H Carbon Dioxide 19 L Anion Gap 8 L BUN 16 Creatinine 1.04 Estim Creat Clear Calc 68.2 Estimated GFR > 60 Random Glucose 96 Calcium 7.5 L D Total Bilirubin 0.3 AST 29 ALT 6 Alkaline Phosphatase 80 Total Protein 6.0 L Albumin 2.3 L Random Vancomycin 16.2 Preliminary micro results at discharge 10/21/24 17:55 Blood Culture - Preliminary Blood - Venous No growth after 48 hours. 10/21/24 17:38 Blood Culture - Preliminary Blood - Venous No growth after 48 hours. Discharge Plan Discharge Anticipated Discharge Date/Time: 10/26/24 14:22 Patient Disposition: er [facility] Discharge Diagnosis: Sepsis secondary to chronic suprapubic catheter and stage IV sacral decubitus ulcer Referrals: [facility] [Outside] - 1 Week Lorraine Wiley MD [Primary Care Provider, Medical] - 1 Week Discharge Medications: New losartan 25 mg Tablet 25 mg PO DAILY 30 Days Qty: 30 3RF Protocol: Hold for SBP< HOLD for SBP < : 90 Xarelto 20 mg Tablet 20 mg PO DAILY@1700 30 Days Qty: 30 3RF Continued (DME) wet wipes See Rx Instructions .ROUTE .MEDSUPPLY Qty: 5 3RF Rx Instructions: As directed levetiracetam 100 mg/mL solution 2.5 ml PO BID acetaminophen 325 mg Tablet 650 mg PO Q4H PRN (Reason: fever/pain) calcium carbonate-vitamin D3 600 mg-5 mcg (200 unit) Tablet 1 tab PO BID magnesium hydroxide [Milk of Magnesia] 400 mg/5 mL Suspension 30 ml PO DAILY PRN (Reason: No BM in 3 Days) Rx Instructions: (step 1) If no BM for 3 days Fleet Enema 19-7 gram/118 mL Enema 118 ml KS DAILY PRN (Reason: If no BM in 8 hours after use of Bisacodyl) Rx Instructions: (Step 3) If no BM 8 hours after Bisacodyl supp. magnesium citrate Solution 150 ml PO DAILY PRN (Reason: No BM in 12 hrs) Rx Instructions: (step 4) If no BM in 12 hours give 1 bottle ferrous sulfate 325 mg (65 mg iron) Tablet 325 mg PO DAILY multivitamin Tablet 1 tab PO DAILY psyllium Powder 1 ea PO BEDTIME Rx Instructions: mix into at least 8 oz of water or juice before administering simethicone 80 mg Tablet,Chewable 80 mg PO Q6H PRN (Reason: Abdominal Distention) acetaminophen [Tylenol] 325 mg Tablet 650 mg PO BEDTIME acetic acid 0.25 % Solution 50 ml IRRIGATION TUTHSA@2100 Rx Instructions: for urinary catheter flush oxycodone 5 mg tablet 5 mg PO BID potassium chloride 20 mEq/15 mL Liquid 40 meq PO DAILY vancomycin 125 mg Capsule 125 mg PO Q6H gabapentin 300 mg capsule 300 mg PO BEDTIME 30 Days Qty: 30 0RF (DME) miscellaneous medical supply Misc See Rx Instructions .ROUTE .MEDSUPPLY Qty: 1 0RF Rx Instructions: RUE resting hand Splint/Sling As directed, Dx: G81.91, I67.89, duration 999 days/life time tamsulosin 0.4 mg capsule 0.4 mg PO BEDTIME 90 Days Qty: 90 1RF atorvastatin 80 mg tablet 80 mg PO DAILY ascorbic acid (vitamin C) 1,000 mg tablet 1,000 mg PO DAILY 90 Days Qty: 90 1RF methenamine hippurate 1 gram tablet 1 g PO daily 90 Days Qty: 90 1RF Discharge Orders: Discharge Order (Routine); Ordered 10/26/24 Ordered By: Viri Villatoro Diet: F/U DIET=PUREE WITH HONEY Activity on Discharge: As tolerated Stand Alone Forms: Patient Portal Discharge page Print Language: Syriac Care Plan Goals: Wound care C diff resolution Health Concerns: See above Plan of Treatment: See above Assessment: See above
[2024-10-26 15:12] VITALS: BP 137/80; PULSE 80; RESP 16; TEMP 36.6; O2SAT 98
[2024-10-26 15:42] VITALS: BP 137/80; PULSE 80; RESP 16; TEMP 36.6; O2SAT 98
== END 2024-10-26 15:23 | disposition skilled nursing facility (03) | DRG 698 ==
LOC: HO.ED 20:11 → HO.EDOVER 20:22 → HO.S3 10-22 19:56
PROVIDERS: Student in an Organized Health Care Education/Training Program; Admitting Provider Physician Assistant; Emergency Provider Emergency Medicine; PCP Internal Medicine; Visit Provider Student in an Organized Health Care Education/Training Program
DX: T83.518A Infection and inflammatory reaction due to other urinary catheter, initial encounter (principal); A41.9 Sepsis, unspecified organism; L89.154 Pressure ulcer of sacral region, stage 4; L89.214 Pressure ulcer of right hip, stage 4; I69.351 Hemiplegia and hemiparesis following cerebral infarction affecting right dominant side; N13.6 Pyonephrosis; E87.1 Hypo-osmolality and hyponatremia; K56.0 Paralytic ileus; N31.9 Neuromuscular dysfunction of bladder, unspecified; I48.0 Paroxysmal atrial fibrillation; K56.41 Fecal impaction; D63.8 Anemia in other chronic diseases classified elsewhere; I69.319 Unspecified symptoms and signs involving cognitive functions following cerebral infarction; E86.1 Hypovolemia; F01.50 Vascular dementia, unspecified severity, without behavioral disturbance, psychotic disturbance, mood disturbance, and anxiety; E87.6 Hypokalemia; G40.909 Epilepsy, unspecified, not intractable, without status epilepticus; I10 Essential (primary) hypertension; Z99.3 Dependence on wheelchair; Z93.6 Other artificial openings of urinary tract status; Z20.822 Contact with and (suspected) exposure to COVID-19; Z87.440 Personal history of urinary (tract) infections; Z79.01 Long term (current) use of anticoagulants; Z79.899 Other long term (current) drug therapy
CPT/HCPCS: 36415; 74177; 80048; 80053; 80202; 81001; 82272; 83605; 83735; 85025; 87040; 87086; 87493; 87502; 87507; 87635; 93005; 99285; J0131; J1953; J2543; J3373; J3374; J3480; J7120; Q9967

== ENCOUNTER → 2024-10-21 17:49 | Outpatient (BNV) | payer OTHER, SELFPAY | PROVIDERS: Admitting Provider Physician Assistant; Emergency Provider Emergency Medicine; Visit Provider Internal Medicine | DX: R00.0 Tachycardia, unspecified (principal) | CPT/HCPCS: 93010 ==

== ENCOUNTER 2024-10-21 20:14 | Outpatient (BNV) | payer OTHER, SELFPAY | END 2024-10-21 21:09 | PROVIDERS: Admitting Provider Physician Assistant; Emergency Provider Emergency Medicine; Visit Provider Radiology Diagnostic Radiology | DX: N13.4 Hydroureter (principal) | CPT/HCPCS: 74177 ==

== ENCOUNTER → 2024-10-21 20:14 | Outpatient (BNV) | payer OTHER, SELFPAY | PROVIDERS: Admitting Provider Physician Assistant; Emergency Provider Emergency Medicine; Visit Provider Student in an Organized Health Care Education/Training Program | DX: A41.9 Sepsis, unspecified organism (principal); N39.0 Urinary tract infection, site not specified; Z93.59 Other cystostomy status; L89.94 Pressure ulcer of unspecified site, stage 4; S71.001A Unspecified open wound, right hip, initial encounter; D64.9 Anemia, unspecified; N28.89 Other specified disorders of kidney and ureter | CPT/HCPCS: 99223; 99233 ==

== ENCOUNTER → 2024-10-21 20:14 | Outpatient (BNV) | payer OTHER, SELFPAY | PROVIDERS: Admitting Provider Physician Assistant; Emergency Provider Emergency Medicine; Visit Provider Urology | DX: R33.9 Retention of urine, unspecified (principal); N17.9 Acute kidney failure, unspecified; Z93.59 Other cystostomy status; N39.0 Urinary tract infection, site not specified; N13.9 Obstructive and reflux uropathy, unspecified | CPT/HCPCS: 99222 ==

== ENCOUNTER → 2024-10-21 20:14 | Outpatient (BNV) | payer OTHER, SELFPAY | PROVIDERS: Admitting Provider Physician Assistant; Emergency Provider Emergency Medicine; Visit Provider Surgery Vascular Surgery | DX: L89.304 Pressure ulcer of unspecified buttock, stage 4 (principal) | CPT/HCPCS: 99222 ==

== ENCOUNTER → 2024-10-21 20:14 | Outpatient (BNV) | payer OTHER, SELFPAY | PROVIDERS: Admitting Provider Physician Assistant; Emergency Provider Emergency Medicine | DX: L89.304 Pressure ulcer of unspecified buttock, stage 4 (principal) | CPT/HCPCS: 99222; 99232 ==

== ENCOUNTER → 2024-10-21 20:14 | Outpatient (BNV) | payer OTHER, SELFPAY | PROVIDERS: Admitting Provider Physician Assistant; Emergency Provider Emergency Medicine; Visit Provider Internal Medicine | DX: Z93.59 Other cystostomy status (principal); N28.89 Other specified disorders of kidney and ureter; N13.9 Obstructive and reflux uropathy, unspecified | CPT/HCPCS: 99222 ==

== ENCOUNTER 2025-01-04 15:34 | Inpatient (IN) | payer OTHER, SELFPAY ==
--- NOTE | ~2025-01-04 | XR_ITS ---
CLINICAL HISTORY: sob 1 view chest x-ray Comparison: CT/REG/SR - CT ABDOMEN PELVIS WO IV CON - 01/04/25 18:56 EST CR - XR CHEST 1V - 01/04/25 16:58 EST Findings: Continued areas of consolidation along the medial aspect of the left lung base. Right lung is clear. No pleural effusion or pneumothorax. Cardiac silhouette is within normal limits. IMPRESSION: Continued consolidation of the left lung base. The appearance is most characteristic of atelectasis on the patient's earlier CT of the abdomen. This document has been electronically signed by: Braydon Tracy MD on 01/05/2025 00:05:24
--- NOTE | ~2025-01-04 | CT_ITS ---
CLINICAL HISTORY: nephrostomy tube fell out elevated cr obs Exam: Unenhanced CT abdomen and pelvis with multiplanar reformats. Comparison: 10/21/2024. Findings: CT abdomen: Lung bases reveal trace left base atelectasis. Liver is free of gross focal lesions and ductal dilatation. Gallbladder appears unremarkable. Spleen is unremarkable. Pancreas and adrenal glands appear unremarkable. Kidneys reveal right-sided nephrostomy catheter to be present, in good position. There is some contrast administered via nephrostomy catheter, opacifying the right renal pelvis and proximal ureter. Kidneys otherwise unremarkable. No free intraperitoneal fluid or retroperitoneal masses or adenopathy. Abdominal aorta is normal caliber with mild calcific atherosclerosis. 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 Moderate colonic stool burden is present. No definable wall thickening or small bowel distention. CT pelvis: Suprapubic catheter is present in good position. No pelvic masses, fluid or adenopathy. Decubitus ulcer overlying the right ischiopubic ramus (4; 778-744) is re-identified with similar erosion and sclerosis of the subjacent right inferior pubic ramus (4; 739-756, unchanged since prior exam. Osseous structures reveal no fractures or other destructive osseous lesions. Impression: 1. Well-positioned appearing right nephrostomy tube. 2. Similar likely chronic colonic distention as described above. 3. Similar decubitus ulcer overlying right ischiopubic ramus. This document has been electronically signed by: Lior Hughes MD on 01/04/2025 19:44:05
--- NOTE | ~2025-01-04 | XR_ITS ---
EXAMINATION: XR CHEST CLINICAL INFORMATION: sob COMPARISON: Chest x-ray 07/26/2024 TECHNIQUE: Frontal view of the chest was obtained. FINDINGS: The lungs are hypoexpanded with platelike atelectasis of the lingula. Rest lungs are clear. The heart size and pulmonary vascularity is normal. No gross bony abnormality seen. XR/XR chest 1V IMPRESSION: Lingular platelike atelectasis. Hypoexpanded lungs. Electronically signed by: Deon Barragan MD 01/05/2025 07:21 AM EST
--- NOTE | ~2025-01-04 | IR_ITS ---
EXAMINATION: XR NEPHROSTOMY TUBE CHANGE, RIGHT CLINICAL INFORMATION: Right nephrostomy for a 3 month exchange. COMPARISON: CT abdomen and pelvis 01/04/2025.. TECHNIQUE: Following explaining procedure, benefits and risk by Dr. Mosquera is noted the patient's son by phone, informed consent was obtained. The consent was signed by Dr. D eLa Paz and Dr. Barragan. Patient was placed in left lateral decubitus view and the area around the right nephrostomy catheter insertion site was cleaned and draped in usual sterile manner. 2 mL of ionic contrast was administered the catheter and a single image was obtained. The catheter lies within the right renal sinus. The catheter was then secured at this proximal opening along the hub and 0.035 guidewire was advanced and placed in the renal sinus and catheter removed. Over the catheter a 8 Azerbaijani nephrostomy catheter with stiffener was advanced over the wire and placed in the right renal pelvis on the fluoroscopy. The stiffener was removed and pigtail was performed. The catheter tip lies within the renal sinus and proximal ureter. Contrast injected to confirm position of the catheter. Its in good position. The catheter was anchored to the skin with 3 0 nonabsorbable nylon sutures. Sterile dressing applied post procedure. Patient tolerated procedure extremely well. No conscious sedation was administered during the exam. FINDINGS: On pulmonary fluoroscopy imaging and contrast injection to the existing right nephrostomy catheter there is contrast opacifying the kidney pelvis with no contrast seen in the ureter. There is fluoroscopy-guided exchange of 8 Azerbaijani nephrostomy catheter or guidewire. The catheter tip lies in the proximal ureter and the pigtail is in the renal pelvis. FLUOROSCOPY TIME: 4.4 minutes DOSE AREA PRODUCT: 1 92 uGy-m2 (microgray-meter squared) IR/IR nephrostomy tube change IMPRESSION: Successful fluoroscopy-guided right nephrostomy exchange to a new 8 Azerbaijani 30 cm long catheter. The catheter lies in good position. Electronically signed by: Deon Barragan MD 01/08/2025 03:54 PM EST
[2025-01-04 16:08] VITALS: BP 128/72; PULSE 92; O2SAT 97
--- NOTE | 2025-01-04 16:19 | ED.WOUNDLAC ---
HPI - Wound/Laceration General Chief Complaint: Urogenital-Male Stated Complaint: NEPHROSTOMY TUBE OUT PER EMS Time Seen by Provider: 01/04/25 16:07 History of Present Illness HPI narrative: 69-year-old male with a history of strokes history of UTIs history of decubitus ulcer history of suprapubic catheter history of having a right-sided nephrostomy tube presented today because the right-sided nephrostomy tube fell out. Baseline mental status is awake oriented times 0 per shelter mental status is unchanged patient's is on Xarelto history of kidney stone on that side. Related Data Home Medications ?Medication ?Instructions ?Recorded ?Confirmed acetaminophen 325 mg tablet 650 mg PO Q4H PRN fever/pain 02/16/21 10/22/24 calcium 600 mg (as 1 tab PO BID 02/16/21 10/22/24 carbonate)-vitamin D3 5 mcg (200 unit) tablet magnesium hydroxide 400 mg/5 mL 30 ml PO DAILY PRN No BM in 3 Days 02/16/21 10/22/24 oral suspension (Milk of Magnesia) levetiracetam 100 mg/mL oral 2.5 ml PO BID 02/26/21 10/22/24 solution atorvastatin 80 mg tablet 80 mg PO DAILY 01/26/22 10/22/24 magnesium citrate 150 ml PO DAILY PRN No BM in 12 hrs 02/15/22 10/22/24 sodium phosphates 19 gram-7 118 ml NC DAILY PRN If no BM in 8 02/15/22 10/22/24 gram/118 mL enema (Fleet Enema) hours after use of Bisacodyl acetaminophen 325 mg tablet 650 mg PO BEDTIME 10/03/22 10/22/24 (Tylenol) acetic acid 0.25 % irrigation 50 ml irrigation TUTHSA@2100 10/03/22 10/22/24 solution ferrous sulfate 325 mg (65 mg 325 mg PO DAILY 12/22/22 10/22/24 iron) tablet multivitamin 1 tab PO DAILY 01/18/24 10/22/24 psyllium 1 ea PO BEDTIME 01/18/24 10/22/24 simethicone 80 mg chewable tablet 80 mg PO Q6H PRN Abdominal 04/19/24 10/22/24 Distention oxycodone 5 mg tablet 5 mg PO BID 06/29/24 10/22/24 potassium chloride 20 mEq/15 mL 40 meq PO DAILY 10/22/24 10/22/24 oral liquid vancomycin 125 mg capsule 125 mg PO Q6H 10/22/24 10/22/24 Previous Rx's ?Medication ?Instructions ?Recorded wet wipes #5 multiple units 03/12/20 tamsulosin 0.4 mg capsule 0.4 mg PO BEDTIME 90 days #90 caps 03/22/20 gabapentin 300 mg capsule 300 mg PO BEDTIME 30 days #30 caps 03/27/20 miscellaneous medical supply #1 ea 03/27/20 ascorbic acid (vitamin C) 1,000 mg 1,000 mg PO DAILY 90 days #90 tabs 01/27/22 tablet methenamine hippurate 1 gram tablet 1 g PO daily 90 days #90 tabs 01/27/22 losartan 25 mg tablet 25 mg PO DAILY 30 days #30 tabs 10/26/24 rivaroxaban 20 mg tablet (Xarelto) 20 mg PO DAILY@1700 30 days #30 10/26/24 tabs Allergies Allergy/AdvReac Type Severity Reaction Status Date / Time No Known Allergies (No Known Allergy Verified 01/04/25 16:31 Allergies*) Review of Systems Review of Systems: Unable to obtain review of systems secondary to patient's condition [facility] Past Medical History Medical History Multiple renal calculi 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 Mother No problems noted. Social History Social History Household Members: None Household Members Other:: SNF Housing: Senior Living Housing Other:: rehab Are you a primary director day care center to a significant other at home: No Do you presently have visiting nurse or other home services: No Alcohol intake: former Comment: patient sleeping Patient Tobacco Use Status: Tobacco use Unknown Smoked in Last 30 Days: No Second Hand Smoke Exposure: No Use of substances other than those prescribed or required for medical reasons: No Advance Directives: Yes Advance Directives on File: Yes Advance Directives Date on File: 02/14/20 Do you have a plan to hurt others: No Plan service: No Current occupational status: disabled Physical Exam Exam: Exam: Appearance: Alert. oriented times 0. No acute distress. Eyes: Pupils equal, round and reactive to light. ENT: Pharynx normal. Neck: Normal inspection. Neck supple. No lymph nodes noted. No crepitus CVS: Normal heart rate and rhythm. Pulses normal. Normal S1 and S2 Respiratory: No respiratory distress. Breath sounds normal. No Wheezing. No rales Abdomen: Soft and nontender. No rigidity. No distention. good BS x4. Examination of the right flank showed the Nephrostomy tube on the right side is almost completely out. Suprapubic catheter in place. Draining. Skin: Skin warm and dry. Normal skin color. Normal skin turgor. Extremities: contracted on the right side. Neuro: Oriented X 0. contracted on the right side Vital Signs: Vital Signs: Last Vital Signs Temp 98.3 F 01/04/25 22:21 Pulse 99 01/04/25 23:20 Resp 18 01/04/25 23:20 BP 134/85 01/04/25 23:20 Pulse Ox 99 01/04/25 23:20 O2 Del Method Room Air 01/04/25 23:20 BMI result Body Mass Index 23.0 Medications Administered Generic Name Dose Route Start Last Admin Trade Name Freq PRN Reason Stop Dose Admin Sodium Chloride 1,000 mls @ 100 mls/hr 01/04/25 20:45 01/04/25 20:55 Ns IVCONT 100 mls/hr .Q10H KEE Administration Discontinued Medications Generic Name Dose Route Start Last Admin Trade Name Freq PRN Reason Stop Dose Admin Sodium Chloride 1,000 mls @ 999 mls/hr 01/04/25 20:45 01/04/25 22:22 Ns IV 01/04/25 21:45 Infused .Q1H1M KEE Infusion Medical Decision Making Medical Decision Making [facility] Narrative: patient is a 69-year-old male brought in from shelter for right nephrostomy tube dislodgement. History of CVA. Patient's nonverbal baseline. We did a CT scan of the abdomen pelvis I reviewed radiology's reading which showed the nephrostomy tube to be in place. But on my exam the to was clearly movable is dislodged. My interpretation patient's chest x-ray grossly showed no focal infiltrate. Patient's lab showed a normal white count. Hemoglobin is 8.2 which is baseline. Patient is creatinine is 1.6. This is new when compared to previous. Baseline is 1.0. Will give IV hydration. I discussed the case with Interventional Radiology. Patient is on Xarelto. [facility] patient not a good candidate for getting a new nephrostomy tube. Wants to wait 3 days prior to patient getting a new tube. Differential Diagnosis Differential Diagnoses: The differential diagnosis associated with the presentation includes Acute renal insufficiency electrolyte disturbance nephrostomy tube dislodged Admission/Observation Consideration of admission/observation: Escalation of care including admission/observation considered patient will require admission for further evaluation Consult Healthcare Provider Management of the patient was discussed with: Hospitalist and Gyroscope Repairer ( interventional radiology) Lab Data [facility] Lab Attestation statement: I reviewed the patient's lab results. 01/04/25 16:55 01/04/25 16:55 Labs: Lab Results 01/04/25 01/04/25 Range/Units 16:55 21:10 WBC 5.3 (4.8-10.8) X10*3/uL RBC 2.64 L (4.60-5.80) X10*6/uL Hgb 8.2 L (14.0-18.0) g/dl Hct 25.8 L (42.0-52.0) % MCV 97.7 (80.0-98.0) fL MCH 31.1 (27.0-33.0) pg MCHC 31.8 (31.0-36.0) g/dl RDW 15.9 (11.0-16.0) % Plt Count 176 (160-400) X10*3/uL MPV 8.8 L (9.4-12.4) fL Immature Gran % (Auto) 0.4 (0.0-0.4) % Neut % (Auto) 69.3 (45-73) % Lymph % (Auto) 18.8 L (20-40) % [place] % (Auto) 9.8 (2-11) % Eos % (Auto) 1.5 (0-4) % Baso % (Auto) 0.2 (0-2) % Lymph # (Auto) 1.0 L (1.2-4.9) X10*3/uL [place] # (Auto) 0.5 (0.1-1.2) X10*3/uL Eos # (Auto) 0.1 (0.0-0.4) X10*3/uL Baso # (Auto) 0.0 (0.0-0.2) X10*3/uL Abs Immat Gran (auto) 0.02 (0.00-0.03) X10*3/uL Absolute Neuts (auto) 3.7 (2.0-8.3) x10*3/uL Absolute Nucleated RBC 0.000 (0.0-0.012) X10*3/uL Nucleated RBC % (auto) 0.0 (0.0-0.2) /100WBC Hold Purple Top SEE NOTE PT 19.8 H (11.2-13.5) SEC INR 1.6 H (0.9-1.1) Hold Blue Top SEE NOTE Sodium 143 (135-145) mmol/L Potassium 4.7 D (3.3-5.1) mmol/L Chloride 117 H (96-108) mmol/L Carbon Dioxide 24 (22-29) mmol/L Anion Gap 7 L (12-20) BUN 64 H (9-16) mg/dL Creatinine 1.60 H (0.5-1.4) mg/dL Estim Creat Clear Calc 40.1 Estimated GFR 43 Random Glucose 116 H (60-115) mg/dL Lactic Acid 1.2 (0.5-2.0) mmol/L Calcium 9.7 D (8.4-10.2) mg/dL Total Bilirubin 0.3 (0.0-1.0) mg/dL Direct Bilirubin 0.1 (0.0-0.5) mg/dL AST 29 (5-37) U/L ALT 14 (0-40) U/L Alkaline Phosphatase 95 (39-117) U/L Total Protein 6.7 (6.5-8.0) g/dL Albumin 2.6 L (3.5-5.0) g/dL Lipase 17 (8-78) U/L Blood Type A Positive Antibody Screen NEGATIVE Radiology Impression Discussion of test interpretation with radiology: I have reviewed the radiologist's reading. External Record Review External record reviewed: Inpatient record Chronic Conditions history of CVA Social Determinants Patient?s care significantly limited by Social Determinants of Health including: Problems related to primary support group Discharge Plan Discharge Clinical Impression: Acute kidney insufficiency Patient Disposition: Admitted As Inpatient
[2025-01-04 16:23] VITALS: BP 156/52; PULSE 99; RESP 14; TEMP 36.9; O2SAT 95; BMI 23.0
--- NOTE | 2025-01-04 16:59 | PC.NURSE ---
Coccyx wound noted when rolling patient, ED provider Dr. Marx sent picture, coccyx meplex applied.
[2025-01-04 17:02] LABS: MANUAL DIFF FLAG NO
[2025-01-04 17:12] LABS: Hematocrit 25.8 % (42.0-52.0); Hemoglobin 8.2 g/dl (14.0-18.0); Imm Gran Abs Auto 0.02 X10*3/uL (0.00-0.03); Imm Gran Pct Auto 0.4 % (0.0-0.4); Lymphocytes Absolute Auto 1.0 X10*3/uL (1.2-4.9); Mean Corpuscular HGB Conc 31.8 g/dl (31.0-36.0); Mean Corpuscular Hemoglobin 31.1 pg (27.0-33.0); Mean Corpuscular Volume 97.7 fL (80.0-98.0); NRBC Abs Auto 0.000 X10*3/uL (0.0-0.012); NRBC Pct Auto 0.0 /100WBC (0.0-0.2); Platelet Count 176 X10*3/uL (160-400); Red Blood Count 2.64 X10*6/uL (4.60-5.80); White Blood Count 5.3 X10*3/uL (4.8-10.8)
[2025-01-04 17:26] LABS: Alanine Aminotransferase 14 U/L (0-40); Albumin Level 2.6 g/dL (3.5-5.0); Alkaline Phosphatase 95 U/L (39-117); Anion Gap 7 (12-20); Aspartate Amino Transferase 29 U/L (5-37); Blood Urea Nitrogen 64 mg/dL (9-16); Calcium 9.7 mg/dL (8.4-10.2); Carbon Dioxide 24 mmol/L (22-29); Chloride 117 mmol/L (96-108); Creatinine Clr Calc Pharmacy 40.1; Estimated Glomerular Filt Rate 43; Lipase 17 U/L (8-78); Potassium 4.7 mmol/L (3.3-5.1); Sodium 143 mmol/L (135-145); Total Protein 6.7 g/dL (6.5-8.0)
[2025-01-04 18:23] VITALS: BP 116/69; PULSE 81; RESP 11; TEMP 36.4; O2SAT 97
--- OUTSIDE RECORDS SUMMARY | 2025-01-04 18:55 | XMS_ITS | Encounter Summary ---
Author Organization [employer] Address [address] [place] [address] Care Team Providers Care Linux Systems Administrator Name Role Phone Lauren Wiley MD Primary Care Provider + Encounter Details Date Type Department Care Team (Late st Contact Info) Description 11/18/2024 Lab Requisition [facility] - Main Lab [address] [place] [address] Lauren Wiley MD [address] [phone] Essential (primary) hypertension; Chronic kidney disease, unspecified [...] Associated Diagnosis Comments COMPLETE BLOOD COUNT Routine 11/20/2024 9:17 AM EDT Essential (primary) hypertension Chronic kidney disease, unspecified CREATINE KINASE Routine 11/20/2024 9:17 AM EDT Essential (primary) hypertension Chronic kidney disease, unspecified COMPREHENSIVE METABOLIC PANEL Routine 11/20/2024 9:17 AM EDT Essential (primary) hypertension Chronic kidney disease, unspecified documented in this encounter Results * (ABNORMAL) Complete blood count (11/20/2024 9:17 AM EDT) WBC 5.0 4.8 - 10.8 K/[facility] LAB HEMETOLOGY METHOD 11/20/2024 12:10 PM EDT [facility] RBC 2.70(L) 4.50 - 5.50 M/mcL LAB HEMETOLOGY METHOD 11/20/2024 12:10 PM EDT [facility] Hemoglobin 8.1(L) 13.5 - 17.5 g/dL LAB HEMETOLOGY METHOD 11/20/2024 12:10 PM T [facility] Hematocrit 26.2(L) 42.0 - 54.0 % LAB HEMETOLOGY METHOD 11/20/2024 12:10 PM EDT [facility] MCV 98.1(H) 79.0 - 98.0 FL LAB HEMETOLOGY METHOD 11/20/2024 12:10 PM [facility] LAB MCH 30.3 27.0 - 32.0 pcg LAB HEMETOLOGY METHOD 11/20/2024 12:10 PM [facility] LAB MCHC 30.9(L) 32.0 - 37.0 g/dL LAB HEMETOLOGY METHOD 11/20/2024 12:10 PM [facility] RDW 14.7 11.0 - 15.0 % LAB HEMETOLOGY METHOD 11/20/2024 12:10 PM [facility] LAB Platelets 258 130 - 400 K/mcL LAB HEMETOLOGY METHOD 11/20/2024 12:10 PM [facility] MPV 9.5 7.0 - 11.0 FL LAB HEMETOLOGY METHOD 11/20/2024 12:10 PM [facility] LAB NRBC 0.0 <1.0 % LAB HEMETOLOGY METHOD 11/20/2024 12:10 PM [facility] LAB NRBC Absolute 0.00 <0.10 K/mcL LAB HEMETOLOGY METHOD 11/20/2024 12:10 PM [facility] Blood Venous blood specimen / Unknown Venipuncture / Unknown 11/20/2024 9:17 AM EDT 11/20/2024 10:46 AM EDT Lauren Wiley MD LAB BLOOD ORDERABLES Fin al Result Performing Organization Address City/[facility]/ZIP Co de Phone Number [facility] [address] [place] [address], [place] [phone] * Creatine kinase (11/20/2024 9:17 AM EDT) [facility] Total CK 25 22 - 269 unit/L LAB CHEMISTRY METHOD 11/20/2024 12:39 PM EDT [facility] Blood Venous blood specimen / Unknown Venipuncture / Unknown 11/20/2024 9:17 AM EDT 11/20/2024 10:45 AM EDT Lauren Wiley MD LAB BLOOD ORDERABLES Fin al Result Performing Organization Address City/[facility]/ZIP Co de Phone Number [facility] [address] [place] [address], [place] [phone] * (ABNORMAL) Comprehensive metabolic panel (11/20/2024 9:17 AM EDT) [facility] Sodium 143 133 - 145 mmol/L LAB CHEMISTRY METHOD 11/20/2024 12:41 PM [facility] Potassium 3.6 3.5 - 5.5 mmol/L LAB CHEMISTRY METHOD 11/20/2024 12:41 PM [facility] Chloride 110 96 - 110 mmol/L LAB CHEMISTRY METHOD 11/20/2024 12:41 PM [facility] CO2 25 21 - 32 mmol/L LAB CHEMISTRY METHOD 11/20/2024 12:41 PM [facility] Anion Gap 8 3 - 11 LAB CHEMISTRY METHOD 11/20/2024 12:41 PM [facility] Glucose 222(H) 70 - 100 mg/dL LAB CHEMISTRY METHOD 11/20/2024 12:41 PM [facility] BUN 50(H) 5 - 25 mg/dL LAB CHEMISTRY METHOD 11/20/2024 12:41 PM [facility] Creatinine 1.43(H) 0.70 - 1.30 mg/dL LAB CHEMISTRY METHOD 11/20/2024 12:41 PM [facility] eGFR 53(L) >=60 mL/min/1. 73m2 LAB CHEMISTRY METHOD 11/20/2024 12:41 PM [facility] LAB Comment:Calculation based on the Chronic Kidney Disease Epidemiology Collaboration (CKD-EPI) equation refit without adjustment for race. BUN/Creatinine Ratio 35.0 LAB CHEMISTRY METHOD 11/20/2024 12:41 PM [facility] Calcium 8.6 8.5 - 10.5 mg/dL LAB CHEMISTRY METHOD 11/20/2024 12:41 PM [facility] AST (SGOT) 20 10 - 42 unit/L LAB CHEMISTRY METHOD 11/20/2024 12:41 PM [facility] ALT (SGPT) 24 10 - 60 unit/L LAB CHEMISTRY METHOD 11/20/2024 12:41 PM [facility] Alkaline Phosphatase 98 42 - 121 unit/L LAB CHEMISTRY METHOD 11/20/2024 12:41 PM [facility] Total Protein 5.9(L) 6.0 - 8.0 g/dL LAB CHEMISTRY METHOD 11/20/2024 12:41 PM [facility] Albumin 1.8(L) 3.2 - 5.0 g/dL LAB CHEMISTRY METHOD 11/20/2024 12:41 PM [facility] Total Bilirubin 0.3 0.0 - 1.4 mg/dL LAB CHEMISTRY METHOD 11/20/2024 12:41 PM [facility] Blood Venous blood specimen / Unknown Venipuncture / Unknown 11/20/2024 9:17 AM EDT 11/20/2024 10:45 AM EDT us Lauren Wiley MD LAB BLOOD ORDERABLES Fin al Result [facility] [address] [place] [address], documented in this encounter Visit Diagnoses Diagnosis Essential (primary) hypertension Unspecified essential hypertension Chronic kidney disease, unspecified documented in this encounter Additional Health Concerns Infection Onset Date Last Indicated Resolved Time 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
--- OUTSIDE RECORDS SUMMARY | 2025-01-04 18:55 | XMS_ITS | Encounter Summary ---
Author Organization [employer] Address [address] [place] [address] Care Team Providers Care Rooming House Keeper Name Role Phone Lauren Wiley MD Primary Care Provider + Encounter Details Date Type Department Care Team (Late st Contact Info) Description 10/20/2024 Lab Requisition [facility] - Main Lab 299 [facility] [place] [address] Lauren Wiley MD [address] [address] Essential (primary) hypertension; Chronic kidney disease, unspecified [...] as of this encounter Visit Diagnoses Diagnosis Essential (primary) hypertension Unspecified essential hypertension Chronic kidney disease, unspecified documented in this encounter Additional Health Concerns Infection Onset Date Last Indicated Resolved Time ESBL 03/29/2024 12/31/2024 VRE 12/31/2024 12/31/2024 documented as of this encounter Care Teams Rooming House Keeper Relationship Specialty Start Date End Date Lauren Wiley MD [address] [phone] PCP - General Family Medicine 12/01/24 documented as of this encounter
--- OUTSIDE RECORDS SUMMARY | 2025-01-04 18:55 | XMS_ITS | Encounter Summary ---
Author Organization [facility] Address [address] [place] [address] Care Team Providers Care Waste Oil Pumper Name Role Phone Lauren Wiley MD Primary Care Provider + Encounter Details Date Type Department Care Team (Late st Contact Info) Description 01/03/2025 Lab Requisition [facility] - Main Lab 299 [facility] [place] [address] Lauren Wiley MD [address] [phone] Anemia, unspecified Social History Tobacco Use Types [...] documented as of this encounter Care Teams Waste Oil Pumper Relationship Specialty Start Date End Date Lauren Wiley MD [address] [address] PCP - General Family Medicine 12/01/24 documented as of this encounter
--- OUTSIDE RECORDS SUMMARY | 2025-01-04 18:55 | XMS_ITS | Encounter Summary ---
Author Organization [employer] [facility] Address [address] [place] [address] Care Team Providers Care Cashiers Bussers Food Runners Name Role Phone Lauren Wiley MD Primary Care Provider + Encounter Details Date Type Department Care Team (Late st Contact Info) Description 03/03/[address] [facility] Lab [address] [place] [address] Lauren Wiley MD [address] [phone] Essential (primary) hypertension Social History Tobacco Use [...] 10:[address] [facility] Potassium 4.4 3.5 - 5.5 mmol/L LAB CHEMISTRY METHOD 03/06/2024 10:[address] [facility] Chloride 112(H) 96 - 110 mmol/L LAB CHEMISTRY METHOD 03/06/2024 10:[address] [facility] CO2 28 21 - 32 mmol/L LAB CHEMISTRY METHOD 03/06/2024 10:49 AM [facility] Anion Gap 3 3 - 11 LAB CHEMISTRY METHOD 03/06/2024 10:49 AM [facility] Glucose 98 70 - 100 mg/dL LAB CHEMISTRY METHOD 03/06/2024 10:49 AM [facility] BUN 28(H) 5 - 25 mg/dL LAB CHEMISTRY METHOD 03/06/2024 10:49 AM [facility] Creatinine 0.95 0.70 - 1.30 mg/dL LAB CHEMISTRY METHOD 03/06/2024 10:49 AM [facility] eGFR 87 >=60 mL/min/1. 73m2 LAB CHEMISTRY METHOD 03/06/2024 10:49 AM [facility] LAB Comment:Calculation based on the Chronic Kidney Disease Epidemiology Collaboration (CKD-EPI) equation refit without adjustment for race. BUN/Creatinine Ratio 29.5 LAB CHEMISTRY METHOD 03/06/2024 10:49 AM [facility] Calcium 8.5 8.5 - 10.5 mg/dL LAB CHEMISTRY METHOD 03/06/2024 10:49 AM [facility] Blood Venous blood specimen / Unknown Venipuncture / Unknown 03/06/2024 8:07 AM EST 03/06/2024 9:07 AM EST us Lauren Wiley MD LAB BLOOD ORDERABLES Fin al Result [facility] [address] [place] [address], documented in this encounter Visit Diagnoses Diagnosis Essential (primary) hypertension Unspecified essential hypertension documented in this encounter Additional Health Concerns Infection Onset Date Last Indicated Resolved Time ESBL 03/29/2024 12/31/2024 VRE 12/31/2024 12/31/2024 documented as of this encounter Care Teams Cashiers Bussers Food Runners Relationship Specialty Start Date End Date Lauren Wiley MD [address] [address] PCP - General Family Medicine 12/01/24 documented as of this encounter
--- OUTSIDE RECORDS SUMMARY | 2025-01-04 18:55 | XMS_ITS | Encounter Summary ---
Author Organization [facility] Address [address] [place] [address] Care Team Providers Care Scout Executive Name Role Phone Elder, Lauren Paulino MD Primary Care Provider + Encounter Details Date Type Department Care Team (Late st Contact Info) Description 02/02/2024 Lab Requisition [facility] Lab [address] [place] [address] Yoav Osorio MD [address] [place] [address] [address] [place] [phone] Essential (primary) hypertension Social History Tobacco Use [...] LAB CHEMISTRY METHOD 02/02/2024 12:58 PM EST [facility] Potassium 4.0 3.5 - 5.5 mmol/L LAB CHEMISTRY METHOD 02/02/2024 12:58 PM EST [facility] Chloride 113(H) 96 - 110 mmol/L LAB CHEMISTRY METHOD 02/02/2024 12:58 PM EST [facility] CO2 27 21 - 32 mmol/L LAB CHEMISTRY METHOD 02/02/2024 12:58 PM [facility] Anion Gap 5 3 - 11 LAB CHEMISTRY METHOD 02/02/2024 12:58 PM [facility] Glucose 71 70 - 100 mg/dL LAB CHEMISTRY METHOD 02/02/2024 12:58 PM [facility] BUN 31(H) 5 - 25 mg/dL LAB CHEMISTRY METHOD 02/02/2024 12:58 PM [facility] LAB Comment:Results verified by repeat testing Creatinine 0.92 0.70 - 1.30 mg/dL LAB CHEMISTRY METHOD 02/02/2024 12:58 PM [facility] eGFR 90 >=60 mL/min/1. 73m2 LAB CHEMISTRY METHOD 02/02/2024 12:58 PM [facility] Comment:Calculation based on the Chronic Kidney Disease Epidemiology Collaboration (CKD-EPI) equation refit without adjustment for race. BUN/Creatinine Ratio 33.7 LAB CHEMISTRY METHOD 02/02/2024 12:58 PM [facility] Calcium 8.6 8.5 - 10.5 mg/dL LAB CHEMISTRY METHOD 02/02/2024 12:58 PM [facility] AST (SGOT) 18 10 - 42 unit/L LAB CHEMISTRY METHOD 02/02/2024 12:58 PM [facility] ALT (SGPT) 18 10 - 60 unit/L LAB CHEMISTRY METHOD 02/02/2024 12:58 PM [facility] Alkaline Phosphatase 94 42 - 121 unit/L LAB CHEMISTRY METHOD 02/02/2024 12:58 PM [facility] Total Protein 5.4(L) 6.0 - 8.0 g/dL LAB CHEMISTRY METHOD 02/02/2024 12:58 PM [facility] Albumin 2.3(L) 3.2 - 5.0 g/dL LAB CHEMISTRY METHOD 02/02/2024 12:58 PM [facility] Total Bilirubin 0.5 0.0 - 1.4 mg/dL LAB CHEMISTRY METHOD 02/02/2024 12:58 PM EST [facility] Blood Venous blood specimen / Unknown Venipuncture / Unknown 02/02/2024 5:08 AM EST 02/02/2024 10:37 AM EST us Yoav Osorio MD LAB BLOOD ORDERABLES Final Resu lt [facility] [address] [place] [address], documented in this encounter Visit Diagnoses Diagnosis Essential (primary) hypertension Unspecified essential hypertension documented in this encounter Additional Health Concerns Infection Onset Date Last Indicated Resolved Time ESBL 03/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
--- OUTSIDE RECORDS SUMMARY | 2025-01-04 18:55 | XMS_ITS | Encounter Summary ---
Author Organization [employer] Address [address] [place] [address] Care Team Providers Care Guyline Operator Name Role Phone Lauren Wiley MD Primary Care Provider + Encounter Details Date Type Department Care Team (Late st Contact Info) Description 03/29/2024 Lab Requisition [facility] - Main Lab [address] [place] [address] Lauren Wiley MD 819 [facility] 1 [place] [address] Hematuria, unspecified; Acute kidney failure, unspecified [...] AM EST) WBC 3.7(L) 4.8 - 10.8 K/[facility] LAB HEMETOLOGY METHOD 03/29/2024 10:59 AM [facility] LAB RBC 3.20(L) 4.50 - 5.50 M/mcL LAB HEMETOLOGY METHOD 03/29/2024 10:59 AM [facility] Hemoglobin 10.4(L) 13.5 - 17.5 g/dL LAB HEMETOLOGY METHOD 03/29/2024 10:59 AM [facility] LAB Hematocrit 32.4(L) 42.0 - 54.0 % LAB HEMETOLOGY METHOD 03/29/2024 10:59 AM [facility] LAB MCV 100.6(H) 79.0 - 98.0 FL LAB HEMETOLOGY METHOD 03/29/2024 10:59 AM [facility] LAB MCH 32.3(H) 27.0 - 32.0 pcg LAB HEMETOLOGY METHOD 03/29/2024 10:59 AM [facility] LAB MCHC 32.1 32.0 - 37.0 g/dL LAB HEMETOLOGY METHOD 03/29/2024 10:59 AM [facility] LAB RDW 14.7 11.0 - 15.0 % LAB HEMETOLOGY METHOD 03/29/2024 10:59 AM [facility] LAB Platelets 162 130 - 400 K/mcL LAB HEMETOLOGY METHOD 03/29/2024 10:59 AM [facility] LAB MPV 9.8 7.0 - 11.0 FL LAB HEMETOLOGY METHOD 03/29/2024 10:59 AM [facility] LAB NRBC 0.0 <1.0 % LAB HEMETOLOGY METHOD 03/29/2024 10:59 AM [facility] NRBC Absolute 0.00 <0.10 K/mcL LAB HEMETOLOGY METHOD 03/29/2024 10:59 AM [facility] Neutrophils Relative 51.8 % LAB HEMETOLOGY METHOD 03/29/2024 10:59 AM [facility] Lymphocytes Relative 31.7 % LAB HEMETOLOGY METHOD 03/29/2024 10:59 AM [facility] Monocytes Relative 11.1 % LAB HEMETOLOGY METHOD 03/29/2024 10:59 AM [facility] Eosinophils Relative 4.1 % LAB HEMETOLOGY METHOD 03/29/2024 10:59 AM [facility] Basophils Relative 0.8 % LAB HEMETOLOGY METHOD 03/29/2024 10:59 AM [facility] Immature Granulocytes Relative 0.5 % LAB HEMETOLOGY METHOD 03/29/2024 10:59 AM [facility] Neutrophils Absolute 1.91 1.50 - 7.00 K/mcL LAB HEMETOLOGY METHOD 03/29/2024 10:59 AM [facility] Lymphocytes Absolute 1.17 1.00 - 5.00 K/mcL LAB HEMETOLOGY METHOD 03/29/2024 10:59 AM [facility] Monocytes Absolute 0.41 0.20 - 1.00 K/mcL LAB HEMETOLOGY METHOD 03/29/2024 10:59 AM [facility] Eosinophils Absolute 0.15 0.00 - 0.50 K/mcL LAB HEMETOLOGY METHOD 03/29/2024 10:59 AM [facility] Basophils Absolute 0.03 0.00 - 0.20 K/mcL LAB HEMETOLOGY METHOD 03/29/2024 10:59 AM [facility] Immature Granulocytes Absolute 0.02 0.00 - 0.03 K/mcL LAB HEMETOLOGY METHOD 03/29/2024 10:59 AM [facility] Blood Venous blood specimen / Unknown Venipuncture / Unknown 03/29/2024 7:56 AM EST 03/29/2024 10:14 AM EST us Lauren Wiley MD LAB BLOOD ORDERABLES Fin al Result [facility] [address] [place] [address], * (ABNORMAL) Comprehensive metabolic panel (03/29/2024 7:56 AM EST) Sodium 140 133 - 145 mmol/L LAB CHEMISTRY METHOD 03/29/2024 1:43 PM [facility] Potassium 4.9 3.5 - 5.5 mmol/L LAB CHEMISTRY METHOD 03/29/2024 1:43 PM [facility] Comment:Hemolysis present Chloride 109 96 - 110 mmol/L LAB CHEMISTRY METHOD 03/29/2024 1:43 PM [facility] CO2 25 21 - 32 mmol/L LAB CHEMISTRY METHOD 03/29/2024 1:43 PM [facility] Anion Gap 6 3 - 11 LAB CHEMISTRY METHOD 03/29/2024 1:43 PM [facility] Glucose 85 70 - 100 mg/dL LAB CHEMISTRY METHOD 03/29/2024 1:43 PM [facility] BUN 34(H) 5 - 25 mg/dL LAB CHEMISTRY METHOD 03/29/2024 1:43 PM [facility] Creatinine 1.07 0.70 - 1.30 mg/dL LAB CHEMISTRY METHOD 03/29/2024 1:43 PM [facility] LAB eGFR 75 >=60 mL/min/1. 73m2 LAB CHEMISTRY METHOD 03/29/2024 1:43 PM [facility] Comment:Calculation based on the Chronic Kidney Disease Epidemiology Collaboration (CKD-EPI) equation refit without adjustment for race. BUN/Creatinine Ratio 31.8 LAB CHEMISTRY METHOD 03/29/2024 1:43 PM [facility] Calcium 9.1 8.5 - 10.5 mg/dL LAB CHEMISTRY METHOD 03/29/2024 1:43 PM [facility] AST (SGOT) 25 10 - 42 unit/L LAB CHEMISTRY METHOD 03/29/2024 1:43 PM [facility] Comment:Hemolysis present ALT (SGPT) 28 10 - 60 unit/L LAB CHEMISTRY METHOD 03/29/2024 1:43 PM [facility] Alkaline Phosphatase 91 42 - 121 unit/L LAB CHEMISTRY METHOD 03/29/2024 1:43 PM [facility] Total Protein 6.1 6.0 - 8.0 g/dL LAB CHEMISTRY METHOD 03/29/2024 1:43 PM [facility] Albumin 2.4(L) 3.2 - 5.0 g/dL LAB CHEMISTRY METHOD 03/29/2024 1:43 PM [facility] Total Bilirubin 0.4 0.0 - 1.4 mg/dL LAB CHEMISTRY METHOD 03/29/2024 1:43 PM [facility] Blood Venous blood specimen / Unknown Venipuncture / Unknown 03/29/2024 7:56 AM EST 03/29/2024 10:14 AM EST Lauren Wiley MD LAB BLOOD ORDERABLES Fin al Result [facility] [address] [place] [address], documented in this encounter Visit Diagnoses Diagnosis Hematuria, unspecified Acute kidney failure, unspecified (CMS/HCC V24) Acute kidney failure, unspecified documented in this encounter Additional Health Concerns 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
--- OUTSIDE RECORDS SUMMARY | 2025-01-04 18:55 | XMS_ITS | Encounter Summary ---
Author Organization [employer] Address [address] [place] [address] Care Team Providers Care Operations Representative Name Role Phone Lauren Wiley MD Primary Care Provider + Encounter Details Date Type Department Care Team (Late st Contact Info) Description 12/13/2024 Lab Requisition [facility] Lab [address] [place] [address] Lauren Wiley MD [address] [phone] Anemia, unspecified Social History Tobacco Use Types [...] Associated Diagnosis Comments COMPLETE BLOOD COUNT Routine 12/14/2024 7:37 AM EDT Anemia, unspecified BASIC METABOLIC PANEL Routine 12/14/2024 7:37 AM EDT Anemia, unspecified documented in this encounter Results * (ABNORMAL) Complete blood count (12/14/2024 7:37 AM EDT) WBC 5.3 4.8 - 10.8 K/[facility] LAB HEMETOLOGY METHOD 12/14/2024 9:15 AM EDT [facility] RBC 2.90(L) 4.50 - 5.50 M/[facility] LAB HEMETOLOGY METHOD 12/14/2024 9:15 AM EDT [facility] Hemoglobin 8.8(L) 13.5 - 17.5 g/dL LAB HEMETOLOGY METHOD 12/14/2024 9:15 AM EDT [facility] Hematocrit 28.3(L) 42.0 - 54.0 % LAB HEMETOLOGY METHOD 12/14/2024 9:15 AM [facility] MCV 98.6(H) 79.0 - 98.0 FL LAB HEMETOLOGY METHOD 12/14/2024 9:15 AM EDT [facility] MCH 30.7 27.0 - 32.0 pcg LAB HEMETOLOGY METHOD 12/14/2024 9:15 AM EDT [facility] MCHC 31.1(L) 32.0 - 37.0 g/dL LAB HEMETOLOGY METHOD 12/14/2024 9:15 AM [facility] RDW 15.5(H) 11.0 - 15.0 % LAB HEMETOLOGY METHOD 12[facility] Platelets 187 130 - 400 K/mcL LAB HEMETOLOGY METHOD 12/14/2024 9:15 AM T [facility] MPV 9.8 7.0 - 11.0 FL LAB HEMETOLOGY METHOD 12/14/2024 9:15 AM [facility] NRBC 0.0 <1.0 % LAB HEMETOLOGY METHOD 12/14/2024 9:15 AM T [facility] NRBC Absolute 0.00 <0.10 K/mcL LAB HEMETOLOGY METHOD 12/14/2024 9:15 AM [facility] Blood Venous blood specimen / Unknown Venipuncture / Unknown 12/14/2024 7:37 AM EDT 12/14/2024 9:15 AM EDT us Lauren Wiley MD LAB BLOOD ORDERABLES Fin al Result [facility] [address] [place] [address], [place] [phone] * (ABNORMAL) Basic metabolic panel (12/14/2024 7:37 AM EDT) Sodium 141 133 - 145 mmol/L LAB CHEMISTRY METHOD 12/14/2024 10:43 AM [facility] Potassium 4.3 3.5 - 5.5 mmol/L LAB CHEMISTRY METHOD 12/14/2024 10:43 AM [facility] Chloride 111(H) 96 - 110 mmol/L LAB CHEMISTRY METHOD 12/14/2024 10:43 AM [facility] CO2 24 21 - 32 mmol/L LAB CHEMISTRY METHOD 12/14/2024 10:43 AM [facility] Anion Gap 6 3 - 11 LAB CHEMISTRY METHOD 12/14/2024 10:43 AM [facility] Glucose 95 70 - 100 mg/dL LAB CHEMISTRY METHOD 12/14/2024 10:43 AM [facility] BUN 39(H) 5 - 25 mg/dL LAB CHEMISTRY METHOD 12/14/2024 10:43 AM [facility] Creatinine 1.47(H) 0.70 - 1.30 mg/dL LAB CHEMISTRY METHOD 12/14/2024 10:43 AM [facility] eGFR 51(L) >=60 mL/min/1. 73m2 LAB CHEMISTRY METHOD 12/14/2024 10:43 AM [facility] Comment:Calculation based on the Chronic Kidney Disease Epidemiology Collaboration (CKD-EPI) equation refit without adjustment for race. 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
--- OUTSIDE RECORDS SUMMARY | 2025-01-04 18:55 | XMS_ITS | Encounter Summary ---
Author Organization [employer] Address [address] [place] [address] Care Team Providers Care Coding Director Name Role Phone Lauren Wiley MD Primary Care Provider + Encounter Details Date Type Department Care Team (Late st Contact Info) Description 01/28/2024 Lab Requisition [facility] Lab [address] [place] [address] Luaren Wiley MD [address] [phone] Elevated white blood cell count, unspecified Social [...] mmol/L LAB CHEMISTRY METHOD 01/28/2024 11:23 AM [facility] LAB CO2 25 21 - 32 mmol/L LAB CHEMISTRY METHOD 01/28/2024 11:23 AM [facility] LAB Anion Gap 5 3 - 11 LAB CHEMISTRY METHOD 01/28/2024 11:23 AM [facility] LAB Glucose 94 70 - 100 mg/dL LAB CHEMISTRY METHOD 01/28/2024 11:23 AM [facility] LAB BUN 17 5 - 25 mg/dL LAB CHEMISTRY METHOD 01/28/2024 11:23 AM [facility] LAB Creatinine 0.83 0.70 - 1.30 mg/dL LAB CHEMISTRY METHOD 01/28/2024 11:23 AM [facility] LAB eGFR 95 >=60 mL/min/1. 73m2 LAB CHEMISTRY METHOD 01/28/2024 11:23 AM [facility] LAB Comment:Calculation based on the Chronic Kidney Disease Epidemiology Collaboration (CKD-EPI) equation refit without adjustment for race. BUN/Creatinine Ratio 20.5 LAB CHEMISTRY METHOD 01/28/2024 11:23 AM [facility] LAB Calcium 8.3(L) 8.5 - 10.5 mg/dL LAB CHEMISTRY METHOD 01/28/2024 11:23 AM [facility] LAB Blood Venous blood specimen / Unknown Venipuncture / Unknown 01/28/2024 5:27 AM EST 01/28/2024 10:37 AM EST us Lauren Wiley MD LAB BLOOD ORDERABLES Fin al Result [facility] LAB [address] [place] [address], * (ABNORMAL) Complete blood count (01/28/2024 5:27 AM EST) WBC 4.2(L) 4.8 - 10.8 K/mcL LAB HEMETOLOGY METHOD 01/28/2024 11:22 AM [facility] LAB RBC 3.40(L) 4.50 - 5.50 M/mcL LAB HEMETOLOGY METHOD 01/28/2024 11:22 AM [facility] LAB Hemoglobin 10.5(L) 13.5 - 17.5 g/dL LAB HEMETOLOGY METHOD 01/28/2024 11:22 AM [facility] LAB Hematocrit 32.3(L) 42.0 - 54.0 % LAB HEMETOLOGY METHOD 01/28/2024 11:22 AM [facility] LAB MCV 96.4 79.0 - 98.0 FL LAB HEMETOLOGY METHOD 01/28/2024 11:22 AM [facility] LAB MCH 31.3 27.0 - 32.0 pcg LAB HEMETOLOGY METHOD 01/28/2024 11:22 AM [facility] LAB MCHC 32.5 32.0 - 37.0 g/dL LAB HEMETOLOGY METHOD 01/28/2024 11:22 AM [facility] LAB RDW 14.4 11.0 - 15.0 % LAB HEMETOLOGY METHOD 01/28/2024 11:22 AM [facility] LAB Platelets 132 130 - 400 K/mcL LAB HEMETOLOGY METHOD 01/28/2024 11:22 AM [facility] LAB MPV 9.7 7.0 - 11.0 FL LAB HEMETOLOGY METHOD 01/28/2024 11:22 AM [facility] LAB NRBC 0.0 <1.0 % LAB HEMETOLOGY METHOD 01/28/2024 11:22 AM [facility] LAB NRBC Absolute 0.00 <0.10 K/mcL LAB HEMETOLOGY METHOD 01/28/2024 11:22 AM [facility] LAB Blood Venous blood specimen / Unknown Venipuncture / Unknown 01/28/2024 5:27 AM EST 01/28/2024 10:37 AM EST us Lauren Wiley MD LAB BLOOD ORDERABLES Fin al Result 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
--- OUTSIDE RECORDS SUMMARY | 2025-01-04 18:55 | XMS_ITS | Encounter Summary ---
Author Organization [email or web address] Address [address] [place] [address] Care Team Providers Care Flat Surfacer Jewel Name Role Phone Lauren Wiley MD Primary Care Provider + Encounter Details Date Type Department Care Team (Late st Contact Info) Description 03/15/2024 Lab Requisition [facility] - Main Lab [address] [place] [address] Lauern Wiley MD [address] [phone] Essential (primary) hypertension; Anemia, unspecified Social History [...] 3:35 PM EST [facility] LAB Chloride 114(H) 96 - 110 [...] refit without adjustment for race. 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
--- OUTSIDE RECORDS SUMMARY | 2025-01-04 18:55 | XMS_ITS | Encounter Summary ---
Author Organization [employer] Address [address] [place] [address] Care Team Providers Care Tuck Pointer Helper Name Role Phone Lauren Wiley MD Primary Care Provider + Encounter Details Date Type Department Care Team (Late st Contact Info) Description 11/22/[address] [facility] Lab [address] [place] [address] Lauren Wiley MD [address] [phone] Anemia, unspecified Social History Tobacco Use Types [...] Associated Diagnosis Comments COMPLETE BLOOD COUNT Routine 11/23/2024 5:54 AM EDT Anemia, unspecified BASIC METABOLIC PANEL Routine 11/23/2024 5:54 AM EDT Anemia, unspecified documented in this encounter Results * (ABNORMAL) Basic metabolic panel (11/23/2024 5:54 AM EDT) Sodium 145 133 - 145 mmol/L LAB CHEMISTRY METHOD 11/23/2024 8:16 AM [facility] LAB Potassium 3.5 3.5 - 5.5 mmol/L LAB CHEMISTRY METHOD 11/23/2024 8:16 AM [facility] LAB Chloride 114(H) 96 - 110 mmol/L LAB CHEMISTRY METHOD 11/23/2024 8:16 AM [facility] LAB CO2 25 21 - 32 mmol/L LAB CHEMISTRY METHOD 11/23/2024 8:16 AM [facility] LAB Anion Gap 6 3 - 11 LAB CHEMISTRY METHOD 11/23/2024 8:16 AM [facility] LAB Glucose 171(H) 70 - 100 mg/dL LAB CHEMISTRY METHOD 11/23/2024 8:16 AM [facility] LAB BUN 51(H) 5 - 25 mg/dL LAB CHEMISTRY METHOD 11/23/2024 8:16 AM [facility] LAB Creatinine 1.39(H) 0.70 - 1.30 mg/dL LAB CHEMISTRY METHOD 11/23/2024 8:16 AM [facility] LAB eGFR 55(L) >=60 mL/min/1. 73m2 LAB CHEMISTRY METHOD 11/23/2024 8:16 AM [facility] LAB Comment:Calculation based on the Chronic Kidney Disease Epidemiology Collaboration (CKD-EPI) equation refit without adjustment for race. BUN/Creatinine Ratio 36.7 LAB CHEMISTRY METHOD 11/23/2024 8:16 AM [facility] LAB Calcium 8.9 8.5 - 10.5 mg/dL LAB CHEMISTRY METHOD 11/23/2024 8:16 AM [facility] LAB Blood Venous blood specimen / Unknown Venipuncture / Unknown 11/23/2024 5:54 AM EDT 11/23/2024 7:38 AM EDT us Lauren Wiley MD LAB BLOOD ORDERABLES Fin al Result [facility] LAB [address] [place] [address], * (ABNORMAL) Complete blood count (11/23/2024 5:54 AM EDT) WBC 5.8 4.8 - 10.8 K/[facility] LAB HEMETOLOGY METHOD 11/23/2024 7:57 AM [facility] LAB RBC 2.30(L) 4.50 - 5.50 M/[facility] LAB HEMETOLOGY METHOD 11/23/2024 7:57 AM [facility] LAB Hemoglobin 7.1(L) 13.5 - 17.5 g/dL LAB HEMETOLOGY METHOD 11/23/2024 7:57 AM [facility] LAB Hematocrit 22.7(L) 42.0 - 54.0 % LAB HEMETOLOGY METHOD 11/23/2024 7:57 AM [facility] LAB MCV 98.3(H) 79.0 - 98.0 FL LAB HEMETOLOGY METHOD 11/23/2024 7:57 AM [facility] LAB MCH 30.7 27.0 - 32.0 pcg LAB HEMETOLOGY METHOD 11/23/2024 7:57 AM [facility] LAB MCHC 31.3(L) 32.0 - 37.0 g/dL LAB HEMETOLOGY METHOD 11/23/2024 7:57 AM [facility] LAB RDW 14.6 11.0 - 15.0 % LAB HEMETOLOGY METHOD 11/23/2024 7:57 AM [facility] LAB Platelets 272 130 - 400 K/mcL LAB HEMETOLOGY METHOD 11/23/2024 7:57 AM [facility] LAB MPV 9.6 7.0 - 11.0 FL LAB HEMETOLOGY METHOD 11/23/2024 7:57 AM [facility] LAB NRBC 0.0 <1.0 % LAB HEMETOLOGY METHOD 11/23/2024 7:57 AM [facility] LAB NRBC Absolute 0.00 <0.10 K/[facility] LAB HEMETOLOGY METHOD 11/23/2024 7:57 AM [facility] LAB Blood Venous blood specimen / Unknown Venipuncture / Unknown 11/23/2024 5:54 AM EDT 11/23/2024 7:38 AM EDT Lauren Wiley MD LAB BLOOD ORDERABLES Fin al Result [facility] LAB [address] [place] [address], documented in this encounter Visit Diagnoses Diagnosis Anemia, unspecified documented in this encounter Additional Health Concerns 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
--- OUTSIDE RECORDS SUMMARY | 2025-01-04 18:55 | XMS_ITS | Encounter Summary ---
Author Organization [employer] Address [address] [place] [address] Care Team Providers Care Senior Benefits Specialist Name Role Phone Lauren Wiley MD Primary Care Provider + Encounter Details Date Type Department Care Team (Late st Contact Info) Description 09/08/2024 Lab Requisition [facility] - Main Lab [address] [place] [address] Lauren Wiley MD [address] [phone] Anemia, unspecified; Chronic kidney disease, unspecified Social History Tobacco [...] Associated Diagnosis Comments COMPLETE BLOOD COUNT Routine 09/08/2024 5:11 AM EDT Anemia, unspecified Chronic kidney disease, unspecified documented in this encounter Results * (ABNORMAL) Complete blood count (09/08/2024 5:11 AM EDT) WBC 6.4 4.8 - 10.8 K/mcL LAB HEMETOLOGY METHOD 09/08/2024 9:32 AM EDT [facility] LAB RBC 2.40(L) 4.50 - 5.50 M/mcL LAB HEMETOLOGY METHOD 09/08/2024 9:32 AM EDT [facility] LAB Hemoglobin 7.7(L) 13.5 - 17.5 g/dL LAB HEMETOLOGY METHOD 09/08/2024 9:32 AM EDT [facility] LAB Hematocrit 24.5(L) 42.0 - 54.0 % LAB HEMETOLOGY METHOD 09/08/2024 9:32 AM EDT [facility] LAB MCV 101.2(H) 79.0 - 98.0 FL LAB HEMETOLOGY METHOD 09/08/2024 9:32 AM EDT [facility] LAB MCH 31.8 27.0 - 32.0 pcg LAB HEMETOLOGY METHOD 09/08/2024 9:32 AM EDT [facility] LAB MCHC 31.4(L) 32.0 - 37.0 g/dL LAB HEMETOLOGY METHOD 09/08/2024 9:32 AM EDT [facility] LAB RDW 16.1(H) 11.0 - 15.0 % LAB HEMETOLOGY METHOD 09/08/2024 9:32 AM EDT [facility] LAB Platelets 261 130 - 400 K/mcL LAB HEMETOLOGY METHOD 09/08/2024 9:32 AM EDT [facility] LAB MPV 9.7 7.0 - 11.0 FL LAB HEMETOLOGY METHOD 09/08/2024 9:32 AM EDT [facility] LAB NRBC 0.0 <1.0 % LAB HEMETOLOGY METHOD 09/08/2024 9:32 AM EDT [facility] LAB NRBC Absolute 0.00 <0.10 K/mcL LAB HEMETOLOGY METHOD 09/08/2024 9:32 AM T [facility] LAB Blood Venous blood specimen / Unknown Venipuncture / Unknown 09/08/2024 5:11 AM EDT 09/08/2024 8:41 AM EDT us Lauren Wiley MD LAB BLOOD ORDERABLES Fin al Result [facility] LAB [address] [place] [address], documented in this encounter Visit Diagnoses Diagnosis Anemia, unspecified Chronic kidney disease, unspecified documented in this encounter Additional Health Concerns 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
--- OUTSIDE RECORDS SUMMARY | 2025-01-04 18:55 | XMS_ITS | Encounter Summary ---
Author Organization [employer] Address [address] [place] [address] Care Team Providers Care Level Glass Vial Filler Name Role Phone Lauren Wiley MD Primary Care Provider + Encounter Details Date Type Department Care Team (Late st Contact Info) Description 12/10/2024 Lab Requisition [facility] - Main Lab [address] [place] [address] Lauren Wiley MD [address] [phone] Essential (primary) hypertension; Chronic kidney disease, unspecified [...] Associated Diagnosis Comments COMPLETE BLOOD COUNT Routine 12/11/2024 9:03 AM EDT Essential (primary) hypertension Chronic kidney disease, unspecified CREATINE KINASE Routine 12/11/2024 9:03 AM EDT Essential (primary) hypertension Chronic kidney disease, unspecified COMPREHENSIVE METABOLIC PANEL Routine 12/11/2024 9:03 AM EDT Essential (primary) hypertension Chronic kidney disease, unspecified documented in this encounter Results * (ABNORMAL) Comprehensive metabolic panel (12/11/2024 9:03 AM EDT) Sodium 141 133 - 145 mmol/L LAB CHEMISTRY METHOD 12/11/2024 12:16 PM EDT [facility] Potassium 4.4 3.5 - 5.5 mmol/L LAB CHEMISTRY METHOD 12/11/2024 12:[address] [facility] Chloride 111(H) 96 - 110 mmol/L LAB CHEMISTRY METHOD 12/11/2024 12:[address] [facility] LAB CO2 24 21 - 32 mmol/L LAB CHEMISTRY METHOD 12/11/2024 12:[address] [facility] LAB Anion Gap 6 3 - 11 LAB CHEMISTRY METHOD 12/11/2024 12:[address] [facility] LAB Glucose 130(H) 70 - 100 mg/dL LAB CHEMISTRY METHOD 12/11/2024 12:[address] [facility] LAB BUN 40(H) 5 - 25 mg/dL LAB CHEMISTRY METHOD 12/11/2024 12:[address] [facility] LAB Creatinine 1.69(H) 0.70 - 1.30 mg/dL LAB CHEMISTRY METHOD 12/11/2024 12:[address] [facility] LAB eGFR 43(L) >=60 mL/min/1. 73m2 LAB CHEMISTRY METHOD 12/11/2024 12:[address] [facility] LAB Comment:Calculation based on the Chronic Kidney Disease Epidemiology Collaboration (CKD-EPI) equation refit without adjustment for race. BUN/Creatinine Ratio 23.7 LAB CHEMISTRY METHOD 12/11/2024 12:[address] [facility] LAB Calcium 8.7 8.5 - 10.5 mg/dL LAB CHEMISTRY METHOD 12/11/2024 12:[address] [facility] LAB AST (SGOT) 24 10 - 42 unit/L LAB CHEMISTRY METHOD 12/11/2024 12:[address] [facility] LAB ALT (SGPT) 24 10 - 60 unit/L LAB CHEMISTRY METHOD 12/11/2024 12:[address] [facility] LAB Alkaline Phosphatase 101 42 - 121 unit/L LAB CHEMISTRY METHOD 12/11/2024 12:16 [facility] Total Protein 6.2 6.0 - 8.0 g/dL LAB CHEMISTRY METHOD 12/11/2024 12:[address] [facility] LAB Albumin 1.8(L) 3.2 - 5.0 g/dL LAB CHEMISTRY METHOD 12/11/2024 12:[address] [facility] Total Bilirubin 0.4 0.0 - 1.4 mg/dL LAB CHEMISTRY METHOD 12/11/2024 12:[address] [facility] LAB Blood Venous blood specimen / Unknown Venipuncture / Unknown 12/11/2024 9:03 AM EDT 12/11/2024 10:41 AM EDT us Lauren Wiley MD LAB BLOOD ORDERABLES Fin al Result [facility] [address] [place] [address], * (ABNORMAL) Complete blood count (12/11/2024 9:03 AM EDT) WBC 4.8 4.8 - 10.8 K/mcL LAB HEMETOLOGY METHOD 12/11/2024 11:[address] [facility] LAB RBC 2.70(L) 4.50 - 5.50 M/mcL LAB HEMETOLOGY METHOD 12/11/2024 11:[address] [facility] LAB Hemoglobin 8.3(L) 13.5 - 17.5 g/dL LAB HEMETOLOGY METHOD 12/11/2024 11:[address] [facility] LAB Hematocrit 26.9(L) 42.0 - 54.0 % LAB HEMETOLOGY METHOD 12/11/2024 11:[address] [facility] LAB MCV 98.9(H) 79.0 - 98.0 FL LAB HEMETOLOGY METHOD 12/11/2024 11:[address] [facility] LAB MCH 30.5 27.0 - 32.0 pcg LAB HEMETOLOGY METHOD 12/11/2024 11:16 AM EDT [facility] MCHC 30.9(L) 32.0 - 37.0 g/dL LAB HEMETOLOGY METHOD 12/11/2024 11:16 AM EDT [facility] RDW 15.7(H) 11.0 - 15.0 % LAB HEMETOLOGY METHOD 12/11/2024 11:16 AM EDT [facility] Platelets 213 130 - 400 K/mcL LAB HEMETOLOGY METHOD 12/11/2024 11:16 AM EDT [facility] MPV 9.9 7.0 - 11.0 FL LAB HEMETOLOGY METHOD 12/11/2024 11:16 AM EDT [facility] NRBC 0.0 <1.0 % LAB HEMETOLOGY METHOD 12/11/2024 11:16 AM EDT [facility] NRBC Absolute 0.00 <0.10 K/mcL LAB HEMETOLOGY METHOD 12/11/2024 11:16 AM EDT [facility] Blood Venous blood specimen / Unknown Venipuncture / Unknown 12/11/2024 9:03 AM EDT 12/11/2024 10:40 AM EDT us Lauren Wiley MD LAB BLOOD ORDERABLES Fin al Result [facility] [address] [place] [address], * Creatine kinase (12/11/2024 9:03 AM EDT) Total CK 113 22 - 269 unit/L LAB CHEMISTRY METHOD 12/11/2024 12:31 PM EDT [facility] Comment:Results verified by repeat testing Blood Venous blood specimen / Unknown Venipuncture / Unknown 12/11/2024 9:03 AM EDT 12/11/2024 10:41 AM EDT us Lauren Wiley MD LAB BLOOD ORDERABLES Fin al Result [facility] ([facility]) [facility] [address] [place] [address], documented in this encounter Visit Diagnoses Diagnosis Essential (primary) hypertension Unspecified essential hypertension Chronic kidney disease, unspecified documented in this encounter Additional Health Concerns 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
--- OUTSIDE RECORDS SUMMARY | 2025-01-04 18:55 | XMS_ITS | Encounter Summary ---
Author Organization [employer] Address [address] [place] [address] Care Team Providers Care Railroad Car Inspector Name Role Phone Lauren Wiley MD Primary Care Provider + Encounter Details Date Type Department Care Team (Late st Contact Info) Description 12/29/[address] [facility] - Main Lab [address] [place] [address] Lauren Wiley MD [address] [phone] Essential (primary) hypertension; Chronic kidney disease, unspecified [...] Associated Diagnosis Comments COMPLETE BLOOD COUNT Routine 01/01/2025 8:54 AM EST Essential (primary) hypertension Chronic kidney disease, unspecified CREATINE KINASE Routine 01/01/2025 8:54 AM EST Essential (primary) hypertension Chronic kidney disease, unspecified COMPREHENSIVE METABOLIC PANEL Routine 01/01/2025 8:54 AM EST Essential (primary) hypertension Chronic kidney disease, unspecified documented in this encounter Results * (ABNORMAL) Complete blood count (01/01/2025 8:54 AM EST) WBC 4.2(L) 4.8 - 10.8 K/mcL LAB HEMETOLOGY METHOD 01/01/2025 11:14 AM EST [facility] LAB RBC 2.50(L) 4.50 - 5.50 M/mcL LAB HEMETOLOGY METHOD 01/01/2025 11:14 AM [facility] LAB Hemoglobin 7.8(L) 13.5 - 17.5 g/dL LAB HEMETOLOGY METHOD 01/01/2025 11:14 AM [facility] LAB Hematocrit 25.1(L) 42.0 - 54.0 % LAB HEMETOLOGY METHOD 01/01/2025 11:14 AM [facility] LAB MCV 100.0(H) 79.0 - 98.0 FL LAB HEMETOLOGY METHOD 01/01/2025 11:14 AM [facility] LAB MCH 31.1 27.0 - 32.0 pcg LAB HEMETOLOGY METHOD 01/01/2025 11:14 AM [facility] LAB MCHC 31.1(L) 32.0 - 37.0 g/dL LAB HEMETOLOGY METHOD 01/01/2025 11:14 AM [facility] LAB RDW 16.0(H) 11.0 - 15.0 % LAB HEMETOLOGY METHOD 01/01/2025 11:14 AM [facility] LAB Platelets 153 130 - 400 K/mcL LAB HEMETOLOGY METHOD 01/01/2025 11:14 AM [facility] LAB MPV 9.4 7.0 - 11.0 FL LAB HEMETOLOGY METHOD 01/01/2025 11:14 AM [facility] NRBC 0.0 <1.0 % LAB HEMETOLOGY METHOD 01/01/2025 11:14 AM [facility] NRBC Absolute 0.00 <0.10 K/mcL LAB HEMETOLOGY METHOD 01/01/2025 11:14 AM [facility] Blood Venous blood specimen / Unknown Venipuncture / Unknown 01/01/2025 8:54 AM EST 01/01/2025 10:58 AM EST Lauren Wiely MD LAB BLOOD ORDERABLES Fin al Result Performing Organization Address City/[facility]/ZIP Co de Phone Number [facility] [address] [place] [address], [place] [phone] * Creatine kinase (01/01/2025 8:54 AM EST) [facility] Total CK 33 22 - 269 unit/L LAB CHEMISTRY METHOD 01/01/2025 12:22 PM [facility] Blood Venous blood specimen / Unknown Venipuncture / Unknown 01/01/2025 8:54 AM EST 01/01/2025 10:58 AM EST Lauren Wiley MD LAB BLOOD ORDERABLES Fin al Result Performing Organization Address [facility] de Phone Number [facility] [address] [place] [address], [place] [phone] * (ABNORMAL) Comprehensive metabolic panel (01/01/2025 8:54 AM EST) [facility] Sodium 143 133 - 145 mmol/L LAB CHEMISTRY METHOD 01/01/2025 12:22 PM [facility] Potassium 4.0 3.5 - 5.5 mmol/L LAB CHEMISTRY METHOD 01/01/2025 12:22 PM [facility] Chloride 114(H) 96 - 110 mmol/L LAB CHEMISTRY METHOD 01/01/2025 12:22 PM [facility] CO2 22 21 - 32 mmol/L LAB CHEMISTRY METHOD 01/01/2025 12:22 PM [facility] Anion Gap 7 3 - 11 LAB CHEMISTRY METHOD 01/01/2025 12:22 PM [facility] Glucose 147(H) 70 - 100 mg/dL LAB CHEMISTRY METHOD 01/01/2025 12:22 PM [facility] BUN 59(H) 5 - 25 mg/dL LAB CHEMISTRY METHOD 01/01/2025 12:22 PM [facility] Creatinine 1.68(H) 0.70 - 1.30 mg/dL LAB CHEMISTRY METHOD 01/01/2025 12:22 PM [facility] eGFR 43(L) >=60 mL/min/1. 73m2 LAB CHEMISTRY METHOD 01/01/2025 12:22 PM [facility] Comment:Calculation based on the Chronic Kidney Disease Epidemiology Collaboration (CKD-EPI) equation refit without adjustment for race. BUN/Creatinine Ratio 35.1 LAB CHEMISTRY METHOD 01/01/2025 12:22 PM [facility] Calcium 9.3 8.5 - 10.5 mg/dL LAB CHEMISTRY METHOD 01/01/2025 12:22 PM [facility] AST (SGOT) 15 10 - 42 unit/L LAB CHEMISTRY METHOD 01/01/2025 12:22 PM [facility] ALT (SGPT) 22 10 - 60 unit/L LAB CHEMISTRY METHOD 01/01/2025 12:22 PM [facility] Alkaline Phosphatase 98 42 - 121 unit/L LAB CHEMISTRY METHOD 01/01/2025 12:22 PM [facility] Total Protein 5.6(L) 6.0 - 8.0 g/dL LAB CHEMISTRY METHOD 01/01/2025 12:22 PM [facility] Albumin 1.8(L) 3.2 - 5.0 g/dL LAB CHEMISTRY METHOD 01/01/2025 12:22 PM [facility] Total Bilirubin 0.2 0.0 - 1.4 mg/dL LAB CHEMISTRY METHOD 01/01/2025 12:22 PM [facility] Blood Venous blood specimen / Unknown Venipuncture / Unknown 01/01/2025 8:54 AM EST 01/01/2025 10:58 AM EST Lauren Wiley MD LAB BLOOD ORDERABLES Fin al Result Performing Organization Address [facility]/State/ZIP Co de Phone Number [facility] ([facility] [address] [place] [address], documented in this encounter Visit Diagnoses Diagnosis Essential (primary) hypertension Unspecified essential hypertension Chronic kidney disease, unspecified documented in this encounter Additional Health Concerns 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
--- OUTSIDE RECORDS SUMMARY | 2025-01-04 18:55 | XMS_ITS | Clinical Summary ---
Author Organization [address] [facility] Address [address] [place] [address] Phone Care Team Providers Care Triage Technician Name Role Phone Lauren Wiley MD Primary Care Provider + Encounters Date Type Department Care Team Description 01/03/[address] [facility] Lab [address] [place] [address] Lauren Wiley MD Anemia, unspecified 01/01/[address] [facility] Lab [address] [place] [address] Lauren Wiley MD Hematuria, unspecified 12/29/[address] [facility] Lab [address] [place] [address] Lauren Wiley MD Essential (primary) hypertension; Chronic kidney disease, unspecified 12/27/2024 Lab Requisition [facility] Lab [address] [place] [address] Lauren Wiley MD Anemia, unspecified 12/22/2024 Lab Requisition [facility] Main Lab [address] [place] [address] Lauren Wiley MD Essential (primary) hypertension; Chronic kidney disease, unspecified 12/20/[address] [facility] Lab [address] [place] [address] Lauren Wiley MD Anemia, unspecified 12/15/2024 Lab Requisition [facility] Main Lab [address] [place] [address] Lauren Wiley MD Essential (primary) hypertension; Chronic kidney disease, unspecified 12/13/2024 Lab Requisition [facility] Lab [address] [place] [address] Lauren Wiley MD Anemia, unspecified 12/10/2024 Lab Requisition [facility] Main Lab [address] [place] [address] Lauren Wiley MD Essential (primary) hypertension; Chronic kidney disease, unspecified 12/06/2024 Lab Requisition [facility] Main Lab [address] [place] [address] Lauren Wiley MD Anemia, unspecified 12/05/2024 Lab Requisition [facility] Lab [address] [place] [address] Lauren Wiley MD 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, CMS/HCC V28); Chronic kidney disease, unspecified 12/03/[address] [facility] Lab [address] [place] [address] Lauren Wiley MD Essential (primary) hypertension; Chronic kidney disease, unspecified 12/01/2024 Lab Requisition [facility] Main Lab [address] [place] [address] Lauren Wiley MD Essential (primary) hypertension; Chronic kidney disease, unspecified 11/29/2024 Lab Requisition [facility] Lab [address] [place] [address] Lauren Wiley MD Anemia, unspecified 11/24/2024 Lab Requisition [facility] Lab [address] [place] [address] Lauren Wiley MD Essential (primary) hypertension; Chronic kidney disease, unspecified 11/22/2024 Lab Requisition [facility] Main Lab [address] [place] [address] Lauren Wiley MD Anemia, unspecified 11/18/[address] [facility] Lab [address] [place] [address] Lauren Wiley MD Essential (primary) hypertension; Chronic kidney disease, unspecified 11/15/[address] [facility] Lab [address] [place] [address] Lauren Wiley MD Anemia, unspecified 11/12/[address] [facility] Lab [address] [place] [address] Lauren Wiley MD Essential (primary) hypertension; Chronic kidney disease, unspecified 11/08/[address] [facility] Lab [address] [place] [address] Lauren Wiley MD Anemia, unspecified 11/07/[address] [facility] Lab [address] [place] [address] Lauren Wiley MD Essential (primary) hypertension; Chronic kidney disease, unspecified 11/05/[address] [facility] [address] [place] [address] Lauren Wiley MD Essential (primary) hypertension; Chronic kidney disease, unspecified 11/01/[address] [facility] [address] [place] [address] Lauren Wiley MD Anemia, unspecified 10/28/[address] [facility] [address] [place] [address] Lauren Wiley MD Essential (primary) hypertension; Chronic kidney disease, unspecified 10/28/[address] [facility] Lab [address] [place] [address] Lauren Wiley MD Essential (primary) hypertension; Chronic kidney disease, unspecified 10/27/[address] [facility] [address] [place] [address] Lauren Wiley MD Hyperlipidemia, unspecified 10/25/[address] [facility] Lab [address] [place] [address] Lauren Wiley MD Anemia, unspecified 10/20/[address] [facility] Lab [address] [place] [address] Lauren Wiley MD Essential (primary) hypertension; Chronic kidney disease, unspecified 10/18/[address] [facility] Lab [address] [place] [address] Lauren Wiley MD Anemia, unspecified 10/13/[address] [facility] Lab [address] [place] [address] Lauren Wiley MD Essential (primary) hypertension; Chronic kidney disease, unspecified 10/13/[address] [facility] [address] [place] [address] Lauren Wiley MD Anemia, unspecified 10/12/[address] [facility] [address] [place] [address] Lauren Wiley MD Anemia, unspecified 10/11/[address] [facility] [address] [place] [address] Lauren Wiley MD Anemia, unspecified 10/10/[address] [facility] [address] [place] [phone] Lauren Wiley MD Essential (primary) hypertension; Chronic kidney disease, unspecified 10/07/[address] [facility] [address] [place] [address] Lauren Wiley MD Essential (primary) hypertension; Chronic kidney disease, unspecified 10/04/[address] [facility] [address] [place] [address] Lauren Wiley MD Anemia, unspecified from Last 3 Months Social History Tobacco Use Types Packs/Day Years Used Date Smoking Tobacco: Never Assessed Sex and Gender Information Value Date Recorded Sex Assigned at Not on file Legal Sex Male 4:31 AM EST Gender Identity Not on file Sexual Orientation Not on file Plan of Treatment Health Maintenance Due Date Last Done Comments Colorectal Cancer Screening: Colonoscopy 1954 Diabetes: Annual Foot Exam 1964 Diabetes: Annual Retina Eye Exam 1964 DTaP,Tdap,and Td Vaccines (1 - Tdap) 1973 Pneumococcal Vaccine: 50+ Years (1 of 2 - PCV) 1973 Zoster Vaccines (1 of 2) 2004 Abdominal Aortic Aneurysm (AAA) Screen 01/25/2022 Falls Risk Assessment 01/25/2022 Hepatitis C Screening 01/25/2022 Medicare Annual Wellness Visit 01/25/2022 Social Influencers of Health Screening 01/25/2022 Depression Screening 02/23/2024 COVID-19 Vaccine ( season) 2024 Influenza Vaccine (#1) 2024 Diabetes: Annual Urine Albumin-Creatinine Ratio (uACR) 12/05/2024 Diabetes: Blood Sugar Control Test (HGBA1C) 12/05/2024 Diabetes: Annual GFR (Glomerular Filtration Rate) 01/01/2026 01/01/2025, 12/28/2024, 12/25/2024, Additional history exists Hypertension/CHF/CAD Annual BMP Blood Test 01/01/2026 01/01/2025, 12/28/2024, 12/25/2024, Additional history exists RSV Immunization Adult Patients (1 - 1-dose 75+ series) 2029 Cholesterol Screening (Lipid Panel) 10/27/2029 10/27/2024 HIB Vaccines Aged Out No longer eligi [...] Essential (primary) hypertension Chronic kidney disease, unspecified URINALYSIS WITH REFLEX MICROSCOPIC Routine 12/31/2024 5:45 PM EST Hematuria, unspecified URINALYSIS WITH REFLEX MICROSCOPIC Routine 12/31/2024 5:45 PM EST Hematuria, unspecified CULTURE URINE Routine 12/31/2024 5:45 PM EST Hematuria, unspecified BASIC METABOLIC PANEL Routine 12/28/2024 5:35 AM EST Anemia, unspecified COMPLETE BLOOD COUNT Routine 12/28/2024 5:35 AM EST Anemia, unspecified COMPLETE BLOOD COUNT Routine 12/25/2024 9:03 AM EST Essential (primary) hypertension Chronic kidney disease, unspecified CREATINE KINASE Routine 12/25/2024 9:03 AM EST Essential (primary) hypertension Chronic kidney disease, unspecified COMPREHENSIVE METABOLIC PANEL Routine 12/25/2024 9:03 AM EST Essential (primary) hypertension Chronic kidney disease, unspecified COMPLETE BLOOD COUNT Routine 12/21/2024 8:49 AM EDT Anemia, unspecified BASIC METABOLIC PANEL Routine 12/21/2024 8:49 AM EDT Anemia, unspecified COMPLETE BLOOD COUNT Routine 12/18/2024 8:50 AM EDT Essential (primary) hypertension Chronic kidney disease, unspecified CREATINE KINASE Routine 12/18/2024 8:50 AM EDT Essential (primary) hypertension Chronic kidney disease, unspecified COMPREHENSIVE METABOLIC PANEL Routine 12/18/2024 8:50 AM EDT Essential (primary) hypertension Chronic kidney disease, unspecified COMPLETE BLOOD COUNT Routine 12/14/2024 7:37 AM EDT Anemia, unspecified BASIC METABOLIC PANEL Routine 12/14/2024 7:37 AM EDT Anemia, unspecified COMPREHENSIVE METABOLIC PANEL Routine 12/11/2024 9:03 AM EDT Essential (primary) hypertension Chronic kidney disease, unspecified COMPLETE BLOOD COUNT Routine 12/11/2024 9:03 AM EDT Essential (primary) hypertension Chronic kidney disease, unspecified CREATINE KINASE Routine 12/11/2024 9:03 AM EDT Essential (primary) hypertension Chronic kidney disease, unspecified COMPLETE BLOOD COUNT Routine 12/07/2024 4:52 AM EDT Anemia, unspecified BASIC METABOLIC PANEL Routine 12/07/2024 4:52 AM EDT Anemia, unspecified BASIC METABOLIC PANEL Routine 12/05/2024 6:55 AM EDT 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, CMS/HCC V28) Chronic kidney disease, unspecified COMPLETE BLOOD COUNT Routine 12/05/2024 6:55 AM EDT 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, CMS/HCC V28) Chronic kidney disease, unspecified COMPLETE BLOOD COUNT Routine 12/04/2024 8:34 AM EDT Essential (primary) hypertension Chronic kidney disease, unspecified CREATINE KINASE Routine 12/04/2024 8:34 AM EDT Essential (primary) hypertension Chronic kidney disease, unspecified COMPREHENSIVE METABOLIC PANEL Routine 12/04/2024 8:34 AM EDT Essential (primary) hypertension Chronic kidney disease, unspecified COMPREHENSIVE METABOLIC PANEL Routine 12/01/2024 5:09 AM EDT Essential (primary) hypertension Chronic kidney disease, unspecified COMPLETE BLOOD COUNT Routine 12/01/2024 5:09 AM EDT Essential (primary) hypertension Chronic kidney disease, unspecified COMPLETE BLOOD COUNT Routine 11/30/2024 5:05 AM EDT Anemia, unspecified BASIC METABOLIC PANEL Routine 11/30/2024 5:05 AM EDT Anemia, unspecified COMPLETE BLOOD COUNT Routine 11/27/2024 9:49 AM EDT Essential (primary) hypertension Chronic kidney disease, unspecified CREATINE KINASE Routine 11/27/2024 9:49 AM EDT Essential (primary) hypertension Chronic kidney disease, unspecified COMPREHENSIVE METABOLIC PANEL Routine 11/27/2024 9:49 AM EDT Essential (primary) hypertension Chronic kidney disease, unspecified BASIC METABOLIC PANEL Routine 11/23/2024 5:54 AM EDT Anemia, unspecified COMPLETE BLOOD COUNT Routine 11/23/2024 5:54 AM EDT Anemia, unspecified COMPLETE BLOOD COUNT Routine 11/20/2024 9:17 AM EDT Essential (primary) hypertension Chronic kidney disease, unspecified CREATINE KINASE Routine 11/20/2024 9:17 AM EDT Essential (primary) hypertension Chronic kidney disease, unspecified COMPREHENSIVE METABOLIC PANEL Routine 11/20/2024 9:17 AM EDT Essential (primary) hypertension Chronic kidney disease, unspecified COMPLETE BLOOD COUNT Routine 11/16/2024 5:48 AM EDT Anemia, unspecified BASIC METABOLIC PANEL Routine 11/16/2024 5:48 AM EDT Anemia, unspecified CREATINE KINASE Routine 11/07/2024 5:52 AM EDT Essential (primary) hypertension Chronic kidney disease, unspecified COMPREHENSIVE METABOLIC PANEL Routine 11/07/2024 5:52 AM EDT Essential (primary) hypertension Chronic kidney disease, unspecified COMPLETE BLOOD COUNT Routine 11/06/2024 10:31 AM EDT Essential (primary) hypertension Chronic kidney disease, unspecified BASIC METABOLIC PANEL Routine 11/02/2024 6:10 AM EDT Anemia, unspecified COMPLETE BLOOD COUNT Routine 11/02/2024 6:10 AM EDT Anemia, unspecified LIPID PANEL WITH REFLEX TO DIRECT LDL Routine 10/27/2024 6:09 AM EDT Hyperlipidemia, unspecified COMPLETE BLOOD COUNT Routine 10/19/2024 7:43 AM EDT Anemia, unspecified BASIC METABOLIC PANEL Routine 10/19/2024 7:43 AM EDT Anemia, unspecified COMPLETE BLOOD COUNT Routine 10/16/2024 6:57 AM EDT Essential (primary) hypertension Chronic kidney disease, unspecified CREATINE KINASE Routine 10/16/2024 6:57 AM EDT Essential (primary) hypertension Chronic kidney disease, unspecified COMPREHENSIVE METABOLIC PANEL Routine 10/16/2024 6:57 AM EDT Essential (primary) hypertension Chronic kidney disease, unspecified COMPLETE BLOOD COUNT Routine 10/14/2024 5:24 AM EDT Anemia, unspecified BASIC METABOLIC PANEL Routine 10/14/2024 5:24 AM EDT Anemia, unspecified COMPLETE BLOOD COUNT Routine 10/10/2024 5:35 AM EDT Essential (primary) hypertension Chronic kidney disease, unspecified CREATINE KINASE Routine 10/10/2024 5:35 AM EDT Essential (primary) hypertension Chronic kidney disease, unspecified COMPREHENSIVE METABOLIC PANEL Routine 10/10/2024 5:35 AM EDT Essential (primary) hypertension Chronic kidney disease, unspecified RETICULOCYTE COUNT Routine 10/05/2024 5: 31 AM EDT Anemia, unspecified THYROID STIMULATING HORMONE Routine 10/05/2024 5:31 AM EDT Anemia, unspecified VITAMIN B12 AND FOLATE Routine 10/05/2024 5:31 AM EDT Anemia, unspecified COMPLETE BLOOD COUNT Routine 10/05/2024 5:31 AM EDT Anemia, unspecified BASIC METABOLIC PANEL Routine 10/05/2024 5:31 AM EDT Anemia, unspecified from Last 3 Months Results * (ABNORMAL) Complete blood count (01/01/2025 8:54 AM EST) Only the most recent of23 resultswithin the time period is included. WBC 4.2(L) 4.8 - 10.8 K/mcL LAB HEMETOLOGY METHOD 01/01/2025 11:14 AM [facility] RBC 2.50(L) 4.50 - 5.50 M/mcL LAB HEMETOLOGY METHOD 01/01/2025 11:14 AM [facility] Hemoglobin 7.8(L) 13.5 - 17.5 g/dL LAB HEMETOLOGY METHOD 01/01/2025 11:14 AM [facility] Hematocrit 25.1(L) 42.0 - 54.0 % LAB HEMETOLOGY METHOD 01/01/2025 11:14 AM [facility] MCV 100.0(H) 79.0 - 98.0 FL LAB HEMETOLOGY METHOD 01/01/2025 11:14 AM [facility] MCH 31.1 27.0 - 32.0 pcg LAB HEMETOLOGY METHOD 01/01/2025 11:14 AM [facility] MCHC 31.1(L) 32.0 - 37.0 g/dL LAB HEMETOLOGY METHOD 01/01/2025 11:14 AM [facility] RDW 16.0(H) 11.0 - 15.0 % LAB HEMETOLOGY METHOD 01/01/2025 11:14 AM [facility] Platelets 153 130 - 400 K/mcL LAB HEMETOLOGY METHOD 01/01/2025 11:14 AM [facility] MPV 9.4 7.0 - 11.0 FL LAB HEMETOLOGY METHOD 01/01/2025 11:14 AM [facility] NRBC 0.0 <1.0 % LAB HEMETOLOGY METHOD 01/01/2025 11:14 AM EST [facility] NRBC Absolute 0.00 <0.10 K/mcL LAB HEMETOLOGY METHOD 01/01/2025 11:14 AM EST [facility] Blood Venous blood specimen / Unknown Venipuncture / Unknown 01/01/2025 8:54 AM EST 01/01/2025 10:58 AM EST Lauren Wiley MD LAB BLOOD ORDERABLES Fin al Result Performing Organization Address City/[facility]/ZIP Co de Phone Number [facility] [address] [place] [address], [place] [phone] * Creatine kinase (01/01/2025 8:54 AM EST) Only the most recent of10 resultswithin the time period is included. Total CK 33 22 - 269 unit/L LAB CHEMISTRY METHOD 01/01/2025 12:22 PM [facility] Blood Venous blood specimen / Unknown Venipuncture / Unknown 01/01/2025 8:54 AM EST 01/01/2025 10:58 AM EST Lauren Wiley MD LAB BLOOD ORDERABLES Fin al Result Performing Organization Address [facility]/ZIP Co de Phone Number [facility] [address] [place] [address], [place] [phone] * (ABNORMAL) Comprehensive metabolic panel (01/01/2025 8:54 AM EST) Only the most recent of11 resultswithin the time period is included. Sodium 143 133 - 145 mmol/L LAB CHEMISTRY METHOD 01/01/2025 12:22 PM [facility] Potassium 4.0 3.5 - 5.5 mmol/L LAB CHEMISTRY METHOD 01/01/2025 12:22 PM [facility] Chloride 114(H) 96 - 110 mmol/L LAB CHEMISTRY METHOD 01/01/2025 12:22 PM [facility] CO2 22 21 - 32 mmol/L LAB CHEMISTRY METHOD 01/01/2025 12:22 PM [facility] Anion Gap 7 3 - 11 LAB CHEMISTRY METHOD 01/01/2025 12:22 PM [facility] Glucose 147(H) 70 - 100 mg/dL LAB CHEMISTRY METHOD 01/01/2025 12:22 PM [facility] BUN 59(H) 5 - 25 mg/dL LAB CHEMISTRY METHOD 01/01/2025 12:22 PM [facility] Creatinine 1.68(H) 0.70 - 1.30 mg/dL LAB CHEMISTRY METHOD 01/01/2025 12:22 PM [facility] eGFR 43(L) >=60 mL/min/1. 73m2 LAB CHEMISTRY METHOD 01/01/2025 12:22 PM [facility] Comment:Calculation based on the Chronic Kidney Disease Epidemiology Collaboration (CKD-EPI) equation refit without adjustment for race. BUN/Creatinine Ratio 35.1 LAB CHEMISTRY METHOD 01/01/2025 12:22 PM [facility] Calcium 9.3 8.5 - 10.5 mg/dL LAB CHEMISTRY METHOD 01/01/2025 12:22 PM [facility] AST (SGOT) 15 10 - 42 unit/L LAB CHEMISTRY METHOD 01/01/2025 12:22 PM [facility] ALT (SGPT) 22 10 - 60 unit/L LAB CHEMISTRY METHOD 01/01/2025 12:22 PM [facility] Alkaline Phosphatase 98 42 - 121 unit/L LAB CHEMISTRY METHOD 01/01/2025 12:22 PM [facility] Total Protein 5.6(L) 6.0 - 8.0 g/dL LAB CHEMISTRY METHOD 01/01/2025 12:22 PM [facility] Albumin 1.8(L) 3.2 - 5.0 g/dL LAB CHEMISTRY METHOD 01/01/2025 12:22 PM [facility] Total Bilirubin 0.2 0.0 - 1.4 mg/dL LAB CHEMISTRY METHOD 01/01/2025 12:22 PM [facility] Blood Venous blood specimen / Unknown Venipuncture / Unknown 01/01/2025 8:54 AM EST 01/01/2025 10:58 AM EST us Lauren Wiley MD LAB BLOOD ORDERABLES Fin al Result [facility] [address] [place] [address], * (ABNORMAL) Urinalysis with reflex microscopic (12/31/2024 5:45 PM EST) Specific [place] Urine 1.014 1.003 - 1.030 LAB URINALYSIS - AUTOMATED METHOD 01/01/2025 12:20 PM [facility] pH, Urine 8.0 5.0 - 8.0 pH LAB URINALYSIS - AUTOMATED METHOD 01/01/2025 12:20 PM [facility] Leukocytes, Urine Large(A) Negative LAB URINALYSIS - AUTOMATED METHOD 01/01/2025 12:20 PM [facility] Nitrite, Urine Positive(A) Negative LAB URINALYSIS - AUTOMATED METHOD 01/01/2025 12:20 PM [facility] Protein, Urine 100(A) <=Trace mg/dL LAB URINALYSIS - AUTOMATED METHOD 01/01/2025 12:20 PM [facility] Glucose, Urine Negative Negative mg/dL LAB URINALYSIS - AUTOMATED METHOD 01/01/2025 12:20 PM [facility] Ketones, Urine Negative Negative mg/dL LAB URINALYSIS - AUTOMATED METHOD 01/01/2025 12:20 PM [facility] Urobilinogen , Urine 1.0 0.2 - 1.0 mg/dL LAB URINALYSIS - AUTOMATED METHOD 01/01/2025 12:20 PM [facility] Bilirubin, Urine Negative Negative LAB URINALYSIS - AUTOMATED METHOD 01/01/2025 12:20 PM [facility] Blood, Urine Large(A) Negative LAB URINALYSIS - AUTOMATED METHOD 01/01/2025 12:20 PM [facility] RBC, Urine >100(H) 0 - 4 /HPF 01/01/2025 12:20 PM [facility] WBC, Urine >100(H) 0 - 4 /HPF 01/01/2025 12:20 PM [facility] Squamous Epithelial, Urine 2 0 - 60 /LPF 01/01/2025 12:20 PM [facility] Crystals, Urine Moderate Triple Phosphate crystals. /LPF 01/01/2025 12:20 PM [facility] Bacteria, Urine Few(A) Negative /HPF 01/01/2025 12:20 PM [facility] Yeast, Urine Present(A) None /HPF 01/01/2025 12:20 PM [facility] Urine Urine specimen obtained by clean catch procedure / Unknown Non-blood Collection / Unknown 12/31/2024 5:45 PM EST 01/01/2025 11:26 AM EST us Lauren Wiley MD LAB URINE ORDERABLES Fin al Result [facility] [address] [place] [address], * (ABNORMAL) Basic metabolic panel (12/28/2024 5:35 AM EST) Only the most recent of12 resultswithin the time period is included. Sodium 141 133 - 145 mmol/L LAB CHEMISTRY METHOD 12/28/2024 9:50 AM [facility] Potassium 3.9 3.5 - 5.5 mmol/L LAB CHEMISTRY METHOD 12/28/2024 9:50 AM [facility] Chloride 114(H) 96 - 110 mmol/L LAB CHEMISTRY METHOD 12/28/2024 9:50 AM [facility] CO2 22 21 - 32 mmol/L LAB CHEMISTRY METHOD 12/28/2024 9:50 AM [facility] Anion Gap 5 3 - 11 LAB CHEMISTRY METHOD 12/28/2024 9:50 AM [facility] Glucose 101(H) 70 - 100 mg/dL LAB CHEMISTRY METHOD 12/28/2024 9:50 AM [facility] BUN 59(H) 5 - 25 mg/dL LAB CHEMISTRY METHOD 12/28/2024 9:50 AM [facility] Creatinine 1.61(H) 0.70 - 1.30 mg/dL LAB CHEMISTRY METHOD 12/28/2024 9:50 AM [facility] eGFR 46(L) >=60 mL/min/1. 73m2 LAB CHEMISTRY METHOD 12/28/2024 9:50 AM [facility] Comment:Calculation based on the Chronic Kidney Disease Epidemiology Collaboration (CKD-EPI) equation refit without adjustment for race. BUN/Creatinine Ratio 36.6 LAB CHEMISTRY METHOD 12/28/2024 9:50 AM [facility] Calcium 9.3 8.5 - 10.5 mg/dL LAB CHEMISTRY METHOD 12/28/2024 9:50 AM [facility] Blood Venous blood specimen / Unknown Venipuncture / Unknown 12/28/2024 5:35 AM EST 12/28/2024 9:16 AM EST us Lauren Wiley MD LAB BLOOD ORDERABLES Fin al Result [facility] [address] [place] [address], * (ABNORMAL) Lipid panel with reflex to direct LDL (10/27/2024 6:09 AM EDT) Cholesterol 92 0 - 200 mg/dL LAB CHEMISTRY METHOD 10/27/2024 9:15 AM EDT [facility] Triglycerides 77 0 - 150 mg/dL LAB CHEMISTRY METHOD 10/27/2024 9:15 AM EDT [facility] HDL 28(L) >=40 mg/dL LAB CHEMISTRY METHOD 10/27/2024 9:15 AM EDT [facility] LDL Calculated 49 0 - 100 mg/dL LAB CHEMISTRY METHOD 10/27/2024 9:15 AM EDT [facility] Comment:Estimated LDL Calcul ated using equation: Total cholesterol - HDL cholesterol - (Triglycerides/5) VLDL Cholesterol Andrea 15.4 mg/dL LAB CHEMISTRY METHOD 10/27/2024 9:15 AM EDT [facility] Non HDL Chol. (LDL+VLDL) 64 <145 mg/dL LAB CHEMISTRY METHOD 10/27/2024 9:15 AM T [facility] Chol/HDL Ratio 3.3 0.0 - 4.4 LAB CHEMISTRY METHOD 10/27/2024 9:15 AM [facility] Blood Venous blood specimen / Unknown Venipuncture / Unknown 10/27/2024 6:09 AM EDT 10/27/2024 7:21 AM EDT us Lauren Wiley MD LAB BLOOD ORDERABLES Fin al Result [facility] [address] [place] [address], [place] [phone] * Vitamin B12 and folate (10/05/2024 5:31 AM EDT) Vitamin B-12 654 250 - 900 pcg/mL LAB CHEMISTRY METHOD 10/05/2024 11:24 AM EDT [facility] Folate 7.7 2.8 - 17.0 ng/ml LAB CHEMISTRY METHOD 10/05/2024 11:24 AM EDT [facility] Blood Venous blood specimen / Unknown Venipuncture / Unknown 10/05/2024 5:31 AM EDT 10/05/2024 9:31 AM EDT Lauren Wiley MD LAB BLOOD ORDERABLES Fin al Result Performing Organization Address [facility]/ZIP Co de Phone Number [facility] [address] [place] [address], [place] [phone] * (ABNORMAL) Reticulocyte count (10/05/2024 5:31 AM EDT) Retic Ct Abs 0.060 0.030 - 0.090 M/mcL LAB HEMETOLOGY METHOD 10/05/2024 9:52 AM EDT [facility] Retic Ct Pct 2.6(H) 0.7 - 1.7 % LAB HEMETOLOGY METHOD 10/05/2024 9:52 AM EDT [facility] Immature Retic Fract 23.2(H) 2.3 - 15.9 % LAB HEMETOLOGY METHOD 10/05/2024 9:52 AM T [facility] Reticulocyte Hemoglobin 33.0 >29.0 pcg LAB HEMETOLOGY METHOD 10/05/2024 9:52 AM EDT [facility] Blood Venous blood specimen / Unknown Venipuncture / Unknown 10/05/2024 5:31 AM EDT 10/05/2024 9:31 AM EDT Lauren Wiley MD LAB BLOOD ORDERABLES Fin al Result Performing Organization Address [facility]/ZIP Co de Phone Number [facility] [address] [place] [address], [place] [phone] * (ABNORMAL) Thyroid stimulating hormone (10/05/2024 5:31 AM EDT) TSH 5.07(H) 0.40 - 4.00 mcIU/mL LAB CHEMISTRY METHOD 10/05/2024 11:59 AM EDT [facility] Blood Venous blood specimen / Unknown Venipuncture / Unknown 10/05/2024 5:31 AM EDT 10/05/2024 9:31 AM EDT us Lauren Wiley MD LAB BLOOD ORDERABLES Fin al Result [facility] ([facility]) [facility] [address] [place] [address], from Last 3 Months Additional Health Concerns 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
--- OUTSIDE RECORDS SUMMARY | 2025-01-04 18:55 | XMS_ITS | Encounter Summary ---
Author Organization [facility] Address [address] [place] [address] Care Team Providers Care Law Office Receptionist Name Role Phone Lauren Wiley MD Primary Care Provider + Encounter Details Date Type Department Care Team (Late st Contact Info) Description 12/27/2023 Lab Requisition [facility] - Main Lab [address] [facility] [place] [address] Social History Tobacco Use Types [...] documented as of this encounter Care Teams Law Office Receptionist Relationship Specialty Start Date End Date Lauren Wiley MD [address] [address] PCP - General Family Medicine 12/01/24 documented as of this encounter
--- OUTSIDE RECORDS SUMMARY | 2025-01-04 18:55 | XMS_ITS | Encounter Summary ---
Author Organization [employer] Address [address] [place] [address] Care Team Providers Care Folder Machine Operator Name Role Phone Lauren Wiley MD Primary Care Provider + Encounter Details Date Type Department Care Team (Late st Contact Info) Description 03/15/2024 Lab Requisition [facility] - Main Lab [address] [place] [address] Lauren Wiley MD [address] [phone] Diarrhea, unspecified; Enterocolitis due to Clostridium difficile, [...] EST 03/15/2024 12:16 PM EST us Lauren Wliey MD LAB MICROBIOLOGY - GENER AL ORDERABLES Final Result [facility] ([facility]) [facility] [address] [place] [address], documented in this encounter Visit Diagnoses Diagnosis Diarrhea, unspecified Enterocolitis due to Clostridium difficile, recurrent documented in this encounter Additional Health Concerns Infection Onset Date Last Indicated Resolved Time ESBL 03/29/2024 12/31/2024 VRE 12/31/2024 12/31/2024 documented as of this encounter Care Teams Folder Machine Operator Relationship Specialty Start Date End Date Lauren Wiley MD [address] [place] [address] PCP - General Family Medicine 12/01/24 documented as of this encounter
--- OUTSIDE RECORDS SUMMARY | 2025-01-04 18:55 | XMS_ITS | Encounter Summary ---
Author Organization [employer] Address [address] [place] [address] Care Team Providers Care Yarn Sorter Name Role Phone Lauren Wiley MD Primary Care Provider + Encounter Details Date Type Department Care Team (Late st Contact Info) Description 11/15/2024 Lab Requisition [facility] [address] [place] [address] Lauren Wiley MD [address] [phone] Anemia, unspecified Social History Tobacco Use Types [...] Associated Diagnosis Comments COMPLETE BLOOD COUNT Routine 11/16/2024 5:48 AM EDT Anemia, unspecified BASIC METABOLIC PANEL Routine 11/16/2024 5:48 AM EDT Anemia, unspecified documented in this encounter Results * (ABNORMAL) Complete blood count (11/16/2024 5:48 AM EDT) WBC 6.2 4.8 - 10.8 K/[facility] LAB HEMETOLOGY METHOD 11/16/2024 11:19 AM EDT [facility] RBC 2.90(L) 4.50 - 5.50 M/[facility] LAB HEMETOLOGY METHOD 11/16/2024 11:19 AM EDT [facility] Hemoglobin 8.8(L) 13.5 - 17.5 g/dL LAB HEMETOLOGY METHOD 11/16/2024 11:19 AM EDT [facility] LAB Hematocrit 28.1(L) 42.0 - 54.0 % LAB HEMETOLOGY METHOD 11/16/2024 11:19 AM [facility] MCV 97.9 79.0 - 98.0 FL LAB HEMETOLOGY METHOD 11/16/2024 11:19 AM EDT [facility] MCH 30.7 27.0 - 32.0 pcg LAB HEMETOLOGY METHOD 11/16/2024 11:19 AM EDT [facility] MCHC 31.3(L) 32.0 - 37.0 g/dL LAB HEMETOLOGY METHOD 11/16/2024 11:19 AM [facility] RDW 15.0 11.0 - 15.0 % LAB HEMETOLOGY METHOD 11/16/2024 11:19 AM T [facility] Platelets 221 130 - 400 K/mcL LAB HEMETOLOGY METHOD 11/16/2024 11:19 AM [facility] MPV 9.8 7.0 - 11.0 FL LAB HEMETOLOGY METHOD 11/16/2024 11:19 AM [facility] NRBC 0.0 <1.0 % LAB HEMETOLOGY METHOD 11/16/2024 11:19 AM EDT [facility] NRBC Absolute 0.00 <0.10 K/mcL LAB HEMETOLOGY METHOD 11/16/2024 11:19 AM [facility] Blood Venous blood specimen / Unknown Venipuncture / Unknown 11/16/2024 5:48 AM EDT 11/16/2024 10:21 AM EDT us Lauren Wiley MD LAB BLOOD ORDERABLES Fin al Result [facility] [address] [place] [address], * (ABNORMAL) Basic metabolic panel (11/16/2024 5:48 AM EDT) Sodium 141 133 - 145 mmol/L LAB CHEMISTRY METHOD 11/16/2024 1:04 PM [facility] Potassium 4.3 3.5 - 5.5 mmol/L LAB CHEMISTRY METHOD 11/16/2024 1:04 PM [facility] Chloride 106 96 - 110 mmol/L LAB CHEMISTRY METHOD 11/16/2024 1:04 PM [facility] CO2 28 21 - 32 mmol/L LAB CHEMISTRY METHOD 11/16/2024 1:04 PM [facility] Anion Gap 7 3 - 11 LAB CHEMISTRY METHOD 11/16/2024 1:04 PM [facility] Glucose 99 70 - 100 mg/dL LAB CHEMISTRY METHOD 11/16/2024 1:04 PM [facility] BUN 40(H) 5 - 25 mg/dL LAB CHEMISTRY METHOD 11/16/2024 1:04 PM [facility] Creatinine 1.25 0.70 - 1.30 mg/dL LAB CHEMISTRY METHOD 11/16/2024 1:04 PM [facility] eGFR 62 >=60 mL/min/1. 73m2 LAB CHEMISTRY METHOD 11/16/2024 1:04 PM [facility] Comment:Calculation based on the Chronic Kidney Disease Epidemiology Collaboration (CKD-EPI) equation refit without adjustment for race. BUN/Creatinine Ratio 32.0 LAB CHEMISTRY METHOD 11/16/2024 1:04 PM [facility] Calcium 8.7 8.5 - 10.5 mg/dL LAB CHEMISTRY METHOD 11/16/2024 1:04 PM [facility] Blood Venous blood specimen / Unknown Venipuncture / Unknown 11/16/2024 5:48 AM EDT 11/16/2024 10:21 AM EDT us Lauren Wiley MD LAB BLOOD ORDERABLES Fin al Result [facility] [address] [place] [address], documented in this encounter Visit Diagnoses Diagnosis Anemia, unspecified documented in this encounter Additional Health Concerns Infection Onset Date Last Indicated Resolved Time ESBL 03/29/2024 12/31/2024 VRE 12/31/2024 12/31/2024 documented as of this encounter Care Teams Yarn Sorter Relationship Specialty Start Date End Date Lauren Wiley MD [address] [address] PCP - General Family Medicine 12/01/24 documented as of this encounter
--- OUTSIDE RECORDS SUMMARY | 2025-01-04 18:55 | XMS_ITS | Encounter Summary ---
Author Organization [employer] Address [address] [place] [address] Care Team Providers Care Automotive Service Director Name Role Phone Lauren Wiley MD Primary Care Provider + Encounter Details Date Type Department Care Team (Late st Contact Info) Description 12/15/2024 Lab Requisition [facility] - Main Lab [address] [place] [address] Lauren Wiley MD [address] [phone] Essential (primary) hypertension; Chronic kidney disease, unspecified [...] Associated Diagnosis Comments COMPLETE BLOOD COUNT Routine 12/18/2024 8:50 AM EDT Essential (primary) hypertension Chronic kidney disease, unspecified CREATINE KINASE Routine 12/18/2024 8:50 AM EDT Essential (primary) hypertension Chronic kidney disease, unspecified COMPREHENSIVE METABOLIC PANEL Routine 12/18/2024 8:50 AM EDT Essential (primary) hypertension Chronic kidney disease, unspecified documented in this encounter Results * (ABNORMAL) Complete blood count (12/18/2024 8:50 AM EDT) WBC 4.2(L) 4.8 - 10.8 K/mcL LAB HEMETOLOGY METHOD 12/18/2024 11:22 AM [facility] RBC 2.70(L) 4.50 - 5.50 M/mcL LAB HEMETOLOGY METHOD 12/18/2024 11:22 AM [facility] Hemoglobin 8.6(L) 13.5 - 17.5 g/dL LAB HEMETOLOGY METHOD 12/18/2024 11:22 AM [facility] Hematocrit 27.6(L) 42.0 - 54.0 % LAB HEMETOLOGY METHOD 12/18/2024 11:22 AM [facility] MCV 100.7(H) 79.0 - 98.0 FL LAB HEMETOLOGY METHOD 12/18/2024 11:22 AM [facility] MCH 31.4 27.0 - 32.0 pcg LAB HEMETOLOGY METHOD 12/18/2024 11:22 AM [facility] LAB MCHC 31.2(L) 32.0 - 37.0 g/dL LAB HEMETOLOGY METHOD 12/18/2024 11:22 AM [facility] LAB RDW 15.2(H) 11.0 - 15.0 % LAB HEMETOLOGY METHOD 12/18/2024 11:22 AM [facility] Platelets 215 130 - 400 K/mcL LAB HEMETOLOGY METHOD 12/18/2024 11:22 AM [facility] MPV 9.3 7.0 - 11.0 FL LAB HEMETOLOGY METHOD 12/18/2024 11:22 AM [facility] NRBC 0.0 <1.0 % LAB HEMETOLOGY METHOD 12/18/2024 11:22 AM [facility] NRBC Absolute 0.00 <0.10 K/mcL LAB HEMETOLOGY METHOD 12/18/2024 11:22 AM [facility] Blood Venous blood specimen / Unknown Venipuncture / Unknown 12/18/2024 8:50 AM EDT 12/18/2024 10:49 AM EDT Lauren Wiley MD LAB BLOOD ORDERABLES Fin al Result Performing Organization Address City/[facility]/ZIP Co de Phone Number [facility] [address] [place] [address], [place] [phone] * Creatine kinase (12/18/2024 8:50 AM EDT) Total CK 38 22 - 269 unit/L LAB CHEMISTRY METHOD 12/18/2024 4:37 PM EDT [facility] Blood Venous blood specimen / Unknown Venipuncture / Unknown 12/18/2024 8:50 AM EDT 12/18/2024 10:49 AM EDT Lauren Wiley MD LAB BLOOD ORDERABLES Fin al Result Performing Organization Address City/[facility]/ZIP Co de Phone Number [facility] [address] [place] [address], [place] [phone] * (ABNORMAL) Comprehensive metabolic panel (12/18/2024 8:50 AM EDT) [facility] Sodium 144 133 - 145 mmol/L LAB CHEMISTRY METHOD 12/18/2024 4:37 PM EDT [facility] Potassium 4.1 3.5 - 5.5 mmol/L LAB CHEMISTRY METHOD 12/18/2024 4:37 PM EDT [facility] Chloride 116(H) 96 - 110 mmol/L LAB CHEMISTRY METHOD 12/18/2024 4:37 PM EDT [facility] CO2 17(L) 21 - 32 mmol/L LAB CHEMISTRY METHOD 12/18/2024 4:37 PM EDT [facility] Anion Gap 11 3 - 11 LAB CHEMISTRY METHOD 12/18/2024 4:37 PM EDT [facility] Glucose 147(H) 70 - 100 mg/dL LAB CHEMISTRY METHOD 12/18/2024 4:37 PM [facility] BUN 56(H) 5 - 25 mg/dL LAB CHEMISTRY METHOD 12/18/2024 4:37 PM [facility] Creatinine 2.02(H) 0.70 - 1.30 mg/dL LAB CHEMISTRY METHOD 12/18/2024 4:37 PM [facility] eGFR 35(L) >=60 mL/min/1. 73m2 LAB CHEMISTRY METHOD 12/18/2024 4:37 PM [facility] Comment:Calculation based on the Chronic Kidney Disease Epidemiology Collaboration (CKD-EPI) equation refit without adjustment for race. BUN/Creatinine Ratio 27.7 LAB CHEMISTRY METHOD 12/18/2024 4:37 PM [facility] Calcium 9.3 8.5 - 10.5 mg/dL LAB CHEMISTRY METHOD 12/18/2024 4:37 PM [facility] AST (SGOT) 21 10 - 42 unit/L LAB CHEMISTRY METHOD 12/18/2024 4:37 PM [facility] ALT (SGPT) 19 10 - 60 unit/L LAB CHEMISTRY METHOD 12/18/2024 4:37 PM [facility] Alkaline Phosphatase 110 42 - 121 unit/L LAB CHEMISTRY METHOD 12/18/2024 4:37 PM [facility] Total Protein 6.4 6.0 - 8.0 g/dL LAB CHEMISTRY METHOD 12/18/2024 4:37 PM [facility] Albumin 2.1(L) 3.2 - 5.0 g/dL LAB CHEMISTRY METHOD 12/18/2024 4:37 PM [facility] Total Bilirubin 0.3 0.0 - 1.4 mg/dL LAB CHEMISTRY METHOD 12/18/2024 4:37 PM [facility] Blood Venous blood specimen / Unknown Venipuncture / Unknown 12/18/2024 8:50 AM EDT 12/18/2024 10:49 AM EDT us Lauren Wiley MD LAB BLOOD ORDERABLES Fin al Result [facility] ([facility]) [facility] [address] [place] [address], documented in this encounter Visit Diagnoses Diagnosis Essential (primary) hypertension Unspecified essential hypertension Chronic kidney disease, unspecified documented in this encounter Additional Health Concerns Infection Onset Date Last Indicated Resolved Time ESBL 03/29/2024 12/31/2024 VRE 12/31/2024 12/31/2024 documented as of this encounter Care Teams Automotive Service Director Relationship Specialty Start Date End Date Lauren Wiley MD [address] [place] [id number] PCP - General Family Medicine 12/01/24 documented as of this encounter
--- OUTSIDE RECORDS SUMMARY | 2025-01-04 18:55 | XMS_ITS | Encounter Summary ---
Author Organization [employer] Address [address] [place] [address] Care Team Providers Care Addictions Therapist Name Role Phone Lauren Wiley MD Primary Care Provider + Encounter Details Date Type Department Care Team (Late st Contact Info) Description 01/01/2025 Lab Requisition [facility] - Main Lab [address] [place] [address] Lauren Wiley MD [address] [address] Hematuria, unspecified Social History Tobacco Use Types Packs/Day Years Used Date Smoking Tobacco: Never Assessed Sex and Gender Information Value Date Recorded Sex Assigned at Not on file Legal Sex Male 4:31 AM EST Gender Identity Not on file Sexual Orientation Not on file documented as of this encounter Plan of Treatment Pending Results Name Type Priority Associated Diagnoses Date /Time Culture urine Microbiology Routine Hematuria, unspecified 12/31/2024 5:45 PM EST documented as of this encounter Procedures Procedure Name Priority Date/Time Associated Diagnosis Comments URINALYSIS WITH REFLEX MICROSCOPIC Routine 12/31/2024 5:45 PM EST Hematuria, unspecified URINALYSIS WITH REFLEX MICROSCOPIC Routine 12/31/2024 5:45 PM EST Hematuria, unspecified CULTURE URINE Routine 12/31/2024 5:45 PM EST Hematuria, unspecified documented in this encounter Results * (ABNORMAL) Urinalysis with reflex microscopic (12/31/2024 5:45 PM EST) Specific [place] Urine 1.014 1.003 - 1.030 LAB URINALYSIS - AUTOMATED METHOD 01/01/2025 12:20 PM EST [facility] pH, Urine 8.0 5.0 - 8.0 pH LAB URINALYSIS - AUTOMATED METHOD 01/01/2025 12:[address] [facility] Leukocytes, Urine Large(A) Negative LAB URINALYSIS - AUTOMATED METHOD 01/01/2025 12:[address] [facility] Nitrite, Urine Positive(A) Negative LAB URINALYSIS - AUTOMATED METHOD 01/01/2025 12:[address] [facility] Protein, Urine 100(A) <=Trace mg/dL LAB URINALYSIS - AUTOMATED METHOD 01/01/2025 12:[address] [facility] Glucose, Urine Negative Negative mg/dL LAB URINALYSIS - AUTOMATED METHOD 01/01/2025 12:[address] [facility] Ketones, Urine Negative Negative mg/dL LAB URINALYSIS - AUTOMATED METHOD 01/01/2025 12:[address] [facility] Urobilinogen , Urine 1.0 0.2 - 1.0 mg/dL LAB URINALYSIS - AUTOMATED METHOD 01/01/2025 12:[address] [facility] Bilirubin, Urine Negative Negative LAB URINALYSIS - AUTOMATED METHOD 01/01/2025 12:[address] [facility] Blood, Urine Large(A) Negative LAB URINALYSIS - AUTOMATED METHOD 01/01/2025 12:[address] [facility] RBC, Urine >100(H) 0 - 4 /HPF 01/01/2025 12:[address] [facility] WBC, Urine >100(H) 0 - 4 /HPF 01/01/2025 12:[address] [facility] Squamous Epithelial, Urine 2 0 - 60 /LPF 01/01/2025 12:[address] [facility] Crystals, Urine Moderate Triple Phosphate crystals. /LPF 01/01/2025 12:[address] [facility] Bacteria, Urine Few(A) Negative /HPF 01/01/2025 12:20 PM EST [facility] Yeast, Urine Present(A) None /HPF 01/01/2025 12:20 PM EST [facility] Urine Urine specimen obtained by clean catch procedure / Unknown Non-blood Collection / Unknown 12/31/2024 5:45 PM EST 01/01/2025 11:26 AM EST us Lauren Wiley MD LAB URINE ORDERABLES Fin al Result [facility] [address] [place] [address], documented in this encounter Visit Diagnoses Diagnosis Hematuria, unspecified documented in this encounter Additional Health Concerns Infection Onset Date Last Indicated Resolved Time ESBL 03/29/2024 12/31/2024 VRE 12/31/2024 12/31/2024 documented as of this encounter Care Teams Addictions Therapist Relationship Specialty Start Date End Date Lauren Wiley MD [address] [phone] PCP - General Family Medicine 12/01/24 documented as of this encounter
--- OUTSIDE RECORDS SUMMARY | 2025-01-04 18:55 | XMS_ITS | Encounter Summary ---
Author Organization [employer] Address [address] [place] [address] Care Team Providers Care Fishing Tool Operator Name Role Phone Lauren Wiley MD Primary Care Provider + Encounter Details Date Type Department Care Team (Late st Contact Info) Description 12/22/2024 Lab Requisition [facility] - Main Lab [address] [place] [address] Lauren Wiley MD [address] [phone] Essential (primary) hypertension; Chronic kidney disease, unspecified [...] Associated Diagnosis Comments COMPLETE BLOOD COUNT Routine 12/25/2024 9:03 AM EST Essential (primary) hypertension Chronic kidney disease, unspecified CREATINE KINASE Routine 12/25/2024 9:03 AM EST Essential (primary) hypertension Chronic kidney disease, unspecified COMPREHENSIVE METABOLIC PANEL Routine 12/25/2024 9:03 AM EST Essential (primary) hypertension Chronic kidney disease, unspecified documented in this encounter Results * (ABNORMAL) Complete blood count (12/25/2024 9:03 AM EST) WBC 4.2(L) 4.8 - 10.8 K/mcL LAB HEMETOLOGY METHOD 12/25/2024 11:38 AM EST [facility] RBC 2.40(L) 4.50 - 5.50 M/mcL LAB HEMETOLOGY METHOD 12/25/2024 11:38 AM [facility] Hemoglobin 7.5(L) 13.5 - 17.5 g/dL LAB HEMETOLOGY METHOD 12/25/2024 11:38 AM [facility] Hematocrit 24.2(L) 42.0 - 54.0 % LAB HEMETOLOGY METHOD 12/25/2024 11:38 AM [facility] LAB MCV 100.0(H) 79.0 - 98.0 FL LAB HEMETOLOGY METHOD 12/25/2024 11:38 AM [facility] LAB MCH 31.0 27.0 - 32.0 pcg LAB HEMETOLOGY METHOD 12/25/2024 11:38 AM [facility] LAB MCHC 31.0(L) 32.0 - 37.0 g/dL LAB HEMETOLOGY METHOD 12/25/2024 11:38 AM [facility] RDW 15.9(H) 11.0 - 15.0 % LAB HEMETOLOGY METHOD 12/25/2024 11:38 AM [facility] Platelets 161 130 - 400 K/mcL LAB HEMETOLOGY METHOD 12/25/2024 11:38 AM [facility] LAB MPV 9.5 7.0 - 11.0 FL LAB HEMETOLOGY METHOD 12/25/2024 11:38 AM [facility] NRBC 0.0 <1.0 % LAB HEMETOLOGY METHOD 12/25/2024 11:38 AM [facility] NRBC Absolute 0.00 <0.10 K/mcL LAB HEMETOLOGY METHOD 12/25/2024 11:38 AM [facility] LAB Blood Venous blood specimen / Unknown Venipuncture / Unknown 12/25/2024 9:03 AM EST 12/25/2024 11:06 AM EST Lauren Wiley MD LAB BLOOD ORDERABLES Fin al Result Performing Organization Address City/[facility]/ZIP Co de Phone Number [facility] [address] [place] [address], [place] [phone] * Creatine kinase (12/25/2024 9:03 AM EST) Pathologist [facility] Total CK 39 22 - 269 unit/L LAB CHEMISTRY METHOD 12/25/2024 12:27 PM [facility] Blood Venous blood specimen / Unknown Venipuncture / Unknown 12/25/2024 9:03 AM EST 12/25/2024 11:07 AM EST Lauren Wiley MD LAB BLOOD ORDERABLES Fin al Result Performing Organization Address [facility] de Phone Number [facility] [address] [place] [address], [place] [phone] * (ABNORMAL) Comprehensive metabolic panel (12/25/2024 9:03 AM EST) [facility] Sodium 140 133 - 145 mmol/L LAB CHEMISTRY METHOD 12/25/2024 12:28 PM [facility] Potassium 4.2 3.5 - 5.5 mmol/L LAB CHEMISTRY METHOD 12/25/2024 12:28 PM [facility] Chloride 113(H) 96 - 110 mmol/L LAB CHEMISTRY METHOD 12/25/2024 12:28 PM [facility] CO2 22 21 - 32 mmol/L LAB CHEMISTRY METHOD 12/25/2024 12:28 PM [facility] Anion Gap 5 3 - 11 LAB CHEMISTRY METHOD 12/25/2024 12:28 PM [facility] Glucose 113(H) 70 - 100 mg/dL LAB CHEMISTRY METHOD 12/25/2024 12:28 PM [facility] BUN 62(H) 5 - 25 mg/dL LAB CHEMISTRY METHOD 12/25/2024 12:28 PM [facility] Creatinine 1.73(H) 0.70 - 1.30 mg/dL LAB CHEMISTRY METHOD 12/25/2024 12:28 PM [facility] LAB eGFR 42(L) >=60 mL/min/1. 73m2 LAB CHEMISTRY METHOD 12/25/2024 12:28 PM [facility] LAB Comment:Calculation based on the Chronic Kidney Disease Epidemiology Collaboration (CKD-EPI) equation refit without adjustment for race. BUN/Creatinine Ratio 35.8 LAB CHEMISTRY METHOD 12/25/2024 12:28 PM [facility] Calcium 9.3 8.5 - 10.5 mg/dL LAB CHEMISTRY METHOD 12/25/2024 12:28 PM [facility] AST (SGOT) 14 10 - 42 unit/L LAB CHEMISTRY METHOD 12/25/2024 12:28 PM [facility] ALT (SGPT) 21 10 - 60 unit/L LAB CHEMISTRY METHOD 12/25/2024 12:28 PM [facility] Alkaline Phosphatase 99 42 - 121 unit/L LAB CHEMISTRY METHOD 12/25/2024 12:28 PM [facility] Total Protein 5.5(L) 6.0 - 8.0 g/dL LAB CHEMISTRY METHOD 12/25/2024 12:28 PM [facility] Albumin 1.8(L) 3.2 - 5.0 g/dL LAB CHEMISTRY METHOD 12/25/2024 12:28 PM [facility] Total Bilirubin 0.3 0.0 - 1.4 mg/dL LAB CHEMISTRY METHOD 12/25/2024 12:28 PM [facility] Blood Venous blood specimen / Unknown Venipuncture / Unknown 12/25/2024 9:03 AM EST 12/25/2024 11:07 AM EST Lauren Wiley MD LAB BLOOD ORDERABLES Fin al Result Performing Organization Address [facility]/State/ZIP Co de Phone Number [facility] ([facility]) [facility] [address] [place] [address], documented in this encounter Visit Diagnoses Diagnosis Essential (primary) hypertension Unspecified essential hypertension Chronic kidney disease, unspecified documented in this encounter Additional Health Concerns Infection Onset Date Last Indicated Resolved Time ESBL 03/29/2024 12/31/2024 VRE 12/31/2024 12/31/2024 documented as of this encounter Care Teams Fishing Tool Operator Relationship Specialty Start Date End Date Lauren Wiley MD [address] [place] [id number] PCP - General Family Medicine 12/01/24 documented as of this encounter
--- OUTSIDE RECORDS SUMMARY | 2025-01-04 18:55 | XMS_ITS | Encounter Summary ---
Author Organization [employer] Address [address] [place] [address] Care Team Providers Care Underwater Hunter Name Role Phone Lauren Wiley MD Primary Care Provider + Encounter Details Date Type Department Care Team (Late st Contact Info) Description 03/29/[address] [facility] - Main Lab [address] [place] [address] Lauren Wiley MD [address] [address] Hematuria, unspecified Social History Tobacco [...] reflex microscopic (03/29/2024 12:00 AM EST) Specific [place] Urine 1.013 1.003 - 1.030 LAB URINALYSIS - AUTOMATED METHOD 03/29/2024 11:[address] [facility] ([facility] pH, Urine >=9.0(A) 5.0 - 8.0 [...] - AUTOMATED METHOD 03/29/2024 11:21 AM EST [facility] Urine Urine specimen from urethra / Unknown 03/29/2024 03/29/2024 10:16 AM EST us Lauren Wiley MD LAB URINE ORDERABLES Fin al Result [facility] [address] [place] [address], * (ABNORMAL) Culture urine (03/29/2024 12:00 AM EST) Culture, Urine >100,000 CFU/mL Providencia stuartii(A) AL 04/02/2024 8:09 AM EST [facility] Comment: This is an edited result. Previous organism was Gram negative bacilli on 03/30/2024 at 1021 EST. Culture, Urine 50,000-100,000 CFU/mL Escherichia coli ESBL(A) AL 04/02/2024 8:09 AM EST [facility] Comment: THIS ORGANISM IS POSITIVE FOR EXTENDED SPECTRUM BETA-LACTAMASE (ESBL). EXTENDED SPECTRUM BETA-LACTAMASE PRODUCING ORGANISMS DEMONSTRATE DECREASED ACTIVITY WITH PENICILLILNS, CEPHALOSPORINS [...] Unknown 03/29/2024 03/29/2024 10:16 AM EST Narrative [facility] - 04/02/2024 8:09 AM EST [...] MICROBIOLOGY - GENER AL ORDERABLES Final Result [facility] ([facility]) [facility] [address] [place] [address], [place] [phone] documented in this encounter Visit Diagnoses Diagnosis Hematuria, unspecified documented in this encounter Additional Health Concerns Infection Onset Date Last Indicated Resolved Time ESBL 03/29/2024 12/31/2024 VRE 12/31/2024 12/31/2024 documented as of this encounter Care Teams Underwater Hunter Relationship Specialty Start Date End Date Lauren Wiley MD [address] [address] PCP - General Family Medicine 12/01/24 documented as of this encounter
--- OUTSIDE RECORDS SUMMARY | 2025-01-04 18:55 | XMS_ITS | Encounter Summary ---
Author Organization [employer] Address [address] [place] [address] Care Team Providers Care Public Policy Associate Name Role Phone Lauren Wiley MD Primary Care Provider + Encounter Details Date Type Department Care Team (Late st Contact Info) Description 08/02/2024 Lab Requisition [facility] Lab [address] [place] [address] Lauren Wiley MD [address] [phone] Anemia, unspecified Social History Tobacco Use Types [...] Associated Diagnosis Comments COMPLETE BLOOD COUNT Routine 08/03/2024 5:26 AM EDT Anemia, unspecified BASIC METABOLIC PANEL Routine 08/03/2024 5:26 AM EDT Anemia, unspecified documented in this encounter Results * (ABNORMAL) Basic metabolic panel (08/03/2024 5:26 AM EDT) Sodium 145 133 - 145 mmol/L LAB CHEMISTRY METHOD 08/03/2024 9:54 AM [facility] Potassium 4.4 3.5 - 5.5 mmol/L LAB CHEMISTRY METHOD 08/03/2024 9:54 AM [facility] Chloride 110 96 - 110 mmol/L LAB CHEMISTRY METHOD 08/03/2024 9:54 AM [facility] CO2 29 21 - 32 mmol/L LAB CHEMISTRY METHOD 08/03/2024 9:54 AM [facility] Anion Gap 6 3 - 11 LAB CHEMISTRY METHOD 08/03/2024 9:54 AM [facility] Glucose 99 70 - 100 mg/dL LAB CHEMISTRY METHOD 08/03/2024 9:54 AM [facility] BUN 37(H) 5 - 25 mg/dL LAB CHEMISTRY METHOD 08/03/2024 9:54 AM [facility] Creatinine 1.26 0.70 - 1.30 mg/dL LAB CHEMISTRY METHOD 08/03/2024 9:54 AM [facility] eGFR 62 >=60 mL/min/1. 73m2 LAB CHEMISTRY METHOD 08/03/2024 9:54 AM [facility] Comment:Calculation based on the Chronic Kidney Disease Epidemiology Collaboration (CKD-EPI) equation refit without adjustment for race. BUN/Creatinine Ratio 29.4 LAB CHEMISTRY METHOD 08/03/2024 9:54 AM [facility] Calcium 8.5 8.5 - 10.5 mg/dL LAB CHEMISTRY METHOD 08/03/2024 9:54 AM [facility] Blood Venous blood specimen / Unknown Venipuncture / Unknown 08/03/2024 5:26 AM EDT 08/03/2024 8:39 AM EDT us Lauren Wiley MD LAB BLOOD ORDERABLES Fin al Result [facility] [address] [place] [address], * (ABNORMAL) Complete blood count (08/03/2024 5:26 AM EDT) WBC 5.1 4.8 - 10.8 K/mcL LAB HEMETOLOGY METHOD 08/03/2024 8:59 AM [facility] RBC 2.70(L) 4.50 - 5.50 M/mcL LAB HEMETOLOGY METHOD 08/03/2024 8:59 AM [facility] Hemoglobin 8.3(L) 13.5 - 17.5 g/dL LAB HEMETOLOGY METHOD 08/03/2024 8:59 AM [facility] Hematocrit 27.7(L) 42.0 - 54.0 % LAB HEMETOLOGY METHOD 08/03/2024 8:59 AM [facility] MCV 104.1(H) 79.0 - 98.0 FL LAB HEMETOLOGY METHOD 08/03/2024 8:59 AM [facility] MCH 31.2 27.0 - 32.0 pcg LAB HEMETOLOGY METHOD 08/03/2024 8:59 AM [facility] MCHC 30.0(L) 32.0 - 37.0 g/dL LAB HEMETOLOGY METHOD 08/03/2024 8:59 AM [facility] RDW 14.6 11.0 - 15.0 % LAB HEMETOLOGY METHOD 08/03/2024 8:59 AM [facility] Platelets 201 130 - 400 K/mcL LAB HEMETOLOGY METHOD 08/03/2024 8:59 AM [facility] MPV 9.6 7.0 - 11.0 FL LAB HEMETOLOGY METHOD 08/03/2024 8:59 AM [facility] NRBC 0.0 <1.0 % LAB HEMETOLOGY METHOD 08/03/2024 8:59 AM [facility] NRBC Absolute 0.00 <0.10 K/mcL LAB HEMETOLOGY METHOD 08/03/2024 8:59 AM [facility] Blood Venous blood specimen / Unknown Venipuncture / Unknown 08/03/2024 5:26 AM EDT 08/03/2024 8:37 AM EDT us Lauren Wiley MD LAB BLOOD ORDERABLES Fin al Result [facility] ([facility]) [facility] [address] [place] [address], documented in this encounter Visit Diagnoses Diagnosis Anemia, unspecified documented in this encounter Additional Health Concerns 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
--- OUTSIDE RECORDS SUMMARY | 2025-01-04 18:55 | XMS_ITS | Encounter Summary ---
Author Organization [employer] [facility] Address [address] [place] [address] Care Team Providers Care Survey Worker Name Role Phone Elder, Lauren Paulino MD Primary Care Provider + Encounter Details Date Type Department Care Team (Late st Contact Info) Description 03/03/2024 Lab Requisition [facility] Lab [address] [facility] [place] [address] Yoav Osorio MD [address] [place] [address] [address] [place] [phone] Essential (primary) hypertension Social History Tobacco Use [...] LAB CHEMISTRY METHOD 03/03/2024 11:04 AM EST [facility] Potassium 4.0 3.5 - 5.5 mmol/L LAB CHEMISTRY METHOD 03/03/2024 11:04 AM EST [facility] Chloride 118(H) 96 - 110 mmol/L LAB CHEMISTRY METHOD 03/03/2024 11:04 AM EST [facility] CO2 25 21 - 32 mmol/L LAB CHEMISTRY METHOD 03/03/2024 11:04 AM [facility] Anion Gap 2(L) 3 - 11 LAB CHEMISTRY METHOD 03/03/2024 11:04 AM [facility] Glucose 90 70 - 100 mg/dL LAB CHEMISTRY METHOD 03/03/2024 11:04 AM [facility] BUN 36(H) 5 - 25 mg/dL LAB CHEMISTRY METHOD 03/03/2024 11:04 AM [facility] Creatinine 0.99 0.70 - 1.30 mg/dL LAB CHEMISTRY METHOD 03/03/2024 11:04 AM [facility] eGFR 82 >=60 mL/min/1. 73m2 LAB CHEMISTRY METHOD 03/03/2024 11:04 AM [facility] Comment:Calculation based on the Chronic Kidney Disease Epidemiology Collaboration (CKD-EPI) equation refit without adjustment for race. 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
--- OUTSIDE RECORDS SUMMARY | 2025-01-04 18:55 | XMS_ITS | Encounter Summary ---
Author Organization [employer] Address [address] [place] [address] Care Team Providers Care Tube Drawer Name Role Phone Lauren Wiley MD Primary Care Provider + Encounter Details Date Type Department Care Team (Late st Contact Info) Description 09/20/2024 Lab Requisition [facility] - Main Lab [address] [place] [address] Lauren Wiley MD [address] [phone] Anemia, unspecified Social History Tobacco Use Types [...] Associated Diagnosis Comments COMPLETE BLOOD COUNT Routine 09/21/2024 5:00 AM EDT Anemia, unspecified BASIC METABOLIC PANEL Routine 09/21/2024 12:54 AM EDT Anemia, unspecified documented in this encounter Results * (ABNORMAL) Complete blood count (09/21/2024 5:00 AM EDT) WBC 4.7(L) 4.8 - 10.8 K/[facility] LAB HEMETOLOGY METHOD 09/21/2024 8:03 AM EDT [facility] RBC 2.30(L) 4.50 - 5.50 M/[facility] LAB HEMETOLOGY METHOD 09/21/2024 8:03 AM EDT [facility] Hemoglobin 7.2(L) 13.5 - 17.5 g/dL LAB HEMETOLOGY METHOD 09/21/2024 8:03 AM EDT [facility] Hematocrit 23.3(L) 42.0 - 54.0 % LAB HEMETOLOGY METHOD 09/21/2024 8:03 AM [facility] MCV 102.6(H) 79.0 - 98.0 FL LAB HEMETOLOGY METHOD 09/21/2024 8:03 AM EDT [facility] MCH 31.7 27.0 - 32.0 pcg LAB HEMETOLOGY METHOD 09/21/2024 8:03 AM EDT [facility] MCHC 30.9(L) 32.0 - 37.0 g/dL LAB HEMETOLOGY METHOD 09/21/2024 8:03 AM [facility] LAB RDW 15.6(H) 11.0 - 15.0 % LAB HEMETOLOGY METHOD 09/21/2024 8:03 [facility] Platelets 211 130 - 400 K/mcL LAB HEMETOLOGY METHOD 09/21/2024 8:03 AM [facility] LAB MPV 9.1 7.0 - 11.0 FL LAB HEMETOLOGY METHOD 09/21/2024 8:03 AM [facility] LAB NRBC 0.0 <1.0 % LAB HEMETOLOGY METHOD 09/21/2024 8:03 AM [facility] LAB NRBC Absolute 0.00 <0.10 K/mcL LAB HEMETOLOGY METHOD 09/21/2024 8:03 AM [facility] LAB Blood Venous blood specimen / Unknown 09/21/2024 5:00 AM EDT 09/21/2024 7:51 AM EDT us Lauren Wiley MD LAB BLOOD ORDERABLES Fin al Result [facility] [address] [place] [address], * (ABNORMAL) Basic metabolic panel (09/21/2024 12:54 AM EDT) Sodium 148(H) 133 - 145 mmol/L LAB CHEMISTRY METHOD 09/21/2024 8:41 AM [facility] Potassium 4.0 3.5 - 5.5 mmol/L LAB CHEMISTRY METHOD 09/21/2024 8:41 AM [facility] Chloride 116(H) 96 - 110 mmol/L LAB CHEMISTRY METHOD 09/21/2024 8:41 AM [facility] LAB CO2 28 21 - 32 mmol/L LAB CHEMISTRY METHOD 09/21/2024 8:41 AM [facility] LAB Anion Gap 4 3 - 11 LAB CHEMISTRY METHOD 09/21/2024 8:41 AM [facility] LAB Glucose 92 70 - 100 mg/dL LAB CHEMISTRY METHOD 09/21/2024 8:41 AM [facility] BUN 38(H) 5 - 25 mg/dL LAB CHEMISTRY METHOD 09/21/2024 8:41 AM [facility] LAB Creatinine 1.05 0.70 - 1.30 mg/dL LAB CHEMISTRY METHOD 09/21/2024 8:41 AM [facility] LAB eGFR 77 >=60 mL/min/1. 73m2 LAB CHEMISTRY METHOD 09/21/2024 8:41 AM [facility] LAB Comment:Calculation based on the Chronic Kidney Disease Epidemiology Collaboration (CKD-EPI) equation refit without adjustment for race. 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
--- OUTSIDE RECORDS SUMMARY | 2025-01-04 18:55 | XMS_ITS | Encounter Summary ---
Author Organization [employer] Address [address] [place] [address] Care Team Providers Care Sales Solutions Representative Name Role Phone Lauren Wiley MD Primary Care Provider + Encounter Details Date Type Department Care Team (Late st Contact Info) Description 12/27/2024 Lab Requisition [facility] - Main Lab [address] [place] [address] Lauren Wiley MD [address] [phone] Anemia, unspecified Social History Tobacco Use Types [...] Associated Diagnosis Comments COMPLETE BLOOD COUNT Routine 12/28/2024 5:35 AM EST Anemia, unspecified BASIC METABOLIC PANEL Routine 12/28/2024 5:35 AM EST Anemia, unspecified documented in this encounter Results * (ABNORMAL) Basic metabolic panel (12/28/2024 5:35 AM EST) Sodium 141 133 - 145 mmol/L LAB CHEMISTRY METHOD 12/28/2024 9:50 AM EST [facility] Potassium 3.9 3.5 - 5.5 mmol/L LAB CHEMISTRY METHOD 12/28/2024 9:50 AM EST [facility] Chloride 114(H) 96 - 110 mmol/L LAB CHEMISTRY METHOD 12/28/2024 9:50 AM EST [facility] CO2 22 21 - 32 mmol/L LAB CHEMISTRY METHOD 12/28/2024 9:50 AM [facility] LAB Anion Gap 5 3 - 11 LAB CHEMISTRY METHOD 12/28/2024 9:50 AM [facility] LAB Glucose 101(H) 70 - 100 mg/dL LAB CHEMISTRY METHOD 12/28/2024 9:50 AM [facility] LAB BUN 59(H) 5 - 25 mg/dL LAB CHEMISTRY METHOD 12/28/2024 9:50 AM [facility] LAB Creatinine 1.61(H) 0.70 - 1.30 mg/dL LAB CHEMISTRY METHOD 12/28/2024 9:50 AM [facility] LAB eGFR 46(L) >=60 mL/min/1. 73m2 LAB CHEMISTRY METHOD 12/28/2024 9:50 AM [facility] LAB Comment:Calculation based on the Chronic Kidney Disease Epidemiology Collaboration (CKD-EPI) equation refit without adjustment for race. BUN/Creatinine Ratio 36.6 LAB CHEMISTRY METHOD 12/28/2024 9:50 AM [facility] LAB Calcium 9.3 8.5 - 10.5 mg/dL LAB CHEMISTRY METHOD 12/28/2024 9:50 AM [facility] Blood Venous blood specimen / Unknown Venipuncture / Unknown 12/28/2024 5:35 AM EST 12/28/2024 9:16 AM EST us Lauren Wiley MD LAB BLOOD ORDERABLES Fin al Result [facility] [address] [place] [address], * (ABNORMAL) Complete blood count (12/28/2024 5:35 AM EST) WBC 4.0(L) 4.8 - 10.8 K/mcL LAB HEMETOLOGY METHOD 12/28/2024 9:22 AM [facility] LAB RBC 2.60(L) 4.50 - 5.50 M/mcL LAB HEMETOLOGY METHOD 12/28/2024 9:22 AM [facility] Hemoglobin 8.1(L) 13.5 - 17.5 g/dL LAB HEMETOLOGY METHOD 12/28/2024 9:22 AM [facility] Hematocrit 25.9(L) 42.0 - 54.0 % LAB HEMETOLOGY METHOD 12/28/2024 9:22 AM [facility] LAB MCV 98.9(H) 79.0 - 98.0 FL LAB HEMETOLOGY METHOD 12/28/2024 9:22 AM [facility] LAB MCH 30.9 27.0 - 32.0 pcg LAB HEMETOLOGY METHOD 12/28/2024 9:22 AM [facility] LAB MCHC 31.3(L) 32.0 - 37.0 g/dL LAB HEMETOLOGY METHOD 12/28/2024 9:22 AM [facility] LAB RDW 15.9(H) 11.0 - 15.0 % LAB HEMETOLOGY METHOD 12/28/2024 9:22 AM [facility] LAB Platelets 173 130 - 400 K/mcL LAB HEMETOLOGY METHOD 12/28/2024 9:22 AM [facility] LAB MPV 9.2 7.0 - 11.0 FL LAB HEMETOLOGY METHOD 12/28/2024 9:22 AM [facility] LAB NRBC 0.0 <1.0 % LAB HEMETOLOGY METHOD 12/28/2024 9:22 AM [facility] LAB NRBC Absolute 0.00 <0.10 K/mcL LAB HEMETOLOGY METHOD 12/28/2024 9:22 AM [facility] LAB Blood Venous blood specimen / Unknown Venipuncture / Unknown 12/28/2024 5:35 AM EST 12/28/2024 9:16 AM EST us Lauren Wiley MD LAB BLOOD ORDERABLES Fin al Result [facility] ([facility]) [facility] LAB [address] [place] [address], documented in this encounter Visit Diagnoses Diagnosis Anemia, unspecified documented in this encounter Additional Health Concerns 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
--- OUTSIDE RECORDS SUMMARY | 2025-01-04 18:55 | XMS_ITS | Encounter Summary ---
Author Organization [employer] [facility] Address [address] [place] [address] Care Team Providers Care Phlebotomist Associate Name Role Phone Lauren Wiley MD Primary Care Provider + Encounter Details Date Type Department Care Team (Late st Contact Info) Description 02/14/2024 Lab Requisition [facility] Lab [address] [place] [address] Lauren Wiley MD [address] [phone] Pyuria Social History Tobacco Use Types Packs/Day [...] LAB CHEMISTRY METHOD 02/14/2024 11:12 AM EST [facility] Potassium 3.6 3.5 - 5.5 mmol/L LAB CHEMISTRY METHOD 02/14/2024 11:12 AM EST [facility] Chloride 108 96 - 110 mmol/L LAB CHEMISTRY METHOD 02/14/2024 11:12 AM EST [facility] CO2 32 21 - 32 mmol/L LAB CHEMISTRY METHOD 02/14/2024 11:12 AM [facility] LAB Anion Gap 2(L) 3 - 11 LAB CHEMISTRY METHOD 02/14/2024 11:12 AM [facility] Glucose 106(H) 70 - 100 mg/dL LAB CHEMISTRY METHOD 02/14/2024 11:12 AM [facility] LAB BUN 19 5 - 25 mg/dL LAB CHEMISTRY METHOD 02/14/2024 11:12 AM [facility] Creatinine 0.94 0.70 - 1.30 mg/dL LAB CHEMISTRY METHOD 02/14/2024 11:12 AM [facility] LAB eGFR 88 >=60 mL/min/1. 73m2 LAB CHEMISTRY METHOD 02/14/2024 11:12 AM [facility] Comment:Calculation based on the Chronic Kidney Disease Epidemiology Collaboration (CKD-EPI) equation refit without adjustment for race. BUN/Creatinine Ratio 20.2 LAB CHEMISTRY METHOD 02/14/2024 11:12 AM [facility] Calcium 8.6 8.5 - 10.5 mg/dL LAB CHEMISTRY METHOD 02/14/2024 11:12 AM [facility] AST (SGOT) 14 10 - 42 unit/L LAB CHEMISTRY METHOD 02/14/2024 11:12 AM [facility] ALT (SGPT) 12 10 - 60 unit/L LAB CHEMISTRY METHOD 02/14/2024 11:12 AM [facility] Alkaline Phosphatase 85 42 - 121 unit/L LAB CHEMISTRY METHOD 02/14/2024 11:12 AM [facility] Total Protein 4.9(L) 6.0 - 8.0 g/dL LAB CHEMISTRY METHOD 02/14/2024 11:12 AM [facility] Albumin 2.1(L) 3.2 - 5.0 g/dL LAB CHEMISTRY METHOD 02/14/2024 11:12 AM [facility] Total Bilirubin 0.7 0.0 - 1.4 mg/dL LAB CHEMISTRY METHOD 02/14/2024 11:12 AM [facility] Blood Venous blood specimen / Unknown Venipuncture / Unknown 02/14/2024 7:10 AM EST 02/14/2024 9:37 AM EST us Lauren Wiley MD LAB BLOOD ORDERABLES Fin al Result [facility] [address] [place] [address], * (ABNORMAL) Complete blood count (02/14/2024 7:10 AM EST) WBC 4.7(L) 4.8 - 10.8 K/mcL LAB HEMETOLOGY METHOD 02/14/2024 10:38 AM [facility] RBC 3.20(L) 4.50 - 5.50 M/mcL LAB HEMETOLOGY METHOD 02/14/2024 10:38 AM [facility] Hemoglobin 10.1(L) 13.5 - 17.5 g/dL LAB HEMETOLOGY METHOD 02/14/2024 10:38 AM [facility] Hematocrit 30.9(L) 42.0 - 54.0 % LAB HEMETOLOGY METHOD 02/14/2024 10:38 AM [facility] LAB MCV 95.4 79.0 - 98.0 FL LAB HEMETOLOGY METHOD 02/14/2024 10:38 AM [facility] MCH 31.2 27.0 - 32.0 pcg LAB HEMETOLOGY METHOD 02/14/2024 10:38 AM [facility] LAB MCHC 32.7 32.0 - 37.0 g/dL LAB HEMETOLOGY METHOD 02/14/2024 10:38 AM [facility] LAB RDW 15.1(H) 11.0 - 15.0 % LAB HEMETOLOGY METHOD 02/14/2024 10:38 AM EST [facility] Platelets 145 130 - 400 K/mcL LAB HEMETOLOGY METHOD 02/14/2024 10:38 AM EST [facility] LAB MPV 9.6 7.0 - 11.0 FL LAB HEMETOLOGY METHOD 02/14/2024 10:38 AM EST [facility] NRBC 0.0 <1.0 % LAB HEMETOLOGY METHOD 02/14/2024 10:38 AM EST [facility] NRBC Absolute 0.00 <0.10 K/mcL LAB HEMETOLOGY METHOD 02/14/2024 10:38 AM [facility] Blood Venous blood specimen / Unknown Venipuncture / Unknown 02/14/2024 7:10 AM EST 02/14/2024 9:37 AM EST us Lauren Wiley MD LAB BLOOD ORDERABLES Fin al Result [facility] [address] [place] [address], documented in this encounter Visit Diagnoses Diagnosis Pyuria Other nonspecific finding on examination of urine documented in this encounter Additional Health Concerns 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
--- OUTSIDE RECORDS SUMMARY | 2025-01-04 18:55 | XMS_ITS | Encounter Summary ---
Author Organization [employer] Address [address] [place] [address] Care Team Providers Care Spreading Machine Operator Name Role Phone Lauren Wiley MD Primary Care Provider + Encounter Details Date Type Department Care Team (Late st Contact Info) Description 09/24/2024 Lab Requisition [facility] - Main Lab [address] [facility] [place] [address] Lauren Wiley MD [address] [phone] Essential (primary) hypertension; Chronic kidney disease, unspecified [...] documented as of this encounter Care Teams Spreading Machine Operator Relationship Specialty Start Date End Date Lauren Wiley MD [address] [phone] PCP - General Family Medicine 12/01/24 documented as of this encounter
--- OUTSIDE RECORDS SUMMARY | 2025-01-04 18:55 | XMS_ITS | Encounter Summary ---
Author Organization [employer] Address [address] [place] [address] Care Team Providers Care Margin Clerk Name Role Phone Lauren Wiley MD Primary Care Provider + Encounter Details Date Type Department Care Team (Late st Contact Info) Description 07/23/2024 Lab Requisition [facility] - Main Lab [address] [place] [address] Lauren Wiley MD [address] [phone] Essential (primary) hypertension; Chronic kidney disease, unspecified [...] LAB CHEMISTRY METHOD 07/24/2024 12:45 PM EDT [facility] Blood Venous blood specimen / Unknown Venipuncture / Unknown 07/24/2024 7:00 AM EDT 07/24/2024 10:26 AM EDT Lauren Wiley MD LAB BLOOD ORDERABLES Fin al Result [facility] [address] [place] [address], * (ABNORMAL) Comprehensive metabolic panel (07/24/2024 7:00 AM EDT) Sodium 149(H) 133 - 145 mmol/L LAB CHEMISTRY METHOD 07/24/2024 12:43 PM [facility] Potassium 4.5 3.5 - 5.5 mmol/L LAB CHEMISTRY METHOD 07/24/2024 12:43 PM [facility] Chloride 114(H) 96 - 110 mmol/L LAB CHEMISTRY METHOD 07/24/2024 12:43 PM [facility] CO2 29 21 - 32 mmol/L LAB CHEMISTRY METHOD 07/24/2024 12:43 PM [facility] LAB Anion Gap 6 3 - 11 LAB CHEMISTRY METHOD 07/24/2024 12:43 PM [facility] Glucose 121(H) 70 - 100 mg/dL LAB CHEMISTRY METHOD 07/24/2024 12:43 PM [facility] BUN 42(H) 5 - 25 mg/dL LAB CHEMISTRY METHOD 07/24/2024 12:43 PM [facility] Creatinine 1.64(H) 0.70 - 1.30 mg/dL LAB CHEMISTRY METHOD 07/24/2024 12:43 PM [facility] LAB eGFR 45(L) >=60 mL/min/1. 73m2 LAB CHEMISTRY METHOD 07/24/2024 12:43 PM [facility] LAB Comment:Calculation based on the Chronic Kidney Disease Epidemiology Collaboration (CKD-EPI) equation refit without adjustment for race. BUN/Creatinine Ratio 25.6 LAB CHEMISTRY METHOD 07/24/2024 12:43 PM [facility] Calcium 8.9 8.5 - 10.5 mg/dL LAB CHEMISTRY METHOD 07/24/2024 12:43 PM [facility] LAB AST (SGOT) 12 10 - 42 unit/L LAB CHEMISTRY METHOD 07/24/2024 12:43 PM [facility] LAB ALT (SGPT) 21 10 - 60 unit/L LAB CHEMISTRY METHOD 07/24/2024 12:43 PM [facility] LAB Alkaline Phosphatase 92 42 - 121 unit/L LAB CHEMISTRY METHOD 07/24/2024 12:43 PM [facility] LAB Total Protein 6.4 6.0 - 8.0 g/dL LAB CHEMISTRY METHOD 07/24/2024 12:43 PM [facility] Albumin 2.2(L) 3.2 - 5.0 g/dL LAB CHEMISTRY METHOD 07/24/2024 12:43 PM [facility] Total Bilirubin 0.5 0.0 - 1.4 mg/dL LAB CHEMISTRY METHOD 07/24/2024 12:43 PM [facility] Blood Venous blood specimen / Unknown Venipuncture / Unknown 07/24/2024 7:00 AM EDT 07/24/2024 10:26 AM EDT us Lauren Wiley MD LAB BLOOD ORDERABLES Fin al Result [facility] [address] [place] [address], * (ABNORMAL) Complete blood count (07/24/2024 7:00 AM EDT) WBC 4.3(L) 4.8 - 10.8 K/mcL LAB HEMETOLOGY METHOD 07/24/2024 11:24 AM [facility] LAB RBC 2.20(L) 4.50 - 5.50 M/mcL LAB HEMETOLOGY METHOD 07/24/2024 11:24 AM [facility] Hemoglobin 6.8(L) 13.5 - 17.5 g/dL LAB HEMETOLOGY METHOD 07/24/2024 11:24 AM [facility] LAB Hematocrit 22.3(L) 42.0 - 54.0 % LAB HEMETOLOGY METHOD 07/24/2024 11:24 AM [facility] LAB MCV 101.8(H) 79.0 - 98.0 FL LAB HEMETOLOGY METHOD 07/24/2024 11:24 AM [facility] LAB MCH 31.1 27.0 - 32.0 pcg LAB HEMETOLOGY METHOD 07/24/2024 11:24 AM [facility] MCHC 30.5(L) 32.0 - 37.0 g/dL LAB HEMETOLOGY METHOD 07/24/2024 11:24 AM [facility] LAB RDW 13.2 11.0 - 15.0 % LAB HEMETOLOGY METHOD 07/24/2024 11:24 AM [facility] LAB Platelets 187 130 - 400 K/mcL LAB HEMETOLOGY METHOD 07/24/2024 11:24 AM [facility] LAB MPV 9.5 7.0 - 11.0 FL LAB HEMETOLOGY METHOD 07/24/2024 11:24 AM [facility] LAB NRBC 0.0 <1.0 % LAB HEMETOLOGY METHOD 07/24/2024 11:24 AM [facility] LAB NRBC Absolute 0.00 <0.10 K/mcL LAB HEMETOLOGY METHOD 07/24/2024 11:24 AM [facility] Blood Venous blood specimen / Unknown Venipuncture / Unknown 07/24/2024 7:00 AM EDT 07/24/2024 10:22 AM EDT us Lauren Wiley MD LAB BLOOD ORDERABLES Fin al Result [facility] ([facility]) [facility] [address] [place] [address], documented in this encounter Visit Diagnoses Diagnosis Essential (primary) hypertension Unspecified essential hypertension Chronic kidney disease, unspecified documented in this encounter Additional Health Concerns 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
--- OUTSIDE RECORDS SUMMARY | 2025-01-04 18:55 | XMS_ITS | Encounter Summary ---
Author Organization [employer] Address [address] [place] [address] Care Team Providers Care Hr Manager Name Role Phone Lauren Wiley MD Primary Care Provider + Encounter Details Date Type Department Care Team (Late st Contact Info) Description 02/25/2024 Lab Requisition [facility] - Main Lab [address] [place] [address] Lauren Wiley MD [address] [phone] Essential (primary) hypertension Social History Tobacco Use [...] mmol/L LAB CHEMISTRY METHOD 02/25/2024 12:38 PM [facility] LAB CO2 25 21 - 32 mmol/L LAB CHEMISTRY METHOD 02/25/2024 12:38 PM [facility] LAB Anion Gap 4 3 - 11 LAB CHEMISTRY METHOD 02/25/2024 12:38 PM [facility] Glucose 106(H) 70 - 100 mg/dL LAB CHEMISTRY METHOD 02/25/2024 12:38 PM [facility] BUN 38(H) 5 - 25 mg/dL LAB CHEMISTRY METHOD 02/25/2024 12:38 PM [facility] Creatinine 1.01 0.70 - 1.30 mg/dL LAB CHEMISTRY METHOD 02/25/2024 12:38 PM [facility] LAB eGFR 81 >=60 mL/min/1. 73m2 LAB CHEMISTRY METHOD 02/25/2024 12:38 PM [facility] LAB Comment:Calculation based on the Chronic Kidney Disease Epidemiology Collaboration (CKD-EPI) equation refit without adjustment for race. BUN/Creatinine Ratio 37.6 LAB CHEMISTRY METHOD 02/25/2024 12:38 PM [facility] Calcium 8.6 8.5 - 10.5 mg/dL LAB CHEMISTRY METHOD 02/25/2024 12:38 PM [facility] LAB AST (SGOT) 18 10 - 42 unit/L LAB CHEMISTRY METHOD 02/25/2024 12:38 PM [facility] ALT (SGPT) 22 10 - 60 unit/L LAB CHEMISTRY METHOD 02/25/2024 12:38 PM [facility] Alkaline Phosphatase 80 42 - 121 unit/L LAB CHEMISTRY METHOD 02/25/2024 12:38 PM [facility] Total Protein 5.6(L) 6.0 - 8.0 g/dL LAB CHEMISTRY METHOD 02/25/2024 12:38 PM [facility] Albumin 2.3(L) 3.2 - 5.0 g/dL LAB CHEMISTRY METHOD 02/25/2024 12:38 PM [facility] Total Bilirubin 0.4 0.0 - 1.4 mg/dL LAB CHEMISTRY METHOD 02/25/2024 12:38 PM [facility] Blood Venous blood specimen / Unknown Venipuncture / Unknown 02/25/2024 5:00 AM EST 02/25/2024 10:40 AM EST us Lauren Wiley MD LAB BLOOD ORDERABLES Fin al Result [facility] [address] [place] [address], * (ABNORMAL) Complete blood count (02/25/2024 5:00 AM EST) WBC 4.4(L) 4.8 - 10.8 K/mcL LAB HEMETOLOGY METHOD 02/25/2024 12:35 PM [facility] RBC 3.10(L) 4.50 - 5.50 M/mcL LAB HEMETOLOGY METHOD 02/25/2024 12:35 PM [facility] Hemoglobin 9.9(L) 13.5 - 17.5 g/dL LAB HEMETOLOGY METHOD 02/25/2024 12:35 PM [facility] Hematocrit 31.0(L) 42.0 - 54.0 % LAB HEMETOLOGY METHOD 02/25/2024 12:35 PM [facility] MCV 99.7(H) 79.0 - 98.0 FL LAB HEMETOLOGY METHOD 02/25/2024 12:35 PM [facility] MCH 31.8 27.0 - 32.0 pcg LAB HEMETOLOGY METHOD 02/25/2024 12:35 PM [facility] MCHC 31.9(L) 32.0 - 37.0 g/dL LAB HEMETOLOGY METHOD 02/25/2024 12:35 PM EST [facility] LAB RDW 15.5(H) 11.0 - 15.0 % LAB HEMETOLOGY METHOD 02/25/2024 12:35 PM EST [facility] Platelets 189 130 - 400 K/mcL LAB HEMETOLOGY METHOD 02/25/2024 12:35 PM [facility] MPV 10.5 7.0 - 11.0 FL LAB HEMETOLOGY METHOD 02/25/2024 12:35 PM [facility] NRBC 0.0 <1.0 % LAB HEMETOLOGY METHOD 02/25/2024 12:35 PM [facility] LAB NRBC Absolute 0.00 <0.10 K/mcL LAB HEMETOLOGY METHOD 02/25/2024 12:35 PM [facility] Blood Venous blood specimen / Unknown Venipuncture / Unknown 02/25/2024 5:00 AM EST 02/25/2024 10:40 AM EST us Lauren Wiley MD LAB BLOOD ORDERABLES Fin al Result [facility] [address] [place] [address], documented in this encounter Visit Diagnoses Diagnosis Essential (primary) hypertension Unspecified essential hypertension documented in this encounter Additional Health Concerns 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
--- OUTSIDE RECORDS SUMMARY | 2025-01-04 18:55 | XMS_ITS | Encounter Summary ---
Author Organization [employer] Address [address] [place] [address] Care Team Providers Care Lining Repairer Name Role Phone Lauren Wiley MD Primary Care Provider + Encounter Details Date Type Department Care Team (Late st Contact Info) Description 07/28/2024 Lab Requisition [facility] - Main Lab [address] [place] [address] Lauren Wiley MD [address] [phone] Essential (primary) hypertension; Chronic kidney disease, unspecified [...] Associated Diagnosis Comments COMPLETE BLOOD COUNT Routine 07/31/2024 8:13 AM EDT Essential (primary) hypertension Chronic kidney disease, unspecified CREATINE KINASE Routine 07/31/2024 8:13 AM EDT Essential (primary) hypertension Chronic kidney disease, unspecified COMPREHENSIVE METABOLIC PANEL Routine 07/31/2024 8:13 AM EDT Essential (primary) hypertension Chronic kidney disease, unspecified documented in this encounter Results * (ABNORMAL) Comprehensive metabolic panel (07/31/2024 8:13 AM EDT) Sodium 147(H) 133 - 145 mmol/L LAB CHEMISTRY METHOD 07/31/2024 1:41 PM EDT [facility] Potassium 5.1 3.5 - 5.5 mmol/L LAB CHEMISTRY METHOD 07/31/2024 1:41 PM [facility] Chloride 115(H) 96 - 110 mmol/L LAB CHEMISTRY METHOD 07/31/2024 1:41 PM [facility] CO2 27 21 - 32 mmol/L LAB CHEMISTRY METHOD 07/31/2024 1:41 PM [facility] Anion Gap 5 3 - 11 LAB CHEMISTRY METHOD 07/31/2024 1:41 PM [facility] Glucose 92 70 - 100 mg/dL LAB CHEMISTRY METHOD 07/31/2024 1:41 PM [facility] BUN 35(H) 5 - 25 mg/dL LAB CHEMISTRY METHOD 07/31/2024 1:41 PM [facility] Creatinine 1.26 0.70 - 1.30 mg/dL LAB CHEMISTRY METHOD 07/31/2024 1:41 PM [facility] LAB eGFR 62 >=60 mL/min/1. 73m2 LAB CHEMISTRY METHOD 07/31/2024 1:41 PM [facility] LAB Comment:Calculation based on the Chronic Kidney Disease Epidemiology Collaboration (CKD-EPI) equation refit without adjustment for race. BUN/Creatinine Ratio 27.8 LAB CHEMISTRY METHOD 07/31/2024 1:41 PM [facility] Calcium 8.7 8.5 - 10.5 mg/dL LAB CHEMISTRY METHOD 07/31/2024 1:41 PM [facility] AST (SGOT) 21 10 - 42 unit/L LAB CHEMISTRY METHOD 07/31/2024 1:41 PM [facility] ALT (SGPT) 26 10 - 60 unit/L LAB CHEMISTRY METHOD 07/31/2024 1:41 PM [facility] Alkaline Phosphatase 104 42 - 121 unit/L LAB CHEMISTRY METHOD 07/31/2024 1:41 PM [facility] Total Protein 6.5 6.0 - 8.0 g/dL LAB CHEMISTRY METHOD 07/31/2024 1:41 PM EDT [facility] Albumin 2.4(L) 3.2 - 5.0 g/dL LAB CHEMISTRY METHOD 07/31/2024 1:41 PM EDT [facility] Total Bilirubin 0.6 0.0 - 1.4 mg/dL LAB CHEMISTRY METHOD 07/31/2024 1:41 PM EDT [facility] Blood Venous blood specimen / Unknown Venipuncture / Unknown 07/31/2024 8:13 AM EDT 07/31/2024 10:56 AM EDT us Lauren Wiley MD LAB BLOOD ORDERABLES Fin al Result [facility] [address] [place] [address], * (ABNORMAL) Complete blood count (07/31/2024 8:13 AM EDT) WBC 5.9 4.8 - 10.8 K/mcL LAB HEMETOLOGY METHOD 07/31/2024 2:22 PM T [facility] RBC 2.80(L) 4.50 - 5.50 M/mcL LAB HEMETOLOGY METHOD 07/31/2024 2:22 PM EDT [facility] Hemoglobin 8.7(L) 13.5 - 17.5 g/dL LAB HEMETOLOGY METHOD 07/31/2024 2:22 PM EDT [facility] Hematocrit 27.9(L) 42.0 - 54.0 % LAB HEMETOLOGY METHOD 07/31/2024 2:22 PM EDT [facility] MCV 101.5(H) 79.0 - 98.0 FL LAB HEMETOLOGY METHOD 07/31/2024 2:22 PM EDT [facility] MCH 31.6 27.0 - 32.0 pcg LAB HEMETOLOGY METHOD 07/31/2024 2:22 PM EDT [facility] MCHC 31.2(L) 32.0 - 37.0 g/dL LAB HEMETOLOGY METHOD 07/31/2024 2:22 PM EDT [facility] RDW 13.6 11.0 - 15.0 % LAB HEMETOLOGY METHOD 07/31/2024 2:22 PM EDT [facility] Platelets 184 130 - 400 K/mcL LAB HEMETOLOGY METHOD 07/31/2024 2:22 PM EDT [facility] MPV 9.8 7.0 - 11.0 FL LAB HEMETOLOGY METHOD 07/31/2024 2:22 PM EDT [facility] NRBC 0.0 <1.0 % LAB HEMETOLOGY METHOD 07/31/2024 2:22 PM EDT [facility] NRBC Absolute 0.00 <0.10 K/mcL LAB HEMETOLOGY METHOD 07/31/2024 2:22 PM EDT [facility] Blood Venous blood specimen / Unknown Venipuncture / Unknown 07/31/2024 8:13 AM EDT 07/31/2024 10:56 AM EDT Lauren Wiley MD LAB BLOOD ORDERABLES Fin al Result [facility] [address] [place] [address], * Creatine kinase (07/31/2024 8:13 AM EDT) Total CK 26 22 - 269 unit/L LAB CHEMISTRY METHOD 07/31/2024 1:20 PM EDT [facility] Blood Venous blood specimen / Unknown Venipuncture / Unknown 07/31/2024 8:13 AM EDT 07/31/2024 10:56 AM EDT us Lauren Wiley MD LAB BLOOD ORDERABLES Fin al Result [facility] ([facility]) [facility] [address] [place] [address], documented in this encounter Visit Diagnoses Diagnosis Essential (primary) hypertension Unspecified essential hypertension Chronic kidney disease, unspecified documented in this encounter Additional Health Concerns Infection Onset Date 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
--- OUTSIDE RECORDS SUMMARY | 2025-01-04 18:55 | XMS_ITS | Encounter Summary ---
Author Organization [employer] Address [address] [place] [address] Care Team Providers Care Clinical Academic Allergist Name Role Phone Lauren Wiley MD Primary Care Provider + Encounter Details Date Type Department Care Team (Late st Contact Info) Description 12/20/2024 Lab Requisition [facility] [address] [place] [address] Lauren Wiley MD [address] [phone] Anemia, unspecified Social History Tobacco Use Types [...] Associated Diagnosis Comments COMPLETE BLOOD COUNT Routine 12/21/2024 8:49 AM EDT Anemia, unspecified BASIC METABOLIC PANEL Routine 12/21/2024 8:49 AM EDT Anemia, unspecified documented in this encounter Results * (ABNORMAL) Complete blood count (12/21/2024 8:49 AM EDT) WBC 4.7(L) 4.8 - 10.8 K/[facility] LAB HEMETOLOGY METHOD 12/21/2024 10:15 AM EDT [facility] LAB RBC 2.60(L) 4.50 - 5.50 M/[facility] LAB HEMETOLOGY METHOD 12/21/2024 10:15 AM EDT [facility] LAB Hemoglobin 8.1(L) 13.5 - 17.5 g/dL LAB HEMETOLOGY METHOD 12/21/2024 10:15 AM [facility] LAB Hematocrit 25.8(L) 42.0 - 54.0 % LAB HEMETOLOGY METHOD 12/21/2024 10:15 AM [facility] LAB MCV 98.9(H) 79.0 - 98.0 FL LAB HEMETOLOGY METHOD 12/21/2024 10:15 AM [facility] LAB MCH 31.0 27.0 - 32.0 pcg LAB HEMETOLOGY METHOD 12/21/2024 10:15 AM [facility] MCHC 31.4(L) 32.0 - 37.0 g/dL LAB HEMETOLOGY METHOD 12/21/2024 10:15 AM [facility] RDW 15.5(H) 11.0 - 15.0 % LAB HEMETOLOGY METHOD 12/21/2024 10:15 AM [facility] Platelets 190 130 - 400 K/mcL LAB HEMETOLOGY METHOD 12/21/2024 10:15 AM [facility] MPV 9.3 7.0 - 11.0 FL LAB HEMETOLOGY METHOD 12/21/2024 10:15 AM [facility] NRBC 0.0 <1.0 % LAB HEMETOLOGY METHOD 12/21/2024 10:15 AM [facility] NRBC Absolute 0.00 <0.10 K/mcL LAB HEMETOLOGY METHOD 12/21/2024 10:15 AM [facility] Blood Venous blood specimen / Unknown Venipuncture / Unknown 12/21/2024 8:49 AM EDT 12/21/2024 9:51 AM EDT Lauren Wiley MD LAB BLOOD ORDERABLES Fin al Result [facility] [address] [place] [address], [place] [phone] * (ABNORMAL) Basic metabolic panel (12/21/2024 8:49 AM EDT) Sodium 140 133 - 145 mmol/L LAB CHEMISTRY METHOD 12/21/2024 11:07 AM [facility] Potassium 3.9 3.5 - 5.5 mmol/L LAB CHEMISTRY METHOD 12/21/2024 11:07 AM [facility] Chloride 112(H) 96 - 110 mmol/L LAB CHEMISTRY METHOD 12/21/2024 11:07 AM [facility] CO2 22 21 - 32 mmol/L LAB CHEMISTRY METHOD 12/21/2024 11:07 AM [facility] Anion Gap 6 3 - 11 LAB CHEMISTRY METHOD 12/21/2024 11:07 AM [facility] Glucose 93 70 - 100 mg/dL LAB CHEMISTRY METHOD 12/21/2024 11:07 AM [facility] BUN 60(H) 5 - 25 mg/dL LAB CHEMISTRY METHOD 12/21/2024 11:07 AM [facility] Creatinine 1.64(H) 0.70 - 1.30 mg/dL LAB CHEMISTRY METHOD 12/21/2024 11:07 AM [facility] LAB eGFR 45(L) >=60 mL/min/1. 73m2 LAB CHEMISTRY METHOD 12/21/2024 11:07 AM [facility] LAB Comment:Calculation based on the Chronic Kidney Disease Epidemiology Collaboration (CKD-EPI) equation refit without adjustment for race. BUN/Creatinine Ratio 36.6 LAB CHEMISTRY METHOD 12/21/2024 11:07 AM [facility] Calcium 8.7 8.5 - 10.5 mg/dL LAB CHEMISTRY METHOD 12/21/2024 11:07 AM [facility] Blood Venous blood specimen / Unknown Venipuncture / Unknown 12/21/2024 8:49 AM EDT 12/21/2024 9:51 AM EDT Lauren Wiley MD LAB BLOOD ORDERABLES Fin al Result [facility] ([facility]) [facility] [address] [place] [address], documented in this encounter Visit Diagnoses Diagnosis Anemia, unspecified documented in this encounter Additional Health Concerns Infection Onset 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
--- OUTSIDE RECORDS SUMMARY | 2025-01-04 18:55 | XMS_ITS | Encounter Summary ---
Author Organization [employer] Address [address] [place] [address] Care Team Providers Care Hadoop Software Engineer Name Role Phone Lauren Wiley MD Primary Care Provider + Encounter Details Date Type Department Care Team (Late st Contact Info) Description 07/26/[address] [facility] - Main Lab [address] [place] [address] Lauren Wiley MD [address] [phone] Chronic kidney disease, unspecified; Essential (primary) hypertension Social History Tobacco [...] Associated Diagnosis Comments COMPLETE BLOOD COUNT Routine 07/26/2024 6:10 AM EDT Chronic kidney disease, unspecified Essential (primary) hypertension BASIC METABOLIC PANEL Routine 07/26/2024 6:10 AM EDT Chronic kidney disease, unspecified Essential (primary) hypertension documented in this encounter Results * (ABNORMAL) Basic metabolic panel (07/26/2024 6:10 AM EDT) Sodium 147(H) 133 - 145 mmol/L LAB CHEMISTRY METHOD 07/26/2024 9:15 AM EDT [facility] Potassium 4.3 3.5 - 5.5 mmol/L LAB CHEMISTRY METHOD 07/26/2024 9:15 AM EDT [facility] Chloride 114(H) 96 - 110 mmol/L LAB CHEMISTRY METHOD 07/26/2024 9:15 AM [facility] CO2 29 21 - 32 mmol/L LAB CHEMISTRY METHOD 07/26/2024 9:15 AM [facility] Anion Gap 4 3 - 11 LAB CHEMISTRY METHOD 07/26/2024 9:15 AM [facility] Glucose 116(H) 70 - 100 mg/dL LAB CHEMISTRY METHOD 07/26/2024 9:15 AM [facility] BUN 47(H) 5 - 25 mg/dL LAB CHEMISTRY METHOD 07/26/2024 9:15 AM [facility] Creatinine 1.44(H) 0.70 - 1.30 mg/dL LAB CHEMISTRY METHOD 07/26/2024 9:15 AM [facility] eGFR 53(L) >=60 mL/min/1. 73m2 LAB CHEMISTRY METHOD 07/26/2024 9:15 AM [facility] Comment:Calculation based on the Chronic Kidney Disease Epidemiology Collaboration (CKD-EPI) equation refit without adjustment for race. BUN/Creatinine Ratio 32.6 LAB CHEMISTRY METHOD 07/26/2024 9:15 AM [facility] Calcium 8.7 8.5 - 10.5 mg/dL LAB CHEMISTRY METHOD 07/26/2024 9:15 AM [facility] Blood Venous blood specimen / Unknown Venipuncture / Unknown 07/26/2024 6:10 AM EDT 07/26/2024 7:51 AM EDT us Lauren Wiley MD LAB BLOOD ORDERABLES Fin al Result [facility] LAB [address] [place] [address], * (ABNORMAL) Complete blood count (07/26/2024 6:10 AM EDT) [facility] WBC 4.0(L) 4.8 - 10.8 K/mcL LAB HEMETOLOGY METHOD 07/26/2024 9:21 AM [facility] RBC 2.10(L) 4.50 - 5.50 M/mcL LAB HEMETOLOGY METHOD 07/26/2024 9:21 AM [facility] Hemoglobin 6.4(LL) 13.5 - 17.5 g/dL LAB HEMETOLOGY METHOD 07/26/2024 9:21 AM [facility] Hematocrit 20.8(L) 42.0 - 54.0 % LAB HEMETOLOGY METHOD 07/26/2024 9:21 AM [facility] MCV 101.9(H) 79.0 - 98.0 FL LAB HEMETOLOGY METHOD 07/26/2024 9:21 AM [facility] MCH 30.6 27.0 - 32.0 pcg LAB HEMETOLOGY METHOD 07/26/2024 9:21 AM [facility] MCHC 30.0(L) 32.0 - 37.0 g/dL LAB HEMETOLOGY METHOD 07/26/2024 9:21 AM [facility] RDW 13.3 11.0 - 15.0 % LAB HEMETOLOGY METHOD 07/26/2024 9:21 AM [facility] Platelets 180 130 - 400 K/mcL LAB HEMETOLOGY METHOD 07/26/2024 9:21 AM [facility] MPV 9.5 7.0 - 11.0 FL LAB HEMETOLOGY METHOD 07/26/2024 9:21 AM [facility] NRBC 0.0 <1.0 % LAB HEMETOLOGY METHOD 07/26/2024 9:21 AM [facility] NRBC Absolute 0.00 <0.10 K/mcL LAB HEMETOLOGY METHOD 07/26/2024 9:21 AM EDT [facility] Blood Venous blood specimen / Unknown Venipuncture / Unknown 07/26/2024 6:10 AM EDT 07/26/2024 7:51 AM EDT us Lauren Wiley MD LAB BLOOD ORDERABLES Fin al Result [facility] [address] [place] [address], documented in this encounter Visit Diagnoses Diagnosis Chronic kidney disease, unspecified Essential (primary) hypertension Unspecified essential hypertension documented in this encounter Additional Health Concerns Infection Onset 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
--- OUTSIDE RECORDS SUMMARY | 2025-01-04 18:55 | XMS_ITS | Encounter Summary ---
Author Organization [employer] Address [address] [place] [address] Care Team Providers Care Associate Professor Of Geology Name Role Phone Lauren Wiley MD Primary Care Provider + Encounter Details Date Type Department Care Team (Late st Contact Info) Description 12/27/2023 Lab Requisition [facility] - Main Lab [address] [place] [address] Lauren Wiley MD [address] [address] Anemia, unspecified; Essential (primary) hypertension Social History [...] Travel phlebotomy fee (12/27/2023 9:02 AM EST) [facility] TRAVEL PHLEBOTOMY FEE Completed 12/27/2023 12:01 PM EST [facility] Blood Venous blood specimen / Unknown Venipuncture / Unknown 12/27/2023 9:02 AM EST 12/27/2023 11:39 AM EST us Lauren Wiley MD LAB BLOOD ORDERABLES Fin al Result [facility] ([facility] [address] [place] [address], * Zinc (12/27/2023 9:02 AM EST) Zinc 61 60 - 130 ug/dL 12/30/2023 12:30 PM EST [facility] Comment: Elevated results may be due to sample collected in a non-certified trace element-free tube. This test was developed and the performance characteristics determined by [facility]. It has not been cleared or approved by the FDA. The laboratory is regulated under CLIA as qualified to perform high-complexity testing. This test is used for patient testing purposes. It should not be regarded as investigational or for research. Test performed at [facility], [address] , [place] [address] Jeannette Lopez MD, PhD - Dental Hygiene Administrative Assistant Blood Venous blood specimen / Unknown Venipuncture / Unknown 12/27/2023 9:02 AM EST 12/27/2023 11:39 AM EST Lauren Wiley MD LAB BLOOD ORDERABLES Fin al Result [facility] [address] 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
--- OUTSIDE RECORDS SUMMARY | 2025-01-04 18:55 | XMS_ITS | Encounter Summary ---
Author Organization [email or web address] Address [address] [place] [address] Care Team Providers Care Strand Forming Machine Operator Name Role Phone Lauren Wiley MD Primary Care Provider + Encounter Details Date Type Department Care Team (Late st Contact Info) Description 07/28/2024 Lab Requisition [facility] Lab [address] [place] [address] Lauren Wiley MD [address] [phone] Chronic kidney disease, unspecified Social History Tobacco [...] Associated Diagnosis Comments COMPLETE BLOOD COUNT Routine 07/29/2024 12:51 PM EDT Chronic kidney disease, unspecified BASIC METABOLIC PANEL Routine 07/29/2024 12:51 PM EDT Chronic kidney disease, unspecified documented in this encounter Results * (ABNORMAL) Basic metabolic panel (07/29/2024 12:51 PM EDT) Sodium 146(H) 133 - 145 mmol/L LAB CHEMISTRY METHOD 07/29/2024 2:23 PM EDT [facility] Potassium 4.7 3.5 - 5.5 mmol/L LAB CHEMISTRY METHOD 07/29/2024 2:23 PM EDT [facility] Chloride 113(H) 96 - 110 mmol/L LAB CHEMISTRY METHOD 07/29/2024 2:23 PM EDT [facility] CO2 31 21 - 32 mmol/L LAB CHEMISTRY METHOD 07/29/2024 2:23 PM EDT [facility] Anion Gap 2(L) 3 - 11 LAB CHEMISTRY METHOD 07/29/2024 2:23 PM T [facility] Glucose 115(H) 70 - 100 mg/dL LAB CHEMISTRY METHOD 07/29/2024 2:23 PM T [facility] BUN 40(H) 5 - 25 mg/dL LAB CHEMISTRY METHOD 07/29/2024 2:23 PM [facility] Creatinine 1.29 0.70 - 1.30 mg/dL LAB CHEMISTRY METHOD [facility]24 [facility] eGFR 60 >=60 mL/min/1. 73m2 LAB CHEMISTRY METHOD 07/29/2024 2:23 PM T [facility] Comment:Calculation based on the Chronic Kidney Disease Epidemiology Collaboration (CKD-EPI) equation refit without adjustment for race. BUN/Creatinine Ratio 31.0 LAB CHEMISTRY METHOD 07/29/2024 2:23 PM [facility] Calcium 9.1 8.5 - 10.5 mg/dL LAB CHEMISTRY METHOD 07/29/2024 2:23 PM [facility] Blood Venous blood specimen / Unknown Venipuncture / Unknown 07/29/2024 12:51 PM EDT 07/29/2024 1:55 PM EDT us Lauren Wiley MD LAB BLOOD ORDERABLES Fin al Result [facility] [address] [place] [address], * (ABNORMAL) Complete blood count (07/29/2024 12:51 PM EDT) WBC 5.0 4.8 - 10.8 K/mcL LAB HEMETOLOGY METHOD 07/29/2024 2:00 PM [facility] RBC 2.90(L) 4.50 - 5.50 M/mcL LAB HEMETOLOGY METHOD 07/29/2024 2:00 PM [facility] Hemoglobin 9.2(L) 13.5 - 17.5 g/dL LAB HEMETOLOGY METHOD 07/29/2024 2:00 PM [facility] Hematocrit 29.0(L) 42.0 - 54.0 % LAB HEMETOLOGY METHOD 07/29/2024 2:00 PM [facility] MCV 100.0(H) 79.0 - 98.0 FL LAB HEMETOLOGY METHOD 07/29/2024 2:00 PM [facility] MCH 31.7 27.0 - 32.0 pcg LAB HEMETOLOGY METHOD 07/29/2024 2:00 PM [facility] MCHC 31.7(L) 32.0 - 37.0 g/dL LAB HEMETOLOGY METHOD 07/29/2024 2:00 PM [facility] RDW 13.6 11.0 - 15.0 % LAB HEMETOLOGY METHOD 07/29/2024 2:00 PM [facility] Platelets 167 130 - 400 K/mcL LAB HEMETOLOGY METHOD 07/29/2024 2:00 PM [facility] MPV 9.3 7.0 - 11.0 FL LAB HEMETOLOGY METHOD 07/29/2024 2:00 PM [facility] NRBC 0.0 <1.0 % LAB HEMETOLOGY METHOD 07/29/2024 2:00 PM [facility] NRBC Absolute 0.00 <0.10 K/mcL LAB HEMETOLOGY METHOD 07/29/2024 2:00 PM [facility] Blood Venous blood specimen / Unknown Venipuncture / Unknown 07/29/2024 12:51 PM EDT 07/29/2024 1:56 PM EDT us Lauren Wiley MD LAB BLOOD ORDERABLES Fin al Result [facility] [address] [place] [address], documented in this encounter Visit Diagnoses Diagnosis Chronic kidney disease, unspecified documented in this encounter Additional Health Concerns Infection Onset 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
--- OUTSIDE RECORDS SUMMARY | 2025-01-04 18:56 | XMS_ITS | Encounter Summary ---
Author Organization [employer] Address [address] [place] [address] Care Team Providers Care Office Inspector Name Role Phone Lauren Wiley MD Primary Care Provider + Encounter Details Date Type Department Care Team (Late st Contact Info) Description 12/01/2024 Lab Requisition [facility] - Main Lab [address] [place] [address] Lauren Wiley MD [address] [phone] Essential (primary) hypertension; Chronic kidney disease, unspecified [...] Associated Diagnosis Comments COMPLETE BLOOD COUNT Routine 12/01/2024 5:09 AM EDT Essential (primary) hypertension Chronic kidney disease, unspecified COMPREHENSIVE METABOLIC PANEL Routine 12/01/2024 5:09 AM EDT Essential (primary) hypertension Chronic kidney disease, unspecified documented in this encounter Results * (ABNORMAL) Comprehensive metabolic panel (12/01/2024 5:09 AM EDT) Sodium 149(H) 133 - 145 mmol/L LAB CHEMISTRY METHOD 12/01/2024 12:19 PM EDT [facility] Potassium 5.0 3.5 - 5.5 mmol/L LAB CHEMISTRY METHOD 12/01/2024 12:19 PM EDT [facility] Chloride 119(H) 96 - 110 mmol/L LAB CHEMISTRY METHOD 12/01/2024 12:19 PM [facility] CO2 28 21 - 32 mmol/L LAB CHEMISTRY METHOD 12/01/2024 12:19 PM [facility] Anion Gap 2(L) 3 - 11 LAB CHEMISTRY METHOD 12/01/2024 12:19 PM [facility] Glucose 123(H) 70 - 100 mg/dL LAB CHEMISTRY METHOD 12/01/2024 12:19 PM [facility] BUN 67(H) 5 - 25 mg/dL LAB CHEMISTRY METHOD 12/01/2024 12:19 PM [facility] Creatinine 1.44(H) 0.70 - 1.30 mg/dL LAB CHEMISTRY METHOD 12/01/2024 12:19 PM [facility] eGFR 52(L) >=60 mL/min/1. 73m2 LAB CHEMISTRY METHOD 12/01/2024 12:19 PM [facility] Comment:Calculation based on the Chronic Kidney Disease Epidemiology Collaboration (CKD-EPI) equation refit without adjustment for race. BUN/Creatinine Ratio 46.5 LAB CHEMISTRY METHOD 12/01/2024 12:19 PM [facility] Calcium 9.4 8.5 - 10.5 mg/dL LAB CHEMISTRY METHOD 12/01/2024 12:19 PM [facility] AST (SGOT) 14 10 - 42 unit/L LAB CHEMISTRY METHOD 12/01/2024 12:19 PM [facility] ALT (SGPT) 22 10 - 60 unit/L LAB CHEMISTRY METHOD 12/01/2024 12:19 PM [facility] Alkaline Phosphatase 91 42 - 121 unit/L LAB CHEMISTRY METHOD 12/01/2024 12:19 PM [facility] Total Protein 5.9(L) 6.0 - 8.0 g/dL LAB CHEMISTRY METHOD 12/01/2024 12:19 PM EDT [facility] Albumin 1.7(L) 3.2 - 5.0 g/dL LAB CHEMISTRY METHOD 12/01/[facility]24 [facility] Total Bilirubin 0.2 0.0 - 1.4 mg/dL LAB CHEMISTRY METHOD 12/01/2024 12:19 PM [facility] Blood Venous blood specimen / Unknown Venipuncture / Unknown 12/01/2024 5:09 AM EDT 12/01/2024 10:41 AM EDT us Lauren Wiley MD LAB BLOOD ORDERABLES Fin al Result [facility] [address] [place] [address], * (ABNORMAL) Complete blood count (12/01/2024 5:09 AM EDT) WBC 5.7 4.8 - 10.8 K/mcL LAB HEMETOLOGY METHOD 12/01/2024 11:20 AM [facility] RBC 2.60(L) 4.50 - 5.50 M/mcL LAB HEMETOLOGY METHOD 12/01/2024 11:20 AM [facility] Hemoglobin 8.0(L) 13.5 - 17.5 g/dL LAB HEMETOLOGY METHOD 12/01/2024 11:20 AM [facility] Hematocrit 27.1(L) 42.0 - 54.0 % LAB HEMETOLOGY METHOD 12/01/2024 11:20 AM [facility] MCV 103.0(H) 79.0 - 98.0 FL LAB HEMETOLOGY METHOD 12/01/2024 11:20 AM [facility] MCH 30.4 27.0 - 32.0 pcg LAB HEMETOLOGY METHOD 12/01/2024 11:20 AM EDT [facility] MCHC 29.5(L) 32.0 - 37.0 g/dL LAB HEMETOLOGY METHOD 12/01/2024 11:20 AM EDT [facility] RDW 14.6 11.0 - 15.0 % LAB HEMETOLOGY METHOD 12/01/2024 11:20 AM EDT [facility] Platelets 264 130 - 400 K/mcL LAB HEMETOLOGY METHOD 12/01/2024 11:20 AM EDT [facility] MPV 9.8 7.0 - 11.0 FL LAB HEMETOLOGY METHOD 12/01/2024 11:20 AM EDT [facility] NRBC 0.0 <1.0 % LAB HEMETOLOGY METHOD 12/01/2024 11:20 AM EDT [facility] NRBC Absolute 0.00 <0.10 K/mcL LAB HEMETOLOGY METHOD 12/01/2024 11:20 AM EDT [facility] Blood Venous blood specimen / Unknown Venipuncture / Unknown 12/01/2024 5:09 AM EDT 12/01/2024 10:41 AM EDT Lauren Wiley MD LAB BLOOD ORDERABLES Fin al Result Performing Organization Address City/State/[facility] Co de Phone Number [facility] [address] [place] [address], documented in this encounter Visit Diagnoses Diagnosis Essential (primary) hypertension Unspecified essential hypertension Chronic kidney disease, unspecified documented in this encounter Additional Health Concerns 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
--- OUTSIDE RECORDS SUMMARY | 2025-01-04 18:56 | XMS_ITS | Encounter Summary ---
Author Organization [employer] Address [address] [place] [address] Care Team Providers Care Director Of Public Safety Name Role Phone Lauren Wiley MD Primary Care Provider + Encounter Details Date Type Department Care Team (Late st Contact Info) Description 08/30/2024 Lab Requisition [facility] - Main Lab [address] [place] [address] Lauren Wiley MD [address] [phone] Anemia, unspecified Social History Tobacco Use Types [...] Associated Diagnosis Comments COMPLETE BLOOD COUNT Routine 08/31/2024 5:39 AM EDT Anemia, unspecified BASIC METABOLIC PANEL Routine 08/31/2024 5:39 AM EDT Anemia, unspecified documented in this encounter Results * (ABNORMAL) Basic metabolic panel (08/31/2024 5:39 AM EDT) Sodium 145 133 - 145 mmol/L LAB CHEMISTRY METHOD 08/31/2024 9:30 AM [facility] Potassium 3.2(L) 3.5 - 5.5 mmol/L LAB CHEMISTRY METHOD 08/31/2024 9:30 AM [facility] Chloride 109 96 - 110 mmol/L LAB CHEMISTRY METHOD 08/31/2024 9:30 AM [facility] CO2 34(H) 21 - 32 mmol/L LAB CHEMISTRY METHOD 08/31/2024 9:30 AM [facility] Anion Gap 2(L) 3 - 11 LAB CHEMISTRY METHOD 08/31/2024 9:30 AM [facility] Glucose 113(H) 70 - 100 mg/dL LAB CHEMISTRY METHOD 08/31/2024 9:30 AM [facility] BUN 52(H) 5 - 25 mg/dL LAB CHEMISTRY METHOD 08/31/2024 9:30 AM [facility] Creatinine 1.20 0.70 - 1.30 mg/dL LAB CHEMISTRY METHOD 08/31/2024 9:30 AM [facility] eGFR 65 >=60 mL/min/1. 73m2 LAB CHEMISTRY METHOD 08/31/2024 9:30 AM [facility] Comment:Calculation based on the Chronic Kidney Disease Epidemiology Collaboration (CKD-EPI) equation refit without adjustment for race. BUN/Creatinine Ratio 43.3 LAB CHEMISTRY METHOD 08/31/2024 9:30 AM [facility] Calcium 8.4(L) 8.5 - 10.5 mg/dL LAB CHEMISTRY METHOD 08/31/2024 9:30 AM [facility] Blood Venous blood specimen / Unknown Venipuncture / Unknown 08/31/2024 5:39 AM EDT 08/31/2024 8:37 AM EDT us Lauren Wiley MD LAB BLOOD ORDERABLES Fin al Result [facility] [address] [place] [address], * (ABNORMAL) Complete blood count (08/31/2024 5:39 AM EDT) WBC 5.1 4.8 - 10.8 K/mcL LAB HEMETOLOGY METHOD 08/31/2024 8:59 AM [facility] RBC 2.10(L) 4.50 - 5.50 M/mcL LAB HEMETOLOGY METHOD 08/31/2024 8:59 AM [facility] Hemoglobin 6.7(L) 13.5 - 17.5 g/dL LAB HEMETOLOGY METHOD 08/31/2024 8:59 AM [facility] Hematocrit 22.0(L) 42.0 - 54.0 % LAB HEMETOLOGY METHOD 08/31/2024 8:59 AM [facility] MCV 103.3(H) 79.0 - 98.0 FL LAB HEMETOLOGY METHOD 08/31/2024 8:59 AM [facility] MCH 31.5 27.0 - 32.0 pcg LAB HEMETOLOGY METHOD 08/31/2024 8:59 AM [facility] MCHC 30.5(L) 32.0 - 37.0 g/dL LAB HEMETOLOGY METHOD 08/31/2024 8:59 AM [facility] RDW 16.9(H) 11.0 - 15.0 % LAB HEMETOLOGY METHOD 08/31/2024 8:59 AM [facility] Platelets 200 130 - 400 K/mcL LAB HEMETOLOGY METHOD 08/31/2024 8:59 AM [facility] MPV 9.7 7.0 - 11.0 FL LAB HEMETOLOGY METHOD 08/31/2024 8:59 AM [facility] NRBC 0.0 <1.0 % LAB HEMETOLOGY METHOD 08/31/2024 8:59 AM [facility] NRBC Absolute 0.00 <0.10 K/mcL LAB HEMETOLOGY METHOD 08/31/2024 8:59 AM [facility] Blood Venous blood specimen / Unknown Venipuncture / Unknown 08/31/2024 5:39 AM EDT 08/31/2024 8:37 AM EDT us Lauren Wiley MD LAB BLOOD ORDERABLES Fin al Result [facility] [address] [place] [address], documented in this encounter Visit Diagnoses Diagnosis Anemia, unspecified documented in this encounter Additional Health Concerns 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
--- OUTSIDE RECORDS SUMMARY | 2025-01-04 18:56 | XMS_ITS | Encounter Summary ---
Author Organization [employer] Address [address] [place] [address] Care Team Providers Care Respiratory Coordinator Name Role Phone Lauren Wiley MD Primary Care Provider + Encounter Details Date Type Department Care Team (Late st Contact Info) Description 07/16/2024 Lab Requisition [facility] - Main Lab [address] [place] [address] Lauren Wiley MD [address] [phone] Essential (primary) hypertension; Chronic kidney disease, unspecified [...] Associated Diagnosis Comments COMPLETE BLOOD COUNT Routine 07/16/2024 6:19 AM EDT Essential (primary) hypertension Chronic kidney disease, unspecified BASIC METABOLIC PANEL Routine 07/16/2024 6:19 AM EDT Essential (primary) hypertension Chronic kidney disease, unspecified documented in this encounter Results * (ABNORMAL) Basic metabolic panel (07/16/2024 6:19 AM EDT) Sodium 141 133 - 145 mmol/L LAB CHEMISTRY METHOD 07/16/2024 10:58 AM EDT [facility] Potassium 4.8 3.5 - 5.5 mmol/L LAB CHEMISTRY METHOD 07/16/2024 10:58 AM EDT [facility] Chloride 107 96 - 110 mmol/L LAB CHEMISTRY METHOD 07/16/2024 10:58 AM [facility] CO2 29 21 - 32 mmol/L LAB CHEMISTRY METHOD 07/16/2024 10:58 AM [facility] Anion Gap 5 3 - 11 LAB CHEMISTRY METHOD 07/16/2024 10:58 AM [facility] Glucose 91 70 - 100 mg/dL LAB CHEMISTRY METHOD 07/16/2024 10:58 AM [facility] BUN 37(H) 5 - 25 mg/dL LAB CHEMISTRY METHOD 07/16/2024 10:58 AM [facility] Creatinine 1.49(H) 0.70 - 1.30 mg/dL LAB CHEMISTRY METHOD 07/16/2024 10:58 AM [facility] eGFR 50(L) >=60 mL/min/1. 73m2 LAB CHEMISTRY METHOD 07/16/2024 10:58 AM [facility] LAB Comment:Calculation based on the Chronic Kidney Disease Epidemiology Collaboration (CKD-EPI) equation refit without adjustment for race. BUN/Creatinine Ratio 24.8 LAB CHEMISTRY METHOD 07/16/2024 10:58 AM [facility] Calcium 9.0 8.5 - 10.5 mg/dL LAB CHEMISTRY METHOD 07/16/2024 10:58 AM [facility] Blood Venous blood specimen / Unknown Venipuncture / Unknown 07/16/2024 6:19 AM EDT 07/16/2024 10:04 AM EDT us Lauren Wiley MD LAB BLOOD ORDERABLES Fin al Result [facility] LAB [address] [place] [address], * (ABNORMAL) Complete blood count (07/16/2024 6:19 AM EDT) WBC 3.0(L) 4.8 - 10.8 K/[facility] LAB HEMETOLOGY METHOD 07/16/2024 10:55 AM [facility] RBC 2.20(L) 4.50 - 5.50 M/[facility] LAB HEMETOLOGY METHOD 07/16/2024 10:55 AM [facility] Hemoglobin 6.9(L) 13.5 - 17.5 g/dL LAB HEMETOLOGY METHOD 07/16/2024 10:55 AM [facility] Hematocrit 22.0(L) 42.0 - 54.0 % LAB HEMETOLOGY METHOD 07/16/2024 10:55 AM [facility] LAB MCV 100.0(H) 79.0 - 98.0 FL LAB HEMETOLOGY METHOD 07/16/2024 10:55 AM [facility] LAB MCH 31.4 27.0 - 32.0 pcg LAB HEMETOLOGY METHOD 07/16/2024 10:55 AM [facility] LAB MCHC 31.4(L) 32.0 - 37.0 g/dL LAB HEMETOLOGY METHOD 07/16/2024 10:55 AM [facility] LAB RDW 13.6 11.0 - 15.0 % LAB HEMETOLOGY METHOD 07/16/2024 10:55 AM [facility] LAB Platelets 94(L) 130 - 400 K/[facility] LAB HEMETOLOGY METHOD 07/16/2024 10:55 AM [facility] LAB Comment:reviewed by slide MPV 9.5 7.0 - 11.0 FL LAB HEMETOLOGY METHOD 07/16/2024 10:55 AM [facility] LAB NRBC 0.0 <1.0 % LAB HEMETOLOGY METHOD 07/16/2024 10:55 AM [facility] NRBC Absolute 0.00 <0.10 [facility] 07/16/2024 10:55 AM EDT [facility] Blood Venous blood specimen / Unknown Venipuncture / Unknown 07/16/2024 6:19 AM EDT 07/16/2024 10:04 AM EDT us Lauren Wiley MD LAB BLOOD ORDERABLES Fin al Result [facility] [address] [place] [address], documented in this encounter Visit Diagnoses Diagnosis Essential (primary) hypertension Unspecified essential hypertension Chronic kidney disease, unspecified documented in this encounter Additional Health Concerns 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
--- OUTSIDE RECORDS SUMMARY | 2025-01-04 18:56 | XMS_ITS | Encounter Summary ---
Author Organization [employer] Address [address] [place] [address] Care Team Providers Care Deal Architect Name Role Phone Lauren Wiley MD Primary Care Provider + Encounter Details Date Type Department Care Team (Late st Contact Info) Description 08/11/2024 Lab Requisition [facility] - Main Lab [address] [facility] [place] [address] Lauren Wiley MD [address] [address] Essential (primary) hypertension; Chronic kidney disease, unspecified [...] documented as of this encounter Care Teams Deal Architect Relationship Specialty Start Date End Date Lauren Wiley MD [address] [phone] PCP - General Family Medicine 12/01/24 documented as of this encounter
--- OUTSIDE RECORDS SUMMARY | 2025-01-04 18:56 | XMS_ITS | Encounter Summary ---
Author Organization [employer] Address [address] [place] [address] Care Team Providers Care Investigator Claims Name Role Phone Lauren Wiley MD Primary Care Provider + Encounter Details Date Type Department Care Team (Late st Contact Info) Description 10/28/2024 Lab Requisition [facility] - Main Lab [address] [facility] [place] [place] [address] Lauren Wiley MD [address] [phone] Essential (primary) hypertension; Chronic kidney disease, unspecified [...] documented as of this encounter Care Teams Investigator Claims Relationship Specialty Start Date End Date Lauren Wiley MD [address] [phone] PCP - General Family Medicine 12/01/24 documented as of this encounter
--- OUTSIDE RECORDS SUMMARY | 2025-01-04 18:56 | XMS_ITS | Encounter Summary ---
Author Organization [employer] Address [address] [place] [address] Care Team Providers Care Cam Milling Machine Operator Name Role Phone Lauren Wiley MD Primary Care Provider + Encounter Details Date Type Department Care Team (Late st Contact Info) Description 07/16/2024 Lab Requisition [facility] - Main Lab [address] [place] [address] Lauren Wiley MD [address] [phone] Essential (primary) hypertension; Chronic kidney disease, unspecified [...] Associated Diagnosis Comments COMPLETE BLOOD COUNT Routine 07/18/2024 8:12 AM EDT Essential (primary) hypertension Chronic kidney disease, unspecified CREATINE KINASE Routine 07/18/2024 8:12 AM EDT Essential (primary) hypertension Chronic kidney disease, unspecified COMPREHENSIVE METABOLIC PANEL Routine 07/18/2024 8:12 AM EDT Essential (primary) hypertension Chronic kidney disease, unspecified documented in this encounter Results * (ABNORMAL) Creatine kinase (07/18/2024 8:12 AM EDT) Total CK 15(L) 22 - 269 unit/L LAB CHEMISTRY METHOD 07/18/2024 12:52 PM EDT [facility] Blood Venous blood specimen / Unknown Venipuncture / Unknown 07/18/2024 8:12 AM EDT 07/18/2024 10:42 AM EDT Lauren Wiley MD LAB BLOOD ORDERABLES Fin al Result [facility] [address] [place] [address], * (ABNORMAL) Comprehensive metabolic panel (07/18/2024 8:12 AM EDT) Sodium 145 133 - 145 mmol/L LAB CHEMISTRY METHOD 07/18/2024 12:48 PM [facility] Potassium 4.4 3.5 - 5.5 mmol/L LAB CHEMISTRY METHOD 07/18/2024 12:48 PM [facility] Chloride 109 96 - 110 mmol/L LAB CHEMISTRY METHOD 07/18/2024 12:48 PM [facility] CO2 28 21 - 32 mmol/L LAB CHEMISTRY METHOD 07/18/2024 12:48 PM [facility] Anion Gap 8 3 - 11 LAB CHEMISTRY METHOD 07/18/2024 12:48 PM [facility] Glucose 123(H) 70 - 100 mg/dL LAB CHEMISTRY METHOD 07/18/2024 12:48 PM [facility] BUN 39(H) 5 - 25 mg/dL LAB CHEMISTRY METHOD 07/18/2024 12:48 PM [facility] Creatinine 1.71(H) 0.70 - 1.30 mg/dL LAB CHEMISTRY METHOD 07/18/2024 12:48 PM [facility] eGFR 43(L) >=60 mL/min/1. 73m2 LAB CHEMISTRY METHOD 07/18/2024 12:48 PM [facility] Comment:Calculation based on the Chronic Kidney Disease Epidemiology Collaboration (CKD-EPI) equation refit without adjustment for race. BUN/Creatinine Ratio 22.8 LAB CHEMISTRY METHOD 07/18/2024 12:48 PM [facility] Calcium 9.2 8.5 - 10.5 mg/dL LAB CHEMISTRY METHOD 07/18/2024 12:48 PM [facility] AST (SGOT) 13 10 - 42 unit/L LAB CHEMISTRY METHOD 07/18/2024 12:48 PM [facility] ALT (SGPT) 22 10 - 60 unit/L LAB CHEMISTRY METHOD 07/18/2024 12:48 PM [facility] Alkaline Phosphatase 83 42 - 121 unit/L LAB CHEMISTRY METHOD 07/18/2024 12:48 PM [facility] Total Protein 6.2 6.0 - 8.0 g/dL LAB CHEMISTRY METHOD 07/18/2024 12:48 PM [facility] Albumin 2.2(L) 3.2 - 5.0 g/dL LAB CHEMISTRY METHOD 07/18/2024 12:48 PM [facility] Total Bilirubin 0.4 0.0 - 1.4 mg/dL LAB CHEMISTRY METHOD 07/18/2024 12:48 PM [facility] Blood Venous blood specimen / Unknown Venipuncture / Unknown 07/18/2024 8:12 AM EDT 07/18/2024 10:42 AM EDT us Lauren Wiley MD LAB BLOOD ORDERABLES Fin al Result [facility] [address] [place] [address], * (ABNORMAL) Complete blood count (07/18/2024 8:12 AM EDT) WBC 4.1(L) 4.8 - 10.8 K/mcL LAB HEMETOLOGY METHOD 07/18/2024 11:43 AM [facility] RBC 2.00(L) 4.50 - 5.50 M/mcL LAB HEMETOLOGY METHOD 07/18/2024 11:43 AM [facility] Hemoglobin 6.5(L) 13.5 - 17.5 g/dL LAB HEMETOLOGY METHOD 07/18/2024 11:43 AM [facility] Hematocrit 20.9(L) 42.0 - 54.0 % LAB HEMETOLOGY METHOD 07/18/2024 11:43 AM [facility] MCV 102.5(H) 79.0 - 98.0 FL LAB HEMETOLOGY METHOD 07/18/2024 11:43 AM [facility] MCH 31.9 27.0 - 32.0 pcg LAB HEMETOLOGY METHOD 07/18/2024 11:43 AM [facility] MCHC 31.1(L) 32.0 - 37.0 g/dL LAB HEMETOLOGY METHOD 07/18/2024 11:43 AM [facility] RDW 13.5 11.0 - 15.0 % LAB HEMETOLOGY METHOD 07/18/2024 11:43 AM [facility] Platelets 102(L) 130 - 400 K/mcL LAB HEMETOLOGY METHOD 07/18/2024 11:43 AM [facility] MPV 9.6 7.0 - 11.0 FL LAB HEMETOLOGY METHOD 07/18/2024 11:43 AM [facility] NRBC 0.0 <1.0 % LAB HEMETOLOGY METHOD 07/18/2024 11:43 AM [facility] NRBC Absolute 0.00 <0.10 K/mcL LAB HEMETOLOGY METHOD 07/18/2024 11:43 AM [facility] Blood Venous blood specimen / Unknown Venipuncture / Unknown 07/18/2024 8:12 AM EDT 07/18/2024 10:42 AM EDT us Lauren Wiley MD LAB BLOOD ORDERABLES Fin al Result [facility] ([facility] [address] [place] [address], documented in this encounter Visit Diagnoses Diagnosis Essential (primary) hypertension Unspecified essential hypertension Chronic kidney disease, unspecified documented in this encounter Additional Health Concerns 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
--- OUTSIDE RECORDS SUMMARY | 2025-01-04 18:56 | XMS_ITS | Encounter Summary ---
Author Organization [employer] Address [address] [place] [address] Care Team Providers Care Associate Veterinarian Name Role Phone Lauren Wiley MD Primary Care Provider + Encounter Details Date Type Department Care Team (Late st Contact Info) Description 07/28/2024 Lab Requisition [facility] - Main Lab [address] [facility] [place] [address] Lauren Wiley MD [address] [address] Chronic kidney disease, unspecified; Essential (primary) hypertension [...] as of this encounter Visit Diagnoses Diagnosis Chronic kidney disease, unspecified Essential (primary) hypertension Unspecified essential hypertension documented in this encounter Additional Health Concerns 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
--- OUTSIDE RECORDS SUMMARY | 2025-01-04 18:56 | XMS_ITS | Encounter Summary ---
Author Organization [employer] Address [address] [place] [address] Care Team Providers Care Cushion Spring Assembler Name Role Phone Lauren Wiley MD Primary Care Provider + Encounter Details Date Type Department Care Team (Late st Contact Info) Description 11/29/2024 Lab Requisition [facility] Lab [address] [place] [address] Lauren Wiley MD [address] [phone] Anemia, unspecified Social History Tobacco Use Types [...] Associated Diagnosis Comments COMPLETE BLOOD COUNT Routine 11/30/2024 5:05 AM EDT Anemia, unspecified BASIC METABOLIC PANEL Routine 11/30/2024 5:05 AM EDT Anemia, unspecified documented in this encounter Results * (ABNORMAL) Complete blood count (11/30/2024 5:05 AM EDT) WBC 4.9 4.8 - 10.8 K/[facility] LAB HEMETOLOGY METHOD 11/30/2024 10:27 AM EDT [facility] RBC 2.60(L) 4.50 - 5.50 M/[facility] LAB HEMETOLOGY METHOD 11/30/2024 10:27 AM EDT [facility] Hemoglobin 8.1(L) 13.5 - 17.5 g/dL LAB HEMETOLOGY METHOD 11/30/2024 10:27 AM [facility] LAB Hematocrit 26.4(L) 42.0 - 54.0 % LAB HEMETOLOGY METHOD 11/30/2024 10:27 AM [facility] LAB MCV 101.5(H) 79.0 - 98.0 FL LAB HEMETOLOGY METHOD 11/30/2024 10:27 AM EDT [facility] MCH 31.2 27.0 - 32.0 pcg LAB HEMETOLOGY METHOD 11/30/2024 10:27 AM [facility] MCHC 30.7(L) 32.0 - 37.0 g/dL LAB HEMETOLOGY METHOD 11/30/2024 10:27 AM [facility] LAB RDW 14.6 11.0 - 15.0 % LAB HEMETOLOGY METHOD 11/30/2024 10:27 AM [facility] LAB Platelets 300 130 - 400 K/mcL LAB HEMETOLOGY METHOD 11/30/2024 10:27 AM [facility] LAB MPV 10.0 7.0 - 11.0 FL LAB HEMETOLOGY METHOD 11/30/2024 10:27 AM [facility] LAB NRBC 0.0 <1.0 % LAB HEMETOLOGY METHOD 11/30/2024 10:27 AM [facility] LAB NRBC Absolute 0.00 <0.10 K/mcL LAB HEMETOLOGY METHOD 11/30/2024 10:27 AM [facility] LAB Blood Venous blood specimen / Unknown Venipuncture / Unknown 11/30/2024 5:05 AM EDT 11/30/2024 10:11 AM EDT us Lauren Wiley MD LAB BLOOD ORDERABLES Fin al Result [facility] [address] [place] [address], * (ABNORMAL) Basic metabolic panel (11/30/2024 5:05 AM EDT) Sodium 149(H) 133 - 145 mmol/L LAB CHEMISTRY METHOD 11/30/2024 11:01 AM [facility] Potassium 5.2 3.5 - 5.5 mmol/L LAB CHEMISTRY METHOD 11/30/2024 11:01 AM [facility] LAB Comment:Hemolysis present Chloride 120(H) 96 - 110 mmol/L LAB CHEMISTRY METHOD 11/30/2024 11:01 AM [facility] CO2 25 21 - 32 mmol/L LAB CHEMISTRY METHOD 11/30/2024 11:01 AM [facility] Anion Gap 4 3 - 11 LAB CHEMISTRY METHOD 11/30/2024 11:01 AM [facility] Glucose 137(H) 70 - 100 mg/dL LAB CHEMISTRY METHOD 11/30/2024 11:01 AM [facility] BUN 70(H) 5 - 25 mg/dL LAB CHEMISTRY METHOD 11/30/2024 11:01 AM [facility] Creatinine 1.55(H) 0.70 - 1.30 mg/dL LAB CHEMISTRY METHOD 11/30/2024 11:01 AM [facility] LAB eGFR 48(L) >=60 mL/min/1. 73m2 LAB CHEMISTRY METHOD 11/30/2024 11:01 AM [facility] LAB Comment:Calculation based on the Chronic Kidney Disease Epidemiology Collaboration (CKD-EPI) equation refit without adjustment for race. 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
--- OUTSIDE RECORDS SUMMARY | 2025-01-04 18:56 | XMS_ITS | Encounter Summary ---
Author Organization [employer] Address [address] [place] [address] Care Team Providers Care Glass Washer And Carrier Name Role Phone Lauren Wiley MD Primary Care Provider + Encounter Details Date Type Department Care Team (Late st Contact Info) Description 08/24/2024 Lab Requisition [facility] - Main Lab [address] [place] [address] Lauren Wiley MD [address] [phone] Essential (primary) hypertension; Chronic kidney disease, unspecified [...] Associated Diagnosis Comments COMPLETE BLOOD COUNT Routine 08/28/2024 9:22 AM EDT Essential (primary) hypertension Chronic kidney disease, unspecified CREATINE KINASE Routine 08/28/2024 9:22 AM EDT Essential (primary) hypertension Chronic kidney disease, unspecified COMPREHENSIVE METABOLIC PANEL Routine 08/28/2024 9:22 AM EDT Essential (primary) hypertension Chronic kidney disease, unspecified documented in this encounter Results * Creatine kinase (08/28/2024 9:22 AM EDT) Total CK 51 22 - 269 unit/L LAB CHEMISTRY METHOD 08/28/2024 12:38 PM EDT [facility] Blood Venous blood specimen / Unknown Venipuncture / Unknown 08/28/2024 9:22 AM EDT 08/28/2024 10:55 AM EDT Lauren Wiley MD LAB BLOOD ORDERABLES Fin al Result [facility] [address] [place] [address], * (ABNORMAL) Comprehensive metabolic panel (08/28/2024 9:22 AM EDT) Sodium 145 133 - 145 mmol/L LAB CHEMISTRY METHOD 08/28/2024 12:[address] [facility] Potassium 3.4(L) 3.5 - 5.5 mmol/L LAB CHEMISTRY METHOD 08/28/2024 12:[address] [facility] Chloride 109 96 - 110 mmol/L LAB CHEMISTRY METHOD 08/28/2024 12:[address] [facility] CO2 29 21 - 32 mmol/L LAB CHEMISTRY METHOD 08/28/2024 12:[address] [facility] Anion Gap 7 3 - 11 LAB CHEMISTRY METHOD 08/28/2024 12:[address] [facility] Glucose 156(H) 70 - 100 mg/dL LAB CHEMISTRY METHOD 08/28/2024 12:[address] [facility] BUN 50(H) 5 - 25 mg/dL LAB CHEMISTRY METHOD 08/28/2024 12:[address] [facility] Creatinine 1.25 0.70 - 1.30 mg/dL LAB CHEMISTRY METHOD 08/28/2024 12:[address] [facility] eGFR 62 >=60 mL/min/1. 73m2 LAB CHEMISTRY METHOD 08/28/2024 12:[address] [facility] Comment:Calculation based on the Chronic Kidney Disease Epidemiology Collaboration (CKD-EPI) equation refit without adjustment for race. BUN/Creatinine Ratio 40.0 LAB CHEMISTRY METHOD 08/28/2024 12:[address] [facility] Calcium 8.2(L) 8.5 - 10.5 mg/dL LAB CHEMISTRY METHOD 08/28/2024 12:[address] [facility] AST (SGOT) 17 10 - 42 unit/L LAB CHEMISTRY METHOD 08/28/2024 12:[address] [facility] ALT (SGPT) 16 10 - 60 unit/L LAB CHEMISTRY METHOD 08/28/2024 12:[address] [facility] Alkaline Phosphatase 92 42 - 121 unit/L LAB CHEMISTRY METHOD 08/28/2024 12:[address] [facility] Total Protein 5.8(L) 6.0 - 8.0 g/dL LAB CHEMISTRY METHOD 08/28/2024 12:[address] [facility] Albumin 1.9(L) 3.2 - 5.0 g/dL LAB CHEMISTRY METHOD 08/28/2024 12:[address] [facility] Total Bilirubin 0.5 0.0 - 1.4 mg/dL LAB CHEMISTRY METHOD 08/28/2024 12:[address] [facility] Blood Venous blood specimen / Unknown Venipuncture / Unknown 08/28/2024 9:22 AM EDT 08/28/2024 10:55 AM EDT us Lauren Wiley MD LAB BLOOD ORDERABLES Fin al Result [facility] [address] [place] [address], * (ABNORMAL) Complete blood count (08/28/2024 9:22 AM EDT) WBC 7.9 4.8 - 10.8 K/[facility] LAB HEMETOLOGY METHOD 08/28/2024 11:22 AM EDT [facility] RBC 2.40(L) 4.50 - 5.50 M/mcL LAB HEMETOLOGY METHOD 08/28/2024 11:[address] [facility] Hemoglobin 7.7(L) 13.5 - 17.5 g/dL LAB HEMETOLOGY METHOD 08/28/2024 11:[address] [facility] Hematocrit 24.9(L) 42.0 - 54.0 % LAB HEMETOLOGY METHOD 08/28/2024 11:[address] [facility] MCV 104.6(H) 79.0 - 98.0 FL LAB HEMETOLOGY METHOD 08/28/2024 11:[address] [facility] MCH 32.4(H) 27.0 - 32.0 pcg LAB HEMETOLOGY METHOD 08/28/2024 11:[address] [facility] MCHC 30.9(L) 32.0 - 37.0 g/dL LAB HEMETOLOGY METHOD 08/28/2024 11:[address] [facility] RDW 17.2(H) 11.0 - 15.0 % LAB HEMETOLOGY METHOD 08/28/2024 11:[address] [facility] Platelets 185 130 - 400 K/mcL LAB HEMETOLOGY METHOD 08/28/2024 11:[address] [facility] MPV 9.7 7.0 - 11.0 FL LAB HEMETOLOGY METHOD 08/28/2024 11:[address] [facility] NRBC 0.0 <1.0 % LAB HEMETOLOGY METHOD 08/28/2024 11:[address] [facility] NRBC Absolute 0.00 <0.10 K/mcL LAB HEMETOLOGY METHOD 08/28/2024 11:[address] [facility] Blood Venous blood specimen / Unknown Venipuncture / Unknown 08/28/2024 9:22 AM EDT 08/28/2024 10:56 AM EDT Lauren Wiley MD LAB BLOOD ORDERABLES Fin al Result [facility] [address] [place] [address], documented in this encounter Visit Diagnoses Diagnosis Essential (primary) hypertension Unspecified essential hypertension Chronic kidney disease, unspecified documented in this encounter Additional Health Concerns 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
--- OUTSIDE RECORDS SUMMARY | 2025-01-04 18:56 | XMS_ITS | Encounter Summary ---
Author Organization [employer] Address [address] [place] [address] Care Team Providers Care Director Of Ancillary Services Name Role Phone Lauren Wiley MD Primary Care Provider + Encounter Details Date Type Department Care Team (Late st Contact Info) Description 09/16/2024 Lab Requisition [facility] - Main Lab [address] [place] [address] Lauren Wiely MD [address] [phone] Essential (primary) hypertension; Chronic kidney disease, unspecified [...] Associated Diagnosis Comments COMPLETE BLOOD COUNT Routine 09/18/2024 9:13 AM EDT Essential (primary) hypertension Chronic kidney disease, unspecified CREATINE KINASE Routine 09/18/2024 9:13 AM EDT Essential (primary) hypertension Chronic kidney disease, unspecified COMPREHENSIVE METABOLIC PANEL Routine 09/18/2024 9:13 AM EDT Essential (primary) hypertension Chronic kidney disease, unspecified documented in this encounter Results * (ABNORMAL) Complete blood count (09/18/2024 9:13 AM EDT) WBC 5.3 4.8 - 10.8 K/[facility] LAB HEMETOLOGY METHOD 09/18/2024 11:[address] [facility] RBC 2.40(L) 4.50 - 5.50 M/mcL LAB HEMETOLOGY METHOD 09/18/2024 11:24 AM [facility] Hemoglobin 7.8(L) 13.5 - 17.5 g/dL LAB HEMETOLOGY METHOD 09/18/2024 11:24 AM [facility] Hematocrit 24.8(L) 42.0 - 54.0 % LAB HEMETOLOGY METHOD 09/18/2024 11:24 AM [facility] MCV 102.1(H) 79.0 - 98.0 FL LAB HEMETOLOGY METHOD 09/18/2024 11:24 AM [facility] MCH 32.1(H) 27.0 - 32.0 pcg LAB HEMETOLOGY METHOD 09/18/2024 11:24 AM [facility] MCHC 31.5(L) 32.0 - 37.0 g/dL LAB HEMETOLOGY METHOD 09/18/2024 11:24 AM [facility] RDW 15.4(H) 11.0 - 15.0 % LAB HEMETOLOGY METHOD 09/18/2024 11:24 AM [facility] Platelets 228 130 - 400 K/mcL LAB HEMETOLOGY METHOD 09/18/2024 11:24 AM [facility] MPV 9.3 7.0 - 11.0 FL LAB HEMETOLOGY METHOD 09/18/2024 11:24 AM [facility] NRBC 0.0 <1.0 % LAB HEMETOLOGY METHOD 09/18/2024 11:24 AM [facility] NRBC Absolute 0.00 <0.10 K/mcL LAB HEMETOLOGY METHOD 09/18/2024 11:24 AM [facility] Blood Venous blood specimen / Unknown Venipuncture / Unknown 09/18/2024 9:13 AM EDT 09/18/2024 10:41 AM EDT Lauren Wiley MD LAB BLOOD ORDERABLES Fin al Result Performing Organization Address City/[facility]/ZIP Co de Phone Number [facility] [address] [place] [address], [place] [phone] * Creatine kinase (09/18/2024 9:13 AM EDT) Pathologist [facility] Total CK 32 22 - 269 unit/L LAB CHEMISTRY METHOD 09/18/2024 12:[address] [facility] Blood Venous blood specimen / Unknown Venipuncture / Unknown 09/18/2024 9:13 AM EDT 09/18/2024 10:41 AM EDT Lauren Wiley MD LAB BLOOD ORDERABLES Fin al Result Performing Organization Address City/[facility]/ZIP Co de Phone Number [facility] [address] [place] [address], [place] [phone] * (ABNORMAL) Comprehensive metabolic panel (09/18/2024 9:13 AM EDT) [facility] Sodium 139 133 - 145 mmol/L LAB CHEMISTRY METHOD 09/18/2024 12:[address] [facility] Potassium 3.1(L) 3.5 - 5.5 mmol/L LAB CHEMISTRY METHOD 09/18/2024 12:[address] [facility] Chloride 105 96 - 110 mmol/L LAB CHEMISTRY METHOD 09/18/2024 12:[address] [facility] CO2 26 21 - 32 mmol/L LAB CHEMISTRY METHOD 09/18/2024 12:[address] [facility] Anion Gap 8 3 - 11 LAB CHEMISTRY METHOD 09/18/2024 12:[address] [facility] Glucose 159(H) 70 - 100 mg/dL LAB CHEMISTRY METHOD 09/18/2024 12:54 PM [facility] BUN 36(H) 5 - 25 mg/dL LAB CHEMISTRY METHOD 09/18/2024 12:54 PM [facility] Creatinine 1.21 0.70 - 1.30 mg/dL LAB CHEMISTRY METHOD 09/18/2024 12:54 PM [facility] eGFR 65 >=60 mL/min/1. 73m2 LAB CHEMISTRY METHOD 09/18/2024 12:54 PM [facility] Comment:Calculation based on the Chronic Kidney Disease Epidemiology Collaboration (CKD-EPI) equation refit without adjustment for race. BUN/Creatinine Ratio 29.8 LAB CHEMISTRY METHOD 09/18/2024 12:54 PM [facility] Calcium 8.8 8.5 - 10.5 mg/dL LAB CHEMISTRY METHOD 09/18/2024 12:54 PM [facility] AST (SGOT) 20 10 - 42 unit/L LAB CHEMISTRY METHOD 09/18/2024 12:54 PM [facility] ALT (SGPT) 14 10 - 60 unit/L LAB CHEMISTRY METHOD 09/18/2024 12:54 PM [facility] Alkaline Phosphatase 104 42 - 121 unit/L LAB CHEMISTRY METHOD 09/18/2024 12:54 PM [facility] Total Protein 6.4 6.0 - 8.0 g/dL LAB CHEMISTRY METHOD 09/18/2024 12:54 PM [facility] Albumin 1.9(L) 3.2 - 5.0 g/dL LAB CHEMISTRY METHOD 09/18/2024 12:54 PM [facility] Total Bilirubin 0.5 0.0 - 1.4 mg/dL LAB CHEMISTRY METHOD 09/18/2024 12:54 PM [facility] Blood Venous blood specimen / Unknown Venipuncture / Unknown 09/18/2024 9:13 AM EDT 09/18/2024 10:41 AM EDT us Lauren Wiley MD LAB BLOOD ORDERABLES Fin al Result [facility] [address] [place] [address], documented in this encounter Visit Diagnoses Diagnosis Essential (primary) hypertension Unspecified essential hypertension Chronic kidney disease, unspecified documented in this encounter Additional Health Concerns 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
--- OUTSIDE RECORDS SUMMARY | 2025-01-04 18:56 | XMS_ITS | Encounter Summary ---
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, CMS/HCC V28); Chronic kidney disease, unspecified Social History Tobacco [...] Associated Diagnosis Comments COMPLETE BLOOD COUNT Routine 12/05/2024 6:55 AM EDT 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, CMS/HCC V28) Chronic kidney disease, unspecified BASIC METABOLIC PANEL Routine 12/05/2024 6:55 AM EDT 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, CMS/HCC V28) Chronic kidney disease, unspecified documented in this encounter Results * (ABNORMAL) Basic metabolic panel (12/05/2024 6:55 AM EDT) Sodium 147(H) 133 - 145 mmol/L LAB CHEMISTRY METHOD 12/05/2024 12:10 PM [facility] Potassium 4.3 3.5 - 5.5 mmol/L LAB CHEMISTRY METHOD 12/05/2024 12:10 PM [facility] Chloride 117(H) 96 - 110 mmol/L LAB CHEMISTRY METHOD 12/05/2024 12:10 PM [facility] CO2 25 21 - 32 mmol/L LAB CHEMISTRY METHOD 12/05/2024 12:10 PM [facility] Anion Gap 5 3 - 11 LAB CHEMISTRY METHOD 12/05/2024 12:10 PM [facility] Glucose 108(H) 70 - 100 mg/dL LAB CHEMISTRY METHOD 12/05/2024 12:10 PM [facility] BUN 60(H) 5 - 25 mg/dL LAB CHEMISTRY METHOD 12/05/2024 12:10 PM [facility] Creatinine 1.56(H) 0.70 - 1.30 mg/dL LAB CHEMISTRY METHOD 12/05/2024 12:10 PM [facility] eGFR 47(L) >=60 mL/min/1. 73m2 LAB CHEMISTRY METHOD 12/05/2024 12:10 PM [facility] Comment:Calculation based on the Chronic Kidney Disease Epidemiology Collaboration (CKD-EPI) equation refit without adjustment for race. BUN/Creatinine Ratio 38.5 LAB CHEMISTRY METHOD 12/05/2024 12:10 PM [facility] Calcium 8.8 8.5 - 10.5 mg/dL LAB CHEMISTRY METHOD 12/05/2024 12:10 PM [facility] Blood Venous blood specimen / Unknown Venipuncture / Unknown 12/05/2024 6:55 AM EDT 12/05/2024 10:34 AM EDT us Lauren Wiley MD LAB BLOOD ORDERABLES Fin al Result [facility] [address] [place] [address], * (ABNORMAL) Complete blood count (12/05/2024 6:55 AM EDT) [facility] WBC 5.1 4.8 - 10.8 K/mcL LAB HEMETOLOGY METHOD 12/05/2024 10:49 AM EDT [facility] RBC 2.70(L) 4.50 - 5.50 M/mcL LAB HEMETOLOGY METHOD 12/05/2024 10:49 AM EDT [facility] Hemoglobin 8.4(L) 13.5 - 17.5 g/dL LAB HEMETOLOGY METHOD 12/05/2024 10:49 AM [facility] Hematocrit 27.3(L) 42.0 - 54.0 % LAB HEMETOLOGY METHOD 12/05/2024 10[facility] MCV 101.5(H) 79.0 - 98.0 FL LAB HEMETOLOGY METHOD 12/05/2024 10:49 AM EDT [facility] MCH 31.2 27.0 - 32.0 pcg LAB HEMETOLOGY METHOD 12/05/2024 10:49 AM [facility] MCHC 30.8(L) 32.0 - 37.0 g/dL LAB HEMETOLOGY METHOD 12/05/2024 10:49 [facility] RDW 14.9 11.0 - 15.0 % LAB HEMETOLOGY METHOD 12/05/2024 10:49 AM EDT [facility] Platelets 187 130 - 400 K/mcL LAB HEMETOLOGY METHOD 12/05/2024 10:49 AM EDT [facility] MPV 10.1 7.0 - 11.0 FL LAB HEMETOLOGY METHOD 12/05/2024 10:49 AM EDT [facility] NRBC 0.0 <1.0 % LAB HEMETOLOGY METHOD 12/05/2024 10:49 AM EDT [facility] NRBC Absolute 0.00 <0.10 K/mcL LAB HEMETOLOGY METHOD 12/05/2024 10:49 AM EDT [facility] Blood Venous blood specimen / Unknown Venipuncture / Unknown 12/05/2024 6:55 AM EDT 12/05/2024 10:34 AM EDT us Lauren Wiley MD LAB BLOOD ORDERABLES Fin al Result [facility] [address] [place] [address], documented in this encounter Visit Diagnoses Diagnosis 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
--- OUTSIDE RECORDS SUMMARY | 2025-01-04 18:56 | XMS_ITS | Encounter Summary ---
Author Organization [employer] Address [address] [place] [address] Care Team Providers Care Inside Sales Coordinator Name Role Phone Lauren Wiley MD Primary Care Provider + Encounter Details Date Type Department Care Team (Late st Contact Info) Description 08/04/[address] [facility] - Main Lab [address] [facility] [place] [address] Lauren Wiley MD [address] [phone] Essential (primary) hypertension; Chronic kidney disease, unspecified [...] documented as of this encounter Care Teams Inside Sales Coordinator Relationship Specialty Start Date End Date Lauren Wiley MD [address] [phone] PCP - General Family Medicine 12/01/24 documented as of this encounter
--- OUTSIDE RECORDS SUMMARY | 2025-01-04 18:56 | XMS_ITS | Encounter Summary ---
Author Organization [employer] Address [address] [place] [address] Care Team Providers Care Retail Greeter Name Role Phone Lauren Wiley MD Primary Care Provider + Encounter Details Date Type Department Care Team (Late st Contact Info) Description 11/05/2024 Lab Requisition [facility] - Main Lab [address] [place] [address] Lauren Wiley MD [address] [phone] Essential (primary) hypertension; Chronic kidney disease, unspecified [...] Associated Diagnosis Comments COMPLETE BLOOD COUNT Routine 11/06/2024 10:31 AM EDT Essential (primary) hypertension Chronic kidney disease, unspecified documented in this encounter Results * (ABNORMAL) Complete blood count (11/06/2024 10:31 AM EDT) WBC 4.6(L) 4.8 - 10.8 K/mcL LAB HEMETOLOGY METHOD 11/06/2024 11:49 AM EDT [facility] RBC 2.90(L) 4.50 - 5.50 M/mcL LAB HEMETOLOGY METHOD 11/06/2024 11:49 AM EDT [facility] Hemoglobin 9.0(L) 13.5 - 17.5 g/dL LAB HEMETOLOGY METHOD 11/06/2024 11:49 AM EDT [facility] Hematocrit 27.4(L) 42.0 - 54.0 % LAB HEMETOLOGY METHOD 11/06/2024 11:49 AM EDT [facility] MCV 95.5 79.0 - 98.0 FL LAB HEMETOLOGY METHOD 11/06/2024 11:49 AM EDT [facility] MCH 31.4 27.0 - 32.0 pcg LAB HEMETOLOGY METHOD 11/06/2024 11:49 AM EDT [facility] MCHC 32.8 32.0 - 37.0 g/dL LAB HEMETOLOGY METHOD 11/06/2024 11:49 [facility] RDW 14.6 11.0 - 15.0 % LAB HEMETOLOGY METHOD 11/06/2024 11:49 [facility] Platelets 196 130 - 400 K/mcL LAB HEMETOLOGY METHOD 11/06/2024 11:49 AM EDT [facility] MPV 9.3 7.0 - 11.0 FL LAB HEMETOLOGY METHOD 11/06/2024 11:49 AM [facility] NRBC 0.0 <1.0 % LAB HEMETOLOGY METHOD 11/06/2024 11:49 AM T [facility] NRBC Absolute 0.00 <0.10 K/mcL LAB HEMETOLOGY METHOD 11/06/2024 11:49 AM [facility] Blood Venous blood specimen / Unknown Venipuncture / Unknown 11/06/2024 10:31 AM EDT 11/06/2024 11:24 AM EDT us Lauren Wiley MD LAB BLOOD ORDERABLES Fin al Result [facility] [address] [place] [address], [place] [phone] documented in this encounter Visit Diagnoses Diagnosis Essential (primary) hypertension Unspecified essential hypertension Chronic kidney disease, unspecified documented in this encounter Additional Health Concerns Infection Onset Date 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
--- OUTSIDE RECORDS SUMMARY | 2025-01-04 18:56 | XMS_ITS | Encounter Summary ---
Author Organization [employer] Address [address] [place] [address] Care Team Providers Care Certified Fire Investigator Name Role Phone Lauren Wiley MD Primary Care Provider + Encounter Details Date Type Department Care Team (Late st Contact Info) Description 05/28/2024 Lab Requisition [facility] [address] [place] [address] Lauren Wiley MD [address] [phone] Gastrointestinal hemorrhage, unspecified Social History Tobacco Use [...] LAB CHEMISTRY METHOD 05/28/2024 4:50 PM EDT [facility] Potassium 4.9 3.5 - 5.5 mmol/L LAB CHEMISTRY METHOD 05/28/2024 4:50 PM EDT [facility] Chloride 111(H) 96 - 110 mmol/L LAB CHEMISTRY METHOD 05/28/2024 4:50 PM EDT [facility] CO2 27 21 - 32 mmol/L LAB CHEMISTRY METHOD 05/28/2024 4:50 PM EDT [facility] Anion Gap 3 3 - 11 LAB CHEMISTRY METHOD 05/28/2024 4:50 PM [facility] Glucose 93 70 - 100 mg/dL LAB CHEMISTRY METHOD 05/28/2024 4:50 PM [facility] BUN 33(H) 5 - 25 mg/dL LAB CHEMISTRY METHOD 05/28/2024 4:50 PM [facility] Creatinine 1.05 0.70 - 1.30 mg/dL LAB CHEMISTRY [facility] e[facility] 77 >=60 mL/min/1. 73m2 LAB CHEMISTRY METHOD 05/28/2024 4:50 PM EDT [facility] Comment:Calculation based on the Chronic Kidney Disease Epidemiology Collaboration (CKD-EPI) equation refit without adjustment for race. BUN/Creatinine Ratio 31.4 LAB CHEMISTRY METHOD 05/28/2024 4:50 PM [facility] Calcium 8.6 8.5 - 10.5 mg/dL LAB CHEMISTRY METHOD 05/28/2024 4:50 PM [facility] Blood Venous blood specimen / Unknown Venipuncture / Unknown 05/28/2024 3:18 PM EDT 05/28/2024 3:44 PM EDT us Lauren Wiley MD LAB BLOOD ORDERABLES Fin al Result [facility] [address] [place] [address], * (ABNORMAL) Complete blood count (05/28/2024 3:18 PM EDT) WBC 4.2(L) 4.8 - 10.8 K/mcL LAB HEMETOLOGY METHOD 05/28/2024 5:29 PM [facility] RBC 3.00(L) 4.50 - 5.50 M/mcL LAB HEMETOLOGY METHOD 05/28/2024 5:29 PM [facility] Hemoglobin 9.8(L) 13.5 - 17.5 g/dL LAB HEMETOLOGY METHOD 05/28/2024 5:29 PM [facility] Hematocrit 30.7(L) 42.0 - 54.0 % LAB HEMETOLOGY METHOD 05/28/2024 5:29 PM [facility] MCV 102.3(H) 79.0 - 98.0 FL LAB HEMETOLOGY METHOD 05/28/2024 5:29 PM [facility] MCH 32.7(H) 27.0 - 32.0 pcg LAB HEMETOLOGY METHOD 05/28/2024 5:29 PM [facility] MCHC 31.9(L) 32.0 - 37.0 g/dL LAB HEMETOLOGY METHOD 05/28/2024 5:29 PM [facility] RDW 15.4(H) 11.0 - 15.0 % LAB HEMETOLOGY METHOD 05/28/2024 5:29 PM [facility] Platelets 206 130 - 400 K/mcL LAB HEMETOLOGY METHOD 05/28/2024 5:29 PM [facility] MPV 10.0 7.0 - 11.0 FL LAB HEMETOLOGY METHOD 05/28/2024 5:29 PM [facility] NRBC 0.0 <1.0 % LAB HEMETOLOGY METHOD 05/28/2024 5:29 PM [facility] NRBC Absolute 0.00 <0.10 K/mcL LAB HEMETOLOGY METHOD 05/28/2024 5:29 PM [facility] Blood Venous blood specimen / Unknown Venipuncture / Unknown 05/28/2024 3:18 PM EDT 05/28/2024 3:44 PM EDT Lauren Wiley MD LAB BLOOD ORDERABLES Fin al Result [facility] ([facility]) [facility] [address] [place] [address], documented in this encounter Visit Diagnoses Diagnosis Gastrointestinal hemorrhage, unspecified documented in this encounter Additional Health Concerns 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
--- OUTSIDE RECORDS SUMMARY | 2025-01-04 18:56 | XMS_ITS | Encounter Summary ---
Author Organization [employer] Address [address] [place] [address] Care Team Providers Care Lift Team Technician Name Role Phone Lauren Wiley MD Primary Care Provider + Encounter Details Date Type Department Care Team (Late st Contact Info) Description 05/04/2024 Lab Requisition [facility] Lab [address] [place] [address] Lauren Wiley MD [address] [phone] Essential (primary) hypertension Social History Tobacco Use [...] AM EDT) WBC 5.1 4.8 - 10.8 K/[facility] LAB HEMETOLOGY METHOD 05/04/2024 9:45 AM EDT [facility] RBC 3.00(L) 4.50 - 5.50 M/[facility] LAB HEMETOLOGY METHOD 05/04/2024 9:45 AM EDT [facility] Hemoglobin 9.7(L) 13.5 - 17.5 g/dL LAB HEMETOLOGY METHOD 05/04/2024 9:45 AM EDT [facility] Hematocrit 29.4(L) 42.0 - 54.0 % LAB HEMETOLOGY METHOD 05/04/2024 9:45 AM EDT [facility] MCV 96.7 79.0 - 98.0 FL LAB HEMETOLOGY METHOD 05/04/2024 9:45 AM EDT [facility] MCH 31.9 27.0 - 32.0 pcg LAB HEMETOLOGY METHOD 05/04/2024 9:45 AM EDT [facility] MCHC 33.0 32.0 - 37.0 g/dL LAB HEMETOLOGY METHOD 05/04/2024 9:45 AM EDT [facility] RDW 14.2 11.0 - 15.0 % LAB HEMETOLOGY METHOD 05/04/2024 9:45 AM EDT [facility] Platelets 190 130 - 400 K/mcL LAB HEMETOLOGY METHOD 05/04/2024 9:45 AM EDT [facility] MPV 10.3 7.0 - 11.0 FL LAB HEMETOLOGY METHOD 05/04/2024 9:45 AM EDT [facility] NRBC 0.0 <1.0 % LAB HEMETOLOGY METHOD 05/04/2024 9:45 AM EDT [facility] NRBC Absolute 0.00 <0.10 K/mcL LAB HEMETOLOGY METHOD 05/04/2024 9:45 AM EDT [facility] Blood Venous blood specimen / Unknown 05/04/2024 7:09 AM EDT 05/04/2024 9:06 AM EDT us Lauren Wiley MD LAB BLOOD ORDERABLES Fin al Result [facility] [address] [place] [address], [place] [phone] * (ABNORMAL) Basic metabolic panel (05/04/2024 7:09 AM EDT) Sodium 142 133 - 145 mmol/L LAB CHEMISTRY METHOD 05/04/2024 10:07 AM [facility] Potassium 3.8 3.5 - 5.5 mmol/L LAB CHEMISTRY METHOD 05/04/2024 10:07 AM [facility] Chloride 108 96 - 110 mmol/L LAB CHEMISTRY METHOD 05/04/2024 10:07 AM [facility] CO2 28 21 - 32 mmol/L LAB CHEMISTRY METHOD 05/04/2024 10:07 AM [facility] Anion Gap 6 3 - 11 LAB CHEMISTRY METHOD 05/04/2024 10:07 AM [facility] Glucose 86 70 - 100 mg/dL LAB CHEMISTRY METHOD 05/04/2024 10:07 AM [facility] BUN 23 5 - 25 mg/dL LAB CHEMISTRY METHOD 05/04/2024 10:07 AM [facility] Creatinine 0.91 0.70 - 1.30 mg/dL LAB CHEMISTRY METHOD 05/04/2024 10:07 AM [facility] eGFR 91 >=60 mL/min/1. 73m2 LAB CHEMISTRY METHOD 05/04/2024 10:07 AM [facility] Comment:Calculation based on the Chronic Kidney Disease Epidemiology Collaboration (CKD-EPI) equation refit without adjustment for race. BUN/Creatinine Ratio 25.3 LAB CHEMISTRY METHOD 05/04/2024 10:07 AM [facility] Calcium 8.4(L) 8.5 - 10.5 mg/dL LAB CHEMISTRY METHOD 05/04/2024 10:07 AM [facility] Blood Venous blood specimen / Unknown Venipuncture / Unknown 05/04/2024 7:09 AM EDT 05/04/2024 9:05 AM EDT Lauren Wiley MD LAB BLOOD ORDERABLES Fin al Result [facility] ([facility] [address] [place] [address], documented in this encounter Visit Diagnoses Diagnosis Essential (primary) hypertension Unspecified essential hypertension documented in this encounter Additional Health Concerns 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
--- OUTSIDE RECORDS SUMMARY | 2025-01-04 18:56 | XMS_ITS | Encounter Summary ---
Author Organization [employer] [facility] Address [address] [place] [address] Care Team Providers Care Director Business Integration Name Role Phone Lauren Wiley MD Primary Care Provider + Encounter Details Date Type Department Care Team (Late st Contact Info) Description 11/08/2024 Lab Requisition [facility] - Main Lab [address] [facility] [place] [address] Lauren Wiley MD [address] [phone] Anemia, unspecified Social History Tobacco Use Types [...] as of this encounter Care Teams Director Business Integration Relationship Specialty Start Date End Date Lauren Wiley MD [address] [phone] PCP - General Family Medicine 12/01/24 documented as of this encounter
--- OUTSIDE RECORDS SUMMARY | 2025-01-04 18:56 | XMS_ITS | Encounter Summary ---
Author Organization [facility] Address [address] [place] [address] Care Team Providers Care Winter Sports Manager Name Role Phone Lauren Wiley MD Primary Care Provider + Encounter Details Date Type Department Care Team (Late st Contact Info) Description 09/13/2024 Lab Requisition [facility] - Main Lab [address] [facility] [place] [address] Lauren Wiley MD [address] [phone] Anemia, unspecified Social History Tobacco Use Types [...] documented as of this encounter Care Teams Winter Sports Manager Relationship Specialty Start Date End Date Lauren Wiley MD [address] [address] PCP - General Family Medicine 12/01/24 documented as of this encounter
--- OUTSIDE RECORDS SUMMARY | 2025-01-04 18:56 | XMS_ITS | Encounter Summary ---
Author Organization [employer] Address [address] [place] [address] Care Team Providers Care Shear Operator Helper Name Role Phone Lauren Wiley MD Primary Care Provider + Encounter Details Date Type Department Care Team (Late st Contact Info) Description 08/18/2024 Lab Requisition [facility] - Main Lab [address] [place] [address] Lauren Wiley MD [address] [phone] Essential (primary) hypertension; Chronic kidney disease, unspecified [...] Associated Diagnosis Comments COMPLETE BLOOD COUNT Routine 08/21/2024 7:28 AM EDT Essential (primary) hypertension Chronic kidney disease, unspecified CREATINE KINASE Routine 08/21/2024 7:28 AM EDT Essential (primary) hypertension Chronic kidney disease, unspecified COMPREHENSIVE METABOLIC PANEL Routine 08/21/2024 7:28 AM EDT Essential (primary) hypertension Chronic kidney disease, unspecified documented in this encounter Results * (ABNORMAL) Complete blood count (08/21/2024 7:28 AM EDT) WBC 4.9 4.8 - 10.8 K/[facility] LAB HEMETOLOGY METHOD 08/21/2024 11:04 AM EDT [facility] LAB RBC 2.40(L) 4.50 - 5.50 M/mcL LAB HEMETOLOGY METHOD 08/21/2024 11:04 AM [facility] LAB Hemoglobin 7.4(L) 13.5 - 17.5 g/dL LAB HEMETOLOGY METHOD 08/21/2024 11:04 AM [facility] LAB Hematocrit 24.1(L) 42.0 - 54.0 % LAB HEMETOLOGY METHOD 08/21/2024 11:04 AM [facility] LAB MCV 102.1(H) 79.0 - 98.0 FL LAB HEMETOLOGY METHOD 08/21/2024 11:04 AM [facility] LAB MCH 31.4 27.0 - 32.0 pcg LAB HEMETOLOGY METHOD 08/21/2024 11:04 AM [facility] LAB MCHC 30.7(L) 32.0 - 37.0 g/dL LAB HEMETOLOGY METHOD 08/21/2024 11:04 AM [facility] LAB RDW 16.4(H) 11.0 - 15.0 % LAB HEMETOLOGY METHOD 08/21/2024 11:04 AM [facility] LAB Platelets 189 130 - 400 K/mcL LAB HEMETOLOGY METHOD 08/21/2024 11:04 AM [facility] LAB MPV 9.6 7.0 - 11.0 FL LAB HEMETOLOGY METHOD 08/21/2024 11:04 AM [facility] LAB NRBC 0.0 <1.0 % LAB HEMETOLOGY METHOD 08/21/2024 11:04 AM [facility] LAB NRBC Absolute 0.00 <0.10 K/mcL LAB HEMETOLOGY METHOD 08/21/2024 11:04 AM [facility] LAB Blood Venous blood specimen / Unknown Venipuncture / Unknown 08/21/2024 7:28 AM EDT 08/21/2024 10:13 AM EDT Lauren Wiley MD LAB BLOOD ORDERABLES Fin al Result Performing Organization Address [facility]/ZIP Co de Phone Number [facility] LAB [address] [place] [address], [place] [phone] * Creatine kinase (08/21/2024 7:28 AM EDT) [facility] Total CK 22 22 - 269 unit/L LAB CHEMISTRY METHOD 08/21/2024 11:33 AM EDT [facility] LAB Blood Venous blood specimen / Unknown Venipuncture / Unknown 08/21/2024 7:28 AM EDT 08/21/2024 10:13 AM EDT Lauren Wiley MD LAB BLOOD ORDERABLES Fin al Result Performing Organization Address City/[facility]/ZIP Co de Phone Number [facility] [address] [place] [address], [place] [phone] * (ABNORMAL) Comprehensive metabolic panel (08/21/2024 7:28 AM EDT) [facility] Sodium 144 133 - 145 mmol/L LAB CHEMISTRY METHOD 08/21/2024 11:33 AM [facility] LAB Potassium 3.8 3.5 - 5.5 mmol/L LAB CHEMISTRY METHOD 08/21/2024 11:33 AM EDT [facility] LAB Chloride 107 96 - 110 mmol/L LAB CHE[facility]STRY [facility] CO2 32 21 - 32 mmol/L LAB CHEMISTRY METHOD 08/21/2024 11:33 AM [facility] LAB Anion Gap 5 3 - 11 LAB CHEMISTRY METHOD 08/21/2024 [facility] Glucose 103(H) 70 - 100 mg/dL LAB CHEMISTRY METHOD 08/21/2024 11:33 AM [facility] LAB BUN 48(H) 5 - 25 mg/dL LAB CHEMISTRY METHOD 08/21/2024 11:33 AM [facility] LAB Creatinine 1.07 0.70 - 1.30 mg/dL LAB CHEMISTRY METHOD 08/21/2024 11:33 AM [facility] LAB eGFR 75 >=60 mL/min/1. 73m2 LAB CHEMISTRY METHOD 08/21/2024 11:33 AM [facility] LAB Comment:Calculation based on the Chronic Kidney Disease Epidemiology Collaboration (CKD-EPI) equation refit without adjustment for race. BUN/Creatinine Ratio 44.9 LAB CHEMISTRY METHOD 08/21/2024 11:33 AM [facility] LAB Calcium 8.4(L) 8.5 - 10.5 mg/dL LAB CHEMISTRY METHOD 08/21/2024 11:33 AM [facility] LAB AST (SGOT) 16 10 - 42 unit/L LAB CHEMISTRY METHOD 08/21/2024 11:33 AM [facility] LAB ALT (SGPT) 17 10 - 60 unit/L LAB CHEMISTRY METHOD 08/21/2024 11:33 AM [facility] LAB Alkaline Phosphatase 96 42 - 121 unit/L LAB CHEMISTRY METHOD 08/21/2024 11:33 AM [facility] Total Protein 6.0 6.0 - 8.0 g/dL LAB CHEMISTRY METHOD 08/21/2024 11:33 AM [facility] LAB Albumin 2.0(L) 3.2 - 5.0 g/dL LAB CHEMISTRY METHOD 08/21/2024 11:33 AM [facility] LAB Total Bilirubin 0.6 0.0 - 1.4 mg/dL LAB CHEMISTRY METHOD 08/21/2024 11:33 AM [facility] Blood Venous blood specimen / Unknown Venipuncture / Unknown 08/21/2024 7:28 AM EDT 08/21/2024 10:13 AM EDT us Lauren Wiley MD LAB BLOOD ORDERABLES Fin al Result [facility] ([facility]) [facility] LAB [address] [place] [address], documented in this encounter Visit Diagnoses Diagnosis Essential (primary) hypertension Unspecified essential hypertension Chronic kidney disease, unspecified documented in this encounter Additional Health Concerns 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
--- OUTSIDE RECORDS SUMMARY | 2025-01-04 18:56 | XMS_ITS | Encounter Summary ---
Author Organization [facility] Address [address] [place] [address] Care Team Providers Care Appeals Coordinator Name Role Phone Lauren Wiley MD Primary Care Provider + Encounter Details Date Type Department Care Team (Late st Contact Info) Description 08/16/2024 Lab Requisition [facility] - Main Lab 299 [facility] [place] [address] Lauren Wiley MD [address] [phone] Anemia, unspecified Social History Tobacco Use Types [...] documented as of this encounter Care Teams Appeals Coordinator Relationship Specialty Start Date End Date Lauren Wiley MD [address] [address] PCP - General Family Medicine 12/01/24 documented as of this encounter
--- OUTSIDE RECORDS SUMMARY | 2025-01-04 18:56 | XMS_ITS | Encounter Summary ---
Author Organization [employer] Address [address] [place] [address] Care Team Providers Care Scraper Operator Name Role Phone Lauren Wiley MD Primary Care Provider + Encounter Details Date Type Department Care Team (Late st Contact Info) Description 07/14/2024 Lab Requisition [facility] - Main Lab [address] [place] [address] Lauren Wiley MD [address] [phone] Essential (primary) hypertension; Chronic kidney disease, unspecified [...] Associated Diagnosis Comments COMPLETE BLOOD COUNT Routine 07/14/2024 7:53 AM EDT Essential (primary) hypertension Chronic kidney disease, unspecified COMPREHENSIVE METABOLIC PANEL Routine 07/14/2024 7:53 AM EDT Essential (primary) hypertension Chronic kidney disease, unspecified documented in this encounter Results * (ABNORMAL) Comprehensive metabolic panel (07/14/2024 7:53 AM EDT) Sodium 140 133 - 145 mmol/L LAB CHEMISTRY METHOD 07/14/2024 11:37 AM EDT [facility] LAB Potassium 4.8 3.5 - 5.5 mmol/L LAB CHEMISTRY METHOD 07/14/2024 11:37 AM EDT [facility] Chloride 106 96 - 110 mmol/L LAB CHEMISTRY METHOD 07/14/2024 11:37 AM [facility] LAB CO2 28 21 - 32 mmol/L LAB CHEMISTRY METHOD 07/14/2024 11:37 AM [facility] LAB Anion Gap 6 3 - 11 LAB CHEMISTRY METHOD 07/14/2024 11:37 AM [facility] LAB Glucose 100 70 - 100 mg/dL LAB CHEMISTRY METHOD 07/14/2024 11:37 AM [facility] LAB BUN 36(H) 5 - 25 mg/dL LAB CHEMISTRY METHOD 07/14/2024 11:37 AM [facility] LAB Creatinine 1.52(H) 0.70 - 1.30 mg/dL LAB CHEMISTRY METHOD 07/14/2024 11:37 AM [facility] LAB eGFR 49(L) >=60 mL/min/1. 73m2 LAB CHEMISTRY METHOD 07/14/2024 11:37 AM [facility] LAB Comment:Calculation based on the Chronic Kidney Disease Epidemiology Collaboration (CKD-EPI) equation refit without adjustment for race. BUN/Creatinine Ratio 23.7 LAB CHEMISTRY METHOD 07/14/2024 11:37 AM [facility] LAB Calcium 8.6 8.5 - 10.5 mg/dL LAB CHEMISTRY METHOD 07/14/2024 11:37 AM [facility] LAB AST (SGOT) 17 10 - 42 unit/L LAB CHEMISTRY METHOD 07/14/2024 11:37 AM [facility] ALT (SGPT) 23 10 - 60 unit/L LAB CHEMISTRY METHOD 07/14/2024 11:37 AM [facility] LAB Alkaline Phosphatase 76 42 - 121 unit/L LAB CHEMISTRY METHOD 07/14/2024 11:37 AM [facility] Total Protein 5.7(L) 6.0 - 8.0 g/dL LAB CHEMISTRY METHOD 07/14[facility]24 [facility] Albumin 2.0(L) 3.2 - 5.0 g/dL LAB CHEMISTRY METHOD 07/14/2024 11:37 AM [facility] Total Bilirubin 0.4 0.0 - 1.4 mg/dL LAB CHEMISTRY METHOD 07/14/2024 11:37 AM [facility] Blood Venous blood specimen / Unknown Venipuncture / Unknown 07/14/2024 7:53 AM EDT 07/14/2024 10:46 AM EDT us Lauren Wiley MD LAB BLOOD ORDERABLES Fin al Result [facility] [address] [place] [address], [place] [phone] * (ABNORMAL) Complete blood count (07/14/2024 7:53 AM EDT) WBC 4.1(L) 4.8 - 10.8 K/mcL LAB HEMETOLOGY METHOD 07/14/2024 11:00 AM [facility] RBC 2.30(L) 4.50 - 5.50 M/mcL LAB HEMETOLOGY METHOD 07/14/2024 11:00 AM [facility] Hemoglobin 7.2(L) 13.5 - 17.5 g/dL LAB HEMETOLOGY METHOD 07/14/2024 11:00 AM [facility] LAB Hematocrit 23.0(L) 42.0 - 54.0 % LAB HEMETOLOGY METHOD 07/14/2024 11:00 AM [facility] LAB MCV 99.1(H) 79.0 - 98.0 FL LAB HEMETOLOGY METHOD 07/14/2024 11:00 AM [facility] LAB MCH 31.0 27.0 - 32.0 pcg LAB HEMETOLOGY METHOD 07/14/2024 11:00 AM EDT [facility] LAB MCHC 31.3(L) 32.0 - 37.0 g/dL LAB HEMETOLOGY METHOD 07/14/2024 11:00 AM EDT [facility] RDW 13.9 11.0 - 15.0 % LAB HEMETOLOGY METHOD 07/14/2024 11:00 AM [facility] LAB Platelets 111(L) 130 - 400 K/mcL LAB HEMETOLOGY METHOD 07/14/2024 11:00 AM EDT [facility] LAB MPV 9.5 7.0 - 11.0 FL LAB HEMETOLOGY METHOD 07/14/2024 11:00 AM T [facility] LAB NRBC 0.0 <1.0 % LAB HEMETOLOGY METHOD 07/14/2024 11:00 AM [facility] LAB NRBC Absolute 0.00 <0.10 K/mcL LAB HEMETOLOGY METHOD 07/14/2024 11:00 AM T [facility] Blood Venous blood specimen / Unknown Venipuncture / Unknown 07/14/2024 7:53 AM EDT 07/14/2024 10:46 AM EDT us Lauren Wiley MD LAB BLOOD ORDERABLES Fin al Result [facility] [address] [place] [address], documented in this encounter Visit Diagnoses Diagnosis Essential (primary) hypertension Unspecified essential hypertension Chronic kidney disease, unspecified documented in this encounter Additional Health Concerns 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
--- OUTSIDE RECORDS SUMMARY | 2025-01-04 18:56 | XMS_ITS | Encounter Summary ---
Author Organization [facility] Address [address] [place] [address] Care Team Providers Care Land Manager Name Role Phone Lauren Wiley MD Primary Care Provider + Encounter Details Date Type Department Care Team (Late st Contact Info) Description 09/14/2024 Lab Requisition [facility] - Main Lab [address] [place] [address] Lauren Wiley MD [address] [phone] Anemia, unspecified Social History Tobacco Use Types [...] Associated Diagnosis Comments COMPLETE BLOOD COUNT Routine 09/15/2024 5:08 AM EDT Anemia, unspecified BASIC METABOLIC PANEL Routine 09/15/2024 5:08 AM EDT Anemia, unspecified documented in this encounter Results * (ABNORMAL) Basic metabolic panel (09/15/2024 5:08 AM EDT) Sodium 141 133 - 145 mmol/L LAB CHEMISTRY METHOD 09/15/2024 10:23 AM [facility] LAB Potassium 3.5 3.5 - 5.5 mmol/L LAB CHEMISTRY METHOD 09/15/2024 10:23 AM [facility] LAB Chloride 106 96 - 110 mmol/L LAB CHEMISTRY METHOD 09/15/2024 10:23 AM [facility] LAB CO2 31 21 - 32 mmol/L LAB CHEMISTRY METHOD 09/15/2024 10:23 AM [facility] LAB Anion Gap 4 3 - 11 LAB CHEMISTRY METHOD 09/15/2024 10:23 AM [facility] LAB Glucose 108(H) 70 - 100 mg/dL LAB CHEMISTRY METHOD 09/15/2024 10:23 AM [facility] LAB BUN 44(H) 5 - 25 mg/dL LAB CHEMISTRY METHOD 09/15/2024 10:23 AM [facility] LAB Creatinine 1.25 0.70 - 1.30 mg/dL LAB CHEMISTRY METHOD 09/15/2024 10:23 AM [facility] LAB eGFR 62 >=60 mL/min/1. 73m2 LAB CHEMISTRY METHOD 09/15/2024 10:23 AM [facility] LAB Comment:Calculation based on the Chronic Kidney Disease Epidemiology Collaboration (CKD-EPI) equation refit without adjustment for race. BUN/Creatinine Ratio 35.2 LAB CHEMISTRY METHOD 09/15/2024 10:23 AM [facility] LAB Calcium 8.9 8.5 - 10.5 mg/dL LAB CHEMISTRY METHOD 09/15/2024 10:23 AM [facility] LAB Blood Venous blood specimen / Unknown Venipuncture / Unknown 09/15/2024 5:08 AM EDT 09/15/2024 9:37 AM EDT us Lauren Wiley MD LAB BLOOD ORDERABLES Fin al Result [facility] LAB [address] [place] [address], * (ABNORMAL) Complete blood count (09/15/2024 5:08 AM EDT) WBC 5.5 4.8 - 10.8 K/mcL LAB HEMETOLOGY METHOD 09/15/2024 9:52 AM [facility] LAB RBC 2.20(L) 4.50 - 5.50 M/mcL LAB HEMETOLOGY METHOD 09/15/2024 9:52 AM [facility] LAB Hemoglobin 7.0(L) 13.5 - 17.5 g/dL LAB HEMETOLOGY METHOD 09/15/2024 9:52 AM [facility] LAB Hematocrit 22.6(L) 42.0 - 54.0 % LAB HEMETOLOGY METHOD 09/15/2024 9:52 AM [facility] LAB MCV 102.7(H) 79.0 - 98.0 FL LAB HEMETOLOGY METHOD 09/15/2024 9:52 AM [facility] LAB MCH 31.8 27.0 - 32.0 pcg LAB HEMETOLOGY METHOD 09/15/2024 9:52 AM [facility] LAB MCHC 31.0(L) 32.0 - 37.0 g/dL LAB HEMETOLOGY METHOD 09/15/2024 9:52 AM [facility] LAB RDW 15.9(H) 11.0 - 15.0 % LAB HEMETOLOGY METHOD 09/15/2024 9:52 AM [facility] LAB Platelets 236 130 - 400 K/mcL LAB HEMETOLOGY METHOD 09/15/2024 9:52 AM [facility] LAB MPV 9.3 7.0 - 11.0 FL LAB HEMETOLOGY METHOD 09/15/2024 9:52 AM [facility] LAB NRBC 0.0 <1.0 % LAB HEMETOLOGY METHOD 09/15/2024 9:52 AM [facility] LAB NRBC Absolute 0.00 <0.10 K/mcL LAB HEMETOLOGY METHOD 09/15/2024 9:52 AM [facility] LAB Blood Venous blood specimen / Unknown Venipuncture / Unknown 09/15/2024 5:08 AM EDT 09/15/2024 9:37 AM EDT Lauren Wiley MD LAB BLOOD ORDERABLES Fin al Result [facility] ([facility] [address] [place] [address], documented in this encounter Visit Diagnoses Diagnosis Anemia, unspecified documented in this encounter Additional Health Concerns 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
--- OUTSIDE RECORDS SUMMARY | 2025-01-04 18:56 | XMS_ITS | Encounter Summary ---
Author Organization [facility] Address [address] [place] [address] Care Team Providers Care Web Development Consultant Name Role Phone Lauren Wiley MD Primary Care Provider + Encounter Details Date Type Department Care Team (Late st Contact Info) Description 10/25/2024 Lab Requisition [facility] - Main Lab 299 [facility] [place] [address] Lauren Wiley MD [address] [phone] Anemia, unspecified Social History Tobacco Use Types [...] documented as of this encounter Care Teams Web Development Consultant Relationship Specialty Start Date End Date Lauren Wiley MD [address] [address] PCP - General Family Medicine 12/01/24 documented as of this encounter
--- OUTSIDE RECORDS SUMMARY | 2025-01-04 18:56 | XMS_ITS | Encounter Summary ---
Author Organization [employer] Address [address] [place] [address] Care Team Providers Care Scudding Inspector Name Role Phone Lauren Wiley MD Primary Care Provider + Encounter Details Date Type Department Care Team (Late st Contact Info) Description 11/01/2024 Lab Requisition [facility] - Main Lab [address] [place] [address] Lauren Wiley MD [address] [phone] Anemia, unspecified Social History Tobacco Use Types [...] Associated Diagnosis Comments COMPLETE BLOOD COUNT Routine 11/02/2024 6:10 AM EDT Anemia, unspecified BASIC METABOLIC PANEL Routine 11/02/2024 6:10 AM EDT Anemia, unspecified documented in this encounter Results * (ABNORMAL) Basic metabolic panel (11/02/2024 6:10 AM EDT) Sodium 138 133 - 145 mmol/L LAB CHEMISTRY METHOD 11/02/2024 9:36 AM [facility] LAB Potassium 3.5 3.5 - 5.5 mmol/L LAB CHEMISTRY METHOD 11/02/2024 9:36 AM [facility] LAB Chloride 109 96 - 110 mmol/L LAB CHEMISTRY METHOD 11/02/2024 9:36 AM [facility] LAB CO2 26 21 - 32 mmol/L LAB CHEMISTRY METHOD 11/02/2024 9:36 AM [facility] LAB Anion Gap 3 3 - 11 LAB CHEMISTRY METHOD 11/02/2024 9:36 AM [facility] LAB Glucose 90 70 - 100 mg/dL LAB CHEMISTRY METHOD 11/02/2024 9:36 AM [facility] BUN 38(H) 5 - 25 mg/dL LAB CHEMISTRY METHOD 11/02/2024 9:36 AM [facility] Creatinine 0.95 0.70 - 1.30 mg/dL LAB CHEMISTRY METHOD 11/02/2024 9:36 AM [facility] LAB eGFR 86 >=60 mL/min/1. 73m2 LAB CHEMISTRY METHOD 11/02/2024 9:36 AM [facility] LAB Comment:Calculation based on the Chronic Kidney Disease Epidemiology Collaboration (CKD-EPI) equation refit without adjustment for race. BUN/Creatinine Ratio 40.0 LAB CHEMISTRY METHOD 11/02/2024 9:36 AM [facility] LAB Calcium 8.6 8.5 - 10.5 mg/dL LAB CHEMISTRY METHOD 11/02/2024 9:36 AM [facility] Blood Venous blood specimen / Unknown Venipuncture / Unknown 11/02/2024 6:10 AM EDT 11/02/2024 7:56 AM EDT us Lauren Wiley MD LAB BLOOD ORDERABLES Fin al Result [facility] [address] [place] [address], * (ABNORMAL) Complete blood count (11/02/2024 6:10 AM EDT) WBC 4.5(L) 4.8 - 10.8 K/mcL LAB HEMETOLOGY METHOD 11/02/2024 9:04 AM [facility] RBC 2.90(L) 4.50 - 5.50 M/mcL LAB HEMETOLOGY METHOD 11/02/2024 9:04 AM [facility] Hemoglobin 9.1(L) 13.5 - 17.5 g/dL LAB HEMETOLOGY METHOD 11/02/2024 9:04 AM [facility] LAB Hematocrit 28.7(L) 42.0 - 54.0 % LAB HEMETOLOGY METHOD 11/02/2024 9:04 AM [facility] MCV 98.6(H) 79.0 - 98.0 FL LAB HEMETOLOGY METHOD 11/02/2024 9:04 AM [facility] MCH 31.3 27.0 - 32.0 pcg LAB HEMETOLOGY METHOD 11/02/2024 9:04 AM [facility] LAB MCHC 31.7(L) 32.0 - 37.0 g/dL LAB HEMETOLOGY METHOD 11/02/2024 9:04 AM [facility] LAB RDW 14.6 11.0 - 15.0 % LAB HEMETOLOGY METHOD 11/02/2024 9:04 AM [facility] LAB Platelets 222 130 - 400 K/mcL LAB HEMETOLOGY METHOD 11/02/2024 9:04 AM [facility] LAB MPV 9.7 7.0 - 11.0 FL LAB HEMETOLOGY METHOD 11/02/2024 9:04 AM [facility] NRBC 0.4 <1.0 % LAB HEMETOLOGY METHOD 11/02/2024 9:04 AM [facility] NRBC Absolute 0.02 <0.10 K/mcL LAB HEMETOLOGY METHOD 11/02/2024 9:04 AM [facility] Blood Venous blood specimen / Unknown Venipuncture / Unknown 11/02/2024 6:10 AM EDT 11/02/2024 7:56 AM EDT us Lauren Wiley MD LAB BLOOD ORDERABLES Fin al Result [facility] [address] [place] [address], documented in this encounter Visit Diagnoses Diagnosis Anemia, unspecified documented in this encounter Additional Health Concerns 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
--- OUTSIDE RECORDS SUMMARY | 2025-01-04 18:56 | XMS_ITS | Encounter Summary ---
Author Organization [employer] Address [address] [place] [address] Care Team Providers Care Beef Lugger Name Role Phone Lauren Wiley MD Primary Care Provider + Encounter Details Date Type Department Care Team (Late st Contact Info) Description 11/12/2024 Lab Requisition [facility] - Main Lab 299 [facility] [place] [address] Lauren Wiley MD [address] [address] Essential (primary) hypertension; Chronic kidney disease, unspecified [...] documented as of this encounter Care Teams Beef Lugger Relationship Specialty Start Date End Date Lauren Wiley MD [address] [phone] PCP - General Family Medicine 12/01/24 documented as of this encounter
--- OUTSIDE RECORDS SUMMARY | 2025-01-04 18:56 | XMS_ITS | Encounter Summary ---
Author Organization [employer] Address [address] [place] [address] Care Team Providers Care Shear Operator Helper Name Role Phone Lauren Wiley MD Primary Care Provider + Encounter Details Date Type Department Care Team (Late st Contact Info) Description 09/06/2024 Lab Requisition [facility] - Main Lab [address] [place] [address] Lauren Wiley MD [address] [phone] Anemia, unspecified Social History Tobacco Use Types [...] Associated Diagnosis Comments COMPLETE BLOOD COUNT Routine 09/07/2024 5:18 AM EDT Anemia, unspecified BASIC METABOLIC PANEL Routine 09/07/2024 5:18 AM EDT Anemia, unspecified documented in this encounter Results * (ABNORMAL) Complete blood count (09/07/2024 5:18 AM EDT) WBC 5.8 4.8 - 10.8 K/[facility] LAB HEMETOLOGY METHOD 09/07/2024 9:05 AM EDT [facility] RBC 2.00(L) 4.50 - 5.50 M/[facility] LAB HEMETOLOGY METHOD 09/07/2024 9:05 AM EDT [facility] Hemoglobin 6.2(LL) 13.5 - 17.5 g/dL LAB HEMETOLOGY METHOD 09/07/2024 9:05 AM [facility] LAB Hematocrit 20.2(L) 42.0 - 54.0 % LAB HEMETOLOGY METHOD 09/07/2024 9:05 AM [facility] MCV 103.1(H) 79.0 - 98.0 FL LAB HEMETOLOGY METHOD 09/07/2024 9:05 AM [facility] MCH 31.8 27.0 - 32.0 pcg LAB HEMETOLOGY METHOD 09/07/2024 9:05 AM [facility] MCHC 30.8(L) 32.0 - 37.0 g/dL LAB HEMETOLOGY METHOD 09/07/2024 9:05 AM [facility] RDW 16.4(H) 11.0 - 15.0 % LAB HEMETOLOGY METHOD 09/07/2024 9:05 AM [facility] Platelets 227 130 - 400 K/mcL LAB HEMETOLOGY METHOD 09/07/2024 9:05 AM [facility] MPV 9.7 7.0 - 11.0 FL LAB HEMETOLOGY METHOD 09/07/2024 9:05 AM [facility] NRBC 0.0 <1.0 % LAB HEMETOLOGY METHOD 09/07/2024 9:05 AM [facility] LAB NRBC Absolute 0.00 <0.10 K/mcL LAB HEMETOLOGY METHOD 09/07/2024 9:05 AM [facility] Blood Venous blood specimen / Unknown Venipuncture / Unknown 09/07/2024 5:18 AM EDT 09/07/2024 8:49 AM EDT us Lauren Wiley MD LAB BLOOD ORDERABLES Fin al Result [facility] [address] [place] [address], [place] [phone] * (ABNORMAL) Basic metabolic panel (09/07/2024 5:18 AM EDT) Sodium 142 133 - 145 mmol/L LAB CHEMISTRY METHOD 09/07/2024 9:51 AM EDT [facility] Potassium 3.4(L) 3.5 - 5.5 mmol/L LAB CHEMISTRY METHOD 09/07/2024 9:51 AM T [facility] Chloride 107 96 - 110 mmol/L LAB CHEMISTRY METHOD 09/07/2024 9:51 AM [facility] CO2 33(H) 21 - 32 mmol/L LAB CHEMISTRY METHOD 09/07/2024 9:51 AM [facility] Anion Gap 2(L) 3 - 11 LAB CHEMISTRY METHOD 09/07/2024 9:51 AM [facility] Glucose 111(H) 70 - 100 mg/dL LAB CHEMISTRY METHOD 09/07/2024 9:51 AM [facility] BUN 46(H) 5 - 25 mg/dL LAB CHEMISTRY METHOD 09/07/2024 9:51 AM [facility] Creatinine 1.17 0.70 - 1.30 mg/dL LAB CHEMISTRY METHOD 09/07/2024 9:51 AM [facility] eGFR 67 >=60 mL/min/1. 73m2 LAB CHEMISTRY METHOD 09/07/2024 9:51 AM [facility] Comment:Calculation based on the Chronic Kidney Disease Epidemiology Collaboration (CKD-EPI) equation refit without adjustment for race. 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
--- OUTSIDE RECORDS SUMMARY | 2025-01-04 18:56 | XMS_ITS | Encounter Summary ---
Author Organization [facility] Address [address] [place] [address] Care Team Providers Care Operations Supervisor Chemical Cleaning Name Role Phone Lauren Wiley MD Primary Care Provider + Encounter Details Date Type Department Care Team (Late st Contact Info) Description 10/11/2024 Lab Requisition [facility] - Main Lab [address] [facility] [place] [address] Lauren Wiley MD [address] [phone] Anemia, unspecified Social History Tobacco Use Types [...] as of this encounter Care Teams Operations Supervisor Chemical Cleaning Relationship Specialty Start Date End Date Lauren Wiley MD [address] [address] PCP - General Family Medicine 12/01/24 documented as of this encounter
--- OUTSIDE RECORDS SUMMARY | 2025-01-04 18:56 | XMS_ITS | Encounter Summary ---
Author Organization [employer] Address [address] [place] [address] Care Team Providers Care First Aid Trainer Name Role Phone Lauren Wiley MD Primary Care Provider + Encounter Details Date Type Department Care Team (Late st Contact Info) Description 10/28/2024 Lab Requisition [facility] - Main Lab 299 [facility] [place] [address] Lauren Wiley MD [address] [address] Essential (primary) hypertension; Chronic kidney disease, unspecified [...] documented as of this encounter Care Teams First Aid Trainer Relationship Specialty Start Date End Date Lauren Wiley MD [address] [phone] PCP - General Family Medicine 12/01/24 documented as of this encounter
--- OUTSIDE RECORDS SUMMARY | 2025-01-04 18:56 | XMS_ITS | Encounter Summary ---
Author Organization [email or web address] Address [address] [place] [address] Care Team Providers Care Clinical Trial Specialist Name Role Phone Lauren Wiley MD Primary Care Provider + Encounter Details Date Type Department Care Team (Late st Contact Info) Description 12/03/2024 Lab Requisition [facility] - Main Lab [address] [place] [address] Lauren Wiley MD [address] [phone] Essential (primary) hypertension; Chronic kidney disease, unspecified [...] Associated Diagnosis Comments COMPLETE BLOOD COUNT Routine 12/04/2024 8:34 AM EDT Essential (primary) hypertension Chronic kidney disease, unspecified CREATINE KINASE Routine 12/04/2024 8:34 AM EDT Essential (primary) hypertension Chronic kidney disease, unspecified COMPREHENSIVE METABOLIC PANEL Routine 12/04/2024 8:34 AM EDT Essential (primary) hypertension Chronic kidney disease, unspecified documented in this encounter Results * (ABNORMAL) Complete blood count (12/04/2024 8:34 AM EDT) WBC 6.2 4.8 - 10.8 K/[facility] LAB HEMETOLOGY METHOD 12/04/2024 11:20 AM EDT [facility] RBC 2.90(L) 4.50 - 5.50 M/mcL LAB HEMETOLOGY METHOD 12/04/2024 11:20 AM [facility] Hemoglobin 9.0(L) 13.5 - 17.5 g/dL LAB HEMETOLOGY METHOD 12/04/2024 11:20 AM [facility] Hematocrit 30.1(L) 42.0 - 54.0 % LAB HEMETOLOGY METHOD 12/04/2024 11:20 AM [facility] MCV 102.4(H) 79.0 - 98.0 FL LAB HEMETOLOGY METHOD 12/04/2024 11:20 AM [facility] MCH 30.6 27.0 - 32.0 pcg LAB HEMETOLOGY METHOD 12/04/2024 11:20 AM [facility] MCHC 29.9(L) 32.0 - 37.0 g/dL LAB HEMETOLOGY METHOD 12/04/2024 11:20 AM [facility] RDW 14.8 11.0 - 15.0 % LAB HEMETOLOGY METHOD 12/04/2024 11:20 AM [facility] Platelets 211 130 - 400 K/mcL LAB HEMETOLOGY METHOD 12/04/2024 11:20 AM [facility] MPV 9.6 7.0 - 11.0 FL LAB HEMETOLOGY METHOD 12/04/2024 11:20 AM [facility] NRBC 0.0 <1.0 % LAB HEMETOLOGY METHOD 12/04/2024 11:20 AM [facility] NRBC Absolute 0.00 <0.10 K/mcL LAB HEMETOLOGY METHOD 12/04/2024 11:20 AM [facility] Blood Venous blood specimen / Unknown Venipuncture / Unknown 12/04/2024 8:34 AM EDT 12/04/2024 10:58 AM EDT Lauren Wiley MD LAB BLOOD ORDERABLES Fin al Result Performing Organization Address City/[facility]/ZIP Co de Phone Number [facility] [address] [place] [address], [place] [phone] * Creatine kinase (12/04/2024 8:34 AM EDT) Pathologist [facility] Total CK 36 22 - 269 unit/L LAB CHEMISTRY METHOD 12/04/2024 12:08 PM EDT [facility] Blood Venous blood specimen / Unknown Venipuncture / Unknown 12/04/2024 8:34 AM EDT 12/04/2024 10:57 AM EDT Lauren Wiley MD LAB BLOOD ORDERABLES Fin al Result Performing Organization Address City/[facility]/ZIP Co de Phone Number [facility] [address] [place] [address], [place] [phone] * (ABNORMAL) Comprehensive metabolic panel (12/04/2024 8:34 AM EDT) [facility] Sodium 151(H) 133 - 145 mmol/L LAB CHEMISTRY METHOD 12/04/2024 12:10 PM [facility] Potassium 4.3 3.5 - 5.5 mmol/L LAB CHEMISTRY METHOD 12/04/2024 12:10 PM EDT [facility] Chloride 121(H) 96 - 110 mmol/L LAB CHEMISTRY METHOD 12/04/2024 12:10 PM EDT [facility] CO2 24 21 - 32 mmol/L LAB CHEMISTRY METHOD 12/04/2024 12:10 PM EDT [facility] Anion Gap 6 3 - 11 LAB CHEMISTRY METHOD 12/04/2024 12:10 PM EDT [facility] Glucose 110(H) 70 - 100 mg/dL LAB CHEMISTRY METHOD 12/04/2024 12:10 PM [facility] BUN 59(H) 5 - 25 mg/dL LAB CHEMISTRY METHOD 12/04/2024 12:10 PM [facility] Creatinine 1.63(H) 0.70 - 1.30 mg/dL LAB CHEMISTRY METHOD 12/04/2024 12:10 PM [facility] eGFR 45(L) >=60 mL/min/1. 73m2 LAB CHEMISTRY METHOD 12/04/2024 12:10 PM [facility] Comment:Calculation based on the Chronic Kidney Disease Epidemiology Collaboration (CKD-EPI) equation refit without adjustment for race. BUN/Creatinine Ratio 36.2 LAB CHEMISTRY METHOD 12/04/2024 12:10 PM [facility] Calcium 9.5 8.5 - 10.5 mg/dL LAB CHEMISTRY METHOD 12/04/2024 12:10 PM [facility] AST (SGOT) 21 10 - 42 unit/L LAB CHEMISTRY METHOD 12/04/2024 12:10 PM [facility] ALT (SGPT) 18 10 - 60 unit/L LAB CHEMISTRY METHOD 12/04/2024 12:10 PM [facility] Alkaline Phosphatase 101 42 - 121 unit/L LAB CHEMISTRY METHOD 12/04/2024 12:10 PM [facility] Total Protein 6.5 6.0 - 8.0 g/dL LAB CHEMISTRY METHOD 12/04/2024 12:10 PM [facility] Albumin 1.9(L) 3.2 - 5.0 g/dL LAB CHEMISTRY METHOD 12/04/2024 12:10 PM [facility] Total Bilirubin 0.3 0.0 - 1.4 mg/dL LAB CHEMISTRY METHOD 12/04/2024 12:10 PM [facility] Blood Venous blood specimen / Unknown Venipuncture / Unknown 12/04/2024 8:34 AM EDT 12/04/2024 10:57 AM EDT Lauren Wiley MD LAB BLOOD ORDERABLES Fin al Result [facility] (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
--- OUTSIDE RECORDS SUMMARY | 2025-01-04 18:56 | XMS_ITS | Encounter Summary ---
Author Organization [employer] Address [address] [place] [address] Care Team Providers Care Electro Mechanical Technologist Name Role Phone Lauren Wiley MD Primary Care Provider + Encounter Details Date Type Department Care Team (Late st Contact Info) Description 11/24/2024 Lab Requisition [facility] - Main Lab [address] [place] [address] Lauren Wiley MD [address] [phone] Essential (primary) hypertension; Chronic kidney disease, unspecified [...] Associated Diagnosis Comments COMPLETE BLOOD COUNT Routine 11/27/2024 9:49 AM EDT Essential (primary) hypertension Chronic kidney disease, unspecified CREATINE KINASE Routine 11/27/2024 9:49 AM EDT Essential (primary) hypertension Chronic kidney disease, unspecified COMPREHENSIVE METABOLIC PANEL Routine 11/27/2024 9:49 AM EDT Essential (primary) hypertension Chronic kidney disease, unspecified documented in this encounter Results * (ABNORMAL) Complete blood count (11/27/2024 9:49 AM EDT) WBC 5.6 4.8 - 10.8 K/[facility] LAB HEMETOLOGY METHOD 11/27/2024 12:32 PM EDT [facility] RBC 2.80(L) 4.50 - 5.50 M/mcL LAB HEMETOLOGY METHOD 11/27/2024 12:32 PM EDT [facility] Hemoglobin 8.4(L) 13.5 - 17.5 g/dL LAB HEMETOLOGY METHOD 11/27/2024 12:32 PM [facility] Hematocrit 28.2(L) 42.0 - 54.0 % LAB HEMETOLOGY METHOD 11/27/2024 12:32 PM [facility] MCV 101.1(H) 79.0 - 98.0 FL LAB HEMETOLOGY METHOD 11/27/2024 12:32 PM [facility] MCH 30.1 27.0 - 32.0 pcg LAB HEMETOLOGY METHOD 11/27/2024 12:32 PM [facility] MCHC 29.8(L) 32.0 - 37.0 g/dL LAB HEMETOLOGY METHOD 11/27/2024 12:32 PM [facility] RDW 14.6 11.0 - 15.0 % LAB HEMETOLOGY METHOD 11/27/2024 12:32 PM [facility] Platelets 286 130 - 400 K/mcL LAB HEMETOLOGY METHOD 11/27/2024 12:32 PM [facility] MPV 9.7 7.0 - 11.0 FL LAB HEMETOLOGY METHOD 11/27/2024 12:32 PM [facility] NRBC 0.0 <1.0 % LAB HEMETOLOGY METHOD 11/27/2024 12:32 PM [facility] NRBC Absolute 0.00 <0.10 K/mcL LAB HEMETOLOGY METHOD 11/27/2024 12:32 PM [facility] Blood Venous blood specimen / Unknown Venipuncture / Unknown 11/27/2024 9:49 AM EDT 11/27/2024 10:52 AM EDT Lauren Wiley MD LAB BLOOD ORDERABLES Fin al Result Performing Organization Address [facility]/ZIP Co de Phone Number [facility] [address] [place] [address], [place] [phone] * Creatine kinase (11/27/2024 9:49 AM EDT) Pathologist [facility] Total CK 25 22 - 269 unit/L LAB CHEMISTRY METHOD 11/27/2024 12:10 PM EDT [facility] Blood Venous blood specimen / Unknown Venipuncture / Unknown 11/27/2024 9:49 AM EDT 11/27/2024 10:52 AM EDT Lauren Wiley MD LAB BLOOD ORDERABLES Fin al Result Performing Organization Address City/[facility]/ZIP Co de Phone Number [facility] [address] [place] [address], [place] [phone] * (ABNORMAL) Comprehensive metabolic panel (11/27/2024 9:49 AM EDT) [facility] Sodium 146(H) 133 - 145 mmol/L LAB CHEMISTRY METHOD 11/27/2024 12:10 PM [facility] Potassium 4.7 3.5 - 5.5 mmol/L LAB CHEMISTRY METHOD 11/27/2024 12:10 PM EDT [facility] Chloride 117(H) 96 - 110 mmol/L LAB CHEMISTRY METHOD 11/27/2024 12:10 PM EDT [facility] CO2 24 21 - 32 mmol/L LAB CHEMISTRY METHOD 11/27/2024 12:10 PM [facility] Anion Gap 5 3 - 11 LAB CHEMISTRY METHOD 11/27[facility]24 [facility] Glucose 207(H) 70 - 100 mg/dL LAB CHEMISTRY METHOD 11/27/2024 12:10 PM [facility] BUN 62(H) 5 - 25 mg/dL LAB CHEMISTRY METHOD 11/27/2024 12:10 PM [facility] Creatinine 1.51(H) 0.70 - 1.30 mg/dL LAB CHEMISTRY METHOD 11/27/2024 12:10 PM [facility] eGFR 49(L) >=60 mL/min/1. 73m2 LAB CHEMISTRY METHOD 11/27/2024 12:10 PM [facility] Comment:Calculation based on the Chronic Kidney Disease Epidemiology Collaboration (CKD-EPI) equation refit without adjustment for race. BUN/Creatinine Ratio 41.1 LAB CHEMISTRY METHOD 11/27/2024 12:10 PM [facility] Calcium 9.6 8.5 - 10.5 mg/dL LAB CHEMISTRY METHOD 11/27/2024 12:10 PM [facility] AST (SGOT) 22 10 - 42 unit/L LAB CHEMISTRY METHOD 11/27/2024 12:10 PM [facility] ALT (SGPT) 24 10 - 60 unit/L LAB CHEMISTRY METHOD 11/27/2024 12:10 PM [facility] Alkaline Phosphatase 98 42 - 121 unit/L LAB CHEMISTRY METHOD 11/27/2024 12:10 PM [facility] Total Protein 6.0 6.0 - 8.0 g/dL LAB CHEMISTRY METHOD 11/27/2024 12:10 PM [facility] Albumin 1.7(L) 3.2 - 5.0 g/dL LAB CHEMISTRY METHOD 11/27/2024 12:10 PM [facility] Total Bilirubin 0.2 0.0 - 1.4 mg/dL LAB CHEMISTRY METHOD 11/27/2024 12:10 PM [facility] Blood Venous blood specimen / Unknown Venipuncture / Unknown 11/27/2024 9:49 AM EDT 11/27/2024 10:52 AM EDT Lauren Wiley MD LAB BLOOD ORDERABLES Fin al Result [facility] ([facility]) [facility] [address] [place] [address], documented in this encounter Visit Diagnoses Diagnosis Essential (primary) hypertension Unspecified essential hypertension Chronic kidney disease, unspecified documented in this encounter Additional Health Concerns 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
--- OUTSIDE RECORDS SUMMARY | 2025-01-04 18:56 | XMS_ITS | Encounter Summary ---
Author Organization [employer] Address [address] [place] [address] Care Team Providers Care Hammerer Name Role Phone Lauren Wiley MD Primary Care Provider + Encounter Details Date Type Department Care Team (Late st Contact Info) Description 11/07/2024 Lab Requisition [facility] - Main Lab [address] [place] [address] Lauren Wiley MD [address] [phone] Essential (primary) hypertension; Chronic kidney disease, unspecified [...] Procedure Name Priority Date/Time Associated Diagnosis Comments CREATINE KINASE Routine 11/07/2024 5:52 AM EDT Essential (primary) hypertension Chronic kidney disease, unspecified COMPREHENSIVE METABOLIC PANEL Routine 11/07/2024 5:52 AM EDT Essential (primary) hypertension Chronic kidney disease, unspecified documented in this encounter Results * Creatine kinase (11/07/2024 5:52 AM EDT) Total CK 37 22 - 269 unit/L LAB CHEMISTRY METHOD 11/07/2024 11:11 AM EDT [facility] ([facility]) [facility] Blood Venous blood specimen / Unknown Venipuncture / Unknown 11/07/2024 5:52 AM EDT 11/07/2024 9:55 AM EDT us Lauren Wiley MD LAB BLOOD ORDERABLES Fin al Result [facility] [address] [place] [address], * (ABNORMAL) Comprehensive metabolic panel (11/07/2024 5:52 AM EDT) Sodium 143 133 - 145 mmol/L LAB CHEMISTRY METHOD 11/07/2024 11:[address] [facility] Potassium 3.4(L) 3.5 - 5.5 mmol/L LAB CHEMISTRY METHOD 11/07/2024 11:[address] [facility] Chloride 111(H) 96 - 110 mmol/L LAB CHEMISTRY METHOD 11/07/2024 11:[address] [facility] CO2 23 21 - 32 mmol/L LAB CHEMISTRY METHOD 11/07/2024 11:[address] [facility] Anion Gap 9 3 - 11 LAB CHEMISTRY METHOD 11/07/2024 11:[address] [facility] Glucose 91 70 - 100 mg/dL LAB CHEMISTRY METHOD 11/07/2024 11:[address] [facility] BUN 33(H) 5 - 25 mg/dL LAB CHEMISTRY METHOD 11/07/2024 11:[address] [facility] Creatinine 1.05 0.70 - 1.30 mg/dL LAB CHEMISTRY METHOD 11/07/2024 11:[address] [facility] eGFR 76 >=60 mL/min/1. 73m2 LAB CHEMISTRY METHOD 11/07/2024 11:[address] [facility] Comment:Calculation based on the Chronic Kidney Disease Epidemiology Collaboration (CKD-EPI) equation refit without adjustment for race. BUN/Creatinine Ratio 31.4 LAB CHEMISTRY METHOD 11/07/2024 11:[address] [facility] Calcium 8.7 8.5 - 10.5 mg/dL LAB CHEMISTRY METHOD 11/07/2024 11:[address] [facility] AST (SGOT) 20 10 - 42 unit/L LAB CHEMISTRY METHOD 11/07/2024 11:[address] [facility] ALT (SGPT) 16 10 - 60 unit/L LAB CHEMISTRY METHOD 11/07/2024 11:[address] [facility] Alkaline Phosphatase 109 42 - 121 unit/L LAB CHEMISTRY METHOD 11/07/2024 11:11 AM T [facility] Total Protein 6.0 6.0 - 8.0 g/dL LAB CHEMISTRY METHOD 11/07/2024 11:[address] [facility] Albumin 2.0(L) 3.2 - 5.0 g/dL LAB CHEMISTRY METHOD 11/07/2024 11:[address] [facility] Total Bilirubin 0.3 0.0 - 1.4 mg/dL LAB CHEMISTRY METHOD 11/07/2024 11:[address] 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
--- OUTSIDE RECORDS SUMMARY | 2025-01-04 18:56 | XMS_ITS | Encounter Summary ---
Author Organization [employer] Address [address] [place] [address] Care Team Providers Care Thermocouple Tester Name Role Phone Lauren Wiley MD Primary Care Provider + Encounter Details Date Type Department Care Team (Late st Contact Info) Description 08/23/2024 Lab Requisition [facility] - Main Lab [address] [place] [address] Lauren Wiley MD [address] [phone] Anemia, unspecified Social History Tobacco Use Types [...] Associated Diagnosis Comments COMPLETE BLOOD COUNT Routine 08/24/2024 7:32 AM EDT Anemia, unspecified BASIC METABOLIC PANEL Routine 08/24/2024 7:32 AM EDT Anemia, unspecified documented in this encounter Results * (ABNORMAL) Complete blood count (08/24/2024 7:32 AM EDT) WBC 5.6 4.8 - 10.8 K/[facility] LAB HEMETOLOGY METHOD 08/24/2024 9:48 AM EDT [facility] LAB RBC 2.40(L) 4.50 - 5.50 M/[facility] LAB HEMETOLOGY METHOD 08/24/2024 9:48 AM EDT [facility] LAB Hemoglobin 7.7(L) 13.5 - 17.5 g/dL LAB HEMETOLOGY METHOD 08/24/2024 9:48 AM EDT [facility] LAB Hematocrit 25.0(L) 42.0 - 54.0 % LAB HEMETOLOGY METHOD 08/24/2024 9:48 AM [facility] LAB MCV 103.7(H) 79.0 - 98.0 FL LAB HEMETOLOGY METHOD 08/24/2024 9:48 AM EDT [facility] LAB MCH 32.0 27.0 - 32.0 pcg LAB HEMETOLOGY METHOD 08/24/2024 9:48 AM EDT [facility] LAB MCHC 30.8(L) 32.0 - 37.0 g/dL LAB HEMETOLOGY METHOD 08/24/2024 9:48 AM [facility] LAB RDW 16.8(H) 11.0 - 15.0 % LAB HEMETOLOGY METHOD 08/24/2024 9:48 AM EDT [facility] LAB Platelets 176 130 - 400 K/mcL LAB HEMETOLOGY METHOD 08/24/2024 9:48 AM T [facility] LAB MPV 9.6 7.0 - 11.0 FL LAB HEMETOLOGY METHOD 08/24/2024 9:48 AM [facility] LAB NRBC 0.0 <1.0 % LAB HEMETOLOGY METHOD 08/24/2024 9:48 AM T [facility] LAB NRBC Absolute 0.00 <0.10 K/mcL LAB HEMETOLOGY METHOD 08/24/2024 9:48 AM [facility] LAB Blood Venous blood specimen / Unknown Venipuncture / Unknown 08/24/2024 7:32 AM EDT 08/24/2024 9:29 AM EDT us Lauren Wiley MD LAB BLOOD ORDERABLES Fin al Result [facility] LAB [address] [place] [address], * (ABNORMAL) Basic metabolic panel (08/24/2024 7:32 AM EDT) Sodium 148(H) 133 - 145 mmol/L LAB CHEMISTRY METHOD 08/24/2024 10:19 AM T [facility] LAB Potassium 3.7 3.5 - 5.5 mmol/L LAB CHEMISTRY METHOD 08/24/2024 10:19 AM [facility] LAB Chloride 111(H) 96 - 110 mmol/L LAB CHEMISTRY METHOD 08/24/2024 10:19 AM [facility] LAB CO2 34(H) 21 - 32 mmol/L LAB CHEMISTRY METHOD 08/24/2024 10:19 AM [facility] LAB Anion Gap 3 3 - 11 LAB CHEMISTRY METHOD 08/24/2024 10:19 AM [facility] LAB Glucose 102(H) 70 - 100 mg/dL LAB CHEMISTRY METHOD 08/24/2024 10:19 AM [facility] LAB BUN 55(H) 5 - 25 mg/dL LAB CHEMISTRY METHOD 08/24/2024 10:19 AM [facility] LAB Creatinine 1.17 0.70 - 1.30 mg/dL LAB CHEMISTRY METHOD 08/24/2024 10:19 AM [facility] LAB eGFR 67 >=60 mL/min/1. 73m2 LAB CHEMISTRY METHOD 08/24/2024 10:19 AM [facility] LAB Comment:Calculation based on the Chronic Kidney Disease Epidemiology Collaboration (CKD-EPI) equation refit without adjustment for race. BUN/Creatinine Ratio 47.0 LAB CHEMISTRY METHOD 08/24/2024 10:19 AM [facility] LAB Calcium 8.5 8.5 - 10.5 mg/dL LAB CHEMISTRY METHOD 08/24/2024 10:19 AM [facility] LAB Blood Venous blood specimen / Unknown Venipuncture / Unknown 08/24/2024 7:32 AM EDT 08/24/2024 9:29 AM EDT Lauren Wiley MD LAB BLOOD ORDERABLES Fin al Result [facility] LAB [address] [place] [address], documented in this encounter Visit Diagnoses Diagnosis Anemia, unspecified documented in this encounter Additional Health Concerns 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
--- OUTSIDE RECORDS SUMMARY | 2025-01-04 18:56 | XMS_ITS | Encounter Summary ---
Author Organization [employer] Address [address] [place] [address] Care Team Providers Care Dobby Loom Fixer Name Role Phone Lauren Wiley MD Primary Care Provider + Encounter Details Date Type Department Care Team (Late st Contact Info) Description 08/15/2024 Lab Requisition [facility] - Main Lab [address] [facility] [place] [address] Lauren Wiley MD [address] [address] Essential (primary) hypertension; Chronic kidney disease, unspecified [...] documented as of this encounter Care Teams Dobby Loom Fixer Relationship Specialty Start Date End Date Lauren Wiley MD [address] [phone] PCP - General Family Medicine 12/01/24 documented as of this encounter
--- OUTSIDE RECORDS SUMMARY | 2025-01-04 18:56 | XMS_ITS | Encounter Summary ---
Author Organization [employer] Address [address] [place] [address] Care Team Providers Care Vat Cleaner Name Role Phone Lauren Wiley MD Primary Care Provider + Encounter Details Date Type Department Care Team (Late st Contact Info) Description 08/14/2024 Lab Requisition [facility] - Main Lab 299 [facility] [place] [address] Lauren iWley MD [address] [address] Essential (primary) hypertension; Chronic kidney disease, unspecified [...] documented as of this encounter Care Teams Vat Cleaner Relationship Specialty Start Date End Date Lauren Wiley MD [address] [phone] PCP - General Family Medicine 12/01/24 documented as of this encounter
--- OUTSIDE RECORDS SUMMARY | 2025-01-04 18:56 | XMS_ITS | Encounter Summary ---
Author Organization [employer] Address [address] [place] [address] Care Team Providers Care Historical Society Director Name Role Phone Lauren Wiley MD Primary Care Provider + Encounter Details Date Type Department Care Team (Late st Contact Info) Description 08/09/2024 Lab Requisition [facility] - Main Lab [address] [place] [address] Lauren Wiley MD [address] [phone] Anemia, unspecified Social History Tobacco Use Types [...] Associated Diagnosis Comments COMPLETE BLOOD COUNT Routine 08/10/2024 5:27 AM EDT Anemia, unspecified BASIC METABOLIC PANEL Routine 08/10/2024 5:27 AM EDT Anemia, unspecified documented in this encounter Results * (ABNORMAL) Basic metabolic panel (08/10/2024 5:27 AM EDT) Sodium 140 133 - 145 mmol/L LAB CHEMISTRY METHOD 08/10/2024 9:18 AM [facility] LAB Potassium 3.9 3.5 - 5.5 mmol/L LAB CHEMISTRY METHOD 08/10/2024 9:18 AM [facility] LAB Chloride 105 96 - 110 mmol/L LAB CHEMISTRY METHOD 08/10/2024 9:18 AM [facility] LAB CO2 28 21 - 32 mmol/L LAB CHEMISTRY METHOD 08/10/2024 9:18 AM [facility] LAB Anion Gap 7 3 - 11 LAB CHEMISTRY METHOD 08/10/2024 9:18 AM [facility] LAB Glucose 108(H) 70 - 100 mg/dL LAB CHEMISTRY METHOD 08/10/2024 9:18 AM [facility] LAB BUN 41(H) 5 - 25 mg/dL LAB CHEMISTRY METHOD 08/10/2024 9:18 AM [facility] LAB Creatinine 1.34(H) 0.70 - 1.30 mg/dL LAB CHEMISTRY METHOD 08/10/2024 9:18 AM [facility] LAB eGFR 57(L) >=60 mL/min/1. 73m2 LAB CHEMISTRY METHOD 08/10/2024 9:18 AM [facility] LAB Comment:Calculation based on the Chronic Kidney Disease Epidemiology Collaboration (CKD-EPI) equation refit without adjustment for race. BUN/Creatinine Ratio 30.6 LAB CHEMISTRY METHOD 08/10/2024 9:18 AM [facility] LAB Calcium 8.6 8.5 - 10.5 mg/dL LAB CHEMISTRY METHOD 08/10/2024 9:18 AM [facility] LAB Blood Venous blood specimen / Unknown Venipuncture / Unknown 08/10/2024 5:27 AM EDT 08/10/2024 8:19 AM EDT us Lauren Wiley MD LAB BLOOD ORDERABLES Fin al Result [facility] LAB [address] [place] [address], * (ABNORMAL) Complete blood count (08/10/2024 5:27 AM EDT) WBC 8.4 4.8 - 10.8 K/[facility] LAB HEMETOLOGY METHOD 08/10/2024 8:44 AM [facility] LAB RBC 2.40(L) 4.50 - 5.50 M/mcL LAB HEMETOLOGY METHOD 08/10/2024 8:44 AM [facility] LAB Hemoglobin 7.8(L) 13.5 - 17.5 g/dL LAB HEMETOLOGY METHOD 08/10/2024 8:44 AM [facility] LAB Hematocrit 24.0(L) 42.0 - 54.0 % LAB HEMETOLOGY METHOD 08/10/2024 8:44 AM [facility] LAB MCV 98.8(H) 79.0 - 98.0 FL LAB HEMETOLOGY METHOD 08/10/2024 8:44 AM [facility] LAB MCH 32.1(H) 27.0 - 32.0 pcg LAB HEMETOLOGY METHOD 08/10/2024 8:44 AM [facility] LAB MCHC 32.5 32.0 - 37.0 g/dL LAB HEMETOLOGY METHOD 08/10/2024 8:44 AM [facility] LAB RDW 15.2(H) 11.0 - 15.0 % LAB HEMETOLOGY METHOD 08/10/2024 8:44 AM [facility] LAB Platelets 220 130 - 400 K/mcL LAB HEMETOLOGY METHOD 08/10/2024 8:44 AM [facility] LAB MPV 9.9 7.0 - 11.0 FL LAB HEMETOLOGY METHOD 08/10/2024 8:44 AM [facility] LAB NRBC 0.0 <1.0 % LAB HEMETOLOGY METHOD 08/10/2024 8:44 AM [facility] LAB NRBC Absolute 0.00 <0.10 K/mcL LAB HEMETOLOGY METHOD 08/10/2024 8:44 AM [facility] LAB Blood Venous blood specimen / Unknown Venipuncture / Unknown 08/10/2024 5:27 AM EDT 08/10/2024 8:19 AM EDT Lauren Wiley MD LAB BLOOD ORDERABLES Fin al Result [facility] LAB [address] [place] [address], documented in this encounter Visit Diagnoses Diagnosis Anemia, unspecified documented in this encounter Additional Health Concerns 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
--- OUTSIDE RECORDS SUMMARY | 2025-01-04 18:56 | XMS_ITS | Encounter Summary ---
Author Organization [employer] Address [address] [place] [address] Care Team Providers Care College Director Name Role Phone Lauren Wiley MD Primary Care Provider + Encounter Details Date Type Department Care Team (Late st Contact Info) Description 10/27/2024 Lab Requisition [facility] - Main Lab 299 [facility] [place] [address] Lauren Wiley MD [address] [phone] Hyperlipidemia, unspecified Social History Tobacco Use Types Packs/Day [...] Procedure Name Priority Date/Time Associated Diagnosis Comments LIPID PANEL WITH REFLEX TO DIRECT LDL Routine 10/27/2024 6:09 AM EDT Hyperlipidemia, unspecified documented in this encounter Results * (ABNORMAL) Lipid panel with reflex to direct LDL (10/27/2024 6:09 AM EDT) Cholesterol 92 0 - 200 mg/dL LAB CHEMISTRY METHOD 10/27/2024 9:15 AM EDT [facility] LAB Triglycerides 77 0 - 150 mg/dL LAB CHEMISTRY METHOD 10/27/2024 9:15 AM EDT [facility] LAB HDL 28(L) >=40 mg/dL LAB CHEMISTRY METHOD 10/27/2024 9:15 AM EDT [facility] LAB LDL Calculated 49 0 - 100 mg/dL LAB CHEMISTRY METHOD 10/27/2024 9:15 AM EDT [facility] LAB Comment:Estimated LDL Calcul ated using equation: Total cholesterol - HDL cholesterol - (Triglycerides/5) VLDL Cholesterol Andrea 15.4 mg/dL LAB CHEMISTRY METHOD 10/27/2024 9:15 AM EDT [facility] LAB Non HDL Chol. 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
--- OUTSIDE RECORDS SUMMARY | 2025-01-04 18:56 | XMS_ITS | Encounter Summary ---
Author Organization [employer] Address [address] [place] [address] Care Team Providers Care New Car Driver Name Role Phone Lauren Wiley MD Primary Care Provider + Encounter Details Date Type Department Care Team (Late st Contact Info) Description 09/08/2024 Lab Requisition [facility] - Main Lab [address] [place] [address] Lauren Wiley MD [address] [phone] Essential (primary) hypertension; Chronic kidney disease, unspecified [...] Associated Diagnosis Comments COMPLETE BLOOD COUNT Routine 09/11/2024 8:52 AM EDT Essential (primary) hypertension Chronic kidney disease, unspecified CREATINE KINASE Routine 09/11/2024 8:52 AM EDT Essential (primary) hypertension Chronic kidney disease, unspecified COMPREHENSIVE METABOLIC PANEL Routine 09/11/2024 8:52 AM EDT Essential (primary) hypertension Chronic kidney disease, unspecified documented in this encounter Results * (ABNORMAL) Complete blood count (09/11/2024 8:52 AM EDT) WBC 5.6 4.8 - 10.8 K/[facility] LAB HEMETOLOGY METHOD 09/11/2024 12:[address] [facility] LAB RBC 2.40(L) 4.50 - 5.50 M/mcL LAB HEMETOLOGY METHOD 09/11/2024 12:[address] [facility] LAB Hemoglobin 8.1(L) 13.5 - 17.5 g/dL LAB HEMETOLOGY METHOD 09/11/2024 12:[address] [facility] LAB Hematocrit 25.9(L) 42.0 - 54.0 % LAB HEMETOLOGY METHOD 09/11/2024 12:[address] [facility] LAB MCV 106.1(H) 79.0 - 98.0 FL LAB HEMETOLOGY METHOD 09/11[facility]24 12[facility] MCH 33.2(H) 27.0 - 32.0 pcg LAB HEMETOLOGY METHOD 09/11/2024 12:10 PM [facility] LAB MCHC 31.3(L) 32.0 - 37.0 g/dL LAB HEMETOLOGY METHOD 09/11/2024 12:10 PM [facility] LAB RDW 16.1(H) 11.0 - 15.0 % LAB HEMETOLOGY METHOD 09/11/2024 12:10 PM [facility] LAB Platelets 233 130 - 400 K/mcL LAB HEMETOLOGY METHOD 09/11/2024 12:10 PM [facility] LAB MPV 10.3 7.0 - 11.0 FL LAB HEMETOLOGY METHOD 09/11/2024 12:10 PM [facility] LAB NRBC 0.0 <1.0 % LAB HEMETOLOGY METHOD 09/11/2024 12:10 [facility] NRBC Absolute 0.00 <0.10 K/mcL LAB HEMETOLOGY METHOD 09/11/2024 12:10 PM [facility] LAB Blood Venous blood specimen / Unknown Venipuncture / Unknown 09/11/2024 8:52 AM EDT 09/11/2024 11:28 AM EDT Lauren Wiley MD LAB BLOOD ORDERABLES Fin al Result Performing Organization Address City/[facility]/ZIP Co de Phone Number [facility] LAB [address] [place] [address], [place] [phone] * Creatine kinase (09/11/2024 8:52 AM EDT) Pathologist [facility] Total CK 35 22 - 269 unit/L LAB CHEMISTRY METHOD 09/11/2024 1:[address] [facility] LAB Blood Venous blood specimen / Unknown Venipuncture / Unknown 09/11/2024 8:52 AM EDT 09/11/2024 11:28 AM EDT Lauren Wiley MD LAB BLOOD ORDERABLES Fin al Result Per[employer] Organization Address City/[facility]/ZIP Co de Phone Number [facility] [address] [place] [address], [place] [phone] * (ABNORMAL) Comprehensive metabolic panel (09/11/2024 8:52 AM EDT) [facility] Sodium 141 133 - 145 mmol/L LAB CHEMISTRY METHOD 09/11/2024 1:[address] [facility] LAB Potassium 4.1 3.5 - 5.5 mmol/L LAB CHEMISTRY METHOD 09/11/2024 1:[address] [facility] Chloride 107 96 - 110 mmol/L LAB CHEMISTRY METHOD 09/11/2024 1:[address] [facility] CO2 27 21 - 32 mmol/L LAB CHEMISTRY METHOD 09/11/2024 1:[address] [facility] Anion Gap 7 3 - 11 LAB CHEMISTRY METHOD 09/11/2024 1:[address] [facility] Glucose 124(H) 70 - 100 mg/dL LAB CHEMISTRY METHOD 09/11/2024 1:31 PM [facility] BUN 39(H) 5 - 25 mg/dL LAB CHEMISTRY METHOD 09/11/2024 1:31 PM [facility] LAB Creatinine 1.21 0.70 - 1.30 mg/dL LAB CHEMISTRY METHOD 09/11/2024 1:31 PM [facility] LAB eGFR 65 >=60 mL/min/1. 73m2 LAB CHEMISTRY METHOD 09/11/2024 1:31 PM [facility] LAB Comment:Calculation based on the Chronic Kidney Disease Epidemiology Collaboration (CKD-EPI) equation refit without adjustment for race. BUN/Creatinine Ratio 32.2 LAB CHEMISTRY METHOD 09/11/2024 1:31 PM [facility] LAB Calcium 8.8 8.5 - 10.5 mg/dL LAB CHEMISTRY METHOD 09/11/2024 1:31 PM [facility] AST (SGOT) 21 10 - 42 unit/L LAB CHEMISTRY METHOD 09/11/2024 1:31 PM [facility] ALT (SGPT) 19 10 - 60 unit/L LAB CHEMISTRY METHOD 09/11/2024 1:31 PM [facility] Alkaline Phosphatase 106 42 - 121 unit/L LAB CHEMISTRY METHOD 09/11/2024 1:31 PM [facility] Total Protein 6.5 6.0 - 8.0 g/dL LAB CHEMISTRY METHOD 09/11/2024 1:31 PM [facility] Albumin 2.0(L) 3.2 - 5.0 g/dL LAB CHEMISTRY METHOD 09/11/2024 1:31 PM [facility] Total Bilirubin 0.4 0.0 - 1.4 mg/dL LAB CHEMISTRY METHOD 09/11/2024 1:31 PM [facility] Blood Venous blood specimen / Unknown Venipuncture / Unknown 09/11/2024 8:52 AM EDT 09/11/2024 11:28 AM EDT us Lauren Wiley MD LAB BLOOD ORDERABLES Fin al Result [facility] [address] [place] [address], documented in this encounter Visit Diagnoses Diagnosis Essential (primary) hypertension Unspecified essential hypertension Chronic kidney disease, unspecified documented in this encounter Additional Health Concerns 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
--- OUTSIDE RECORDS SUMMARY | 2025-01-04 18:56 | XMS_ITS | Encounter Summary ---
Author Organization [employer] Address [address] [place] [address] Care Team Providers Care Scrummaster Name Role Phone Lauren Wiley MD Primary Care Provider + Encounter Details Date Type Department Care Team (Late st Contact Info) Description 12/06/2024 Lab Requisition [facility] Lab [address] [place] [address] Lauren Wiley MD [address] [phone] Anemia, unspecified Social History Tobacco Use Types [...] Associated Diagnosis Comments COMPLETE BLOOD COUNT Routine 12/07/2024 4:52 AM EDT Anemia, unspecified BASIC METABOLIC PANEL Routine 12/07/2024 4:52 AM EDT Anemia, unspecified documented in this encounter Results * (ABNORMAL) Complete blood count (12/07/2024 4:52 AM EDT) WBC 4.7(L) 4.8 - 10.8 K/[facility] LAB HEMETOLOGY METHOD 12/07/2024 9:03 AM EDT [facility] LAB RBC 2.40(L) 4.50 - 5.50 M/[facility] LAB HEMETOLOGY METHOD 12/07/2024 9:03 AM EDT [facility] LAB Hemoglobin 7.4(L) 13.5 - 17.5 g/dL LAB HEMETOLOGY METHOD 12/07/2024 9:03 AM [facility] LAB Hematocrit 23.5(L) 42.0 - 54.0 % LAB HEMETOLOGY METHOD 12/07/2024 9:03 AM [facility] LAB MCV 98.3(H) 79.0 - 98.0 FL LAB HEMETOLOGY METHOD 12/07/2024 9:03 AM [facility] LAB MCH 31.0 27.0 - 32.0 pcg LAB HEMETOLOGY METHOD 12/07/2024 9:03 AM [facility] LAB MCHC 31.5(L) 32.0 - 37.0 g/dL LAB HEMETOLOGY METHOD 12/07/2024 9:03 AM [facility] LAB RDW 15.0 11.0 - 15.0 % LAB HEMETOLOGY METHOD 12/07/2024 9:03 AM [facility] LAB Platelets 179 130 - 400 K/mcL LAB HEMETOLOGY METHOD 12/07/2024 9:03 AM [facility] LAB MPV 10.7 7.0 - 11.0 FL LAB HEMETOLOGY METHOD 12/07/2024 9:03 AM [facility] LAB NRBC 0.0 <1.0 % LAB HEMETOLOGY METHOD 12/07/2024 9:03 AM [facility] LAB NRBC Absolute 0.00 <0.10 K/mcL LAB HEMETOLOGY METHOD 12/07/2024 9:03 AM [facility] LAB Blood Venous blood specimen / Unknown Venipuncture / Unknown 12/07/2024 4:52 AM EDT 12/07/2024 8:49 AM EDT us Lauren Wiley MD LAB BLOOD ORDERABLES Fin al Result [facility] [address] [place] [address], [place] [phone] * (ABNORMAL) Basic metabolic panel (12/07/2024 4:52 AM EDT) Sodium 142 133 - 145 mmol/L LAB CHEMISTRY METHOD 12/07/2024 9:28 AM EDT [facility] Potassium 4.1 3.5 - 5.5 mmol/L LAB CHEMISTRY METHOD 12/07/2024 9:28 AM [facility] Chloride 111(H) 96 - 110 mmol/L LAB CHEMISTRY METHOD 12/07/2024 9:28 AM [facility] LAB CO2 26 21 - 32 mmol/L LAB CHEMISTRY METHOD 12/07/2024 9:28 AM [facility] Anion Gap 5 3 - 11 LAB CHEMISTRY METHOD 12/07/2024 9:28 AM [facility] Glucose 129(H) 70 - 100 mg/dL LAB CHEMISTRY METHOD 12/07/2024 9:28 AM [facility] BUN 53(H) 5 - 25 mg/dL LAB CHEMISTRY METHOD 12/07/2024 9:28 AM [facility] LAB Creatinine 1.51(H) 0.70 - 1.30 mg/dL LAB CHEMISTRY METHOD 12/07/2024 9:28 AM [facility] LAB eGFR 49(L) >=60 mL/min/1. 73m2 LAB CHEMISTRY METHOD 12/07/2024 9:28 AM [facility] LAB Comment:Calculation based on the Chronic Kidney Disease Epidemiology Collaboration (CKD-EPI) equation refit without adjustment for race. BUN/Creatinine Ratio 35.1 LAB CHEMISTRY METHOD 12/07/2024 9:28 AM [facility] LAB Calcium 8.5 8.5 - 10.5 mg/dL LAB CHEMISTRY METHOD 12/07/2024 9:28 AM [facility] Blood Venous blood specimen / Unknown Venipuncture / Unknown 12/07/2024 4:52 AM EDT 12/07/2024 8:49 AM EDT Lauren Wiley MD LAB BLOOD ORDERABLES Fin al Result [facility] ([facility]) [facility] [address] [place] [address], documented in this encounter Visit Diagnoses Diagnosis Anemia, unspecified documented in this encounter Additional Health Concerns 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
--- OUTSIDE RECORDS SUMMARY | 2025-01-04 18:57 | XMS_ITS | Encounter Summary ---
Author Organization [employer] Address [address] [place] [address] Care Team Providers Care Physician General Practice Name Role Phone Lauren Wiley MD Primary Care Provider + Encounter Details Date Type Department Care Team (Late st Contact Info) Description 10/13/2024 Lab Requisition [facility] - Main Lab [address] [place] [address] Lauren Wiley MD [address] [address] Essential (primary) hypertension; Chronic kidney disease, unspecified [...] Associated Diagnosis Comments COMPLETE BLOOD COUNT Routine 10/16/2024 6:57 AM EDT Essential (primary) hypertension Chronic kidney disease, unspecified CREATINE KINASE Routine 10/16/2024 6:57 AM EDT Essential (primary) hypertension Chronic kidney disease, unspecified COMPREHENSIVE METABOLIC PANEL Routine 10/16/2024 6:57 AM EDT Essential (primary) hypertension Chronic kidney disease, unspecified documented in this encounter Results * (ABNORMAL) Complete blood count (10/16/2024 6:57 AM EDT) WBC 6.0 4.8 - 10.8 K/[facility] LAB HEMETOLOGY METHOD 10/16/2024 10:36 AM EDT [facility] LAB RBC 2.70(L) 4.50 - 5.50 M/mcL LAB HEMETOLOGY METHOD 10/16/2024 10:36 AM [facility] LAB Hemoglobin 8.7(L) 13.5 - 17.5 g/dL LAB HEMETOLOGY METHOD 10/16/2024 10:36 AM [facility] LAB Hematocrit 27.4(L) 42.0 - 54.0 % LAB HEMETOLOGY METHOD 10/16/2024 10:36 AM [facility] LAB MCV 101.1(H) 79.0 - 98.0 FL LAB HEMETOLOGY METHOD 10/16/2024 10:36 AM [facility] LAB MCH 32.1(H) 27.0 - 32.0 pcg LAB HEMETOLOGY METHOD 10/16/2024 10:36 AM [facility] LAB MCHC 31.8(L) 32.0 - 37.0 g/dL LAB HEMETOLOGY METHOD 10/16/2024 10:36 AM [facility] LAB RDW 14.7 11.0 - 15.0 % LAB HEMETOLOGY METHOD 10/16/2024 10:36 AM [facility] LAB Platelets 188 130 - 400 K/mcL LAB HEMETOLOGY METHOD 10/16/2024 10:36 AM [facility] LAB MPV 9.6 7.0 - 11.0 FL LAB HEMETOLOGY METHOD 10/16/2024 10:36 AM [facility] LAB NRBC 0.0 <1.0 % LAB HEMETOLOGY METHOD 10/16/2024 10:36 AM [facility] LAB NRBC Absolute 0.00 <0.10 K/mcL LAB HEMETOLOGY METHOD 10/16/2024 10:36 AM [facility] LAB Blood Venous blood specimen / Unknown Venipuncture / Unknown 10/16/2024 6:57 AM EDT 10/16/2024 10:17 AM EDT Lauren Wiley MD LAB BLOOD ORDERABLES Fin al Result Performing Organization Address [facility]/ZIP Co de Phone Number [facility] LAB [address] [place] [address], [place] [phone] * Creatine kinase (10/16/2024 6:57 AM EDT) [facility] Total CK 37 22 - 269 unit/L LAB CHEMISTRY METHOD 10/16/2024 11:03 AM EDT [facility] LAB Blood Venous blood specimen / Unknown Venipuncture / Unknown 10/16/2024 6:57 AM EDT 10/16/2024 10:17 AM EDT Lauren Wiley MD LAB BLOOD ORDERABLES Fin al Result Performing Organization Address City/[facility]/ZIP Co de Phone Number [facility] LAB [address] [place] [address], [place] [phone] * (ABNORMAL) Comprehensive metabolic panel (10/16/2024 6:57 AM EDT) [facility] Sodium 140 133 - 145 mmol/L LAB CHEMISTRY METHOD 10/16/2024 11:03 AM [facility] LAB Potassium 4.5 3.5 - 5.5 mmol/L LAB CHEMISTRY METHOD 10/16/2024 11:03 AM [facility] LAB Chloride 109 96 - 110 mmol/L LAB CHEMISTRY METHOD 10/16/2024 11:03 AM [facility] LAB CO2 27 21 - 32 mmol/L LAB CHEMISTRY METHOD 10/16/2024 11:03 AM [facility] LAB Anion Gap 4 3 - 11 LAB CHEMISTRY METHOD 10/16/2024 11:03 AM [facility] LAB Glucose 83 70 - 100 mg/dL LAB CHEMISTRY METHOD 10/16/2024 11:03 AM [facility] LAB BUN 31(H) 5 - 25 mg/dL LAB CHEMISTRY METHOD 10/16/2024 11:03 AM [facility] LAB Creatinine 1.10 0.70 - 1.30 mg/dL LAB CHEMISTRY METHOD 10/16/2024 11:03 AM [facility] LAB eGFR 72 >=60 mL/min/1. 73m2 LAB CHEMISTRY METHOD 10/16/2024 11:03 AM [facility] LAB Comment:Calculation based on the Chronic Kidney Disease Epidemiology Collaboration (CKD-EPI) equation refit without adjustment for race. BUN/Creatinine Ratio 28.2 LAB CHEMISTRY METHOD 10/16/2024 11:03 AM [facility] LAB Calcium 8.7 8.5 - 10.5 mg/dL LAB CHEMISTRY METHOD 10/16/2024 11:03 AM [facility] LAB AST (SGOT) 19 10 - 42 unit/L LAB CHEMISTRY METHOD 10/16/2024 11:03 AM [facility] LAB ALT (SGPT) 15 10 - 60 unit/L LAB CHEMISTRY METHOD 10/16/2024 11:03 AM [facility] LAB Alkaline Phosphatase 102 42 - 121 unit/L LAB CHEMISTRY METHOD 10/16/2024 11:03 AM [facility] LAB Total Protein 6.6 6.0 - 8.0 g/dL LAB CHEMISTRY METHOD 10/16/2024 11:03 AM [facility] LAB Albumin 2.1(L) 3.2 - 5.0 g/dL LAB CHEMISTRY METHOD 10/16/2024 11:03 AM [facility] LAB Total Bilirubin 0.5 0.0 - 1.4 mg/dL LAB CHEMISTRY METHOD 10/16/2024 11:03 AM [facility] LAB Blood Venous blood specimen / Unknown Venipuncture / Unknown 10/16/2024 6:57 AM EDT 10/16/2024 10:17 AM EDT us Lauren Wiley MD LAB BLOOD ORDERABLES Fin al Result [facility] ([facility]) [facility] LAB [address] [place] [address], documented in this encounter Visit Diagnoses Diagnosis Essential (primary) hypertension Unspecified essential hypertension Chronic kidney disease, unspecified documented in this encounter Additional Health Concerns 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
--- OUTSIDE RECORDS SUMMARY | 2025-01-04 18:57 | XMS_ITS | Encounter Summary ---
Author Organization [employer] Address [address] [place] [address] Care Team Providers Care Cook Box Filler Name Role Phone Lauren Wiley MD Primary Care Provider + Encounter Details Date Type Department Care Team (Late st Contact Info) Description 10/18/2024 Lab Requisition [facility] Lab [address] [place] [address] Lauren Wiley MD [address] [phone] Anemia, unspecified Social History Tobacco Use Types [...] Associated Diagnosis Comments COMPLETE BLOOD COUNT Routine 10/19/2024 7:43 AM EDT Anemia, unspecified BASIC METABOLIC PANEL Routine 10/19/2024 7:43 AM EDT Anemia, unspecified documented in this encounter Results * (ABNORMAL) Complete blood count (10/19/2024 7:43 AM EDT) WBC 5.8 4.8 - 10.8 K/[facility] LAB HEMETOLOGY METHOD 10/19/2024 10:14 AM EDT [facility] LAB RBC 2.80(L) 4.50 - 5.50 M/[facility] LAB HEMETOLOGY METHOD 10/19/2024 10:14 AM EDT [facility] LAB Hemoglobin 8.7(L) 13.5 - 17.5 g/dL LAB HEMETOLOGY METHOD 10/19/2024 10:14 AM EDT [facility] LAB Hematocrit 27.8(L) 42.0 - 54.0 % LAB HEMETOLOGY METHOD 10/19/2024 10:14 AM [facility] LAB MCV 101.1(H) 79.0 - 98.0 FL LAB HEMETOLOGY METHOD 10/19/2024 10:14 AM EDT [facility] LAB MCH 31.6 27.0 - 32.0 pcg LAB HEMETOLOGY METHOD 10/19/2024 10:14 AM EDT [facility] LAB MCHC 31.3(L) 32.0 - 37.0 g/dL LAB HEMETOLOGY METHOD 10/19/2024 10:14 AM [facility] LAB RDW 14.5 11.0 - 15.0 % LAB HEMETOLOGY METHOD 10/19/2024 10:14 AM EDT [facility] LAB Platelets 209 130 - 400 K/mcL LAB HEMETOLOGY METHOD 10/19/2024 10:14 AM EDT [facility] LAB MPV 9.6 7.0 - 11.0 FL LAB HEMETOLOGY METHOD 10/19/2024 10:14 AM [facility] LAB NRBC 0.0 <1.0 % LAB HEMETOLOGY METHOD 10/19/2024 10:14 AM EDT [facility] LAB NRBC Absolute 0.00 <0.10 K/mcL LAB HEMETOLOGY METHOD 10/19/2024 10:14 AM [facility] LAB Blood Venous blood specimen / Unknown Venipuncture / Unknown 10/19/2024 7:43 AM EDT 10/19/2024 9:05 AM EDT us Lauren Wiley MD LAB BLOOD ORDERABLES Fin al Result [facility] LAB [address] [place] [address], * (ABNORMAL) Basic metabolic panel (10/19/2024 7:43 AM EDT) Sodium 140 133 - 145 mmol/L LAB CHEMISTRY METHOD 10/19/2024 10:46 AM [facility] LAB Potassium 3.5 3.5 - 5.5 mmol/L LAB CHEMISTRY METHOD 10/19/2024 10:46 AM [facility] LAB Chloride 109 96 - 110 mmol/L LAB CHEMISTRY METHOD 10/19/2024 10:46 AM [facility] LAB CO2 26 21 - 32 mmol/L LAB CHEMISTRY METHOD 10/19/2024 10:46 AM [facility] LAB Anion Gap 5 3 - 11 LAB CHEMISTRY METHOD 10/19/2024 10:46 AM [facility] LAB Glucose 118(H) 70 - 100 mg/dL LAB CHEMISTRY METHOD 10/19/2024 10:46 AM [facility] LAB BUN 41(H) 5 - 25 mg/dL LAB CHEMISTRY METHOD 10/19/2024 10:46 AM [facility] LAB Creatinine 1.16 0.70 - 1.30 mg/dL LAB CHEMISTRY METHOD 10/19/2024 10:46 AM [facility] LAB eGFR 68 >=60 mL/min/1. 73m2 LAB CHEMISTRY METHOD 10/19/2024 10:46 AM [facility] LAB Comment:Calculation based on the Chronic Kidney Disease Epidemiology Collaboration (CKD-EPI) equation refit without adjustment for race. BUN/Creatinine Ratio 35.3 LAB CHEMISTRY METHOD 10/19/2024 10:46 AM [facility] LAB Calcium 8.8 8.5 - 10.5 mg/dL LAB CHEMISTRY METHOD 10/19/2024 10:46 AM [facility] LAB Blood Venous blood specimen / Unknown Venipuncture / Unknown 10/19/2024 7:43 AM EDT 10/19/2024 9:05 AM EDT us Lauren Wiley MD LAB BLOOD ORDERABLES Fin al Result [facility] ([facility]) [facility] LAB [address] [place] [address], documented in this encounter Visit Diagnoses Diagnosis Anemia, unspecified documented in this encounter Additional Health Concerns 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
--- OUTSIDE RECORDS SUMMARY | 2025-01-04 18:57 | XMS_ITS | Encounter Summary ---
Author Organization [employer] Address [address] [place] [address] Care Team Providers Care Curatorial Assistant Name Role Phone Lauren Wiley MD Primary Care Provider + Encounter Details Date Type Department Care Team (Late st Contact Info) Description 09/01/2024 Lab Requisition [facility] - Main Lab [address] [place] [address] Lauren Wiley MD [address] [phone] Essential (primary) hypertension; Chronic kidney disease, unspecified [...] Date/Time Associated Diagnosis Comments CREATINE KINASE Routine 09/04/2024 7:43 AM EDT Essential (primary) hypertension Chronic kidney disease, unspecified COMPREHENSIVE METABOLIC PANEL Routine 09/04/2024 7:43 AM EDT Essential (primary) hypertension Chronic kidney disease, unspecified documented in this encounter Results * Creatine kinase (09/04/2024 7:43 AM EDT) Total CK 35 22 - 269 unit/L LAB CHEMISTRY METHOD 09/04/2024 5:14 PM EDT [facility] ([facility]) [facility] LAB Blood Venous blood specimen / Unknown Venipuncture / Unknown 09/04/2024 7:43 AM EDT 09/04/2024 10:09 AM EDT us Lauren Wiley MD LAB BLOOD ORDERABLES Fin al Result [facility] LAB [address] [place] [address], * (ABNORMAL) Comprehensive metabolic panel (09/04/2024 7:43 AM EDT) Sodium 142 133 - 145 mmol/L LAB CHEMISTRY METHOD 09/04/2024 5:[address] [facility] LAB Potassium 3.8 3.5 - 5.5 mmol/L LAB CHEMISTRY METHOD 09/04/2024 5:[address] [facility] LAB Chloride 108 96 - 110 mmol/L LAB CHEMISTRY METHOD 09/04/2024 5:[address] [facility] LAB CO2 30 21 - 32 mmol/L LAB CHEMISTRY METHOD 09/04/2024 5:[address] [facility] LAB Anion Gap 4 3 - 11 LAB CHEMISTRY METHOD 09/04/2024 5:[address] [facility] LAB Glucose 90 70 - 100 mg/dL LAB CHEMISTRY METHOD 09/04/2024 5:[address] [facility] LAB BUN 47(H) 5 - 25 mg/dL LAB CHEMISTRY METHOD 09/04/2024 5:[address] [facility] LAB Creatinine 1.18 0.70 - 1.30 mg/dL LAB CHEMISTRY METHOD 09/04/2024 5:[address] [facility] LAB eGFR 67 >=60 mL/min/1. 73m2 LAB CHEMISTRY METHOD 09/04/2024 5:[address] [facility] LAB Comment:Calculation based on the Chronic Kidney Disease Epidemiology Collaboration (CKD-EPI) equation refit without adjustment for race. BUN/Creatinine Ratio 39.8 LAB CHEMISTRY METHOD 09/04/2024 5:[address] [facility] LAB Calcium 8.7 8.5 - 10.5 mg/dL LAB CHEMISTRY METHOD 09/04/2024 5:14 PM EDT [facility] LAB AST (SGOT) 25 10 - 42 unit/L LAB CHEMISTRY METHOD 09/04/2024 5:14 PM EDT [facility] LAB ALT (SGPT) 22 10 - 60 unit/L LAB CHEMISTRY METHOD 09/04/2024 5:14 PM EDT [facility] LAB Alkaline Phosphatase 96 42 - 121 unit/L LAB CHEMISTRY METHOD 09/04/2024 5:14 PM EDT [facility] LAB Total Protein 6.0 6.0 - 8.0 g/dL LAB CHEMISTRY METHOD 09/04/2024 5:14 PM EDT [facility] LAB Albumin 2.0(L) 3.2 - 5.0 g/dL LAB CHEMISTRY METHOD 09/04/2024 5:14 PM EDT [facility] Total Bilirubin 0.5 0.0 - 1.4 mg/dL LAB CHEMISTRY METHOD 09/04/2024 5:14 PM EDT [facility] LAB Blood Venous blood specimen / Unknown Venipuncture / Unknown 09/04/2024 7:43 AM EDT 09/04/2024 10:09 AM EDT us Lauren Wiley MD LAB BLOOD ORDERABLES Fin al Result [facility] LAB [address] [place] [address], documented in this encounter Visit Diagnoses Diagnosis Essential (primary) hypertension Unspecified essential hypertension Chronic kidney disease, unspecified documented in this encounter Additional Health Concerns 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
--- OUTSIDE RECORDS SUMMARY | 2025-01-04 18:57 | XMS_ITS | Encounter Summary ---
Author Organization [employer] Address [address] [place] [address] Care Team Providers Care Gallery Or Museum Curator Name Role Phone Lauren Wiley MD Primary Care Provider + Encounter Details Date Type Department Care Team (Late st Contact Info) Description [address] [facility] - Main Lab [address] [facility] [place] [address] Lauren Wiley MD [address] [address] Essential (primary) hypertension; Chronic kidney [...] Procedure Name Priority Date/Time Associated Diagnosis Comments IRON AND TIBC Routine 10/02/2024 9:43 AM EDT Essential (primary) hypertension Chronic kidney disease, unspecified COMPLETE BLOOD COUNT Routine 10/02/2024 9:43 AM EDT Essential (primary) hypertension Chronic kidney disease, unspecified FERRITIN Routine 10/02/2024 9:43 AM EDT Essential (primary) hypertension Chronic kidney disease, unspecified CREATINE KINASE Routine 10/02/2024 9:43 AM EDT Essential (primary) hypertension Chronic kidney disease, unspecified COMPREHENSIVE METABOLIC PANEL Routine 10/02/2024 9:43 AM EDT Essential (primary) hypertension Chronic kidney disease, unspecified documented in this encounter Results * Ferritin (10/02/2024 9:43 AM EDT) Ferritin 350 26 - 388 ng/mL LAB CHEMISTRY METHOD 10/02/2024 12:16 PM EDT [facility] LAB Blood Venous blood specimen / Unknown Venipuncture / Unknown 10/02/2024 9:43 AM EDT 10/02/2024 11:08 AM EDT Lauren Wiley MD LAB BLOOD ORDERABLES Fin al Result Performing Organization Address [facility]/ZIP Co de Phone Number [facility] LAB [address] [place] [address], [place] [phone] * (ABNORMAL) Iron and TIBC (10/02/2024 9:43 AM EDT) Pathologist [facility] Iron 33(L) 50 - 160 mcg/dL LAB CHEMISTRY METHOD 10/02/2024 12:16 PM EDT [facility] TIBC 133(L) 250 - 450 mcg/dL LAB CHEMISTRY METHOD 10/02/2024 12:16 PM EDT [facility] Iron Saturation 25 20 - 50 % LAB CHEMISTRY METHOD 10/02/2024 12:16 PM EDT [facility] Blood Venous blood specimen / Unknown Venipuncture / Unknown 10/02/2024 9:43 AM EDT 10/02/2024 11:08 AM EDT Lauren Wiley MD LAB BLOOD ORDERABLES Fin al Result Performing Organization Address City/[facility]/ZIP Co de Phone Number [facility] LAB [address] [place] [address], [place] [phone] * (ABNORMAL) Complete blood count (10/02/2024 9:43 AM EDT) Pathologist [facility] WBC 4.6(L) 4.8 - 10.8 K/mcL LAB HEMETOLOGY METHOD 10/02/2024 11:59 AM [facility] LAB RBC 2.20(L) 4.50 - 5.50 M/mcL LAB HEMETOLOGY METHOD 10/02/2024 11:59 AM [facility] LAB Hemoglobin 7.1(L) 13.5 - 17.5 g/dL LAB HEMETOLOGY METHOD 10/02/2024 11:59 AM [facility] LAB Hematocrit 23.0(L) 42.0 - 54.0 % LAB HEMETOLOGY METHOD 10/02/2024 11:59 AM [facility] LAB MCV 105.5(H) 79.0 - 98.0 FL LAB HEMETOLOGY METHOD 10/02/2024 11:59 AM [facility] LAB MCH 32.6(H) 27.0 - 32.0 pcg LAB HEMETOLOGY METHOD 10/02/2024 11:59 AM [facility] LAB MCHC 30.9(L) 32.0 - 37.0 g/dL LAB HEMETOLOGY METHOD 10/02/2024 11:59 AM [facility] LAB RDW 15.1(H) 11.0 - 15.0 % LAB HEMETOLOGY METHOD 10/02/2024 11:59 AM [facility] LAB Platelets 216 130 - 400 K/mcL LAB HEMETOLOGY METHOD 10/02/2024 11:59 AM [facility] LAB MPV 9.9 7.0 - 11.0 FL LAB HEMETOLOGY METHOD 10/02/2024 11:59 AM [facility] LAB NRBC 0.0 <1.0 % LAB HEMETOLOGY METHOD 10/02/2024 11:59 AM [facility] LAB NRBC Absolute 0.00 <0.10 K/mcL LAB HEMETOLOGY METHOD 10/02/2024 11:59 AM [facility] LAB Blood Venous blood specimen / Unknown Venipuncture / Unknown 10/02/2024 9:43 AM EDT 10/02/2024 11:08 AM EDT Lauren Wiley MD LAB BLOOD ORDERABLES Fin al Result Performing Organization Address [facility] Co de Phone Number [facility] [address] [place] [address], [place] [phone] * (ABNORMAL) Creatine kinase (10/02/2024 9:43 AM EDT) Total CK 20(L) 22 - 269 unit/L LAB CHEMISTRY METHOD 10/02/2024 1:38 PM EDT [facility] Blood Venous blood specimen / Unknown Venipuncture / Unknown 10/02/2024 9:43 AM EDT 10/02/2024 11:08 AM EDT Lauren Wiley MD LAB BLOOD ORDERABLES Fin al Result Performing Organization Address [facility] de Phone Number [facility] [address] [place] [address], [place] [phone] * (ABNORMAL) Comprehensive metabolic panel (10/02/2024 9:43 AM EDT) Pathologist [facility] Sodium 145 133 - 145 mmol/L LAB CHEMISTRY METHOD 10/02/2024 1:38 PM EDT [facility] Potassium 4.6 3.5 - 5.5 mmol/L LAB CHEMISTRY METHOD 10/02/2024 1:38 PM EDT [facility] Chloride 114(H) 96 - 110 mmol/L LAB CHEMISTRY METHOD 10/02/2024 1:38 PM EDT [facility] CO2 28 21 - 32 mmol/L LAB CHEMISTRY METHOD 10/02/2024 1:38 PM EDT [facility] Anion Gap 3 3 - 11 LAB CHEMISTRY METHOD 10/02/2024 1:38 PM [facility] LAB Glucose 139(H) 70 - 100 mg/dL LAB CHEMISTRY METHOD 10/02/2024 1:38 PM [facility] LAB BUN 51(H) 5 - 25 mg/dL LAB CHEMISTRY METHOD 10/02/2024 1:38 PM [facility] LAB Creatinine 1.21 0.70 - 1.30 mg/dL LAB CHEMISTRY METHOD 10/02/2024 1:38 PM [facility] LAB eGFR 64 >=60 mL/min/1. 73m2 LAB CHEMISTRY METHOD 10/02/2024 1:38 PM [facility] LAB Comment:Calculation based on the Chronic Kidney Disease Epidemiology Collaboration (CKD-EPI) equation refit without adjustment for race. BUN/Creatinine Ratio 42.1 LAB CHEMISTRY METHOD 10/02/2024 1:38 PM [facility] LAB Calcium 8.4(L) 8.5 - 10.5 mg/dL LAB CHEMISTRY METHOD 10/02/2024 1:38 PM [facility] LAB AST (SGOT) 16 10 - 42 unit/L LAB CHEMISTRY METHOD 10/02/2024 1:38 PM [facility] LAB ALT (SGPT) 10 10 - 60 unit/L LAB CHEMISTRY METHOD 10/02/2024 1:38 PM [facility] LAB Alkaline Phosphatase 91 42 - 121 unit/L LAB CHEMISTRY METHOD 10/02/2024 1:38 PM [facility] Total Protein 5.9(L) 6.0 - 8.0 g/dL LAB CHEMISTRY METHOD 10/02/2024 1:38 PM [facility] Albumin 1.8(L) 3.2 - 5.0 g/dL LAB CHEMISTRY METHOD 10/02/2024 1:38 PM [facility] Total Bilirubin 0.4 0.0 - 1.4 mg/dL LAB CHEMISTRY METHOD 10/02/2024 1:38 PM [facility] LAB Blood Venous blood specimen / Unknown Venipuncture / Unknown 10/02/2024 9:43 AM EDT 10/02/2024 11:08 AM EDT us Lauren Wiley MD LAB BLOOD ORDERABLES Fin al Result [facility] ([facility] [address] [place] [address], documented in this encounter Visit Diagnoses Diagnosis Essential (primary) hypertension Unspecified essential hypertension Chronic kidney disease, unspecified documented in this encounter Additional Health Concerns 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
--- OUTSIDE RECORDS SUMMARY | 2025-01-04 18:57 | XMS_ITS | Encounter Summary ---
Author Organization [facility] Address [address] [place] [address] Care Team Providers Care Poultry Process Worker Name Role Phone Lauren Wiley MD Primary Care Provider + Encounter Details Date Type Department Care Team (Late st Contact Info) Description 09/27/2024 Lab Requisition [facility] - Main Lab [address] [facility] [place] [address] Lauren Wiley MD [address] [phone] Anemia, unspecified Social History Tobacco Use Types [...] documented as of this encounter Care Teams Poultry Process Worker Relationship Specialty Start Date End Date Lauren Wiley MD [address] [address] PCP - General Family Medicine 12/01/24 documented as of this encounter
--- OUTSIDE RECORDS SUMMARY | 2025-01-04 18:57 | XMS_ITS | Encounter Summary ---
Author Organization [employer] Address [address] [place] [address] Care Team Providers Care Manager Construction Name Role Phone Lauren Wiley MD Primary Care Provider + Encounter Details Date Type Department Care Team (Late st Contact Info) Description 10/10/2024 Lab Requisition [facility] - Main Lab [address] [place] [address] Lauren Wiley MD [address] [address] Essential (primary) hypertension; Chronic kidney [...] Associated Diagnosis Comments COMPLETE BLOOD COUNT Routine 10/10/2024 5:35 AM EDT Essential (primary) hypertension Chronic kidney disease, unspecified CREATINE KINASE Routine 10/10/2024 5:35 AM EDT Essential (primary) hypertension Chronic kidney disease, unspecified COMPREHENSIVE METABOLIC PANEL Routine 10/10/2024 5:35 AM EDT Essential (primary) hypertension Chronic kidney disease, unspecified documented in this encounter Results * (ABNORMAL) Complete blood count (10/10/2024 5:35 AM EDT) WBC 4.7(L) 4.8 - 10.8 K/mcL LAB HEMETOLOGY METHOD 10/10/2024 10:18 AM [facility] LAB RBC 2.30(L) 4.50 - 5.50 M/mcL LAB HEMETOLOGY METHOD 10/10/2024 10:18 AM [facility] LAB Hemoglobin 7.4(L) 13.5 - 17.5 g/dL LAB HEMETOLOGY METHOD 10/10/2024 10:18 AM [facility] LAB Hematocrit 24.1(L) 42.0 - 54.0 % LAB HEMETOLOGY METHOD 10/10/2024 10:18 AM [facility] LAB MCV 104.8(H) 79.0 - 98.0 FL LAB HEMETOLOGY METHOD 10/10/2024 10:18 AM [facility] LAB MCH 32.2(H) 27.0 - 32.0 pcg LAB HEMETOLOGY METHOD 10/10/2024 10:18 AM [facility] LAB MCHC 30.7(L) 32.0 - 37.0 g/dL LAB HEMETOLOGY METHOD 10/10/2024 10:18 AM [facility] LAB RDW 15.1(H) 11.0 - 15.0 % LAB HEMETOLOGY METHOD 10/10/2024 10:18 AM [facility] LAB Platelets 207 130 - 400 K/mcL LAB HEMETOLOGY METHOD 10/10/2024 10:18 AM [facility] LAB MPV 9.8 7.0 - 11.0 FL LAB HEMETOLOGY METHOD 10/10/2024 10:18 AM [facility] LAB NRBC 0.0 <1.0 % LAB HEMETOLOGY METHOD 10/10/2024 10:18 AM [facility] LAB NRBC Absolute 0.00 <0.10 K/mcL LAB HEMETOLOGY METHOD 10/10/2024 10:18 AM [facility] LAB Blood Venous blood specimen / Unknown Venipuncture / Unknown 10/10/2024 5:35 AM EDT 10/10/2024 9:50 AM EDT Lauren Wiley MD LAB BLOOD ORDERABLES Fin al Result [facility] LAB [address] [place] [address], [place] [phone] * Creatine kinase (10/10/2024 5:35 AM EDT) Pathologist [facility] Total CK 22 22 - 269 unit/L LAB CHEMISTRY METHOD 10/10/2024 11:02 AM EDT [facility] LAB Blood Venous blood specimen / Unknown Venipuncture / Unknown 10/10/2024 5:35 AM EDT 10/10/2024 9:50 AM EDT Lauren Wiley MD LAB BLOOD ORDERABLES Fin al Result Performing Organization Address City/[facility]/ZIP Co de Phone Number [facility] LAB [address] [place] [address], [place] [phone] * (ABNORMAL) Comprehensive metabolic panel (10/10/2024 5:35 AM EDT) [facility] Sodium 143 133 - 145 mmol/L LAB CHEMISTRY METHOD 10/10/2024 11:06 AM EDT [facility] LAB Potassium 4.0 3.5 - 5.5 mmol/L LAB CHEMISTRY METHOD 10/10/2024 11:06 AM EDT [facility] LAB Chloride 113(H) 96 - 110 mmol/L LAB CHEMISTRY METHOD 10/10/2024 11:06 AM EDT [facility] LAB CO2 27 21 - 32 mmol/L LAB CHEMISTRY METHOD 10/10/2024 11:06 AM EDT [facility] LAB Anion Gap 3 3 - 11 LAB CHEMISTRY METHOD 10/10/2024 11:06 AM EDT [facility] LAB Glucose 103(H) 70 - 100 mg/dL LAB CHEMISTRY METHOD 10/10/2024 11:06 AM [facility] LAB BUN 50(H) 5 - 25 mg/dL LAB CHEMISTRY METHOD 10/10/2024 11:06 AM [facility] LAB Creatinine 1.28 0.70 - 1.30 mg/dL LAB CHEMISTRY METHOD 10/10/2024 11:06 AM [facility] LAB eGFR 60 >=60 mL/min/1. 73m2 LAB CHEMISTRY METHOD 10/10/2024 11:06 AM [facility] LAB Comment:Calculation based on the Chronic Kidney Disease Epidemiology Collaboration (CKD-EPI) equation refit without adjustment for race. BUN/Creatinine Ratio 39.1 LAB CHEMISTRY METHOD 10/10/2024 11:06 AM [facility] LAB Calcium 8.3(L) 8.5 - 10.5 mg/dL LAB CHEMISTRY METHOD 10/10/2024 11:06 AM [facility] LAB AST (SGOT) 16 10 - 42 unit/L LAB CHEMISTRY METHOD 10/10/2024 11:06 AM [facility] LAB ALT (SGPT) 19 10 - 60 unit/L LAB CHEMISTRY METHOD 10/10/2024 11:06 AM [facility] LAB Alkaline Phosphatase 95 42 - 121 unit/L LAB CHEMISTRY METHOD 10/10/2024 11:06 AM [facility] LAB Total Protein 6.2 6.0 - 8.0 g/dL LAB CHEMISTRY METHOD 10/10/2024 11:06 AM [facility] LAB Albumin 1.9(L) 3.2 - 5.0 g/dL LAB CHEMISTRY METHOD 10/10/2024 11:06 AM [facility] LAB Total Bilirubin 0.4 0.0 - 1.4 mg/dL LAB CHEMISTRY METHOD 10/10/2024 11:06 AM [facility] LAB Blood Venous blood specimen / Unknown Venipuncture / Unknown 10/10/2024 5:35 AM EDT 10/10/2024 9:50 AM EDT Lauren Wiley MD LAB BLOOD ORDERABLES Fin al Result [facility] LAB [address] [place] [address], documented in this encounter Visit Diagnoses Diagnosis Essential (primary) hypertension Unspecified essential hypertension Chronic kidney disease, unspecified documented in this encounter Additional Health Concerns Infection Onset Date 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
--- OUTSIDE RECORDS SUMMARY | 2025-01-04 18:57 | XMS_ITS | Encounter Summary ---
Author Organization [employer] Address [address] [place] [address] Care Team Providers Care Podiatric Medicine Professor Name Role Phone Lauren Wiley MD Primary Care Provider + Encounter Details Date Type Department Care Team (Late st Contact Info) Description 10/13/[address] [facility] Lab [address] [place] [address] Lauren Wiley MD [address] [phone] Anemia, unspecified Social History Tobacco Use Types [...] Associated Diagnosis Comments COMPLETE BLOOD COUNT Routine 10/14/2024 5:24 AM EDT Anemia, unspecified BASIC METABOLIC PANEL Routine 10/14/2024 5:24 AM EDT Anemia, unspecified documented in this encounter Results * (ABNORMAL) Complete blood count (10/14/2024 5:24 AM EDT) WBC 4.1(L) 4.8 - 10.8 K/[facility] LAB HEMETOLOGY METHOD 10/14/2024 10:48 AM EDT [facility] LAB RBC 2.60(L) 4.50 - 5.50 M/[facility] LAB HEMETOLOGY METHOD 10/14/2024 10:48 AM EDT [facility] LAB Hemoglobin 8.2(L) 13.5 - 17.5 g/dL LAB HEMETOLOGY METHOD 10/14/2024 10:48 AM EDT [facility] LAB Hematocrit 26.5(L) 42.0 - 54.0 % LAB HEMETOLOGY METHOD 10/14/2024 10:48 AM [facility] LAB MCV 101.9(H) 79.0 - 98.0 FL LAB HEMETOLOGY METHOD 10/14/2024 10:48 AM EDT [facility] LAB MCH 31.5 27.0 - 32.0 pcg LAB HEMETOLOGY METHOD 10/14/2024 10:48 AM T [facility] LAB MCHC 30.9(L) 32.0 - 37.0 g/dL LAB HEMETOLOGY METHOD 10/14/2024 10:48 AM [facility] LAB RDW 14.8 11.0 - 15.0 % LAB HEMETOLOGY METHOD 10/14/2024 10:48 AM [facility] LAB Platelets 179 130 - 400 K/mcL LAB HEMETOLOGY METHOD 10/14/2024 10:48 AM T [facility] LAB MPV 9.6 7.0 - 11.0 FL LAB HEMETOLOGY METHOD 10/14/2024 10:48 AM [facility] LAB NRBC 0.0 <1.0 % LAB HEMETOLOGY METHOD 10/14/2024 10:48 AM T [facility] LAB NRBC Absolute 0.00 <0.10 K/mcL LAB HEMETOLOGY METHOD 10/14/2024 10:48 AM [facility] LAB Blood Venous blood specimen / Unknown Venipuncture / Unknown 10/14/2024 5:24 AM EDT 10/14/2024 10:02 AM EDT us Lauren Wiley MD LAB BLOOD ORDERABLES Fin al Result [facility] LAB [address] [place] [address], * (ABNORMAL) Basic metabolic panel (10/14/2024 5:24 AM EDT) Sodium 143 133 - 145 mmol/L LAB CHEMISTRY METHOD 10/14/2024 11:04 AM [facility] LAB Potassium 4.2 3.5 - 5.5 mmol/L LAB CHEMISTRY METHOD 10/14/2024 11:04 AM [facility] LAB Chloride 111(H) 96 - 110 mmol/L LAB CHEMISTRY METHOD 10/14/2024 11:04 AM [facility] LAB CO2 29 21 - 32 mmol/L LAB CHEMISTRY METHOD 10/14/2024 11:04 AM [facility] LAB Anion Gap 3 3 - 11 LAB CHEMISTRY METHOD 10/14/2024 11:04 AM [facility] LAB Glucose 91 70 - 100 mg/dL LAB CHEMISTRY METHOD 10/14/2024 11:04 AM [facility] LAB BUN 36(H) 5 - 25 mg/dL LAB CHEMISTRY METHOD 10/14/2024 11:04 AM [facility] LAB Creatinine 1.02 0.70 - 1.30 mg/dL LAB CHEMISTRY METHOD 10/14/2024 11:04 AM [facility] LAB eGFR 79 >=60 mL/min/1. 73m2 LAB CHEMISTRY METHOD 10/14/2024 11:04 AM [facility] LAB Comment:Calculation based on the Chronic Kidney Disease Epidemiology Collaboration (CKD-EPI) equation refit without adjustment for race. BUN/Creatinine Ratio 35.3 LAB CHEMISTRY METHOD 10/14/2024 11:04 AM [facility] LAB Calcium 8.6 8.5 - 10.5 mg/dL LAB CHEMISTRY METHOD 10/14/2024 11:04 AM [facility] LAB Blood Venous blood specimen / Unknown Venipuncture / Unknown 10/14/2024 5:24 AM EDT 10/14/2024 10:02 AM EDT Lauren Wiley MD LAB BLOOD ORDERABLES Fin al Result [facility] ([facility] LAB [address] [place] [address], documented in this encounter Visit Diagnoses Diagnosis Anemia, unspecified documented in this encounter Additional Health Concerns 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
--- OUTSIDE RECORDS SUMMARY | 2025-01-04 18:57 | XMS_ITS | Encounter Summary ---
Author Organization [employer] Address [address] [place] [address] Care Team Providers Care Senior Programmer Name Role Phone Lauren Wiley MD Primary Care Provider + Encounter Details Date Type Department Care Team (Late st Contact Info) Description 10/04/2024 Lab Requisition [facility] - Main Lab [address] [facility] [place] [address] Lauren Wiley MD [address] [address] Anemia, unspecified Social History Tobacco Use Types [...] Procedure Name Priority Date/Time Associated Diagnosis Comments VITAMIN B12 AND FOLATE Routine 10/05/2024 5:31 AM EDT Anemia, unspecified RETICULOCYTE COUNT Routine 10/05/2024 5: 31 AM EDT Anemia, unspecified COMPLETE BLOOD COUNT Routine 10/05/2024 5:31 AM EDT Anemia, unspecified THYROID STIMULATING HORMONE Routine 10/05/2024 5:31 AM EDT Anemia, unspecified BASIC METABOLIC PANEL Routine 10/05/2024 5:31 AM EDT Anemia, unspecified documented in this encounter Results * (ABNORMAL) Reticulocyte count (10/05/2024 5:31 AM EDT) Retic Ct Abs 0.060 0.030 - 0.090 M/mcL LAB HEMETOLOGY METHOD 10/05/2024 9:52 AM EDT [facility] LAB Retic Ct Pct 2.6(H) 0.7 - 1.7 % LAB HEMETOLOGY METHOD 10/05/2024 9:52 AM EDT [facility] LAB Immature Retic Fract 23.2(H) 2.3 - 15.9 % LAB HEMETOLOGY METHOD 10/05/2024 9:52 AM EDT [facility] LAB Reticulocyte Hemoglobin 33.0 >29.0 pcg LAB HEMETOLOGY METHOD 10/05/2024 9:52 AM EDT [facility] LAB Blood Venous blood specimen / Unknown Venipuncture / Unknown 10/05/2024 5:31 AM EDT 10/05/2024 9:31 AM EDT Lauren Wiley MD LAB BLOOD ORDERABLES Fin al Result Performing Organization Address City/[facility]/ZIP Co de Phone Number [facility] LAB [address] [place] [address], [place] [phone] * (ABNORMAL) Thyroid stimulating hormone (10/05/2024 5:31 AM EDT) TSH 5.07(H) 0.40 - 4.00 mcIU/mL LAB CHEMISTRY METHOD 10/05/2024 11:59 AM EDT [facility] LAB Blood Venous blood specimen / Unknown Venipuncture / Unknown 10/05/2024 5:31 AM EDT 10/05/2024 9:31 AM EDT Lauren Wiley MD LAB BLOOD ORDERABLES Fin al Result Performing Organization Address City/[facility]/ZIP Co de Phone Number [facility] [address] [place] [address], [place] [phone] * Vitamin B12 and folate (10/05/2024 5:31 AM EDT) [facility] Vitamin B-12 654 250 - 900 pcg/mL LAB CHEMISTRY METHOD 10/05/2024 11:24 AM [facility] LAB Folate 7.7 2.8 - 17.0 ng/ml LAB CHEMISTRY METHOD 10/05/2024 11:24 AM T [facility] LAB Blood Venous blood specimen / Unknown Venipuncture / Unknown 10/05/2024 5:31 AM EDT 10/05/2024 9:31 AM EDT us Lauren Wiley MD LAB BLOOD ORDERABLES Fin al Result [facility] LAB [address] [place] [address], * (ABNORMAL) Complete blood count (10/05/2024 5:31 AM EDT) [facility] WBC 5.1 4.8 - 10.8 K/mcL LAB HEMETOLOGY METHOD 10/05/2024 9:52 AM [facility] LAB RBC 2.40(L) 4.50 - 5.50 M/mcL LAB HEMETOLOGY METHOD 10/05/2024 9:52 AM [facility] LAB Hemoglobin 7.7(L) 13.5 - 17.5 g/dL LAB HEMETOLOGY METHOD 10/05/2024 9:52 AM T [facility] LAB Hematocrit 25.7(L) 42.0 - 54.0 % LAB HEMETOLOGY METHOD 10/05/2024 9:52 AM [facility] LAB MCV 105.8(H) 79.0 - 98.0 FL LAB HEMETOLOGY METHOD 10/05/2024 9:52 AM [facility] LAB MCH 31.7 27.0 - 32.0 pcg LAB HEMETOLOGY METHOD 10/05/2024 9:52 AM EDT [facility] LAB MCHC 30.0(L) 32.0 - 37.0 g/dL LAB HEMETOLOGY METHOD 10/05/2024 9:52 AM EDT [facility] LAB RDW 15.2(H) 11.0 - 15.0 % LAB HEMETOLOGY METHOD 10/05/2024 9:52 AM EDT [facility] LAB Platelets 216 130 - 400 K/mcL LAB HEMETOLOGY METHOD 10/05/2024 9:52 AM EDT [facility] LAB MPV 10.5 7.0 - 11.0 FL LAB HEMETOLOGY METHOD 10/05/2024 9:52 AM EDT [facility] LAB NRBC 0.0 <1.0 % LAB HEMETOLOGY METHOD 10/05/2024 9:52 AM EDT [facility] LAB NRBC Absolute 0.00 <0.10 K/mcL LAB HEMETOLOGY METHOD 10/05/2024 9:52 AM EDT [facility] LAB Blood Venous blood specimen / Unknown Venipuncture / Unknown 10/05/2024 5:31 AM EDT 10/05/2024 9:31 AM EDT us Lauren Wiley MD LAB BLOOD ORDERABLES Fin al Result [facility] [address] [place] [address], * (ABNORMAL) Basic metabolic panel (10/05/2024 5:31 AM EDT) Sodium 144 133 - 145 mmol/L LAB CHEMISTRY METHOD 10/05/2024 10:57 AM EDT [facility] Potassium 4.3 3.5 - 5.5 mmol/L LAB CHEMISTRY METHOD 10/05/2024 10:57 AM EDT [facility] Chloride 112(H) 96 - 110 mmol/L LAB CHEMISTRY METHOD 10/05/2024 10:57 AM [facility] LAB CO2 28 21 - 32 mmol/L LAB CHEMISTRY METHOD 10/05/2024 10:57 AM [facility] LAB Anion Gap 4 3 - 11 LAB CHEMISTRY METHOD 10/05/2024 10:57 AM [facility] LAB Glucose 109(H) 70 - 100 mg/dL LAB CHEMISTRY METHOD 10/05/2024 10:57 AM [facility] LAB BUN 48(H) 5 - 25 mg/dL LAB CHEMISTRY METHOD 10/05/2024 10:57 AM [facility] LAB Creatinine 1.22 0.70 - 1.30 mg/dL LAB CHEMISTRY METHOD 10/05/2024 10:57 AM [facility] LAB eGFR 64 >=60 mL/min/1. 73m2 LAB CHEMISTRY METHOD 10/05/2024 10:57 AM [facility] LAB Comment:Calculation based on the Chronic Kidney Disease Epidemiology Collaboration (CKD-EPI) equation refit without adjustment for race. 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
--- OUTSIDE RECORDS SUMMARY | 2025-01-04 18:57 | XMS_ITS | Encounter Summary ---
Author Organization [email or web address] Address [address] [place] [address] Care Team Providers Care Delivery Mgr Name Role Phone Lauren Wiley MD Primary Care Provider + Encounter Details Date Type Department Care Team (Late st Contact Info) Description 10/07/[address] [facility] - Main Lab 299 [facility] [place] [address] Lauren Wiley MD [address] [address] Essential (primary) hypertension; Chronic kidney disease, unspecified [...] documented as of this encounter Care Teams Delivery Mgr Relationship Specialty Start Date End Date Lauren Wiley MD [address] [phone] PCP - General Family Medicine 12/01/24 documented as of this encounter
--- OUTSIDE RECORDS SUMMARY | 2025-01-04 18:57 | XMS_ITS | Encounter Summary ---
Author Organization [employer] Address [address] [place] [address] Care Team Providers Care Stage Set Designer Name Role Phone Lauren Wiley MD Primary Care Provider + Encounter Details Date Type Department Care Team (Late st Contact Info) Description 09/28/2024 Lab Requisition [facility] - Main Lab [address] [place] [address] Lauren Wilye MD [address] [phone] Anemia, unspecified Social History Tobacco Use Types [...] Associated Diagnosis Comments COMPLETE BLOOD COUNT Routine 2024 7:16 AM EDT Anemia, unspecified BASIC METABOLIC PANEL Routine 2024 7:16 AM EDT Anemia, unspecified documented in this encounter Results * (ABNORMAL) Basic metabolic panel (2024 7:16 AM EDT) Sodium 145 133 - 145 mmol/L LAB CHEMISTRY METHOD 2024 9:41 AM [facility] Potassium 4.0 3.5 - 5.5 mmol/L LAB CHEMISTRY METHOD 2024 9:41 AM [facility] Chloride 114(H) 96 - 110 mmol/L LAB CHEMISTRY METHOD 2024 9:41 AM [facility] CO2 29 21 - 32 mmol/L LAB CHEMISTRY METHOD 2024 9:41 AM [facility] Anion Gap 2(L) 3 - 11 LAB CHEMISTRY METHOD 2024 9:41 AM [facility] Glucose 111(H) 70 - 100 mg/dL LAB CHEMISTRY METHOD 2024 9:41 AM [facility] BUN 39(H) 5 - 25 mg/dL LAB CHEMISTRY METHOD 2024 9:41 AM [facility] Creatinine 1.04 0.70 - 1.30 mg/dL LAB CHEMISTRY METHOD 2024 9:41 AM [facility] LAB eGFR 77 >=60 mL/min/1. 73m2 LAB CHEMISTRY METHOD 2024 9:41 AM [facility] LAB Comment:Calculation based on the Chronic Kidney Disease Epidemiology Collaboration (CKD-EPI) equation refit without adjustment for race. BUN/Creatinine Ratio 37.5 LAB CHEMISTRY METHOD 2024 9:41 AM [facility] LAB Calcium 8.9 8.5 - 10.5 mg/dL LAB CHEMISTRY METHOD 2024 9:41 AM [facility] Blood Venous blood specimen / Unknown Venipuncture / Unknown 2024 7:16 AM EDT 2024 8:23 AM EDT us Lauren Wiley MD LAB BLOOD ORDERABLES Fin al Result [facility] [address] [place] [address], * (ABNORMAL) Complete blood count (2024 7:16 AM EDT) WBC 6.9 4.8 - 10.8 K/[facility] LAB HEMETOLOGY METHOD 2024 9:56 AM [facility] RBC 2.60(L) 4.50 - 5.50 M/mcL LAB HEMETOLOGY METHOD 2024 9:56 AM [facility] LAB Hemoglobin 8.4(L) 13.5 - 17.5 g/dL LAB HEMETOLOGY METHOD 2024 9:56 AM [facility] LAB Hematocrit 27.0(L) 42.0 - 54.0 % LAB HEMETOLOGY METHOD 2024 9:56 AM [facility] LAB MCV 103.4(H) 79.0 - 98.0 FL LAB HEMETOLOGY METHOD 2024 9:56 AM [facility] LAB MCH 32.2(H) 27.0 - 32.0 pcg LAB HEMETOLOGY METHOD 2024 9:56 AM [facility] LAB MCHC 31.1(L) 32.0 - 37.0 g/dL LAB HEMETOLOGY METHOD 2024 9:56 AM [facility] LAB RDW 15.1(H) 11.0 - 15.0 % LAB HEMETOLOGY METHOD 2024 9:56 AM [facility] LAB Platelets 215 130 - 400 K/mcL LAB HEMETOLOGY METHOD 2024 9:56 AM [facility] LAB MPV 9.3 7.0 - 11.0 FL LAB HEMETOLOGY METHOD 2024 9:56 AM [facility] LAB NRBC 0.3 <1.0 % LAB HEMETOLOGY METHOD 2024 9:56 AM [facility] LAB NRBC Absolute 0.02 <0.10 K/mcL LAB HEMETOLOGY METHOD 2024 9:56 AM [facility] LAB Blood Venous blood specimen / Unknown Venipuncture / Unknown 2024 7:16 AM EDT 2024 8:23 AM EDT Lauren Wiley MD LAB BLOOD ORDERABLES Fin al Result [facility] ([facility]) [facility] [address] [place] [address], documented in this encounter Visit Diagnoses Diagnosis Anemia, unspecified documented in this encounter Additional Health Concerns 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
--- OUTSIDE RECORDS SUMMARY | 2025-01-04 18:57 | XMS_ITS | Encounter Summary ---
Author Organization [employer] Address [address] [place] [address] Care Team Providers Care Child Psychologist Name Role Phone Lauren Wiley MD Primary Care Provider + Encounter Details Date Type Department Care Team (Late st Contact Info) Description 10/12/2024 Lab Requisition [facility] - Main Lab 299 [facility] [place] [address] Lauren Wiley MD [address] [phone] Anemia, unspecified Social History Tobacco Use Types [...] documented as of this encounter Care Teams Child Psychologist Relationship Specialty Start Date End Date Lauren Wiley MD [address] [address] PCP - General Family Medicine 12/01/24 documented as of this encounter
--- OUTSIDE RECORDS SUMMARY | 2025-01-04 18:57 | XMS_ITS | Encounter Summary ---
Author Organization [facility] Address [address] [place] [address] Care Team Providers Care Domestic Violence Advocate Name Role Phone Lauren Wiley MD Primary Care Provider + Encounter Details Date Type Department Care Team (Late st Contact Info) Description 09/04/2024 Lab Requisition [facility] - Main Lab [address] [facility] [place] [address] Lauren Wiley MD [address] [phone] Essential (primary) hypertension Social History Tobacco Use [...] Associated Diagnosis Comments COMPLETE BLOOD COUNT Routine 09/05/2024 12:38 AM EDT Essential (primary) hypertension documented in this encounter Results * (ABNORMAL) Complete blood count (09/05/2024 12:38 AM EDT) WBC 5.8 4.8 - 10.8 K/mcL LAB HEMETOLOGY METHOD 09/05/2024 12:16 PM EDT [facility] RBC 2.00(L) 4.50 - 5.50 M/[facility] LAB HEMETOLOGY METHOD 09/05/2024 12:16 PM EDT [facility] Hemoglobin 6.7(L) 13.5 - 17.5 g/dL LAB HEMETOLOGY METHOD 09/05/2024 12:16 PM EDT [facility] Hematocrit 21.5(L) 42.0 - 54.0 % LAB HEMETOLOGY METHOD 09/05/2024 12:16 PM EDT [facility] MCV 105.9(H) 79.0 - 98.0 FL LAB HEMETOLOGY METHOD 09/05/2024 12:16 PM EDT [facility] MCH 31.5 27.0 - 32.0 pcg LAB HEMETOLOGY METHOD 09/05/2024 12:16 PM EDT [facility] MCHC 29.8(L) 32.0 - 37.0 g/dL LAB [facility]EMETOLOGY [facility] RDW 16.9(H) 11.0 - 15.0 % LAB HEMETOLOGY METHOD 09/05/2024 12:16 PM EDT [facility] Platelets 239 130 - 400 K/mcL LAB HEMETOLOGY METHOD 09/05/2024 12:16 PM EDT [facility] MPV 9.6 7.0 - 11.0 FL LAB HEMETOLOGY METHOD 09[facility]05[facility]24 [facility] NRBC 0.0 <1.0 % LAB HEMETOLOGY METHOD 09/05/2024 12:16 PM EDT [facility] NRBC Absolute 0.00 <0.10 K/mcL LAB HEMETOLOGY METHOD 09/05/2024 12:16 PM T [facility] Blood Venous blood specimen / Unknown 09/05/2024 12:38 AM EDT 09/05/2024 12:03 PM EDT us Lauren Wiley MD LAB BLOOD ORDERABLES Fin al Result [facility] [address] [place] [address], documented in this encounter Visit Diagnoses Diagnosis Essential (primary) hypertension Unspecified essential hypertension documented in this encounter Additional Health Concerns 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
--- OUTSIDE RECORDS SUMMARY | 2025-01-04 18:57 | XMS_ITS | Patient Health Record ---
Author Organization [facility] Address [address] 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 Name Role Phone Elder Lauren MARTINEZ Primary Care Provider Jean Paul Flowers Unavailable [phone] Allergies Allergen (clinical drug ingredient) Drug/Non Drug Allergy documented on EMR Reaction Allergy Type Onset Date Status No Known Drug Allergy Unknown Drug Allergy Active No Known Food Allergy Unknown Drug Allergy Active Reason For Referral No Information Medications Medication SIG (Take, Route, Frequency, Duration) Notes Start Date End Date Status Acetaminophen 325 MG 1 tablet as needed Orally every 6 hrs Unknown Xarelto 20 MG 1 tablet with food Orally Once a day Unknown Ferrous Sulfate 325 (65 Fe) MG 1 tablet Orally Three times a Week Unknown Gabapentin 300 MG 1 capsule Orally Onc e a day Unknown Keppra 100 MG/ML 2.5 mL Orally every 12 hrs Unknown Lidocaine 5 % 1 patch remove after 12 hours Externally Once a day Unknown Losartan Potassium 100 MG 1 tablet Orall y Once a day Unknown Metamucil 3 in 1 [...] % Every evening Tues, Thurs, Sat Unknown Tamsulosin HCl 0.4 MG 1 capsule Orally O nce a day Unknown amLODIPine Besylate 5 MG 1 tablet Orally Once a day Unknown Atorvastatin Calcium 80 MG 1 tablet Oral ly Once a day Unknown Social History Tobacco [...] Status W/U Status Risk Notes Problem Anemia (756909158) Anemia, unspecified (D64.9) Active confirmed Problem Hyperlipidemia (36364585) Hyperlipidemia, unspecified (E78.5) Active confirmed Problem Epilepsy (40118165) Epilepsy, unspecified, not intractable, without status epilepticus (G40.909) Active confirmed Problem Insomnia (376482726) Insomnia, unspecified (G47.00) Active confirmed Problem Chronic pain (89484329) Other chronic pain (G89.29) Active confirmed Problem Essential hypertension (84648997) Essential (primary) hypertension (I10) Active confirmed Problem Paroxysmal atrial fibrillation (661321956) Paroxysmal atrial fibrillation (I48.0) Active confirmed Problem Sequelae of cerebral infarction (000577391) Unspecified sequelae of cerebral infarction (I69.30) Active confirmed Problem 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 Problem 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 (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 Problem Hemiplegia of dominant side as late effect of cerebrovascular disease (489863576) Hemiplegia and hemiparesis following cerebral infarction affecting right dominant side (I69.351) Active confirmed Problem Dysphagia as a late effect of cerebrovascular accident (271925976) 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) Active confirmed Problem Constipation (88766166) Constipation, unspecified (K59.00) Active confirmed Problem 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 (disorder) (39039714051304) Pressure ulcer of sacral region, stage 4 (L89.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) Active confirmed Problem Pressure ulcer o f unspecified buttock, stage 4 (L89.304) Active confirmed Problem Contracture of joint of right ankle (disorder) (884029433418564) Contracture, right ankle (M24.571) Active confirmed Problem Contracture of joint of left ankle (disorder) (077037831637331) Contracture, left ankle (M24.572) Active confirmed Problem Osteomyelitis of vertebra (312436027) Osteomyelitis of vertebra, sacral and sacrococcygeal region (M46.28) Active confirmed Problem Urinary tract obstruction (2330437) Obstructive and reflux uropathy, unspecified (N13.9) Active confirmed Problem Oral phase dysphagia (367164322) Dysphagia, oral phase (R13.11) Active confirmed Problem Oropharyngeal dysphagia (54360168) Dysphagia, oropharyngeal phase (R13.12) Active confirmed Problem Abnormal gait (63674703) Other abnormalities of gait and mobility (R26.89) Active confirmed Problem Lack of coordination (930092055) Unspecified lack of coordination (R27.9) Active confirmed Problem Adult failure to thrive syndrome (181230764) Adult failure to thrive (R62.7) Active confirmed Problem Abrasion, right hip, subsequent encounter (S70.211D) Active confirmed Problem 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) Active confirmed Problem Mononeuropathy of lower limb (971348934) 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) Active confirmed Problem Lower urinary tract symptoms due to benign prostatic hypertrophy (02385703037813) Benign prostatic hyperplasia with lower urinary tract symptoms (N40.1) Active confirmed Problem Longstanding persistent atrial fibrillation (265671372) Longstanding persistent atrial fibrillation (I48.11) Active confirmed Problem Peripheral vascular disease (786635226) Peripheral vascular disease (I73.9) Active confirmed Problem Benign prostatic hypertrophy without outflow obstruction (229257305) Benign nodular prostatic hyperplasia without lower urinary tract symptoms (N40.0) Active confirmed Encounters Encounter Location Date Provider Diagnosis [facility] [address] [place] [address] 01/06/2024 Jean Paul Waien Pressure ulcer of [...] Other abnormalities of gait and mobility R26.[address] [place] [address] 01/13/2024 Jean Paul Waien Pressure ulcer of [...] Other abnormalities of gait and mobility R26.[address] [address] 02/24/2024 Jean Paul Waien Pressure ulcer of [...] Other abnormalities of gait and mobility R26.[address] [address] 03/02/2024 Jean Paul Waien Pressure ulcer of [...] Other abnormalities of gait and mobility R26.[address] [address] 03/16/2024 Jean Paul Waien Pressure ulcer of [...] Other abnormalities of gait and mobility R26.[address] [address] 03/23/2024 Jean Paul Waien Pressure ulcer of [...] Other abnormalities of gait and mobility R26.[address] [address] 03/30/2024 Jean Paul Waien Pressure ulcer of [...] Other abnormalities of gait and mobility R26.[address] [address] 04/12/2024 Jean Paul Waien Pressure ulcer of [...] Other abnormalities of gait and mobility R26.[address] 05/04/2024 Jean Paul Waien Pressure ulcer of [...] Other abnormalities of gait and mobility R26.[address] 05/11/2024 Jean Paul Waien Pressure ulcer [...] R26.89 and Abrasion of hip, right S70.211A [address] 05/18/2024 Jean Paul Waien Pressure ulcer [...] R26.89 and Abrasion of hip, right S70.211A [address] 05/25/2024 Jean Paul Waien Pressure ulcer [...] mobility R26.89 and Abrasion of hip, right S70.211 [facility] [address] 06/01/2024 Jean Paul Waien Pressure ulcer [...] R26.89 and Abrasion of hip, right S70. [address] 06/08/2024 Jean Paul Waien Pressure ulcer [...] R26.89 and Abrasion of hip, right S70. [address] 06/15/2024 Jean Paul Waien Pressure ulcer [...] R26.89 and Abrasion of hip, right S70.211A [address] 06/22/2024 Jean Paul Waien Pressure ulcer [...] R26.89 and Abrasion of hip, right S70.211A [address] 07/20/2024 Jean Paul Waien Pressure ulcer [...] R26.89 and Abrasion of hip, right S70.211A [address] 07/27/2024 Jean Paul Waien Pressure ulcer [...] R26.89 and Abrasion of hip, right S70.211A [address] 08/03/2024 Jean Paul Waien Pressure ulcer [...] R26.89 and Abrasion of hip, right S70.211A [address] 08/10/2024 Jean Paul Waien Pressure ulcer [...] R26.89 and Abrasion of hip, right S70.211A [address] 08/24/2024 Jean Paul Waien Pressure ulcer of sacral [...] R26.89 and Abrasion of hip, right S70.211A [address] 09/28/2024 Jean Paul Waien Pressure ulcer of sacral [...] R26.89 and Abrasion of hip, right S70.211A [address] 10/12/2024 Jean Paul Waien Pressure ulcer of sacral [...] R26.89 and Abrasion of hip, right S70.211A [address] 10/19/2024 Jean Paul Waien Pressure ulcer of sacral [...] R26.89 and Abrasion of hip, right S70.211A [facility] [address] 11/02/2024 Jean Paul Waien Pressure ulcer of sacral [...] R26.89 and Abrasion of hip, right S70.211A [address] 11/09/2024 Jean Paul Waien Pressure ulcer of sacral [...] R26.89 and Abrasion of hip, right S70.211A [facility] [address] 11/16/2024 Jean Paul Waien Pressure ulcer of sacral [...] Treatment Notes Treatment Clinical Notes Section Notes 01/06/2024 Pressure ulcer of sacral region, stage 4 (ICD-10 - L89.154) [facility]. Nursing staff report [...] Today I saw after Wyatt at the [facility] for his follow-up appointment. Nursing staff have [...] L89.154) Today I saw Wyatt at the [facility] for his follow-up appointment. I last saw [...] L89.154) Today I saw Wyatt at the [facility] for his follow-up appointments. Nursing staff report [...] L89.154) Today I saw Wyatt at the [facility] for his follow-up appointment. Staff have been [...] L89.154) Today I saw Wyatt at the [facility] for his follow-up appointment. Staff have been [...] L89.154) Today I saw Kolby at the [facility] for his follow-up appointment. Nursing staff report [...] L89.154) Today I saw Wyatt at the [facility] for his follow-up appointment. Nursing staff report [...] L89.154) Today I saw Wyatt at the [facility] for his follow-up appointment. I last saw him 2 weeks ago. Since that time he has been hospitalized with a UTI. [facility]. On exam today he continues to have [...] L89.154) Today I saw Wyatt at the [facility] for his follow-up appointment. Nursing staff of [...] L89.154) Today I saw Wyatt at the [facility] for his follow-up appointment. Staff report that [...] L89.154) Today I saw Wyatt at the [facility] for his follow-up appointment. Nursing staff continue [...] 4 (ICD-10 - L89.154) Today I saw you Wyatt at the [facility] for his follow-up appointment. Staff have been [...] 4 (ICD-10 - L89.154) Today I saw you Wyatt at the [facility] for his follow-up appointment. Staff have been [...] sacral region, stage 4 (ICD-10 - L89.154) 09/28/2024 Pressure ulcer of sacral region, stage 4 (ICD-10 - L89.154) 10/12/2024 Pressure ulcer of sacral region, stage 4 (ICD-10 - L89.154) 10/19/2024 Pressure ulcer of sacral region, stage 4 (ICD-10 - L89.154) 11/02/2024 Pressure ulcer of sacral region, stage 4 (ICD-10 - L89.154) 11/09/2024 Pressure ulcer of sacral region, stage 4 (ICD-10 - L89.154) 11/16/2024 Pressure ulcer of sacral region, stage 4 (ICD-10 - L89.154) 11/09/2024 Abrasion, right hip, subsequent encounter (ICD-10 - S70.211D) 11/16/2024 Abrasion, right hip, subsequent encounter (ICD-10 - S70.211D) 11/02/2024 Abrasion, right hip, subsequent encounter (ICD-10 - S70.211D) 10/12/2024 Abrasion, right hip, subsequent encounter (ICD-10 - S70.211D) 10/19/2024 Abrasion, right hip, subsequent encounter (ICD-10 - S70.211D) 09/28/2024 Abrasion, right hip, subsequent encounter (ICD-10 - S70.211D) 08/24/2024 Abrasion, right hip, subsequent encounter (ICD-10 [...] without status epilepticus (ICD-10 - G40.909) 01/06/2024 Essential (primary) hypertension (ICD-10 - I10) [...] intractable, without status epilepticus (ICD-10 - G40.909) 09/28/2024 Epilepsy, unspecified, not intractable, without status epilepticus (ICD-10 - G40.909) 10/19/2024 Epilepsy, unspecified, not intractable, without status epilepticus (ICD-10 - G40.909) 10/12/2024 Epilepsy, unspecified, not intractable, without status epilepticus (ICD-10 - G40.909) 11/02/2024 Epilepsy, unspecified, not intractable, without status epilepticus (ICD-10 - G40.909) 11/16/2024 Epilepsy, unspecified, not intractable, without status epilepticus (ICD-10 - G40.909) 11/09/2024 Epilepsy, unspecified, not intractable, without status epilepticus (ICD-10 - G40.909) 11/09/2024 Essential (primary) hypertension (ICD-10 - I10) 11/16/2024 Essential (primary) hypertension (ICD-10 - I10) 11/02/2024 Essential (primary) hypertension (ICD-10 - I10) 10/12/2024 Essential (primary) hypertension (ICD-10 - I10) 10/19/2024 Essential (primary) hypertension (ICD-10 - I10) 09/28/2024 Essential (primary) hypertension (ICD-10 - I10) 08/24/2024 Essential (primary) hypertension (ICD-10 - I10) [...] 01/06/2024 Paroxysmal atrial fibrillation (ICD-10 - I48.0) 01/06/2024 Aphasia following cerebral infarction (ICD-10 - [...] 08/24/2024 Paroxysmal atrial fibrillation (ICD-10 - I48.0) 09/28/2024 Paroxysmal atrial fibrillation (ICD-10 - I48.0) 10/19/2024 Paroxysmal atrial fibrillation (ICD-10 - I48.0) 10/12/2024 Paroxysmal atrial fibrillation (ICD-10 - I48.0) 11/02/2024 Paroxysmal atrial fibrillation (ICD-10 - I48.0) 11/16/2024 Paroxysmal atrial fibrillation (ICD-10 - I48.0) 11/09/2024 Paroxysmal atrial fibrillation (ICD-10 - I48.0) 11/09/2024 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) 11/16/2024 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) 11/02/2024 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) 10/12/2024 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) 10/19/2024 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) 09/28/2024 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) 08/24/2024 Aphasia following cerebral infarction (ICD-10 - [...] right dominant side (ICD-10 - I69.351) 01/06/2024 Adult failure to thrive (ICD-10 - [...] affecting right dominant side (ICD-10 - I69.351) 09/28/2024 Hemiplegia and hemiparesis following cerebral infarction affecting right dominant side (ICD-10 - I69.351) 10/19/2024 Hemiplegia and hemiparesis following cerebral infarction affecting right dominant side (ICD-10 - I69.351) 10/12/2024 Hemiplegia and hemiparesis following cerebral infarction affecting right dominant side (ICD-10 - I69.351) 11/02/2024 Hemiplegia and hemiparesis following cerebral infarction affecting right dominant side (ICD-10 - I69.351) 11/16/2024 Hemiplegia and hemiparesis following cerebral infarction affecting right dominant side (ICD-10 - I69.351) 11/09/2024 Hemiplegia and hemiparesis following cerebral infarction affecting right dominant side (ICD-10 - I69.351) 11/02/2024 Adult failure to thrive (ICD-10 - R62.7) 11/09/2024 Adult failure to thrive (ICD-10 - R62.7) 11/16/2024 Adult failure to thrive (ICD-10 - R62.7) 10/12/2024 Adult failure to thrive (ICD-10 - R62.7) 10/19/2024 Adult failure to thrive (ICD-10 - R62.7) 08/24/2024 Adult failure to thrive (ICD-10 - R62.7) 09/28/2024 Adult failure to thrive (ICD-10 - R62.7) 08/03/2024 Adult failure to thrive (ICD-10 - [...] 01/06/2024 Peripheral vascular disease (ICD-10 - I73.9) 01/06/2024 Other abnormalities of gait and mobility [...] gait and mobility (ICD-10 - R26.89) 08/10/2024 Peripheral vascular disease (ICD-10 - I73.9) 08/24/2024 Peripheral vascular disease (ICD-10 - I73.9) 08/03/2024 Peripheral vascular disease (ICD-10 - I73.9) 07/27/2024 Peripheral vascular disease (ICD-10 - I73.9) 09/28/2024 Peripheral vascular disease (ICD-10 - I73.9) 10/19/2024 Peripheral vascular disease (ICD-10 - I73.9) 10/12/2024 Peripheral vascular disease (ICD-10 - I73.9) 11/02/2024 Peripheral vascular disease (ICD-10 - I73.9) 11/16/2024 Peripheral vascular disease (ICD-10 - I73.9) 11/09/2024 Peripheral vascular disease (ICD-10 - I73.9) 11/16/2024 Other abnormalities of gait and mobility (ICD-10 - R26.89) 11/09/2024 Other abnormalities of gait and mobility (ICD-10 - R26.89) 11/02/2024 Other abnormalities of gait and mobility (ICD-10 - R26.89) 10/19/2024 Other abnormalities of gait and mobility (ICD-10 - R26.89) 10/12/2024 Other abnormalities of gait and mobility (ICD-10 - R26.89) 09/28/2024 Other abnormalities of gait and mobility (ICD-10 - R26.89) 08/03/2024 Other abnormalities of gait and mobility [...] Abrasion of hip, right (ICD-10 - S70.211A) 09/28/2024 Abrasion of hip, right (ICD-10 - S70.211A) 10/12/2024 Abrasion of hip, right (ICD-10 - S70.211A) 10/19/2024 Abrasion of hip, right (ICD-10 - S70.211A) 11/02/2024 Abrasion of hip, right (ICD-10 - S70.211A) 11/09/2024 Abrasion of hip, right (ICD-10 - S70.211A) 11/16/2024 Abrasion of hip, right (ICD-10 - S70.211A) 03/23/2024 Other 06/15/2024 Other [facility] appointment. Nursing staff have [...] Other Today I saw Wyatt at the [facility] for his follow-up appointment. Staff have been [...] Today I saw nanci Copeland at the [facility] for his follow-up appointment. I last saw in 3 weeks ago. During this time period he was hospitalized with sepsis related to urinary tract infection. [facility]. On exam today he is reported to [...] Other Today I saw Wyatt at the [facility] for his follow-up appointment. Nursing staff report [...] Other Today I saw Wyatt at the [facility] for his follow-up appointment. Nursing staff have [...] Other Today I saw Wyatt at the [facility] for his follow-up appointment. Nursing staff report [...] Other Today I saw Wyatt at the [facility] for his follow-up appointment. I last saw [...] will follow-up with him in 2 weeks. 09/28/2024 Other Today I saw Wyatt at the [facility] for his follow-up appointment. Nursing staff have been performing his wound VAC changes as well as his dressing changes. They have been making efforts to offload and reposition him frequently. They report no new issues related to his wound sites. On exam today he was reported to be afebrile, we then removed the dressings and the wound VAC. I then examined the wound sites. Although there is evidence of good granulation tissue present at the base of both wound sites there is evidence of devitalized tissue covering the bases. There was no necrotic tissue, no evidence of any foul odor and I did not appreciate any underlying infective process involving either of the wound sites. After examining the wounds I performed debridement of them as outlined. He tolerated the procedures. We will apply Dermacol to the wound on his coccyx and we applied a wound VAC to his wound on his right hip. Nursing staff will be performing his dressing changes and wound VAC changes regularly. They will also offload and reposition him frequently. I will follow-up with him in 2 weeks. 10/12/2024 Other Today I saw Wyatt at the [facility] for his follow-up appointment; nursing staff report that he is tolerating the wound VAC which has been applied to the wound on his right hip. They report no new issues related to the wound sites. On exam nursing staff report that he has been afebrile, we then removed the dressings and the wound VAC and examined the wound areas. He continues to have 2 open areas; one on the sacrum and one on the right hip. The wound on his right hip has undermining as outlined. There is evidence of devitalized tissue covering the base of both wound sites. There was a rim of fibrous tissue along the edges of the wound on his sacrum. After examining both of these areas I performed debridement of them as outlined. He tolerated procedures. I recommended that we continue with the wound VAC for the wound on his right hip and to apply Hydrofera Blue to the wound on his sacrum. Staff will perform regular wound VAC and dressing changes. The will also perform additional changes as necessary. They will continue to make efforts to offload and reposition him frequently I will follow-up with him next week. 10/19/2024 Other Today I saw Wyatt at the [facility] for his follow-up appointment. Staff have been performing his dressing changes regularly including a wound VAC changes. The report no new issues related to the wound sites. On exam he continues to have 2 open areas; one on his coccyx and the other on his right hip. Both wound sites are stable with evidence of good granulation tissue along the bases. There is also undermining involving both wound sites as outlined. After examining both areas I performed debridement of them as outlined to remove the devitalized tissue that was present. He tolerated the procedures. I then recommended the application of hydrofera blue onto he wound on his coccyx and the wound VAC to be wound on his right hip. He will continue to have dressing change performed regularly and additional changes as necessary. I will follow-up with him in 2 weeks. 11/02/2024 Other Today I [facility]att [facility] for his [facility]-up appointment. I last saw him 2 weeks ago. Nursing staff have been performing his dressing changes as well as wound VAC changes regularly. They report no new issues related to the wound site. On exam he is noted to be afebrile, we then removed the dressings and the wound VAC and I examined the wound sites. Overall the wounds are stable however he continues to have undermining involving the wound on his right hip. There is granulation tissue along the base of both wound sites. There is also evidence of devitalized tissue covering the base of both wound sites which I debrided as outlined. He tolerated the procedures. I recommended that we continue with the application of Hydrofera Blue to the wound on his coccyx along with zinc the periwound area. We then applied the wound VAC to the wound on his right hip. Staff will perform regular wound VAC and dressing changes. Additional changes will be performed as necessary. Staff have been assisting him with nutritional support as necessary. I will follow-up with him next week. 11/09/2024 Other Today I [facility]att [facility] for his [facility]up appointment. Nursing staff report no new issues related to the wound sites. On exam he continues to have 2 open areas; one on the sacrum and one his right hip. Both of these wound sites have undermining as outlined. There was devitalized tissue along the base of areas which I debrided as outlined. He tolerated the procedure well. We will continue to use the wound VAC which iwas applied to the wound on his right hip and will continue to apply Hydrofera Blue to the wound on his sacrum. The site was then covered with a dry dressing. Staff who perform this wound VAC and dressing changes regularly and manitor the areas. Staff will also make efforts to the sites offload sites. I will follow-up with him next week. 11/16/2024 Other Today I [facility]att [facility] the [facility] for his [facility]-up appointment. Nursing staff report no new issues related to his wound site. However he continues to have frequent bowel movements which continues to require frequent dressing changes to the wound site on his coccyx. On exam today he is reported to be afebrile, we then removed the dressings and I examined the wound on his sacrum as well as the right hip. Both sites show evidence of undermining as outlined. There is good granulation tissue present but there is evidence of devitalized tissue covering the base of both wounds. After examining these areas I performed debridement of them as outlined. He tolerated the procedures. We will apply Hydrofera Blue to the wound on his sacrum and the wound VAC was reapplied to the wound on his right hip. He will continue to have regular wound VAC and dressing changes performed. In addition additional changes will be performed as necessary. Staff will also continue to make efforts to offload him frequently. He will be followed next week by another provider. Plan Of Treatment No Information Insurance Providers Payer Name Payer Address Payer Phone Subscriber Number Group Number Insured Name Patient Relationship to Insured Coverage Start Date Coverage End Date [facility] [address] [place] [id number] Wyatt Castillo Self - patient is the [...]
[2025-01-04 21:32] LABS: INTERNATIONAL NORM RATIO 1.6 (0.9-1.1); Prothrombin Time 19.8 SEC (11.2-13.5)
[2025-01-04 22:21] VITALS: BP 119/61; PULSE 92; RESP 16; TEMP 36.8; O2SAT 79
[2025-01-04 23:20] VITALS: BP 134/85; PULSE 99; RESP 18; O2SAT 99
[2025-01-05] VITALS (7 sets, daily range): BP systolic 118–139; BP diastolic 70–84; PULSE 88–103; RESP 11–18; TEMP 36.2–36.8; O2SAT 97–99; BMI 23.8
--- NOTE | 2025-01-05 00:30 | PM.IMHP ---
History of Present Illness Date of Service: 01/04/25 Attending physician on admission: Elizabeth Del Rio Chief Complaint: ?nephrostomy tube displaced Patient is a 69-year-old male with a past medical history significant for history CVA with right-sided deficits, chronic UTIs, suprapubic tube, nephrostomy tube, stage IV decubitus ulcer, paroxysmal AFib on Xarelto, seizure disorder, history of C diff and hypertension, who [facility] due to possible right nephrostomy tube dislodgement. Patient is nonverbal and unable to provide history. He is currently on Xarelto for AFib, last dose this morning. Review of Systems Review of Systems: Yes Unobtainable due to mental condition and Unobtainable due to mental status PMFSH Medical History Multiple renal calculi 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 Mother No problems noted. Surgical History History of insertion of nephrostomy tube No pertinent past surgical history Social History Household Members: None Household Members Other:: SNF Housing: Senior Living Housing Other:: rehab Are you a primary youth care worker to a significant other at home: No Do you presently have visiting nurse or other home services: No Alcohol intake: former Comment: patient sleeping Patient Tobacco Use Status: Tobacco use Unknown Smoked in Last 30 Days: No Second Hand Smoke Exposure: No Use of substances other than those prescribed or required for medical reasons: No Advance Directives: Yes Advance Directives on File: Yes Advance Directives Date on File: 02/14/20 Do you have a plan to hurt others: No Plan service: No Current occupational status: disabled Meds Allergies Allergy/AdvReac Type Severity Reaction Status Date / Time No Known Allergies (No Known Allergy Verified 01/04/25 16:31 Allergies*) Active Medications: Current Medications Acetaminophen (Acetaminophen 325 Mg Tablet) 975 mg PO Q6H PRN PRN Reason: Pain, Mild 1-3,fever,headache Calcium Carbonate (Calcium Carbonate 750 Mg Tab.Chew) 750 mg PO Q4H PRN PRN Reason: Heartburn Gabapentin (Gabapentin 300 Mg Capsule) 300 mg PO BEDTIME KEE Sodium Chloride (Ns) 1,000 mls @ 100 mls/hr IVCONT .Q10H KEE Last Admin: 01/04/25 20:55 Dose: 100 mls/hr Levetiracetam (Levetiracetam Oral Soln 500 Mg/5 Ml) 250 mg PO BID KEE Magnesium Hydroxide (Milk Of Magnesia 30 Ml Oral.Susp) 30 ml PO DAILY PRN PRN Reason: Constipation Melatonin (Melatonin 3 Mg Tablet) 6 mg PO BEDTIME PRN PRN Reason: Insomnia Ondansetron HCl (Ondansetron Hcl 4 Mg/2 Ml Vial) 4 mg IVPUSH Q8H PRN PRN Reason: Nausea and Vomiting Sodium Chloride (0.9 % Sodium Chloride Flush 3 Ml Syringe) 3 ml IVFLUSH QSHIFT [facility] Home Medications ?Medication ?Instructions ?Recorded ?Confirmed ?Last Taken ?Type acetaminophen 325 mg tablet 650 mg PO Q4H PRN fever/pain 02/16/21 10/22/24 Unknown History calcium 600 mg (as 1 tab PO BID 02/16/21 10/22/24 02/14/22 History carbonate)-vitamin D3 5 mcg (200 unit) tablet magnesium hydroxide 400 mg/5 mL 30 ml PO DAILY PRN No BM in 3 Days 02/16/21 10/22/24 Unknown History oral suspension (Milk of Magnesia) levetiracetam 100 mg/mL oral 2.5 ml PO BID 02/26/21 10/22/24 02/14/22 History solution atorvastatin 80 mg tablet 80 mg PO DAILY 01/26/22 10/22/2422 History magnesium citrate 150 ml PO DAILY PRN No BM in 12 hrs 02/15/22 10/22/24 Unknown History sodium phosphates 19 gram-7 118 ml MD DAILY PRN If no BM in 8 02/15/22 10/22/24 Unknown History gram/118 mL enema (Fleet Enema) hours after use of Bisacodyl acetaminophen 325 mg tablet 650 mg PO BEDTIME 10/03/22 10/22/24 Unknown History (Tylenol) acetic acid 0.25 % irrigation 50 ml irrigation [id number]@2100 10/03/22 10/22/24 Unknown History solution ferrous sulfate 325 mg (65 mg 325 mg PO DAILY 12/22/22 10/22/24 Unknown History iron) tablet multivitamin 1 tab PO DAILY 01/18/24 10/22/24 Unknown History psyllium 1 ea PO BEDTIME 01/18/24 10/22/24 Unknown History simethicone 80 mg chewable tablet 80 mg PO Q6H PRN Abdominal 04/19/24 10/22/24 Unknown History Distention oxycodone 5 mg tablet 5 mg PO BID 06/29/24 10/22/24 Unknown History potassium chloride 20 mEq/15 mL 40 meq PO DAILY 10/22/24 10/22/24 Unknown History oral liquid vancomycin 125 mg capsule 125 mg PO Q6H 10/22/24 10/22/24 Unknown History Physical Exam Vital Signs and Narrative: Vital Signs: Last Vital Signs Temp 98.3 F 01/04/25 22:21 Pulse 99 01/04/25 23:20 Resp 18 01/04/25 23:20 BP 134/85 01/04/25 23:20 Pulse Ox 99 01/04/25 23:20 O2 Del Method Room Air 01/04/25 23:20 BMI result Body Mass Index 23.0 General: Alert not oriented, no acute distress Resp: CTA bilaterally CVS: S1, S2, RRR GI/: +BS, NT, no distention. suprapubic tube draining. nephrostomy tube without drainage. see photo Skin: Warm, dry Neuro: Cranial nerves II-XII grossly intact bilaterally. Motor grossly intact bilaterally Extremities: No pitting edema Psych: Appropriate affect Results Labs 01/04/25 16:55 01/04/25 16:55 Labs: Laboratory Results - last 24 hr 01/04/25 01/04/25 16:55 21:10 MCV 97.7 MCH 31.1 MCHC 31.8 RDW 15.9 Plt Count 176 MPV 8.8 L Immature Gran % (Auto) 0.4 Neut % (Auto) 69.3 Lymph % (Auto) 18.8 L [place] % (Auto) 9.8 Eos % (Auto) 1.5 Baso % (Auto) 0.2 Lymph # (Auto) 1.0 L [place] # (Auto) 0.5 Eos # (Auto) 0.1 Baso # (Auto) 0.0 Abs Immat Gran (auto) 0.02 Absolute Neuts (auto) 3.7 Absolute Nucleated RBC 0.000 Nucleated RBC % (auto) 0.0 Hold Purple Top SEE NOTE PT 19.8 H INR 1.6 H Hold Blue Top SEE NOTE Anion Gap 7 L Estim Creat Clear Calc 40.1 Estimated GFR 43 Random Glucose 116 H Lactic Acid 1.2 Calcium 9.7 D Total Bilirubin 0.3 Direct Bilirubin 0.1 AST 29 ALT 14 Alkaline Phosphatase 95 Total Protein 6.7 Albumin 2.6 L Lipase 17 Blood Type A Positive Antibody Screen NEGATIVE Assessment and Plan (1) Nephrostomy tube displaced: Status: Acute (2) Acute kidney insufficiency: Status: Acute (3) Stage 4 pressure ulcer: Qualifiers: Laterality: unspecified laterality Pressure injury location: buttock Qualified Code(s): L89.304 - Pressure ulcer of unspecified buttock, stage 4 Status: Acute Plan Patient is a 69-year-old male with a past medical history significant for history CVA with right-sided deficits, chronic UTIs, suprapubic tube, nephrostomy tube, stage IV decubitus ulcer, paroxysmal AFib on Xarelto, seizure disorder, history of C diff and hypertension, who [facility] ED [facility] due to possible right nephrostomy tube dislodgment. Right nephrostomy tube displaced - CT shows normal placement however visually appears to be falling out - IR consult - ED provider spoke with IR who states patient will need to be off of Xarelto for procedure, soonest availability in 3 days for replacement VI - IV fluids - check UA due to chronic UTIs - nephrology consult - monitor creatinine Chronic anemia - hemoglobin 8.2, at baseline - monitor CBC Stage IV decubitus ulcer - wound care consult - no leukocytosis, no surrounding erythema, warmth or purulent discharge - monitor for signs of infection Paroxysmal AFib - hold Xarelto - continue rate control Seizure disorder - gabapentin and Keppra Hypertension - continue home meds HLD - hold statin due to VI Med rec pending Full code VTE prophylaxis: Pneumoboots Patient with possible right nephrostomy tube displaced, complicated by VI, requiring admission for at least 2 midnight stay for IR consult with possible nephrostomy tube replacement, monitoring. Quality Stroke Does the patient have a stroke diagnosis?: No VTE Prior VTE?: No VTE Risk Level:: Medical - moderate - high VTE Device Contraindication: N/A - Device Ordered VTE Drug Contraindication: Treatment Not Indicated
[2025-01-05] MEDS: levETIRAcetam Oral Soln 500 MG/5 ML 250 MG PO ×3 (02:07→20:55)
--- NOTE | 2025-01-05 02:13 | HO.NURTONUR ---
69 yr old male, from [facility]. Has right nephrostomy tube and workers there thought it was dislodged. suprapubic cath draining yellow urine. 20G LAC, has h/o CVA with right deficits. non verbal patient. has a couple wounds on coccyx covered with mepliex. Hospitalist has ordered wound care consult.CT scan said his nephrostomy tube was in place. using right side for his pulse ox due to fine tremors in left hand - will show a perfect pleth but sat of 70's - placed on the right hand 99-100% on room air. no distress since I have had him.
[2025-01-05 05:13] LABS: Hematocrit 24.9 % (42.0-52.0); Hemoglobin 7.9 g/dl (14.0-18.0); Mean Corpuscular HGB Conc 31.7 g/dl (31.0-36.0); Mean Corpuscular Hemoglobin 31.0 pg (27.0-33.0); Mean Corpuscular Volume 97.6 fL (80.0-98.0); NRBC Abs Auto 0.000 X10*3/uL (0.0-0.012); NRBC Pct Auto 0.0 /100WBC (0.0-0.2); Platelet Count 170 X10*3/uL (160-400); Red Blood Count 2.55 X10*6/uL (4.60-5.80); White Blood Count 3.9 X10*3/uL (4.8-10.8)
[2025-01-05 05:27] LABS: Anion Gap 9 (12-20); Blood Urea Nitrogen 61 mg/dL (9-16); Calcium 8.9 mg/dL (8.4-10.2); Carbon Dioxide 18 mmol/L (22-29); Chloride 122 mmol/L (96-108); Creatinine Clr Calc Pharmacy 49.8; Estimated Glomerular Filt Rate 55; Potassium 4.1 mmol/L (3.3-5.1); Sodium 145 mmol/L (135-145)
[2025-01-05] MEDS: Lactated Ringers 1,000 ML 100 ML IVCONT ×2 (08:18→18:25)
[2025-01-05] MEDS: 0.9 % Sodium Chloride Flush 3 ML SYRINGE IVFLUSH (08:18)
--- NOTE | 2025-01-05 08:47 | PHA.MEDREC ---
Addendum entered by Melba Luna RPh 01/05/25 09:58: MED REC REVIEWED BY [facility] Original Note: Pharmacy Consult ? Medication Reconciliation Pharmacy has completed the medication reconciliation. Utilized list from [facility] to confirm med list.
--- NOTE | 2025-01-05 09:40 | HO.PM.IMPN ---
Subjective Subjective Date of Service: 01/05/25 Interval History: non-verbal at baseline per SNF staff SCr improved Review of Systems Review of Systems: Yes all other systems are reviewed and are negative Physical Exam Vital Signs: Vital Signs: Last Vital Signs Temp 97.3 F 01/05/25 07:11 Pulse 88 01/05/25 07:11 Resp 13 01/05/25 07:11 BP 118/70 01/05/25 07:11 Pulse Ox 99 01/05/25 07:11 O2 Del Method Room Air 01/05/25 07:11 BMI result Body Mass Index 23.8 Gen: in no acute distress HEENT: sclera anicteric, moist mucus membranes Neck: supple Lungs: clear to auscultation bilaterally Heart: regular rate and rhythm, no murmurs Abd: soft, non-tender, non-distended : suprapubic catheter with clear urine, nephrostomy tube without drainage and appears dislodged Ext: no edema Skin: warm/well-perfused Neuro: alert, nonverbal Psych: impaired insight Objective Data Active Medications Acetaminophen (Acetaminophen 325 Mg Tablet) 975 mg PO Q6H PRN PRN Reason: Pain, Mild 1-3,fever,headache Calcium Carbonate (Calcium Carbonate 750 Mg Tab.Chew) 750 mg PO Q4H PRN PRN Reason: Heartburn Gabapentin (Gabapentin 300 Mg Capsule) 300 mg PO BEDTIME REPLACED BY [facility] Last Admin: 01/05/25 02:07 Dose: 300 mg Documented By: JOSE Lactated Ringer's (Lr) 1,000 mls @ 100 mls/hr IVCONT .Q10H REPLACED BY [facility] Last Admin: 01/05/25 08:18 Dose: 100 mls/hr Documented By: OSVALDO Levetiracetam (Levetiracetam Oral Soln 500 Mg/5 Ml) 250 mg PO BID REPLACED BY [facility] Last Admin: 01/05/25 09:10 Dose: 250 mg Documented By: COLE Magnesium Hydroxide (Milk Of Magnesia 30 Ml Oral.Susp) 30 ml PO DAILY PRN PRN Reason: Constipation Melatonin (Melatonin 3 Mg Tablet) 6 mg PO BEDTIME PRN PRN Reason: Insomnia Ondansetron HCl (Ondansetron Hcl 4 Mg/2 Ml Vial) 4 mg IVPUSH Q8H PRN PRN Reason: Nausea and Vomiting Sodium Chloride (0.9 % Sodium Chloride Flush 3 Ml Syringe) 3 ml IVFLUSH QSHIFT REPLACED BY [facility] Last Admin: 01/05/25 08:18 Dose: 3 ml Documented By: OSVALDO Labs 01/05/25 04:44 01/05/25 04:44 Labs: Laboratory Results - last 24 hr 01/04/25 01/04/25 01/05/25 16:55 21:10 04:44 MCV 97.7 97.6 MCH 31.1 31.0 MCHC 31.8 31.7 RDW 15.9 15.6 Plt Count 176 170 MPV 8.8 L 8.9 L Immature Gran % (Auto) 0.4 Neut % (Auto) 69.3 Lymph % (Auto) 18.8 L [place] % (Auto) 9.8 Eos % (Auto) 1.5 Baso % (Auto) 0.2 Lymph # (Auto) 1.0 L [place] # (Auto) 0.5 Eos # (Auto) 0.1 Baso # (Auto) 0.0 Abs Immat Gran (auto) 0.02 Absolute Neuts (auto) 3.7 Absolute Nucleated RBC 0.000 0.000 Nucleated RBC % (auto) 0.0 0.0 Hold Purple Top SEE NOTE PT 19.8 H INR 1.6 H Hold Blue Top SEE NOTE Anion Gap 7 L 9 L Estim Creat Clear Calc 40.1 49.8 Estimated GFR 43 55 Random Glucose 116 H 107 Lactic Acid 1.2 Calcium 9.7 D 8.9 D Total Bilirubin 0.3 Direct Bilirubin 0.1 AST 29 ALT 14 Alkaline Phosphatase 95 Total Protein 6.7 Albumin 2.6 L Lipase 17 Blood Type A Positive Antibody Screen NEGATIVE Assessment and Plan (1) Acute kidney insufficiency: Status: Acute (2) Chronic suprapubic catheter: Status: Acute (3) Nephrostomy tube displaced: Status: Acute Plan d1, 69yo M LTC resident with hx CVA with residual R weakness, chronic UTIs, chronic C. difficile, suprapubic tube, nephrostomy tube, stage IV decubitus ulcer, pAF on rivaroxaban, seizure disorder, and HTN sent in with nephrostomy tube dislodgement displacement of R nephrostomy tube: IR consulted, hold Xarelto, replace tube Monday 01/08 VI, prerenal: resolving with IV fluid resuscitation NAGMA: likely from NS; change NS to LR for fluid resuscitation stage IV decubitus ulcer: wound care consultation pAF: hold Xarelto, not on any rate control agent anemia of chronic disease: H+H baseline seizure disorder: gabapentin, levetiracetam HTN: losartan HLD: atorvastatin chronic C. difficile: vancomycin recurrent UTIs: methenamine VTE ppx: SCDs, Xarelto on hold for nephrostomy change dispo: LTC In my clinical judgment, the patient requires continued inpatient hospitalization for the following reasons: nephrostomy change Total time managing care of this patient today: 35 minutes. Quality Stroke Does the patient have a stroke diagnosis?: No VTE Prior VTE?: No VTE Risk Level:: Medical - moderate - high VTE Device Contraindication: N/A - Device Ordered VTE Drug Contraindication: Treatment Not Indicated
[2025-01-05] MEDS: oxyCODONE HCl Immed Release 5 MG TABLET PO ×3 (10:24→20:54)
--- NOTE | 2025-01-05 11:59 | MHC.CM.PN ---
[facility] WILL NEED BLS
--- NOTE | 2025-01-05 12:40 | MHC.CLN ---
CONSULT DIET RX: PUREE WITH HONEY THICK LIQUIDS. INCREASED NUTRITION NEEDS WITH STAGE IV PRESSURE INJURY TO COCCYX. ADDING MAGIC CUP TID TO PROMOTE WOUND HEALING. SUPPLEMENT PROVIDES 870 KCALS, 27 G PROTEIN. FOLLOW FOR DIET TOLERANCE, PO INTAKE AND WOUND HEALING. SEE CLINICAL NUTRITION ASSESSMENT.
--- NOTE | 2025-01-05 12:49 | HO.WOUND ---
Wound Consult: Initial 69 yr old male [place] [facility] See progress notes and H&P for detailed history. Wound consult placed for chronic wounds, coccyx, right hip. Patient agreeable to assessment and photo documentation. RN and HEALTH EDUCATION COORDINATOR at bedside. Patient with chronic wounds to coccyx and right hip, known to wound team from previous admissions. Coccyx moist pink/red scant yellow, no bone palpable, rolled edges, scar tissue anshul wound with evidence of friction/shearing over buttocks Right hip- pale pink and scant yellow tissue with rolled edges- creamy gant drainage without odor- bone palpable under thin layer of tissue Etiology: Coccyx and right hip stage 4 pressure injuries present on admission Drainage / Odor: no odor Edges: ? rolled Anshul wound: ? No Induration, Fluctuance or Warmth noted Pain: none Goals of Treatment: ? offlaoding, moist healing with durafiber left knee Etiology: deep tissue pressure injury present on admission Wound Bed: intact purple nonblanching Drainage / Odor: none Anshul wound: ? No Induration, Fluctuance or Warmth noted Pain: none Goals of Treatment: ? offloading with foam and pillows Right medial knee Etiology: unstageable pressure injury Present on Admission Wound Bed: moist yellow Drainage / Odor: scant yellow no odor Edges: ? open Anshul wound: ? No Induration, Fluctuance or Warmth noted Pain: none Goals of Treatment: ? offloading - durafiber for drainage absorption, moist healing and promotion of autolytic debridment. bilateral heels are intact, blanching, mildly boggy - recommend offloading with pillows or boots Recommendations: 1. Turn and Reposition every 2 hours and as needed for patient comfort. Use pillows or wedges to support off loading positions. 2. Off Load all bony prominences with use of pillows and heel boots if needed. Apply Preventative foams where needed. 3. Monitor for incontinence and moisture control, use barrier creams when needed for prevention and treatment. 4. Provide adequate and supplemental nutrition. 5. Order or Continue low air loss mattress. 6. When applicable maintain blood glucose levels per Providers order. Coccyx, Right hip, Right medial knee: offload pressure with Q2h turns and pillows, cleanse with saline, pat dry, apply skin prep anshul wound, apply durafiber ag to wound bed, packed gently to undermined areas, cover with foam, change every other day and PRN Left knee: offload pressure with Q2H turns and pillows. apply skin prep, cover with foam, change every other day and PRN Bilateral heels: offload with pillows or boots, elevate off bed surface Re-consult wound care Nurse for wound deterioration or wound changes.
[2025-01-05] MEDS: Psyllium seed 3.7 GM PACKET PO (20:55)
[2025-01-06] VITALS (14 sets, daily range): BP systolic 105–142; BP diastolic 57–86; PULSE 71–99; RESP 14–18; TEMP 35.8–37; O2SAT 97–98
[2025-01-06] MEDS: Lactated Ringers 1,000 ML 100 ML IVCONT ×2 (03:20→13:40)
[2025-01-06] MEDS: oxyCODONE HCl Immed Release 5 MG TABLET PO ×4 (03:26→21:34)
[2025-01-06 06:25] LABS: Mean Corpuscular HGB Conc 32.2 g/dl (31.0-36.0); Mean Corpuscular Hemoglobin 31.3 pg (27.0-33.0); Mean Corpuscular Volume 97.2 fL (80.0-98.0); NRBC Abs Auto 0.000 X10*3/uL (0.0-0.012); NRBC Pct Auto 0.0 /100WBC (0.0-0.2); Platelet Count 148 X10*3/uL (160-400); Red Blood Count 2.14 X10*6/uL (4.60-5.80); White Blood Count 4.0 X10*3/uL (4.8-10.8)
[2025-01-06 06:36] LABS: Hemoglobin 6.7 g/dl (14.0-18.0)
[2025-01-06 06:37] LABS: Hematocrit 20.8 % (42.0-52.0)
--- NOTE | 2025-01-06 06:39 | PM.EVENT ---
Event Note Date of Service: 01/06/25 Event Note: 0650 Received urgent message from Lab, H/H for this pt this am is 6.7/20.8, hemodynamics stable. Pt has been on xaralto and this is currently on hold for IR intervention to replace nephrotomy tube. Previosu H/H 7.9/24.9, INR yesterday 1.6. Type and cross from 01/04 still valid, ordered one unit of PRBCs to help day provider. Stool for occult X1 ordered. Protonix 40 IV daily to start now. Provided update to QB for sign out. Time Spent With Patient Time: Total time managing care of this patient today ____ minutes.
[2025-01-06 06:40] LABS: Anion Gap 8 (12-20); Blood Urea Nitrogen 51 mg/dL (9-16); Calcium 8.7 mg/dL (8.4-10.2); Carbon Dioxide 17 mmol/L (22-29); Chloride 122 mmol/L (96-108); Creatinine Clr Calc Pharmacy 52.2; Estimated Glomerular Filt Rate 58; Potassium 3.3 mmol/L (3.3-5.1); Sodium 144 mmol/L (135-145)
[2025-01-06 07:58] LABS: INTERNATIONAL NORM RATIO 1.3 (0.9-1.1); Prothrombin Time 15.8 SEC (11.2-13.5)
[2025-01-06] MEDS: Potassium Chloride Packet 20 MEQ PACKET 40 MEQ PO (08:28)
[2025-01-06] MEDS: Ferrous Sulfate 324 MG TABLET.DR PO (08:29)
[2025-01-06] MEDS: 0.9 % Sodium Chloride Flush 3 ML SYRINGE IVFLUSH ×3 (08:29→21:35)
[2025-01-06] MEDS: levETIRAcetam Oral Soln 500 MG/5 ML 250 MG PO ×2 (08:29→21:33)
--- NOTE | 2025-01-06 11:03 | PC.NURSE ---
2 units PRBC ordered, Hospitalist called the HCP for consent, HCP did not answer the call, provider left a message, waiting for call back for consent.
--- NOTE | 2025-01-06 15:36 | HO.PM.IMPN ---
Subjective Subjective Date of Service: 01/06/25 Interval History: Nonverbal but appears comfortable Review of Systems Unable to obtain Physical Exam Vital Signs: Vital Signs: Last Vital Signs Temp 98.6 F 01/06/25 15:33 Pulse 89 01/06/25 15:33 Resp 18 01/06/25 15:33 BP 125/72 01/06/25 15:33 Pulse Ox 98 01/06/25 15:11 O2 Del Method Room Air 01/06/25 15:11 BMI result Body Mass Index 23.8 Const: Other: Awake ; eyes follow up verbal contact Resp: Other: Clear to auscultation bilaterally no rales rhonchi or wheezes Cardio: Other: No S4; positive S1-S2; no S3 murmurs rubs or gallops GI: Other: Soft nontender nondistended normoactive bowel sounds Extrem: Other: No edema bilaterally Objective Data Active Medications Acetaminophen (Acetaminophen 325 Mg Tablet) 975 mg PO Q6H PRN PRN Reason: Pain, Mild 1-3,fever,headache Acetic Acid (Acetic Acid 0.25 % Irrigation 250 Ml Irrig.Soln) 1 appl TOPICAL TUTHSA@2100 [facility]; Protocol Ascorbic Acid (Ascorbic Acid 500 Mg Tablet) 1,000 mg PO DAILY [facility] Last Admin: 01/06/25 08:29 Dose: 1,000 mg Documented By: JULES Atorvastatin Calcium (Atorvastatin Calcium 80 Mg Tablet) 80 mg PO DAILY [facility] Last Admin: 01/06/25 08:29 Dose: 80 mg Documented By: JULES Calcium Carbonate (Calcium Carbonate 750 Mg Tab.Chew) 750 mg PO Q4H PRN PRN Reason: Heartburn Ferrous Sulfate (Ferrous Sulfate 324 Mg Tablet.) 324 mg PO DAILY [facility] Last Admin: 01/06/25 08:29 Dose: 324 mg Documented By: JULES Gabapentin (Gabapentin 300 Mg Capsule) 300 mg PO BEDTIME [facility] Last Admin: 01/05/25 20:54 Dose: 300 mg Documented By: JUDAH Lactated Ringer's (Lr) 1,000 mls @ 100 mls/hr IVCONT .Q10H [facility] Last Admin: 01/06/25 13:40 Dose: 100 mls/hr Documented By: JULES Levetiracetam (Levetiracetam Oral Soln 500 Mg/5 Ml) 250 mg PO BID [facility] Last Admin: 01/06/25 08:29 Dose: 250 mg Documented By: JULES Losartan Potassium (Losartan Potassium 25 Mg Tablet) 25 mg PO DAILY [facility]; Protocol Last Admin: 01/06/25 08:28 Dose: 25 mg Documented By: JULES Magnesium Citrate (Magnesium Citrate 300 Ml Solution) 150 ml PO DAILY PRN PRN Reason: No BM in 12 hrs Magnesium Hydroxide (Milk Of Magnesia 30 Ml Oral.Susp) 30 ml PO DAILY PRN PRN Reason: No BM in 3 Days Melatonin (Melatonin 3 Mg Tablet) 6 mg PO BEDTIME PRN PRN Reason: Insomnia Methenamine Hippurate (Methenamine Hippurate 1 Gm Tablet) 1 gm PO daily [facility] Last Admin: 01/06/25 08:29 Dose: 1 gm Documented By: JULES Multivitamins/Vitamin C (Multivitamin Tablet) 1 tab PO DAILY [facility] Last Admin: 01/06/25 08:29 Dose: 1 tab Documented By: JULES Ondansetron HCl (Ondansetron Hcl 4 Mg/2 Ml Vial) 4 mg IVPUSH Q8H PRN PRN Reason: Nausea and Vomiting Oxycodone HCl (Oxycodone Hcl Immed Release 5 Mg Tablet) 5 mg PO Q6H [facility] Last Admin: 01/06/25 10:58 Dose: 5 mg Documented By: JULES Pantoprazole Sodium (Pantoprazole Sodium 40 Mg/10 Ml Vial) 40 mg IVPUSH DAILY@0630 [facility] Last Admin: 01/06/25 08:29 Dose: 40 mg Documented By: JULES Potassium Chloride (Potassium Chloride Packet 20 Meq Packet) 40 meq PO DAILY [facility] Last Admin: 01/06/25 08:28 Dose: 40 meq Documented By: JULES Psyllium Hydrophilic Mucilloid (Psyllium Seed 3.7 Gm Packet) 3.7 gm PO BEDTIME [facility] Last Admin: 01/05/25 20:55 Dose: 3.7 gm Documented By: JUDAH Simethicone (Simethicone 80 Mg Tab.Chew) 80 mg PO Q6H PRN PRN Reason: Abdominal Distention Sodium Biphosphate/Sodium Phosphate (Sodium Phosphate,[place]-Dibasic 133 Ml Enema) 118 ml [place] DAILY PRN PRN Reason: If no BM in 8 hours after use of Bisacodyl Sodium Chloride (0.9 % Sodium Chloride Flush 3 Ml Syringe) 3 ml IVFLUSH QSHIFT [facility] Last Admin: 01/06/25 08:29 Dose: 3 ml Documented By: JULES Tamsulosin HCl (Tamsulosin Hcl 0.4 Mg Capsule) 0.4 mg PO BEDTIME [facility] Last Admin: 01/05/25 20:54 Dose: 0.4 mg Documented By: JUDAH Vancomycin HCl (Vancomycin Hcl 125 Mg Capsule) 125 mg PO Q6H [facility] Last Admin: 01/06/25 10:58 Dose: 125 mg Documented By: JULES Labs 01/06/25 05:59 01/06/25 05:59 Labs: Laboratory Results - last 24 hr 01/04/25 01/06/25 21:10 05:59 MCV 97.2 MCH 31.3 MCHC 32.2 RDW 15.6 Plt Count 148 L MPV 8.9 L Absolute Nucleated RBC 0.000 Nucleated RBC % (auto) 0.0 PT 15.8 H D INR 1.3 H Anion Gap 8 L Estim Creat Clear Calc 52.2 Estimated GFR 58 Random Glucose 107 Calcium 8.7 Blood Type A Positive Antibody Screen NEGATIVE Crossmatch See Detail Microbiology Microbiology Results: Microbiology 01/04/25 16:55 Blood Culture - Preliminary Blood - Venous No growth after 24 hours. 01/04/25 16:55 Blood Culture - Preliminary Blood - Venous No growth after 24 hours. Assessment and Plan (1) Nephrostomy tube displaced: Status: Acute (2) C. difficile diarrhea: Status: Acute (3) Stage 4 pressure ulcer: Status: Acute Plan 69yo M LTC resident with hx CVA with residual R weakness, chronic UTIs, chronic C. difficile, suprapubic tube, nephrostomy tube, stage IV decubitus ulcer, pAF on rivaroxaban, seizure disorder, and HTN sent in with nephrostomy tube dislodgement. Hemoglobin trending downward 1.Displacement of R nephrostomy tube -scheduled replacement 01/08/2025. . . IR -hold Xarelto until after procedure; restart when appropriate 2. Acute kidney injury (prerenal) -responded to volume -follow renals/divalents 3. Metabolic acidosis (non-anion gap) -likely secondary to normal saline solution -improving with switch to lactated Ringer's -follow clinically 4. Stage IV decubitus ulcer (present on admission) -off-load coccyx -wound care consult 5. Paroxysmal atrial fibrillation -examined and normal sinus rhythm -hold Xarelto secondary to 1. -restart when clinically appropriate 6. Acute blood loss anemia -transfuse 2 units packed red cells with IV Lasix in between -follow serial CBC Full code Pneumatics Requires ongoing hospitalization for packed red cell transfusion and monitoring of hemoglobin. Also requires replacement of nephrostomy tube with Interventional Radiology Quality Stroke Does the patient have a stroke diagnosis?: No VTE Prior VTE?: No VTE Risk Level:: Medical - moderate - high VTE Device Contraindication: N/A - Device Ordered VTE Drug Contraindication: Treatment Not Indicated
[2025-01-06] MEDS: Furosemide 20 MG/2 ML VIAL IVPUSH (17:59)
[2025-01-06] MEDS: Psyllium seed 3.7 GM PACKET PO (21:34)
[2025-01-07 00:15] LABS: OBS Int Ctl Valid YES; OBS1 NEGATIVE (NEGATIVE)
[2025-01-07 03:19] VITALS: BP 98/57; PULSE 72; RESP 18; TEMP 36.6; O2SAT 98
[2025-01-07] MEDS: oxyCODONE HCl Immed Release 5 MG TABLET PO ×4 (03:53→20:34)
[2025-01-07] MEDS: Lactated Ringers 1,000 ML 100 ML IVCONT (03:54)
[2025-01-07 06:43] LABS: Hematocrit 28.7 % (42.0-52.0); Hemoglobin 9.4 g/dl (14.0-18.0); Mean Corpuscular HGB Conc 32.8 g/dl (31.0-36.0); Mean Corpuscular Hemoglobin 31.4 pg (27.0-33.0); Mean Corpuscular Volume 96.0 fL (80.0-98.0); NRBC Abs Auto 0.000 X10*3/uL (0.0-0.012); NRBC Pct Auto 0.0 /100WBC (0.0-0.2); Platelet Count 139 X10*3/uL (160-400); Red Blood Count 2.99 X10*6/uL (4.60-5.80); White Blood Count 5.4 X10*3/uL (4.8-10.8)
[2025-01-07 07:28] LABS: Anion Gap 9 (12-20); Blood Urea Nitrogen 48 mg/dL (9-16); Calcium 8.6 mg/dL (8.4-10.2); Carbon Dioxide 20 mmol/L (22-29); Chloride 122 mmol/L (96-108); Creatinine Clr Calc Pharmacy 44.9; Estimated Glomerular Filt Rate 49; Potassium 3.5 mmol/L (3.3-5.1); Sodium 147 mmol/L (135-145)
[2025-01-07 08:30] VITALS: BP 114/62; PULSE 63; RESP 18; TEMP 37; O2SAT 98
[2025-01-07] MEDS: Potassium Chloride Packet 20 MEQ PACKET 40 MEQ PO (08:53)
[2025-01-07] MEDS: Ferrous Sulfate 324 MG TABLET.DR PO (08:54)
[2025-01-07] MEDS: levETIRAcetam Oral Soln 500 MG/5 ML 250 MG PO ×2 (08:54→20:34)
--- NOTE | 2025-01-07 12:52 | P.PNIM_ITS ---
Subjective Subjective Date of Service: 01/07/25 Interval History: Continues to have small amount of blood and percutaneous tube. No other acute issues overnight Review of Systems Unable to obtain Physical Exam 2 Vital Signs: Vital Signs: Last Vital Signs Temp 98.6 F 01/07/25 08:30 Pulse 63 01/07/25 08:30 Resp 18 01/07/25 08:30 BP 114/62 01/07/25 08:30 Pulse Ox 98 01/07/25 08:30 O2 Del Method Room Air 01/07/25 08:30 BMI result Body Mass Index 23.8 Const: Other: Awake ; eyes follow up verbal contact Resp: Other: Clear to auscultation bilaterally no rales rhonchi or wheezes Cardio: Other: No S4; positive S1-S2; no S3 murmurs rubs or gallops GI: Other: Soft nontender nondistended normoactive bowel sounds Extrem: Other: No edema bilaterally Objective Data Active Medications Acetaminophen (Acetaminophen 325 Mg Tablet) 975 mg PO Q6H PRN PRN Reason: Pain, Mild 1-3,fever,headache Acetic Acid (Acetic Acid 0.25 % Irrigation 250 Ml Irrig.Soln) 1 appl TOPICAL TUTHSA@2100 [facility]; Protocol Last Admin: 01/06/25 22:36 Dose: 1 appl Documented By: JUDAH Ascorbic Acid (Ascorbic Acid 500 Mg Tablet) 1,000 mg PO DAILY [facility] Last Admin: 01/07/25 08:53 Dose: 1,000 mg Documented By: JULES Atorvastatin Calcium (Atorvastatin Calcium 80 Mg Tablet) 80 mg PO DAILY [facility] Last Admin: 01/07/25 08:53 Dose: 80 mg Documented By: JULES Calcium Carbonate (Calcium Carbonate 750 Mg Tab.Chew) 750 mg PO Q4H PRN PRN Reason: Heartburn Ferrous Sulfate (Ferrous Sulfate 324 Mg Tablet.Dr) 324 mg PO DAILY [facility] Last Admin: 01/07/25 08:54 Dose: 324 mg Documented By: JULES Gabapentin (Gabapentin 300 Mg Capsule) 300 mg PO BEDTIME [facility] Last Admin: 01/06/25 21:34 Dose: 300 mg Documented By: JUDAH Levetiracetam (Levetiracetam Oral Soln 500 Mg/5 Ml) 250 mg PO BID [facility] Last Admin: 01/07/25 08:54 Dose: 250 mg Documented By: JULES Losartan Potassium (Losartan Potassium 25 Mg Tablet) 25 mg PO DAILY [facility]; Protocol Last Admin: 01/07/25 08:53 Dose: 25 mg Documented By: JULES Magnesium Citrate (Magnesium Citrate 300 Ml Solution) 150 ml PO DAILY PRN PRN Reason: No BM in 12 hrs Magnesium Hydroxide (Milk Of Magnesia 30 Ml Oral.Susp) 30 ml PO DAILY PRN PRN Reason: No BM in 3 Days Melatonin (Melatonin 3 Mg Tablet) 6 mg PO BEDTIME PRN PRN Reason: Insomnia Methenamine Hippurate (Methenamine Hippurate 1 Gm Tablet) 1 gm PO daily [facility] Last Admin: 01/07/25 08:53 Dose: 1 gm Documented By: JULES Multivitamins/Vitamin C (Multivitamin Tablet) 1 tab PO DAILY [facility] Last Admin: 01/07/25 08:54 Dose: 1 tab Documented By: JULES Ondansetron HCl (Ondansetron Hcl 4 Mg/2 Ml Vial) 4 mg IVPUSH Q8H PRN PRN Reason: Nausea and Vomiting Oxycodone HCl (Oxycodone Hcl Immed Release 5 Mg Tablet) 5 mg PO Q6H [facility] Last Admin: 01/07/25 09:03 Dose: 5 mg Documented By: JULES Pantoprazole Sodium (Pantoprazole Sodium 40 Mg/10 Ml Vial) 40 mg IVPUSH DAILY@0630 [facility] Last Admin: 01/07/25 05:42 Dose: 40 mg Documented By: JUDAH Potassium Chloride (Potassium Chloride Packet 20 Meq Packet) 40 meq PO DAILY [facility] Last Admin: 01/07/25 08:53 Dose: 40 meq Documented By: JULES Psyllium Hydrophilic Mucilloid (Psyllium Seed 3.7 Gm Packet) 3.7 gm PO BEDTIME [facility] Last Admin: 01/06/25 21:34 Dose: 3.7 gm Documented By: JUDAH Simethicone (Simethicone 80 Mg Tab.Chew) 80 mg PO Q6H PRN PRN Reason: Abdominal Distention Sodium Biphosphate/Sodium Phosphate (Sodium Phosphate,[place]-Dibasic 133 Ml Enema) 118 ml [place] DAILY PRN PRN Reason: If no BM in 8 hours after use of Bisacodyl Sodium Chloride (0.9 % Sodium Chloride Flush 3 Ml Syringe) 3 ml IVFLUSH QSHIFT [facility] Last Admin: 01/07/25 09:08 Dose: Not Given Documented By: JULES Non-Admin Reason: IV Running Tamsulosin HCl (Tamsulosin Hcl 0.4 Mg Capsule) 0.4 mg PO BEDTIME [facility] Last Admin: 01/06/25 21:34 Dose: 0.4 mg Documented By: JUDAH Vancomycin HCl (Vancomycin Hcl 125 Mg Capsule) 125 mg PO Q6H [facility] Last Admin: 01/07/25 09:03 Dose: 125 mg Documented By: JULES Labs 01/07/25 06:27 01/07/25 06:27 Labs: Laboratory Results - last 24 hr 01/04/25 01/06/25 01/07/25 21:10 23:21 06:27 MCV 96.0 MCH 31.4 MCHC 32.8 RDW 17.0 H Plt Count 139 L MPV 8.8 L Absolute Nucleated RBC 0.000 Nucleated RBC % (auto) 0.0 Anion Gap 9 L Estim Creat Clear Calc 44.9 Estimated GFR 49 Random Glucose 115 Calcium 8.6 Stool Occult Blood NEGATIVE Blood Type A Positive Antibody Screen NEGATIVE Crossmatch See Detail Microbiology Microbiology Results: Microbiology 01/04/25 16:55 Blood Culture - Preliminary Blood - Venous No growth after 48 hours. 01/04/25 16:55 Blood Culture - Preliminary Blood - Venous No growth after 48 hours. Assessment and Plan (1) Nephrostomy tube displaced: Status: Acute (2) Chronic anemia: Status: Acute Plan 69yo M LTC resident with hx CVA with residual R weakness, chronic UTIs, chronic C. difficile, suprapubic tube, nephrostomy tube, stage IV decubitus ulcer, pAF on rivaroxaban, seizure disorder, and HTN sent in with nephrostomy tube dislodgement. Hemoglobin trending downward 1.Displacement of R nephrostomy tube -scheduled replacement 01/08/2025. . . IR -hold Xarelto until after procedure; restart when appropriate 2. Acute kidney injury (prerenal) -responded to volume -follow renals/divalents 3. Metabolic acidosis (non-anion gap) -likely secondary to normal saline solution -improving with switch to lactated Ringer's -follow clinically 4. Stage IV decubitus ulcer (present on admission) -off-load coccyx -wound care consult 5. Paroxysmal atrial fibrillation -examined and normal sinus rhythm -hold Xarelto secondary to 1. -restart when clinically appropriate 6. Acute blood loss anemia -good response to packed red cells -follow serial CBC Full code Pneumatics Requires ongoing hospitalization for packed red cell transfusion and monitoring of hemoglobin. Also requires replacement of nephrostomy tube with Interventional Radiology Quality Stroke Does the patient have a stroke diagnosis?: No VTE Prior VTE?: No VTE Risk Level:: Medical - moderate - high VTE Device Contraindication: N/A - Device Ordered VTE Drug Contraindication: Treatment Not Indicated
[2025-01-07 15:35] VITALS: BP 114/56; PULSE 87; RESP 12; TEMP 36.6; O2SAT 97
[2025-01-07 19:45] VITALS: BP 132/68; PULSE 85; RESP 18; TEMP 36.7; O2SAT 96
[2025-01-07] MEDS: Psyllium seed 3.7 GM PACKET PO (20:34)
[2025-01-08] VITALS (10 sets, daily range): BP systolic 91–138; BP diastolic 35–82; PULSE 62–81; RESP 13–21; TEMP 36.2–36.7; O2SAT 96–100
[2025-01-08] MEDS: oxyCODONE HCl Immed Release 5 MG TABLET PO ×3 (08:51→21:12)
[2025-01-08] MEDS: Ferrous Sulfate 324 MG TABLET.DR PO (08:51)
[2025-01-08] MEDS: levETIRAcetam Oral Soln 500 MG/5 ML 250 MG PO ×2 (08:57→21:11)
[2025-01-08] MEDS: Potassium Chloride Packet 20 MEQ PACKET 40 MEQ PO (08:57)
[2025-01-08] MEDS: 0.9 % Sodium Chloride Flush 3 ML SYRINGE IVFLUSH ×2 (08:58→21:13)
--- NOTE | 2025-01-08 11:22 | MHC.CLN ---
F/U CURRENTLY NPO FOR NEPHROSTOMY TUBE EXCHANGE SX. SKIN WITH STAGE IV PRESSURE INJURIES TO RIGHT BUTTOCK AND COCCYX, DTI TO LEFT KNEE, UNSTAGEABLE AREA TO RIGHT KNEE. WHEN ABLE, RECOMMEND RESUME DIET: PUREE WITH HONEY THICK LIQUIDS. MAGIC CUP TID TO PROMOTE WOUND HEALING. SUPPLEMENT PROVIDES 870 KCALS, 27 G PROTEIN. PO PRIOR TO NPO STATUS, 25-50%. FOLLOW FOR DIET TOLERANCE, PO INTAKE AND WOUND HEALING.
--- NOTE | 2025-01-08 14:33 | P.PNIM_ITS ---
Subjective Subjective Date of Service: 01/08/25 Interval History: Hemoglobin remained stable. No acute issues overnight Review of Systems Unable to obtain Physical Exam 2 Vital Signs: Vital Signs: Last Vital Signs Temp 97.8 F 01/08/25 08:00 Pulse 79 01/08/25 14:30 Resp 13 01/08/25 14:30 BP 94/35 L 01/08/25 14:30 Pulse Ox 99 01/08/25 14:30 O2 Del Method Nasal Cannula 01/08/25 14:30 O2 Flow Rate 2 01/08/25 14:30 BMI result Body Mass Index 23.8 Const: Other: Awake ; eyes follow up verbal contact Resp: Other: Clear to auscultation bilaterally no rales rhonchi or wheezes Cardio: Other: No S4; positive S1-S2; no S3 murmurs rubs or gallops GI: Other: Soft nontender nondistended normoactive bowel sounds Extrem: Other: No edema bilaterally Objective Data Active Medications Acetaminophen (Acetaminophen 325 Mg Tablet) 975 mg PO Q6H PRN PRN Reason: Pain, Mild 1-3,fever,headache Acetic Acid (Acetic Acid 0.25 % Irrigation 250 Ml Irrig.Soln) 1 appl TOPICAL TUTHSA@2100 [facility]; Protocol Last Admin: 01/06/25 22:36 Dose: 1 appl Documented By: JUDAH Ascorbic Acid (Ascorbic Acid 500 Mg Tablet) 1,000 mg PO DAILY [facility] Last Admin: 01/08/25 08:50 Dose: 1,000 mg Documented By: MAGDALENA Atorvastatin Calcium (Atorvastatin Calcium 80 Mg Tablet) 80 mg PO DAILY [facility] Last Admin: 01/08/25 08:51 Dose: 80 mg Documented By: MAGDALENA Calcium Carbonate (Calcium Carbonate 750 Mg Tab.Chew) 750 mg PO Q4H PRN PRN Reason: Heartburn Ferrous Sulfate (Ferrous Sulfate 324 Mg Tablet.Dr) 324 mg PO DAILY [facility] Last Admin: 01/08/25 08:51 Dose: 324 mg Documented By: MAGDALENA Gabapentin (Gabapentin 300 Mg Capsule) 300 mg PO BEDTIME [facility] Last Admin: 01/07/25 20:33 Dose: 300 mg Documented By: JUDAH Levetiracetam (Levetiracetam Oral Soln 500 Mg/5 Ml) 250 mg PO BID [facility] Last Admin: 01/08/25 08:57 Dose: 250 mg Documented By: MAGDALENA Losartan Potassium (Losartan Potassium 25 Mg Tablet) 25 mg PO DAILY [facility]; Protocol Last Admin: 01/08/25 08:51 Dose: 25 mg Documented By: MAGDALENA Magnesium Citrate (Magnesium Citrate 300 Ml Solution) 150 ml PO DAILY PRN PRN Reason: No BM in 12 hrs Magnesium Hydroxide (Milk Of Magnesia 30 Ml Oral.Susp) 30 ml PO DAILY PRN PRN Reason: No BM in 3 Days Melatonin (Melatonin 3 Mg Tablet) 6 mg PO BEDTIME PRN PRN Reason: Insomnia Methenamine Hippurate (Methenamine Hippurate 1 Gm Tablet) 1 gm PO daily [facility] Last Admin: 01/08/25 08:50 Dose: 1 gm Documented By: MAGDALENA Multivitamins/Vitamin C (Multivitamin Tablet) 1 tab PO DAILY [facility] Last Admin: 01/08/25 08:51 Dose: 1 tab Documented By: MAGDALENA Ondansetron HCl (Ondansetron Hcl 4 Mg/2 Ml Vial) 4 mg IVPUSH Q8H PRN PRN Reason: Nausea and Vomiting Oxycodone HCl (Oxycodone Hcl Immed Release 5 Mg Tablet) 5 mg PO Q6H [facility] Last Admin: 01/08/25 08:51 Dose: 5 mg Documented By: MAGDALENA Pantoprazole Sodium (Pantoprazole Sodium 40 Mg/10 Ml Vial) 40 mg IVPUSH DAILY@0630 [facility] Last Admin: 01/08/25 05:38 Dose: 40 mg Documented By: JUDAH Potassium Chloride (Potassium Chloride Packet 20 Meq Packet) 40 meq PO DAILY [facility] Last Admin: 01/08/25 08:57 Dose: 40 meq Documented By: MAGDALENA Psyllium Hydrophilic Mucilloid (Psyllium Seed 3.7 Gm Packet) 3.7 gm PO BEDTIME [facility] Last Admin: 01/07/25 20:34 Dose: 3.7 gm Documented By: JUDAH Simethicone (Simethicone 80 Mg Tab.Chew) 80 mg PO Q6H PRN PRN Reason: Abdominal Distention Sodium Biphosphate/Sodium Phosphate (Sodium Phosphate,[place]-Dibasic 133 Ml Enema) 118 ml [place] DAILY PRN PRN Reason: If no BM in 8 hours after use of Bisacodyl Sodium Chloride (0.9 % Sodium Chloride Flush 3 Ml Syringe) 3 ml IVFLUSH QSHIFT [facility] Last Admin: 01/08/25 08:58 Dose: 3 ml Documented By: MAGDALENA Tamsulosin HCl (Tamsulosin Hcl 0.4 Mg Capsule) 0.4 mg PO BEDTIME [facility] Last Admin: 01/07/25 20:34 Dose: 0.4 mg Documented By: JUDAH Vancomycin HCl (Vancomycin Hcl 125 Mg Capsule) 125 mg PO Q6H [facility] Last Admin: 01/08/25 10:40 Dose: 125 mg Documented By: MAGDALENA Labs 01/07/25 06:27 01/07/25 06:27 Assessment and Plan (1) Nephrostomy tube displaced: Status: Acute (2) Acute kidney insufficiency: Status: Acute Plan 69yo M LTC resident with hx CVA with residual R weakness, chronic UTIs, chronic C. difficile, suprapubic tube, nephrostomy tube, stage IV decubitus ulcer, pAF on rivaroxaban, seizure disorder, and HTN sent in with nephrostomy tube dislodgement. Hemoglobin trending downward 1.Displacement of R nephrostomy tube -scheduled replacement 01/08/2025 -hold Xarelto until after procedure; restart when appropriate -recheck CBC in a.m. 2. Acute kidney injury (prerenal) -responded to volume -follow renals/divalents 3. Metabolic acidosis (non-anion gap) -likely secondary to normal saline solution -improving with switch to lactated Ringer's -follow clinically 4. Stage IV decubitus ulcer (present on admission) -off-load coccyx -wound care consult 5. Paroxysmal atrial fibrillation -examined and normal sinus rhythm -hold Xarelto secondary to 1. -restart when clinically appropriate 6. Acute blood loss anemia -good response to packed red cells -follow serial CBC Full code Pneumatics Requires ongoing hospitalization for packed red cell transfusion and monitoring of hemoglobin. Also requires replacement of nephrostomy tube with Interventional Radiology Quality Stroke Does the patient have a stroke diagnosis?: No VTE Prior VTE?: No VTE Risk Level:: Medical - moderate - high VTE Device Contraindication: N/A - Device Ordered VTE Drug Contraindication: Treatment Not Indicated
--- NOTE | 2025-01-08 15:40 | MHC.CM.PN ---
per rounds pt will medically ready for dc 01/09 dc plan return to [facility]
[2025-01-09 03:10] VITALS: BP 105/64; PULSE 63; RESP 18; TEMP 37.4; O2SAT 96
[2025-01-09] MEDS: oxyCODONE HCl Immed Release 5 MG TABLET PO ×2 (03:12→08:59)
[2025-01-09 05:50] LABS: MANUAL DIFF FLAG NO
[2025-01-09 05:52] LABS: Hematocrit 28.5 % (42.0-52.0); Hemoglobin 9.1 g/dl (14.0-18.0); Imm Gran Abs Auto 0.01 X10*3/uL (0.00-0.03); Imm Gran Pct Auto 0.2 % (0.0-0.4); Lymphocytes Absolute Auto 1.2 X10*3/uL (1.2-4.9); Mean Corpuscular HGB Conc 31.9 g/dl (31.0-36.0); Mean Corpuscular Hemoglobin 31.2 pg (27.0-33.0); Mean Corpuscular Volume 97.6 fL (80.0-98.0); NRBC Abs Auto 0.000 X10*3/uL (0.0-0.012); NRBC Pct Auto 0.0 /100WBC (0.0-0.2); Platelet Count 156 X10*3/uL (160-400); Red Blood Count 2.92 X10*6/uL (4.60-5.80); White Blood Count 4.9 X10*3/uL (4.8-10.8)
[2025-01-09 06:15] LABS: Alanine Aminotransferase 9 U/L (0-40); Albumin Level 2.2 g/dL (3.5-5.0); Alkaline Phosphatase 81 U/L (39-117); Anion Gap 10 (12-20); Aspartate Amino Transferase 17 U/L (5-37); Blood Urea Nitrogen 43 mg/dL (9-16); Calcium 8.6 mg/dL (8.4-10.2); Carbon Dioxide 20 mmol/L (22-29); Chloride 125 mmol/L (96-108); Creatinine Clr Calc Pharmacy 40.6; Estimated Glomerular Filt Rate 44; Potassium 3.6 mmol/L (3.3-5.1); Sodium 151 mmol/L (135-145); Total Protein 5.6 g/dL (6.5-8.0)
[2025-01-09 08:00] VITALS: BP 135/64; PULSE 54; RESP 16; TEMP 36.4; O2SAT 98
[2025-01-09] MEDS: Ferrous Sulfate 324 MG TABLET.DR PO (08:59)
[2025-01-09] MEDS: levETIRAcetam Oral Soln 500 MG/5 ML 250 MG PO (08:59)
[2025-01-09] MEDS: Potassium Chloride Packet 20 MEQ PACKET 40 MEQ PO (09:00)
[2025-01-09] MEDS: 0.9 % Sodium Chloride Flush 3 ML SYRINGE IVFLUSH (09:00)
--- NOTE | 2025-01-09 11:24 | MHC.CM.PN ---
pt to return to [facility] at 1 today
--- NOTE | 2025-01-09 11:40 | MHC.CM.PN ---
[facility] is [phone]
--- NOTE | 2025-01-09 12:59 | P.DS_ITS ---
DS: Providers Provider Date of Service: 01/09/25 Date of admission: 01/04/25 23:42 Date of discharge: 01/09/25 Primary care physician: Unknown Physician Consults: 01/05/25 00:07 Consult to Wound Care Routine Consulting Provider: [facility] [place] [facility] Reason for consultation: stave 4 decubitus ulcer DS: Diagnosis Discharge Diagnosis (1) Nephrostomy tube displaced: Status: Acute (2) Acute kidney insufficiency: Status: Acute DS: Summary Hospital Course Hospital Course: 1-year-old male with a past medical history significant for history CVA with right-sided deficits, chronic UTIs, suprapubic tube, nephrostomy tube, stage IV decubitus ulcer, paroxysmal AFib on Xarelto, seizure disorder, history of C diff and hypertension, who presented to the ED from [facility] due to possible right nephrostomy tube dislodgement. Patient is nonverbal and unable to provide history. He is currently on Xarelto for PAF. Hospital Course Patient admitted to general medical floor. Xarelto held times 72 hours. Urine remained red tinged. On 01/08/2025 patient underwent successful change of nephrostomy tube. Urine has been clear since replacement. Patient's hemoglobin did drop to 6.9 for which he received 2 units of packed cells. On day of discharge he is 9.1 (baseline.). He is medically stable for transfer back to SNF; Xarelto can be restarted a.m. 01/10/2025 Time Attestation Discharge Coordination Time (in mins): 35 Quality: Safe Use of Opioids Does Pt have an Active Cancer Diagnosis on the Problem List?: No Quality: Stroke Does the patient have a stroke diagnosis?: No Physical Exam Vital Signs: Vital Signs: Last Vital Signs Temp 97.5 F 01/09/25 08:00 Pulse 54 01/09/25 08:00 Resp 16 01/09/25 08:00 BP 135/64 01/09/25 08:00 Pulse Ox 98 01/09/25 08:00 O2 Del Method Room Air 01/09/25 08:00 O2 Flow Rate 2 01/08/25 14:40 BMI result Body Mass Index 23.8 Const: Other: Awake ; eyes follow up verbal contact Resp: Other: Clear to auscultation bilaterally no rales rhonchi or wheezes Cardio: Other: No S4; positive S1-S2; no S3 murmurs rubs or gallops GI: Other: Soft nontender nondistended normoactive bowel sounds Extrem: Other: No edema bilaterally DS: Data Data Completed and Pending Completed studies during hospitalization [Text1]: Procedures Change Drainage Device in Bladder, External Approach (04/19/24) Drainage of Bladder with Drainage Device, Percutaneous Endoscopic Approach (06/23/21) Fluoroscopy of Superior Vena Cava, Guidance (04/19/24) Insertion of Infusion Device into Superior Vena Cava, Percutaneous Approach (04/19/24) Introduction of Vasopressor into Peripheral Vein, Percutaneous Approach (06/29/24) Transfusion of Nonautologous Red Blood Cells into Peripheral Vein, Percutaneous Approach (12/23/22) Labs on day of discharge: Laboratory Results - last 24 hr 01/09/25 05:27 WBC 4.9 RBC 2.92 L Hgb 9.1 L Hct 28.5 L MCV 97.6 MCH 31.2 MCHC 31.9 RDW 16.7 H Plt Count 156 L MPV 9.2 L Immature Gran % (Auto) 0.2 Neut % (Auto) 60.6 Lymph % (Auto) 24.0 Williams % (Auto) 11.5 H Eos % (Auto) 3.3 Baso % (Auto) 0.4 Lymph # (Auto) 1.2 Williams # (Auto) 0.6 Eos # (Auto) 0.2 Baso # (Auto) 0.0 Abs Immat Gran (auto) 0.01 Absolute Neuts (auto) 3.0 Absolute Nucleated RBC 0.000 Nucleated RBC % (auto) 0.0 Sodium 151 H Potassium 3.6 Chloride 125 H Carbon Dioxide 20 L Anion Gap 10 L BUN 43 H Creatinine 1.58 H Estim Creat Clear Calc 40.6 Estimated GFR 44 Fasting Glucose 113 H Calcium 8.6 Total Bilirubin 0.4 AST 17 ALT 9 Alkaline Phosphatase 81 Total Protein 5.6 L Albumin 2.2 L Preliminary micro results at discharge 01/04/25 16:55 Blood Culture - Preliminary Blood - Venous No growth after 48 hours. 01/04/25 16:55 Blood Culture - Preliminary Blood - Venous No growth after 48 hours. Discharge Plan Discharge Anticipated Discharge Date/Time: 01/09/25 12:53 Patient Disposition: [facility] ([facility] Discharge Diagnosis: Displaced nephrostomy tube Referrals: [facility] [Other] - 1 Week Physician,Unknown J [Primary Care Provider, Medical] - 1 Week Discharge Medications: Continued (DME) wet wipes See Rx Instructions .ROUTE .MEDSUPPLY Qty: 5 3RF Rx Instructions: As directed levetiracetam 100 mg/mL solution 2.5 ml PO BID acetaminophen 325 mg Tablet 650 mg PO Q4H PRN (Reason: fever/pain) calcium carbonate-vitamin D3 600 mg-5 mcg (200 unit) Tablet 1 tab PO BID magnesium hydroxide [Milk of Magnesia] 400 mg/5 mL Suspension 30 ml PO DAILY PRN (Reason: No BM in 3 Days) Rx Instructions: (step 1) If no BM for 3 days Fleet Enema 19-7 gram/118 mL Enema 118 ml CO DAILY PRN (Reason: If no BM in 8 hours after use of Bisacodyl) Rx Instructions: (Step 3) If no BM 8 hours after Bisacodyl supp. magnesium citrate Solution 150 ml PO DAILY PRN (Reason: No BM in 12 hrs) Rx Instructions: (step 4) If no BM in 12 hours give 1 bottle ferrous sulfate 325 mg (65 mg iron) Tablet 325 mg PO DAILY multivitamin Tablet 1 tab PO DAILY psyllium Powder 1 ea PO BEDTIME Rx Instructions: mix into at least 8 oz of water or juice before administering simethicone 80 mg Tablet,Chewable 80 mg PO Q6H PRN (Reason: Abdominal Distention) acetaminophen [Tylenol] 325 mg Tablet 650 mg PO BEDTIME acetic acid 0.25 % Solution 50 ml IRRIGATION TUTHSA@2100 Rx Instructions: for urinary catheter flush oxycodone 5 mg tablet 5 mg PO Q6H potassium chloride 20 mEq/15 mL Liquid 40 meq PO DAILY vancomycin 125 mg Capsule 125 mg PO Q6H losartan 25 mg Tablet 25 mg PO DAILY 30 Days Qty: 30 3RF Protocol: Hold for SBP< HOLD for SBP < : 90 Xarelto 20 mg Tablet 20 mg PO DAILY@1700 30 Days Qty: 30 3RF gabapentin 300 mg capsule 300 mg PO BEDTIME 30 Days Qty: 30 0RF (DME) miscellaneous medical supply Misc See Rx Instructions .ROUTE .MEDSUPPLY Qty: 1 0RF Rx Instructions: RUE resting hand Splint/Sling As directed, Dx: G81.91, I67.89, duration 999 days/life time tamsulosin 0.4 mg capsule 0.4 mg PO BEDTIME 90 Days Qty: 90 1RF atorvastatin 80 mg tablet 80 mg PO BEDTIME ascorbic acid (vitamin C) 1,000 mg tablet 1,000 mg PO DAILY 90 Days Qty: 90 1RF methenamine hippurate 1 gram tablet 1 g PO daily 90 Days Qty: 90 1RF Discharge Orders: Discharge Order (Routine); Ordered 01/09/25 Ordered By: Demetri De La Paz Activity on Discharge: Puree; nectar thick liquids Stand Alone Forms: Patient Portal Discharge page Print Language: Hungarian Care Plan Goals: Nephrostomy tube changed 01/08/2025. Xarelto can be restarted in 48 hours if no bleeding from tube site or with in the drainage bag Health Concerns: Resume all medications as taken previous to hospital Plan of Treatment: As per receiving facility Assessment: See discharge summary
[2025-01-09 14:00] VITALS: BP 108/58; PULSE 79; RESP 18; TEMP 36.6; O2SAT 99
== END 2025-01-09 14:13 | disposition skilled nursing facility (03) | DRG 698 ==
LOC: HO.ED 20:47 → HO.EDOVER 23:46 → HO.S3 01-05 05:08
PROVIDERS: Family Medicine; Nurse Practitioner Family; Radiology Diagnostic Radiology; Admitting Provider Physician Assistant; Emergency Provider Emergency Medicine Emergency Medical Services; Visit Provider Hospitalist
PROC: 0T25X0Z Change Drainage Device in Kidney, External Approach (ICD-10-PCS; principal; 2025-01-08 13:00)
DX: N99.522 Malfunction of incontinent external stoma of urinary tract (principal); L89.154 Pressure ulcer of sacral region, stage 4; I69.351 Hemiplegia and hemiparesis following cerebral infarction affecting right dominant side; D62 Acute posthemorrhagic anemia; E87.20 Acidosis, unspecified; I48.0 Paroxysmal atrial fibrillation; G40.909 Epilepsy, unspecified, not intractable, without status epilepticus; D63.8 Anemia in other chronic diseases classified elsewhere; B18.2 Chronic viral hepatitis C; E78.5 Hyperlipidemia, unspecified; Z87.440 Personal history of urinary (tract) infections; Z79.01 Long term (current) use of anticoagulants; Z79.899 Other long term (current) drug therapy
CPT/HCPCS: 36415; 50435; 71045; 74176; 80048; 80053; 80076; 82272; 83605; 83690; 85025; 85027; 85610; 86850; 86900; 86901; 86923; 87040; 99285; J1938; J2003; J2250; J2470; J3010; J7120; P9016; Q9967

== ENCOUNTER → 2025-01-04 17:44 | Outpatient (BNV) | payer OTHER, SELFPAY | PROVIDERS: Emergency Provider Emergency Medicine Emergency Medical Services; Visit Provider Radiology Diagnostic Radiology | DX: Z93.6 Other artificial openings of urinary tract status (principal) | CPT/HCPCS: 71045; 74176 ==

== ENCOUNTER 2025-01-04 23:42 | Outpatient (BNV) | payer OTHER, SELFPAY | END 2025-01-08 16:16 | PROVIDERS: Admitting Provider Physician Assistant; Emergency Provider Emergency Medicine Emergency Medical Services; Visit Provider Radiology Diagnostic Radiology | DX: Z43.6 Encounter for attention to other artificial openings of urinary tract (principal) | CPT/HCPCS: 50435 ==

== ENCOUNTER → 2025-01-04 23:42 | Outpatient (BNV) | payer OTHER, SELFPAY | PROVIDERS: Admitting Provider Physician Assistant; Emergency Provider Emergency Medicine Emergency Medical Services; Visit Provider Physician Assistant | DX: T83.022A Displacement of nephrostomy catheter, initial encounter (principal); N28.9 Disorder of kidney and ureter, unspecified | CPT/HCPCS: 99232; 99233; 99239; 99499 ==